=== PATIENT | female | born 1980 | race Caucasian/White ===

== ENCOUNTER 2018-05-05 09:35 | Outpatient (CLI) | payer MEDICAID, SELFPAY ==
[2018-05-05 09:51] LABS: Abs Immature Grans 0.07 k/cumm (0.0-0.09); Absolute Basophil Count 0.02 k/cumm (0.0-0.2); Absolute Eosinophil Count 0.25 k/cumm (0.0-0.7); Absolute Monocyte Count 0.65 k/cumm (0.11-0.7); Absolute Neutrophil Count 5.65 k/cumm (1.2-6.7); Basophils % 0.2; Eosinophils % 2.7; HCT 42.4 % (36.0-46.0); HGB 14.7 g/dL (12.0-15.5); Immature Grans % 0.8; Lymphocytes % 28.1; Mean Corp. HGB Concentration 34.7 g/dL (32.0-36.0); Mean Corpuscular Volume 95.3 fL (80-95); Mean Platelet Volume 9.8 fL (8.0-11.0); Neutrophils % 61.2; Platelet Count 267 x1000/uL (130-400); RBC 4.45 m/cumm (4.00-5.20); White Blood Cell Count 9.24 k/cumm (4.4-10.8)
[2018-05-05 10:07] LABS: VALPROIC ACID 97.8 ug/mL (50-100)
[2018-05-05 10:08] LABS: ALT 95 U/L (12-78); AST 52 U/L (15-37); Albumin 3.3 g/dL (3.4-5.0); Alkaline Phosphatase 217 U/L (46-116); BUN 8 mg/dL (7-18); Bilirubin, Total 0.2 mg/dL (0.2-1.0); CREATININE 0.87 mg/dL (0.55-1.02); Calcium 8.4 mg/dL (8.5-10.1); Chloride 102 mmol/L (98-107); Glucose 296 mg/dL (70-100); Potassium 3.5 mmol/L (3.5-5.1); Sodium 136 mmol/L (136-145); Total Protein 7.1 g/dL (6.4-8.2)
== END 2018-05-05 09:36 ==
PROVIDERS: PCP Nurse Practitioner; Visit Provider Nurse Practitioner Psychiatric/Mental Health
DX: F25.0 Schizoaffective disorder, bipolar type (principal); Z51.81 Encounter for therapeutic drug level monitoring; Z79.899 Other long term (current) drug therapy
CPT/HCPCS: 36415; 80053; 80164; 85025

== ENCOUNTER 2018-05-24 22:39 | Emergency (ER) | payer MEDICAID, SELFPAY ==
[2018-05-24] VITALS (11 sets, daily range): BP systolic 120–140; BP diastolic 69–80; PULSE 83–111; RESP 13–33; TEMP 36.9; O2SAT 95–98
--- NOTE | 2018-05-24 22:52 | ED.GENADUL_ITS ---
Discharge Plan Disposition Patient Disposition: HOME Condition: Good Discharge Details Chief Complaint: Anxiety Clinical Impression: Anxiety, Schizoaffective disorder Primary Care Provider: Lidia Benson ED Provider: Sid Ash [facility] Meds and New Rx's Prescriptions: Continue aripiprazole [Abilify] 30 MG tablet 30 mg PO DAILY Qty: 30 RF: 5 venlafaxine [Effexor XR] 37.5 MG capsule,extended release 24hr 37.5 mg PO DAILY Qty: 30 RF: 5 pregabalin [Lyrica] 50 mg capsule 50 mg PO BID Qty: 60 RF: 5 levothyroxine 75 MCG tablet 75 mcg PO DAILY RF: 0 topiramate [Topamax] 50 MG tablet 100 mg PO DAILY AM RF: 0 divalproex [Depakote] 500 MG tablet,delayed release (DR/EC) 1,500 mg PO DAILY RF: 0 metformin 500 MG tablet 500 mg PO DAILY RF: 0 Discharge Instructions Additional Instructions: What was observed in the emergency department were not seizures. Your head CT and your laboratory studies and EKG were all fine. You were given Ativan for anxiety and seemed to be better. You should follow-up with your mental health providers and call tomorrow for appointment. Return to ED if problems. Referrals: Lidia Benson [Primary Care Provider] - Medical Decision Making MDM Narrative Medical decision making narrative: Patient with chief complaint of not feeling well. Other than headache, she is unable to tell me anything further. Was on the floor in the waiting room rolling around with what she apparently thinks is a seizure. This clearly was not a seizure. She does have a psychiatric history. She is not suicidal or homicidal. I am going to give her Ativan. I will go ahead and get EKG, labs, head CT and observe. I do not suspect that there is any organic pathology involved here. I think this is all psychiatric in nature. After the patient's blood was drawn she began to arch her back and push herself up on the stretcher. She tried to shake on the stretcher. I went in and told her to stop as these were not seizures. She immediately did stop and asked what they were. I said they appear to be related to anxiety and behavioral. Patient's EKG is normal. Patient's head CT has come back normal. Laboratory studies are unremarkable. Her liver functions are mildly elevated as they have been in the past. Patient is better with Ativan. I did offer to speak to her family but she declined. She is discharged home to follow-up with her mental health provider and primary care. Medical Records Medical records reviewed: Yes I reviewed the patient's medical records. Lab Data Lab results reviewed: Yes I reviewed the patient's lab results. ECG Data Attestation: I personally reviewed and interpreted this ECG (s) as follows: Interpretation: Normal sinus rhythm at 89. Normal axis and intervals. Normal ST segments. HPI - General Adult General Mode of arrival: wheelchair . Date/Time Provider Initiated Documentation: 05/24/18 22:42 . Limitations to Documentation: no limitations . Information obtained by: patient and old records reviewed . HPI Narrative: Patient presents to ED stating she does not feel right. Out in the waiting room, she fell to the floor and was rolling on the ground back-and- forth. People here with her felt that she was having a seizure. She does not have a history of seizures. On the camera, I was able to see her in the waiting room and did not witness seizure-like activity. She stopped when spoken to. She sat up in the wheelchair without difficulty. She has not been postictal at all. She did not bite her tongue. She was not incontinent of urine. She does have a long psychiatric history. She denies being suicidal or homicidal. She denies any drugs, prescription or illicit, today other than what she is supposed to take. She denies any injury or illness. She is not able to elaborate to me as to what does not feel right. The only thing that she physically complains of a headache. Related Data Home Medications Medication Instructions Recorded Confirmed levothyroxine 75 mcg PO DAILY 03/15/16 05/24/18 topiramate [Topamax] 100 mg PO DAILY AM 01/21/17 05/24/18 divalproex [Depakote] 1,500 mg PO DAILY 08/18/17 05/24/18 metformin 500 mg PO DAILY 09/20/17 05/24/18 Previous Rx's Medication Instructions Recorded aripiprazole [Abilify] 30 mg PO DAILY #30 tab-cap 11/29/17 venlafaxine [Effexor XR] 37.5 mg PO DAILY #30 tab-cap 04/10/18 pregabalin 50 mg capsule 50 mg PO BID #60 cap 05/22/18 Allergies Allergy/AdvReac Type Severity Reaction Status Date / Time codeine Allergy Mild Unverified 05/25/18 00:11 gabapentin AdvReac Mild RESTLESS Unverified 05/25/18 00:11 LEGS General Stated Complaint: Anxiety CECILIA: 3 Review of Systems Constitutional Denies chills, Denies fever(s), Reports headache(s) and Denies weakness Eyes Patient denies, Denies loss of vision and Denies eye pain ENT Denies otalgia, Reports headache(s) and Denies sore throat Cardiovascular Denies chest pain, Denies syncope, Denies pedal edema and Denies dyspnea Respiratory Denies cough and Denies dyspnea Gastrointestinal Denies abdominal pain, Denies diarrhea, Denies nausea and Denies vomiting Genitourinary Denies hematuria and Denies dysuria Musculoskeletal Denies back pain, Denies myalgias, Denies arthralgias and Denies numbness Integumentary/Breasts Denies erythema and Denies rash Neurologic Denies abnormal speech, Denies confusion, Denies syncope, Reports headache(s), Denies focal weakness, Denies loss of vision, Denies numbness and Denies weakness Psychiatric Denies confusion, Denies auditory hallucinations, Denies visual hallucinations, Denies homicidal ideation and Denies suicidal ideation PFSH Family History Mother Diabetes Father Heart disease Medical History Anovulatory bleeding Enteritis Schizoaffective disorder Type 2 diabetes mellitus Social History Smoking/Tobacco Use Status: Former Tobacco Use Surgical History Ligation of fallopian tube Exam Const General: cooperative and no acute distress Nutritional Appearance: obese Orientation: alert and oriented x3 HENMT Head: normocephalic, atraumatic, no hematomas and no lacerations Ears: external ears normal Face and sinus: normal facial exam Eyes Pupils: PERRL EOM: EOM intact bilaterally Resp Effort & Inspection: normal respiratory effort Auscultation: clear to auscultation bilaterally Cardio Rate: regular rate Rhythm: regular rhythm Heart Sounds: S1 normal and S2 normal Pulses: normal peripheral pulses GI Inspection: non-distended Palpation: soft, no guarding and nontender Skin Rashes: no rashes Trauma: no lacerations or abrasions Neuro General: alert, oriented x3, moves all extremities, no focal motor deficits and CN's II-XI intact bilaterally Sensory Exam: no sensory deficits noted Extrem General: normal to inspection, no clubbing, no cyanosis and no edema Psych Appearance: grossly normal Speech and Movement: speech and movement normal Attitude: cooperative Thought Process: normal Thought Content: normal Course Vital Signs Temperature 98.4 F 05/24/18 22:48 Pulse 96 H 05/24/18 22:48 Respiratory Rate 20 05/24/18 22:48 Blood Pressure 140/80 05/24/18 22:48 Pulse Oximetry 98 05/24/18 22:48 Temperature 98.4 F 05/24/18 22:48 Pulse 96 H 05/24/18 22:48 Respiratory Rate 20 05/24/18 22:48 Blood Pressure 140/80 05/24/18 22:48 Pulse Oximetry 98 05/24/18 22:48
[2018-05-24 23:02] LABS: Absolute Basophil Count 0.02 k/cumm (0.0-0.2); Absolute Eosinophil Count 0.16 k/cumm (0.0-0.7); Absolute Lymphocyte Count 3.35 k/cumm (1.2-3.4); Absolute Monocyte Count 0.65 k/cumm (0.11-0.7); Absolute Neutrophil Count 5.06 k/cumm (1.2-6.7); Basophils % 0.2; Eosinophils % 1.7; HCT 43.2 % (36.0-46.0); Immature Grans % 1.1; Lymphocytes % 35.9; Mean Corp. HGB Concentration 34.7 g/dL (32.0-36.0); Mean Corpuscular Hemoglobin 32.9 pg (27.0-33.0); Mean Corpuscular Volume 94.7 fL (80-95); Neutrophils % 54.1; Platelet Count 279 x1000/uL (130-400); RBC 4.56 m/cumm (4.00-5.20); RBC Distribution Width 11.9 % (11.7-14.6); White Blood Cell Count 9.34 k/cumm (4.4-10.8)
[2018-05-24] MEDS: LORazepam 1 MG TAB PO (23:12)
[2018-05-24 23:15] LABS: Bilirubin Negative (Negative); Blood Negative (Negative); Clarity Sl Cloudy; Glucose 500 mg/dL (Negative); Ketones 15 mg/dL (Negative); Leukocyte Esterase Negative (Negative); Nitrite Negative (Negative); Specific Gravity 1.025 (1.005-1.025); pH 6.5 (5-8)
[2018-05-24 23:15] LABS: ALT 88 U/L (12-78); AST 59 U/L (15-37); Albumin 3.4 g/dL (3.4-5.0); Alkaline Phosphatase 157 U/L (46-116); BUN 9 mg/dL (7-18); Bilirubin, Total 0.2 mg/dL (0.2-1.0); CREATININE 0.83 mg/dL (0.55-1.02); Calcium 8.5 mg/dL (8.5-10.1); Chloride 101 mmol/L (98-107); Glucose 222 mg/dL (70-100); Potassium 3.5 mmol/L (3.5-5.1); Sodium 138 mmol/L (136-145); Total Protein 7.6 g/dL (6.4-8.2); VALPROIC ACID 94.1 ug/mL (50-100)
--- NOTE | 2018-05-24 23:25 | DI.CT_ITS ---
SYMPTOM/DIAGNOSIS: HEADACHE NONCONTRAST HEAD CT: A noncontrast enhanced examination was performed. There is no evidence of an intra/extra-axial hemorrhage, mass or edema. The ventricles are normal. There is no skull fracture. The sinuses and mastoid air cells are normal. The soft tissues are normal. IMPRESSION: No evidence of an acute intracranial abnormality.
[2018-05-24 23:33] LABS: ETHANOL BLOOD < 3.0 mg/dL (<3)
[2018-05-24 23:40] LABS: *AMPHETAMINES SCREEN URINE Negative (Negative); *BARBITURATES SCREEN URINE Negative (Negative); *BENZODIAZEPINES SCREEN URINE Negative (Negative); Cannabinoids THC Negative (Negative); Cocaine Screen,Urine Negative (Negative); METHADONE URINE SCREEN Negative (Negative); OPIATES URINE SCREEN Negative (Negative)
[2018-05-24 23:43] LABS: Tricyclic Antidepressants Negative (Negative)
[2018-05-25] VITALS: PULSE 94; RESP 15; O2SAT 97
--- NOTE | 2018-05-25 00:05 | DI.VRAD_ITS ---
EXAM: CT Head Without Intravenous Contrast EXAM DATE/TIME: 05/24/2018 10:56 PM CLINICAL HISTORY: 37 years old, female; Pain; Headache; Headache not specified TECHNIQUE: Axial computed tomography images of the head/brain without intravenous contrast. All CT scans at this facility use at least one of these dose optimization techniques: automated exposure control; mA and/or kV adjustment per patient size (includes targeted exams where dose is matched to clinical indication); or iterative reconstruction. Coronal and sagittal reformatted images were created and reviewed. COMPARISON: No relevant prior studies available. FINDINGS: Brain: Normal. No hemorrhage. No significant white matter disease. No edema. Ventricles: Normal. No ventriculomegaly. Bones/joints: Normal. No acute fracture. Sinuses: Normal as visualized. No acute sinusitis. Mastoid air cells: Normal as visualized. No mastoid effusion. Soft tissues: Normal. IMPRESSION: No acute findings. Dictated and Authenticated by: Phil Watson MD. Ordering:SLY GARCIA MD
[2018-05-25 00:15] VITALS: TEMP 36.6
== END 2018-05-25 00:18 | disposition home or self-care (01) ==
PROVIDERS: Emergency Provider Emergency Medicine; PCP Nurse Practitioner
DX: F25.9 Schizoaffective disorder, unspecified (principal); F41.9 Anxiety disorder, unspecified; E11.9 Type 2 diabetes mellitus without complications; Z79.84 Long term (current) use of oral hypoglycemic drugs
CPT/HCPCS: 36415; 80053; 80307; 81025; 93005; 99285; 70450; 80164; 80320; 81003; 85025; 93010; 99284

== ENCOUNTER 2018-06-07 10:57 | Outpatient (CLI) | payer MEDICAID, SELFPAY ==
[2018-06-07 11:26] LABS: Platelet Count 262 x1000/uL (130-400)
[2018-06-07 11:27] LABS: VALPROIC ACID 52.8 ug/mL (50-100)
[2018-06-07 13:28] LABS: ALT 130 U/L (12-78); AST 175 U/L (15-37); Albumin 3.7 g/dL (3.4-5.0); Alkaline Phosphatase 200 U/L (46-116); Bilirubin, Direct 0.06 mg/dL (0.00-0.20); Bilirubin, Total 0.3 mg/dL (0.2-1.0); Total Protein 7.4 g/dL (6.4-8.2)
== END 2018-06-07 11:17 ==
PROVIDERS: PCP Nurse Practitioner; Visit Provider Nurse Practitioner
DX: F31.9 Bipolar disorder, unspecified (principal); F41.9 Anxiety disorder, unspecified; Z51.81 Encounter for therapeutic drug level monitoring; Z79.899 Other long term (current) drug therapy
CPT/HCPCS: 36415; 80076; 80164; 85049

== ENCOUNTER 2018-06-07 17:49 | Outpatient (REF) | payer MEDICAID, SELFPAY ==
[2018-06-07 19:57] LABS: COMMENT (LAB VIEW ONLY) 26.45 mg/dL; Microalb ug/mg Crea 9.1 ug/mg Cr
== END 2018-06-07 18:09 ==
LOC: NCHCN 17:49
PROVIDERS: PCP Nurse Practitioner; Visit Provider Nurse Practitioner
DX: E11.9 Type 2 diabetes mellitus without complications (principal)
CPT/HCPCS: 82043; 82570

== ENCOUNTER 2018-08-31 00:28 | Outpatient (CLI) | payer MEDICAID, SELFPAY ==
--- NOTE | 2018-08-31 09:30 | DI.MAMMO_ITS ---
SYMPTOM/DIAGNOSIS: LT BREAST PAIN, M64.4, ASYMMETRICAL BREASTS, N64.89 MAMMOGRAMS: Mammograms were interpreted according to the usual protocol including computer analysis with CAD system, tomosynthesis and C view imaging. The right breast tissue is of moderate radiodensity. There is no dominant mass. There are no suspicious calcifications. At the time the mammograms were performed, the work station was not operative and as an alternative maneuver, a right breast ultrasound was carried out to rule out the possibility of a gross lesion in this extremely anxious patient. The ultrasound report is dictated out separately. Evaluation of the left breast today with craniocaudad and mediolateral projections was carried out. An implant is noted in place. There is no definite evidence of an implant rupture. Only a portion of the implant is seen on today's examination. There is no dominant mass. There are no suspicious calcifications and nothing specific to suggest a malignancy. IMPRESSION: RIGHT BREAST: Category 2. Breast density, category B. Follow up surveillance with annual screening mammography is recommended. LEFT BREAST: Patient with a history of implant rupture with no evidence of extravasation or rupture on today's images. There is no evidence of a neoplasm. Category 2. Follow up surveillance with annual screening mammography is suggested. In terms of further evaluation of the status of the implant in this patient, further assessment with MRI would be of value. If recent or prior MRI's are extant,. then comparison with the previous study or studies is suggested as well. MQSA ASSESSMENT OF FINDINGS: Negative with benign findings. Category 2. Patient will receive a letter notifying them of these results. BI-RADS category B. There are scattered areas of fibroglandular density.
--- NOTE | 2018-08-31 09:42 | DI.US_ITS ---
SYMPTOM/DIAGNOSIS: LT BREAST PAIN, N64.4, FOCAL, MEDIAL AT 8 O'CLOCK. H/O DEFLATED LT BREAST SALINE IMPLANT ULTRASOUND LEFT BREAST: The examination was carried out according to the usual protocol. There are a number of small cysts involving the medial inferior segment of the breast. These include cysts measuring 5 x 3 mm and 3 x 4 mm and 5 x 5 mm. In addition, there is a 2 x 3 mm calcification lying between 8 and 8:30 in the inferomedial portion of the breast approximately 7 cm laterally and 5 cm inferiorly. Otherwise, the breast tissue is acoustically unremarkable. SUMMARY: There are small breast cysts and a small calcification is identified as described above. There is no definite evidence of a solid mass and nothing specific on the ultrasound examination to suggest a malignancy. This examination will be correlated with the follow up mammographic study with issuance of a separate report.
== END 2018-08-31 00:48 ==
PROVIDERS: PCP Nurse Practitioner; Visit Provider Nurse Practitioner
DX: N64.4 Mastodynia (principal); N60.12 Diffuse cystic mastopathy of left breast; N64.89 Other specified disorders of breast; Z98.82 Breast implant status
CPT/HCPCS: 76642; 77062; 77066; G0279

== ENCOUNTER 2018-08-31 20:39 | Emergency (ER) | payer MEDICAID, SELFPAY ==
[2018-08-31 20:55] VITALS: BP 97/83; PULSE 94; RESP 16; TEMP 36.6; O2SAT 96
--- NOTE | 2018-08-31 21:07 | ED.GENADUL_ITS ---
Discharge Plan Disposition Patient Disposition: HOME Condition: Good Discharge Details Chief Complaint: Suicide-Atempt Clinical Impression: Adjustment disorder Primary Care Provider: Lidia Benson ED Provider: Sid Ash [place] Meds and New Rx's Prescriptions: Continued aripiprazole [Abilify] 30 MG tablet 30 mg PO DAILY Qty: 30 RF: 5 Lyrica 50 mg capsule 50 mg PO BID Qty: 60 RF: 5 levothyroxine 75 MCG tablet 75 mcg PO DAILY RF: 0 divalproex [Depakote] 500 MG tablet,delayed release (DR/EC) 1,500 mg PO DAILY RF: 0 metformin 500 MG tablet 500 mg PO DAILY RF: 0 Discharge Instructions Additional Instructions: Please stay with your friend amber. Follow-up with mental health in the morning. Return to ED for any unsafe feelings or concerns. Referrals: [facility] [Provider Group] Medical Decision Making Patient here for mental health evaluation. She has no abrasions or lacerations from trying to cut herself. She denies any ingestions. She does not appear to be intoxicated and has a normal mental status. She states that she got overwhelmed not depressed. She will not answer me whether she is still suicidal or not, says that it is complicated. We will have mental health evaluate. She has a patient observer signed and is on suicide precautions. Will check EKG and laboratory studies including a Depakote level to see whether she is taking or not. Patient's laboratory studies are unremarkable. Her blood sugar is a little high at 277. Liver function baseline. Tylenol and aspirin negative. Alcohol negative. Valproic acid level a little bit high at 116. EKG is sinus rhythm with normal axis and intervals and no prolonged QT. She has been evaluated by mental health. She is reporting that she is no longer suicidal. She feels safe. Plan will be for discharge to stay with a friend amber. Follow-up with mental health in the morning. Return to ED for any unsafe feelings or problems. Lab Data Lab results reviewed: Yes I reviewed the patient's lab results. ECG Data Attestation: I personally reviewed and interpreted this ECG (s) as follows: Prior ECG tracings: available for review Interpretation: Sinus rhythm at 84. No change from previous. Normal axis and intervals. HPI General Mode of arrival: ambulatory . Date/Time Provider Initiated Documentation: 08/31/18 21:05 . Limitations to Documentation: no limitations . Information obtained by: patient . HPI Narrative: Patient presents to the ED for mental health evaluation. She has a known mental health problem but has been relatively stable for the last few months. She had a good holiday. However, today she became overwhelmed and feels suicidal. She tried cutting her wrists with a very dull knife. She denies any ingestions. She denies drugs or alcohol. She has no physical complaints of. Mental health actually notified us of her coming in and is already here to see her. Related Data Home Medications Medication Instructions Recorded Confirmed levothyroxine 75 mcg PO DAILY 03/15/16 08/31/18 divalproex [Depakote] 1,500 mg PO DAILY 08/18/17 08/31/18 metformin 500 mg PO DAILY 09/20/17 08/31/18 aripiprazole [Abilify] 30 mg PO DAILY #30 tab-cap 11/29/17 08/31/18 pregabalin 50 mg capsule 50 mg PO BID #60 cap 05/22/18 08/31/18 Previous Rx's Medication Instructions Recorded aripiprazole [Abilify] 30 mg PO DAILY #30 tab-cap 11/29/17 pregabalin 50 mg capsule 50 mg PO BID #60 cap 05/22/18 Allergies Allergy/AdvReac Type Severity Reaction Status Date / Time codeine Allergy Mild Unverified 05/25/18 00:11 gabapentin AdvReac Mild RESTLESS Unverified 05/25/18 00:11 LEGS General Stated Complaint: Recheck CECILIA: 2 Review of Systems Constitutional Denies chills, Denies fever(s) and Denies headache(s) ENT Denies otalgia, Denies facial pain, Denies headache(s), Denies neck pain and Denies sore throat Cardiovascular Denies chest pain, Denies syncope, Denies palpitations and Denies dyspnea Respiratory Denies cough and Denies dyspnea Gastrointestinal Denies abdominal pain, Denies diarrhea, Denies nausea and Denies vomiting Genitourinary Denies dysuria and Denies pelvic pain Musculoskeletal Denies back pain, Denies neck pain and Denies numbness Integumentary/Breasts Denies rash Neurologic Denies confusion, Denies syncope, Denies headache(s) and Denies numbness Psychiatric Denies confusion, Reports depression, Denies hallucinations and Reports suicidal ideation Endocrine Denies palpitations [facility] Medical History Anovulatory bleeding Enteritis Schizoaffective disorder Type 2 diabetes mellitus Surgical History Ligation of fallopian tube Family History Mother Diabetes Father Heart disease Social History Smoking/Tobacco Use Status: Current every day Exam Const General: cooperative and no acute distress Orientation: alert and oriented x3 HENMT Head: normocephalic and atraumatic Mouth: moist mucous membranes Neck Neck: trachea midline and supple Resp Effort & Inspection: normal respiratory effort Auscultation: clear to auscultation bilaterally Cardio Rate: regular rate Rhythm: regular rhythm Heart Sounds: S1 normal and S2 normal GI Inspection: normal to inspection and non-distended Palpation: soft and nontender Skin General skin exam: no rashes or lesions noted Neuro General: alert, oriented x3, no focal motor deficits and CN's II-XI intact bilaterally Extrem General: no clubbing, cyanosis or edema Psych Appearance: grossly normal Mental Status: mental status grossly normal Speech and Movement: speech and movement normal Mood: dysthymic mood Affect: blunted Attitude: cooperative Thought Process: normal Thought Content: suicidality Course Vital Signs Temperature 97.8 F 08/31/18 20:55 Pulse 94 H 08/31/18 20:55 Respiratory Rate 16 08/31/18 20:55 Blood Pressure 97/83 L 08/31/18 20:55 Pulse Oximetry 96 08/31/18 20:55 Temperature 97.8 F 08/31/18 20:55 Temperature Source Temporal Artery Scan 08/31/18 20:55 Pulse 94 H 08/31/18 20:55 Respiratory Rate 16 08/31/18 20:55 Respiratory Effort 08/31/18 20:55 Blood Pressure 97/83 L 08/31/18 20:55 Pulse Oximetry 96 08/31/18 20:55 Oxygen Delivery Method Room Air 08/31/18 20:55 Oxygen Flow Rate 0 08/31/18 20:55 Pain Level 0 08/31/18 20:55
[2018-08-31 21:48] LABS: HCT 43.6 % (36.0-46.0); HGB 15.1 g/dL (12.0-15.5); Mean Corp. HGB Concentration 34.6 g/dL (32.0-36.0); Mean Corpuscular Hemoglobin 33.8 pg (27.0-33.0); Mean Corpuscular Volume 97.5 fL (80-95); Mean Platelet Volume 9.7 fL (8.0-11.0); Platelet Count 276 x1000/uL (130-400); RBC 4.47 m/cumm (4.00-5.20); RBC Distribution Width 12.1 % (11.7-14.6); White Blood Cell Count 9.36 k/cumm (4.4-10.8)
[2018-08-31 21:52] LABS: VALPROIC ACID 116.4 ug/mL (50-100)
[2018-08-31 21:54] LABS: ALT 101 U/L (12-78); AST 36 U/L (15-37); Albumin 3.3 g/dL (3.4-5.0); Alkaline Phosphatase 229 U/L (46-116); Anion Gap 12.3 mmol/L (3-11); BUN 16 mg/dL (7-18); Bilirubin, Total 0.2 mg/dL (0.2-1.0); CO2 26.7 mmol/L (21.0-32.0); CREATININE 0.65 mg/dL (0.55-1.02); Calcium 9.1 mg/dL (8.5-10.1); Chloride 97 mmol/L (98-107); Glucose 277 mg/dL (70-100); Potassium 3.7 mmol/L (3.5-5.1); Sodium 136 mmol/L (136-145); Total Protein 7.3 g/dL (6.4-8.2)
[2018-08-31 22:00] LABS: Salicylate 2.9 mg/dL (2.8-20.0)
[2018-08-31 22:06] LABS: Acetaminophen < 2 ug/mL (10-30)
[2018-08-31 22:08] LABS: ETHANOL BLOOD < 3.0 mg/dL (<3)
--- NOTE | 2018-08-31 22:59 | PDOC.MHCN ---
Mental Health Crisis Note Presenting Issue How did you arrive at the ED and why did you come: Patient's sister drives her to the ER because patient is suicidal. Precipitating Factors Patient reports feeling better once at the hospital. She states she was feeling suicidal while at her apartment but is unable to identify a trigger. She reports having people around is helpful to her and after being at [facility] for a couple of hours, she reports no longer being suicidal. Disposition BEHAVIOR: Cooperative. EYE CONTACT: Good. MOOD: Depressed. AFFECT: Flat. APPETITE: Reported as poor. SLEEP(trouble falling/staying asleep: Good, per patient. Plan After consulting with Dr. Ash, the decision is made to discharge patient home. Patient contracts for safety and agrees to spend the remainder of the night with her neighbor, so he can keep her company and watch over her. Both patient and her neighbor know how to contact [facility] emergency services and they will call as needed. Patient's MANAGER PRINT case planner will follow-up with her in the morning.
--- NOTE | 2018-08-31 23:06 | PDOC.MHCN_ITS ---
Mental Health Crisis Note Presenting Issue How did you arrive at the ED and why did you come: Patient's sister drives her to the ER because patient is suicidal. Precipitating Factors Patient reports feeling better once at the hospital. She states she was feeling suicidal while at her apartment but is unable to identify a trigger. She reports having people around is helpful to her and after being at [facility] for a couple of hours, she reports no longer being suicidal. Disposition BEHAVIOR: Cooperative. EYE CONTACT: Good. MOOD: Depressed. AFFECT: Flat. APPETITE: Reported as poor. SLEEP(trouble falling/staying asleep: Good, per patient. Plan After consulting with Dr. Ash, the decision is made to discharge patient home. Patient contracts for safety and agrees to spend the remainder of the night with her neighbor, so he can keep her company and watch over her. Both patient and her neighbor know how to contact [facility] emergency services and they will call as needed. Patient's MAIL CLERK clinical case manager will follow-up with her in the morning.
[2018-08-31 23:15] VITALS: BP 122/68; PULSE 91; RESP 16; O2SAT 97
[2018-08-31 23:25] LABS: *AMPHETAMINES SCREEN URINE Negative (Negative); *BARBITURATES SCREEN URINE Negative (Negative); *BENZODIAZEPINES SCREEN URINE Negative (Negative); Cannabinoids THC Negative (Negative); Cocaine Screen,Urine Negative (Negative); METHADONE URINE SCREEN Negative (Negative); OPIATES URINE SCREEN Negative (Negative)
[2018-08-31 23:30] LABS: Tricyclic Antidepressants Negative (Negative)
== END 2018-08-31 23:13 | disposition home or self-care (01) ==
PROVIDERS: Emergency Provider Emergency Medicine; PCP Nurse Practitioner
DX: F43.20 Adjustment disorder, unspecified (principal); R45.851 Suicidal ideations; F25.9 Schizoaffective disorder, unspecified; E11.9 Type 2 diabetes mellitus without complications; Z79.84 Long term (current) use of oral hypoglycemic drugs
CPT/HCPCS: 80053; 80307; 85027; 93005; 99285; 80164; 80320; 80329; 93010; 99284

== ENCOUNTER 2018-10-21 17:43 | Emergency (ER) | payer MEDICAID, SELFPAY ==
[2018-10-21 17:47] VITALS: BP 142/77; PULSE 102; RESP 16; TEMP 36.8; O2SAT 98
[2018-10-21 19:08] LABS: Abs Immature Grans 0.09 k/cumm (0.0-0.09); Absolute Basophil Count 0.04 k/cumm (0.0-0.2); Absolute Eosinophil Count 0.24 k/cumm (0.0-0.7); Absolute Lymphocyte Count 3.32 k/cumm (1.2-3.4); Absolute Monocyte Count 0.64 k/cumm (0.11-0.7); Basophils % 0.4; Eosinophils % 2.3; HCT 46.2 % (36.0-46.0); HGB 15.8 g/dL (12.0-15.5); Immature Grans % 0.9; Lymphocytes % 31.8; Mean Corp. HGB Concentration 34.2 g/dL (32.0-36.0); Mean Corpuscular Hemoglobin 32.6 pg (27.0-33.0); Mean Corpuscular Volume 95.5 fL (80-95); Mean Platelet Volume 9.6 fL (8.0-11.0); Monocytes % 6.1; Neutrophils % 58.5; Platelet Count 260 x1000/uL (130-400); RBC 4.84 m/cumm (4.00-5.20); RBC Distribution Width 12.1 % (11.7-14.6); White Blood Cell Count 10.43 k/cumm (4.4-10.8)
[2018-10-21 19:12] LABS: Mono Screening Negative (Negative)
[2018-10-21 19:23] LABS: Bilirubin Negative (Negative); Blood Negative (Negative); Clarity Clear; Glucose >=1000 mg/dL (Negative); Ketones 40 mg/dL (Negative); Leukocyte Esterase Negative (Negative); Nitrite Negative (Negative); Urobilinogen 0.2 EU/dL (Up TO 0.2)
[2018-10-21 19:28] LABS: ALT 65 U/L (12-78); AST 17 U/L (15-37); Albumin 3.2 g/dL (3.4-5.0); Alkaline Phosphatase 165 U/L (46-116); Anion Gap 9.9 mmol/L (3-11); BUN 18 mg/dL (7-18); Bilirubin, Total 0.1 mg/dL (0.2-1.0); CO2 27.1 mmol/L (21.0-32.0); CREATININE 0.78 mg/dL (0.55-1.02); Calcium 9.4 mg/dL (8.5-10.1); Chloride 99 mmol/L (98-107); Glucose 248 mg/dL (70-100); Potassium 3.7 mmol/L (3.5-5.1); Sodium 136 mmol/L (136-145); Total Protein 7.6 g/dL (6.4-8.2)
[2018-10-21 19:57] LABS: TSH (W/Ref FT4) 3.11 uIU/mL (0.358-3.74)
--- NOTE | 2018-10-21 20:08 | W.ED.GENAD ---
Discharge Plan Disposition Patient Disposition: HOME Condition: Stable Discharge Details Chief Complaint: GenMedical Clinical Impression: Fatigue, Hyperglycemia due to type 2 diabetes mellitus Primary Care Provider: Lidia Benson ED Provider: Vishal Durán Home Meds and New Rx's Prescriptions: No Action aripiprazole [Abilify] 30 MG tablet 30 mg PO DAILY Qty: 30 RF: 5 Lyrica 50 mg capsule 50 mg PO BID Qty: 60 RF: 5 levothyroxine 75 MCG tablet 75 mcg PO DAILY RF: 0 divalproex [Depakote] 500 MG tablet,delayed release (DR/EC) 1,500 mg PO DAILY RF: 0 metformin 500 MG tablet 500 mg PO DAILY RF: 0 Discharge Instructions Instructions: Fatigue (ED), Diabetic Hyperglycemia (ED) Additional Instructions: Return to the emergency department if you have any new or worsening symptoms otherwise continue to take your medications, avoid sugary foods, and follow-up with your primary care provider within the next week for reassessment. Referrals: Lidia Besnon [Primary Care Provider] - 1 week (For reassessment of fatigue along with any possible medication adjustments as needed) Discharge Data Discharge Date/Time-TO BE ENTERED AT DEPARTURE: 10/21/18 20:34 Medical Decision Making Patient presenting to the emergency department for chief complaint of excess fatigue and sleepiness over the past 2 weeks. Patient denies any pain or discomfort, cold symptoms, hot and cold intolerance, change in diet or medications. Patient does state that she has thyroid issues but her medication has been at a stable level for a while. Physical exam is unremarkable and patient does not appear overly sedate, no neurological findings, normal cardiac exam, normal thyroid. Given patient's history of diabetes and thyroid issue I do feel the labs are warranted but no immediate interventions are needed at this time Reviewed labs and shows no signs of anemia, elevated blood glucose which appears to be at patient's baseline running in the 200s, urine ketones and glucose, no elevation of anion gap or signs of dehydration, within normal limits of thyroid. I feel that all these are reassuring but that patient may need tighter control of blood glucose so patient was encouraged to follow-up with her primary care provider for reassessment and discussion on any medication adjustments as needed. I see no emergent signs of life-threatening illness but return precautions were thoroughly discussed with patient. After discussion of diagnosis and plan of care patient has no further needs, questions, or concerns and states clear understanding to return to the emergency department for any worsening symptoms. HPI General Mode of arrival: ambulatory. Date/Time Provider Initiated Documentation: 10/21/18 17:51. Limitations to Documentation: no limitations. Information obtained by: RN notes reviewed. History of Present Illness 38 year old F presents to the emergency department with the chief complaint of Fatigue, Quality is described as other (Denies pain), Patient started experiencing this week(s) (2) Patient notes no other symptoms.. Patient did receive the following treatments prior to arrival, none Related Data Home Medications Medication Instructions Recorded Confirmed levothyroxine 75 mcg PO DAILY 03/15/16 08/31/18 divalproex [Depakote] 1,500 mg PO DAILY 08/18/17 08/31/18 metformin 500 mg PO DAILY 09/20/17 08/31/18 aripiprazole [Abilify] 30 mg PO DAILY #30 tab-cap 11/29/17 08/31/18 pregabalin 50 mg capsule 50 mg PO BID #60 cap 05/22/18 08/31/18 Previous Rx's Medication Instructions Recorded aripiprazole [Abilify] 30 mg PO DAILY #30 tab-cap 11/29/17 pregabalin 50 mg capsule 50 mg PO BID #60 cap 05/22/18 Allergies Allergy/AdvReac Type Severity Reaction Status Date / Time codeine Allergy Mild Unverified 05/25/18 00:11 gabapentin AdvReac Mild RESTLESS Unverified 05/25/18 00:11 LEGS General Stated Complaint: GenMedical CECILIA: 5 Review of Systems Constitutional Denies body ache(s), Denies chills, Reports daytime sleepiness, Reports fatigue, Denies fever(s) and Denies headache(s) ENT Denies headache(s) Cardiovascular Denies chest pain, Denies palpitations and Denies dyspnea Respiratory Denies dyspnea Gastrointestinal Denies abdominal pain, Denies nausea and Denies vomiting Integumentary/Breasts Denies rash Neurologic Denies confusion, Denies headache(s), Denies lack of coordination and Denies sensory deficit Psychiatric Denies confusion Endocrine Denies cold intolerance, Reports fatigue, Denies heat intolerance, Denies polyphagia, Denies polydipsia, Reports polyuria and Denies palpitations [facility] Medical History Anovulatory bleeding Enteritis Schizoaffective disorder Type 2 diabetes mellitus Surgical History Ligation of fallopian tube Family History Mother Diabetes Father Heart disease Social History Smoking and Tabacco status: Current every day Exam Const General: cooperative, no acute distress and not ill appearing Orientation: alert, awake and oriented x3 HENMT Mouth: moist mucous membranes Eyes General: appearance normal, both eyes and all related structures Pupils: PERRL Neck Neck: normal visual inspection, full ROM, no lymphadenopathy, no meningeal signs, trachea midline and supple Thyroid: thyroid normal Resp Effort & Inspection: normal respiratory effort, able to speak in complete sentences and no respiratory distress Auscultation: clear to auscultation bilaterally Cardio Rate: regular rate Rhythm: regular rhythm Heart Sounds: S1 normal and S2 normal Skin General skin exam: no rashes or lesions noted Neuro General: alert, awake, oriented x3, gait normal, tone normal, moves all extremities, normal light touch, pain and propioception, no focal motor deficits, CN's II-XI intact bilaterally, not confused and not obtunded Sensory Exam: no sensory deficits noted Course Vital Signs Temperature 36.8 C 10/21/18 17:47 Pulse 102 H 10/21/18 17:47 Respiratory Rate 16 10/21/18 17:47 Blood Pressure 142/77 H 10/21/18 17:47 Pulse Oximetry 98 10/21/18 17:47 Temperature 36.8 C 10/21/18 17:47 Pulse 102 H 10/21/18 17:47 Respiratory Rate 16 10/21/18 17:47 Respiratory Effort 10/21/18 17:47 Blood Pressure 142/77 H 10/21/18 17:47 Blood Pressure Position Sitting 10/21/18 17:47 Pulse Oximetry 98 10/21/18 17:47 Oxygen Delivery Method Room Air 10/21/18 17:47 Oxygen Flow Rate 0 10/21/18 17:47 Lab/Test Results Lab/Test Results: Laboratory Tests Range/Units 10/21/18 10/21/18 10/21/18 19:00 19:00 19:00 WBC (4.4-10.8) k/cumm 10.43 RBC (4.00-5.20) m/cumm 4.84 Hgb (12.0-15.5) g/dL 15.8 H Hct (36.0-46.0) % 46.2 H MCV (80-95) fL 95.5 H MCH (27.0-33.0) pg 32.6 MCHC (32.0-36.0) g/dL 34.2 RDW (11.7-14.6) % 12.1 Plt Count (130-400) x1000/uL 260 MPV (8.0-11.0) fL 9.6 Immature Gran % 0.9 Neutrophils % 58.5 Lymphocytes % 31.8 Monocytes % 6.1 Eosinophils % 2.3 Basophils % 0.4 Absolute Neutrophils (1.2-6.7) k/cumm 6.10 Absolute Lymphocytes (1.2-3.4) k/cumm 3.32 Absolute Monocytes (0.11-0.7) k/cumm 0.64 Absolute Eosinophils (0.0-0.7) k/cumm 0.24 Absolute Basophils (0.0-0.2) k/cumm 0.04 Sodium (136-145) mmol/L 136 Potassium (3.5-5.1) mmol/L 3.7 Chloride (98-107) mmol/L 99 Carbon Dioxide (21.0-32.0) mmol/L 27.1 Anion Gap (3-11) mmol/L 9.9 BUN (7-18) mg/dL 18 Creatinine (0.55-1.02) mg/dL 0.78 Estimated GFR/1.73 m2 (mL/min/1.73m2) >= 60.00 Glucose (70-100) mg/dL 248 H Calcium (8.5-10.1) mg/dL 9.4 Total Bilirubin (0.2-1.0) mg/dL 0.1 L AST (15-37) U/L 17 ALT (12-78) U/L 65 Alkaline Phosphatase (46-116) U/L 165 H Total Protein (6.4-8.2) g/dL 7.6 Albumin (3.4-5.0) g/dL 3.2 L TSH (0.358-3.74) uIU/mL 3.11 Urine Color (Yellow) Urine Clarity Urine pH (5-8) Ur Specific [place] (1.005-1.025) Urine Protein (Negative) mg/dL Urine Ketones (Negative) mg/dL Urine Blood (Negative) Urine Nitrite (Negative) Urine Bilirubin (Negative) Urine Urobilinogen (Up TO 0.2) EU/dL Ur Leukocyte Esterase (Negative) Urine Glucose (Negative) mg/dL Monoscreen (Negative) Negative Range/Units 10/21/18 19:08 WBC (4.4-10.8) k/cumm RBC (4.00-5.20) m/cumm Hgb (12.0-15.5) g/dL Hct (36.0-46.0) % MCV (80-95) fL MCH (27.0-33.0) pg MCHC (32.0-36.0) g/dL RDW (11.7-14.6) % Plt Count (130-400) x1000/uL MPV (8.0-11.0) fL Immature Gran % Neutrophils % Lymphocytes % Monocytes % Eosinophils % Basophils % Absolute Neutrophils (1.2-6.7) k/cumm Absolute Lymphocytes (1.2-3.4) k/cumm Absolute Monocytes (0.11-0.7) k/cumm Absolute Eosinophils (0.0-0.7) k/cumm Absolute Basophils (0.0-0.2) k/cumm Sodium (136-145) mmol/L Potassium (3.5-5.1) mmol/L Chloride (98-107) mmol/L Carbon Dioxide (21.0-32.0) mmol/L Anion Gap (3-11) mmol/L BUN (7-18) mg/dL Creatinine (0.55-1.02) mg/dL Estimated GFR/1.73 m2 (mL/min/1.73m2) Glucose (70-100) mg/dL Calcium (8.5-10.1) mg/dL Total Bilirubin (0.2-1.0) mg/dL AST (15-37) U/L ALT (12-78) U/L Alkaline Phosphatase (46-116) U/L Total Protein (6.4-8.2) g/dL Albumin (3.4-5.0) g/dL TSH (0.358-3.74) uIU/mL Urine Color (Yellow) Yellow Urine Clarity Clear Urine pH (5-8) 6.0 Ur Specific [place] (1.005-1.025) 1.010 Urine Protein (Negative) mg/dL Negative Urine Ketones (Negative) mg/dL 40 H Urine Blood (Negative) Negative Urine Nitrite (Negative) Negative Urine Bilirubin (Negative) Negative Urine Urobilinogen (Up TO 0.2) EU/dL 0.2 Ur Leukocyte Esterase (Negative) Negative Urine Glucose (Negative) mg/dL >=1000 H Monoscreen (Negative)
[2018-10-21 20:23] LABS: HCG Qual (Urine) Negative
== END 2018-10-21 20:34 | disposition home or self-care (01) ==
PROVIDERS: Emergency Provider Nurse Practitioner Family; PCP Nurse Practitioner
DX: R53.83 Other fatigue (principal); E11.65 Type 2 diabetes mellitus with hyperglycemia; Z79.84 Long term (current) use of oral hypoglycemic drugs
CPT/HCPCS: 36415; 80053; 99283; 81003; 81025; 84443; 85025; 86308

== ENCOUNTER 2018-10-24 12:49 | Outpatient (CLI) | payer MEDICAID, SELFPAY ==
[2018-10-24 13:39] LABS: VALPROIC ACID 141.6 ug/mL (50-100)
[2018-10-24 14:17] LABS: ALT 68 U/L (12-78); AST 41 U/L (15-37); Albumin 3.4 g/dL (3.4-5.0); Alkaline Phosphatase 148 U/L (46-116); Bilirubin, Direct 0.06 mg/dL (0.00-0.20); Bilirubin, Total 0.2 mg/dL (0.2-1.0); Total Protein 7.7 g/dL (6.4-8.2)
[2018-10-24 14:27] LABS: Cholesterol 247 mg/dL (50-200); Triglyceride 505 mg/dL (30-150)
== END 2018-10-24 13:09 ==
PROVIDERS: Physician Assistant Medical; PCP Nurse Practitioner; Visit Provider Nurse Practitioner
DX: F25.9 Schizoaffective disorder, unspecified (principal); Z51.81 Encounter for therapeutic drug level monitoring; Z79.899 Other long term (current) drug therapy
CPT/HCPCS: 36415; 80076; 80164; 82465; 84478

== ENCOUNTER 2018-11-12 01:12 | Emergency (ER) | payer MEDICAID, SELFPAY ==
[2018-11-12 01:20] VITALS: BP 142/77; PULSE 102; RESP 15; TEMP 36.9; O2SAT 98
--- NOTE | 2018-11-12 01:22 | W.ED.GENAD ---
Discharge Plan Disposition Patient Disposition: HOME Condition: Stable Discharge Details Chief Complaint: Laceration Clinical Impression: Laceration of internal mouth Primary Care Provider: Lidia Benson ED Provider: Matthew Chicas Home Meds and New Rx's Prescriptions: New clindamycin HCl 150 mg capsule 450 mg PO TID 10 Days Qty: 90 RF: 0 No Action Jardiance 25 mg tablet 25 mg PO DAILY RF: 0 gabapentin 300 mg capsule 300 mg PO QHS RF: 0 Lyrica 100 mg capsule 100 mg PO BID Qty: 60 RF: 5 aripiprazole [Abilify] 30 MG tablet 30 mg PO DAILY Qty: 30 RF: 5 levothyroxine 75 MCG tablet 75 mcg PO DAILY RF: 0 divalproex [Depakote] 500 mg tablet,delayed release (DR/EC) 2,000 mg PO DAILY RF: 0 Discharge Instructions Additional Instructions: Because you caused the wound over a day ago sutures were not placed due to the risk of infection for the next week only eat soft foods and protein shakes such as ensure you can take 1000mg tylenol and 600mg ibuprofen for pain as needed have the wound rechecked by your primary care provider in 2 weeks if you feel you are having severe worsening pain, fevers or inability to swallow liquids return to the emergency department Medical Decision Making 38 yo female wih hx of schizophrenia comes in with cc of mouth laceration. She states 2 days ago she got a utensil stuck in a piece of dental hardware she's had for awhile. She pulled to try and get the utensil out and caused a laceration to the left upper roof of her mouth laceration about 2.5cm in length. It is unclear why she finally came in tonight rather than when it happened. There is granulation tissue, no discharge from the wound or other signs of infection. Is not near the posterior pharynx where I feel CTA to eval for carotid injury indicated. Will start her on prophylactic abx. She has had the wound for 2 days so do not feel closure with sutures indicated given risk of infection. Will have her f/u with pcp and return precautions given Differential Diagnosis mouth laceration HPI General Mode of arrival: ambulatory. Date/Time Provider Initiated Documentation: 11/12/18 01:21. Limitations to Documentation: no limitations. Information obtained by: patient. History of Present Illness 38 year old F presents to the emergency department with the chief complaint of mouth laceration, described as moderate, and is localized to the mouth. Patient reports no radiation. Patient started experiencing this day(s) (2) and it has been constant. No relieving factors improve symptom(s), No exacerbating factors reported . Patient notes no other symptoms.. Patient did receive the following treatments prior to arrival, none Related Data Home Medications Medication Instructions Recorded Confirmed levothyroxine 75 mcg PO DAILY 03/15/16 11/12/18 aripiprazole [Abilify] 30 mg PO DAILY #30 tab-cap 11/29/17 11/12/18 divalproex 500 mg tablet,delayed 2,000 mg PO DAILY tab 10/25/18 11/12/18 release empagliflozin 25 mg tablet 25 mg PO DAILY 10/25/18 11/12/18 gabapentin 300 mg capsule 300 mg PO QHS cap 10/25/18 11/12/18 pregabalin 100 mg capsule 100 mg PO BID #60 cap 10/25/18 11/12/18 clindamycin HCl 450 mg PO TID 10 Days #90 cap 11/12/18 Previous Rx's Medication Instructions Recorded aripiprazole [Abilify] 30 mg PO DAILY #30 tab-cap 11/29/17 pregabalin 100 mg capsule 100 mg PO BID #60 cap 10/25/18 clindamycin HCl 450 mg PO TID 10 Days #90 cap 11/12/18 Allergies Allergy/AdvReac Type Severity Reaction Status Date / Time codeine Allergy Mild Unverified 11/12/18 01:27 gabapentin AdvReac Mild RESTLESS Unverified 11/12/18 01:27 LEGS General CECILIA: 5 Review of Systems Review of Systems All systems reviewed & are unremarkable except as noted in HPI and below Constitutional Denies chills and Denies fever(s) ENT Denies change in voice Cardiovascular Denies chest pain and Denies dyspnea Respiratory Denies cough and Denies dyspnea Gastrointestinal Denies abdominal pain, Denies nausea and Denies vomiting Genitourinary Denies dysuria Musculoskeletal Denies joint swelling Integumentary/Breasts Denies rash Endocrine Denies heat intolerance [facility] Medical History Anovulatory bleeding Enteritis Schizoaffective disorder Type 2 diabetes mellitus Surgical History Ligation of fallopian tube Social History number of children: 2 Smoking and Tabacco status: Current every day alcohol intake: never Exam Const General: no acute distress Orientation: alert HENMT Head: normal to inspection Ears: external ears normal General nose exam: external nose normal Mouth: moist mucous membranes Eyes General: appearance normal, both eyes and all related structures Neck Neck: normal visual inspection Resp Effort & Inspection: normal respiratory effort and able to speak in complete sentences Cardio Rate: regular rate Skin General skin exam: no rashes or lesions noted Neuro General: alert and oriented x3 Extrem General: normal to inspection Psych Mental Status: mental status grossly normal
--- NOTE | 2018-11-12 01:30 | ED.GENADUL_ITS ---
Discharge Plan Disposition Patient Disposition: HOME Condition: Stable Discharge Details Chief Complaint: Laceration Clinical Impression: Laceration of internal mouth Primary Care Provider: Lidia Benson ED Provider: Matthew Chicas Home Meds and New Rx's Prescriptions: New clindamycin HCl 150 mg capsule 450 mg PO TID 10 Days Qty: 90 RF: 0 No Action Jardiance 25 mg tablet 25 mg PO DAILY RF: 0 gabapentin 300 mg capsule 300 mg PO QHS RF: 0 Lyrica 100 mg capsule 100 mg PO BID Qty: 60 RF: 5 aripiprazole [Abilify] 30 MG tablet 30 mg PO DAILY Qty: 30 RF: 5 levothyroxine 75 MCG tablet 75 mcg PO DAILY RF: 0 divalproex [Depakote] 500 mg tablet,delayed release (DR/EC) 2,000 mg PO DAILY RF: 0 Discharge Instructions Additional Instructions: Because you caused the wound over a day ago sutures were not placed due to the risk of infection for the next week only eat soft foods and protein shakes such as ensure you can take 1000mg tylenol and 600mg ibuprofen for pain as needed have the wound rechecked by your primary care provider in 2 weeks if you feel you are having severe worsening pain, fevers or inability to swallow liquids return to the emergency department Medical Decision Making 38 yo female wih hx of schizophrenia comes in with cc of mouth laceration. She states 2 days ago she got a utensil stuck in a piece of dental hardware she's had for awhile. She pulled to try and get the utensil out and caused a laceration to the left upper roof of her mouth laceration about 2.5cm in length. It is unclear why she finally came in tonight rather than when it happened. There is granulation tissue, no discharge from the wound or other signs of infection. Is not near the posterior pharynx where I feel CTA to eval for carotid injury indicated. Will start her on prophylactic abx. She has had the wound for 2 days so do not feel closure with sutures indicated given risk of infection. Will have her f/u with pcp and return precautions given Differential Diagnosis mouth laceration HPI General Mode of arrival: ambulatory . Date/Time Provider Initiated Documentation: 11/12/18 01:21 . Limitations to Documentation: no limitations . Information obtained by: patient . History of Present Illness 38 year old F presents to the emergency department with the chief complaint of mouth laceration, described as moderate, and is localized to the mouth. Patient reports no radiation. Patient started experiencing this day(s) (2) and it has been constant. No relieving factors improve symptom(s), No exacerbating factors reported . Patient notes no other symptoms.. Patient did receive the following treatments prior to arrival, none Related Data Home Medications Medication Instructions Recorded Confirmed levothyroxine 75 mcg PO DAILY 03/15/16 11/12/18 aripiprazole [Abilify] 30 mg PO DAILY #30 tab-cap 11/29/17 11/12/18 divalproex 500 mg tablet,delayed 2,000 mg PO DAILY tab 10/25/18 11/12/18 release empagliflozin 25 mg tablet 25 mg PO DAILY 10/25/18 11/12/18 gabapentin 300 mg capsule 300 mg PO QHS cap 10/25/18 11/12/18 pregabalin 100 mg capsule 100 mg PO BID #60 cap 10/25/18 11/12/18 clindamycin HCl 450 mg PO TID 10 Days #90 cap 11/12/18 Previous Rx's Medication Instructions Recorded aripiprazole [Abilify] 30 mg PO DAILY #30 tab-cap 11/29/17 pregabalin 100 mg capsule 100 mg PO BID #60 cap 10/25/18 clindamycin HCl 450 mg PO TID 10 Days #90 cap 11/12/18 Allergies Allergy/AdvReac Type Severity Reaction Status Date / Time codeine Allergy Mild Unverified 11/12/18 01:27 gabapentin AdvReac Mild RESTLESS Unverified 11/12/18 01:27 LEGS General CECILIA: 5 Review of Systems Review of Systems All systems reviewed & are unremarkable except as noted in HPI and below Constitutional Denies chills and Denies fever(s) ENT Denies change in voice Cardiovascular Denies chest pain and Denies dyspnea Respiratory Denies cough and Denies dyspnea Gastrointestinal Denies abdominal pain, Denies nausea and Denies vomiting Genitourinary Denies dysuria Musculoskeletal Denies joint swelling Integumentary/Breasts Denies rash Endocrine Denies heat intolerance [facility] Medical History Anovulatory bleeding Enteritis Schizoaffective disorder Type 2 diabetes mellitus Surgical History Ligation of fallopian tube Social History number of children: 2 Smoking and Tabacco status: Current every day alcohol intake: never Exam Const General: no acute distress Orientation: alert HENMT Head: normal to inspection Ears: external ears normal General nose exam: external nose normal Mouth: moist mucous membranes Eyes General: appearance normal, both eyes and all related structures Neck Neck: normal visual inspection Resp Effort & Inspection: normal respiratory effort and able to speak in complete sentences Cardio Rate: regular rate Skin General skin exam: no rashes or lesions noted Neuro General: alert and oriented x3 Extrem General: normal to inspection Psych Mental Status: mental status grossly normal
[2018-11-12] MEDS: Clindamycin 150 MG CAP 450 MG PO (01:38)
[2018-11-12 01:39] VITALS: BP 142/77; PULSE 102; RESP 15; TEMP 36.9; O2SAT 98
[2018-11-12] MEDS: Acetaminophen 500 MG TAB (01:47)
[2018-11-12] MEDS: Ibuprofen 600 MG TAB (01:47)
--- NOTE | 2018-11-13 08:08 | PDOC.ERCMPRO ---
Care Management Progress Note 11/13-Dr. Chicas requested assistance with a PCP (Kelley) f/u in two days for oral laceration. Referral faxed to [facility].
== END 2018-11-12 01:45 | disposition home or self-care (01) ==
PROVIDERS: Emergency Provider Emergency Medicine; PCP Nurse Practitioner
DX: S01.512A Laceration without foreign body of oral cavity, initial encounter (principal); W45.8XXA Other foreign body or object entering through skin, initial encounter
CPT/HCPCS: 90471; 99282

== ENCOUNTER 2018-11-29 10:53 | Outpatient (CLI) | payer MEDICAID, SELFPAY ==
[2018-11-29 11:28] LABS: VALPROIC ACID 26.1 ug/mL (50-100)
== END 2018-11-29 11:13 ==
PROVIDERS: PCP Nurse Practitioner; Visit Provider Nurse Practitioner
DX: Z79.899 Other long term (current) drug therapy (principal); Z51.81 Encounter for therapeutic drug level monitoring; F25.8 Other schizoaffective disorders
CPT/HCPCS: 36415; 80164

== ENCOUNTER 2018-11-30 23:35 | Emergency (ER) | payer MEDICAID, SELFPAY ==
[2018-11-30 23:40] VITALS: PULSE 119; RESP 18; TEMP 36.7; O2SAT 95
--- NOTE | 2018-12-01 00:03 | W.ED.GENAD ---
Discharge Plan Disposition Patient Disposition: HOME Condition: Good Discharge Details Chief Complaint: Abd Prob Clinical Impression: Atypical chest pain, Intermittent abdominal pain Primary Care Provider: Lidia Benson ED Provider: Sid Ash [place] Meds and New Rx's Prescriptions: Continued Jardiance 25 mg tablet 25 mg PO DAILY RF: 0 gabapentin 300 mg capsule 300 mg PO QHS RF: 0 Lyrica 100 mg capsule 100 mg PO BID Qty: 60 RF: 5 aripiprazole [Abilify] 30 MG tablet 30 mg PO DAILY Qty: 30 RF: 5 levothyroxine 75 MCG tablet 75 mcg PO DAILY RF: 0 divalproex [Depakote] 500 mg tablet,delayed release (DR/EC) 2,000 mg PO DAILY RF: 0 ibuprofen 600 mg tablet 600 mg PO QID PRN (Reason: pain) Qty: 30 RF: 0 Discharge Instructions Instructions: Chest Pain (ED), Abdominal Pain (ED) Additional Instructions: Workup is unremarkable. Labs and x-ray look okay. Follow-up with primary care next week if continued symptoms. Return to emergency department if you develop a fever, vomiting, persistent shortness of breath, new or worsening chest pain, new persistent abdominal pain. Referrals: Lidia Benson [Primary Care Provider] - Medical Decision Making Patient arrives complaining of intermittent abdominal pain. Her abdomen is completely benign. She has had multiple previous ED visits for abdominal complaints. In interviewing the patient she also complains of chest pain which she describes as substernal. That has been constant for couple of days. I am not overly concerned with either complaint given my dealings with this patient from the past. However, she is tachycardic and that I cannot explain. Therefore, we will initiate workup with laboratory studies, chest x-ray, abdominal x-ray. EKG is obtained and besides tachycardia with PVC there were no significant abnormalities. 02:00 -laboratory studies unremarkable other than white count being elevated to 14. Mild transaminitis is not a new problem for patient. Troponin is negative. D-dimer is negative. Chest and abdominal x-ray per my review unremarkable. No evidence of pneumothorax or pneumonia. No evidence of free air or obstruction. Patient has been fine here. Heart rate is come down below 100 with fluids. Patient will be discharged home to follow-up with primary care next week as needed if continued symptoms. Return to ED for fever, persistent shortness of breath, new or worsening pain. Medical Records Medical records reviewed: Yes I reviewed the patient's medical records. Lab Data Lab results reviewed: Yes I reviewed the patient's lab results. ECG Data Attestation: I personally reviewed and interpreted this ECG (s) as follows: Prior ECG tracings: not available for review Interpretation: Sinus tachycardia at 104 with 1 PVC. Normal axis and intervals. No acute ST changes. HPI General Mode of arrival: ambulatory. Date/Time Provider Initiated Documentation: 12/01/18 00:00. Limitations to Documentation: no limitations. Information obtained by: patient and old records reviewed. HPI Narrative: Patient presents to ED with complaints of intermittent abdominal pain and bloating. Symptoms have been ongoing for a few days. She has a previous history of visits to ED for multiple GI complaints. She tells me tonight that this is different. She has had no fevers or chills. She has had no vomiting or diarrhea. She continues to eat and drink normally. She has no back pain. She has no urinary symptoms. She does complain of substernal chest pain which has been present constantly for 2 days. She states she occasionally feels short of breath with this. The abdominal pain is currently not present. The chest pain currently is present. Related Data Home Medications Medication Instructions Recorded Confirmed levothyroxine 75 mcg PO DAILY 03/15/16 11/30/18 aripiprazole [Abilify] 30 mg PO DAILY #30 tab-cap 11/29/17 11/30/18 divalproex 500 mg tablet,delayed 2,000 mg PO DAILY tab 10/25/18 11/30/18 release empagliflozin 25 mg tablet 25 mg PO DAILY 10/25/18 11/30/18 gabapentin 300 mg capsule 300 mg PO QHS cap 10/25/18 11/30/18 pregabalin 100 mg capsule 100 mg PO BID #60 cap 10/25/18 11/30/18 ibuprofen 600 mg PO QID PRN #30 tab 11/12/18 11/30/18 Previous Rx's Medication Instructions Recorded aripiprazole [Abilify] 30 mg PO DAILY #30 tab-cap 11/29/17 pregabalin 100 mg capsule 100 mg PO BID #60 cap 10/25/18 ibuprofen 600 mg PO QID PRN #30 tab 11/12/18 Allergies Allergy/AdvReac Type Severity Reaction Status Date / Time codeine Allergy Mild Unverified 11/30/18 23:44 General Stated Complaint: Abd Prob CECILIA: 3 Review of Systems Review of Systems 06/18 Review of Systems completed and is negative except as stated above in HPI (Systems reviewed: Const, Eyes, ENT, Resp, CV, GI, , MSK, Skin, Neuro) [facility] Medical History Trigeminal neuralgia of left side of face (Acute 01/03/18) Schizophrenia (Chronic) History of hypothyroidism (Chronic) Anovulatory bleeding (Chronic) Type 2 diabetes mellitus (Chronic) Surgical History Ligation of fallopian tube (Inactive) Social History Smoking/Tobacco Use Status: Current every day Alcohol Intake: never Drug use: Never Number of Children: 2 Do you feel safe in your relationship?: Yes Exam Narrative Exam Narrative: 1. Const: WDWN female in NAD. 2. Eyes: No conjunctival injection or scleral icterus. 3. ENT: NC/AT. No facial swelling or tenderness. Mucous membranes moist. 4. Neck: Supple without adenopathy. Trachea midline. 5. CVS: +S1/S2, No murmurs or gallops. Radial pulses strong. 6. RESP: Unlabored respiratory effort. Clear to auscultation bilaterally. No wheezes rales or rhonchi. No chest tenderness. 7. GI: Soft, NT/ND, No hepatosplenomegaly. No guarding or rebound. 8. MSK: No C/C/E present. No deformity or tenderness noted. No calf tenderness 9. Skin: Warm, Dry. No rashes. 10. Neuro: A&O x3. 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 Sensation grossly intact, no focal neurologic deficits. 11. Psych: Appropriate mood and affect Course Vital Signs Temperature 98.1 F 11/30/18 23:40 Pulse 119 H 11/30/18 23:40 Respiratory Rate 18 11/30/18 23:40 Pulse Oximetry 95 11/30/18 23:40 Temperature 98.1 F 11/30/18 23:40 Temperature Source Skin 11/30/18 23:40 Pulse 119 H 03/28/19 23:40 Respiratory Rate 18 11/30/18 23:40 Respiratory Effort Non-Labored 11/30/18 23:42 Pulse Oximetry 95 11/30/18 23:40 Pain Level 4 11/30/18 23:40 Lab/Test Results Lab/Test Results: POC- Test(urine) Negative
--- NOTE | 2018-12-01 00:06 | ED.GENADUL_ITS ---
Discharge Plan Disposition Patient Disposition: HOME Condition: Good Discharge Details Chief Complaint: Abd Prob Clinical Impression: Atypical chest pain, Intermittent abdominal pain Primary Care Provider: Lidia Benson ED Provider: Sid Ash [place] Meds and New Rx's Prescriptions: Continued Jardiance 25 mg tablet 25 mg PO DAILY RF: 0 gabapentin 300 mg capsule 300 mg PO QHS RF: 0 Lyrica 100 mg capsule 100 mg PO BID Qty: 60 RF: 5 aripiprazole [Abilify] 30 MG tablet 30 mg PO DAILY Qty: 30 RF: 5 levothyroxine 75 MCG tablet 75 mcg PO DAILY RF: 0 divalproex [Depakote] 500 mg tablet,delayed release (DR/EC) 2,000 mg PO DAILY RF: 0 ibuprofen 600 mg tablet 600 mg PO QID PRN (Reason: pain) Qty: 30 RF: 0 Discharge Instructions Instructions: Chest Pain (ED), Abdominal Pain (ED) Additional Instructions: Workup is unremarkable. Labs and x-ray look okay. Follow-up with primary care next week if continued symptoms. Return to emergency department if you develop a fever, vomiting, persistent shortness of breath, new or worsening chest pain, new persistent abdominal pain. Referrals: Lidia Benson [Primary Care Provider] - Medical Decision Making Patient arrives complaining of intermittent abdominal pain. Her abdomen is completely benign. She has had multiple previous ED visits for abdominal complaints. In interviewing the patient she also complains of chest pain which she describes as substernal. That has been constant for couple of days. I am not overly concerned with either complaint given my dealings with this patient from the past. However, she is tachycardic and that I cannot explain. Therefore, we will initiate workup with laboratory studies, chest x-ray, abdominal x-ray. EKG is obtained and besides tachycardia with PVC there were no significant abnormalities. 02:00 -laboratory studies unremarkable other than white count being elevated to 14. Mild transaminitis is not a new problem for patient. Troponin is negative. D-dimer is negative. Chest and abdominal x-ray per my review unremarkable. No evidence of pneumothorax or pneumonia. No evidence of free air or obstruction. Patient has been fine here. Heart rate is come down below 100 with fluids. Patient will be discharged home to follow-up with primary care next week as needed if continued symptoms. Return to ED for fever, persistent shortness of breath, new or worsening pain. Medical Records Medical records reviewed: Yes I reviewed the patient's medical records. Lab Data Lab results reviewed: Yes I reviewed the patient's lab results. ECG Data Attestation: I personally reviewed and interpreted this ECG (s) as follows: Prior ECG tracings: not available for review Interpretation: Sinus tachycardia at 104 with 1 PVC. Normal axis and intervals. No acute ST changes. HPI General Mode of arrival: ambulatory . Date/Time Provider Initiated Documentation: 12/01/18 00:00 . Limitations to Documentation: no limitations . Information obtained by: patient and old records reviewed . HPI Narrative: Patient presents to ED with complaints of intermittent abdominal pain and bloating. Symptoms have been ongoing for a few days. She has a previous history of visits to ED for multiple GI complaints. She tells me tonight that this is different. She has had no fevers or chills. She has had no vomiting or diarrhea. She continues to eat and drink normally. She has no back pain. She has no urinary symptoms. She does complain of substernal chest pain which has been present constantly for 2 days. She states she occasionally feels short of breath with this. The abdominal pain is currently not present. The chest pain currently is present. Related Data Home Medications Medication Instructions Recorded Confirmed levothyroxine 75 mcg PO DAILY 03/15/16 11/30/18 aripiprazole [Abilify] 30 mg PO DAILY #30 tab-cap 11/29/17 11/30/18 divalproex 500 mg tablet,delayed 2,000 mg PO DAILY tab 10/25/18 11/30/18 release empagliflozin 25 mg tablet 25 mg PO DAILY 10/25/18 11/30/18 gabapentin 300 mg capsule 300 mg PO QHS cap 10/25/18 11/30/18 pregabalin 100 mg capsule 100 mg PO BID #60 cap 10/25/18 11/30/18 ibuprofen 600 mg PO QID PRN #30 tab 11/12/18 11/30/18 Previous Rx's Medication Instructions Recorded aripiprazole [Abilify] 30 mg PO DAILY #30 tab-cap 11/29/17 pregabalin 100 mg capsule 100 mg PO BID #60 cap 10/25/18 ibuprofen 600 mg PO QID PRN #30 tab 11/12/18 Allergies Allergy/AdvReac Type Severity Reaction Status Date / Time codeine Allergy Mild Unverified 11/30/18 23:44 General Stated Complaint: Abd Prob CECILIA: 3 Review of Systems Review of Systems 06/18 Review of Systems completed and is negative except as stated above in HPI (Systems reviewed: Const, Eyes, ENT, Resp, CV, GI, , MSK, Skin, Neuro) [facility] Medical History Trigeminal neuralgia of left side of face (Acute 01/03/18) Schizophrenia (Chronic) History of hypothyroidism (Chronic) Anovulatory bleeding (Chronic) Type 2 diabetes mellitus (Chronic) Surgical History Ligation of fallopian tube (Inactive) Social History Smoking/Tobacco Use Status: Current every day Alcohol Intake: never Drug use: Never Number of Children: 2 Do you feel safe in your relationship?: Yes Exam Narrative Exam Narrative: 1. Const: WDWN female in NAD. 2. Eyes: No conjunctival injection or scleral icterus. 3. ENT: NC/AT. No facial swelling or tenderness. Mucous membranes moist. 4. Neck: Supple without adenopathy. Trachea midline. 5. CVS: +S1/S2, No murmurs or gallops. Radial pulses strong. 6. RESP: Unlabored respiratory effort. Clear to auscultation bilaterally. No wheezes rales or rhonchi. No chest tenderness. 7. GI: Soft, NT/ND, No hepatosplenomegaly. No guarding or rebound. 8. MSK: No C/C/E present. No deformity or tenderness noted. No calf tenderness 9. Skin: Warm, Dry. No rashes. 10. Neuro: A&O x3. 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 Sensation grossly intact, no focal neurologic deficits. 11. Psych: Appropriate mood and affect Course Vital Signs Temperature 98.1 F 11/30/18 23:40 Pulse 119 H 11/30/18 23:40 Respiratory Rate 18 11/30/18 23:40 Pulse Oximetry 95 11/30/18 23:40 Temperature 98.1 F 11/30/18 23:40 Temperature Source Skin 11/30/18 23:40 Pulse 119 H 03/28/19 23:40 Respiratory Rate 18 11/30/18 23:40 Respiratory Effort Non-Labored 11/30/18 23:42 Pulse Oximetry 95 11/30/18 23:40 Pain Level 4 11/30/18 23:40 Lab/Test Results Lab/Test Results: POC- Test(urine) Negative
[2018-12-01 00:40] LABS: Abs Immature Grans 0.13 k/cumm (0.0-0.09); Absolute Basophil Count 0.04 k/cumm (0.0-0.2); Absolute Eosinophil Count 0.32 k/cumm (0.0-0.7); Absolute Lymphocyte Count 3.57 k/cumm (1.2-3.4); Absolute Monocyte Count 1.01 k/cumm (0.11-0.7); Absolute Neutrophil Count 9.32 k/cumm (1.2-6.7); Basophils % 0.3; Eosinophils % 2.2; HCT 43.4 % (36.0-46.0); HGB 15.3 g/dL (12.0-15.5); Immature Grans % 0.9; Lymphocytes % 24.8; Mean Corp. HGB Concentration 35.3 g/dL (32.0-36.0); Mean Corpuscular Hemoglobin 33.6 pg (27.0-33.0); Mean Corpuscular Volume 95.2 fL (80-95); Mean Platelet Volume 9.6 fL (8.0-11.0); Neutrophils % 64.8; Platelet Count 336 x1000/uL (130-400); RBC 4.56 m/cumm (4.00-5.20); RBC Distribution Width 12.4 % (11.7-14.6); White Blood Cell Count 14.38 k/cumm (4.4-10.8)
--- NOTE | 2018-12-01 00:51 | DI.RAD_ITS ---
SYMPTOM/DIAGNOSIS: ABD AND CHEST PAIN PA AND LATERAL CHEST: Comparison is made with 01/28/09. The heart is normal in size. The lungs are clear. The mediastinal structures and pleura appear intact. CONCLUSION: Normal chest. FLAT AND UPRIGHT ABDOMEN: The visualized lung bases are clear. There is a large amount of stool throughout the colon consistent with obstruction. No evidence of organomegaly or pneumoperitoneum is seen. The bones and joints appear intact. IMPRESSION: Large amount of retained stool in the colon.
[2018-12-01 00:55] LABS: ALT 88 U/L (12-78); AST 21 U/L (15-37); Albumin 3.6 g/dL (3.4-5.0); Alkaline Phosphatase 203 U/L (46-116); Anion Gap 14.1 mmol/L (3-11); BUN 11 mg/dL (7-18); Bilirubin, Total 0.3 mg/dL (0.2-1.0); CO2 23.9 mmol/L (21.0-32.0); CREATININE 0.86 mg/dL (0.55-1.02); Calcium 9.1 mg/dL (8.5-10.1); Chloride 99 mmol/L (98-107); Glucose 249 mg/dL (70-100); Lipase 186 U/L (73-393); Magnesium 2.1 mg/dL (1.8-2.4); Potassium 3.7 mmol/L (3.5-5.1); Sodium 137 mmol/L (136-145); Total Protein 7.9 g/dL (6.4-8.2); Troponin I < 0.02 ng/mL (0.00-0.06)
[2018-12-01] MEDS: Normal Saline 1,000 ML 1000 ML IV (01:01)
[2018-12-01 01:09] LABS: D-Dimer 309 ng/mlFEU (<500)
[2018-12-01 01:11] VITALS: BP 115/83; PULSE 94; RESP 16; O2SAT 96
--- NOTE | 2018-12-01 02:07 | DI.VRAD_ITS ---
EXAM: XR Chest, 2 Views EXAM DATE/TIME: 12/01/2018 12:16 AM CLINICAL HISTORY: 38 years old, female; Pain; Chest pain; Type not specified TECHNIQUE: Imaging protocol: XR of the chest, 2 views. COMPARISON: No relevant prior studies available. FINDINGS: Lungs: Clear lungs. Pleural space: No pneumothorax. No sizable pleural effusion. Heart/Mediastinum: No cardiomegaly. Bones/joints: Unremarkable. IMPRESSION: Clear lungs. Dictated and Authenticated by: Link Campos MD. Ordering:SLY Lau MD
--- NOTE | 2018-12-01 02:09 | DI.VRAD_ITS ---
EXAM: XR Abdomen, 2 Views EXAM DATE/TIME: 12/01/2018 12:16 AM CLINICAL HISTORY: 38 years old, female; Pain; Abdominal pain; Localized; Left TECHNIQUE: Imaging protocol: Frontal view of the abdomen/pelvis with upright view of the abdomen. COMPARISON: No relevant prior studies available. FINDINGS: Gastrointestinal tract: Significant amount of retained fecal material throughout the colon. No definite findings to suggest bowel obstruction. Intraperitoneal space: No pneumoperitoneum. Bones/joints: Unremarkable for age. IMPRESSION: Significant amount of retained fecal material throughout the colon. No definite findings to suggest bowel obstruction. Dictated and Authenticated by: Link Campos MD. Ordering:SLY Lau MD
== END 2018-12-01 02:17 | disposition home or self-care (01) ==
PROVIDERS: Emergency Provider Emergency Medicine; PCP Nurse Practitioner
DX: R07.89 Other chest pain (principal); R10.9 Unspecified abdominal pain
CPT/HCPCS: 36415; 80053; 81025; 83690; 93005; 96360; 99285; 71046; 74019; 83735; 84484; 85025; 85379; 93010

== ENCOUNTER 2018-12-07 22:46 | Emergency (ER) | payer MEDICAID, SELFPAY ==
[2018-12-07 22:49] VITALS: BP 133/86; PULSE 117; RESP 16; TEMP 36.4
--- NOTE | 2018-12-07 22:55 | ED.GENADUL_ITS ---
Discharge Plan Disposition Patient Disposition: HOME Condition: Stable Discharge Details Chief Complaint: DentalOral Clinical Impression: Open mouth wound Primary Care Provider: Lidia Benson ED Provider: Matthew Chicas Home Meds and New Rx's Prescriptions: No Action Jardiance 25 mg tablet 25 mg PO DAILY RF: 0 gabapentin 300 mg capsule 300 mg PO QHS RF: 0 Lyrica 100 mg capsule 100 mg PO BID Qty: 60 RF: 5 aripiprazole [Abilify] 30 MG tablet 30 mg PO DAILY Qty: 30 RF: 5 levothyroxine 75 MCG tablet 75 mcg PO DAILY RF: 0 divalproex [Depakote] 500 mg tablet,delayed release (DR/EC) 2,000 mg PO DAILY RF: 0 ibuprofen 600 mg tablet 600 mg PO QID PRN (Reason: pain) Qty: 30 RF: 0 Discharge Instructions Additional Instructions: Do not use utensils or other tools to get things out of your mouth I placed you on our follow up list to try and see a specialist for your mouth wound if you develop inability to swallow liquids return to the emergency department or if you have high fevers Medical Decision Making 38 yo female who sustained a posterior mouth wound a month ago with a utensil comes in because she states she thought something may have been stuck the back of her throat so she used a large fork to try and get it out and sustained another wound. She did this about 4 days ago, finally decided to have it evaluated today. In the posterior left upper mouth area there is a 1cm or so wound. There doesn't appear to be any foreign bodies in the wound. Given this happened 4 days ago do not feel it can be repaired. Will have her f/u with ENT given how posterior the wound is to eval for possible fixes for the wound, return precautions given. The wound is not near the where the carotid artery si located so do not feel cta indicated Differential Diagnosis mouth wound, laceration HPI General Mode of arrival: ambulatory . Date/Time Provider Initiated Documentation: 12/07/18 22:48 . Limitations to Documentation: no limitations . Information obtained by: patient . History of Present Illness 38 year old F presents to the emergency department with the chief complaint of mouth wound, described as moderate, Quality is described as aching, Patient started experiencing this day(s) (4) and it has been constant. No relieving factors improve symptom(s), No exacerbating factors reported . Patient did receive the following treatments prior to arrival, NSAID Related Data Home Medications Medication Instructions Recorded Confirmed levothyroxine 75 mcg PO DAILY 03/15/16 11/30/18 aripiprazole [Abilify] 30 mg PO DAILY #30 tab-cap 11/29/17 11/30/18 divalproex 500 mg tablet,delayed 2,000 mg PO DAILY tab 10/25/18 11/30/18 release empagliflozin 25 mg tablet 25 mg PO DAILY 10/25/18 11/30/18 gabapentin 300 mg capsule 300 mg PO QHS cap 10/25/18 11/30/18 pregabalin 100 mg capsule 100 mg PO BID #60 cap 10/25/18 11/30/18 ibuprofen 600 mg PO QID PRN #30 tab 11/12/18 11/30/18 Previous Rx's Medication Instructions Recorded aripiprazole [Abilify] 30 mg PO DAILY #30 tab-cap 11/29/17 pregabalin 100 mg capsule 100 mg PO BID #60 cap 10/25/18 ibuprofen 600 mg PO QID PRN #30 tab 11/12/18 Allergies Allergy/AdvReac Type Severity Reaction Status Date / Time codeine Allergy Mild Unverified 11/30/18 23:44 General Stated Complaint: DentalOral CECILIA: 5 Review of Systems Review of Systems All systems reviewed & are unremarkable except as noted in HPI and below Constitutional Denies chills, Denies fever(s) and Denies weakness ENT Denies change in voice Cardiovascular Denies chest pain and Denies dyspnea Respiratory Denies cough and Denies dyspnea Gastrointestinal Denies abdominal pain, Denies nausea and Denies vomiting Integumentary/Breasts Denies rash Neurologic Denies weakness [facility] Medical History Trigeminal neuralgia of left side of face (Acute 01/03/18) Schizophrenia (Chronic) History of hypothyroidism (Chronic) Anovulatory bleeding (Chronic) Type 2 diabetes mellitus (Chronic) Surgical History Ligation of fallopian tube (Inactive) Family History Mother Diabetes Father Heart disease Social History Smoking/Tobacco Use Status: Current every day Tobacco Type: cigarettes Alcohol Intake: never Drug use: Never Number of Children: 2 Do you feel safe at home: Yes Do you feel safe in your relationship?: Yes Exam Const General: no acute distress Orientation: alert HENMT Head: normal to inspection Ears: external ears normal General nose exam: external nose normal Mouth: moist mucous membranes Eyes General: appearance normal, both eyes and all related structures Neck Neck: normal visual inspection Resp Effort & Inspection: normal respiratory effort and able to speak in complete sentences Cardio Rate: regular rate Skin General skin exam: no rashes or lesions noted Neuro General: alert and oriented x3 Extrem General: normal to inspection Psych Mental Status: mental status grossly normal Course Vital Signs Temperature 36.4 C L 12/07/18 22:49 Pulse 117 H 12/07/18 22:49 Respiratory Rate 16 12/07/18 22:49 Blood Pressure 133/86 12/07/18 22:49 Temperature 36.4 C L 12/07/18 22:49 Pulse 117 H 12/07/18 22:49 Respiratory Rate 16 12/07/18 22:49 Respiratory Effort 12/07/18 22:54 Blood Pressure 133/86 12/07/18 22:49 Pain Level 6 12/07/18 22:49
--- NOTE | 2018-12-08 08:58 | PDOC.ERCMPRO ---
Care Management Progress Note /-Dr. Chicas requested assistance with an ENT f/u in one week for mouth wound. Referral faxed to ENT this am.
== END 2018-12-07 23:04 | disposition home or self-care (01) ==
PROVIDERS: Emergency Provider Emergency Medicine; PCP Nurse Practitioner
DX: S01.512A Laceration without foreign body of oral cavity, initial encounter (principal); W45.8XXA Other foreign body or object entering through skin, initial encounter
CPT/HCPCS: 99282

== ENCOUNTER 2018-12-08 10:37 | Emergency (ER) | payer MEDICAID, SELFPAY ==
[2018-12-08 10:41] VITALS: BP 138/75; PULSE 99; RESP 18; TEMP 36.5; O2SAT 97
--- NOTE | 2018-12-08 10:51 | ED.GENADUL_ITS ---
Discharge Plan Disposition Patient Disposition: HOME Condition: Stable Discharge Details Chief Complaint: DentalOral Clinical Impression: Pharyngeal laceration, Foreign body in pharynx Primary Care Provider: Lidia Benson ED Provider: Nan Sidhu Home Meds and New Rx's Prescriptions: New amoxicillin-pot clavulanate [Augmentin] 875-125 mg tablet 1 tab PO BID 10 Days Qty: 20 RF: 0 chlorhexidine gluconate 0.12 % mouthwash 15 ml MM BID 14 Days Qty: 420 RF: 0 Continued Jardiance 25 mg tablet 25 mg PO DAILY RF: 0 gabapentin 300 mg capsule 300 mg PO QHS RF: 0 Lyrica 100 mg capsule 100 mg PO BID Qty: 60 RF: 5 aripiprazole [Abilify] 30 MG tablet 30 mg PO DAILY Qty: 30 RF: 5 levothyroxine 75 MCG tablet 75 mcg PO DAILY RF: 0 divalproex [Depakote] 500 mg tablet,delayed release (DR/EC) 2,000 mg PO DAILY RF: 0 ibuprofen 600 mg tablet 600 mg PO QID PRN (Reason: pain) Qty: 30 RF: 0 Discharge Instructions Instructions: Laceration (ED) Additional Instructions: Take the antibiotics until finished. Alternate tylenol and motrin as needed and directed for pain. Follow up with the senior accounts payable specialist next week for reevaluation. Call Tuesday to schedule a follow up appointment. Return immediately to the emergency department with any worsening or new concerning symptoms. Referrals: Jason Liang MD [ [facility] STAFF PHYSICIAN] - Discharge Data Discharge Date/Time-TO BE ENTERED AT DEPARTURE: 12/08/18 15:20 Discharge Physician: Nan Sidhu Medical Decision Making 38-year-old female with history of schizophrenia who presents for evaluation of oral laceration for sustained almost 1 month ago with a lobster fork, and then reopened a few days ago. She was first treated with clindamycin last month, then followed up with oral surgery and then returned here yesterday after wound reopened. She now has plans to follow-up with ENT. Each time she presented to the ED she presented several days after the wound opened and was not appropriate for wound closure. It was thought that the laceration was not near the area of the carotid and imaging not indicated. Vitals within normal limits. Patient appears to have some element of trismus due to pain near area of wound. The wound is open approximately 4 mm and appears to have a yellowish discoloration within the wound which may be pus vers us fatty tissue and there is erythema and significant tenderness to palpation around the wound edges. At this point in time, I am concerned about a local infection, but will obtain imaging due to patient's repeat visit seeking medical care to rule out a foreign body versus deep space infection. Will place an IV, bolus of fluids, labs, and CT neck with contrast. 1330 -- labs and imaging reviewed. Normal white blood cell count. CT imaging reviewed with radiology and there are tiny high densities which could possibly be foreign bodies? possibly bone? approximately 1.2-1.4 mm in the left soft palate. No abscess noted. Mild lymphadenopathy. [facility] ENT paged and will push images. 1500 --reviewed imaging with [facility] ENT and they do not see any evidence of abscess. They did see these possible small foreign bodies noted within the wound but does not recommend any acute intervention for this and states that this can likely come out on its own. Recommend Augmentin for 10 days as well as chlorhexidine wash for 2 weeks. Patient instructed to call [facility] ENT on Tuesday morning to schedule follow-up appointment for reevaluation and to return here at any time if worse. Medical Records Medical records reviewed: Yes I reviewed the patient's medical records. HPI General Mode of arrival: ambulatory . Date/Time Provider Initiated Documentation: 12/08/18 10:47 . Limitations to Documentation: no limitations . Information obtained by: patient . HPI Narrative: Patient is a 38-year-old female who presents for a painful oral wound that she has had for 1 month, worse since it reopened 4 days ago. Patient was seen here on 11/12/18 for a wound to her soft palate sustained when she thought there was a foreign body in the back of her mouth and she attempted to remove it with a lobster fork. She was seen in the ED several days after the injury and was not found to be appropriate for wound closure or need for imaging and was sent home with clindamycin. She then followed up with an oral surgeon and was told that the wound would heal and did not need closure at that time. She was seen here yesterday for reevaluation after she accidentally reopened the wound with a lobster fork again several days ago. She again was told as the reopening of the wound occurred a few days ago, would not be appropriate for wound closure and was discharged home to follow-up with ENT. Patient is here with human services who state that they are in contact with Elidia Moyer awaiting follow-up appointment with ENT. Patient states she is having pain with swallowing, eating, and is concerned about infection and is requesting a prescription for antibiotics. Related Data Home Medications Medication Instructions Recorded Confirmed levothyroxine 75 mcg PO DAILY 03/15/16 11/30/18 aripiprazole [Abilify] 30 mg PO DAILY #30 tab-cap 11/29/17 11/30/18 divalproex 500 mg tablet,delayed 2,000 mg PO DAILY tab 10/25/18 11/30/18 release empagliflozin 25 mg tablet 25 mg PO DAILY 10/25/18 11/30/18 gabapentin 300 mg capsule 300 mg PO QHS cap 10/25/18 11/30/18 pregabalin 100 mg capsule 100 mg PO BID #60 cap 10/25/18 11/30/18 ibuprofen 600 mg PO QID PRN #30 tab 11/12/18 11/30/18 amoxicillin-pot clavulanate 1 tab PO BID 10 Days #20 tab 12/08/18 [Augmentin] chlorhexidine gluconate 15 ml MM BID 14 Days #420 ml 12/08/18 Previous Rx's Medication Instructions Recorded aripiprazole [Abilify] 30 mg PO DAILY #30 tab-cap 11/29/17 pregabalin 100 mg capsule 100 mg PO BID #60 cap 10/25/18 ibuprofen 600 mg PO QID PRN #30 tab 11/12/18 amoxicillin-pot clavulanate 1 tab PO BID 10 Days #20 tab 12/08/18 [Augmentin] chlorhexidine gluconate 15 ml MM BID 14 Days #420 ml 12/08/18 Allergies Allergy/AdvReac Type Severity Reaction Status Date / Time codeine Allergy Mild Unverified 11/30/18 23:44 General Stated Complaint: DentalOral CECILIA: 5 Review of Systems Review of Systems All systems reviewed & are unremarkable except as noted in HPI and below Constitutional Reports as per HPI, Denies chills and Denies fever(s) Eyes Denies blurry vision ENT Denies dizziness, Denies sore throat and Denies throat swelling Cardiovascular Denies chest pain and Denies dyspnea Respiratory Denies cough and Denies dyspnea Gastrointestinal Denies abdominal pain, Denies diarrhea and Denies vomiting Genitourinary Denies hematuria and Denies dysuria Musculoskeletal Denies back pain and Denies numbness Integumentary/Breasts Reports lesions and Denies rash Neurologic Denies dizziness, Denies focal weakness and Denies numbness Allergic/Immunologic Denies throat swelling FOR[facility]LY [facility], 1928–1983 Medical History Trigeminal neuralgia of left side of face (Acute 01/03/18) Schizophrenia (Chronic) History of hypothyroidism (Chronic) Anovulatory bleeding (Chronic) Type 2 diabetes mellitus (Chronic) Surgical History Ligation of fallopian tube (Inactive) Family History Mother Diabetes Father Heart disease Social History Smoking/Tobacco Use Status: Current every day Tobacco Type: cigarettes Alcohol Intake: never Drug use: Never Number of Children: 2 Do you feel safe at home: Yes Do you feel safe in your relationship?: Yes Exam Const General: cooperative, healthy appearing and no acute distress HENMT Head: normal to inspection Ears: hearing grossly normal bilaterally, external ears normal and TM's normal bilaterally General nose exam: external nose normal Throat image: 1. 2cm open laceration to L posterior pharynx/lateral soft palate. There appears to be a yellowish discoloration within the laceration which may be pus versus fatty tissue. There is no obvious foreign body noted. There is erythema noted to the wound edges and significant tenderness to palpation of the area. There is no active drainage. Eyes General: appearance normal, both eyes and all related structures Neck Neck: normal visual inspection Resp Effort & Inspection: normal respiratory effort and able to speak in complete sentences Cardio Rate: regular rate Skin General skin exam: no rashes or lesions noted Neuro General: alert, awake and oriented x3 Motor: muscle tone normal throughout Extrem General: normal to inspection and full ROM Psych Appearance: grossly normal Affect: normal affect Course Vital Signs Temperature 97.7 F 12/08/18 10:41 Pulse 99 H 12/08/18 10:41 Respiratory Rate 18 12/08/18 10:41 Blood Pressure 138/75 12/08/18 10:41 Pulse Oximetry 97 12/08/18 10:41 Temperature 97.7 F 12/08/18 10:41 Temperature Source Temporal Artery Scan 12/08/18 10:41 Pulse 99 H 12/08/18 10:41 Respiratory Rate 18 12/08/18 10:41 Respiratory Effort Non-Labored 12/08/18 10:45 Blood Pressure 138/75 12/08/18 10:41 Blood Pressure Position Sitting 12/08/18 10:41 Pulse Oximetry 97 12/08/18 10:41 Oxygen Delivery Method Room Air 12/08/18 10:41 Oxygen Flow Rate 0 12/08/18 10:41 Pain Level 3 12/08/18 10:41
--- NOTE | 2018-12-08 11:15 | PDOC.ERCMPRO ---
Care Management Progress Note 12/08-This CM reached out to ENT as Shaneka presented to the emergency department. Shaneka was here yesterday and this CM sent a referral to ENT this morning requesting f/u. ENT did not answer, left message on voice mail. Dr. Sidhu aware of the above.
[2018-12-08] MEDS: Normal Saline 1,000 ML 1000 ML IV (11:39)
[2018-12-08 11:57] LABS: Abs Immature Grans 0.08 k/cumm (0.0-0.09); Absolute Basophil Count 0.03 k/cumm (0.0-0.2); Absolute Eosinophil Count 0.31 k/cumm (0.0-0.7); Absolute Lymphocyte Count 1.86 k/cumm (1.2-3.4); Absolute Monocyte Count 0.59 k/cumm (0.11-0.7); Basophils % 0.4; Eosinophils % 4.5; HCT 43.4 % (36.0-46.0); HGB 14.9 g/dL (12.0-15.5); Immature Grans % 1.2; Lymphocytes % 27.1; Mean Corp. HGB Concentration 34.3 g/dL (32.0-36.0); Mean Corpuscular Hemoglobin 33.3 pg (27.0-33.0); Mean Corpuscular Volume 96.9 fL (80-95); Mean Platelet Volume 9.4 fL (8.0-11.0); Monocytes % 8.6; Neutrophils % 58.2; Platelet Count 339 x1000/uL (130-400); RBC 4.48 m/cumm (4.00-5.20); RBC Distribution Width 12.4 % (11.7-14.6); White Blood Cell Count 6.87 k/cumm (4.4-10.8)
[2018-12-08 12:05] LABS: Anion Gap 11.8 mmol/L (3-11); BUN 14 mg/dL (7-18); CO2 25.2 mmol/L (21.0-32.0); CREATININE 0.75 mg/dL (0.55-1.02); Calcium 9.4 mg/dL (8.5-10.1); Chloride 97 mmol/L (98-107); Glucose 273 mg/dL (70-100); Potassium 3.9 mmol/L (3.5-5.1); Sodium 134 mmol/L (136-145)
--- NOTE | 2018-12-08 12:12 | DI.CT_ITS ---
SYMPTOMS/DIAGNOSIS: LT POSTERIOR PHARYNX LACERATION, ? ABSCESS, FOREIGN BODY OR VASCULAR INJURY CT ANGIOGRAPHY NECK: CT angiography was performed with multi slice acquisition and multi planar and 3D reconstruction. CT Angiography was performed with intravenous infusion of 100 cc's of Omnipaque 350. Images obtained through the lung apices are unremarkable. The tracheobronchial tree and tracheolaryngeal structures appear intact. No cervical mass, adenopathy, abscess or free air. Thyroid and salivary glands appear intact. Mildly enlarged lymph node noted on the left at the level of the carotid bifurcation measuring about 16 mm in greatest diameter. No evidence of arterial aneurysm, trauma or dissection. Intracranial contents appear normal as visualized with unremarkable appearance of the [place] vasculature. The orbital and temporal bone structures appear intact. There are a couple of small flecks of what appear to be calcific or ossific attenuation material in the region of the soft palate and palatine tonsil on the left with some asymmetry of the pharyngeal airway at this site. No abscess identified, but foreign body would have to be considered in light of the history of trauma at this site. CONCLUSION: No evidence of vascular injury or abscess. Possible tiny foreign bodies in soft palate/palatine tonsillar region on the left.
[2018-12-08] MEDS: Omnipaque 350 MG/ML 100 ML BTL 85 ML IJ (12:58)
[2018-12-08] MEDS: Acetaminophen 325 MG TAB 650 MG PO (13:45)
[2018-12-08] MEDS: Ibuprofen 600 MG TAB PO (13:45)
[2018-12-08] MEDS: Amoxicillin 875/Clav. 125 TAB PO (15:16)
[2018-12-08 15:18] VITALS: BP 138/75; PULSE 99; RESP 18; TEMP 36.5; O2SAT 97
== END 2018-12-08 15:20 | disposition home or self-care (01) ==
PROVIDERS: Emergency Provider Physician Assistant; PCP Nurse Practitioner
DX: S11.22XA Laceration with foreign body of pharynx and cervical esophagus, initial encounter (principal); W45.8XXA Other foreign body or object entering through skin, initial encounter
CPT/HCPCS: 36415; 70498; 80048; 81025; 96360; 99285; 85025; 99284; J3490

== ENCOUNTER 2018-12-13 21:55 | Emergency (ER) | payer MEDICAID, SELFPAY ==
[2018-12-13 21:59] VITALS: BP 128/82; PULSE 95; RESP 16; TEMP 36.7; O2SAT 100
--- NOTE | 2018-12-13 22:00 | W.ED.GENAD ---
Discharge Plan Disposition Patient Disposition: HOME Condition: Stable Discharge Details Chief Complaint: GenMedical Clinical Impression: Runny nose Primary Care Provider: Lidia Benson ED Provider: Matthew Chicas Home Meds and New Rx's Prescriptions: No Action Jardiance 25 mg tablet 25 mg PO DAILY RF: 0 gabapentin 300 mg capsule 300 mg PO QHS RF: 0 Lyrica 100 mg capsule 100 mg PO BID Qty: 60 RF: 5 aripiprazole [Abilify] 30 MG tablet 30 mg PO DAILY Qty: 30 RF: 5 levothyroxine 75 MCG tablet 75 mcg PO DAILY RF: 0 divalproex [Depakote] 500 mg tablet,delayed release (DR/EC) 2,000 mg PO DAILY RF: 0 ibuprofen 600 mg tablet 600 mg PO QID PRN (Reason: pain) Qty: 30 RF: 0 amoxicillin-pot clavulanate [Augmentin] 875-125 mg tablet 1 tab PO BID 10 Days Qty: 20 RF: 0 chlorhexidine gluconate 0.12 % mouthwash 15 ml MM BID 14 Days Qty: 420 RF: 0 Discharge Instructions Additional Instructions: follow up with your primary care provider to discuss management of your diabetes if you develop high fevers, persistent vomit or feel significantly more ill return to the emergency department Medical Decision Making 38 yo female with hx of schizophrenia, t2DM, comes in with initial complaints of runny nose for a few days. The patient is caox4 withuot neuro deficits, afebrile and appears well systemically speaking in full sentences.Has clear rhinorrhea, she sustained a pharynx laceration in the past month that apperars to be healing without drainage. She has no restricted neck movements and speaking in full sentence.s The patient does laugh intermittently for no reason, when asked if she has used any substances she says no and then laughs for a long time. I do not feel any lab work or imaging is indicated given stable vitals and no clear complaints other than runny nose. I advised she f/u with her pcp if symptoms continue and return if worsening which she and her sister understood Differential Diagnosis drug use, uri, pna HPI General Mode of arrival: ambulatory. Date/Time Provider Initiated Documentation: 12/13/18 21:55. Limitations to Documentation: no limitations. Information obtained by: patient. History of Present Illness 38 year old F presents to the emergency department with the chief complaint of runny nose, and is localized to the face. Patient reports no radiation. Patient started experiencing this day(s) (3) and it has been constant. No relieving factors improve symptom(s), No exacerbating factors reported . Patient did receive the following treatments prior to arrival, none Related Data Home Medications Medication Instructions Recorded Confirmed levothyroxine 75 mcg PO DAILY 03/15/16 11/30/18 aripiprazole [Abilify] 30 mg PO DAILY #30 tab-cap 11/29/17 11/30/18 divalproex 500 mg tablet,delayed 2,000 mg PO DAILY tab 10/25/18 11/30/18 release empagliflozin 25 mg tablet 25 mg PO DAILY 10/25/18 11/30/18 gabapentin 300 mg capsule 300 mg PO QHS cap 10/25/18 11/30/18 pregabalin 100 mg capsule 100 mg PO BID #60 cap 10/25/18 11/30/18 ibuprofen 600 mg PO QID PRN #30 tab 11/12/18 11/30/18 amoxicillin-pot clavulanate 1 tab PO BID 10 Days #20 tab 12/08/18 [Augmentin] chlorhexidine gluconate 15 ml MM BID 14 Days #420 ml 12/08/18 Previous Rx's Medication Instructions Recorded aripiprazole [Abilify] 30 mg PO DAILY #30 tab-cap 11/29/17 pregabalin 100 mg capsule 100 mg PO BID #60 cap 10/25/18 ibuprofen 600 mg PO QID PRN #30 tab 11/12/18 amoxicillin-pot clavulanate 1 tab PO BID 10 Days #20 tab 12/08/18 [Augmentin] chlorhexidine gluconate 15 ml MM BID 14 Days #420 ml 12/08/18 Allergies Allergy/AdvReac Type Severity Reaction Status Date / Time codeine Allergy Mild Unverified 12/13/18 22:00 General Stated Complaint: GenMedical CECILIA: 4 Review of Systems Review of Systems All systems reviewed & are unremarkable except as noted in HPI and below Constitutional Denies fever(s) ENT Denies change in voice Cardiovascular Denies chest pain and Denies dyspnea Respiratory Denies dyspnea Gastrointestinal Denies abdominal pain, Denies nausea and Denies vomiting Genitourinary Denies dysuria Musculoskeletal Denies joint swelling Integumentary/Breasts Denies rash [facility] Medical History Trigeminal neuralgia of left side of face (Acute 01/03/18) Schizophrenia (Chronic) History of hypothyroidism (Chronic) Anovulatory bleeding (Chronic) Type 2 diabetes mellitus (Chronic) Surgical History Ligation of fallopian tube (Inactive) Family History Mother Diabetes Father Heart disease Social History Smoking/Tobacco Use Status: Current every day Tobacco Type: cigarettes Alcohol Intake: never Drug use: Never Number of Children: 2 Do you feel safe at home: Yes Do you feel safe in your relationship?: Yes Exam Const General: no acute distress Orientation: alert HENMT Head: normal to inspection Ears: external ears normal General nose exam: external nose normal Mouth: moist mucous membranes Eyes General: appearance normal, both eyes and all related structures Neck Neck: normal visual inspection Resp Effort & Inspection: normal respiratory effort and able to speak in complete sentences Cardio Rate: regular rate (HR 90 on exam) Skin General skin exam: no rashes or lesions noted Neuro General: alert and oriented x3 Extrem General: normal to inspection Psych Mental Status: mental status grossly normal Course Vital Signs Temperature 36.7 C 12/13/18 21:59 Pulse 95 H 12/13/18 21:59 Respiratory Rate 16 12/13/18 21:59 Blood Pressure 128/82 12/13/18 21:59 Pulse Oximetry 100 12/13/18 21:59 Temperature 36.7 C 12/13/18 21:59 Temperature Source Skin 12/13/18 21:59 Pulse 95 H 12/13/18 21:59 Respiratory Rate 16 12/13/18 21:59 Blood Pressure 128/82 12/13/18 21:59 Pulse Oximetry 100 12/13/18 21:59 Oxygen Delivery Method Room Air 12/13/18 21:59 Oxygen Flow Rate 0 12/13/18 21:59 Pain Level 3 12/13/18 21:59
== END 2018-12-13 22:08 | disposition home or self-care (01) ==
PROVIDERS: Emergency Provider Emergency Medicine; PCP Nurse Practitioner
DX: R09.82 Postnasal drip (principal); E11.9 Type 2 diabetes mellitus without complications
CPT/HCPCS: 99282

== ENCOUNTER 2019-01-18 09:54 | Outpatient (CLI) | payer MEDICAID, SELFPAY ==
[2019-01-18 10:58] LABS: VALPROIC ACID 27.4 ug/mL (50-100)
== END 2019-01-18 10:14 ==
PROVIDERS: PCP Nurse Practitioner; Visit Provider Nurse Practitioner
DX: F25.9 Schizoaffective disorder, unspecified (principal); Z51.81 Encounter for therapeutic drug level monitoring
CPT/HCPCS: 36415; 80164

== ENCOUNTER 2019-01-22 02:06 | Emergency (ER) | payer MEDICAID, SELFPAY ==
[2019-01-22 02:09] VITALS: BP 122/80; PULSE 117; RESP 18; TEMP 36.8; O2SAT 95
--- NOTE | 2019-01-22 02:19 | W.ED.GENAD ---
Discharge Plan Disposition Patient Disposition: HOME Condition: Improving Discharge Details Chief Complaint: PsychEval Clinical Impression: Schizophrenia Primary Care Provider: Lidia Benson ED Provider: Alan Martinez Home Meds and New Rx's Prescriptions: Continued Jardiance 25 mg tablet 25 mg PO DAILY RF: 0 gabapentin 300 mg capsule 300 mg PO QHS RF: 0 Lyrica 100 mg capsule 100 mg PO BID Qty: 60 RF: 5 aripiprazole [Abilify] 30 MG tablet 30 mg PO DAILY Qty: 30 RF: 5 levothyroxine 75 MCG tablet 75 mcg PO DAILY RF: 0 divalproex [Depakote] 500 mg tablet,delayed release (DR/EC) 2,000 mg PO DAILY RF: 0 olanzapine [Zyprexa] 7.5 mg Tablet 7.5 mg PO QHS RF: 0 clindamycin HCl 150 mg Capsule 450 mg PO QID RF: 0 Discharge Instructions Additional Instructions: Your Depakote level was 77 today. [facility] human services will follow up with you today. Continue all of your regularly prescribed medications. Return for any acute concern Medical Decision Making 38-year-old female with a history of schizophrenia presents stating that she is had hours of feeling suicidal with thoughts of harm her self by drinking qualifications examiner or electrocution. She is slightly anxious on exam. Tachycardic at triage but improved at rest. Medical screening examination including laboratories performed patient medically stable for further evaluation by mental health screener. Patient has chronic mild elevation of her LFTs which is unchanged. She is diabetic and noted to have glucose in the urine. No evidence of acidosis. Valproic acid 77. She is stable and improved. Interviewed by mental health and a plan for outpatient safety established. SHe will be seen by mental health later today for med drop and check-in. Lab Data Lab results reviewed: Yes I reviewed the patient's lab results. Laboratory Results - last 24 hr 01/22/19 01/22/19 01/22/19 02:25 02:27 02:27 WBC RBC Hgb Hct MCV MCH MCHC RDW Plt Count MPV Immature Gran % Neutrophils % Lymphocytes % Monocytes % Eosinophils % Basophils % Absolute Neutrophils Absolute Lymphocytes Absolute Monocytes Absolute Eosinophils Absolute Basophils Sodium 136 Potassium 3.6 Chloride 99 Carbon Dioxide 24.7 Anion Gap 12.3 H BUN 14 Creatinine 0.69 Estimated GFR/1.73 m2 >= 60.00 Glucose 236 H Calcium 8.7 Total Bilirubin 0.2 AST 62 H ALT 146 H Alkaline Phosphatase 207 H Total Protein 7.9 Albumin 3.6 TSH 6.63 H Urine Color Yellow Urine Clarity Clear Urine pH 5.5 Ur Specific [employer] 1.010 Urine Protein Negative Urine Ketones 40 H Urine Blood Negative Urine Nitrite Negative Urine Bilirubin Negative Urine Urobilinogen 0.2 Ur Leukocyte Esterase Negative Urine Glucose 500 H Salicylates < 2.8 L Acetaminophen < 2 L Ethyl Alcohol < 3.0 01/22/19 02:27 WBC 8.23 RBC 4.67 Hgb 15.7 H Hct 45.1 MCV 96.6 H MCH 33.6 H MCHC 34.8 RDW 12.3 Plt Count 304 MPV 9.7 Immature Gran % 0.9 Neutrophils % 51.4 Lymphocytes % 35.2 Monocytes % 8.5 Eosinophils % 3.4 Basophils % 0.6 Absolute Neutrophils 4.23 Absolute Lymphocytes 2.90 Absolute Monocytes 0.70 Absolute Eosinophils 0.28 Absolute Basophils 0.05 Sodium Potassium Chloride Carbon Dioxide Anion Gap BUN Creatinine Estimated GFR/1.73 m2 Glucose Calcium Total Bilirubin AST ALT Alkaline Phosphatase Total Protein Albumin TSH Urine Color Urine Clarity Urine pH Ur Specific [employer] Urine Protein Urine Ketones Urine Blood Urine Nitrite Urine Bilirubin Urine Urobilinogen Ur Leukocyte Esterase Urine Glucose Salicylates Acetaminophen Ethyl Alcohol HPI General Mode of arrival: ambulatory. Date/Time Provider Initiated Documentation: 01/22/19 02:11. Limitations to Documentation: no limitations. Information obtained by: patient. History of Present Illness 38 year old F presents to the emergency department with the chief complaint of Feeling suicidal, described as moderate, Quality is described as constant, Patient started experiencing this hour(s) and it has been constant. No relieving factors improve symptom(s), No exacerbating factors reported . Patient notes no other symptoms.. Patient did receive the following treatments prior to arrival, none Related Data Home Medications Medication Instructions Recorded Confirmed levothyroxine 75 mcg PO DAILY 03/15/16 01/22/19 aripiprazole [Abilify] 30 mg PO DAILY #30 tab-cap 11/29/17 01/22/19 divalproex 500 mg tablet,delayed 2,000 mg PO DAILY tab 10/25/18 01/22/19 release empagliflozin 25 mg tablet 25 mg PO DAILY 10/25/18 01/22/19 gabapentin 300 mg capsule 300 mg PO QHS cap 10/25/18 01/22/19 pregabalin 100 mg capsule 100 mg PO BID #60 cap 10/25/18 01/22/19 clindamycin HCl 450 mg PO QID 01/22/19 01/22/19 olanzapine [Zyprexa] 7.5 mg PO QHS 01/22/19 01/22/19 Previous Rx's Medication Instructions Recorded aripiprazole [Abilify] 30 mg PO DAILY #30 tab-cap 11/29/17 pregabalin 100 mg capsule 100 mg PO BID #60 cap 10/25/18 Allergies Allergy/AdvReac Type Severity Reaction Status Date / Time codeine Allergy Mild Unverified 01/22/19 02:15 General Stated Complaint: PsychEval CECILIA: 2 Review of Systems Review of Systems HEaling wound of mouth, on antibiotics. Denies recent illness. No recent hospitalizations. States she is been taking her medications. Thoughts of harming herself by drinking qualifications examiner and electrocution. 8 systems reviewed and otherwise negative [facility] Medical History Trigeminal neuralgia of left side of face (Acute 01/03/18) Schizophrenia (Chronic) History of hypothyroidism (Chronic) Anovulatory bleeding (Chronic) Type 2 diabetes mellitus (Chronic) Surgical History Ligation of fallopian tube (Inactive) Family History Mother Diabetes Father Heart disease Social History Smoking/Tobacco Use Status: Current every day Tobacco Type: cigarettes Alcohol Intake: never Drug use: Never Number of Children: 2 Do you feel safe at home: Yes Do you feel safe in your relationship?: Yes Exam Narrative Exam Narrative: GEN: awake, alert, oriented 3. Pleasant, well groomed, interactive. HEAD: Normocephalic, atraumatic ENT: Mucous membranes moist, oropharynx unremarkable, External ear exam unremarkable EYES: PERRL, EOMI NECK: Full ROM, no NOHEMI, no menigismus CHEST/RESP: Nontender, clear to auscultation bilateral, no wheeze/rhonchi/rales CARDIOVASCULAR: RRR, no murmur, rub rico. 2+ Rad pulse bilateral ABDOMEN: Soft, nontender, no mass. +Bowel sounds EXT: Full ROM, no edema, no rash Neuro: Grossly normal neurologic exam, conversant, interactive. Psych: Speech fluent, thoughts congruent, affect flat Course Vital Signs Temperature 36.8 C 01/22/19 02:09 Pulse 117 H 01/22/19 02:09 Respiratory Rate 18 01/22/19 02:09 Blood Pressure 122/80 01/22/19 02:09 Pulse Oximetry 95 01/22/19 02:09 Temperature 36.8 C 01/22/19 02:09 Temperature Source Skin 01/22/19 02:09 Pulse 117 H 01/22/19 02:09 Respiratory Rate 18 01/22/19 02:09 Respiratory Effort Non-Labored 01/22/19 02:13 Blood Pressure 122/80 01/22/19 02:09 Blood Pressure Position Sitting 01/22/19 02:09 Pulse Oximetry 95 01/22/19 02:09 Oxygen Delivery Method Room Air 01/22/19 02:09 Oxygen Flow Rate 0 01/22/19 02:09 Pain Level 5 01/22/19 02:09 Comment 01/22/19 02:09
[2019-01-22 02:36] LABS: Abs Immature Grans 0.07 k/cumm (0.0-0.09); Absolute Basophil Count 0.05 k/cumm (0.0-0.2); Absolute Eosinophil Count 0.28 k/cumm (0.0-0.7); Absolute Neutrophil Count 4.23 k/cumm (1.2-6.7); Basophils % 0.6; Eosinophils % 3.4; HCT 45.1 % (36.0-46.0); HGB 15.7 g/dL (12.0-15.5); Immature Grans % 0.9; Lymphocytes % 35.2; Mean Corp. HGB Concentration 34.8 g/dL (32.0-36.0); Mean Corpuscular Hemoglobin 33.6 pg (27.0-33.0); Mean Corpuscular Volume 96.6 fL (80-95); Mean Platelet Volume 9.7 fL (8.0-11.0); Monocytes % 8.5; Neutrophils % 51.4; Platelet Count 304 x1000/uL (130-400); RBC 4.67 m/cumm (4.00-5.20); RBC Distribution Width 12.3 % (11.7-14.6); White Blood Cell Count 8.23 k/cumm (4.4-10.8)
[2019-01-22 02:52] LABS: Bilirubin Negative (Negative); Blood Negative (Negative); Clarity Clear; Glucose 500 mg/dL (Negative); Ketones 40 mg/dL (Negative); Leukocyte Esterase Negative (Negative); Nitrite Negative (Negative); Urobilinogen 0.2 EU/dL (Up TO 0.2); pH 5.5 (5-8)
[2019-01-22 02:53] LABS: Salicylate < 2.8 mg/dL (2.8-20.0)
[2019-01-22 02:57] LABS: Acetaminophen < 2 ug/mL (10-30)
[2019-01-22] MEDS: Ibuprofen 800 MG TAB PO (02:58)
[2019-01-22 02:59] LABS: ALT 146 U/L (12-78); AST 62 U/L (15-37); Albumin 3.6 g/dL (3.4-5.0); Alkaline Phosphatase 207 U/L (46-116); Anion Gap 12.3 mmol/L (3-11); BUN 14 mg/dL (7-18); Bilirubin, Total 0.2 mg/dL (0.2-1.0); CO2 24.7 mmol/L (21.0-32.0); CREATININE 0.69 mg/dL (0.55-1.02); Calcium 8.7 mg/dL (8.5-10.1); Chloride 99 mmol/L (98-107); Glucose 236 mg/dL (70-100); Potassium 3.6 mmol/L (3.5-5.1); Sodium 136 mmol/L (136-145); TSH 6.63 uIU/mL (0.358-3.74); Total Protein 7.9 g/dL (6.4-8.2)
[2019-01-22 03:10] LABS: ETHANOL BLOOD < 3.0 mg/dL (<3)
[2019-01-22 03:26] LABS: *AMPHETAMINES SCREEN URINE Negative (Negative); *BARBITURATES SCREEN URINE Negative (Negative); *BENZODIAZEPINES SCREEN URINE Negative (Negative); Cannabinoids THC Negative (Negative); Cocaine Screen,Urine Negative (Negative); METHADONE URINE SCREEN Negative (Negative); OPIATES URINE SCREEN Negative (Negative); Tricyclic Antidepressants Negative (Negative)
--- NOTE | 2019-01-22 04:00 | PDOC.MHCN ---
Date of service: 01/22/19 Time of Service: 04:00 Mental Health Crisis Note Presenting Issue How did you arrive at the ED and why did you come: Shaneka walked to the ED from home presenting with suicidal ideation at approximately 1:30am. Precipitating Factors Shaneka stated she was having suicidal thoughts starting last evening after spending time with a friend--haresh TANNER. She said she attempted to call mental health emergency services but her phone was not working properly. When asked what her thoughts were she stated she was thinking about drinking something poisonous or electrocuting herself. She reports feeling overwhelmed and stressed out which triggered her SI. She has no intent of following through with her plan. She shared she is overwhelmed and stressed because she is concerned about her Depakote level. She is concerned she may not be on enough medication. She claims she had her lab work done for Depakote last Tuesday01/19/19. Those results were not in the computer system. Those levels will be checked through the ED and results given to an [facility] provider later this morning. She reports she saw her current provider Kandace Ocampo APRN last 01/18/19. Shaneka stated Kandace increased her Zyprexa. Disposition BEHAVIOR: Appropriate. EYE CONTACT: Mildly distressed. MOOD: Pleasant, cooperative. AFFECT: Engaged and animated. APPETITE: Reports good appetite. SLEEP(trouble falling/staying asleep: Reports she has been sleeping well. Plan This screener spoke with Shaneka at length about her current state of mind. She is not currently suicidal and has agreed to stay safe tonight if discharged home. The plan is to check in with Shaneka later this morning during her medication delivery. The Depakote level results will be given to an [facility] provider to analyze. Shaneka stated she was comfortable with checking her Depakote levels now and speaking with a provider later this morning about the results. She will also be in contact with her SYSTEM OPERATION SUPERINTENDENT Wheel Fitter, Janet Gagnon. Dr. Martinez and Dalia Sanchez, AKASH were consulted and in agreement with the discharge plan. Signature Clinician's Name/Title: Amna Montejo BA SYSTEM OPERATION SUPERINTENDENT Wheel Fitter
[2019-01-22 04:14] LABS: VALPROIC ACID 77.1 ug/mL (50-100)
--- NOTE | 2019-01-22 04:30 | PDOC.MHCN_ITS ---
Date of service: 01/22/19 Time of Service: 04:00 Mental Health Crisis Note Presenting Issue How did you arrive at the ED and why did you come: Shaneka walked to the ED from home presenting with suicidal ideation at approximately 1:30am. Precipitating Factors Shaneka stated she was having suicidal thoughts starting last evening after spending time with a friend--haresh TANNER. She said she attempted to call mental health emergency services but her phone was not working properly. When asked what her thoughts were she stated she was thinking about drinking something poisonous or electrocuting herself. She reports feeling overwhelmed and stressed out which triggered her SI. She has no intent of following through with her plan. She shared she is overwhelmed and stressed because she is concerned about her Depakote level. She is concerned she may not be on enough medication. She claims she had her lab work done for Depakote last Tuesday01/19/19. Those results were not in the computer system. Those levels will be checked through the ED and results given to an [facility] provider later this morning. She reports she saw her current provider Kandace Ocampo APRN last 01/18/19. Shaneka stated Kandace increased her Zyprexa. Disposition BEHAVIOR: Appropriate. EYE CONTACT: Mildly distressed. MOOD: Pleasant, cooperative. AFFECT: Engaged and animated. APPETITE: Reports good appetite. SLEEP(trouble falling/staying asleep: Reports she has been sleeping well. Plan This screener spoke with Shaneka at length about her current state of mind. She is not currently suicidal and has agreed to stay safe tonight if discharged home. The plan is to check in with Shaneka later this morning during her medication delivery. The Depakote level results will be given to an [facility] provider to analyze. Shaneka stated she was comfortable with checking her Depakote levels now and speaking with a provider later this morning about the results. She will also be in contact with her WOODWORKING SHOP LABORER Electric Motor Assembler, Janet Macias. Dr. Martinez and Dalia Sanchez, AKASH were consulted and in agreement with the discharge plan. Signature Clinician's Name/Title: Amna Montejo BA WOODWORKING SHOP LABORER Electric Motor Assembler
== END 2019-01-22 04:49 | disposition home or self-care (01) ==
PROVIDERS: Emergency Provider Emergency Medicine; PCP Nurse Practitioner
DX: F20.9 Schizophrenia, unspecified (principal); E11.9 Type 2 diabetes mellitus without complications; R45.851 Suicidal ideations
CPT/HCPCS: 36415; 80053; 80307; 81025; 99285; 80164; 80320; 80329; 81003; 84443; 85025; 99284

== ENCOUNTER 2019-02-15 06:59 | Emergency (ER) | payer MEDICAID, SELFPAY ==
[2019-02-15 07:03] VITALS: BP 125/69; PULSE 102; RESP 16; TEMP 36.4; O2SAT 94
--- NOTE | 2019-02-15 07:14 | W.ED.GENAD ---
Discharge Plan Disposition Patient Disposition: HOME Condition: Good Discharge Details Chief Complaint: DentalOral Clinical Impression: Mouth pain Primary Care Provider: Lidia Benson ED Provider: Sid Ash [place] Meds and New Rx's Prescriptions: New ibuprofen 600 mg tablet 600 mg PO TID-QID PRN (Reason: pain) Qty: 20 RF: 0 Continued Jardiance 25 mg tablet 25 mg PO DAILY RF: 0 gabapentin 300 mg capsule 300 mg PO QHS RF: 0 Lyrica 100 mg capsule 100 mg PO BID Qty: 60 RF: 5 aripiprazole [Abilify] 30 MG tablet 30 mg PO DAILY Qty: 30 RF: 5 levothyroxine 75 MCG tablet 75 mcg PO DAILY RF: 0 divalproex [Depakote] 500 mg tablet,delayed release (DR/EC) 2,000 mg PO DAILY RF: 0 olanzapine [Zyprexa] 7.5 mg Tablet 7.5 mg PO QHS RF: 0 Discharge Instructions Additional Instructions: Ibuprofen prescribed as requested. You may wish to try [id number] Orajel as well. Follow-up with primary care next week. Return to ED for fever, facial swelling, difficulty breathing Referrals: Lidia Benson [Primary Care Provider] - Medical Decision Making Patient presenting with left upper gum and mouth pain. She is edentulous and this portion of her mouth. On exam I do not appreciate any evidence of swelling or infection. She was seen by ENT yesterday. She is requesting prescription for ibuprofen for the pain. Will give patient prescription and refer her back to her primary care. HPI General Mode of arrival: ambulatory. Date/Time Provider Initiated Documentation: 02/15/19 07:07. Limitations to Documentation: no limitations. Information obtained by: patient. HPI Narrative: Patient presents to ED complaining of continued left upper gum and mouth pain. She states that she cut that side of her mouth with a lobster fork. She has been on antibiotic which is completed. She reports being seen by ear nose and throat yesterday. She continues to complain of pain. It is intermittent and not constant. She has no fever. She has no difficulty breathing or swallowing. She has no facial swelling. Related Data Home Medications Medication Instructions Recorded Confirmed levothyroxine 75 mcg PO DAILY 03/15/16 02/15/19 aripiprazole [Abilify] 30 mg PO DAILY #30 tab-cap 18 02/15/19 divalproex 500 mg tablet,delayed 2,000 mg PO DAILY tab 10/25/18 02/15/19 release empagliflozin 25 mg tablet 25 mg PO DAILY 10/25/18 02/15/19 gabapentin 300 mg capsule 300 mg PO QHS cap 10/25/18 02/15/19 pregabalin 100 mg capsule 100 mg PO BID #60 cap 10/25/18 02/15/19 olanzapine [Zyprexa] 7.5 mg PO QHS 01/22/19 02/15/19 ibuprofen 600 mg PO TID-QID PRN #20 tab 02/15/19 Previous Rx's Medication Instructions Recorded aripiprazole [Abilify] 30 mg PO DAILY #30 tab-cap 11/29/17 pregabalin 100 mg capsule 100 mg PO BID #60 cap 10/25/18 ibuprofen 600 mg PO TID-QID PRN #20 tab 02/15/19 Allergies Allergy/AdvReac Type Severity Reaction Status Date / Time codeine Allergy Mild Unverified 02/15/19 07:06 General Stated Complaint: DentalOral CECILIA: 5 Review of Systems Constitutional Denies chills and Denies fever(s) ENT Denies facial pain, Reports mouth pain and Denies sore throat [facility] Medical History Trigeminal neuralgia of left side of face (Acute 01/03/18) Schizophrenia (Chronic) History of hypothyroidism (Chronic) Anovulatory bleeding (Chronic) Type 2 diabetes mellitus (Chronic) Surgical History Ligation of fallopian tube (Inactive) Social History Smoking/Tobacco Use Status: Current every day Tobacco Type: cigarettes Alcohol Intake: never Drug use: Never Substance use type: does not use Number of Children: 2 Do you feel safe at home: Yes Do you feel safe in your relationship?: Yes Exam Const General: cooperative, healthy appearing and comfortable Orientation: alert and oriented x3 HENMT Head: normal to inspection Face and sinus: normal facial exam Mouth: oral mucosae normal, lip normal, tongue normal and oropharynx normal Course Vital Signs Temperature 97.5 F L 02/15/19 07:03 Pulse 102 H 02/15/19 07:03 Respiratory Rate 16 02/15/19 07:03 Blood Pressure 125/69 02/15/19 07:03 Pulse Oximetry 94 L 02/15/19 07:03 Temperature 97.5 F L 02/15/19 07:03 Temperature Source Temporal Artery Scan 02/15/19 07:03 Pulse 102 H 02/15/19 07:03 Respiratory Rate 16 02/15/19 07:03 Respiratory Effort Non-Labored 02/15/19 07:04 Blood Pressure 125/69 02/15/19 07:03 Blood Pressure Position Sitting 02/15/19 07:03 Pulse Oximetry 94 L 02/15/19 07:03 Oxygen Delivery Method Room Air 02/15/19 07:03 Oxygen Flow Rate 0 02/15/19 07:03 Pain Level 9 02/15/19 07:07
--- NOTE | 2019-02-15 07:22 | ED.GENADUL_ITS ---
Discharge Plan Disposition Patient Disposition: HOME Condition: Good Discharge Details Chief Complaint: DentalOral Clinical Impression: Mouth pain Primary Care Provider: Lidia Benson ED Provider: Sid Ash [place] Meds and New Rx's Prescriptions: New ibuprofen 600 mg tablet 600 mg PO TID-QID PRN (Reason: pain) Qty: 20 RF: 0 Continued Jardiance 25 mg tablet 25 mg PO DAILY RF: 0 gabapentin 300 mg capsule 300 mg PO QHS RF: 0 Lyrica 100 mg capsule 100 mg PO BID Qty: 60 RF: 5 aripiprazole [Abilify] 30 MG tablet 30 mg PO DAILY Qty: 30 RF: 5 levothyroxine 75 MCG tablet 75 mcg PO DAILY RF: 0 divalproex [Depakote] 500 mg tablet,delayed release (DR/EC) 2,000 mg PO DAILY RF: 0 olanzapine [Zyprexa] 7.5 mg Tablet 7.5 mg PO QHS RF: 0 Discharge Instructions Additional Instructions: Ibuprofen prescribed as requested. You may wish to try [id number] Orajel as well. Follow-up with primary care next week. Return to ED for fever, facial swelling, difficulty breathing Referrals: Lidia Benson [Primary Care Provider] - Medical Decision Making Patient presenting with left upper gum and mouth pain. She is edentulous and this portion of her mouth. On exam I do not appreciate any evidence of swelling or infection. She was seen by ENT yesterday. She is requesting prescription for ibuprofen for the pain. Will give patient prescription and refer her back to her primary care. HPI General Mode of arrival: ambulatory . Date/Time Provider Initiated Documentation: 02/15/19 07:07 . Limitations to Documentation: no limitations . Information obtained by: patient . HPI Narrative: Patient presents to ED complaining of continued left upper gum and mouth pain. She states that she cut that side of her mouth with a lobster fork. She has been on antibiotic which is completed. She reports being seen by ear nose and throat yesterday. She continues to complain of pain. It is intermittent and not constant. She has no fever. She has no difficulty breathing or swallowing. She has no facial swelling. Related Data Home Medications Medication Instructions Recorded Confirmed levothyroxine 75 mcg PO DAILY 03/15/16 02/15/19 aripiprazole [Abilify] 30 mg PO DAILY #30 tab-cap 18 02/15/19 divalproex 500 mg tablet,delayed 2,000 mg PO DAILY tab 10/25/18 02/15/19 release empagliflozin 25 mg tablet 25 mg PO DAILY 10/25/18 02/15/19 gabapentin 300 mg capsule 300 mg PO QHS cap 10/25/18 02/15/19 pregabalin 100 mg capsule 100 mg PO BID #60 cap 10/25/18 02/15/19 olanzapine [Zyprexa] 7.5 mg PO QHS 01/22/19 02/15/19 ibuprofen 600 mg PO TID-QID PRN #20 tab 02/15/19 Previous Rx's Medication Instructions Recorded aripiprazole [Abilify] 30 mg PO DAILY #30 tab-cap 11/29/17 pregabalin 100 mg capsule 100 mg PO BID #60 cap 10/25/18 ibuprofen 600 mg PO TID-QID PRN #20 tab 02/15/19 Allergies Allergy/AdvReac Type Severity Reaction Status Date / Time codeine Allergy Mild Unverified 02/15/19 07:06 General Stated Complaint: DentalOral CECILIA: 5 Review of Systems Constitutional Denies chills and Denies fever(s) ENT Denies facial pain, Reports mouth pain and Denies sore throat [facility] Medical History Trigeminal neuralgia of left side of face (Acute 01/03/18) Schizophrenia (Chronic) History of hypothyroidism (Chronic) Anovulatory bleeding (Chronic) Type 2 diabetes mellitus (Chronic) Surgical History Ligation of fallopian tube (Inactive) Social History Smoking/Tobacco Use Status: Current every day Tobacco Type: cigarettes Alcohol Intake: never Drug use: Never Substance use type: does not use Number of Children: 2 Do you feel safe at home: Yes Do you feel safe in your relationship?: Yes Exam Const General: cooperative, healthy appearing and comfortable Orientation: alert and oriented x3 HENMT Head: normal to inspection Face and sinus: normal facial exam Mouth: oral mucosae normal, lip normal, tongue normal and oropharynx normal Course Vital Signs Temperature 97.5 F L 02/15/19 07:03 Pulse 102 H 02/15/19 07:03 Respiratory Rate 16 02/15/19 07:03 Blood Pressure 125/69 02/15/19 07:03 Pulse Oximetry 94 L 02/15/19 07:03 Temperature 97.5 F L 02/15/19 07:03 Temperature Source Temporal Artery Scan 02/15/19 07:03 Pulse 102 H 02/15/19 07:03 Respiratory Rate 16 02/15/19 07:03 Respiratory Effort Non-Labored 02/15/19 07:04 Blood Pressure 125/69 02/15/19 07:03 Blood Pressure Position Sitting 02/15/19 07:03 Pulse Oximetry 94 L 02/15/19 07:03 Oxygen Delivery Method Room Air 02/15/19 07:03 Oxygen Flow Rate 0 02/15/19 07:03 Pain Level 9 02/15/19 07:07
== END 2019-02-15 07:26 | disposition home or self-care (01) ==
PROVIDERS: Emergency Provider Emergency Medicine; PCP Nurse Practitioner
DX: K08.89 Other specified disorders of teeth and supporting structures (principal)
CPT/HCPCS: 99282

== ENCOUNTER 2019-02-16 03:50 | Emergency (ER) | payer MEDICAID, SELFPAY ==
[2019-02-16 03:53] VITALS: BP 137/100; PULSE 103; RESP 20; TEMP 36.1; O2SAT 99
[2019-02-16] MEDS: Normal Saline Flush 10 ML SYR IVP (04:30)
[2019-02-16] MEDS: Acetaminophen 500 MG TAB 1000 MG PO (04:30)
--- NOTE | 2019-02-16 04:33 | ED.GENADUL_ITS ---
Discharge Plan Disposition Patient Disposition: HOME Condition: Good Discharge Details Chief Complaint: DentalOral Clinical Impression: Mouth pain Primary Care Provider: Lidia Benson ED Provider: Sid Ash [place] Meds and New Rx's Prescriptions: New benzocaine 20 % gel 1 applic MM QID PRN (Reason: mouth irritation) Qty: 30 RF: 0 Continued Jardiance 25 mg tablet 25 mg PO DAILY RF: 0 gabapentin 300 mg capsule 300 mg PO QHS RF: 0 Lyrica 100 mg capsule 100 mg PO BID Qty: 60 RF: 5 aripiprazole [Abilify] 30 MG tablet 30 mg PO DAILY Qty: 30 RF: 5 levothyroxine 75 MCG tablet 75 mcg PO DAILY RF: 0 divalproex [Depakote] 500 mg tablet,delayed release (DR/EC) 2,000 mg PO DAILY RF: 0 olanzapine [Zyprexa] 7.5 mg Tablet 7.5 mg PO QHS RF: 0 ibuprofen 600 mg tablet 600 mg PO TID-QID PRN (Reason: pain) Qty: 20 RF: 0 Discharge Instructions Additional Instructions: CT scan this morning is negative. There is no evidence of infection, abscess, foreign body. Review of your medical records show that you have had left upper jaw pain for over a year intermittently. You have been treated for trigeminal neuralgia because of this. Follow-up with primary care and with neurology. You may use ibuprofen and acetaminophen in addition to the benzocaine that you have been given this morning. Do not take Aleve while taking ibuprofen. Return to ED if you develop inability to swallow, difficulty breathing, fever. Referrals: Lidia Benson [Primary Care Provider] - Jannette Salter MD [ [facility] STAFF PHYSICIAN] - Medical Decision Making Patient returns with continued complaints of pain in the left upper jaw. Initially, yesterday when seen, she reported related to previous injury from a fork. However, I have done a more extensive medical record review. Patient has been complaining of left upper jaw pain since way back in September 2017. In October [address] she [address] with contrast done which was negative. Ultimately in the spring 2017 seen by neurology and diagnosed with trigeminal neuralgia. No further visits to the ED in 2018. Jaw pain returned in winter 2018 per a neurology note. In December of this year, seen for the wound in her mouth. CT scan of the neck obtained due to the wound. No abscess was seen. Possibility of foreign body in relation to where the wound was was noted. Review of the ENT notes state that she has continued to complain of pain despite no apparent lesions after wound healed with clindamycin. Consideration for repeat CT scan due to possibility of foreign body was mentioned. Patient returned this morning with severe pain. I see nothing on exam and suspect that this is related to her trigeminal neuralgia which was diagnosed previously. However, given the December CT scan we will proceed with a facial CT this morning. If negative and no foreign body or abscess will refer back to neurology. Of note, benzocaine 20% applied to the left upper jaw mucosal membranes relieved her pain. She is also given Tylenol. 05:40 - CT scan read by radiology as negative. No foreign body, abscess, swelling. Patient will be given benzocaine 20% to use prn in addition to ibuprofen and acetaminophen. Refer to PCP and neurology. Medical Records Medical records reviewed: Yes I reviewed the patient's medical records. HPI General Mode of arrival: ambulatory . Date/Time Provider Initiated Documentation: 02/16/19 03:56 . Limitations to Documentation: no limitations . Information obtained by: patient and old records reviewed . HPI Narrative: Patient returns this morning with continued complaint of left upper jaw pain. Seen yesterday by me for same. Reports that she had seen ENT prior and that this was related to injury to the area with a fork. Given ibuprofen which she states is not helping. Returns this morning crying complaining of continued pain. Related Data Home Medications Medication Instructions Recorded Confirmed levothyroxine 75 mcg PO DAILY 03/15/16 02/15/19 aripiprazole [Abilify] 30 mg PO DAILY #30 tab-cap 11/29/17 02/15/19 divalproex 500 mg tablet,delayed 2,000 mg PO DAILY tab 10/25/18 02/15/19 release empagliflozin 25 mg tablet 25 mg PO DAILY 10/25/18 02/15/19 gabapentin 300 mg capsule 300 mg PO QHS cap 10/25/18 02/15/19 pregabalin 100 mg capsule 100 mg PO BID #60 cap 10/25/18 02/15/19 olanzapine [Zyprexa] 7.5 mg PO QHS 01/22/19 02/15/19 ibuprofen 600 mg PO TID-QID PRN #20 tab 02/15/19 benzocaine 1 applic MM QID PRN #30 gm 02/16/19 Previous Rx's Medication Instructions Recorded aripiprazole [Abilify] 30 mg PO DAILY #30 tab-cap 11/29/17 pregabalin 100 mg capsule 100 mg PO BID #60 cap 10/25/18 ibuprofen 600 mg PO TID-QID PRN #20 tab 02/15/19 benzocaine 1 applic MM QID PRN #30 gm 02/16/19 Allergies Allergy/AdvReac Type Severity Reaction Status Date / Time codeine Allergy Mild Unverified 02/16/19 03:56 General Stated Complaint: DentalOral CECILIA: 4 Review of Systems Review of Systems As documented in HPI otherwise negative as below. Const: no fever, chills, weakness Resp: no cough, SOB, pleuritic pain CV: no CP, diaphoresis, edema, syncope GI: no abdominal pain, nausea, vomiting, diarrhea Neuro: no headache, numbness, focal weakness, confusion PFSH Social History Smoking/Tobacco Use Status: Current every day Tobacco Type: cigarettes Alcohol Intake: never Drug use: Never Substance use type: does not use Number of Children: 2 Do you feel safe at home: Yes Do you feel safe in your relationship?: Yes Exam Narrative Exam Narrative: Vitals: Afebrile. Mild elevation of blood pressure and heart rate. Const: WDWN female in NAD. HEENT: NC/AT. Normal facial exam. Normal oral cavity exam except for poor dentition right upper molars. No swelling, no tenderness, no drainage. Oropharynx normal. Eyes: Normal conjunctiva and sclera. Neck: Supple. Trachea midline. No adenopathy. Lungs: Normal respiratory effort. Neuro: A+O x 3. CN II-XII in tact. Normal speech, strength, sensation and gait. Skin: Warm and dry without rash or erythema involving head/neck. Course Vital Signs Temperature 97 F L 02/16/19 03:53 Pulse 103 H 02/16/19 03:53 Respiratory Rate 20 02/16/19 03:53 Blood Pressure 137/100 H 02/16/19 03:53 Pulse Oximetry 99 02/16/19 03:53 Temperature 97 F L 02/16/19 03:53 Temperature Source Temporal Artery Scan 02/16/19 03:53 Pulse 103 H 02/16/19 03:53 Respiratory Rate 20 02/16/19 03:53 Respiratory Effort Non-Labored 02/16/19 03:53 Blood Pressure 137/100 H 02/16/19 03:53 Blood Pressure Position Sitting 02/16/19 03:53 Pulse Oximetry 99 02/16/19 03:53 Oxygen Delivery Method Room Air 02/16/19 03:53 Oxygen Flow Rate 0 02/16/19 03:53 Pain Level 9 02/16/19 03:56
[2019-02-16] MEDS: Benzocaine 20% Gel 30 GM JAR MM (04:35)
[2019-02-16] MEDS: Omnipaque 350 MG/ML 100 ML BTL IJ (04:45)
--- NOTE | 2019-02-16 04:47 | DI.CT_ITS ---
SYMPTOM/DIAGNOSIS: LT UPPER GUM AND FACIAL PAIN FACIAL CT: The orbits and retro-orbital soft tissues are unremarkable. The osseous structures are intact and unremarkable. The visualized paranasal sinuses are clear. Soft tissues are unremarkable. IMPRESSION: Negative examination.
--- NOTE | 2019-02-16 05:36 | DI.VRAD_ITS ---
EXAM: CT Maxillofacial With Contrast EXAM DATE/TIME: 02/16/2019 4:06 AM CLINICAL HISTORY: 38 years old, female; Patient HX: Left upper gum/face pain x1 week. Worsening in past 24 hours TECHNIQUE: Imaging protocol: Axial computed tomography images of the face with intravenous contrast. Coronal and sagittal reformatted images were created and reviewed. Radiation optimization: All CT scans at this facility use at least one of these dose optimization techniques: automated exposure control; mA and/or kV adjustment per patient size (includes targeted exams where dose is matched to clinical indication); or iterative reconstruction. Contrast material: [id number]; Contrast volume: 100 ml; Contrast route: IV 20G RT FOREARM; COMPARISON: No relevant prior studies available. FINDINGS: Orbits: No acute intraorbital abnormality. Globes are unremarkable. Sinuses: Unremarkable. No air-fluid levels. Bones/joints: No acute fracture. Soft tissues: Unremarkable. IMPRESSION: No acute findings. Dictated and Authenticated by: Oliver Shook MD. Ordering:SLY Lau MD
--- NOTE | 2019-02-16 05:57 | NUR.NOTE ---
Nursing Note: Benzocaine 20% decreased the pain, remainder of medication sent home with the patient
== END 2019-02-16 05:45 | disposition home or self-care (01) ==
PROVIDERS: Emergency Provider Emergency Medicine; PCP Nurse Practitioner
DX: K08.89 Other specified disorders of teeth and supporting structures (principal); E11.9 Type 2 diabetes mellitus without complications
CPT/HCPCS: 99285; 70487; 99284; J3490

== ENCOUNTER 2019-02-22 09:26 | Outpatient (REF) | payer MEDICAID, SELFPAY ==
--- NOTE | 2019-02-22 08:30 | PAPFT_PTH ---
PATIENT: Shaneka Samano LOC: [facility] U#:[id number] AGE/SX: 38/F ROOM: RE02/22/[address]: Lidia Benson : 1980 BED: DIS: 02/22/2019 SPEC #: [id number] RECD: 02/22/19 12:55 STATUS: DA GUZMÁN #: [id number] CATHIE: 02/22/19 08:[address]: Lidia Benson DEPT: [facility] Cytology RECD BY: Marilee Whitfield Tissues: 1 - CX/ENDOCX FOR PAP SMEARS Procedures: PAP THIN PREP/UVM Screening HPV DNA PROBE Comments: [id number]
== END 2019-02-22 09:46 ==
LOC: NCHCN 09:26
PROVIDERS: PCP Nurse Practitioner; Visit Provider Nurse Practitioner
DX: Z12.4 Encounter for screening for malignant neoplasm of cervix (principal); Z11.51 Encounter for screening for human papillomavirus (HPV); Z00.00 Encounter for general adult medical examination without abnormal findings
CPT/HCPCS: 88142; 87624

== ENCOUNTER 2019-03-06 00:44 | Outpatient (CLI) | payer MEDICAID, SELFPAY ==
--- NOTE | 2019-03-06 13:55 | DI.MRI_ITS ---
SYMPTOMS/DIAGNOSIS: TRIGEMINAL NEURALGIA, LEFT SIDE OF FACE, G50.0 MRI OF THE BRAIN AND INTERNAL AUDITORY CANALS: Routine sequences were performed of the brain. Thin axial and coronal sequences as well as post contrast images were performed through the internal auditory canals and brain stem. The 5th nerves appear symmetric. No abnormal enhancement is seen along the 5th nerves. No mass is identified. The ventricles are normal in size. There are no abnormal high signal lesions in the white matter. The vascular flow voids appear intact. The orbits, sinuses and mastoid air cells are unremarkable. IMPRESSION: Negative MRI of the brain and internal auditory canals.
[2019-03-06] MEDS: Normal Saline Flush 10 ML SYR IVP (14:46)
[2019-03-06] MEDS: Gadoterate meglumine 20 ML VIAL 18 ML IVP (14:47)
== END 2019-03-06 01:04 ==
PROVIDERS: PCP Nurse Practitioner; Visit Provider Psychiatry & Neurology Neurology
DX: G50.0 Trigeminal neuralgia (principal)
CPT/HCPCS: 70553

== ENCOUNTER 2019-04-16 21:51 | Emergency (ER) | payer MEDICAID, SELFPAY ==
[2019-04-16 21:55] VITALS: BP 121/95; PULSE 107; RESP 16; TEMP 36.3; O2SAT 98
--- NOTE | 2019-04-16 22:16 | W.ED.GENAD ---
Discharge Plan Disposition Patient Disposition: HOME Condition: Stable Discharge Details Chief Complaint: DentalOral Clinical Impression: Trigeminal neuralgia of left side of face Primary Care Provider: Lidia Benson ED Provider: Mickie Mary Home Meds and New Rx's Prescriptions: New acetaminophen [Tylenol Extra Strength] 500 mg tablet 500 mg PO Q4H PRN (Reason: pain) Qty: 20 RF: 0 ibuprofen 600 mg tablet 600 mg PO Q6H PRN (Reason: pain) Qty: 20 RF: 0 Continued pregabalin 150 mg capsule 150 mg PO BID Qty: 60 RF: 5 Jardiance 25 mg tablet 25 mg PO DAILY RF: 0 gabapentin 300 mg capsule 300 mg PO QHS RF: 0 aripiprazole [Abilify] 30 MG tablet 30 mg PO DAILY Qty: 30 RF: 5 levothyroxine 75 MCG tablet 75 mcg PO DAILY RF: 0 divalproex [Depakote] 500 mg tablet,delayed release (DR/EC) 2,000 mg PO DAILY RF: 0 olanzapine [Zyprexa] 7.5 mg Tablet 7.5 mg PO QHS RF: 0 ibuprofen 600 mg tablet 600 mg PO TID-QID PRN (Reason: pain) Qty: 20 RF: 0 No Action tramadol 50 mg tablet 50 mg PO Q8H PRN (Reason: pain) Qty: 10 RF: 0 Discharge Instructions Instructions: Trigeminal Neuralgia (ED) Additional Instructions: Encourage hydration. May continue with topical benzocaine gel, tylenol and ibuprofen as needed for pain. Please keep your upcoming appointment with Dr. Henry. If you develop swelling, fevers/chills, increased pain or other new/worsening symptoms please seek care urgently once again. Referrals: Lidia Benson [Primary Care Provider] - Jannette Salter MD [ [facility] STAFF PHYSICIAN] - Discharge Data Discharge Date/Time-TO BE ENTERED AT DEPARTURE: 04/16/19 23:45 Medical Decision Making Patient is a 38-year-old female presents today with chief complaint of left upper dental pain. She is been having this pain on and off for some time. Has been evaluated by neurologist this is been concerned to be trigeminal neuralgia. Patient did have these teeth removed and is edentulous in this area but there is concern initially that this pain was from poor dentition. On exam, she appears nontoxic. She is resting comfortably. She does not appear to be in any discomfort. She reports she has been using anti-inflammatory for discomfort as well as topical options. Typically, the topical medication does work well for her. I reviewed the notes from neurologist, patient did recently have an MRI and has follow-up appointment scheduled with neurology. I do not see any evidence of infection on today's exam. Her neurologic exam is intact. Will use topical options as well as Tylenol to help with her discomfort Patient is feeling improved after topical Hurricaine gel and Tylenol. Encourage hydration. She is given strict return precautions. Advise follow-up with neurology and primary care. All of her questions and concerns were addressed and she is in agreement this plan. [facility] General Mode of arrival: ambulatory. Date/Time Provider Initiated Documentation: 04/16/19 22:15. Limitations to Documentation: no limitations. Information obtained by: patient, family and RN notes reviewed. History of Present Illness 38 year old F presents to the emergency department with the chief complaint of left dental pain, described as severe and similar to prior episodes, Quality is described as aching, and is localized to the mouth. Patient reports no radiation. Patient started experiencing this day(s) (1) and it has been constant. No relieving factors improve symptom(s), No exacerbating factors reported . Patient notes no other symptoms.; denies diaphoresis, fever/chills, headaches, loss of appetite, nausea/vomiting, rash and shortness of breath. Patient did receive the following treatments prior to arrival, none Related Data Home Medications Medication Instructions Recorded Confirmed levothyroxine 75 mcg PO DAILY 03/15/16 02/20/19 aripiprazole [Abilify] 30 mg PO DAILY #30 tab-cap 11/29/17 02/20/19 divalproex 500 mg tablet,delayed 2,000 mg PO DAILY tab 10/25/18 02/20/19 release empagliflozin 25 mg tablet 25 mg PO DAILY 10/25/18 02/20/19 gabapentin 300 mg capsule 300 mg PO QHS cap 10/25/18 02/20/19 olanzapine [Zyprexa] 7.5 mg PO QHS 01/22/19 02/20/19 ibuprofen 600 mg PO TID-QID PRN #20 tab 02/15/19 02/20/19 pregabalin 150 mg capsule 150 mg PO BID #60 cap 02/20/19 02/20/19 acetaminophen [Tylenol Extra 500 mg PO Q4H PRN #20 tab 04/16/19 Strength] ibuprofen 600 mg PO Q6H PRN #20 tab 04/16/19 tramadol 50 mg tablet 50 mg PO Q8H PRN #10 tab 04/18/19 04/18/19 Previous Rx's Medication Instructions Recorded aripiprazole [Abilify] 30 mg PO DAILY #30 tab-cap 11/29/17 ibuprofen 600 mg PO TID-QID PRN #20 tab 02/15/19 pregabalin 150 mg capsule 150 mg PO BID #60 cap 02/20/19 acetaminophen [Tylenol Extra 500 mg PO Q4H PRN #20 tab 04/16/19 Strength] ibuprofen 600 mg PO Q6H PRN #20 tab 04/16/19 tramadol 50 mg tablet 50 mg PO Q8H PRN #10 tab 04/18/19 Allergies Allergy/AdvReac Type Severity Reaction Status Date / Time codeine Allergy Mild Unverified 04/18/19 14:29 General Stated Complaint: DentalOral CECILIA: 4 Review of Systems Constitutional Reports as per HPI, Denies chills, Denies fatigue, Denies fever(s), Denies headache(s) and Denies poor appetite Eyes Denies change in vision and Denies irritation ENT Reports as per HPI, Reports dental pain, Denies dysphagia, Denies dizziness, Denies dry mouth, Denies ear discharge, Denies otalgia, Reports facial pain, Denies headache(s), Denies hoarseness, Denies lip swelling, Denies nasal congestion, Denies odynophagia and Denies sore throat Cardiovascular Reports as per HPI and Denies chest pain Respiratory Reports as per HPI and Denies cough Gastrointestinal Reports as per HPI, Denies dysphagia, Denies nausea, Denies odynophagia and Denies vomiting Integumentary/Breasts Reports as per HPI, Denies erythema, Denies rash and Denies skin pain Neurologic Reports as per HPI, Denies dizziness and Denies headache(s) Endocrine Denies fatigue Allergic/Immunologic Denies lip swelling PFSH Medical History Anovulatory bleeding (Chronic) H/O suicide attempt (Acute) History of hypothyroidism (Chronic) RLS (restless legs syndrome) (Acute) Schizoaffective disorder (Acute) Schizophrenia (Chronic) Trigeminal neuralgia of left side of face (Acute 01/03/18) Type 2 diabetes mellitus (Chronic) Surgical History H/O pilonidal cyst (Chronic) Ligation of fallopian tube (Inactive) S/P foot surgery (Acute) Social History Smoking/Tobacco Use Status: Current every day Tobacco Type: cigarettes Alcohol Intake: never Drug use: Never Substance use type: does not use Number of Children: 2 current occupation: Disabled Do you feel safe at home: Yes Do you feel safe in your relationship?: Yes Exam Const General: cooperative, healthy appearing, comfortable, no acute distress, well developed and well groomed Nutritional Appearance: average body habitus and well nourished Orientation: alert and awake [facility] Head: normal to inspection, normocephalic and atraumatic Ears: hearing grossly normal bilaterally, external ears normal and TM's normal bilaterally General nose exam: external nose normal and nares normal Face and sinus: normal facial exam, sinuses nontender and face symmetric Teeth and gingiva: edentulous (area of pain is edentulous, no erythema, warmth, fluctuance) and poor dentition Throat: posterior oropharynx normal, tonsils normal and uvula midline Eyes General: appearance normal, both eyes and all related structures Neck Neck: normal visual inspection, full ROM, no lymphadenopathy, supple and no anterior neck swelling Resp Effort & Inspection: normal respiratory effort, able to speak in complete sentences and no respiratory distress Auscultation: clear to auscultation bilaterally, no rales, no rhonchi and no wheezes Cardio Rate: regular rate Rhythm: regular rhythm Heart Sounds: S1 normal and S2 normal Skin General skin exam: no rashes or lesions noted Trauma: no lacerations or abrasions Neuro General: alert and awake Cranial Nerves: CN's II-XI intact bilaterally Cognition: normal cognition Speech: speech normal Gait: normal gait Psych Appearance: grossly normal and well kempt Mental Status: mental status grossly normal Speech and Movement: speech and movement normal Course Vital Signs Temperature 36.3 C L 04/16/19 21:55 Pulse 107 H 04/16/19 21:55 Respiratory Rate 16 04/16/19 21:55 Blood Pressure 121/95 H 04/16/19 21:55 Pulse Oximetry 98 04/16/19 21:55 Temperature 36.3 C L 04/16/19 21:55 Temperature Source Skin 04/16/19 21:55 Pulse 107 H 04/16/19 21:55 Respiratory Rate 16 04/16/19 21:55 Respiratory Effort Non-Labored 04/16/19 21:58 Blood Pressure 121/95 H 04/16/19 21:55 Blood Pressure Position Sitting 04/16/19 21:55 Pulse Oximetry 98 04/16/19 21:55 Oxygen Delivery Method Room Air 04/16/19 21:55 Oxygen Flow Rate 0 04/16/19 21:55
[2019-04-16 23:47] VITALS: BP 121/95; PULSE 107; RESP 16; TEMP 36.3; O2SAT 98
== END 2019-04-16 23:45 | disposition home or self-care (01) ==
PROVIDERS: Emergency Provider Physician Assistant; PCP Nurse Practitioner
DX: G50.0 Trigeminal neuralgia (principal)
CPT/HCPCS: 99282

== ENCOUNTER 2019-05-23 13:17 | Outpatient (REF) | payer MEDICAID, SELFPAY | END 2019-05-23 13:37 | LOC: NCHCN 13:17 | PROVIDERS: PCP Nurse Practitioner; Visit Provider Nurse Practitioner | DX: N76.0 Acute vaginitis (principal) | CPT/HCPCS: 87480; 87510; 87660 ==

== ENCOUNTER 2019-06-10 07:13 | Outpatient (CLI) | payer MEDICAID, SELFPAY ==
[2019-06-10 09:57] LABS: Abs Immature Grans 0.15 k/cumm (0.0-0.09); Absolute Basophil Count 0.04 k/cumm (0.0-0.2); Absolute Eosinophil Count 0.15 k/cumm (0.0-0.7); Absolute Lymphocyte Count 3.31 k/cumm (1.2-3.4); Absolute Monocyte Count 0.84 k/cumm (0.11-0.7); Basophils % 0.5; Eosinophils % 1.7; HCT 44.7 % (36.0-46.0); HGB 15.4 g/dL (12.0-15.5); Immature Grans % 1.7; Lymphocytes % 38.1; Mean Corp. HGB Concentration 34.5 g/dL (32.0-36.0); Mean Corpuscular Hemoglobin 33.3 pg (27.0-33.0); Mean Corpuscular Volume 96.5 fL (80-95); Mean Platelet Volume 9.6 fL (8.0-11.0); Monocytes % 9.7; Neutrophils % 48.3; Platelet Count 317 x1000/uL (130-400); RBC 4.63 m/cumm (4.00-5.20); RBC Distribution Width 12.5 % (11.7-14.6); White Blood Cell Count 8.69 k/cumm (4.4-10.8)
[2019-06-10 10:05] LABS: VALPROIC ACID 75.4 ug/mL (50-100)
[2019-06-10 11:01] LABS: ALT 102 U/L (14-59); AST 45 U/L (15-37); Albumin 3.6 g/dL (3.4-5.0); Alkaline Phosphatase 249 U/L (46-116); Anion Gap 16.5 mmol/L (3-11); BUN 15 mg/dL (7-18); Bilirubin, Total 0.3 mg/dL (0.2-1.0); CO2 21.5 mmol/L (21.0-32.0); CREATININE 0.87 mg/dL (0.55-1.02); Calcium 9.4 mg/dL (8.5-10.1); Chloride 99 mmol/L (98-107); Glucose 268 mg/dL (70-100); Potassium 3.8 mmol/L (3.5-5.1); Sodium 137 mmol/L (136-145); TSH 10.23 uIU/mL (0.36-3.74); Total Protein 7.5 g/dL (6.4-8.2)
[2019-06-11 07:09] LABS: Hemoglobin A1C 8.4 % (4.5-6.2)
== END 2019-06-10 07:33 ==
PROVIDERS: PCP Nurse Practitioner Family; Visit Provider Nurse Practitioner Family
DX: F25.0 Schizoaffective disorder, bipolar type (principal); Z79.899 Other long term (current) drug therapy; Z51.81 Encounter for therapeutic drug level monitoring; E11.9 Type 2 diabetes mellitus without complications; R53.83 Other fatigue
CPT/HCPCS: 36415; 80053; 80164; 83036; 84443; 85025

== ENCOUNTER 2019-08-04 18:41 | Emergency (ER) | payer MEDICAID, SELFPAY ==
[2019-08-04 18:53] VITALS: BP 116/63; PULSE 103; RESP 16; TEMP 36.4; O2SAT 96
--- NOTE | 2019-08-04 19:27 | W.ED.GENAD ---
Discharge Plan Disposition Patient Disposition: HOME Condition: Improving Discharge Details Chief Complaint: Diabetes Clinical Impression: Acute hyperglycemia Primary Care Provider: Clau Feliz ED Provider: Paula Joseph Home Meds and New Rx's Prescriptions: No Action fluconazole [Diflucan] 150 mg tablet 150 mg PO Q3D Qty: 3 RF: 0 clotrimazole-betamethasone 1-0.05 % lotion 1 applic TP BID 14 Days Qty: 30 RF: 0 gabapentin 300 mg capsule 300 mg PO QHS RF: 0 aripiprazole [Abilify] 30 MG tablet 30 mg PO DAILY Qty: 30 RF: 5 pregabalin 150 mg capsule 150 mg PO BID Qty: 60 RF: 5 levothyroxine 75 MCG tablet 75 mcg PO DAILY RF: 0 divalproex [Depakote] 500 mg tablet,delayed release (DR/EC) 2,000 mg PO DAILY RF: 0 olanzapine [Zyprexa] 7.5 mg tablet 10 mg PO QHS RF: 0 acetaminophen [Tylenol Extra Strength] 500 mg tablet 500 mg PO Q4H PRN (Reason: pain) Qty: 20 RF: 0 Levemir U-100 Insulin 100 unit/mL Solution 10 unit SUBCUT HS RF: 0 Discharge Instructions Instructions: Diabetic Hyperglycemia (ED) Additional Instructions: You declined all labs or further tests at this time. You are aware that your blood sugar is currently 331. Please follow-up very closely with your primary care doctor. Please very closely monitor your blood sugar. Drink plenty of fluids by mouth. Rest activities as tolerated. Return to the emergency room immediately for persistent hyperglycemia, vomiting, nausea, weakness, ill feeling or worsening symptoms as discussed Discharge Data Discharge Date/Time-TO BE ENTERED AT DEPARTURE: 08/04/19 19:35 Medical Decision Making Is a 38-year-old type II diabetic who recently was changed from oral glycemic medications to Levemir insulin. Patient began insulin regimen yesterday. Patient presents today after noting her blood sugar to be greater than 500. Patient does report associated polyuria polydipsia. Patient does report occasional nausea. Patient was concerned with elevated blood sugar. Upon arrival patient had repeat blood sugar which was approximately 380. Patient reports given her blood sugar is improving she would like to be discharged home without additional testing. I discussed patient's symptoms which are consistent with hyperglycemia. Encouraged lab evaluation to be sure there is no signs of complication. Again patient continues to decline all additional testing. Patient will consent only to an additional blood sugar fingerstick. Repeat blood sugars 331. Patient consents only to discharge home at this time will continue her Levemir follow-up closely with her primary care doctor and regularly check her blood sugar. Patient counseled regarding signs and symptoms for which she should have immediate return. Patient reports her understanding. The patient was stable and requested discharge. Prior to discharge, my usual and customary return precautions were reviewed with the patient - this included follow-up instructions and reasons to return to the Emergency Department if conditions worsens, does not improve as expected, or other new concerns arise. HPI General Date/Time Provider Initiated Documentation: 08/04/19 18:55. HPI Narrative: This is a 38-year-old diabetic patient who recently discontinued oral diabetic medication and was changed to Levemir insulin yesterday. This change was due to poor glycemic control. Patient reports she began Levemir yesterday. Patient reports she is on once daily Levemir. Patient reports she checked her blood sugar prior to arrival and it was greater than 500. Patient arrives and blood sugar initially was in the high 300s. Patient reports since blood sugars are coming down she does not want any additional management. Patient does report polyuria polydipsia. Patient reports feeling dry mucous membranes orally. Patient reports occasional nausea. Patient has been eating and drinking without difficulty. Denies significant abdominal pain at this time. No other concerns or complaints at this time. Related Data Home Medications Medication Instructions Recorded Confirmed levothyroxine 75 mcg PO DAILY 03/15/16 08/04/19 aripiprazole [Abilify] 30 mg PO DAILY #30 tab-cap 11/29/17 08/04/19 divalproex 500 mg tablet,delayed 2,000 mg PO DAILY tab 10/25/18 08/04/19 release gabapentin 300 mg capsule 300 mg PO QHS cap 10/25/18 08/04/19 acetaminophen [Tylenol Extra 500 mg PO Q4H PRN #20 tab 04/16/19 08/04/19 Strength] olanzapine 7.5 mg tablet 10 mg PO QHS tab 05/24/19 08/04/19 pregabalin 150 mg capsule 150 mg PO BID #60 cap 07/30/19 08/04/19 clotrimazole-betamethasone 1 1 applic TP BID 14 Days #30 ml 08/01/19 08/04/19 %-0.05 % lotion fluconazole 150 mg tablet 150 mg PO Q3D #3 tab 08/01/19 08/04/19 insulin detemir U-100 [Levemir 10 unit SUBCUT HS 08/04/19 08/04/19 U-100 Insulin] Previous Rx's Medication Instructions Recorded aripiprazole [Abilify] 30 mg PO DAILY #30 tab-cap 11/29/17 acetaminophen [Tylenol Extra 500 mg PO Q4H PRN #20 tab 04/16/19 Strength] pregabalin 150 mg capsule 150 mg PO BID #60 cap 07/30/19 clotrimazole-betamethasone 1 1 applic TP BID 14 Days #30 ml 08/01/19 %-0.05 % lotion fluconazole 150 mg tablet 150 mg PO Q3D #3 tab 08/01/19 Allergies Allergy/AdvReac Type Severity Reaction Status Date / Time codeine Allergy Mild Unverified 05/24/19 13:11 General Stated Complaint: Diabetes CECILIA: 3 Review of Systems All systems reviewed & are unremarkable except as noted in HPI and below Constitutional Constitutional: Denies chills, Reports fatigue, Denies fever(s), Denies headache(s) and Denies malaise ENT Ears, Nose, Mouth, and Throat: Denies headache(s) Gastrointestinal Gastrointestinal: Denies abdominal pain, Denies nausea and Denies vomiting Genitourinary Genitourinary: Denies dysuria and Reports urinary urgency Neurologic Neurologic: Denies headache(s) Endocrine Endocrine: Reports fatigue [facility] Medical History Anovulatory bleeding (Chronic) H/O suicide attempt (Acute) History of hypothyroidism (Chronic) RLS (restless legs syndrome) (Acute) Schizoaffective disorder (Acute) Schizophrenia (Chronic) Trigeminal neuralgia of left side of face (Acute 01/03/18) Type 2 diabetes mellitus (Chronic) Social History Smoking/Tobacco Use Status: Current every day Alcohol Intake: never Drug use: Never Substance use type: does not use Number of Children: 2 current occupation: Disabled Do you feel safe at home: Yes Do you feel safe in your relationship?: Yes Female Reproductive History Menstrual control method: permanent sterilization (tubal 2002) History History 2 Para 2 Hx # Term Pregnancies Multiple births Hx # Pregnancies Ectopic pregnancies AB induced Hx Number of Living Children AB spontaneous Exam Narrative Exam Narrative: CONST: Healthy appearing patient, in no acute distress. Well hydrated. Alert and alert. HENMT: Head nomocephalic, normal to inspection. Atraumatic. Hearing grossly normal. EYES: General normal appearance. Alignment normal. Eyelids normal. Conjunctiva normal. NECK: Normal visual inspection. FROM. Trachea midline. No Midline tenderness. CHEST: Normal insepection of the chest. RESP: Normal respiratory effort. Speaking full sentences. No cough. No audible wheezing. No retractions. CARDIO: No JVD. Regular rate and rhythm. No murmurs. MUSCULOSKELETAL: Normal Gait. FROM of all extremities. GI: Abdomen soft, nontender. Bowel sounds present in all 4 quadrants. SKIN: Normal. Dry. No rashes. NEURO: Alert and awake. Speech clear. PSYCH: Normal affect. Cooperative. Course Vital Signs Vital signs: Vital Signs Temperature 36.4 C L 08/04/19 18:53 Pulse 103 H 08/04/19 18:53 Respiratory Rate 16 08/04/19 18:53 Blood Pressure 116/63 08/04/19 18:53 Pulse Oximetry 96 08/04/19 18:53 Temperature 36.4 C L 08/04/19 18:53 Temperature Source Temporal Artery Scan 08/04/19 18:53 Pulse 103 H 08/04/19 18:53 Respiratory Rate 16 08/04/19 18:53 Blood Pressure 116/63 08/04/19 18:53 Blood Pressure Position Supine 08/04/19 18:53 Pulse Oximetry 96 08/04/19 18:53 Oxygen Delivery Method Room Air 08/04/19 18:53 Oxygen Flow Rate 0 08/04/19 18:53 Pain Level 0 08/04/19 18:53
== END 2019-08-04 19:35 | disposition home or self-care (01) ==
PROVIDERS: Emergency Provider Physician Assistant; PCP Nurse Practitioner Family
DX: E11.65 Type 2 diabetes mellitus with hyperglycemia (principal); R35.8 Other polyuria; R63.1 Polydipsia; Z79.4 Long term (current) use of insulin
CPT/HCPCS: 36416; 82962; 99282; 99283

== ENCOUNTER 2019-08-23 09:53 | Outpatient (CLI) | payer MEDICAID, SELFPAY ==
[2019-08-23 10:23] LABS: Abs Immature Grans 0.08 k/cumm (0.0-0.09); Absolute Basophil Count 0.03 k/cumm (0.0-0.2); Absolute Eosinophil Count 0.13 k/cumm (0.0-0.7); Absolute Lymphocyte Count 1.98 k/cumm (1.2-3.4); Absolute Monocyte Count 0.55 k/cumm (0.11-0.7); Basophils % 0.4; Eosinophils % 1.7; HCT 44.9 % (36.0-46.0); HGB 15.3 g/dL (12.0-15.5); Lymphocytes % 25.5; Mean Corp. HGB Concentration 34.1 g/dL (32.0-36.0); Mean Corpuscular Hemoglobin 32.1 pg (27.0-33.0); Mean Corpuscular Volume 94.3 fL (80-95); Mean Platelet Volume 9.4 fL (8.0-11.0); Monocytes % 7.1; Neutrophils % 64.3; Platelet Count 289 x1000/uL (130-400); RBC 4.76 m/cumm (4.00-5.20); RBC Distribution Width 12.5 % (11.7-14.6); White Blood Cell Count 7.77 k/cumm (4.4-10.8)
[2019-08-23 10:39] LABS: VALPROIC ACID 38.3 ug/mL (50-100)
[2019-08-23 11:32] LABS: ALT 273 U/L (14-59); AST 299 U/L (15-37); Albumin 3.5 g/dL (3.4-5.0); Alkaline Phosphatase 242 U/L (46-116); Anion Gap 12.4 mmol/L (3-11); BUN 8 mg/dL (7-18); Bilirubin, Total 0.3 mg/dL (0.2-1.0); CO2 25.6 mmol/L (21.0-32.0); CREATININE 0.55 mg/dL (0.55-1.02); Calcium 9.2 mg/dL (8.5-10.1); Chloride 100 mmol/L (98-107); Glucose 313 mg/dL (74-106); Sodium 138 mmol/L (136-145); Total Protein 7.4 g/dL (6.4-8.2)
[2019-08-23 11:39] LABS: TSH (W/Ref FT4) 4.26 uIU/mL (0.36-3.74)
[2019-08-23 13:49] LABS: FREE T4 1.14 ng/dL (0.76-1.46)
== END 2019-08-23 10:13 ==
PROVIDERS: Nurse Practitioner; PCP Nurse Practitioner Family; Visit Provider Nurse Practitioner Family
DX: F25.0 Schizoaffective disorder, bipolar type (principal); Z51.81 Encounter for therapeutic drug level monitoring; Z79.899 Other long term (current) drug therapy; E03.9 Hypothyroidism, unspecified
CPT/HCPCS: 36415; 80053; 80164; 84439; 84443; 85025

== ENCOUNTER 2019-08-31 01:57 | Emergency (ER) | payer MEDICAID, SELFPAY ==
[2019-08-31 02:01] VITALS: BP 185/81; PULSE 106; RESP 18; TEMP 35.7; O2SAT 97
--- NOTE | 2019-08-31 02:12 | ED.GENADUL_ITS ---
Discharge Plan Disposition Patient Disposition: HOME Condition: Stable Discharge Details Chief Complaint: Abd Prob Clinical Impression: Hepatomegaly, Hyperglycemia, Elevated LFTs Primary Care Provider: Clau Feliz ED Provider: Matthew Chicas Home Meds and New Rx's Prescriptions: Continued gabapentin 300 mg capsule 300 mg PO QHS RF: 0 pregabalin 200 mg capsule 200 mg PO BID Qty: 60 RF: 5 aripiprazole [Abilify] 30 MG tablet 30 mg PO DAILY Qty: 30 RF: 5 levothyroxine 75 MCG tablet 75 mcg PO DAILY RF: 0 divalproex [Depakote] 500 mg tablet,delayed release (DR/EC) 2,000 mg PO DAILY RF: 0 olanzapine [Zyprexa] 7.5 mg tablet 10 mg PO QHS RF: 0 Levemir U-100 Insulin 100 unit/mL Solution 10 unit SUBCUT HS RF: 0 Discharge Instructions Additional Instructions: follow up with your primary care provider for continued management of your diabetes and further evaluation for your elevated liver function tests and enlarged liver if you feel more ill, have severe worsening pain or persistent vomit return to the emergency department Medical Decision Making 38 yo female with hx of DM, schizophrenia, who comes in with chief complaint of feeling as though her liver is inflamed becaused she has feeling her abdomen is distented with some right sided abdominal discomfort that is intermittent. Denies fevers, chills, alcohol or drug use. She has mild pain with palpation to the right oblique area no guarding or rebound and abdomen doesn't feel distended but given her complaints and pain will obtian lab work and imaging to eval for ascites, hepatitis, pancreatitis and sbo and monitor. pt's labs show hyperglycemia withotu evidence of dka and persitent elevation in lft's and ct shows hepatomegaly and otherwise no acute findings and pt has no pain on exam now. discussed findings with pt and she is going to f/u with pcp , return precautions given Differential Diagnosis Differential Diagnosis: hepatitis, sbo, ascites Imaging Data Radiologic Study: Attestation: I personally reviewed and interpreted this imaging study as follows: Imaging: CT Scan Radiologist's impression: IMPRESSION: 1. There is marked hepatomegaly with the liver increased in size from 2018. 2. Hepatic steatosis. Lab Data Lab results reviewed: Yes I reviewed the patient's lab results. HPI General Mode of arrival: ambulatory . Date/Time Provider Initiated Documentation: 08/31/19 02:01 . Limitations to Documentation: no limitations . Information obtained by: patient . History of Present Illness 38 year old F presents to the emergency department with the chief complaint of abdominal distention, described as moderate, Patient started experiencing this week(s) (1) and it has been constant. No relieving factors improve symptom(s), No exacerbating factors reported . Patient did receive the following treatments prior to arrival, none Related Data Home Medications Medication Instructions Recorded Confirmed levothyroxine 75 mcg PO DAILY 03/15/16 08/31/19 aripiprazole [Abilify] 30 mg PO DAILY #30 tab-cap 11/29/17 08/31/19 divalproex 500 mg tablet,delayed 2,000 mg PO DAILY tab 10/25/18 08/31/19 release gabapentin 300 mg capsule 300 mg PO QHS cap 10/25/18 08/31/19 olanzapine 7.5 mg tablet 10 mg PO QHS tab 05/24/19 08/31/19 Levemir U-100 Insulin 10 unit SUBCUT HS 08/04/19 08/31/19 pregabalin 200 mg capsule 200 mg PO BID #60 cap 08/23/19 08/31/19 Previous Rx's Medication Instructions Recorded aripiprazole [Abilify] 30 mg PO DAILY #30 tab-cap 11/29/17 pregabalin 200 mg capsule 200 mg PO BID #60 cap 08/23/19 Allergies Allergy/AdvReac Type Severity Reaction Status Date / Time codeine Allergy Mild Unverified 08/31/19 02:04 General Stated Complaint: Abd Prob CECILIA: 3 Review of Systems All systems reviewed & are unremarkable except as noted in HPI and below Constitutional Constitutional: Denies chills, Denies fever(s) and Denies weakness Cardiovascular Cardiovascular: Denies chest pain and Denies dyspnea Respiratory Respiratory: Denies cough and Denies dyspnea Gastrointestinal Gastrointestinal: Denies nausea and Denies vomiting Musculoskeletal Musculoskeletal: Denies joint swelling Neurologic Neurologic: Denies weakness [facility] Social History Smoking/Tobacco Use Status: Current-Occasional Alcohol Intake: never Drug use: Never Substance use type: does not use Number of Children: 2 current occupation: Disabled Do you feel safe at home: Yes Do you feel safe in your relationship?: Yes Female Reproductive History Menstrual control method: permanent sterilization (tubal 2002) History History 2 Para 2 Hx # Term Pregnancies Multiple births Hx # Pregnancies Ectopic pregnancies AB induced Hx Number of Living Children AB spontaneous Exam Const General: no acute distress Orientation: alert HENMT Head: normal to inspection Ears: external ears normal General nose exam: external nose normal Mouth: moist mucous membranes Eyes General: appearance normal, both eyes and all related structures Neck Neck: normal visual inspection Resp Effort & Inspection: normal respiratory effort and able to speak in complete sentences Cardio Rate: regular rate GI Palpation: soft Skin General skin exam: no rashes or lesions noted Neuro General: alert and oriented x3 Extrem General: normal to inspection Psych Mental Status: mental status grossly normal Course Vital Signs Vital signs: Vital Signs Temperature 35.7 C L 08/31/19 02:01 Pulse 106 H 08/31/19 02:01 Respiratory Rate 18 08/31/19 02:01 Blood Pressure 185/81 H 08/31/19 02:01 Pulse Oximetry 97 08/31/19 02:01 Temperature 35.7 C L 08/31/19 02:01 Temperature Source Skin 08/31/19 02:01 Pulse 106 H 08/31/19 02:01 Respiratory Rate 18 08/31/19 02:01 Respiratory Effort Non-Labored 08/31/19 02:05 Blood Pressure 185/81 H 08/31/19 02:01 Pulse Oximetry 97 08/31/19 02:01 Pain Level 0 08/31/19 02:05
[2019-08-31 02:25] LABS: BE (Venous) 2.6 mmol/L (-3-3); HCO3 (Venous) 27 mmol/L (22-28); O2 Sat (Venous) 80 % (70-80); TCO2 (Venous) 24 mmol/L (22-29); pCO2 (Venous) 41 mm/Hg (34-47); pH (Venous) 7.43 (7.32-7.43); pO2 (Venous) 39 mm/Hg (28-44)
[2019-08-31 02:29] LABS: Bilirubin Negative (Negative); Blood Negative (Negative); Clarity Clear (Clear); Glucose 500 mg/dL (Negative); Ketones 15 mg/dL (Negative); Leukocyte Esterase Negative (Negative); Nitrite Negative (Negative); Urobilinogen 0.2 EU/dL (Up TO 0.2)
[2019-08-31] MEDS: Omnipaque 350 MG/ML 100 ML BTL IJ (02:31)
[2019-08-31 02:33] LABS: Abs Immature Grans 0.12 k/cumm (0.0-0.09); Absolute Basophil Count 0.02 k/cumm (0.0-0.2); Absolute Eosinophil Count 0.13 k/cumm (0.0-0.7); Absolute Lymphocyte Count 3.59 k/cumm (1.2-3.4); Absolute Monocyte Count 0.72 k/cumm (0.11-0.7); Basophils % 0.2; Eosinophils % 1.4; HCT 44.6 % (36.0-46.0); HGB 15.3 g/dL (12.0-15.5); Immature Grans % 1.3; Lymphocytes % 38.3; Mean Corp. HGB Concentration 34.3 g/dL (32.0-36.0); Mean Corpuscular Hemoglobin 32.8 pg (27.0-33.0); Mean Corpuscular Volume 95.5 fL (80-95); Mean Platelet Volume 9.6 fL (8.0-11.0); Monocytes % 7.7; Neutrophils % 51.1; Platelet Count 314 x1000/uL (130-400); RBC 4.67 m/cumm (4.00-5.20); RBC Distribution Width 12.4 % (11.7-14.6); White Blood Cell Count 9.38 k/cumm (4.4-10.8)
--- NOTE | 2019-08-31 02:33 | DI.CT_ITS ---
EXAM: CT ABDOMEN PELVIS W CLINICAL HISTORY: right sided abdominal discomfort TECHNIQUE: The exam was performed according to the usual protocol. COMPARISON: CT CAROTID NECK CTA from 12/08/2018 FINDINGS: CT examination of the abdomen and pelvis was performed with a bolus infusion of 100 cc of Omnipaque 3 50. Images obtained through the lung bases are unremarkable. There is hepatomegaly and hepatic stea tosis. Gallbladder is contracted. No biliary dilatation. Normal appearance of pancreas. Normal ap pearance of the spleen. Adrenals and kidneys are unremarkable except for a tiny nonobstructing left renal calculus. Abdominal aorta is of normal diameter and no major vascular abnormality is seen. No significant abdominal wall hernia seen. No abdominal pelvic adenopathy. Appendix is normal. No evidence of diverticulitis or bowel obstruction. [employer] structures are unremark able with vascular clips in the adnexa bilaterally. IMPRESSION: Hepatomegaly and hepatic steatosis. No other specific abnormality.
[2019-08-31 02:39] LABS: INR 0.9 (0.9-1.1); PTT Activated 23.1 sec (21.0-31.4); Prothrombin Time 9.5 sec (9.3-11.0)
[2019-08-31 02:41] LABS: VALPROIC ACID 87.4 ug/mL (50-100)
[2019-08-31 02:42] LABS: ALT 220 U/L (14-59); AST 135 U/L (15-37); Albumin 3.4 g/dL (3.4-5.0); Alkaline Phosphatase 357 U/L (46-116); Anion Gap 15.1 mmol/L (3-11); BUN 7 mg/dL (7-18); Bilirubin, Total 0.2 mg/dL (0.2-1.0); CO2 25.9 mmol/L (21.0-32.0); Calcium 8.8 mg/dL (8.5-10.1); Chloride 98 mmol/L (98-107); Glucose 428 mg/dL (74-106); Lipase 250 U/L (73-393); Potassium 3.9 mmol/L (3.5-5.1); Sodium 139 mmol/L (136-145); Total Protein 7.8 g/dL (6.4-8.2)
[2019-08-31] MEDS: Normal Saline 1,000 ML 1000 ML IV (02:42)
--- NOTE | 2019-08-31 02:59 | DI.VRAD_ITS ---
PROCEDURE INFORMATION: Exam: CT Abdomen And Pelvis With Contrast Exam date and time: 08/31/2019 2:28 AM Age: 38 years old Clinical indication: Abdominal pain; Localized; Right; Patient HX: Pain x1 year TECHNIQUE: Imaging protocol: Computed tomography of the abdomen and pelvis with intravenous contrast. Radiation optimization: All CT scans at this facility use at least one of these dose optimization techniques: automated exposure control; mA and/or kV adjustment per patient size (includes targeted exams where dose is matched to clinical indication); or iterative reconstruction. Contrast material: [id number]; Contrast volume: 100 ml; Contrast route: IV LT FOREARM 20G; COMPARISON: CT ABD PELVIS WITH CONTRAST 10/22/2017 4:05 PM FINDINGS: Liver: Marked hepatomegaly with increase in size of liver since prior study.There is diffuse decrease in hepatic parenchymal density, consistent with mild fatty infiltration. Gallbladder and bile ducts: Normal. No calcified stones. No ductal dilation. Pancreas: Normal. No ductal dilation. Spleen: Normal. No splenomegaly. Adrenals: Normal. No mass. Kidneys and ureters: Normal. No hydronephrosis. Stomach and bowel: Unremarkable. No obstruction. No mucosal thickening. Appendix: No evidence of appendicitis. Intraperitoneal space: Unremarkable. No free air. No significant fluid collection. Vasculature: Unremarkable. No abdominal aortic aneurysm. Lymph nodes: Unremarkable. No enlarged lymph nodes. Bladder: Unremarkable as visualized. Reproductive: Unremarkable as visualized. Bones/joints: Unremarkable. No acute fracture. Soft tissues: What is favored to be left breast implant is incompletely imaged but appears intact. Again demonstrated are circumscribed densities in each buttock favored to be due to prior medication injections. IMPRESSION: 1. There is marked hepatomegaly with the liver increased in size from 2018. 2. Hepatic steatosis. Dictated and Authenticated by: Antoni Hurt MD. Ordering:ARGENIS Castro MD
[2019-08-31 03:03] VITALS: BP 117/65; PULSE 94; RESP 16; O2SAT 96
== END 2019-08-31 03:15 | disposition home or self-care (01) ==
PROVIDERS: Emergency Provider Emergency Medicine; PCP Nurse Practitioner Family
DX: E11.65 Type 2 diabetes mellitus with hyperglycemia (principal); Z79.4 Long term (current) use of insulin; R16.0 Hepatomegaly, not elsewhere classified; R74.0 Nonspecific elevation of levels of transaminase and lactic acid dehydrogenase [LDH]; F20.9 Schizophrenia, unspecified
CPT/HCPCS: 36415; 80053; 82805; 83690; 96360; 99285; 74177; 80164; 81003; 85025; 85610; 85730; 99284; J3490

== ENCOUNTER 2019-11-08 12:18 | Outpatient (CLI) | payer MEDICAID, SELFPAY ==
[2019-11-08 13:21] LABS: Hemoglobin A1C 11.4 % (3.8-5.6)
[2019-11-08 13:52] LABS: Anion Gap 14.4 mmol/L (3-11); BUN 12 mg/dL (7-18); CO2 23.6 mmol/L (21.0-32.0); CREATININE 0.63 mg/dL (0.55-1.02); Calcium 9.3 mg/dL (8.5-10.1); Chloride 96 mmol/L (98-107); Glucose 467 mg/dL (74-106); Potassium 4.3 mmol/L (3.5-5.1); Sodium 134 mmol/L (136-145)
[2019-11-09 08:50] LABS: DHEA Sulfate 186 ug/dL (75-410)
[2019-11-09 10:13] LABS: Sex Hormone Binding Globulin 8.9 nmol/L (See Note)
[2019-11-09 15:42] LABS: C-Peptide 7.7 ng/mL (1.1 - 4.4)
[2019-11-09 18:12] LABS: Fructosamine 341 mcmol/L (200 - 285)
[2019-11-12 16:43] LABS: 17-Hydroxyprogesterone 44 ng/dL
[2019-11-13 13:51] LABS: Testosterone, Free 0.63 ng/dL (0.06-1.00); Testosterone, Total 15 ng/dL (8-60)
== END 2019-11-08 12:38 ==
PROVIDERS: PCP Nurse Practitioner Family; Visit Provider Internal Medicine Endocrinology, Diabetes & Metabolism
DX: E11.65 Type 2 diabetes mellitus with hyperglycemia (principal); L68.0 Hirsutism
CPT/HCPCS: 36415; 80048; 82627; 84402; 84403; 82985; 83036; 83498; 84270; 84681

== ENCOUNTER 2019-12-01 00:48 | Outpatient (CLI) | payer MEDICAID, SELFPAY ==
[2019-12-01 10:39] LABS: Anion Gap 13.6 mmol/L (3-11); BUN 17 mg/dL (7-18); CO2 22.4 mmol/L (21.0-32.0); CREATININE 0.81 mg/dL (0.55-1.02); Calcium 9.4 mg/dL (8.5-10.1); Chloride 101 mmol/L (98-107); Glucose 406 mg/dL (74-106); Potassium 4.2 mmol/L (3.5-5.1); Sodium 137 mmol/L (136-145)
[2019-12-03 05:11] LABS: Hemoglobin A1C 11.3 % (3.8-5.6)
[2019-12-03 10:21] LABS: Sex Hormone Binding Globulin 11.4 nmol/L (See Note)
[2019-12-03 14:11] LABS: C-Peptide 6.5 ng/mL (1.1 - 4.4)
[2019-12-03 15:38] LABS: Fructosamine 361 mcmol/L (200 - 285)
[2019-12-04 11:23] LABS: Dehydroepiandrosterone (DHEA) 9.9 ng/mL (<10)
[2019-12-04 17:18] LABS: 17-Hydroxyprogesterone 85 ng/dL
[2019-12-06 15:10] LABS: Testosterone, Free 0.77 ng/dL (0.06-1.00); Testosterone, Total 24 ng/dL (8-60)
== END 2019-12-01 01:08 ==
PROVIDERS: Internal Medicine Endocrinology, Diabetes & Metabolism; PCP Nurse Practitioner Family; Visit Provider Nurse Practitioner Family
DX: E11.65 Type 2 diabetes mellitus with hyperglycemia (principal); L68.0 Hirsutism
CPT/HCPCS: 36415; 80048; 84402; 84403; 82626; 82985; 83036; 83498; 84270; 84681

== ENCOUNTER 2020-01-17 01:55 | Outpatient (CLI) | payer MEDICAID, SELFPAY ==
[2020-01-17 13:52] LABS: HCG Qual (Urine) Negative
[2020-01-17 15:30] LABS: TSH (W/Ref FT4) 8.92 uIU/mL (0.36-3.74)
[2020-01-17 15:55] LABS: FREE T4 1.36 ng/dL (0.76-1.46)
[2020-01-17 21:41] LABS: ALT 143 U/L (14-59); AST 264 U/L (15-37); Albumin 3.4 g/dL (3.4-5.0); Alkaline Phosphatase 305 U/L (46-116); Anion Gap 16.6 mmol/L (3-11); BUN 11 mg/dL (7-18); Bilirubin, Total 0.4 mg/dL (0.2-1.0); CO2 21.4 mmol/L (21.0-32.0); CREATININE 0.83 mg/dL (0.55-1.02); Calcium 9.3 mg/dL (8.5-10.1); Chloride 100 mmol/L (98-107); Cholesterol 259 mg/dL (<200); Glucose 277 mg/dL (74-106); HDL Cholesterol 23 mg/dL (40-60); Potassium 4.1 mmol/L (3.5-5.1); Sodium 138 mmol/L (136-145); Total Protein 7.5 g/dL (6.4-8.2); Triglyceride 446 mg/dL (<150)
[2020-01-17 22:05] LABS: LDL CHOLESTEROL 173 mg/dL (<100)
== END 2020-01-17 02:15 ==
PROVIDERS: Nurse Practitioner; PCP Nurse Practitioner Family; Visit Provider Nurse Practitioner Family
DX: F25.0 Schizoaffective disorder, bipolar type (principal); N91.2 Amenorrhea, unspecified; R63.5 Abnormal weight gain; E11.9 Type 2 diabetes mellitus without complications
CPT/HCPCS: 36415; 80053; 80061; 83721; 81025; 84439; 84443

== ENCOUNTER 2020-02-12 16:16 | Outpatient (REF) | payer MEDICAID, SELFPAY ==
[2020-02-13 16:50] LABS: Chlamydia Result Negative (Negative); GC Result Negative (Negative)
== END 2020-02-12 16:36 ==
LOC: LBN 16:16
PROVIDERS: PCP Nurse Practitioner Family; Visit Provider Obstetrics & Gynecology
DX: N76.0 Acute vaginitis (principal); Z11.3 Encounter for screening for infections with a predominantly sexual mode of transmission
CPT/HCPCS: 87491; 87591; 87480; 87510; 87660

== ENCOUNTER 2020-05-02 16:12 | Outpatient (REF) | payer MEDICAID, SELFPAY ==
[2020-05-05 13:45] LABS: Chlamydia Result Negative (Negative); GC Result Negative (Negative)
== END 2020-05-02 16:32 ==
LOC: LBN 16:12
PROVIDERS: PCP Nurse Practitioner Family; Visit Provider Obstetrics & Gynecology
DX: Z20.2 Contact with and (suspected) exposure to infections with a predominantly sexual mode of transmission (principal)
CPT/HCPCS: 87491; 87591

== ENCOUNTER 2020-05-29 13:18 | Outpatient (REF) | payer MEDICAID, SELFPAY ==
[2020-05-29 19:07] LABS: ALT 128 U/L (14-59); AST 121 U/L (15-37); Albumin 3.3 g/dL (3.4-5.0); Alkaline Phosphatase 277 U/L (46-116); Anion Gap 13.4 mmol/L (3-11); BUN 13 mg/dL (7-18); Bilirubin, Total 0.4 mg/dL (0.2-1.0); CO2 22.6 mmol/L (21.0-32.0); CREATININE 0.84 mg/dL (0.55-1.02); Calcium 9.2 mg/dL (8.5-10.1); Chloride 103 mmol/L (98-107); Glucose 368 mg/dL (74-106); Potassium 3.9 mmol/L (3.5-5.1); Sodium 139 mmol/L (136-145); TSH (W/Ref FT4) 3.48 uIU/mL (0.36-3.74); Total Protein 7.2 g/dL (6.4-8.2)
== END 2020-05-29 13:38 ==
LOC: NCHCN 13:18
PROVIDERS: PCP Nurse Practitioner Family; Visit Provider Nurse Practitioner
DX: E03.9 Hypothyroidism, unspecified (principal); K75.81 Nonalcoholic steatohepatitis (NASH)
CPT/HCPCS: 80053; 84443

== ENCOUNTER 2020-06-24 01:29 | Outpatient (CLI) | payer MEDICAID, SELFPAY ==
[2020-06-24 12:04] LABS: Bilirubin Negative (Negative); Blood Negative (Negative); Clarity Clear (Clear); Glucose 500 mg/dL (Negative); Ketones Trace mg/dL (Negative); Leukocyte Esterase Negative (Negative); Nitrite Negative (Negative); Specific Gravity 1.015 (1.005-1.025); Urobilinogen 0.2 EU/dL (Up TO 0.2); pH 6.5 (5-8)
[2020-06-24 14:36] LABS: Hemoglobin A1C 10.4 % (<5.7)
[2020-06-24 14:37] LABS: Anion Gap 12.3 mmol/L (3-11); BUN 12 mg/dL (7-18); CO2 23.7 mmol/L (21.0-32.0); CREATININE 0.68 mg/dL (0.55-1.02); Calcium 9.6 mg/dL (8.5-10.1); Chloride 99 mmol/L (98-107); FREE T4 1.19 ng/dL (0.76-1.46); Glucose 367 mg/dL (74-106); Potassium 4.1 mmol/L (3.5-5.1); Sodium 135 mmol/L (136-145); TSH 4.78 uIU/mL (0.36-3.74)
[2020-06-25 19:46] LABS: Fructosamine 367 mcmol/L (200 - 285)
== END 2020-06-24 01:49 ==
PROVIDERS: PCP Nurse Practitioner Family; Visit Provider Internal Medicine Endocrinology, Diabetes & Metabolism
DX: E11.65 Type 2 diabetes mellitus with hyperglycemia (principal); E03.9 Hypothyroidism, unspecified; Z68.37 Body mass index [BMI] 37.0-37.9, adult
CPT/HCPCS: 36415; 80048; 82533; 86341; 81003; 82530; 82985; 83036; 84439; 84443; 84681

== ENCOUNTER 2021-01-07 04:42 | Outpatient (CLI) | payer MEDICAID, SELFPAY ==
[2021-01-07 10:16] LABS: Abs Immature Grans 0.11 10^3/uL (0.0-0.06); Absolute Basophil Count 0.03 10^3/uL (0.0-0.2); Absolute Lymphocyte Count 2.44 10^3/uL (1.2-3.4); Absolute Monocyte Count 0.32 10^3/uL (0.1-0.8); Absolute Neutrophil Count 4.44 10^3/uL (1.2-6.7); Basophils % 0.4; Eosinophils % 1.3; HCT 41.8 % (36.0-46.0); HGB 14.3 g/dL (11.2-15.7); Immature Grans % 1.5; Lymphocytes % 32.8; MCH 34.1 pg (27.0-33.0); MCHC 34.2 % (32.0-36.0); MCV 99.8 fL (80-95); MPV 9.9 fL (8.0-11.0); Monocytes % 4.3; Neutrophils % 59.7; Nucleated RBC 0 %; Platelet Count 227 10^3/uL (130-400); RBC 4.19 10^6/uL (3.93-5.22); RDW 12.2 % (11.7-14.6); RDW-SD 44.9 fL; WBC 7.44 10^3/uL (4.4-10.8)
[2021-01-07 10:30] LABS: VALPROIC ACID 56.2 ug/mL (50-100)
[2021-01-07 11:54] LABS: ALT 137 U/L (14-59); AST 185 U/L (15-37); Albumin 3.3 g/dL (3.4-5.0); Alkaline Phosphatase 225 U/L (46-116); Anion Gap 10.9 mmol/L (3-11); BUN 10 mg/dL (7-18); Bilirubin, Total 0.3 mg/dL (0.2-1.0); C-Reactive Protein 1.48 mg/dL (0.0-0.3); CO2 28.1 mmol/L (21.0-32.0); CREATININE 0.7 mg/dL (0.55-1.02); Calcium 9.9 mg/dL (8.5-10.1); Chloride 102 mmol/L (98-107); FREE T4 1.02 ng/dL (0.76-1.46); Glucose 257 mg/dL (74-106); Magnesium 1.6 mg/dL (1.8-2.4); Potassium 3.4 mmol/L (3.5-5.1); Sodium 141 mmol/L (136-145); TSH 2.54 uIU/mL (0.36-3.74); Total Protein 7.4 g/dL (6.4-8.2)
[2021-01-07 12:01] LABS: HCG Quant, Pregnancy < 1 mIU/mL (1-3)
[2021-01-07 12:19] LABS: Hemoglobin A1C 10.6 % (<5.7)
[2021-01-07 12:45] LABS: Cholesterol 260 mg/dL (<200); HDL Cholesterol 28 mg/dL (40-60); Triglyceride 474 mg/dL (<150); Vitamin B12 870 pg/mL (193-986)
[2021-01-07 12:49] LABS: Folate > 20.0 ng/mL (8.6-20.0)
[2021-01-07 13:10] LABS: LDL CHOLESTEROL 163 mg/dL (<100)
[2021-01-07 17:50] LABS: FSH 4.9 mIU/mL (See Note); LH 10.9 mIU/mL (See Note); Prolactin 7.5 ng/mL (See Table)
[2021-01-08 14:51] LABS: Fructosamine 359 mcmol/L (200 - 285)
[2021-01-09 09:18] LABS: 25-Hydroxy D Total 46 ng/mL; 25-Hydroxy D2 <4.0 ng/mL; 25-Hydroxy D3 46 ng/mL
== END 2021-01-07 04:43 | disposition home or self-care (01) ==
LOC: LBO 04:42
PROVIDERS: Internal Medicine Endocrinology, Diabetes & Metabolism; PCP Nurse Practitioner Family; Visit Provider Psychiatry & Neurology Psychiatry
DX: E11.65 Type 2 diabetes mellitus with hyperglycemia (principal); N91.1 Secondary amenorrhea; Z68.37 Body mass index [BMI] 37.0-37.9, adult; E03.9 Hypothyroidism, unspecified; F25.0 Schizoaffective disorder, bipolar type; Z79.899 Other long term (current) drug therapy; Z13.228 Encounter for screening for other metabolic disorders
CPT/HCPCS: 36415; 80053; 80061; 82306; 82533; 83721; 80164; 82607; 82746; 82985; 83001; 83002; 83036; 83735; 84146; 84439; 84443; 84481; 84702; 85025; 86140

== ENCOUNTER 2021-07-12 13:29 | Emergency (ER) | payer MEDICAID, SELFPAY ==
[2021-07-12 13:35] VITALS: BP 139/80; PULSE 110; RESP 18; TEMP 37; O2SAT 97
--- NOTE | 2021-07-12 13:57 | W.ED.GENAD ---
Discharge Plan Disposition Patient Disposition: HOME Condition: Stable Discharge Details Clinical Impression: Abnormal vaginal bleeding, Non compliance w medication regimen, Blood glucose elevated Primary Care Provider: Clau Feliz ED Provider: Mickie Mary Home Meds and New Rx's Prescriptions: Continued nystatin 100,000 unit/gram powder 1 applic TP DAILY Qty: 60 RF: 3 nystatin 100,000 unit/gram cream 1 applic TP BID Qty: 30 RF: 3 gabapentin 300 mg capsule 300 mg PO QHS RF: 0 divalproex [Depakote] 125 mg tablet,delayed release (DR/EC) PO DAILY RF: 0 aripiprazole [Abilify] 30 MG tablet 30 mg PO DAILY Qty: 30 RF: 5 pregabalin 200 mg capsule 200 mg PO BID Qty: 60 RF: 5 levothyroxine 75 MCG tablet 75 mcg PO DAILY RF: 0 Levemir U-100 Insulin 100 unit/mL Solution 10 unit SUBCUT HS RF: 0 citalopram [Celexa] 20 mg tablet 20 mg PO DAILY RF: 0 topiramate [Topamax] 50 mg tablet 25 mg PO DAILY RF: 0 Aristada 882 mg/3.2 mL suspension,extended rel syring 882 mg IM DIRECTED RF: 0 olanzapine 10 mg tablet 15 mg PO QHS RF: 0 Discharge Instructions Instructions: Abnormal (Dysfunctional) Uterine Bleeding (ED), Diabetic Hyperglycemia (ED) Additional Instructions: Your exam today showed what appeared to be normal vaginal bleeding. However, as you have not had your menses in quite some time and has had this persistent bleeding for 2 weeks, I do feel that close follow-up with [facility]'s wellness would be appropriate. Please call tomorrow morning to schedule follow-up appointment. They will discuss further diagnostic work-up if needed. You are not anemic. No notable bleeding abnormalities. I am very concerned that your glucose was over 500. You do not appear to be in DKA. However, I am very concerned about what this will mean for you in the long-term and highly encouraged that you begin taking your medications as prescribed and checking your sugars as recommended. Please follow-up this week with your primary care. I would also like for you to get further education on this with the certified adaptive physical educator, please discuss this further with your primary care. If you develop any new or worsening symptoms please seek care urgently once again. Referrals: Clau Feliz [Primary Care Provider] - Discharge Data Discharge Date/Time-TO BE ENTERED AT DEPARTURE: 07/12/21 15:22 Medical Decision Making Patient is a pleasant 4-year-old female presenting with complaints of vaginal and rectal bleeding. She reports this began approximately 2 weeks ago. Regard to vaginal bleeding, states that initially she was wearing 3 menstrual pads on top of each other because the bleeding was so heavy. If this has decreased. Is currently on and wearing 1 does not have any change frequently. Is not using tampons or other feminine products. Denies any vaginal pain. No trauma. States that LMP was 3 years ago. States that she is for tubal ligation. Reports that she is not sexually active currently. Unknown if she has started menopause, she does not know how old her mother was when she began menopause. States she completed heme testing on her stool at home and this was negative. On exam, patient appears non toxic. She has normal conjunctiva. No unusual bruising or evidence of bleeding on initial exam. No petechial rash noted. Lungs clear, normal cardiac exam. ABdomen benign. Rectal exam normal, no bleeding, hemorrhoids. Her exam of her rectum has me quesitoning if the bleeding may be coming from her vagina. She has vaginal bleeding noted on exam. Bleeding minimal. No trauma, tissue or other abnormality. Normal appearing cervix. No pain with bimanual exam. Obtained baseline labs as she has had bleeding x 2 weeks that may have been occuring from more than one site. CBC without anemia. Normal coags. TSH normal. She has transaminitis which appears to be baseline. No enlarged liver on exam, no tenderness in RUQ. Glucose >500. Labs otherwise do not suggest DKA nor does patient clinically fit this picture. UPT negative. Discussed findings with the patient. In particular, we discussed her glucose at length. Chart review suggests poorly controlled DM. She states that sometimes she does not like to take her medications or forgets. She has not been taking her insulin or checking her glucose. Unclear how long this has been going on. 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 She will begin monitoring and taking her medications. I encourage close f/u with PCP, DM specialist. ADvised she should f/u with [facility] regarding vaginal bleeding. As she has not had menses in 3 years, concerned that she will likely need outpatient US which we discussed. She will f/u this week with [facility] and discuss further evaluation. I do not see evidence of emergent pathology at this time. Strict return precautions discussed. All of her questions and concerns were addressed, she is in agreement with this plan. HAve asked care management to ensure that appropriate f/u is established. HPI General Mode of arrival: ambulatory. Date/Time Provider Initiated Documentation: 07/12/21 13:29. Limitations to Documentation: no limitations. Information obtained by: patient and RN notes reviewed. History of Present Illness 40 year old F presents to the emergency department with the chief complaint of vaginal and rectal bleeding, described as moderate, Quality is described as other (no pain currently), and is localized to the genitals. Patient reports no radiation. Patient started experiencing this week(s) (2) and it has been constant. No relieving factors improve symptom(s), (states that bleeding is slowing down) No exacerbating factors reported . Patient notes denies chest pain, cough, fever/chills, nausea/vomiting, rash, shortness of breath, syncope and weakness. Patient did receive the following treatments prior to arrival, none Related Data Home Medications Medication Instructions Recorded Confirmed levothyroxine 75 mcg PO DAILY 03/15/16 07/12/21 aripiprazole [Abilify] 30 mg PO DAILY #30 tab-cap 11/29/17 07/12/21 gabapentin 300 mg capsule 300 mg PO QHS cap 10/25/18 07/12/21 Levemir U-100 Insulin 10 unit SUBCUT HS 08/04/19 07/12/21 divalproex 125 mg tablet,delayed PO DAILY tab 11/26/19 07/02/20 release nystatin 100,000 unit/gram topical 1 applic TP BID #30 gm 07/02/20 07/02/20 cream nystatin 100,000 unit/gram topical 1 applic TP DAILY #60 gm 07/02/20 07/02/20 powder pregabalin 200 mg capsule 200 mg PO BID #60 cap 01/22/21 07/12/21 Aristada 882 mg IM DIRECTED 07/12/21 07/12/21 citalopram [Celexa] 20 mg PO DAILY 07/12/21 07/12/21 olanzapine 15 mg PO QHS 07/12/21 07/12/21 topiramate [Topamax] 25 mg PO DAILY 07/12/21 07/12/21 Previous Rx's Medication Instructions Recorded aripiprazole [Abilify] 30 mg PO DAILY #30 tab-cap 11/29/17 nystatin 100,000 unit/gram topical 1 applic TP BID #30 gm 07/02/20 cream nystatin 100,000 unit/gram topical 1 applic TP DAILY #60 gm 07/02/20 powder pregabalin 200 mg capsule 200 mg PO BID #60 cap 01/22/21 Allergies Allergy/AdvReac Type Severity Reaction Status Date / Time codeine Allergy Mild Unverified 07/12/21 13:38 General 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 CECILIA: 3 Review of Systems Constitutional Constitutional: Reports as per HPI, Denies chills, Denies fatigue, Denies fever(s) and Denies headache(s) ENT Ears, Nose, Mouth, and Throat: Denies headache(s) Cardiovascular Cardiovascular: Reports as per HPI, Denies chest pain and Denies dyspnea Respiratory Respiratory: Reports as per HPI, Denies cough and Denies dyspnea Gastrointestinal Gastrointestinal: Reports as per HPI Genitourinary Genitourinary: Reports as per HPI Musculoskeletal Musculoskeletal: Reports as per HPI Integumentary/Breasts Skin/Breast: Reports as per HPI and Denies rash Neurologic Neurologic: Reports as per HPI and Denies headache(s) Endocrine Endocrine: Denies fatigue Hematologic/Lymphatic Hematologic/Lymphatic: Denies easy bruising and Denies lymphadenopathy [facility] Medical History (Updated 07/12/21 @ 14:59 by CECI Aleman) Anovulatory bleeding H/O suicide attempt History of hypothyroidism Possible exposure to STD RLS (restless legs syndrome) Schizoaffective disorder Schizophrenia Trigeminal neuralgia of left side of face (01/03/18) Type 2 diabetes mellitus Vaginitis Yeast dermatitis Surgical History H/O pilonidal cyst Ligation of fallopian tube S/p breast implant removal Sep 2019 S/P breast implant, left S/P foot surgery Family History Mother Diabetes Father Heart disease Social History Smoking/Tobacco Use Status: Former Tobacco Use Smoking risk assessment performed?: Yes Alcohol Intake: never Drug use: Never Substance use type: does not use Number of Children: 2 current occupation: Disabled Seatbelt use: always Do you feel safe at home: Yes Do you feel safe in your relationship?: Yes Female Reproductive History Menstrual control method: permanent sterilization History History 2 Para 2 Hx # Term Pregnancies Multiple births Hx # Pregnancies Ectopic pregnancies AB induced Hx Number of Living Children AB spontaneous Exam Const General: cooperative, healthy appearing, comfortable, no acute distress and well developed Nutritional Appearance: well nourished and overweight Orientation: alert and awake Resp Effort & Inspection: normal respiratory effort, able to speak in complete sentences and no respiratory distress Auscultation: clear to auscultation bilaterally, no rales, no rhonchi and no wheezes Cardio Rate: regular rate Rhythm: regular rhythm Heart Sounds: S1 normal and S2 normal GI Inspection: normal to inspection Palpation: soft, no hepatosplenomegaly, no masses and nontender Percussion: normal to percussion Auscultation: normal bowel sounds Rectal Exam - female: visual inspection normal, normal sphincter tone, No fissure, heme negative stool and No hemorrhoids External Female Exam: normal external appearance Speculum Exam - Vagina: normal appearance of the vagina, no foreign bodies, no lacerations, vaginal bleeding (small amount of vaginal bleeding noted), no swelling and nontender Speculum Exam - Cervix: normal appearance of the cervix and nontender Bimanual Exam- Vagina & Uterus: normal bimanual exam, normal palpation and No tender Bimanual Exam- Adnexa, other: normal adnexae and no masses OB/External & Speculum: no foreign bodies and vaginal bleeding (small amount of vaginal bleeding noted) Back/Spine/Pelvis Back: no CVA tenderness Skin General skin exam: no rashes or lesions noted Trauma: no lacerations or abrasions Neuro General: patient alert and patient awake Cognition: normal cognition Speech: speech normal Gait: normal gait Psych Appearance: grossly normal and well kempt Mental Status: mental status grossly normal Speech and Movement: speech and movement normal Course Vital Signs Vital signs: Vital Signs Temperature 37 C 07/12/21 13:35 Pulse 110 H 07/12/21 13:35 Respiratory Rate 18 07/12/21 13:35 Blood Pressure 139/80 07/12/21 13:35 Pulse Oximetry 97 07/12/21 13:35 Temperature 37 C 07/12/21 13:35 Temperature Source Temporal Artery Scan 07/12/21 13:35 Pulse 110 H 07/12/21 13:35 Respiratory Rate 18 07/12/21 13:35 Respiratory Effort Non-Labored 07/12/21 13:44 Blood Pressure 139/80 07/12/21 13:35 Blood Pressure Position Sitting 07/12/21 13:35 Pulse Oximetry 97 07/12/21 13:35 Oxygen Delivery Method Room Air 07/12/21 13:35 Oxygen Flow Rate 0 07/12/21 13:35 Pain Level 0 07/12/21 13:35
[2021-07-12 14:28] LABS: HCT 40.5 % (36.0-46.0); HGB 14.2 g/dL (11.2-15.7); MCH 33.8 pg (27.0-33.0); MCHC 35.1 % (32.0-36.0); MCV 96.4 fL (80-95); Platelet Count 283 10^3/uL (130-400); RDW 11.8 % (11.7-14.6); RDW-SD 41.9 fL; WBC 8.17 10^3/uL (4.4-10.8)
[2021-07-12 14:44] LABS: ALT 69 U/L (14-59); AST 48 U/L (15-37); Albumin 3.8 g/dL (3.4-5.0); Alkaline Phosphatase 379 U/L (46-116); BUN 10 mg/dL (7-18); Bilirubin, Total 0.3 mg/dL (0.2-1.0); CREATININE 0.9 mg/dL (0.55-1.02); Calcium 10.4 mg/dL (8.5-10.1); Chloride 94 mmol/L (98-107); Potassium 3.8 mmol/L (3.5-5.1); Sodium 133 mmol/L (136-145); Total Protein 8.5 g/dL (6.4-8.2)
[2021-07-12 14:49] LABS: Glucose 542 mg/dL (74-106); Prothrombin Time 10.1 sec (9.3-11.0)
[2021-07-12 14:52] LABS: TSH (W/Ref FT4) 3.49 uIU/mL (0.36-3.74)
--- NOTE | 2021-07-12 15:01 | NUR.NOTE ---
pt referral to [facility]ment [facility] for abnormal bleeding, non compliance med, and pcp
== END 2021-07-12 15:22 | disposition home or self-care (01) ==
PROVIDERS: Emergency Provider Physician Assistant; PCP Nurse Practitioner Family
DX: N93.9 Abnormal uterine and vaginal bleeding, unspecified (principal); T38.3X6A Underdosing of insulin and oral hypoglycemic [antidiabetic] drugs, initial encounter; E11.65 Type 2 diabetes mellitus with hyperglycemia; Z79.4 Long term (current) use of insulin; Z91.128 Patient's intentional underdosing of medication regimen for other reason
CPT/HCPCS: 36415; 80053; 81025; 85027; 99283; 84443; 85610; 85730; 99284

== ENCOUNTER 2021-09-17 12:10 | Inpatient (IN) | payer MEDICAID, SELFPAY ==
[2021-09-17] VITALS (83 sets, daily range): BP systolic 92–144; BP diastolic 52–80; PULSE 76–100; RESP 10–17; TEMP 36.3–36.8; O2SAT 91–96
--- NOTE | 2021-09-17 12:15 | RT.EKG_ITS ---
APPROVED REPORT Exam: Resting ECG Reason for Exam: syncope Patient Location: E HR:95 bpm ECG Measurements Heart Rate 95 AXIS MA 174 P 42 QRSd 84 QRS 18 QT 364 T 29 QTc 458 Conclusion Sinus rhythm...normal P axis, V-rate 60- 99 Physician: no stemi
[2021-09-17] MEDS: Normal Saline 1,000 ML 1000 ML IV (12:19)
[2021-09-17] MEDS: Omnipaque 350 MG/ML 100 ML BTL IJ (12:31)
--- NOTE | 2021-09-17 12:45 | DI.CT_ITS ---
Exam(s) CT BRAIN NECK CTA EXAM: CT BRAIN NECK CTA CLINICAL HISTORY: syncope vs stroke, curently altered. TECHNIQUE: Imaging Protocol: Axial CT angiography was performed with multi-slice acquisition and mu lti-planar and/or 3D reconstructions. CONTRAST MATERIAL: Intravenous: Omnipaque 350 Contrast volume:100 ml COMPARISON: CT CT HEAD WO from 05/24/[address] ABDOMEN PELVIS W from 08/31/2019 FINDINGS: CT Head W/O and W contrast: Ventricles and Extra axial spaces: Normal in size and morphology for the patient's age. Hemorrhage: None. Cerebral parenchyma: Normal. Midline shift: None. Brainstem/Cerebellum: Normal. Calvarium: Normal. Visualized Paranasal sinuses/Mastoids: Clear. Soft Tissues: Unremarkable. Enhancement: Normal. CTA Brain W: Internal Carotid Arteries: Petrous: Normal. Cavernous: Normal. Cerebral: Normal. Middle Cerebral Arteries: Right: No aneurysm, occlusion or significant stenosis. Left: No aneurysm, occlusion or significant stenosis. Anterior Cerebral Arteries: Right: No aneurysm, occlusion or significant stenosis. Left: No aneurysm, occlusion or significant stenosis. Posterior cerebral Arteries: Right: No aneurysm, occlusion or significant stenosis. Left: No aneurysm, occlusion or significant stenosis. Vertebral Arteries: Right: No aneurysm, occlusion or significant stenosis. Left: No aneurysm, occlusion or significant stenosis. Basilar Artery: No aneurysm, occlusion or significant stenosis. CTA Neck W: Common Carotid: Right: No aneurysm, occlusion or significant stenosis. Left: No aneurysm, occlusion or significant stenosis. External Carotid: Right: No aneurysm, occlusion or significant stenosis. Left: No aneurysm, occlusion or significant stenosis. Internal Carotid: Right: No aneurysm, occlusion or significant stenosis. Left: No aneurysm, occlusion or significant stenosis. Vertebral Artery: Right: No aneurysm, occlusion or significant stenosis. Left: No aneurysm, occlusion or significant stenosis. Lung Apices: Respiratory motion. No pneumothorax. Bones: Normal. Soft Tissues: Normal. IMPRESSION: 1. Normal CTA examination of the [place]. 2. Unremarkable CT Head. 3. Normal CTA examination of the neck. RADIATION DOSE DELIVERED: 2,394.8mGy.cm Total DLP DATA REPOSITORY: All CT scans at this facility are submitted to the National Radiology Data Registry (NRDR) Dose Index Registry (DIR) with the [employer] ([employer]). RADIATION OPTIMIZATION: All CT scans at this facility use at least one of these dose optimization te chniques: automated exposure control; mA and/or kV adjustment per patient size (includes targeted exa ms where dose is matched to clinical indication); or iterative reconstruction.
--- NOTE | 2021-09-17 12:55 | DI.CT_ITS ---
Exam(s) CT CHEST PE CTA EXAM: CT CHEST PE CTA CLINICAL HISTORY: syncope, altered, fall, tachy. TECHNIQUE: Imaging Protocol: Axial CT angiography was performed with multi-slice acquisition and mu lti-planar and/or 3D reconstructions. CONTRAST MATERIAL: Intravenous: Omnipaque 350 Contrast volume:structured data in ml COMPARISON: CR XR CHEST 2V PA LATERAL from 12/01/[address] CHEST PE CTA from 09/17/[address] BRAIN NECK CTA from 09/17/2021 FINDINGS: Exam is limited by respiratory motion. Pulmonary Arteries: No evidence of filling defect to suggest pulmonary emboli. Tracheobronchial tree: Patent where visualized. Mediastinum and [place]: No dominant adenopathy or fluid collection. Pulmonary parenchyma: Extremely limited limited evaluation due to expiratory changes and respiratory motion. No gross consolidation or dominant measurable mass. Pleura: No effusion or pneumothorax. Heart: The heart is not dilated. No coronary artery calcifications are seen. Aorta: Thoracic aorta non-dilated. No aneurysm. No dissection. Upper abdomen: Unremarkable. Bones: Unremarkable for age. IMPRESSION: No evidence of pulmonary embolism. Limited evaluation of the lungs due to expiratory changes and resp iratory motion. RADIATION DOSE DELIVERED: 530.79mGy.cm Total DLP DATA REPOSITORY: All CT scans at this facility are submitted to the National Radiology Data Registry (NRDR) Dose Index Registry (DIR) with the [employer] (ACR). RADIATION OPTIMIZATION: All CT scans at this facility use at least one of these dose optimization te chniques: automated exposure control; mA and/or kV adjustment per patient size (includes targeted exa ms where dose is matched to clinical indication); or iterative reconstruction.
[2021-09-17 13:12] LABS: Abs Immature Grans 0.04 10^3/uL (0.0-0.06); Absolute Basophil Count 0.02 10^3/uL (0.0-0.2); Absolute Lymphocyte Count 1.39 10^3/uL (1.2-3.4); Absolute Monocyte Count 0.54 10^3/uL (0.1-0.8); Absolute Neutrophil Count 6.73 10^3/uL (1.2-6.7); Basophils % 0.2; HCT 40.8 % (36.0-46.0); HGB 13.9 g/dL (11.2-15.7); Immature Grans % 0.5; Lymphocytes % 15.9; MCH 33.6 pg (27.0-33.0); MCHC 34.1 % (32.0-36.0); MCV 98.6 fL (80-95); MPV 9.9 fL (8.0-11.0); Monocytes % 6.2; Neutrophils % 77.2; Nucleated RBC 0 %; Platelet Count 210 10^3/uL (130-400); RBC 4.14 10^6/uL (3.93-5.22); RDW 11.9 % (11.7-14.6); RDW-SD 42.9 fL; WBC 8.72 10^3/uL (4.4-10.8)
[2021-09-17 13:13] LABS: BE (Venous) -3 mmol/L (-2-3); HCO3 (Venous) 23 mmol/L (23-28); O2 Sat (Venous) 75 %; TCO2 (Venous) 21 mmol/L (24-29); pCO2 (Venous) 46 mmHg (41-51); pH (Venous) 7.32 (7.31-7.41); pO2 (Venous) 41 mmHg
[2021-09-17 13:17] LABS: Lactate 1.7 mmol/L (0.6-1.4)
[2021-09-17 13:25] LABS: Ammonia 16 umol/L (11-32)
[2021-09-17 13:37] LABS: Acetaminophen < 2 ug/mL (10-30); Salicylate < 2.8 mg/dL (<2.8)
--- NOTE | 2021-09-17 13:39 | ED.GENADUL_ITS ---
Discharge Plan Disposition Patient Disposition: [facility] INPATIENT Condition: Improving Discharge Details Clinical Impression: Altered mental state, Toxic metabolic encephalopathy Admit Date/Time: 09/17/21 14:24 Admit Provider: Josefina Garay Attending Provider: Josefina Garay Primary Care Provider: Clau Feliz ED Provider: Ankur Huffman Discharge Data Discharge Date/Time-TO BE ENTERED AT DEPARTURE: 09/17/21 16:45 Medical Decision Making 41-year-old female with past medical history of schizophrenia affective disorder, type 2 diabetes, previous suicide attempts in the past, presents today for evaluation of altered mental status. Apparently she was at [facility] when she had a syncopal episode while she was with a caregiver. EMS was called, and upon their arrival patient's blood sugar was elevated at 400, but she was able to get up and ambulate to the stretcher. She denies taking any extra medications. She did have some slurred speech and was acting sleepy per EMS. Patient and EMS deny any trauma stating that she was lowered to the ground. Patient denies any IV or illicit drug use. No other complaints at this time. She denies headache, chest pain, neck pain, shortness of breath, numbness tingling or weakness. Physical exam demonstrate a sleepy female on exam, but no focal neurologic deficits. Mild slurred speech but family states that this can be baseline for her. I did contact the patient's mother and she states that the patient has been acting sleepy for the last year, and has slurred speech as well intermittently. Differential included toxic metabolic encephalopathy, overdose, acute intracranial etiology. Laboratory work-up relatively unremarkable aside from mild hyperglycemia. CT CTA of the head neck and chest was negative for acute process per radiology. Suspect potential overdose. Patient was retaining some urine on Allen catheter. Discussed the case with Dr. Garay she accepts for admission. When I did going to reassess the patient and inform her of admission the patient woke up to gentle sternal stipulation. She continues to move all extremities and shows no focal deficits to suggest a stroke. I have extensively reviewed the treatment plan with the patient. I have addressed all patient concerns at this time. I have also discussed the plan with the admitting physician and they agree with the current assessment and plan and have agreed to assume responsibility for the patient. All parties demonstrate verbal understanding and agreement with our assessment and plan at this time. The documentation in this chart was dictated using [employer] dictation software. Please excuse any dictation errors. CT Head W/O and W contrast: Ventricles and Extra axial spaces: Normal in size and morphology for the patient's age. Hemorrhage: None. Cerebral parenchyma: Normal. Midline shift: None. Brainstem/Cerebellum: Normal. Calvarium: Normal. Visualized Paranasal sinuses/Mastoids: Clear. Soft Tissues: Unremarkable. Enhancement: Normal. CTA Brain W: Internal Carotid Arteries: Petrous: Normal. Cavernous: Normal. Cerebral: Normal. Middle Cerebral Arteries: Right: No aneurysm, occlusion or significant stenosis. Left: No aneurysm, occlusion or significant stenosis. Anterior Cerebral Arteries: Right: No aneurysm, occlusion or significant stenosis. Left: No aneurysm, occlusion or significant stenosis. Posterior cerebral Arteries: Right: No aneurysm, occlusion or significant stenosis. Left: No aneurysm, occlusion or significant stenosis. Vertebral Arteries: Right: No aneurysm, occlusion or significant stenosis. Left: No aneurysm, occlusion or significant stenosis. Basilar Artery: No aneurysm, occlusion or significant stenosis. CTA Neck W: Common Carotid: Right: No aneurysm, occlusion or significant stenosis. Left: No aneurysm, occlusion or significant stenosis. External Carotid: Right: No aneurysm, occlusion or significant stenosis. Left: No aneurysm, occlusion or significant stenosis. Internal Carotid: Right: No aneurysm, occlusion or significant stenosis. Left: No aneurysm, occlusion or significant stenosis. Vertebral Artery: Right: No aneurysm, occlusion or significant stenosis. Left: No aneurysm, occlusion or significant stenosis. Lung Apices: Respiratory motion. No pneumothorax. Bones: Normal. Soft Tissues: Normal. IMPRESSION: 1. Normal CTA examination of the [place] of [place]. 2. Unremarkable CT Head. 3. Normal CTA examination of the neck. FINDINGS: Exam is limited by respiratory motion. Pulmonary Arteries: No evidence of filling defect to suggest pulmonary emboli. Tracheobronchial tree: Patent where visualized. Mediastinum and [place]: No dominant adenopathy or fluid collection. Pulmonary parenchyma: Extremely limited limited evaluation due to expiratory changes and respiratory motion. No gross consolidation or dominant measurable mass. Pleura: No effusion or pneumothorax. Heart: The heart is not dilated. No coronary artery calcifications are seen. Aorta: Thoracic aorta non-dilated. No aneurysm. No dissection. Upper abdomen: Unremarkable. Bones: Unremarkable for age. IMPRESSION: No evidence of pulmonary embolism. Limited evaluation of the lungs due to expiratory changes and respiratory motion. HPI General Date/Time Provider Initiated Documentation: 09/17/21 12:14 . HPI Narrative: 41-year-old female with past medical history of schizophrenia affective disorder, type 2 diabetes, previous suicide attempts in the past, presents today for evaluation of altered mental status. Apparently she was at [facility] when she had a syncopal episode while she was with a caregiver. EMS was called, and upon their arrival patient's blood sugar was elevated at 400, but she was able to get up and ambulate to the stretcher. She denies taking any extra medications. She did have some slurred speech and was acting sleepy per EMS. Patient and EMS deny any trauma stating that she was lowered to the ground. Patient denies any IV or illicit drug use. No other complaints at this time. She denies headache, chest pain, neck pain, shortness of breath, numbness tingling or weakness. Related Data Home Medications Medication Instructions Recorded Confirmed levothyroxine 75 mcg PO DAILY 03/15/16 09/17/21 aripiprazole [Abilify] 30 mg PO DAILY #30 tab-cap 11/29/17 09/17/21 gabapentin 300 mg capsule 300 mg PO QHS cap 10/25/18 09/17/21 nystatin 100,000 unit/gram topical 1 applic TP BID #30 gm 07/02/20 09/17/21 cream nystatin 100,000 unit/gram topical 1 applic TP DAILY #60 gm 07/02/20 09/17/21 powder Aristada 882 mg IM DIRECTED 07/12/21 09/17/21 citalopram [Celexa] 20 mg PO DAILY 07/12/21 09/17/21 topiramate [Topamax] 50 mg PO BID 07/12/21 09/17/21 pregabalin 200 mg capsule 200 mg PO BID #60 cap 09/08/21 09/17/21 benztropine 2 mg PO HS 09/17/21 09/17/21 divalproex 1,000 mg PO BID 09/17/21 09/17/21 divalproex 250 mg PO HS 09/17/21 09/17/21 docusate sodium 100 mg PO BID 09/17/21 09/17/21 exenatide microspheres [Bydureon 2 mg SUBCUT QWEEK 09/17/21 09/17/21 BCise] insulin detemir U-100 [Levemir 170 unit SUBCUT QHS 09/17/21 09/17/21 FlexTouch U-100 Insuln] insulin lispro [Humalog KwikPen 120 unit SUBCUT TID 09/17/21 09/17/21 Insulin] minoxidil 1 ml TOPICAL BID 09/17/21 09/17/21 olanzapine 15 mg PO DAILY 09/17/21 09/17/21 semaglutide [Rybelsus] 3 mg PO DAILY 09/17/21 09/17/21 triamcinolone acetonide 1 applic TOPICAL BID 09/17/21 09/17/21 Previous Rx's Medication Instructions Recorded aripiprazole [Abilify] 30 mg PO DAILY #30 tab-cap 11/29/17 nystatin 100,000 unit/gram topical 1 applic TP BID #30 gm 07/02/20 cream nystatin 100,000 unit/gram topical 1 applic TP DAILY #60 gm 07/02/20 powder pregabalin 200 mg capsule 200 mg PO BID #60 cap 09/08/21 Allergies Allergy/AdvReac Type Severity Reaction Status Date / Time codeine Allergy Mild Unverified 07/12/21 13:38 General Stated Complaint: CVA/TIA CECILIA: 2 Review of Systems All systems reviewed & are unremarkable except as noted in HPI and below PFSH All Active Problems (Updated 09/17/21 @ 20:34 by Ankur Huffman DO) Intentional overdose (Acute) Toxic metabolic encephalopathy (Acute) Discharge planning issues (Acute) DVT prophylaxis (Acute) Abnormal vaginal bleeding (Acute) Non compliance w medication regimen (Acute) Blood glucose elevated (Acute) Altered mental state (Acute) Possible exposure to STD (Acute) Vaginitis (Acute) Yeast dermatitis (Acute) Erythema (Acute) Deviated nasal septum (Chronic) Trigeminal neuralgia of left side of face (Acute 01/03/18) Drug overdose, intentional (Acute) Schizophrenia (Chronic) Suicidal ideation (Acute) Diabetes mellitus type 2 in obese (Acute) History of hypothyroidism (Chronic) Medical History (Updated 09/17/21 @ 20:34 by Ankur Huffman DO) Anovulatory bleeding H/O suicide attempt RLS (restless legs syndrome) Schizoaffective disorder Type 2 diabetes mellitus Surgical History H/O pilonidal cyst Ligation of fallopian tube S/p breast implant removal Sep 2019 S/P breast implant, left S/P foot surgery Family History Mother Diabetes Father Heart disease Social History Smoking/Tobacco Use Status: Former Tobacco Use Smoking risk assessment performed?: Yes Alcohol Intake: never Drug use: Never Substance use type: does not use Number of Children: 2 current occupation: Disabled Seatbelt use: always Do you feel safe at home: Yes Do you feel safe in your relationship?: Yes Female Reproductive History Menstrual control method: permanent sterilization History History 2 Para 2 Hx # Term Pregnancies Multiple births Hx # Pregnancies Ectopic pregnancies AB induced Hx Number of Living Children AB spontaneous Exam Narrative Exam Narrative: 1.Const: Well-nourished, Well-developed, appearing stated age 2.Eyes: PERRL, no conjunctival injection, and symmetrical lids. 3.ENT: Atraumatic external nose and ears. Moist MM. Neck: Symmetric, trachea midline, No thyromegaly. 4.CVS: +S1/S2, No murmurs or gallops. Peripheral pulses 2+ and equal in all extremities. Brisk capillary refill in all extremities. 5.RESP: Unlabored respiratory effort. Clear to auscultation bilaterally. No wheezes rales or rhonchi 6.GI: Soft, Nontender/Nondistended, No hepatosplenomegaly. No guarding or rebound. 7.MSK: Normocephalic/Atraumatic, Extremities w/o deformity or ttp No cyanosis or clubbing, patient is able to move her upper and lower extremities. She is somewhat uncooperative with exam. She 4 out of 5 strength in all extremities. She was able to ambulate to and from the stretcher with some assistance. 8.Skin: Warm, Dry. No rashes or lesions. 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 Sensation grossly intact, patient is able to speak but her speech is slightly slurred. No facial asymmetry. Patient is able to follow commands, moves all extremities, but does appear notably sleepy/fatigued. 10.Psych: (AAO) x3. She is aware of the place time and person. She does seem fatigued though on exam. She denies any homicidal or suicidal ideations. Course Vital Signs Vital signs: Vital Signs Temperature 36.3 C L 09/17/21 12:20 Pulse 100 H 09/17/21 12:20 Respiratory Rate 12 09/17/21 12:20 Blood Pressure 144/68 H 09/17/21 12:20 Pulse Oximetry 95 09/17/21 12:20 Temperature 36.3 C L 09/17/21 12:20 Temperature Source Skin 09/17/21 12:20 Pulse 96 H 09/17/21 13:01 Pulse 96 H 09/17/21 13:01 Respiratory Rate 13 09/17/21 13:01 Respiratory Effort 09/17/21 12:32 Respiratory Depth Normal 09/17/21 12:26 Respiratory Pattern Normal 09/17/21 12:26 Blood Pressure 135/80 09/17/21 13:01 Blood Pressure Mean 92 09/17/21 13:01 Pulse Oximetry 95 09/17/21 13:01 Oxygen Delivery Method Room Air 09/17/21 12:20 Oxygen Flow Rate 0 09/17/21 12:20 Lab/Test Results Lab/Test Results: Laboratory Tests Range/Units 09/17/21 09/17/21 09/17/21 12:15 13:07 13:07 WBC (4.4-10.8) 10^3/uL RBC (3.93-5.22) 10^6/uL Hgb (11.2-15.7) g/dL Hct (36.0-46.0) % MCV (80-95) fL MCH (27.0-33.0) pg MCHC (32.0-36.0) % RDW (11.7-14.6) % Plt Count (130-400) 10^3/uL MPV (8.0-11.0) fL Immature Gran % Neutrophils % Lymphocytes % Monocytes % Eosinophils % Basophils % Nucleated RBC % % Absolute Neutrophils (1.2-6.7) 10^3/uL Absolute Lymphocytes (1.2-3.4) 10^3/uL Absolute Monocytes (0.1-0.8) 10^3/uL Absolute Eosinophils (0.0-0.7) 10^3/uL Absolute Basophils (0.0-0.2) 10^3/uL VBG pH (7.31-7.41) 7.32 VBG pCO2 (41-51) mmHg 46 VBG pO2 mmHg 41 VBG HCO3 (23-28) mmol/L 23 VBG Total CO2 (24-29) mmol/L 21 L VBG O2 Saturation % 75 VBG Base Excess (-2-3) mmol/L -3 L VBG Lactate (0.6-1.4) mmol/L 1.7 H Ammonia (11-32) umol/L 16 Salicylates (<2.8) mg/dL Acetaminophen (10-30) ug/mL Range/Units 09/17/21 09/17/21 13:07 13:07 WBC (4.4-10.8) 10^3/uL 8.72 RBC (3.93-5.22) 10^6/uL 4.14 Hgb (11.2-15.7) g/dL 13.9 Hct (36.0-46.0) % 40.8 MCV (80-95) fL 98.6 H MCH (27.0-33.0) pg 33.6 H MCHC (32.0-36.0) % 34.1 RDW (11.7-14.6) % 11.9 Plt Count (130-400) 10^3/uL 210 MPV (8.0-11.0) fL 9.9 Immature Gran % 0.5 Neutrophils % 77.2 Lymphocytes % 15.9 Monocytes % 6.2 Eosinophils % 0.0 Basophils % 0.2 Nucleated RBC % % 0 Absolute Neutrophils (1.2-6.7) 10^3/uL 6.73 H Absolute Lymphocytes (1.2-3.4) 10^3/uL 1.39 Absolute Monocytes (0.1-0.8) 10^3/uL 0.54 Absolute Eosinophils (0.0-0.7) 10^3/uL 0.00 Absolute Basophils (0.0-0.2) 10^3/uL 0.02 VBG pH (7.31-7.41) VBG pCO2 (41-51) mmHg VBG pO2 mmHg VBG HCO3 (23-28) mmol/L VBG Total CO2 (24-29) mmol/L VBG O2 Saturation % VBG Base Excess (-2-3) mmol/L VBG Lactate (0.6-1.4) mmol/L Ammonia (11-32) umol/L Salicylates (<2.8) mg/dL < 2.8 Acetaminophen (10-30) ug/mL < 2
[2021-09-17 13:45] LABS: Bilirubin Negative (Negative); Blood Negative (Negative); Clarity Clear (Clear); Glucose 500 mg/dL (Negative); Ketones 15 mg/dL (Negative); Leukocyte Esterase Negative (Negative); Nitrite Negative (Negative); Urobilinogen 0.2 EU/dL (Up TO 0.2); pH 6.5 (5-8)
[2021-09-17 13:45] LABS: ALT 117 U/L (14-59); AST 92 U/L (15-37); Albumin 3.2 g/dL (3.4-5.0); Alkaline Phosphatase 160 U/L (46-116); Anion Gap 11.5 mmol/L (3-11); BUN 19 mg/dL (7-18); Bilirubin, Total 0.3 mg/dL (0.2-1.0); CO2 24.5 mmol/L (21.0-32.0); CREATININE 0.8 mg/dL (0.55-1.02); Calcium 8.9 mg/dL (8.5-10.1); Chloride 103 mmol/L (98-107); Glucose 446 mg/dL (74-106); Potassium 4.1 mmol/L (3.5-5.1); Sodium 139 mmol/L (136-145); TSH (W/Ref FT4) 0.69 uIU/mL (0.36-3.74); Total Protein 7.3 g/dL (6.4-8.2); Troponin I < 50 ng/L (<or=60)
[2021-09-17 13:57] LABS: ETHANOL BLOOD < 3.0 mg/dL (<10)
[2021-09-17 14:06] LABS: *AMPHETAMINES SCREEN URINE Negative (Negative); *BARBITURATES SCREEN URINE Negative (Negative); *BENZODIAZEPINES SCREEN URINE Negative (Negative); Cannabinoids THC Negative (Negative); Cocaine Screen,Urine Negative (Negative); METHADONE URINE SCREEN Negative (Negative); OPIATES URINE SCREEN Negative (Negative)
[2021-09-17 14:07] LABS: Tricyclic Antidepressants Negative (Negative)
--- NOTE | 2021-09-17 14:33 | W.PM.HP.N ---
Date of service: 09/17/21 Time of Service: 16:45 Assessment and Plan Assessment and plan (1) Intentional overdose: Status: Acute Assessment and plan: Suicide attempt. The patient appears to have taken 2-3 days worth of medications. Discussed with position control. See HPI for recommendations. Transfer to the ICU. CPSO. Mental health consult. Serial EKGs. IVF. prn zofran. Antiemetics. (2) Toxic metabolic encephalopathy: Status: Acute Assessment and plan: Due to above. Will hold medications for the night. Neuro checks. (3) Schizophrenia: Status: Chronic Assessment and plan: As above - holding medications tonight. Consult mental health Qualifiers: Schizophrenia type: unspecified Qualified Code(s): F20.9 - Schizophrenia, unspecified (4) Diabetes mellitus type 2 in obese: Status: Acute Assessment and plan: Cover with SSI and continue half doses of insulin. NPO. (5) DVT prophylaxis: Status: Acute Assessment and plan: SC enoxaparin (6) Discharge planning issues: Status: Acute Assessment and plan: Full code Transferred from med surg to ICU. Total Critical Care Time 45 minutes. History of Present Illness History of Present Illness Chief Complaint: Altered mental status Narrative: Ms Samano is a 41 year old female with PMHx of schizophrenia, IDDM2, , prior h/o suicidal attempt by intentional drug overdose, medication noncompliance with h/o hoarding her medications, who is an [facility] client with daily medication drop offs, who was brought to [facility] ED by ambulance after having an episode of unresponsiveness (?syncope) at [facility]. Per the ER provider, the patient was able to get up, but was noted to look very tired and had slurred speech. In the ED, she is somewhat slow to respond, but is A&Ox3. Per ED's conversation with the patient's mother, the patient has had slurred speech and has been sleepy for 1 year, but her mental status today is definitely worse. Per ED, there was no trauma to the head, her neurologic exam is nonfocal, and her CT/CTA head/neck was normal. Her labs demonstrated hyperglycemia without acidosis. UDS was negative, and the patient did not admit to taking medications inappropriately. The patient was found to have urinary retention and had a landis catheter placed. Observation on hospitalist service was requested. When I came to evaluate the patient, she was a little more alert than when she was in the ED (per mother who was at bedside). The patient stated I tried to kill myself. She nodded to when I asked if she had taken too much of her medications. The patient's mother was able to go back to the patient's home (she lives alone) and found that she took both doses of Tuesday and Tuesday medications, although of course it is unclear when. The patient cannot tell me when she took the medications. Per mother, her last medication delivery was yesterday. Poison control: Monitor for risk of serotonin toxicity: altered mental status, tremors, clonus, autonomic instability. Needs to be monitored until no longer symptomatic. Antipsychotics: AMS, QT prolongation risk. Tachycardia. Seizures. SSRI's AMS, n/v, dizziness, tachycardia. May have cardiac toxicity. Serial EKGs recommended: every 6 hrs. May have EPS. Benztropine: fever, dry mouse, dilated pupils, hypertension, n/v, tachycardia, agitated delirium, QRS widening. Rybelsus and bydureon: extension of effect/absorption Depakote: sedation, n, tachycardia, QTc prolongation, seizures, respiratory depression. GPN: TRAFFIC TECHNICIAN depression. Respiratory depression. Levothyroxine: anxiety, tremor, ST, hypertension, ?AMS. Pregabalin: TRAFFIC TECHNICIAN depression. Topamax: drawsiness, lethargy, seizures, dizziness, agitation, confusion, n/v, tremor, ataxia, hypotension, speech disturbances. Rarely, severe metabolic acidosis. Treatment: Symptmatic, supportive care, may require pressors. Agitation/seizures with benzos. QTc prolongation: monitor mag, K. Risk of hyperthermia: benzodiazepines/active cooling. Review of Systems All systems reviewed & are unremarkable except as noted in HPI and below PFSH All Active Problems (Updated 09/17/21 @ 18:22 by Josefina Garay MD) Intentional overdose (Acute) Toxic metabolic encephalopathy (Acute) Discharge planning issues (Acute) DVT prophylaxis (Acute) Abnormal vaginal bleeding (Acute) Non compliance w medication regimen (Acute) Blood glucose elevated (Acute) Altered mental state (Acute) Possible exposure to STD (Acute) Vaginitis (Acute) Yeast dermatitis (Acute) Erythema (Acute) Deviated nasal septum (Chronic) Trigeminal neuralgia of left side of face (Acute 01/03/18) Drug overdose, intentional (Acute) Schizophrenia (Chronic) Suicidal ideation (Acute) Diabetes mellitus type 2 in obese (Acute) History of hypothyroidism (Chronic) Medical History (Updated 09/17/21 @ 18:22 by Josefina Garay MD) Anovulatory bleeding H/O suicide attempt RLS (restless legs syndrome) Schizoaffective disorder Type 2 diabetes mellitus Surgical History H/O pilonidal cyst Ligation of fallopian tube S/p breast implant removal Sep 2019 S/P breast implant, left S/P foot surgery Family History Mother Diabetes Father Heart disease Social History Smoking/Tobacco Use Status: Former Tobacco Use Smoking risk assessment performed?: Yes Alcohol Intake: never Drug use: Never Substance use type: does not use Number of Children: 2 current occupation: Disabled Seatbelt use: always Do you feel safe at home: Yes Do you feel safe in your relationship?: Yes Female Reproductive History Menstrual control method: permanent sterilization History History 2 Para 2 Hx # Term Pregnancies Multiple births Hx # Pregnancies Ectopic pregnancies AB induced Hx Number of Living Children AB spontaneous Meds Allergies and Home Medications Allergies Allergy/AdvReac Type Severity Reaction Status Date / Time codeine Allergy Mild Unverified 07/12/21 13:38 Home Medications Medication Instructions Recorded Confirmed Type levothyroxine 75 mcg PO DAILY 03/15/16 09/17/21 History aripiprazole [Abilify] 30 mg PO DAILY #30 tab-cap 11/29/17 09/17/21 Rx gabapentin 300 mg capsule 300 mg PO QHS cap 10/25/18 09/17/21 History nystatin 100,000 unit/gram topical 1 applic TP BID #30 gm 07/02/20 09/17/21 Rx cream nystatin 100,000 unit/gram topical 1 applic TP DAILY #60 gm 07/02/20 09/17/21 Rx powder Aristada 882 mg IM DIRECTED 07/12/21 09/17/21 History citalopram [Celexa] 20 mg PO DAILY 07/12/21 09/17/21 History topiramate [Topamax] 50 mg PO BID 07/12/21 09/17/21 History pregabalin 200 mg capsule 200 mg PO BID #60 cap 09/08/21 09/17/21 Rx benztropine 2 mg PO HS 09/17/21 09/17/21 History divalproex 1,000 mg PO BID 09/17/21 09/17/21 History divalproex 250 mg PO HS 09/17/21 09/17/21 History docusate sodium 100 mg PO BID 09/17/21 09/17/21 History exenatide microspheres [Bydureon 2 mg SUBCUT QWEEK 09/17/21 09/17/21 History BCise] insulin detemir U-100 [Levemir 170 unit SUBCUT QHS 09/17/21 09/17/21 History FlexTouch U-100 Insuln] insulin lispro [Humalog KwikPen 120 unit SUBCUT TID 09/17/21 09/17/21 History Insulin] minoxidil 1 ml TOPICAL BID 09/17/21 09/17/21 History olanzapine 15 mg PO DAILY 09/17/21 09/17/21 History semaglutide [Rybelsus] 3 mg PO DAILY 09/17/21 09/17/21 History triamcinolone acetonide 1 applic TOPICAL BID 09/17/21 09/17/21 History Exam Narrative Exam Narrative: General: Obese female who is diaphoretic, lethargic, arousable, A&Ox2-3, follows commands, but promptly falls asleep during our interview Neurological: A&Ox2-3, slurred speech, no focal deficits Psychiatric: lethargic, admits to attempting to kill herself Skin: diaphoretic, intact HEENT: Atraumatic, normocephalic, EOMI, dry MM, clear oropharynx, no submandibular or cervical lymphadenopathy, no goiter or jVD Cardiovascular: RRR, mildly tachycardic, no m/r/g Lungs: CTAB Gastrointestinal: soft, nontender, nondistended Genitourinary: has a landis Extremities: no edema BLE's Results Imaging Additional studies: EKG: NSR, HR 94, no acute ischemia CT/CTA head/neck : 1. Normal CTA examination of the [place]. 2. Unremarkable CT Head. 3. Normal CTA examination of the neck. CT chest: No evidence of pulmonary embolism. Limited evaluation of the lungs due to expiratory changes and respiratory motion. Labs Result diagrams: 09/17/21 13:07 09/17/21 13:07 Labs: Laboratory Results - last 24 hr 09/17/21 09/17/21 09/17/21 12:15 13:07 13:07 WBC RBC Hgb Hct MCV MCH MCHC RDW Plt Count MPV Immature Gran % Neutrophils % Lymphocytes % Monocytes % Eosinophils % Basophils % Nucleated RBC % Absolute Neutrophils Absolute Lymphocytes Absolute Monocytes Absolute Eosinophils Absolute Basophils VBG pH 7.32 VBG pCO2 46 VBG pO2 41 VBG HCO3 23 VBG Total CO2 21 L VBG O2 Saturation 75 VBG Base Excess -3 L VBG Lactate Sodium 139 Potassium 4.1 Chloride 103 Carbon Dioxide 24.5 Anion Gap 11.5 H BUN 19 H Creatinine 0.8 Estimated GFR/1.73 m2 >= 60.00 Glucose 446 H Calcium 8.9 Total Bilirubin 0.3 AST 92 H ALT 117 H Alkaline Phosphatase 160 H Ammonia 16 Troponin I < 50 Total Protein 7.3 Albumin 3.2 L TSH 0.69 Urine Color Urine Clarity Urine pH Ur Specific [place] Urine Protein Urine Ketones Urine Blood Urine Nitrite Urine Bilirubin Urine Urobilinogen Ur Leukocyte Esterase Urine Glucose Salicylates Urine Opiates Screen Urine Methadone Screen Acetaminophen Ur Barbiturates Screen Ur Tricyclics Screen Ur Amphetamines Screen U Benzodiazepines Scrn Urine Cocaine Screen Ur THC Screen Ethyl Alcohol < 3.0 09/17/21 09/17/21 09/17/21 13:07 13:07 13:07 WBC 8.72 RBC 4.14 Hgb 13.9 Hct 40.8 MCV 98.6 H MCH 33.6 H MCHC 34.1 RDW 11.9 Plt Count 210 MPV 9.9 Immature Gran % 0.5 Neutrophils % 77.2 Lymphocytes % 15.9 Monocytes % 6.2 Eosinophils % 0.0 Basophils % 0.2 Nucleated RBC % 0 Absolute Neutrophils 6.73 H Absolute Lymphocytes 1.39 Absolute Monocytes 0.54 Absolute Eosinophils 0.00 Absolute Basophils 0.02 VBG pH VBG pCO2 VBG pO2 VBG HCO3 VBG Total CO2 VBG O2 Saturation VBG Base Excess VBG Lactate 1.7 H Sodium Potassium Chloride Carbon Dioxide Anion Gap BUN Creatinine Estimated GFR/1.73 m2 Glucose Calcium Total Bilirubin AST ALT Alkaline Phosphatase Ammonia Troponin I Total Protein Albumin TSH Urine Color Urine Clarity Urine pH Ur Specific [place] Urine Protein Urine Ketones Urine Blood Urine Nitrite Urine Bilirubin Urine Urobilinogen Ur Leukocyte Esterase Urine Glucose Salicylates < 2.8 Urine Opiates Screen Urine Methadone Screen Acetaminophen < 2 Ur Barbiturates Screen Ur Tricyclics Screen Ur Amphetamines Screen U Benzodiazepines Scrn Urine Cocaine Screen Ur THC Screen Ethyl Alcohol 09/17/21 09/17/21 13:33 13:33 WBC RBC Hgb Hct MCV MCH MCHC RDW Plt Count MPV Immature Gran % Neutrophils % Lymphocytes % Monocytes % Eosinophils % Basophils % Nucleated RBC % Absolute Neutrophils Absolute Lymphocytes Absolute Monocytes Absolute Eosinophils Absolute Basophils VBG pH VBG pCO2 VBG pO2 VBG HCO3 VBG Total CO2 VBG O2 Saturation VBG Base Excess VBG Lactate Sodium Potassium Chloride Carbon Dioxide Anion Gap BUN Creatinine Estimated GFR/1.73 m2 Glucose Calcium Total Bilirubin AST ALT Alkaline Phosphatase Ammonia Troponin I Total Protein Albumin TSH Urine Color Yellow Urine Clarity Clear Urine pH 6.5 Ur Specific [place] 1.010 Urine Protein Negative Urine Ketones 15 H Urine Blood Negative Urine Nitrite Negative Urine Bilirubin Negative Urine Urobilinogen 0.2 Ur Leukocyte Esterase Negative Urine Glucose 500 H Salicylates Urine Opiates Screen Negative Urine Methadone Screen Negative Acetaminophen Ur Barbiturates Screen Negative Ur Tricyclics Screen Negative Ur Amphetamines Screen Negative U Benzodiazepines Scrn Negative Urine Cocaine Screen Negative Ur THC Screen Negative Ethyl Alcohol Last Vital Signs Temp 36.3 C L 09/17/21 12:20 Pulse 89 09/17/21 14:15 Resp 10 L 09/17/21 14:20 BP 101/64 09/17/21 14:15 Pulse Ox 95 09/17/21 14:20
[2021-09-17 15:47] LABS: COVID-19 PCR Negative (Negative)
[2021-09-17 16:03] LABS: Source Nasal/Nares
[2021-09-17 16:40] LABS: Lab Add On Test DONE
[2021-09-17 16:55] LABS: Creatine Kinase 78 U/L (26-192)
[2021-09-17] MEDS: Insulin Aspart 300 UNITS/3 ML PEN SC ×2 (17:11→21:12)
--- NOTE | 2021-09-17 17:15 | RT.EKG_ITS ---
APPROVED REPORT Exam: Resting ECG Reason for Exam: overdose Patient Location: I HR:83 bpm ECG Measurements Heart Rate 83 AXIS MO 181 P 34 QRSd 82 QRS 16 QT 367 T -14 QTc 433 Conclusion Sinus rhythm...normal P axis, V-rate 60- 99 Borderline T abnormalities, diffuse leads...T flat/neg
--- NOTE | 2021-09-17 18:11 | PDOC.CMSAFE ---
- If Service Date Differs Date of service: 09/17/21 Time of Service: 18:11 Care Management Safety Plan Status: Interim Shaneka is a 41 year old woman with a history of schizophrenia, IDDM2, with a prior history of suicide attempt by intentional drug overdose. She was brought to the ED today by EMS after becoming unresponsive at [facility]. She presented with slurred speech and altered mental status, described as definitely worse than baseline by her mother. She later admitted that she tried to kill herself by taking by taking too much medication. Shaneka is an [facility] client who receives her medications from the agency. The patient will be admitted and will be assessed by screener when medically cleared. If screener deems patient meets criteria for psychiatric stabilization CM will facilitate interdepartmental huddle with [facility] screener for safety planning considerations and meet with patient to review [facility] policy and safety plan, establish individual wishes for treatment and maintain patient rights. In the interim; please note safety plan below to guide patient care while awaiting further assessment. SAFETY PLAN: 1. Will remain on suicide precautions and in paper clothes. 2. Will remain in room under direct supervision of one-on-one staff at all times provided by LUIS MANUEL, ROAD BUILDER director alumni relations. 3. May have paper cups, plates, finger foods as well as a cardboard spoon with which to eat meals. 4. Follow [facility] Management of the Admitted Behavioral Health Patient policy. 5. Comfort bath system only. 6. No personal belongings 7. Mother may visit. 8. Phone contact limited to mother at this time. 9. Due to VOLUNTARY status, if patient wishes to leave [facility], staff will contact [facility] Crisis Screener ([phone]) and On-Call Bottom Filler ([phone]) as soon as possible. In the event of elopement, notify [facility] Police ([phone]). If deemed appropriate for inpatient psychiatric care, safety plan will be established with patient, and care team, to adhere to patient goals, identify restrictions based on behavioral status, address nutrition, and determine allowed personal belongings, tools for hygiene and personal care. As well plan will determine level of activity including ambulation, level of supervision, visitors, and determine privileges based on level of acuity, behaviors and level of engagement by patient.
[2021-09-17] MEDS: Normal Saline Flush 10 ML SYR IVP (18:23)
[2021-09-17] MEDS: Normal Saline 1,000 ML 125 ML IV (18:23)
[2021-09-17] MEDS: Enoxaparin 40 MG/0.4 ML SYR SC (18:23)
[2021-09-17 18:52] LABS: VALPROIC ACID 114.9 ug/mL
--- NOTE | 2021-09-17 19:00 | RT.EKG_ITS ---
APPROVED REPORT Exam: Resting ECG Reason for Exam: overdose Patient Location: I HR:85 bpm ECG Measurements Heart Rate 85 AXIS WV 179 P 31 QRSd 86 QRS 12 QT 368 T -1 QTc 439 Conclusion Sinus rhythm...normal P axis, V-rate 60- 99
[2021-09-17 20:23] LABS: Lab Add On Test DONE
[2021-09-17 20:31] LABS: Magnesium 2.3 mg/dL (1.8-2.4)
[2021-09-18] VITALS (55 sets, daily range): BP systolic 98–131; BP diastolic 53–73; PULSE 78–105; RESP 10–22; TEMP 36.1–36.4; O2SAT 91–97
--- NOTE | 2021-09-18 | DI.CT_ITS ---
Exam(s) CT FACIAL WO EXAM: CT FACIAL WO CLINICAL HISTORY: facial trauma. TECHNIQUE: Imaging Protocol: Axial computed tomography images with coronal and sagittal reformatted images were created and reviewed. No IV contrast COMPARISON: CT CT BRAIN NECK CTA from 09/17/2021 FINDINGS: MAXILLOFACIAL CT SCAN: There is no evidence of facial fractures nor fluid the visualized paranasal sinuses. There is no kamlesh dence of orbital blowout fracture. Nasal bone appears intact. No evidence of mandible fractures. Paranasal sinuses are clear. No mucosal thickening nor fluid therein. Mastoid air cells are also cl ear. IMPRESSION: No evidence of facial bone fractures nor orbital fractures. RADIATION DOSE DELIVERED: 587.61mGy.cm Total DLP DATA REPOSITORY: All CT scans at this facility are submitted to the National Radiology Data Registry (NRDR) Dose Index Registry (DIR) with the [employer] (A[employer]). RADIATION OPTIMIZATION: All CT scans at this facility use at least one of these dose optimization te chniques: automated exposure control; mA and/or kV adjustment per patient size (includes targeted exa ms where dose is matched to clinical indication); or iterative reconstruction.
[2021-09-18 01:13] LABS: Ammonia 77 umol/L (11-32)
[2021-09-18 01:16] LABS: VALPROIC ACID 55.2 ug/mL
[2021-09-18] MEDS: Insulin Aspart 300 UNITS/3 ML PEN SC ×4 (02:00→17:21)
[2021-09-18] MEDS: Normal Saline 1,000 ML 125 ML IV (02:25)
[2021-09-18 06:58] LABS: Abs Immature Grans 0.03 10^3/uL (0.0-0.06); Absolute Basophil Count 0.01 10^3/uL (0.0-0.2); Absolute Eosinophil Count 0.06 10^3/uL (0.0-0.7); Absolute Monocyte Count 0.47 10^3/uL (0.1-0.8); Absolute Neutrophil Count 3.93 10^3/uL (1.2-6.7); Basophils % 0.1; Eosinophils % 0.8; HCT 37.9 % (36.0-46.0); HGB 12.8 g/dL (11.2-15.7); Immature Grans % 0.4; Lymphocytes % 39.2; MCH 33.2 pg (27.0-33.0); MCHC 33.8 % (32.0-36.0); MCV 98.4 fL (80-95); MPV 9.6 fL (8.0-11.0); Monocytes % 6.4; Neutrophils % 53.1; Nucleated RBC 0 %; Platelet Count 190 10^3/uL (130-400); RBC 3.85 10^6/uL (3.93-5.22); RDW 12.3 % (11.7-14.6); RDW-SD 44.3 fL
[2021-09-18 07:06] LABS: Ammonia 54 umol/L (11-32)
[2021-09-18 07:23] LABS: ALT 90 U/L (14-59); AST 79 U/L (15-37); Albumin 2.9 g/dL (3.4-5.0); Alkaline Phosphatase 128 U/L (46-116); Anion Gap 11.3 mmol/L (3-11); BUN 16 mg/dL (7-18); Bilirubin, Direct 0.1 mg/dL (0.0-0.2); Bilirubin, Total 0.4 mg/dL (0.2-1.0); CO2 23.7 mmol/L (21.0-32.0); CREATININE 0.5 mg/dL (0.55-1.02); Calcium 8.6 mg/dL (8.5-10.1); Chloride 108 mmol/L (98-107); Glucose 192 mg/dL (74-106); Magnesium 2.2 mg/dL (1.8-2.4); PHOSPHORUS 3.8 mg/dL (2.6-4.7); Sodium 143 mmol/L (136-145); TSH (W/Ref FT4) 1.15 uIU/mL (0.36-3.74); Total Protein 6.8 g/dL (6.4-8.2)
[2021-09-18 07:30] LABS: Potassium 2.9 mmol/L (3.5-5.1)
[2021-09-18 07:31] LABS: Hemoglobin A1C 11.8 % (<5.7)
--- NOTE | 2021-09-18 08:23 | W.PM.PROGNOT ---
Date of Service Date of service: 09/18/21 Time of Service: 12:41 Assessment and Plan Assessment and plan (1) Intentional overdose: Status: Acute Assessment and plan: Patient admits to suicide attempt and continues to verbalize suicidal ideation to nursing. Mental health is consulted. The patient appears to have taken 2-3 days worth of medications. Patient has been very stable in the ICU and mental status has normalized. Can likely medically clear her this afternoon if hyperammonemia has resolved. Hyperammonemia was secondary to depakote overdose. Given reports of facial trauma and nasal pain, obtain CT facial bones. Continue suicide precautions/CPSO. Mental health consult. Serial EKGs. IVF. prn Antiemetics. Monitor for urinary retention/constipation. Provide a bowel regimen. (2) Toxic metabolic encephalopathy: Status: Acute Assessment and plan: Due to above. Much improved. Holding psychiatric medications but hoping to get [facility] advice on when/what to resume and at what doses. Conitnue Neuro checks. (3) Schizophrenia: Status: Chronic Assessment and plan: As above Qualifiers: Schizophrenia type: unspecified Qualified Code(s): F20.9 - Schizophrenia, unspecified (4) Diabetes mellitus type 2 in obese: Status: Acute Assessment and plan: Resume home basal bolus insulin, but will split levemir into BID. (5) DVT prophylaxis: Status: Acute Assessment and plan: SC enoxaparin (6) Discharge planning issues: Status: Acute Assessment and plan: Full code Can likely be medically cleared later today. Total Critical Care Time 30 minutes. Subjective Subjective Interval history since last seen: Ms Samano states that she doesn't like talking about it when I ask her how she is feeling emotionally today. She states she would rather talk about it to mental health. She feels constipated and has had trouble urinating. States that her nose, forehead, and face hurt and that she actually hit the ryan register at [employer] yesterday before falling. Denies dizziness, nausea. She is not sure exactly when she took the extra doses of medications, but thinks it may have been the night before she presented here. States her insulin is being prescribed by endocrinology. She does not have a landis catheter and has been able to empty her bladder, but with difficulty. More awake this morning and requesting drinks. Passed a swallow eval with speech therapy, but reported oral/facial pain to them. BG 191 this am. Poison control: valproic acid - when it comes down, ammonia can actually go up. Per nursing: BEKA. QT ok. Afebrile. No seizures. No vomiting. No behaviors/agitation. Cooperative. Continues to report SI. Exam Narrative Exam Narrative: General: Obese female who is A&Ox3, eating lunch, looks much better than yesterday, speaking fluently, has good recall of her medication doses. HEENT: No obvious evidence of facial trauma - no bruising or deformity; nose is TTP. EOMI, MMM Cardiovascular: RRR, no m/r/g Lungs: CTAB Gastrointestinal: soft, nontender, nondistended Extremities: no edema BLE's Objective Last Vital Signs Temp 36.4 C L 09/18/21 03:05 Pulse 86 09/18/21 06:00 Resp 11 L 09/18/21 06:30 BP 115/65 09/18/21 06:00 Pulse Ox 94 09/18/21 06:30 Laboratory Results - last 24 hr 09/17/21 09/17/21 09/17/21 12:15 13:07 13:07 WBC RBC Hgb Hct MCV MCH MCHC RDW Plt Count MPV Immature Gran % Neutrophils % Lymphocytes % Monocytes % Eosinophils % Basophils % Nucleated RBC % Absolute Neutrophils Absolute Lymphocytes Absolute Monocytes Absolute Eosinophils Absolute Basophils VBG pH 7.32 VBG pCO2 46 VBG pO2 41 VBG HCO3 23 VBG Total CO2 21 L VBG O2 Saturation 75 VBG Base Excess -3 L VBG Lactate Sodium 139 Potassium 4.1 Chloride 103 Carbon Dioxide 24.5 Anion Gap 11.5 H BUN 19 H Creatinine 0.8 Estimated GFR/1.73 m2 >= 60.00 Glucose 446 H Hemoglobin A1c Calcium 8.9 Phosphorus Magnesium Total Bilirubin 0.3 Conjugated Bilirubin AST 92 H ALT 117 H Alkaline Phosphatase 160 H Ammonia 16 Creatine Kinase Troponin I < 50 Total Protein 7.3 Albumin 3.2 L TSH 0.69 Urine Color Urine Clarity Urine pH Ur Specific [place] Urine Protein Urine Ketones Urine Blood Urine Nitrite Urine Bilirubin Urine Urobilinogen Ur Leukocyte Esterase Urine Glucose Salicylates Urine Opiates Screen Urine Methadone Screen Acetaminophen Ur Barbiturates Screen Valproic Acid Ur Tricyclics Screen Ur Amphetamines Screen U Benzodiazepines Scrn Urine Cocaine Screen Ur THC Screen Ethyl Alcohol < 3.0 COVID-19 Source SARS-CoV-2 (PCR) Add-On Test Request 09/17/21 09/17/21 09/17/21 13:07 13:07 13:07 WBC 8.72 RBC 4.14 Hgb 13.9 Hct 40.8 MCV 98.6 H MCH 33.6 H MCHC 34.1 RDW 11.9 Plt Count 210 MPV 9.9 Immature Gran % 0.5 Neutrophils % 77.2 Lymphocytes % 15.9 Monocytes % 6.2 Eosinophils % 0.0 Basophils % 0.2 Nucleated RBC % 0 Absolute Neutrophils 6.73 H Absolute Lymphocytes 1.39 Absolute Monocytes 0.54 Absolute Eosinophils 0.00 Absolute Basophils 0.02 VBG pH VBG pCO2 VBG pO2 VBG HCO3 VBG Total CO2 VBG O2 Saturation VBG Base Excess VBG Lactate 1.7 H Sodium Potassium Chloride Carbon Dioxide Anion Gap BUN Creatinine Estimated GFR/1.73 m2 Glucose Hemoglobin A1c Calcium Phosphorus Magnesium Total Bilirubin Conjugated Bilirubin AST ALT Alkaline Phosphatase Ammonia Creatine Kinase Troponin I Total Protein Albumin TSH Urine Color Urine Clarity Urine pH Ur Specific [place] Urine Protein Urine Ketones Urine Blood Urine Nitrite Urine Bilirubin Urine Urobilinogen Ur Leukocyte Esterase Urine Glucose Salicylates < 2.8 Urine Opiates Screen Urine Methadone Screen Acetaminophen < 2 Ur Barbiturates Screen Valproic Acid Ur Tricyclics Screen Ur Amphetamines Screen U Benzodiazepines Scrn Urine Cocaine Screen Ur THC Screen Ethyl Alcohol COVID-19 Source SARS-CoV-2 (PCR) Add-On Test Request 09/17/21 09/17/21 09/17/21 13:07 13:07 13:07 WBC RBC Hgb Hct MCV MCH MCHC RDW Plt Count MPV Immature Gran % Neutrophils % Lymphocytes % Monocytes % Eosinophils % Basophils % Nucleated RBC % Absolute Neutrophils Absolute Lymphocytes Absolute Monocytes Absolute Eosinophils Absolute Basophils VBG pH VBG pCO2 VBG pO2 VBG HCO3 VBG Total CO2 VBG O2 Saturation VBG Base Excess VBG Lactate Sodium Potassium Chloride Carbon Dioxide Anion Gap BUN Creatinine Estimated GFR/1.73 m2 Glucose Hemoglobin A1c Calcium Phosphorus Magnesium Total Bilirubin Conjugated Bilirubin AST ALT Alkaline Phosphatase Ammonia Creatine Kinase 78 Troponin I Total Protein Albumin TSH Urine Color Urine Clarity Urine pH Ur Specific [place] Urine Protein Urine Ketones Urine Blood Urine Nitrite Urine Bilirubin Urine Urobilinogen Ur Leukocyte Esterase Urine Glucose Salicylates Urine Opiates Screen Urine Methadone Screen Acetaminophen Ur Barbiturates Screen Valproic Acid 114.9 Ur Tricyclics Screen Ur Amphetamines Screen U Benzodiazepines Scrn Urine Cocaine Screen Ur THC Screen Ethyl Alcohol COVID-19 Source SARS-CoV-2 (PCR) Add-On Test Request DONE 09/17/21 09/17/21 09/17/21 13:07 13:07 13:21 WBC RBC Hgb Hct MCV MCH MCHC RDW Plt Count MPV Immature Gran % Neutrophils % Lymphocytes % Monocytes % Eosinophils % Basophils % Nucleated RBC % Absolute Neutrophils Absolute Lymphocytes Absolute Monocytes Absolute Eosinophils Absolute Basophils VBG pH VBG pCO2 VBG pO2 VBG HCO3 VBG Total CO2 VBG O2 Saturation VBG Base Excess VBG Lactate Sodium Potassium Chloride Carbon Dioxide Anion Gap BUN Creatinine Estimated GFR/1.73 m2 Glucose Hemoglobin A1c Calcium Phosphorus Magnesium 2.3 Total Bilirubin Conjugated Bilirubin AST ALT Alkaline Phosphatase Ammonia Creatine Kinase Troponin I Total Protein Albumin TSH Urine Color Urine Clarity Urine pH Ur Specific [place] Urine Protein Urine Ketones Urine Blood Urine Nitrite Urine Bilirubin Urine Urobilinogen Ur Leukocyte Esterase Urine Glucose Salicylates Urine Opiates Screen Urine Methadone Screen Acetaminophen Ur Barbiturates Screen Valproic Acid Ur Tricyclics Screen Ur Amphetamines Screen U Benzodiazepines Scrn Urine Cocaine Screen Ur THC Screen Ethyl Alcohol COVID-19 Source Nasal/Nares SARS-CoV-2 (PCR) Negative Add-On Test Request DONE 09/17/21 09/17/21 09/18/21 13:33 13:33 00:57 WBC RBC Hgb Hct MCV MCH MCHC RDW Plt Count MPV Immature Gran % Neutrophils % Lymphocytes % Monocytes % Eosinophils % Basophils % Nucleated RBC % Absolute Neutrophils Absolute Lymphocytes Absolute Monocytes Absolute Eosinophils Absolute Basophils VBG pH VBG pCO2 VBG pO2 VBG HCO3 VBG Total CO2 VBG O2 Saturation VBG Base Excess VBG Lactate Sodium Potassium Chloride Carbon Dioxide Anion Gap BUN Creatinine Estimated GFR/1.73 m2 Glucose Hemoglobin A1c Calcium Phosphorus Magnesium Total Bilirubin Conjugated Bilirubin AST ALT Alkaline Phosphatase Ammonia Creatine Kinase Troponin I Total Protein Albumin TSH Urine Color Yellow Urine Clarity Clear Urine pH 6.5 Ur Specific [place] 1.010 Urine Protein Negative Urine Ketones 15 H Urine Blood Negative Urine Nitrite Negative Urine Bilirubin Negative Urine Urobilinogen 0.2 Ur Leukocyte Esterase Negative Urine Glucose 500 H Salicylates Urine Opiates Screen Negative Urine Methadone Screen Negative Acetaminophen Ur Barbiturates Screen Negative Valproic Acid 55.2 Ur Tricyclics Screen Negative Ur Amphetamines Screen Negative U Benzodiazepines Scrn Negative Urine Cocaine Screen Negative Ur THC Screen Negative Ethyl Alcohol COVID-19 Source SARS-CoV-2 (PCR) Add-On Test Request 09/18/21 09/18/21 09/18/21 00:57 06:43 06:43 WBC 7.40 RBC 3.85 L Hgb 12.8 Hct 37.9 MCV 98.4 H MCH 33.2 H MCHC 33.8 RDW 12.3 Plt Count 190 MPV 9.6 Immature Gran % 0.4 Neutrophils % 53.1 Lymphocytes % 39.2 Monocytes % 6.4 Eosinophils % 0.8 Basophils % 0.1 Nucleated RBC % 0 Absolute Neutrophils 3.93 Absolute Lymphocytes 2.90 Absolute Monocytes 0.47 Absolute Eosinophils 0.06 Absolute Basophils 0.01 VBG pH VBG pCO2 VBG pO2 VBG HCO3 VBG Total CO2 VBG O2 Saturation VBG Base Excess VBG Lactate Sodium 143 Potassium 2.9 L D Chloride 108 H Carbon Dioxide 23.7 Anion Gap 11.3 H BUN 16 Creatinine 0.5 L D Estimated GFR/1.73 m2 >= 60.00 Glucose 192 H D Hemoglobin A1c Calcium 8.6 Phosphorus 3.8 Magnesium 2.2 Total Bilirubin 0.4 Conjugated Bilirubin 0.1 AST 79 H ALT 90 H Alkaline Phosphatase 128 H Ammonia 77 H Creatine Kinase Troponin I Total Protein 6.8 Albumin 2.9 L TSH 1.15 Urine Color Urine Clarity Urine pH Ur Specific [place] Urine Protein Urine Ketones Urine Blood Urine Nitrite Urine Bilirubin Urine Urobilinogen Ur Leukocyte Esterase Urine Glucose Salicylates Urine Opiates Screen Urine Methadone Screen Acetaminophen Ur Barbiturates Screen Valproic Acid Ur Tricyclics Screen Ur Amphetamines Screen U Benzodiazepines Scrn Urine Cocaine Screen Ur THC Screen Ethyl Alcohol COVID-19 Source SARS-CoV-2 (PCR) Add-On Test Request 09/18/21 09/18/21 06:43 06:43 WBC RBC Hgb Hct MCV MCH MCHC RDW Plt Count MPV Immature Gran % Neutrophils % Lymphocytes % Monocytes % Eosinophils % Basophils % Nucleated RBC % Absolute Neutrophils Absolute Lymphocytes Absolute Monocytes Absolute Eosinophils Absolute Basophils VBG pH VBG pCO2 VBG pO2 VBG HCO3 VBG Total CO2 VBG O2 Saturation VBG Base Excess VBG Lactate Sodium Potassium Chloride Carbon Dioxide Anion Gap BUN Creatinine Estimated GFR/1.73 m2 Glucose Hemoglobin A1c 11.8 H Calcium Phosphorus Magnesium Total Bilirubin Conjugated Bilirubin AST ALT Alkaline Phosphatase Ammonia 54 H Creatine Kinase Troponin I Total Protein Albumin TSH Urine Color Urine Clarity Urine pH Ur Specific [place] Urine Protein Urine Ketones Urine Blood Urine Nitrite Urine Bilirubin Urine Urobilinogen Ur Leukocyte Esterase Urine Glucose Salicylates Urine Opiates Screen Urine Methadone Screen Acetaminophen Ur Barbiturates Screen Valproic Acid Ur Tricyclics Screen Ur Amphetamines Screen U Benzodiazepines Scrn Urine Cocaine Screen Ur THC Screen Ethyl Alcohol COVID-19 Source SARS-CoV-2 (PCR) Add-On Test Request
[2021-09-18] MEDS: Acetaminophen 325 MG TAB PO ×2 (08:51→20:01)
[2021-09-18] MEDS: POTASSIUM CHLORIDE/0.9% NACL 1,000 ML 125 MEQ IV ×2 (08:54→18:41)
--- NOTE | 2021-09-18 09:02 | INITIAL_ITS ---
- If Service Date Differs Date of service: 09/18/21 Time of Service: 09:02 Care Management Initial Assess REASON FOR HOSPITALIZATION:: Altered mental status, hyperglycemia PAST MEDICAL HISTORY/PAST SURGICAL HISTORY:: Anovulatory bleeding. H/O suicide attempt. RLS (restless legs syndrome). Schizoaffective disorder. Type 2 diabetes mellitus. H/O pilonidal cyst. Ligation of fallopian tube. S/p breast implant removal. Sep 2019. S/P breast implant, left. S/P foot surgery PREVIOUS FUNCTIONAL STATUS/SOCIAL/FAMILY SUPPORTS:: Shaneka resides alone at [facility] in [facility]. She is a [employer] client through [facility]. She has two children who she has contact with, but their father has primary custody. She is independent at baseline in the community with [employer] support. Her family resides locally and is also supportive. CURRENT FUNCTIONAL STATUS:: Shaneka remains in the ICU at this time. She will have a speech consult and will be evaluated by [facility] once medically cleared. ADVANCE DIRECTIVES:: None on file at [facility]. Has patient been provided with info about the portal/API?: Yes Did the patient sign up for the portal?: No CODE STATUS:: Full Code INSURANCE COVERAGE / FINANCIAL ISSUES:: Medicaid CURRENT HOME/COMMUNITY SERVICES/EQUIPMENT:: [employer] client at [facility] PRIMARY CARE PHYSICIAN:: Donna Feliz POTENTIAL DISCHARGE NEEDS:: [facility] Crisis evaluation, follow up appointments. PATIENT/FAMILY EDUCATION NEEDS:: Review discharge instructions, discuss Ask Me [employer]. ANTICIPATED BARRIERS TO DISCHARGE:: None identified at this time. TRANSPORTATION:: Dependent on disposition. PLAN:: Shaneka continues to be closely monitored she will have a speech consult today and once medically cleared will be evaluated by [facility] to determine need for psychiatric stabilization.
[2021-09-18] MEDS: POTASSIUM CHLORIDE 20 MEQ/100 ML BAG 50 MEQ IVPB ×2 (09:17→11:45)
--- NOTE | 2021-09-18 09:41 | PHA.REVIEW ---
Pharmacy Admission Review - Admission Clinical Review (Last Reviewed 07/12/21 @ 14:09 by CECI Aleman) Intentional overdose (Acute) Toxic metabolic encephalopathy (Acute) Discharge planning issues (Acute) DVT prophylaxis (Acute) Altered mental state (Acute) Diabetes mellitus type 2 in obese (Acute) codeine Allergy (Mild, Unverified 07/12/21 13:38) Resuscitation Status Full Code Height 5 ft 3 in Weight 86.4 kg - Renal Dosing Renal Dosing: BUN 16 mg/dL (7-18) 09/18/21 06:43 Creatinine 0.5 mg/dL (0.55-1.02) L D 09/18/21 06:43 Medications needing adjustments: Reviewed (SCr:0.5, eCrCl: 128.6mL/min (using adjusted body weight). All meds dosed appropriately.) - Anticoagulation Anticoagulation: Hgb 12.8 g/dL (11.2-15.7) 09/18/21 06:43 Hct 37.9 % (36.0-46.0) 09/18/21 06:43 Plt Count 190 10^3/uL (130-400) 09/18/21 06:43 Creatinine 0.5 mg/dL (0.55-1.02) L D 09/18/21 06:43 DVT Prophylaxis: Reviewed Medications: Enoxaparin (Enoxaparin 40mg SC Q24H) - Opiate Usage Evaluate Pain Scale/Pains Meds: N/A - Relevant Labs Sodium 143 mmol/L (136-145) 09/18/21 06:43 Potassium 2.9 mmol/L (3.5-5.1) L D 09/18/21 06:43 Chloride 108 mmol/L (98-107) H 09/18/21 06:43 Phosphorus 3.8 mg/dL (2.6-4.7) 09/18/21 06:43 Magnesium 2.2 mg/dL (1.8-2.4) 09/18/21 06:43 Electrolytes, C-Reactive P, ESR: Reviewed (IV K+ ordered) - DM Control DM Control: Glucose 192 mg/dL (74-106) H D 09/18/21 06:43 Hemoglobin A1c 11.8 % (<5.7) H 09/18/21 06:43 Finger Stick Blood Glucose 167 Finger Stick Blood Glucose 167 Finger Stick Blood Glucose 167 Finger Stick Blood Glucose 191 Finger Stick Blood Glucose 191 Insulin Dosing: Reviewed (Insulin detemir 80units HS (decreased from home dose while patient is NPO) and sliding scale aspart Q6H.) - Heart Failure/NC Heart Failure/NC: Troponin I < 50 ng/L (<or=60) 09/17/21 13:07 EF%, ROHIT's, B-Blockers, Diuretics: N/A - BP Control BP Control: Blood Pressure 115/65 Blood Pressure 112/63 Blood Pressure 104/58 Blood Pressure 104/57 Blood Pressure 102/53 Blood Pressure 100/56 Blood Pressure 98/55 Blood Pressure 92/52 Blood Pressure 97/53 If elevated: Reviewed (Blood pressure low to within normal limits this admission.) - Qtc Review If Elevated: N/A (QTc 458 on admission) - IV to PO Switch IV Medications: Reviewed (NPO) - Home Meds Home Med List reviewed: Reviewed Relevent Home Meds Not ordered & why?: All home medications currently held d/t intentional overdose.
--- NOTE | 2021-09-18 11:45 | SP_ITS ---
Date of service: 09/18/21 Time of Service: 11:45 Subjective Patient referred for Clinical Swallow Evaluation and Motor Speech Screen from Dr Garay given altered mental status and slurred speech. Patient was contacted at bedside in the ICU for swallow evaluation and motor speech screen. Patient denies any history of swallow difficulties, frequent coughing with meals or drinks, denies heartburn/GERD symptoms. She does endorse mild increased slurred speech over baseline. She does endorse having a very quiet voice at baseline. HPI/SUMMARY: Pt is a 41 year old female with schizophrenia, DM2, admitted to the ICU from the ED following a suicide attempt (intentional overdose) after appearing to have taken 2-3 days? worth of medications. She was brought to [facility] by ambulance when found unresponsive in [place]. Upon admit, found to have toxic metabolic encephalopathy with altered mental status, also being treated for DVT prophylaxis. Neuro findings on admit were non-focal, A&Ox3, with slurred speech. Per patient?s mother, fatigue and slurred speech are baseline findings, but symptoms were worse than baseline on admit. Per RN, patient now reporting she hit her top teeth/maxillary on a ryan register when she fainted at the grocery store before being admitted. All Active Problems (Updated 09/17/21 @ 18:22 by Josefina Garay MD) Intentional overdose (Acute) Toxic metabolic encephalopathy (Acute) Discharge planning issues (Acute) DVT prophylaxis (Acute) Abnormal vaginal bleeding (Acute) Non compliance w medication regimen (Acute) Blood glucose elevated (Acute) Altered mental state (Acute) Possible exposure to STD (Acute) Vaginitis (Acute) Yeast dermatitis (Acute) Erythema (Acute) Deviated nasal septum (Chronic) Trigeminal neuralgia of left side of face (Acute 01/03/18) Drug overdose, intentional (Acute) Schizophrenia (Chronic) Suicidal ideation (Acute) Diabetes mellitus type 2 in obese (Acute) History of hypothyroidism (Chronic) Medical History (Updated 09/17/21 @ 18:22 by Josefina Garay MD) Anovulatory bleeding H/O suicide attempt RLS (restless legs syndrome) Schizoaffective disorder Type 2 diabetes mellitus Surgical History H/O pilonidal cyst Ligation of fallopian tube S/p breast implant removal Sep 2019 S/P breast implant, left S/P foot surgery IMAGING performed 09/17/21 CT/CTA head/neck : ?1. Normal CTA examination of the [place]. 2. Unremarkable CT Head. 3. Normal CTA examination of the neck.? CT chest: ?No evidence of pulmonary embolism. Limited evaluation of the lungs due to expiratory changes and respiratory motion.? Social History/Home Situation: Pt is a [employer] client with daily medication drop offs. Hx of prior suicide attempts with medication noncompliance and medication hoarding. She has 2 children (father has custody) and her mother lives in the area and is supportive. Objective Objective Sp02: 96% RR: 14 / room air, no s/sx dyspnea Precautions: Standard, suicide Mental/cognitive status: A&O x3, some difficulty following instructions this date, but appears aware of errors & confusion. When asked to recite months of the year, patient successfully recites Sep-Aug, then restarts at Sep through February. Later stating: ?Wait a minute? that wasn?t right?? Language: WFL Conversational Speech: Mildly imprecise but 100% comprehensible in conversation and automatic speech tasks (counting, months of year) Speech AMR's: Initially precise, but waning in precision with repeating strings. Rate/rhythm WFL. Speech SMR's: Waning precision with increased repetitions. Poor coordination of syllables (e.g., [place]). Patient very aware of errors. Laryngeal function exam: Secretions: WFL Vocal quality: dry/clear MPT: 7 secs (reduced for sex/age) Pitch range: WFL Cough: (volitional) perceptually WFL Cranial nerve exam / Oral Motor: Dentition: Missing R upper molars, partial R lower molars. Noting tooth decay. Patient endorses dental/maxillary pain. Oral care: Noting dry mouth, thick secretions. Normal mucosa. Assisted patient to complete oral care prior to PO trials this date. Facial/labial/lingual strength, symmetry, ROM & coordination: WFL Volitional swallow: WFL Palatal elevation: Symmetrical elevation to phonation Food items tested: [ ] None. Further swallow assessment not warranted at this time. [ ] Ice: [X] IDDSI 0: Water via cup edge, straw, sequential [ ] IDDSI 1: [ ] IDDSI 2: [ ] IDDSI 3: [X] IDDSI 4: Pudding [ ] IDDSI 5: [ ] IDDSI 6: [ ] IDDSI 7: Patient declines gram cracker trials 2/2 dental/maxillary pain. [ ] Pill/tablet: Oral phase: [x] WFL (for limited trials presented) [ ] Leakage from mouth [ ] Difficulty with bolus manipulation [ ] Difficulty with a-p transport [ ] Difficulty chewing [ ] Pocketing [ ] Residue Pharyngeal phase: [x] WFL [ ] Delayed swallow initiation [ ] Reduced hyolaryngeal elevation/excursion [ ] Cough after swallow [ ] Voice change after swallow [ ] Throat clearing [ ] Endorsed stasis [facility] Swallow Protocol: PASS Assessment IMPRESSIONS: SPEECH: Patient demonstrates mild-moderate articulatory imprecision and incoordination for long strings of novel speech sounds. Speech imprecision/incoordination improves for conversational/automatic speech tasks. Remains 100% comprehensible. Noting mild hypernasal phonation and poor ability to increase volume or sustain continuous phonation when requested. Unclear how changed her symptoms are over baseline, but patient does endorse that her speech is a little more slurred than usual at this time. It may be useful to re-screen speech function throughout her stay to inform her recovery status/return to baseline. It is also possible some imprecision may also be due to maxillary pain. SWALLOW: Patient demonstrates likely WFL/safe swallow function this date, with low risk for aspiration related pulmonary complication. However, given dental/maxillary pain (?dental decay vs maxillary trauma prior to admit) and noting some imprecision/incoordination with speech and altered attention/mental status, patient would benefit from softer/easier to chew foods (soft/bite size) to reduce pain and risk of choking. Further N[employer] SUPERVISOR services are warranted at this time. Provided education to patient re: anatomy/physiology of swallowing mechanism, overt s/sx to monitor for re: potential aspiration of food liquids, recommendations for improved oral care, relationship between respiratory function changes and deglutition. Instrumentation: N/A Discharge: Per MH/Psychiatric recommendations Recommendations: Diet Modifications: IDDSI level (6) Soft & Bite size IDDSI level (0) Thin liquids Medications: Whole, 1 at a time, as tolerated. If patient demonstrates any difficulty, give medications with tsp pudding, applesauce. RISK MANAGEMENT: Oral hygiene BID/2x per day and before/after PO intake using friction with toothbrush on all oral structures as tolerated HOB upright as tolerated; upright for all PO intake. Encourage physical mobility as tolerated. Level of Assistance/Supervision: Distant supervision for all PO intake PO intake only when awake/alert Strategies/Adaptations/Assistive Equipment: Reduce auditory and/or visual distractions when eating Small sips and bites when eating Specialist referrals: N/A Ancillary tests: N/A Plan N[employer] YE[employer] SUPERVISOR to follow patient while on unit to monitor for changes/improvements in speech status. Hosiery Looper Goals: = Short Term Goals, for now. 1. Patient will participate in re-evaluation / re-screening of speech function PRN in order to help inform recovery status. Time spent: 30 minutes CPT Code: 45275 Clinical Swallow Evaluation Coding
--- NOTE | 2021-09-18 11:59 | NUR.NOTE ---
RN calls the kitchen to have small bite size diabetic tray sent to patient.Nursing Note:
[2021-09-18] MEDS: Senna TAB 1 TAB PO ×2 (12:18→20:01)
[2021-09-18] MEDS: Bisacodyl 10 MG SUPP PR (12:18)
[2021-09-18] MEDS: Docusate Sodium 100 MG CAP PO ×2 (12:18→20:01)
[2021-09-18 12:42] LABS: Ammonia 44 umol/L (11-32)
--- NOTE | 2021-09-18 13:39 | DM INPTCON_ITS ---
Date of service: 09/18/21 Time of Service: 13:40 Diabetes Inpatient Consult Reason for Visit: Diabetes consult DESCRIPTION/ASSESSMENT: Ms. Samano is admitted s/p intentional medication overdose. She is ordered for a carbohydrate consistent diet with soft and bite sized texture and thin liquids. Her A1C today is 11.8% suggesting poor glycemic control. Her A1C has been over 8 for 2.5 years. Blood sugars here are not at target but she has not been here long enough for us to assess her glycemic management. While here in the hospital she is ordered for 80 units Detemir q HS and Aspart correction at meal times and HS. Her weight is 86.4 kg and her BMI is 33.7 kg/m2 c/w class 1 (mild) obesity. Her weight has been fairly stable over the years and in fact is down about 20 pounds in the past 10 years. Of note, her home diabetes meds are listed as follows: 120 units lispro, tid exenatide, 2 mg/week Detemir 170 units q hs Semaglutide 3 mg/day The doses of these medications are obviously quite a bit higher than typically seen and still her A1C is not optimal. INTERVENTION: Will assess Ms. Carolina's need for diabetes education and her willingness to talk about it when she is able. Will remain available to snaker driving horses to discuss diabetes management. Will also want to confirm with Ms. Samano as to whether or not she takes all of her diabetes meds and in those doses. Perhaps her doses are being increased based on a presumption that she is taking them. PLAN: Will continue to monitor blood sugars and nutritional status. Will follow up with patient and snaker driving horses. Time Spent in Nutritional Counseling and Treatment: 0
--- NOTE | 2021-09-18 14:20 | NUR.NOTE ---
At 13:50, patient is placed in a wheelchair and taken to radiology for head CT. Patient tolerates procedure well and then returns to room to use commode. Patient stable on her feet.Nursing Note:
[2021-09-18 14:30] LABS: Anion Gap 7.6 mmol/L (3-11); BUN 13 mg/dL (7-18); CO2 23.4 mmol/L (21.0-32.0); CREATININE 0.7 mg/dL (0.55-1.02); Calcium 8.5 mg/dL (8.5-10.1); Chloride 105 mmol/L (98-107); Glucose 298 mg/dL (74-106); Potassium 3.9 mmol/L (3.5-5.1); Sodium 136 mmol/L (136-145)
--- NOTE | 2021-09-18 15:23 | NUR.NOTE ---
Telephonic update given to Poison Control.Nursing Note:
--- NOTE | 2021-09-18 16:00 | NUR.NOTE ---
Patient's mother visits.Nursing Note:
[2021-09-18] MEDS: Insulin Aspart 300 UNITS/3 ML PEN 60 UNITS SC (17:18)
--- NOTE | 2021-09-18 17:25 | NUR.NOTE ---
RN confirms with that she wants to have patient receive 66 units of Aspart. okays RN to given same saying patient takes more than same at home. Same is given.Nursing Note:
[2021-09-18] MEDS: Enoxaparin 40 MG/0.4 ML SYR SC (18:37)
[2021-09-18 18:40] LABS: Ammonia 33 umol/L (11-32)
[2021-09-19] VITALS (7 sets, daily range): BP systolic 113–129; BP diastolic 69–84; PULSE 62–94; RESP 14–18; TEMP 36.5–37; O2SAT 94–97
[2021-09-19] MEDS: POTASSIUM CHLORIDE/0.9% NACL 1,000 ML 125 MEQ IV ×3 (02:29→18:43)
[2021-09-19 08:35] LABS: Abs Immature Grans 0.06 10^3/uL (0.0-0.06); Absolute Basophil Count 0.02 10^3/uL (0.0-0.2); Absolute Eosinophil Count 0.11 10^3/uL (0.0-0.7); Absolute Lymphocyte Count 3.27 10^3/uL (1.2-3.4); Absolute Monocyte Count 0.39 10^3/uL (0.1-0.8); Absolute Neutrophil Count 2.68 10^3/uL (1.2-6.7); Basophils % 0.3; Eosinophils % 1.7; HCT 40.9 % (36.0-46.0); Immature Grans % 0.9; Lymphocytes % 50.1; MCHC 34.2 % (32.0-36.0); MCV 96.5 fL (80-95); MPV 9.6 fL (8.0-11.0); Nucleated RBC 0 %; Platelet Count 186 10^3/uL (130-400); RBC 4.24 10^6/uL (3.93-5.22); RDW-SD 42.4 fL; WBC 6.53 10^3/uL (4.4-10.8)
[2021-09-19] MEDS: Senna TAB 1 TAB PO ×2 (08:35→20:47)
[2021-09-19] MEDS: Docusate Sodium 100 MG CAP PO ×2 (08:35→20:47)
[2021-09-19 09:08] LABS: ALT 95 U/L (14-59); AST 91 U/L (15-37); Alkaline Phosphatase 128 U/L (46-116); Anion Gap 10.1 mmol/L (3-11); BUN 6 mg/dL (7-18); Bilirubin, Direct 0.1 mg/dL (0.0-0.2); Bilirubin, Total 0.4 mg/dL (0.2-1.0); CO2 22.9 mmol/L (21.0-32.0); CREATININE 0.4 mg/dL (0.55-1.02); Calcium 9.1 mg/dL (8.5-10.1); Chloride 107 mmol/L (98-107); Glucose 94 mg/dL (74-106); PHOSPHORUS 4.4 mg/dL (2.6-4.7); Potassium 3.6 mmol/L (3.5-5.1); Sodium 140 mmol/L (136-145)
[2021-09-19] MEDS: Insulin Aspart 300 UNITS/3 ML PEN SC ×3 (12:01→21:31)
--- NOTE | 2021-09-19 13:46 | PSYCO_ITS ---
Date of service: 09/19/21 Time of Service: 13:46 History of Present Illness History of Present Illness Chief Complaint: I took an overdose Narrative: 4 hour telepsychiatry consultation requested by Dr. Harper for evaluation of patient post-overdose with decision support around restarting psychotropic medications. Patient seen through telemedicine. Consent for telemedicine obtained. Ms. Samano is a 41 year woman who lives alone in [facility]. 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 White. She reported that two days prior, she had been at home and impulsively took an overose in an effort to end her life. She states this idea came up with little notice. She reported taking three weeks of medications including topiramate, aripirazole, olanzapine, and others she cannot recall. She indicated that she then went to sleep and woke the next say when a mental health business support administrator cam and brought her shopping. While at the store, she began to feel dizzy and lightheaded. She subsequently fell and lost consciousness. She may have struck her head in the process. She was trasnferred to [facility] and admiited to the medical service. CT of head was ne gative. EKG was normal. Of note, LFT's were elevated today with increase in ammonia as well. On exam today, she is alert and oriented. She denies auditory hallucinations. She endorses some paranoid feelings as well as some experience of thought insertion and external control. She denies active suicidal ideation and expresses some regret for her actions. She states her mood is normally pretty good. She endorses high levels of anxiety, but is unable to articulate to content or nature of her anxiety, only stating I have alot going on in my head- it's too big. She denies use of substances aside from a few cigarettes per week. She has minimal supports aside from her mother. She oftern feels lonely and isolated. She does not work and is on SSDI. Of note, review of record notes some inconsistencies in important aspects of her current presentation. One is the quantity of medication she injested. She reports taking three weeks of medication, whereas the record indicates this was only three days of medications. This is an important detail that helps stratify toxic risk and inform decisions about restarting medications. Assessment and Plan Assessment and plan (1) Intentional overdose: Status: Acute Assessment and plan: Given discrepancy in reported quantity of medication ingested, it is currently too early to determine the trajectory of her current safety from a metabolic standpoint. It is possible that elevated LFTs are the precursory to an upward trend. If her overdose was less severe (i.e. 3 days of medicine), toxic consequences are likely to have already stabilized. Objective measure of current plasma drug levels is not practical given the need for specialty lab analysis and extesnive delays in getting results. At this time, restarting psychotropic medications is contraindicated until ad dition information about quantity of drug taken and potential consequences for liver damage or other consequences. As such, I recommend daily LFTs to monitor for acute liver injury. Once cleared and safe for discharge home, psychotropic medications can nbe restarted in consultation with her outpatient team. Mental health has seen patient and determined she is safe to return home with outpatient follow up once medically cleared. Reference: Restarting antidepressant and antipsychotic medication after intentional overdoses: need for evidence-based guidance https://www.ncbi.nlm.nih.gov/pmc/articles/FVM4664199/ (2) Schizophrenia: Status: Chronic Assessment and plan: Hold psychotropic medications pending resolution of transamnitis For further questions or concerns about the care of this patient, please feel free to call. Qualifiers: Schizophrenia type: unspecified Qualified Code(s): F20.9 - Schizophrenia, unspecified Review of Systems All systems reviewed & are unremarkable except as noted in HPI and below PFSH All Active Problems (Updated 09/17/21 @ 20:34 by Ankur Huffman DO) Intentional overdose (Acute) Toxic metabolic encephalopathy (Acute) Discharge planning issues (Acute) DVT prophylaxis (Acute) Abnormal vaginal bleeding (Acute) Non compliance w medication regimen (Acute) Blood glucose elevated (Acute) Altered mental state (Acute) Possible exposure to STD (Acute) Vaginitis (Acute) Yeast dermatitis (Acute) Erythema (Acute) Deviated nasal septum (Chronic) Trigeminal neuralgia of left side of face (Acute 01/03/18) Drug overdose, intentional (Acute) Schizophrenia (Chronic) Suicidal ideation (Acute) Diabetes mellitus type 2 in obese (Acute) History of hypothyroidism (Chronic) Medical History (Updated 09/17/21 @ 20:34 by Ankur Huffman DO) Anovulatory bleeding H/O suicide attempt RLS (restless legs syndrome) Schizoaffective disorder Type 2 diabetes mellitus Surgical History H/O pilonidal cyst Ligation of fallopian tube S/p breast implant removal Sep 2019 S/P breast implant, left S/P foot surgery Family History Mother Diabetes Father Heart disease Social History Smoking/Tobacco Use Status: Former Tobacco Use Smoking risk assessment performed?: Yes Alcohol Intake: never Drug use: Never Substance use type: does not use Number of Children: 2 current occupation: Disabled Seatbelt use: always Do you feel safe at home: Yes Do you feel safe in your relationship?: Yes Female Reproductive History Menstrual control method: permanent sterilization History History 2 Para 2 Hx # Term Pregnancies Multiple births Hx # Pregnancies Ectopic pregnancies AB induced Hx Number of Living Children AB spontaneous Exam Narrative Exam Narrative: No acute disctress. Non-toxic appearing. Dressed in hospital garb. No deficits of hearing or vision noted. Speech is coherent and clear, normal volume, flat tone. Thought process is mostly coherent and ogical if somewhat concrete. Denies acute suicidal ideation. No psychosis noted. Intelligence is average. Mood is subdued. Affect is restricted. Attention and concentration are intact. Insight and judgment are fair. Results Last Vital Signs Temp 36.6 C 09/19/21 12:00 Pulse 94 H 09/19/21 12:00 Resp 14 09/19/21 12:00 BP 117/69 09/19/21 12:00 Pulse Ox 95 09/19/21 12:00 Labs Result diagrams: 09/19/21 08:10 09/19/21 08:10 Labs: Laboratory Results - last 24 hr 09/18/21 09/18/21 09/19/21 13:52 18:15 08:10 WBC RBC Hgb Hct MCV MCH MCHC RDW Plt Count MPV Immature Gran % Neutrophils % Lymphocytes % Monocytes % Eosinophils % Basophils % Nucleated RBC % Absolute Neutrophils Absolute Lymphocytes Absolute Monocytes Absolute Eosinophils Absolute Basophils Sodium 136 140 Potassium 3.9 D 3.6 Chloride 105 107 Carbon Dioxide 23.4 22.9 Anion Gap 7.6 10.1 BUN 13 6 L Creatinine 0.7 0.4 L D Estimated GFR/1.73 m2 >= 60.00 >= 60.00 Glucose 298 H D 94 D Calcium 8.5 9.1 Phosphorus 4.4 Magnesium 2.0 Total Bilirubin 0.4 Conjugated Bilirubin 0.1 AST 91 H ALT 95 H Alkaline Phosphatase 128 H Ammonia 33 H Total Protein 7.0 Albumin 3.0 L 09/19/21 08:10 WBC 6.53 RBC 4.24 Hgb 14.0 Hct 40.9 MCV 96.5 H MCH 33.0 MCHC 34.2 RDW 12.0 Plt Count 186 MPV 9.6 Immature Gran % 0.9 Neutrophils % 41.0 Lymphocytes % 50.1 Monocytes % 6.0 Eosinophils % 1.7 Basophils % 0.3 Nucleated RBC % 0 Absolute Neutrophils 2.68 Absolute Lymphocytes 3.27 Absolute Monocytes 0.39 Absolute Eosinophils 0.11 Absolute Basophils 0.02 Sodium Potassium Chloride Carbon Dioxide Anion Gap BUN Creatinine Estimated GFR/1.73 m2 Glucose Calcium Phosphorus Magnesium Total Bilirubin Conjugated Bilirubin AST ALT Alkaline Phosphatase Ammonia Total Protein Albumin
--- NOTE | 2021-09-19 13:51 | CMPROGNOTE_ITS ---
- If Service Date Differs Date of service: 09/19/21 Time of Service: 13:52 Care Management Progress Note CM coordinated Mental Health Crisis Screening: result-Sandi Wagnersatya reports Shaneka was able to safety plan and is cleared by mental health. She will have follow up calls with Sandi daily, and her TARP REPAIRER team was in support of attaching Shaneka with a new therapist and reviewing her medication drop schedule. Crisis numbers listed on the safety plan faxed to M/S by Sandi. Safety plan provided to . CM notified MD and requested CPSO order be dc'd, CM also notified RN Employment Office Clerk. CM coordinated Psych consult with Dr. Lake at MD request. -, result: requested Tele-Consult with Shaneka. CM coordinated tele-psych consult to support determination of re-starting psychotropic medications. reports Shaneka will remain at [facility] overnight will repeat labs in the [facility] to monitor liver function prior to discharge. CM continues to follow.
--- NOTE | 2021-09-19 13:56 | PGE_ITS ---
Date of Service Date of service: 09/19/21 Time of Service: 13:56 Assessment and Plan Assessment and plan (1) Intentional overdose: Status: Acute Assessment and plan: Patient admits to suicide attempt but no longer having suicidal thoughts. Medically clear. No rhythm abnormalities on telemetry. Mental health has evaluated and has cleared her for d/c to home [facility]. The patient appears to have taken 2-3 days worth of medications. She told Dr Lake with psychiatry that she took 3 weeks of pills. She receives pills weekly in blister packs and, unless she was stockpiling the pills, there was a total of 3 days taken by observation of the contents of the current weeks pack. D/C CPSO. prn Antiemetics. Monitor for urinary retention/constipation. Provide a bowel regimen. (2) Toxic metabolic encephalopathy: Status: Acute Assessment and plan: Due to above. Much improved. Holding psychiatric medications. Discussed when to re-initiate psych meds with Dr. Lake. This will depend on when she can see her usual provider that p rescribes her meds; whether they manage this issue or I do. If LFTs trend down tomorrow, may consider restarting at least some of her medications. (3) Schizophrenia: Status: Chronic Assessment and plan: As above Qualifiers: Schizophrenia type: unspecified Qualified Code(s): F20.9 - Schizophrenia, unspecified (4) Diabetes mellitus type 2 in obese: Status: Acute Assessment and plan: Resume home basal bolus insulin, but will split levemir into BID. Monitor and adjust as necessary. Diabetic diet. (5) DVT prophylaxis: Status: Acute Assessment and plan: SC enoxaparin (6) Discharge planning issues: Status: Acute Assessment and plan: Full code Medically cleared. Cleared by mental [facility] for d/c. Will not d/c at this time. Ongoing monitoring of liver function, signs/symptoms of withdrawal, anticholinergic effects of the overdose, arrhythmias, psychoses. Subjective Subjective Patient reports: no new complaints, feels better and afebrile; denies diarrhea, nausea and vomiting Interval history since last seen: Ate breakfast w/o complaints Denies suicidal thoughts currently. Exam Narrative Exam Narrative: General: Obese female who is A&Ox3. Interactive. HEENT: No obvious evidence of facial trauma - no bruising or deformity; nose is TTP. Mild tenderness of left forehead. EOMI, MMM Cardiovascular: RRR. S1S2 Lungs: CTAB Gastrointestinal: soft, nontender, nondistended Extremities: no edema BLE's Objective Last Vital Signs Temp 36.6 C 09/19/21 12:00 Pulse 94 H 09/19/21 12:00 Resp 14 09/19/21 12:00 BP 117/69 09/19/21 12:00 Pulse Ox 95 09/19/21 12:00 Laboratory Results - last 24 hr 09/18/21 09/18/21 09/19/21 13:52 18:15 08:10 WBC RBC Hgb Hct MCV MCH MCHC RDW Plt Count MPV Immature Gran % Neutrophils % Lymphocytes % Monocytes % Eosinophils % Basophils % Nucleated RBC % Absolute Neutrophils Absolute Lymphocytes Absolute Monocytes Absolute Eosinophils Absolute Basophils Sodium 136 140 Potassium 3.9 D 3.6 Chloride 105 107 Carbon Dioxide 23.4 22.9 Anion Gap 7.6 10.1 BUN 13 6 L Creatinine 0.7 0.4 L D Estimated GFR/1.73 m2 >= 60.00 >= 60.00 Glucose 298 H D 94 D Calcium 8.5 9.1 Phosphorus 4.4 Magnesium 2.0 Total Bilirubin 0.4 Conjugated Bilirubin 0.1 AST 91 H ALT 95 H Alkaline Phosphatase 128 H Ammonia 33 H Total Protein 7.0 Albumin 3.0 L 09/19/21 08:10 WBC 6.53 RBC 4.24 Hgb 14.0 Hct 40.9 MCV 96.5 H MCH 33.0 MCHC 34.2 RDW 12.0 Plt Count 186 MPV 9.6 Immature Gran % 0.9 Neutrophils % 41.0 Lymphocytes % 50.1 Monocytes % 6.0 Eosinophils % 1.7 Basophils % 0.3 Nucleated RBC % 0 Absolute Neutrophils 2.68 Absolute Lymphocytes 3.27 Absolute Monocytes 0.39 Absolute Eosinophils 0.11 Absolute Basophils 0.02 Sodium Potassium Chloride Carbon Dioxide Anion Gap BUN Creatinine Estimated GFR/1.73 m2 Glucose Calcium Phosphorus Magnesium Total Bilirubin Conjugated Bilirubin AST ALT Alkaline Phosphatase Ammonia Total Protein Albumin
[2021-09-19] MEDS: Enoxaparin 40 MG/0.4 ML SYR SC (17:21)
[2021-09-19] MEDS: Normal Saline Flush 10 ML SYR IVP (20:47)
[2021-09-20] VITALS (7 sets, daily range): BP systolic 112–136; BP diastolic 70–82; PULSE 64–91; RESP 16–20; TEMP 36.4–36.9; O2SAT 95–97
[2021-09-20] MEDS: POTASSIUM CHLORIDE/0.9% NACL 1,000 ML 125 MEQ IV (03:27)
[2021-09-20] MEDS: Senna TAB 1 TAB PO ×2 (08:10→20:55)
[2021-09-20] MEDS: Docusate Sodium 100 MG CAP PO ×2 (08:10→20:55)
[2021-09-20 08:12] LABS: ALT 122 U/L (14-59); AST 116 U/L (15-37); Albumin 3.2 g/dL (3.4-5.0); Alkaline Phosphatase 137 U/L (46-116); Anion Gap 10.3 mmol/L (3-11); BUN 7 mg/dL (7-18); Bilirubin, Total 0.4 mg/dL (0.2-1.0); CO2 24.7 mmol/L (21.0-32.0); CREATININE 0.6 mg/dL (0.55-1.02); Chloride 104 mmol/L (98-107); Glucose 102 mg/dL (74-106); Potassium 3.7 mmol/L (3.5-5.1); Sodium 139 mmol/L (136-145); Total Protein 7.4 g/dL (6.4-8.2)
[2021-09-20] MEDS: Divalproex 500 MG TABEC PO ×2 (11:16→20:54)
[2021-09-20] MEDS: ARIPiprazole 15 MG TAB 30 MG PO (11:16)
[2021-09-20] MEDS: Insulin Aspart 300 UNITS/3 ML PEN SC ×3 (12:04→22:45)
--- NOTE | 2021-09-20 15:17 | PGE_ITS ---
Date of Service Date of service: 09/20/21 Time of Service: 15:17 Assessment and Plan Assessment and plan (1) Intentional overdose: Status: Acute Assessment and plan: Patient admits to suicide attempt but no longer having suicidal thoughts. Medically clear. No rhythm abnormalities on telemetry. Mental health has evaluated and has cleared her for d/c to home with ongoing [facility]. The patient appears to have taken 2-3 days worth of medications. She told Dr Lake with psychiatry that she took 3 weeks of pills. She receives pills weekly in blister packs and, unless she was stockpiling the pills, there was a total of 3 days taken by observation of the contents of the current weeks pack. D/C CPSO. prn Antiemetics. Monitor for urinary retention/constipation. Provide a bowel regimen. Restart depakote at 500mg po BID (on 1000mg BID prior to admission). Will titrate to home dose if LFTs don't elevate and dictate otherwise. Restart Abilify 30mg daily. (2) Toxic metabolic encephalopathy: Status: Acute Assessment and plan: Due to above. Resolved. Holding psychiatric medications. Discussed when to re-initiate psych meds with Dr. Lake. This will depend on when she can see her usual provider that prescribes her meds; whether they manage this issue or I do. Se (3) Schizophrenia: Status: Chronic Assessment and plan: As above Qualifiers: Schizophrenia type: unspecified Qualified Code(s): F20.9 - Schizophrenia, unspecified (4) Diabetes mellitus type 2 in obese: Status: Acute Assessment and plan: Resume home basal bolus insulin, but will split levemir into BID. Monitor and adjust as necessary. Diabetic diet. (5) DVT prophylaxis: Status: Acute Assessment and plan: SC enoxaparin (6) Discharge planning issues: Status: Acute Assessment and plan: Full code Medically cleared. Cleared by mental [facility] for d/c. Will not d/c at this time. Ongoing monitoring of liver function, signs/symptoms of withdrawal, anticholinergic effects of the overdose, arrhythmias, psychoses. Subjective Subjective Patient reports: no new complaints, feels better and afebrile; denies diarrhea, nausea and vomiting Interval history since last seen: Eating OK Asks when she can initiate her home depakote and Abilify. Exam Narrative Exam Narrative: General: Obese female who is A&Ox3. Interactive. HEENT: No obvious evidence of facial trauma - no bruising or deformity; nose is TTP. Mild tenderness of left forehead. EOMI, MMM Cardiovascular: RRR. S1S2 Lungs: CTAB Gastrointestinal: soft, nontender, nondistended Extremities: no edema BLE's Objective Last Vital Signs Temp 36.6 C 09/20/21 07:35 Pulse 83 09/20/21 07:35 Resp 16 09/20/21 07:35 BP 112/72 09/20/21 07:35 Pulse Ox 97 09/20/21 07:35 Laboratory Results - last 24 hr 09/20/21 07:27 Sodium 139 Potassium 3.7 Chloride 104 Carbon Dioxide 24.7 Anion Gap 10.3 BUN 7 Creatinine 0.6 Estimated GFR/1.73 m2 >= 60.00 Glucose 102 Calcium 9.0 Total Bilirubin 0.4 AST 116 H ALT 122 H Alkaline Phosphatase 137 H Total Protein 7.4 Albumin 3.2 L
[2021-09-20] MEDS: Enoxaparin 40 MG/0.4 ML SYR SC (17:07)
--- NOTE | 2021-09-21 | DI.US_ITS ---
Exam(s) US ABDOMEN PELVIS EXAM: US ABDOMEN PELVIS CLINICAL HISTORY: R pelvic pain TECHNIQUE: Ultrasound abdomen performed using standard protocol. COMPARISON: CT CT ABDOMEN PELVIS W from 08/31/[address] CHEST PE CTA from 09/17/2021 FINDINGS: Abdomen ultrasound: LIVER: Enlarged to 23 cm in length. Slight fatty infiltration. No focal liver lesions are seen.. GALLBLADDER: No evidence of cholelithiasis. No evidence of wall thickening. No pericholecystic fluid identified. ZELAYA'S SIGN: Negative. BILIARY SYSTEM: No intrahepatic or extrahepatic biliary ductal dilation. KIDNEYS: Kidneys are symmetric in size. No evidence of renal calculi. No evidence of hydronephrosis. No renal mass or cyst identified. PANCREAS: Normal where visualized. SPLEEN: Not enlarged. ABDOMINAL AORTA AND IVC: Visualized portions normal caliber. ASCITES: None seen. Pelvic ultrasound: Transabdominal imaging was performed. Exam is limited by patient body habitus. The uterus measures 10 by 3.9 x 5.8 cm. The endometrium is not visible. Ovaries are normal in size. No gross cyst or mass. No evidence of torsion. IMPRESSION: Hepatomegaly and mild fatty infiltration. Unremarkable transabdominal pelvic ultrasound. Limited visualization is to patient body habitus. DATA REPOSITORY:
[2021-09-21 04:15] VITALS: BP 121/83; PULSE 89; RESP 18; TEMP 36.7; O2SAT 95
[2021-09-21 07:20] VITALS: BP 163/86; PULSE 107; RESP 18; TEMP 37; O2SAT 96
[2021-09-21 07:47] LABS: ALT 199 U/L (14-59); AST 206 U/L (15-37); Albumin 3.8 g/dL (3.4-5.0); Alkaline Phosphatase 150 U/L (46-116); Anion Gap 13.5 mmol/L (3-11); BUN 8 mg/dL (7-18); Bilirubin, Total 0.5 mg/dL (0.2-1.0); CO2 23.5 mmol/L (21.0-32.0); CREATININE 0.6 mg/dL (0.55-1.02); Calcium 9.8 mg/dL (8.5-10.1); Chloride 103 mmol/L (98-107); Glucose 152 mg/dL (74-106); Potassium 3.6 mmol/L (3.5-5.1); Sodium 140 mmol/L (136-145); Total Protein 8.6 g/dL (6.4-8.2)
[2021-09-21] MEDS: Docusate Sodium 100 MG CAP PO ×2 (08:22→21:33)
[2021-09-21] MEDS: ARIPiprazole 15 MG TAB 30 MG PO (08:22)
[2021-09-21] MEDS: Divalproex 500 MG TABEC PO (08:23)
[2021-09-21] MEDS: Insulin Aspart 300 UNITS/3 ML PEN SC ×4 (08:23→21:34)
[2021-09-21] MEDS: Senna TAB 1 TAB PO ×2 (08:23→21:33)
--- NOTE | 2021-09-21 09:25 | CMPROGNOTE_ITS ---
- If Service Date Differs Date of service: 09/21/21 Time of Service: 09:25 Care Management Progress Note S/O: Shaneka continues to be monitored and treated, reports re-starting some of her psych meds, and continues to closely monitor her LFTs. CM continues to follow. A: 41 year old female admitted to [facility] 09/17/21 for AMS, hyperglycemia P: Shaneka will return home when ready per MD. She will follow up with her KETTLE GIRL team at [facility] and transport via private vehicle either with her mother or via RCT. [facility]-Shaneka was able to safety plan and is cleared by mental health. She will have daily follow up calls and her KETTLE GIRL team was in support of attaching Shaneka with a new therapist and reviewing her medication drop schedule-per Sandi Mitchell-[facility] ES. Crisis numbers listed on the safety plan faxed to M/S by Sandi. Safety plan provided to .
--- NOTE | 2021-09-21 09:25 | PDOC.CMPRO ---
- If Service Date Differs Date of service: 09/21/21 Time of Service: 09:25 Care Management Progress Note S/O: Shaneka continues to be monitored and treated, reports re-starting some of her psych meds, and continues to closely monitor her LFTs. CM continues to follow. A: 41 year old female admitted to [facility] 09/17/21 for AMS, hyperglycemia P: Shaneka will return home when ready per MD. She will follow up with her BRANCH LEAD team at [facility] and transport via private vehicle either with her mother or via RCT. [facility]-Shaneka was able to safety plan and is cleared by mental health. She will have daily follow up calls and her BRANCH LEAD team was in support of attaching Shaneka with a new therapist and reviewing her medication drop schedule-per Sandi Mitchell-[facility] ES. Crisis numbers listed on the safety plan faxed to M/S by Sandi. Safety plan provided to .
[2021-09-21 11:50] VITALS: BP 122/82; PULSE 114; RESP 12; TEMP 36.8; O2SAT 96
[2021-09-21] MEDS: OLANZapine 5 MG TAB 15 MG PO (14:19)
[2021-09-21 15:30] VITALS: BP 116/56; PULSE 116; RESP 18; TEMP 36.8; O2SAT 95
--- NOTE | 2021-09-21 15:58 | PGE_ITS ---
Date of Service Date of service: 09/21/21 Time of Service: 15:58 Assessment and Plan Assessment and plan (1) Intentional overdose: Status: Acute Assessment and plan: Patient admits to suicide attempt but no longer having suicidal thoughts. Medically clear. No rhythm abnormalities on telemetry. Mental health has evaluated and has cleared her for d/c to home with ongoing [facility] resource support. The patient appears to have taken 2-3 days worth of medications. She told Dr Lake with psychiatry that she took 3 weeks of pills. She receives pills weekly in blister packs and, unless she was stockpiling the pills, there was a total of 3 days taken by observation of the contents of the current weeks pack. D/C CPSO. prn Antiemetics. Monitor for urinary retention/constipation. Provide a bowel regimen. Restarted depakote at 500mg po BID (on 1000mg BID prior to admission) on 09/20 and then increased to 1000mg BID on 09/21. Restarted Abilify 30mg daily on 09/20. Restarted Zyprexa on 09/21. RLQ pain evaluated with abd/pelvic US: Hepatomegaly and mild fatty infiltration. Unremarkable transabdominal pelvic ultrasound. Limited visualization is to patient body habitus. Monitor LFTs closely. (2) Toxic metabolic encephalopathy: Status: Acute Assessment and plan: Due to above. Resolved. Holding psychiatric medications. Discussed when to re-initiate psych meds with Dr. Lake. This will depend on when she can see her usual provider that prescribes her meds; whether they manage this issue or I do. Se (3) Schizophrenia: Status: Chronic Assessment and plan: As above Qualifiers: Schizophrenia type: unspecified Qualified Code(s): F20.9 - Schizophrenia, unspecified (4) Diabetes mellitus type 2 in obese: Status: Acute Assessment and plan: Resume home basal bolus insulin, but will split levemir into BID. Monitor and adjust as necessary. Diabetic diet. (5) DVT prophylaxis: Status: Acute Assessment and plan: SC enoxaparin (6) Discharge planning issues: Status: Acute Assessment and plan: Full code Medically cleared. Cleared by mental [facility] for d/c. Will not d/c at this time. Ongoing monito ring of liver function, signs/symptoms of withdrawal, anticholinergic effects of the overdose, arrhythmias, psychoses. Subjective Subjective Patient reports: tolerating a regular diet and afebrile; denies diarrhea, nausea, vomiting and shortness of breath Interval history since last seen: C/O RLQ discomfort. Continuous but waxes and wanes in intensity. BM earlier was not firm; normal per pt. Exam Narrative Exam Narrative: General: Obese female who is A&Ox3. Interactive. HEENT: No obvious evidence of facial trauma - no bruising or deformity; nose is TTP. Mild tenderness of left forehead. EOMI, MMM Cardiovascular: RRR. S1S2 Lungs: CTAB Gastrointestinal: soft, ND. Tenderness in RLQ w/o guarding/rebound. No masses palpated. Extremities: no edema BLE's Objective Last Vital Signs Temp 36.8 C 09/21/21 11:50 Pulse 114 H 09/21/21 11:50 Resp 12 09/21/21 11:50 BP 122/82 09/21/21 11:50 Pulse Ox 96 09/21/21 11:50 Laboratory Results - last 24 hr 09/21/21 06:45 Sodium 140 Potassium 3.6 Chloride 103 Carbon Dioxide 23.5 Anion Gap 13.5 H BUN 8 Creatinine 0.6 Estimated GFR/1.73 m2 >= 60.00 Glucose 152 H Calcium 9.8 Total Bilirubin 0.5 AST 206 H ALT 199 H Alkaline Phosphatase 150 H Total Protein 8.6 H Albumin 3.8
[2021-09-21] MEDS: Enoxaparin 40 MG/0.4 ML SYR SC (17:18)
[2021-09-21 19:37] VITALS: BP 106/76; PULSE 110; RESP 17; TEMP 36.5; O2SAT 95
[2021-09-21] MEDS: Divalproex 500 MG TABEC 1000 MG PO (21:33)
[2021-09-22 04:22] VITALS: BP 106/76; PULSE 101; RESP 18; TEMP 36.5; O2SAT 98
[2021-09-22 07:19] LABS: HCT 44.9 % (36.0-46.0); HGB 15.1 g/dL (11.2-15.7); MCH 32.8 pg (27.0-33.0); MCHC 33.6 % (32.0-36.0); MCV 97.4 fL (80-95); MPV 9.5 fL (8.0-11.0); Platelet Count 270 10^3/uL (130-400); RBC 4.61 10^6/uL (3.93-5.22); RDW-SD 43.4 fL; WBC 8.07 10^3/uL (4.4-10.8)
[2021-09-22 07:36] LABS: ALT 156 U/L (14-59); AST 140 U/L (15-37); Albumin 3.5 g/dL (3.4-5.0); Alkaline Phosphatase 164 U/L (46-116); Anion Gap 11.7 mmol/L (3-11); BUN 10 mg/dL (7-18); Bilirubin, Total 0.5 mg/dL (0.2-1.0); CO2 24.3 mmol/L (21.0-32.0); CREATININE 0.6 mg/dL (0.55-1.02); Calcium 9.5 mg/dL (8.5-10.1); Chloride 103 mmol/L (98-107); Glucose 147 mg/dL (74-106); Potassium 3.8 mmol/L (3.5-5.1); Sodium 139 mmol/L (136-145); Total Protein 8.1 g/dL (6.4-8.2)
[2021-09-22 07:53] VITALS: BP 121/82; PULSE 100; RESP 16; TEMP 36; O2SAT 97
[2021-09-22] MEDS: OLANZapine 5 MG TAB 15 MG PO (08:10)
[2021-09-22] MEDS: Divalproex 500 MG TABEC 1000 MG PO (08:11)
[2021-09-22] MEDS: Insulin Aspart 300 UNITS/3 ML PEN SC ×2 (08:12→11:34)
[2021-09-22] MEDS: ARIPiprazole 15 MG TAB 30 MG PO (08:12)
--- NOTE | 2021-09-22 08:55 | CMPROGNOTE_ITS ---
- If Service Date Differs Date of service: 09/22/21 Time of Service: 08:55 Care Management Progress Note S/O: Shaneka continues to be monitored and treated, reports re-starting some of her psych meds, and continues to closely monitor her LFTs. CM continues to follow. A: 41 year old female admitted to [facility] 09/17/21 for AMS, hyperglycemia P: Shaneka will return home when ready per MD. She will follow up with her ACADEMY EDUCATION DIRECTOR team at [facility] and transport via private vehicle either with her mother or via RCT. [facility]-Shaneka was able to safety plan and is cleared by mental health. She will have daily follow up calls and her ACADEMY EDUCATION DIRECTOR team was in support of attaching Shaneka with a new therapist and reviewing her medication drop schedule-per Sandi Mitchell-[facility] ES. Crisis numbers listed on the safety plan faxed to M/S by Sandi. Safety plan provided to .
--- NOTE | 2021-09-22 08:55 | PDOC.CMPRO ---
- If Service Date Differs Date of service: 09/22/21 Time of Service: 08:55 Care Management Progress Note S/O: Shaneka continues to be monitored and treated, reports re-starting some of her psych meds, and continues to closely monitor her LFTs. CM continues to follow. A: 41 year old female admitted to [facility] 09/17/21 for AMS, hyperglycemia P: Shaneka will return home when ready per MD. She will follow up with her MOBILE ARCHITECT team at [facility] and transport via private vehicle either with her mother or via RCT. [facility]-Shaneka was able to safety plan and is cleared by mental health. She will have daily follow up calls and her MOBILE ARCHITECT team was in support of attaching Shaneka with a new therapist and reviewing her medication drop schedule-per Sandi Mitchell-[facility] ES. Crisis numbers listed on the safety plan faxed to M/S by Sandi. Safety plan provided to .
--- NOTE | 2021-09-22 10:58 | W.PM.DS.N ---
Date of service: 09/22/21 Time of Service: 10:59 DS: Diagnosis Discharge Diagnosis (1) Intentional overdose: Status: Acute (2) Toxic metabolic encephalopathy: Status: Acute (3) Schizophrenia: Status: Chronic (4) Diabetes mellitus type 2 in obese: Status: Acute (5) DVT prophylaxis: Status: Acute (6) Discharge planning issues: Status: Acute Discharge Plan Disposition Patient Disposition: HOME Condition: Improving Discharge Details Reason For Visit: Intential Drug Overdose Admit Date/Time: 09/20/21 13:39 Admit Provider: Josefina Garay Attending Provider: Josefina Garay Primary Care Provider: Clau Feliz Hospital Course Hospital Course: Ms Samano is a 41 year old female with PMHx of schizophrenia, IDDM2, , prior h/o suicidal attempt by intentional drug overdose, medication noncompliance with h/o hoarding her medications, who is an [employer] client with weekly medication drop offs, who was brought to [facility] ED by ambulance after having an episode of unresponsiveness (?syncope) at [facility]. Per the ER provider, the patient was able to get up, but was noted to look very tired and had slurred speech. In the ED, she is somewhat slow to respond, but is A&Ox3. Per ED's conversation with the patient's mother, the patient has had slurred speech and has been sleepy for 1 year, but her mental status today is definitely worse. Per ED, there was no trauma to the head, her neurologic exam is nonfocal, and her CT/CTA head/neck was normal. Her labs demonstrated hyperglycemia without acidosis. UDS was negative, and the patient did not admit to taking medications inappropriately. The patient was found to have urinary retention and had a landis catheter placed. Observation on hospitalist service was requested. When I came to evaluate the patient, she was a little more alert than when she was in the ED (per mother who was at bedside). The patient stated I tried to kill myself. She nodded to when I asked if she had taken too much of her medications. The patient's mother was able to go back to the patient's home (she lives alone) and found that she took both doses of Tuesday and Tuesday medications, although of course it is unclear when. The patient cannot tell me when she took the medications. Per mother, her last medication delivery was yesterday. Poison control: Monitor for risk of serotonin toxicity: altered mental status, tremors, clonus, autonomic instability. Needs to be monitored until no longer symptomatic. Antipsychotics: AMS, QT prolongation risk. Tachycardia. Seizures. SSRI's AMS, n/v, dizziness, tachycardia. May have cardiac toxicity. Serial EKGs recommended: every 6 hrs. May have EPS. Benztropine: fever, dry mouse, dilated pupils, hypertension, n/v, tachycardia, agitated delirium, QRS widening. Rybelsus and bydureon: extension of effect/absorption Depakote: sedation, n, tachycardia, QTc prolongation, seizures, respiratory depression. GPN: FACILITY REHAB DIRECTOR depression. Respiratory depression. Levothyroxine: anxiety, tremor, ST, hypertension, ?AMS. Pregabalin: FACILITY REHAB DIRECTOR depression. Topamax: drawsiness, lethargy, seizures, dizziness, agitation, confusion, n/v, tremor, ataxia, hypotension, speech disturbances. Rarely, severe metabolic acidosis. Treatment: Symptmatic, supportive care, may require pressors. Agitation/seizures with benzos. QTc prolongation: monitor mag, K. Risk of hyperthermia: benzodiazepines/active cooling.Appt arranged with her MEDICAL RECORD ASSISTANT team at [facility] on Tuesday09/25/21. Lab/LFTs on this coming , 09/24/21. Cardiac monitoring showed no arrhythmias or significant QT prolongation. She gradually returned to her normal state of alertness and orientation x 3. Her liver enzymes were modestly elevated and she has had previous lab with elevated LFT's as well. Most of the medications she takes are metabolized by the liver, so a gradual re-introduction of her medications was initiated. She was cleared by mental health to return home with community services and close contact. Dr. Lake, psychiatry, was consulted for further guidance on her medications. She felt the depakote and Abilify were possibly the most improtant medications to start initially. The depakote was given as a lower dose than her usual dose the first day then increased to her usual dose. The abilify was initiated at her usual dose. Her LFT's did increase (AST from 116 to 206, ALT from 122 to 199). LFT's decreased the following day. Her home dose of Zyprexa was then re-introduced, then on the day of d/c, Christina restarted. She continued to endorse that she had no active suicidal ideations. She will f/u with her [facility] mental health physician on Tuesday. LFT's should be followed further as an outpt. Home Meds and New Rx's Prescriptions: Continued nystatin 100,000 unit/gram powder 1 applic TP DAILY Qty: 60 RF: 3 nystatin 100,000 unit/gram cream 1 applic TP BID Qty: 30 RF: 3 gabapentin 300 mg capsule 300 mg PO QHS RF: 0 aripiprazole [Abilify] 30 MG tablet 30 mg PO DAILY Qty: 30 RF: 5 pregabalin 200 mg capsule 200 mg PO BID Qty: 60 RF: 0 levothyroxine 75 MCG tablet 75 mcg PO DAILY RF: 0 benztropine 2 mg Tablet 2 mg PO HS RF: 0 divalproex 250 mg Tablet Extended Release 24 Hr 250 mg PO HS RF: 0 Bydureon BCise 2 mg/0.85 mL Auto-Injector 2 mg SUBCUT QWEEK RF: 0 divalproex 500 mg Tablet,Delayed Release (Dr/Ec) 1,000 mg PO BID RF: 0 docusate sodium 100 mg Tablet 100 mg PO BID RF: 0 Humalog KwikPen Insulin 200 unit/mL (3 mL) Insulin Pen 120 unit SUBCUT TID RF: 0 triamcinolone acetonide 0.1 % Cream 1 applic TOPICAL BID RF: 0 olanzapine 15 mg Tablet 15 mg PO DAILY RF: 0 minoxidil 2 % Solution 1 ml TOPICAL BID RF: 0 Levemir FlexTouch U-100 Insuln 100 unit/mL (3 mL) Insulin Pen 170 unit SUBCUT QHS RF: 0 Rybelsus 3 mg Tablet 3 mg PO DAILY RF: 0 citalopram [Celexa] 20 mg tablet 20 mg PO DAILY RF: 0 topiramate [Topamax] 50 mg tablet 50 mg PO BID RF: 0 Aristada 882 mg/3.2 mL suspension,extended rel syring 882 mg IM Q4W RF: 0 Discharge Instructions Instructions: Hepatic Encephalopathy (GEN), Diabetic Hyperglycemia (DC), Adult Overdose (ED), Encephalopathy (GEN) Stand Alone Forms: Nursing Discharge Form Referrals: Samuel Back [ NON-[facility] STAFF PHYSICIAN] - 09/25/21 9:30 am (Has an appt at [facility] with Dr. Back ) Activity:: Activity as Tolerated Equipment/Supplies:: No Equipment Needed Diet:: Diabetic diet Discharge Orders Discharge Orders: Discharge Order (Routine); Ordered 09/22/21 Ordered By: Los Harper Discharge Data Discharge Date/Time-TO BE ENTERED AT DEPARTURE: 09/22/21 13:25 DS: Summary Time Spent with Patient providing and/or coordinating discharge services: Greater than 30 minutes Status at Discharge Functional status at discharge: independent ambulation Overall status at discharge: patient is progressing back to baseline Mental Status: mental status grossly normal Speech and Movement: speech clear Mood: anxious mood Affect: blunted Exam Psych Mental Status: mental status grossly normal Speech and Movement: speech clear Mood: anxious mood Affect: blunted DS: Data Vitals/I&O Vitals and I&O: Vital Signs Temperature 36.0 C L 09/22/21 07:53 Temperature Source Tympanic 09/22/21 07:53 Pulse 100 H 09/22/21 07:53 Pulse Rhythm Regular 09/22/21 08:00 Pulse 87 09/18/21 21:30 Respiratory Rate 16 09/22/21 07:53 Respiratory Effort Non-Labored 09/22/21 08:00 Respiratory Depth Normal 09/22/21 08:00 Respiratory Pattern Normal 09/22/21 08:00 Blood Pressure 121/82 09/22/21 07:53 Blood Pressure Mean 74 09/18/21 20:13 Blood Pressure Position Supine 09/18/21 15:31 Pulse Oximetry 97 09/22/21 07:53 Oxygen Delivery Method Room Air 09/22/21 07:53 Oxygen Flow Rate 0 09/22/21 07:53 Fraction of Inspired Oxygen (FIO2) 95 09/18/21 10:08 Pain Level 0 09/22/21 08:00 Comment 09/22/21 08:00 Intake & Output 09/21/21 09/21/21 09/22/21 11:59 23:59 11:59 Intake Total 210 / 690 480 / 690 Balance 210 / 690 480 / 690 Weight 81.3 kg 80.1 kg Intake: IV Oral 200 / 680 480 / 680 Other: Urine Appearance Clear Clear Clear Comment patient is independent to bathroom. patient independent to the bathroom states she had a normal urination this AM Stool Characteristics Soft Voiding Methods Toilet Toilet Data Completed and Pending Labs on day of discharge: Labs from last 24 hours 09/22/21 09/22/21 06:45 06:45 WBC 8.07 RBC 4.61 Hgb 15.1 Hct 44.9 MCV 97.4 H MCH 32.8 MCHC 33.6 RDW 12.0 Plt Count 270 MPV 9.5 Sodium 139 Potassium 3.8 Chloride 103 Carbon Dioxide 24.3 Anion Gap 11.7 H BUN 10 Creatinine 0.6 Estimated GFR/1.73 m2 >= 60.00 Glucose 147 H Calcium 9.5 Total Bilirubin 0.5 AST 140 H ALT 156 H Alkaline Phosphatase 164 H Total Protein 8.1 Albumin 3.5 PFSH All Active Problems Intentional overdose (Acute) Toxic metabolic encephalopathy (Acute) Discharge planning issues (Acute) DVT prophylaxis (Acute) Abnormal vaginal bleeding (Acute) Non compliance w medication regimen (Acute) Blood glucose elevated (Acute) Altered mental state (Acute) Possible exposure to STD (Acute) Vaginitis (Acute) Yeast dermatitis (Acute) Erythema (Acute) Deviated nasal septum (Chronic) Trigeminal neuralgia of left side of face (Acute 01/03/18) Drug overdose, intentional (Acute) Schizophrenia (Chronic) Suicidal ideation (Acute) Diabetes mellitus type 2 in obese (Acute) History of hypothyroidism (Chronic) Medical History Anovulatory bleeding H/O suicide attempt RLS (restless legs syndrome) Schizoaffective disorder Type 2 diabetes mellitus Surgical History H/O pilonidal cyst Ligation of fallopian tube S/p breast implant removal Sep 2019 S/P breast implant, left S/P foot surgery Family History Mother Diabetes Father Heart disease Social History Smoking/Tobacco Use Status: Former Tobacco Use Smoking risk assessment performed?: Yes Alcohol Intake: never Drug use: Never Substance use type: does not use Number of Children: 2 current occupation: Disabled Seatbelt use: always Do you feel safe at home: Yes Do you feel safe in your relationship?: Yes Female Reproductive History Menstrual control method: permanent sterilization History History 2 Para 2 Hx # Term Pregnancies Multiple births Hx # Pregnancies Ectopic pregnancies AB induced Hx Number of Living Children AB spontaneous
[2021-09-22 11:29] VITALS: BP 106/69; PULSE 99; RESP 17; TEMP 36.3; O2SAT 97
[2021-09-22] MEDS: Pregabalin 50 MG CAP 200 MG PO (11:33)
--- NOTE | 2021-09-22 15:27 | PDOC.CMDIS ---
- If Service Date Differs Date of service: 09/22/21 Time of Service: 15:27 LACE Index Scoring Tool - Questions: Length of Stay (in days): 2 Acuity (Admit via E.D.?): Yes Comorbidities: Diabetes w/o Complication E.D. Visits: 2 - Answers: Total Score: 8 Risk of Readmission: Low Risk Care Management Discharge Reason for Hospitalization: Altered mental status, hyperglycemia Discharge Plan: Shaneka will be discharged home with a resumption of her community resources. She will follow up with her PCP and psychiatrist and plan of care. Shaneka will transport via [facility] coordinated by CM. Patient/Family Education Needs: Review discharge instructions, discuss Ask Me Three. Services Needed at Discharge: Transportation - MH Services (Omit if N/A) Current MH Services: CHIEF GAUGER - Disposition Disposition: Community Discharge
== END 2021-09-22 13:25 | disposition home or self-care (01) | DRG 917 ==
LOC: ER 14:49 → MS 16:02 → ICU 17:35 → MS 21:50 → ICU 21:51 → MS 09-19 03:10
PROVIDERS: Family Medicine; Internal Medicine; Admitting Provider Internal Medicine; Emergency Provider Student in an Organized Health Care Education/Training Program; PCP Nurse Practitioner Family; Visit Provider Internal Medicine
DX: T50.992A Poisoning by other drugs, medicaments and biological substances, intentional self-harm, initial encounter (principal); G92.8 Other toxic encephalopathy; F20.9 Schizophrenia, unspecified; E03.9 Hypothyroidism, unspecified; E66.9 Obesity, unspecified; R33.9 Retention of urine, unspecified; E11.9 Type 2 diabetes mellitus without complications; R47.81 Slurred speech; K76.0 Fatty (change of) liver, not elsewhere classified
CPT/HCPCS: 36415; 51701; 70496; 70498; 71275; 80048; 80053; 80076; 80307; 82550; 82805; 85027; 87635; 92610; 93005; 96360; 99285; J1650; Q3014; 70486; 76700; 76856; 80164; 80320; 80329; 81003; 82140; 83036; 83605; 83735; 84100; 84443; 84484; 85025; 93010; 99233; 99239; 99291; G0378; J3480; J3490

== ENCOUNTER 2021-10-05 14:32 | Outpatient (REF) | payer MEDICAID, SELFPAY ==
[2021-10-05 19:30] LABS: COMMENT (LAB VIEW ONLY) 43.39 mg/dL; Microalb ug/mg Crea 12.7 ug/mg Cr
[2021-10-05 20:22] LABS: Hemoglobin A1C 10.7 % (<5.7)
[2021-10-05 20:39] LABS: ALT 84 U/L (14-59); AST 67 U/L (15-37); Albumin 3.4 g/dL (3.4-5.0); Alkaline Phosphatase 200 U/L (46-116); Anion Gap 12.9 mmol/L (3-11); BUN 10 mg/dL (7-18); Bilirubin, Total 0.2 mg/dL (0.2-1.0); CO2 23.1 mmol/L (21.0-32.0); CREATININE 0.7 mg/dL (0.55-1.02); Calcium 9.1 mg/dL (8.5-10.1); Chloride 102 mmol/L (98-107); Glucose 233 mg/dL (74-106); Potassium 4.2 mmol/L (3.5-5.1); Sodium 138 mmol/L (136-145); TSH (W/Ref FT4) 2.11 uIU/mL (0.36-3.74); Total Protein 7.3 g/dL (6.4-8.2)
[2021-10-05 20:40] LABS: HCG Quant, Pregnancy < 1 mIU/mL (1-3)
[2021-10-07 13:00] LABS: Fructosamine 281 mcmol/L (200 - 285)
[2021-10-07 14:32] LABS: FSH 5.6 mIU/mL (See Note); Prolactin 4.8 ng/mL (See Table)
== END 2021-10-05 14:33 | disposition home or self-care (01) ==
LOC: NCHCN 14:32
PROVIDERS: PCP Nurse Practitioner Family; Visit Provider Nurse Practitioner Family
DX: E11.9 Type 2 diabetes mellitus without complications (principal); N91.2 Amenorrhea, unspecified
CPT/HCPCS: 80053; 82043; 82570; 82985; 83001; 83002; 83036; 84146; 84443; 84702

== ENCOUNTER 2021-11-07 21:43 | Emergency (ER) | payer MEDICAID, SELFPAY ==
[2021-11-07 21:46] VITALS: BP 151/98; PULSE 105; RESP 18; TEMP 36.6; O2SAT 98
--- NOTE | 2021-11-07 21:51 | W.ED.GENAD ---
Discharge Plan Disposition Patient Disposition: HOME Condition: Stable Discharge Details Clinical Impression: Pain, dental Primary Care Provider: YURI HARRELL ED Provider: Carl Huang Home Meds and New Rx's Prescriptions: New clindamycin HCl 300 mg capsule 300 mg PO Q6H 10 Days Qty: 40 0RF ibuprofen 800 mg tablet 800 mg PO TID PRNQty: 20 0RF Continued gabapentin 300 mg capsule 300 mg PO QHS 0RF pregabalin 200 mg capsule 200 mg PO BID Qty: 180 3RF aripiprazole [Abilify] 30 MG tablet 30 mg PO DAILY Qty: 30 5RF levothyroxine 75 MCG tablet 75 mcg PO DAILY 0RF benztropine 2 mg Tablet 2 mg PO HS 0RF divalproex 250 mg Tablet Extended Release 24 Hr 250 mg PO HS 0RF Bydureon BCise 2 mg/0.85 mL Auto-Injector 2 mg SUBCUT QWEEK 0RF divalproex 500 mg Tablet,Delayed Release (Dr/Ec) 1,000 mg PO BID 0RF docusate sodium 100 mg Tablet 100 mg PO BID 0RF Humalog KwikPen Insulin 200 unit/mL (3 mL) Insulin Pen 120 unit SUBCUT TID 0RF olanzapine 15 mg Tablet 15 mg PO DAILY 0RF Levemir FlexTouch U-100 Insuln 100 unit/mL (3 mL) Insulin Pen 170 unit SUBCUT QHS 0RF citalopram [Celexa] 20 mg tablet 20 mg PO DAILY 0RF Label Comments: Take 1 tablet by mouth every morning topiramate [Topamax] 50 mg tablet 50 mg PO BID 0RF Label Comments: Take 1 tablet by mouth twice a day Aristada 882 mg/3.2 mL suspension,extended rel syring 882 mg IM Q4W 0RF Label Comments: take IM every 4 weeks Rx Instructions: every 4 weeks Discharge Instructions Instructions: Toothache (ED) Additional Instructions: Discontinue the amoxicillin and [id number] Advil and begin taking the prescription of clindamycin and ibuprofen. Viscous lidocaine as directed. [id number] medications as directed for symptomatic control. Salt water swish and spit as tolerated. Cool and/or warm compresses every 2 hours for 20 minutes. Please watch for new or worsening symptoms and return to the ER for any concerns. Lastly, I do recommend contacting your dentist first thing Ephraim morning to make them aware of your ongoing symptoms and need for outpatient reevaluation hopefully sooner than already scheduled. Medical Decision Making 41-year-old female, history of overall poor dentition, presents with acute on chronic right upper dental discomfort that she made worse after chewing steak. Has already been seen by her dentist, given Tylenol and amoxicillin, scheduled for right dental extraction on December 30. Clinically she appears well, nontoxic, no evidence of trismus. I see no obvious signs of dental abscess. While the tooth does appear to have a chronic fracture, I cannot appreciate an acute fracture or any nerve root exposure that I could place a temporary filling. No indication for I&D. Patient is specifically asking for oxycodone but I see no indication for this. I did offer her a dental block and IM Toradol injection however she declined both. Given her discomfort is subjectively worsening, I will initiate a more wide spectrum antibiotic. She is agreeable to p.o. ibuprofen and topical lidocaine. She will be given the rest of the 15 mL viscous lidocaine to go home with. Will give the first dose of clindamycin as well Standard discharge and return precautions were provided This documentation was generated using [employer] dictation system, please disregard any oddities of phrase or misspellings. Medical Records Medical records reviewed: Yes I reviewed the patient's medical records. HPI General Mode of arrival: ambulatory. Date/Time Provider Initiated Documentation: 11/07/21 21:51. Limitations to Documentation: no limitations. Information obtained by: patient. HPI Narrative: This is a 41-year-old female, past medical history of diabetes, schizophrenia, former smoker, presenting to the ER reporting right upper dental pain worsening over the past few days. She states that she has baseline poor dentition but felt as though she irritated the 2-3 or 4 days ago while eating a steak. She subsequently saw her dentist the following day, states that they gave her Tylenol and amoxicillin which she has been taking without much relief. She did occasionally take Advil but states that ibuprofen works better she does not have any of that. She denies ear pain, fever, difficulty speaking or swallowing. She has an appointment with the dentist on December 30 to have her tooth removed. Patient is requesting additional medication, specifically oxycodone. Related Data Home Medications Medication Instructions Recorded Confirmed levothyroxine 75 mcg tablet 75 mcg PO DAILY 03/15/16 11/07/21 aripiprazole 30 mg tablet (Abilify) 30 mg PO DAILY #30 tab-cap 11/29/17 11/07/21 gabapentin 300 mg capsule 300 mg PO QHS cap 10/25/18 11/07/21 aripiprazole lauroxil 882 mg/3.2 882 mg IM Q4W 07/12/21 11/07/21 mL suspension, ext.rel. IM syringe (Aristada) citalopram 20 mg tablet (Celexa) 20 mg PO DAILY 07/12/21 11/07/21 topiramate 50 mg tablet (Topamax) 50 mg PO BID 07/12/21 11/07/21 benztropine 2 mg tablet 2 mg PO HS 09/17/21 11/07/21 divalproex 250 mg tablet,extended 250 mg PO HS 09/17/21 11/07/21 release 24 hr divalproex 500 mg tablet,delayed 1,000 mg PO BID 09/17/21 11/07/21 release docusate sodium 100 mg tablet 100 mg PO BID 09/17/21 11/07/21 exenatide microspheres 2 mg/0.85 2 mg SUBCUT QWEEK 09/17/21 11/07/21 mL subcutaneous auto-injector (Bymelissa Hutchison) insulin detemir U-100 100 unit/mL 170 unit SUBCUT QHS 09/17/21 11/07/21 (3 mL) subcutaneous pen (Levemir FlexTouch U-100 Insulin) insulin lispro 200 unit/mL (3 mL) 120 unit SUBCUT TID 09/17/21 11/07/21 subcutaneous pen (Humalog KwikPen U-200 Insulin) olanzapine 15 mg tablet 15 mg PO DAILY 09/17/21 11/07/21 pregabalin 200 mg capsule 200 mg PO BID #180 cap 10/06/21 11/07/21 clindamycin HCl 300 mg capsule 300 mg PO Q6H 10 Days #40 cap 11/07/21 ibuprofen 800 mg tablet 800 mg PO TID PRN #20 tab 11/07/21 Previous Rx's Medication Instructions Recorded aripiprazole 30 mg tablet (Abilify) 30 mg PO DAILY #30 tab-cap 11/29/17 pregabalin 200 mg capsule 200 mg PO BID #180 cap 10/06/21 clindamycin HCl 300 mg capsule 300 mg PO Q6H 10 Days #40 cap 11/07/21 ibuprofen 800 mg tablet 800 mg PO TID PRN #20 tab 11/07/21 Allergies Allergy/AdvReac Type Severity Reaction Status Date / Time codeine Allergy Mild Unverified 11/07/21 21:52 General Stated Complaint: DentalOral CECILIA: 4 Review of Systems Constitutional Constitutional: Denies fever(s) and Denies headache(s) ENT Ears, Nose, Mouth, and Throat: Denies headache(s), Denies neck pain and Denies sore throat Musculoskeletal Musculoskeletal: Denies neck pain Integumentary/Breasts Skin/Breast: Denies erythema Neurologic Neurologic: Denies headache(s) PFSH All Active Problems (Updated 11/07/21 @ 22:16 by CECI Gold) Pain, dental (Acute) Abnormal vaginal bleeding (Acute) Non compliance w medication regimen (Acute) Blood glucose elevated (Acute) Possible exposure to STD (Acute) Vaginitis (Acute) Yeast dermatitis (Acute) Erythema (Acute) Deviated nasal septum (Chronic) Trigeminal neuralgia of left side of face (Acute 01/03/18) Drug overdose, intentional (Acute) Schizophrenia (Chronic) Suicidal ideation (Acute) Diabetes mellitus type 2 in obese (Acute) History of hypothyroidism (Chronic) Medical History (Updated 11/07/21 @ 22:16 by CECI Gold) Anovulatory bleeding H/O suicide attempt RLS (restless legs syndrome) Schizoaffective disorder Type 2 diabetes mellitus Surgical History H/O pilonidal cyst Ligation of fallopian tube S/p breast implant removal Sep 2019 S/P breast implant, left S/P foot surgery Family History Mother Diabetes Father Heart disease Social History Smoking/Tobacco Use Status: Former Tobacco Use Smoking risk assessment performed?: Yes Alcohol Intake: never Drug use: Never Substance use type: does not use Number of Children: 2 current occupation: Disabled Seatbelt use: always Do you feel safe at home: Yes Do you feel safe in your relationship?: Yes Female Reproductive History Menstrual control method: permanent sterilization History History 2 Para 2 Hx # Term Pregnancies Multiple births Hx # Pregnancies Ectopic pregnancies AB induced Hx Number of Living Children AB spontaneous Exam Const General: cooperative, healthy appearing, comfortable and no acute distress Orientation: alert and awake [facility] Head: normal to inspection, normocephalic and atraumatic Ears: external ears normal, TM's normal bilaterally and EAC's normal Face and sinus: other (I do not appreciate any swelling, erythema, warmth.) Face images: 1. Diffuse mild discomfort to palpation Mouth: oral mucosae normal and moist mucous membranes Teeth and gingiva: poor dentition Teeth image: 1. Poor dentition throughout but she does have point tenderness over tooth #3. Tooth #3 appears to have a chronic fracture but I do not appreciate any acute fracture or localized tissue swelling, erythema, or any associated drainage. There is no trismus. Throat: posterior oropharynx normal Eyes General: appearance normal, both eyes and all related structures Conjunctivae: conjunctivae normal Neck Neck: normal visual inspection, full ROM, no lymphadenopathy, trachea midline, supple and nontender Resp Effort & Inspection: normal respiratory effort and able to speak in complete sentences Cardio Rate: regular rate Rhythm: regular rhythm Skin General skin exam: no rashes or lesions noted Neuro General: patient alert, patient awake, moves all extremities and no focal motor deficits Sensory Exam: no sensory deficits noted Psych Appearance: grossly normal Mental Status: mental status grossly normal Course Vital Signs Vital signs: Vital Signs Temperature 36.6 C 11/07/21 21:46 Pulse 105 H 11/07/21 21:46 Respiratory Rate 18 11/07/21 21:46 Blood Pressure 151/98 H 11/07/21 21:46 Pulse Oximetry 98 11/07/21 21:46 Temperature 36.6 C 11/07/21 21:46 Temperature Source Skin 11/07/21 21:46 Pulse 105 H 11/07/21 21:46 Respiratory Rate 18 11/07/21 21:46 Blood Pressure 151/98 H 11/07/21 21:46 Blood Pressure Position Sitting 11/07/21 21:46 Pulse Oximetry 98 11/07/21 21:46 Oxygen Delivery Method Room Air 11/07/21 21:46 Oxygen Flow Rate 0 11/07/21 21:46 Pain Level 3 11/07/21 21:46
[2021-11-07] MEDS: Lidocaine 2% Viscous 15 ML CUP PO (22:10)
[2021-11-07] MEDS: Clindamycin 300 MG CAP PO (22:10)
[2021-11-07] MEDS: Ibuprofen 800 MG TAB PO (22:10)
== END 2021-11-07 22:22 | disposition home or self-care (01) ==
PROVIDERS: Emergency Provider Physician Assistant; PCP Nurse Practitioner Family
DX: K08.89 Other specified disorders of teeth and supporting structures (principal)
CPT/HCPCS: 99283

== ENCOUNTER 2021-11-24 20:30 | Emergency (ER) | payer MEDICAID, SELFPAY ==
[2021-11-24] VITALS (16 sets, daily range): BP systolic 100–129; BP diastolic 58–78; PULSE 76–98; RESP 18; TEMP 36.4; O2SAT 95–97
--- NOTE | 2021-11-24 20:50 | W.ED.GENAD ---
Discharge Plan Disposition Patient Disposition: HOME Condition: Good Discharge Details Clinical Impression: Abdominal pain, Blood glucose elevated, Abnormal transaminases Primary Care Provider: YURI HARRELL ED Provider: Mickie Mary Home Meds and New Rx's Prescriptions: Continued gabapentin 300 mg capsule 300 mg PO QHS 0RF pregabalin 200 mg capsule 200 mg PO BID Qty: 180 3RF aripiprazole [Abilify] 30 MG tablet 30 mg PO DAILY Qty: 30 5RF levothyroxine 75 MCG tablet 75 mcg PO DAILY 0RF benztropine 2 mg Tablet 2 mg PO HS 0RF divalproex 250 mg Tablet Extended Release 24 Hr 250 mg PO HS 0RF Bydureon BCise 2 mg/0.85 mL Auto-Injector 2 mg SUBCUT QWEEK 0RF divalproex 500 mg Tablet,Delayed Release (Dr/Ec) 1,000 mg PO BID 0RF docusate sodium 100 mg Tablet 100 mg PO BID 0RF Humalog KwikPen Insulin 200 unit/mL (3 mL) Insulin Pen 120 unit SUBCUT TID 0RF olanzapine 15 mg Tablet 15 mg PO DAILY 0RF Levemir FlexTouch U-100 Insuln 100 unit/mL (3 mL) Insulin Pen 170 unit SUBCUT QHS 0RF ibuprofen 800 mg tablet 800 mg PO TID PRNQty: 20 0RF citalopram [Celexa] 20 mg tablet 20 mg PO DAILY 0RF Label Comments: Take 1 tablet by mouth every morning topiramate [Topamax] 50 mg tablet 50 mg PO BID 0RF Label Comments: Take 1 tablet by mouth twice a day Aristada 882 mg/3.2 mL suspension,extended rel syring 882 mg IM Q4W 0RF Label Comments: take IM every 4 weeks Rx Instructions: every 4 weeks Discharge Instructions Instructions: Abdominal Pain (ED), Diabetic Hyperglycemia (ED) Additional Instructions: Your labs and imaging are reassuring here today. I do not find any acute cause of your acute on chronic abdominal discomfort. I would like for you to be able to follow-up with your primary care to discuss your month of abdominal pain further. In the interim, please encourage hydration. You may use Tylenol and ibuprofen as needed for discomfort. I am concerned about your glucose. Even when you are not having your typical dietary intake, you should be checking your sugar as instructed by your primary care and taking your insulin accordingly. This time, your glucose is in the 300s and I highly recommend taking your medications more routinely. If you develop fever/chills, increased pain, inability to hydrate or other new/worsening symptoms please seek care urgently once again. Otherwise, please follow-up with your primary care within the next week for reevaluation. Referrals: YURI HARRELL [facility]ER [Primary Care Provider] - Discharge Data Discharge Date/Time-TO BE ENTERED AT DEPARTURE: 11/24/21 23:51 Medical Decision Making Patient is a pleasant 41-year-old female presents for chief complaint of right upper quadrant pain. She reports the pain began approximately 1 month ago. States the pain is intermittent and not stimulated by any specific precipitating factor. Denies anything that improves the discomfort. Denies any nausea or vomiting. Denies any specific dietary changes or change in the discomfort associated with p.o. intake or foods. Denies any acute change in bowel habits. States that she intermittently has some blood in her stool but this is baseline. States the pain can radiate through to her back. States over the past couple of days she developed some dysuria. Has not recently noted hematuria. Denies any fevers. No recent change in weight. Denies any vaginal discharge. States that it is been a long time since she last had her menses. Is status post tubal ligation, no other intra-abdominal surgeries Past medical history is pertinent for noncompliance medication regimen, patient reports she has not been taking her insulin as her appetites been down she has not been eating as much but does. Has also not been checking her glucose. States that today she had toast with jelly. Past medical history is also pertinent for schizophrenia, suicidal ideations, type 2 diabetes, hypothyroidism. She does report she has not taken her other medications aside from insulin. On exam, she appears nontoxic. She appears to be at her baseline. Lungs are clear, normal cardiac exam. She denies any shortness of breath or chest pain. No exertionally based symptoms. Abdominal exam is benign, not having any significant discomfort with palpation. Normal bowel sounds. Negative Daigle sign, no pain over McBurney's point. No lower extremity edema. Calves are soft and nontender. FINDINGS: Bones/joints: No acute fracture. Normal alignment. Discs/Spinal canal/Neural foramina: There are multilevel degenerative changes most prominent at C4-C5 with bilateral neural foraminal narrowing. No significant spinal canal stenosis. Lungs: Lung apices are normal. Soft tissues: Unremarkable. IMPRESSION: No acute fracture. Multilevel degenerative changes as described.Reproductive: Status post tubal ligation. Bones/joints: Unremarkable. No acute fracture. Soft tissues: Multiple soft tissue attenuation nodules are noted in the subcutaneous fat, presumed injection granulomata, unchanged from previous study. IMPRESSION: No acute abnormality is seen to account for symptoms. Labs reviewed. No signficant abnormality on CBC. No leukocytosis. CMP signficant for elevated glucose, no other indications for DKA. This is likely longstanding as she has been noncompliant with her medications. She also seemed unaware of how discomfort, appetite and illness can affect her glucose so we did have lengthy discussion about this. She also has transaminitis but this is not atypical for the patient. She and I discussed her chronic abdominal pain. I advised that she should f/u with her PCP regarding her chronic abdominal pain. Advised that she may need US of her RRUQ, in particular her liver for the elvated liver enzymes. Encouraged hydration. Encouraged she take her medications. Offered insulin now and she declined, will take this once she is home. We discussed the improtance of taking her medications and checking her glucose regularly. Return precautions discussed. All of her questions and concerns were addressed, she is in agreement with this plan. HPI General Date/Time Provider Initiated Documentation: 11/24/21 20:50. Limitations to Documentation: no limitations. Information obtained by: patient, RN notes reviewed and old records reviewed. History of Present Illness 41 year old F presents to the emergency department with the chief complaint of RUQ pain, described as mild (no pain currently), Quality is described as aching, and is localized to the abdomen. Patient reports no radiation. Patient started experiencing this month(s) and it has been intermittent. improves with No relieving factors improve symptom(s), No exacerbating factors reported . Patient notes no other symptoms.. Patient did receive the following treatments prior to arrival, none Related Data Home Medications Medication Instructions Recorded Confirmed levothyroxine 75 mcg tablet 75 mcg PO DAILY 03/15/16 11/07/21 aripiprazole 30 mg tablet (Abilify) 30 mg PO DAILY #30 tab-cap 11/29/17 11/07/21 gabapentin 300 mg capsule 300 mg PO QHS cap 10/25/18 11/07/21 aripiprazole lauroxil 882 mg/3.2 882 mg IM Q4W 07/12/21 11/07/21 mL suspension, ext.rel. IM syringe (Aristada) citalopram 20 mg tablet (Celexa) 20 mg PO DAILY 07/12/21 11/07/21 topiramate 50 mg tablet (Topamax) 50 mg PO BID 07/12/21 11/07/21 benztropine 2 mg tablet 2 mg PO HS 09/17/21 11/07/21 divalproex 250 mg tablet,extended 250 mg PO HS 09/17/21 11/07/21 release 24 hr divalproex 500 mg tablet,delayed 1,000 mg PO BID 09/17/21 11/07/21 release docusate sodium 100 mg tablet 100 mg PO BID 09/17/21 11/07/21 exenatide microspheres 2 mg/0.85 2 mg SUBCUT QWEEK 09/17/21 11/07/21 mL subcutaneous auto-injector (Bydureon BCise) insulin detemir U-100 100 unit/mL 170 unit SUBCUT QHS 09/17/21 11/07/21 (3 mL) subcutaneous pen (Levemir FlexTouch U-100 Insulin) insulin lispro 200 unit/mL (3 mL) 120 unit SUBCUT TID 09/17/21 11/07/21 subcutaneous pen (Humalog KwikPen U-200 Insulin) olanzapine 15 mg tablet 15 mg PO DAILY 09/17/21 11/07/21 pregabalin 200 mg capsule 200 mg PO BID #180 cap 10/06/21 11/07/21 ibuprofen 800 mg tablet 800 mg PO TID PRN #20 tab 11/07/21 Previous Rx's Medication Instructions Recorded aripiprazole 30 mg tablet (Abilify) 30 mg PO DAILY #30 tab-cap 11/29/17 pregabalin 200 mg capsule 200 mg PO BID #180 cap 10/06/21 ibuprofen 800 mg tablet 800 mg PO TID PRN #20 tab 11/07/21 Allergies Allergy/AdvReac Type Severity Reaction Status Date / Time codeine Allergy Mild Unverified 11/24/21 20:42 General Stated Complaint: Abd Prob CECILIA: 3 Review of Systems Constitutional Constitutional: Reports as per HPI, Denies chills and Denies fever(s) Cardiovascular Cardiovascular: Reports as per HPI, Denies chest pain and Denies dyspnea Respiratory Respiratory: Reports as per HPI, Denies cough and Denies dyspnea Gastrointestinal Gastrointestinal: Reports as per HPI Musculoskeletal Musculoskeletal: Reports as per HPI and Denies back pain Integumentary/Breasts Skin/Breast: Reports as per HPI and Denies rash Neurologic Neurologic: Reports as per HPI PFSH All Active Problems (Updated 11/24/21 @ 23:41 by CECI Aleman) Pain, dental (Acute) Abdominal pain (Acute) Blood glucose elevated (Acute) Abnormal transaminases (Acute) Abnormal vaginal bleeding (Acute) Non compliance w medication regimen (Acute) Blood glucose elevated (Acute) Possible exposure to STD (Acute) Vaginitis (Acute) Yeast dermatitis (Acute) Erythema (Acute) Deviated nasal septum (Chronic) Trigeminal neuralgia of left side of face (Acute 01/03/18) Drug overdose, intentional (Acute) Schizophrenia (Chronic) Suicidal ideation (Acute) Diabetes mellitus type 2 in obese (Acute) History of hypothyroidism (Chronic) Medical History (Updated 11/24/21 @ 23:41 by CECI Aleman) Anovulatory bleeding H/O suicide attempt RLS (restless legs syndrome) Schizoaffective disorder Type 2 diabetes mellitus Surgical History H/O pilonidal cyst Ligation of fallopian tube S/p breast implant removal Sep 2019 S/P breast implant, left S/P foot surgery Family History Mother Diabetes Father Heart disease Social History Smoking/Tobacco Use Status: Former Tobacco Use Smoking risk assessment performed?: Yes Alcohol Intake: never Drug use: Never Substance use type: does not use Number of Children: 2 current occupation: Disabled Seatbelt use: always Do you feel safe at home: Yes Do you feel safe in your relationship?: Yes Female Reproductive History Menstrual control method: permanent sterilization History History 2 Para 2 Hx # Term Pregnancies Multiple births Hx # Pregnancies Ectopic pregnancies AB induced Hx Number of Living Children AB spontaneous Exam Const General: cooperative, healthy appearing, comfortable, no acute distress and well developed Nutritional Appearance: well nourished and obese Orientation: alert and awake [facility] Head: normal to inspection Mouth: moist mucous membranes Resp Effort & Inspection: normal respiratory effort, able to speak in complete sentences and no respiratory distress Auscultation: clear to auscultation bilaterally, no rales, no rhonchi and no wheezes Cardio Rate: regular rate Rhythm: regular rhythm Heart Sounds: S1 normal and S2 normal GI Inspection: normal to inspection, non-distended, obesity and no visible herniation Palpation: soft, not firm, no guarding, no masses, not rigid and nontender Percussion: normal to percussion Auscultation: normal bowel sounds Back/Spine/Pelvis Back: no CVA tenderness Skin General skin exam: no rashes or lesions noted Trauma: no lacerations or abrasions Neuro General: patient alert and patient awake Cognition: normal cognition Speech: speech normal Gait: normal gait Psych Appearance: grossly normal and well kempt Mental Status: mental status grossly normal Speech and Movement: speech and movement normal Course Vital Signs Vital signs: Vital Signs Temperature 36.4 C L 11/24/21 20:37 Pulse 98 H 11/24/21 20:37 Respiratory Rate 18 11/24/21 20:37 Blood Pressure 129/78 11/24/21 20:37 Pulse Oximetry 97 11/24/21 20:37 Temperature 36.4 C L 11/24/21 20:37 Temperature Source Skin 11/24/21 20:37 Pulse 98 H 11/24/21 20:37 Respiratory Rate 18 11/24/21 20:37 Respiratory Effort 11/24/21 20:40 Blood Pressure 129/78 11/24/21 20:37 Blood Pressure Position Sitting 11/24/21 20:37 Pulse Oximetry 97 11/24/21 20:37 Oxygen Delivery Method Room Air 11/24/21 20:37 Oxygen Flow Rate 0 11/24/21 20:37 Pain Level 0 11/24/21 20:37
--- NOTE | 2021-11-24 21:15 | DI.CT_ITS ---
Exam(s) CT ABDOMEN PELVIS W EXAM: CT ABDOMEN PELVIS W CLINICAL HISTORY: RUQ pain. TECHNIQUE: Imaging Protocol: Axial computed tomography images with coronal and sagittal reformatted images were created and reviewed CONTRAST MATERIAL: Intravenous: Omnipaque 100cc Oral: None COMPARISON: CT CT ABDOMEN PELVIS W from 08/31/[address] CHEST PE CTA from 09/17/2021 FINDINGS: VISUALIZED LUNG BASES: No nodules nor pleural effusions evident. ABDOMEN: There is no ascites. LIVER: There are no focal hepatic lesions evident. Mild steatosis. GALLBLADDER/BILIARY: No obvious gallbladder pathology. CBD is not dilated. PANCREAS: No evidence of pancreatic mass nor dilatation of the pancreatic duct. SPLEEN: Spleen is not enlarged. No obvious intrasplenic lesions. Splenic and portal veins are paten t. ADRENALS: There are no significant adrenal masses. KIDNEYS:No cysts evident. No solid renal masses. No calculi nor hydronephrosis.. ABDOMINAL AORTA: Abdominal aorta is not enlarged. LYMPH NODES:There is no retroperitoneal nor paraaortic adenopathy. ABDOMINAL WALL: No evidence of significant anterior abdominal wall nor inguinal hernia. However, the re is bilateral anterior abdominal wall skin thickening and subcutaneous fat stranding which is eithe r related to cellulitis or multiple skin injections. There is no drainable fluid collection in the a nterior abdominal wall subcutaneous tissue. In addition, there are multiple noncalcified nodules in the subcutaneous fat over both sides of the lower back-upper buttock regions. GI: There is no evidence of bowel obstruction, free air, nor abscess. PELVIS: GI: No evidence of appendicitis.No evidence of sigmoid diverticulitis. LYMPH NODES: There is no intrapelvic nor inguinal adenopathy. REPRODUCTIVE: Bilateral tubal ligation clips are noted. Uterus size unremarkable. No abnormal adnex al masses. Ovaries appear age-appropriate. URINARY BLADDER: No calculi nor obvious masses evident OSSEOUS: No significant osseous lesions. IMPRESSION: 1. No acute findings in the abdomen pelvis. 2. Multiple noncalcified densities again noted over both upper buttocks which are probably related to injection sites and were evident on CT scan of August 2019. Also anterior abdominal wall fat stra nding noted which is probably also related to injections. There are no drainable fluid collections i n the subcutaneous tissue. 3. Evidence of bilateral tubal ligation. RADIATION DOSE DELIVERED: 1,069.01mGy.cm Total DLP DATA REPOSITORY: All CT scans at this facility are submitted to the National Radiology Data Registry (NRDR) Dose Index Registry (DIR) with the [employer] (ACR). RADIATION OPTIMIZATION: All CT scans at this facility use at least one of these dose optimization te chniques: automated exposure control; mA and/or kV adjustment per patient size (includes targeted exa ms where dose is matched to clinical indication); or iterative reconstruction.
[2021-11-24 21:37] LABS: Bilirubin Negative (Negative); Blood Negative (Negative); Clarity Clear (Clear); Glucose >=1000 mg/dL (Negative); Ketones 15 mg/dL (Negative); Leukocyte Esterase Negative (Negative); Nitrite Negative (Negative); Specific Gravity 1.025 (1.005-1.025); Urobilinogen 0.2 EU/dL (Up TO 0.2); pH 5.5 (5-8)
[2021-11-24] MEDS: Normal Saline 1,000 ML 1000 ML IV (21:38)
[2021-11-24 21:45] LABS: Abs Immature Grans 0.06 10^3/uL (0.0-0.06); Absolute Basophil Count 0.04 10^3/uL (0.0-0.2); Absolute Lymphocyte Count 3.47 10^3/uL (1.2-3.4); Absolute Monocyte Count 0.44 10^3/uL (0.1-0.8); Absolute Neutrophil Count 3.62 10^3/uL (1.2-6.7); Basophils % 0.5; Eosinophils % 1.3; HCT 43.3 % (36.0-46.0); HGB 15.1 g/dL (11.2-15.7); Immature Grans % 0.8; Lymphocytes % 44.9; MCH 33.9 pg (27.0-33.0); MCHC 34.9 % (32.0-36.0); MCV 97.3 fL (80-95); MPV 9.5 fL (8.0-11.0); Monocytes % 5.7; Neutrophils % 46.8; Nucleated RBC 0 %; Platelet Count 283 10^3/uL (130-400); RBC 4.45 10^6/uL (3.93-5.22); RDW 12.2 % (11.7-14.6); RDW-SD 43.8 fL; WBC 7.73 10^3/uL (4.4-10.8)
[2021-11-24] MEDS: Omnipaque 350 MG/ML 100 ML BTL IV (21:49)
[2021-11-24] MEDS: Normal Saline Flush 10 ML SYR IVP (21:52)
[2021-11-24 22:04] LABS: Lipase 121 U/L (73-393)
[2021-11-24 22:09] LABS: ALT 127 U/L (14-59); AST 77 U/L (15-37); Alkaline Phosphatase 227 U/L (46-116); Anion Gap 9.7 mmol/L (3-11); BUN 14 mg/dL (7-18); Bilirubin, Total 0.3 mg/dL (0.2-1.0); CO2 26.3 mmol/L (21.0-32.0); CREATININE 0.7 mg/dL (0.55-1.02); Calcium 9.8 mg/dL (8.5-10.1); Chloride 100 mmol/L (98-107); Glucose 315 mg/dL (74-106); Magnesium 2.3 mg/dL (1.8-2.4); Sodium 136 mmol/L (136-145); Total Protein 8.8 g/dL (6.4-8.2)
--- NOTE | 2021-11-24 23:04 | DI.VRAD_ITS ---
PROCEDURE INFORMATION: Exam: CT Abdomen And Pelvis With Contrast Exam date and time: 11/24/2021 9:51 PM Age: 41 years old Clinical indication: Abdominal pain; Localized; Right upper quadrant (ruq); Prior surgery; Surgery date: 6+ months; Surgery type: Tubal ligation; Patient HX: Ruq pain TECHNIQUE: Imaging protocol: Computed tomography of the abdomen and pelvis with contrast. Radiation optimization: All CT scans at this facility use at least one of these dose optimization techniques: automated exposure control; mA and/or kV adjustment per patient size (includes targeted exams where dose is matched to clinical indication); or iterative reconstruction. Contrast material: OMNIPAQUE 350; Contrast volume: 100 ml; Contrast route: INTRAVENOUS (IV); COMPARISON: CT ABDOMEN PELVIS W 08/31/2019 2:31 AM FINDINGS: Liver: Fatty, enlarged liver. Gallbladder and bile ducts: Normal. No calcified stones. No ductal dilation. Pancreas: Normal. No ductal dilation. Spleen: Normal. No splenomegaly. Adrenal glands: Normal. No mass. Kidneys and ureters: Normal. No hydronephrosis. Stomach and bowel: Unremarkable. No obstruction. No mucosal thickening. Appendix: No evidence of appendicitis. Intraperitoneal space: Unremarkable. No free air. No significant fluid collection. Vasculature: Unremarkable. No abdominal aortic aneurysm. Lymph nodes: Unremarkable. No enlarged lymph nodes. Urinary bladder: The bladder is not well distended. Reproductive: Status post tubal ligation. Bones/joints: Unremarkable. No acute fracture. Soft tissues: Multiple soft tissue attenuation nodules are noted in the subcutaneous fat, presumed injection granulomata, unchanged from previous study. IMPRESSION: No acute abnormality is seen to account for symptoms. Dictated and Authenticated by: Lizz Goldberg MD. Ordering:RORY Corado MD
== END 2021-11-24 23:51 | disposition home or self-care (01) ==
PROVIDERS: Emergency Provider Physician Assistant; PCP Nurse Practitioner Family
DX: R10.11 Right upper quadrant pain (principal); R73.9 Hyperglycemia, unspecified; R74.01 Elevation of levels of liver transaminase levels
CPT/HCPCS: 36415; 80053; 81025; 83690; 96360; 99285; 74177; 81003; 83735; 85025; 99284; J3490

== ENCOUNTER 2021-12-22 14:35 | Emergency (ER) | payer MEDICAID, SELFPAY ==
[2021-12-22] VITALS (50 sets, daily range): BP systolic 97–123; BP diastolic 59–90; PULSE 76–117; RESP 11–25; TEMP 36.7; O2SAT 93–100
--- NOTE | 2021-12-22 14:40 | ED.GENADUL_ITS ---
Discharge Plan Disposition Patient Disposition: HOME Condition: Good Discharge Details Clinical Impression: Hyperglycemia, Accidental overdose of insulin, Hypokalemia Primary Care Provider: YURI HARRELL ED Provider: Nan Sidhu Home Meds and New Rx's Prescriptions: Continued gabapentin 300 mg capsule 300 mg PO QHS 0RF pregabalin 200 mg capsule 200 mg PO BID Qty: 180 3RF aripiprazole [Abilify] 30 MG tablet 30 mg PO DAILY Qty: 30 5RF levothyroxine 75 MCG tablet 75 mcg PO DAILY 0RF benztropine 2 mg Tablet 2 mg PO HS 0RF divalproex 250 mg Tablet Extended Release 24 Hr 250 mg PO HS 0RF Bydureon BCise 2 mg/0.85 mL Auto-Injector 2 mg SUBCUT QWEEK 0RF divalproex 500 mg Tablet,Delayed Release (Dr/Ec) 1,000 mg PO BID 0RF docusate sodium 100 mg Tablet 100 mg PO BID 0RF Humalog KwikPen Insulin 200 unit/mL (3 mL) Insulin Pen 120 unit SUBCUT TID 0RF olanzapine 15 mg Tablet 15 mg PO DAILY 0RF Levemir FlexTouch U-100 Insuln 100 unit/mL (3 mL) Insulin Pen 170 unit SUBCUT QHS 0RF ibuprofen 800 mg tablet 800 mg PO TID PRNQty: 20 0RF citalopram [Celexa] 20 mg tablet 20 mg PO DAILY 0RF Label Comments: Take 1 tablet by mouth every morning topiramate [Topamax] 50 mg tablet 50 mg PO BID 0RF Label Comments: Take 1 tablet by mouth twice a day Aristada 882 mg/3.2 mL suspension,extended rel syring 882 mg IM Q4W 0RF Label Comments: take IM every 4 weeks Rx Instructions: every 4 weeks Discharge Instructions Instructions: Diabetic Hyperglycemia (ED) Additional Instructions: Be sure to check your sugar regularly and take your insulin as needed and directed. Too much insulin can lead to low blood sugar which can increase your risk of disability or . Your blood sugar was noted to be elevated today. We monitored your blood sugar over several hours to make sure it did not lower significantly due to your accidental overdose of insulin. Your potassium was noted to be low today. You can supplement this in the diet with foods such as bananas, spinach, tomatoes, garlic, etc. You have been placed on care management's list to arrange for a follow-up appointment with your primary care doctor and with a staff educator to discuss your diabetes medication management. Drink plenty of fluids and get plenty of rest. Follow-up with your primary care doctor in 1 week. Return to the emergency department with any worsening or new concerning symptoms. Discharge Data Discharge Physician: Nan Sidhu Medical Decision Making 1440 -- 41-year-old female with a history of obesity, type 2 diabetes, hypothyroidism, schizophrenia, PTSD who presents for hyperglycemia at home last night with report of taking multiple doses of Humalog and Levemir since yesterday. She reported she took 5 doses of units of Humalog since last night and 2 doses of 80 units of Levemir since last night. She states she did this due to high blood sugar and with no intent to harm herself. EMS reported a glucose of 308. Glucose on arrival here 262. Repeat glucose 10 minutes later 235. Patient is drowsy but able to answer questions appropriately. She was able to eat peanut butter and crackers in the room. Will obtain screening labs, urinalysis and give fluids. Labs reviewed. White blood cell count normal at 7. Glucose 246, with normal bicarb and anion gap. Normal pH and bicarb on VBG. Potassium 2.8, will replete. Urinalysis no ketones but no evidence of infection. 1800 -- Glucose slightly downtrending, now 208. Patient was able to eat a diabetic tray. There are no beds available here and pt is now more alert and feeling better. Will continue to monitor glucose. 2000 --glucose has remained stable within the 240 range over the last couple hours. Discussed with patient that we can obtain 1 more reading but she is declining and states she would rather go home. Patient states she feels much better. Patient was able to ambulate and appears in no acute distress. She was placed on care management's list to arrange for a follow-up appointment with her primary care doctor for reevaluation and for referral to the staff educator. She was advised to check her sugar regularly and to take her insulin as directed. Advised to follow up with the primary care doctor for re- evaluation. Usual and customary return precautions given prior to discharge. Medical Records Medical records reviewed: Yes I reviewed the patient's medical records. Imaging Data Radiologic Study: Radiologist's impression: CT HEAD WO CLINICAL HISTORY: ? confusion, r/o acute disease. ? TECHNIQUE:? Imaging Protocol: Axial computed tomography images with coronal and sagittal reformatted images were created and reviewed COMPARISON:? CT CT FACIAL WO from 09/18/2021 FINDINGS: ?There are no skull fractures nor fluid in the visualized paranasal sinuses. There is no evidence of intracranial hemorrhage, mass effect, or shift of midline structures.? There are no extra-axial fluid collections.? The ventricles are not enlarged or shifted and there is no blood within the ventricular system nor within the basal cisterns. IMPRESSION: No acute intracranial findings on this noninfused CT scan of the brain. XR CHEST 2V PA ? LATERAL CLINICAL HISTORY: ? confusion, r/o acute disease. ? TECHNIQUE:? 2D digital imaging was performed. COMPARISON:? CR XR CHEST 2V PA ? LATERAL from 12/01/2018 FINDINGS: 2 views: Heart size is normal.? The mediastinum is not widened. Lungs are clear.? No infiltrates nor pleural effusions. Lab Data Lab results reviewed: Yes I reviewed the patient's lab results. Labs: Laboratory Tests Range/Units 12/22/21 12/22/21 12/22/21 14:50 14:50 14:50 WBC (4.4-10.8) 10^3/uL 7.83 RBC (3.93-5.22) 10^6/uL 4.60 Hgb (11.2-15.7) g/dL 15.4 Hct (36.0-46.0) % 44.6 MCV (80-95) fL 97 H MCH (27.0-33.0) pg 33.5 H MCHC (32.0-36.0) % 34.5 RDW (11.7-14.6) % 11.9 Plt Count (130-400) 10^3/uL 269 MPV (8.0-11.0) fL 9.8 Immature Gran % 0.6 Neutrophils % 55.9 Lymphocytes % 34.2 Monocytes % 7.8 Eosinophils % 1.1 Basophils % 0.4 Nucleated RBC % (0.0-0.3) % 0.0 Absolute Neutrophils (1.2-6.7) 10^3/uL 4.37 Absolute Lymphocytes (1.2-3.4) 10^3/uL 2.68 Absolute Monocytes (0.1-0.8) 10^3/uL 0.61 Absolute Eosinophils (0.0-0.7) 10^3/uL 0.09 Absolute Basophils (0.0-0.2) 10^3/uL 0.03 VBG pH (7.31-7.41) 7.40 VBG pCO2 (41-51) mmHg 42 VBG pO2 mmHg 46 VBG HCO3 (23-28) mmol/L 26 VBG Total CO2 (24-29) mmol/L 23 L VBG O2 Saturation % 85 VBG Base Excess (-2-3) mmol/L 1 Sodium (136-145) mmol/L 138 Potassium (3.5-5.1) mmol/L 2.8 L* Chloride (98-107) mmol/L 101 Carbon Dioxide (21.0-32.0) mmol/L 27.3 Anion Gap (3-11) mmol/L 9.7 BUN (7-18) mg/dL 12 Creatinine (0.55-1.02) mg/dL 0.7 Estimated GFR/1.73 m2 (mL/min/1.73m2) >= 60.00 Glucose (74-106) mg/dL 246 H Calcium (8.5-10.1) mg/dL 9.0 Total Bilirubin (0.2-1.0) mg/dL 0.3 AST (15-37) U/L 55 H ALT (14-59) U/L 69 H Alkaline Phosphatase (46-116) U/L 205 H Total Protein (6.4-8.2) g/dL 7.9 Albumin (3.4-5.0) g/dL 3.4 Urine Color (Yellow) Urine Clarity (Clear) Urine pH (5-8) Ur Specific [place] (1.005-1.025) Urine Protein (Negative) mg/dL Urine Ketones (Negative) mg/dL Urine Blood (Negative) Urine Nitrite (Negative) Urine Bilirubin (Negative) Urine Urobilinogen (Up TO 0.2) EU/dL Ur Leukocyte Esterase (Negative) Urine RBC (0-2) HPF Urine WBC (0-5) HPF Ur Epithelial Cells (Negative) HPF Urine Crystals (Negative) HPF Urine Bacteria (Negative) HPF Urine Mucus (Negative) Ur Culture Indicated? Urine Glucose (Negative) mg/dL Range/Units 12/22/21 15:12 WBC (4.4-10.8) 10^3/uL RBC (3.93-5.22) 10^6/uL Hgb (11.2-15.7) g/dL Hct (36.0-46.0) % MCV (80-95) fL MCH (27.0-33.0) pg MCHC (32.0-36.0) % RDW (11.7-14.6) % Plt Count (130-400) 10^3/uL MPV (8.0-11.0) fL Immature Gran % Neutrophils % Lymphocytes % Monocytes % Eosinophils % Basophils % Nucleated RBC % (0.0-0.3) % Absolute Neutrophils (1.2-6.7) 10^3/uL Absolute Lymphocytes (1.2-3.4) 10^3/uL Absolute Monocytes (0.1-0.8) 10^3/uL Absolute Eosinophils (0.0-0.7) 10^3/uL Absolute Basophils (0.0-0.2) 10^3/uL VBG pH (7.31-7.41) VBG pCO2 (41-51) mmHg VBG pO2 mmHg VBG HCO3 (23-28) mmol/L VBG Total CO2 (24-29) mmol/L VBG O2 Saturation % VBG Base Excess (-2-3) mmol/L Sodium (136-145) mmol/L Potassium (3.5-5.1) mmol/L Chloride (98-107) mmol/L Carbon Dioxide (21.0-32.0) mmol/L Anion Gap (3-11) mmol/L BUN (7-18) mg/dL Creatinine (0.55-1.02) mg/dL Estimated GFR/1.73 m2 (mL/min/1.73m2) Glucose (74-106) mg/dL Calcium (8.5-10.1) mg/dL Total Bilirubin (0.2-1.0) mg/dL AST (15-37) U/L ALT (14-59) U/L Alkaline Phosphatase (46-116) U/L Total Protein (6.4-8.2) g/dL Albumin (3.4-5.0) g/dL Urine Color (Yellow) Yellow Urine Clarity (Clear) Sl Cloudy Urine pH (5-8) 7.0 Ur Specific [place] (1.005-1.025) 1.025 Urine Protein (Negative) mg/dL Negative Urine Ketones (Negative) mg/dL 40 H Urine Blood (Negative) Negative Urine Nitrite (Negative) Negative Urine Bilirubin (Negative) Negative Urine Urobilinogen (Up TO 0.2) EU/dL 0.2 Ur Leukocyte Esterase (Negative) Trace H Urine RBC (0-2) HPF 0-2 Urine WBC (0-5) HPF 5-10 Ur Epithelial Cells (Negative) HPF Many Urine Crystals (Negative) HPF Negative Urine Bacteria (Negative) HPF Moderate Urine Mucus (Negative) Moderate Ur Culture Indicated? No/Sq. Contamination Urine Glucose (Negative) mg/dL 500 H HPI General Mode of arrival: ambulatory . Date/Time Provider Initiated Documentation: 12/22/21 14:38 . Limitations to Documentation: no limitations . Information obtained by: patient . HPI Narrative: Patient is a 41-year-old female with a history of obesity, type 2 diabetes, schizophrenia, PTSD and hypothyroidism who presents for hyperglycemia since last night with a report of taking multiple doses of Humalog and Levemir since last night. She states she took 5 doses of 6 units of Humalog and 2 doses of 80 units of Levemir since last night. She states her last dose of insulin was Humalog at noon today. EMS reported a glucose of 308 prior to arrival. Patient states she has felt tired and drowsy since last night and saw her neighbor today who was concerned about her fatigue and weakness and called EMS. She denies any fever, cough, chest pain, abdominal pain, vomiting, diarrhea, urinary symptoms or headache. Related Data Home Medications Medication Instructions Recorded Confirmed levothyroxine 75 mcg tablet 75 mcg PO DAILY 03/15/16 11/07/21 aripiprazole 30 mg tablet (Abilify) 30 mg PO DAILY #30 tab-cap 11/29/17 11/07/21 gabapentin 300 mg capsule 300 mg PO QHS cap 10/25/18 11/07/21 aripiprazole lauroxil 882 mg/3.2 882 mg IM Q4W 07/12/21 11/07/21 mL suspension, ext.rel. IM syringe (Aristada) citalopram 20 mg tablet (Celexa) 20 mg PO DAILY 07/12/21 11/07/21 topiramate 50 mg tablet (Topamax) 50 mg PO BID 07/12/21 11/07/21 benztropine 2 mg tablet 2 mg PO HS 09/17/21 11/07/21 divalproex 250 mg tablet,extended 250 mg PO HS 09/17/21 11/07/21 release 24 hr divalproex 500 mg tablet,delayed 1,000 mg PO BID 09/17/21 11/07/21 release docusate sodium 100 mg tablet 100 mg PO BID 09/17/21 11/07/21 exenatide microspheres 2 mg/0.85 2 mg SUBCUT QWEEK 09/17/21 11/07/21 mL subcutaneous auto-injector (Bydureon BCise) insulin detemir U-100 100 unit/mL 170 unit SUBCUT QHS 09/17/21 11/07/21 (3 mL) subcutaneous pen (Levemir FlexTouch U-100 Insulin) insulin lispro 200 unit/mL (3 mL) 120 unit SUBCUT TID 09/17/21 11/07/21 subcutaneous pen (Humalog KwikPen U-200 Insulin) olanzapine 15 mg tablet 15 mg PO DAILY 09/17/21 11/07/21 pregabalin 200 mg capsule 200 mg PO BID #180 cap 10/06/21 11/07/21 ibuprofen 800 mg tablet 800 mg PO TID PRN #20 tab 11/07/21 Previous Rx's Medication Instructions Recorded aripiprazole 30 mg tablet (Abilify) 30 mg PO DAILY #30 tab-cap 11/29/17 pregabalin 200 mg capsule 200 mg PO BID #180 cap 10/06/21 ibuprofen 800 mg tablet 800 mg PO TID PRN #20 tab 11/07/21 Allergies Allergy/AdvReac Type Severity Reaction Status Date / Time codeine Allergy Mild Unverified 11/24/21 20:42 General Stated Complaint: GenMedical CECILIA: 3 Review of Systems All systems reviewed & are unremarkable except as noted in HPI and below Constitutional Constitutional: Denies chills, Denies excessive sweating, Reports fatigue, Denies fever(s), Reports weakness and Denies weight loss Eyes Eyes: Reports system reviewed and no additional complaints, except as documented and Denies blurry vision ENT Ears, Nose, Mouth, and Throat: Denies vertigo, Denies dizziness, Denies otalgia, Denies nasal congestion, Denies sore throat and Denies throat swelling Cardiovascular Cardiovascular: Denies chest pain, Denies syncope, Denies rapid heart rate and Denies dyspnea Respiratory Respiratory: Denies chest congestion, Denies cough, Denies pain on inspiration and Denies dyspnea Gastrointestinal Gastrointestinal: Denies abdominal pain, Denies diarrhea and Denies vomiting Genitourinary Genitourinary: Denies hematuria, Denies dysuria and Denies flank pain Musculoskeletal Musculoskeletal: Denies back pain and Denies joint swelling Integumentary/Breasts Skin/Breast: Denies lesions and Denies rash Neurologic Neurologic: Denies behavioral changes, Denies confusion, Denies vertigo, Denies dizziness, Denies syncope, Denies localized weakness and Reports weakness Psychiatric Psychiatric: Denies behavioral changes, Denies confusion and Denies depression Endocrine Endocrine: Denies excessive sweating and Reports fatigue Hematologic/Lymphatic Hematologic/Lymphatic: Denies easy bruising and Denies lymphadenopathy Allergic/Immunologic Allergic/Immunologic: Denies throat swelling PFSH All Active Problems (Updated 12/22/21 @ 20:12 by Nan Sidhu DO) Abdominal pain (Acute) Blood glucose elevated (Acute) Abnormal transaminases (Acute) Hyperglycemia (Acute) Accidental overdose of insulin (Acute) Hypokalemia (Acute) Abnormal vaginal bleeding (Acute) Non compliance w medication regimen (Acute) Blood glucose elevated (Acute) Possible exposure to STD (Acute) Vaginitis (Acute) Yeast dermatitis (Acute) Erythema (Acute) Deviated nasal septum (Chronic) Trigeminal neuralgia of left side of face (Acute 01/03/18) Drug overdose, intentional (Acute) Schizophrenia (Chronic) Suicidal ideation (Acute) Diabetes mellitus type 2 in obese (Acute) History of hypothyroidism (Chronic) Medical History (Updated 12/22/21 @ 20:12 by Nan Sidhu DO) Anovulatory bleeding H/O suicide attempt RLS (restless legs syndrome) Schizoaffective disorder Type 2 diabetes mellitus Surgical History H/O pilonidal cyst Ligation of fallopian tube S/p breast implant removal Sep 2019 S/P breast implant, left S/P foot surgery Family History Mother Diabetes Father Heart disease Social History Smoking/Tobacco Use Status: Current-Occasional Tobacco Type: cigars Smoking risk assessment performed?: Yes Alcohol Intake: never Drug use: Never Substance use type: does not use Number of Children: 2 current occupation: Disabled Seatbelt use: always Do you feel safe at home: Yes Do you feel safe in your relationship?: Yes Female Reproductive History Menstrual control method: permanent sterilization History History 2 Para 2 Hx # Term Pregnancies Multiple births Hx # Pregnancies Ectopic pregnancies AB induced Hx Number of Living Children AB spontaneous Exam Const General: cooperative and other (Drowsy but able to answer questions appropriately.) Orientation: alert, awake and oriented x3 HENMT Head: normal to inspection Ears: hearing grossly normal bilaterally, external ears normal and TM's normal bilaterally General nose exam: external nose normal Face and sinus: normal facial exam Mouth: oral mucosae normal Teeth and gingiva: dentition normal Throat: posterior oropharynx normal Eyes General: appearance normal, both eyes and all related structures Eyelids: eyelids normal Pupils: PERRL EOM: EOM intact bilaterally Neck Neck: normal visual inspection Lymphatic: no lymphadenopathy noted Chest Chest: normal inspection of the chest Resp Effort & Inspection: normal respiratory effort and able to speak in complete sentences Auscultation: clear to auscultation bilaterally Cardio Rate: tachycardic Rhythm: regular rhythm GI Inspection: normal to inspection Palpation: soft, not firm, no guarding, no hepatosplenomegaly, no masses and nontender Auscultation: normal bowel sounds Back/Spine/Pelvis Back: no CVA tenderness Skin General skin exam: no rashes or lesions noted Neuro General: patient alert, patient awake, patient oriented x3, moves all extremiti es, no meningeal signs and no focal motor deficits Cognition: normal cognition Speech: speech normal Gait: normal gait Motor: muscle tone normal throughout Sensory Exam: no sensory deficits noted Extrem General: normal to inspection, full ROM, capillary refill normal and no edema Psych Appearance: grossly normal Mental Status: mental status grossly normal Speech and Movement: speech and movement normal Affect: normal affect Thought Process: normal
[2021-12-22 14:58] LABS: BE (Venous) 1 mmol/L (-2-3); HCO3 (Venous) 26 mmol/L (23-28); O2 Sat (Venous) 85 %; TCO2 (Venous) 23 mmol/L (24-29); pCO2 (Venous) 42 mmHg (41-51); pO2 (Venous) 46 mmHg
[2021-12-22 15:00] LABS: Abs Immature Grans 0.05 10^3/uL (0.0-0.06); Absolute Basophil Count 0.03 10^3/uL (0.0-0.2); Absolute Eosinophil Count 0.09 10^3/uL (0.0-0.7); Absolute Lymphocyte Count 2.68 10^3/uL (1.2-3.4); Absolute Monocyte Count 0.61 10^3/uL (0.1-0.8); Absolute Neutrophil Count 4.37 10^3/uL (1.2-6.7); Basophils % 0.4; Eosinophils % 1.1; HCT 44.6 % (36.0-46.0); HGB 15.4 g/dL (11.2-15.7); Immature Grans % 0.6; Lymphocytes % 34.2; MCH 33.5 pg (27.0-33.0); MCHC 34.5 % (32.0-36.0); MCV 97 fL (80-95); MPV 9.8 fL (8.0-11.0); Monocytes % 7.8; Neutrophils % 55.9; Platelet Count 269 10^3/uL (130-400); RDW 11.9 % (11.7-14.6); RDW-SD 42.8 fL; WBC 7.83 10^3/uL (4.4-10.8)
[2021-12-22 15:11] LABS: ALT 69 U/L (14-59); AST 55 U/L (15-37); Albumin 3.4 g/dL (3.4-5.0); Alkaline Phosphatase 205 U/L (46-116); Anion Gap 9.7 mmol/L (3-11); BUN 12 mg/dL (7-18); Bilirubin, Total 0.3 mg/dL (0.2-1.0); CO2 27.3 mmol/L (21.0-32.0); CREATININE 0.7 mg/dL (0.55-1.02); Chloride 101 mmol/L (98-107); Glucose 246 mg/dL (74-106); Sodium 138 mmol/L (136-145); Total Protein 7.9 g/dL (6.4-8.2)
[2021-12-22 15:12] LABS: Potassium 2.8 mmol/L (3.5-5.1)
--- NOTE | 2021-12-22 15:15 | DI.RAD_ITS ---
Exam(s) XR CHEST 2V PA LATERAL EXAM: XR CHEST 2V PA LATERAL CLINICAL HISTORY: confusion, r/o acute disease. TECHNIQUE: 2D digital imaging was performed. COMPARISON: CR XR CHEST 2V PA LATERAL from 12/01/2018 FINDINGS: 2 views: Heart size is normal. The mediastinum is not widened. Lungs are clear. No infiltrates nor pleural effusions. IMPRESSION: No acute pulmonary findings. DATA REPOSITORY: RADIATION DOSE DELIVERED:
--- NOTE | 2021-12-22 15:15 | DI.CT_ITS ---
Exam(s) CT HEAD WO EXAM: CT HEAD WO CLINICAL HISTORY: confusion, r/o acute disease. TECHNIQUE: Imaging Protocol: Axial computed tomography images with coronal and sagittal reformatted images were created and reviewed COMPARISON: CT CT FACIAL WO from 09/18/2021 FINDINGS: There are no skull fractures nor fluid in the visualized paranasal sinuses. There is no evidence of intracranial hemorrhage, mass effect, or shift of midline structures. There are no extra-axial fluid collections. The ventricles are not enlarged or shifted and there is no blo od within the ventricular system nor within the basal cisterns. IMPRESSION: No acute intracranial findings on this noninfused CT scan of the brain. RADIATION DOSE DELIVERED: 766.3mGy.cm Total DLP DATA REPOSITORY: All CT scans at this facility are submitted to the National Radiology Data Registry (NRDR) Dose Index Registry (DIR) with the [employer] ([employer]). RADIATION OPTIMIZATION: All CT scans at this facility use at least one of these dose optimization te chniques: automated exposure control; mA and/or kV adjustment per patient size (includes targeted exa ms where dose is matched to clinical indication); or iterative reconstruction.
[2021-12-22 15:22] LABS: Bilirubin Negative (Negative); Blood Negative (Negative); Clarity Sl Cloudy (Clear); Glucose 500 mg/dL (Negative); Ketones 40 mg/dL (Negative); Leukocyte Esterase Trace (Negative); Nitrite Negative (Negative); Specific Gravity 1.025 (1.005-1.025); Urobilinogen 0.2 EU/dL (Up TO 0.2)
[2021-12-22] MEDS: POTASSIUM CHLORIDE 20 MEQ/100 ML BAG 50 MEQ IVPB (15:22)
[2021-12-22] MEDS: Potassium Chloride 20 MEQ TABCR 40 MEQ PO (15:22)
[2021-12-22] MEDS: Normal Saline 1,000 ML 1000 ML IV (15:38)
[2021-12-22 15:48] LABS: Bacteria Moderate HPF (Negative); C & S Indicated? No/Sq. Contamination; Crystals Negative HPF (Negative); Epithelial Cells Many HPF (Negative); Mucus Moderate (Negative); RBC 0-2 HPF (0-2)
== END 2021-12-22 18:46 | disposition home or self-care (01) ==
PROVIDERS: Emergency Provider Physician Assistant; PCP Nurse Practitioner Family
DX: E11.65 Type 2 diabetes mellitus with hyperglycemia (principal); T38.3X1A Poisoning by insulin and oral hypoglycemic [antidiabetic] drugs, accidental (unintentional), initial encounter; E87.6 Hypokalemia; R41.0 Disorientation, unspecified
CPT/HCPCS: 36415; 36416; 80053; 82805; 82962; 96361; 96365; 96366; 99284; 70450; 71046; 81003; 81015; 85025; J3480

== ENCOUNTER 2022-01-05 02:37 | Outpatient (CLI) | payer MEDICAID, SELFPAY | END 2022-01-05 02:38 | disposition home or self-care (01) | LOC: LBO 02:37 | PROVIDERS: PCP Nurse Practitioner Family; Visit Provider Psychiatry & Neurology Psychiatry ==

== ENCOUNTER 2022-01-12 12:57 | Emergency (ER) | payer MEDICAID, SELFPAY ==
[2022-01-12 13:09] VITALS: BP 146/85; PULSE 102; RESP 16; TEMP 36.2; O2SAT 97
[2022-01-12] MEDS: Cyclobenzaprine 10 MG TAB 20 MG PO (13:50)
[2022-01-12] MEDS: Ondansetron O.D.T. 4 MG TABEF PO (13:51)
[2022-01-12 14:00] LABS: Abs Immature Grans 0.03 10^3/uL (0.0-0.06); Absolute Basophil Count 0.04 10^3/uL (0.0-0.2); Absolute Eosinophil Count 0.07 10^3/uL (0.0-0.7); Absolute Lymphocyte Count 2.84 10^3/uL (1.2-3.4); Absolute Monocyte Count 0.39 10^3/uL (0.1-0.8); Absolute Neutrophil Count 4.33 10^3/uL (1.2-6.7); Basophils % 0.5; Eosinophils % 0.9; HCT 42.5 % (36.0-46.0); HGB 14.7 g/dL (11.2-15.7); Immature Grans % 0.4; Lymphocytes % 36.9; MCH 33.6 pg (27.0-33.0); MCHC 34.6 % (32.0-36.0); MCV 97 fL (80-95); MPV 9.6 fL (8.0-11.0); Monocytes % 5.1; Neutrophils % 56.2; Platelet Count 262 10^3/uL (130-400); RBC 4.37 10^6/uL (3.93-5.22); RDW 11.6 % (11.7-14.6); RDW-SD 41.8 fL
[2022-01-12 14:06] LABS: Bilirubin Negative (Negative); Blood Negative (Negative); Clarity Clear (Clear); Glucose >=1000 mg/dL (Negative); Ketones 15 mg/dL (Negative); Leukocyte Esterase Negative (Negative); Nitrite Negative (Negative); Specific Gravity 1.015 (1.005-1.025); Urobilinogen 0.2 EU/dL (Up TO 0.2)
[2022-01-12 14:19] LABS: ALT 88 U/L (14-59); Albumin 3.5 g/dL (3.4-5.0); Alkaline Phosphatase 317 U/L (46-116); BUN 14 mg/dL (7-18); Bilirubin, Total 0.2 mg/dL (0.2-1.0); CREATININE 0.7 mg/dL (0.55-1.02); Calcium 8.7 mg/dL (8.5-10.1); Chloride 95 mmol/L (98-107); Lipase 119 U/L (73-393); Potassium 3.9 mmol/L (3.5-5.1); Sodium 131 mmol/L (136-145); Total Protein 8.3 g/dL (6.4-8.2)
[2022-01-12 14:26] LABS: Glucose 514 mg/dL (74-106)
[2022-01-12 14:36] LABS: AST 76 U/L (15-37)
[2022-01-12] MEDS: Insulin REGULAR-Human 100 UNITS/ML UNIT 12 UNITS SC (14:42)
[2022-01-12] MEDS: Normal Saline 1,000 ML 1000 ML IV (14:51)
--- NOTE | 2022-01-12 15:41 | W.ED.GENAD ---
Discharge Plan Disposition Patient Disposition: HOME Condition: Serious Discharge Details Clinical Impression: Hyperglycemia, Abdominal pain Primary Care Provider: YURI HARRELL ED Provider: Marilee Killian Home Meds and New Rx's Prescriptions: Continued gabapentin 300 mg capsule 300 mg PO QHS 0RF pregabalin 200 mg capsule 200 mg PO BID Qty: 180 3RF aripiprazole [Abilify] 30 MG tablet 30 mg PO DAILY Qty: 30 5RF levothyroxine 75 MCG tablet 75 mcg PO DAILY 0RF benztropine 2 mg Tablet 2 mg PO HS 0RF divalproex 250 mg Tablet Extended Release 24 Hr 250 mg PO HS 0RF Bydureon BCise 2 mg/0.85 mL Auto-Injector 2 mg SUBCUT QWEEK 0RF divalproex 500 mg Tablet,Delayed Release (Dr/Ec) 1,000 mg PO BID 0RF docusate sodium 100 mg Tablet 100 mg PO BID 0RF Humalog KwikPen Insulin 200 unit/mL (3 mL) Insulin Pen 120 unit SUBCUT TID 0RF olanzapine 15 mg Tablet 15 mg PO DAILY 0RF Levemir FlexTouch U-100 Insuln 100 unit/mL (3 mL) Insulin Pen 170 unit SUBCUT QHS 0RF ibuprofen 800 mg tablet 800 mg PO TID PRNQty: 20 0RF citalopram [Celexa] 20 mg tablet 20 mg PO DAILY 0RF Label Comments: Take 1 tablet by mouth every morning topiramate [Topamax] 50 mg tablet 50 mg PO BID 0RF Label Comments: Take 1 tablet by mouth twice a day Aristada 882 mg/3.2 mL suspension,extended rel syring 882 mg IM Q4W 0RF Label Comments: take IM every 4 weeks Rx Instructions: every 4 weeks Discharge Instructions Instructions: Abdominal Pain (ED), Diabetic Hyperglycemia (ED) Additional Instructions: Please check your blood sugar at least once daily but the recommended regimen is 3 times a day prior to meals Please follow-up closely with either your diabetes doctor or your primary care physician as you may need adjustment of your insulin Received 12 units of insulin in the emergency department, approximately 245, you will need to check your blood sugar when you arrive home and do not inject any more insulin until you confirm that your blood sugars are within normal limits Please follow-up with your doctor and return earlier should you have new or worsening complaints Referrals: YURI HARRELL NP [Primary Care Provider] - Discharge Data Discharge Date/Time-TO BE ENTERED AT DEPARTURE: 01/12/22 15:51 Medical Decision Making Patient is alert and oriented but does not seem very insightful regarding her medical history or care We had a long discussion about taking her blood sugar several times a day and following up with primary care physician She will likely need help with med management There is no evidence of diabetic ketoacidosis She received 12 units of subcutaneous insulin and 1 L of IV hydration, repeat blood sugar was 372 We discussed diet changes Her abdomen is nontender on reassessment and she had a CT scan approximately a month prior to assessment today She does not appear to have a surgical abdomen and does not appear to be any acutely to ordering imaging at this time as she is feeling symptomatically improved Discharged home in stable condition with stable vitals, Assessment return should she have new or worsening complaints She will need close outpatient reassessment and is discharged home in stable condition with stable vital Medical Records Medical records reviewed: Yes I reviewed the patient's medical records. Lab Data Lab results reviewed: Yes I reviewed the patient's lab results. HPI General Date/Time Provider Initiated Documentation: 01/12/22 13:24. HPI Narrative: This 41-year-old female with history of diabetes and schizoaffective disorder presents with report of spasms in her abdomen that came on at approximately 1 PM while she was shopping. She denies any chest pain or shortness of breath. She denies any dizziness or weakness. She has a history of insulin-dependent diabetes and does not reportedly check her blood sugar. She denies any nausea or vomiting. She denies any diaphoresis. She denies any chance of . She denies any fever or chills. She denies any cough. She denies any exacerbating or alleviating factors. She describes the pain as a cramping sensation. Denies any trauma to the affected area. Denies diarrhea. Last meal was this morning when she had vomiting and abdominal reportedly. Related Data Home Medications Medication Instructions Recorded Confirmed levothyroxine 75 mcg tablet 75 mcg PO DAILY 03/15/16 01/12/22 aripiprazole 30 mg tablet (Abilify) 30 mg PO DAILY #30 tab-cap 11/29/17 01/12/22 gabapentin 300 mg capsule 300 mg PO QHS cap 10/25/18 01/12/22 aripiprazole lauroxil 882 mg/3.2 882 mg IM Q4W 07/12/21 01/12/22 mL suspension, ext.rel. IM syringe (Aristada) citalopram 20 mg tablet (Celexa) 20 mg PO DAILY 07/12/21 01/12/22 topiramate 50 mg tablet (Topamax) 50 mg PO BID 07/12/21 01/12/22 benztropine 2 mg tablet 2 mg PO HS 09/17/21 01/12/22 divalproex 250 mg tablet,extended 250 mg PO HS 09/17/21 01/12/22 release 24 hr divalproex 500 mg tablet,delayed 1,000 mg PO BID 09/17/21 01/12/22 release docusate sodium 100 mg tablet 100 mg PO BID 09/17/21 01/12/22 exenatide microspheres 2 mg/0.85 2 mg SUBCUT QWEEK 09/17/21 01/12/22 mL subcutaneous auto-injector (Bydureon BCise) insulin detemir U-100 100 unit/mL 170 unit SUBCUT QHS 09/17/21 01/12/22 (3 mL) subcutaneous pen (Levemir FlexTouch U-100 Insulin) insulin lispro 200 unit/mL (3 mL) 120 unit SUBCUT TID 09/17/21 01/12/22 subcutaneous pen (Humalog KwikPen U-200 Insulin) olanzapine 15 mg tablet 15 mg PO DAILY 09/17/21 01/12/22 pregabalin 200 mg capsule 200 mg PO BID #180 cap 10/06/21 01/12/22 ibuprofen 800 mg tablet 800 mg PO TID PRN #20 tab 11/07/21 Previous Rx's Medication Instructions Recorded aripiprazole 30 mg tablet (Abilify) 30 mg PO DAILY #30 tab-cap 11/29/17 pregabalin 200 mg capsule 200 mg PO BID #180 cap 10/06/21 ibuprofen 800 mg tablet 800 mg PO TID PRN #20 tab 11/07/21 Allergies Allergy/AdvReac Type Severity Reaction Status Date / Time codeine Allergy Mild Unverified 01/12/22 13:13 General Stated Complaint: Abd Prob CECILIA: 3 Review of Systems All systems reviewed & are unremarkable except as noted in HPI and below PFSH All Active Problems (Updated 01/12/22 @ 15:45 by CECI Varela) Hyperglycemia (Acute) Accidental overdose of insulin (Acute) Hypokalemia (Acute) Hyperglycemia (Acute) Abdominal pain (Acute) Abnormal vaginal bleeding (Acute) Non compliance w medication regimen (Acute) Blood glucose elevated (Acute) Possible exposure to STD (Acute) Vaginitis (Acute) Yeast dermatitis (Acute) Erythema (Acute) Deviated nasal septum (Chronic) Trigeminal neuralgia of left side of face (Acute 01/03/18) Drug overdose, intentional (Acute) Schizophrenia (Chronic) Suicidal ideation (Acute) Diabetes mellitus type 2 in obese (Acute) History of hypothyroidism (Chronic) Medical History (Updated 01/12/22 @ 15:45 by CECI Varela) Anovulatory bleeding H/O suicide attempt RLS (restless legs syndrome) Schizoaffective disorder Type 2 diabetes mellitus Surgical History H/O pilonidal cyst Ligation of fallopian tube S/p breast implant removal Sep 2019 S/P breast implant, left S/P foot surgery Family History Mother Diabetes Father Heart disease Social History Smoking/Tobacco Use Status: Current-Occasional Tobacco Type: cigars Smoking risk assessment performed?: Yes Alcohol Intake: never Drug use: Never Substance use type: does not use Number of Children: 2 current occupation: Disabled Seatbelt use: always Do you feel safe at home: Yes Do you feel safe in your relationship?: Yes Female Reproductive History Menstrual control method: permanent sterilization History History 2 Para 2 Hx # Term Pregnancies Multiple births Hx # Pregnancies Ectopic pregnancies AB induced Hx Number of Living Children AB spontaneous Exam Const General: cooperative, comfortable and no acute distress HENMT Head: normal to inspection Eyes General: appearance normal, both eyes and all related structures Resp Effort & Inspection: normal respiratory effort Auscultation: clear to auscultation bilaterally Cardio Rate: regular rate GI Other: Mild tenderness around umbilicus, no lower abdominal tenderness, no McBurney's point tenderness, no CVA tenderness, no abdominal bruit or pulsatile mass ,, No CVA tenderness Skin General skin exam: no rashes or lesions noted Neuro General: patient alert and patient oriented x3 Course Vital Signs Vital signs: Vital Signs Temperature 36.2 C L 01/12/22 13:09 Pulse 102 H 01/12/22 13:09 Respiratory Rate 16 01/12/22 13:09 Blood Pressure 146/85 H 01/12/22 13:09 Pulse Oximetry 97 01/12/22 13:09 Temperature 36.2 C L 01/12/22 13:09 Pulse 102 H 01/12/22 13:09 Respiratory Rate 16 01/12/22 13:09 Respiratory Effort 01/12/22 13:16 Blood Pressure 146/85 H 01/12/22 13:09 Pulse Oximetry 97 01/12/22 13:09 Pain Level 3 01/12/22 13:16 Lab/Test Results Lab/Test Results: Laboratory Tests Range/Units 01/12/22 01/12/22 01/12/22 13:49 13:49 14:00 WBC (4.4-10.8) 10^3/uL 7.70 RBC (3.93-5.22) 10^6/uL 4.37 Hgb (11.2-15.7) g/dL 14.7 Hct (36.0-46.0) % 42.5 MCV (80-95) fL 97 H MCH (27.0-33.0) pg 33.6 H MCHC (32.0-36.0) % 34.6 RDW (11.7-14.6) % 11.6 L Plt Count (130-400) 10^3/uL 262 MPV (8.0-11.0) fL 9.6 Immature Gran % 0.4 Neutrophils % 56.2 Lymphocytes % 36.9 Monocytes % 5.1 Eosinophils % 0.9 Basophils % 0.5 Nucleated RBC % (0.0-0.3) % 0.0 Absolute Neutrophils (1.2-6.7) 10^3/uL 4.33 Absolute Lymphocytes (1.2-3.4) 10^3/uL 2.84 Absolute Monocytes (0.1-0.8) 10^3/uL 0.39 Absolute Eosinophils (0.0-0.7) 10^3/uL 0.07 Absolute Basophils (0.0-0.2) 10^3/uL 0.04 Sodium (136-145) mmol/L 131 L Potassium (3.5-5.1) mmol/L 3.9 Chloride (98-107) mmol/L 95 L Carbon Dioxide (21.0-32.0) mmol/L 25.0 Anion Gap (3-11) mmol/L 11.0 BUN (7-18) mg/dL 14 Creatinine (0.55-1.02) mg/dL 0.7 Estimated GFR/1.73 m2 (mL/min/1.73m2) >= 60.00 Glucose (74-106) mg/dL 514 H* Calcium (8.5-10.1) mg/dL 8.7 Total Bilirubin (0.2-1.0) mg/dL 0.2 AST (15-37) U/L 76 H ALT (14-59) U/L 88 H Alkaline Phosphatase (46-116) U/L 317 H Total Protein (6.4-8.2) g/dL 8.3 H Albumin (3.4-5.0) g/dL 3.5 Lipase (73-393) U/L 119 Urine Color (Yellow) Yellow Urine Clarity (Clear) Clear Urine pH (5-8) 7.0 Ur Specific [place] (1.005-1.025) 1.015 Urine Protein (Negative) mg/dL Negative Urine Ketones (Negative) mg/dL 15 H Urine Blood (Negative) Negative Urine Nitrite (Negative) Negative Urine Bilirubin (Negative) Negative Urine Urobilinogen (Up TO 0.2) EU/dL 0.2 Ur Leukocyte Esterase (Negative) Negative Urine Glucose (Negative) mg/dL >=1000 H POC- Test(urine) Negative
[2022-01-12 15:42] VITALS: BP 105/72; PULSE 104; TEMP 37.2; O2SAT 95
[2022-01-12 15:50] VITALS: PULSE 101; RESP 16; O2SAT 98
== END 2022-01-12 15:51 | disposition home or self-care (01) ==
PROVIDERS: Emergency Provider Physician Assistant; PCP Nurse Practitioner Family
DX: E11.65 Type 2 diabetes mellitus with hyperglycemia (principal); R10.9 Unspecified abdominal pain
CPT/HCPCS: 36415; 36416; 80053; 81025; 82962; 83690; 96361; 96372; 99284; 81003; 85025

== ENCOUNTER → 2022-01-29 00:56 | Outpatient (CLI) | payer MEDICAID, SELFPAY ==
--- NOTE | 2022-01-29 | DI.US_ITS ---
Exam(s) US ABDOMEN EXAM: US ABDOMEN CLINICAL HISTORY: ABDOMINAL DISCOMFORT, R10.9, NONALCOHOLIC STEATOHEPATITIS, K75.81 TECHNIQUE: Ultrasound abdomen performed using standard protocol. COMPARISON: CT CT ABDOMEN PELVIS W from 11/24/2021 FINDINGS: LIVER: Enlarged at 25 cm in length. The liver measured 28 cm in length on prior CT. Increased liver echogenicity consistent with hepatic steatosis. No masses.. No focal liver lesions are seen.. GALLBLADDER: Somewhat contracted. No evidence of cholelithiasis. No evidence of wall thickening. No pericholecystic fluid identified. ZELAYA'S SIGN: Negative. BILIARY SYSTEM: No intrahepatic or extrahepatic biliary ductal dilation. KIDNEYS: Kidneys are symmetric in size. No evidence of renal calculi. No question mild bilateral hydr onephrosis. No renal mass or cyst identified. PANCREAS: Normal where visualized. SPLEEN: Not enlarged. ABDOMINAL AORTA AND IVC: Visualized portions normal caliber. ASCITES: None seen. IMPRESSION: Enlarged liver. Hepatic steatosis. Question of mild bilateral hydronephrosis. DATA REPOSITORY:
== END ==
PROVIDERS: PCP Nurse Practitioner Family; Visit Provider Family Medicine
DX: R10.84 Generalized abdominal pain (principal); K75.81 Nonalcoholic steatohepatitis (NASH); R16.0 Hepatomegaly, not elsewhere classified
CPT/HCPCS: 76700

== ENCOUNTER 2022-03-10 22:04 | Emergency (ER) | payer MEDICAID, SELFPAY ==
--- NOTE | 2022-03-10 22:00 | RT.EKG_ITS ---
APPROVED REPORT Exam: Resting ECG Reason for Exam: shortness of breath Patient Location: E HR:109 bpm ECG Measurements Heart Rate 109 AXIS OH 145 P 59 QRSd 81 QRS 34 QT 379 T 26 QTc 510 Conclusion Sinus tachycardia...rate> 99 Probable left atrial enlargement...P >50mS, <-0.10mV V1
--- NOTE | 2022-03-10 22:00 | DI.RAD_ITS ---
Exam(s) XR PORTABLE CHEST AP EXAM: XR PORTABLE CHEST AP CLINICAL HISTORY: shortness of breath. TECHNIQUE: 2D digital imaging was performed. COMPARISON: CR XR CHEST 2V PA LATERAL from 12/22/2021 FINDINGS: Single AP portable view. Heart size is upper normal. The mediastinum is not widened. Lungs are clear. No infiltrates nor obvious pleural effusions. IMPRESSION: No acute pulmonary findings on this single AP portable view of the chest. DATA REPOSITORY: RADIATION DOSE DELIVERED: All CT scans at this facility use at least one of these dose optimization techniques: automated exposure control; mA and/or kV adjustment per patient size (includes targeted e xams where dose is matched to clinical indication); or iterative reconstruction.
[2022-03-10 22:09] VITALS: BP 134/81; PULSE 119; RESP 18; TEMP 36.8; O2SAT 98
[2022-03-10 22:14] VITALS: RESP 18
[2022-03-10 22:50] LABS: Absolute Basophil Count 0.03 10^3/uL (0.0-0.2); Absolute Eosinophil Count 0.09 10^3/uL (0.0-0.7); Absolute Lymphocyte Count 3.24 10^3/uL (1.2-3.4); Absolute Monocyte Count 0.57 10^3/uL (0.1-0.8); Absolute Neutrophil Count 4.23 10^3/uL (1.2-6.7); Basophils % 0.4; Eosinophils % 1.1; HCT 41.5 % (36.0-46.0); HGB 14.6 g/dL (11.2-15.7); Immature Grans % 1.2; Lymphocytes % 39.2; MCH 33.3 pg (27.0-33.0); MCHC 35.2 % (32.0-36.0); MCV 95 fL (80-95); MPV 9.9 fL (8.0-11.0); Monocytes % 6.9; Neutrophils % 51.2; Platelet Count 224 10^3/uL (130-400); RBC 4.39 10^6/uL (3.93-5.22); RDW 11.8 % (11.7-14.6); RDW-SD 40.9 fL; WBC 8.26 10^3/uL (4.4-10.8)
--- NOTE | 2022-03-10 22:55 | NUR.NOTE ---
Nursing Note: Patient is refusing COVID testing.
[2022-03-10 23:13] LABS: ALT 71 U/L (14-59); Albumin 3.4 g/dL (3.4-5.0); Alkaline Phosphatase 229 U/L (46-116); Anion Gap 10.5 mmol/L (3-11); BUN 12 mg/dL (7-18); Bilirubin, Total 0.3 mg/dL (0.2-1.0); CO2 27.5 mmol/L (21.0-32.0); CREATININE 0.7 mg/dL (0.55-1.02); Calcium 9.3 mg/dL (8.5-10.1); Chloride 97 mmol/L (98-107); Glucose 216 mg/dL (74-106); Sodium 135 mmol/L (136-145); TSH (W/Ref FT4) 2.35 uIU/mL (0.36-3.74); Total Protein 7.5 g/dL (6.4-8.2); Troponin I < 50 ng/L (<or=60)
[2022-03-10 23:14] LABS: Potassium 2.8 mmol/L (3.5-5.1)
[2022-03-10 23:15] LABS: Magnesium 1.9 mg/dL (1.8-2.4)
--- NOTE | 2022-03-10 23:15 | ED.GENADUL_ITS ---
Discharge Plan Disposition Patient Disposition: HOME Condition: Improving Discharge Details Clinical Impression: Hypokalemia Primary Care Provider: YURI HARRELL ED Provider: Alan Martinez Home Meds and New Rx's Prescriptions: Continued gabapentin 300 mg capsule 300 mg PO QHS pregabalin 200 mg capsule 200 mg PO BID Qty: 180 3RF aripiprazole [Abilify] 30 MG tablet 30 mg PO DAILY Qty: 30 5RF levothyroxine 75 MCG tablet 75 mcg PO DAILY benztropine 2 mg Tablet 2 mg PO HS divalproex 250 mg Tablet Extended Release 24 Hr 250 mg PO HS Bydureon BCise 2 mg/0.85 mL Auto-Injector 2 mg SUBCUT QWEEK divalproex 500 mg Tablet,Delayed Release (Dr/Ec) 1,000 mg PO BID docusate sodium 100 mg Tablet 100 mg PO BID Humalog KwikPen Insulin 200 unit/mL (3 mL) Insulin Pen 120 unit SUBCUT TID olanzapine 15 mg Tablet 15 mg PO DAILY Levemir FlexTouch U-100 Insuln 100 unit/mL (3 mL) Insulin Pen 170 unit SUBCUT QHS ibuprofen 800 mg tablet 800 mg PO TID PRNQty: 20 0RF citalopram [Celexa] 20 mg tablet 20 mg PO DAILY Label Comments: Take 1 tablet by mouth every morning topiramate [Topamax] 50 mg tablet 50 mg PO BID Label Comments: Take 1 tablet by mouth twice a day Aristada 882 mg/3.2 mL suspension,extended rel syring 882 mg IM Q4W Label Comments: take IM every 4 weeks Rx Instructions: every 4 weeks Discharge Instructions Instructions: Hypokalemia (ED) Additional Instructions: Our care management team will arrange follow-up for you in primary care clinic as well as in [facility]. Continue your previously prescribed potassium supplementation. Return to the emergency department for any acute concerns Discharge Data Discharge Date/Time-TO BE ENTERED AT DEPARTURE: 03/11/22 02:45 Medical Decision Making <CECI Varela - Last Filed: 03/11/22 19:47> Patient is flattened affect, she is tired in appearance but alert and oriented and easily arousable She has hypokalemia, 2.8 with EKG that shows evidence of QTC prolongation Will be given 20 mEq of IV potassium and 40 mEq p.o. potassium Magnesium 1.9 Glucose 219 Given patient's tachycardia and reported shortness of breath, I did order D- dimer which is pending Denies abdominal pain, her medical history, and her complaints, I think she needs CT abdomen and pelvis, however she does have an elevated D-dimer I would consider adding CTA at the discretion of the provider Patient denies any current suicidal ideation or attempts to harm self D-dimer is 204 and without tachypnea hypoxia think is reasonable to forego CT imaging at this time care will be transitioned to DR Martinez pending ct abd/pelvis, IV and po potassium, urinalysis, and reassessment <Alan Martinez MD - Last Filed: 03/11/22 02:38> Patient is flattened affect, she is tired in appearance but alert and oriented and easily arousable She has hypokalemia, 2.8 with EKG that shows evidence of QTC prolongation Will be given 20 mEq of IV potassium and 40 mEq p.o. potassium Magnesium 1.9 Glucose 219 Given patient's tachycardia and reported shortness of breath, I did order D- dimer which is pending Denies abdominal pain, her medical history, and her complaints, I think she needs CT abdomen and pelvis, however she does have an elevated D-dimer I would consider adding CTA at the discretion of the provider Patient denies any current suicidal ideation or attempts to harm self D-dimer is 204 and without tachypnea hypoxia think is reasonable to forego CT imaging at this time care will be transitioned to DR Martinez pending ct abd/pelvis, IV and po potassium, urinalysis, and reassessment Lab Data Lab results reviewed: Yes I reviewed the patient's lab results. Lab results narrative: Received signout from Ms. LojaMaria D. Please see her note regarding details of the initial presentation, exam and plan of care. Patient had replacement of potassium, was able to begin to take liquids by mouth without difficulty. Repeat potassium obtained and normalized. Patient is improved. Will trial outpatient therapy. We will also have her follow-up with PMD for recheck of potassium. CT images show concern for endometrial mass invading the myometrium on the right side of the uterus. There is evidence of hepatomegaly, colonic diverticula, and subcutaneous fat changes consistent with medication injections. The endometrial mass is new versus comparison from November of this year. Patient has had a history of dysfunctional uterine bleeding in the past. We will arrange follow-up for her in [facility]. Labs: Laboratory Results - last 24 hr 03/10/22 03/10/22 03/10/22 22:35 22:35 22:35 WBC 8.26 RBC 4.39 Hgb 14.6 Hct 41.5 MCV 95 MCH 33.3 H MCHC 35.2 RDW 11.8 Plt Count 224 MPV 9.9 Immature Gran % 1.2 Neutrophils % 51.2 Lymphocytes % 39.2 Monocytes % 6.9 Eosinophils % 1.1 Basophils % 0.4 Nucleated RBC % 0.0 Absolute Neutrophils 4.23 Absolute Lymphocytes 3.24 Absolute Monocytes 0.57 Absolute Eosinophils 0.09 Absolute Basophils 0.03 D-Dimer 204 VBG pH VBG pCO2 VBG pO2 VBG HCO3 VBG Total CO2 VBG O2 Saturation VBG Base Excess Sodium 135 L Potassium 2.8 L* Chloride 97 L Carbon Dioxide 27.5 Anion Gap 10.5 BUN 12 Creatinine 0.7 Estimated GFR/1.73 m2 >= 60.00 Glucose 216 H Calcium 9.3 Magnesium Total Bilirubin 0.3 AST 63 H ALT 71 H Alkaline Phosphatase 229 H Troponin I < 50 Total Protein 7.5 Albumin 3.4 Lipase TSH 2.35 03/10/22 03/10/22 03/10/22 22:35 22:35 23:04 WBC RBC Hgb Hct MCV MCH MCHC RDW Plt Count MPV Immature Gran % Neutrophils % Lymphocytes % Monocytes % Eosinophils % Basophils % Nucleated RBC % Absolute Neutrophils Absolute Lymphocytes Absolute Monocytes Absolute Eosinophils Absolute Basophils D-Dimer VBG pH Cancelled VBG pCO2 Cancelled VBG pO2 Cancelled VBG HCO3 Cancelled VBG Total CO2 Cancelled VBG O2 Saturation Cancelled VBG Base Excess Cancelled Sodium Potassium Chloride Carbon Dioxide Anion Gap BUN Creatinine Estimated GFR/1.73 m2 Glucose Calcium Magnesium 1.9 Total Bilirubin AST ALT Alkaline Phosphatase Troponin I Total Protein Albumin Lipase 97 TSH HPI <CECI Varela - Last Filed: 03/11/22 19:47> General Date/Time Provider Initiated Documentation: 03/10/22 22:13 . HPI Narrative: This 41-year-old female with history of schizoaffective disorder type 2 diabetes insulin-dependent, hypothyroidism presents with report of fatigue and shortness of breath. Denies any chest discomfort. States take her blood sugar prior to arrival 376 and took her insulin. She denies history of . She denies history of PE. She denies any calf pain or swelling. She is having some intermittent abdominal pain in varying locations. She states she never felt like this before. She states that her symptoms all began this evening. She denies any falls or injuries. She denies any attempt to harm her self. She denies any alcohol use or drug use. She denies any cough, nausea, vomiting. Related Data Home Medications Medication Instructions Recorded Confirmed levothyroxine 75 mcg tablet 75 mcg PO DAILY 03/15/16 03/10/22 aripiprazole 30 mg tablet (Abilify) 30 mg PO DAILY #30 tab-caps 11/29/17 03/10/22 gabapentin 300 mg capsule 300 mg PO QHS 10/25/18 03/10/22 aripiprazole lauroxil 882 mg/3.2 882 mg IM Q4W 07/12/21 03/10/22 mL suspension, ext.rel. IM syringe (Aristada) citalopram 20 mg tablet (Celexa) 20 mg PO DAILY 07/12/21 03/10/22 topiramate 50 mg tablet (Topamax) 50 mg PO BID 07/12/21 03/10/22 benztropine 2 mg tablet 2 mg PO HS 09/17/21 03/10/22 divalproex 250 mg tablet,extended 250 mg PO HS 09/17/21 03/10/22 release 24 hr divalproex 500 mg tablet,delayed 1,000 mg PO BID 09/17/21 03/10/22 release docusate sodium 100 mg tablet 100 mg PO BID 09/17/21 01/12/22 exenatide microspheres 2 mg/0.85 2 mg subcut QWEEK 09/17/21 01/12/22 mL subcutaneous auto-injector (Bydureon BCise) insulin detemir U-100 100 unit/mL 170 unit subcut QHS 09/17/21 03/10/22 (3 mL) subcutaneous pen (Levemir FlexTouch U-100 Insulin) insulin lispro 200 unit/mL (3 mL) 120 unit subcut TID 09/17/21 03/10/22 subcutaneous pen (Humalog KwikPen U-200 Insulin) olanzapine 15 mg tablet 15 mg PO DAILY 09/17/21 03/10/22 pregabalin 200 mg capsule 200 mg PO BID #180 caps 10/06/21 03/10/22 ibuprofen 800 mg tablet 800 mg PO TID PRN #20 tabs 11/07/21 Previous Rx's Medication Instructions Recorded aripiprazole 30 mg tablet (Abilify) 30 mg PO DAILY #30 tab-caps 11/29/17 pregabalin 200 mg capsule 200 mg PO BID #180 caps 10/06/21 ibuprofen 800 mg tablet 800 mg PO TID PRN #20 tabs 11/07/21 Allergies Allergy/AdvReac Type Severity Reaction Status Date / Time codeine Allergy Mild Unverified 03/10/22 22:17 General Stated Complaint: GenMedical CECILIA: 3 Review of Systems <CECI Varela - Last Filed: 03/11/22 19:47> All systems reviewed & are unremarkable except as noted in HPI and below PFSH <CECI Varela - Last Filed: 03/11/22 19:47> All Active Problems (Updated 03/11/22 @ 02:36 by Alan Martinez MD) Hypokalemia (Acute) Abnormal vaginal bleeding (Acute) Non compliance w medication regimen (Acute) Blood glucose elevated (Acute) Possible exposure to STD (Acute) Vaginitis (Acute) Yeast dermatitis (Acute) Erythema (Acute) Deviated nasal septum (Chronic) Trigeminal neuralgia of left side of face (Acute 01/03/18) Drug overdose, intentional (Acute) Schizophrenia (Chronic) Suicidal ideation (Acute) Diabetes mellitus type 2 in obese (Acute) History of hypothyroidism (Chronic) Medical History (Updated 03/11/22 @ 02:36 by Alan Martinez MD) Anovulatory bleeding H/O suicide attempt RLS (restless legs syndrome) Schizoaffective disorder Type 2 diabetes mellitus Surgical History H/O pilonidal cyst Ligation of fallopian tube S/p breast implant removal Sep 2019 S/P breast implant, left S/P foot surgery Family History Mother Diabetes Father Heart disease Social History Smoking/Tobacco Use Status: Current-Occasional Tobacco Type: cigarettes and cigars Smoking risk assessment performed?: Yes Alcohol Intake: never Drug use: Never Substance use type: does not use Number of Children: 2 current occupation: Disabled Seatbelt use: always Do you feel safe at home: Yes Do you feel safe in your relationship?: Yes Female Reproductive History Menstrual control method: permanent sterilization History History 2 Para 2 Hx # Term Pregnancies Multiple births Hx # Pregnancies Ectopic pregnancies AB induced Hx Number of Living Children AB spontaneous Exam <CECI Varela - Last Filed: 03/11/22 19:47> Const General: cooperative and other (tired appearing) Nutritional Appearance: obese Orientation: alert HENMT Head: normal to inspection Other: uvula midline, moist mucous membranes Eyes Pupils: PERRL Chest Chest: normal inspection of the chest Resp Effort & Inspection: normal respiratory effort Auscultation: clear to auscultation bilaterally Cardio Rate: regular rate Rhythm: regular rhythm Heart Sounds: no murmurs GI Other: tenderness RUQ and right flank Skin General skin exam: no rashes or lesions noted Neuro General: patient alert and patient oriented x3 Extrem Other: distal pulses intact, no peripheral edema Psych Appearance: well kempt Attitude: cooperative Other: flat Course <CECI Varela - Last Filed: 03/11/22 19:47> Vital Signs Vital signs: Vital Signs Temperature 36.8 C 03/10/22 22:09 Pulse 119 H 03/10/22 22:09 Respiratory Rate 18 03/10/22 22:09 Blood Pressure 134/81 03/10/22 22:09 Pulse Oximetry 98 03/10/22 22:09 Temperature 36.8 C 03/10/22 22:09 Temperature Source Temporal Artery Scan 03/10/22 22:09 Pulse 119 H 03/10/22 22:09 Respiratory Rate 18 03/10/22 22:14 Respiratory Effort 03/10/22 22:14 Respiratory Depth Normal 03/10/22 22:14 Respiratory Pattern Normal 03/10/22 22:14 Blood Pressure 134/81 03/10/22 22:09 Blood Pressure Position Supine 03/10/22 22:09 Pulse Oximetry 98 03/10/22 22:09 Oxygen Delivery Method Room Air 03/10/22 22:09 Oxygen Flow Rate 0 03/10/22 22:09 Pain Level 6 03/10/22 22:09 Comment 03/10/22 22:09 Lab/Test Results Lab/Test Results: Laboratory Tests Range/Units 03/10/22 03/10/22 22:35 22:35 WBC (4.4-10.8) 10^3/uL 8.26 RBC (3.93-5.22) 10^6/uL 4.39 Hgb (11.2-15.7) g/dL 14.6 Hct (36.0-46.0) % 41.5 MCV (80-95) fL 95 MCH (27.0-33.0) pg 33.3 H MCHC (32.0-36.0) % 35.2 RDW (11.7-14.6) % 11.8 Plt Count (130-400) 10^3/uL 224 MPV (8.0-11.0) fL 9.9 Immature Gran % 1.2 Neutrophils % 51.2 Lymphocytes % 39.2 Monocytes % 6.9 Eosinophils % 1.1 Basophils % 0.4 Nucleated RBC % (0.0-0.3) % 0.0 Absolute Neutrophils (1.2-6.7) 10^3/uL 4.23 Absolute Lymphocytes (1.2-3.4) 10^3/uL 3.24 Absolute Monocytes (0.1-0.8) 10^3/uL 0.57 Absolute Eosinophils (0.0-0.7) 10^3/uL 0.09 Absolute Basophils (0.0-0.2) 10^3/uL 0.03 Sodium (136-145) mmol/L 135 L Potassium (3.5-5.1) mmol/L 2.8 L* Chloride (98-107) mmol/L 97 L Carbon Dioxide (21.0-32.0) mmol/L 27.5 Anion Gap (3-11) mmol/L 10.5 BUN (7-18) mg/dL 12 Creatinine (0.55-1.02) mg/dL 0.7 Estimated GFR/1.73 m2 (mL/min/1.73m2) >= 60.00 Glucose (74-106) mg/dL 216 H Calcium (8.5-10.1) mg/dL 9.3 Total Bilirubin (0.2-1.0) mg/dL 0.3 ALT (14-59) U/L 71 H Alkaline Phosphatase (46-116) U/L 229 H Troponin I (<or=60) ng/L < 50 Total Protein (6.4-8.2) g/dL 7.5 Albumin (3.4-5.0) g/dL 3.4 TSH (0.36-3.74) uIU/mL 2.35 Critical Care Time <CECI Varela - Last Filed: 03/11/22 19:47> Critical Care Time Attestation: 35 minutes with telemetry monitoring, IV and p.o. potassium, lab reassessment, EKG reviewed Sign Out <CECI Varela - Last Filed: 03/11/22 19:47> Sign Out Data: Sign Out Comment: pending ct abd/pelvis, iv/po K, urinalysis, reassessment Last updated by Marilee Killian PA at 03/10/22 23:35
[2022-03-10 23:27] LABS: AST 63 U/L (15-37)
[2022-03-10 23:29] LABS: D-Dimer 204 ng/mlFEU (<500)
--- NOTE | 2022-03-10 23:30 | DI.CT_ITS ---
Exam(s) CT ABDOMEN PELVIS W EXAM: CT ABDOMEN PELVIS W CLINICAL HISTORY: left flank and abdominal pain. TECHNIQUE: Imaging Protocol: Axial computed tomography images with coronal and sagittal reformatted images were created and reviewed CONTRAST MATERIAL: Intravenous: Omnipaque 100cc Oral: None COMPARISON: CT CT ABDOMEN PELVIS W from 11/24/2021 FINDINGS: VISUALIZED LUNG BASES: No nodules nor pleural effusions evident. ABDOMEN: There is no ascites. LIVER: Slightly prominent size. No discrete focal hepatic masses evident. No dilated intrahepatic d ucts. GALLBLADDER/BILIARY: No obvious gallbladder pathology. CBD is not dilated. PANCREAS: No evidence of pancreatic mass nor dilatation of the pancreatic duct. SPLEEN: Spleen is not enlarged. No obvious intrasplenic lesions. Splenic and portal veins are paten t. ADRENALS: There are no significant adrenal masses. KIDNEYS:No cysts evident. No solid renal masses. No calculi nor hydronephrosis.. ABDOMINAL AORTA: Abdominal aorta is not enlarged. LYMPH NODES:There is no retroperitoneal nor paraaortic adenopathy. ABDOMINAL WALL: No evidence of significant anterior abdominal wall nor inguinal hernia. Mild subcuta neous streaking both sides with some subcutaneous gas on the left side. Probably related to injectio ns at these sites. GI: There is no evidence of bowel obstruction, free air, nor abscess. PELVIS: GI: No evidence of appendicitis.No evidence of sigmoid diverticulitis. LYMPH NODES: There is no intrapelvic nor inguinal adenopathy. REPRODUCTIVE: The endometrium is now significantly thickened and somewhat asymmetric in thickening pa rticularly on the right side, these findings representing significant change when compared to the CT scan of 11/24/2021. the right side of the endometrial canal is indistinct relative to the myometrium. Tubal ligation clips again noted. No new adnexal findings. URINARY BLADDER: No calculi nor obvious masses evident OSSEOUS: No significant osseous lesions. IMPRESSION: 1. Compared to the prior CT scan of 11/24/2021 there is significant change in the appearance of the u terus. The endometrium is now abnormally thickened and border on its right side with myometrium is i ndistinct, possibly indicating mass involvement with invasion of myometrium on the right side. Appro priate consultation recommended. Further imaging with ultrasound MRI recommended. No new adnexal fi ndings. There are clips from prior tubal ligation. 2. Slightly prominent liver size. No distinct focal hepatic lesions. 3. No free fluid in the abdomen and pelvis. 4. Other findings as above. RADIATION DOSE DELIVERED: 945.08mGy.cm Total DLP DATA REPOSITORY: All CT scans at this facility are submitted to the National Radiology Data Registry (NRDR) Dose Index Registry (DIR) with the [employer] ([employer]). RADIATION OPTIMIZATION: All CT scans at this facility use at least one of these dose optimization te chniques: automated exposure control; mA and/or kV adjustment per patient size (includes targeted exa ms where dose is matched to clinical indication); or iterative reconstruction.
[2022-03-10] MEDS: Potassium Chloride 20 MEQ TABCR 40 MEQ PO (23:37)
[2022-03-10] MEDS: Normal Saline 1,000 ML 1000 ML IV (23:37)
[2022-03-10] MEDS: POTASSIUM CHLORIDE 20 MEQ/100 ML BAG 50 MEQ IVPB (23:37)
[2022-03-10 23:53] LABS: Lipase 97 U/L (73-393)
[2022-03-10] MEDS: Omnipaque 350 MG/ML 100 ML BTL IJ (23:57)
--- NOTE | 2022-03-11 00:10 | DI.VRAD_ITS ---
PROCEDURE INFORMATION: Exam: XR Chest Exam date and time: 03/10/2022 10:45 PM Age: 41 years old Clinical indication: Shortness of breath; Additional info: SOB TECHNIQUE: Imaging protocol: Radiologic exam of the chest. Views: 1 view. COMPARISON: CR XR CHEST 2V PA LATERAL 12/22/2021 4:21 PM FINDINGS: Lungs: Unremarkable. No consolidation. Pleural spaces: Unremarkable. No pleural effusion. No pneumothorax. Heart/Mediastinum: Unremarkable. No cardiomegaly. Bones/joints: Unremarkable. IMPRESSION: No acute findings. Dictated and Authenticated by: Antoni Hurt MD. Ordering:STEF Hunt MD
[2022-03-11 00:21] LABS: Bilirubin Negative (Negative); Blood Trace-lysed (Negative); Clarity Clear (Clear); Glucose 500 mg/dL (Negative); Ketones 15 mg/dL (Negative); Leukocyte Esterase Negative (Negative); Nitrite Negative (Negative); Urobilinogen 0.2 EU/dL (Up TO 0.2); pH 6.5 (5-8)
--- NOTE | 2022-03-11 00:26 | DI.VRAD_ITS ---
PROCEDURE INFORMATION: Exam: CT Abdomen And Pelvis With Contrast Exam date and time: 03/10/2022 11:44 PM Age: 41 years old Clinical indication: Abdominal pain; Flank; Left; Prior surgery; Surgery date: 6+ months; Surgery type: Tubal ligation; Additional info: Abd pain, left flank pain TECHNIQUE: Imaging protocol: Computed tomography of the abdomen and pelvis with contrast. Radiation optimization: All CT scans at this facility use at least one of these dose optimization techniques: automated exposure control; mA and/or kV adjustment per patient size (includes targeted exams where dose is matched to clinical indication); or iterative reconstruction. Contrast material: OMNI 350; Contrast volume: 100 ml; Contrast route: INTRAVENOUS (IV); COMPARISON: CT ABDOMEN PELVIS W 11/24/2021 9:51 PM FINDINGS: Liver: There is diffuse decrease in hepatic parenchymal density, consistent with moderate fatty infiltration. Hepatomegaly. Liver measures 26 cm in craniocaudad extent on the right no mass. Gallbladder and bile ducts: Normal. No calcified stones. No ductal dilation. Pancreas: Normal. No ductal dilation. Spleen: Normal. No splenomegaly. Adrenal glands: Normal. No mass. Kidneys and ureters: Homogeneous enhancement of renal parenchyma. No radiopaque renal or ureteric calculi. No hydronephrosis or perinephric fat stranding. Stomach and bowel: No dilated loops of small bowel or colonic dilatation. There are few colonic diverticula identified. Appendix: Normal appendix. Intraperitoneal space: No free intraperitoneal gas or ascites. Vasculature: Unremarkable. No abdominal aortic aneurysm. Lymph nodes: Unremarkable. No enlarged lymph nodes. Urinary bladder: Unremarkable as visualized. Reproductive: Anteverted uterus. Endometrium is prominent measuring 2.8 cm in thickness. Right border of endometrial canal is indistinct with attenuation/enhancement similar to that within endometrial cavity, extending to subserosal region, /71-73, 3/59-64. Bones/joints: Unremarkable. No acute fracture. Soft tissues: Minimal skin thickening with subjacent stranding of subcutaneous fat bilaterally in lower abdomen. Minute gas bubbles are demonstrated in subcutaneous tissues in lower left abdomen. Multiple round and irregularly-shaped soft tissue areas are again demonstrated bilaterally in buttocks. Findings are most consistent with recent and prior medication injections in buttocks and subcutaneous soft tissues anteriorly. IMPRESSION: 1. Findings concerning for endometrial mass invading myometrium in right body of the uterus. Further initial evaluation with transabdominal and endovaginal pelvic ultrasound recommended. MRI may be needed for complete characterization. 2. Hepatomegaly. 3. Colonic diverticula. 4. Subcutaneous findings most consistent with recent and prior medication injections. Dictated and Authenticated by: Antoni Hurt MD. Ordering:STEF Hunt MD
[2022-03-11 00:35] LABS: Bacteria Negative HPF (Negative); C & S Indicated? No; Crystals Rare Amorphous HPF (Negative); Epithelial Cells Rare HPF (Negative); Mucus Negative (Negative); RBC 0-2 HPF (0-2); WBC 0-2 HPF (0-5)
[2022-03-11 00:57] VITALS: BP 101/68; PULSE 93; RESP 18; O2SAT 95
[2022-03-11 02:44] VITALS: BP 113/68; PULSE 88; RESP 13; O2SAT 100
== END 2022-03-11 02:45 | disposition home or self-care (01) ==
PROVIDERS: Physician Assistant; Emergency Provider Emergency Medicine; PCP Nurse Practitioner Family
DX: E87.6 Hypokalemia (principal); R00.0 Tachycardia, unspecified; R06.02 Shortness of breath; R10.9 Unspecified abdominal pain
CPT/HCPCS: 80053; 82805; 83690; 87635; 93005; 96361; 96365; 96366; 99285; 71045; 74177; 81003; 81015; 83735; 84132; 84443; 84484; 85025; 85379; 93010; 99284; J3480; J3490

== ENCOUNTER 2022-03-15 15:36 | Outpatient (REF) | payer MEDICAID, SELFPAY ==
--- NOTE | 2022-03-15 15:00 | ENDOMET_PTH ---
PATIENT: Shaneka Samano LOC: [facility] U#:[id number] AGE/SX: 41/F ROOM: RE03/15/[address]: Syeda Bai MD : 1980 BED: DIS: 03/15/2022 SPEC #: [id number] RECD: 03/16/22 09:36 STATUS: DA REQ #: [id number] CATHIE: 03/15/22 15:[address]: Syeda Bai DEPT: Surgical Specimen RECD BY: Richard Lake Tissues: 1 - ENDOMETRIUM BX/JUSTINE Procedures: GROSS AND MICRO LEVEL 4 Comments: [id number]
[2022-03-17 14:59] LABS: Chlamydia Result Negative (Negative); GC Result Negative (Negative)
== END 2022-03-15 15:37 | disposition home or self-care (01) ==
LOC: LBN 15:36
PROVIDERS: PCP Nurse Practitioner Family; Visit Provider Obstetrics & Gynecology
DX: Z20.2 Contact with and (suspected) exposure to infections with a predominantly sexual mode of transmission (principal); N84.0 Polyp of corpus uteri; N85.8 Other specified noninflammatory disorders of uterus
CPT/HCPCS: 87491; 87591; 88305

== ENCOUNTER 2022-06-21 23:32 | Emergency (ER) | payer MEDICAID, SELFPAY ==
[2022-06-21 23:36] VITALS: BP 135/72; PULSE 96; RESP 16; TEMP 36.7; O2SAT 96
--- NOTE | 2022-06-21 23:38 | ED.GENADUL_ITS ---
Discharge Plan Disposition Patient Disposition: HOME Condition: Good Discharge Details Clinical Impression: Acute hyperglycemia Primary Care Provider: YURI HARRELL ED Provider: Ankur Huffman Home Meds and New Rx's Prescriptions: No Action Trulicity 0.75 mg/0.5 mL pen injector 0.75 mg subcut QWEEK Label Comments: 03/15/22- pt unsure of dose. Pt reports it is a new med as of around a month ago. gabapentin 300 mg capsule 300 mg PO QHS pregabalin 200 mg capsule 200 mg PO BID Qty: 60 5RF levothyroxine 75 MCG tablet 75 mcg PO DAILY benztropine 2 mg Tablet 2 mg PO HS divalproex 250 mg Tablet Extended Release 24 Hr 250 mg PO HS Bydureon BCise 2 mg/0.85 mL Auto-Injector 2 mg SUBCUT QWEEK divalproex 500 mg Tablet,Delayed Release (Dr/Ec) 1,000 mg PO BID olanzapine 15 mg Tablet 15 mg PO DAILY Levemir FlexTouch U-100 Insuln 100 unit/mL (3 mL) insulin pen 80 unit SUBCUT BID Humalog KwikPen Insulin 200 unit/mL (3 mL) insulin pen 4 unit SUBCUT TID Label Comments: 03/15/22- pt report she takes 4-5 units with meals. citalopram [Celexa] 20 mg tablet 20 mg PO DAILY Label Comments: Take 1 tablet by mouth every morning topiramate [Topamax] 50 mg tablet 50 mg PO BID Label Comments: Take 1 tablet by mouth twice a day Aristada 882 mg/3.2 mL suspension,extended rel syring 882 mg IM Q4W Label Comments: take IM every 4 weeks Rx Instructions: every 4 weeks aripiprazole [Abilify] 30 MG tablet 15 mg PO DAILY Discharge Instructions Instructions: Diabetic Hyperglycemia (ED) Additional Instructions: At this time your blood glucose is transitioning to a more normal level. Please continue to hydrate well at home, and take your diabetes medications as directed. If you notice any worsening of your symptoms, or any new symptoms such as vomiting, diarrhea, fever, chills, shortness of breath, chest pain, numbness, weakness, or fainting , please return immediately to the emergency department for reevaluation. Please follow up with your primary care provider as soon as possible for reassessment and reevaluation. As always, it was a pleasure participating in your medical care today. Referrals: YURI HARRELL, FRONT DESK ASSOCIATE [Primary Care Provider] - Medical Decision Making 41-year-old female with a past medical history of diabetes mellitus with significant insulin utilization, hypothyroidism, schizophrenia, presents today for elevated blood sugar and severe fatigue. Patient was at a friend's house, and the friend and the patient both stated that she has not been taking any insulin or medications for the last few months. Today she had a challenging day, and ate chocolate all day long and nothing else. This evening she became confused and EMS was called. Upon their arrival blood sugar was 450. She was brought to the ER for further assessment. No other complaints at this time. No vomiting, or alcohol use. Exam demonstrates dry mucous membranes, slightly confused patient. No focal neurologic deficits though. She is able to ambulate and follow commands well. Differential is highest for HH NK or potential DKA if she is completely insulin- dependent now. We will rehydrate, check her sugars, monitor closely evaluate for electrolyte abnormalities and reassess. 12 AM On reassessment the patient is acting much more normal now. She did rest for a while. She received her insulin, blood glucose is normalizing. She feels well and is requesting to walk home. Laboratory work-up demonstrates no white count bandemia or left shift. VBG stable. Small amount of ketones noted in urine. TSH is slightly elevated but free T4 is normal. Electrolytes stable. Patient was rehydrated with 2 L of normal saline. UDS was negative. Patient was given 10 mEq of potassium IV as I suspect her potassium was slightly declined after the rehydration. And the insulin. Patient is now in her normal [employer], and she states that she actually has been taking her blood sugar medications however she did not take any today, and then had all the chocolate. She otherwise feels well. Symptoms have resolved. Patient stable for discharge. I have extensively reviewed the treatment plan and discharge instructions with the patient. I have addressed all patient concerns at this time. The patient was made aware of what symptoms to monitor for that would warrant a return to the emergency department. Discussed the plan with the patient, they demonstrate verbal understanding and agreement with our assessment and plan at this time. The documentation in this chart was dictated using [employer] dictation software. Please excuse any dictation errors. HPI General Date/Time Provider Initiated Documentation: 06/21/22 23:35 . HPI Narrative: 41-year-old female with a past medical history of diabetes mellitus with significant insulin utilization, hypothyroidism, schizophrenia, presents today for elevated blood sugar and severe fatigue. Patient was at a friend's house, and the friend and the patient both stated that she has not been taking any insulin or medications for the last few months. Today she had a challenging day, and ate chocolate all day long and nothing else. This evening she became confused and EMS was called. Upon their arrival blood sugar was 450. She was brought to the ER for further assessment. No other complaints at this time. No vomiting, or alcohol use. Related Data Home Medications Medication Instructions Recorded Confirmed levothyroxine 75 mcg tablet 75 mcg PO DAILY 03/15/16 06/21/22 gabapentin 300 mg capsule 300 mg PO QHS 10/25/18 06/21/22 aripiprazole lauroxil 882 mg/3.2 882 mg IM Q4W 07/12/21 06/21/22 mL suspension, ext.rel. IM syringe (Aristada) citalopram 20 mg tablet (Celexa) 20 mg PO DAILY 07/12/21 06/21/22 topiramate 50 mg tablet (Topamax) 50 mg PO BID 07/12/21 06/21/22 benztropine 2 mg tablet 2 mg PO HS 09/17/21 06/21/22 divalproex 250 mg tablet,extended 250 mg PO HS 09/17/21 06/21/22 release 24 hr divalproex 500 mg tablet,delayed 1,000 mg PO BID 09/17/21 06/21/22 release exenatide microspheres 2 mg/0.85 2 mg subcut QWEEK 09/17/21 06/21/22 mL subcutaneous auto-injector (Bymelissa BCi) olanzapine 15 mg tablet 15 mg PO DAILY 09/17/21 06/21/22 dulaglutide 0.75 mg/0.5 mL 0.75 mg subcut QWEEK 03/15/22 06/21/22 subcutaneous pen injector (Ericulicity) insulin detemir U-100 100 unit/mL 80 unit subcut BID 03/15/22 06/21/22 (3 mL) subcutaneous pen (Levemir FlexTouch U-100 Insulin) insulin lispro 200 unit/mL (3 mL) 4 unit subcut TID 03/15/22 06/21/22 subcutaneous pen (Humalog KwikPen U-200 Insulin) pregabalin 200 mg capsule 200 mg PO BID #60 caps 05/05/22 06/21/22 aripiprazole 30 mg tablet (Abilify) 15 mg PO DAILY 06/21/22 06/21/22 Previous Rx's Medication Instructions Recorded pregabalin 200 mg capsule 200 mg PO BID #60 caps 05/05/22 Allergies Allergy/AdvReac Type Severity Reaction Status Date / Time codeine Allergy Mild Unverified 06/21/22 23:45 General CECILIA: 3 Review of Systems All systems reviewed & are unremarkable except as noted in HPI and below PFSH All Active Problems (Updated 06/22/22 @ 02:15 by Ankur Huffman DO) Acute hyperglycemia (Acute) Oligomenorrhea (Acute) Uterine mass (Acute) Schizophrenia (Chronic) Diabetes mellitus type 2 in obese (Acute) Medical History Deviated nasal septum Drug overdose, intentional H/O suicide attempt History of hypothyroidism Non compliance w medication regimen RLS (restless legs syndrome) Schizoaffective disorder Trigeminal neuralgia of left side of face (01/03/18) Type 2 diabetes mellitus Yeast dermatitis Surgical History H/O pilonidal cyst Ligation of fallopian tube S/p breast implant removal Sep 2019 S/P breast implant, left S/P foot surgery Family History Mother Diabetes Father Heart disease Social History Smoking/Tobacco Use Status: Current-Occasional Tobacco Type: cigarettes and cigars Smoking risk assessment performed?: Yes Alcohol Intake: never Drug use: Never Substance use type: does not use Number of Children: 2 current occupation: Disabled Seatbelt use: always Do you feel safe at home: Yes Do you feel safe in your relationship?: Yes Female Reproductive History Menstrual Age of Menarche: 16 Duration of menses: other control method: permanent sterilization History History 2 Para 2 Hx # Term Pregnancies Multiple births Hx # Pregnancies Ectopic pregnancies AB induced Hx Number of Living Children AB spontaneous Past Pregnancies Del. Date GA/Weeks # Preg Succ Route Wgt Sex Labor Lgth Anesth esia Location Prov Complic 08/30/01 40 No Yes vaginal Female 03/25/02 40 No Yes vaginal Male Delivery Date: 08/30/01 [facility]: 03/25/02 Last Updated by: Aimee [facility] Exam Narrative Exam Narrative: 1.Const: Well-nourished, Well-developed, appearing stated age 2.Eyes: PERRL, no conjunctival injection, and symmetrical lids. 3.ENT: Atraumatic external nose and ears. Dry MM. Neck: Symmetric, trachea midline, No thyromegaly. 4.CVS: +S1/S2, No murmurs or gallops. Peripheral pulses 2+ and equal in all extremities. Brisk capillary refill in all extremities. 5.RESP: Unlabored respiratory effort. Clear to auscultation bilaterally. No wheezes rales or rhonchi 6.GI: Soft, Nontender/Nondistended, No hepatosplenomegaly. No guarding or rebound. 7.MSK: Normocephalic/Atraumatic, Extremities w/o deformity or ttp No cyanosis or clubbing, Normal movement of all extremities 8.Skin: Warm, Dry. No rashes or lesions. 9.Neuro: party chief II-XII grossly intact. Sensation grossly intact, no focal neurologic deficits. 10.Psych: (AAO) x3. Very sleepy appearing. Slightly confused.
[2022-06-21 23:43] LABS: BE (Venous) -2 mmol/L (-2-3); HCO3 (Venous) 23 mmol/L (23-28); O2 Sat (Venous) 95 %; TCO2 (Venous) 20 mmol/L (24-29); pCO2 (Venous) 39 mmHg (41-51); pH (Venous) 7.37 (7.31-7.41); pO2 (Venous) 72 mmHg
[2022-06-21] MEDS: Normal Saline 1,000 ML 1000 ML IV (23:44)
[2022-06-21 23:46] LABS: Abs Immature Grans 0.06 10^3/uL (0.0-0.06); Absolute Basophil Count 0.03 10^3/uL (0.0-0.2); Absolute Eosinophil Count 0.06 10^3/uL (0.0-0.7); Absolute Lymphocyte Count 3.03 10^3/uL (1.2-3.4); Absolute Monocyte Count 0.42 10^3/uL (0.1-0.8); Absolute Neutrophil Count 4.14 10^3/uL (1.2-6.7); Basophils % 0.4; Eosinophils % 0.8; HCT 40.4 % (36.0-46.0); HGB 14.5 g/dL (11.2-15.7); Immature Grans % 0.8; Lymphocytes % 39.1; MCHC 35.9 % (32.0-36.0); MCV 95 fL (80-95); MPV 9.8 fL (8.0-11.0); Monocytes % 5.4; Neutrophils % 53.5; Platelet Count 225 10^3/uL (130-400); RBC 4.27 10^6/uL (3.93-5.22); RDW 11.8 % (11.7-14.6); RDW-SD 40.4 fL; WBC 7.74 10^3/uL (4.4-10.8)
[2022-06-21] MEDS: Insulin REGULAR-Human 100 UNITS/ML UNIT 17 UNITS SC (23:52)
[2022-06-21 23:54] VITALS: BP 115/62; PULSE 91; PULSE 92; RESP 14
[2022-06-21 23:55] VITALS: PULSE 88; RESP 14
[2022-06-21 23:56] VITALS: RESP 19
[2022-06-21 23:57] VITALS: RESP 14
[2022-06-21 23:58] VITALS: RESP 17
[2022-06-22 00:05] LABS: ALT 63 U/L (14-59); AST 51 U/L (15-37); Albumin 3.4 g/dL (3.4-5.0); Alkaline Phosphatase 186 U/L (46-116); BUN 9 mg/dL (7-18); Bilirubin, Total 0.3 mg/dL (0.2-1.0); CREATININE 0.8 mg/dL (0.55-1.02); Chloride 101 mmol/L (98-107); Estimated GFR 94.87 (mL/min/1.73m2); Glucose 425 mg/dL (74-106); Potassium 3.8 mmol/L (3.5-5.1); Sodium 137 mmol/L (136-145); Total Protein 7.5 g/dL (6.4-8.2)
[2022-06-22 00:06] VITALS: PULSE 97; RESP 18
[2022-06-22 00:07] VITALS: RESP 15
[2022-06-22 00:08] VITALS: BP 108/57; PULSE 92; RESP 14
[2022-06-22 00:19] LABS: TSH (W/Ref FT4) 3.99 uIU/mL (0.36-3.74)
[2022-06-22 00:23] LABS: *AMPHETAMINES SCREEN URINE Negative (Negative); *BARBITURATES SCREEN URINE Negative (Negative); *BENZODIAZEPINES SCREEN URINE Negative (Negative); Cannabinoids THC Negative (Negative); Cocaine Screen,Urine Negative (Negative); METHADONE URINE SCREEN Negative (Negative); OPIATES URINE SCREEN Negative (Negative); Tricyclic Antidepressants Negative (Negative)
[2022-06-22 00:26] LABS: Bilirubin Negative (Negative); Blood Negative (Negative); Clarity Clear (Clear); Glucose 500 mg/dL (Negative); Ketones 80 mg/dL (Negative); Leukocyte Esterase Negative (Negative); Nitrite Negative (Negative); Urobilinogen 0.2 EU/dL (Up TO 0.2); pH 6.5 (5-8)
[2022-06-22] MEDS: Normal Saline 1,000 ML 1000 ML IV (00:32)
[2022-06-22] MEDS: POTASSIUM CHLORIDE 10 MEQ/100 ML BAG 100 MEQ IVPB (00:34)
[2022-06-22 00:36] LABS: FREE T4 1.36 ng/dL (0.76-1.46)
[2022-06-22 02:20] VITALS: PULSE 87; RESP 25; TEMP 36.7; O2SAT 97
== END 2022-06-22 06:15 | disposition home or self-care (01) ==
PROVIDERS: Emergency Provider Student in an Organized Health Care Education/Training Program; PCP Nurse Practitioner Family
DX: E11.65 Type 2 diabetes mellitus with hyperglycemia (principal); Z79.4 Long term (current) use of insulin; E87.6 Hypokalemia; F17.210 Nicotine dependence, cigarettes, uncomplicated; F17.290 Nicotine dependence, other tobacco product, uncomplicated; R41.0 Disorientation, unspecified
CPT/HCPCS: 80053; 80307; 81025; 82805; 96365; 96372; 99284; 81003; 83735; 84439; 84443; 85025; J3480

== ENCOUNTER → 2022-07-23 00:51 | Outpatient (CLI) | payer MEDICAID, SELFPAY ==
--- OUTSIDE RECORDS SUMMARY | 2022-07-23 00:55 | XMS_ITS | Encounter Summary ---
:1980 [place] [address] Care Team Providers Name Role Phone Lidia Benson APRN Primary Care Provider Encounter Details Date Type Department Care Team Description 12/08/2018 Ancillary Procedure Radiology Library at [facility] PRASHANT HOLLEY MD [facility] [place] [address] OTOLARYNGOLOGY [phone] [place] [id number] (Wo rk) Social History Tobacco Use Types Packs/Day Years Used Date Smoking Tobacco: Some Days Cigarettes 0.5 1 Smokeless Tobacco: Never Alcohol Use Standard Drinks/Week Comments No 0 (1 standard drink = 0.6 oz pure alcoho l) Sex Assigned at Date Recorded Not on file documented as of this encounter Plan of Treatment Not on filedocumented as of this encounter Procedures Procedure Name Priority Date/Time Associated Diagnosis Comme nts FILM LIBRARY Routine 12/08/2018 2:11 PM Results f or this STORAGE ONLY CT EDT procedure ar e in SPINE the results section. documented in this encounter Results Film Library- Storage Only CT Spine (12/08/2018 2:11 PM EDT) Specimen (Source) Anatomical Location Collection Method / Collectio n Time Received Time / Laterality Volume Narrative [facility] - 12/08/2018 2:11 PM EDT This exam is auto-finalizing. It's purpo se is for storage only. Alan Longo III, MD Yessy FILM LIBRARY ORDERABLES Performing Organization Address City/State/ZIP Code Phon e Number [facility] [place], [place] documented in this encounter Visit Diagnoses Not on filedocumented in this encounter Care Teams Airplane Rigger Relationship Specialty Start Date End Date Lidia Benson APRN PCP - General Family Medicine 02/28/18 08/23/19 [address] [facility] [place] [address] documented as of this encounter
--- OUTSIDE RECORDS SUMMARY | 2022-07-23 00:55 | XMS_ITS | Encounter Summary ---
:1980 Author Organization [facility] [place] [address] Care Team Providers Name Role Phone Lidia Benson APRN Primary Care Provider Encounter Details Date Type Department Care Team Description 10/25/2018 External Results Gastroenterology at [facility] Jimmy Calvillo, [facility] [place] [address] [facility] [phone] [place], [place] [address] Social History Tobacco Use Types Packs/Day Years [...] Name Priority Date/Time Associated Diagnosis Comme nts EXTERNAL LAB CBC CMP Routine 10/24/2018 Results for this THYROID RESULTS PANEL proced ure are in the results section . documented in this encounter Results CBC / CMP / Thyroid External Results (10/24/2018) P athologist Signature Total Protein 7.7 Albumin 3.4 Total Bilirubin 0.2 Alk Phos 148 AST 41 ALT 68 Historical Provider MD POINT OF CARE TEST ORDERABLE S documented in this encounter Visit Diagnoses Not on filedocumented in this encounter Care Teams Fmd Teacher Relationship Specialty Start Date End Date Lidia Benson APRN PCP - General Family Medicine 02/28/18 08/23/19 [address] [place] [address] documented as of this encounter
--- OUTSIDE RECORDS SUMMARY | 2022-07-23 00:55 | XMS_ITS | Encounter Summary ---
:1980 Author Organization [place] [address] Care Team Providers Name Role Phone Lidia Benson APRN Primary Care Provider Reason for Visit Reason Comments Follow Up Surgery s/p left breast implant cortney simon Encounter Details Date Type Department Care Team Description 02/19/2020 Office Visit Plastic Surgery at Corby Curry MD Surgery follow-up; [facility] [place] Complication of breast impla nt, initial encounter [facility] DR Leiva PLASTIC SURGERY [place] [phone] Social History Tobacco Use Types Packs/Day Years Used Date Smoking Tobacco: Every Day Cigarettes 0.5 1 Smokeless Tobacco: Never Comments: smokes 1-2 cigarettes a day Alcohol Use Standard Drinks/Week Comments No 0 (1 standard drink = 0.6 oz pure alcoho l) Sex Assigned at Date Recorded Not on file documented as of this encounter Progress Notes Corby Curry MD - 02/19/2020 11:15 AM EDT Plastic Surgery Post Op Note Corby Curry MD. Reason for visit: F/U status post procedure Date of surgery: 09/17/19 Procedure(s): Left Breast Implant Removal with Capsulectomy Complications: None reported HPI: Pt reports to clinic today for surgery follow-up. She is unaccompanied for today's visit and reports doing well to date. She feels she has been healing well since surgery. She denies pain or drainage from the incision site. She denies concerns with movement or activity. She would like to know if Medicaid would cover another implant. Examination: There were no vitals taken for this visit. Patient is alert, conversant, comfortable, ambulating Incision healing well No collection, no erythema, no evidence of cellulitis. Excellent healing Impression: Shaneka Samano is a 39 y.o. female who was seen today for follow-up after the above procedure. Please see the operative note for details. She is doing well without complaints. I am verypleased with her healing to date. Her incisions are well-healed, no sign of infection. I informed her that Medicaid will not cover another implant as it is deemed cosmetic, however we can attain pricing if she would like to proceed. I do not have any concerns at this time. She will follow-up PRN. Plan: Follow up: PRN I, Lauren Steele, have performed the documention for this encounter in the presence of and acting as a scribe for CORBY CURRY MD. I performed the services which were documented by the scribe, and I agree with the accuracy of the documentation in this encounter. CORBY CURRY MD. documented in this encounter Plan of Treatment Not on filedocumented as of this encounter Visit Diagnoses Diagnosis Surgery follow-up Follow-up examination, following unspeci fied surgery Complication of breast implant, initial encounter documented in this encounter Care Teams Buying Intern Relationship Specialty Start Date End Date Lidia Benson APRN PCP - General Family Medicine 09/14/19 [place] [address] documented as of this encounter
--- OUTSIDE RECORDS SUMMARY | 2022-07-23 00:55 | XMS_ITS | Encounter Summary ---
:1980 Author Organization [facility] [place] [place] [address] Care Team Providers Name Role Phone Lidia Benson APRN Primary Care Provider Encounter Details Date Type Department Care Team Description 12/27/2019 Telephone Neurosurgery at [facility] Ankur Galindo MD [facility] [place] [id number] NEUROSURGERY [phone] [place], [place] [address] (Wo rk) Social History Tobacco Use Types Packs/Day Years Used Date Smoking Tobacco: Every Day Cigarettes 0.5 1 Smokeless Tobacco: Never Comments: smokes 1-2 cigarettes a day Alcohol Use Standard Drinks/Week Comments No 0 (1 standard drink = 0.6 oz pure alcoho l) Sex Assigned at Date Recorded Not on file documented as of this encounter Miscellaneous Notes Telephone Encounter - Ankur Galindo MD - 12/27/2019 8:54 AM EDT Telephone Call Spoke with patient to review MRI brain images from March 2019. To my review there is no clear evidence of vascular compression and I would continue to recommend stereotactic radiosurgery if she is interested in intervention. She expressed high degree of anxiety about any procedure and has declined appointments with Dr. Hewitt. We briefly again discussed the process of SRS and she stated she would consider her options and be in touch if she decides to move forward. Ankur Galindo MD Patient verbally consents to this telephone visit and understands that this visit may be billed, similar to a clinic office visit. I provided care to the patient today via telephone call. The total time associated with this visit was 10 minutes. documented in this encounter Plan of Treatment Not on filedocumented as of this encounter Visit Diagnoses Diagnosis Trigeminal neuralgia of left side of fac e documented in this encounter Care Teams Assistant Editor Relationship Specialty Start Date End Date Lidia Benson APRN PCP - General Family Medicine 09/14/19 [place] [address] documented as of this encounter
--- OUTSIDE RECORDS SUMMARY | 2022-07-23 00:55 | XMS_ITS | Encounter Summary ---
:1980 Author Organization [facility] [place] [address] Care Team Providers Name Role Phone Lidia Benson APRN Primary Care Provider Encounter Details Date Type Department Care Team Description 10/20/2018 External Results Gastroenterology at [facility] Jimmy Calvillo, [facility] [place] [address] [facility] [phone] [address] [place], [place] [address] Social History Tobacco Use Types [...] Comme nts EXTERNAL LAB CBC CMP Routine 08/31/2018 Results for this THYROID RESULTS PANEL proced ure are in the results section . documented in this encounter Results CBC / CMP / Thyroid External Results (08/31/2018) P athologist Signature Sodium 136 Potassium 3.7 Chloride 97 CO2 27 BUN 16 Creatinine 0.65 Glucose Lvl 277 Calcium 9.1 Total Protein 7.3 Albumin 3.3 Total Bilirubin 0.2 Alk Phos 229 AST 36 ALT 101 Specimen (Source) Anatomical Location Collection Method / Collectio n Time Received Time / Laterality Volume 08/31/2018 Historical Provider POINT OF CARE TEST ORDERABLE S documented in this encounter Visit Diagnoses Not on filedocumented in this encounter Care Teams Teacher Visually Impaired Relationship Specialty Start Date End Date Lidia Benson APRN PCP - General Family Medicine 02/28/18 08/23/19 [place] [address] documented as of this encounter
--- OUTSIDE RECORDS SUMMARY | 2022-07-23 00:55 | XMS_ITS | Encounter Summary ---
:1980 Author Organization [facility] [place] [address] Care Team Providers Name Role Phone Lidia Benson APRN Primary Care Provider Reason for Visit Auth/Cert Specialty Diagnoses / Procedures Referred By Contact Refer red To Contact Diagnoses implant deflation left breast Procedures PRO REMOVAL OF BREAST IMPLANT PRO REMOVAL OF BREAST CAPSULE REMOVAL OF INTACT MAMMARY IMPLANT ([facility] 6.48) BREAST, PERIPROSTHETIC CAPSULECTOMY ([facility] 10.62) Referral ID Status Reason Start Date Expiration Date Visits Requ ested Visits Authorized [id number] 1 1 Encounter Details Date Type Department Care Team Description 09/17/2019 Surgery Outpatient Surgery Corby Curry MD REMOVAL OF MAMMARY Center [facility] IMPLANT MATERIAL ([facility] 8.54) [facility] [place] [address] [place] [address] [phone] Social History Tobacco Use Types Packs/Day Years Used Date Smoking Tobacco: Every Day Cigarettes 0.5 1 Smokeless Tobacco: Never Comments: smokes 1-2 cigarettes a day Alcohol Use Standard Drinks/Week Comments No 0 (1 standard drink = 0.6 oz pure alcoho l) Sex Assigned at Date Recorded Not on file documented as of this encounter Last Filed Vital Signs Vital Sign Reading Time Taken Comments Blood Pressure 110/52 09/17/2019 10:00 AM EST Pulse 91 09/17/2019 10:00 AM EST Temperature 35.9 ??C (96.6 ??F) 09/17/2019 9:49 AM EST Respiratory Rate 16 09/17/2019 10:00 AM EST Oxygen Saturation 97% 09/17/2019 10:00 AM EST Inhaled Oxygen Concentration - - Weight 88.5 kg (195 lb) 09/17/2019 7:14 AM EST Height 160 cm (5' 3) 09/17/2019 7:14 AM EST Body Mass Index 34.54 09/17/2019 7:14 AM EST documented in this encounter Discharge Instructions Discharge InstructionsKelsey Hernandez RN - 09/17/2019 10:52 AM EST At 8 15 AM you received 1000 mg of acetaminophen- Your next dose should not be taken before 8 hours have passed. Next dose not before- 4:15 PM today 09/17/19. You should not take more than a total of 3000 mg of acetaminophen in a 24 hour period. General Anesthesia Discharge Instructions Go home and rest. You may be sleepy for several hours. Take it easy as sudden position changes may cause nausea and/or dizziness. Use caution on stairs. Do not smoke if you are alone. Follow a light to regular diet as tolerated today. If nausea occurs, start with clear liquids, and progress slowly to a regular diet. Do not drive, operate machinery, drink alcoholic beverages or make any legal decisions after having general anesthesia. The medications given change your reaction time and alter your judgement. IV site -- slight redness is normal, you can use warm compresses. If tenderness and redness increases or foul drainage occurs, please contact your M.D. Patients who have had endotracheal tubes/LMA (tubes used by the anesthesia staff to ensure a safe airway during your operation) may have a sore throat. This is normal and cold liquids or soothing lozenges will help ease this discomfort. Narcotic pain medications can cause constipation, please ask the surgeons office what they recommendfor prevention of this. Some non-pharmaceutical means of constipation prevention include increasing intake of fluids, eating more fruits and vegetables as well as fruit juices. If you are uncomfortable and/or unable to urinate within 8 hours of discharge and it is before 5 pm,call your physician. If it is after 5pm go to the closest emergency room or call the hospital recoating machine operator at [phone] and ask for physician windows consultant covering for your physician. Questions or problems after 5pm or on a weekend: Call the [facility] recoating machine operator at and ask for the physician windows consultant covering for your doctor. Patient InstructionsCheri Braxton, TRAFFIC CONTROL SPECIALIST - 09/17/2019 10:37 AM EST Images from the original note were not included. Discharge instructions: ?? The healing process after breast reduction surgery varies with each person. You should expect to feel tired for the first 2 - 3 weeks due to anesthesia and the healing process. Rest often during theday and get a good night sleep. Pain (short term and manager long term care) ?? With any surgery there is some discomfort or pain. You should take both tylenol ?? You may take ibuprofen 48 hours after surgery ?? You will may have nerve pain after your surgery because the nerve endings have been disturbed. Nerve pain may feel like a burning sensation, itching or a shooting, electric shock pain. This is normal and will get better as you heal. Swelling ?? Moderate bruising and swelling is normal in the first few weeks after surgery. The swelling will gradually go down, but it may remain for 3 to 6 months. ?? To help with swelling wear your compression bra. Drains ?? Record drain output and bring to your first clinic appointment with you. Based on the nursing assessment, your drain will likely be removed at this appointment. ?? The nurses will show you how to care for the drains Showering ?? You may shower tomorrow. ?? Where supportive bra when not showeing ?? Do not take a bath or use a hot tub until incisions are completely healed. ?? If you have drains in place, tie a shoe lace or string around your neck and attach the drains to this to prevent accidental removal. ?? Have someone nearby during your first shower. Incisions/Dressings ?? You may have some red, pink, yellow/clear drainage from your incisions for the first 1-2 weeks. ?? You may remove dressings tomorrow prior to showering GETTING OUT OF BED ?? You will be asked to limit the use of your arms for a few weeks after surgery. This can be a problem when trying to get out of bed. The following suggestions help you get out of bed with minimal useof your arms. Complications: Call your doctor with the following signs of infection: ?? A temperature over 100.4 F or 38 C ?? Redness at the incision line that spreads away from the incision after the first 48 ken thick yellow, foul smelling drainage ?? Increasing pain that is not relieved by your pain medicine ?? One breast becomes much larger and more firm than the other Contact your Doctor ?? To make an appointment or for questions about scheduling, please contact our administrative offices at [phone] ?? For clinical questions, please call our nurses at [phone] ?? Both offices are open Tuesday thru Tuesday 8a - 5p. With emergencies after hours, call the hospitaloperator at [phone] and ask for the Plastic Surgery Resident windows consultant. DENNIS DRAIN CARE INSTRUCTIONS General Information: Drains help to keep fluid from collecting by removing the extra blood and fluid from under the skin.A drain is temporary. It stays in place until the drainage has slowed down or stopped. Your doctor or nurse will decide when each drain should be removed: This is usually after each drain has 30cc or less in 24 hours for 2 days in a row. When this happens, you should call the General Surgery Clinic toschedule an appointment with the nurses to have it/them removed. This is usually not painful and only takes a few seconds. How do I care for the drains at home? Pin your drains to your clothing by using a safety pin through the plastic loop on the top of the bulb. If the drain is not attached to your clothing, it may pull out from under your skin. Also, a drain usually feels more comfortable when it???s attached. To care for the drain at home, you will have to empty the drain, ???strip?? the drain tubing, and change the dressing if applicable. See the following pages for instructions on how to do this. What problems may I have with my drain? The bulb is not compressed- The bulb may not be squeezed tightly enough, the plug may not be closed securely, or the tube has slipped out a bit and is leaking. Follow the instructions on how to empty the drain. If the bulb remains expanded, then notify your doctor or nurse during business hours. ??? No drainage or sudden decrease in amount of drainage- This is usually due to clots in the drain.Follow the instructions on how to strip the drain tubing. ??? The tube accidentally falls out- If this happens, place a dry gauze dressing over the drain siteand notify your doctor or nurse during business hours. ??? Increased redness, swelling, or heat around the tube insertion site- This may be a sign of infection. Take your temperature: if it is higher than 101F or 38.8C, call your doctor or nurse immediately. Otherwise, notify your doctor or nurse during business hours and keep the dressing clean and dry. Post-Surgical Drain Care: After surgery, you will have one or two drains, called a Taurus-Villeda (DENNIS) drain, placed near the incision. This device collects fluid, under suction, from your surgical area. The drain promotes healing and recovery, and reduces the chance of infection. The drain will be in place until the drainage slows enough for your body to reabsorb fluid on its own. While you are hospitalized the nursing staff will care for the drain and teach you to continue to do so at home. How to Empty Your DENNIS Drain Note: Wash your hands thoroughly before emptying your drain(s). 1. Have the plastic measuring cup from the hospital ready to collect and measure the drainage. Please measure the output at the same two times every 24 hours and record the amount. 2. Unpin the drain from your clothing. 3. 4. Open the top of the drain. Turn the drain upside down and squeeze the contents of the bulb into the measuring cup. Be sure to empty the bulb as completely as possible. Flush the contents in the toilet. 5. Use the drain output log chart to record the amount of drainage twice a day or any time the bulb is full. Record the total for 24 hours for each drain you have. 6. If you have more than one drain, remember to record the drainage from each drain separately. 7. To prevent infection, do not let the stopper or top of the bottle touch the measuring cup or any other surface. 8. 9. Use one hand to squeeze all of the air from the drain. With the drain still squeezed, use your other hand to replace the top. This creates the suction necessary to remove the fluids from your body. 10. Pin the drain back on your clothing to avoid pulling it out accidently. 11. Wash your hands again. Remember to wash your hands before and after the procedure to reduce the risk of infection. Stripping the Tube Often the tube may become blocked with products of healing or clot. If you do not have drainage, then: ??? Hold the tube near where it is inserted in to the skin with your one hand. ??? Use the other hand to hold a pencil and gently squeeze the tubing with the pencil while moving it down toward the drain away from your skin. This forces the more sold material into the bulb for better drainage. ??? Repeat as necessary to start the draining again. Removal of the Tube ??? The tube may be removed once a single tube output is less than 30cc (1 oz.) for 24 hours. ??? Please call the office if the output becomes thicker or has a bad odor. Taurus-Villeda Drainage Record NAME: Date of Surgery: Date: Time: If more than one drain, which one: Drainage Amount (per drain) Total Amount (per drain; in 24 hours) Future Appointments Date Time Provider Department Center 09/25/2019 11:00 AM NURSE, PLASTIC SURGERY [facility] [address] [place] [address] documented in this encounter Medications at Time of Discharge Medication Sig Dispensed Refills Start Date End Date insulin detemir U-100 Inject 16 Units 0 (LEVEMIR) Solution subcutaneously nightly. benztropine (COGENTIN) TAKE ONE TABLET BY MOUTH 3 07/05/2019 1 mg Tablet EVERY NIGHT ARISTADA 882 mg/3.2 mL INJECT INTRAMUSCULARLY 2 1 suspension,extended rel EVERY 4 WEEKS syring BYDUREON 2 mg/0.65 mL INJECT 2MG 3 06/27/2019 Pen Injector SUBCUTANEOUSLY ONCE A WEEK OLANZapine (ZYPREXA) 10 TAKE ONE TABLET BY MOUTH 2 06/21/2019 mg Tablet AT BEDTIME gabapentin (NEURONTIN) Take 300 mg by mouth 3 0 300 mg Capsule times daily. LYRICA 50 mg Capsule Take 50 mg by mouth 2 0 05/07 times daily. divalproex (DEPAKOTE) Take 2,000 mg by mouth 0 500 mg Tablet, Delayed daily. Release (E.C.) lancets Misc by [facility].(Non-Drug; Combo 0 Route) route. Blood-Glucose Meter by Mis.(Non-Drug; Combo 0 Misc Route) route. ARIPiprazole (ABILIFY Inject 2 mLs into the 1 each 0 MAINTENA) 400 mg muscle every 30 days. Suspension,Sust.Release Recon levothyroxine Take by mouth daily. 0 (SYNTHROID) 25 mcg Indications: unknown TabletIndications: dose unknown dose documented as of this encounter Progress Notes Kelsey Hernandez RN - 09/17/2019 11:00 AM EST Discharge instructions and medications reviewed with patient and escort. All questions answered and written copy sent home with patient. Pt eating and drinking without difficulty. Voided prior to discharge and was incontinent of urine aswell. Patient ambulated to car for discharge accompanied by [facility] staff member. Shital Lemon RN - 09/17/2019 8:20 AM EST Patient very sleepy pre-op. She states that her medications make her this way. Awakens easily when spoken to. documented in this encounter H&P Notes Corby Curry MD - 09/17/2019 7:15 AM EST Patient Name: Shaneka Samano Patient Age: 39 y.o. Birthdate: 1980 Admit date: 09/17/2019 Attending Physician: Corby Curry MD Ht 160 cm (5' 3) Wt 88.5 kg (195 lb) BMI 34.54 kg/m?? Heart: RRR. No murmurs Lungs: Clear to auscultation Deflated implant left Shaneka Samano is a 38 y.o. female patient who is here in consultation for complications with her left breast implant. The patient had an implant placed in her left breast to improve breast asymmetry and the implant has deflated. The patient has scar contracture around the implant and I advised her that surgical intervention and removal of the implant is recommended. Risk, benefits, alternative, complications of the procedure to include anesthesia plan and recovery were discussed with the patient, including but not limited to infection, bleeding, hematoma, seroma, scar formation and need for further and future surgery and informed consent obtained. We discussed the fact that she will be asymmetric and that insurance would not cover the placement of a new implant nor given her history of diabetes and additional medical issues I would not recommend placement of another implant. She understandsthis and would like to proceed with informed signed consent. ?? documented in this encounter Miscellaneous Notes Brief Op Note - Corby Curry MD - 09/17/2019 10:17 AM EST Brief Operative Note Patient Name: Shaneka Samano : [id number] MR#: [id number] Case Date: 09/17/2019 Surgeon: Surgeon(s) and Role: * Corby Curry MD - Primary * Mac Lorenzo MD - Resident Preoperative diagnosis: implant deflation/leakage left breast Postoperative diagnosis: implant leakage left breast Procedure(s) (LRB): REMOVAL OF MAMMARY IMPLANT MATERIAL ([facility] 8.54) (Bilateral) Anesthesia: General Findings: Saline implant leakage left breast Complications: none Intake: minimal Output: Estimated Blood Loss: 5cc Drains: x 1 #10 Round Specimens removed during surgery: None except leaking saline implant Disposition: awakened from anesthesia, extubated and taken to the recovery room in a stable condition, having suffered no apparent untoward event. Condition: doing well without problems Attestation: Case Date: 09/17/2019 I was present for the entire procedure and performed all of the allen elements of this procedure. Corby Curry MD (Please see the Surgical Encounter Summary for any Implant and Specimen details pertinent to this patient.) Post Op Plan: 5-7 days: Drain removal in based on nursing assessment 7-10 days: Return for wound check, Nosuture removal: resorbable , give patient pathology report, cheryl bra fitting, review post-op activity restrictions 6 months: [facility] f/u with surgeon Future Appointments Date Time Provider Department Center 09/25/2019 11:00 AM NURSE, PLASTIC SURGERY [facility] 4[facility] Op Note - Corby Curry MD - 09/17/2019 10:12 AM EST [facility] Operative Note Patient Name: Shaneka Samano : [id number] MR#: [id number] Case Date: 09/17/2019 Surgeon: Surgeon(s) and Role: * Corby Curry MD - Primary * Mac Lorenzo MD - Resident Preoperative diagnosis: implant deflation left breast Postoperative diagnosis: implant deflation left breast Procedure(s) (LRB): REMOVAL OF MAMMARY IMPLANT MATERIAL ([facility] 8.54) (Bilateral) Anesthesia: General Estimated Blood Loss: 5cc Specimens removed during surgery: None except implant Drains: Drain/Device Site 09/17/19 Left breast collapsible closed device (Active) Drainage Amount scant 09/17/2019 10:00 AM Disposition: awakened from anesthesia, extubated and taken to the recovery room in a stable condition, having suffered no apparent untoward event. Condition: doing well without problems (Please see the Surgical Encounter Summary for any Implant and Specimen details pertinent to this patient.) HPI/Surgical Indications: Shaneka Samano is a 38 y.o. female patient who was seen consultation for complications with her left breast implant. The patient had an implant placed in her left breast to improve breast asymmetryand the implant has deflated or decreased in size with capsular contracture. The patient has scar contracture around the implant and I advised her that surgical intervention and removal of the implant is recommended. Risk, benefits, alternative, complications of the procedure to include anesthesia plan and recovery were discussed with the patient, including but not limited to infection, bleeding, hematoma, seroma, scar formation and need for further and future surgery and informed consent obtained. We discussed the fact that she will be asymmetric and that insurance would not cover the placement ofa new implant nor given her history of diabetes and additional medical issues I would not recommend placement of another implant. She understands this and would like to proceed either way photos were obtained today with informed signed consent. ?? Procedure Description: Following the adequate action of general LMA anesthesia the patient was prepped and draped in the usual sterile fashion. We discussed using a left inframammary incision as it would make it more simple to remove the implant rather than going through the area [place] scar which she had had previously with amastopexy. We felt that this would decrease the likelihood of potential infection and interruption of the breast ducts. She understood and agreed to this. After the instillation of 10 cc of 1% lidocaine 1-200,000 epinephrine an incision measuring 3.5 cm made just above the inframammary fold. Direct dissection was taken down through the breast parenchyma to the submuscular pocket. The implant was identified and removed. This was inspected and there was evidence of leakage and tissue inside the implant which was concerning. The entirety of the implant was removed copious irrigation was performed. Thecapsule was soft and therefore not stripped as this was very thin. An open capsulotomy was performed. A 10 round drain was placed and brought through separate stab incision. This was closed with 4-0 Arun ryl followed by 5-0 Vicryl followed by a 5-0 Monocryl followed by a 5-0 fast absorb suture in interrupted fashion. Mastisol Steri-Strips were applied. Quarter percent Marcaine was infiltrated in the incision and around the breast for a total of 10 cc. The patient tolerated this well. There are no problems complications. The anesthesia was reversed. Patient was then taken recovery in stable condition. Attestation: Case Date: 09/17/2019 I was present for the entire procedure and performed all of the allen elements of this procedure. CORBY CURRY MD 09/17/2019 documented in this encounter Plan of Treatment Not on filedocumented as of this encounter Procedures Procedure Name Priority Date/Time Associated Comments Diagnosis POCT FINGERSTICK Routine 09/17/2019 11:03 Results for this GLUCOSE AM EST procedure are i n the results section. REMOVAL OF MAMMARY 09/17/2019 8:58 AM implant deflatio n IMPLANT MATERIAL EST left breast (WRVU 8.54) documented in this encounter Results (ABNORMAL) POCT Fingerstick Glucose (09/17/2019 11:03 AM EST) P athologist Signature POC Glucose 281 (A) 60 - 199 mg/dl Specimen (Source) Anatomical Collection Method Collection Time Re ceived Time Location / / Volume Laterality 09/17/2019 11:03 AM EST Corby Curry MD POINT OF CARE TEST ORDERABLE S documented in this encounter Visit Diagnoses Not on filedocumented in this encounter Administered Medications Inactive Administered Medications - up to 3 most recent administrations Medication Order MAR Action Action Date Dose Rate Site acetaminophen (Tylenol) (32.02 mg/mL) or al liquid 650 mg 650 mg, Oral, EVERY 4 HOURS PRN, Startin g on Tue09/17/19 at 0808, Until Tue09/17/19 at 1336, Fever, Maximum dose of acetaminophen is 4000 mg from all sources in 24 hours. Should be given concomitantly if other Analgesi cs are ordered., Routine acetaminophen (Tylenol) tablet 1,000 mg Given 09/17/2019 8:12 AM EST 1,000 mg 1,000 mg, Oral, EVERY 6 HOURS PRN, Starting on Tue09/17/19 at 0737, Until Tue09/17/19 at 1336, Pain, Maximum dose of acetaminophen is 4000 mg from all sources in 24 hours., Routine BUpivacaine (PF) (MARCAINE) 0.25 % (2.5 Given 09/17/2019 9:30 AM EST 101 mLs mg/mL) injection ONCE PRN, Starting on Tue09/17/19 at 0930, Until Tue09/17/19 at 1336, Intra-Operative (Intra-Procedure), Routine gabapentin (Neurontin) capsule 300 mg Given 09/17/2019 8:13 AM EST 300 mg 300 mg, Oral, 3 TIMES DAILY, First dose on Tue09/17/19 at 0900, Until Discontinued, Routine lactated ringers infusion New Bag 09/17/2019 7:51 AM EST 1,000 mLs 100 mL/hr 1,000 mL, at 100 mL/hr, Intravenous, CONTINUOUS, Starting on Tue09/17/19 at 0730, Until Tue09/17/19 at 1131, Day of Surgery (Day of Procedure) lidocaine-EPINEPHrine 1 Given 09/17/2019 9:16 AM 10 mLs 19- Surgical Site %-1:100,000 injection EST ONCE PRN, Starting on Tue09/17/19 at 0916, Until Tue09/17/19 at 1336, Intra-Operative (Intra-Procedure), Routine documented in this encounter Active and Recently Administered Medications Times are shown in EST. Scheduled Medication Order 09/15/2019 09/16/2019 09/17/2019 ceFAZolin (ANCEF) 2g in dextrose 5% 100 mL (COMPLETED) 904 (Given - Provider: Tayla Hernández CRNA) 2 g, Intravenous, ONCE, 1 dose, 09/17 at 0815, Administer over 30 Minutes, Day of Surgery (Day of Procedure), Indication for (Active or Suspected): Prophylaxis gabapentin (Neurontin) capsule 300 mg 812 (Given - Provider: Shital Lemon, AKASH) 300 mg, Oral, 3 TIMES DAILY, First dose on Tue09/17/19 at 0900, Until Discontinued, Routine Continuous Medication Order 09/15/2019 09/16/2019 09/17/2019 lactated ringers infusion (CANCELED) 0751 (New Bag - Provider: Delia Gutierrez RN) 1,000 mL, at 100 mL/hr, Intravenous, CON TINUOUS, Starting Tue09/17/19 at 0730, Until Tue09/17/19 at 1131, Day of Surgery (Day of Procedure) PRN Medication Order 09/15/2019 09/16/2019 09/17/2019 acetaminophen (Tylenol) (32.02 mg/mL) oral liquid 650 mg 650 mg, Oral, EVERY 4 HOURS PRN, Startin g Tue09/17/19 at 0808, Until Tue09/17/19 at 1336, Fever, Maximum dose of acetaminophen is 4000 mg from all sources in 24 hours. Should be given concomitantly if other Analgesics are ordered., Routine acetaminophen (Tylenol) tablet 1,000 mg 08 (Given - Provider: Shital Lemon, AKASH) 1,000 mg, Oral, EVERY 6 HOURS PRN, Start ing Tue09/17/19 at 0737, Until Tue09/17/19 at 1336, Pain, Maximum dose of acetaminophen is 4000 mg from all sources in 24 hours., Routine BUpivacaine (PF) (MARCAINE) 0.25 % (2.5 mg/mL) injection (CANCEL ED) 0930 (Given - Provider: Corby Curry MD) ONCE PRN, Starting Tue09/17/19 at 0930, Until Tue09/17/19 at 1336, Intra- Operative (Intra-Procedure), Routine lidocaine-EPINEPHrine 1 %-1:100,000 injection (CANCELED) 0916 (Given - Provider: Corby Curry MD) ONCE PRN, Starting Tue09/17/19 at 0916, Until Tue09/17/19 at 1336, Intra- Operative (Intra-Procedure), Routine documented in this encounter Care Teams Tying In Machine Operator Relationship Specialty Start Date End Date Lidia Benson APRN PCP - General Family Medicine 09/14/19 [place] [address] documented as of this encounter
--- OUTSIDE RECORDS SUMMARY | 2022-07-23 00:55 | XMS_ITS | Encounter Summary ---
:1980 Author Organization [facility] Address [place] [id number] Care Team Providers Name Role Phone Lidia Benson APRN Primary Care Provider Reason for Visit Auth/Cert Specialty Diagnoses / Procedures Referred By Contact Refer red To Contact Diagnoses implant deflation left breast Procedures PRO REMOVAL OF BREAST IMPLANT PRO REMOVAL OF BREAST CAPSULE REMOVAL OF INTACT MAMMARY IMPLANT (WRVU 6.48) BREAST, PERIPROSTHETIC CAPSULECTOMY (WRVU 10.62) Referral ID Status Reason Start Date Expiration Date Visits Requ ested Visits Authorized [id number] 1 1 Encounter Details Date Type Department Care Team Description 09/17/2019 Hospital Encounter Outpatient Surgery Jese Curry ph H, [facility] [place] [address] [place] [address] [phone] Social History Tobacco Use Types Packs/Day Years [...] Sign Reading Time Taken Comments Blood Pressure 134/79 09/17/2019 11:15 AM EST Pulse 89 09/17/2019 11:15 AM EST Temperature 35.9 ??C (96.6 ??F) 09/17/2019 9:49 AM EST Respiratory Rate 16 09/17/2019 11:15 AM EST Oxygen Saturation 92% 09/17/2019 11:15 AM EST Inhaled Oxygen Concentration - - [...] closest emergency room or call the hospital bottoming machine operator at [phone] and ask for physician engineering inspection assistant covering for your physician. Questions or problems after 5pm or on a weekend: Call the [facility] bottoming machine operator at and ask for the physician engineering inspection assistant covering for your doctor. Patient InstructionsCheri Braxton, HOSPITAL AIDES AND ASSISTANTS TEACHER - 09/17/2019 10:37 AM EST Images from the original note were not included. Discharge instructions: ?? The healing process after breast reduction surgery varies with each person. You should expect to feel tired for the first 2 - 3 weeks due to anesthesia and the healing process. Rest often during theday and get a good night sleep. Pain (short term and termite control servicer) ?? With any surgery there is some [...] scheduling, please contact our administrative offices at [phone] ?? For clinical questions, please call our nurses at [phone] ?? Both offices are open Tuesday thru Tuesday 8a - 5p. With emergencies after hours, call the hospitaloperator at [phone] and ask for the Plastic Surgery Resident engineering inspection assistant. [facility] DRAIN CARE INSTRUCTIONS General Information: Drains [...] Center 09/25/2019 11:00 AM NURSE, PLASTIC SURGERY [address] documented in this encounter Medications at Time [...] Delayed daily. Release (E.C.) lancets Misc by Misc.(Non-Drug; Combo 0 Route) route. Blood-Glucose Meter by Misc.(Non-Drug; Combo 0 Misc Route) route. ARIPiprazole (ABILIFY [...] Operative Note Patient Name: Shaneka Samano : [id number] MR#: [id number] Case Date: 09/17/2019 Surgeon: Surgeon(s) and Role: [...] fitting, review post-op activity restrictions 6 months: intermediate f/u with surgeon Future Appointments Date Time Provider Department Center 09/25/2019 11:00 AM NURSE, PLASTIC SURGERY [facility] PLAS 4M [facility] Op Note - Corby Curry MD - 09/17/2019 10:12 AM EST [facility] Operative Note Patient Name: Shaneka Samano : [id number] MR#: [id number] Case Date: 09/17/2019 Surgeon: Surgeon(s) and Role: [...] implant rather than going through the area Gotham scar which she had had previously with [...] from all sources in 24 hours., Routine gabapentin (Neurontin) capsule 300 mg Given 09/17/2019 8:13 AM EST 300 mg 300 mg, Oral, 3 TIMES DAILY, First dose on Tue09/17/19 at 0900, Until Discontinued, Routine lactated ringers infusion New Bag 09/17/2019 7:51 AM EST 1,000 mLs 100 mL/hr 1,000 mL, at 100 mL/hr, Intravenous, CONTINUOUS, Starting on Tue09/17/19 at 0730, Until Tue09/17/19 at 1131, Day of Surgery (Day of Procedure) documented in this encounter Active and Recently [...] Suspected): Prophylaxis gabapentin (Neurontin) capsule 300 mg 08 (Given - Provider: Shital Lemon RN) 300 mg, Oral, 3 TIMES DAILY, First dose on Tue09/17/19 at 0900, Until Discontinued, Routine Continuous Medication Order 09/15/2019 09/16/2019 09/17/2019 lactated ringers infusion (CANCELED) 0751 (New Bag - Provider: Delia Uriostegui V RN) 1,000 mL, at 100 mL/hr, Intravenous, [...] ordered., Routine acetaminophen (Tylenol) tablet 1,000 mg 0812 (Given - Provider: Shital Lemon RN) 1,000 mg, Oral, EVERY 6 HOURS PRN, [...] Routine documented in this encounter Care Teams Staff Sonographer Relationship Specialty Start Date End Date Lidia Benson APRN PCP - General Family Medicine 09/14/19 [place] [address] documented as of this encounter
--- OUTSIDE RECORDS SUMMARY | 2022-07-23 00:55 | XMS_ITS | Encounter Summary ---
:1980 Author Organization [facility] [place] [address] Care Team Providers Name Role Phone Lidia Benson APRN Primary Care Provider Encounter Details Date Type Department Care Team Description 02/23/2019 Telephone [place]ology [place] [facility] [place] [address] Social History Tobacco Use Types Packs/Day Years Used Date Smoking Tobacco: Some Days Cigarettes 0.5 1 Smokeless Tobacco: Never Alcohol Use Standard Drinks/Week Comments No 0 (1 standard drink = 0.6 oz pure alcoho l) Sex Assigned at Date Recorded Not on file documented as of this encounter Miscellaneous Notes Telephone Encounter - Filomena Leyva Verna - 02/23/2019 11:53 AM EDT Shaneka Samano [id number] Diagnosis: EGD/ COLO 1. Have you ever had a EGD/colonoscopy before? [] YES [x] NO If Yes, Date of Last EGD/[place]: If yes, did you have any problems with the procedure? [] YES [x] NO Explain: What type of sedation was used: 2. Do you take any Blood Thinners? [] YES [x] NO If Yes, type: 3. Do you have a Pacemaker or Defibrillator device? [] YES [x] NO If Yes send [employer] message to [employer] ENDO DEVICE CHECK 4. Are you a diabetic? [] YES [x] NO If yes, controlled by meds or diet? 5. Do you have any Allergies to Eggs, Latex or Medications? [x] YES [] NO If Yes, what:_Percocet 6. Do you take any Oral Iron Supplements (Including multi vitamins)? [] YES [x] NO 7. Do you have a history of three or more abdominal surgeries? [] YES [x] NO 8. Have you had a problem with sedation or anesthesia? [] YES [x] NO 9. Do you have a c-pap machine or oxygen tank? [] C-PAP [] Oxygen [x] NO 10. Do you take prescription narcotic pain medications? [] YES [x] NO 11. You must have a responsible green party stay at the facility during your procedure and drive you home? [x] YES 12. Is there any other information you would like to give us to aid in scheduling? Height: __5'3___ Weight:_195__ BMI: _34.5___ Age:38 y.o. documented in this encounter Plan of Treatment Not on filedocumented as of this encounter Visit Diagnoses Not on filedocumented in this encounter Care Teams Sales Consulting Director Relationship Specialty Start Date End Date Lidia Benson APRN PCP - General Family Medicine 02/28/18 08/23/19 [place] [address] documented as of this encounter
--- OUTSIDE RECORDS SUMMARY | 2022-07-23 00:55 | XMS_ITS | Encounter Summary ---
:1980 Author Organization [facility] [place] [address] Care Team Providers Name Role Phone Lidia Benson APRN Primary Care Provider Encounter Details Date Type Department Care Team Description 10/05/2019 Telephone Gastroenterology at [facility] [place] [address] Social History Tobacco Use Types Packs/Day Years Used Date Smoking Tobacco: Every Day Cigarettes 0.5 1 Smokeless Tobacco: Never Comments: smokes 1-2 cigarettes a day Alcohol Use Standard Drinks/Week Comments No 0 (1 standard drink = 0.6 oz pure alcoho l) Sex Assigned at Date Recorded Not on file documented as of this encounter Miscellaneous Notes Telephone Encounter - Alannah Bowles - 10/05/2019 2:49 PM EST Called pt because we received a referral for her to be seen, but she is a current pt of Jimmy Calvillo. Offering to help pt schedule a follow up with Laci. Ana for call back. documented in this encounter Plan of Treatment Not on filedocumented as of this encounter Visit Diagnoses Not on filedocumented in this encounter Care Teams Instrument Setter Relationship Specialty Start Date End Date Lidia Benson APRN PCP - General Family Medicine 09/14/19 [place] [id number] documented as of this encounter
--- OUTSIDE RECORDS SUMMARY | 2022-07-23 00:55 | XMS_ITS | Encounter Summary ---
:1980 Author Organization [facility] [place] [address] Care Team Providers Name Role Phone Lidia Benson APRN Primary Care Provider Encounter Details Date Type Department Care Team Description 12/06/2019 Telephone Neurosurgery at [facility] [place] [place] [address] Social History Tobacco Use Types Packs/Day Years Used Date Smoking Tobacco: Every Day Cigarettes 0.5 1 Smokeless Tobacco: Never Comments: smokes 1-2 cigarettes a day Alcohol Use Standard Drinks/Week Comments No 0 (1 standard drink = 0.6 oz pure alcoho l) Sex Assigned at Date Recorded Not on file documented as of this encounter Miscellaneous Notes Telephone Encounter - Savana White - 12/27/2019 8:14 AM EDT [facility] return 2nd request fax back informing images were sent on 12/19/2019 MRI Head completed 03/06/19 uploaded 12/26/2019 Images are in eDH for JPA review ~~~~~~~~~~~~~~~~~~~~~~~~~~~~~~~~~~~~~~~~~~~~~~ Dr. Galindo, MRI Head completed 03/06/19 at [facility] is in eDH for your review. Pt was scheduled w Dr. Hewitt for a 5/5 appt but has since declined appt. Thank you. Jade Telephone Encounter - Savana White - 12/26/2019 3:59 PM EDT Faxed 2nd request for MRI Brain to [facility] [[phone]] Telephone Encounter - Yokasta Hollingsworth - 12/26/2019 10:32 AM EDT Imaging not received, need to refax request. Telephone Encounter - Yokasta Hollingsworth - 12/19/2019 1:29 PM EDT Faxed image request to [facility] ([phone]). Postponing to allow time for processing. Telephone Encounter - Savana White - 12/06/2019 3:17 PM EDT ----- Message from Ankur Galindo MD sent at 12/06/2019 12:03 PM EDT ----- Need to obtain MRI images from [facility] (MRI brain), and then has been referred to rad onc. documented in this encounter Plan of Treatment Not on filedocumented as of this encounter Visit Diagnoses Not on filedocumented in this encounter Care Teams Electrical Machinist Relationship Specialty Start Date End Date Lidia Benson APRN PCP - General Family Medicine 09/14/19 [address] [place] [address] documented as of this encounter
--- OUTSIDE RECORDS SUMMARY | 2022-07-23 00:55 | XMS_ITS | Encounter Summary ---
:1980 Author Organization [facility] [address] Care Team Providers Name Role Phone Lidia Benson APRN Primary Care Provider Reason for Referral Consultation (Routine) - Authorized Specialty Diagnoses / Procedures Referred By Contact Refer red To Contact Gastroenterology Diagnoses Nonalcoholic steatohepatitis METZGER Marcio Lovelace MD [facility] Gastro 4l [address] [place] [place] [address] [address] [place] [address] Fax: Referral ID Status Reason Start Expiration Visits Visits Date Date Requested Authorized [id number] Authorized Consult, 03/11/2022 03/11/2023 6 6 Test & Treat PCP Updated and/or Approved Encounter Details Date Type Department Care Team Description 03/11/2022 Transcribe Orders eDH Incoming Marcio Lovelace M D Nonalcoholic Referrals [address] steatohepatitis [phone] [place] [address] Social History Tobacco Use Types Packs/Day Years Used Date Smoking Tobacco: Every Day Cigarettes 0.5 1 Smokeless Tobacco: Never Comments: smokes 1-2 cigarettes a day Alcohol Use Standard Drinks/Week Comments No 0 (1 standard drink = 0.6 oz pure alcoho l) Sex Assigned at Date Recorded Not on file documented as of this encounter Plan of Treatment Scheduled Referrals Name Type Priority Associated Diagnoses Order S chedule Referral to Outpatient Routine Nonalcoholic Ordered: Gastroenterology Referral steatohepatitis 03/11/20 22 documented as of this encounter Visit Diagnoses Diagnosis Nonalcoholic steatohepatitis Other chronic nonalcoholic liver disease documented in this encounter Care Teams General Utility Maintenance Repairer Relationship Specialty Start Date End Date Lidia Benson APRN PCP - General Family Medicine 09/14/19 [address] [place] [address] documented as of this encounter
--- OUTSIDE RECORDS SUMMARY | 2022-07-23 00:55 | XMS_ITS | Encounter Summary ---
:1980 Author Organization [facility] [place] [address] Care Team Providers Name Role Phone Lidia Benson APRN Primary Care Provider Encounter Details Date Type Department Care Team Description 03/06/2019 Ancillary Procedure [facility] [address] [place] [phone] (Wo rk) Social History Tobacco Use Types [...] Associated Diagnosis Comme nts FILM LIBRARY Routine 03/06/2019 12:00 AM Results for this STORAGE ONLY MR EDT procedure ar e in HEAD the results section. documented in this encounter Results Film Library- Storage Only MR Head (03/06/2019 12:00 AM EDT) Specimen (Source) Anatomical Location Collection Method / Collectio n Time Received Time / Laterality Volume Narrative [facility] - 12/26/2019 5:08 PM EDT This exam is auto-finalizing. It's purpo se is for storage only. Lidia Benson APRN [facility] FILM LIBRARY ORDERABLES Performing Organization Address City/State/ZIP Code Phon e Number [facility] [place], [place] documented in this encounter Visit Diagnoses Not on filedocumented in this encounter Care Teams Gin Operator Relationship Specialty Start Date End Date Lidia Benson APRN PCP - General Family Medicine 02/28/18 08/23/19 [address] [facility] [address] documented as of this encounter
--- OUTSIDE RECORDS SUMMARY | 2022-07-23 00:55 | XMS_ITS | Encounter Summary ---
:1980 Author Organization [place] [address] Care Team Providers Name Role Phone Lidia Benson APRN Primary Care Provider Reason for Visit Reason Comments Follow Up Surgery s/p left breast implant cortney simon with capsulectomy Encounter Details Date Type Department Care Team Description 09/27/2019 Clinical Support [facility]astic Surgery at [facility] [place] [address] Social History Tobacco Use Types Packs/Day Years Used Date Smoking Tobacco: Every Day Cigarettes 0.5 1 Smokeless Tobacco: Never Comments: smokes 1-2 cigarettes a day Alcohol Use Standard Drinks/Week Comments No 0 (1 standard drink = 0.6 oz pure alcoho l) Sex Assigned at Date Recorded Not on file documented as of this encounter Patient Instructions Patient InstructionsAurelia Hernández RN - 09/27/2019 2:00 PM EST Signs of Infection : A temperature over 100.4 F or 38 C. Redness at the incision line that is beginning to spread away from the incision after the first 48 hours. Yellow pus-like or foul smelling drainage larger than a dime size from the incision or drain sites. Increased pain / discomfort that is not relieved by your pain medicine such as extra strength tylenol, or NSAIDS For any of these symptoms please call our nurse's line at [phone] M - F 8 - 5 For after hours, and on weekends; Call [phone] and ask for our plastic surgeon radiosonde specialist documented in this encounter Progress Notes Aurelia Hernández RN - 09/27/2019 2:00 PM EST Reason for Visit: Postoperative Evaluation s/p Case Date: 09/17/2019 ?? Surgeon: Surgeon(s) and Role: * Corby Curry MD - Primary * Mac Lorenzo MD - Resident ?? Preoperative diagnosis: implant deflation/leakage left breast ?? Postoperative diagnosis: implant leakage left breast ?? Procedure(s) (LRB): REMOVAL OF MAMMARY IMPLANT MATERIAL (WRVU 8.54) (Bilateral) ?? POD # 10 Shaneka is here for an incision check and drain removal. Subjective: Shaneka states she has no discomfort. Objective: Left breast Bruising: none Swelling: mild Sutures absorbable,incision well approximated, steri-strips applied after wound care wash. Assessment: No signs of delayed healing,erythema,or fluid collection.Incisions CDI. Plan: We reviewed signs and symptoms of infection, spitting sutures, parameters for normal post op swelling and bruising. We reviewed correct phone numbers to call us for concerns. Shaneka expressed understanding of instructions,and agrees with the plan of care. Follow up in 3 months or sooner with Dr. Curry . documented in this encounter Plan of Treatment Not on filedocumented as of this encounter Visit Diagnoses Diagnosis Surgery follow-up Follow-up examination, following unspeci fied surgery documented in this encounter Care Teams Therapeutic Radiologist Relationship Specialty Start Date End Date Lidia Benson APRN PCP - General Family Medicine 09/14/19 [facility] [address] documented as of this encounter
--- OUTSIDE RECORDS SUMMARY | 2022-07-23 00:55 | XMS_ITS | Encounter Summary ---
:1980 Author Organization [facility] [address] Care Team Providers Name Role Phone Lidia Benson APRN Primary Care Provider Encounter Details Date Type Department Care Team Description 12/08/2018 Notes Only Otolaryngology Cher Osman MD [facility] [place] [address] OTOLARYNGOLGY DEPT [phone] [place], [place] [address] (Wo rk) Social History Tobacco Use Types Packs/Day Years Used Date Smoking Tobacco: Some Days Cigarettes 0.5 1 Smokeless Tobacco: Never Alcohol Use Standard Drinks/Week Comments No 0 (1 standard drink = 0.6 oz pure alcoho l) Sex Assigned at Date Recorded Not on file documented as of this encounter Progress Notes Cher Osman MD - 12/08/2018 3:03 PM EDT Called by transfer center regarding patient who has history of schizophrenia and developmental delayand presented after she thought there was an oral foreign body and try to remove it by poking herself with a lobster fork in the left soft palate and then she presented 4 days after that to the emergency department on November 12, 2018. At that time she saw the emergency department and they noticed a laceration and discharged her on clindamycin. She then saw an oral surgeon on November 19 and was prescribed Peridex. She came today because on December 04 she did the same thing and poked herself with a lobster fork in the left soft palate. In the emergency department the ED physician told me that she has a 2 cm laceration soft palate with some likely granulation tissue but no trismus or no fevers or no white count. CT scan was done which might be pertinent for a small foreign body and some palatal swelling. I recommended that they do Peridex for 2 weeks and discharge her on antibiotics such as Augmentin forat least 10 days and the ED will have her follow-up with local ENT on upcoming Tuesday. No indicationfor foreign body removal. I reviewed the scan with the on-call attending Dr. Alan Longo. Cher Osman MD documented in this encounter Plan of Treatment Not on filedocumented as of this encounter Visit Diagnoses Not on filedocumented in this encounter Care Teams Kitchen Stewardess Relationship Specialty Start Date End Date Lidia Benson APRN PCP - General Family Medicine 02/28/18 08/23/[address] [place] [address] [place] [address] documented as of this encounter
--- OUTSIDE RECORDS SUMMARY | 2022-07-23 00:55 | XMS_ITS | Encounter Summary ---
:1980 Author Organization [facility] [place] [address] Care Team Providers Name Role Phone Lidia Benson APRN Primary Care Provider Reason for Visit Reason Comments Advice Only breast implant complications left breast Encounter Details Date Type Department Care Team Description 07/13/2019 Office Visit Plastic Surgery at Corby Curry MD Complication of breast [facility] implant, initial [facility] DR mainor Leiva PLASTIC SURGERY [place] [id number] [phone] [phone] [phone] Social History Tobacco Use Types Packs/Day Years [...] Sign Reading Time Taken Comments Blood Pressure - - Pulse - - Temperature - - Respiratory Rate - - Oxygen Saturation - - Inhaled Oxygen Concentration - - Weight 89.7 kg (197 lb 12.8 oz) 07/13/2019 10:30 AM EST Height 163.8 cm (5' 4.5) 07/13/2019 10:30 AM EST Body Mass Index 33.43 07/13/2019 10:30 AM EST documented in this encounter Patient Instructions Patient Elysia Montero RN - 07/13/2019 10:30 AM EST You were given written and verbal preoperative instructions today. Patient was advised to: 2 months prior to surgery Stop smoking and remain tobacco free for at least 2 months prior to and for 1 month after surgery 1 month prior to surgery: Stop nicotine patches, electronic cigarettes and/or gum and continue for 2 weeks after surgery and You will be tested for Nicotine the day of surgery. If tested positive, your surgery will be cancelled. 2 weeks prior to surgery: Stop taking aspirin & ibuprofen type products and Stop vitamin E, Garlic supplements, Ginseng, Fish oil tablets, Ginkgo and [place]'s Wort. May resume 48 hours after surgery 3 days before surgery: Do not shave near your surgical site 1 day before surgery: Shower the night before and the morning of your surgery using an antibacterial soap (Dial or Lever 2000) or Hibiclens that was provided Photos Taken: Yes with iPad To prepare for your upcoming surgery, please review the Pre-Operative Instruction brochure that you were given at today's appointment. Feel free to call our office [phone] if you have any nursing questions or concerns. We monitor the phones from 8-5 Tuesday through Tuesday. Expect a call from the Same Day Dept the business day before surgery to go over your list of medications and instruct you on arrival time, and when to stop eating and drinking. For questions pertaining to your surgery date or time please call Alannah at [phone]. documented in this encounter Progress Notes Corby Curry MD - 07/13/2019 10:30 AM EST Plastic Surgery Consultation Note Corby Curry MD. PCP: Lidia Benson APRN CC: Breast implant complications HPI: Shaneka Samano is a 38 y.o. female here in consultation for complications with her breast implants. Patient is unaccompanied for today's visit. She reports that she has a deflated implant and it has been this way for several years. She reports that she has diabetes and liver disease. She onlyhas one implant in and had it placed to improve asymmetry. She reports that it is a saline implant. Past Medical History: Diagnosis Date ??? Diabetes mellitus ??? Hypothyroidism ??? Schizophrenia No past surgical history on file. Social History Socioeconomic History ??? Marital status: Single Spouse name: Not on file ??? Number of children: Not on file ??? Years of education: Not on file ??? Highest education level: Not on file Occupational History ??? Not on file Social Needs ??? Financial resource strain: Not on file ??? Food insecurity: Worry: Not on file Inability: Not on file ??? Transportation needs: Medical: Not on file Non-medical: Not on file Tobacco Use ??? Smoking status: Current Some Day Smoker Packs/day: 0.50 Years: 1.00 Pack years: 0.50 Types: Cigarettes ??? Smokeless tobacco: Never Used Substance and Sexual Activity ??? Alcohol use: No ??? Drug use: No ??? Sexual activity: Never Partners: Male control/protection: Surgical Lifestyle ??? Physical activity: Days per week: Not on file Minutes per session: Not on file ??? Stress: Not on file Relationships ??? Social connections: Talks on phone: Not on file Gets together: Not on file Attends congregation service: Not on file Active member of club or organization: Not on file Attends meetings of clubs or organizations: Not on file Relationship status: Not on file ??? Intimate partner violence: Fear of current or ex partner: Not on file Emotionally abused: Not on file Physically abused: Not on file Forced sexual activity: Not on file Other Topics Concern ??? Not on file Social History Narrative Merged History Encounter Allergies Allergen Reactions ??? Percocet [Oxycodone-Acetaminophen] ??? Percocet [Oxycodone-Acetaminophen] Patient cannot remember reaction, but states it was mild Current Outpatient Medications on File Prior to Visit Medication Sig Dispense Refill ??? empagliflozin (JARDIANCE) 25 mg Tablet Take 25 mg by mouth daily. ??? LYRICA 50 mg Capsule Take 50 mg by mouth 2 times daily. ??? divalproex (DEPAKOTE) 500 mg Tablet, Delayed Release (E.C.) Take 2,000 mg by mouth daily. ??? dicyclomine (BENTYL) 10 mg Capsule Take 1 capsule by mouth 4 times daily as needed. 120 capsule 3 ??? lancets Misc by Misc.(Non-Drug; Combo Route) route. ??? Blood-Glucose Meter Misc by Misc.(Non-Drug; Combo Route) route. ??? ARIPiprazole (ABILIFY MAINTENA) 400 mg Suspension,Sust.Release Recon Inject 2 mLs into the muscle every 30 days. 1 each 0 ??? topiramate (TOPAMAX) 25 mg Capsule, Sprinkle Take 25 mg by mouth daily. ??? levothyroxine (SYNTHROID) 25 mcg Tablet Take by mouth daily. Indications: unknown dose No current facility-administered medications on file prior to visit. ROS: System Constitutional neg Eye neg ENT neg CV neg Resp neg GI neg neg Skin neg Allergy neg Endocrine neg Neurologic neg Musculoskeletal neg Lymph neg Psych neg Y N All other systems reviewed and negative. x Examination: There were no vitals taken for this visit. Constitutional: No acute distress Left scar contracture around implant. Anatomic Breast Measurements: Right Left Notch-nipple (cm) 21 cm 19 cm NAC (cm) 6.5 cm 6 cm Impression: Shaneka Samano is a 38 y.o. female [...] to infection, bleeding, hematoma, seroma, scar formation andneed for further and future surgery and informed consent obtained. We discussed the fact that she fer l be asymmetric and that insurance would not cover the placement of a new implant nor given her history of diabetes and additional medical issues I would not recommend placement of another implant. Sheunderstands this and would like to proceed either way photos were obtained today with informed signed consent. Plan: 1. Schedule for Surgery. Surgical Grid: Surgeon: Patricio Duration: 1.5 hours OSC Timeframe: Elective Procedure: Left Breast Implant Removal with Caspulectomy CPT: 76920, 59505 Surgical site: Breast Side: Left Anesthesia: General Follow up: 7-10 days NSO when JS in clinic PAT: H&P with PCP I, Najma Roberts, have performed the documentation for this encounter in the presence of and acting as a scribe for CORBY CURRY MD. I performed the services which were documented by the scribe, and I agree with the accuracy of the documentation in this encounter. CORBY CURRY MD documented in this encounter Plan of Treatment Not on filedocumented as of this encounter Visit Diagnoses Diagnosis Complication of breast implant, initial encounter documented in this encounter Care Teams Marble Installer Relationship Specialty Start Date End Date Lidia Benson APRN PCP - General Family Medicine 02/28/18 08/23/19 [address] [place] [address] documented as of this encounter
--- OUTSIDE RECORDS SUMMARY | 2022-07-23 00:55 | XMS_ITS | Encounter Summary ---
:1980 Author Organization [facility] [place] [address] Care Team Providers Name Role Phone Lidia Benson APRN Primary Care Provider Encounter Details Date Type Department Care Team Description 01/15/2019 Telephone [place] [facility] [place] [address] Social History Tobacco Use Types Packs/Day Years Used Date Smoking Tobacco: Some Days Cigarettes 0.5 1 Smokeless Tobacco: Never Alcohol Use Standard Drinks/Week Comments No 0 (1 standard drink = 0.6 oz pure alcoho l) Sex Assigned at Date Recorded Not on file documented as of this encounter Miscellaneous Notes Telephone Encounter - Eunice Joyner - 01/15/2019 10:05 AM EDT Shaneka Samano [phone] Diagnosis: hematochezia, abdominal pain 1. Have you ever had an egd/ colonoscopy before? [] YES [x] NO If Yes, Date of Last [place]: If yes, did you have any problems with the procedure? [] YES [] NO Explain: What type of sedation was used: 2. Do you take any Blood Thinners? [] YES [x] NO If Yes, type: 3. Do you have a Pacemaker or Defibrillator device? [] YES [x] NO If Yes send inMediamind message to [facility] END[facility] DEVICE CHECK 4. Are you a diabetic? [x] YES [] NO If yes, controlled by meds or diet? 5. Do you have any Allergies to Eggs, Latex or Medications? [x] YES [] NO If Yes, what: 6. Do you take any Oral Iron [...] NO 11. You must have a responsible alliance party stay at the facility during your procedure and drive you home? [x] YES 12. Is there any other information you would like to give us to aid in scheduling? Height: 5'3 Weight: 195 BMI: 34.5 Age:38 y.o. documented in this encounter Plan of Treatment Not on filedocumented as of this encounter Visit Diagnoses Not on filedocumented in this encounter Care Teams Manager Infusion Relationship Specialty Start Date End Date Lidia Benson APRN PCP - General Family Medicine 02/28/18 08/23/[place] [address] documented as of this encounter
--- OUTSIDE RECORDS SUMMARY | 2022-07-23 00:55 | XMS_ITS | Encounter Summary ---
:1980 Author Organization [facility] [place] [address] Care Team Providers Name Role Phone Lidia Benson APRN Primary Care Provider Reason for Visit Diagnostic Test (Routine) - Canceled Specialty Diagnoses / Procedures Referred By Contact Refer red To Contact Radiology Diagnoses Abnormal LFTs (liver function tests) Jimmy Calvillo PA [facility] Intervention[facility] Rad Procedures IR Biopsy Liver Percutaneous [facility] [place] [address] [place] [address] Fax: Referral ID Status Reason Start Expiration Visits Visits Date Date Requested Authorized [id number] Canceled Specialty 10/23/2018 10/23/2019 1 1 Service Requested Encounter Details Date Type Department Care Team Description 10/26/2018 Hospital Encounter Radiology at [facility] Katie Anne MD Pre-op testing [facility] [place] [address] GASTROENTEROLOGY [phone] [place], [place] [address] Social History Tobacco Use Types Packs/Day Years Used Date Smoking Tobacco: Some Days Cigarettes 0.5 1 Smokeless Tobacco: Never Alcohol Use Standard Drinks/Week Comments No 0 (1 standard drink = 0.6 oz pure alcoho l) Sex Assigned at Date Recorded Not on file documented as of this encounter Medications at Time of Discharge Medication Sig Dispensed Refills Start Date End Date LYRICA 50 mg Capsule Take 50 mg by 0 05/30/2018 mouth 2 times daily. divalproex (DEPAKOTE) 500 Take 2,000 mg by 0 05/07 mg Tablet, Delayed mouth daily. Release (E.C.) lancets Misc by [facility].(Non-Drug; 0 Combo Route) route. Blood-Glucose Meter Misc by [facility].(Non-Drug; 0 Combo Route) route. ARIPiprazole (ABILIFY Inject 2 mLs into 1 each 0 017 MAINTENA) 400 mg the muscle every Suspension,Sust.Release 30 days. Recon levothyroxine (SYNTHROID) Take by mouth 0 25 mcg TabletIndications: daily. unknown dose Indications: unknown dose empagliflozin (JARDIANCE) Take 25 mg by 0 09/14/2019 25 mg Tablet mouth daily. dicyclomine (BENTYL) 10 Take 1 capsule by 120 capsule 3 05/201807/13/2019 mg Capsule mouth 4 times daily as needed. topiramate (TOPAMAX) 25 Take 25 mg by 0 07/13/2019 mg Capsule, Sprinkle mouth daily. documented as of this encounter Progress Notes Eva Holman, AKASH - 10/24/2018 12:47 PM EST ANGIO NURSING DATABASE Name: SHANEKA LANDON Date of : 1980 AGE: 38 y.o. Address: [address] [place] [address] Dr Shima Gaona [facility] [address] (home) Mobile: Telephone Information: Referring Provider: Jimmy Calvillo REASON FOR VISIT: Reason for exam and clinical history: Abnormal LFTs, risk factors for METZGER, with low A1AT level and heterozygous carrier in a smoker, need to rule-out A1AT def liver involvement, also on multiple psychmeds, ?DILI Exam/Procedure requested: US-guided liver biopsy Is the patient ? No Is the patient on anticoagulant / anitplatelet therapy ? No Date/time of procedure:10/26/18 @1030 Pertinent info from Pre-call (if any): Labs ordered: PLT Meds stopped: none Allergies Allergen Reactions ??? Percocet [Oxycodone-Acetaminophen] ??? Percocet [Oxycodone-Acetaminophen] Patient cannot remember reaction, but states it was mild Pertinent PMH: Patient Active Problem List Diagnosis Code ??? Schizophrenia F20.9 ??? Fall W19.XXXA ??? Schizoaffective disorder F25.9 ??? Chronic diarrhea K52.9 ??? METZGER (nonalcoholic steatohepatitis) K75.81 ??? Cigarette smoker F17.210 ??? Restless leg syndrome G25.81 ??? Type 2 diabetes mellitus E11.9 ??? Obesity E66.9 ??? Hypothyroidism E03.9 ??? Amenorrhea N91.2 ??? Urinary frequency R35.0 ??? 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 Date/Procedure Meds given/comments None prior Laboratory Results: Lab Results Component Value Date INR 0.9 02/19/2017 Lab Results Component Value Date CREATININE 0.65 08/31/2018 Lab Results Component Value Date K 3.7 08/31/2018 Lab Results Component Value Date PLATELET 274 06/13/2018 Medications: Prior to Admission medications Medication Sig Start Date End Date Taking? Authorizing Provider empagliflozin (JARDIANCE) 25 mg Tablet Take 25 mg by mouth daily. PROVIDER, HISTORICAL LYRICA 50 mg Capsule Take 50 mg by mouth 2 times daily. 05/30/18 PROVIDER, HISTORICAL divalproex (DEPAKOTE) 500 mg Tablet, Delayed Release (E.C.) Take 2,000 mg by mouth daily. 06/01/18 PROVIDER, HISTORICAL dicyclomine (BENTYL) 10 mg Capsule Take 1 capsule by mouth 4 times daily as needed. 06/13/18 Angela Pizarro APRN lancets Misc by [facility].(Non-Drug; Combo Route) route. PROVIDER, HISTORICAL Blood-Glucose Meter Misc by [facility].(Non-Drug; Combo Route) route. PROVIDER, HISTORICAL ARIPiprazole (ABILIFY MAINTENA) 400 mg Suspension,Sust.Release Recon Inject 2 mLs into the muscle every 30 days. 03/03/17 Deshaun Noble MD topiramate (TOPAMAX) 25 mg Capsule, Sprinkle Take 25 mg by mouth daily. PROVIDER, HISTORICAL levothyroxine (SYNTHROID) 25 mcg Tablet Take by mouth daily. Indications: unknown dose PROVIDER, HISTORICAL documented in this encounter Plan of Treatment Not on filedocumented as of this encounter Visit Diagnoses Diagnosis Pre-op testing Preoperative examination, unspecified documented in this encounter Care Teams Yeast Pumper Relationship Specialty Start Date End Date Lidia Benson APRN PCP - General Family Medicine 02/28/18 08/23/19 [address] [place] [address] documented as of this encounter
--- OUTSIDE RECORDS SUMMARY | 2022-07-23 00:55 | XMS_ITS | Encounter Summary ---
:1980 Author Organization [facility] [place] [address] Care Team Providers Name Role Phone Lidia Benson APRN Primary Care Provider Encounter Details Date Type Department Care Team Description 01/29/2022 Ancillary Procedure Radiology Library at Margoth [facility] [address] [place] [phone] (Wo rk) Social History Tobacco Use Types [...] Procedure Name Priority Date/Time Associated Comments Diagnosis FILM LIBRARY STORAGE Routine 01/29/2022 12:00 AM Results for this ONLY ULTRASOUND EDT procedure ar e in STUDY the results section. documented in this encounter Results Film Library- Storage Only Ultrasound Study (01/29/2022 12:00 AM EDT) Specimen (Source) Anatomical Location Collection Method / Collectio n Time Received Time / Laterality Volume Narrative RAD - 02/03/2022 4:31 PM EDT This exam is auto-finalizing. It's purpo se is for storage only. Lidia Benson APRN IMG FILM LIBRARY ORDERABLES Performing Organization Address City/State/ZIP Code Phon e Number RAD [place], [place] documented in this encounter Visit Diagnoses Not on filedocumented in this encounter Care Teams Discovery Guide Relationship Specialty Start Date End Date Lidia Benson APRN PCP - General Family Medicine 09/14/19 [address] [place] [address] documented as of this encounter
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
--- OUTSIDE RECORDS SUMMARY | 2022-07-23 00:55 | XMS_ITS | Encounter Summary ---
:1980 Author Organization [facility] [address] Care Team Providers Name Role Phone Lidia Benson APRN Primary Care Provider Encounter Details Date Type Department Care Team Description 12/25/2019 Telephone Radiation Oncology a t [facility] Cezar Longo [address] [place] [phone] Social History Tobacco Use Types Packs/Day Years Used Date Smoking Tobacco: Every Day Cigarettes 0.5 1 Smokeless Tobacco: Never Comments: smokes 1-2 cigarettes a day Alcohol Use Standard Drinks/Week Comments No 0 (1 standard drink = 0.6 oz pure alcoho l) Sex Assigned at Date Recorded Not on file documented as of this encounter Miscellaneous Notes Telephone Encounter - Cezar Longo - 12/25/2019 8:10 AM EDT Received a call from Shaneka that she was declining her new patient appointment with Dr. Hewitt.She did not want to reschedule. documented in this encounter Plan of Treatment Not on filedocumented as of this encounter Visit Diagnoses Not on filedocumented in this encounter Care Teams Bilingual Counter Sales Retail Relationship Specialty Start Date End Date Lidia Benson APRN PCP - General Family Medicine 09/14/[address] [place], [place] [id number] documented as of this encounter
--- OUTSIDE RECORDS SUMMARY | 2022-07-23 00:55 | XMS_ITS | Encounter Summary ---
:1980 Author Organization [facility] [address] Care Team Providers Name Role Phone Lidia Benson APRN Primary Care Provider Encounter Details Date Type Department Care Team Description 10/23/2018 Orders Only Gastroenterology at [facility] Jimmy Calvillo Abnormal LFTs ([facility] CECI Guthrei function tests) [place] [address] [place] [address] [place] [address] Social History Tobacco Use Types Packs/Day Years Used Date Smoking Tobacco: Some Days Cigarettes 0.5 1 Smokeless Tobacco: Never Alcohol Use Standard Drinks/Week Comments No 0 (1 standard drink = 0.6 oz pure alcoho l) Sex Assigned at Date Recorded Not on file documented as of this encounter Plan of Treatment Not on filedocumented as of this encounter Visit Diagnoses Diagnosis Abnormal LFTs (liver function tests) Other abnormal blood chemistry documented in this encounter Care Teams Services Delivery Driver Relationship Specialty Start Date End Date Lidia Benson APRN PCP - General Family Medicine 02/28/18 08/23/19 [place] [phone] documented as of this encounter
--- OUTSIDE RECORDS SUMMARY | 2022-07-23 00:56 | XMS_ITS | Encounter Summary ---
:1980 Author Organization [facility] [place] [address] Care Team Providers Name Role Phone Lidia Benson APRN Primary Care Provider Encounter Details Date Type Department Care Team Description 03/23/2018 Telephone Gastroenterology at [facility] [place] [address] Social History Tobacco Use Types Packs/Day Years Used Date Smoking Tobacco: Every Day Cigarettes 1 1 Smokeless Tobacco: Never Alcohol Use Standard Drinks/Week Comments No 0 (1 standard drink = 0.6 oz pure alcoho l) Sex Assigned at Date Recorded Not on file documented as of this encounter Miscellaneous Notes Telephone Encounter - Shruthi Fisher - 03/23/2018 11:53 AM EDT lvm for pt to plz call back- (need to rearrange the schedule a bit- needs to see Angela at 1 and thenRachel- appts shown are updated & correct- pt needs to confirm) documented in this encounter Plan of Treatment Not on filedocumented as of this encounter Visit Diagnoses Not on filedocumented in this encounter Care Teams Parks Recreation Coordinator Relationship Specialty Start Date End Date Lidia Benson APRN PCP - General Family Medicine 02/28/18 08/23/19 [place], [place] [id number] documented as of this encounter
--- OUTSIDE RECORDS SUMMARY | 2022-07-23 00:56 | XMS_ITS | Encounter Summary ---
:1980 Author Organization [facility] [place] [address] Care Team Providers Name Role Phone Lidia Benson APRN Primary Care Provider Encounter Details Date Type Department Care Team Description 06/20/2018 Telephone Gastroenterology at [facility] [place] [address] Social History Tobacco Use Types Packs/Day Years Used Date Smoking Tobacco: Some Days Cigarettes 1 1 Smokeless Tobacco: Never Alcohol Use Standard Drinks/Week Comments No 0 (1 standard drink = 0.6 oz pure alcoho l) Sex Assigned at Date Recorded Not on file documented as of this encounter Miscellaneous Notes Telephone Encounter - Shanon Colon - 06/20/2018 10:51 AM EDT Call made to patient to schedule 60min follow up with Jimmy Calvillo for abnormal LFTs. Scheduled for 06/28. documented in this encounter Plan of Treatment Not on filedocumented as of this encounter Visit Diagnoses Not on filedocumented in this encounter Care Teams Photography Sales Associate Relationship Specialty Start Date End Date Lidia Benson APRN PCP - General Family Medicine 02/28/18 08/23/19 [place], [place] [address] documented as of this encounter
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
--- OUTSIDE RECORDS SUMMARY | 2022-07-23 00:56 | XMS_ITS | Encounter Summary ---
:1980 Author Organization [place] [address] Care Team Providers Name Role Phone Lidia Benson APRN Primary Care Provider Encounter Details Date Type Department Care Team Description 07/10/2018 Telephone Gastroenterology at [facility] Jimmy Calvillo PA [facility] [place] [id number] [place] [id number] [phone] (Wo rk) Social History Tobacco Use Types Packs/Day Years Used Date Smoking Tobacco: Some Days Cigarettes 0.5 1 Smokeless Tobacco: Never Alcohol Use Standard Drinks/Week Comments No 0 (1 standard drink = 0.6 oz pure alcoho l) Sex Assigned at Date Recorded Not on file documented as of this encounter Miscellaneous Notes Telephone Encounter - Sandi Walker - 07/10/2018 2:15 PM EST Pt called back to talk with Laci Calvillo. Laci in with pt. Let her know that I would let him know thatshe called. She asked that he call the same number he did last time Telephone Encounter - Jimmy Calvillo PA - 07/10/2018 10:13 AM EST Left voicemail to discuss patient's concerns regarding upcoming procedures. Asked that she call GI office back to speak with me. DG documented in this encounter Plan of Treatment Not on filedocumented as of this encounter Visit Diagnoses Not on filedocumented in this encounter Care Teams Cell Stripper Final Relationship Specialty Start Date End Date Lidia Benson APRN PCP - General Family Medicine 02/28/18 08/23/19 [place] [address] documented as of this encounter
--- OUTSIDE RECORDS SUMMARY | 2022-07-23 00:56 | XMS_ITS | Encounter Summary ---
:1980 Author Organization [facility] [place] [address] Care Team Providers Name Role Phone Lidia Benson APRN Primary Care Provider Encounter Details Date Type Department Care Team Description 07/04/2018 Telephone Gastroenterology at [facility] [place] [address] Social History Tobacco Use Types Packs/Day Years Used Date Smoking Tobacco: Some Days Cigarettes 0.5 1 Smokeless Tobacco: Never Alcohol Use Standard Drinks/Week Comments No 0 (1 standard drink = 0.6 oz pure alcoho l) Sex Assigned at Date Recorded Not on file documented as of this encounter Miscellaneous Notes Telephone Encounter - Vishal Majano - 07/04/2018 1:56 PM EDT Call transferred from clinic. Patient is scheduled for multiple procedures on 08/01. She wants to cancel all but the liver bx. Informed patient I would follow up with CECI Calvillo to see what he would like to do and we can go from there. She states her understanding. documented in this encounter Plan of Treatment Not on filedocumented as of this encounter Visit Diagnoses Not on filedocumented in this encounter Care Teams Travel Pta Relationship Specialty Start Date End Date Lidia Benson APRN PCP - General Family Medicine 02/28/18 08/23/19 [place] [address] documented as of this encounter
--- OUTSIDE RECORDS SUMMARY | 2022-07-23 00:56 | XMS_ITS | Encounter Summary ---
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 mg, Oral, EVERY 6 HOURS PRN, Starting on Tue02/21/17 at 0127, Until Tue02/21/17 at 1623, Cramping, Flatulence, Routine sodium chloride 0.9 % flush 5 mL Given 02/21/2017 8:32 AM EDT 5 mLs 5 mL, Intravenous, 2 TIMES DAILY, First dose on Tue02/20/17 at 0015, Until Discontinued, Recovery (Recovery-Hospital Unit), Routine Given 02/20/2017 8:36 PM EDT 5 mLs Given 02/20/2017 10:05 AM EDT 5 mLs topiramate (TOPAMAX) sprinkle capsule 25 mg Given 02/21/2017 8:19 AM EDT 25 mg 25 mg, Oral, DAILY, First dose on 02/20/17 at 1000, Until Discontinued, Routine Given 02/20/2017 10:04 AM EDT 25 mg documented in this encounter Active and Recently Administered Medications Times are shown in EDT. Scheduled Medication Order 02/19/2017 02/20/2017 02/21/2017 ARIPiprazole (ABILIFY) tablet 30 mg 1003 (Given - Provider: Shaneka Velazquez RN) 0818 (Given - Provider: Yeni Malik) 30 mg, Oral, DAILY, First dose on Sun at 1100, Until Discontinued, Routine aspirin chewable tablet 81 mg 1439 (Give n - Provider: Shaneka Velazquez RN)2036 (Given - Provider: Flavio Martin RN) 0818 (Given - Provider: Christina Longo RN) 81 mg, Oral, 2 TIMES DAILY, First dose o n 02/20/17 at 1415, Until Discontinued, Routine heparin (porcine) subcutaneous injection 5,000 Units 0708 (Given - Provider: Elizabeth Hewitt RN)1443 (Given - Provider: Shaneka Velazquez RN)2208 (Given - Provider: Flavio Martin, AKASH) 0518 (Given - Provider: Flavio Martin, AKASH)1321 (Given - Provider: Christina Longo RN) 5,000 Units, Subcutaneous, EVERY 8 HOURS SCHEDULED, First dose on 02/20/17 at 0600, Until Discontinued, Routine levothyroxine (SYNTHROID) tablet 25 mcg 1002 (Given - Provider: Shaneka Velazquez RN) 0820 (Given - Provider: Yeni Malik) 25 mcg, Oral, DAILY, First dose on Sun at 1000, Until Discontinued, Routine nicotine (NICODERM CQ) 21 mg/24 hr patch 21 mg(Linked Group 1) 1446 (Patch Applied - Provider: Shaneka Velazquez RN) 0820 (Patch Applied - Provider: Christina Longo RN) 21 mg, Transdermal, DAILY, First dose on Tue02/20/17 at 1145, Until Discontinued, STAT nicotine (NICODERM CQ) 21 mg/24 hr patch Patch Removal(Linked Gr oup 1) 0900 (Patch Removed - Provider: Christina Longo RN) Transdermal, DAILY, First dose on Tue at 0900, Until Discontinued, Remove nicotine 21 mg/24 hr patch nicotine (NICODERM CQ) 21 mg/24 hr patch Patch Verification( Linked Group 1) 2330 (Patch (dose and location) verified - Provider: Flavio Martin RN - Comment: L upper arm) 0900 (Patch (dose and location) verified - Provider: Christina Longo RN) Transdermal, 2 TIMES DAILY, First dose o n Tue02/20/17 at 2330, Until Discontinued, Verify nicotine 21 mg/24 hr patch oxyCODONE (ROXICODONE) immediate release tablet 5 mg (COMPLETED) 1321 (Given - Provider: Christina Longo RN) 5 mg, Oral, ONCE, 1 dose, Tue02/21/17 at 1330, Routine polyethylene glycol (MIRALAX) packet 17 g 0820 (Given - Provider: Christina Longo RN) 17 g, Oral, DAILY, First dose on 02/03 at 0900, Until Discontinued, Administer if needed per patient's routine or if no bowel movement within 48 hours to achieve: 1) One bowel movement at least ev betty 48 hours, AND 2) Without straining. If multiple bowel medications ordered, consider polyethylene glycol(MIRALAX) first., Routine potassium chloride (K-DUR/KLOR-CON) extended release tablet 40 mEq (COMPLETED) 1028 (Given - Provider: Shaneka Velazquez RN) 40 mEq, Oral, ONCE, 1 dose, Tue02/20/17 at 1030, 20 mEq tablet may be dissolved in water for administration, Routine senna-docusate (PERICOLACE) 8.6-50 mg per tablet 2 tablet 0819 (Given - Provider: Christina Longo RN) 2 tablet, Oral, 2 TIMES DAILY, First dos e on Tue02/21/17 at 0900, Until Discontinued, Routine sodium chloride 0.9 % flush 5 mL 0020 (G iven - Provider: Elizabeth Hewitt RN)1005 (Given - Provider: Shaneka Velazquez RN)2036 (Given - Provider: Flavio Martin, RN) 0832 (Given - Provider: Yeni Malik) 5 mL, Intravenous, 2 TIMES DAILY, First dose on 02/20/17 at 0015, Until Discontinued, Recovery (Recovery-Hospital Unit), Routine topiramate (TOPAMAX) sprinkle capsule 25 mg 1004 (Given - Provider: Shaneka Velazquez RN) 0819 (Given - Provider: Yeni Malik) 25 mg, Oral, DAILY, First dose on Sun at 1000, Until Discontinued, Routine Continuous Medication Order 02/19/2017 02/20/2017 02/21/2017 lactated Ringers infusion (CANCELED) 001 9 (New Bag - Provider: Elizabeth Hewitt RN) 75 mL/hr, at 75 mL/hr, Intravenous, CONT INUOUS, Starting 02/20/17 at 0015, Until 02/20/17 at 1006, Recovery (Recovery-Hospital Unit) PRN Medication Order 02/19/2017 02/20/2017 02/21/2017 acetaminophen (TYLENOL) tablet 1,000 mg 0311 (Given - Provider: Elizabeth Hewitt RN)0913 (Given - Provider: Shaneka Velazquez RN)1825 (Given - Provider: Shaneka Velazquez RN) 0022 (Given - Provider: Flavio Martin, RN)0819 (Given - Provider: Christina Longo, RN) 1,000 mg, Oral, EVERY 6 HOURS PRN, Start ing 02/19/17 at 2357, Until 02/21/17 at 1623, Pain, for MODERATE pain (4-6), Do not exceed 4,000 mg in 24 hours, Routine bisacodyl (DULCOLAX) EC tablet 10 mg 10 mg, Oral, 2 TIMES DAILY PRN, Starting 02/21/17 at 0717, Until 02/21/17 at 1623, Constipation, DO NOT CRUSH OR OPEN Administer if needed per patient's routine or if no bowel movement within 48 hours to achieve: 1) One bowel moveme nt at least every 48 hours, AND 2) Without straining. If multiple bowel medications ordered, consider adding bisacodyl if polyethylene glycol (MIRALAX) and lactulose not sufficient., Routine bisacodyl (DULCOLAX) suppository 10 mg 10 mg, Rectal, DAILY PRN, Starting Mon at 0717, Until 02/21/17 at 1623, Constipation, Administer if needed per patient's routine or if no bowel movement within 48 hours to achieve: 1) One bow el movement at least every 48 hours, AND 2) Without straining. If multiple bowel medications ordered, consider adding bisacodyl if polyethylene glycol (MIRALAX) and lactulose not sufficient. If patient unable to take PO, may give ID if ordered, Routine fentaNYL 50mcg/mL injection (CANCELED) 2132 (Given - P rovider: Jerrica Sepulveda, AKASH)2321 (Given - Provider: Jerrica Sepulveda RN) 50 mcg, Intravenous, PER TRAUMA ANALGESI C PROTOCOL, Starting 02/19/17 at 2036, Until 02/19/17 at 2358, Pain, Every 5-15 minutes PRN, STAT ibuprofen (ADVIL;MOTRIN) tablet 600 mg (CANCELED) 57 (Given - Provider: Elizabeth Hewitt RN) 600 mg, Oral, EVERY 6 HOURS PRN, Startin g 02/19/17 at 2357, Until 02/20/17 at 0122, Pain, for MILD pain (1-3), Administer orally with milk or food to minimize GI irritation. Maximum dose of 3200 mg from all sources in 24 hours, Routine iohexol (OMNIPAQUE) 350 mg/mL solution 42,000 mg (COMP LETED) 2051 (Given - Provider: Jimmy Romeo) 42,000 mg (120 mL), Intravenous, ONCE ID N, 1 dose, Starting 02/19/17 at 2050, Until 02/19/17 at 2051, Per Protocol, Warning Vesicant/Irritant Medication , Routine lidocaine (XYLOCAINE) 10 mg/mL (1 %) injection 3 mg 3 mg (0.3 mL), Subcutaneous, ONCE PRN, 1 dose, Starting 02/19/17 at 2357, Until 02/21/17 at 1623, for discomfort with PIV insertion, Recovery (Recovery-Hospital Unit), Routine naloxone (NARCAN) injection 0.2 mg 0.2 mg, Intravenous, EVERY 1 [address]N, [address] rahul 02/19/17 at 2357, Until 02/21/17 at 1623, Opioid Reversal, If respiratory rate less than 6 OR the patient is unable to arouse OR SpO2 is declining, G león for respiratory rate of less than or equal to 6 and patient is heavily sedated or unarousable. May repeat every 60 seconds to increase respiratory rate. DO NOT exceed 2 mg total dose., Recovery (Recovery-Hospital Unit), Routine oxyCODONE (ROXICODONE) immediate release tablet 10 mg(Linked Alison up 2) 1603 (Given - Provider: Christina Longo, RN) 10 mg, Oral, EVERY 4 HOURS PRN, Starting 02/21/17 at 1301, Until 02/21/17 at 1623, Pain, severe pain (7-10), May give an additional 5 mg in 30 minutes once if pain not relieved., Routine oxyCODONE (ROXICODONE) immediate release tablet 5 mg (CANCEL ED) 1027 (Given - Provider: Shaneka Velazquez RN)1438 (Given - Provider: Shaneka Velazquez RN)1825 (Given - Provider: Shaneka Velazquez, AKASH)2209 (Given - Provider: Flavio Martin, AKASH) 0517 (Given - Provider: Flavio Martin, RN)1004 (Given - Provider: Christina Longo, RN) 5 mg, Oral, EVERY 4 HOURS PRN, Starting 02/20/17 at 1004, Until 02/21/17 at 1302, Pain, Routine oxyCODONE (ROXICODONE) immediate release tablet 5 mg(Linked Grou p 2) 1603 (See Alternative - Provider: Christina Longo, RN) 5 mg, Oral, EVERY 4 HOURS PRN, Starting 02/21/17 at 1301, Until 02/21/17 at 1623, Pain, mild to moderate pain (1-6), May give an additional 5 mg in 30 minutes once if pain not relieved., Routine simethicone (MYLICON) chewable tablet 80 mg 80 mg, Oral, EVERY 6 HOURS PRN, Starting 02/21/17 at 0127, Until Tue02/21/17 at 1623, Cramping, Flatulence, Routine sodium chloride 0.9 % flush 5-20 mL 5-20 mL, Intravenous, EVERY 1 MIN PRN, S tarting 02/19/17 at 2357, Until 02/21/17 at 1623, flush, Flush pertains to all indwelling lines. Flush per protocol found in the job aid using the link prov ided on this medication record., Recovery (Recovery-Hospital Uni t), Routine Linked Groups Order Group 1: nicotine (NICODERM CQ) 21 mg/24 hr patch 21 mgJump to med 21 mg, Transdermal, DAILY, First dose on 02/20/17 at 1145, Until Discontinued, STAT And nicotine (NICODERM CQ) 21 mg/24 hr patch Patch VerificationJump to med Transdermal, 2 TIMES DAILY, First dose o n 02/20/17 at 2330, Until Discontinued
Verify nicotine 21 mg/24 hr patch
And nicotine (NICODERM CQ) 21 mg/24 hr patch Patch RemovalJump to med Transdermal, DAILY, First dose on Tue at 0900, Until Discontinued
Remove nicotine 21 mg/24 hr patch
Group 2: oxyCODONE (ROXICODONE) immediate release tablet 5 mgJump to med 5 mg, Oral, EVERY 4 HOURS PRN, Starting Tue02/21/17 at 1301, Until Tue02/21/17 at 1623, Pain, mild to moderate pain (1-6)
May give an additional 5 mg in 30 minutes once if pain not relieved.
Routine Or oxyCODONE (ROXICODONE) immediate release tablet 10 mgJump to med 10 mg, Oral, EVERY 4 HOURS PRN, Starting 02/21/17 at 1301, Until 02/21/17 at 1623, Pain, severe pain (7-10)
May give an additional 5 mg in 30 minutes once if pain not relieved.
Routine documented in this encounter Care Teams Catalyst Operator Relationship Specialty Start Date End Date None PCP - General 12/09/16 02/27/18 None documented as of this encounter
--- OUTSIDE RECORDS SUMMARY | 2022-07-23 00:56 | XMS_ITS | Encounter Summary ---
:1980 Author Organization [facility] [place] [address] Care Team Providers Name Role Phone None Primary Care Provider Unavailable Encounter Details Date Type Department Care Team Description 02/21/2017 Orders Only Orthopaedics at [facility] Matthew Andrews, Injury of left ankle, [facility] [place] [address] ORTHOPAEDIC SURGERY [place] [id number] Social History Tobacco Use Types Packs/Day Years Used Date Smoking Tobacco: Every Day Cigarettes 1 1 Smokeless Tobacco: Never Alcohol Use Standard Drinks/Week Comments No 0 (1 standard drink = 0.6 oz pure alcoho l) Sex Assigned at Date Recorded Not on file documented as of this encounter Plan of Treatment Not on filedocumented as of this encounter Results XR Ankle Min 3 views Left (Generic) (03/16/2017 12:43 PM EDT) Anatomical Region Laterality Modality Ankle Left Digital Radiography Specimen (Source) Anatomical Location Collection Method / Collectio n Time Received Time / Laterality Volume Impressions 03/16/2017 3:59 PM EDT Unchanged radiographic appearance of a posteriorly displaced vertical fracture through the posterior process of the nish us. I have personally reviewed the image(s) and the residents interpretation and agree with the findings, ALMAS OWENS at 03/05 3:59 PM Narrative 03/16/2017 3:59 PM EDT EXAMINATION: XR ANKLE MIN 3 VIEWS LEFT (GENERIC) CLINICAL HISTORY: Left displaced posteri or talar process fracture with date of injury 02/19/17 TECHNIQUE: AP, oblique, and lateral views of the le ft ankle COMPARISON: 02/19/2017 left ankle radiographs FINDINGS: Unchanged appearance of the posteriorly displaced vertical fracture through the posterior process of the talus. Edema th roughout Kager's fat pad persists. Bone mineralization is normal. The joint spac es are otherwise normal. Procedure Note Almas Owens MD - 03/16/2017Formatting o f this note might be different from the original. EXAMINATION: XR ANKLE MIN 3 VIEWS LEFT ( GENERIC) CLINICAL HISTORY: Left displaced posteri or talar process fracture with date of injury 02/19/17 TECHNIQUE: AP, oblique, and lateral views of the le ft ankle COMPARISON: 02/19/2017 left ankle radiographs FINDINGS: Unchanged appearance of the posteriorly displaced vertical fracture through the posterior process of the talus. Edema th roughout Kager's fat pad persists. Bone mineralization is normal. The joint spac es are otherwise normal. IMPRESSION Unchanged radiographic appearance of a p osteriorly displaced vertical fracture through the posterior process of the nish us. I have personally reviewed the image(s) and the residents interpretation and agree with the findings, ALMAS OWENS at 03/05 3:59 PM Matthew Andrews MD IMG DX ORDERABLES documented in this encounter Visit Diagnoses Diagnosis Injury of left ankle, initial encounter Injury of left ankle, initial encounter documented in this encounter Care Teams Signs And Displays Sales Representative Relationship Specialty Start Date End Date None PCP - General 12/09/16 02/27/18 None documented as of this encounter
--- OUTSIDE RECORDS SUMMARY | 2022-07-23 00:56 | XMS_ITS | Encounter Summary ---
:1980 Author Organization [facility] [place] [address] Care Team Providers Name Role Phone Lidia Benson APRN Primary Care Provider Encounter Details Date Type Department Care Team Description 07/18/2018 Telephone Gastroenterology [place] [phone] Social History Tobacco Use Types Packs/Day Years Used Date Smoking Tobacco: Some Days Cigarettes 0.5 1 Smokeless Tobacco: Never Alcohol Use Standard Drinks/Week Comments No 0 (1 standard drink = 0.6 oz pure alcoho l) Sex Assigned at Date Recorded Not on file documented as of this encounter Miscellaneous Notes Telephone Encounter - Toan M[place] - 07/18/2018 8:28 AM EST Pt called the after-hours number to cancel but the connection center did not feel comfortable cancelling the procedures; I called and left a message for the pt to call us if she had any questions concerning the procedures; forwarding on to Laci Peace documented in this encounter Plan of Treatment Not on filedocumented as of this encounter Visit Diagnoses Not on filedocumented in this encounter Care Teams Photocopier Technician Relationship Specialty Start Date End Date Lidia Benson APRN PCP - General Family Medicine 02/28/18 08/23/[address] [place], [place] [id number] (work) documented as of this encounter
--- OUTSIDE RECORDS SUMMARY | 2022-07-23 00:56 | XMS_ITS | Encounter Summary ---
:1980 Author Organization [facility] [place] [address] Care Team Providers Name Role Phone Lidia Benson APRN Primary Care Provider Encounter Details Date Type Department Care Team Description 07/18/2018 Telephone [place] [facility] [place] [address] Social History Tobacco Use Types Packs/Day Years Used Date Smoking Tobacco: Some Days Cigarettes 0.5 1 Smokeless Tobacco: Never Alcohol Use Standard Drinks/Week Comments No 0 (1 standard drink = 0.6 oz pure alcoho l) Sex Assigned at Date Recorded Not on file documented as of this encounter Miscellaneous Notes Telephone Encounter - Toan Mena - 07/18/2018 8:44 AM EST Pt called back and wants to cancel the scheduled procedures for 08/01, as well as the f/u appointments in GI with Angela and Laci. Tried talking her into coming in - she says she's doing fine right now -and told her we wouldn't be able to reschedule her until next year. She understood. I told her all appointments had been cancelled. documented in this encounter Plan of Treatment Not on filedocumented as of this encounter Visit Diagnoses Not on filedocumented in this encounter Care Teams Bingo Checker Relationship Specialty Start Date End Date Lidia Benson APRN PCP - General Family Medicine 02/28/18 08/23/19 [address] [place] [address] documented as of this encounter
--- OUTSIDE RECORDS SUMMARY | 2022-07-23 00:56 | XMS_ITS | Encounter Summary ---
:1980 Author Organization [facility] [place] [address] Care Team Providers Name Role Phone Lidia Benson APRN Primary Care Provider Encounter Details Date Type Department Care Team Description 10/19/2018 Telephone Gastroenterology at [facility] [place] [address] Social History Tobacco Use Types Packs/Day Years Used Date Smoking Tobacco: Some Days Cigarettes 0.5 1 Smokeless Tobacco: Never Alcohol Use Standard Drinks/Week Comments No 0 (1 standard drink = 0.6 oz pure alcoho l) Sex Assigned at Date Recorded Not on file documented as of this encounter Miscellaneous Notes Telephone Encounter - Toan Mena - 10/19/2018 1:21 PM EST Pt called to schedule liver bx. Told pt that Laci Calvillo wants labs done first. Pt said she uses [facility] for lab work so I faxed the orders there @ [phone]. documented in this encounter Plan of Treatment Not on filedocumented as of this encounter Visit Diagnoses Not on filedocumented in this encounter Care Teams Driller Operator Relationship Specialty Start Date End Date Lidia Benson APRN PCP - General Family Medicine 02/28/18 08/23/19 [place] [id number] documented as of this encounter
--- OUTSIDE RECORDS SUMMARY | 2022-07-23 00:56 | XMS_ITS | Encounter Summary ---
:1980 Author Organization [facility] [place] [address] Care Team Providers Name Role Phone Lidia Benson APRN Primary Care Provider Reason for Referral Consultation (Routine) - Closed Specialty Diagnoses / Procedures Referred By Contact Refer red To Contact Gastroenterology Diagnoses Elevated LFTs Upper abdominal pain Irritable bowel syndrome with diarrhea Hematochezia Angela Pizarro [facility] SALES ENABLEMENT LEAD [facility] [place] [address] [place] [address] Referral ID Status Reason Start Date Expiration Date Visits V isits Requested Authorized [id number] Closed Consult, 06/13/2018 06/13/2019 1 1 Test & Treat Reason for Visit Reason Comments GI Problem Encounter Details Date Type Department Care Team Description 06/13/2018 Office Visit G[facility]ology [place] [facility] [place], Elevated LFTs; [facility] Pooja Lynch APRN Upper abdominal pain; [place] [address] [facility] Irritable bowel syndrome wit h diarrhea; [phone] [place]; GASTROENTEROLOGY Dysphagia, [place] [address] Social History Tobacco Use Types Packs/Day Years Used Date Smoking Tobacco: Some Days Cigarettes 1 1 Smokeless Tobacco: Never Alcohol Use Standard Drinks/Week Comments No 0 (1 standard drink = 0.6 oz pure alcoho l) Sex Assigned at Date Recorded Not on file documented as of this encounter Last Filed Vital Signs Vital Sign Reading Time Taken Comments Blood Pressure 126/76 06/13/2018 1:50 PM EDT Pulse 102 06/13/2018 1:50 PM EDT Temperature - - Respiratory Rate - - Oxygen Saturation - - Inhaled Oxygen Concentration - - Weight 90.2 kg (198 lb 12.8 oz) 06/13/2018 1:50 PM EDT Height 160 cm (5' 3) 06/13/2018 1:50 PM EDT Body Mass Index 35.22 06/13/2018 1:50 PM EDT documented in this encounter Patient Instructions Patient InstructionsSieglingerAngela APRN - 06/13/2018 2:00 PM EDT 1. Labs today in 3L 2. Fibroscan 3. Referral to liver team 4. Stool studies at your convenience 5. Dicyclomine 10 mg four times daily as needed for abdominal pain 6. Upper endoscopy and colonoscopy with anesthesia 7. Low-FODMAP diet for 2-4 weeks. Gradually reintroduce one food at a time to identify triggers. ADDITIONAL RESOURCES: *[facility] has a wonderful kee available for this diet *We also recommend a blog called [email or web address] 8. Follow up appointment 2-3 weeks after upper endoscopy and colonoscopy documented in this encounter Progress Notes Angela Pizarro APRN - 06/13/2018 2:00 PM EDT VISITOR INFORMATION ASSISTANT: Angela Pizarro APRN PCP: Lidia Benson APRN REQUESTING PROVIDER: Lidia Benson APRN REASON FOR CONSULTATION This is a 37 y.o. female with a history significant for DM2. I am seeing her as a new patient today in consult for chronic diarrhea and fatty liver. GI PROBLEM LIST 1. CHRONIC DIARRHEA 2. FATTY LIVER --CT scan abd/pelvis WITH 02/19/17; FINDINGS: ?? Chest: Lungs and large airways: Normal. Pleura: No effusion. Heart/vasculature: Normal. Lymph nodes/Mediastinum/Daxa: Normal. Chest wall: Left subpectoral breast implant. ?? Abdomen/pelvis: Liver: Normal attenuation without lesions. Enlarged right hepatic lobe measuring 24 cm likely is result of Essence's lobe. Bile ducts: Nondilated. Gallbladder: No calcified gallstones. Normal caliber wall. Pancreas: Normal attenuation without ductal dilatation. Spleen: Normal. Adrenals: Normal. Kidneys: Normal. ?? Vasculature: No aneurysm. Lymph Nodes: No enlarged lymph nodes. Bowel: Nondilated, no wall thickening. Peritoneum and mesentery: No ascites, free air, or loculated fluid collection. No mesenteric inflammation. Abdominal wall: Normal. ?? Urinary Bladder: Not optimally assessed as a result of decompression secondary to the presence of a Allen catheter with inflated retention bulb. Reproductive organs: 4.4 cm well-circumscribed fluid density ovarian cyst. Osseous structures: No suspicious lesions. ?? IMPRESSION No acute osseous, solid organ or vascular injury. ?? --CT scan abd/pelvis WITH 02/27/18 ([facility]); no sign of fatty liver. Concerning for pyelonephritis. HPI COMMENTS Endorses diverticulosis. Endorses fatty liver. Endorses long history of diarrhea for many years. Abdominal pain LLQ and RUQ first has been an issuefor a years, but it has been getting progressively worse especially over the past three weeks. Intermittent. Blood mixed in stool. Dull cramping pains. Has not had stool studies done for this issue. Denies constipation. Denies straining and difficulty emptying. Stools are [place] type 4/5. Denies mucus in stool. Feels feverish, sweating, shortness of breath, weakness. Unintentional weight loss of approximately 10 lbs in one night. This weight has been regained. She was taking small intestine detox and colon detox 2 days. Has also been taking vitamins over the past several weeks. B12, Vitamin C. She was recently taking antibiotics for diverticulitis. This did not improve symptoms. She developeda yeast infection and was taking a medication for this three times a day for one week. Stopped taking. Denies chronic NSAIDs. CT scan done here in 2016. She had another CT scan done in February 2018. Last A1C 6 point something. It was in the good range. She endorses diabetes for approximately 2 years. Dysphagia on a daily basis. Food becomes lodged. Liquids and solids. Reflux and regurgitation. Good appetite. Denies early satiety. Denies nausea and vomiting. ROS Notable for the gastrointestinal symptoms as described above. CONSTITUTIONAL: Denies anorexia, fever, or unintended weight change EYES: Denies red or painful eyes ENT: Denies oral ulcers, dysphagia, odynophagia, globus. RESPIRATORY: Denies cough, shortness of breath, wheezing CV: Denies palpitations, chest pain. : Denies dysuria, urinary incontinence, or dyspareunia. MUSC/SKELETAL: Denies chronic joint pains or history of inflammatory arthritis. INTEGUMENTARY: Denies recent skin rash or lesions. NEURO: Seizures. Denies neuropathy, loss of sensation, facial drooping or unilateral weakness. PSYCH: Schizoaffective disorder. ENDO: Denies frequent urination and excessive hunger or thirst. HEM/LYMPH: Denies easy bleeding or bruising. ALL/IMMUNO: Denies seasonal allergies, frequent colds. ALLERGIES Allergies Allergen Reactions ??? Percocet [Oxycodone-Acetaminophen] ??? Percocet [Oxycodone-Acetaminophen] Patient cannot remember reaction, but states it was mild CURRENT MEDICATIONS Medications reviewed and reconciled in e-DH Current Outpatient Prescriptions: ??? metFORMIN (GLUCOPHAGE) 500 mg Tablet, Take 1,000 mg by mouth., Disp: , Rfl: ??? lancets Mis, by Misc.(Non-Drug; Combo Route) route., Disp: , Rfl: ??? Blood-Glucose Meter Mis, by Misc.(Non-Drug; Combo Route) route., Disp: , Rfl: ??? ARIPiprazole (ABILIFY MAINTENA) 400 mg Suspension,Sust.Release Recon, Inject 2 mLs into the muscle every 30 days., Disp: 1 each, Rfl: 0 ??? topiramate (TOPAMAX) 25 mg Capsule, Sprinkle, Take 25 mg by mouth daily., Disp: , Rfl: ??? levothyroxine (SYNTHROID) 25 mcg Tablet, Take by mouth daily. Indications: unknown dose, Disp: ,Rfl: MEDICAL HISTORY Past Medical History: Diagnosis Date ??? Diabetes mellitus ??? Hypothyroidism ??? Schizophrenia SURGICAL HISTORY Non-contributory SOCIAL HISTORY Currently works as a disabled. Single. Has 2 kids. HABITS Denies tobacco use. Occasional alcohol use. Denies using other substances. FAMILY HISTORY Denies family history of celiac disease, esophageal cancer, stomach cancer, colon cancer, pancreaticor liver issues, and IBD. PHYSICAL EXAM: Most Recent Vitals: 06/13/18 1350 BP: 126/76 Pulse: (!) 102 Height: Height: 160 cm (5' 3) Weight: Weight: 90.2 kg (198 lb 12.8 oz) Body mass index is 35.22 kg/(m^2). GENERAL: Healthy-appearing in no acute distress. Appears stated age. Well nourished. SKIN: No lesions, rashes, lumps, or angiomas on exposed skin. NECK: No adenopathy. No thyromegaly. HEENT: PERRL, EOMI, mucosa clear without ulceration or lesions, normal Dentition LUNGS: Clear to auscultation bilaterally COR: Regular, normal S1 and S2 without murmurs. ABD: Tympanic. Tenderness deep palpation epigastrium and RUQ. No rebound or guarding. Normal active BS. Soft, non-distended. No bruits. No organomegaly. EXT: No cyanosis, clubbing, or edema. NEURO: Alert and oriented to person, place, time, and situation. Cranial nerves II-XII intact. PSYCH: Mood appropriate. Good eye contact. Normal interaction. Answers all questions appropriately. LABS: Lab Results Component Value Date WBC 8.6 03/02/2017 HGB 11.7 03/02/2017 HCT 34.3 (L) 03/02/2017 MCV 92.2 03/02/2017 PLATELET 412 (H) 03/02/2017 Lab Results Component Value Date NA 139 02/28/2017 K 3.9 02/28/2017 CL 104 02/28/2017 CO2 20 (L) 02/28/2017 BUN 7 (L) 02/28/2017 CREATININE 0.70 02/28/2017 GLUCOSE 158 02/28/2017 CALCIUM 9.2 02/28/2017 Lab Results Component Value Date ALT 35 (H) 02/22/2017 AST 31 (H) 02/22/2017 ALKPHOS 89 02/22/2017 BILITOT Not Perf 02/22/2017 BILIDIR Not Perf 02/22/2017 ALBUMIN 3.9 02/22/2017 PROT 7.3 02/22/2017 No results found for: LIPASE Lab Results Component Value Date BILIDIR Not Perf 02/22/2017 Lab Results Component Value Date BILITOT Not Perf 02/22/2017 Lab Results Component Value Date TSH 2.33 02/22/2017 06/07/18 ([facility]); Platelets 262 AST 175 ALT 130 Alk Phos 200 Bilirubin 0.3 Albumin 3.7 ASSESSMENT 1. IBS-Diarrhea predominant She does meet MALIK IV criteria for IBS. She has had two CT scans, the last in February 2018 concerning for pyelonephritis. She endorses treatment for diverticulitis with antibiotics followed by (what sounds like) a course of fluconazole, but she does not seem to be the best historian. She has not had stool studies done for this issue. Recommend fecal calprotectin, stool culture, c. Diff stool antigen, and fecal occult blood. Recommend low-FODMAP diet. Literature reviewed and provided. Recommend limitingfiber to 15-20g per day. Recommend dicyclomine. We reviewed medication indications, administration, and side effects. Consider utility of CTE/MRE. Recommend TTG/IgA, IgA today. Consider role of DM. Sheis at increased risk of SIBO. Ddx: IBS, IBD, infectious diarrhea, post-infectious diarrhea, microscopic colitis, pancreatic insufficiency, SIBO/dysbiosis, BAM, CD. 2. ELEVATED LFTs She brings me lab work with LFTs done 103. Significant elevation in LFTs compared to those done in 2017. Will obtain further lab testing including CBC, CMP, Ferritin, Hepatitis A, B, C, HIV screen, IgA, IgG, Iron and TIBC, AMA, Smooth muscle antibody, and ceruloplasm. Has a fibroscan scheduled. Recommend referral to our hepatology team for further evaluation and treatment. 3. DYSPHAGIA Seems obstructive in nature given constellation of symptoms. Recommend EGD. She will need MAC. Consider utility of HREM. Ddx: GERD, Schatzki ring, esophageal stricture, EoE, IEM, nutcracker esophagus, jackhammer esophagus, achalasia 4. HEMATOCHEZIA Recommend colonoscopy. She will need MAC. See above plans. PLAN 1. CBC, CMP, TTG/IgA, IgA, LUTHER, ceruloplasm, Ferritin, Hepatitis A total, Hepatitis B core total, Hepatitis B surface antigen, Hepatitic C antibody, HIV, IgG, Iron and TIBC, Mitochondrial antibody M2, protein electrophoresis, smooth muscle antibody 2. Fecal calprotectin, stool culture, C. Diff stool antigen, fecal occult blood 3. Fibroscan today 4. Referral to hepatology 5. Dicyclomine 10mg four times daily as needed for abdominal pain 6. EGD and colonoscopy with MAC 7. Low-FODMAP diet x 2-4 weeks. Gradually reintroduce one food at a time to identify triggers. 8. Follow up 2-3 weeks after EGD and colonoscopy I have provided her with my contact information. She has been encouraged to contact me with any questions or concerns. Signed, Angela Pizarro APRN 06/13/18 3:01 PM Section of Gastroenterology & Hepatology [facility] documented in this encounter Miscellaneous Notes Addendum Note - Casper Lima - 06/13/2018 3:34 PM EDT Addended by: CASPER LIMA on: 06/13/2018 03:34 PM Modules accepted: Orders documented in this encounter Plan of Treatment Scheduled Referrals Name Type Priority Associated Order Schedule Diagnoses Referral to Outpatient Routine Elevated LFTs Ordered: Gastroenterology Referral Upper abdominal 06/13/20 18 pain Irritable bowel syndrome with diarrhea Hematochezia documented as of this encounter Procedures Procedure Name Priority Date/Time Associated Comments Diagnosis A1AT GENOTYPE Routine 06/13/2018 3:46 PM Elevated LFTs Results for this EDT Upper abdominal procedure ar e in pain the results Irritable bowel section. syndrome with diarrhea Hematochezia A1AT GENOTYPE PROFILE Routine 06/13/2018 3:46 PM Elevate d LFTs EDT Upper abdominal pain Irritable bowel syndrome with diarrhea Hematochezia HEMOGRAM Routine 06/13/2018 3:46 PM Upper abdominal Result s for this EDT pain procedure are in Elevated LFTs the results section. DIFFERENTIAL, Routine 06/13/2018 3:46 PM Upper abdominal Resul ts for this AUTOMATED EDT pain procedure are in Elevated LFTs the results section. HEPATITIS C ANTIBODY Routine 06/13/2018 3:46 PM Upper abdomina l Results for this EDT pain procedure are in Elevated LFTs the results section. IRON AND TIBC Routine 06/13/2018 3:46 PM Upper abdominal Resul ts for this EDT pain procedure are in Elevated LFTs the results section. [id number] Routine 06/13/2018 3:46 PM Elevated LFTs Results for this EDT Upper abdominal procedure ar e in pain the results Irritable bowel section. syndrome with diarrhea Hematochezia HEPATITIS A ANTIBODY, Routine 06/13/2018 3:46 PM Upper abdomin al Results for this TOTAL EDT pain procedure are in Elevated LFTs the results section. MITOCHONDRIAL Routine 06/13/2018 3:46 PM Upper abdominal Resul ts for this ANTIBODY, M2 EDT pain procedure are in Elevated LFTs the results section. TISSUE Routine 06/13/2018 3:46 PM Elevated LFTs Results for this TRANSGLUTAMINASE, IGA EDT Upper abdominal pro cedure are in pain the results Irritable bowel section. syndrome with diarrhea Hematochezia CERULOPLASMIN Routine 06/13/2018 3:46 PM Upper abdominal Resul ts for this EDT pain procedure are in Elevated LFTs the results section. HEPATITIS B CORE Routine 06/13/2018 3:46 PM Upper abdominal Re sults for this ANTIBODY, TOTAL EDT pain procedure are in Elevated LFTs the results section. SMOOTH MUSCLE ANTIBODY Routine 06/13/2018 3:46 PM Upper abdomi nal Results for this EDT pain procedure are in Elevated LFTs the results section. HIV SCREEN, 4TH Routine 06/13/2018 3:46 PM Upper abdominal Res ults for this GENERATION EDT pain procedure are in ([facility]/APD/[facility]) Elevated LFTs the resu lts section. HEPATITIS B SURFACE Routine 06/13/2018 3:46 PM Upper abdominal Results for this ANTIBODY EDT pain procedure are in Elevated LFTs the results section. HEPATITIS B SURFACE Routine 06/13/2018 3:46 PM Upper abdominal Results for this ANTIGEN EDT pain procedure are in Elevated LFTs the results section. CBC (WITH DIFF) Routine 06/13/2018 3:46 PM Upper abdominal EDT pain Elevated LFTs LUTHER ANTIBODY SCREEN Routine 06/13/2018 3:46 PM Upper abdominal Results for this EDT pain procedure are in Elevated LFTs the results section. PROTEIN Routine 06/13/2018 3:46 PM Upper abdominal Result s for this ELECTROPHORESIS, SERUM EDT pain procedure are in Elevated LFTs the results section. IGA Routine 06/13/2018 3:46 PM Elevated LFTs Results for this EDT Upper abdominal procedure ar e in pain the results Irritable bowel section. syndrome with diarrhea Hematochezia IGG Routine 06/13/2018 3:46 PM Upper abdominal Result s for this EDT pain procedure are in Elevated LFTs the results section. FERRITIN Routine 06/13/2018 3:46 PM Upper abdominal Result s for this EDT pain procedure are in Elevated LFTs the results section. COMPREHENSIVE Routine 06/13/2018 3:46 PM Upper abdominal Resul ts for this METABOLIC PANEL EDT pain procedure are in (NON-FASTING) Elevated LFTs the results section. documented in this encounter Results A1AT Genotype (06/13/2018 3:46 PM EDT) Component Value Ref Test Analysis Performed At [facility] Range Method Time Signature A1AT A1AT (SERPINA1) GENOTYPING RESULTS: GARO Genotype S ALLELE: ??NOT DETECTED [facility] Z ALLELE: ??HETEROZYGOUS, ONE COPY OF THE Z ALLELE DETECTED . 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 ??Although carriers for the Z allele may have a mild A1AT deficiency, they are general ly not at risk for developing symptoms associated with A1AT deficiency. ??Serum A1AT concentration below 60 mg/dL may result in an increased risk for symptoms related to A1AT def iciency. Although genotyping shows that this patient has one Z allele and one non-S/non-Z allele, the presence of other rare A1AT variants has not been tested and cannot be excluded. ??These results s hould be interpreted based on the complete clinical presentation which may warrant additional testing and/or a genetic consultation. ??Due to the carrier status of this patient, genetic testing and/or a genetic consultation of any at-risk family members may be appropriate. METHOD: Two regions of interest in the serpin peptidase inhi bitor, clade A (alpha-1 antiproteinase, antitrypsin), member 1 gene (SERPIN A1), commonly alpha-1 anti-trypsin or A1AT) that are known to contain vari ant alleles resulting in the ? S? phenotype ([id number]:c.863A>T; [id number]) and the ? Z? phenotype (c. 1096G>A; [id number]) are a mplified and genotyped by two separate PCR assays each containing two primers for amplification a nd two probes for detection the normal and nestor iant alleles. ??Genomic DNA used in this testing was isolated from peripheral blood. LIMITATIONS AND DISCLAIMERS: ??Although unlikely, rare variants or polymorphisms (known or unknown) have the potential to interfere with the performance of this test, producing false negative or false positive results. ??When genotyping results are not consistent with other clinical observa tions or test results, additional testing should be considered. This test was developed and its performance vikas acteristics determined by the [facility] ([facility] at [facility]. It has not been cleared or approved by the FDA. The laboratory is regulated under CLIA as qualified to perform high-complexity testing. This erwin t is used for clinical purposes. It should not be regarded as investigational or fo r research. Comment: [VERIFIED DATE]06.19.18 Verified By:Karlie Abarca (Electronic Signature) Specimen Anatomical Collection Method Collection Time Receive d Time (Source) Location / / Volume Laterality Blood specimen 06/13/2018 3:46 PM 018 9:42 (specimen) EDT AM EDT Resulting Agency Comment Spec In Lab Angela Pizarro APRN CHEMISTRY ORDERABLES Performing Organization Address City/State/ZIP [place] [address] (ABNORMAL) A1AT Serum Concentration (06/13/2018 3:46 PM EDT) athologist Signature A1AT 77 (L) 90 - 200 [facility] mg/dL [facility] LABORATORY Comment: To convert [id number] to SI uni t (umol/L), multiply result (mg/dL) by 0.184. Specimen Anatomical Collection Method Collection Time Receive d Time (Source) Location / / Volume Laterality Blood specimen 06/13/2018 3:46 PM 018 3:50 (specimen) EDT PM EDT Resulting Agency Comment Spec In Lab Angela Pizarro SALES ENABLEMENT LEAD CHEMISTRY ORDERABLES Performing Organization Address City/[facility] Care [facility]/[place]IP [place] [address] (ABNORMAL) Differential, Automated (06/13/2018 3:46 PM EDT) P athologist Signature Neutrophils % 59.3 % [facility] LABORATORY Neutr Abs (ANC) 5.29 1.70 - [facility] 6.10 [facility] x10(3)/[employer] LABORATORY Lymphocytes % 29.7 % [facility] LABORATORY Lymphocytes Abs 2.6 0.9 - 3.2 [facility] x10(3)/[facility] LABORATORY Monocytes % 7.0 % [facility] LABORATORY Monocyte Abs 0.6 0.3 - 0.9 [facility] x10(3)/[facility] LABORATORY Eosinophils % 2.1 % [facility] LABORATORY Eosinophils Abs 0.2 0.0 - 0.4 [facility] x10(3)/[facility] LABORATORY Basophils % 0.6 % [facility] LABORATORY Basophils Abs 0.0 0.0 - 0.1 [facility] x10(3)/[facility] LABORATORY Immature Gran % 1.30 % [facility] LABORATORY Comment: Immature granulocytes(IG's)percentage an d absolute count will include metamyelocytes, myelocytes, and promyelo cytes. Blood smears from CBCs yielding IG's will be scanned manually for concor dance. If this scan disagrees with the automated IG or if promyelocytes are not ed, a manual differential will be performed. Lisa Gran Abs 0.12 (H) 0.00 - 0.04 x10(3)/[facility] LABORATORY Specimen Anatomical Collection Method Collection Time Receive d Time (Source) Location / / Volume Laterality Blood specimen 06/13/2018 3:46 PM 018 3:50 (specimen) EDT PM EDT Resulting Agency Comment Spec In Lab Angela Pizarro SALES ENABLEMENT LEAD HEMATOLOGY ORDERABLES Performing Organization Address City/[facility]/[place]IP [place] [address] (ABNORMAL) Hemogram (06/13/2018 3:46 PM EDT) Analysis Performed At Patho logist Time Signature WBC 8.9 4.0 - 9.5 [facility] LABORATORY RBC 4.50 4.00 - GARO PRADOANIKA 5.21 [facility] x10(6)/[employer] LABORATORY Hemoglobin 14.9 11.7 - [facility] PRADOANIKA 15.5 gm/dL [facility] LABORATORY Hematocrit 41.8 35.7 - [place] ANIKA 45.8 % [facility] LABORATORY MCV 92.9 82.6 - [facility] ANIKA 94.4 [facility] LABORATORY MCH 33.1 (H) 27.1 - [place] ANIKA 32.0 pg [facility] LABORATORY MCHC 35.6 (H) 31.7 - [place] ANIKA 35.0 gm/dL [facility] LABORATORY Platelets 274 145 - 357 [facility] x10(3)/[facility] LABORATORY RDWSD 41.0 37.0 - [place] ANIKA 46.0 [facility] LABORATORY RDWCV 11.9 11.5 - EUDOWEBANIKA 14.1 % [facility] LABORATORY MPV 9.5 7.6 - 12.9 [facility] ANIKA [facility] LABORATORY nRBC % Auto 0.0 % [facility] LABORATORY nRBC Abs Auto 0.000 0.000 - [place] ANIKA 0.000 [facility] x10(3)/[employer] LABORATORY Specimen Anatomical Collection Method Collection Time Receive d Time (Source) Location / / Volume Laterality Blood specimen 06/13/2018 3:46 PM 018 3:50 (specimen) EDT PM EDT Resulting Agency Comment Spec In Lab Angela Pizarro APRN HEMATOLOGY ORDERABLES Performing Organization Address City/State/[place] [address] IgA (06/13/2018 3:46 PM EDT) P athologist Signature IgA 287 70 - 400 [place] ANIKA mg/dL [facility] LABORATORY Specimen Anatomical Collection Method Collection Time Receive d Time (Source) Location / / Volume Laterality Blood specimen 06/13/2018 3:46 PM 018 3:50 (specimen) EDT PM EDT Resulting Agency Comment Spec In Lab Angela Braxtonkristine AUGUSTINN IMMUNOLOGY ORDERABLES Performing Organization Address City/[facility]/ZIP Code Phon e Number [address] Tissue transglutaminase, IgA (06/13/2018 3:46 PM EDT) athologist [facility] TTG IgA Ab <1.2 <4.0 [facility] (Negative) [facility] LABORATORY Comment: Test Performed by: [place] [address] Specimen Anatomical Collection Method Collection Time Receive d Time (Source) Location / / Volume Laterality Blood specimen 06/13/2018 3:46 PM 8:50 (specimen) EDT AM EDT Resulting Agency Comment Spec In Lab Angela Braxtonkristine AUGUSTINN IMMUNOLOGY ORDERABLES Performing Organization Address City/[facility]/ZIP Code Phon e Number [address] Ceruloplasmin (06/13/2018 3:46 PM EDT) athologist [facility] Ceruloplasmin 25.0 16.0 - [facility] 45.0 mg/dL [facility] LABORATORY Specimen Anatomical Collection Method Collection Time Receive d Time (Source) Location / / Volume Laterality Blood specimen 06/13/2018 3:46 PM 3:50 (specimen) EDT PM EDT Resulting Agency Comment Spec In Lab Angela Braxtonreganteena SONG CHEMISTRY ORDERABLES Performing Organization Address City/[facility]/ZIP [facility] Phon e Number [address] (ABNORMAL) Ferritin (06/13/2018 3:46 PM EDT) athologist [facility] Ferritin 220 (H) 15 - 150 [facility] ng/mL [facility] LABORATORY Comment: Pediatric reference ranges not verified at [facility], interpret with caution. Reference ranges for females greater demarcus n 50 years of age approach values for men, i.e., 30-400 ng/mL. Specimen Anatomical Collection Method Collection Time Receive d Time (Source) Location / / Volume Laterality Blood specimen 06/13/2018 3:46 PM 018 3:50 (specimen) EDT PM EDT Resulting Agency Comment Spec In Lab Angela Braxtonreganteena SONG CHEMISTRY ORDERABLES Performing Organization Address City/[facility]/ZIP [facility] Phon e Number [address] Iron and TIBC (06/13/2018 3:46 PM EDT) P athologist Signature Iron 73 30 - 150 [facility] mcg/dL [facility] LABORATORY TIBC 334 250 - 450 [facility] mcg/dL [facility] LABORATORY Iron Saturation 22 20 - 50 % [facility] LABORATORY Specimen Anatomical Collection Method Collection Time Receive d Time (Source) Location / / Volume Laterality Blood specimen 06/13/2018 3:46 PM 018 3:50 (specimen) EDT PM EDT Resulting Agency Comment Spec In Lab Angela Lynch Juarez AUGUSTINN CHEMISTRY ORDERABLES Performing Organization Address City/[facility] Phon e Number [address] Protein Electrophoresis, serum (06/13/2018 3:46 PM EDT) Patholo gist Method Time Signature Total Prot 6.8 6.1 - 8.0 [facility] Elec gm/dL [facility] LABORATORY Albumin Elect 4.29 3.60 - 6.00 [facility] gm/dL [facility] LABORATORY Alpha1-Globul 0.12 0.10 - 0.30 [facility] in gm/dL [facility] LABORATORY Alpha2-Globul 0.69 0.40 - 0.90 [facility] in gm/dL [facility] LABORAT[facility] Beta Globulin 1.00 0.50 - 1.00 [facility] gm/dL [facility] Gamma 0.70 0.50 - 1.30 [facility] Globulin gm/dL [facility] LABORATORY M1 Band None None [facility] Detected Detected [facility] LABORATORY Specimen Anatomical Collection Method Collection Time Receive d Time (Source) Location / / Volume Laterality Blood specimen 06/13/2018 3:46 PM 10/09/2 018 3:50 (specimen) EDT PM EDT Resulting Agency Comment Spec In Lab Angela Pizarro SONG CHEMISTRY ORDERABLES Performing Organization Address City/[facility]/ZIP Code Phon e Number [address] IgG (06/13/2018 3:46 PM EDT) athologist Signature IgG 838 700 - 1,600 [facility] mg/dL [facility] LABORATORY Specimen Anatomical Collection Method Collection Time Receive d Time (Source) Location / / Volume Laterality Blood specimen 06/13/2018 3:46 PM 018 3:50 (specimen) EDT PM EDT Resulting Agency Comment Spec In Lab Angela Pizarro SALES ENABLEMENT LEAD IMMUNOLOGY ORDERABLES Performing Organization Address City/[facility]/ZIP Code Phon e Number [address] Mitochondrial Antibody, M2 (06/13/2018 3:46 PM EDT) athologist Signature Mitochon Ab <0.1 <0.1 [facility] (Negative) [facility] LABORATORY Comment: Test Performed by: [facility] [place] [place] [address] Specimen Anatomical Collection Method Collection Time Receive d Time (Source) Location / / Volume Laterality Blood specimen 06/13/2018 3:46 PM 8:50 (specimen) EDT AM EDT Resulting Agency Comment Spec In Lab Angela Pizarro SALES ENABLEMENT LEAD IMMUNOLOGY ORDERABLES Performing Organization Address City/[facility]/ZIP Code Phon e Number [address] Smooth Muscle Antibody (06/13/2018 3:46 PM EDT) athologist Signature Sm Muscle Ab Negative Negative [facility] LABORATORY Comment: ADDITIONAL INFORMATIO N This test was developed and its performa nce characteristics determined by [facility] in a manner co nsistent with CLIA requirements. This test has not been matti ared or approved by the U.S. Food and Drug Administration. Test Performed by: [facility] - [address] [address] Specimen Anatomical Collection Method Collection Time Receive d Time (Source) Location / / Volume Laterality Blood specimen 06/13/2018 3:46 PM 018 8:50 (specimen) EDT AM EDT Resulting Agency Comment Spec In Lab Angela Pizarro SALES ENABLEMENT LEAD IMMUNOLOGY ORDERABLES Performing Organization Address City/[facility] Phon e Number [address] LUTHER (06/13/2018 3:46 PM EDT) P athologist Signature LUTHER Neg Neg [facility] LABORATORY Specimen Anatomical Collection Method Collection Time Receive d Time (Source) Location / / Volume Laterality Blood specimen 06/13/2018 3:46 PM 018 7:40 (specimen) EDT AM EDT Resulting Agency Comment Spec In Lab Angela Pizarro SALES ENABLEMENT LEAD IMMUNOLOGY ORDERABLES Performing Organization Address [facility] Phon e Number [address] HIV Screen, 4th Generation (06/13/2018 3:46 PM EDT) Analysis Performed At Patho logist Time Signature HIV-1/2 Ab and Negative Negative [facility] LABORATORY Comment: This 4th Generation HIV test screens for the presence of the HIV-1 p24 antigen as well as antibodies reactive against H IV-1 and HIV-2. A negative screen does not rule out an acute HIV infection. If acute HIV infection is suspected, testing should be repeated in 2 - 3 week s or HIV nucleic acid testing performed. Specimen Anatomical Collection Method Collection Time Receive d Time (Source) Location / / Volume Laterality Blood specimen 06/13/2018 3:46 PM 018 3:50 (specimen) EDT PM EDT Resulting Agency Comment Spec In Lab Angela Pizarro SALES ENABLEMENT LEAD IMMUNOLOGY ORDERABLES Performing Organization Address City/[facility] Phon e Number [address] Hepatitis C Antibody (06/13/2018 3:46 PM EDT) Analysis Performed At Patho logist Time Signature Hepatitis C Ab Negative Negative [facility] LABORATORY Specimen Anatomical Collection Method Collection Time Receive d Time (Source) Location / / Volume Laterality Blood specimen 06/13/2018 3:46 PM 018 3:50 (specimen) EDT PM EDT Resulting Agency Comment Spec In Lab Angela Lynch Juarez SALES ENABLEMENT LEAD IMMUNOLOGY ORDERABLES Performing Organization Address City/[facility]/ZIP Code Phon e Number [address] Hepatitis B Core Antibody, Total (06/13/2018 3:46 PM EDT) Analysis Performed At Patho logist Time Signature Hep B Core Ab Negative Negative [facility] LABORATORY Specimen Anatomical Collection Method Collection Time Receive d Time (Source) Location / / Volume Laterality Blood specimen 06/13/2018 3:46 PM 018 3:50 (specimen) EDT PM EDT Resulting Agency Comment Spec In Lab Angela Lynch Juarez SALES ENABLEMENT LEAD CHEMISTRY ORDERABLES Performing Organization Address City/[facility]/[place] [address] Hepatitis B Surface Antigen (06/13/2018 3:46 PM EDT) Analysis Performed At Patho logist Time Signature HepB Surface Negative Negative [facility] LABORATORY Specimen Anatomical Collection Method Collection Time Receive d Time (Source) Location / / Volume Laterality Blood specimen 06/13/2018 3:46 PM 018 3:50 (specimen) EDT PM EDT Resulting Agency Comment Spec In Lab Angela Lynch Juarez SALES ENABLEMENT LEAD CHEMISTRY ORDERABLES Performing Organization Address City/[facility]/ZIP [facility] [place] [address] Hepatitis B Surface Antibody (06/13/2018 3:46 PM EDT) P athologist Signature HepB Surface 231.5 IU/L [facility] Ab Quant [facility] LABORATORY Comment: HepB Surface Ab Quant: Unvaccinated: < 8.5 IU/L Vaccinated: > 11.5 IU/L HepB Surface Ab Positive [facility] LABORATORY Comment: Patient is considered to be immune to HB V infection. Expected Results: Vaccinated: Positive Unvaccinated: Negative Specimen Anatomical Collection Method Collection Time Receive d Time (Source) Location / / Volume Laterality Blood specimen 06/13/2018 3:46 PM 018 3:50 (specimen) EDT PM EDT Resulting Agency Comment Spec In Lab Angela Pizarro SALES ENABLEMENT LEAD IMMUNOLOGY ORDERABLES Performing Organization Address City/[facility]/[place] [address] Hepatitis A Antibody, Total (06/13/2018 3:46 PM EDT) Analysis Performed At Patho logist Time Signature Hepatitis A Ab Negative Negative [facility] LABORATORY Specimen Anatomical Collection Method Collection Time Receive d Time (Source) Location / / Volume Laterality Blood specimen 06/13/2018 3:46 PM 018 3:50 (specimen) EDT PM EDT Resulting Agency Comment Spec In Lab Angela Pizarro SALES ENABLEMENT LEAD IMMUNOLOGY ORDERABLES Performing Organization Address City/State/[place] [address] (ABNORMAL) Comprehensive metabolic panel (non-fasting) (06/13/2018 3:46 PM EDT) P athologist Signature Glucose Lvl 273 (H) 65 - 199 [facility] mg/dL [facility] LABORATORY Comment: Diabetes: >=200 mg/dL plus symp toms BUN 10 8 - 18 mg/dL [facility] LABORATORY Creatinine 0.68 (L) 0.70 - 1.20 mg/dL [facility] LABORATORY Sodium 136 135 - 145 mmol/L [facility] LABORATORY Potassium 3.8 3.5 - 5.0 mmol/L [facility] LABORATORY Comment: Please note: ??Patients with WBC >100,00 0 may have falsely elevated Potassium levels. ??For accurate Potassium quantif ication in these patients send serum separator tube (gold top) for subsequent determinations. ??Contact the Clinical Chemistry Laboratory if there are any qu estions. Chloride 100 98 - 107 mmol/L [facility] LABORATORY CO2 19 (L) 22 - 31 mmol/L [facility] LABORATORY Anion Gap 17 (H) 5 - 15 mmol/L [facility] LABORATORY Calcium 9.2 8.5 - 10.5 mg/dL [facility] LABORAT[facility] Total Protein 6.9 6.1 - 8.0 gm/dL [facility] LABORATORY Albumin 4.0 3.2 - 5.2 gm/dL [facility] LABORATORY AST 90 (H) 0 - 30 unit/L [facility] ALT 109 (H) 0 - 30 unit/L [facility] Alk Phos 190 (H) 40 - 104 unit/L [facility] LABORAT[facility] Total Bilirubin 0.2 0.2 - 1.3 mg/dL [facility] LABORATORY Estimated GFR 112 >=60 mL/min/1.73 m?? [facility] LABORATORY Comment: The eGFR was calculated using the CKD-EP I equation. As with all creatinine based estimates of kidney function, eGFR values calculated with the CKD-EPI equation are not accurate in patients wi th acute kidney failure, extremes of body mass or the acutely ill. [email or web address] eGFR 130 >=60 mL/min/1.73 m?? [facility] LABORATORY Comment: The eGFR was calculated using the CKD-EP I equation. As with all creatinine based estimates of kidney function, eGFR values calculated with the CKD-EPI equation are not accurate in patients wi th acute kidney failure, extremes of body mass or the acutely ill. [email or web address] Specimen Anatomical Collection Method Collection Time Receive d Time (Source) Location / / Volume Laterality Blood specimen 06/13/2018 3:46 PM 018 3:50 (specimen) EDT PM EDT Resulting Agency Comment Spec In Lab Angela Pizarro APRN CHEMISTRY ORDERABLES Performing Organization Address City/State/Z[place] [address] [id number] (06/13/2018 3:36 PM EDT) Narrative Jimmy Calvillo PA - 06/13/2018 3:36 PM EDT Jimmy Calvillo PA ? 06/13/2018 ??3:36 PM [facility] Liver Fibrosis Asses sment Report Indication: ?? Fatty liver, abnormal LFT s Performed by: ??[facility] Procedure: Vibration Controlled Transien t Elastography (VCTE) or Fibroscan [place] Protocol: Patient's identity, procedure and site were verified, confirmatory pause performed. Discussed procedure including risks and potential complicati ons. Questions answered. Patient verbalizes understanding and wis hes to proceed with Fibroscan assessment. Patient was placed in the supine positio n with right arm in maximum abduction to allow optimal expos ure of right lateral abdomen. Patient was briefly assessed. T esting was performed in the mid-axillary location. 50Hz Shear Wa ve pulses were applied and the resulting Shear Wave and Propaga tion Speed was detected with a 3.5MHz ultrasonic signal, using t he Fibroscan probe. Skin to liver capsule distance and liver pare nchyma were accessed during the entire examination with the F ibroscan probe. Patient was instructed to breathe normally and a bstain from sudden movements during the procedure. At least ten Sheer Waves were produced; individual measurements of eac h Shear Wave were calculated. Patient tolerated the proced ure well with no complications. 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 In coor dination with Ms. Pizarro, we will order a full laborat ory evaluation for abnormal LFTs and the patient will retur n for a consultation visit with me in the Hepatology clinic w hen results have returned. Angela Lynch Sieglinger SALES ENABLEMENT LEAD PROCEDURE/MINOR SURGICAL ORD ERABLES documented in this encounter Visit Diagnoses Diagnosis Elevated LFTs Other abnormal blood chemistry Upper abdominal pain Abdominal pain, other specified site Irritable bowel syndrome with diarrhea Irritable bowel syndrome Hematochezia Blood in stool Dysphagia, unspecified type Fatty liver Other chronic nonalcoholic liver disease Abnormal liver enzymes Other nonspecific abnormal serum enzyme levels Elevated LFTs Other abnormal blood chemistry Upper abdominal pain Abdominal pain, other specified site Irritable bowel syndrome with diarrhea Irritable bowel syndrome Hematochezia Blood in stool documented in this encounter Care Teams University Manager Relationship Specialty Start Date End Date Lidia Benson APRN PCP - General Family Medicine 02/28/18 08/23/[place] [address] documented as of this encounter
--- OUTSIDE RECORDS SUMMARY | 2022-07-23 00:56 | XMS_ITS | Encounter Summary ---
:1980 Author Organization [facility] [place] [address] Care Team Providers Name Role Phone None Primary Care Provider Unavailable Encounter Details Date Type Department Care Team Description 03/03/2017 Orders Only Psychiatry and Behavioral Peng Deras am [facility] [place] [facility] [place] [address] PSYCHIATRY [phone] [place] [id number] (Wo rk) Social History Tobacco Use Types Packs/Day Years Used Date Smoking Tobacco: Every Day Cigarettes 1 1 Smokeless Tobacco: Never Alcohol Use Standard Drinks/Week Comments No 0 (1 standard drink = 0.6 oz pure alcoho l) Sex Assigned at Date Recorded Not on file documented as of this encounter Progress Notes Sancho Deras Jr., MD - 03/03/2017 6:23 PM EDT Spoke to caregiver at Shaneka's place of discharge today, who stated that they did not receive thecorrect dose of synthroid for her. They received 75 mcg tablets, when her discharge documentation stated she should be taking 25 mcg tablets. They also did not receive her senna prescription. I agreed to send these two prescriptions to [facility] in [facility] after reviewing her discharge paperwork and confirming these were discharge medications. documented in this encounter Plan of Treatment Not on filedocumented as of this encounter Visit Diagnoses Not on filedocumented in this encounter Care Teams Effervescent Salts Compounder Relationship Specialty Start Date End Date None PCP - General 12/09/16 02/27/18 None documented as of this encounter
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
--- OUTSIDE RECORDS SUMMARY | 2022-07-23 00:56 | XMS_ITS | Encounter Summary ---
:1980 Author Organization [facility] [place] [address] Care Team Providers Name Role Phone Lidia Benson APRN Primary Care Provider Encounter Details Date Type Department Care Team Description 06/28/2018 Telephone Gastroenterology at [facility] [place] [place] [address] Social History Tobacco Use Types Packs/Day Years Used Date Smoking Tobacco: Some Days Cigarettes 0.5 1 Smokeless Tobacco: Never Alcohol Use Standard Drinks/Week Comments No 0 (1 standard drink = 0.6 oz pure alcoho l) Sex Assigned at Date Recorded Not on file documented as of this encounter Miscellaneous Notes Telephone Encounter - Paula Alcala - 06/28/2018 4:54 PM EDT With patient at my desk, I booked procedures requested by Hanh. I also booked the coordinated office visits in August. Patient given her information at my desk. documented in this encounter Plan of Treatment Not on filedocumented as of this encounter Visit Diagnoses Not on filedocumented in this encounter Care Teams Strike Operations Officer Relationship Specialty Start Date End Date Lidia Benson APRN PCP - General Family Medicine 02/28/18 08/23/19 [place], [place] [id number] documented as of this encounter
--- OUTSIDE RECORDS SUMMARY | 2022-07-23 00:56 | XMS_ITS | Encounter Summary ---
:1980 Author Organization [place] [address] Care Team Providers Name Role Phone Lidia Benson APRN Primary Care Provider Encounter Details Date Type Department Care Team Description 06/30/2018 Telephone Gastroenterology at [facility] [place] [address] Social History Tobacco Use Types Packs/Day Years Used Date Smoking Tobacco: Some Days Cigarettes 0.5 1 Smokeless Tobacco: Never Alcohol Use Standard Drinks/Week Comments No 0 (1 standard drink = 0.6 oz pure alcoho l) Sex Assigned at Date Recorded Not on file documented as of this encounter Miscellaneous Notes Telephone Encounter - Paula Alcala - 06/30/2018 3:33 PM EDT Shaneka Samano [id number] Diagnosis: Upper endoscopy /Upper EUS/Liver Biopsy and Colonoscopy 1. Have you ever had a colonoscopy before? [] YES [x] NO If Yes, Date of Last [place]: If yes, did you have any problems with the procedure? [] YES [] NO Explain: What type of sedation was used: 2. Do you take any Blood Thinners? [] YES [x] NO If Yes, type: 3. Do you have a Pacemaker or Defibrillator device? [] YES [x] NO If Yes send [employer] message to [facility] END[facility] DEVICE CHECK 4. Are you a diabetic? [x] YES [] NO If yes, controlled by meds or diet? 5. Do you have any Allergies to Eggs, Latex or Medications? [] YES [x] NO If Yes, what: 6. Do you take any Oral Iron Supplements (Including multi vitamins)? [x] YES [] NO Will stop iron 7 days prior 7. Do you have a history of [...] to give us to aid in scheduling? Height:5'3 Weight:195 BMI: ____ Age:37 y.o. documented in this encounter Plan of Treatment Not on filedocumented as of this encounter Visit Diagnoses Not on filedocumented in this encounter Care Teams Plastic Products Sales Representative Relationship Specialty Start Date End Date Lidia Benson APRN PCP - General Family Medicine 02/28/18 08/23/19 [address] [place] [address] documented as of this encounter
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
--- OUTSIDE RECORDS SUMMARY | 2022-07-23 00:56 | XMS_ITS | Encounter Summary ---
:1980 Author Organization [facility] [place] [address] Care Team Providers Name Role Phone Lidia Benson APRN Primary Care Provider Reason for Visit Reason Onset Date Comments Hepatic Disease 10/16/2018 Encounter Details Date Type Department Care Team Description 10/16/2018 [place] [facility]a Leyva [place] [address] Social History Tobacco Use Types Packs/Day Years Used Date Smoking Tobacco: Some Days Cigarettes 0.5 1 Smokeless Tobacco: Never Alcohol Use Standard Drinks/Week Comments No 0 (1 standard drink = 0.6 oz pure alcoho l) Sex Assigned at Date Recorded Not on file documented as of this encounter Miscellaneous Notes Telephone Encounter - Latanya Palomo RN - 10/17/2018 3:23 PM EST Called patient, left [facility] that she will need updated HFP prior to scheduling liver biopsy. Asked her to contact us with her blood draw location preference. Per CECI Morley: Yes, she can have the liver biopsy only. I would first like her to get repeat liver function tests to see if these are still elevated - we can send an order to [facility]/ PCP office and if she can have these done soon that would be very helpful. I will order now. Hien/nurses - can either of you contact her to explain this and send orders? I'll order the liver biopsy once I get her results back. I would then like to see her in clinic 1-2 weeks following the liver biopsy. Thanks! Laci Telephone Encounter - Filomena Leyva - 10/16/2018 2:15 PM EST The pt called today to see if she can just get the liver biopsy. She does not want to do the EGD andthe colo. She did not have the EGD/ EUS and the [place] done on 08/01/18. I am routing to Dr. Calvillo documented in this encounter Plan of Treatment Not on filedocumented as of this encounter Visit Diagnoses Not on filedocumented in this encounter Care Teams Cigar Packer And Picker Relationship Specialty Start Date End Date Lidia Benson APRN PCP - General Family Medicine 02/28/18 08/23/19 [place] [address] documented as of this encounter
--- OUTSIDE RECORDS SUMMARY | 2022-07-23 00:56 | XMS_ITS | Encounter Summary ---
:1980 Author Organization [facility] [place] [address] Care Team Providers Name Role Phone Lidia Benson APRN Primary Care Provider Encounter Details Date Type Department Care Team Description 06/13/2018 Procedure visit Gastroenterology at [facility] Jimmy Calvillo Fatty liver; [facility] CECI Guthrie Abnormal liver enzymes; [place] [address] [facility] Elevated LFTs; [phone] Center Upper abdominal pain; [place], [place] Irritable bowel syndrome with diarrhea; [id number] Hematochezia Social History Tobacco Use Types Packs/Day Years Used Date Smoking Tobacco: Some Days Cigarettes 1 1 Smokeless Tobacco: Never Alcohol Use Standard Drinks/Week Comments No 0 (1 standard drink = 0.6 oz pure alcoho l) Sex Assigned at Date Recorded Not on file documented as of this encounter Last Filed Vital Signs Vital Sign Reading Time Taken Comments Blood Pressure 126/76 06/13/2018 1:56 PM EDT Pulse 102 06/13/2018 1:56 PM EDT Temperature - - Respiratory Rate - - Oxygen Saturation - - Inhaled Oxygen Concentration - - Weight 90.2 kg (198 lb 12.8 oz) 06/13/2018 1:56 PM EDT Height 160 cm (5' 3) 06/13/2018 1:56 PM EDT Body Mass Index 35.22 06/13/2018 1:56 PM EDT documented in this encounter Procedure Notes Jimmy Calvillo PA - 06/13/2018 3:00 PM EDTAssociated Order(s): FIBROSCAN Procedure(s): FIBROSCAN Pre-Procedure Diagnose(s): Elevated LFTs; Upper abdominal pain; Irritable bowel syndrome with diarrhea; Hematochezia [facility] Liver Fibrosis Assessment Report Indication: Fatty liver, abnormal LFTs Performed by: CECI Mijares Procedure: Vibration Controlled Transient Elastography (VCTE) or Fibroscan [place] Protocol: Patient's identity, procedure and site were verified, confirmatory pause performed. Discussed procedure including risks and potential complications. Questions answered. Patient verbalizes understanding and wishes to proceed with Fibroscan assessment. Patient was placed in the supine position with right arm in maximum abduction to allow optimal exposure of right lateral abdomen. Patient was briefly assessed. Testing was performed in the mid-axillarylocation. 50Hz Shear Wave pulses were applied and the resulting Shear Wave and Propagation Speed wasdetected with a 3.5MHz ultrasonic signal, using the Fibroscan probe. Skin to liver capsule distance and liver parenchyma were accessed during the entire examination with the Fibroscan probe. Patient was instructed to breathe normally and abstain from sudden movements during the procedure. At least tenSheer Waves were produced; individual measurements of each Shear Wave were calculated. Patient tolerated the procedure well with no complications. Fibroscan Results: Median kPa: 9.7 Mean IQR: 13% (goal is <30 %) Number of valid measurements: 10 (at least 10 required) Number of invalid measurements: 0 Predicted fibrosis stage: F2 CAP (dB/m): 355 Estimated steatosis grade: 3/3 % hepatocytes affected: > 66% Interpretation: Based on this Fibroscan result, history, clinical examination and review of laboratory and radiological data, this patient likely has stage 2 liver fibrosis and grade 3 steatosis affecting greater than66% of hepatocytes. In coordination with Tuyet Juarez, we will order a full laboratory evaluation for abnormal LFTs and the patient will return for a consultation visit with me in the Hepatology clinic when results have returned. documented in this encounter Plan of Treatment Not on filedocumented as of this encounter Procedures Procedure Name Priority Date/Time Associated Diagnosis Comme nts [id number] Routine 06/13/2018 3:36 PM Elevated LFTs Results for this EDT Upper abdominal pain procedure are in the Irritable bowel results sect ion. syndrome with diarrhea Hematochezia documented in this encounter Results [id number] (06/13/2018 3:36 PM EDT) Narrative Jimmy Calvillo PA - 06/13/2018 3:36 PM EDT Jimmy Calvillo PA ? 06/13/2018 ??3:36 PM [facility] Liver Fibrosis Asses sment Report Indication: ?? Fatty liver, abnormal LFT s Performed by: ??CECI Mijares Procedure: Vibration Controlled Transien t Elastography (VCTE) or Fibroscan [place] Protocol: Patient's identity, procedure and site were [...] visit with me in the Hepatology clinic mickie underwood results have returned. Angela Pizarro APRN PROCEDURE/MINOR SURGICAL ORD ERABLES documented in this encounter Visit Diagnoses Diagnosis Fatty liver Other chronic nonalcoholic liver disease Abnormal liver enzymes Other nonspecific abnormal serum enzyme levels Elevated LFTs Other abnormal blood chemistry Upper abdominal pain Abdominal pain, other specified site Irritable bowel syndrome with diarrhea Irritable bowel syndrome Hematochezia Blood in stool documented in this encounter Care Teams Graphite Grinder Relationship Specialty Start Date End Date Lidia Benson APRN PCP - General Family Medicine 02/28/18 08/23/[address] [place] [address] documented as of this encounter
--- OUTSIDE RECORDS SUMMARY | 2022-07-23 00:56 | XMS_ITS | Encounter Summary ---
:1980 Author Organization [facility] [place] [address] Care Team Providers Name Role Phone None Primary Care Provider Unavailable Encounter Details Date Type Department Care Team Description 03/03/2017 Orders Only Psychiatry Deshaun Chapman MD [facility] [place] [address] PSYCHIATRY DEPT [phone] [place], [place] [address] (Wo rk) Social History Tobacco Use Types Packs/Day Years Used Date Smoking Tobacco: Every Day Cigarettes 1 1 Smokeless Tobacco: Never Alcohol Use Standard Drinks/Week Comments No 0 (1 standard drink = 0.6 oz pure alcoho l) Sex Assigned at Date Recorded Not on file documented as of this encounter Miscellaneous Notes Addendum Note - Deshaun Chapman MD - 03/03/2017 4:01 PM EDT Addended by: DESHAUN CHAPMAN on: 03/03/2017 04:01 PM Modules accepted: Orders documented in this encounter Plan of Treatment Not on filedocumented as of this encounter Visit Diagnoses Not on filedocumented in this encounter Care Teams Biofuels Manager Relationship Specialty Start Date End Date None PCP - General 12/09/16 02/27/18 None documented as of this encounter
--- OUTSIDE RECORDS SUMMARY | 2022-07-23 00:56 | XMS_ITS | Encounter Summary ---
:1980 Author Organization [facility] [place] [address] Care Team Providers Name Role Phone None Primary Care Provider Unavailable Reason for Visit Reason Onset Date Comments Prior Authorization 02/22/2017 [facility] PSY review jorge l ection 02/28/17 Encounter Details Date Type Department Care Team Description 02/22/2017 Telephone Psychiatry Teagan Vyas, Prior Authorization [facility] ([facility] PSY review Drive [facility] correction 02/28/17) [place] [address] PSYCHIATRY [place] [address] Social History Tobacco Use Types Packs/Day Years Used Date Smoking Tobacco: Every Day Cigarettes 1 1 Smokeless Tobacco: Never Alcohol Use Standard Drinks/Week Comments No 0 (1 standard drink = 0.6 oz pure alcoho l) Sex Assigned at Date Recorded Not on file documented as of this encounter Miscellaneous Notes Telephone Encounter - Erin Laurent - 02/22/2017 1:58 PM EDT Correction to previous auth note: review due 02/28/17with [facility]/Skip per corrected auth. Auth scannedinto chart. Notes - phone note with routing done documented in this encounter Plan of Treatment Not on filedocumented as of this encounter Visit Diagnoses Not on filedocumented in this encounter Care Teams Pewter Finisher Relationship Specialty Start Date End Date None PCP - General 12/09/16 02/27/18 None documented as of this encounter
--- OUTSIDE RECORDS SUMMARY | 2022-07-23 00:56 | XMS_ITS | Encounter Summary ---
:1980 Author Organization [facility] [place] [address] Care Team Providers Name Role Phone None Primary Care Provider Unavailable Reason for Visit Auth/Cert Specialty Diagnoses / Procedures Referred By Contact Refer red To Contact Diagnoses Schizophrenia SCHIZZOAFFECTIVE D/O Procedures PSY IPI Referral ID Status Reason Start Date Expiration Date Visits Requ ested Visits Authorized [id number] 1 1 Encounter Details Date Type Department Care Team Description 02/21/2017 - Hospital Encounter 2 [place] [facility] Clark Vyas MD [facility] [place] [address] Fall, initial 03/03/2017 Unit Deshaun Henriquez MD [facility] [place] [address] [place] [id number] Social History Tobacco Use Types Packs/Day Years Used Date Smoking Tobacco: Every Day Cigarettes 1 1 Smokeless Tobacco: Never Tobacco Cessation: Ready to Quit: No; Co unseling Given: No Alcohol Use Standard Drinks/Week Comments No 0 (1 standard drink = 0.6 oz pure alcoho l) Sex Assigned at Date Recorded Not on file documented as of this encounter Last Filed Vital Signs Vital Sign Reading Time Taken Comments Blood Pressure 132/74 03/03/2017 8:35 AM EDT Pulse 105 03/03/2017 8:35 AM EDT Temperature 36.8 ??C (98.2 ??F) 03/03/2017 8:35 AM EDT Respiratory Rate 18 03/03/2017 8:35 AM EDT Oxygen Saturation 96% 03/03/2017 8:35 AM EDT Inhaled Oxygen Concentration - - Weight 90.7 kg (200 lb) 02/27/2017 7:48 AM EDT Height 160 cm (5' 2.99) 02/21/2017 5:12 PM EDT Body Mass Index 35.44 02/21/2017 5:12 PM EDT documented in this encounter Discharge Summaries Albert Rosenthal MD - 02/28/2017 12:13 PM EDT Discharge Summary Patient Name: Shaneka Samano Patient Age: 36 y.o. Language: [place] Race: White Ethnicity: Not nor Admit date: 02/21/2017 Discharge date and time: 03/03/17 2:00pm Attending Physician: Dr. Deshaun Noble MD Discharge Physician: Dr. Albert Rosenthal MD Discharge Diagnosis: schizophrenia Follow-up Recommendations for Providers: Please monitor the patient's condition, and adjust medications accordingly 1. Abilify maintena injection 400 mg received on 02/24; prior authorization already approved. Follow-up Providers/Appointments: (Name of provider, location, and date if not listed below) General Instructions [facility] [address] [facility] [address] Fax [phone] attn amna Ocampo [facility] Mar 10 2017 @ 1 pm Amna Sandhu will package pick up tomorrow at [facility] at 1:30 pm. [facility] [phone] A referral has been made for a start of care at the [facility] Bed location on TueMarch 04 . [facility] Ctr Lidia Benson [facility] [phone] March 10 11:15am *Please bring your medications with you so they can update them in their system* [facility] [phone] Future Appointments and Orders Future Appointments Provider Department Dept Phone 03/16/2017 12:00 PM [facility] DX ROOM 1 [facility] Xray [phone] Please go to [facility] Lead Area 3T ([place] Location). 03/16/2017 1:00 PM Matthew Andrews MD Orthopaedics [phone] Reason for Hospitalization: safety, stabilization and medication management Discharge Diagnoses (Hospital Problems) and Secondary Diagnoses (Chronic Problems): Active Hospital Problems Diagnosis ??? Paranoid schizophrenia Resolved Hospital Problems Diagnosis Date Resolved No resolved problems to display. Active Non-Hospital Problems Diagnosis ??? Fall Discharge DSM 5 Diagnosis: Schizophrenia Operations/Major Procedures: none History of Presentation: As per the 02/21/2017 admission H&P: Pt is a 36 yo female h/o schizophrenia who is being admitted to in psychiatry for suicide attempt by jumping from a moving car. ? Patient states she jumped out of dad's car Tuesday evening while moving to kill herself. Denies paranoid delusion back then and denies AH back then. Pt was talking w/ dad, denied arguing, has trouble remembering things, then she suddenly had a thought of jumping off the car. Denies any major recent life changes or stressors. Glad to be alive, denies having guns at home, denies feeling hopeless. Looks forward to seeing with her friends. ? Patient claims she has been taking abilify everyday. At home, pt denies paranoid delusion, government trying to anna after her, or AH. Denies any SI/self harm urges at least for a month. Has been going to app at [facility]. Hospital Course: Shaneka Samano was voluntarily admitted to inpatient psychiatry for safety, stabilization, and medication optimization. Standard admission labs were ordered and pertinent results are located below. During the course of the hospitalization, team found out that pt had more recent suicide attempts including by asphyxiation and overdosing on sister's medication. However, pt consistently denied any SIduring the course of the hospitalization, was cooperative w/ the team, and agreed to be started on ab ilify maintena injectable 400 mg IM on 02/24/17. [place] Medicaid prior authorization for abilify maintena was obtained for 1 year and was sent to [facility]. Pt did not cause any behavioral disturbances and cooperated w/ the treatment planning during her stay. On 03/01/17 wound care noticed one of her wounds on her left foot looked more red. Patient was examined and cellulitis was suspected. Medicine consult recommended bactrim. Patient responded well, never experienced any fevers, bodyaches, or chills. She had a mild leukocytosis, but normalized after initia ting antibiotic treatment and was scheduled to finish up PO antibiotics as outpatient, and felt to be stable medically. She will continue ASA 81mg BID for DVT prophylaxis, and resume her remaining homemedications. OT saw the pt and recommended a home evaluation for a safety assessment, but she was ambulating fineand able to perform her ADLs. On the day of discharge, the patient denied thoughts of suicide, homicide, or violence. Follow up was scheduled as described below, and this information was provided to the patient in her After Visit Summary. Patient was also provided with emergency contact information. Vital Signs at Discharge: BP: 132/74, Heart Rate: 105, Temp: 36.8 ??C (98.2 ??F), Resp: 18, Height: 160 cm (5' 2.99) (02/21/17 1712) Weight - Scale: 90.7 kg (200 lb) (02/27/17 0748) Functional and Cognitive Status: improved Important Lab Data: Component Latest Ref Rng & Units 03/02/2017 WBC 4.0 - 9.5 x10(3)/mcL 8.6 RBC 4.00 - 5.21 x10(6)/mcL 3.72 (L) Hemoglobin 11.7 - 15.5 gm/dL 11.7 Hematocrit 35.7 - 45.8 % 34.3 (L) MCV 82.6 - 94.4 fL 92.2 MCH 27.1 - 32.0 pg 31.5 MCHC 31.7 - 35.0 gm/dL 34.1 Platelets 145 - 357 x10(3)/mcL 412 (H) RDWSD 37.0 - 46.0 fL 45.1 RDWCV 11.5 - 14.1 % 13.3 MPV 7.6 - 12.9 fL 9.0 nRBC % Auto % 0.0 nRBC Abs Auto 0.000 - 0.000 x10(3)/mcL 0.000 Neutrophils % % 63.6 Neutr Abs (ANC) 1.70 - 6.10 x10(3)/mcL 5.47 Lymphocytes % % 23.9 Lymphocytes Abs 0.9 - 3.2 x10(3)/mcL 2.1 Monocytes % % 6.0 Monocyte Abs 0.3 - 0.9 x10(3)/mcL 0.5 Eosinophils % % 4.6 Eosinophils Abs 0.0 - 0.4 x10(3)/mcL 0.4 Basophils % % 0.6 Basophils Abs 0.0 - 0.1 x10(3)/mcL 0.0 Immature Gran % % 1.30 Lisa Gran Abs 0.00 - 0.04 x10(3)/mcL 0.11 (H) Component Latest Ref Rng & Units 02/28/2017 Glucose Lvl 65 - 199 mg/dL 158 BUN 8 - 18 mg/dL 7 (L) Creatinine 0.70 - 1.20 mg/dL 0.70 Sodium 135 - 145 mmol/L 139 Potassium 3.5 - 5.0 mmol/L 3.9 Chloride 98 - 107 mmol/L 104 CO2 22 - 31 mmol/L 20 (L) Anion Gap 5 - 15 mmol/L 15 Calcium 8.5 - 10.5 mg/dL 9.2 Estimated GFR >=60 >60 Important Studies: none Pending Labs and Studies: none ECT, Operations, or Other Major Procedures: None. Discharge Medications: ( Reviewed at time of discharge, indication for use included): Your Medications New Medications Dose Details ibuprofen 600 mg Tab Commonly known as: ADVIL;MOTRIN Take 1 tablet by mouth every 6 hours as needed for Pain or Fever (+headache) for up to 7 days. 600 mg Quantity: 30 tablet Refills: 12 sulfamethoxazole-trimethoprim 800-160 mg Tab Commonly known as: BACTRIM DS Take 1 tablet by mouth 2 times daily for 10 days. 1 tablet Quantity: 20 tablet Refills: 0 Continued medications with new dosing Dose Details * ARIPiprazole 400 mg Ssrr Commonly known as: EMMANUEL BURCIAGA Inject 2 mLs into the muscle every 30 days. What changed: You were already taking a medication with the same name, and this prescription was added. Make sure you understand how and when to take each. 400 mg Quantity: 1 each Refills: 0 * ARIPiprazole 30 mg Tab Commonly known as: ABILIFJory Take 1 tablet by mouth daily for 7 days. What changed: - medication strength - when to take this 30 mg Quantity: 7 tablet Refills: 0 * Notice: This list has 2 medication(s) that are the same as other medications prescribed for you. Read the directions carefully, and ask your doctor or other care provider to review them with you. Continued medications, unchanged Dose Details aspirin 81 mg Chew Take 81 mg by mouth 2 times daily for 15 days. 81 mg Quantity: 30 tablet Refills: 0 bisacodyl 5 mg Tbec Commonly known as: DULCOLAX Take 1 tablet by mouth 2 times daily as needed for Constipation. 5 mg Quantity: 30 tablet Refills: 0 levothyroxine 25 mcg Tab Commonly known as: SYNTHROID Take 25 mcg by mouth daily. 25 mcg Refills: 0 metFORMIN 1,000 mg Tab Commonly known as: GLUCOPHAGE Take 1,000 mg by mouth 2 times daily (with meals). 1000 mg Refills: 0 polyethylene glycol 17 gram Pwpk Commonly known as: MIRALAX Take 17 g by mouth daily. 17 g Quantity: 14 each Refills: 0 senna-docusate 8.6-50 mg Tab Commonly known as: PERICOLACE Take 2 tablets by mouth 2 times daily. 2 tablet Quantity: 60 tablet Refills: 11 topiramate 25 mg Cpsp Commonly known as: TOPAMAX Take 25 mg by mouth daily. 25 mg Refills: 0 STOPPED Medications acetaminophen 500 mg Tab Commonly known as: TYLENOL oxyCODONE 5 mg Tab Commonly known as: ROXICODONE Antipsychotic Quality Measure (select one of three reasons): No Updated Allergies/ADRs: Allergies Allergen Reactions ??? Percocet [Oxycodone-Acetaminophen] Patient cannot remember reaction, but states it was mild Immunizations Given this Hospitalization: There is no immunization history on file for this patient. Smoking Status at Discharge: History Smoking Status ??? Current Every Day Smoker ??? Packs/day: 1.00 ??? Years: 1.00 ??? Types: Cigarettes Smokeless Tobacco ??? Never Used Instructions Given to Patient at Discharge: There are no outpatient Patient Instructions on file for this admission. Discharge References/Attachments None Discharge to: [facility] Discharge Condition/Prognosis: Satisfactory and stable condition. Prognosis is dependent on patient's participation in ongoing treatment and adherence with prescribed medications. Signed: Albert Rosenthal MD 03/03/2017 Inpatient Provider Contact Information: Emergency Services (Crisis Line): [phone] [facility]: [phone] Hospital Main Line: [phone] Click refresh button immediately prior to signing DCS to ensure all ramirez are updated. Associated attestation - Deshaun Noble MD - 03/03/2017 3:24 PM EDT I have personally seen and examined the patient. The patient denies suicidal ideations or homicidal ideations or paranoia. The patient is future oriented and has specific practical and behavioral goalsupon leaving the hospital. Please see progress note for complete Mental Status Exam and assessment. Alcohol Use [x ] Patient does not meet criteria for unhealthy alcohol use. [ ] Met individually with the patient to review current unhealthy alcohol use (based on Audit C score) to provide education about the general risks of health problems that could occur as a result of current alcohol use. Discussed specific impact of continued use on patient???s current medical issues. Encouraged patient to consider either decreasing the amount of alcohol consumed to levels consistent with low risk or to become abstinent. [ ] Met with the patient to offer counseling/support for alcohol treatment at time of discharge. Patient maintains they are not interested in quitting and declined information/referral related to alcohol treatment programs. The patient declined prescription for medications to assist with alcohol. [ ] Patient expressed interest in quitting alcohol while in the hospital. Prescriptions for alcohol treatment mediations were offered and the patient was referred to an addictions treatment program. Drug Use Disorder [ ] Met with the patient to offer counseling/support for addictions treatment at time of discharge. Patient maintains they are not interested in quitting and declined information/referral related to addiction treatment programs. The patient declined prescription for medications to assist with addiction treatment. [ ] Patient expressed interest in addiction treatment while in the hospital. Prescriptions for addiction treatment mediations were offered and the patient was referred to an addictions treatment program. Tobacco Use [ ] Patient is a non-smoker. [ ] Met with the patient to offer counseling/support for smoking cessation at time of discharge. Patient maintains they are not interested in quitting and declined information/referral related to smoking cessation counseling. Declined prescription for medications to assist with smoking cessation [x ] Patient expressed interest in quitting smoking while in the hospital. Prescriptions for nicotine replacement mediations were offered and information was given to the patient about smoking cessation counseling programs in their state. [x ] [facility] - QUIT HELP BY PHONE - Respectful and supportive guidance to assist your quit. 802Quits??? phone coaches are here to help you quit smoking. We have made the initial connection to 2-207-[employer] Pow[employer]NOW (708-0425) and they will connect you to a personalized, supportive, and private way to get help for free. 806Quits Quit Coaches will mail you free Nicotine Replacement Therapy, like gum, patches and lozenges, when you work with them. You can also get free self-help information sent to you. Call 0-018-KZFZ-NOW to learn more and take the next step toward a smoke-free life. If you have trouble accessing our quit resources, please call to reach the [facility] Cessation Specialist. - See more at: [email or web address] PHONE & FAX NUMBERS FOR QUIT PARTNERS Free cessation classes are offered at most [facility] in [place]. Quit Partners offer quit coaching in groups or one-on-one. To make a referral for in-person quit coaching by a trained tobacco sex offender treatment professional, fax the referral form directly to the fax number below of the closest Quit Partner location. [place], [place], [place], [place] [address] [place], [place], [place] [facility], [place] [facility], [place] [facility], [place] [facility], [place] [facility], [place] [facility], [place] [facility], [place] The patient is ready for discharge with aftercare per AVS. Greater than 30 minutes was spent coordinating discharge for this patient and included [id number] interview and exam, explanation of after visit instructions and medications to the patient and necessary caregivers, documentation, and prescription management. documented in this encounter Discharge Instructions Discharge InstructionsAngela Olivas RN - 03/03/2017 11:51 AM EDT [facility] [address] [address] Fax [phone] attn amna CHINO Mar 10 2017 @ 1 pm Amna Sandhu will package pick up tomorrow at [facility] at 1:30 pm. [facility] [phone] A referral has been made for a start of care at the Care Bed location on TueMarch 04 . [facility] Ctr Lidia Benson [facility] [phone] March 10 11:15am *Please bring your medications with you so they can update them in their system* [facility] Bed [facility] [phone] documented in this encounter Medications at Time of Discharge Medication Sig Dispensed Refills Start Date End Date levothyroxine (SYNTHROID) Take by mouth 0 25 mcg TabletIndications: daily. Indications: unknown dose unknown dose aspirin 81 mg Tablet, Take 81 mg by mouth 30 tablet 0 03/0303/18/2017 Chewable 2 times daily for 15 days. sulfamethoxazole-trimethop Take 1 tablet by 20 tablet 0 03/13/2017 rim (BACTRIM DS) 800-160 mouth 2 times daily mg Tablet for 10 days. ibuprofen (ADVIL;MOTRIN) Take 1 tablet by 30 tablet 12 03/0303/10/2017 600 mg Tablet mouth every 6 hours as needed for Pain or Fever (+headache) for up to 7 days. bisacodyl (DULCOLAX) 5 mg Take 1 tablet by 30 tablet 0 02/0303/16/2017 Tablet, Delayed Release mouth 2 times daily (E.C.) as needed for Constipation. polyethylene glycol Take 17 g by mouth 14 each 0 02/22/20 17 03/16/2017 (MIRALAX) 17 gram Powder daily. in Packet metFORMIN (GLUCOPHAGE) Take 1,000 mg by 0 03/16/2017 1,000 mg Tablet mouth 2 times daily (with meals). topiramate (TOPAMAX) 25 mg Take 25 mg by mouth 0 07/13/2019 Capsule, Sprinkle daily. ARIPiprazole (ABILIFY) 30 Take 1 tablet by 0 04/0 03/201703/16/2017 mg Tablet mouth nightly. metFORMIN (GLUCOPHAGE) Take 1,000 mg by 0 03/16/2017 1,000 mg Tablet mouth 2 times daily (with meals). 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 1350 Syeda Anthony - 03/03/2017 10:55 AM EDT Inpatient Daily Group Note Group: Goals Notes: Did not attend. SYEDA ANTHONY 03/03/2017 Albert Rosenthal MD - 03/03/2017 7:02 AM EDT Psychiatry Inpatient - Progress Note 03/03/2017 ID: Shaneka Samano is a 36 y.o. female admitted on 02/21/2017 for suicide attempt by jumping from amoving car. Hospital day 10. Current Working Primary Diagnosis: Schizophrenia Pertinent medical issues being addressed: Foot fracture, cellulitis of left foot Interval History: (1,1,4) Narrative: -Overnight, still has foot pain, improved with PRNs, has not needed an Oxy since early AM -Patient seen by medicine for infection: recs below -Appetite: good, eating well -Sleeping: yes, 6.5 hours -Depression 0/10, Anxiety 0 /10 -Mood:good - Denies SI/HI or any hallucinations -Looking forward to leaving, attended groups Review of Systems: (0,1,2) CONST pain on left foot, no fevers or chills CV RESP GI Denies constipation NEURO No headaches, PSYCH See above. Physical Exam: (1,6,9) Vitals (24hr Range): Temp: [36.8 ??C (98.2 ??F)-36.9 ??C (98.4 ??F)] Resp: [16-18] Heart Rate: [105-114] BP: (132)/(72-74) SpO2: [96 %] Patient Vitals for the past 168 hrs: Weight 02/27/17 0748 90.7 kg (200 lb) Musculoskeletal System: Boot on left foot for support, no crutches, able to ambulate freely Mental Status Exam: ?? Appearance: obese woman casually dressed with resolving hematoma on left side of face. ?? Behavior: Cooperative, responds appropriately to questions and maintains fair eye contact ?? Speech: Normal rate, pitch, and prosody, appropriate volume ?? Language: [place]er, fluent ?? Mood: good ?? Affect: restricted ?? Thought Process: Linear, goal-directed, talks about dispo options ?? Associations: intact ?? Thought Content: no suicidal or homicidal ideation ?? Perception: no auditory or visual hallucinations ?? Orientation: Alert and oriented to person and place Attention/Concentration: fair/fair ?? Cognition: grossly intact ?? Memory: remote and recent memory intact ?? Fund of Knowledge: ?? Insight: limited ?? Judgment: poor Current Medications: Scheduled: ??? sulfamethoxazole-trimethoprim 1 tablet Oral 2 times per day ??? enoxaparin 40 mg Subcutaneous Nightly ??? metFORMIN 500 mg Oral BID WC ??? ARIPiprazole 30 mg Oral Daily ??? aspirin 81 mg Oral Daily ??? levothyroxine 25 mcg Oral QAM ??? topiramate 100 mg Oral Daily ??? nicotine 21 mg Transdermal Daily And ??? Patch Verification 1 patch Transdermal BID And ??? nicotine 1 patch Transdermal Daily ??? senna-docusate 2 tablet Oral BID PRN: oxyCODONE, hydrOXYzine, melatonin, traZODone, ibuprofen, calcium carbonate, ondansetron, nicotine polacrilex Labs: Last 24 Hours: No results found for this or any previous visit (from the past 24 hour(s)). Psychiatry Labs: Preg: No results found for: HCGQUAL, HCGQUANT Heme: Lab Results Component Value Date WBC 8.6 03/02/2017 HGB 11.7 03/02/2017 HCT 34.3 (L) 03/02/2017 PLATELET 412 (H) 03/02/2017 MCV 92.2 03/02/2017 NEUTROABS 5.47 03/02/2017 Lab Results Component Value Date HA1C 5.8 (H) 02/28/2017 Chem: Lab Results Component Value Date NA 139 02/28/2017 K 3.9 02/28/2017 CL 104 02/28/2017 CO2 20 (L) 02/28/2017 BUN 7 (L) 02/28/2017 GLUCOSE 158 02/28/2017 Lab Results Component Value Date CALCIUM 9.2 02/28/2017 LFTs: No results found for: ALT, AST, GGT, ALKPHOS, BILITOT, AMMONIA Coags: No results found for: PTT, PT, INR Thyroid: Lab Results Component Value Date TSH 2.33 02/22/2017 Lipids and HgbA1C: No results found for: CHLPL, HDL, CHOLHDL, LDLCHOL, LDLDIRECT, TRIG Lab Results Component Value Date HA1C 5.8 (H) 02/28/2017 Vit Lvls: No results found for: [id number], SFOLATE UA: No results found for: GLUCOSEU, KETONESUA, PROTEINUADIP, BLOODUADIP, LEUKOESTERUA, NITRATEUA, WBCUA (May not represent most recent UA results. See eD-H labs for more details.) Tox: No results found for: ETHANOL, ACTMNPHEN, SALICYLATE, LEAD No results found for: UDAUSCREEN Rx Lvls: No results found for: LITHIUM, CARBAMAZEPIN, VALPROATE, LAMOTRIGINE, CLOZAPINE Assessment: Shaneka Samano is a 36 y.o. female admitted on 02/21/2017 for suicide attempt by jumping out of a moving car. Patient has had history of unpredictable suicide attempts (Ex: overdose, asphyxiation), but she maintains that she does not currently have and SI/HI, but does have a chronically high baseline for impulsive behavior. However, this appears to be adequately controlled with her injectable medication. Willcontinue abilify PO for full 2-week course and coordinate dispo option for monthly injectable. Plan for dispo today in early afternoon today Left foot cellulitis improving, CBC showed downtrending WBC, No fever. Current Working Primary Diagnosis: Schizophrenia Clinical Global Impression Severity of illness: Considering your total clinical experience with this particular population, howmentally ill is the patient at this time? 4 = Moderately ill Global improvement: Rate total improvement compared to condition at admission, how much has she changed? Minimally Improved Plan: ?? # Schizophrenia ?? DC Today in early afternoon ?? Therapeutic milieu ?? Inpt groups ?? Continue abilify 30 mg daily, continue until 03/10/17 ?? Abilify maintena 400 mg IM given on 02/24 ?? # Foot pain/leg swelling s/p trauma #cellulitis of left foot -Per medicine: -Initiated DS BACTRIM PO BID, first dose 02/28/17, will continue as medicine follows patient, borders outlined -Vitals Q4H -Restart lovenox 40mg subQ nightly --> DC on discharge -Per Ortho: continue ASA 81 mg BID on discharge for DVT prophylaxis. -Oxycodone for pain. BID tomorrow, and then one for the day after. -Ibuprofen 600mg Q6H PRN -OT To re-evaluate --> recommend visit by VNA or home eval when returning home. VNA request put in for wound eval and home eval #Stitches on scalp -Removed 03/01/17 -healing well, no signs of infection # Disposition: -After stabilization, patient expected to go to care bed on ?? Additional Information: Reasons for continued hospitalization: Warrants ongoing inpatient admission for safety, stabilization, and any other therapeutic intervention that could conceivably improve the patient's condition (including medication management, group psychotherapy, establishing adequate outpatient care). Outpatient Care: Provider Name Date Contacted By Treatment Team Psychiatric prescriber Kandace Hassan 02/22 Therapist None PCP None Patient Instruction/Education Provided: Patient provided verbal instructions during rounds regardingthe treatment plan. I have reviewed and agree with the multidisciplinary treatment plan. I certify that the patient requires [x] inpatient care for psychiatric treatment that could reasonably be expected to improve the patient's condition and/or diagnostic study. Signed By: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 cellulitis with wound for entry and underlying diabetes, and physical exam is concerning for cellulitis with increased temperature, erythema, and tenderness. She is slightly tachycardic in last 24 hours (80-100s), but on review of flowsheet, HRhas ranged from 90-120s since admission, and no other signs of sepsis. CBC obtained yesterday, teena trated mild leukocytosis (9>10.6). She has received 1 day of BID bactrim and has had stable vitals, improved erythema on exam and improved pain and resolution of paraesthesias. Recommend continuing Bactrim for now with repeat CBC 03/02/17. ?? Recommendations -Please obtain CBC tomorrow morning (03/02) -Please continue to check vitals q 4 hours -Continue Bactrim 1DS tablet BID -Continue wound care -Continue ppx lovenox given ankle fracture with boot -If any worsening in erythema, swelling, paraesthesias, tachycardia, decrease in blood pressure, fevers etc. please contact medicine at [phone] ?? Thank you for this consult. Please contact the consult pager [phone] with any questions. Medicine will continue to follow. ?? Case discussed with Dr. Davis. ?? Angela Guidry MD PGY3, Department of Internal Medicine Consult Pager [phone] 02/28/2017 Associated attestation - Sandra Davis MD - 03/02/2017 9:11 AM EDT I have seen the patient and reviewed the resident's history and I agree with the details as written.The assessment and plan were formulated in discussion with me and I agree with them as documented. Patient tolerating bactrim DS with clinical improvement. Continue PO antibiotics at this time. Givenpuncture wounds on initial admission to surgical service, per CDC guidelines the patient should havea Td booster. Unclear vaccination history and allergy profile. Please obtain this information and give Td booster prior to discharge if appropriate. MD Ariadna GONZALES Ivan, MD - 03/01/2017 7:37 AM EDT Psychiatry Inpatient - Progress Note 03/01/2017 ID: Shaneka Samano is a 36 y.o. female admitted on 02/21/2017 for suicide attempt by jumping from amoving car. Hospital day 8. Current Working Primary Diagnosis: Schizophrenia Pertinent medical issues being addressed: Foot fracture Interval History: (1,1,4) Narrative: -Overnight, patient had breakout pain of foot, asked for PRN oxycodone, but was not due till morning, give 1x order of tylenol with relief. -Patient seen by medicine for infection: recs below -Appetite: good, eating well -Sleeping: yes, 5 hours -Depression 0/10, Anxiety 4 /10 -Mood:fine - Denies SI/HI or any hallucinations -Says foot is painful, but able to work and the medications help. Surgery to come by later today to remove stitches. Review of Systems: (0,1,2) CONST Denies headaches or fevers CV Denies chest pain or palpitations RESP Denies dyspnea or cough GI Denies constipation NEURO No headaches, endorses foot pain, but OK with medications PSYCH See above. Physical Exam: (1,6,9) Vitals (24hr Range): Temp: [36.5 ??C (97.7 ??F)-36.9 ??C (98.4 ??F)] Resp: [14-18] Heart Rate: [84-107] BP: (110-141)/(67-84) SpO2: [97 %-99 %] Patient Vitals for the past 168 hrs: Weight 02/27/17 0748 90.7 kg (200 lb) Musculoskeletal System: Boot on left foot for support, no crutches, able to ambulate freely Mental Status Exam: ?? Appearance: obese woman casually dressed with resolving hematoma on left side of face. ?? Behavior: Cooperative, responds appropriately to questions and maintains fair eye contact ?? Speech: Normal rate, pitch, and prosody, appropriate volume ?? Language: [place], fluent ?? Mood: OK ?? Affect: restricted ?? Thought Process: Linear, goal-directed, talks about dispo options, and remembers surgery appts. ?? Associations: intact ?? Thought Content: no suicidal or homicidal ideation ?? Perception: no auditory or visual hallucinations ?? Orientation: Alert and oriented to person and place Attention/Concentration: fair/fair ?? Cognition: grossly intact ?? Memory: remote and recent memory intact ?? Fund of Knowledge: appropriate for education ?? Insight: poor ?? Judgment: poor Current Medications: Scheduled: ??? sulfamethoxazole-trimethoprim 1 tablet Oral 2 times per day ??? enoxaparin 40 mg Subcutaneous Nightly ??? metFORMIN 500 mg Oral BID WC ??? ARIPiprazole 30 mg Oral Daily ??? aspirin 81 mg Oral Daily ??? levothyroxine 25 mcg Oral QAM ??? topiramate 100 mg Oral Daily ??? nicotine 21 mg Transdermal Daily And ??? Patch Verification 1 patch Transdermal BID And ??? nicotine 1 patch Transdermal Daily ??? senna-docusate 2 tablet Oral BID PRN: oxyCODONE, hydrOXYzine, melatonin, traZODone, ibuprofen, calcium carbonate, ondansetron, nicotine polacrilex Labs: Last 24 Hours: Recent Results (from the past 24 hour(s)) Basic Metabolic Panel (non-fasting) Result Value Ref Range Glucose Lvl 158 65 - 199 mg/dL BUN 7 (L) 8 - 18 mg/dL Creatinine 0.70 0.70 - 1.20 mg/dL Sodium 139 135 - 145 mmol/L Potassium 3.9 3.5 - 5.0 mmol/L Chloride 104 98 - 107 mmol/L CO2 20 (L) 22 - 31 mmol/L Anion Gap 15 5 - 15 mmol/L Calcium 9.2 8.5 - 10.5 mg/dL Estimated GFR >60 >=60 Hemoglobin A1c Result Value Ref Range Hemoglobin A1C 5.8 (H) 4.3 - 5.6 % Est Avg Gluc 120 mg/dL Hemogram Result Value Ref Range WBC 10.6 (H) 4.0 - 9.5 x10(3)/mcL RBC 3.50 (L) 4.00 - 5.21 x10(6)/mcL Hemoglobin 11.1 (L) 11.7 - 15.5 gm/dL Hematocrit 32.7 (L) 35.7 - 45.8 % MCV 93.4 82.6 - 94.4 fL MCH 31.7 27.1 - 32.0 pg MCHC 33.9 31.7 - 35.0 gm/dL Platelets 420 (H) 145 - 357 x10(3)/mcL RDWSD 45.1 37.0 - 46.0 fL RDWCV 13.3 11.5 - 14.1 % MPV 9.2 7.6 - 12.9 fL nRBC % Auto 0.0 % nRBC Abs Auto 0.000 0.000 - 0.000 x10(3)/mcL Differential, Automated Result Value Ref Range Neutrophils % 65.0 % Neutr Abs (ANC) 6.89 (H) 1.70 - 6.10 x10(3)/mcL Lymphocytes % 22.6 % Lymphocytes Abs 2.4 0.9 - 3.2 x10(3)/mcL Monocytes % 7.1 % Monocyte Abs 0.8 0.3 - 0.9 x10(3)/mcL Eosinophils % 3.6 % Eosinophils Abs 0.4 0.0 - 0.4 x10(3)/mcL Basophils % 0.5 % Basophils Abs 0.0 0.0 - 0.1 x10(3)/mcL Immature Gran % 1.20 % Lisa Gran Abs 0.13 (H) 0.00 - 0.04 x10(3)/mcL Psychiatry Labs: Preg: No results found for: HCGQUAL, HCGQUANT Heme: Lab Results Component Value Date WBC 10.6 (H) 02/28/2017 HGB 11.1 (L) 02/28/2017 HCT 32.7 (L) 02/28/2017 PLATELET 420 (H) 02/28/2017 MCV 93.4 02/28/2017 NEUTROABS 6.89 (H) 02/28/2017 Lab Results Component Value Date HA1C 5.8 (H) 02/28/2017 Chem: Lab Results Component Value Date NA 139 02/28/2017 K 3.9 02/28/2017 CL 104 02/28/2017 CO2 20 (L) 02/28/2017 BUN 7 (L) 02/28/2017 GLUCOSE 158 02/28/2017 Lab Results Component Value Date CALCIUM 9.2 02/28/2017 LFTs: Lab Results Component Value Date ALT 35 (H) 02/22/2017 AST 31 (H) 02/22/2017 ALKPHOS 89 02/22/2017 BILITOT Not Perf 02/22/2017 Coags: No results found for: PTT, PT, INR Thyroid: Lab Results Component Value Date TSH 2.33 02/22/2017 Lipids and HgbA1C: No results found for: CHLPL, HDL, CHOLHDL, LDLCHOL, LDLDIRECT, TRIG Lab Results Component Value Date HA1C 5.8 (H) 02/28/2017 Vit Lvls: No results found for: [id number], SFOLATE UA: No results found for: GLUCOSEU, KETONESUA, PROTEINUADIP, BLOODUADIP, LEUKOESTERUA, NITRATEUA, WBCUA (May not represent most recent UA results. See eD-H labs for more details.) Tox: No results found for: ETHANOL, ACTMNPHEN, SALICYLATE, LEAD No results found for: UDAUSCREEN Rx Lvls: No results found for: LITHIUM, CARBAMAZEPIN, VALPROATE, LAMOTRIGINE, CLOZAPINE Assessment: Shaneka Samano is a 36 y.o. female admitted on 02/21/2017 for suicide attempt by jumping out of a moving car. Patient has had history of unpredictable suicide attempts (Ex: overdose, asphyxiation), but she maintains that she does not currently have and SI/HI, will continue to hospitalize for inpatient for safety and stabilization. Pt meets IEA criteria for threat to self and should not be discharged until ready. Patient denies SI/HI but has high baseline for impulsivity. Will continue abilify and coordinate dispo option for placement. Pt appears to have cellulitis on left foot, vitals stable, no fevers. medicine consulted and is following patient, appreciate recs, have restarted lovenox in addition to initiating bactrim. Due to breakout pain of foot & new infection, will increase freq of oxycodone back to Q6H. Current Working Primary Diagnosis: Schizophrenia Clinical Global Impression Severity of illness: Considering your total clinical experience with this particular population, howmentally ill is the patient at this time? 4 = Moderately ill Global improvement: Rate total improvement compared to condition at admission, how much has she changed? Minimally Improved Plan: ?? # Schizophrenia ?? Therapeutic milieu ?? Inpt groups ?? Continue abilify 30 mg daily ?? abilify maintena 400 mg IM given on 02/24 ?? # Foot pain/leg swelling s/p trauma #cellulitis of left foot -Per medicine: -Initiate DS BACTRIM PO BID, first dose 02/28/17, will continue as medicine follows patient, bordersoutlined -Vitals Q4H -Restart lovenox 40mg subQ nightly -Oxycodone q6h PRN for pain, no constipation -Ibuprofen 600mg Q6H PRN -OT To re-evaluate #Stitches -Outpatient surgery appt cancelled - Will page on-call surgery team to remove stitches in AM. # Disposition: -After stabilization, patient expected to return home next week ?? Additional Information: Reasons for continued hospitalization: Warrants ongoing inpatient admission for safety, stabilization, and any other therapeutic intervention that could conceivably improve the patient's condition (including medication management, group psychotherapy, establishing adequate outpatient care). Outpatient Care: Provider Name Date Contacted By Treatment Team Psychiatric prescriber Kandace Hassan 02/22 Therapist None PCP None Patient Instruction/Education Provided: Patient provided verbal instructions during rounds regardingthe treatment plan. I have reviewed and agree with the multidisciplinary treatment plan. I certify that the patient requires [x] inpatient care for psychiatric treatment that could reasonably be expected to improve the patient's condition and/or diagnostic study. Signed By: Albert Rosenthal MD 03/01/2017 Associated attestation - Deshaun Noble MD - 03/01/2017 1:12 PM EDT PSYCHIATRY TEACHING PHYSICIAN INVOLVEMENT Location: Inpatient Psychiatry 2W Attending Physician: Dr. Real MD Resident name: Dr. Rosenthal I saw and evaluated the patient with the above named resident/ See their note for details. I reviewed the patient's history during the visit and I agree with the details as written. My exam confirms the resident's findings. The assessment and plan were formulated in discussion with me and I agree with them as documented. Major issues addressed/discussed: 1. Patient tolerating depot abilify and is now ambulating with less pain - recent exacerbation with cellulitis. Restarted lovenox and increased opioids temporarily with acute cellulitis. Patient is agreeable with this plan. Will coordinate discharge with outpatient team - likely needing additional night or two to ensure that cellulitis is resolving. Primary Diagnosis: Schizophrenia I certify that the patient requires: [x] inpatient care for psychiatric treatment that could reasonably be expected to improve the patient's condition and or diagnostic study. Shanon Calderon RN - 03/01/2017 6:04 AM EDT Cici (legal name Shaneka) was reported to be in her room crying because she was unable to receive Oxycodone at start of shift. She came to [facility] at 2355 with angry and tearful affect and said, I need my Oxycodone. It's every 8 hours now and that's not cutting it. She was reminded she cannot take another dose until 0408, at which time she became mildly agitated. I need my Oxycodone. This verse writer spoke with patient and asked if she has an allergic reaction to Tylenol (patient reportedly has allergy to Percocet) and she said she takes Tylenol at home. DOC paged and Tylenol 650 mg PO x 1 NOW ordered and administered at 0028 with positive effect, reducing pain from 7/10 to 4/10. VSS afebrile. Patient forcefully rang call rondon at 0100 and said, My Oxycodone. Can I have it now? She was reminded she cannot have it until 0408 per MD order. At 0555 Cici rang her call rondon. When this verse writer responded, she said, My Oxycodone... She was asked her pain level to which she initially responded, Six, no wait. It's an 8. This verse writer procured Oxycodone 5 mg PO PRN per MD order and administered it at 0600 with pending effect. She was nodding off and appeared drowsy, intermittently slurring her words. VSS afebrile. Cici tolerated Tylenol 650 mg with no adverse effects noted or reported. Albert Rosenthal MD - 02/28/2017 4:58 PM EDT Wound nurse notified me of new findings. Assessed patient: Wound on left foot is tender, erythematous and warm. Patient is stable and denies body aches, fevers, or chills. Wound does appears infected. Consulted medicine for evaluation. Medicine consult came by, labs put in, increased frequency for vitals, and will wait for final antibiotic selection. Will notify night team. Albert Rosenthal MD PGY-1, Psychiatry Associated attestation - Deshaun Noble MD - 02/28/2017 5:39 PM EDT PSYCHIATRY TEACHING PHYSICIAN INVOLVEMENT Location: Inpatient Psychiatry 2W Attending Physician: Dr. Real MD Resident name: Dr. Rosenthal I saw and evaluated the patient with the above named resident/ See their note for details. I reviewed the patient's history during the visit and I agree with the details as written. My exam confirms the resident's findings. The assessment and plan were formulated in discussion with me and I agree with them as documented. Major issues addressed/discussed: 1. Patient tolerating abilify and is now ambulating with less pain. Will DC lovenox and begin taper of opioids as her pain needs decrease. Patient is agreeable with this plan. Will coordinate dischargewith outpatient team. Primary Diagnosis: Schizophrenia I certify that the patient requires: [x] inpatient care for psychiatric treatment that could reasonably be expected to improve the patient's condition and or diagnostic study. Lissett Blevins RN - 02/28/2017 3:12 PM EDT Spoke with Gissell Sandhu at [facility], letting her know pt is hoping for discharge to the care bed in [facility]. That bed is available but Gissell wants to discuss with her team before committing to the plan.Also Gissell and the RN will call tomorrow around noon to discuss the med plan with here. Albert Rosenthal MD - 02/28/2017 11:16 AM EDT Psychiatry Inpatient - Progress Note 02/28/2017 ID: F THREE EIGHT Unknown is a 36 y.o. female admitted on 02/21/2017 for suicide attempt by jumping from a moving car. Hospital day 7. Current Working Primary Diagnosis: Schizophrenia Pertinent medical issues being addressed: Foot fracture Interval History: (1,1,4) Narrative: -Patient slept 3.5 hours -Appetite OK, eating well, says she feels better, understands what she did last week was impulsive, looking forward to going home and being with family -Able to walk around, the foot is not causing her as much pain, requested to stop narcotic pain medications -Denies depression 0/10 and anxiety 0/10 -Requests to go off unit with possible concrete pipe plant supervisor -Denies auditory or visual hallucinations -Needs to get stitches out, will do at her outpatient surgery visit -Denies medication side effects Review of Systems: (0,1,2) CONST Denies headaches or fevers CV Denies chest pain or palpitations RESP Denies dyspnea or cough GI Denies constipation NEURO No headaches, endorses foot pain, but mangeable PSYCH See above. Physical Exam: (1,6,9) Vitals (24hr Range): Temp: [36.5 ??C (97.7 ??F)] Resp: [18] Heart Rate: [94] BP: (123)/(74) SpO2: [98 %] Patient Vitals for the past 168 hrs: Weight 02/27/17 0748 90.7 kg (200 lb) 02/21/17 1614 91.9 kg (202 lb 8 oz) Musculoskeletal System: Boot on left foot for support, no crutches, able to ambulate freely Mental Status Exam: ?? Appearance: obese woman casually dressed with resolving hematoma on left side of face. ?? Behavior: Cooperative, responds appropriately to questions and maintains fair eye contact ?? Speech: Normal rate, pitch, and prosody, appropriate volume ?? Language: [place], fluent ?? Mood: better ?? Affect: restricted ?? Thought Process: Linear, goal-directed, discusses upcoming appointments with outpatient surgery and discontinuing her pain medications ?? Associations: intact ?? Thought Content: no suicidal or homicidal ideation ?? Perception: no auditory or visual hallucinations ?? Orientation: Alert and oriented to person and place Attention/Concentration: fair/fair ?? Cognition: grossly intact ?? Memory: remote and recent memory intact ?? Fund of Knowledge: appropriate for education ?? Insight: limited ?? Judgment: poor Current Medications: Scheduled: ??? metFORMIN 500 mg Oral BID WC ??? ARIPiprazole 30 mg Oral Daily ??? aspirin 81 mg Oral Daily ??? levothyroxine 25 mcg Oral QAM ??? topiramate 100 mg Oral Daily ??? nicotine 21 mg Transdermal Daily And ??? Patch Verification 1 patch Transdermal BID And ??? nicotine 1 patch Transdermal Daily ??? senna-docusate 2 tablet Oral BID PRN: oxyCODONE, hydrOXYzine, melatonin, traZODone, ibuprofen, calcium carbonate, ondansetron, nicotine polacrilex Labs: Last 24 Hours: No results found for this or any previous visit (from the past 24 hour(s)). Psychiatry Labs: Preg: No results found for: HCGQUAL, HCGQUANT Heme: No results found for: WBC, HGB, HCT, PLATELET, MCV, NEUTROABS No results found for: HA1C, SEDRATE Chem: No results found for: NA, K, CL, CO2, BUN, GLUCOSE, GLUCFASTING No results found for: CALCIUM, MAGNESIUM, PHOS LFTs: Lab Results Component Value Date ALT 35 (H) 02/22/2017 AST 31 (H) 02/22/2017 ALKPHOS 89 02/22/2017 BILITOT Not Perf 02/22/2017 Coags: No results found for: PTT, PT, INR Thyroid: Lab Results Component Value Date TSH 2.33 02/22/2017 Lipids and HgbA1C: No results found for: CHLPL, HDL, CHOLHDL, LDLCHOL, LDLDIRECT, TRIG No results found for: HA1C Vit Lvls: No results found for: [id number], SFOLATE UA: No results found for: GLUCOSEU, KETONESUA, PROTEINUADIP, BLOODUADIP, LEUKOESTERUA, NITRATEUA, WBCUA (May not represent most recent UA results. See eD-H labs for more details.) Tox: No results found for: ETHANOL, ACTMNPHEN, SALICYLATE, LEAD No results found for: UDAUSCREEN Rx Lvls: No results found for: LITHIUM, CARBAMAZEPIN, VALPROATE, LAMOTRIGINE, CLOZAPINE Assessment: F THREE EIGHT Unknown is a 36 y.o. female admitted on 02/21/2017 for suicide attempt by jumping out of a moving car. Patient has had history of unpredictable suicide attempts (Ex: overdose, asphyxiation), but she maintains that she does not currently have and SI/HI, will continue to hospitalize for inpatient for safety and stabilization. Pt meets IEA criteria for threat to self and should not be discharged until ready. Pt is able to ambulate more freely, able to stop lovenox. Will contact OT for re-evaluation. Current Working Primary Diagnosis: Schizophrenia Clinical Global Impression Severity of illness: Considering your total clinical experience with this particular population, howmentally ill is the patient at this time? 4 = Moderately ill Global improvement: Rate total improvement compared to condition at admission, how much has she changed? Minimally Improved Plan: Plan: ?? # Schizophrenia ?? Therapeutic milieu ?? Inpt groups ?? Continue abilify 30 mg daily ?? abilify maintena 400 mg IM given on 02/24 ?? # Foot pain/leg swelling s/p trauma - DC Lovenox; patient ambulating -Decrease frequency of oxycodone for pain; 5mg q8h PRN; per patient request. Denies constipation. -Ibuprofen 600mg Q6H PRN -OT to re-evaluate ?? # Disposition: -After stabilization, patient expected to return home next week ?? Additional Information: Reasons for continued hospitalization: Warrants ongoing inpatient admission for safety, stabilization, and any other therapeutic intervention that could conceivably improve the patient's condition (including medication management, group psychotherapy, establishing adequate outpatient care). Outpatient Care: Provider Name Date Contacted By Treatment Team Psychiatric prescriber Kandace Hassan 02/22 Therapist None PCP None Patient Instruction/Education Provided: Patient provided verbal instructions during rounds regardingthe treatment plan. I have reviewed and agree with the multidisciplinary treatment plan. I certify that the patient requires [x] inpatient care for psychiatric treatment that could reasonably be expected to improve the patient's condition and/or diagnostic study. Signed By: Albert Rosenthal MD 02/28/2017 Associated attestation - Deshaun Noble MD - 02/28/2017 12:48 PM EDT PSYCHIATRY TEACHING PHYSICIAN INVOLVEMENT Location: Inpatient Psychiatry 2W Attending Physician: Dr. Real MD Resident name: Dr. Rosenthal I saw and evaluated the patient with the above named resident/ See their note for details. I reviewed the patient's history during the visit and I agree with the details as written. My exam confirms the resident's findings. The assessment and plan were formulated in discussion with me and I agree with them as documented. Major issues addressed/discussed: 1. Patient tolerating abilify and is now ambulating with less pain. Will DC lovenox and begin taper of opioids as her pain needs decrease. Patient is agreeable with this plan. Will coordinate dischargewith outpatient team. Primary Diagnosis: Schizophrenia I certify that the patient requires: [x] inpatient care for psychiatric treatment that could reasonably be expected to improve the patient's condition and or diagnostic study. Syeda Howell MHT - 02/28/2017 10:35 AM EDT Inpatient Daily Group Note Group: Goals: Reviewed mindfulness, schedule, rules and expectations, patients' progress and goals and practiced mindful breathing. Attendance: Present Behavior: Quiet Therapeutic Work Observed: Moderate Mood: Calm Notes: Patient has goal to find out about discharge, and agrees to go to groups today. Patient witnessed to be quietly smiling to self. RAMY WILL, MS 02/28/2017 Inpatient Daily Group Note Group: Mindfulness based CBT: Reviewed model, practiced identifying thoughts that increase stress and practiced applying tool to decrease stress and improve coping. Attendance: Present Behavior: Quiet Therapeutic Work Observed: Moderate Mood: Calm Notes: Patient listened attentively. RAMY WILL, MS 02/28/2017 Inpatient Daily Group Note Group: Distress Tolerance Facilitated discussion about ways to reduce vulnerability to negative emotions. Prompted pts to identify the ways that they recognized stress and to rate those signs/sx on a scale from low to high. Discussed how awareness of stress is the first step in learning how to tolerate it. Presented information on problem focused and emotion focused coping and provided examples of each. Attendance: Present Behavior: Quiet and Attentive Therapeutic Work Observed: Moderate Mood: Calm Notes: Pt was quiet though attentive, observed to be taking notes throughout. LEAH MORALES 02/28/2017 Courtney Anderson RN - 02/28/2017 12:24 AM EDT Pt requesting pain medication for pain at midnight. Received ibuprofen 600 mg per MAR for pain rated7/10. Advised patient to have snack with medication. Pt requested oxycodone at 0400, oxycodone immediate release 5 mg given per MAR. Cordelia House MD - 02/27/2017 11:48 AM EDT Psychiatry Inpatient - Progress Note 02/27/2017 ID: Candace VERMA EIGHT Unknown is a 36 y.o. female admitted on 02/21/2017 for suicide attempt by jumping from a moving car. Hospital day 6. Current Working Primary Diagnosis: schizophrenia Pertinent medical issues being addressed: foot fracture Interval History: (1,1,4) -slept 6 hours -denies depression or anxiety -denies SI/HI -denies AVH -continues to c/o foot pain 2-310 - but asks that opiates be decreased as she does not want them tobecome a problem for her at all. - reported by staff to be polite, appropriate and attending groups - utilizing boot for walking and states this is going well -denies any issues w/ abilify injection given 02/24/17 -still anxious about plan for discharge next week and what she will need in place such as support inher home the first 24 - 48 hours - plans to talk with her mother about this today. Reassured her that the primary team will work with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 0.00 - 0.04 x10(3)/[facility] LABORATORY Specimen Anatomical Collection Method Collection Time Receive d Time (Source) Location / / Volume Laterality Blood specimen 03/02/2017 5:51 AM 017 5:55 (specimen) EDT AM EDT Resulting Agency Comment Spec In Lab Deshaun Noble MD HEMATOLOGY ORDERABLES Performing Organization Address City/State/[place] [address] (ABNORMAL) Hemogram (03/02/2017 5:51 AM EDT) Analysis Performed At Patho logist Time Signature WBC 8.6 4.0 - 9.5 [facility] x10(3)/[facility] LABORATORY RBC 3.72 (L) 4.00 - [facility] 5.21 [facility] x10(6)/[facility] LABORATORY Hemoglobin 11.7 11.7 - [facility] 15.5 gm/dL [facility] Hematocrit 34.3 (L) 35.7 - [facility] 45.8 % [facility] MCV 92.2 82.6 - [facility] 94.4 [facility] LABORATORY MCH 31.5 27.1 - [facility] ANIKA 32.0 pg [facility] MCHC 34.1 31.7 - [facility] ANIKA 35.0 gm/dL [facility] Platelets 412 (H) 145 - 357 [facility] x10(3)/[facility] LABORATORY RDWSD 45.1 37.0 - [facility] [employer] 46.0 [facility] LABORATORY RDWCV 13.3 11.5 - [facility] ANIKA 14.1 % [facility] MPV 9.0 7.6 - 12.9 [facility] LABORATORY nRBC % Auto 0.0 % [facility] nRBC Abs Auto 0.000 0.000 - [place] [employer] 0.000 [facility] x10(3)/[facility] LABORATORY Specimen Anatomical Collection Method Collection Time Receive d Time (Source) Location / / Volume Laterality Blood specimen 03/02/2017 5:51 AM 017 5:55 (specimen) EDT AM EDT Resulting Agency Comment Spec In Lab Deshaun Noble MD HEMATOLOGY ORDERABLES Performing Organization Address City/State/[place] [address] (ABNORMAL) Differential, Automated (02/28/2017 9:23 PM EDT) [facility] Method Time Signature Neutrophils % 65.0 % [facility] Neutr Abs (ANC) 6.89 (H) 1.70 - [facility] 6.10 [facility] x10(3)/[facility] LABORATORY Lymphocytes % 22.6 % [facility] Lymphocytes Abs 2.4 0.9 - 3.2 [facility] x10(3)/[facility] LABORATORY Monocytes % 7.1 % [facility] Monocyte Abs 0.8 0.3 - 0.9 [facility] x10(3)/[facility] LABORATORY Eosinophils % 3.6 % [facility] Eosinophils Abs 0.4 0.0 - 0.4 [facility] x10(3)/[facility] LABORATORY Basophils % 0.5 % [facility] Basophils Abs 0.0 0.0 - 0.1 [facility] x10(3)/[facility] LABORATORY Immature Gran % 1.20 % [facility] Comment: Immature granulocytes(IG's)percentage an d absolute count will include metamyelocytes, myelocytes, and promyelo cytes. Blood smears from CBCs yielding IG's will be scanned manually for concor dance. If this scan disagrees with the automated IG or if promyelocytes are not ed, a manual differential will be performed. Lisa Gran Abs 0.13 (H) 0.00 - 0.04 x10(3)/[facility] LABORATORY Specimen Anatomical Collection Method Collection Time Receive d Time (Source) Location / / Volume Laterality Blood specimen 02/28/2017 9:23 PM 017 9:32 (specimen) EDT PM EDT Resulting Agency Comment Spec In Lab Deshaun Noble MD HEMATOLOGY ORDERABLES Performing Organization Address City/State/[place] [address] (ABNORMAL) Hemogram (02/28/2017 9:23 PM EDT) Analysis Performed At Patho logist Time Signature WBC 10.6 (H) 4.0 - 9.5 [facility] x10(3[facility] LABORATORY RBC 3.50 (L) 4.00 - [place] ANIK[facility] 5.21 [facility] x10(6)/[facility] LABORATORY Hemoglobin 11.1 (L) 11.7 - [facility] 15.5 gm/dL [facility] Hematocrit 32.7 (L) 35.7 - [facility] 45.8 % [facility] MCV 93.4 82.6 - [facility] 94.4 [facility] LABORATORY MCH 31.7 27.1 - [facility] ANIAK 32.0 pg [facility] MCHC 33.9 31.7 - [facility] ANIKA 35.0 gm/dL [facility] Platelets 420 (H) 145 - 357 [facility] x10(3)/[facility] LABORATORY RDWSD 45.1 37.0 - [facility] ANIKA 46.0 [facility] LABORATORY RDWCV 13.3 11.5 - [facility] ANIKA 14.1 % [facility] MPV 9.2 7.6 - 12.9 [facility] nRBC % Auto 0.0 % [facility] nRBC Abs Auto 0.000 0.000 - [facility] ANIKA 0.000 [facility] x10(3)/[facility] LABORATORY Specimen Anatomical Collection Method Collection Time Receive d Time (Source) Location / / Volume Laterality Blood specimen 02/28/2017 9:23 PM 017 9:32 (specimen) EDT PM EDT Resulting Agency Comment Spec In Lab Deshaun Noble MD HEMATOLOGY ORDERABLES Performing Organization Address City/State/[place] [address] (ABNORMAL) Hemoglobin A1c (02/28/2017 9:23 PM EDT) Analysis Performed At Patho logist Time Signature Hemoglobin A1C 5.8 (H) 4.3 - 5.6 [facility] LABORATORY Comment: Reference Range: 4.3 - 5.6% 5.7 - 6.4% - Increased Risk of Developin g Diabetes Mellitus >=6.5% - Consistent with diagnosis of Di abetes Mellitus In the absence of hyperglycemia (i.e. pl asma glucose > 200 mg/dL) or classic symptoms of hyperglycemia a repeat measu rement of HbA1c should be performed on a separate sample to confirm the diagnos is. Diagnosis and Classification of Diabetes Mellitus, Diabetes Care 2013; 36: Suppl. 1, S67-74 Est Avg Gluc 120 mg/dL [facility] LABORATORY Comment: eAG equivalents for HbA1c percentages: HbA1c(%) ?eAG(mg/dL) 6.0 ?126 6.5 ?140 7.0 ?154 7.5 ?169 8.0 ?183 8.5 ?197 9.0 ?212 9.5 ?226 10.0 ? 240 Limitations: The eAG calculation has not been validated on women, individuals below 18 years old and above 70 years old, and individuals with hemoglobinopathies. Additional resources are available on e ADA website. Jl HOLCOMB, Cem J, Tan R, et al. ??Tr anslating the A1C assay into estimated average glucose values. ??Diabetes Care 2008:31(8):2287-1536. Specimen Anatomical Collection Method Collection Time Receive d Time (Source) Location / / Volume Laterality Blood specimen 02/28/2017 9:23 PM 017 9:32 (specimen) EDT PM EDT Resulting Agency Comment Spec In Lab Deshaun Noble MD CHEMISTRY ORDERABLES Performing Organization Address City/State/[place] [address] (ABNORMAL) Basic Metabolic Panel (non-fasting) (02/28/2017 9:23 PM EDT) athologist Signature Glucose Lvl 158 65 - [address] [facility] mg/dL [facility] Comment: Diabetes: >=200 mg/dL plus symp toms BUN 7 (L) 8 - 18 mg/dL [facility] LABORATORY Creatinine 0.70 0.70 - 1.20 mg/dL [facility] LAB[facility] Comment: Please note that the pediatric reference intervals supplied above were not validated at [facility]. Results from pediatri c patients should be interpreted in conjunction to the patient's age, height and muscle mass. Sodium 139 135 - 145 mmol/L [facility] Potassium 3.9 3.5 - 5.0 mmol/L [facility] Comment: Please note: ??Patients with WBC >100,00 0 may have falsely elevated Potassium levels. ??For accurate Potassium quantif ication in these patients send serum separator tube (gold top) for subsequent determinations. ??Contact the Clinical Chemistry Laboratory if there are any qu estions. Chloride 104 98 - 107 mmol/L [facility] CO2 20 (L) 22 - 31 mmol/L [facility] Anion Gap 15 5 - 15 mmol/L [facility] LABORATORY Calcium 9.2 8.5 - 10.5 mg/dL [facility]ORY Estimated GFR >60 >=60 [facility]ORY Comment: This estimated GFR [...] the following links into your internet browser. [email or web address] Specimen Anatomical Collection Method Collection Time Receive d Time (Source) Location / / Volume Laterality Blood specimen 02/28/2017 9:23 PM 017 9:32 (specimen) EDT PM EDT Resulting Agency Comment Spec In Lab Deshaun Noble MD CHEMISTRY ORDERABLES Performing Organization Address City/[facility]/ZIP Code Phon e Number [address] POCT Glucose (02/25/2017 7:36 AM EDT) athologist Signature POC Glucose 127 65 - 199 [facility] mg/dL [facility] Comment: Supplemental ranges: <140 mg/dL before meals <180 mg/dL all other times of the day Specimen Anatomical Collection Method Collection Time Receive d Time (Source) Location / / Volume Laterality Blood specimen 02/25/2017 7:36 AM 017 7:36 (specimen) EDT AM EDT Teagan Vyas MD POINT OF CARE TEST ORDERABLE S Performing Organization Address City/[facility]/ZIP Code Phon e Number [address] POCT Glucose (02/24/2017 7:32 AM EDT) athologist Signature POC Glucose 148 65 - 199 [place] ANIKA mg/dL [facility] Comment: Supplemental ranges: <140 mg/dL before meals <180 mg/dL all other times of the day Specimen Anatomical Collection Method Collection Time Receive d Time (Source) Location / / Volume Laterality Blood specimen 02/24/2017 7:32 AM 017 7:32 (specimen) EDT AM EDT Teagan Vyas MD POINT OF CARE TEST ORDERABLE S Performing Organization Address City/[facility]/[place] [address] (ABNORMAL) Hepatic Function Panel (02/22/2017 11:40 AM EDT) Analysis Performed At Patho logist Time Signature Total Protein 7.3 6.1 - 8.0 [facility] gm/dL [facility] Albumin 3.9 3.2 - 5.2 [facility] gm/dL [facility] AST 31 (H) 0 - 30 [facility] unit/L [facility] ALT 35 (H) 0 - 30 [facility] unit/L [facility] Alk Phos 89 40 - 104 [facility] unit/L [facility] Total Not Perf 0.2 - 1.3 [facility] Bilirubin mg/dL [facility] Comment: Analyte stability exceeded; erwin t not performed. Bili, Direct Not Perf 0.0 - 0.3 mg/dL [facility] Comment: Analyte stability exceeded; erwin t not performed. Specimen Anatomical Collection Method Collection Time Receive d Time (Source) Location / / Volume Laterality Blood specimen Venous Draw / 02/22/2017 11:40 02/23/20 17 (specimen) Unknown AM EDT 12:10 PM EDT Resulting Agency Comment Spec In Lab Teagan Vyas MD CHEMISTRY ORDERABLES Performing Organization Address City/[facility]/ZIP Code Phon e Number [address] Scan, Peripheral Blood (02/22/2017 11:40 AM EDT) [facility] Tiny [employer] Method Time Signature Plat Estimate Increased [facility] RBC Morphology Normal [facility] Giant Less than 1 /HPF [facility] Platelets [facility] Specimen Anatomical Collection Method Collection Time Receive d Time (Source) Location / / Volume Laterality Blood specimen 02/22/2017 11:40 7 (specimen) AM EDT 11:48 AM EDT Resulting Agency Comment Spec In Lab Teagan Vyas MD HEMATOLOGY ORDERABLES Performing Organization Address City/State/ZIP Code Phon e Number [address] (ABNORMAL) Differential, Automated (02/22/2017 11:40 AM EDT) [facility] Signature Neutrophils % 75.4 % [facility]OR[facility]ORY Neutr Abs (ANC) 6.80 (H) 1.70 - [facility] 6.10 [facility] x10(3)/[facility] LABORATORY Lymphocytes % 16.9 % [facility]OR[facility]ORY Lymphocytes Abs 1.5 0.9 - 3.2 [facility] x10(3)/[facility] LABORATORY Monocytes % 4.5 % [facility]OR[facility]ORY Monocyte Abs 0.4 0.3 - 0.9 [facility] x10(3)/[facility] LABORATORY Eosinophils % 2.3 % [facility] Eosinophils Abs 0.2 0.0 - 0.4 [facility] x10(3)/[facility] LABORATORY Basophils % 0.3 % [facility] Basophils Abs 0.0 0.0 - 0.1 [facility] x10(3)/[facility] LABORATORY Immature Gran % 0.60 % [facility] Comment: Immature granulocytes(IG's)percentage an d absolute count will include metamyelocytes, myelocytes, and promyelo cytes. Blood smears from CBCs yielding IG's will be scanned manually for concor dance. If this scan disagrees with the automated IG or if promyelocytes are not ed, a manual differential will be performed. Lisa Gran Abs 0.05 (H) 0.00 - 0.04 x10(3)/[facility] LABORATORY Specimen Anatomical Collection Method Collection Time Receive d Time (Source) Location / / Volume Laterality Blood specimen 02/22/2017 11:40 7 (specimen) AM EDT 11:48 AM EDT Resulting Agency Comment Spec In Lab Teagan Vyas MD HEMATOLOGY ORDERABLES Performing Organization Address City/State/[place] [address] (ABNORMAL) Hemogram (02/22/2017 11:40 AM EDT) Analysis Performed At Patho logist Time Signature WBC 9.0 4.0 - 9.5 [facility] x10(3)/[facility] LABORATORY RBC 3.92 (L) 4.00 - [facility] 5.21 [facility] x10(6)/[facility] LABORATORY Hemoglobin 12.3 11.7 - [facility] 15.5 gm/dL [facility] Hematocrit 35.5 (L) 35.7 - [place] ANIKA 45.8 % [facility] MCV 90.6 82.6 - [facility] 94.4 [facility] LABORATORY MCH 31.4 27.1 - [facility] 32.0 pg [facility] MCHC 34.6 31.7 - [place] ANIKA 35.0 gm/dL [facility] Platelets 385 (H) 145 - 357 [facility] x10(3)/[facility] LABORATORY RDWSD 43.3 37.0 - [facility] 46.0 [facility] LABORATORY RDWCV 13.1 11.5 - [facility] 14.1 % [facility] MPV 9.6 7.6 - 12.9 [facility] LABORATORY nRBC % Auto 0.0 % [facility]ORY nRBC Abs Auto 0.000 0.000 - [facility] x10(3)/[facility] LABORATORY Specimen Anatomical Collection Method Collection Time Receive d Time (Source) Location / / Volume Laterality Blood specimen 02/22/2017 11:40 7 (specimen) AM EDT 11:48 AM EDT Resulting Agency Comment Spec In Lab Teagan Vyas MD HEMATOLOGY ORDERABLES Performing Organization Address City/State/[place] [address] (ABNORMAL) Basic Metabolic Panel (non-fasting) (02/22/2017 11:40 AM EDT) athologist Signature Glucose Lvl 190 65 - [address] [facility] mg/dL [facility] Comment: Diabetes: >=200 mg/dL plus symp toms BUN 6 (L) 8 - 18 mg/dL [facility] LABORATORY Creatinine 0.74 0.70 - 1.20 mg/dL [facility] LABORATORY Comment: Please note that the pediatric reference intervals supplied above were not validated [place] [facility] Results from pediatri c patients should be interpreted in conjunction to the patient's age, height and muscle mass. Sodium 141 135 - 145 mmol/L [facility] Potassium 3.8 3.5 - 5.0 mmol/L [facility] Comment: Please note: ??Patients with WBC >100,00 0 may have falsely elevated Potassium levels. ??For accurate Potassium quantif ication in these patients send serum separator tube (gold top) for subsequent determinations. ??Contact the Clinical Chemistry Laboratory if there are any qu estions. Chloride 103 98 - 107 mmol/L [facility] CO2 20 (L) 22 - 31 mmol/L [facility] Anion Gap 18 (H) 5 - 15 mmol/L [facility]ORATORY Calcium 9.3 8.5 - 10.5 mg/dL [facility]OR[facility]ORY Estimated GFR >60 >=60 [facility]ORY Comment: This estimated GFR [...] the following links into your internet browser. [email or web address] Specimen Anatomical Collection Method Collection Time Receive d Time (Source) Location / / Volume Laterality Blood specimen 02/22/2017 11:40 7 (specimen) AM EDT 11:48 AM EDT Resulting Agency Comment Spec In Lab Teagan Vyas MD CHEMISTRY ORDERABLES Performing Organization Address City/State/[place] [address] TSH (02/22/2017 11:40 AM EDT) P athologist Signature TSH 2.33 0.27 - 4.20 [facility] mlU/ML [facility] LABORATORY Specimen Anatomical Collection Method Collection Time Receive d Time (Source) Location / / Volume Laterality Blood specimen 02/22/2017 11:40 7 (specimen) AM EDT 11:48 AM EDT Resulting Agency Comment Spec In Lab Teagan Vyas MD CHEMISTRY ORDERABLES Performing Organization Address City/State/ZIP Code Phon e Number [place] [id number]OS[address] LAB[address] EKG 12 Lead (02/22/2017 8:41 AM EDT) [facility] gist Method Time Signature Ventricular rate 94 BPM MUSE SYSTEM Atrial Rate 94 BPM MUSE SYSTEM P-R Interval 150 ms MUSE SYSTEM QRS Duration 80 ms MUSE SYSTEM Q-T Interval 374 ms MUSE SYSTEM QTC Calculated 467 ms MUSE SYSTEM (Bezet) Calculated P Quentin 51 degrees MUSE SYSTEM Calculated R Quentin 46 degrees MUSE SYSTEM Calculated T Quentin 33 degrees MUSE SYSTEM INTERPRETATION Sinus rhythm with marked sinus arrhythmia MUSE SYSTEM Otherwise normal ECG No previous ECGs available Confirmed by MD Jory, Foreign ([id number]) on 02/22/2017 3:54:13 PM Specimen Anatomical Collection Method Collection Time Receive d Time (Source) Location / / Volume Laterality 02/22/2017 8:41 AM 7 3:54 EDT PM EDT Teagan Vyas MD ECG ORDERABLES Performing Organization Address City/State/ZIP Code Phon e Number MUSE SYSTEM documented in this encounter Visit Diagnoses Diagnosis Fall, initial encounter Paranoid schizophrenia Paranoid schizophrenia, unspecified cond ition documented in this encounter Admitting Diagnoses Diagnosis Schizophrenia Unspecified schizophrenia, unspecified c ondition documented in this encounter Administered Medications Inactive Administered Medications - up to 3 most recent administrations Medication Order MAR Action Action Date Dose Rate Site acetaminophen (TYLENOL) tablet Given 03/01/2017 12:28 AM EDT 650 mg 650 mg 650 mg, Oral, ONCE, 1 dose, On Tue03/01/17 at 0030, Maximum dose of acetaminophen is 4000 mg from all sources in 24 hours. Patient notes she can take tylenol at home despite her percocet allergy, Routine ARIPiprazole (ABILIFY) tablet 30 mg Given 03/03/2017 8:32 AM EDT 30 mg 30 mg, Oral, DAILY, First dose on Tue02/22/17 at 0900, Until Discontinued, Routine Given 03/02/2017 8:13 AM EDT 30 mg Given 03/01/2017 8:25 AM EDT 30 mg ARIPiprazole sers 400 mg Given 02/24/2017 2:16 PM EDT 400 mg Left Gluteal 400 mg, Intramuscular, ONCE, On Tue02/24/17 at 1600, 1 dose aspirin chewable tablet 81 mg Given 03/03/2017 8:32 AM EDT 81 mg 81 mg, Oral, DAILY, First dose on Tue02/22/17 at 0900, Until Discontinued, Routine Given 03/02/2017 8:12 AM EDT 81 mg Given 03/01/2017 8:32 AM EDT 81 mg enoxaparin (LOVENOX) injection Given 02/27/2017 9:20 PM EDT 40 m g Abdominal Tissue 40 mg 40 mg, Subcutaneous, NIGHTLY, First dose on Tue02/22/17 at 2100, Until Discontinued, Routine Given 02/26/2017 8:55 PM EDT 40 mg Given 02/25/2017 9:05 PM EDT 40 mg enoxaparin (LOVENOX) injection 40 mg Given 03/02/2017 9:07 PM EDT 40 mg 40 mg, Subcutaneous, NIGHTLY, First dose on Tue02/28/17 at 2100, Until Discontinued, Routine Given 03/01/2017 9:49 PM EDT 40 mg Given 02/28/2017 10:02 PM EDT 40 mg ibuprofen (ADVIL;MOTRIN) tablet 600 mg Given 03/03/2017 1:39 PM EDT 600 mg 600 mg, Oral, EVERY 6 HOURS PRN, Starting on Tue02/21/17 at 1626, Until Tue03/03/17 at 1550, Pain, Fever, +headache, Administer orally with milk or food to minimize GI irritation. Maximum dose of 3200 mg from all sources in 24 hours, Routine Given 03/03/2017 7:56 AM EDT 600 mg Given 03/02/2017 11:36 PM EDT 600 mg levothyroxine (SYNTHROID) tablet 25 mcg Given 03/03/2017 6:30 AM EDT 25 mcg 25 mcg, Oral, EVERY MORNING, First dose on Tue02/22/17 at 0600, Until Discontinued, Routine Given 03/02/2017 6:36 AM EDT 25 mcg Given 03/01/2017 6:00 AM EDT 25 mcg metFORMIN (GLUCOPHAGE) tablet 500 mg Given 03/03/2017 8:33 AM EDT 500 mg 500 mg, Oral, 2 TIMES DAILY WITH MEALS, First dose on Tue02/23/17 at 1745, Until Discontinued, Routine Given 03/02/2017 6:32 PM EDT 500 mg Given 03/02/2017 8:13 AM EDT 500 mg nicotine (NICODERM CQ) 21 Patch Applied 03/02/2017 8:11 AM 21 mg 09- Arm Upper mg/24 hr patch 21 mg EDT (Left) 21 mg, Transdermal, DAILY, First dose on Tue02/22/17 at 0900, Until Discontinued, Routine Patch Applied 03/01/2017 8:32 AM EDT 21 mg 10- Arm Upper (Right) Patch Applied 02/28/2017 8:18 AM EDT 21 mg 10- Arm Upper (Right) nicotine (NICODERM CQ) 21 mg/24 hr patch Patch Removal Transdermal, DAILY, First dose on Tue at 0900, Until Discontinued, Remove nicotine 21 mg/24 hr patch nicotine polacrilex (NICORETTE) gum 2 mg 2 mg, Buccal, EVERY 2 HOURS PRN, Startin g on Tue02/21/17 at 2053, Until Karla 03/03/17 at 1550, Smoking cessation, Chew gum slo wly. Do not swallow. Maximum of 48 mg/day., Routine oxyCODONE (ROXICODONE) immediate release tablet Given 02/21/2017 8:23 PM EDT 5 mg 5 mg 5 mg, Oral, EVERY 12 HOURS PRN, Starting on Tue02/21/17 at 1626, Until Tue02/21/17 at 2052, Pain, moderate to severe pain (pain 6/10 or higher). Give ibuprofen for mild pain (below 6/10), May give an additional 5 mg in 30 minutes once if pain not relieved., Routine oxyCODONE (ROXICODONE) immediate release tablet Given 02/27/2017 4:46 AM EDT 5 mg 5 mg 5 mg, Oral, EVERY 4 HOURS PRN, Starting on Tue02/21/17 at 2100, Until Tue02/27/17 at 0936, Pain, moderate to severe pain (pain 6/10 or higher). Give ibuprofen for mild pain (below 6/10), May give an additional 5 mg in 30 minutes once if pain not relieved., Routine Given 02/26/2017 10:02 PM EDT 5 mg Given 02/26/2017 5:30 PM EDT 5 mg oxyCODONE (ROXICODONE) immediate release tablet Given 02/28/2017 4:09 AM EDT 5 mg 5 mg 5 mg, Oral, EVERY 6 HOURS PRN, Starting on Tue02/27/17 at 0945, Until Tue02/28/17 at 1010, Pain, moderate to severe pain (pain 6/10 or higher). Give ibuprofen for mild pain (below 6/10), May give an additional 5 mg in 30 minutes once if pain not relieved., Routine Given 02/27/2017 7:45 PM EDT 5 mg Given 02/27/2017 10:44 AM EDT 5 mg oxyCODONE (ROXICODONE) immediate release tablet Given 03/01/2017 6:00 AM EDT 5 mg 5 mg 5 mg, Oral, EVERY 8 HOURS PRN, Starting on Tue02/28/17 at 1015, Until Tue03/01/17 at 1057, Pain, moderate to severe pain (pain 6/10 or higher). Give ibuprofen for mild pain (below 6/10), January giv, Routine Given 02/28/2017 8:08 PM EDT 5 mg Given 02/28/2017 12:07 PM EDT 5 mg oxyCODONE (ROXICODONE) immediate release Given 03/02/2017 10:38 AM EDT 5 mg tablet 5 mg 5 mg, Oral, EVERY 6 HOURS PRN, Starting on Tue03/01/17 at 1100, Until Tue03/02/17 at 1157, Pain, moderate to severe pain (pain 6/10 or higher). Give ibuprofen for mild pain (below 6/10), January giv, Routine Given 03/02/2017 3:19 AM EDT 5 mg Given 03/01/2017 6:51 PM EDT 5 mg oxyCODONE (ROXICODONE) immediate release tablet Given 03/03/2017 1:46 AM EDT 5 mg 5 mg 5 mg, Oral, EVERY 8 HOURS PRN, Starting on Tue03/02/17 at 1200, Until Tue03/03/17 at 1550, Pain, moderate to severe pain (pain 6/10 or higher). Give ibuprofen for mild pain (below 6/10), January giv, Routine Given 03/02/2017 5:41 PM EDT 5 mg Patch Verification Transdermal, 2 TIMES DAILY, First dose o n Tue02/21/17 at 2100, Until Discontinued, Verify nicotine 21 mg/24 hr patch senna-docusate (PERICOLACE) 8.6-50 mg per Given 2016 9:07 PM EDT 2 tablets tablet 2 tablet 2 tablet, Oral, 2 TIMES DAILY, First dose on Tue02/21/17 at 2100, Until Discontinued, Routine Given 03/02/2017 8:12 AM EDT 2 tablets Given 02/25/2017 9:05 PM EDT 2 tablets sulfamethoxazole-trimethoprim (BACTRIM DS) Given 03/03 8:33 AM EDT 1 tablet 800-160 mg per tablet 1 tablet 1 tablet, Oral, EVERY 12 HOURS SCHEDULED (2 times per day), First dose on Tue02/28/17 at 1815, Until Discontinued, STAT, Indication for (Active or Suspected): Skin/Skin Structure Given 03/02/2017 9:07 PM EDT 1 tablet Given 03/02/2017 8:12 AM EDT 1 tablet topiramate (TOPAMAX) tablet 100 mg Given 03/03/2017 8:33 AM EDT 100 mg 100 mg, Oral, DAILY, First dose on Tue02/22/17 at 0900, Until Discontinued, Routine Given 03/02/2017 8:12 AM EDT 100 mg Given 03/01/2017 8:24 AM EDT 100 mg traZODone (DESYREL) tablet 50 mg Given 02/21/2017 11:05 PM EDT 50 mg 50 mg, Oral, NIGHTLY PRN, Starting on Tue02/21/17 at 1626, Until Tue03/03/17 at 1550, Sleep, Routine documented in this encounter Active and Recently Administered Medications Times are shown in EDT. Scheduled Medication Order 03/01/2017 03/02/2017 03/03/2017 acetaminophen (TYLENOL) tablet 650 mg (COMPLETED) 0028 (Given - Provider: Shanon Calderon RN) 650 mg, Oral, ONCE, 1 dose, Tue03/01/17 at 0030, Maximum dose of acetaminophen is 4000 mg from all sources in 24 hours. Patient notes she can take tylenol at home despite her percocet allergy, Routine ARIPiprazole (ABILIFY) tablet 30 mg 0825 (Given - Prov ider: Yamilka Rivera RN) 0813 (Given - Provider: Yamilka Rivera RN) 0832 ( Given - Provider: Josué Hernandez RN) 30 mg, Oral, DAILY, First dose on Tue at 0900, Until Discontinued, Routine aspirin chewable tablet 81 mg 0832 (Given - Provider: Paulina Rivera RN) 0812 (Given - Provider: Yamilka Rivera RN) 0832 (Given - Provider: Josué Hernandez RN) 81 mg, Oral, DAILY, First dose on Tue at 0900, Until Discontinued, Routine enoxaparin (LOVENOX) injection 40 mg 2148 (Given - Provider: Sue Mercado RN) 2106 (Given - Provider: Courtney Obrien RN) 40 mg, Subcutaneous, NIGHTLY, First dose on Tue02/28/17 at 2100, Until Discontinued, Routine levothyroxine (SYNTHROID) tablet 25 mcg 0600 (Given - Provider: Shanon Calderon RN)0824 (Not Given - Provider: Yamilka Rivera RN - Reason: Entered in Error) 0636 (Given - Provider: Joel Lemos RN) 0630 ( Given - Provider: Courtney Anderson RN) 25 mcg, Oral, EVERY MORNING, First dose on Tue02/22/17 at 0600, Until Discontinued, Routine metFORMIN (GLUCOPHAGE) tablet 500 mg 0824 (Given - Pro vider: Yamilka Rivera RN)1736 (Given - Provider: Sue Mercado RN) 0813 (Given - Provider: Yamilka Rivera RN)1832 (Given - Provider: Courtney Obrien RN) 0833 (Given - Provider: Josué Hernandez RN) 500 mg, Oral, 2 TIMES DAILY WITH MEALS, First dose on Tue02/23/17 at 1745, Until Discontinued, Routine nicotine (NICODERM CQ) 21 mg/24 hr patch 21 mg(Linked Group 1) 0832 (Patch Applied - Provider: Yamilka Rivera RN) 0811 (Patch Applied - Provider: Yamilka Rivera RN) 0900 (Not Given - Provider: Josué holly RN - Reason: Patient/family refused) 21 mg, Transdermal, DAILY, First dose on Tue02/22/17 at 0900, Until Discontinued, Routine nicotine (NICODERM CQ) 21 mg/24 hr patch Patch Removal (Linked Group 1) 899 (Patch Removed - Provider: Yamilka Rivera RN) 899 (Patch Removed - Provider: Yamilka Rivera RN) 899 (Patch Removed - Provider: Josué Hernandez RN) Transdermal, DAILY, First dose on Tue at 0900, Until Discontinued, Remove nicotine 21 mg/24 hr patch Patch Verification(Linked Group 1) 899 (Patch (dose a nd location) verified - Provider: Yamilka Rivera RN)2099 (Patch (dose and location) verified - Provider: Sue Mercado RN) 899 (Patch (dose and location) verified - Provider: Yamilka Rivera RN)2099 (Patch (dose and location) verified - Provider: Courtney Obrien RN - Comment: pt prefers to leave on a tnite) 899 (Patch (dose and location) verified - Provider: Josué Hernandez RN) Transdermal, 2 TIMES DAILY, First dose o n Tue02/21/17 at 2100, Until Discontinued, Verify nicotine 21 mg/24 hr patch senna-docusate (PERICOLACE) 8.6-50 mg per tablet 2 tab let 899 (Not Given - Provider: Yamilka Rivera RN - Reason: Patient/family refused)2099 (Not Given - Provider: Sue Mercado RN - Reason: Patient/family refused) 811 (Given - Provider: Yamilka Rivera RN)2106 (Given - Provider: Courtney Obrien RN) 09 (Not Given - Provider: Josué holly RN - Reason: Patient/family refused) 2 tablet, Oral, 2 TIMES DAILY, First dos e on Tue02/21/17 at 2100, Until Discontinued, Routine sulfamethoxazole-trimethoprim (BACTRIM DS) 800-160 mg per tablet 1 tablet 0824 (Given - Provider: Yamilka Rivera RN)2148 (Given - Provider: Sue Mercado RN) 08 (Given - Provider: Yamilka griffith RN)2106 (Given - Provider: Courtney Obrien RN) 08 (Given - Provider: Josué Hernandez RN) 1 tablet, Oral, EVERY 12 HOURS SCHEDULED (2 times per day), First dose on Tue02/28/17 at 1815, Until Discontinued, STAT topiramate (TOPAMAX) tablet 100 mg 0824 (Given - Provi leo: Yamilka Rivera RN) 0812 (Given - Provider: Yamilka Rivera, AKASH) 0833 ( Given - Provider: Josué Hernandez RN) 100 mg, Oral, DAILY, First dose on Tue at 0900, Until Discontinued, Routine PRN Medication Order 03/01/2017 03/02/2017 03/03/2017 calcium carbonate (TUMS) chewable tablet 500 mg 500 mg, Oral, DAILY PRN, Starting Tue at 1626, Until Karla 03/03/17 at 1550, Heartburn, Routine hydrOXYzine (ATARAX) tablet 25 mg 25 mg, Oral, 3 TIMES DAILY PRN, Starting Tue02/21/17 at 1626, Until Karla 03/03/17 at 1550, Anxiety, Routine ibuprofen (ADVIL;MOTRIN) tablet 600 mg 1037 (Given - P rovider: Yamilka Rivera RN)1649 (Given - Provider: Sue Mercado RN)2316 (Given - Provider: Sue Mercado RN) 0529 (Given - Provider: Joel Menjivar ch, RN)1301 (Given - Provider: Yamilka Rivera RN)2336 (Given - Provider: Courtney Obrien RN) 0756 (Given - Provider: Josué Hernandez, AKASH)1339 (Given - Provider: Josué Hernandez RN) 600 mg, Oral, EVERY 6 HOURS PRN, Startin g Tue02/21/17 at 1626, Until Karla 03/03/17 at 1550, Pain, Fever, +headache, Administer orally with milk or food to minimize GI irritation. Maximum dose of 3200 mg from all sources in 24 hours, Routine melatonin tablet 3 mg 3 mg, Oral, NIGHTLY PRN, Starting Tue at 1626, Until Karla 03/03/17 at 1550, Sleep, Routine nicotine polacrilex (NICORETTE) gum 2 mg 2 mg, Buccal, EVERY 2 HOURS PRN, Startin g Tue02/21/17 at 2053, Until Tue03/03/17 at 1550, Smoking cessation, Chew gum slowly. Do not swallow. Maximum of 48 mg/day., Routine ondansetron (ZOFRAN) tablet 4 mg 4 mg, Oral, EVERY 8 HOURS PRN, Starting Tue02/21/17 at 1626, Until Tue03/03/17 at 1550, Nausea, Routine oxyCODONE (ROXICODONE) immediate release tablet 5 mg ( CANCELED) 0600 (Given - Provider: Shanon Calderon, AKASH) 5 mg, Oral, EVERY 8 HOURS PRN, Starting Tue02/28/17 at 1015, Until Tue03/01/17 at 1057, Pain, moderate to severe pain (pain 6/10 or higher). Give ibuprofen for mild pain (below 6/10), May giv, Routine oxyCODONE (ROXICODONE) immediate release tablet 5 mg ( CANCELED) 1220 (Given - Provider: Yamilka Rivera RN)1851 (Given - Provider: Sue Mercado RN) 0319 (Given - Provider: Joel Lemos RN)1038 (Given - Provider: Yamilka Rivera RN) 5 mg, Oral, EVERY 6 HOURS PRN, Starting Tue03/01/17 at 1100, Until Tue03/02/17 at 1157, Pain, moderate to severe pain (pain 6/10 or higher). Give ibuprofen for mild pain (below 6/10), May giv, Routine oxyCODONE (ROXICODONE) immediate release tablet 5 mg 1741 (Given - Provider: Courtney Obrien, AKASH) 0146 (Given - Provider: Courtney Anderson, AKASH) 5 mg, Oral, EVERY 8 HOURS PRN, Starting Tue03/02/17 at 1200, Until Tue03/03/17 at 1550, Pain, moderate to severe pain (pain 6/10 or higher). Give ibuprofen for mild pain (below 6/10), May giv, Routine traZODone (DESYREL) tablet 50 mg 50 mg, Oral, NIGHTLY PRN, Starting Tue at 1626, Until Tue03/03/17 at 1550, Sleep, Routine Linked Groups Order Group 1: nicotine (NICODERM CQ) 21 mg/24 hr patch 21 mgJump to med 21 mg, Transdermal, DAILY, First dose on Tue02/22/17 at 0900, Until Discontinued, Routine And Patch VerificationJump to med Transdermal, 2 TIMES DAILY, First dose o n 02/21/17 at 2100, Until Discontinued
Verify nicotine 21 mg/24 hr patch
And nicotine (NICODERM CQ) 21 mg/24 hr patch Patch RemovalJump to med Transdermal, DAILY, First dose on Tue at 0900, Until Discontinued
Remove nicotine 21 mg/24 hr patch
documented in this encounter Care Teams Bus Company Manager Relationship Specialty Start Date End Date None PCP - General 12/09/16 02/27/18 None documented as of this encounter
--- OUTSIDE RECORDS SUMMARY | 2022-07-23 00:57 | XMS_ITS | Encounter Summary ---
:1980 Author Organization [facility] Address [place] [id number] Care Team Providers Name Role Phone None Primary Care Provider Unavailable Reason for Visit Reason Onset Date Comments Prior Authorization 12/10/2016 12/09/2016 INPT PSYC H Encounter Details Date Type Department Care Team Description 12/10/2016 Telephone Psychiatry and Shaila Case M D Prior Authorization [facility] at [facility] ( 12/09/2016 INPT PSYCH) [facility] [place] [address] [place] [id number] [phone] Social History Tobacco Use Types Packs/Day Years Used Date Smoking Tobacco: Former Smokeless Tobacco: Never Alcohol Use Standard Drinks/Week Comments No 0 (1 standard drink = 0.6 oz pure alcoho l) Sex Assigned at Date Recorded Not on file documented as of this encounter Miscellaneous Notes Telephone Encounter - Aidee Frederick - 12/10/2016 12:38 PM EDT PER FAX BACK FROM [facility]: AUTH #[id number] FOR 12/09/2016 INPT PSYCH EFF. 12/09/2016 - 12/14/2016 WITH REVIEW NEEDED ON 12/14/2016 documented in this encounter Plan of Treatment Not on filedocumented as of this encounter Visit Diagnoses Not on filedocumented in this encounter Care Teams Mathematical Scientist Relationship Specialty Start Date End Date None PCP - General 12/09/16 02/27/18 None documented as of this encounter
--- OUTSIDE RECORDS SUMMARY | 2022-07-23 00:57 | XMS_ITS | Encounter Summary ---
:1980 Author Organization [facility] [place] [address] Care Team Providers Name Role Phone None Primary Care Provider Unavailable Reason for Visit Reason Comments Psychiatric Evaluation Encounter Details Date Type Department Care Team Description 12/09/2016 Emergency Emergency Department Tayla Antonio P aranoid schizophrenia [facility] [place] [address] [place] [address] [phone] Social History Tobacco Use Types Packs/Day Years Used Date Smoking Tobacco: Former Smokeless Tobacco: Never Alcohol Use Standard Drinks/Week Comments No 0 (1 standard drink = 0.6 oz pure alcoho l) Sex Assigned at Date Recorded Not on file documented as of this encounter Last Filed Vital Signs Vital Sign Reading Time Taken Comments Blood Pressure 125/88 12/09/2016 3:48 AM EDT Pulse 106 12/09/2016 3:48 AM EDT Temperature 36.6 ??C (97.9 ??F) 12/09/2016 3:48 AM EDT Respiratory Rate 18 12/09/2016 3:48 AM EDT Oxygen Saturation 98% 12/09/2016 3:48 AM EDT Inhaled Oxygen Concentration - - Weight 45.4 kg (100 lb) 12/09/2016 3:48 AM EDT Height 152.4 cm (5') 12/09/2016 3:48 AM EDT Body Mass Index 19.53 12/09/2016 3:48 AM EDT documented in this encounter Medications at Time of Discharge Medication Sig Dispensed Refills Start Date End Date ARIPiprazole (ABILIFY) 30 Take 1 tablet by 0 03/201703/16/2017 mg Tablet mouth nightly. metFORMIN (GLUCOPHAGE) Take 1,000 mg by 0 03/16/2017 1,000 mg Tablet mouth 2 times daily (with meals). aripiprazole (ABILIFY) 20 0 08/06/2009 12/10/2016 mg tablet topiramate (TOPAMAX) 25 mg 0 9 03/16/2017 tablet divalproex (DEPAKOTE) 250 0 08/06/2009 12/10/2016 mg EC tablet benztropine (COGENTIN) 0.5 0 9 03/16/2017 mg tablet documented as of this encounter ED Notes Jerrica Sepulveda RN - 12/09/2016 5:40 AM EDT Psychiatry at bedside. Jerrica Sepulveda RN - 12/09/2016 5:40 AM EDT Patient to be admitted to inpatient psychiatry. Patricia Islas LNA - 12/09/2016 5:33 AM EDT Pt up to bathroom Patricia Islas LNA - 12/09/2016 5:00 AM EDT Psych at bedside Brittney Joshua LNA - 12/09/2016 4:23 AM EDT I was drawing pts labs she stated : I fell into your trap didn't I?. Pt is expressing wanting tot leave. She's agreed to stay until the lab results come back. Brittney Joshua LNA - 12/09/2016 4:02 AM EDT Resident in with pt. Harjinder Esteban MD - 12/09/2016 3:58 AM EDT Chief Complaint Patient presents with ??? Psychiatric Evaluation HPI Shaneka is a 36 yo F with a PMH of DM2 and a PPH of schizophrenia (currently taking abilify, depakote, topamax and metformin) who presents with psychotic delusions for the last 2 weeks. The delusionsare getting worse . Was on geodon and was having restless legs, so was switched to abilify about 1 week ago. Is not having any visual or auditory hallucinations. Is also noticing that the air in her apartment is thick and heavy and smells like cleaning solution and is difficult to breathe. Follows with psychiatrist Kandace Shah with last visit 1 week ago. Does not have a therapist. Has a sister and parents that live nearby who are not aware that she is having psychotic feelings. Patient states that people are trying to kill her and the government is trying to kill her. Denies SI and HI. Does have a history of suicide attempts by overdose. PPH: has been hospitalized psychiatrically multiple times Desires to come into the hospital for IP admission. Denies ETOH and drug use. No tobacco use. Allergies Allergen Reactions ??? Percocet [Oxycodone-Acetaminophen] Review of Systems Constitutional: Negative for appetite change and fever. HENT: Negative for rhinorrhea and sore throat. Eyes: Negative for visual disturbance. Respiratory: Negative for cough and shortness of breath. Cardiovascular: Negative for chest pain. Gastrointestinal: Negative for abdominal pain, nausea and vomiting. Genitourinary: Negative for dysuria and frequency. Skin: Negative for rash. Neurological: Negative for light-headedness and headaches. Psychiatric/Behavioral: Negative for hallucinations, self-injury and suicidal ideas. The patient is not nervous/anxious. Physical Exam BP 125/88 (Patient Position: Sitting) Pulse 106 Temp 36.6 ??C (97.9 ??F) (Oral) Resp 18 Ht 152.4 cm (5') Wt 45.4 kg (100 lb) SpO2 98% BMI 19.53 kg/m2 Appears stated age. Awake, alert, oriented x 3. PERRL, MMM LCTA Regular tachycardia Decreased eye contact; normal tone and volume of voice. Flat affect. Does not appear to be responding to internal stimuli. Has relatively good insight and judgment. Procedures MDM Patient has a hx of schizophrenia with 2 weeks of psychotic delusions with acute worsening tonight; moreover, she desires IP admission. Unclear if there is a precipitating factor: meds were changed 1 week ago, so this could be contributing. Have low suspicion for toxic ingestion as patient is forthcoming and denies SI--but this should be proved. Will consult psychiatry and have patient admitted. ED Course: Labs: mild leukocytosis; mildly elevated transaminases and alk phos, otherwise normal CMP. Negative ethanol, tylenol, salicylate. Valproate level <3. Spoke with psychiatry who saw patient and agreed to admit her. Meds: olanzapine 10mg for agitation Patient was mildly tachycardic during her stay, but this is likely due to agitation; otherwise VS were stable. Harjinder Esteban MD PGY1 12/09/2016 6:05 AM Harjinder Esteban MD Resident 12/09/16 0704 Associated attestation - Tayla Antonio MD - 12/11/2016 3:29 AM EDT ED ATTENDING ATTESTATION NOTE The patient was seen in conjunction with Dr. Esteban, the resident physician. I have independently performed the allen portions of the history and physical exam. I have reviewed the nursing notes, vital signs, and all diagnostic studies personally including labs, imaging studies and EKGs. I have discussed the details of the case with the resident and agree with the assessment and plan as described in the resident note above unless noted otherwise below. Brief Summary: 36 y/o female with h/o schizophrenia presents with concern of increasing paranoid delusions. She has had worsening sxs over the past week. Psych consulted and labs obtained. Psych will admit for further care and stabilization Final Assessment: paranoid schizophrenia Joshua, Brittney C, [employer]OCI[employer] - 12/09/2016 3:51 AM EDT Pt changed into gown. Belongings locked behind garage. documented in this encounter Miscellaneous Notes ED Triage - Aurelia Loo RN - 12/09/2016 3:56 AM EDT Patient states she is seeking help tonight because the government is trying to kill her. She is alsounable to breath the air in her apartment. Denies SI and HI. Respirations even and unlabored. Skin pwd documented in this encounter Plan of Treatment Not on filedocumented as of this encounter Procedures Procedure Name Priority Date/Time Associated Comments Diagnosis RAPID DRUG SCREEN W/O STAT 12/09/2016 6:00 AM Results for this CONFIRMATION, URINE EDT procedur e are in the results section. HEMOGRAM STAT 12/09/2016 4:48 AM Results f or this EDT procedure are i n the results section. DIFFERENTIAL, STAT 12/09/2016 4:48 AM Results for this AUTOMATED EDT procedure are i n the results section. BLUE TUBE HOLD STAT 12/09/2016 4:48 AM Results for this EDT procedure are i n the results section. CBC (WITH DIFF) STAT 12/09/2016 4:48 AM EDT GREEN TUBE HOLD STAT 12/09/2016 4:15 AM Result s for this EDT procedure are i n the results section. T3, FREE STAT 12/09/2016 4:15 AM Results f or this EDT procedure are i n the results section. TSH STAT 12/09/2016 4:15 AM Results f or this EDT procedure are i n the results section. T4, FREE STAT 12/09/2016 4:15 AM Results f or this EDT procedure are i n the results section. ETHANOL LEVEL STAT 12/09/2016 4:15 AM Results for this EDT procedure are i n the results section. ACETAMINOPHEN LEVEL STAT 12/09/2016 4:15 AM Re sults for this EDT procedure are i n the results section. SALICYLATE STAT 12/09/2016 4:15 AM Results f or this EDT procedure are i n the results section. VALPROIC ACID LEVEL, STAT 12/09/2016 4:15 AM R esults for this TOTAL EDT procedure are i n the results section. COMPREHENSIVE STAT 12/09/2016 4:15 AM Results for this METABOLIC PANEL EDT procedure ar e in (NON-FASTING) the results section. documented in this encounter Results Rapid Drug Screen, Urine (12/09/2016 6:00 AM EDT) [facility] Method Time Signature [place] Marijuana None None [facility] Metabolites Scr Detected Detected [facility] Comment: The marijuana metabolites screen detects the THC Metabolite (06-gwq-9-carboxy-delta 9-THC) at concen trations >50 ng/mL. Qualitative Drug screens are reported as ? None Detected? or ? Presumptive Positive? as the results are not routinely confirmed by highly-specific methods. As with any screen occasional f alse positive results from cross-reacting substances can occur. Not for Medico-Legal Purposes. [place] Phencyclidine Scr None Detected None Detected [facility] Comment: The phencyclidine screen detects [...] [place] Methamphetamines Scr None Detected None Detected [facility] Comment: The methamphetamine screen detects d-met hamphetamine at concentrations >500 ng/mL. Qualitative Drug screens are reported as ? None Detected? or ? Presumptive Positive? as the results are not routinely confirmed by highly-specific methods. As with any screen occasional f alse positive results from cross-reacting substances can occur. Not for Medico-Legal Purposes. [place] Opiates Scr None Detected None Detected [facility] Comment: The opiates screen detects opiates [...] [place] Amphetamines Scr None Detected None Detected [facility] Comment: The amphetamine screen detects d-ampheta mine at concentrations >500 ng/mL. Qualitative Drug screens are reported as ? None Detected? or ? Presumptive Positive? as the results are not routinely confirmed by highly-specific methods. As with any screen occasional f alse positive results from cross-reacting substances can occur. Not for Medico-Legal Purposes. [place] Benzodiazepines Scr None Detected None Detected [facility] Comment: The benzodiazepines screen detects [...] [place] Tricyclics Scr None Detected None Detected [facility] Comment: The tricyclics screen detects [...] [place] Methadone Scr None Detected None Detected [facility] Comment: The methadone screen detects methadone a t concentrations >200 ng/mL. Qualitative Drug screens are reported as ? None Detected? or ? Presumptive Positive? as the results are not routinely confirmed by highly-specific methods. As with any screen occasional f alse positive results from cross-reacting substances can occur. Not for Medico-Legal Purposes. [place] Barbiturates Scr None Detected None Detected [facility] Comment: The barbiturates screen detects [...] [place] Oxycodone Scr None Detected None Detected [facility] Comment: The oxycodone screen detects [...] [place] Propoxyphene Scr None Detected None Detected [facility] Comment: The propoxyphene screen detects propoxyp hene at concentrations >300 ng/mL. Qualitative Drug screens are reported as ? None Detected? or ? Presumptive Positive? as the results are not routinely confirmed by highly-specific methods. As with any screen occasional f alse positive results from cross-reacting substances can occur. Not for Medico-Legal Purposes. [place] Buprenorphine Scr None Detected None Detected [facility] Comment: The buprenorphine screen detects bupreno rphine at concentrations >10 ng/mL. Qualitative Drug screens are reported as ? None Detected? or ? Presumptive Positive? as the results are not routinely confirmed by highly-specific methods. As with any screen occasional f alse positive results from cross-reacting substances can occur. Not for Medico-Legal Purposes. [place] Adulterants Screen None Detected None Detected [facility] Comment: No adulteration or dilution of this urin e sample was detected. All urine samples submitted for urine drugs of abu se analysis are tested for Creatinine and pH and for the presence of oxidants, nitrites, chromate and aldehydes (glutaraldehyde). Specimen Anatomical Collection Method Collection Time Receive d Time (Source) Location / / Volume Laterality Urine specimen 12/09/2016 6:00 AM 017 6:04 (specimen) EDT AM EDT Resulting Agency Comment Spec In Lab Tyala Antonio MD URINE ORDERABLES Performing Organization Address City/State/ZIP Code Phon e Number [address] Blue Tube HOLD (12/09/2016 4:48 AM EDT) P athologist Signature Blue Hold Sample in [facility]. [facility] Specimen Anatomical Collection Method Collection Time Receive d Time (Source) Location / / Volume Laterality Blood specimen Venous Draw / 12/09/2016 4:48 AM 2016 4:55 (specimen) Unknown EDT AM EDT Tayla Antonio MD HEMATOLOGY ORDERABLES Performing Organization Address City/[facility]/ZIP Code Phon e Number [address] (ABNORMAL) Differential, Automated (12/09/2016 4:48 AM EDT) Patholo gist Method Time Signature Neutrophils % 72.3 % [facility] Neutr Abs (ANC) 9.50 (H) 1.70 - [facility] 6.10 [facility] x10(3)/[facility] LABORATORY Lymphocytes % 20.5 % [facility] Lymphocytes Abs 2.7 0.9 - 3.2 [facility] x10(3)/[facility] LABORATORY Monocytes % 5.2 % [facility] Monocyte Abs 0.7 0.3 - 0.9 [facility] x10(3)/[facility] LABORATORY Eosinophils % 1.4 % [facility] Eosinophils Abs 0.2 0.0 - 0.4 [facility] x10(3)/[facility] LABORATORY Basophils % 0.3 % [facility] Basophils Abs 0.0 0.0 - 0.1 [facility] x10(3)/[facility] LABORATORY Immature Gran % 0.30 % [facility] Comment: Immature granulocytes(IG's)percentage an d absolute count will include metamyelocytes, myelocytes, and promyelo cytes. Blood smears from CBCs yielding IG's will be scanned manually for concor dance. If this scan disagrees with the automated IG or if promyelocytes are not ed, a manual differential will be performed. Lisa Gran Abs 0.04 0.00 - 0.04 x10(3)/[facility] MAR Y [facility] Specimen Anatomical Collection Method Collection Time Receive d Time (Source) Location / / Volume Laterality Blood specimen 12/09/2016 4:48 AM 017 4:55 (specimen) EDT AM EDT Resulting Agency Comment Spec In Lab Tayla Antonio MD HEMATOLOGY ORDERABLES Performing Organization Address City/State/ZIP Code Phon e Number [place] [id number] (ABNORMAL) Hemogram (12/09/2016 4:48 AM EDT) Analysis Performed At Patho logist Time Signature WBC 13.1 (H) 4.0 - 9.5 [facility] x10(3)/[facility] LABORATORY RBC 4.53 4.00 - [facility] 5.21 [facility] x10(6)/[facility] Hemoglobin 14.2 11.7 - [facility] 15.5 gm/dL [facility] Hematocrit 40.7 35.7 - [facility] 45.8 % [facility] MCV 89.8 82.6 - [facility] 94.4 [facility] LABORATORY MCH 31.3 27.1 - [place] ANIKA 32.0 pg [facility] MCHC 34.9 31.7 - [facility] 35.0 gm/dL [facility] Platelets 366 (H) 145 - 357 [facility] x10(3)/[facility] LABORATORY RDWSD 43.1 37.0 - [facility] ANIKA 46.0 [facility] RDWCV 13.1 11.5 - [facility] ANIKA 14.1 % [facility] MPV 9.4 7.6 - 12.9 [facility] LABORATORY nRBC % Auto 0.0 % [facility] nRBC Abs Auto 0.000 0.000 - [place]AL[place] 0.000 [facility] x10(3)/[facility] LABORATORY Specimen Anatomical Collection Method Collection Time Receive d Time (Source) Location / / Volume Laterality Blood specimen 12/09/2016 4:48 AM 017 4:55 (specimen) EDT AM EDT Resulting Agency Comment Spec In Lab Tayla Antonio MD HEMATOLOGY ORDERABLES Performing Organization Address City/State/ZIP Code Phon e Number [address] T3, free (12/09/2016 4:15 AM EDT) P athologist Signature T3, Free 3.0 2.0 - 4.4 [facility] ANIKA pg/mL [facility] Specimen Anatomical Collection Method Collection Time Receive d Time (Source) Location / / Volume Laterality Blood specimen Venous Draw / 12/09/2016 4:15 AM 2016 4:31 (specimen) Unknown EDT AM EDT Resulting Agency Comment Spec In Lab Tayla Antonio MD CHEMISTRY ORDERABLES Performing Organization Address City/[facility]/ZIP Code Phon e Number [address] T4, free (12/09/2016 4:15 AM EDT) P athologist Signature Free T4 1.29 0.93 - 1.70 [place] ng/dL [facility] Specimen Anatomical Collection Method Collection Time Receive d Time (Source) Location / / Volume Laterality Blood specimen Venous Draw / 12/09/2016 4:15 AM 2016 4:31 (specimen) Unknown EDT AM EDT Resulting Agency Comment Spec In Lab Tayla Antonio MD CHEMISTRY ORDERABLES Performing Organization Address City/[facility]/ZIP Code Phon e Number [address] TSH (12/09/2016 4:15 AM EDT) P athologist Signature TSH 2.05 0.27 - 4.20 [place] mcIU/mL [facility] Specimen Anatomical Collection Method Collection Time Receive d Time (Source) Location / / Volume Laterality Blood specimen Venous Draw / 12/09/2016 4:15 AM 2016 4:31 (specimen) Unknown EDT AM EDT Resulting Agency Comment Spec In Lab Tayla Antonio MD CHEMISTRY ORDERABLES Performing Organization Address [facility] Phon e Number [address] Salicylate (12/09/2016 4:15 AM EDT) P athologist Signature Salicylate Lvl <20 mg/L [facility] Comment: Results rechecked by pmh Therapeutic Range: ??< 200 mg/L Arthritic Therapy: ??150-300 mg/L Toxic: ?> 350 mg/L ??Concentrations > 500 mg/L may be an i ndication for alkalinization of urine. Concentrations > 800 mg/L are often an i ndication for hemodialysis. Specimen Anatomical Collection Method Collection Time Receive d Time (Source) Location / / Volume Laterality Blood specimen Venous Draw / 12/09/2016 4:15 AM 2016 4:26 (specimen) Unknown EDT AM EDT Resulting Agency Comment Spec In Lab Tayla Antonio MD CHEMISTRY ORDERABLES Performing Organization Address [facility] e Number [address] Acetaminophen level (12/09/2016 4:15 AM EDT) P athologist Signature Acetamin Lvl <5 10 - 30 [facility] mg/L [facility] Comment: Results rechecked by pmh Levels >150 mg/L at 4 hours post ingesti on or >75 mg/L at 8 hours post ingestion are often an indication for N- Acetylcysteine. Specimen Anatomical Collection Method Collection Time Receive d Time (Source) Location / / Volume Laterality Blood specimen Venous Draw / 12/09/2016 4:15 AM 2016 4:26 (specimen) Unknown EDT AM EDT Resulting Agency Comment Spec In Lab Tayla Antonio MD CHEMISTRY ORDERABLES Performing Organization Address City/State/[place] [address] (ABNORMAL) Comprehensive metabolic panel (non-fasting) (12/09/2016 4:15 AM EDT) athologist Signature Glucose Lvl 157 65 - 199 [facility] mg/dL [facility] Comment: Diabetes: >=200 mg/dL plus symp toms BUN 11 8 - 18 mg/dL [facility] Creatinine 0.72 0.70 - 1.20 mg/dL [facility] Comment: Please note that the pediatric reference intervals supplied above were not validated at [facility]. Results from pediatri c patients should be interpreted in conjunction to the patient's age, height and muscle mass. Sodium 143 135 - 145 mmol/L [facility] Potassium 3.7 3.5 - 5.0 mmol/L [facility] Comment: Please note: ??Patients with WBC >100,00 0 may have falsely elevated Potassium levels. ??For accurate Potassium quantif ication in these patients send serum separator tube (gold top) for subsequent determinations. ??Contact the Clinical Chemistry Laboratory if there are any qu estions. Chloride 102 98 - 107 mmol/L [facility] CO2 22 22 - 31 mmol/L [facility] Anion Gap 19 (H) 5 - 15 mmol/L [facility] Calcium 9.7 8.5 - 10.5 mg/dL [facility] Total Protein 7.2 6.1 - 8.0 gm/dL [facility] Albumin 4.2 3.2 - 5.2 gm/dL [facility] AST 33 (H) 0 - 30 unit/L [facility] ALT 55 (H) 0 - 30 unit/L [facility] Alk Phos 142 (H) 40 - 104 unit/L [facility] Total Bilirubin <0.2 (L) 0.2 - 1.3 mg/dL [facility] Bili, Direct <0.1 0.0 - 0.3 mg/dL [facility] Estimated GFR >60 >=60 [facility] Comment: This estimated GFR (eGFR) value [...] the following links into your internet browser. [email or web address] Specimen Anatomical Collection Method Collection Time Receive d Time (Source) Location / / Volume Laterality Blood specimen Venous Draw / 12/09/2016 4:15 AM 2016 4:31 (specimen) Unknown EDT AM EDT Resulting Agency Comment Spec In Lab Tayla Antonio MD CHEMISTRY ORDERABLES Performing Organization Address [facility] Phon e Number [address] Green Tube HOLD (12/09/2016 4:15 AM EDT) P athologist Signature Green Hold Sample in [facility]. [facility] Specimen Anatomical Collection Method Collection Time Receive d Time (Source) Location / / Volume Laterality Blood specimen Venous Draw / 12/09/2016 4:15 AM 2016 4:29 (specimen) Unknown EDT AM EDT Tayla Antonio MD CHEMISTRY ORDERABLES Performing Organization Address [facility] Phon e Number [address] Valproic Acid Level, Total (12/09/2016 4:15 AM EDT) P athologist Signature Valproic Lvl <3 [facility] Comment: Results rechecked by pmh Therapeutic Range: Anticonvulsant Therapy: ??50-100 mg/L Manic Episodes Associated with Bipolar D isorder: ??50-125 mg/L Specimen Anatomical Collection Method Collection Time Receive d Time (Source) Location / / Volume Laterality Blood specimen 12/09/2016 4:15 AM 017 4:26 (specimen) EDT AM EDT Resulting Agency Comment Spec In Lab Tayla Antonio MD CHEMISTRY ORDERABLES Performing Organization Address City/State/[place] [address] Ethanol Level (12/09/2016 4:15 AM EDT) athologist Signature Ethanol Lvl <100 mg/L [facility] Comment: Greater than 800 mg/L (0.08%) should be considered intoxicated. 3400 to 4500 mg/L (0.34 - 0.45%) is cons idered severe intoxication. Greater than 5500 mg/L (0.55%) is usuall y fatal. Specimen Anatomical Collection Method Collection Time Receive d Time (Source) Location / / Volume Laterality Blood specimen 12/09/2016 4:15 AM 017 4:26 (specimen) EDT AM EDT Resulting Agency Comment Spec In Lab Tayla Antonio MD CHEMISTRY ORDERABLES Performing Organization Address City/[facility]/[place] [address] documented in this encounter Visit Diagnoses Diagnosis Paranoid schizophrenia Paranoid schizophrenia, unspecified cond ition documented in this encounter Administered Medications Inactive Administered Medications - up to 3 most recent administrations Medication Order MAR Action Action Date Dose Rate Site OLANZapine zydis (ZyPREXA) Given 12/09/2016 5:10 AM EDT 10 mg disintegrating tablet 10 mg 10 mg, Oral, ONCE, 1 dose, On Karla 12/09/16 at 0447, STAT documented in this encounter Active and Recently Administered Medications Times are shown in EDT. Scheduled Medication Order 12/07/2016 12/08/2016 12/09/2016 OLANZapine zydis (ZyPREXA) disintegrating tablet 10 mg (COMPLETE D) 0510 (Given - Provider: Jerrica Sepulveda RN) 10 mg, Oral, ONCE, 1 dose, Karla 12/09/16 at 0447, STAT documented in this encounter Care Teams Horse Racing Manager Relationship Specialty Start Date End Date None PCP - General 12/09/16 02/27/18 None documented as of this encounter
--- OUTSIDE RECORDS SUMMARY | 2022-07-23 00:57 | XMS_ITS | Encounter Summary ---
:1980 Author Organization [facility] [place] [address] Care Team Providers Name Role Phone None Primary Care Provider Unavailable Reason for Visit Auth/Cert Specialty Diagnoses / Procedures Referred By Contact Refer red To Contact Diagnoses Schizophrenia, unspecified type SCHIZOPHRENIA UNSPECIFIED TYPE Procedures INPT PSYCH Referral ID Status Reason Start Date Expiration Date Visits Requ ested Visits Authorized [id number] 1 1 Encounter Details Date Type Department Care Team Description 12/09/2016 - Hospital Encounter 2 [place] [facility] Shaila Case MD [facility] [place] [address] Schizophrenia, 12/10/2016 Unit Teagan Villa MD [facility] [place] [address] [place] [id number] Social History Tobacco Use Types Packs/Day Years Used Date Smoking Tobacco: Former Smokeless Tobacco: Never Tobacco Cessation: Counseling Given: No Alcohol Use Standard Drinks/Week Comments No 0 (1 standard drink = 0.6 oz pure alcoho l) Sex Assigned at Date Recorded Not on file documented as of this encounter Last Filed Vital Signs Vital Sign Reading Time Taken Comments Blood Pressure 133/73 12/10/2016 8:50 AM EDT Pulse 106 12/10/2016 8:50 AM EDT Temperature 36.3 ??C (97.3 ??F) 12/10/2016 8:50 AM EDT Respiratory Rate 16 12/10/2016 8:50 AM EDT Oxygen Saturation 92% 12/10/2016 8:50 AM EDT Inhaled Oxygen Concentration - - Weight 78.5 kg (173 lb 1 oz) 12/09/2016 6:30 AM EDT Height 160 cm (5' 3) 12/09/2016 6:30 AM EDT Body Mass Index 30.66 12/09/2016 6:30 AM EDT documented in this encounter Discharge Summaries Ronak Lacy MD - 12/10/2016 11:10 AM EDT Discharge Summary Patient Name: Shaneka Landon Patient Age: 36 y.o. Language: Argentine Race: White Ethnicity: Not nor Admit date: 12/09/2016 Discharge date and time: 12/10/2016 1 pm Attending Physician: Teagan Vyas Discharge Physician: Teagan Vyas Discharge Diagnosis: Schizophrenia Follow-up Recommendations for Providers: Please monitor the patient's condition, and adjust medications accordingly No medication changes Follow-up Providers/Appointments: (Name of provider, location, and date if not listed below) General Instructions We have made the following appointments for you. Please contact the providers directly if you need to reschedule. If the provider is new to you, please bring your insurance card and plan to arrive 15 minutes earlier than the appointment for new patient paperwork. If you have any questions after discharge regarding your discharge plan, please call Jaswinder at [phone]. Primary Care: None None None fax: None Psychiatry: Therapy: Reason for Hospitalization: safety, stabilization and medication management Discharge Diagnoses (Hospital Problems) and Secondary Diagnoses (Chronic Problems): Active Hospital Problems Diagnosis ??? Schizophrenia Resolved Hospital Problems Diagnosis Date Resolved No resolved problems to display. There are no active non-hospital problems to display for this patient. Discharge DSM 5 Diagnosis: Schizophrenia Operations/Major Procedures: none History of Presentation: As per the 12/09/2016 admission H&P: Shaneka Landon is a 36 y.o. female who presents to [facility] on 12/09/2016 with self reported dx of schizoaffective on abilify, topamax and depakote presenting with worsening paranoia and delusions in thecontext of recent change one week ago from geodon to abilify. She says she came in because the government is trying to kill her. She also says the air in her apartment is heavy and smells of chlorine making it hard for her to breathe. ?? At the time of my exam she reported she would like to leave because she says she is quite sure that the hospital staff are trying to kill her as well. During my interview, she is quite guarded, but willing to admit these thoughts are scaring her and is willing to take medications to calm her and help her think more clearly. She denies ever having tried olanzapine and after some discussion, agrees to take this and pause the interview. ?? When we resume our interview, she is still guarded but willing to discuss her symptoms a bit more. She denies AVH and is sure her delusions are true. When asked why the government is trying to kill her, she laughs, stating it's a long story, and comments that I must think her story is not believable. She reports I can't trust anyone, and regarding the government, I think they have a vendetta against me, but does not want to go into it further. She reports she drove herself down from [facility] because [facility] and [place] tried to kill me, so she does not want to return there. She does not state how or why they tried to do this. ?? She admits she has attempted suicide in the past, but has no thoughts of hurting or killing herself or anyone else right now. She denies depressive or manic symptoms other than decreased sleep, but reports this is related to her level of stress. She agrees that this stress is driving me crazy! and feels an admission would be helpful to change my meds and to be somewhere she can be safe. ?? We went over the rules of the unit and she agreed to a voluntary admission. She then asked are you going to try to kill me? Are you going to kill me? Look me in the eyes and tell me that! Satisfied with my answer, she continued to agree to admission. ?? Of note, she reports hypothyroidism but is not sure of Levothyroxine dose, fills her meds at [facility] in [facility] Hospital Course: Shaneka Landon was voluntarily admitted to inpatient psychiatry for safety, stabilization, and medication optimization. Standard admission labs were ordered and pertinent results are located below. Pt exhibited paranoid ideation, but expressed as stress. However pt did not present w/ threat to self and others. After discussion w/ outpt provider and pt, clozapine was offered and pt didn't want it due to weekly blood draw requirement. Pt preferred to continue abilify 30 mg and refused injectable because she states she takes medication everyday. Only 2 days after admission, pt expressed feeling great, denied AVH, denies SI/HI, calm, not paranoid about government spying on her. She did not meet the IEA criteria so she was discharged to home. On the day of discharge, the patient denied thoughts of suicide, homicide, or violence. Follow up was scheduled as described below, and this information was provided to the patient in her After Visit Summary. Patient was also provided with emergency contact information. Vital Signs at Discharge: BP: 133/73, Heart Rate: 106, Temp: 36.3 ??C (97.3 ??F), Resp: 16, BMI (Calculated): 30.7 Height: 160 cm (5' 3) (12/09/16629) Weight - Scale: 78.5 kg (173 lb 1 oz) (12/09/16629) Functional and Cognitive Status: improved Important Lab Data: none Important Studies: none Pending Labs and Studies: none ECT, Operations, or Other Major Procedures: None. For patients who received ECT, list number of treatments received during this admission and parameters of last ECT received: Discharge Medications: (Reviewed at time of discharge, indication for use included): Your Medications Notice Some of the medications listed here do not show instructions, such as how often to take the medication. Ask your doctor or nurse how to use these medications. Specifically ask about these and similar medications: - topiramate (TOPAMAX) 25 mg tablet - benztropine (COGENTIN) 0.5 mg tablet Continued medications with new dosing Dose Details ARIPiprazole 30 mg Tab Commonly known as: ABILIFY Take 1 tablet by mouth nightly. What changed: See the new instructions. Indication: psychosis 30 mg Refills: 0 Continued medications, unchanged Dose Details benztropine 0.5 mg Tab Commonly known as: COGENTIN ?nk?wn!?? Indication: akathisia Refills: 0 levothyroxine 25 mcg Tab Commonly known as: SYNTHROID Take by mouth daily. Indications:thyroid unknown dose Refills: 0 metFORMIN 1,000 mg Tab Commonly known as: GLUCOPHAGE Take 1,000 mg by mouth 2 times daily (with meals). Indication: DM 1000 mg Refills: 0 TOPAMAX 25 mg Tab Indication: pain ?nk?wn!?? Generic drug: topiramate Refills: 0 STOPPED Medications DEPAKOTE 250 mg Tbec Generic drug: divalproex Antipsychotic Quality Measure (select one of three reasons): Yes, greater than one antipsychotic; Recommendation of cross-titrate to taper to antipsychotic monotherapy in the future. Updated Allergies/ADRs: Allergies Allergen Reactions ??? Percocet [Oxycodone-Acetaminophen] Immunizations Given this Hospitalization: There is no immunization history on file for this patient. Smoking Status at Discharge: History Smoking Status ??? Former Smoker Smokeless Tobacco ??? Never Used Instructions Given to Patient at Discharge: Patient Instructions PATIENT DISCHARGE INSTRUCTIONS Vital Signs: Vital Signs Temp: 36.3 ??C (97.3 ??F) Temp Source: Oral Heart Rate: 106 Resp: 16 BP: 133/73 BP Method: Automatic SpO2: 92 % O2 Device: None (Room air) Operations and Procedures: None Important Lab Data: Psychiatry Labs: Preg: Lab Results Component Value Date HCGQUAL Negative 12/09/2016 Heme: Lab Results Component Value Date WBC 13.1 (H) 12/09/2016 HGB 14.2 12/09/2016 HCT 40.7 12/09/2016 PLATELET 366 (H) 12/09/2016 MCV 89.8 12/09/2016 NEUTROABS 9.50 (H) 12/09/2016 No results found for: HA1C, SEDRATE Chem: Lab Results Component Value Date NA 143 12/09/2016 K 3.7 12/09/2016 CL 102 12/09/2016 CO2 22 12/09/2016 BUN 11 12/09/2016 GLUCOSE 157 12/09/2016 Lab Results Component Value Date CALCIUM 9.7 12/09/2016 LFTs: Lab Results Component Value Date ALT 55 (H) 12/09/2016 AST 33 (H) 12/09/2016 ALKPHOS 142 (H) 12/09/2016 BILITOT <0.2 (L) 12/09/2016 Coags: No results found for: PTT, PT, INR Thyroid: Lab Results Component Value Date TSH 2.05 12/09/2016 Lipids and HgbA1C: No results found for: CHLPL, HDL, CHOLHDL, LDLCHOL, LDLDIRECT, TRIG No results found for: HA1C Vit Lvls: No results found for: [id number], SFOLATE UA: Lab Results Component Value Date GLUCOSEU Negative 12/10/2016 KETONESUA Negative 12/10/2016 PROTEINUADIP Negative 12/10/2016 BLOODUADIP Negative 12/10/2016 LEUKOESTERUA Negative 12/10/2016 NITRATEUA Negative 12/10/2016 WBCUA <1 12/10/2016 (May not represent most recent UA results. See eD-H labs for more details.) Tox: Lab Results Component Value Date ETHANOL <100 12/09/2016 ACTMNPHEN <5 12/09/2016 SALICYLATE <20 12/09/2016 No results found for: UDAUSCREEN Rx Lvls: Lab Results Component Value Date VALPROATE <3 12/09/2016 Pending Lab Data at Discharge: None Discharge Disposition: Home Primary Care Physician: None None Special Physician Instructions: The following changes were made to medication regimen during this hospitalization: 1. No changes. Continue abilify 30 mg by mouth at night. Please monitor patient's condition and adjust medications accordingly. Special Instructions Provided to Shaneka Landon: Call your doctor, your local mental health center, or your local emergency room if you develop worsening symptoms of depression, anxiety, thoughts of harming yourself, thoughts of harming others, or any other decline in your overall condition. [facility] Emergency Services: [facility] [phone] [facility] Emergency Services: [phone] [facility] Central Access Services: [phone] [facility] Main Line: [phone] Activity level: no restrictions from psychiatry Diet: no restrictions from psychiatry Driving: do not drive if sedated by medications Medications have been reviewed with the patient and the patient understands the use and side effectsof these medications as evidenced by discussions on interdisciplinary rounds. Follow up appointments (external or yet-to-be scheduled): Discharge References/Attachments None Discharge to: Home. Discharge Condition/Prognosis: Satisfactory condition. Prognosis is dependent on patient's participation in ongoing treatment and adherence with prescribed medications. Signed: Ronak Lacy 12/10/2016 Inpatient Provider Contact Information: Emergency Services (Crisis Line): [phone] [facility]: [phone] Hospital Main Line: [phone] Associated attestation - Teagan Vyas MD - 12/10/2016 12:49 PM EDT I have personally seen and examined the patient. The pt denies SI/HI or paranoia. The patient is future oriented and has specific practical and behavioral goals upon leaving the hospital. Please see progress note dated 12/10/16 for complete MSE and assessment. [ ] Pt is a non-smoker The patient is ready for discharge with aftercare per AVS. Greater than 30 minutes was spent coordinating discharge for this patient and included [id number] interview and exam, explanation of after visit instructions and medications to the patient and necessary caregivers, documentation, and prescription management. documented in this encounter Discharge Instructions Discharge Lissett Prather RN - 12/10/2016 1:08 PM EDT We have made the following appointments for you. Please contact the providers directly if you need to reschedule. If the provider is new to you, please bring your insurance card and plan to arrive 15 minutes earlier than the appointment for new patient paperwork. If you have any questions after discharge regarding your discharge plan, please call Jaswinder at [phone]. Primary Care: None None None fax: None Psychiatry: [facility] [id number] [facility] [id number] Kandace Ruiz December 16 @ 130 Therapy: Gissell Avery Dec 13 @ 130 Patient InstructionsRonak Lacy MD - 12/10/2016 11:40 AM EDT PATIENT DISCHARGE INSTRUCTIONS Vital Signs: Vital Signs Temp: 36.3 ??C (97.3 ??F) Temp Source: Oral Heart Rate: 106 Resp: 16 BP: 133/73 BP Method: Automatic SpO2: 92 % O2 Device: None (Room air) Operations and Procedures: None Important Lab Data: Psychiatry Labs: Preg: Lab Results Component Value Date HCGQUAL Negative 12/09/2016 Heme: Lab Results Component Value Date WBC 13.1 (H) 12/09/2016 HGB 14.2 12/09/2016 HCT 40.7 12/09/2016 PLATELET 366 (H) 12/09/2016 MCV 89.8 12/09/2016 NEUTROABS 9.50 (H) 12/09/2016 No results found for: HA1C, SEDRATE Chem: Lab Results Component Value Date NA 143 12/09/2016 K 3.7 12/09/2016 CL 102 12/09/2016 CO2 22 12/09/2016 BUN 11 12/09/2016 GLUCOSE 157 12/09/2016 Lab Results Component Value Date CALCIUM 9.7 12/09/2016 LFTs: Lab Results Component Value Date ALT 55 (H) 12/09/2016 AST 33 (H) 12/09/2016 ALKPHOS 142 (H) 12/09/2016 BILITOT <0.2 (L) 12/09/2016 Coags: No results found for: PTT, PT, INR Thyroid: Lab Results Component Value Date TSH 2.05 12/09/2016 Lipids and HgbA1C: No results found for: CHLPL, HDL, CHOLHDL, LDLCHOL, LDLDIRECT, TRIG No results found for: HA1C Vit Lvls: No results found for: [id number], SFOLATE UA: Lab Results Component Value Date GLUCOSEU Negative 12/10/2016 KETONESUA Negative 12/10/2016 PROTEINUADIP Negative 12/10/2016 BLOODUADIP Negative 12/10/2016 LEUKOESTERUA Negative 12/10/2016 NITRATEUA Negative 12/10/2016 WBCUA <1 12/10/2016 (May not represent most recent UA results. See eD-H labs for more details.) Tox: Lab Results Component Value Date ETHANOL <100 12/09/2016 ACTMNPHEN <5 12/09/2016 SALICYLATE <20 12/09/2016 No results found for: UDAUSCREEN Rx Lvls: Lab Results Component Value Date VALPROATE <3 12/09/2016 Pending Lab Data at Discharge: None Discharge Disposition: Home Primary Care Physician: None None Special Physician Instructions: The following changes were made to medication regimen during this hospitalization: 1. No changes. Continue abilify 30 mg by mouth at night. Please monitor patient's condition and adjust medications accordingly. Special Instructions Provided to Shaneka Landon: Call your doctor, your local mental health center, or your local emergency room if you develop worsening symptoms of depression, anxiety, thoughts of harming yourself, thoughts of harming others, or any other decline in your overall condition. [facility] Emergency Services: [facility] [phone] [facility] Emergency Services: [phone] [facility] Central Access Services: [phone] [facility] Main Line: [phone] Activity level: no restrictions from psychiatry Diet: no restrictions from psychiatry Driving: do not drive if sedated by medications Medications have been reviewed with the patient and the patient understands the use and side effectsof these medications as evidenced by discussions on interdisciplinary rounds. Follow up appointments (external or yet-to-be scheduled): documented in this encounter Medications at Time of Discharge Medication Sig Dispensed Refills Start Date End Date levothyroxine (SYNTHROID) Take by mouth 0 25 mcg TabletIndications: daily. Indications: unknown dose unknown dose ARIPiprazole (ABILIFY) 30 Take 1 tablet by 0 03/201703/16/2017 mg Tablet mouth nightly. metFORMIN (GLUCOPHAGE) Take 1,000 mg by 0 03/16/2017 1,000 mg Tablet mouth 2 times daily (with meals). topiramate (TOPAMAX) 25 mg 0 9 03/16/2017 tablet benztropine (COGENTIN) 0.5 0 9 03/16/2017 mg tablet documented as of this encounter Progress Notes Josué Hernandez RN - 12/10/2016 1:30 PM EDT Psychiatric Nursing Discharge Note Patient Completed Relapse Prevention Plan: no Patient aware of follow-up appointments: yes Patient evidences understanding of medication use and regime: yes Patient belongings returned: yes Patient left unit with: RN At what time?1315 Syeda Castelan MHT - 12/10/2016 10:29 AM EDT Inpatient Daily Group Note Group: [...] food allowed during groups. Attendance: Present Behavior: Relevant Mood: Calm Notes: Pt states she plans to attend groups today. LEAH MORALES 12/10/2016 Inpatient Daily Group Note Group: CBT Facilitated [...] Therapeutic Work Observed: Moderate Mood: Calm Notes: see above. LEAH MORALES 12/10/2016 Ronak Lacy MD - 12/10/2016 9:06 AM EDT Psychiatry Inpatient - Progress Note 12/10/2016 ID: Shaneka Landon is a 36 y.o. female admitted on 12/09/2016 for paranoia. Hospital day 1. Current Working Primary Diagnosis: schizophrenia Pertinent medical issues being addressed: none Interval History: (1,1,4) -At night, pt changed her mind wanted abilify instead of perphenzine, so pt received abilify 30 mg (home dose) last night. -Feeling ???better?? -???I think I just needed a chance to clear my head?? -Denies PI, denies gov???t spying on her -She states she thought that way in the past for ???ability to kick in more?? -Denies AVH -Denies SI/HI -denies headache, n/v, and abd pain -encouraged pt to set an apt w/ case sealer on Tuesday Review of Systems: (0,1,2) CONST CV RESP GI Denies n/v/ abd pain NEURO Denies headache PSYCH See above. Physical Exam: (1,6,9) Vitals (24hr Range): Temp: [36.3 ??C (97.3 ??F)-36.7 ??C (98.1 ??F)] Resp: [16] Heart Rate: [77-106] BP: (132-133)/(54-73) SpO2: [92 %-97 %] Patient Vitals for the past 168 hrs: Weight 12/09/16 0630 78.5 kg (173 lb 1 oz) Musculoskeletal System: ambulates independently Mental Status Exam: Appearance: Casually dressed, fair grooming, sitting in no apparent discomfort Behavior: No psychomotor agitation or slowing, appropriate eye contact, cooperative with interview Speech: Normal rate, pitch, and prosody. Volume appropriate for setting. Language: Appropriate, Argentine-speaking Mood: better Affect: dysthymic, restricted Thought Process: Linear, logical, and goal-directed. Associations: Tight and intact. Thought Content: No delusions or paranoid ideas, no suicidal and no homicidal ideation Perception: No audio, visual, or tactile hallucinations. Does not appear to be responding to internal stimuli Orientation: alert Attention/Concentration: Intact to interview and discussion regarding care. Cognition: Grossly intact Memory: Remote and recent memory intact Fund of Knowledge: Appears appropriate for level of education. Insight: improved Judgment: fair Current Medications: Scheduled: ??? metFORMIN 500 mg Oral BID WC ??? levothyroxine 75 mcg Oral QAM ??? topiramate 100 mg Oral Daily ??? gabapentin 100 mg Oral Daily ??? ARIPiprazole 30 mg Oral Nightly PRN: OLANZapine zydis Labs: Last 24 Hours: Recent Results (from the past 24 hour(s)) urine, qualitative Result Value Ref Range SG Urine 1.005 1.002 - 1.030 Beta HCG Qual Negative Psychiatry Labs: Preg: Lab Results Component Value Date HCGQUAL Negative 12/09/2016 Heme: Lab Results Component Value Date WBC 13.1 (H) 12/09/2016 HGB 14.2 12/09/2016 HCT 40.7 12/09/2016 PLATELET 366 (H) 12/09/2016 MCV 89.8 12/09/2016 NEUTROABS 9.50 (H) 12/09/2016 No results found for: HA1C, SEDRATE Chem: Lab Results Component Value Date NA 143 12/09/2016 K 3.7 12/09/2016 CL 102 12/09/2016 CO2 22 12/09/2016 BUN 11 12/09/2016 GLUCOSE 157 12/09/2016 Lab Results Component Value Date CALCIUM 9.7 12/09/2016 LFTs: Lab Results Component Value Date ALT 55 (H) 12/09/2016 AST 33 (H) 12/09/2016 ALKPHOS 142 (H) 12/09/2016 BILITOT <0.2 (L) 12/09/2016 Coags: No results found for: PTT, PT, INR Thyroid: Lab Results Component Value Date TSH 2.05 12/09/2016 Lipids and HgbA1C: No results found for: CHLPL, HDL, CHOLHDL, LDLCHOL, LDLDIRECT, TRIG No results found for: HA1C Vit Lvls: No results found for: [id number], SFOLATE UA: No results found for: GLUCOSEU, KETONESUA, PROTEINUADIP, BLOODUADIP, LEUKOESTERUA, NITRATEUA, WBCUA (May not represent most recent UA results. See eD-H labs for more details.) Tox: Lab Results Component Value Date ETHANOL <100 12/09/2016 ACTMNPHEN <5 12/09/2016 SALICYLATE <20 12/09/2016 No results found for: UDAUSCREEN Rx Lvls: Lab Results Component Value Date VALPROATE <3 12/09/2016 Assessment: Shaneka Landon is a 36 y.o. female admitted on 12/09/2016 for paranoia. Pt's paranoia has improved w/ olanzapine- demonstrates organized thought process, behavior, denies SI/HI, and denies AVH w/ regular f/us w/ NEKSVs. Pt wants to leave today. She does not meet the IEA criteria. Will be discharged today. Current Working Primary Diagnosis: schizophrenia Clinical Global Impression Severity of illness: Considering your total clinical experience with this particular population, howmentally ill is the patient at this time? 4 = Moderately ill Global improvement: Rate total improvement compared to condition at admission, how much has she changed? Markedly Improved Plan: # Schizophrenia -Continue abilify 30 mg qhs -Therapeutic milieu -Inpt groups # Disposition: -After stabilization, patient expected to return home today Additional Information: Outpatient Care: Provider Name Date Contacted By Treatment Team Psychiatric prescriber [facility] K[facility] 12/09 Therapist TITA PCP Patient Instruction/Education Provided: Patient provided verbal instructions during rounds regardingthe treatment plan. I have reviewed and agree with the multidisciplinary treatment plan. Signed By: Ronak Lacy MD 12/10/2016 Associated attestation - Teagan Vyas MD - 12/10/2016 12:48 PM EDT I have seen the patient and reviewed the resident's above history and I agree with the details as written.?The assessment and plan were formulated in discussion with me and I agree with them as documented. ?? Major issues addressed: Pt states that she feels better good. Thinks that she didn't give the Abilify a chance to kick in. Pt states that she is not thinking that the government is after her I am not thinking that way anymore. Feels the Abilify is helpful. Does look brighter this morning with better eye contact. Affect blunted but still brighter. Denies SI/HI or AVH. No paranoia today. Denies sfxto medications. ?? Plan: - contact with MIRTHA to see about follow-up; pt states that she has group therapy @ 130 on , has a case sealer - cristy Conway - could leave today if team f/u in place, otherwise could benefit from more time on the medication ?? I certify that the patient requires: [X] inpatient care for psychiatric treatment, that could be reasonably expected to improve the patient's condition and/or diagnostic study. Ronak Lacy MD - 12/09/2016 4:59 PM EDT Spoke w/ psychiatrist today- Kandace Hassan Pt has been stable on abilify + depakote for 10 years. Depakote stopped during one of hospitalization due to alopecia. Recently crossing tapering abilify + geodon (akathisia).Pt has been taking abilify for 1 week. Recommend clozapine or abilify + injectable due to history of poor compliance. Identical twin has schizoaffective dx and responded well to clozapine. Gave pt three options- continue abilify + injectable vs perphenazine vs clozapine Pt refused clozapine because of need for weekly blood draw Abilify- she says it's no longer working and she doesn't want to continue. She doesn't want an injectable because she takes meds everyday. Pt agreed w/ 8 mg perphenazine. Eugenie Thomas MSW - 12/09/2016 3:17 PM EDT O: Patient reviewed and discussed in interdisciplinary treatment team rounds. Patient is actively psychotic and unable to participate in interview process. P: Will continue to follow with team. Complete Psychosocial Assessment as soon as possible. Available to assist with discharge planning. Ramy Will MS - 12/09/2016 1:16 PM EDT Inpatient Daily Group Note Group: Goals, reviewed daily schedule, patients' progress and goals and read daily text. Notes: Patient did not attend group. RAMY WILL MS 12/09/2016 documented in this encounter H&P Notes Tremayne King - 12/09/2016 6:03 AM EDT Psychiatry - Admission History & Physical Note Name: Shaneka Landon Age: 36 y.o. Gender: Female Marital Status: single Children: unknown Employment: on disability City of Residence: [address] [place] [address] Guardian/Medical Decision Maker: Outpatient providers: Current Psychiatrist: Mora Gross ([facility]) Current Therapist: PCP: None Chief Complaint: the government is trying to kill me... It's a long story History of Present Illness: (4) Shaneka Landon is a 36 y.o. female who presents to [facility] on 12/09/2016 with self reported dx of schizoaffective on abilify, topamax and depakote presenting with worsening paranoia and delusions in thecontext of recent change one week ago from geodon to abilify. She says she came in because the government is trying to kill her. She also says the air in her apartment is heavy and smells of chlorine making it hard for her to breathe. At the time of my exam she reported she would like to leave because she says she is quite sure that the hospital staff are trying to kill her as well. During my interview, she is quite guarded, but willing to admit these thoughts are scaring her and is willing to take medications to calm her and help her think more clearly. She denies ever having tried olanzapine and after some discussion, agrees to take this and pause the interview. When we resume our interview, she is still guarded but willing to discuss her symptoms a bit more. She denies AVH and is sure her delusions are true. When asked why the government is trying to kill her, she laughs, stating it's a long story, and comments that I must think her story is not believable. She reports I can't trust anyone, and regarding the government, I think they have a vendetta against me, but does not want to go into it further. She reports she drove herself down from [facility] because [employer] and [place] tried to kill me, so she does not want to return there. She does not state how or why they tried to do this. She admits she has attempted suicide in the past, but has no thoughts of hurting or killing herself or anyone else right now. She denies depressive or manic symptoms other than decreased sleep, but reports this is related to her level of stress. She agrees that this stress is driving me crazy! and feels an admission would be helpful to change my meds and to be somewhere she can be safe. We went over the rules of the unit and she agreed to a voluntary admission. She then asked are you going to try to kill me? Are you going to kill me? Look me in the eyes and tell me that! Satisfied with my answer, she continued to agree to admission. Of note, she reports hypothyroidism but is not sure of Levothyroxine dose, fills her meds at [facility] in [facility]. Psychiatric Review of Systems: Sustained Depressed Mood: denies Sustained Elevated Mood: denies Sustained Irritable Mood: + Flashbacks: - Nightmares: - Panic Attacks: - Chronic Worry: + Psychotic Symptoms: + paranoia, +appears to respond to internal stimuli at times +ruminations aboutgovt Obsessions/compulsions: - Violence: denies Self Harm: OD multiple, no other Other Psychiatric History: Prior diagnoses: SCZ, SAD Past hospitalization and location: reports multiple psych hospitalizations Suicide attempts: OD'd several Past psychiatric medications (include dose, length of use, response, reason for stopping): geodon - akathisia Naomi - that was a long time ago risperdal - wt gain Substance Use History/Treatment: Tobacco: Tobacco Use Status (Tob-1) Have you used tobacco products in the past 30 days? no Tobacco Use Treatment (Tob-2: Medication) Would you like a medication to help with tobacco cessation? no Tobacco Use Treatment (Tob-2: Counseling) Would you like counseling for help with quitting tobacco? no Substance Use: EtOH: denies Tobacco: denies Marijuana: denies IV Drugs: denies Prescription Drugs: denies AUDIT-C Screening: How often do you have a drink containing alcohol? Never - (0 pt) How many standard drinks containing alcohol do you have a typical day? 1 or 2 - (0pt) How often do you have six or more drinks on one occasion? Never - (0pt) Total Score: 0 Family Medical/Psychiatric History (mental illness, substance use, suicide): sister with scz Social History: live in [facility] alone with cat History of Abuse/Neglect: unknown Legal History: never Prior to Admission Medications: Current Facility-Administered Medications on File Prior to Encounter Medication Dose Route Frequency Provider Last Rate Last Dose ??? [COMPLETED] OLANZapine zydis (ZyPREXA) disintegrating tablet 10 mg 10 mg Oral Once Tayla Antonio MD 10 mg at 12/09/16 0510 ??? [DISCONTINUED] OLANZapine zydis (ZyPREXA) disintegrating tablet 10 mg 10 mg Oral Nightly Tayla Antonio MD Current Outpatient Prescriptions on File Prior to Encounter Medication Sig Dispense Refill ??? metFORMIN (GLUCOPHAGE) 1,000 mg Tablet Take 1,000 mg by mouth 2 times daily (with meals). ??? aripiprazole (ABILIFY) 20 mg tablet ??? topiramate (TOPAMAX) 25 mg tablet ??? divalproex (DEPAKOTE) 250 mg EC tablet ??? benztropine (COGENTIN) 0.5 mg tablet Allergies: Allergies Allergen Reactions ??? Percocet [Oxycodone-Acetaminophen] Problem List: Patient Active Problem List Diagnosis Code ??? Schizophrenia F20.9 Past, Family, Social History: (1,3) Past Medical/Surgical History: hypothyroidism No past medical history on file. No past surgical history on file. 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 ENDO No diaphoresis HEME/LYMPH No easy bleeding ALL/IMMUNO No symptoms of environmental allergies Pain Assessment: Recent pain severity: 0/10 (10=worst) Location of pain due to medical condition: Controlled with use of: Physical Exam: (, 14, 14) ?? Vital signs No data found. Musculoskeletal System: ?? Gait and station are within normal limits (See also: MSE: Motor/behavior) GEN No acute distress HEAD Normocephalic and atraumatic EYES PERRL, EOMI, no scleral icterus, no injection ENT Moist mucous membranes, normal palatal elevation NECK No LAD and no thyromegaly CV RRR and no M/G/R PULM Clear to auscultation bilaterally ABD Soft, NT, ND and +BS EXTR Good peripheral pulses NEURO Grossly nonfocal and CN II-XII grossly intact SKIN No rashes, no ulcers Mental Status Exam: Appearance: Casually dressed, fair grooming Behavior: No psychomotor agitation or slowing, intense eye contact, guarded Speech: Average rate, pitch, decreased quantity and normal prosody. Volume appropriate for setting. Language: Appropriate, non-profane; Argentine-speaking Mood: I think you are all trying to kill me Affect: Non-labile, blunted to flat, noncongruent with mood. Thought Process: Wagoner Associations: loose. Thought Content: +paranoid delusions, no suicidal and no homicidal ideation Perception: No visual, or tactile hallucinations. Denies AH, but seen 1-2 times quickly turning her head and looking at the corner of the room Orientation: Person, place, time/date and situation Attention/Concentration: Intact to interview and discussion regarding care. Cognition: Grossly intact Memory: Remote and recent memory intact Fund of Knowledge: Appears appropriate for level of education. Insight: limited Judgment: poor Pertinent Labs/Studies: Recent Results (from the past 24 hour(s)) Ethanol Level Result Value Ref Range Ethanol Lvl <100 mg/L Valproic Acid Level, Total Result Value Ref Range Valproic Lvl <3 Green Tube HOLD Result Value Ref Range Green Hold Sample in lab. Comprehensive metabolic panel (non-fasting) Result Value Ref Range Glucose Lvl 157 65 - 199 mg/dL BUN 11 8 - 18 mg/dL Creatinine 0.72 0.70 - 1.20 mg/dL Sodium 143 135 - 145 mmol/L Potassium 3.7 3.5 - 5.0 mmol/L Chloride 102 98 - 107 mmol/L CO2 22 22 - 31 mmol/L Anion Gap 19 (H) 5 - 15 mmol/L Calcium 9.7 8.5 - 10.5 mg/dL Total Protein 7.2 6.1 - 8.0 gm/dL Albumin 4.2 3.2 - 5.2 gm/dL AST 33 (H) 0 - 30 unit/L ALT 55 (H) 0 - 30 unit/L Alk Phos 142 (H) 40 - 104 unit/L Total Bilirubin <0.2 (L) 0.2 - 1.3 mg/dL Bili, Direct <0.1 0.0 - 0.3 mg/dL Estimated GFR >60 >=60 Acetaminophen level Result Value Ref Range Acetamin Lvl <5 10 - 30 mg/L Salicylate Result Value Ref Range Salicylate Lvl <20 mg/L Hemogram Result Value Ref Range WBC 13.1 (H) 4.0 - 9.5 x10(3)/mcL RBC 4.53 4.00 - 5.21 x10(6)/mcL Hemoglobin 14.2 11.7 - 15.5 gm/dL Hematocrit 40.7 35.7 - 45.8 % MCV 89.8 82.6 - 94.4 fL MCH 31.3 27.1 - 32.0 pg MCHC 34.9 31.7 - 35.0 gm/dL Platelets 366 (H) 145 - 357 x10(3)/mcL RDWSD 43.1 37.0 - 46.0 fL RDWCV 13.1 11.5 - 14.1 % MPV 9.4 7.6 - 12.9 fL nRBC % Auto 0.0 % nRBC Abs Auto 0.000 0.000 - 0.000 x10(3)/mcL Differential, Automated Result Value Ref Range Neutrophils % 72.3 % Neutr Abs (ANC) 9.50 (H) 1.70 - 6.10 x10(3)/mcL Lymphocytes % 20.5 % Lymphocytes Abs 2.7 0.9 - 3.2 x10(3)/mcL Monocytes % 5.2 % Monocyte Abs 0.7 0.3 - 0.9 x10(3)/mcL Eosinophils % 1.4 % Eosinophils Abs 0.2 0.0 - 0.4 x10(3)/mcL Basophils % 0.3 % Basophils Abs 0.0 0.0 - 0.1 x10(3)/mcL Immature Gran % 0.30 % Lisa Gran Abs 0.04 0.00 - 0.04 x10(3)/mcL Blue Tube HOLD Result Value Ref Range Blue Hold Sample in lab. Rapid Drug Screen, Urine Result Value Ref Range CATRINA Marijuana Metabolites Scr None Detected None Detected CATRINA Phencyclidine Scr None Detected None Detected CATRINA Cocaine Metabolites Scr None Detected None Detected CATRINA Methamphetamines Scr None Detected None Detected CATRINA Opiates Scr None Detected None Detected CATRINA Amphetamines Scr None Detected None Detected CATRINA Benzodiazepines Scr None Detected None Detected CATRINA Tricyclics Scr None Detected None Detected CATRINA Methadone Scr None Detected None Detected CATRINA Barbiturates Scr None Detected None Detected CATRINA Oxycodone Scr None Detected None Detected CATRINA Propoxyphene Scr None Detected None Detected CATRINA Buprenorphine Scr None Detected None Detected CATRINA Adulterants Screen None Detected None Detected Assessment/Formulation: Shaneka Landon is a 36 y.o. female with schizophrenia who presents to [facility] for worsening psychotic sx including paranoid delusions in the context of recent change in antipsychotic. She is clearly symptomatic with what appears to be an acute decompensation of her schizophrenic illness, with mental status exam also supportive of this. However without collateral this is purely speculation and therefore, confirmation with her outpatient team at [facility] will be essential. Plan to admit and give olanzapine PRN. Day team will need to contact family, outpt team and pharmacy to confirm meds. Per depakote level, she may not be taking her meds at all, so will continue with PRN zyprexa and hold all other meds pending confirmation with pharmacy. Also, will need to workup leukocytosis, starting with UA which was not obtained in the ED. Would verify UPT before restarting depakote as well. Safety Risk Assessment: Warrants ongoing inpatient admission for safety, stabilization, and any other therapeutic intervention that could conceivably improve her condition (including medication management, group psychotherapy, establishing adequate outpatient care). Diagnosis: Schizophrenia, unspecified type Clinical Global Impression: Severity of illness: Considering your total clinical experience with this particular population, howmentally ill is the patient at this time? 7 = Among the most extremely ill patients Immediate Treatment Plan: # Schizophrenia - Admit patient to Psychiatry Care Unit. - Labs: still needs UA, Urine Tox Screen, UPT ordered but not obtained in ED - Medications - zyprexa zydis 5mg TID PRN agitation/paranoia - ativan 1mg BID PRN anxiety # Supportive: - Activity: Restrict to Unit (RTU) - Diet: regular - Daily vitals - Discussed Advanced Directives and Code Status. The patient wishes to be Full Code. # Preventative/Proophylaxis: - DVT prophylaxis not indicated: patient is at low risk for VTE and is fully ambulatory. - If currently a smoker: advised about smoking cessation, will provide cessation material and support. - Pneumovax and Influenza immunizations to be given as needed. # Disposition: - Estimated length of time needed for hospital staff is 3-5 days. - Proposed post-discharge care will likely include re-establishing follow-up care with existing providers. I certify that the patient requires inpatient care for psychiatric treatment that could reasonably be expected to improve the patient's condition and/or diagnostic study. H JAKE KING MD 12/09/2016 Associated attestation - Teagan Vyas MD - 12/09/2016 3:36 PM EDT I have seen the patient and reviewed the resident's above history and I agree with the details as written. The assessment and plan were formulated in discussion with me and I agree with them as documented. Major issues addressed: Pt is disheveled with thinning hair, eyes barely opened, and slight dysarthria. States that she is here because people are trying to kill me.States there are specific people and people working for those people that are out to harm her. Requesting a medication change. Did takeAbilify 30 yesterday morning. Going on for months, years, but it's getting worse. Denies SI/HI. 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 Per psychiatrist at [facility], pt long stable on Abilify. Would prefer injectible or clozapine (pt's sister with schizoaffective disorder is stable on clozapine) before switching to something else. Plan: Paranoid schizophrenia - discuss med options with pt. - consider Abilify Maintena, Clozapine or switch to FGA like perphenazine - d/c 12/15 I certify that the patient requires: [X] inpatient care for psychiatric treatment, that could be reasonably expected to improve the patient's condition and/or diagnostic study. documented in this encounter Miscellaneous Notes Plan of Care - Lissett Blevins, AKASH - 12/10/2016 8:49 AM EDT MULTIDISCIPLINARY TREATMENT PLAN Patient: Shaneka Landon Guardian: Ph: DPOA: Ph: Todays Date: 12/10/2016 Next Kin: Ph: Admit Date: 12/09/2016 6:22 AM CODE STATUS: DNR/DNI or Full Initial date of care plan. Update every 7 day Working Diagnosis: PATIENT'S REASON FOR HOSPITALIZATION (his or her own words) 1. STRESSORS/PROBLEMS TARGET SYMPTOMS: 1. 1. 2. 2. 3. 3. GOALS 1. Stabilize target symptoms and improve understanding of illness 2. Patient to create and implement aftercare plan 3. 4. 5. PHYSICIAN INTERVENTIONS ACTIVITY INTERVENTIONS 1. Continued psychiatric evaluation 1. Behavioral Activation Communication Program 2. Med management/Brief therapy 2. Therapeutic groups & activities 3. Diagnostic/Medical testing/Labs 3. NURSING INTERVENTIONS PCM & SW INTERVENTIONS 1. Purposeful rounding 1. Facilitate communication with family 2. See Nursing care plan 2. Facilitate communication with providers 3. 3. Assist with discharge planning I have worked with my treatment team and agree with the plan above. 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 Has been quietly sitting in common area, watching tv. Pleasant when engaged. Unable to quantify mood. I don't know what I feel. Expressing some paranoia. Feels zyprexa prn received on days has been helpful. Patient requesting to be put back on abilify as discussed with MD earlier today. Expresses that she has changed her mind about trying perphenazine and benadryl. Change made by MD. PLAN MOVING FORWARD: Encourage participation in groups, work on coping skills Monitor mood, behavior, thought process on the unit INDIVIDUALIZED FALL PREVENTION INTERVENTIONS: Patient-specific fall risk factors per assessment: [current deficits]: Medication adjustments Assistance [level of assistance required for transfers and ambulation]: independent Supervision [direct monitoring required during toileting and ADLs]: independent Surveillance [continuous indirect monitoring]: 30 minute checks Patient-specific fall prevention interventions for sensory deficits provided, if applicable: NA CPG GOAL OUTCOME EVALUATION: Plan of Care - Josué Hernandez RN - 12/09/2016 2:06 PM EDT Problem: Patient Care Overview Goal: Plan of Care Review Outcome: Ongoing (Interventions Implemented as Appropriate) 12/09/16 1356 Coping/Psychosocial Plan Of Care Reviewed With patient Plan of Care Review Progress progress toward functional goals as expected OUTCOME EVALUATION NOTE: OUTCOME SUMMARY: Patient was admitted early this AM. She slept until about 1100. She denied suicidal ideation. Her affect was flat. She feels that people are trying to kill her. She feels safe here in the hospital. Sheisolated in her room most of the shift. PLAN MOVING FORWARD: Start perphenazine tonight. Encourage groups as tolerated. INDIVIDUALIZED FALL PREVENTION INTERVENTIONS: Patient-specific fall risk factors per assessment: [current deficits]: none Assistance [level of assistance required for transfers and ambulation]: independent Supervision [direct monitoring required during toileting and ADLs]: independent Surveillance [continuous indirect monitoring]: 30 minute checks Patient-specific fall prevention interventions for sensory deficits provided, if applicable: [X] N/A CPG GOAL OUTCOME EVALUATION: Initial Assessments - Jaswinder Mullins - 12/09/2016 8:41 AM EDT Initial Patient Assessment JASWINDER MULLINS RN reviewed record and discussed patient with Care Team on 12/09/2016. Introduced/reviewed role; services accepted. Shaneka Landon is a 36 y.o. year old female (1980) presenting to [address] [place] [address] for treatment with Schizophrenia, unspecified type [F20.9] Anticipated Length Of Stay (If known): unknown Patient/Caregiver Goals of Treatment: I need a med change Source of Information: Pt supplied/corraborated REASON for HOSPITALIZATION: 'people are trying to kill me' Medical/Behavioral Health History: has Schizophrenia on her problem list. Current treaters: [facility] Hospitalizations Within the Past 30 Days: none known PERTINENT INFO FROM H & P: Shaneka Landon is a 36 y.o. female who presents to [facility] on 12/09/2016 with self reported dx of schizoaffective on abilify, topamax and depakote presenting with worsening paranoia and delusions in the context of recent change one week ago from geodon to abilify. She says she came in because the government is trying to kill her. She also says the air in her apartment is heavy and smells of chlorine making it hard for her to breathe. ?? At the time of my exam she reported she would like to leave because she says she is quite sure that the hospital staff are trying to kill her as well. During my interview, she is quite guarded, but willing to admit these thoughts are scaring her and is willing to take medications to calm her and help her think more clearly. She denies ever having tried olanzapine and after some discussion, agrees to take this and pause the interview. ?? When we resume our interview, she is still guarded but willing to discuss her symptoms a bit more. She denies AVH and is sure her delusions are true. When asked why the government is trying to kill her, she laughs, stating it's a long story, and comments that I must think her story is not believable. She reports I can't trust anyone, and regarding the government, I think they have a vendetta against me, but does not want to go into it further. She reports she drove herself down from [facility] because [facility] and [place] tried to kill me, so she does not want to return there. She does not state how or why they tried to do this. ?? She admits she has attempted suicide in the past, but has no thoughts of hurting or killing herself or anyone else right now. She denies depressive or manic symptoms other than decreased sleep, but reports this is related to her level of stress. She agrees that this stress is driving me crazy! and feels an admission would be helpful to change my meds and to be somewhere she can be safe. ?? We went over the rules of the unit and she agreed to a voluntary admission. She then asked are you going to try to kill me? Are you going to kill me? Look me in the eyes and tell me that! Satisfied with my answer, she continued to agree to admission. ADVANCE DIRECTIVES: <no information> Information provided as needed HEALTH /PRESCRIPTION COVERAGE: Current Effective Coverage: Payor/Plan Subscr Sex Relation Sub. Ins. ID Effective Group Num 1. MEDICAID [place] -* SHANEKA LANDON* 1980 Female Self [id number] 12/07/16 [address] 2. MEDICAID [place] -* SHANEKA LANDON* 1980 Female Self [id number] 12/09/16 [address] Prescription Coverage: see above Confirmed Preferred Pharmacy: [facility] in 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 CURRENT PATIENT & FAMILY EDUCATION, COPING NEEDS: (Address patient/family satisfaction with careto date, understanding of current status and plan of care, need for family meeting, need for per diem interpreter, etc.) Coping skills, med education Functional Status Prior to Admission: Able to perform ADLs/IADLs independently and with assistance Current Functional Ability: (use of assistive devices, working with PT/OT, etc.) Able to perform ADLs/IADLs independently and with assistance Anticipated Barriers to Discharge/Special Considerations: (Financial/underinsured, behavioral, lack of needed support/access to community resources, current substance abuse, homelessness, etc.) None identified Potential Needs for Transition of Care: Home Health: na Any special transportation needed at D/C to [address] [place] [address]? no Rehab/SNF: na New community resources referrals needed? no PLAN: PCM will continue to monitor progress, follow for continuity of care and assist with transition of care planning while hospitalized. JASWINDER MULLINS RN BSN [facility] PAGER: [phone] Plan of Care - Jaswinder Mullins - 12/09/2016 8:38 AM EDT MULTIDISCIPLINARY TREATMENT PLAN Todays Date: 12/09/2016 Patient: Shaneka Landon Admit Date: 12/09/2016 6:22 AM CODE STATUS:Full Code Initial date of care plan. __12/09/16_ Update Q7 days Working Diagnosis: Schizophrenia, unspecified type [F20.9] PATIENT'S REASON FOR HOSPITALIZATION (his or her own words) the government is trying to kill me... It's a long story STRENGTHS STRESSORS TARGET SYMPTOMS 1. Current treaters Recent med changes Thought disorder 2. Poor sleep Guarded, paranoid 3. Paranoid thoughts Sleep disturbance GOALS 1 Stabilize target symptoms and improve understanding of illness 2 Work with Patient Front Maker Lockstitch to create and implement aftercare plan 3 Medication optimization 4 Groups for education, skill building and support 5 Complete Relapse Plan prior to discharge PHYSICIAN INTERVENTIONS ACTIVITY INTERVENTIONS 1. Continued psychiatric evaluation 1. Behavioral Activation Communication Program 2. Med management/Brief therapy 2. Therapeutic groups & activities 3. Diagnostic/Medical testing/Labs 3. Patient and family education NURSING INTERVENTIONS PCM & SW INTERVENTIONS 1. Purposeful rounding 1. Facilitate communication with family 2. See Nursing care plan 2. Facilitate communication with providers 3. 3. Assist with discharge planning The multidisciplinary team reviewed falls prevention plan with me. I have worked with my treatment team and agree with the plan above. PATIENT SIGNATURE DATE: Shaneka Landon PRINT NAME: SIGNATURE: DATE: RESIDENT PHYSICIAN ATTENDING PHYSICIAN Teagan Vyas MD NURSING PATIENT DREDGE DECKHAND Jaswinder Mullins ADOLESCENT MEDICINE SPECIALIST [facility] THERAPIST TRIMMING DEPARTMENT BLOCKER Eugenie MADRID documented in this encounter Plan of Treatment Scheduled Orders Name Type Priority Associated Diagnoses Order S chedule EKG 12 Lead ECG Routine Schizophrenia, unspecified O ne Time for 1 Occurrences type starting 2016 until 12/10/2016 documented as of this encounter Procedures Procedure Name Priority Date/Time Associated Comments Diagnosis URINALYSIS WITH Routine 12/10/2016 10:00 Results for this REFLEX CULTURE AM EDT procedure are in the results section. URINE, Routine 12/09/2016 4:05 PM Resul ts for this QUALITATIVE EDT procedure are i n ([facility]) the res ults section. documented in this encounter Results (ABNORMAL) Urinalysis with reflex Culture (12/10/2016 10:00 AM EDT) [facility] Method Time Signature Glucose UA Negative Negative [facility] mg/dL [facility] Protein UA Negative Negative [facility] mg/dL [facility] Bilirubin UA Negative Negative [facility] mg/dL [facility] Comment: Clinical correlation required for positi ve Urine Bilirubin results as false positive may occur with some drugs and d rug related products. If a false positive is suspected a serum total bili pagan should be considered if clinically indicated. Urobilinogen UA Normal Normal mg/dL [facility] pH UA 9.0 (H) 5.0 - 8.0 [facility] Blood UA Negative Negative mg/dL [facility] Ketones UA Negative Negative mg/dL [facility] Nitrite UA Negative Negative [facility] Leukocytes UA Negative Negative [facility] Appearance UA Clear Clear [facility] Spec Kenly UA 1.009 1.002 - 1.030 [facility] Color UA Yellow Yellow [facility] RBC UA 1 0 - 4 /HPF [facility] WBC UA <1 0 - 5 /HPF [facility] Bacteria UA Rare (A) None /HPF [facility] Squam Epith UA <1 <=4 /HPF [facility] Culture Reflexed No [facility] Specimen (Source) Anatomical Collection Method Collection Time Re ceived Time Location / / Volume Laterality Urine specimen 12/10/2016 10:00 7 obtained by clean AM EDT 10:07 AM E DT catch procedure (specimen) Resulting Agency Comment Spec In Lab Shaila Case MD URINE ORDERABLES Performing Organization Address City/State/[place] [address] urine, qualitative (12/09/2016 4:05 PM EDT) P athologist Signature SG Urine 1.005 1.002 - [facility] 1.030 [facility] HCG Qual Negative [facility] Comment: If Specific Kenly is less than 1.010, a negative result is obtained, and is still suspect ed, a repeat on a first morning specimen is recommended. Specimen Anatomical Collection Method Collection Time Receive d Time (Source) Location / / Volume Laterality Urine specimen 12/09/2016 4:05 PM 017 4:38 (specimen) EDT PM EDT Resulting Agency Comment Spec In Lab Shaila Case MD URINE ORDERABLES Performing Organization Address City/[facility]/[place]IP [place] [address] documented in this encounter Visit Diagnoses Diagnosis Schizophrenia, unspecified type Schizophrenia Unspecified schizophrenia, unspecified c ondition documented in this encounter Admitting Diagnoses Diagnosis Schizophrenia Unspecified schizophrenia, unspecified c ondition documented in this encounter Administered Medications Inactive Administered Medications - up to 3 most recent administrations Medication Order MAR Action Action Date Dose Rate Site ARIPiprazole (ABILIFY) tablet 30 Given 12/09/2016 10:23 PM EDT 3 0 mg mg 30 mg, Oral, NIGHTLY, First dose on Tue12/09/16 at 2200, Until Discontinued, Routine gabapentin (NEURONTIN) capsule 100 mg Given 12/10/2016 8:24 AM EDT 100 mg 100 mg, Oral, DAILY, First dose on Tue12/10/16 at 0900, Until Discontinued, Routine levothyroxine (SYNTHROID) tablet 75 mcg Given 12/10/2016 5:11 AM EDT 75 mcg 75 mcg, Oral, EVERY MORNING, First dose on Tue12/09/16 at 1100, Until Discontinued, Routine Given 12/09/2016 11:00 AM EDT 75 mcg metFORMIN (GLUCOPHAGE) tablet 500 mg Given 12/10/2016 8:24 AM EDT 500 mg 500 mg, Oral, 2 TIMES DAILY WITH MEALS, First dose on Tue12/09/16 at 1100, Until Discontinued, Routine Given 12/09/2016 5:02 PM EDT 500 mg Given 12/09/2016 11:00 AM EDT 500 mg OLANZapine zydis (ZyPREXA) disintegrating Given 12/09/2016 1:27 PM EDT 5 mg tablet 5 mg 5 mg, Oral, 2 TIMES DAILY PRN, Starting on Tue12/09/16 at 1119, Until Tue12/10/16 at 1534, Agitation, only for acute agitation, Routine topiramate (TOPAMAX) tablet 100 mg Given 12/10/2016 8:24 AM EDT 100 mg 100 mg, Oral, DAILY, First dose on Tue12/09/16 at 1100, Until Discontinued, Routine Given 12/09/2016 11:00 AM EDT 100 mg documented in this encounter Active and Recently Administered Medications Times are shown in EDT. Scheduled Medication Order 12/08/2016 12/09/2016 12/10/2016 ARIPiprazole (ABILIFY) tablet 30 mg 3 (Given - Provider: Joseline Pretty RN) 30 mg, Oral, NIGHTLY, First dose on Tue12/09/16 at 2200, Until Discontinued, Routine gabapentin (NEURONTIN) capsule 100 mg 0824 (Given - Provider: Josué Hernandez RN) 100 mg, Oral, DAILY, First dose on Tue at 0900, Until Discontinued, Routine levothyroxine (SYNTHROID) tablet 75 mcg 1100 (Given - Provider: Josué Hernnadez RN) 0511 (Given - Provider: Shanon longoria RN) 75 mcg, Oral, EVERY MORNING, First dose on Tue12/09/16 at 1100, Until Discontinued, Routine metFORMIN (GLUCOPHAGE) tablet 500 mg 110 0 (Given - Provider: Josué Hernandez RN)1702 (Given - Provider: Linda Longo RN) 0824 (Given - Provider: Josué Hernandez RN) 500 mg, Oral, 2 TIMES DAILY WITH MEALS, First dose on Tue12/09/16 at 1100, Until Discontinued, Routine topiramate (TOPAMAX) tablet 100 mg 1100 (Given - Provider: Josué Hernandez RN) 0824 (Given - Provider: Josué Hernandez, RN) 100 mg, Oral, DAILY, First dose on Karla at 1100, Until Discontinued, Routine PRN Medication Order 12/08/2016 12/09/2016 12/10/2016 OLANZapine zydis (ZyPREXA) disintegrating tablet 5 mg 1327 (Given - Provider: Josué Hernandez, AKASH) 5 mg, Oral, 2 TIMES DAILY PRN, Starting Karla 12/09/16 at 1119, Until Tue12/10/16 at 1534, Agitation, only for acute agitation, Routine documented in this encounter Care Teams Mobility Developer Relationship Specialty Start Date End Date None PCP - General 12/09/16 02/27/18 None documented as of this encounter
--- OUTSIDE RECORDS SUMMARY | 2022-07-23 01:00 | XMS_ITS | Encounter Summary ---
:1980 Author Organization [facility] Address [address] [place] [address] Care Team Providers Name Role Phone Marie Dixon MD Primary Care Provider Reason for Visit Reason Onset Date Comments Other 01/15/2015 Encounter Details Date Type Department Care Team Description 01/15/2015 Telephone [facility] Plastic, Leo Lei, Other Reconstructive & Cosmetic MD [facility] Surgery - [facility] [address] [facility], [place] [address] [address] [place] [address] [phone] Social History Tobacco Use Types Packs/Day Years Used Date Smoking Tobacco: Former Cigarettes 1 5 Quit : 09/05/2014 Alcohol Use Standard Drinks/Week Comments Not Asked 0 (1 standard drink = 0.6 oz pure alcoho l) Sex Assigned at Date Recorded Not on file documented as of this encounter Miscellaneous Notes Telephone Encounter - Lidia Reed - 01/15/2015 0855 EDT Shaneka wants to discuss her options. Dr. Becerra notes are not done. documented in this encounter Plan of Treatment Not on filedocumented as of this encounter Visit Diagnoses Not on filedocumented in this encounter Care Teams Access Database Developer Relationship Specialty Start Date End Date Marie Dixon MD PCP - General 12/27/14 09/26/17 [address] [facility] [address] [place] [id number] documented as of this encounter
--- OUTSIDE RECORDS SUMMARY | 2022-07-23 01:00 | XMS_ITS | Encounter Summary ---
:[address] [facility] Address [address] [place] [address] Care Team Providers Name Role Phone Marie Dixon MD Primary Care Provider Reason for Visit Reason Comments Breast Implant Problem left breast deflated. Encounter Details Date Type Department Care Team Description 01/01/2015 Office Visit [facility] Sid Lei Breast asymmetry Plastic, Reconstructive Verna Baker FACS (Primary Dx) & Cosmetic Surgery - [address], [address] [facility] [address] [facility] [phone] [place] [address] (Work) [phone] Social History Tobacco Use Types Packs/Day Years Used Date Smoking Tobacco: Former Cigarettes 1 5 Quit : 09/05/2014 Alcohol Use Standard Drinks/Week Comments Not Asked 0 (1 standard drink = 0.6 oz pure alcoho l) Sex Assigned at Date Recorded Not on file documented as of this encounter Progress Notes Sid Lei MD - 04/11/2015 0814 EDT Reason for Visit /HPI: Shaneka was seen in consultation at the request of Dr. Monie Ponce for breast asymmetry. 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 She subsequently has had a deflated implant on the left. Shaneka reports that she gained weight since the time of her original surgery. She was seen by Dr. Saab in January 2014 who recommended left breast explantation and reduction of the right to obtain better symmetry or implant exchange and right mastopexy if the patient was to stop smoking. Patient Active Problems: There is no problem list on file for this patient. Past Medical History: Past Medical History Diagnosis Date ??? Thyroid disease ??? Schizophrenia Past Surgical History: Past Surgical History Procedure Laterality Date ??? Breast surgery 1998 Asymmetry - Dr. Gao ([facility]) Family History: Family History Problem Relation Age of Onset ??? Cardiac Disease Father Health Habits: History Substance Use Topics ??? Smoking status: Former Smoker -- 1.00 packs/day for 5 years Types: Cigarettes Quit date: 09/05/2014 ??? Smokeless tobacco: Not on file ??? Alcohol Use: Not on file Medications: Outpatient Encounter Prescriptions as of 01/01/2015 Medication Sig Dispense Refill ??? ARIPiprazole (ABILIFY) 20 mg tablet Take 20 mg by mouth daily. ??? benztropine (COGENTIN) 0.5 mg tablet Take 0.5 mg by mouth 2 times daily. ??? divalproex (DEPAKOTE) 500 mg delayed release tablet Take 500 mg by mouth at bedtime. ??? topiramate (TOPAMAX) 25 mg tablet Take 25 mg by mouth daily. No facility-administered encounter medications on file as of 01/01/2015. Allergies: No Known Allergies ROS: The patient denies neuro, endocrine, ENT, opthalmologic, pulmonary, cardiovascular, gastrointestinal, genitourinary, dermatologic, or musculoskeletal complaints other than those above. Vitals: Patient reports 5'3, 195 pounds Physical Exam: Well developed, well nourished female in no apparent distress. She has a sternal notch to nipple distance of 22 cm on the left and 24 cm on the right. She has grade 1 ptosis on the left and grade 2 ptosis on the right. Her base diameter is 12.5 cm. Her skin envelope is moderate on the right and tight on the left. She has no concerning masses or axillary lymphadenopathy. Assessment / Plan: 34 y.o. female with congenital breast asymmetry and previous surgical treatment. She now has a deflated implant and is here for surgical options. I discussed at length with Shaneka that her left breast has good shape and is appropriate for her body habitus. I explained that her right breast does not have good shape and even with re-augmentation of the left breast she would still have significant asymmetry as compared to the right despite similar volumes. I only offered her the option of left explantation and right reduction. She is acceptingof this and she will decide how she wants to proceed. I spent 60 minutes with this patient; 55 minutes was spent in [id number] counseling for the above diagnosis. Sid Lei MD 04/11/2015 18:57 documented in this encounter Plan of Treatment Not on filedocumented as of this encounter Visit Diagnoses Diagnosis Breast asymmetry - Primary Other specified disorders of breast documented in this encounter Care Teams Nuclear Weapons Specialist Relationship Specialty Start Date End Date Marie Dixon MD PCP - General 12/27/14 09/26/[address] [place] [phone] documented as of this encounter
--- OUTSIDE RECORDS SUMMARY | 2022-07-23 01:00 | XMS_ITS | Clinical Summary ---
:1980 Author Organization [facility] Address [address] [place] [address] Care Team Providers Name Role Phone KevenAdelina Tee FAY Primary Care Provider Allergies Active Allergy Reactions Severity Noted Date Comments Codeine Other (See Comments) 11/10/2015 Unable to recall reaction Medications Medication Sig Dispensed Refills Start Date End Date Status topiramate (TOPAMAX) 25 Take 25 mg by 0 Active mg tablet mouth daily. divalproex (DEPAKOTE) Take 2,000 mg by mouth at bedtime. 0 Active 500 mg delayed release tablet levothyroxine Take 75 mcg by 0 A ctive (SYNTHROID) 75 mcg mouth daily tablet metFORMIN (GLUCOPHAGE) Take 1,000 mg by mouth daily. 0 Active 500 mg tablet Surgical History Surgery Date Site/Laterality Comments BREAST SURGERY 1998 Asymmetry - Dr. Gao ([facility]) Medical History Medical History Date Comments Thyroid disease Schizophrenia (HCC) Family History Medical History Relation Comments Cardiac Disease Father Relation Status Comments Father Social History Tobacco Use Types Packs/Day Years Used Date Smoking Tobacco: Former Cigarettes 1 5 Quit : 09/05/2014 Alcohol Use Standard Drinks/Week Comments Not Asked 0 (1 standard drink = 0.6 oz pure alcoho l) Sex Assigned at Date Recorded Not on file Obstetrics History Last Filed Vital Signs Vital Sign Reading Time Taken Comments Blood Pressure - - Pulse - - Temperature - - Respiratory Rate - - Oxygen Saturation - - Inhaled Oxygen Concentration - - Weight 90.7 kg (200 lb) 11/10/2015 0934 EST Height 160 cm (5' 3) 11/10/2015 0934 EST Body Mass Index 35.43 11/10/2015 0934 EST Plan of Treatment Health Maintenance Due Date Last Done Comments Hepatitis C Screen 1980 COVID-19 Vaccine (#1) 03/04/1981 Insurance Payer Benefit Plan Subscriber ID Effective Phone Address Typ e / Group Dates MEDICAID ACO MEDICAID ACO [id number] 2019-Pres [phone] [address] Medicaid [place] [address] [place] [id number] Care Teams Early Childhood Educator Aide Relationship Specialty Start Date End Date Adelina Baca, ETHICS OFFICER PCP - General Family Medicine - Primary 03/30/22 [address] [place], [place] [phone]
--- OUTSIDE RECORDS SUMMARY | 2022-07-23 01:00 | XMS_ITS | Encounter Summary ---
:1980 Author Organization [facility] Address [address] [place] [address] Care Team Providers Name Role Phone Marie Dixon MD Primary Care Provider Reason for Visit Reason Comments Pre-op Exam Encounter Details Date Type Department Care Team Description 10/17/2015 Office Visit [facility] Sid Lei Breast asymmetry (Primary Dx); Plastic, Reconstructive Verna Baker FACS Ruptured left breast implant, sequela & Cosmetic Surgery - [address] [place], [place] [address] [facility], [address] [facility] [address] [place] [address] (Work) [phone] Social History Tobacco Use Types Packs/Day Years Used Date Smoking Tobacco: Former Cigarettes 1 5 Quit : 09/05/2014 Alcohol Use Standard Drinks/Week Comments Not Asked 0 (1 standard drink = 0.6 oz pure alcoho l) Sex Assigned at Date Recorded Not on file documented as of this encounter Progress Notes Sid Lei MD - 10/19/2015 1524 EST Shaneka returns to discuss options for treatment following the deflation of her left breast implant. When she was last here I offered her explanation of the left breast with a lift of the right breast. She is interested in proceeding. This and benefits were thoroughly discussed. Kym feels she has no further questions. Signed informed consent was obtained today. Next stop is the OR I spent 25 minutes with this patient; 20 minutes was spent in [id number] counseling for the above diagnosis. documented in this encounter Plan of Treatment Not on filedocumented as of this encounter Visit Diagnoses Diagnosis Breast asymmetry - Primary Other specified disorders of breast Ruptured left breast implant, sequela documented in this encounter Discontinued Medications Medication Sig Discontinue Reason Start Date End Date divalproex (DEPAKOTE) 250 Take 250 mg by Dose adjustment 10/17/2015 mg delayed release tablet mouth daily documented as of this encounter Care Teams Damage Assessor Relationship Specialty Start Date End Date Marie Dixon MD PCP - General 12/27/14 09/26/[address] [place] [phone] documented as of this encounter
--- OUTSIDE RECORDS SUMMARY | 2022-07-23 01:00 | XMS_ITS | Encounter Summary ---
:1980 Author Organization [facility] Address [address] [place] [address] Care Team Providers Name Role Phone Lidia Benson WIRE STRIPPING MACHINE OPERATOR Primary Care Provider Adelina Baca WIRE STRIPPING MACHINE OPERATOR Primary Care Provider Encounter Details Date Type Department Care Team Description 12/02/2019 Lab Requisition [facility] Unknown, Provider, Pathology & Laboratory [facility] [address] [facility] [place], [place] [address] Social History Tobacco Use Types Packs/Day Years [...] Name Priority Date/Time Associated Diagnosis Comme nts SEX HORMONE BINDING Routine 12/01/2019 9:25 EDT R esults for this GLOBULIN procedure are i n the results section. documented in this encounter Results SEX HORMONE BINDING GLOBULIN (12/01/2019 9:25 EDT) P athologist Signature Sex Hormone 11.4 See Note 12/03/2019 [facility] MEDICAL Bnd Glob nmol/L 10:17 EDT [facility] Comment: NOTE: ---- Reference Ranges for Females Pre-Menopausal: ?>10.8 nmol/L Post-Menopausal: ?? 23.2 - 159.1 nmol/L Reference ranges for Sex Hormone Binding Globulin in female patients <21 years old have not been established. Specimen Anatomical Collection Method Collection Time Receive d Time (Source) Location / / Volume Laterality Blood VENOUS BLOOD / 12/01/2019 9:25 12/02/2019 Unknown EDT 15:58 EDT Narrative [facility] - 12/03/2019 10:17 EDT The results of this assay can be falsely lowered due to the consumption of Biotin. Provider Unknown MD CHEMISTRY & BLOOD GAS ORDERA BLES Performing Organization Address City/State/[facility] Code Phon e Number [facility] [address] [place] [phone] SERVICES documented in this encounter Visit Diagnoses Not on filedocumented in this encounter Care Teams Skip Miner Relationship Specialty Start Date End Date Lidia Benson NP PCP - General 09/27/17 03/29/22 [address] [place], [place] [address] Adelina Baca NP PCP - General Family Medicine - Primary 03/30/22 [address] [place], [place] [phone] documented as of this encounter
--- OUTSIDE RECORDS SUMMARY | 2022-07-23 01:00 | XMS_ITS | Encounter Summary ---
:1980 Author Organization [facility] Address [address] [place] [address] Care Team Providers Name Role Phone Lidia Benson AUTOMATIC MACHINES SUPERVISOR Primary Care Provider Encounter Details Date Type Department Care Team Description 02/22/2019 Results Only [facility]- Lidia Adhikari NP [phone] [address] [place] [address] (Wo rk) Social History Tobacco Use Types [...] Name Priority Date/Time Associated Diagnosis Comme nts PAP TEST- RESULT Routine 02/22/2019 0:00 EDT Resu lts for this ONLY procedure are i n the results section. documented in this encounter Results PAP TEST- RESULT ONLY (02/22/2019 0:00 EDT) Component Value Ref Test Analysis Performed At [facility] Method Time Signature Pathology CYTOPATHOLOGY REPORT [facility] Report: CENTER Reports generated via electronic interface contain origina l data; LABORATORY however they are lacking the format of the original report. SERVICES Caution should be taken when reading/interpreting unformatte d reports. Name: ? EVELIN LANDON ? Accession #: ? [id number] ? : ? 1980 (Age: 38) ??F ?Collect Date: ? 02/22/2019 ? Location: ? [facility] ? Receive Date: ? 02/23/2019 ? Provider: LIDIA BENSON AUTOMATIC MACHINES SUPERVISOR Copy to: ? Final Report SPECIMEN ADEQUACY ? Satisfactory for Evaluation - transformation zone component present GENERAL CATEGORIZATION ? Negative for Intraepithelial Lesion or Malignancy ?? Other: Additional clinical information: Z0.00 Z12.4 Z11.51 Specimen/Source: ??Pap Test, Cervix, ThinPrep Imaging System with manual evaluation Document reviewed and electronically signed by: ? SARAH Dillard(ASCP) ? Report ??Date: 02/26/2019 12:06 HPV with Pap Test ? Date Ordered: ? 02/26/2019 ? Status: ?? Signed Out ?Date Complete: ? 02/27/2019 ? By: ??System I nterface ? Date Reported: ? 02/27/2019 ? Interpretation RESULT: Negative for HPV. No E6 or E7 mRNA is detected from HPV types 16,18,31,33,35, 39,45,51,52,56,58,59,66, and 68 by pig furnace operator mediated amplification. Comments Document reviewed and electronically signed by: ? System Interface ? Report date: 02/27/2019 By the signature above, the attending physician certifies th at he/she has personally conducted a gross and/or microscopic examin ation of the described specimens and rendered or confirmed the above diagnosis. End of Report Specimen (Source) Anatomical Location Collection Method / Collectio n Time Received Time / Laterality Volume 02/22/2019 02/23/2019 Lidia Benson NP PATHOLOGY ORDERABLES Performing Organization Address City/State/ZIP Code Phon e Number [facility] [address] [place] [id number] SERVICES documented in this encounter Visit Diagnoses Not on filedocumented in this encounter Care Teams Kettle Cook Relationship Specialty Start Date End Date Lidia Benson NP PCP - General 09/27/17 03/29/22 [address] [place], [place] [address] documented as of this encounter
--- OUTSIDE RECORDS SUMMARY | 2022-07-23 01:00 | XMS_ITS | Encounter Summary ---
:1980 Author Organization Health system Address [address] [place] [address] Care Team Providers Name Role Phone BeverlyLidia humphreys MIDDLE SCHOOL COUNSELOR Primary Care Provider Adelina Baca MIDDLE SCHOOL COUNSELOR Primary Care Provider Encounter Details Date Type Department Care Team Description 06/24/2020 Lab Requisition [facility] Center Outr Resulting Lab, Pathology & Laboratory Provider [facility] [address] [place] [address] Social History Tobacco Use Types Packs/Day Years [...] Name Priority Date/Time Associated Diagnosis Comme nts CORTISOL Routine 06/24/2020 11:54 EDT Results for this procedure are i n the results section . documented in this encounter Results CORTISOL (06/24/2020 11:54 EDT) athologist Signature Cortisol 6 See Note 06/24/2020 [facility] ug/dL 21:43 EDT CENTER LABORATORY SERVICES Comment: NOTE: Reference Ranges (from OCD IFU): Collected Before 10:00 AM: ??4 - 23 ug/d L Collected After 5:00 PM: ?2 - 14 ug/ dL The results of this assay can be falsely elevated due to the consumption of Biotin. Specimen Anatomical Collection Method Collection Time Receive d Time (Source) Location / / Volume Laterality Blood VENOUS BLOOD / 06/24/2020 11:54 0 Unknown EDT 21:00 EDT Provider Outr Resulting Lab CHEMISTRY & BLOOD GAS MARSHALL VILLARREAL Performing Organization Address City/State/ZIP Code Phon e Number [facility] [address] [place] [address] SERVICES documented in this encounter Visit Diagnoses Not on filedocumented in this encounter Care Teams Cloth Washer Back Tender Relationship Specialty Start Date End Date Lidia Benson NP PCP - General 09/27/17 03/29/22 [address] [place], [place] [address] Adelina Baca NP PCP - General Family Medicine - Primary 03/30/22 [address] [place], [place] [phone] documented as of this encounter
--- OUTSIDE RECORDS SUMMARY | 2022-07-23 01:00 | XMS_ITS | Encounter Summary ---
:1980 Author Organization [facility] Address [address] [place] [address] Care Team Providers Name Role Phone KelleySayrai CASE LINER Primary Care Provider Adelina Baca CASE LINER Primary Care Provider Encounter Details Date Type Department Care Team Description 05/02/2020 Lab Requisition [facility] Outr Resulting Lab, Pathology & Laboratory Provider [facility] [address] [place] [address] Social History Tobacco Use Types [...] Procedure Name Priority Date/Time Associated Comments Diagnosis CHLAMYDIA/N. Routine 05/02/2020 15:35 Results for this GONORRHOEAE AMPLIFIED EDT proced ure are in RNA the results section. documented in this encounter Results CHLAMYDIA/N. GONORRHOEAE AMPLIFIED RNA (05/02/2020 15:35 EDT) [facility] Method Time Signature Gonococcus Negative Negative 05/05/2020 [facility] Result 13:40 EDT [facility] LAB[facility] Chlamydia Negative Negative 05/05/2020 [facility] Result 13:40 [facility] LAB[facility] SERVICES Specimen Anatomical Collection Method Collection Time Receive d Time (Source) Location / / Volume Laterality Urine (Urine, 05/02/2020 15:35 05/04/2020 Initial Void) EDT 16:51 EDT Narrative [facility] - 05/05/2020 13:40 EDT A first catch urine specimen is acceptab le for detection of Gonorrhea and Chlamydia, but might detect up to 10% fewer infecti ons when compared with vaginal and endocervical swab samples. Provider Outr Resulting Lab MICROBIOLOGY - GENERAL ORD ERABLES Performing Organization Address City/State/ZIP Code Phon e Number [facility] [address] [place] [address] SERVICES documented in this encounter Visit Diagnoses Not on filedocumented in this encounter Care Teams Manufacturing Helper Relationship Specialty Start Date End Date Lidia Benson, NYA PCP - General 09/27/17 03/29/22 [address] [place], [place] [phone] Adelina Baca NP PCP - General Family Medicine - Primary 03/30/22 [address] [place], [place] [address] documented as of this encounter
--- OUTSIDE RECORDS SUMMARY | 2022-07-23 01:00 | XMS_ITS | Encounter Summary ---
:1980 Author Organization [facility] Address [address] [place] [address] Care Team Providers Name Role Phone Kelley Lidia RADIOLOGICAL DEFENSE OFFICER Primary Care Provider Adelina Baca RADIOLOGICAL DEFENSE OFFICER Primary Care Provider Encounter Details Date Type Department Care Team Description 01/07/2021 Lab Requisition [facility] Outr Resulting Lab, Pathology & Laboratory Provider [facility] [address] [place] [address] Social History Tobacco Use Types [...] Name Priority Date/Time Associated Diagnosis Comme nts T3 FREE Routine 01/07/2021 10:00 EDT Results for this procedure are i n the results section . documented in this encounter Results T3 FREE (01/07/2021 10:00 EDT) P athologist Signature T3, Free 3.0 2.8 - 5.3 01/07/2021 [facility] pg/mL 16:45 EDT CENTER LABORATORY SERVICES Specimen Anatomical Collection Method Collection Time Receive d Time (Source) Location / / Volume Laterality Blood VENOUS BLOOD / 01/07/2021 10:00 Unknown EDT 16:01 EDT Provider Outr Resulting Lab CHEMISTRY & BLOOD GAS MARSHALL VILLARREAL Performing Organization Address City/State/ZIP Code Phon e Number [facility] [address] [place] [address] SERVICES documented in this encounter Visit Diagnoses Not on filedocumented in this encounter Care Teams Escrow Clerk Relationship Specialty Start Date End Date Lidia Benson NP PCP - General 09/27/17 03/29/22 [address] [place], [place] [phone] Adelina Baca NP PCP - General Family Medicine - Primary 03/30/22 [address] [place], [place] [phone] documented as of this encounter
--- OUTSIDE RECORDS SUMMARY | 2022-07-23 01:00 | XMS_ITS | Encounter Summary ---
:1980 Author Organization [facility] Address [address] [place] [address] Care Team Providers Name Role Phone Kelley Lidia SAND WHEELER Primary Care Provider Adelina Baca SAND WHEELER Primary Care Provider Encounter Details Date Type Department Care Team Description 03/16/2022 Lab Requisition [facility] Outr Resulting Lab, Pathology & Laboratory Provider [facility] [address] [place] [address] Social History Tobacco Use Types [...] Priority Date/Time Associated Comments Diagnosis CHLAMYDIA/N. Routine 03/15/2022 15:15 Results for this GONORRHOEAE AMPLIFIED EDT proced ure are in RNA the results section. documented in this encounter Results CHLAMYDIA/N. GONORRHOEAE AMPLIFIED RNA (03/15/2022 15:15 EDT) [facility] Method Time Signature Gonococcus Negative Negative 03/17/2022 [facility] Result 14:54 EDT CENTER LAB[facility]ATORY SERVICES Chlamydia Negative Negative 03/17/2022 [facility] Result 14:54 T [facility]ENTER LAB[facility]ATORY SERVICES Specimen Anatomical Collection Method Collection Time Receive d Time (Source) Location / / Volume Laterality Urine (Urine, 03/15/2022 15:15 03/16/2022 Initial Void) EDT 18:49 EDT Narrative [facility] - 03/17/2022 14:54 EDT A first catch urine specimen is acceptab le for detection of Gonorrhea and Chlamydia, but might detect up to 10% fewer infecti ons when compared with vaginal and endocervical swab samples. Provider Outr Resulting Lab MICROBIOLOGY - GENERAL ORD ERABLES Performing Organization Address City/State/ZIP Code Phon e Number [facility] [address] [place] [address] SERVICES documented in this encounter Visit Diagnoses Not on filedocumented in this encounter Care Teams Transport Tech Relationship Specialty Start Date End Date Lidia Benson NP PCP - General 09/27/17 03/29/22 [address] [place], [place] [phone] Adelina Baca NP PCP - General Family Medicine - Primary 03/30/22 [address] [place], [place] [phone] documented as of this encounter
--- OUTSIDE RECORDS SUMMARY | 2022-07-23 01:00 | XMS_ITS | Encounter Summary ---
:1980 Author Organization [facility] Address [address] [place] [address] Care Team Providers Name Role Phone Kelley Lidia CENTRAL STERILE TECH Primary Care Provider Adelina Baca CENTRAL STERILE TECH Primary Care Provider Encounter Details Date Type Department Care Team Description 10/06/2021 Lab Requisition [facility] Outr Resulting Lab, Pathology & Laboratory Provider [facility] [address] [place] [address] Social History Tobacco Use Types [...] Name Priority Date/Time Associated Diagnosis Comme nts HOLD SST Today 10/05/2021 14:00 EST Results for this procedure are i n the results section . PROLACTIN Today 10/05/2021 14:00 EST Results for this procedure are i n the results section . LH Today 10/05/2021 14:00 EST Results for this procedure are i n the results section . FSH Today 10/05/2021 14:00 EST Results for this procedure are i n the results section . documented in this encounter Results HOLD SST (10/05/2021 14:00 EST) P athologist Signature Hold Hold 10/06/2021 [facility] 17:01 EST CENTER LABORATORY SERVICES Specimen Anatomical Collection Method Collection Time Receive d Time (Source) Location / / Volume Laterality Blood VENOUS BLOOD / 10/05/2021 14:00 2 Unknown EST 15:48 EST Provider Outr Resulting Lab LAB INFO SERVICE AND SUPPO RT & PHONE RESULT Performing Organization Address City/[facility] Code Phon e Number [facility] [address] [place] [address] SERVICES LH (10/05/2021 14:00 EST) athologist Signature Luteinizing 12.0 See Note 10/07/2021 [facility] Hormone mIU/mL 14:27 [facility] Comment: NOTE: Female Reference Ranges: Pre-Pubertal: ?<6.0 mIU/mL Menstruating: Follicular Phase(-12 to -4 days: ??1.9 - 12.5 mIU/mL Midcycle(-3 to +2 days): ?8 .7 - 76.3 mIU/mL Luteal Phase(+4 to +12 days): ? 0.5 - 16.9 mIU/mL Post Menopausal: 15.9 - 54.0 mIU/mL Specimen Anatomical Collection Method Collection Time Receive d Time (Source) Location / / Volume Laterality Blood VENOUS BLOOD / 10/05/2021 14:00 2 Unknown EST 15:47 EST Provider Outr Resulting Lab CHEMISTRY & BLOOD GAS MARSHALL VILLARREAL Performing Organization Address City/[facility] Code Phon e Number [facility] [address] [place] [address] SERVICES FSH (10/05/2021 14:00 EST) athologist Signature FSH 5.6 See Note 10/07/2021 [facility] mIU/mL 14:27 [facility] SERVICES Specimen Anatomical Collection Method Collection Time Receive d Time (Source) Location / / Volume Laterality Blood VENOUS BLOOD / 10/05/2021 14:00 2 Unknown EST 15:47 EST Narrative [facility] SERVICES - 10/07/2021 14:27 EST NOTE: Female FSH Reference Ranges (>= 13 Menst ruating): PHYSIOLOGICAL STATUS ? REFE RENCE RANGE ? ---- Follicular (-12 to -4 days): ?? 2.5 - 1 0.2 mIU/mL Midcycle (-3 to +2 days): ?3.4 - 33.4 mIU/mL Luteal (+4 to +12 days): ? 1.5 - 9.1 mIU/mL Postmenopausal: ? 23.0 - 116.3 mIU/mL Reference Ranges for female patients <13 years old have not been established. Provider Outr Resulting Lab CHEMISTRY & BLOOD GAS MARSHALL VILLARREAL Performing Organization Address City/State/ZIP Code Phon e Number [facility] [address] [place] [address] SERVICES PROLACTIN (10/05/2021 14:00 EST) athologist Signature Prolactin 4.8 See Table 10/07/2021 [facility] ng/mL 14:27 EST CENTER LAB[facility]ATORY SERVICES Comment: NOTE: Female Reference Ranges: PHYSIOLOGICAL STATUS ?EXPECTED RANGE ? Postmenopausal ?1.8 - 20.3 ng/mL ?9.7 - 208.5 ng/mL Non- ?2.8 - 29.2 ng/mL Reference Ranges for Prolactin in female patients <18 years old have not been established. Specimen Anatomical Collection Method Collection Time Receive d Time (Source) Location / / Volume Laterality Blood VENOUS BLOOD / 10/05/2021 14:00 2 Unknown EST 15:47 EST Provider Outr Resulting Lab CHEMISTRY & BLOOD GAS MARSHALL VILLARREAL Performing Organization Address City/State/ZIP Code Phon e Number [facility] [address] [place] [address] SERVICES documented in this encounter Visit Diagnoses Not on filedocumented in this encounter Care Teams Statistical Programmer Analyst Relationship Specialty Start Date End Date Lidia Benson NP PCP - General 09/27/17 03/29/22 [address] [place], [place] [phone] Adelina Baca NP PCP - General Family Medicine - Primary 03/30/22 [address] [place], [place] [phone] documented as of this encounter
--- OUTSIDE RECORDS SUMMARY | 2022-07-23 01:00 | XMS_ITS | Encounter Summary ---
:1980 Author Organization [facility] Address [address] [place] [address] Care Team Providers Name Role Phone Marie Dixon MD Primary Care Provider Reason for Visit Reason Onset Date Comments Other 01/07/[address] asymmetry sx Encounter Details Date Type Department Care Team Description 01/07/2015 Telephone [facility] Sid Lei ( questions about Plastic, Reconstructive & MD Samuel FACS breast asymmetry sx) Cosmetic Surgery - [address] [place], [place] [address] [facility], [address] [address] [place] [address] (Work) [phone] Social History Tobacco Use Types Packs/Day Years Used Date Smoking Tobacco: Former Cigarettes 1 5 Quit : 09/05/2014 Alcohol Use Standard Drinks/Week Comments Not Asked 0 (1 standard drink = 0.6 oz pure alcoho l) Sex Assigned at Date Recorded Not on file documented as of this encounter Miscellaneous Notes Telephone Encounter - Amina De La Garza RN - 01/10/2015 [address] Lei and returned her call and let her know that Dr. Lei states that he would beable to do what he offered her the last time she was here, not both breasts with implants. Telephone Encounter - Nan Martins - 01/07/2015 1427 EDT Patient wants to know if she can have both breasts implanted? If not she is leaning toward Lt breastimplant, RT breast lifted. documented in this encounter Plan of Treatment Not on filedocumented as of this encounter Visit Diagnoses Not on filedocumented in this encounter Care Teams Mandrel Cleaner Relationship Specialty Start Date End Date Marie Dixon MD PCP - General 12/27/14 09/26/[address] [place] [phone] documented as of this encounter
--- OUTSIDE RECORDS SUMMARY | 2022-07-23 01:00 | XMS_ITS | Encounter Summary ---
:1980 Author Organization [facility] Address [address] [place] [address] Care Team Providers Name Role Phone Lidia Benson SENIOR WINDOWS SYSTEMS ADMINISTRATOR Primary Care Provider Encounter Details Date Type Department Care Team Description 02/23/2019 Results Only Imaging [facility]- Unknown, REVA ProviderMD [phone] Social History Tobacco Use Types Packs/Day Years Used Date Smoking Tobacco: Former Cigarettes 1 5 Quit : 09/05/2014 Alcohol Use Standard Drinks/Week Comments Not Asked 0 (1 standard drink = 0.6 oz pure alcoho l) Sex Assigned at Date Recorded Not on file documented as of this encounter Plan of Treatment Pending Results Name Type Priority Associated Diagnoses Date/Ti me OUTSIDE CD - CT [facility] 2018 8:13 EDT OUTSIDE CD - CT NEURO Imaging 2018 8:13 EDT documented as of this encounter Visit Diagnoses Not on filedocumented in this encounter Care Teams Community Relations Police Lieutenant Relationship Specialty Start Date End Date Lidia Benson NP PCP - General 09/27/17 03/29/[address] [place] [address] documented as of this encounter
--- OUTSIDE RECORDS SUMMARY | 2022-07-23 01:00 | XMS_ITS | Encounter Summary ---
:1980 Author Organization [facility] Address [address] [place] [address] Care Team Providers Name Role Phone Kelley Lidia CONCRETE BLOCK MASON Primary Care Provider Adelina Baca CONCRETE BLOCK MASON Primary Care Provider Encounter Details Date Type Department Care Team Description 02/12/2020 Lab Requisition [facility] Center Outr Resulting Lab, Pathology & Laboratory Provider [facility] [address] [place] [address] Social History Tobacco Use Types [...] Priority Date/Time Associated Comments Diagnosis CHLAMYDIA/N. Routine 02/12/2020 14:45 Results for this GONORRHOEAE AMPLIFIED EDT proced ure are in RNA the results section. documented in this encounter Results CHLAMYDIA/N. GONORRHOEAE AMPLIFIED RNA (02/12/2020 14:45 EDT) [facility] Method Time Signature Gonococcus Negative Negative 02/13/2020 [facility] Result 16:10 EDT [facility]ENTER LAB[facility] Chlamydia Negative Negative 02/13/2020 [facility] Result 16:10 EDT [facility] Specimen Anatomical Collection Method Collection Time Receive d Time (Source) Location / / Volume Laterality Swab ENTIRE WALL OF 02/12/2020 14:45 0 CERVIX / Unknown EDT 20:57 EDT Provider Outr Resulting Lab MICROBIOLOGY - GENERAL ORD ERABLES Performing Organization Address City/State/ZIP Code Phon e Number [facility] CENTER LABORATORY [address] [place] [address] SERVICES documented in this encounter Visit Diagnoses Not on filedocumented in this encounter Care Teams Cash Applications Manager Relationship Specialty Start Date End Date Lidia Benson NP PCP - General 09/27/17 03/29/22 [address] [place], [place] [phone] Adelina Baca NP PCP - General Family Medicine - Primary 03/30/22 [address] [place], [place] [phone] documented as of this encounter
--- OUTSIDE RECORDS SUMMARY | 2022-07-23 01:00 | XMS_ITS | Encounter Summary ---
:1980 Author Organization [facility] Address [address] [place] [address] Care Team Providers Name Role Phone Kelley Lidia GOLF MANAGER Primary Care Provider Adelina Baca GOLF MANAGER Primary Care Provider Encounter Details Date Type Department Care Team Description 01/07/2021 Lab Requisition [facility] Center Outr Resulting Lab, Pathology & Laboratory Provider [facility] [address] [place] [address] Social History Tobacco Use Types [...] Name Priority Date/Time Associated Diagnosis Comme nts PROLACTIN Routine 01/07/2021 10:00 EDT Results for this procedure are i n the results section . LH Routine 01/07/2021 10:00 EDT Results for this procedure are i n the results section . FSH Routine 01/07/2021 10:00 EDT Results for this procedure are i n the results section . CORTISOL Routine 01/07/2021 10:00 EDT Results for this procedure are i n the results section . documented in this encounter Results LH (01/07/2021 10:00 EDT) P athologist Signature Luteinizing 10.9 See Note 01/07/2021 [facility] Hormone mIU/mL 17:45 EDT [facility] Comment: NOTE: Female Reference [...] Laterality Blood VENOUS BLOOD / 01/07/2021 10:00 1 Unknown EDT 16:01 EDT Provider Outr Resulting Lab CHEMISTRY & BLOOD GAS MARSHALL VILLARREAL Performing Organization Address City/State/ZIP Code Phon e Number [facility] [address] [place] [phone] SERVICES FSH (01/07/2021 10:00 EDT) P athologist Signature FSH 4.9 See Note 01/07/2021 [facility] mIU/mL 17:44 EDT [facility]ENTER [facility] Specimen Anatomical Collection Method Collection Time Receive d Time (Source) Location / / Volume Laterality Blood VENOUS BLOOD / 01/07/2021 10:00 1 Unknown EDT 16:01 EDT Narrative [facility] SERVICES - 01/07/2021 17:44 EDT NOTE: Female FSH Reference Ranges (>= 13 [...] BLOOD GAS MARSHALL VILLARREAL Performing Organization Address [facility] Code Phon e Number [facility] [address] [place] [address] SERVICES PROLACTIN (01/07/2021 10:00 EDT) athologist Signature Prolactin 7.5 See Table 01/07/2021 [facility] ng/mL 17:45 EDT [facility] Comment: NOTE: Female Reference Ranges: PHYSIOLOGICAL STATUS ?EXPECTED RANGE ? Postmenopausal ?1.8 - 20.3 ng/mL ?9.7 - 208.5 ng/mL Non- ?2.8 - 29.2 ng/mL Reference Ranges for Prolactin in female patients <18 years old have not been established. Specimen Anatomical Collection Method Collection Time Receive d Time (Source) Location / / Volume Laterality Blood VENOUS BLOOD / 01/07/2021 10:00 1 Unknown EDT 16:01 EDT Provider Outr Resulting Lab CHEMISTRY & BLOOD GAS JEROMYSyed PHIL Performing Organization Address [facility] Phon e Number [facility] [address] [place] [address] SERVICES CORTISOL (01/07/2021 10:00 EDT) P athologist Signature Cortisol 10 See Note 01/07/2021 [facility] ug/dL 16:52 EDT [facility] Comment: NOTE: Reference [...] Laterality Blood VENOUS BLOOD / 01/07/2021 10:00 1 Unknown EDT 16:01 EDT Provider Outr Resulting Lab CHEMISTRY & BLOOD GAS MARSHALL VILLARREAL [facility] Organization Address City/State/ZIP Code Phon e Number [facility] [address] [place] [address] SERVICES documented in this encounter Visit Diagnoses Not on filedocumented in this encounter Care Teams Assistant Analyst Relationship Specialty Start Date End Date Lidia Benson NP PCP - General 09/27/17 03/29/22 [address] [place], [place] [phone] Adelina Baca NP PCP - General Family Medicine - Primary 03/30/22 [address] [place], [place] [id number] documented as of this encounter
--- OUTSIDE RECORDS SUMMARY | 2022-07-23 01:00 | XMS_ITS | Encounter Summary ---
:1980 Author Organization [facility] Address [address] [place] [address] Care Team Providers Name Role Phone BeverlyxenialulúLidai NYA Primary Care Provider Reason for Referral Surgery (Routine) - Closed Specialty Diagnoses / Procedures Referred By Contact Refer red To Contact Plastic Surgery Diagnoses Ruptured left breast implant, sequela Breast asymmetry Sid Lei, Sid Lei, Procedures MA REDUCTION OF LARGE BREAST MA REMOVAL OF IMPLANT MATERIAL MD SARABJIT SWAIN FACS [address] [place] [address] [place] [phone] Fax: Referral ID Status Reason Start Date Expiration Date Visits V isits Requested Authorized [id number] Closed Specialty 11/06/2017 1 0 Services Required Question Answer Reason for Request: left implant remval, right b reast reduction for matching Scheduled Surgery Date: 11/06/2017 Laterality: Bilateral Location of Procedure: Main [facility]/ Outpt Anesthesia: General Estimated Length of Procedure: 4h CPT Code: 27033, 1933 Reason for Visit Reason Comments Follow-up Implant on left side - discu ss removal Encounter Details Date Type Department Care Team Description 10/19/2017 Office Visit [facility] Sid Lei Breast asymmetry (Primary Dx); Plastic, Reconstructive Verna Baker FACS Ruptured left breast implant, sequela & Cosmetic Surgery - [address] [place], [place] [address] [facility], [address] [address] [place] [address] (Work) [phone] Social History Tobacco Use Types Packs/Day Years Used Date Smoking Tobacco: Former Cigarettes 1 5 Quit : 09/05/2014 Alcohol Use Standard Drinks/Week Comments Not Asked 0 (1 standard drink = 0.6 oz pure alcoho l) Sex Assigned at Date Recorded Not on file documented as of this encounter Discharge Disposition Disposition Code Departure Means Destination Auto Discharge documented in this encounter Progress Notes Sid Lei MD - 10/19/2017 1015 EST Shaneka returns. She has a deflated left saline implant. This was placed for congential breast asymmetry. This was covered by insurance. She continues to have a deflated implant which is uncomfortable. Her interval medical and surgical history were reviewed and have not changed significantly. Her physical findings are unchanged. We discussed the previous surgical plan of removing the implant and reducing the opposite breast to match which would be a permanent solution to her asymmetry. Her insurance company has previously refused to cover this. We will resubmit and hope that logic prevails. I spent 35 minutes with this patient; 30 minutes was spent in counseling and coordination of care asdescribed in the progress note. documented in this encounter Plan of Treatment Scheduled Referrals Name Type Priority Associated Diagnoses Order S chedule AMB CONS/FOLLOW UP Outpatient Referral Routine Ruptured left b reast Ordered: SURGERY SCHED ORD implant, seque la 11/06/2017 Breast asymmetry documented as of this encounter Visit Diagnoses Diagnosis Breast asymmetry - Primary Other specified disorders of breast Ruptured left breast implant, sequela documented in this encounter Discontinued Medications Medication Sig Discontinue Reason Start Date End Date ARIPiprazole (ABILIFY) 20 mg Take 20 mg by Patient Stopped 10/19/2017 tablet mouth daily. Taking benztropine (COGENTIN) 0.5 mg Take 0.5 mg by Patient Stopped 10/19/2017 tablet mouth 2 times Taking daily. MEDROXYPROGESTERONE ACETATE Take by mouth Patient Stopped 10/19/2017 (PROVERA ORAL) Every other Taking month documented as of this encounter Care Teams Can Closing Machine Tender Relationship Specialty Start Date End Date Lidia Benson NP PCP - General 09/27/17 03/29/22 [address] [place] [address] documented as of this encounter
--- OUTSIDE RECORDS SUMMARY | 2022-07-23 01:00 | XMS_ITS | Encounter Summary ---
:1980 Author Organization [facility] Address [address] [place] [address] Care Team Providers Name Role Phone Lidia Benson DATABASE SECURITY ADMINISTRATOR Primary Care Provider Adelina Baca DATABASE SECURITY ADMINISTRATOR Primary Care Provider Encounter Details Date Type Department Care Team Description 11/08/2019 Lab Requisition [facility] Unknown, Provider, Pathology & Laboratory [facility] [address] [facility] [place], [place] [id number] Social History Tobacco Use Types Packs/Day Years [...] Associated Diagnosis Comme nts HOLD SST Today 11/08/2019 12:40 Results for this EST procedure are i n the results section. SEX HORMONE BINDING Today 11/08/2019 12:40 Resu lts for this GLOBULIN EST procedure are i n the results section. DHEA SULFATE Today 11/08/2019 12:40 Results for this EST procedure are i n the results section. documented in this encounter Results HOLD SST (11/08/2019 12:40 EST) P athologist Signature Hold Hold 11/08/2019 [facility] 22:01 EST [facility] Specimen Anatomical Collection Method Collection Time Receive d Time (Source) Location / / Volume Laterality Blood VENOUS BLOOD / 11/08/2019 12:40 0 Unknown EST 20:59 EST Provider Unknown LAB INFO SERVICE AND SUPPORT & PHONE RESULT Performing Organization Address City/[facility]/ZIP Code Phon e Number [facility] [address] [place] [phone] SERVICES SEX HORMONE BINDING GLOBULIN (11/08/2019 12:40 EST) athologist Signature Sex Hormone 8.9 See Note 11/09/2019 [facility] Bnd Glob nmol/L 10:09 EST [facility] Comment: NOTE: ---- Reference Ranges for Females Pre-Menopausal: ?>10.8 nmol/L Post-Menopausal: ?? 23.2 - 159.1 nmol/L Reference ranges for Sex Hormone Binding Globulin in female patients <21 years old have not been established. Specimen Anatomical Collection Method Collection Time Receive d Time (Source) Location / / Volume Laterality Blood VENOUS BLOOD / 11/08/2019 12:40 0 Unknown EST 20:59 EST Narrative [facility] - 11/09/2019 10:09 EST The results of this assay can be falsely lowered due to the consumption of Biotin. Provider Unknown CHEMISTRY & BLOOD GAS ORDERA BLES Performing Organization Address [facility]/ZIP Code Phon e Number [facility] [address] [place] [phone] SERVICES DHEA SULFATE (11/08/2019 12:40 EST) athologist Signature DHEA Sulfate 186 75 [phone] 410 11/09/2019 [facility] ug/dL 8:46 EST [facility] Specimen Anatomical Collection Method Collection Time Receive d Time (Source) Location / / Volume Laterality Blood VENOUS BLOOD / 11/08/2019 12:40 0 Unknown EST 20:59 EST Provider Unknown CHEMISTRY & BLOOD GAS ORDERA BLES Performing Organization Address City/[facility]/ZIP Code Phon e Number [facility] [address] [place] [address] SERVICES documented in this encounter Visit Diagnoses Not on filedocumented in this encounter Care Teams Clinching Machine Operator Relationship Specialty Start Date End Date Lidia Benson NP PCP - General 09/27/17 03/29/[address] [facility] [place] [address] Adelina Baca, DATABASE SECURITY ADMINISTRATOR PCP - General Family Medicine - Primary 03/30/22 [address] [place] [address] documented as of this encounter
--- OUTSIDE RECORDS SUMMARY | 2022-07-23 01:01 | XMS_ITS | Encounter Summary ---
:[address] [facility] Address [address] [place] [address] Care Team Providers Name Role Phone Unavailable Primary Care Provider Unavailable Encounter Details Date Type Department Care Team Description 07/30/2009 Orders Only [facility] Zenaida Ponce NP Laboratory Services - [address] [facility] [address] [place], [place] [address] [facility] [address] [place] [address] [phone] Social History Tobacco Use Types Packs/Day Years Used Date Smoking Tobacco: Never Assessed Sex Assigned at Date Recorded Not on file documented as of this encounter Plan of Treatment Not on filedocumented as of this encounter Procedures Procedure Name Priority Date/Time Associated Comments Diagnosis HPV DETECTION, HIGH Routine 07/30/2009 7:32 Resul ts for this RISK TYPES EST procedure are i n the results section. CYTOPATHOLOGY Routine 07/30/2009 0:00 Results for this EST procedure are i n the results section. documented in this encounter Results HUMAN PAPILLOMA VIRUS DNA TEST (07/30/2009 7:32 EST) [facility] Method Time Signature Specimen Cervix, ALCOCER Description ThinPrep [facility] vial Result Negative for ALCOCER HPV types [facility] 16, 18, 31, 33, 35, 39, 45, 51, 52, 56, 58, 59, and 68. Report Status Final ALCOCER 08/13/2009 [facility] Specimen Anatomical Collection Method Collection Time Receive d Time (Source) Location / / Volume Laterality 07/30/2009 7:32 08/12/2009 7 :32 EST EST Violetta Ponce NP MICROBIOLOGY - GENERAL ORDER MICHEL Performing Organization Address City/State/ZIP Code Phon e Number [facility] [address] [place] [address] SERVICES [facility] [address] [place] [address] CYTOPATHOLOGY (07/30/2009 0:00 EST) Component Value Ref Test Analysis Performed At [facility] gist Range Method Time Signature Pathology CYTOPATHOLOGY REPORT ? [facility] Report: ? [facility] Reports generated via electr InstantQuest interface contain original data; ? however they are lacking the format of the original report. ? Caution should be taken when reading/interpreting unformatted reports. ? Name: ? EVELIN LANDON ? Accession #: ? [id number] ? : ? 1980 (Age: 28) ??F ?Collect Date: ? 07/30/2009 ? Location: ? [facility] ? Receive Date: ? 08/05/2009 ? Provider: ?VIOLETTA W BESCH [employer]T MAKER ? Copy to: ? Specimen/Source: ? Pap Test, Cervix/Endocervix, ThinPrep Imaging System ? with manual evaluation ? Last Menstrual Period: ? O X 2 years ? Other: ? HPVDX - HPV testing requeste d regardless of diagnosis on current ThinPrep Pap ?? test. ? SPECIMEN ADEQUACY ? Satisfactory for Eval uation ? - transformation zone compon ent present ? GENERAL CATEGORIZATION ? Epithelial Cell Abnor mality ? INTERPRETATION ? Squamous Cell Abnorma lity - Atypical squamous cells, undetermined ? significance (ASC-US). ? EDUCATIONAL NOTES/RECOMMENDA TIONS ? [facility] recommends follo wing the 2006 Consensus Guidelines for the Management of Women with Abnormal Cervi elizabeth Cancer Screening Tests (JLGTD, ? 2007;11(4):201-222). ??Conse nsus guidelines are available online at ? www.ASCCP.org. ? Document reviewed and electr onically signed by: ? Brian Sid Edis , MD ? Report Date: ??12/07/ 2009 10:25 ? End of Report ? Specimen (Source) Anatomical Location Collection Method / Collectio n Time Received Time / Laterality Volume 07/30/2009 08/05/2009 Violetta Ponce [employer] MAKER PATHOLOGY ORDERABLES Performing Organization Address City/State/ZIP Code Phon e Number [facility] [address] [place] [address] SERVICES [facility] [address] [place] [address] documented in this encounter Visit Diagnoses Not on filedocumented in this encounter
--- OUTSIDE RECORDS SUMMARY | 2022-07-23 01:01 | XMS_ITS | Encounter Summary ---
:1980 Author Organization [facility] Address [address] [place] [address] Care Team Providers Name Role Phone Unknown, Provider Primary Care Provider Encounter Details Date Type Department Care Team Description 09/08/2011 Results Only [facility]- Sariah Alves, DO [phone] [facility] [facility] [place] [place], [place] [phone] (Wo rk) Social History Tobacco Use Types Packs/Day Years Used Date Smoking Tobacco: Never Assessed Sex Assigned at Date Recorded Not on file documented as of this encounter Plan of Treatment Not on filedocumented as of this encounter Procedures Procedure Name Priority Date/Time Associated Diagnosis Comme [facility] SURGICAL PATHOLOGY Routine 09/08/2011 0:00 EST Re sults for this procedure are i n the results section. documented in this encounter Results SURGICAL PATHOLOGY (09/08/2011 0:00 EST) Component Value Ref Test Analysis Performed At [facility] Method Time Signature Pathology SURGICAL PATHOLOGY REPORT TAM BARTH Report: Reports generated via electronic interface contain loc l data; [facility] however they are lacking the format of the original report. Caution should be taken when reading/interpreting unformatte d reports. Name: ? EVELIN LANDON ? Accession #: ? [id number] ? : ? 1980 (Age: 31) ??F ? Collect Date: ? 09/08/2011 ? Location: ? [facility] ? Receive Date: ? 09/08/2011 ? Provider: SARIAH TRUJILLO DO Copy to: LORY JOHNS RESEARCH STUDY ASSISTANT ? Final Pathologic Diagnosis: ? Pilonidal cyst, resection: - Pilonidal cyst with associated acute and chronic inflammat ion. Document reviewed and electronically signed by: CLAUDE WEST MD Report ??Date: 09/10/2011 17:31 By the signature above, the attending physician certifies at he/she has personally conducted a gross and/or microscopic examin ation of the described specimens and rendered or confirmed the above diagnosis. Specimen(s) Received: ? Pilonidal cyst Clinical History: ? Pilonidal cyst Gross Description: ? Received in formalin labelled Shaneka Landon and pilonidal cyst is a 5.0 x 1.2 cm, unoriented, el liptical excision of stokes skin excised to a depth of 1.7 cm. ??Centrally along th e entire length of the skin is a 0.2 cm in width by 0.3 cm in maximum depth, depressed, line ar crease and, within this crease near one end, there is a 0.1 cm in diameter d efect into the underlying soft tissue. The subcutaneous tissue is t an-yellow, indurated, and partially fragmented with a dusky cavitary area presen t at the partially fragmented region at the surface. Also present in the specimen container is an ad ditional, 3.5 x 1.2 x 0.7 cm, irregular fragment of indura jenna, stokes-yellow, fibrofatty tissue. ??The margins of both pieces of tissue are inked black. ??Upon sectioni ng the larger piece of tissue, the cut surface is composed of yellow-wh ite and stokes-brown, indurated, fibrofatty tissue with a cystic cavity extending through the subcutaneous tissue, predominantly within the fragmented region. ?? The cut surface of the separate fragment is compose d of yellow and white, fibrofatty, indurated tissue with no discrete cavitary regions identified. ??Representa tive sections are submitted as follows: BLOCK MENESES A1 ?Section of specimen with skin at fragmented deep tissue A2 ?Additional sections of specimen with skin with indwelling cystic cavitary area A3 ?Microarray Operations Vice President sections of separate fragmen ts of tissue (Jeanette Decker)/[facility] End of Report Specimen (Source) Anatomical Collection Method Collection Time Re ceived Time Location / / Volume Laterality 09/08/2011 09/08/2011 16:1 3 EST Sariah Trujillo DO PATHOLOGY ORDERABLES Performing Organization Address City/State/ZIP Code Phon e Number [facility] [address] [place] [address] SERVICES [facility] [address] [place] [address] documented in this encounter Visit Diagnoses Not on filedocumented in this encounter Care Teams Team Sports Sales Associate Relationship Specialty Start Date End Date Unknown, Provider, PCP - General 09/08/09 09/08/11 documented as of this encounter
--- OUTSIDE RECORDS SUMMARY | 2022-07-23 01:01 | XMS_ITS ---
:1980 Author Care Team Providers Name Role Phone DR. FARIHA TINSLEY Primary Care Provider [phone] DR. FARIHA TINSLEY Referring Provider [phone] Allergies Code Code System Name Reaction Severity Status Onset 2670 RxNorm Codeine ? ? Active ? 04822 RxNorm Gabapentin ? ? Active ? Medications Name Status Start Date Stop Date ? ? Abilify 30 mg tablet Active ? Not availab le Take 1 tablet every day by oral route. BD Ultra-Fine Millie Pen Needle 32 gauge x Active ? Not available USE FOUR TIMES A DAY WITH BYDUREON AND HUMALOG PENS Blood Glucose Test strips Active ? Not av ailable One Touch Ultra 2 test strips- Test 3 times daily Bydureon 2 mg/0.65 mL subcutaneous pen injector Active ? Not available INJECT 2 MG BY SUBCUTANEOUS ROUTE EVERY 7 DAYS IN THE ABDOMEN, THIGHS, OR OUTER AREA OF UPPER ARM ROTATING INJECTION SITES Depakote 500 mg tablet,delayed release Active ? Not available Take 4 tablets every day by oral route. Dexcom G6 Spinning Doffer Completed ? 12/18/2019 Continious glucose monitoring Dexcom G6 Sensor Completed ? 12/18/2019 Continious glucose monitoring Dexcom G6 Transmitter Completed ? 12/18/2019 Continious glucose monitoring. gabapentin 100 mg capsule Completed ? 2019 Take 1 capsule 3 times a day by oral route. gabapentin 300 mg capsule Active ? Not av ailable Take 1 capsule every day by oral route. glucose 4 gram chewable tablet Active ? N ot available Take two to four tablets by mouth if low sugar. Humalog KwikPen U-200 Insulin 200 unit/mL (3 mL) subcutaneous Ac tive ? Not available INJECT 120 UNITS SUBCUTANEOUSLY THREE TIMES A DAY BEFORE MEALS Humulin R U-500 (Conc) Insulin Kwikpen 500 unit/mL (3 mL) subcutaneous Completed ? 10/16/2019 Inject 15 units 3 times a day by subcutaneous route before meals for 30 days. ibuprofen 200 mg capsule Completed ? 020 Take 3 capsules every 4-6 hours by oral route as needed. Jardiance 25 mg tablet Completed ? 0 Take 1 tablet every day by oral route. lancets Active ? Not available For the OneTouch- Test 3 times daily Levemir FlexTouch U-100 Insulin 100 unit/mL (3 mL) subcutaneous pen Active ? Not available Inject 170 units every day by subcutaneous route at bedtime for 30 days. levothyroxine 25 mcg tablet Active ? Not available Take 1 tablet every day by oral route. Lyrica 150 mg capsule Active ? Not availa ble Take 1 capsule twice a day by oral route. minoxidil 2 % topical solution Completed ? 1 10/27/2019 APPLY 1 MILLILITER BY TOPICAL ROUTE 2 T IMES PER DAY , EVERY DAY, DIRECTLY ONTO THE SCALP IN THE HAIR LOSS AREA Novolog Flexpen U-100 Insulin aspart 100 unit/mL (3 mL) subc utaneous Completed ? 07/14/2020 Inject 85 units about FIVE Minutes befo re eaing meals one to three times daily. Rybelsus 3 mg tablet Active ? Not availab le Take 1 tablet every day by oral route for 30 days. Topamax 25 mg tablet Active ? Not availab le Take 1 tablet every day by oral route. Tresiba FlexTouch U-200 insulin 200 unit/mL (3 mL) subcutaneous pen Completed ? 08/26/2020 Inject 100 units every day by subcutaneous route at bedtime for 30 days. triamcinolone acetonide 0.1 % topical cream Completed ? 12/18/2019 APPLY A THIN LAYER TO THE AFFECTED AREA(S) BY TOPICAL ROUTE 2 T IMES PER DAY Xenical 120 mg capsule Completed ? 1 Take 1 capsule 3 times a day by oral route. Notes: [facility] 3-day vaginal cream (Clotri mazole) PV q hs for 3 nights Problems Name Status Onset Date Source ? Type II Diabetes Mellitus Uncontrolled Active 0 ? Female Hirsutism Active 10/10/2019 ? Female Pattern Alopecia Active 06/25/2020 ? 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 Hypothyroidism Active ? ? Diabetes Mellitus Active ? ? Obesity Active ? ? Schizoaffective Schizophrenia Active ? ? Restless Legs Active ? ? Cirrhosis - Non-alcoholic Active ? ? Breasts Asymmetrical Active ? ? Amenorrhea Active ? ? Neuropathic Pain Active ? ? Disturbance in Sleep Behavior Active ? ? Chronic Diarrhea Active ? ? Urinary Loss Active ? ? Genetic Disorder Carrier Active ? ? Elevated Liver Enzymes Level Active ? ? Smoking Cessation Therapy Active ? ? Procedures None recorded. Results Lab Results Date Name Specimen Result Interpretation Description Value Range Status Address ? 06/25/2020 Glucose, Blood ? Blood 289 ? ? [facility] - Fingerstick, capillary Glucose: mg/dl Specialty: [address] Blood [facility] 11/08/2019 BMP, Serum or ? No observation ? ? ? [facility] Plasma recorded. [facility]: [address] [place] [address], [facility] 11/08/2019 Dhea-sulfate, ? No observation ? ? ? [facility] Serum recorded. [facility]: [address] [place] [address], [facility] 11/08/2019 Shbg (Sex ? No observation ? ? ? [facility] Hormone-binding recorded. [place] [facility]), [facility]: [address] [place] [address], [facility] 11/08/2019 Testosterone, ? No observation ? ? ? [facility] Free + Total, recorded. [facility]: [address] [place] [address], [facility] 10/10/2019 Glucose, Blood ? Blood 328 ? ? [facility] - Fingerstick, capillary Glucose: mg/dl Specialty: [address] Blood [facility] Past Encounters 10/26/2021 Type II Diabetes Mellitus Uncontrolled; Acquired Hypothyroidism; Body Mass Index 30+ - Obesity; Female Pattern Alopecia; Secondary Amenorrhea; Mental Health Problem Corby Cochran MD-FACE: [address] [place] [address], Ph. 09/28/2021 Type II Diabetes Mellitus Uncontrolled; Acquired Hypothyroidism; Body Mass Index 30+ - Obesity; Female Pattern Alopecia; Secondary Amenorrhea; Mental Health Problem Corby Cochran MD-FACE: [address] [place] [address], Ph. 07/20/2021 Type II Diabetes Mellitus Uncontrolled; Acquired Hypothyroidism; Body Mass Index 30+ - Obesity; Female Pattern Alopecia; Secondary Amenorrhea; Mental Health Problem Corby Cochran MD-FACE: [address] [place] [address], Ph. 04/20/2021 Type II Diabetes Mellitus Uncontrolled; Acquired Hypothyroidism; Body Mass Index 30+ - Obesity; Female Pattern Alopecia; Secondary Amenorrhea; Mental Health Problem Corby Cochran MD-FACE: [address] [facility], [place] [address], Ph. Social History Tobacco Smoking Status Former Smoker Notes: Former 1 PP a week. Vaccine List Vaccine Type COVID-19 (SARS-COV-2) vaccine, unspecifi ed 01/10/2021 Plan of Care Patient Goals A1c 8% BG in 100s Avoid Moderate and Severe Hypoglcyemia A1c 8% BG in 100s Avoid Moderate and Severe Hypoglcyemia A1c 8% BG in 100s Avoid Moderate and Severe Hypoglcyemia A1c 8% BG in 100s Avoid Moderate and Severe Hypoglcyemia Patient Instructions A) ---Should SEE GYENCOLOGIST due to on e very heavy Bleed B) ----Should see PCP or Podiatirst for Feet Peeling Skin C)-----Should Have EYE EXAM by EYE KIP ABDALLA as part of Diabetic care GO FOR LABS TWO WEEKS BEFORE NEXT VISIT February 2022 CARE OF YOUR DIABETES: Healthy Eating Habits CONTINUE EATING BE TTER. -- Limited Carbohydrate (bread, pasta, p otato, rice , also ice cream, cake, other treats) --- No added salt Drink at least One glass of water befor e each meal Exercise ---- Move, try to do a little walking, o r housework or any moving active TRY To Move to Music Try Exercise Video on ReplenishU ---- Lift, Light 1 to 3# upper body, sta irs. other -----Stretch -- whole body ORAL AGENTS: ---- None NOn insulin INsulin INjectable (GLP1 Med ications) ----- Bydureon 2 mg inject once every we ek will try to change to OZEMPIC 0.25 mg weekly or Trulicity 0.75 either one can be increased. both are b barak for weight loss then Budureon INsulin -- Continue Humalog two (2) shots of 60 units before meals if BGs in 100s three (3) shots of 60 before meal if BG 200s four (4) shots of 60 units before meal if BGs 300s Five (5) shots of 60 units before meal if Bg 450 or more. __ COntinue Levemir 80 units Twice cy y BG TEST PLAN: Test Blood Sugar daily before breakfast, lunch, supper and bedtime . EVERY day on awakeining and every day before supper ( 8 to 12 mn) S KEEP RECORDS SHOULD see You FACE to FACE. GO FOR LABS TWO WEEKS BEFORE NEXT VISIT July 2021 CARE OF YOUR DIABETES: Healthy Eating Habits CONTINUE EATING BE TTER. -- Limited Carbohydrate (bread, pasta, p otato, rice , also ice cream, cake, other treats) -- LImited Saturated Fat --- No added salt Drink at least One glass of water befor e each meal Exercise ---- Move, try to do a little walking, o r housework or any moving active ---- Lift, Light 1 to 3# upper body, sta irs. other -----Stretch -- whole body ORAL AGENTS: ---- None NOn insulin INsulin INjectable ----- Bydureon 2 mg inject once every we ek INsulin -- Continue Humalog two (2) shots of 60 units before meals if BGs in 100s three (3) shots of 60 before meal if BG 200s four (4) shots of 60 units before meal if BGs 300s Five (5) shots of 60 units before meal if Bg 450 or more. __ COntinue Levemir 80 units Twice cy y BG TEST PLAN: Test Blood Sugar daily before breakfast, lunch, supper and bedtime . EVERY day on awakeining and every day before supper ( 8 to 12 mn) S KEEP RECORDS GO FOR LABS TWO WEEKS BEFORE NEXT VISIT July 2021 CARE OF YOUR DIABETES: Healthy Eating Habits CONTINUE EATING BE TTER. -- Limited Carbohydrate (bread, pasta, p otato, rice , also ice cream, cake, other treats) -- LImited Saturated Fat --- No added salt Drink at least One glass of water befor e each meal Exercise ---- Move, try to do a little walking, o r housework or any moving active ---- Lift, Light 1 to 3# upper body, sta irs. other -----Stretch -- whole body ORAL AGENTS: ---- None NOn insulin INsulin INjectable ----- Bydureon 2 mg inject once every we ek try to change to oral Rybelsus 3 mg one tab daily INsulin -- Continue Humalog 120 units before ea ch mreal __INcrease Levemir 170 units at betime BG TEST PLAN: Try to get more blood tests. As often as possible. Test Blood Sugar daily before breakfast, lunch, supper and bedtime . EVERY day on awakeining and every day before supper ( 8 to 12 mn) Sometimes test before Lunch (10 AM to 2 PM) KEEP RECORDS GO FOR LABS TWO WEEKS BEFORE NEXT VISIT July 2021 CARE OF YOUR DIABETES: Healthy Eating Habits CONTINUE EATING BE TTER. -- Limited Carbohydrate (bread, pasta, p otato, rice , also ice cream, cake, other treats) -- LImited Saturated Fat --- No added salt Drink at least One glass of water befor e each meal Exercise ---- Move, try to do a little walking, o r housework or any moving active ---- Lift, Light 1 to 3# upper body, sta irs. other -----Stretch -- whole body ORAL AGENTS: ---- None NOn insulin INsulin INjectable ----- Bydureon 2 mg inject once every we ek INsulin -- Continue Humalog 120 units before ea ch mreal __INcrease Levemir 170 units at betime BG TEST PLAN: Try to get more blood tests. As often as possible. Test Blood Sugar daily before breakfast, lunch, supper and bedtime . EVERY day on awakeining and every day before supper ( 8 to 12 mn) Sometimes test before Lunch (10 AM to 2 PM) KEEP RECORDS Reminders Provider Appointments None recorded. ? ? Lab None recorded. ? ? Referral None recorded. ? ? Procedures None recorded. ? ? Surgeries None recorded. ? ? Imaging None recorded. ? ? Vitals 10/26/2021 04:30PM Virtual Check-in Phone Height Weight BMI Blood Pressure 160.02 cm 86.18 kg 33.7 kg/m2 09/28/2021 11:30AM Virtual Check-in Phone Height Weight BMI Blood Pressure 160.02 cm 07/20/2021 08:30AM Virtual Check-in Phone Height Weight BMI Blood Pressure 160.02 cm 87.54 kg 34.2 kg/m2 04/20/2021 09:00AM Virtual Check-in Phone Height Weight BMI Blood Pressure 160.02 cm 88 kg 34.4 kg/m2 01/13/2021 04:30PM Virtual Check-in Phone Height Weight BMI Blood Pressure 160.02 cm 88.45 kg 34.5 kg/m2 10/27/2020 12:30PM Virtual Check-in Phone Height Weight BMI Blood Pressure 160.02 cm 86.18 kg 33.7 kg/m2 08/26/2020 02:30PM Virtual Check-in Phone Height Weight BMI 160.02 cm 86.18 kg 33.7 kg/m2 06/25/2020 02:00PM ENDOCRINOLOGY FOLLOW UP 30 Height Weight BMI Blood Pressure 160.02 cm 88.56 kg 34.6 kg/m2 118/64 mm[Hg] 03/12/2020 10:00AM Virtual Check-in Phone Height Weight BMI Blood Pressure 160.02 cm 02/26/2020 10:30AM Virtual Check-in Phone Height Weight BMI 160.02 cm 01/29/2020 01:30PM Virtual Check-in Phone Height Weight BMI 160.02 cm 95.25 kg 37.2 kg/m2 12/18/2019 01:30PM Virtual Check-in Phone Height Weight BMI 160.02 cm 90.72 kg 35.4 kg/m2 10/10/2019 10:15AM ENDOCRINOLOGY NEW PATIENT 60 Height Weight BMI Blood Pressure 160.02 cm 90.26 kg 35.3 kg/m2 112/74 mm[Hg]
--- OUTSIDE RECORDS SUMMARY | 2022-07-23 01:01 | XMS_ITS | Encounter Summary ---
:1980 Author Organization [facility] Address [address] [place] [address] Care Team Providers Name Role Phone Kris Violetta Zamudio SUPERVISOR BACKFILLING Primary Care Provider Encounter Details Date Type Department Care Team Description 10/25/2013 Results Only [facility] Zenaida Ponce, SUPERVISOR BACKFILLING Laboratory Services - [address] [facility] [address] [place], [place] [address] [facility] [address] [place] [address] [phone] Social History Tobacco Use Types Packs/Day Years Used Date Smoking Tobacco: Never Assessed Sex Assigned at Date Recorded Not on file documented as of this encounter Plan of Treatment Not on filedocumented as of this encounter Procedures Procedure Name Priority Date/Time Associated Diagnosis Comme nts PAP TEST- RESULT Routine 10/25/2013 0:00 EST Resu lts for this ONLY procedure are i n the results section. documented in this encounter Results PAP TEST- RESULT ONLY (10/25/2013 0:00 EST) Component Value Ref Test Analysis Performed At [facility] Method Time Signature Pathology CYTOPATHOLOGY REPORT CARLYN Report: [facility] Reports generated via electronic interface contain original data; however they are lacking the format of the original report. Caution should be taken when reading/interpreting unformatte d reports. Name: ? EVELIN LANDON ? Accession #: ? [id number] ? : ? 1980 (Age: 33) ??F ?Collect Da te: ? 10/25/2013 ? Location: ? [facility] ? Receive Date: ? 10/26/2013 ? Provider: VIOLETTA PONCE SUPERVISOR BACKFILLING Copy to: ? Final Report SPECIMEN ADEQUACY ? Satisfactory for Evaluation - transformation zone component present GENERAL CATEGORIZATION ? Negative for Intraepithelial Lesion or Malignancy INTERPRETATION ? Reactive cellular surya nges associated with inflammation present (includes repair). Shift in chan present suggestive of bacterial vaginosis. Last Menstrual Period: 10/06/13 Hormonal/Contraceptive status: Provera: Q mouth Specimen/Source: ??Pap Test, Cervix/Endocervix, ThinPr ep Imaging System with manual evaluation Document reviewed and electronically signed by: ? INDERJIT CHA MD ? Report ??Date: 11/02/2013 16:29 HPV with Pap Test ? Date Ordered: ? 11/02/2013 ? Status: ?? Catarina d Out ?Date Complete: ? 11/07/2013 ? By: ??System Interface ? Date Reported: ? 11/07/2013 ? Interpretation RESULT: Negative for HPV. No E6 or E7 mRNA is detected from HPV types 16,18,31,33,35, 39,45,51,52,56,58,59,66, and 68 by superintendent maintenance airports mediated amplification. Comments Document reviewed and electronically signed by: ? System Interface ? Report date: 11/07/2013 By the signature above, the attending physician certifies th at he/she has personally conducted a gross and/or microscopic examin ation of the described specimens and rendered or confirmed the above diagnosis. End of Report Specimen (Source) Anatomical Location Collection Method / Collectio n Time Received Time / Laterality Volume 10/25/2013 10/26/2013 Violetta Ponce NP PATHOLOGY ORDERABLES Performing Organization Address City/State/ZIP Code Phon e Number [facility] [address] [place] [address] SERVICES [facility] [address] [place] [address] documented in this encounter Visit Diagnoses Not on filedocumented in this encounter Care Teams Extension Division Director Relationship Specialty Start Date End Date Violetta Ponce, NYA PCP - General 09/09/11 12/26/[address] [place] [phone] documented as of this encounter
--- OUTSIDE RECORDS SUMMARY | 2022-07-23 01:01 | XMS_ITS | Encounter Summary ---
:1980 Author Organization [facility] Address [address] [place] [address] Care Team Providers Name Role Phone Unknown, Provider Primary Care Provider Encounter Details Date Type Department Care Team Description 10/16/2010 Results Only [facility] Zenaida Ponce, ALUMINUM SIDING INSTALLER Laboratory Services - [address] [facility] [address] [place], [place] [address] [facility] [address] [place] [address] [phone] Social History Tobacco Use Types Packs/Day Years Used Date Smoking Tobacco: Never Assessed Sex Assigned at Date Recorded Not on file documented as of this encounter Plan of Treatment Not on filedocumented as of this encounter Procedures Procedure Name Priority Date/Time Associated Diagnosis Comme [facility] CYTOPATHOLOGY Routine 10/16/2010 0:00 EST Results for this procedure are i n the results section . documented in this encounter Results CYTOPATHOLOGY (10/16/2010 0:00 EST) Component Value Ref Test Analysis Performed At [facility] Pathology CYTOPATHOLOGY REPORT ? CARLYN Report: ? [facility] Reports generated via electr onic interface contain original data; ? however they are lacking the format of the original report. ? Caution should be taken when reading/interpreting unformatted reports. ? Name: ? EVELIN LANDON ? Accession #: ? [id number] ? : ? 1980 (Age: 30) ??F ?Collect Date: ? 10/16/2010 ? Location: ? [facility] ? Receive Date: ? 10/20/2010 ? Provider: ?VIOLETTA PONCE ALUMINUM SIDING INSTALLER ? Copy to: ? Specimen/Source: ? Pap Test, Cervix/Endocervix, ThinPrep Imaging System ? with manual evaluation ? Last Menstrual Period: ? not x 1 yr ? Hormonal/Contraceptive Statu s: ? Tubal ligation: 2004 ? SPECIMEN ADEQUACY ? Satisfactory for Eval uation ? - transformation zone compon ent present ? GENERAL CATEGORIZATION ? Negative for Intraepi thelial Lesion or Malignancy ? INTERPRETATION ? Reactive cellular surya nges associated with inflammation present (includes ?? repair). ? Shift in chan present sugge stive of bacterial vaginosis. ? Document reviewed and electr onically signed by: ? Monie J. Palomares, MD P hD ? Report Date: ??02/18/ 2011 13:16 ? End of Report ? Specimen (Source) Anatomical Location Collection Method / Collectio n Time Received Time / Laterality Volume 10/16/2010 10/20/2010 Violetta Ponce ALUMINUM SIDING INSTALLER PATHOLOGY ORDERABLES Performing Organization Address City/State/ZIP Code Phon e Number [facility] [address] [place] [address] SERVICES [facility] [address] [place] [address] documented in this encounter Visit Diagnoses Not on filedocumented in this encounter Care Teams National Insurance Officer Relationship Specialty Start Date End Date Unknown, Provider, PCP - General 09/08/09 09/08/11 documented as of this encounter
--- NOTE | 2022-07-23 07:30 | DI.US_ITS ---
Exam(s) US PELVIS EXAM: US PELVIS CLINICAL HISTORY: Recheck,uterine mass, n85.8 TECHNIQUE: Ultrasound of the pelvis was performed transabdominally. Patient apparently refused morel svaginal study.. COMPARISON: CT CT ABDOMEN PELVIS W from 11/24/2021 US US ABDOMEN from 01/29/[address] ABDOMEN PELVIS W from 03/10/2022 FINDINGS: UTERUS: Anteverted Measures 9 cm length x 4.3 cm AP x 6.7 cm wide. There are 2 cystic structures associated with the posterior myometrium, left of center, these measuri ng 4 x 2.5 cm and 1.2 x 1 cm.These appear separate from the ovary. Endometrial thickness measures 2 mm. There is no fluid in the endometrial canal. CERVIX: There are no obvious nabothian cysts. RIGHT OVARY: Measures 2.4 x 1.7 x 2 2.4 cm No significant cysts nor masses evident in the right ovary. LEFT OVARY: Measures 1.8 x 2.6 x 2.3 cm No significant cysts nor masses evident in the left ovary. CUL-DE-SAC: No free fluid evident. IMPRESSION: 1. Normal appearing uterus and age-appropriate endometrium. However, there are 2 non septated cystic structures intimately associated with posterior left side of the uterus measuring by 2.5 cm and 1.2 x 1 cm. These are probably extra uterine and possibly para ovarian cysts but difficult to assess acc urately without transvaginal technique (apparently patient declined transvaginal study) if clinically indicated further study with MRI can be performed for added sensitivity and specificity. 2. No other abnormal adnexal findings. 3. No free fluid evident in the adnexal regions and cul-de-sac. DATA REPOSITORY:
== END ==
PROVIDERS: PCP Nurse Practitioner Family; Visit Provider Obstetrics & Gynecology
DX: N85.8 Other specified noninflammatory disorders of uterus (principal)
CPT/HCPCS: 76856

== ENCOUNTER 2022-07-28 19:01 | Emergency (ER) | payer MEDICAID, SELFPAY ==
--- NOTE | 2022-07-28 19:00 | RT.EKG_ITS ---
APPROVED REPORT Exam: Resting ECG Reason for Exam: dizzy, syncope Patient Location: E HR:98 bpm ECG Measurements Heart Rate 98 AXIS [place] 168 P 45 QRSd 86 QRS 41 QT 351 T 37 QTc 449 Conclusion Sinus rhythm...normal P axis, V-rate 60- 99
[2022-07-28 19:02] VITALS: BP 125/91; PULSE 101; RESP 16; TEMP 36.9; O2SAT 97
--- NOTE | 2022-07-28 19:06 | ED.GENADUL_ITS ---
Discharge Plan Disposition Patient Disposition: Home Condition: Improving Discharge Details Clinical Impression: Marijuana intoxication, Acute hyperglycemia Primary Care Provider: YURI HARRELL ED Provider: Alan Martinez Home Meds and New Rx's Prescriptions: Continued Trulicity 0.75 mg/0.5 mL pen injector 0.75 mg subcut QWEEK Label Comments: 03/15/22- pt unsure of dose. Pt reports it is a new med as of around a month ago. gabapentin 300 mg capsule 300 mg PO QHS nystatin 100,000 unit/gram cream 1 applic topical BID Qty: 30 3RF pregabalin 200 mg capsule 200 mg PO BID Qty: 60 5RF levothyroxine 75 MCG tablet 75 mcg PO DAILY benztropine 2 mg Tablet 2 mg PO HS divalproex 250 mg Tablet Extended Release 24 Hr 250 mg PO HS Bydureon BCise 2 mg/0.85 mL Auto-Injector 2 mg SUBCUT QWEEK divalproex 500 mg Tablet,Delayed Release (Dr/Ec) 1,000 mg PO BID olanzapine 15 mg Tablet 15 mg PO DAILY Levemir FlexTouch U-100 Insuln 100 unit/mL (3 mL) insulin pen 80 unit SUBCUT BID Humalog KwikPen Insulin 200 unit/mL (3 mL) insulin pen 4 unit SUBCUT TID Label Comments: 03/15/22- pt report she takes 4-5 units with meals. citalopram [Celexa] 20 mg tablet 20 mg PO DAILY Label Comments: Take 1 tablet by mouth every morning topiramate [Topamax] 50 mg tablet 50 mg PO BID Label Comments: Take 1 tablet by mouth twice a day Aristada 882 mg/3.2 mL suspension,extended rel syring 882 mg IM Q4W Label Comments: take IM every 4 weeks Rx Instructions: every 4 weeks aripiprazole [Abilify] 30 MG tablet 15 mg PO DAILY Discharge Instructions Instructions: Diabetic Hyperglycemia (ED) Additional Instructions: Please avoid further use of marijuana. Resume normal routine, activities, and medications. Your glucose was 500 today and you were given 10 units of regular insulin in addition to fluids. Please follow-up with your regular doctor for recheck. Discharge Data Discharge Date/Time-TO BE ENTERED AT DEPARTURE: 07/28/22 22:26 Medical Decision Making 41-year-old female presents via EMS. After eating dinner she smokes some marijuana and became confused and acting strangely. EMS was called patient was transported to the ER. She arrives slightly tachycardic but afebrile with normal blood pressure. She is interactive and in no acute distress. IV access established and screening laboratories obtained. Patient is noted to have hyperglycemia without anion gap. Her glucose is 556. BUN is 8 and creatinine 0.9. Note of mildly elevated AST and ALT which is chronic for her. Also note of THC in the urine. Patient given 2 L normal saline and with good urine output. She is given 10 units regular insulin. Patient improved and request discharge to home. Sign Out No HPI General Mode of arrival: ambulatory . Date/Time Provider Initiated Documentation: 07/28/22 19:49 . Limitations to Documentation: no limitations . Information obtained by: patient . History of Present Illness 41 year old F presents to the emergency department with the chief complaint of Mental status changes after smoking marijuana, described as moderate, Patient started experiencing this minute(s) and it has been constant. No relieving factors improve symptom(s), No exacerbating factors reported . Patient notes no other symptoms.; denies fever/chills and headaches. Patient did receive the following treatments prior to arrival, none Related Data Home Medications Medication Instructions Recorded Confirmed levothyroxine 75 mcg tablet 75 mcg PO DAILY 03/15/16 06/21/22 gabapentin 300 mg capsule 300 mg PO QHS 10/25/18 06/21/22 aripiprazole lauroxil 882 mg/3.2 882 mg IM Q4W 07/12/21 06/21/22 mL suspension, ext.rel. IM syringe (Aristada) citalopram 20 mg tablet (Celexa) 20 mg PO DAILY 07/12/21 06/21/22 topiramate 50 mg tablet (Topamax) 50 mg PO BID 07/12/21 06/21/22 benztropine 2 mg tablet 2 mg PO HS 09/17/21 06/21/22 divalproex 250 mg tablet,extended 250 mg PO HS 09/17/21 06/21/22 release 24 hr divalproex 500 mg tablet,delayed 1,000 mg PO BID 09/17/21 06/21/22 release exenatide microspheres 2 mg/0.85 2 mg subcut QWEEK 09/17/21 06/21/22 mL subcutaneous auto-injector (Bydureon BCise) olanzapine 15 mg tablet 15 mg PO DAILY 09/17/21 06/21/22 dulaglutide 0.75 mg/0.5 mL 0.75 mg subcut QWEEK 03/15/22 06/21/22 subcutaneous pen injector (Trulicity) insulin detemir U-100 100 unit/mL 80 unit subcut BID 03/15/22 06/21/22 (3 mL) subcutaneous pen (Levemir FlexTouch U-100 Insulin) insulin lispro 200 unit/mL (3 mL) 4 unit subcut TID 03/15/22 06/21/22 subcutaneous pen (Humalog KwikPen U-200 Insulin) pregabalin 200 mg capsule 200 mg PO BID #60 caps 05/05/22 06/21/22 aripiprazole 30 mg tablet (Abilify) 15 mg PO DAILY 06/21/22 06/21/22 nystatin 100,000 unit/gram topical 1 applic topical BID #30 grams 07/26/22 07/26/22 cream Previous Rx's Medication Instructions Recorded pregabalin 200 mg capsule 200 mg PO BID #60 caps 05/05/22 nystatin 100,000 unit/gram topical 1 applic topical BID #30 grams 07/26/22 cream Allergies Allergy/AdvReac Type Severity Reaction Status Date / Time codeine Allergy Mild Unverified 07/26/22 09:59 General CECILIA: 3 Review of Systems Narrative: Denies other drug use. 6 systems reviewed and otherwise negative. PFSH All Active Problems (Updated 07/28/22 @ 20:53 by Alan Martinez MD) Marijuana intoxication (Acute) Acute hyperglycemia (Acute) Dysfunctional uterine bleeding (Acute) Pelvic mass in female (Acute) Oligomenorrhea (Acute) Uterine mass (Acute) Schizophrenia (Chronic) Diabetes mellitus type 2 in obese (Acute) Medical History Deviated nasal septum Drug overdose, intentional H/O suicide attempt History of hypothyroidism Non compliance w medication regimen RLS (restless legs syndrome) Schizoaffective disorder Trigeminal neuralgia of left side of face (01/03/18) Type 2 diabetes mellitus Yeast dermatitis Surgical History H/O pilonidal cyst Ligation of fallopian tube S/p breast implant removal Sep 2019 S/P breast implant, left S/P foot surgery Family History Mother Diabetes Father Heart disease Social History Smoking/Tobacco Use Status: Current-Occasional Tobacco Type: cigarettes and cigars Smoking risk assessment performed?: Yes Alcohol Intake: never Drug use: Socially Substance use type: marijuana Number of Children: 2 current occupation: Disabled Seatbelt use: always Do you feel safe at home: Yes Do you feel safe in your relationship?: Yes Female Reproductive History Menstrual Age of Menarche: 16 Duration of menses: other control method: permanent sterilization History History 2 Para 2 Hx # Term Pregnancies Multiple births Hx # Pregnancies Ectopic pregnancies AB induced Hx Number of Living Children AB spontaneous Past Pregnancies Del. Date GA/Weeks # Preg Succ Route Wgt Sex Labor Lgth Anesth esia Location [facility] Complic 08/30/01 40 No Yes vaginal Female 03/25/02 40 No Yes vaginal Male Delivery Date: 08/30/01 [facility]: [facility]02 Last Updated by: [facility] Exam Narrative Exam Narrative: GEN: awake, alert,, interactive. HEAD: Normocephalic, atraumatic ENT: Mucous membranes moist, oropharynx unremarkable, External ear exam unremarkable EYES: PERRL, EOMI NECK: Full ROM, no NOHEMI, no menigismus CHEST/RESP: Nontender, clear to auscultation bilateral, no wheeze/rhonchi/rales CARDIOVASCULAR: RRR, no murmur, rub rico. 2+ Rad pulse bilateral ABDOMEN: Soft, nontender, no mass. +Bowel sounds EXT: Full ROM, no edema, no rash Neuro: Grossly normal neurologic exam, conversant, interactive. Psych: Speech fluent, thoughts tangential, affect flat
[2022-07-28] MEDS: Normal Saline 1,000 ML 125 ML IV (19:22)
[2022-07-28 19:24] LABS: Abs Immature Grans 0.03 10^3/uL (0.0-0.06); Absolute Basophil Count 0.02 10^3/uL (0.0-0.2); Absolute Eosinophil Count 0.08 10^3/uL (0.0-0.7); Absolute Lymphocyte Count 2.26 10^3/uL (1.2-3.4); Absolute Monocyte Count 0.49 10^3/uL (0.1-0.8); Absolute Neutrophil Count 3.46 10^3/uL (1.2-6.7); Basophils % 0.3; Eosinophils % 1.3; HCT 39.8 % (36.0-46.0); HGB 14.2 g/dL (11.2-15.7); Immature Grans % 0.5; Lymphocytes % 35.6; MCH 33.8 pg (27.0-33.0); MCHC 35.7 % (32.0-36.0); MCV 95 fL (80-95); Monocytes % 7.7; Neutrophils % 54.6; Platelet Count 200 10^3/uL (130-400); RDW 11.9 % (11.7-14.6); RDW-SD 41.1 fL; WBC 6.34 10^3/uL (4.4-10.8)
[2022-07-28 19:45] LABS: ALT 60 U/L (14-59); AST 63 U/L (15-37); Albumin 3.3 g/dL (3.4-5.0); Alkaline Phosphatase 189 U/L (46-116); Anion Gap 7.6 mmol/L (3-11); BUN 8 mg/dL (7-18); Bilirubin, Total 0.3 mg/dL (0.2-1.0); CO2 25.4 mmol/L (21.0-32.0); CREATININE 0.9 mg/dL (0.55-1.02); Calcium 8.9 mg/dL (8.5-10.1); Chloride 98 mmol/L (98-107); Estimated GFR 82.37 (mL/min/1.73m2); Sodium 131 mmol/L (136-145); Total Protein 7.3 g/dL (6.4-8.2)
[2022-07-28 19:48] LABS: Glucose 556 mg/dL (74-106)
[2022-07-28 19:58] LABS: ETHANOL BLOOD < 3.0 mg/dL (<10)
[2022-07-28] MEDS: Normal Saline 1,000 ML 1000 ML IV (20:23)
[2022-07-28 20:28] LABS: Bilirubin Negative (Negative); Blood Negative (Negative); Clarity Clear (Clear); Glucose >=1000 mg/dL (Negative); Ketones Negative (Negative); Leukocyte Esterase Negative (Negative); Nitrite Negative (Negative); Specific Gravity 1.015 (1.005-1.025); Urobilinogen 0.2 EU/dL (Up TO 0.2)
[2022-07-28 20:40] LABS: *AMPHETAMINES SCREEN URINE Negative (Negative); *BARBITURATES SCREEN URINE Negative (Negative); *BENZODIAZEPINES SCREEN URINE Negative (Negative); Cannabinoids THC Positive (Negative); Cocaine Screen,Urine Negative (Negative); METHADONE URINE SCREEN Negative (Negative); OPIATES URINE SCREEN Negative (Negative); Tricyclic Antidepressants Negative (Negative)
[2022-07-28] MEDS: Insulin REGULAR-Human 100 UNITS/ML UNIT 10 UNITS IV (21:25)
[2022-07-28 22:24] VITALS: BP 137/63; PULSE 72; RESP 16; TEMP 36.6; O2SAT 99
== END 2022-07-28 22:26 | disposition home or self-care (01) ==
PROVIDERS: Emergency Provider Emergency Medicine; PCP Nurse Practitioner Family
DX: F12.929 Cannabis use, unspecified with intoxication, unspecified (principal); E11.65 Type 2 diabetes mellitus with hyperglycemia; R41.0 Disorientation, unspecified; R74.01 Elevation of levels of liver transaminase levels; R00.0 Tachycardia, unspecified; E03.9 Hypothyroidism, unspecified; F17.210 Nicotine dependence, cigarettes, uncomplicated; F17.290 Nicotine dependence, other tobacco product, uncomplicated; Z79.4 Long term (current) use of insulin
CPT/HCPCS: 36416; 80053; 80307; 82962; 93005; 96361; 96374; 99284; 80320; 81003; 83735; 85025; 93010

== ENCOUNTER 2022-09-03 17:10 | Emergency (ER) | payer MEDICAID, SELFPAY ==
--- NOTE | 2022-09-03 17:00 | RT.EKG_ITS ---
APPROVED REPORT Exam: Resting ECG Reason for Exam: syncope Patient Location: E HR:108 bpm ECG Measurements Heart Rate 108 AXIS NC 149 P 0 QRSd 89 QRS 64 QT 401 T 11 QTc 538 Conclusion Sinus tachycardia...rate> 99 Probable left atrial enlargement...P >50mS, <-0.10mV V1 Prolonged QT interval...QTc >510mS
[2022-09-03 17:14] VITALS: BP 161/77; PULSE 103; RESP 18; TEMP 36.5; O2SAT 97
--- NOTE | 2022-09-03 17:15 | ED.GENADUL_ITS ---
Discharge Plan Disposition Patient Disposition: Home Discharge Details Clinical Impression: Mental status change resolved Primary Care Provider: YURI HARRELL ED Provider: Alan Martinez Home Meds and New Rx's Prescriptions: Continued Trulicity 0.75 mg/0.5 mL pen injector 0.75 mg subcut QWEEK Label Comments: 03/15/22- pt unsure of dose. Pt reports it is a new med as of around a month ago. gabapentin 300 mg capsule 300 mg PO QHS nystatin 100,000 unit/gram cream 1 applic topical BID Qty: 30 3RF pregabalin 200 mg capsule 200 mg PO BID Qty: 60 5RF levothyroxine 75 MCG tablet 75 mcg PO DAILY benztropine 2 mg Tablet 2 mg PO HS divalproex 250 mg Tablet Extended Release 24 Hr 250 mg PO HS Bydureon BCise 2 mg/0.85 mL Auto-Injector 2 mg SUBCUT QWEEK divalproex 500 mg Tablet,Delayed Release (Dr/Ec) 1,000 mg PO BID olanzapine 15 mg Tablet 15 mg PO DAILY Levemir FlexTouch U-100 Insuln 100 unit/mL (3 mL) insulin pen 80 unit SUBCUT BID Humalog KwikPen Insulin 200 unit/mL (3 mL) insulin pen 4 unit SUBCUT TID Label Comments: 03/15/22- pt report she takes 4-5 units with meals. citalopram [Celexa] 20 mg tablet 20 mg PO DAILY Label Comments: Take 1 tablet by mouth every morning topiramate [Topamax] 50 mg tablet 50 mg PO BID Label Comments: Take 1 tablet by mouth twice a day Aristada 882 mg/3.2 mL suspension,extended rel syring 882 mg IM Q4W Label Comments: take IM every 4 weeks Rx Instructions: every 4 weeks aripiprazole [Abilify] 30 MG tablet 15 mg PO DAILY Discharge Instructions Additional Instructions: Home to rest today. Small, frequent sips of fluids to maintain hydration. Return for any acute concerns. Continue your routine medications. Medical Decision Making 42-year-old female with a history of diabetes, schizophrenia, who presents via EMS after stating that while seated at home she felt weak and then states while seated she had a period of unresponsiveness. EMS was called and the patient was transported with improvement of her symptoms by the time of arrival. She denies having a recent illness, no chest pain or headache. States she is no longer using drugs or alcohol. Patient is well-appearing, interactive and without focal neurologic deficit on exam. She demonstrates decision-making capacity. She request discharge but agrees to bedside EKG and glucose. Glucose is in the mid 200s, EKG shows a sinus rhythm with a rate of approximate 108. Patient does not require further work-up unless she wishes. She is appropriate to discharge as she requests. HPI General Mode of arrival: EMS . Date/Time Provider Initiated Documentation: 09/03/22 17:18 . Limitations to Documentation: no limitations . Information obtained by: patient and EMS . History of Present Illness 42 year old F presents to the emergency department with the chief complaint of [place] she might have diabetic emergency, was unresponsive briefly, described as similar to prior episodes, Patient started experiencing this unknown No relieving factors improve symptom(s), No exacerbating factors reported . Patient notes confusion and weakness; denies chest pain, cough, seizure and syncope. Patient did receive the following treatments prior to arrival, none Related Data Home Medications Medication Instructions Recorded Confirmed levothyroxine 75 mcg tablet 75 mcg PO DAILY 03/15/16 06/21/22 gabapentin 300 mg capsule 300 mg PO QHS 10/25/18 06/21/22 aripiprazole lauroxil 882 mg/3.2 882 mg IM Q4W 07/12/21 06/21/22 mL suspension, ext.rel. IM syringe (Aristada) citalopram 20 mg tablet (Celexa) 20 mg PO DAILY 07/12/21 06/21/22 topiramate 50 mg tablet (Topamax) 50 mg PO BID 07/12/21 06/21/22 benztropine 2 mg tablet 2 mg PO HS 09/17/21 06/21/22 divalproex 250 mg tablet,extended 250 mg PO HS 09/17/21 06/21/22 release 24 hr divalproex 500 mg tablet,delayed 1,000 mg PO BID 09/17/21 06/21/22 release exenatide microspheres 2 mg/0.85 2 mg subcut QWEEK 09/17/21 06/21/22 mL subcutaneous auto-injector ([employer]) olanzapine 15 mg tablet 15 mg PO DAILY 09/17/21 06/21/22 dulaglutide 0.75 mg/0.5 mL 0.75 mg subcut QWEEK 03/15/22 06/21/22 subcutaneous pen injector (Trulicity) insulin detemir U-100 100 unit/mL 80 unit subcut BID 03/15/22 06/21/22 (3 mL) subcutaneous pen (Levemir FlexTouch U-100 Insulin) insulin lispro 200 unit/mL (3 mL) 4 unit subcut TID 03/15/22 06/21/22 subcutaneous pen (Humalog KwikPen U-200 Insulin) pregabalin 200 mg capsule 200 mg PO BID #60 caps 05/05/22 06/21/22 aripiprazole 30 mg tablet (Abilify) 15 mg PO DAILY 06/21/22 06/21/22 nystatin 100,000 unit/gram topical 1 applic topical BID #30 grams 07/26/22 07/26/22 cream Previous Rx's Medication Instructions Recorded pregabalin 200 mg capsule 200 mg PO BID #60 caps 05/05/22 nystatin 100,000 unit/gram topical 1 applic topical BID #30 grams 07/26/22 cream Allergies Allergy/AdvReac Type Severity Reaction Status Date / Time codeine Allergy Mild Unverified 07/26/22 09:59 General CECILIA: 3 Review of Systems Narrative: Denies headache, chest pain, drug use, alcohol use. Now improved. 6 systems reviewed and otherwise negative PFSH All Active Problems (Updated 09/03/22 @ 17:38 by Alan Martinez MD) Mental status change resolved (Acute) Dysfunctional uterine bleeding (Acute) Pelvic mass in female (Acute) Oligomenorrhea (Acute) Uterine mass (Acute) Schizophrenia (Chronic) Diabetes mellitus type 2 in obese (Acute) Medical History Deviated nasal septum Drug overdose, intentional H/O suicide attempt History of hypothyroidism Non compliance w medication regimen RLS (restless legs syndrome) Schizoaffective disorder Trigeminal neuralgia of left side of face (01/03/18) Type 2 diabetes mellitus Yeast dermatitis Surgical History H/O pilonidal cyst Ligation of fallopian tube S/p breast implant removal Sep 2019 S/P breast implant, left S/P foot surgery Family History Mother Diabetes Father Heart disease Social History Smoking/Tobacco Use Status: Current-Occasional Tobacco Type: cigarettes and cigars Smoking risk assessment performed?: Yes Alcohol Intake: never Drug use: Socially Substance use type: marijuana Number of Children: 2 current occupation: Disabled Seatbelt use: always Do you feel safe at home: Yes Do you feel safe in your relationship?: Yes Female Reproductive History Menstrual Age of Menarche: 16 Duration of menses: other control method: permanent sterilization History History 2 Para 2 Hx # Term Pregnancies Multiple births Hx # Pregnancies Ectopic pregnancies AB induced Hx Number of Living Children AB spontaneous Past Pregnancies Del. Date GA/Weeks # Preg Succ Route Wgt Sex Labor Lgth Anesth esia Location Prov Complic 08/30/01 40 No Yes vaginal Female 03/25/02 40 No Yes vaginal Male Delivery Date: 08/30/01 [facility]: [facility] Last [facility]: [facility] Exam Narrative Exam Narrative: GEN: awake, alert, oriented 3. Pleasant, well groomed, interactive. HEAD: Normocephalic, atraumatic ENT: Mucous membranes moist, oropharynx unremarkable, External ear exam unremarkable EYES: PERRL, EOMI NECK: Full ROM, no NOHEMI, no menigismus CHEST/RESP: Nontender, clear to auscultation bilateral, no wheeze/rhonchi/rales CARDIOVASCULAR: Pulse approximately 100, regular, no murmur, rub rico. 2+ Rad pulse bilateral ABDOMEN: Soft, nontender, no mass. +Bowel sounds EXT: Full ROM, no edema, no rash Neuro: Grossly normal neurologic exam, conversant, interactive. Psych: Speech fluent, thoughts congruent, affect normal
== END 2022-09-03 17:45 | disposition home or self-care (01) ==
LOC: ER 19:03
PROVIDERS: Emergency Provider Emergency Medicine; PCP Nurse Practitioner Family
DX: R41.82 Altered mental status, unspecified (principal); E11.9 Type 2 diabetes mellitus without complications; F20.9 Schizophrenia, unspecified; R55 Syncope and collapse
CPT/HCPCS: 36416; 82962; 93005; 99283; 93010

== ENCOUNTER 2022-11-17 01:04 | Emergency (ER) | payer MEDICAID, SELFPAY ==
[2022-11-17] VITALS (25 sets, daily range): BP systolic 103–131; BP diastolic 59–73; PULSE 61–100; RESP 12–20; TEMP 36.8; O2SAT 93–96
--- NOTE | 2022-11-17 01:00 | RT.EKG_ITS ---
APPROVED REPORT Exam: Resting ECG Reason for Exam: altered Patient Location: E HR:99 bpm ECG Measurements Heart Rate 99 AXIS OH 152 P 58 QRSd 81 QRS 95 QT 342 T 4 QTc 440 Conclusion Sinus rhythm...normal P axis, V-rate 60- 99. Sinus. Normal axis. No STEMI. I have reviewed and interpreted ECG and agree with software generated interpretation.
--- NOTE | 2022-11-17 01:10 | W.ED.GENAD ---
Discharge Plan Disposition Patient Disposition: Home Condition: Stable Discharge Details Clinical Impression: Hyperglycemia, Episode of syncope, Noncompliance with medication regimen Primary Care Provider: YURI HARRELL ED Provider: Nan Sidhu Home Meds and New Rx's Prescriptions: Continued Trulicity 0.75 mg/0.5 mL pen injector 0.75 mg subcut QWEEK Patient Comments: Pt states she can't keep sticking herself gabapentin 300 mg capsule 300 mg PO QHS nystatin 100,000 unit/gram cream 1 applic topical BID Qty: 30 3RF pregabalin 200 mg capsule 200 mg PO BID Qty: 60 5RF levothyroxine 75 MCG tablet 75 mcg PO DAILY benztropine 2 mg Tablet 2 mg PO HS divalproex 250 mg Tablet Extended Release 24 Hr 250 mg PO HS Bydureon BCise 2 mg/0.85 mL Auto-Injector 2 mg SUBCUT QWEEK Patient Comments: I can't keep sticking myself divalproex 500 mg Tablet,Delayed Release (Dr/Ec) 1,000 mg PO BID olanzapine 15 mg Tablet 15 mg PO DAILY Levemir FlexTouch U-100 Insuln 100 unit/mL (3 mL) insulin pen 80 unit SUBCUT BID Patient Comments: Pt states she can't keep sticking herself Humalog KwikPen Insulin 200 unit/mL (3 mL) insulin pen 4 unit SUBCUT TID Patient Comments: Pt states she can't keep sticking herself citalopram [Celexa] 20 mg tablet 20 mg PO DAILY Patient Comments: Take 1 tablet by mouth every morning topiramate [Topamax] 50 mg tablet 50 mg PO BID Patient Comments: Take 1 tablet by mouth twice a day Aristada 882 mg/3.2 mL suspension,extended rel syring 882 mg IM Q4W Patient Comments: take IM every 4 weeks Rx Instructions: every 4 weeks aripiprazole [Abilify] 30 MG tablet 15 mg PO DAILY Discharge Instructions Instructions: Syncope (ED), Diabetic Hyperglycemia (ED) Additional Instructions: Your blood sugar was noted to be high today in the emergency department. This is likely due to your noncompliance with your diabetes medications. Your blood sugar did improve with IV fluids and insulin here in the emergency department. The remainder of your blood tests and imaging today are reassuring and show no evidence of acute concerning or significant findings. Call your primary care doctor's office tomorrow to schedule a follow-up appointment for reevaluation within the next week to review your medications and confirm a medication treatment plan which can ensure your compliance. Return immediately to the emergency department if you develop any worsening or new concerning symptoms. Discharge Data Discharge Date/Time-TO BE ENTERED AT DEPARTURE: 11/17/22 05:25 Discharge Physician: Nan Sidhu Medical Decision Making 0120 -- 42-year-old female with a history of obesity, diabetes, hypothyroidism and schizophrenia presents for dizziness followed by syncopal episode with hyperglycemia noted per EMS. Glucose read as high on scene. Vitals within normal limits. Patient appears somewhat drowsy but able to answer questions appropriately. During my evaluation, she falls asleep but vitals made within normal limits during this episode. She has no obvious focal deficits. History and presentation does not appear consistent with PE, meningitis, CVA or ACS. Will obtain screening labs, urinalysis, CT head, chest x-ray and give fluids and continue to monitor. 0150 -- Labs and imaging reviewed. Normal white blood cell count. Glucose 710. Normal bicarb and reassuring anion gap. Normal pH on VBG. Urinalysis negative for ketones or infection. Imaging reviewed and negative for acute findings. Will give 8 units of insulin SC and continue to monitor. 0300 -- Glucose improved to 558. 0345 -- Glucose continue to improve after IV fluids/insulin, now 453. 0500 --patient given additional IV fluids and another 3 units of regular insulin SC. Her glucose has improved to 409. Patient states her baseline blood sugar is usually between 300 and 400. We will hold on additional IV fluids and insulin as I do not want to drop too low in a short amount of time as she initially was 710. Patient is awake and alert and appears in no acute distress. She was able to eat here and feels comfortable going home. Disposition decision made weighing the risks and benefits of hospitalization versus outpatient treatment, the risk for further decompensation, and the patient's wishes. Advised to follow up with the primary care doctor for re-evaluation. Usual and customary return precautions given prior to discharge. Medical Records Medical records reviewed: Yes I reviewed the patient's medical records. Imaging Data Radiologic Study: Radiologist's impression: CT Head Without Contrast Exam date and time: 11/17/2022 2:04 AM Age: 42 years old Clinical indication: Altered mental status/memory loss; Other: AMS TECHNIQUE: Imaging protocol: Computed tomography of the head without contrast. Radiation optimization: All CT scans at this facility use at least one of these dose optimization techniques: automated exposure control; mA and/or kV adjustment per patient size (includes targeted exams where dose is matched to clinical indication); or iterative reconstruction. COMPARISON: CT HEAD WO 12/22/2021 4:17 PM FINDINGS: Brain: Normal. No hemorrhage. Unremarkable white matter. No mass effect. Cerebral ventricles: No ventriculomegaly. Paranasal sinuses: Mucous retention cysts in the maxillary sinuses. Mastoid air cells: Visualized mastoid air cells are well aerated. Bones/joints: Unremarkable. No acute fracture. Soft tissues: Unremarkable. IMPRESSION: No acute intracranial findings. CT Cervical Spine Without Contrast Exam date and time: 11/17/2022 2:04 AM Age: 42 years old Clinical indication: Altered mental status/memory loss; Other: AMS TECHNIQUE: Imaging protocol: Computed tomography of the cervical spine without contrast. Radiation optimization: All CT scans at this facility use at least one of these dose optimization techniques: automated exposure control; mA and/or kV adjustment per patient size (includes targeted exams where dose is matched to clinical indication); or iterative reconstruction. COMPARISON: CT BRAIN NECK CTA 09/17/2021 12:38 PM FINDINGS: Bones/joints: No acute fracture. Normal alignment.? C5-C6 predominant discogenic change at least mild canal stenosis. Lungs: Lung apices are normal. Soft tissues: Unremarkable. IMPRESSION: No acute findings. XR Chest Exam date and time: 11/17/2022 2:10 AM Age: 42 years old Clinical indication: Other: AMS TECHNIQUE: Imaging protocol: Radiologic exam of the chest. Views: 2 views. COMPARISON: XR PORTABLE CHEST AP 03/10/2022 10:45 PM FINDINGS: Lungs: Unremarkable. No consolidation. Pleural spaces: Unremarkable. No pleural effusion. No pneumothorax. Heart/Mediastinum: Unremarkable. No cardiomegaly. Bones/joints: Unremarkable. IMPRESSION: No acute findings. Lab Data Lab results reviewed: Yes I reviewed the patient's lab results. Labs: Laboratory Tests Range/Units 11/17/22 11/17/22 11/17/22 01:09 01:15 01:15 WBC (4.4-10.8) 10^3/uL 6.00 RBC (3.93-5.22) 10^6/uL 4.45 Hgb (11.2-15.7) g/dL 15.1 Hct (36.0-46.0) % 42.3 MCV (80-95) fL 95 MCH (27.0-33.0) pg 33.9 H MCHC (32.0-36.0) % 35.7 RDW (11.7-14.6) % 11.8 Plt Count (130-400) 10^3/uL 201 MPV (8.0-11.0) fL 9.7 Immature Gran % 1.0 Neutrophils % 44.5 Lymphocytes % 45.7 Monocytes % 7.5 Eosinophils % 0.8 Basophils % 0.5 Nucleated RBC % (0.0-0.3) % 0.0 Absolute Neutrophils (1.2-6.7) 10^3/uL 2.67 Absolute Lymphocytes (1.2-3.4) 10^3/uL 2.74 Absolute Monocytes (0.1-0.8) 10^3/uL 0.45 Absolute Eosinophils (0.0-0.7) 10^3/uL 0.05 Absolute Basophils (0.0-0.2) 10^3/uL 0.03 VBG pH (7.31-7.41) VBG pCO2 (41-51) mmHg VBG pO2 mmHg VBG HCO3 (23-28) mmol/L VBG Total CO2 (24-29) mmol/L VBG O2 Saturation % VBG Base Excess (-2-3) mmol/L Sodium (136-145) mmol/L 131 L Potassium (3.5-5.1) mmol/L 3.8 Chloride (98-107) mmol/L 92 L Carbon Dioxide (21.0-32.0) mmol/L 27.8 Anion Gap (3-11) mmol/L 11.2 H BUN (7-18) mg/dL 9 Creatinine (0.55-1.02) mg/dL 1.0 Est GFR (CKD-EPI 2020) (mL/min/1.73m2) 72.13 Glucose (74-106) mg/dL 710 H* Calcium (8.5-10.1) mg/dL 9.1 Total Bilirubin (0.2-1.0) mg/dL 0.2 AST (15-37) U/L 22 ALT (14-59) U/L 56 Alkaline Phosphatase (46-116) U/L 406 H Total Protein (6.4-8.2) g/dL 7.7 Albumin (3.4-5.0) g/dL 3.4 Urine Color (Yellow) Yellow Urine Clarity (Clear) Clear Urine pH (5-8) 7.0 Ur Specific [place] (1.005-1.025) 1.015 Urine Protein (Negative) mg/dL Negative Urine Ketones (Negative) mg/dL Negative Urine Blood (Negative) Negative Urine Nitrite (Negative) Negative Urine Bilirubin (Negative) Negative Urine Urobilinogen (Up to 0.2) mg/dL 0.2 Ur Leukocyte Esterase (Negative) Negative Urine Glucose (Negative) mg/dL 500 H Range/Units 11/17/22 01:15 WBC (4.4-10.8) 10^3/uL RBC (3.93-5.22) 10^6/uL Hgb (11.2-15.7) g/dL Hct (36.0-46.0) % MCV (80-95) fL MCH (27.0-33.0) pg MCHC (32.0-36.0) % RDW (11.7-14.6) % Plt Count (130-400) 10^3/uL MPV (8.0-11.0) fL Immature Gran % Neutrophils % Lymphocytes % Monocytes % Eosinophils % Basophils % Nucleated RBC % (0.0-0.3) % Absolute Neutrophils (1.2-6.7) 10^3/uL Absolute Lymphocytes (1.2-3.4) 10^3/uL Absolute Monocytes (0.1-0.8) 10^3/uL Absolute Eosinophils (0.0-0.7) 10^3/uL Absolute Basophils (0.0-0.2) 10^3/uL VBG pH (7.31-7.41) 7.38 VBG pCO2 (41-51) mmHg 45 VBG pO2 mmHg 52 VBG HCO3 (23-28) mmol/L 26 VBG Total CO2 (24-29) mmol/L 23 L VBG O2 Saturation % 88 VBG Base Excess (-2-3) mmol/L 1 Sodium (136-145) mmol/L Potassium (3.5-5.1) mmol/L Chloride (98-107) mmol/L Carbon Dioxide (21.0-32.0) mmol/L Anion Gap (3-11) mmol/L BUN (7-18) mg/dL Creatinine (0.55-1.02) mg/dL Est GFR (CKD-EPI 2020) (mL/min/1.73m2) Glucose (74-106) mg/dL Calcium (8.5-10.1) mg/dL Total Bilirubin (0.2-1.0) mg/dL AST (15-37) U/L ALT (14-59) U/L Alkaline Phosphatase (46-116) U/L Total Protein (6.4-8.2) g/dL Albumin (3.4-5.0) g/dL Urine Color (Yellow) Urine Clarity (Clear) Urine pH (5-8) Ur Specific [place] (1.005-1.025) Urine Protein (Negative) mg/dL Urine Ketones (Negative) mg/dL Urine Blood (Negative) Urine Nitrite (Negative) Urine Bilirubin (Negative) Urine Urobilinogen (Up to 0.2) mg/dL Ur Leukocyte Esterase (Negative) Urine Glucose (Negative) mg/dL ECG Data Attestation: I personally reviewed and interpreted this ECG (s) as follows: Interpretation: Rate of 99, sinus, normal axis, no STEMI. HPI General Mode of arrival: EMS. Date/Time Provider Initiated Documentation: 11/17/22 01:08. Limitations to Documentation: no limitations. Information obtained by: patient. HPI Narrative: Patient is a 43-year-old female with a history of type 2 diabetes, hypertension, obesity, hypothyroidism and schizophrenia presents from home for episode of fainting while speaking with her neighbor followed by hypoglycemia noted per EMS. Patient states she was sitting in her bathroom talking with her neighbor when she felt dizzy and passed out. She states she did not sustain any injury at this time and denies any pain. EMS reported that her glucose was read as high . Patient states she has not taken her diabetes medications including her insulin for the past few months. Patient states she does not like giving herself daily injections. She states she has arranged through her primary care doctor to start once weekly injections for her diabetes. She states this will be assisted with her mental health team who help her with her medications. Patient states she feels better at this time. She denies any recent fever, vomiting, diarrhea, chest pain, difficulty breathing, abdominal pain, urinary symptoms, headache, blurry vision, neck or back pain. Related Data Home Medications Medication Instructions Recorded Confirmed levothyroxine 75 mcg tablet 75 mcg PO DAILY 03/15/16 11/17/22 gabapentin 300 mg capsule 300 mg PO QHS 10/25/18 11/17/22 aripiprazole lauroxil 882 mg/3.2 882 mg IM Q4W 07/12/21 11/17/22 mL suspension, ext.rel. IM syringe (Aristada) citalopram 20 mg tablet (Celexa) 20 mg PO DAILY 07/12/21 11/17/22 topiramate 50 mg tablet (Topamax) 50 mg PO BID 07/12/21 11/17/22 benztropine 2 mg tablet 2 mg PO HS 09/17/21 11/17/22 divalproex 250 mg tablet,extended 250 mg PO HS 09/17/21 11/17/22 release 24 hr divalproex 500 mg tablet,delayed 1,000 mg PO BID 09/17/21 11/17/22 release exenatide microspheres 2 mg/0.85 2 mg subcut QWEEK 09/17/21 11/17/22 mL subcutaneous auto-injector (Christine Hutchison) olanzapine 15 mg tablet 15 mg PO DAILY 09/17/21 11/17/22 dulaglutide 0.75 mg/0.5 mL 0.75 mg subcut QWEEK 03/15/22 11/17/22 subcutaneous pen injector (Steven) insulin detemir U-100 100 unit/mL 80 unit subcut BID 03/15/22 11/17/22 (3 mL) subcutaneous pen (Levemir FlexTouch U-100 Insulin) insulin lispro 200 unit/mL (3 mL) 4 unit subcut TID 03/15/22 11/17/22 subcutaneous pen (Humalog KwikPen U-200 Insulin) aripiprazole 30 mg tablet (Abilify) 15 mg PO DAILY 06/21/22 11/17/22 nystatin 100,000 unit/gram topical 1 applic topical BID #30 grams 07/26/22 11/17/22 cream pregabalin 200 mg capsule 200 mg PO BID #60 caps 09/08/22 11/17/22 Previous Rx's Medication Instructions Recorded nystatin 100,000 unit/gram topical 1 applic topical BID #30 grams 07/26/22 cream pregabalin 200 mg capsule 200 mg PO BID #60 caps 09/08/22 Allergies Allergy/AdvReac Type Severity Reaction Status Date / Time codeine Allergy Mild Unverified 09/08/22 14:45 General Stated Complaint: Diabetes CECILIA: 3 Review of Systems All systems reviewed & are unremarkable except as noted in HPI and below Constitutional Constitutional: Reports as per HPI, Denies chills and Denies fever(s) Eyes Eyes: Denies blurry vision ENT Ears, Nose, Mouth, and Throat: Reports dizziness, Denies sore throat and Denies throat swelling Cardiovascular Cardiovascular: Denies chest pain, Reports syncope and Denies dyspnea Respiratory Respiratory: Denies cough and Denies dyspnea Gastrointestinal Gastrointestinal: Denies abdominal pain, Denies diarrhea and Denies vomiting Genitourinary Genitourinary: Denies hematuria and Denies dysuria Musculoskeletal Musculoskeletal: Denies back pain and Denies numbness Integumentary/Breasts Skin/Breast: Denies lesions and Denies rash Neurologic Neurologic: Reports dizziness, Reports syncope, Denies localized weakness and Denies numbness Allergic/Immunologic Allergic/Immunologic: Denies throat swelling PFSH All Active Problems (Updated 11/17/22 @ 04:21 by Nan Sidhu DO) Hyperglycemia (Acute) Episode of syncope (Chronic) Noncompliance with medication regimen (Acute) Dysfunctional uterine bleeding (Acute) Pelvic mass in female (Acute) Oligomenorrhea (Acute) Uterine mass (Acute) Schizophrenia (Chronic) Diabetes mellitus type 2 in obese (Acute) Medical History Deviated nasal septum Drug overdose, intentional H/O suicide attempt History of hypothyroidism Non compliance w medication regimen RLS (restless legs syndrome) Schizoaffective disorder Trigeminal neuralgia of left side of face (01/03/18) Type 2 diabetes mellitus Yeast dermatitis Surgical History H/O pilonidal cyst Ligation of fallopian tube S/p breast implant removal Sep 2019 S/P breast implant, left S/P foot surgery Family History Mother Diabetes Father Heart disease Social History Smoking/Tobacco Use Status: Current-Occasional Tobacco Type: cigarettes and cigars Smoking risk assessment performed?: Yes Alcohol Intake: never Drug use: Socially Substance use type: marijuana Number of Children: 2 current occupation: Disabled Seatbelt use: always Do you feel safe at home: Yes Do you feel safe in your relationship?: Yes Female Reproductive History Menstrual Age of Menarche: 16 Duration of menses: other control method: permanent sterilization History History 2 Para 2 Hx # Term Pregnancies Multiple births Hx # Pregnancies Ectopic pregnancies AB induced Hx Number of Living Children AB spontaneous Past Pregnancies Del. Date GA/Weeks # Preg Succ Route Wgt Sex Labor Lgth Anesthesia Location Prov Complic 08/30/01 40 No Yes vaginal Female 03/25/02 40 No Yes vaginal Male Delivery Date: 08/30/01 [facility] Date: 03/25/02 Last Updated by: [facility] Exam Const General: cooperative and no acute distress Orientation: alert, awake and oriented x3 HENMT Head: normal to inspection Ears: hearing grossly normal bilaterally, external ears normal and TM's normal bilaterally General nose exam: external nose normal Face and sinus: normal facial exam Mouth: oral mucosae normal Eyes General: appearance normal, both eyes and all related structures Pupils: PERRL EOM: EOM intact bilaterally Neck Neck: normal visual inspection and No submandibular swelling Lymphatic: no lymphadenopathy noted Chest Chest: normal inspection of the chest and no tenderness Resp Effort & Inspection: normal respiratory effort and able to speak in complete sentences Auscultation: clear to auscultation bilaterally Cardio Rate: regular rate Rhythm: regular rhythm GI Inspection: normal to inspection Palpation: soft, not firm, not rigid and nontender Auscultation: hypoactive bowel sounds Back/Spine/Pelvis Thoracic/Lumbar Spine: thoracic and lumbar spine normal to inspection Pelvis: no pain with anterior-posterior compression Skin General skin exam: no rashes or lesions noted Neuro General: patient alert, patient awake, patient oriented x3, moves all extremities and no meningeal signs Cranial Nerves: CN's II-XI intact bilaterally Cognition: normal cognition Speech: speech normal Motor: muscle tone normal throughout and strength 5/5 throughout Sensory Exam: no sensory deficits noted Extrem General: normal to inspection, full ROM, capillary refill normal, no calf tenderness bilaterally and no edema Psych Appearance: grossly normal Mental Status: mental status grossly normal Speech and Movement: speech and movement normal Affect: normal affect Course Vital Signs Vital signs: Vital Signs Temperature 98.3 F 11/17/22 01:04 Pulse 100 H 11/17/22 01:04 Respiratory Rate 20 11/17/22 01:04 Blood Pressure 131/71 11/17/22 01:04 Pulse Oximetry 96 11/17/22 01:04 Temperature 98.3 F 11/17/22 01:04 Temperature Source Oral 11/17/22 01:04 Pulse 100 H 11/17/22 01:04 Respiratory Rate 20 11/17/22 01:04 Respiratory Effort Normal 11/17/22 01:08 Blood Pressure 131/71 11/17/22 01:04 Pulse Oximetry 96 11/17/22 01:04 Oxygen Delivery Method Room Air 11/17/22 01:04 Oxygen Flow Rate 0 11/17/22 01:04
[2022-11-17 01:20] LABS: BE (Venous) 1 mmol/L (-2-3); HCO3 (Venous) 26 mmol/L (23-28); O2 Sat (Venous) 88 %; TCO2 (Venous) 23 mmol/L (24-29); pCO2 (Venous) 45 mmHg (41-51); pH (Venous) 7.38 (7.31-7.41); pO2 (Venous) 52 mmHg
[2022-11-17 01:22] LABS: Abs Immature Grans 0.06 10^3/uL (0.0-0.06); Absolute Basophil Count 0.03 10^3/uL (0.0-0.2); Absolute Eosinophil Count 0.05 10^3/uL (0.0-0.7); Absolute Lymphocyte Count 2.74 10^3/uL (1.2-3.4); Absolute Monocyte Count 0.45 10^3/uL (0.1-0.8); Absolute Neutrophil Count 2.67 10^3/uL (1.2-6.7); Basophils % 0.5; Eosinophils % 0.8; HCT 42.3 % (36.0-46.0); HGB 15.1 g/dL (11.2-15.7); Lymphocytes % 45.7; MCH 33.9 pg (27.0-33.0); MCHC 35.7 % (32.0-36.0); MCV 95 fL (80-95); MPV 9.7 fL (8.0-11.0); Monocytes % 7.5; Neutrophils % 44.5; Platelet Count 201 10^3/uL (130-400); RBC 4.45 10^6/uL (3.93-5.22); RDW 11.8 % (11.7-14.6); RDW-SD 40.6 fL
[2022-11-17 01:37] LABS: Bilirubin Negative (Negative); Blood Negative (Negative); Clarity Clear (Clear); Glucose 500 mg/dL (Negative); Ketones Negative (Negative); Leukocyte Esterase Negative (Negative); Nitrite Negative (Negative); Specific Gravity 1.015 (1.005-1.025); Urobilinogen 0.2 mg/dL (Up to 0.2)
[2022-11-17 01:38] LABS: ALT 56 U/L (14-59); AST 22 U/L (15-37); Albumin 3.4 g/dL (3.4-5.0); Alkaline Phosphatase 406 U/L (46-116); Anion Gap 11.2 mmol/L (3-11); BUN 9 mg/dL (7-18); Bilirubin, Total 0.2 mg/dL (0.2-1.0); CO2 27.8 mmol/L (21.0-32.0); Calcium 9.1 mg/dL (8.5-10.1); Chloride 92 mmol/L (98-107); Estimated GFR 72.13 (mL/min/1.73m2); Potassium 3.8 mmol/L (3.5-5.1); Sodium 131 mmol/L (136-145); Total Protein 7.7 g/dL (6.4-8.2)
[2022-11-17 01:52] LABS: Glucose 710 mg/dL (74-106)
--- NOTE | 2022-11-17 02:05 | DI.RAD_ITS ---
Exam(s) XR CHEST 2V PA LATERAL EXAM: XR CHEST 2V PA LATERAL CLINICAL HISTORY: syncope, r/o acute disease TECHNIQUE: 2D digital imaging was performed of the chest. Two images were obtained. PA and lateral views were obtained. COMPARISON: CR XR CHEST 2V PA LATERAL from 12/22/2021 CR,XR XR PORTABLE CHEST AP from 03/10/2022 FINDINGS: MEDIASTINUM: Normal. HEART: Normal. PULMONARY VASCULATURE: Normal. LUNGS: Clear. PLEURAL SPACE: No pleural effusion or pneumothorax. BONE:Within normal limits for the patient's age. OTHER FINDINGS:Normal. IMPRESSION: No acute pulmonary findings. DATA REPOSITORY: RADIATION DOSE DELIVERED:
--- NOTE | 2022-11-17 02:15 | DI.CT_ITS ---
Exam(s) CT HEAD CERVICAL SPINE WO EXAM: CT HEAD CERVICAL SPINE WO CLINICAL HISTORY: altered mental status, r/o acute disease. TECHNIQUE: Imaging Protocol: Axial computed tomography images with coronal and sagittal reformatted images were created and reviewed COMPARISON: CT CT BRAIN NECK CTA from 09/17/[address] HEAD WO from 12/22/2021 FINDINGS: CT Head: Ventricles and Extra axial spaces: Normal in size and morphology for the patient's age. Hemorrhage: None. Cerebral parenchyma: Normal. Midline shift: None. Brainstem/Cerebellum: Normal. Calvarium: Normal. Visualized Paranasal sinuses/Mastoids: There is mucosal thickening in the maxillary sinuses. Mucous retention cyst or polyp in the maxillary sinuses. The remaining visualized paranasal sinuses are matti ar. The mastoid air cells are clear. Soft Tissues: Unremarkable. CT Cervical Spine: Bones: No acute fracture or subluxation. There is reversal of the normal cervical lordosis. This may be due to patient positioning or muscle spasm. Soft Tissues: Unremarkable. Lung Apices: Clear. IMPRESSION: 1. No acute intracranial process. 2. No acute fracture or subluxation in the cervical spine. RADIATION DOSE DELIVERED: 1,374.42mGy.cm Total DLP DATA REPOSITORY: All CT scans at this facility are submitted to the National Radiology Data Registry (NRDR) Dose Index Registry (DIR) with the [employer] ([employer]). RADIATION OPTIMIZATION: All CT scans at this facility use at least one of these dose optimization te chniques: automated exposure control; mA and/or kV adjustment per patient size (includes targeted exa ms where dose is matched to clinical indication); or iterative reconstruction.
[2022-11-17] MEDS: Insulin REGULAR-Human 100 UNITS/ML UNIT 8 UNITS SC (02:20)
[2022-11-17] MEDS: Normal Saline 1,000 ML 1000 ML IV ×2 (02:25→03:15)
--- NOTE | 2022-11-17 02:35 | DI.VRAD_ITS ---
PROCEDURE INFORMATION: Exam: CT Head Without Contrast Exam date and time: 11/17/2022 2:04 AM Age: 42 years old Clinical indication: Altered mental status/memory loss; Other: AMS TECHNIQUE: Imaging protocol: Computed tomography of the head without contrast. Radiation optimization: All CT scans at this facility use at least one of these dose optimization techniques: automated exposure control; mA and/or kV adjustment per patient size (includes targeted exams where dose is matched to clinical indication); or iterative reconstruction. COMPARISON: CT HEAD WO 12/22/2021 4:17 PM FINDINGS: Brain: Normal. No hemorrhage. Unremarkable white matter. No mass effect. Cerebral ventricles: No ventriculomegaly. Paranasal sinuses: Mucous retention cysts in the maxillary sinuses. Mastoid air cells: Visualized mastoid air cells are well aerated. Bones/joints: Unremarkable. No acute fracture. Soft tissues: Unremarkable. IMPRESSION: No acute intracranial findings. PROCEDURE INFORMATION: Exam: CT Cervical Spine Without Contrast Exam date and time: 11/17/2022 2:04 AM Age: 42 years old Clinical indication: Altered mental status/memory loss; Other: AMS TECHNIQUE: Imaging protocol: Computed tomography of the cervical spine without contrast. Radiation optimization: All CT scans at this facility use at least one of these dose optimization techniques: automated exposure control; mA and/or kV adjustment per patient size (includes targeted exams where dose is matched to clinical indication); or iterative reconstruction. COMPARISON: CT BRAIN NECK CTA 09/17/2021 12:38 PM FINDINGS: Bones/joints: No acute fracture. Normal alignment. C5-C6 predominant discogenic change at least mild canal stenosis. Lungs: Lung apices are normal. Soft tissues: Unremarkable. IMPRESSION: No acute findings. Dictated and Authenticated by: Matthew Crouch MD. Ordering:ADEOLA Montana MD
--- NOTE | 2022-11-17 02:36 | DI.VRAD_ITS ---
PROCEDURE INFORMATION: Exam: XR Chest Exam date and time: 11/17/2022 2:10 AM Age: 42 years old Clinical indication: Other: AMS TECHNIQUE: Imaging protocol: Radiologic exam of the chest. Views: 2 views. COMPARISON: XR PORTABLE CHEST AP 03/10/2022 10:45 PM FINDINGS: Lungs: Unremarkable. No consolidation. Pleural spaces: Unremarkable. No pleural effusion. No pneumothorax. Heart/Mediastinum: Unremarkable. No cardiomegaly. Bones/joints: Unremarkable. IMPRESSION: No acute findings. Dictated and Authenticated by: Matthew Crouch MD. Ordering:ADEOLA Montana MD
[2022-11-17] MEDS: Insulin REGULAR-Human 100 UNITS/ML UNIT SC (04:23)
[2022-11-17] MEDS: Normal Saline 250 ML 500 ML IV (04:31)
== END 2022-11-17 05:25 | disposition home or self-care (01) ==
PROVIDERS: Emergency Provider Physician Assistant; PCP Nurse Practitioner Family
DX: E11.65 Type 2 diabetes mellitus with hyperglycemia (principal); R55 Syncope and collapse; E03.9 Hypothyroidism, unspecified; I10 Essential (primary) hypertension; Z79.4 Long term (current) use of insulin; Z91.14 Patient's other noncompliance with medication regimen
CPT/HCPCS: 36416; 80053; 81025; 82805; 82962; 93005; 96361; 96372; 99284; 70450; 71046; 72125; 81003; 85025; 93010; 99285

== ENCOUNTER 2023-01-05 13:27 | Emergency (ER) | payer MEDICAID, SELFPAY ==
[2023-01-05] VITALS (9 sets, daily range): BP systolic 105–120; BP diastolic 61–73; PULSE 77–103; RESP 12–18; TEMP 36.8; O2SAT 94–97
--- NOTE | 2023-01-05 13:30 | DI.CT_ITS ---
Exam(s) CT HEAD WO EXAM: CT HEAD WO CLINICAL HISTORY: ams. TECHNIQUE: Imaging Protocol: Axial computed tomography images with coronal and sagittal reformatted images were created and reviewed COMPARISON: CT CT HEAD CERVICAL SPINE WO from 11/17/2022 FINDINGS: Ventricles and Extra axial spaces: Normal in size and morphology for the patient's age. Hemorrhage: None. Cerebral parenchyma: Normal. Midline shift: None. Brainstem/Cerebellum: Normal. Calvarium: Normal. Visualized Paranasal sinuses/Mastoids: Clear. Soft Tissues: Unremarkable. IMPRESSION: 1. No acute intracranial process. 2. Findings were discussed with the emergency department at 3:22 p.m. on 01/05/2023. RADIATION DOSE DELIVERED: 836.18mGy.cm Total DLP DATA REPOSITORY: All CT scans at this facility are submitted to the National Radiology Data Registry (NRDR) Dose Index Registry (DIR) with the [employer] ([employer]). RADIATION OPTIMIZATION: All CT scans at this facility use at least one of these dose optimization te chniques: automated exposure control; mA and/or kV adjustment per patient size (includes targeted exa ms where dose is matched to clinical indication); or iterative reconstruction.
--- NOTE | 2023-01-05 13:44 | DI.RAD_ITS ---
Exam(s) XR PORTABLE CHEST AP EXAM: XR PORTABLE CHEST AP CLINICAL HISTORY: ams TECHNIQUE: 2D digital imaging was performed of the chest. One image was obtained. An AP view was ob tained. COMPARISON: CR,XR XR PORTABLE CHEST AP from 03/10/2022 FINDINGS: MEDIASTINUM: Normal. HEART: Normal. PULMONARY VASCULATURE: Normal. LUNGS: Clear. PLEURAL SPACE: No pleural effusion or pneumothorax. BONE:Within normal limits for the patient's age. OTHER FINDINGS:Normal. IMPRESSION: No acute pulmonary findings. DATA REPOSITORY: RADIATION DOSE DELIVERED:
[2023-01-05] MEDS: Naloxone 0.4 MG/ML VIAL 1 MG IVP (13:45)
[2023-01-05] MEDS: Lactated Ringers 1,000 ML 1000 ML IV (13:45)
--- NOTE | 2023-01-05 13:45 | RT.EKG_ITS ---
APPROVED REPORT Exam: Resting ECG Reason for Exam: [facility] Patient Location: E HR:90 bpm ECG Measurements Heart Rate 90 AXIS IA 170 P 17 QRSd 84 QRS 30 QT 367 T 29 QTc 450 Conclusion Sinus rhythm...normal P axis, V-rate 60- 99. Sinus. Normal axis. Normal intervals. No STEMI.
[2023-01-05 13:50] LABS: Abs Immature Grans 0.08 10^3/uL (0.0-0.06); Absolute Basophil Count 0.05 10^3/uL (0.0-0.2); Absolute Eosinophil Count 0.49 10^3/uL (0.0-0.7); Absolute Lymphocyte Count 2.66 10^3/uL (1.2-3.4); Absolute Monocyte Count 0.38 10^3/uL (0.1-0.8); Absolute Neutrophil Count 2.92 10^3/uL (1.2-6.7); Basophils % 0.8; Eosinophils % 7.4; Immature Grans % 1.2; Lymphocytes % 40.4; MCH 33.2 pg (27.0-33.0); MCV 95 fL (80-95); Monocytes % 5.8; Neutrophils % 44.4; RBC 4.22 10^6/uL (3.93-5.22); RDW 11.9 % (11.7-14.6); RDW-SD 41.2 fL; WBC 6.58 10^3/uL (4.4-10.8)
--- OUTSIDE RECORDS SUMMARY | 2023-01-05 14:03 | XMS_ITS | CCD ---
Author Name Unknown Address [address] [place] [address] [phone] Organization Unknown Address [address] [place] [address] [phone] Care Team Providers Care Staff Research Associate Name Role Phone JENNY RUBIN Attending Physician [phone] JENNY RUBIN Er Physician [phone] AMARA Lopez Registered Nurse [phone] Vital Signs Vital Sign Value Unit Date/Time Recent/Initial ? BMI (Body Mass Index) 30.65 kg/m^2 08/04/2022 11: 32 Initial VS Weight Measured 173 lbs 08/04/2022 11:32 Ini tial VS Height 63 in 08/04/2022 11:32 Initial VS BSA (Body Surface Area) 1.87 m^2 08/04/2022 1 1:32 Initial VS BP Systolic 140 mmHg 08/04/2022 11:32 Initial VS BP Diastolic 96 mmHg 08/04/2022 11:32 Initia l VS Respiratory Rate 16 bpm 08/04/2022 11:32 In itial VS Heart Rate 84 bpm 08/04/2022 11:32 Initial VS O2 % BldC Oximetry 100 % 08/04/2022 11:32 Initial VS Body Temperature 36.3 degrees 08/04/2022 11:32 In itial VS BP Systolic 122 mmHg 08/04/2022 16:03 Most Re cent VS BP Diastolic 74 mmHg 08/04/2022 16:03 Most R ecent VS Respiratory Rate 16 bpm 08/04/2022 16:[address] Recent VS Heart Rate 88 bpm 08/04/2022 16:03 Most Rec ent VS O2 % BldC Oximetry 99 % 08/04/2022 16:03 Most Recent VS Body Temperature 36.6 degrees 08/04/2022 16:[address] Recent VS Allergies Allergy Code Allergy Type Reaction Status CODEINE {Clinical monitoring unavailable} 0 Drug allergy Active Procedures Unknown or Not Available. History of Immunizations Unknown or Not Available. Problems Unknown or Not Available. Results ACETAMINOPHEN* - Collect Carlos e/Time: 08/04/2022 09:50 Test Name Code Test Result Test Units Test Ref Rang e ACETAMINOPHEN 3298-7 <2.0 ug/mL L=10.0 H=20 .0 ALCOHOL (ETHANOL)* - Collect Date/Time: 08/04/2022 09:50 Test Name Code Test Result Test Units Test Ref Rang e ALCOHOL (ETHANOL) 61392-2 <3 mg/dL COMPREHENSIVE METABOLIC PANE L (CMP) - Collect Date/Time: 08/04/2022 09:50 Test Name Code Test Result Test Units Test Ref Rang e GLUCOSE 2345-7 380 mg/dL L=70 H=116 BUN 3094-0 11 mg/dL L=6 H=25 CREATININE 2160-0 0.64 mg/dL L=0.51 H=0.95 SODIUM SERUM 2951-2 137 mmol/L L=136 H=145 POTASSIUM SERUM 2823-3 3.9 mmol/L L=3.4 H=5 .2 CHLORIDE SERUM 2075-0 101 mmol/L L=96 H=110 CARBON DIOXIDE (CO2) 2028-9 23 mmol/L L=22 H=34 ANION GAP 90912-8 12.6 mmol/L CALCIUM SERUM 33050-0 9.3 mg/dL L=8.2 H=10. 2 BILIRUBIN TOTAL 1975-2 0.2 mg/dL L=0.0 H=1 .3 ALK. PHOS. 6768-6 226 U/L L=46 H=116 SGOT (AST) 1920-8 27 U/L L=15 H=37 SGPT (ALT) 1742-6 53 U/L L=12 H=78 TOTAL PROTEIN 2885-2 7.9 gm/dL L=6.0 H=8.0 ALBUMIN 1751-7 3.4 gm/dL L=3.4 H=5.0 AGE 41 years eGFR (non-Afr.Amer.) 21992-1 102 mL/min eGFR (Afr-Ukrainian) 92863-2 >120 mL/min GLUCOSE FINGER/HEEL CAPILLAR Y - Collect Date/Time: 08/04/2022 10:44 Test Name Code Test Result Test Units Test Ref Rang e GLUCOSE CAP 328 mg/dL L=70 H=116 GLUCOSE FINGER/HEEL CAPILLAR Y - Collect Date/Time: 08/04/2022 10:18 Test Name Code Test Result Test Units Test Ref Rang e GLUCOSE CAP 266 mg/dL L=70 H=116 MAGNESIUM SERUM* - Collect D ate/Time: 08/04/2022 09:50 Test Name Code Test Result Test Units Test Ref Rang e MAGNESIUM 57278-4 1.9 mg/dL L=1.8 H=2.4 SALICYLATE SERUM* - Collect Date/Time: 08/04/2022 09:50 Test Name Code Test Result Test Units Test Ref Rang e SALICYLATE 4024-6 3.5 mg/dL L=15.0 H=30.0 TROPONIN HIGH SENSITIVITY* - Collect Date/Time: 08/04/2022 09:50 Test Name Code Test Result Test Units Test Ref Rang e TROPONIN HS 5.6 pg/mL L=0.0 H=60.4 Specimen seq. ADM. N/A VALPROIC ACID (DEPAKENE)* - Collect Date/Time: 08/04/2022 09:50 Test Name Code Test Result Test Units Test Ref Rang e VALPROATE 99 ug/mL L=50 H=100 CBC W/ DIFFERENTIAL* - Colle ct Date/Time: 08/04/2022 09:50 Test Name Code Test Result Test Units Test Ref Rang e WBC 6690-2 6.93 th/cmm L=5.00 H=10.00 NEUT % 31.5 % L=40.0 H=80.0 LYMPH % 56.4 % L=10.0 H=50.0 MONO % 70620-0 9.1 % L=2.0 H=12.0 EOS % 1.9 % L=0.0 H=8.0 BASO % 0.4 % L=0.0 H=3.0 IG % 2514-8 0.7 % L=0.0 H=1.1 NRBC % 42874-2 0.0 % L=0.0 H=0.0 NEUT abs count 751-8 2.2 th/cmm L=1.6 H=8. 4 LYMPH abs count 731-0 3.9 th/cmm L=1.5 H=4 .0 MONO abs count 742-7 0.6 th/cmm L=0.2 H=1. 0 EOS abs count 711-2 0.1 th/cmm L=0.0 H=0.5 BASO abs count 704-7 0.0 th/cmm L=0.0 H=0. 2 IG abs count 21670-6 0.1 th/cmm L=0.0 H=0.1 NRBC abs count 51450-1 0.0 mil/cmm L=0.0 H=0. 0 RBC 789-8 4.46 mil/cmm L=3.90 H=5.40 HEMOGLOBIN 718-7 15.0 gm/dL L=12.0 H=16.0 HEMATOCRIT 4544-3 43 % L=37 H=47 MCV 787-2 96 fL L=82 H=92 MCH 785-6 33.6 pg L=27.0 H=31.0 MCHC 786-4 35.0 % L=32.0 H=36.0 RDW-SD 788-0 43.5 fL L=39.0 H=49.0 PLATELET COUNT 777-3 248 th/cmm L=150 H=45 0 DRUG SCN 13 PANEL (MEDTOX)* - Collect Date/Time: 08/04/2022 11:09 Test Name Code Test Result Test Units Test Ref Rang e CANNABINOIDS 51153-4 NEGATIVE N/A Cutoff = 50 ng/mL PHENCYCLIDINE 88309-0 NEGATIVE N/A Cutoff = 25 ng/mL COCAINE 31981-1 NEGATIVE N/A Cutoff = 150 n g/mL METHAMPHETAMINES 96391-9 NEGATIVE N/A Cutoff = 500 ng/mL OPIATES 99739-2 NEGATIVE N/A Cutoff = 100 n g/mL AMPHETAMINES 09119-7 NEGATIVE N/A Cutoff = 500 ng/mL BENZODIAZEPINES 18646-4 NEGATIVE N/A Cutoff = 150 ng/mL TRICYCLIC ANTIDEP 3533-7 NEGATIVE N/A Cutoff = 300 ng/mL METHADONE 08232-1 NEGATIVE N/A Cutoff = 200 n g/mL BARBITURATES 72603-8 NEGATIVE N/A Cutoff = 200 ng/mL OXYCODONE 21971-4 NEGATIVE N/A Cutoff = 100 n g/mL PROPOXYPHENE 84389-7 NEGATIVE N/A Cutoff = 300 ng/mL BUPRENORPHINE 3414-0 NEGATIVE N/A Cutoff = 10 mg/mL TEST QUAL (SERUM) - Collect Date/Time: 08/04/2022 09:50 Test Name Code Test Result Test Units Test Ref Rang e TEST 2105-3 NEGATIVE N/A URINALYSIS WITH REFLEX CULT IF POSITIVE* - Collect Date/Time: 08/04/2022 11:09 Test Name Code Test Result Test Units Test Ref Rang e COLLECTION MODE: 99258-4 CLEAN CATCH N/A Color 5778-6 YELLOW N/A yellow Appearance 5767-9 CLEAR N/A clear Glucose urine 25170-8 >=1000 N/A negative mg /dl Bilirubin 5770-3 NEGATIVE N/A negative Ketones 2514-8 15 N/A negative mg/dl Spec gravity 5811-5 1.010 N/A 1.003 - 1.03 0 pH urine 2756-5 6.5 N/A 5.0 - 7.0 Protein 75630-2 NEGATIVE N/A negative mg/dl Urobilinogen 49250-5 0.2 N/A <or= 1 EU/dl Nitrite. 5802-4 NEGATIVE N/A negative Blood 5794-3 NEGATIVE N/A negative Leukocytes. NEGATIVE N/A negative MICROSCOPIC NOT INDICAT N/A ORDER VENOUS BLOOD GAS* - Co llect Date/Time: 08/04/2022 09:50 Test Name Code Test Result Test Units Test Ref Rang e pH (venous) 2746-6 7.35 L=7.38 H=7.46 PCO2 (venous) 2703-7 42.0 mm Hg L=41.0 H=51 .0 PO2 (venous) 2705-2 152 mm Hg L=30 H=50 HCO3 1960-4 23 mmol/L L=22 H=26 TCO2 (venous) 3533-7 25 mmol/L L=22 H=28 BASE EXCESS (venous) 3097-3 -2 mmol/L L=-2 H=3 Specimen type: VENOUS N/A Active Medications Medications Administered During Visit Medication Dose Units Frequency Route Date/Time of Last Dose IBUPROFEN TABLET: 600MG 600 MG X1 PO 08/04/2022 15:24 Encounters Encounter Diagnosis Diagnosis Code Start Date Epilepsy, unspecified, not i ntractable, without status epilepticus [id number] 08/04/2022 Social History Unknown or Not Available. Patient Decision Aids Unknown or Not Available. Discharge Instructions You were admitted to [facility] on 08/04/2022 10:14 with a principal diagnosis of Epilepsy, unspecified, not intractable, without status epilepticus You had the following tests done:DRUG SCN 13 PANEL (MEDTOX)*URINALYSIS WITH REFLEX CULT IF POSITIVE*GLUCOSE FINGER/HEEL CAPILLARYGLUCOSE FINGER/HEEL CAPILLARYACETAMINOPHEN*ALCOHOL (ETHANOL)*CBC W/ DIFFERENTIAL*COMPREHENSIVE METABOLIC PANEL (CMP)MAGNESIUM SERUM*ORDER VENOUS BLOOD GAS* TEST QUAL (SERUM)SALICYLATE SERUM*TROPONIN HIGH SENSITIVITY*VALPROIC ACID (DEPAKENE)* You were discharged from [facility] on 08/04/2022 16:26 Should you have any questions prior to discharge, please contact a member of your healthcare team. If you have left the hospital and have any questions, please contact your primary care physician. Chief Complaint and Reason For Visit Chief Complaint Date of Onset UNRESPONSIVE Function Status Unknown or Not Available. Plan of Care Unknown or Not Available. Referral/Transition of Care Unknown or Not Available.
[2023-01-05 14:05] LABS: BE (Venous) -1 mmol/L (-2-3); HCO3 (Venous) 24 mmol/L (23-28); O2 Sat (Venous) 96 %; TCO2 (Venous) 22 mmol/L (24-29); pCO2 (Venous) 41 mmHg (41-51); pH (Venous) 7.38 (7.31-7.41); pO2 (Venous) 65 mmHg
[2023-01-05 14:07] LABS: Diff Comment Diff Reviewed; RBC Morphology Normal
[2023-01-05 14:20] LABS: Ammonia 65 umol/L (11-32)
[2023-01-05 14:24] LABS: ALT 26 U/L (14-59); AST 17 U/L (15-37); Alkaline Phosphatase 220 U/L (46-116); Anion Gap 10.4 mmol/L (3-11); BUN 10 mg/dL (7-18); Bilirubin, Total 0.2 mg/dL (0.2-1.0); CO2 23.6 mmol/L (21.0-32.0); CREATININE 0.8 mg/dL (0.55-1.02); Calcium 8.8 mg/dL (8.5-10.1); Chloride 103 mmol/L (98-107); Estimated GFR 94.28 (mL/min/1.73m2); Lipase 52 U/L (16-77); Potassium 4.2 mmol/L (3.5-5.1); Sodium 137 mmol/L (136-145); Total Protein 6.9 g/dL (6.4-8.2)
[2023-01-05 14:25] LABS: Glucose 680 mg/dL (74-106)
[2023-01-05 14:33] LABS: TSH (W/Ref FT4) 1.85 uIU/mL (0.36-3.74); Troponin I < 50 ng/L (<or=60)
[2023-01-05 14:57] LABS: Bilirubin Negative (Negative); Blood Negative (Negative); Clarity Clear (Clear); Glucose 500 mg/dL (Negative); Ketones Trace mg/dL (Negative); Leukocyte Esterase Negative (Negative); Nitrite Negative (Negative); Specific Gravity 1.015 (1.005-1.025); Urobilinogen 0.2 mg/dL (Up to 0.2)
--- NOTE | 2023-01-05 15:07 | ED.GENADUL_ITS ---
Discharge Plan Disposition Patient Disposition: Home Discharge Details Clinical Impression: Hyperglycemia due to diabetes mellitus, Schizophrenia, Non-compliant behavior, Acute alteration in mental status Primary Care Provider: Antoni Ohara ED Provider: Vishal Durán Home Meds and New Rx's Prescriptions: Continued gabapentin 300 mg capsule 300 mg PO QHS nystatin 100,000 unit/gram cream 1 applic topical BID Qty: 30 3RF Patient Comments: not taking pregabalin 200 mg capsule 200 mg PO BID Qty: 60 5RF levothyroxine 75 MCG tablet 75 mcg PO DAILY benztropine 2 mg Tablet 2 mg PO HS divalproex 250 mg Tablet Extended Release 24 Hr 250 mg PO HS divalproex 500 mg Tablet,Delayed Release (Dr/Ec) 1,000 mg PO BID olanzapine 15 mg Tablet 15 mg PO DAILY Levemir FlexTouch U-100 Insuln 100 unit/mL (3 mL) insulin pen 80 unit SUBCUT BID Patient Comments: not taking Humalog KwikPen Insulin 200 unit/mL (3 mL) insulin pen 4 unit SUBCUT TID Patient Comments: not taking docusate sodium 100 mg capsule 100 mg PO DAILY citalopram [Celexa] 20 mg tablet 20 mg PO DAILY Patient Comments: Take 1 tablet by mouth every morning topiramate [Topamax] 50 mg tablet 50 mg PO BID Patient Comments: Take 1 tablet by mouth twice a day aripiprazole [Abilify] 30 MG tablet 15 mg PO DAILY No Action Trulicity 0.75 mg/0.5 mL pen injector 0.75 mg subcut QWEEK Patient Comments: not taking Bydureon BCise 2 mg/0.85 mL Auto-Injector 2 mg SUBCUT QWEEK Patient Comments: not taking Aristada 882 mg/3.2 mL suspension,extended rel syring 882 mg IM Q4W Patient Comments: not taking Rx Instructions: every 4 weeks Discharge Instructions Instructions: Altered Mental Status (ED), Diabetic Hyperglycemia (ED) Additional Instructions: At this time your symptoms are improving and a lot of your symptoms may be attributed to the marijuana usage along with your high blood sugar. Please refrain from mental altering substances along with control your sugar using your insulin that you do have at home along with monitoring your glucose with your home monitor. If you develop any new or significant worsening of symptoms return immediately to the emergency department for reassessment otherwise we have put in a referral for you to follow-up with your primary care provider in the next couple days. Referrals: YURI HARRELL NP [ NON-[facility] STAFF PHYSICIAN] - 2 days Discharge Data Discharge Date/Time-TO BE ENTERED AT DEPARTURE: 01/05/23 18:24 Medical Decision Making <CECI Varela - Last Filed: 01/07/23 09:31> 42-year-old female presents with alteration in mental status, initially responsive to pain only Given 1 dose of 1 mg Narcan, became responsive immediately after this, uncertain as to relation to Narcan administration, no history of opiate abuse documented, pending toxin at this time Then alert and oriented x2 Suspect toxic metabolic encephalopathy in the presence of hyperglycemia Periods of syncopal episodes in the emergency department Blood glucose noted to be in the 600s No evidence of diabetic ketoacidosis, concern for HHS, will start insulin drip, fluids Will order CT head and tox screen Urinalysis does not show evidence of significant acute abnormality, per 10 pending proximal cane at this time Repeat blood sugar prior to initiating insulin drip was 480, this is curious that she only received 1 L of NS We will recheck in 1 hour At this time, we will observe patient closely, she is a noncompliant schizophrenic with her medication and this is a chronic issue If her symptoms resolved completely and her blood sugars stable, it is not likely unreasonable to despite the patient home with close outpatient follow-up If she continues to remain confused and have episodes of syncope, she will likely need admission for monitoring and further investigation Care be transitioned to Ricky Durán, nurse practitioner pending repeat glucose and disposition Medical Records Medical records reviewed: Yes I reviewed the patient's medical records. Lab Data Lab results reviewed: Yes I reviewed the patient's lab results. <Vishal Durán NP - Last Filed: 01/05/23 20:26> 42-year-old female presents with alteration in mental status, initially responsive to pain only Given 1 dose of 1 mg Narcan, became responsive immediately after this, uncertain as to relation to Narcan administration, no history of opiate abuse documented, pending toxin at this time Then alert and oriented x2 Suspect toxic metabolic encephalopathy in the presence of hyperglycemia Periods of syncopal episodes in the emergency department Blood glucose noted to be in the 600s No evidence of diabetic ketoacidosis, concern for HHS, will start insulin drip, fluids Will order CT head and tox screen Urinalysis does not show evidence of significant acute abnormality, per 10 pending proximal cane at this time Repeat blood sugar prior to initiating insulin drip was 480, this is curious that she only received 1 L of NS We will recheck in 1 hour At this time, we will observe patient closely, she is a noncompliant schizophrenic with her medication and this is a chronic issue If her symptoms resolved completely and her blood sugars stable, it is not likely unreasonable to despite the patient home with close outpatient follow-up If she continues to remain confused and have episodes of syncope, she will likely need admission for monitoring and further investigation Care be transitioned to Ricky Durán, nurse practitioner pending repeat glucose and disposition 1600-signout received from Marilee ORNELAS. Please see previous documentation and plan of care. 1615-received report from nurse that patient's glucose is now 407 and patient is requesting to go home as she states she typically runs between 3 and 400. Reassessed patient and she is alert and oriented and acting at baseline. She did receive 8 units of IV insulin. We are still pending a couple labs small give patient additional fluid bolus given review of previous emergency department visits with similar presentation shows usually a couple liters of fluid bolus with IV insulin resolves her complaints that are similar to today's. Patient is agreeable to this plan of care. We will continue to monitor Remainder of labs came back and patient has no acute intoxication, blood sugar continue to improve, and second troponin negative. Reassessed patient and she states continued improvement of symptoms. Did offer admission given her hypergl ycemia and altered mental status. With further discussion patient states that she would prefer to go home. Did discuss with patient glucose control which she states that she had been on Ozempic but has not been on this for a while. She does state that she has regular insulin at home and has used this in the past which she was encouraged to use this pending primary care follow-up which referral was placed. After discussion of diagnosis and plan of care patient has no further needs, questions, or concerns and states clear understanding to return to the emergency department for any worsening symptoms. This documentation was generated using [employer] system, please disregard any oddities of phrase or misspellings. HPI <CECI Varela - Last Filed: 01/07/23 09:31> General Date/Time Provider Initiated Documentation: 01/05/23 13:31 . HPI Narrative: This 42-year-old female with history of diabetes, mood disorder, hypothyroidism presents to this facility with episode of unresponsiveness. She reportedly was smoking marijuana in the backyard and became unresponsive so EMS was called. She denies any additional illicit drug use. Blood sugar in the field was was unreadable. Denies any pain complaints. States she has not taken her insulin for the past month as she is transitioning providers. Denies any chance of or any additional complaints at this time. No reported seizure-like activity. Related Data Home Medications Medication Instructions Recorded Confirmed levothyroxine 75 mcg tablet 75 mcg PO DAILY 03/15/16 01/05/23 gabapentin 300 mg capsule 300 mg PO QHS 10/25/18 01/05/23 aripiprazole lauroxil 882 mg/3.2 882 mg IM Q4W 07/12/21 11/17/22 mL suspension, ext.rel. IM syringe (Aristada) citalopram 20 mg tablet (Celexa) 20 mg PO DAILY 07/12/21 01/05/23 topiramate 50 mg tablet (Topamax) 50 mg PO BID 07/12/21 01/05/23 benztropine 2 mg tablet 2 mg PO HS 09/17/21 01/05/23 divalproex 250 mg tablet,extended 250 mg PO HS 09/17/21 01/05/23 release 24 hr divalproex 500 mg tablet,delayed 1,000 mg PO BID 09/17/21 01/05/23 release exenatide microspheres 2 mg/0.85 2 mg subcut QWEEK 09/17/21 11/17/22 mL subcutaneous auto-injector (Christine Hutchison) olanzapine 15 mg tablet 15 mg PO DAILY 09/17/21 01/05/23 dulaglutide 0.75 mg/0.5 mL 0.75 mg subcut QWEEK 03/15/22 11/17/22 subcutaneous pen injector (Steven) insulin detemir U-100 100 unit/mL 80 unit subcut BID 03/15/22 11/17/22 (3 mL) subcutaneous pen (Levemir FlexTouch U-100 Insulin) insulin lispro 200 unit/mL (3 mL) 4 unit subcut TID 03/15/22 11/17/22 subcutaneous pen (Humalog KwikPen U-200 Insulin) aripiprazole 30 mg tablet (Abilify) 15 mg PO DAILY 06/21/22 11/17/22 nystatin 100,000 unit/gram topical 1 applic topical BID #30 grams 07/26/22 11/17/22 cream pregabalin 200 mg capsule 200 mg PO BID #60 caps 09/08/22 01/05/23 docusate sodium 100 mg capsule 100 mg PO DAILY 01/05/23 01/05/23 Previous Rx's Medication Instructions Recorded nystatin 100,000 unit/gram topical 1 applic topical BID #30 grams 07/26/22 cream pregabalin 200 mg capsule 200 mg PO BID #60 caps 09/08/22 Allergies Allergy/AdvReac Type Severity Reaction Status Date / Time codeine Allergy Mild Unverified 01/05/23 13:31 General Stated Complaint: AMS/LOC CECILIA: 2 PFSH <CECI Varela - Last Filed: 01/07/23 09:31> All Active Problems (Updated 01/05/23 @ 18:02 by Vishal Durán NP) Hyperglycemia due to diabetes mellitus (Acute) Non-compliant behavior (Acute) Acute alteration in mental status (Acute) Dysfunctional uterine bleeding (Acute) Pelvic mass in female (Acute) Oligomenorrhea (Acute) Uterine mass (Acute) Schizophrenia (Chronic) Diabetes mellitus type 2 in obese (Acute) Medical History Deviated nasal septum Drug overdose, intentional H/O suicide attempt History of hypothyroidism Non compliance w medication regimen RLS (restless legs syndrome) Schizoaffective disorder Trigeminal neuralgia of left side of face (01/03/18) Type 2 diabetes mellitus Yeast dermatitis Surgical History H/O pilonidal cyst Ligation of fallopian tube S/p breast implant removal Sep 2019 S/P breast implant, left S/P foot surgery Family History Mother Diabetes Father Heart disease Social History Smoking/Tobacco Use Status: Current-Occasional Tobacco Type: cigarettes and cigars Smoking risk assessment performed?: Yes Alcohol Intake: never Drug use: Socially Substance use type: marijuana Number of Children: 2 current occupation: Disabled Seatbelt use: always Do you feel safe at home: Yes Do you feel safe in your relationship?: Yes Female Reproductive History Menstrual Age of Menarche: 16 Duration of menses: other control method: permanent sterilization History History 2 Para 2 Hx # Term Pregnancies Multiple births Hx # Pregnancies Ectopic pregnancies AB induced Hx Number of Living Children AB spontaneous Past Pregnancies Del. Date GA/Weeks # Preg Succ Route Wgt Sex Labor Lgth Anesth esia Location Prov Complic 08/30/01 40 No Yes vaginal Female 03/25/02 40 No Yes vaginal Male Delivery Date: 08/30/01 [facility]/02 Last Updated by: Aimee Enciso- [facility] Exam <CECI Varela - Last Filed: 01/07/23 09:31> Const General: ill appearing Nutritional Appearance: average body habitus Orientation: alert HENMT Other: moist mucous membranes Eyes Pupils: PERRL EOM: EOM intact bilaterally Resp Effort & Inspection: normal respiratory effort Auscultation: clear to auscultation bilaterally Cardio Rate: regular rate Rhythm: regular rhythm Skin General skin exam: no rashes or lesions noted Neuro Other: Initially unresponsive, GCS 8, on reassessment 5 minutes later, alert, oriented x2, cranial nerves II through XII intact, maintaining airway Extrem General: normal to inspection Course <CECI Varela - Last Filed: 01/07/23 09:31> Vital Signs Vital signs: Vital Signs Pulse 103 H 01/05/23 13:26 Respiratory Rate 18 01/05/23 13:26 Pulse Oximetry 95 01/05/23 13:26 Pulse 78 01/05/23 14:31 Pulse 79 01/05/23 14:31 Respiratory Rate 12 01/05/23 14:31 Respiratory Effort Normal, Non-Labored 01/05/23 13:45 Respiratory Depth Normal 01/05/23 13:45 Respiratory Pattern Normal 01/05/23 13:45 Blood Pressure 105/66 01/05/23 14:31 Blood Pressure Mean 74 01/05/23 14:31 Pulse Oximetry 95 01/05/23 14:31 Oxygen Delivery Method Room Air 01/05/23 13:26 Oxygen Flow Rate 0 01/05/23 13:26 Lab/Test Results Lab/Test Results: Laboratory Tests Range/Units 01/05/23 01/05/23 01/05/23 13:40 13:40 13:40 WBC (4.4-10.8) 10^3/uL 6.58 RBC (3.93-5.22) 10^6/uL 4.22 Hgb (11.2-15.7) g/dL 14.0 Hct (36.0-46.0) % 40.0 MCV (80-95) fL 95 MCH (27.0-33.0) pg 33.2 H MCHC (32.0-36.0) % 35.0 RDW (11.7-14.6) % 11.9 Plt Count (130-400) 10^3/uL MPV (8.0-11.0) fL Immature Gran % 1.2 Neutrophils % 44.4 Lymphocytes % 40.4 Monocytes % 5.8 Eosinophils % 7.4 Basophils % 0.8 Nucleated RBC % (0.0-0.3) % 0.0 Absolute Neutrophils (1.2-6.7) 10^3/uL 2.92 Absolute Lymphocytes (1.2-3.4) 10^3/uL 2.66 Absolute Monocytes (0.1-0.8) 10^3/uL 0.38 Absolute Eosinophils (0.0-0.7) 10^3/uL 0.49 Absolute Basophils (0.0-0.2) 10^3/uL 0.05 RBC Morphology Normal VBG pH (7.31-7.41) VBG pCO2 (41-51) mmHg VBG pO2 mmHg VBG HCO3 (23-28) mmol/L VBG Total CO2 (24-29) mmol/L VBG O2 Saturation % VBG Base Excess (-2-3) mmol/L Sodium (136-145) mmol/L 137 Potassium (3.5-5.1) mmol/L 4.2 Chloride (98-107) mmol/L 103 Carbon Dioxide (21.0-32.0) mmol/L 23.6 Anion Gap (3-11) mmol/L 10.4 BUN (7-18) mg/dL 10 Creatinine (0.55-1.02) mg/dL 0.8 Est GFR (CKD-EPI 2020) (mL/min/1.73m2) 94.28 Glucose (74-106) mg/dL 680 H* Calcium (8.5-10.1) mg/dL 8.8 Magnesium (1.8-2.4) mg/dL Total Bilirubin (0.2-1.0) mg/dL 0.2 AST (15-37) U/L 17 ALT (14-59) U/L 26 Alkaline Phosphatase (46-116) U/L 220 H Ammonia (11-32) umol/L Troponin I (<or=60) ng/L < 50 Total Protein (6.4-8.2) g/dL 6.9 Albumin (3.4-5.0) g/dL 3.0 L Lipase (16-77) U/L 52 TSH (0.36-3.74) uIU/mL 1.85 Urine Color (Yellow) Urine Clarity (Clear) Urine pH (5-8) Ur Specific Glynn (1.005-1.025) Urine Protein (Negative) mg/dL Urine Ketones (Negative) mg/dL Urine Blood (Negative) Urine Nitrite (Negative) Urine Bilirubin (Negative) Urine Urobilinogen (Up to 0.2) mg/dL Ur Leukocyte Esterase (Negative) Urine Glucose (Negative) mg/dL Range/Units 01/05/23 01/05/23 01/05/23 13:40 14:00 14:00 WBC (4.4-10.8) 10^3/uL RBC (3.93-5.22) 10^6/uL Hgb (11.2-15.7) g/dL Hct (36.0-46.0) % MCV (80-95) fL MCH (27.0-33.0) pg MCHC (32.0-36.0) % RDW (11.7-14.6) % Plt Count (130-400) 10^3/uL MPV (8.0-11.0) fL Immature Gran % Neutrophils % Lymphocytes % Monocytes % Eosinophils % Basophils % Nucleated RBC % (0.0-0.3) % Absolute Neutrophils (1.2-6.7) 10^3/uL Absolute Lymphocytes (1.2-3.4) 10^3/uL Absolute Monocytes (0.1-0.8) 10^3/uL Absolute Eosinophils (0.0-0.7) 10^3/uL Absolute Basophils (0.0-0.2) 10^3/uL RBC Morphology VBG pH (7.31-7.41) 7.38 VBG pCO2 (41-51) mmHg 41 VBG pO2 mmHg 65 VBG HCO3 (23-28) mmol/L 24 VBG Total CO2 (24-29) mmol/L 22 L VBG O2 Saturation % 96 VBG Base Excess (-2-3) mmol/L -1 Sodium (136-145) mmol/L Potassium (3.5-5.1) mmol/L Chloride (98-107) mmol/L Carbon Dioxide (21.0-32.0) mmol/L Anion Gap (3-11) mmol/L BUN (7-18) mg/dL Creatinine (0.55-1.02) mg/dL Est GFR (CKD-EPI 2020) (mL/min/1.73m2) Glucose (74-106) mg/dL Calcium (8.5-10.1) mg/dL Magnesium (1.8-2.4) mg/dL 2.0 Total Bilirubin (0.2-1.0) mg/dL AST (15-37) U/L ALT (14-59) U/L Alkaline Phosphatase (46-116) U/L Ammonia (11-32) umol/L 65 H Troponin I (<or=60) ng/L Total Protein (6.4-8.2) g/dL Albumin (3.4-5.0) g/dL Lipase (16-77) U/L TSH (0.36-3.74) uIU/mL Urine Color (Yellow) Urine Clarity (Clear) Urine pH (5-8) Ur Specific Glynn (1.005-1.025) Urine Protein (Negative) mg/dL Urine Ketones (Negative) mg/dL Urine Blood (Negative) Urine Nitrite (Negative) Urine Bilirubin (Negative) Urine Urobilinogen (Up to 0.2) mg/dL Ur Leukocyte Esterase (Negative) Urine Glucose (Negative) mg/dL Range/Units 01/05/23 14:42 WBC (4.4-10.8) 10^3/uL RBC (3.93-5.22) 10^6/uL Hgb (11.2-15.7) g/dL Hct (36.0-46.0) % MCV (80-95) fL MCH (27.0-33.0) pg MCHC (32.0-36.0) % RDW (11.7-14.6) % Plt Count (130-400) 10^3/uL MPV (8.0-11.0) fL Immature Gran % Neutrophils % Lymphocytes % Monocytes % Eosinophils % Basophils % Nucleated RBC % (0.0-0.3) % Absolute Neutrophils (1.2-6.7) 10^3/uL Absolute Lymphocytes (1.2-3.4) 10^3/uL Absolute Monocytes (0.1-0.8) 10^3/uL Absolute Eosinophils (0.0-0.7) 10^3/uL Absolute Basophils (0.0-0.2) 10^3/uL RBC Morphology VBG pH (7.31-7.41) VBG pCO2 (41-51) mmHg VBG pO2 mmHg VBG HCO3 (23-28) mmol/L VBG Total CO2 (24-29) mmol/L VBG O2 Saturation % VBG Base Excess (-2-3) mmol/L Sodium (136-145) mmol/L Potassium (3.5-5.1) mmol/L Chloride (98-107) mmol/L Carbon Dioxide (21.0-32.0) mmol/L Anion Gap (3-11) mmol/L BUN (7-18) mg/dL Creatinine (0.55-1.02) mg/dL Est GFR (CKD-EPI 2020) (mL/min/1.73m2) Glucose (74-106) mg/dL Calcium (8.5-10.1) mg/dL Magnesium (1.8-2.4) mg/dL Total Bilirubin (0.2-1.0) mg/dL AST (15-37) U/L ALT (14-59) U/L Alkaline Phosphatase (46-116) U/L Ammonia (11-32) umol/L Troponin I (<or=60) ng/L Total Protein (6.4-8.2) g/dL Albumin (3.4-5.0) g/dL Lipase (16-77) U/L TSH (0.36-3.74) uIU/mL Urine Color (Yellow) Yellow Urine Clarity (Clear) Clear Urine pH (5-8) 7.0 Ur Specific Glynn (1.005-1.025) 1.015 Urine Protein (Negative) mg/dL Negative Urine Ketones (Negative) mg/dL Trace H Urine Blood (Negative) Negative Urine Nitrite (Negative) Negative Urine Bilirubin (Negative) Negative Urine Urobilinogen (Up to 0.2) mg/dL 0.2 Ur Leukocyte Esterase (Negative) Negative Urine Glucose (Negative) mg/dL 500 H POC- Test(urine) Negative Sign Out <CECI Varela - Last Filed: 01/07/23 09:31> Sign Out Data: Sign Out Comment: signed out pending repeat glucose and reassessment with hyperglycemia and AMS Last updated by Marilee Killian PA at 01/05/23 15:45
[2023-01-05] MEDS: INSULIN REGULAR IN 0.9 % NACL 100 UNIT/100 ML BAG 8.6 UNIT IV (15:13)
--- NOTE | 2023-01-05 15:15 | NUR.NOTE ---
Nursing Note: Pt transported from CT to ED rm 1. Report given to A Zuleika RN at this time.
[2023-01-05 15:19] LABS: *AMPHETAMINES SCREEN URINE Negative (Negative); *BARBITURATES SCREEN URINE Negative (Negative); *BENZODIAZEPINES SCREEN URINE Negative (Negative); Cannabinoids THC Negative (Negative); Cocaine Screen,Urine Negative (Negative); METHADONE URINE SCREEN Negative (Negative); OPIATES URINE SCREEN Negative (Negative)
[2023-01-05 15:21] LABS: Tricyclic Antidepressants Negative (Negative)
--- NOTE | 2023-01-05 15:22 | NUR.NOTE ---
MD Longo calling with a negative CT head result. CECI Varela aware
--- NOTE | 2023-01-05 15:23 | NUR.NOTE ---
Nursing Note: Insulin gtt verified at bedside w/ Stephanie BUSTOS
[2023-01-05] MEDS: Normal Saline 1,000 ML 1000 ML IV (16:26)
[2023-01-05 17:29] LABS: Troponin I < 50 ng/L (<or=60)
[2023-01-05 17:30] LABS: ETHANOL BLOOD < 3.0 mg/dL (<10)
--- NOTE | 2023-01-05 18:03 | NUR.NOTE ---
Addendum entered by Diana Da Silva 01/05/23 18:14: Nurse advised that pt is switching to [facility] and has appt in February. Faxed referral to this office also. Original Note: Nursing Note: Referral faxed to PCP for hyperglycemia/altered mental status;to be seen by end of week.
== END 2023-01-05 18:24 | disposition home or self-care (01) ==
PROVIDERS: Physician Assistant; Emergency Provider Nurse Practitioner Family; PCP Family Medicine
DX: E11.65 Type 2 diabetes mellitus with hyperglycemia (principal); R55 Syncope and collapse; F20.9 Schizophrenia, unspecified; R41.82 Altered mental status, unspecified
CPT/HCPCS: 36415; 36416; 80053; 80307; 81025; 82805; 82962; 83690; 93005; 96361; 96365; 96375; 99285; 70450; 71045; 80320; 81003; 82140; 83735; 84443; 84484; 85025; 93010; 99284; J2310

== ENCOUNTER 2023-01-10 21:47 | Emergency (ER) | payer MEDICAID, SELFPAY ==
[2023-01-10] VITALS (19 sets, daily range): BP systolic 116–149; BP diastolic 71–89; PULSE 68–85; RESP 10–20; TEMP 37; O2SAT 95–98
--- NOTE | 2023-01-10 21:45 | DI.RAD_ITS ---
Exam(s) XR PORTABLE CHEST AP EXAM: XR PORTABLE CHEST AP CLINICAL HISTORY: ams. TECHNIQUE: 2D digital imaging was performed. COMPARISON: CR XR PORTABLE CHEST AP from 01/05/2023 FINDINGS: Single AP portable view. Heart size is upper normal. The mediastinum is not widened. Lungs are clear. No infiltrates nor obvious pleural effusions. Incidentally noted is soft tissue calcification in the left shoulder adjacent to the greater tuberosi ty consistent with calcific tendinitis-bursitis. IMPRESSION: No acute pulmonary findings on this single AP portable view of the chest. Left shoulder calcific tendinitis-bursitis. DATA REPOSITORY: RADIATION DOSE DELIVERED:
--- NOTE | 2023-01-10 21:45 | RT.EKG_ITS ---
APPROVED REPORT Exam: Resting ECG Reason for Exam: [facility] Patient Location: E HR:75 bpm ECG Measurements Heart Rate 75 AXIS MO 165 P 62 QRSd 87 QRS 31 QT 389 T 17 QTc 435 Conclusion Sinus rhythm...normal P axis, V-rate 60- sinus rhythm, normala axis, normal intervals, non ischemic
[2023-01-10 22:00] LABS: BE (Venous) -4 mmol/L (-2-3); HCO3 (Venous) 22 mmol/L (23-28); O2 Sat (Venous) 96 %; TCO2 (Venous) 20 mmol/L (24-29); pCO2 (Venous) 37 mmHg (41-51); pH (Venous) 7.38 (7.31-7.41); pO2 (Venous) 67 mmHg
[2023-01-10 22:03] LABS: Abs Immature Grans 0.07 10^3/uL (0.0-0.06); Absolute Basophil Count 0.03 10^3/uL (0.0-0.2); Absolute Eosinophil Count 0.28 10^3/uL (0.0-0.7); Absolute Lymphocyte Count 3.54 10^3/uL (1.2-3.4); Absolute Neutrophil Count 3.63 10^3/uL (1.2-6.7); Basophils % 0.4; Eosinophils % 3.5; HCT 38.2 % (36.0-46.0); HGB 13.8 g/dL (11.2-15.7); Immature Grans % 0.9; MCH 33.8 pg (27.0-33.0); MCHC 36.1 % (32.0-36.0); MCV 94 fL (80-95); MPV 9.8 fL (8.0-11.0); Monocytes % 6.2; Platelet Count 225 10^3/uL (130-400); RBC 4.08 10^6/uL (3.93-5.22); RDW-SD 41.2 fL; WBC 8.05 10^3/uL (4.4-10.8)
--- NOTE | 2023-01-10 22:06 | NUR.NOTE ---
Nursing Note: pTs blood sugar at arrival time is 473.
[2023-01-10] MEDS: Lactated Ringers 1,000 ML 1000 ML IV (22:08)
--- OUTSIDE RECORDS SUMMARY | 2023-01-10 22:09 | XMS_ITS | CCD ---
Author Name Unknown Address [address] [place] [address] [phone] Organization Unknown Address [address] [place] [address] [id number] Care Team Providers Care Assault Amphibious Vehicle Officer Name Role Phone JENNY RUBIN Attending Physician [id number] [phone] JENNY RUBIN Er Physician 8 [phone] AMARA Lopez Registered Nurse [phone] Vital Signs Vital Sign Value Unit Date/Time [...] Units Test Ref Rang e ALCOHOL (ETHANOL) 57386-9 <3 mg/dL COMPREHENSIVE METABOLIC PANE L (CMP) [...] 2028-9 23 mmol/L L=22 H=34 ANION GAP 88405-7 12.6 mmol/L CALCIUM SERUM 79359-9 9.3 mg/dL L=8.2 H=10. 2 BILIRUBIN TOTAL 1975-2 0.2 mg/dL L=0.0 H=1 .3 ALK. PHOS. 6768-6 226 U/L L=46 H=116 SGOT (AST) 1920-8 27 U/L L=15 H=37 SGPT (ALT) 1742-6 53 U/L L=12 H=78 TOTAL PROTEIN 2885-2 7.9 gm/dL L=6.0 H=8.0 ALBUMIN 1751-7 3.4 gm/dL L=3.4 H=5.0 AGE 41 years eGFR (non-Afr.Amer.) 90088-7 102 mL/min eGFR (Afr-Jamaican) 89297-1 >120 mL/min GLUCOSE FINGER/HEEL CAPILLAR Y - [...] Test Units Test Ref Rang e MAGNESIUM 60806-3 1.9 mg/dL L=1.8 H=2.4 SALICYLATE SERUM* - [...] % 56.4 % L=10.0 H=50.0 MONO % 11969-7 9.1 % L=2.0 H=12.0 EOS % 1.9 % L=0.0 H=8.0 BASO % 0.4 % L=0.0 H=3.0 IG % 2514-8 0.7 % L=0.0 H=1.1 NRBC % 55156-6 0.0 % L=0.0 H=0.0 NEUT abs count 751-8 2.2 th/cmm L=1.6 H=8. 4 LYMPH abs count 731-0 3.9 th/cmm L=1.5 H=4 .0 MONO abs count 742-7 0.6 th/cmm L=0.2 H=1. 0 EOS abs count 711-2 0.1 th/cmm L=0.0 H=0.5 BASO abs count 704-7 0.0 th/cmm L=0.0 H=0. 2 IG abs count 44485-8 0.1 th/cmm L=0.0 H=0.1 NRBC abs count 68452-2 0.0 mil/cmm L=0.0 H=0. 0 RBC 789-8 [...] Test Units Test Ref Rang e CANNABINOIDS 68155-2 NEGATIVE N/A Cutoff = 50 ng/mL PHENCYCLIDINE 09077-8 NEGATIVE N/A Cutoff = 25 ng/mL COCAINE 55774-7 NEGATIVE N/A Cutoff = 150 n g/mL METHAMPHETAMINES 91114-9 NEGATIVE N/A Cutoff = 500 ng/mL OPIATES 65181-2 NEGATIVE N/A Cutoff = 100 n g/mL AMPHETAMINES 52352-3 NEGATIVE N/A Cutoff = 500 ng/mL BENZODIAZEPINES 07320-3 NEGATIVE N/A Cutoff = 150 ng/mL TRICYCLIC ANTIDEP 3533-7 NEGATIVE N/A Cutoff = 300 ng/mL METHADONE 98047-4 NEGATIVE N/A Cutoff = 200 n g/mL BARBITURATES 63383-2 NEGATIVE N/A Cutoff = 200 ng/mL OXYCODONE 51466-6 NEGATIVE N/A Cutoff = 100 n g/mL PROPOXYPHENE 46126-7 NEGATIVE N/A Cutoff = 300 ng/mL BUPRENORPHINE 3414-0 NEGATIVE N/A Cutoff = 10 mg/mL TEST QUAL (SERUM) - Collect Date/Time: 08/04/2022 09:50 Test Name Code Test Result Test Units Test Ref Rang e TEST 2105-3 NEGATIVE N/A URINALYSIS WITH REFLEX CULT IF POSITIVE* - Collect Date/Time: 08/04/2022 11:09 Test Name Code Test Result Test Units Test Ref Rang e COLLECTION MODE: 80573-9 CLEAN CATCH N/A Color 5778-6 YELLOW N/A yellow Appearance 5767-9 CLEAR N/A clear Glucose urine 44169-4 >=1000 N/A negative mg /dl Bilirubin 5770-3 NEGATIVE N/A negative Ketones 2514-8 15 N/A negative mg/dl Spec gravity 5811-5 1.010 N/A 1.003 - 1.03 0 pH urine 2756-5 6.5 N/A 5.0 - 7.0 Protein 12792-5 NEGATIVE N/A negative mg/dl Urobilinogen 93063-8 0.2 N/A <or= 1 EU/dl Nitrite. 5802-4 [...] unspecified, not i ntractable, without status epilepticus [id number] 08/04/2022 Social History Unknown or Not Available. Patient Decision Aids Unknown or Not Available. Discharge Instructions You were admitted to [facility] on 08/04/2022 10:14 with a principal diagnosis of Epilepsy, unspecified, not intractable, without status epilepticus You had the following tests done:DRUG SCN 13 PANEL (MEDTOX)*URINALYSIS WITH REFLEX CULT IF POSITIVE*GLUCOSE FINGER/HEEL CAPILLARYGLUCOSE FINGER/HEEL CAPILLARYACETAMINOPHEN*ALCOHOL (ETHANOL)*CBC W/ DIFFERENTIAL*COMPREHENSIVE METABOLIC PANEL (CMP)MAGNESIUM SERUM*ORDER VENOUS BLOOD GAS* TEST QUAL (SERUM)SALICYLATE SERUM*TROPONIN HIGH SENSITIVITY*VALPROIC ACID (DEPAKENE)* You were discharged from [facility] on 08/04/2022 16:26 Should you have any [...]
[2023-01-10 22:17] LABS: Bilirubin Negative (Negative); Blood Negative (Negative); Clarity Clear (Clear); Glucose 500 mg/dL (Negative); Ketones 40 mg/dL (Negative); Leukocyte Esterase Negative (Negative); Nitrite Negative (Negative); Specific Gravity 1.015 (1.005-1.025); Urobilinogen 0.2 mg/dL (Up to 0.2); pH 6.5 (5-8)
[2023-01-10 22:18] LABS: ETHANOL BLOOD < 3.0 mg/dL (<10)
[2023-01-10 22:20] LABS: HCG Qual (Serum) Negative
[2023-01-10 22:26] LABS: *AMPHETAMINES SCREEN URINE Negative (Negative); *BARBITURATES SCREEN URINE Negative (Negative); *BENZODIAZEPINES SCREEN URINE Negative (Negative); Cannabinoids THC Negative (Negative); Cocaine Screen,Urine Negative (Negative); METHADONE URINE SCREEN Negative (Negative); OPIATES URINE SCREEN Negative (Negative)
[2023-01-10 22:28] LABS: Tricyclic Antidepressants Negative (Negative)
[2023-01-10 22:30] LABS: ALT 32 U/L (14-59); Albumin 3.1 g/dL (3.4-5.0); Alkaline Phosphatase 225 U/L (46-116); Anion Gap 9.8 mmol/L (3-11); BUN 14 mg/dL (7-18); Bilirubin, Total 0.3 mg/dL (0.2-1.0); CO2 22.2 mmol/L (21.0-32.0); CREATININE 0.7 mg/dL (0.55-1.02); Calcium 8.3 mg/dL (8.5-10.1); Chloride 98 mmol/L (98-107); Estimated GFR 110.67 (mL/min/1.73m2); Potassium 3.7 mmol/L (3.5-5.1); Sodium 130 mmol/L (136-145); TSH (W/Ref FT4) 3.63 uIU/mL (0.36-3.74); Total Protein 7.1 g/dL (6.4-8.2); Troponin I < 50 ng/L (<or=60)
--- NOTE | 2023-01-10 22:36 | ED.GENADUL_ITS ---
Discharge Plan Disposition Patient Disposition: Against Medical Advice Discharge Details Clinical Impression: Schizophrenia, Diabetes mellitus type 2 in obese, Hyperglycemia due to diabetes mellitus Primary Care Provider: Antoni Ohara ED Provider: Marilee Killian Home Meds and New Rx's Prescriptions: New Trulicity 0.75 mg/0.5 mL pen injector 0.75 mg subcut QWEEK Qty: 1 0RF Continued Trulicity 0.75 mg/0.5 mL pen injector 0.75 mg subcut QWEEK Patient Comments: not taking gabapentin 300 mg capsule 300 mg PO QHS nystatin 100,000 unit/gram cream 1 applic topical BID Qty: 30 3RF Patient Comments: not taking pregabalin 200 mg capsule 200 mg PO BID Qty: 60 5RF levothyroxine 75 MCG tablet 75 mcg PO DAILY benztropine 2 mg Tablet 2 mg PO HS divalproex 250 mg Tablet Extended Release 24 Hr 250 mg PO HS divalproex 500 mg Tablet,Delayed Release (Dr/Ec) 1,000 mg PO BID olanzapine 15 mg Tablet 15 mg PO DAILY Levemir FlexTouch U100 Insulin 100 unit/mL (3 mL) insulin pen 80 unit SUBCUT BID Patient Comments: not taking Humalog KwikPen Insulin 200 unit/mL (3 mL) insulin pen 4 unit SUBCUT TID Patient Comments: not taking docusate sodium 100 mg capsule 100 mg PO DAILY citalopram [Celexa] 20 mg tablet 20 mg PO DAILY Patient Comments: Take 1 tablet by mouth every morning topiramate [Topamax] 50 mg tablet 50 mg PO BID Patient Comments: Take 1 tablet by mouth twice a day Aristada 882 mg/3.2 mL suspension,extended rel syring 882 mg IM Q4W Patient Comments: not taking Rx Instructions: every 4 weeks aripiprazole [Abilify] 30 MG tablet 15 mg PO DAILY Discontinued Bydureon BCise 2 mg/0.85 mL Auto-Injector 2 mg SUBCUT QWEEK Patient Comments: not taking Discharge Instructions Instructions: Diabetic Hyperglycemia (ED) Additional Instructions: You are leaving against recommendation, we have had numerous visits in a poorly controlled blood sugar and recurrent episodes of alteration in mental status, I recommend observation Please start taking your Trulicity again Use your insulin as prescribed, you are harming your body by not taking these meds I am writing for an outpatient Holter monitor, please follow-up regarding this, you are declining admission at this time and I do recommend close outpatient reassessment Return I earliest ability for reassessment Referrals: Antoni Ohara DO [Primary Care Provider] - 1 day Discharge Data Discharge Date/Time-TO BE ENTERED AT DEPARTURE: 01/11/23 00:01 Medical Decision Making Patient is alert and oriented, she does have a quite unusual affect She has been evaluated for similar episodes in the past I actually evaluated this patient for similar presentation last week and did CT scan and full work-up Her labs display hyperglycemia without evidence of diabetic ketoacidosis, she is fully alert and oriented x4, ambulatory with steady gait I recommended admission for observation and a noncompliant diabetic with periods of alteration in mental status and history of schizophrenia, she is adamantly declined, she is fully competent at time of reassessment, alert, oriented, of decisional capacity, had a long discussion approximately 20 minutes in the room with the patient regarding the stress that she is placing on her body without taking her meds She declines insulin right now, she states she takes her insulin when she arrives home I am willing to prescribe her Trulicity she says she has an appointment with her psychiatrist tomorrow and [facility] internal for next week Return precautions reviewed and patient expressed understanding Medical Records Medical records reviewed: Yes I reviewed the patient's medical records. Lab Data Lab results reviewed: Yes I reviewed the patient's lab results. HPI General Date/Time Provider Initiated Documentation: 01/10/23 21:50 . HPI Narrative: This complex 42-year-old female with history history of schizophrenia and type 2 diabetes known to this facility presents with report of syncope, similar presentation to previous events. States she is not taken her insulin because she does not like to inject herself 3 times daily. She states she is run out of her Ozempic which she took once a week and felt was more effective. She states she is in between providers. She does not recall the events of today. She states she was drinking sweet tea prior to arrival. She denies any fever or chills. She denies any current headache. She denies any chest pain or shortness of breath. Denies chance of . Denies illicit drug use. Denies any alcohol consumption. She states she is taking her mental health medications. Related Data Home Medications Medication Instructions Recorded Confirmed levothyroxine 75 mcg tablet 75 mcg PO DAILY 03/15/16 01/10/23 gabapentin 300 mg capsule 300 mg PO QHS 10/25/18 01/10/23 aripiprazole lauroxil 882 mg/3.2 882 mg IM Q4W 07/12/21 01/10/23 mL suspension, ext.rel. IM syringe (Aristada) citalopram 20 mg tablet (Celexa) 20 mg PO DAILY 07/12/21 01/10/23 topiramate 50 mg tablet (Topamax) 50 mg PO BID 07/12/21 01/10/23 benztropine 2 mg tablet 2 mg PO HS 09/17/21 01/10/23 divalproex 250 mg tablet,extended 250 mg PO HS 09/17/21 01/10/23 release 24 hr divalproex 500 mg tablet,delayed 1,000 mg PO BID 09/17/21 01/10/23 release olanzapine 15 mg tablet 15 mg PO DAILY 09/17/21 01/10/23 dulaglutide 0.75 mg/0.5 mL 0.75 mg subcut QWEEK 03/15/22 01/10/23 subcutaneous pen injector (Trulicity) insulin detemir U-100 100 unit/mL 80 unit subcut BID 03/15/22 01/10/23 (3 mL) subcutaneous pen (Levemir FlexTouch U-100 Insulin) insulin lispro 200 unit/mL (3 mL) 4 unit subcut TID 03/15/22 01/10/23 subcutaneous pen (Humalog KwikPen U-200 Insulin) aripiprazole 30 mg tablet (Abilify) 15 mg PO DAILY 06/21/22 01/10/23 nystatin 100,000 unit/gram topical 1 applic topical BID #30 grams 07/26/22 01/10/23 cream pregabalin 200 mg capsule 200 mg PO BID #60 caps 09/08/22 01/10/23 docusate sodium 100 mg capsule 100 mg PO DAILY 01/05/23 01/10/23 dulaglutide 0.75 mg/0.5 mL 0.75 mg (0.5 mL) subcut QWEEK #1 mL 01/10/23 subcutaneous pen injector (Trulicity) Previous Rx's Medication Instructions Recorded nystatin 100,000 unit/gram topical 1 applic topical BID #30 grams 07/26/22 cream pregabalin 200 mg capsule 200 mg PO BID #60 caps 09/08/22 dulaglutide 0.75 mg/0.5 mL 0.75 mg (0.5 mL) subcut QWEEK #1 mL 01/10/23 subcutaneous pen injector (Trulicity) Allergies Allergy/AdvReac Type Severity Reaction Status Date / Time codeine Allergy Mild Unverified 01/05/23 13:31 General Stated Complaint: AMS/LOC CECILIA: 2 PFSH All Active Problems (Updated 01/10/23 @ 23:05 by CECI Varela) Hyperglycemia due to diabetes mellitus (Acute) Non-compliant behavior (Acute) Acute alteration in mental status (Acute) Dysfunctional uterine bleeding (Acute) Pelvic mass in female (Acute) Oligomenorrhea (Acute) Uterine mass (Acute) Schizophrenia (Chronic) Diabetes mellitus type 2 in obese (Acute) Medical History Deviated nasal septum Drug overdose, intentional H/O suicide attempt History of hypothyroidism Non compliance w medication regimen RLS (restless legs syndrome) Schizoaffective disorder Trigeminal neuralgia of left side of face (01/03/18) Type 2 diabetes mellitus Yeast dermatitis Surgical History H/O pilonidal cyst Ligation of fallopian tube S/p breast implant removal Sep 2019 S/P breast implant, left S/P foot surgery Family History Mother Diabetes Father Heart disease Social History (Updated 01/11/23 @ 16:30 by Susan Merritt) Smoking/Tobacco Use Status: Current-Occasional Tobacco Type: cigarettes and cigars Quit status: considering quitting Smoking risk assessment performed?: Yes Alcohol Intake: never Drug use: Socially Substance use type: marijuana Adopted: No Caregiver/Support person: No Foster care: No Number of Children: 2 Do you need help understanding health information?: Never current occupation: Disabled Pets and animals: Yes (1) Pets and animals: cat(s) Do you think of yourself as: straight/heterosexual Current gender identity: female What is your relationship status?: How often do you talk on the phone with friends or family?: decline to answer How often do you get together with friends or relatives?: decline to answer Panel score (0-1 are the most socially isolated patients): 0 What type of physical activity do you participate in: walking Frequency: 1-2 times per week Lauren/Faith: Jewish Special lauren needs: No Seatbelt use: always Drive intox or ride w/intox petroleum transport driver: No Do you feel safe at home: Yes Do you feel safe in your relationship?: Yes Female Reproductive History Menstrual Age of Menarche: 16 Duration of menses: other control method: permanent sterilization History History 2 Para 2 Hx # Term Pregnancies Multiple births Hx # Pregnancies Ectopic pregnancies AB induced Hx Number of Living Children AB spontaneous Past Pregnancies Del. Date GA/Weeks # Preg Succ Route Wgt Sex Labor Lgth Anesth esia Location Prov Complic 08/30/01 40 No Yes vaginal Female 03/25/02 40 No Yes vaginal Male Delivery Date: 08/30/01 Last Updated by: [facility] Date: 03/25/02 Last Updated by: Aimee EncisoPRE[facility] Exam Const General: no acute distress and disheveled Orientation: alert and oriented x3 Eyes Pupils: PERRL Neck Other: no meningismus Resp Effort & Inspection: normal respiratory effort Auscultation: clear to auscultation bilaterally Cardio Rate: regular rate Rhythm: regular rhythm Skin General skin exam: no rashes or lesions noted Neuro General: patient alert and patient oriented x3 Cranial Nerves: CN's II-XI intact bilaterally and tongue midline Cognition: normal cognition Speech: speech normal Gait: normal gait Motor: strength 5/5 throughout Course Vital Signs Vital signs: Vital Signs Temperature 37.0 C 01/10/23 21:50 Pulse 75 01/10/23 21:50 Respiratory Rate 19 01/10/23 21:50 Blood Pressure 132/75 01/10/23 21:50 Pulse Oximetry 97 01/10/23 21:50 Temperature 37.0 C 01/10/23 21:50 Temperature Source Oral 01/10/23 21:50 Pulse 75 01/10/23 21:50 Respiratory Rate 17 01/10/23 21:56 Respiratory Effort Normal, Non-Labored 01/10/23 21:56 Respiratory Depth Normal 01/10/23 21:56 Respiratory Pattern Normal 01/10/23 21:56 Blood Pressure 132/75 01/10/23 21:50 Blood Pressure Position Sitting 01/10/23 21:50 Pulse Oximetry 97 01/10/23 21:50 Oxygen Delivery Method Room Air 01/10/23 21:50 Oxygen Flow Rate 0 01/10/23 21:50 Pain Level 0 01/10/23 21:50 Lab/Test Results Lab/Test Results: Laboratory Tests Range/Units 01/10/23 01/10/23 01/10/23 21:55 21:55 21:55 WBC (4.4-10.8) 10^3/uL 8.05 RBC (3.93-5.22) 10^6/uL 4.08 Hgb (11.2-15.7) g/dL 13.8 Hct (36.0-46.0) % 38.2 MCV (80-95) fL 94 MCH (27.0-33.0) pg 33.8 H MCHC (32.0-36.0) % 36.1 H RDW (11.7-14.6) % 12.0 Plt Count (130-400) 10^3/uL 225 MPV (8.0-11.0) fL 9.8 Immature Gran % 0.9 Neutrophils % 45.0 Lymphocytes % 44.0 Monocytes % 6.2 Eosinophils % 3.5 Basophils % 0.4 Nucleated RBC % (0.0-0.3) % 0.0 Absolute Neutrophils (1.2-6.7) 10^3/uL 3.63 Absolute Lymphocytes (1.2-3.4) 10^3/uL 3.54 H Absolute Monocytes (0.1-0.8) 10^3/uL 0.50 Absolute Eosinophils (0.0-0.7) 10^3/uL 0.28 Absolute Basophils (0.0-0.2) 10^3/uL 0.03 VBG pH (7.31-7.41) 7.38 VBG pCO2 (41-51) mmHg 37 L VBG pO2 mmHg 67 VBG HCO3 (23-28) mmol/L 22 L VBG Total CO2 (24-29) mmol/L 20 L VBG O2 Saturation % 96 VBG Base Excess (-2-3) mmol/L -4 L Serum HCG, Qual Urine Color (Yellow) Urine Clarity (Clear) Urine pH (5-8) Ur Specific Wesley (1.005-1.025) Urine Protein (Negative) mg/dL Urine Ketones (Negative) mg/dL Urine Blood (Negative) Urine Nitrite (Negative) Urine Bilirubin (Negative) Urine Urobilinogen (Up to 0.2) mg/dL Ur Leukocyte Esterase (Negative) Urine Glucose (Negative) mg/dL Urine Opiates Screen (Negative) Urine Methadone Screen (Negative) Ur Barbiturates Screen (Negative) Ur Tricyclics Screen (Negative) Ur Amphetamines Screen (Negative) U Benzodiazepines Scrn (Negative) Urine Cocaine Screen (Negative) Ur THC Screen (Negative) Ethyl Alcohol (<10) mg/dL < 3.0 Range/Units 01/10/23 01/10/23 01/10/23 21:55 22:05 22:05 WBC (4.4-10.8) 10^3/uL RBC (3.93-5.22) 10^6/uL Hgb (11.2-15.7) g/dL Hct (36.0-46.0) % MCV (80-95) fL MCH (27.0-33.0) pg MCHC (32.0-36.0) % RDW (11.7-14.6) % Plt Count (130-400) 10^3/uL MPV (8.0-11.0) fL Immature Gran % Neutrophils % Lymphocytes % Monocytes % Eosinophils % Basophils % Nucleated RBC % (0.0-0.3) % Absolute Neutrophils (1.2-6.7) 10^3/uL Absolute Lymphocytes (1.2-3.4) 10^3/uL Absolute Monocytes (0.1-0.8) 10^3/uL Absolute Eosinophils (0.0-0.7) 10^3/uL Absolute Basophils (0.0-0.2) 10^3/uL VBG pH (7.31-7.41) VBG pCO2 (41-51) mmHg VBG pO2 mmHg VBG HCO3 (23-28) mmol/L VBG Total CO2 (24-29) mmol/L VBG O2 Saturation % VBG Base Excess (-2-3) mmol/L Serum HCG, Qual Negative Urine Color (Yellow) Yellow Urine Clarity (Clear) Clear Urine pH (5-8) 6.5 Ur Specific Wesley (1.005-1.025) 1.015 Urine Protein (Negative) mg/dL Negative Urine Ketones (Negative) mg/dL 40 H Urine Blood (Negative) Negative Urine Nitrite (Negative) Negative Urine Bilirubin (Negative) Negative Urine Urobilinogen (Up to 0.2) mg/dL 0.2 Ur Leukocyte Esterase (Negative) Negative Urine Glucose (Negative) mg/dL 500 H Urine Opiates Screen (Negative) Negative Urine Methadone Screen (Negative) Negative Ur Barbiturates Screen (Negative) Negative Ur Tricyclics Screen (Negative) Negative Ur Amphetamines Screen (Negative) Negative U Benzodiazepines Scrn (Negative) Negative Urine Cocaine Screen (Negative) Negative Ur THC Screen (Negative) Negative Ethyl Alcohol (<10) mg/dL
[2023-01-10 23:00] LABS: AST 27 U/L (15-37)
[2023-01-10 23:10] LABS: Glucose 459 mg/dL (74-106)
--- NOTE | 2023-01-10 23:29 | NUTRITION ---
@[id number]- Pt wishes to leave emergency department. She is A&Ox4, ambulatory with steady gait. Pt states that she would like to walk home and lives 5-10 minutes away. Encouraged pt to call for ride home, but she refused. Pt given paper scrub top. Pt ambulated of unit without difficulty.
--- NOTE | 2023-01-10 23:45 | DI.VRAD_ITS ---
PROCEDURE INFORMATION: Exam: XR Chest Exam date and time: 01/10/2023 10:24 PM Age: 42 years old Clinical indication: Other: SOB TECHNIQUE: Imaging protocol: Radiologic exam of the chest. Views: 1 view. COMPARISON: CR XR PORTABLE CHEST AP 01/05/2023 3:07 PM FINDINGS: Lungs: Unremarkable. No consolidation. Pleural spaces: Unremarkable. No pleural effusion. No pneumothorax. Heart/Mediastinum: Unremarkable. No cardiomegaly. Bones/joints: Unremarkable. IMPRESSION: No acute findings. Dictated and Authenticated by: Waylon Pride MD. Ordering:STEF Hunt MD
== END 2023-01-11 00:01 | disposition left against medical advice (07) ==
PROVIDERS: Emergency Provider Physician Assistant; PCP Family Medicine
DX: R55 Syncope and collapse (principal); E11.65 Type 2 diabetes mellitus with hyperglycemia; F20.9 Schizophrenia, unspecified; R41.82 Altered mental status, unspecified; Z53.29 Procedure and treatment not carried out because of patient's decision for other reasons
CPT/HCPCS: 36415; 80053; 80307; 82805; 93005; 96360; 99284; 71045; 80320; 81003; 84443; 84484; 84703; 85025; 93010; 99283

== ENCOUNTER 2023-03-27 16:03 | Emergency (ER) | payer MEDICAID, SELFPAY ==
[2023-03-27] VITALS (25 sets, daily range): BP systolic 105–138; BP diastolic 63–97; PULSE 74–98; RESP 9–24; TEMP 36.8; O2SAT 96–98
--- NOTE | 2023-03-27 16:00 | RT.EKG_ITS ---
APPROVED REPORT Exam: Resting ECG Reason for Exam: sync Patient Location: E HR:86 bpm ECG Measurements Heart Rate 86 AXIS [place] 162 P 55 QRSd 86 QRS 49 QT 378 T 56 QTc 452 Conclusion Sinus rhythm...normal P axis, V-rate 60- 99
--- NOTE | 2023-03-27 16:15 | DI.CT_ITS ---
Exam(s) CT HEAD CERVICAL SPINE WO EXAM: CT HEAD CERVICAL SPINE WO CLINICAL HISTORY: fall, ?seizure. TECHNIQUE: Imaging Protocol: Axial computed tomography images with coronal and sagittal reformatted images were created and reviewed COMPARISON: CT CT HEAD CERVICAL SPINE WO from 11/17/[address] HEAD WO from 01/05/2023 FINDINGS: CT Head: Ventricles and Extra axial spaces: Normal in size and morphology for the patient's age. Hemorrhage: None. Cerebral parenchyma: Normal. Midline shift: None. Brainstem/Cerebellum: Normal. Calvarium: Normal. Visualized Paranasal sinuses/Mastoids: Clear. Soft Tissues: Unremarkable. CT Cervical Spine: Bones: No acute fracture or subluxation. There is unchanged reversal of the normal cervical lordosis. Soft Tissues: Unremarkable. Lung Apices: Clear. IMPRESSION: 1. No acute intracranial process. 2. No acute fracture or subluxation in the cervical spine. RADIATION DOSE DELIVERED: 1,384.73mGy.cm Total DLP DATA REPOSITORY: All CT scans at this facility are submitted to the National Radiology Data Registry (NRDR) Dose Index Registry (DIR) with the [employer] ([employer]). RADIATION OPTIMIZATION: All CT scans at this facility use at least one of these dose optimization te chniques: automated exposure control; mA and/or kV adjustment per patient size (includes targeted exa ms where dose is matched to clinical indication); or iterative reconstruction.
--- NOTE | 2023-03-27 16:29 | ED.GENADUL_ITS ---
Discharge Plan Disposition Patient Disposition: Home Condition: Stable Discharge Details Clinical Impression: Syncope Primary Care Provider: Antoni Ohara ED Provider: Matthew Chicas Home Meds and New Rx's Prescriptions: Continued gabapentin 300 mg capsule 300 mg PO QHS metformin 1,000 mg tablet 1,000 mg PO BID Qty: 180 3RF semaglutide 2 mg/dose (8 mg/3 mL) pen injector 2 mg subcut QWEEK Qty: 3 3RF Patient Comments: pt not familiar with this medication levothyroxine 75 mcg tablet See Rx Instructions .ROUTE .COMPLEX Qty: 28 0RF Dose Instruction: TAKE 1 TABLET BY MOUTH DAILY Rx Instructions: TAKE 1 TABLET BY MOUTH DAILY benztropine 2 mg Tablet 2 mg PO HS divalproex 250 mg Tablet Extended Release 24 Hr 250 mg PO HS divalproex 500 mg Tablet,Delayed Release (Dr/Ec) 1,000 mg PO BID olanzapine 15 mg Tablet 15 mg PO DAILY citalopram [Celexa] 20 mg tablet 20 mg PO DAILY Patient Comments: Take 1 tablet by mouth every morning topiramate [Topamax] 50 mg tablet 50 mg PO BID Patient Comments: Take 1 tablet by mouth twice a day Aristada 882 mg/3.2 mL suspension,extended rel syring 882 mg IM Q4W Patient Comments: not taking Rx Instructions: every 4 weeks Discharge Instructions Instructions: Syncope (ED) Additional Instructions: follow up with your primary care provider this week if you feel more ill, have severe worsening pain or difficulty breathing return to the emergency department Medical Decision Making 42 yo female with hx of schizophrenia, t2dm, hypothyroidism, who comes in after she was visiting a patient upstairs when she had an episode where she lost consciousness, fell out of her chair. She remembers the event and remembers falling though is vague on some of the history, states she woke up feeling well and felt well in the room. Denies alcohol or drug use. She had no tonic clonic movements, she arrives caox4 speaking clearly in no distress, caox4 with normal speech and moving all extremities. She has clear lungs, soft abdomen, no evidence of tongue biting and did not have loss of bladder function. Unclear if this was a syncope vs seizure, will proceed with cbc, cmp, troponin and ct head/c spine and tox workup. labs and imaging negative, pt stable, no recurrent episodes. Given stable vitals and no recurrent episodes with reassuring workup do not feel further testing indicated, she will f/u with her pcp and return precautions given Differential Diagnosis Differential Diagnosis: syncope, seizure, tbi, electrolyte abnormality Medical Records Medical records reviewed: Yes I reviewed the patient's medical records. Imaging Data Radiologic Study: Attestation: I personally reviewed and interpreted this imaging study as follows: Imaging: CT Scan Radiologist's impression: no acute findings Lab Data Lab results reviewed: Yes I reviewed the patient's lab results. ECG Data Attestation: I personally reviewed and interpreted this ECG (s) as follows: Prior ECG tracings: available for review HPI General Date/Time Provider Initiated Documentation: 03/27/23 16:04 . Limitations to Documentation: no limitations . Information obtained by: patient . History of Present Illness 42 year old F presents to the emergency department with the chief complaint of syncopal episode, described as moderate, Patient started experiencing this minute(s) (30) and it has been now resolved. No relieving factors improve symptom(s), No exacerbating factors reported . Patient notes no other symptoms.; denies chest pain, fever/chills and shortness of breath. Patient did receive the following treatments prior to arrival, none Related Data Home Medications Medication Instructions Recorded Confirmed gabapentin 300 mg capsule 300 mg PO QHS 10/25/18 03/27/23 aripiprazole lauroxil 882 mg/3.2 882 mg IM Q4W 07/12/21 01/18/23 mL suspension, ext.rel. IM syringe (Aristada) citalopram 20 mg tablet (Celexa) 20 mg PO DAILY 07/12/21 01/18/23 topiramate 50 mg tablet (Topamax) 50 mg PO BID 07/12/21 03/27/23 benztropine 2 mg tablet 2 mg PO HS 09/17/21 01/18/23 divalproex 250 mg tablet,extended 250 mg PO HS 09/17/21 03/27/23 release 24 hr divalproex 500 mg tablet,delayed 1,000 mg PO BID 09/17/21 03/27/23 release olanzapine 15 mg tablet 15 mg PO DAILY 09/17/21 03/27/23 metformin 1,000 mg tablet 1,000 mg PO BID #180 tabs 06/13/23 07/23/23 semaglutide 2 mg/dose (8 mg/3 mL) 2 mg (0.75 mL) subcut QWEEK #3 mL 02/15/23 02/15/23 subcutaneous pen injector levothyroxine 75 mcg tablet See Rx Instructions .Route 03/07/23 03/27/23 .COMPLEX #28 tabs Previous Rx's Medication Instructions Recorded metformin 1,000 mg tablet 1,000 mg PO BID #180 tabs 02/15/23 semaglutide 2 mg/dose (8 mg/3 mL) 2 mg (0.75 mL) subcut QWEEK #3 mL 02/15/23 subcutaneous pen injector levothyroxine 75 mcg tablet See Rx Instructions .Route 03/07/23 .COMPLEX #28 tabs Allergies Allergy/AdvReac Type Severity Reaction Status Date / Time codeine Allergy Mild Unverified 03/27/23 16:20 General Stated Complaint: Dizzy/Sync CECILIA: 3 Review of Systems All systems reviewed & are unremarkable except as noted in HPI and below Constitutional Constitutional: Denies chills, Denies fever(s) and Denies weakness Cardiovascular Cardiovascular: Denies chest pain and Denies dyspnea Respiratory Respiratory: Denies cough and Denies dyspnea Gastrointestinal Gastrointestinal: Denies abdominal pain, Denies nausea and Denies vomiting Musculoskeletal Musculoskeletal: Denies joint swelling Neurologic Neurologic: Denies weakness Endocrine Endocrine: Denies heat intolerance PFSH All Active Problems (Updated 03/27/23 @ 18:48 by Matthew Chicas MD) Syncope (Chronic) Chronic diarrhea (Acute) Nonalcoholic steatohepatitis (Acute) Hypothyroid (Chronic) Hirsutism (Acute) Dysfunctional uterine bleeding (Acute) Pelvic mass in female (Acute) Oligomenorrhea (Acute) Uterine mass (Acute) Schizophrenia (Chronic) Diabetes mellitus type 2 in obese (Acute) Medical History Deviated nasal septum Drug overdose, intentional H/O suicide attempt History of hypothyroidism Non compliance w medication regimen RLS (restless legs syndrome) Schizoaffective disorder Trigeminal neuralgia of left side of face (01/03/18) Type 2 diabetes mellitus Yeast dermatitis Surgical History H/O pilonidal cyst Ligation of fallopian tube S/p breast implant removal Sep 2019 S/P breast implant, left S/P foot surgery Family History Mother Diabetes Father Heart disease Social History (Updated 02/15/23 @ 14:48 by Jasmina Ayala) Smoking/Tobacco Use Status: Current-Occasional Tobacco Type: cigarettes and cigars Quit status: considering quitting Smoking risk assessment performed?: Yes Alcohol Intake: never Drug use: Current Sobriety Substance use type: marijuana Adopted: No Caregiver/Support person: No Foster care: No Housing: apartment Number of Children: 2 number of grandchildren: 0 Education Level: high school Do you need help understanding health information?: Never current occupation: Disabled Pets and animals: Yes (1) Pets and animals: cat(s) Do you think of yourself as: straight/heterosexual Current gender identity: female What is your relationship status?: How often do you talk on the phone with friends or family?: decline to answer How often do you get together with friends or relatives?: decline to answer Do you belong to any clubs or organized social groups?: decline to answer Panel score (0-1 are the most socially isolated patients): 0 What type of physical activity do you participate in: walking Frequency: 1-2 times per week Lauren/Adventist: [employer] Special lauren needs: No Seatbelt use: always Drive intox or ride w/intox vibratory pile driver: No Do you feel safe at home: Yes Do you feel safe in your relationship?: Yes Female Reproductive History Menstrual Age of Menarche: 16 Duration of menses: other control method: permanent sterilization History History 2 Para 2 Hx # Term Pregnancies Multiple births Hx # Pregnancies Ectopic pregnancies AB induced Hx Number of Living Children AB spontaneous Past Pregnancies Del. Date GA/Weeks # Preg Succ Route Wgt Sex Labor Lgth Anesth esia Location Prov Complic 08/30/01 40 No Yes vaginal Female 03/25/02 40 No Yes vaginal Male Delivery Date: 08/30/01 [facility]: [facility]02 Last Updated by: [facility] Exam Const General: no acute distress Orientation: alert HENMT Head: normal to inspection Ears: external ears normal General nose exam: external nose normal Mouth: moist mucous membranes Eyes General: appearance normal, both eyes and all related structures Neck Neck: normal visual inspection Chest Chest: normal inspection of the chest and no crepitus Resp Effort & Inspection: normal respiratory effort and able to speak in complete sentences Auscultation: clear to auscultation bilaterally Cardio Jugular venous pressure: no JVD Rate: regular rate Heart Sounds: no murmurs Skin General skin exam: no rashes or lesions noted Neuro General: patient alert and patient oriented x3 Extrem General: normal to inspection Psych Mental Status: mental status grossly normal Course Vital Signs Vital signs: Vital Signs Temperature 36.8 C 03/27/23 16:06 Pulse 91 H 03/27/23 16:06 Respiratory Rate 12 03/27/23 16:06 Blood Pressure 110/70 03/27/23 16:06 Pulse Oximetry 98 03/27/23 16:06 Temperature 36.8 C 03/27/23 16:06 Temperature Source Skin 03/27/23 16:06 Pulse 91 H 03/27/23 16:06 Respiratory Rate 12 03/27/23 16:06 Respiratory Effort Normal 03/27/23 16:19 Blood Pressure 110/70 03/27/23 16:06 Blood Pressure Position Supine 03/27/23 16:06 Pulse Oximetry 98 03/27/23 16:06 Oxygen Delivery Method Room Air 03/27/23 16:06 Oxygen Flow Rate 0 03/27/23 16:06 Pain Level 0 03/27/23 16:06
[2023-03-27 17:15] LABS: Bilirubin Negative (Negative); Blood Negative (Negative); Clarity Clear (Clear); Glucose Negative (Negative); Ketones 40 mg/dL (Negative); Leukocyte Esterase Negative (Negative); Nitrite Negative (Negative); Specific Gravity 1.025 (1.005-1.025)
[2023-03-27 17:17] LABS: BE (Venous) -2 mmol/L (-2-3); HCO3 (Venous) 23 mmol/L (23-28); O2 Sat (Venous) 88 %; TCO2 (Venous) 21 mmol/L (24-29); pCO2 (Venous) 38 mmHg (41-51); pH (Venous) 7.39 (7.31-7.41); pO2 (Venous) 49 mmHg
[2023-03-27 17:20] LABS: Abs Immature Grans 0.03 10^3/uL (0.0-0.06); Absolute Basophil Count 0.02 10^3/uL (0.0-0.2); Absolute Eosinophil Count 0.04 10^3/uL (0.0-0.7); Absolute Lymphocyte Count 2.97 10^3/uL (1.2-3.4); Absolute Monocyte Count 0.65 10^3/uL (0.1-0.8); Absolute Neutrophil Count 3.95 10^3/uL (1.2-6.7); Basophils % 0.3; Eosinophils % 0.5; HCT 41.2 % (36.0-46.0); HGB 14.6 g/dL (11.2-15.7); Immature Grans % 0.4; Lymphocytes % 38.8; MCH 33.8 pg (27.0-33.0); MCHC 35.4 % (32.0-36.0); MCV 95 fL (80-95); MPV 10.4 fL (8.0-11.0); Monocytes % 8.5; Neutrophils % 51.5; Platelet Count 235 10^3/uL (130-400); RBC 4.32 10^6/uL (3.93-5.22); RDW 11.7 % (11.7-14.6); RDW-SD 41.2 fL; WBC 7.66 10^3/uL (4.4-10.8)
[2023-03-27 17:21] LABS: *AMPHETAMINES SCREEN URINE Negative (Negative); *BARBITURATES SCREEN URINE Negative (Negative); *BENZODIAZEPINES SCREEN URINE Negative (Negative); Cannabinoids THC Negative (Negative); Cocaine Screen,Urine Negative (Negative); METHADONE URINE SCREEN Negative (Negative); OPIATES URINE SCREEN Negative (Negative)
[2023-03-27 17:28] LABS: Tricyclic Antidepressants Negative (Negative)
[2023-03-27 17:29] LABS: PTT Activated 26.6 sec (21.5-31.9); Prothrombin Time 10.1 sec (9.3-11.0)
[2023-03-27 17:34] LABS: Acetaminophen < 2 ug/mL (10-30)
[2023-03-27 17:36] LABS: Ammonia 19 umol/L (11-32)
[2023-03-27 17:42] LABS: ALT 25 U/L (14-59); AST 29 U/L (15-37); Albumin 3.4 g/dL (3.4-5.0); Alkaline Phosphatase 101 U/L (46-116); Anion Gap 12.1 mmol/L (3-11); BUN 11 mg/dL (7-18); Bilirubin, Total 0.4 mg/dL (0.2-1.0); CO2 23.9 mmol/L (21.0-32.0); CREATININE 0.6 mg/dL (0.55-1.02); Calcium 9.1 mg/dL (8.5-10.1); Chloride 104 mmol/L (98-107); Estimated GFR 114.86 (mL/min/1.73m2); Glucose 167 mg/dL (74-106); Magnesium 1.8 mg/dL (1.8-2.4); Sodium 140 mmol/L (136-145); TSH (W/Ref FT4) 3.29 uIU/mL (0.36-3.74); Total Protein 7.2 g/dL (6.4-8.2)
[2023-03-27 17:45] LABS: ETHANOL BLOOD < 3.0 mg/dL (<10); Troponin I < 50 ng/L (<or=60)
[2023-03-27 17:57] LABS: Procalcitonin < 0.1 ng/mL
--- NOTE | 2023-03-27 18:02 | DI.VRAD_ITS ---
PROCEDURE INFORMATION: Exam: CT Head Without Contrast Exam date and time: 03/27/2023 5:25 PM Age: 42 years old Clinical indication: Other: Fall, ? seizure TECHNIQUE: Imaging protocol: Computed tomography of the head without contrast. COMPARISON: CT HEAD WO 01/05/2023 2:57 PM FINDINGS: Brain: Normal. No hemorrhage. Unremarkable white matter. No mass effect. Cerebral ventricles: No ventriculomegaly. Paranasal sinuses: Visualized sinuses are unremarkable. No fluid levels. Mastoid air cells: Visualized mastoid air cells are well aerated. Bones/joints: Unremarkable. No acute fracture. Soft tissues: Unremarkable. IMPRESSION: No evidence for acute intracranial abnormality. PROCEDURE INFORMATION: Exam: CT Cervical Spine Without Contrast Exam date and time: 03/27/2023 5:25 PM Age: 42 years old Clinical indication: Other: Fall, ? seizure TECHNIQUE: Imaging protocol: Computed tomography of the cervical spine without contrast. COMPARISON: CT HEAD CERVICAL SPINE WO 11/17/2022 2:04 AM FINDINGS: Bones/joints: No acute fracture. Normal alignment. No significant disc bulge or herniation. No severe spinal canal stenosis. No significant neural foraminal narrowing. Lungs: Lung apices are normal. Soft tissues: Unremarkable. IMPRESSION: No evidence for acute posttraumatic abnormality. Dictated and Authenticated by: Lizz Goldberg MD. Ordering:ARGENIS Castro MD
== END 2023-03-27 18:52 | disposition home or self-care (01) ==
LOC: ER 19:11
PROVIDERS: Emergency Provider Emergency Medicine; PCP Family Medicine
DX: R55 Syncope and collapse (principal); E11.9 Type 2 diabetes mellitus without complications; E03.9 Hypothyroidism, unspecified; Z79.84 Long term (current) use of oral hypoglycemic drugs; F17.210 Nicotine dependence, cigarettes, uncomplicated
CPT/HCPCS: 36415; 80053; 80307; 82805; 84145; 93005; 99284; 70450; 72125; 80320; 80329; 81003; 82140; 83735; 84443; 84484; 85025; 85610; 85730; 93010; 99283

== ENCOUNTER 2023-04-20 00:43 | Emergency (ER) | payer MEDICAID, SELFPAY ==
[2023-04-20] VITALS (24 sets, daily range): BP systolic 96–118; BP diastolic 61–76; PULSE 74–101; RESP 11–22; TEMP 36.6; O2SAT 96–100
--- NOTE | 2023-04-20 00:45 | RT.EKG_ITS ---
APPROVED REPORT Exam: Resting ECG Reason for Exam: syncopal episode Patient Location: E HR:98 bpm ECG Measurements Heart Rate 98 AXIS OH 160 P 47 QRSd 81 QRS 47 QT 350 T 54 QTc 447 Conclusion Sinus rhythm...normal P axis, V-rate 60- 99 NSR, normal intervals, normal axis, no STEMI
--- NOTE | 2023-04-20 01:00 | DI.CT_ITS ---
Exam(s) CT HEAD WO EXAM: CT HEAD WO CLINICAL HISTORY: syncope. TECHNIQUE: Imaging Protocol: Axial computed tomography images with coronal and sagittal reformatted images were created and reviewed COMPARISON: CT CT HEAD CERVICAL SPINE WO from 03/27/2023 FINDINGS: Ventricles and Extra axial spaces: Normal in size and morphology for the patient's age. Hemorrhage: None. Cerebral parenchyma: No evidence of acute infarct or mass. Midline shift: None. Brainstem/Cerebellum: Normal. Calvarium: Normal. Visualized Paranasal sinuses/Mastoids: Clear. Soft Tissues: Unremarkable. IMPRESSION: No acute intracranial process. RADIATION DOSE DELIVERED: 714.59mGy.cm Total DLP DATA REPOSITORY: All CT scans at this facility are submitted to the National Radiology Data Registry (NRDR) Dose Index Registry (DIR) with the [employer] (ACR). RADIATION OPTIMIZATION: All CT scans at this facility use at least one of these dose optimization te chniques: automated exposure control; mA and/or kV adjustment per patient size (includes targeted exa ms where dose is matched to clinical indication); or iterative reconstruction.
--- NOTE | 2023-04-20 01:00 | DI.RAD_ITS ---
Exam(s) XR CHEST 2V PA LATERAL EXAM: XR CHEST 2V PA LATERAL CLINICAL HISTORY: syncope TECHNIQUE: 2D digital imaging was performed. COMPARISON: CR,XR XR PORTABLE CHEST AP from 01/10/2023 FINDINGS: HEART: Normal size. Aorta: Not dilated. PULMONARY VASCULATURE: Normal. LUNGS: Clear. PLEURAL SPACE: No pleural effusion or pneumothorax. BONE:Unremarkable for age. IMPRESSION: No acute abnormality. DATA REPOSITORY: RADIATION DOSE DELIVERED:
[2023-04-20 01:16] LABS: Abs Immature Grans 0.05 10^3/uL (0.0-0.06); Absolute Basophil Count 0.02 10^3/uL (0.0-0.2); Absolute Eosinophil Count 0.05 10^3/uL (0.0-0.7); Absolute Lymphocyte Count 3.87 10^3/uL (1.2-3.4); Absolute Monocyte Count 0.62 10^3/uL (0.1-0.8); Absolute Neutrophil Count 4.33 10^3/uL (1.2-6.7); Basophils % 0.2; Eosinophils % 0.6; HCT 40.8 % (36.0-46.0); HGB 14.3 g/dL (11.2-15.7); Immature Grans % 0.6; Lymphocytes % 43.3; MCH 33.9 pg (27.0-33.0); MCV 97 fL (80-95); MPV 9.4 fL (8.0-11.0); Monocytes % 6.9; Neutrophils % 48.4; Platelet Count 232 10^3/uL (130-400); RBC 4.22 10^6/uL (3.93-5.22); RDW 11.9 % (11.7-14.6); WBC 8.94 10^3/uL (4.4-10.8)
--- NOTE | 2023-04-20 01:17 | ED.GENADUL_ITS ---
Discharge Plan Disposition Patient Disposition: Home Condition: Improving Discharge Details Chief Complaint: [id number] Clinical Impression: Syncope Primary Care Provider: Antoni Ohara ED Provider: Los Leary Home Meds and New Rx's Prescriptions: No Action gabapentin 300 mg capsule 300 mg PO QHS metformin 1,000 mg tablet 1,000 mg PO BID Qty: 180 3RF semaglutide 2 mg/dose (8 mg/3 mL) pen injector 2 mg subcut QWEEK Qty: 3 3RF Patient Comments: pt not familiar with this medication levothyroxine 75 mcg tablet See Rx Instructions .ROUTE .COMPLEX Qty: 90 0RF Dose Instruction: TAKE 1 TABLET BY MOUTH DAILY Rx Instructions: TAKE 1 TABLET BY MOUTH DAILY benztropine 2 mg Tablet 2 mg PO HS divalproex 250 mg Tablet Extended Release 24 Hr 250 mg PO HS divalproex 500 mg Tablet,Delayed Release (Dr/Ec) 1,000 mg PO BID olanzapine 15 mg Tablet 15 mg PO DAILY citalopram [Celexa] 20 mg tablet 20 mg PO DAILY Patient Comments: Take 1 tablet by mouth every morning topiramate [Topamax] 50 mg tablet 50 mg PO BID Patient Comments: Take 1 tablet by mouth twice a day Aristada 882 mg/3.2 mL suspension,extended rel syring 882 mg IM Q4W Patient Comments: not taking Rx Instructions: every 4 weeks Discharge Instructions Instructions: Syncope (ED) Medical Decision Making 42-year-old female history of diabetes, schizophrenia, recurrent syncope, presents after syncopal episode from a seated position, no chest pain or shortness of breath, neurologically intact moving all extremities following commands, ambulatory without assistance no ataxia, EKG normal sinus rhythm nonischemic. Consider dehydration versus electrolyte abnormality versus less likely arrhythmia ACS or PE versus less likely intracranial hemorrhage versus polypharmacy versus tox lower suspicion for infectious etiology. Must also consider seizure activity. Basic labs imaging EKG chest x-ray fluids close reassessment. 2: 35 resting comfortably no acute distress Labs and imaging unremarkable. Neurologically intact hemodynamically stable. Vital signs improved after fluids with lower heart rate and higher blood pressure. Consider component of dehydration in the setting of Ozempic use HPI General Date/Time Provider Initiated Documentation: 04/20/23 00:57 . HPI Narrative: 42-year-old female history of schizophrenia, hypothyroidism, diabetes, presents after possible syncopal episode from a seated position, patient denies chest pain shortness of breath headache nausea or vomiting, patient recently started Ozempic within the last couple of months, fingerstick normal in the field Related Data Home Medications Medication Instructions Recorded Confirmed gabapentin 300 mg capsule 300 mg PO QHS 10/25/18 04/20/23 aripiprazole lauroxil 882 mg/3.2 882 mg IM Q4W 07/12/21 04/20/23 mL suspension, ext.rel. IM syringe (Aristada) citalopram 20 mg tablet (Celexa) 20 mg PO DAILY 07/12/21 04/20/23 topiramate 50 mg tablet (Topamax) 50 mg PO BID 07/12/21 04/20/23 benztropine 2 mg tablet 2 mg PO HS 09/17/21 04/20/23 divalproex 250 mg tablet,extended 250 mg PO HS 09/17/21 04/20/23 release 24 hr divalproex 500 mg tablet,delayed 1,000 mg PO BID 09/17/21 04/20/23 release olanzapine 15 mg tablet 15 mg PO DAILY 09/17/21 04/20/23 metformin 1,000 mg tablet 1,000 mg PO BID #180 tabs 02/15/23 04/20/23 semaglutide 2 mg/dose (8 mg/3 mL) 2 mg (0.75 mL) subcut QWEEK #3 mL 02/15/23 04/20/23 subcutaneous pen injector levothyroxine 75 mcg tablet See Rx Instructions .Route 04/04/23 04/20/23 .COMPLEX #90 tabs Previous Rx's Medication Instructions Recorded metformin 1,000 mg tablet 1,000 mg PO BID #180 tabs 02/15/23 semaglutide 2 mg/dose (8 mg/3 mL) 2 mg (0.75 mL) subcut QWEEK #3 mL 02/15/23 subcutaneous pen injector levothyroxine 75 mcg tablet See Rx Instructions .Route 04/04/23 .COMPLEX #90 tabs Allergies Allergy/AdvReac Type Severity Reaction Status Date / Time codeine Allergy Mild Unverified 04/20/23 02:09 General Stated Complaint: [id number] CECILIA: 3 Review of Systems Narrative: Review of Systems Constitutional: negative Eyes: negative ENT: negative Cardiovascular: Syncope Respiratory: negative Gastrointestinal: negative : negative Musculoskeletal: negative Skin: negative Neurologic: negative Psych: negative PFSH All Active Problems (Updated 04/20/23 @ 02:36 by Los Leary MD) Syncope (Chronic) Syncope (Chronic) Chronic diarrhea (Acute) Nonalcoholic steatohepatitis (Acute) Hypothyroid (Chronic) Hirsutism (Acute) Dysfunctional uterine bleeding (Acute) Pelvic mass in female (Acute) Oligomenorrhea (Acute) Uterine mass (Acute) Schizophrenia (Chronic) Diabetes mellitus type 2 in obese (Acute) Medical History Deviated nasal septum Drug overdose, intentional H/O suicide attempt History of hypothyroidism Non compliance w medication regimen RLS (restless legs syndrome) Schizoaffective disorder Trigeminal neuralgia of left side of face (01/03/18) Type 2 diabetes mellitus Yeast dermatitis Surgical History H/O pilonidal cyst Ligation of fallopian tube S/p breast implant removal Sep 2019 S/P breast implant, left S/P foot surgery Family History Mother Diabetes Father Heart disease Social History (Updated 02/15/23 @ 14:48 by Jasmina Ayala) Smoking/Tobacco Use Status: Current-Occasional Tobacco Type: cigarettes and cigars Quit status: considering quitting Smoking risk assessment performed?: Yes Alcohol Intake: never Drug use: Current Sobriety Substance use type: marijuana Adopted: No Caregiver/Support person: No Foster care: No Housing: apartment Number of Children: 2 number of grandchildren: 0 Education Level: high school Do you need help understanding health information?: Never current occupation: Disabled Pets and animals: Yes (1) Pets and animals: cat(s) Do you think of yourself as: straight/heterosexual Current gender identity: female What is your relationship status?: How often do you talk on the phone with friends or family?: decline to answer How often do you get together with friends or relatives?: decline to answer Do you belong to any clubs or organized social groups?: decline to answer Panel score (0-1 are the most socially isolated patients): 0 What type of physical activity do you participate in: walking Frequency: 1-2 times per week Lauren/Evangelical: Buddhist Special lauren needs: No Seatbelt use: always Drive intox or ride w/intox ross carrier driver: No Do you feel safe at home: Yes Do you feel safe in your relationship?: Yes Female Reproductive History Menstrual Age of Menarche: 16 Duration of menses: other control method: permanent sterilization History History 2 Para 2 Hx # Term Pregnancies Multiple births Hx # Pregnancies Ectopic pregnancies AB induced Hx Number of Living Children AB spontaneous Past Pregnancies Del. Date GA/Weeks # Preg Succ Route Wgt Sex Labor Lgth Anesth esia Location Prov Complic 08/30/01 40 No Yes vaginal Female 03/25/02 40 No Yes vaginal Male Delivery Date: 08/30/01 [facility]: [facility]02 Last Updated [facility]: [facility] Exam Narrative Exam Narrative: Physical Examination General: alert, awake, cooperative, resting comfortably, no acute distress HEENT: normocephalic, atraumatic; PERRL, EOM intact, conjunctiva normal; no nasal discharge; moist mucous membranes, oral and pharyngeal mucosa normal, tolerating secretions Neck: supple, trachea midline; full ROM Chest: normal to inspection Respiratory: normal respiratory effort, speaking in full sentences, clear to auscultation, no wheezing, rales or rhonchi Cardiac: regular rate, regular rhythm, S1S2 intact, no murmurs rubs or gallops GI: abdomen soft, non-tender, non-distended; no palpable mass or hepatosplenomegaly Skin: no lesions, rashes or trauma appreciated Neuro: AAOx3, normal speech, moving all extremities Extremities: No peripheral edema Psych: Appropriate mood and affect Course Vital Signs Vital signs: Vital Signs Temperature 36.6 C 04/20/23 00:45 Pulse 97 H 04/20/23 00:45 Respiratory Rate 16 04/20/23 00:45 Blood Pressure 110/74 04/20/23 00:45 Pulse Oximetry 100 04/20/23 00:45 Temperature 36.6 C 04/20/23 00:45 Pulse 97 H 04/20/23 00:45 Respiratory Rate 16 04/20/23 00:45 Respiratory Effort Normal, Non-Labored 04/20/23 00:53 Blood Pressure 110/74 04/20/23 00:45 Pulse Oximetry 100 04/20/23 00:45 Oxygen Delivery Method Room Air 04/20/23 00:45 Oxygen Flow Rate 0 04/20/23 00:45
[2023-04-20] MEDS: Normal Saline 1,000 ML 1000 ML IV (01:33)
[2023-04-20 01:43] LABS: ALT 18 U/L (14-59); AST 7 U/L (15-37); Albumin 3.4 g/dL (3.4-5.0); Alkaline Phosphatase 107 U/L (46-116); Anion Gap 10.9 mmol/L (3-11); BUN 12 mg/dL (7-18); Bilirubin, Total 0.3 mg/dL (0.2-1.0); CO2 25.1 mmol/L (21.0-32.0); CREATININE 0.7 mg/dL (0.55-1.02); Calcium 9.6 mg/dL (8.5-10.1); Chloride 103 mmol/L (98-107); Creatine Kinase 32 U/L (26-192); Estimated GFR 110.67 (mL/min/1.73m2); Glucose 145 mg/dL (74-106); Magnesium 1.9 mg/dL (1.8-2.4); Potassium 3.9 mmol/L (3.5-5.1); Sodium 139 mmol/L (136-145); TSH (W/Ref FT4) 1.14 uIU/mL (0.36-3.74); Total Protein 7.3 g/dL (6.4-8.2)
[2023-04-20 01:47] LABS: *AMPHETAMINES SCREEN URINE Negative (Negative); *BARBITURATES SCREEN URINE Negative (Negative); *BENZODIAZEPINES SCREEN URINE Negative (Negative); Cannabinoids THC Negative (Negative); Cocaine Screen,Urine Negative (Negative); METHADONE URINE SCREEN Negative (Negative); OPIATES URINE SCREEN Negative (Negative); Tricyclic Antidepressants Negative (Negative)
[2023-04-20 01:47] LABS: ETHANOL BLOOD < 3.0 mg/dL (<10); Troponin I < 50 ng/L (<or=60)
--- NOTE | 2023-04-20 02:17 | DI.VRAD_ITS ---
PROCEDURE INFORMATION: Exam: XR Chest Exam date and time: 04/20/2023 2:00 AM Age: 42 years old Clinical indication: Other: Syncope TECHNIQUE: Imaging protocol: Radiologic exam of the chest. Views: 2 views. COMPARISON: CR XR PORTABLE CHEST AP 01/10/2023 10:24 PM FINDINGS: Lungs: There is no evidence of focal pulmonary consolidation. The pulmonary vasculature is normal. Pleural spaces: There is no evidence of pneumothorax. There are no pleural effusions present. Heart/Mediastinum: The cardiac silhouette is within normal limits. The mediastinum is normal. Bones/joints: The spine, sternum, ribs, and pectoral girdles show no evidence of acute abnormality Other findings: There are no soft tissue masses or calcifications. IMPRESSION: No active cardiopulmonary disease. Dictated and Authenticated by: Farzad Wallace MD. Ordering:SHELLY Madison MD
--- NOTE | 2023-04-20 02:20 | DI.VRAD_ITS ---
PROCEDURE INFORMATION: Exam: CT Head Without Contrast Exam date and time: 04/20/2023 1:55 AM Age: 42 years old Clinical indication: Syncope and collapse; Prior surgery; Surgery date: 6+ months; Surgery type: H/o tbi TECHNIQUE: Imaging protocol: Computed tomography of the head without contrast. Radiation optimization: All CT scans at this facility use at least one of these dose optimization techniques: automated exposure control; mA and/or kV adjustment per patient size (includes targeted exams where dose is matched to clinical indication); or iterative reconstruction. COMPARISON: CT HEAD CERVICAL SPINE WO 03/27/2023 5:25 PM FINDINGS: Brain: There is no significant cerebral atrophy present. There is no significant white matter disease present. There is no evidence of intracranial hemorrhage. There is no evidence of acute intracranial injury or other pathologic process. There is no evidence of an acute ischemic event. No evidence of an acute intracranial abnormality. Cerebral ventricles: The ventricular system is normal in caliber and are seen in the midline. Paranasal sinuses: There is no evidence of fluid levels, mucoperiosteal thickening, or opacification to suggest acute or chronic sinusitis. Mastoid air cells: The mastoid aircells are normal. Orbital cavities: The orbits are normal without evidence of fracture. There is no evidence of retro-bulbar hemorrhage. There is no evidence of globe or lens injury. Bones/joints: The bony cranium shows no evidence of injury or other acute pathologic processes. Soft tissues: The extracranial soft tissues are normal. IMPRESSION: No evidence of an acute intracranial abnormality. Dictated and Authenticated by: Farzad Wallace MD. Ordering:SHELLY Madison MD
== END 2023-04-20 03:54 | disposition home or self-care (01) ==
PROVIDERS: Emergency Provider Emergency Medicine; PCP Family Medicine
DX: R55 Syncope and collapse (principal); E11.9 Type 2 diabetes mellitus without complications; E03.9 Hypothyroidism, unspecified; Z79.84 Long term (current) use of oral hypoglycemic drugs; F17.210 Nicotine dependence, cigarettes, uncomplicated; F17.290 Nicotine dependence, other tobacco product, uncomplicated; Z79.899 Other long term (current) drug therapy
CPT/HCPCS: 80053; 80307; 81025; 82550; 82962; 93005; 96360; 99285; 70450; 71046; 80320; 83735; 84443; 84484; 85025; 93010

== ENCOUNTER 2023-04-22 18:35 | Emergency (ER) | payer MEDICAID, SELFPAY ==
--- NOTE | 2023-04-22 18:30 | RT.EKG_ITS ---
APPROVED REPORT Exam: Resting ECG Reason for Exam: Syncope Patient Location: E HR:94 bpm ECG Measurements Heart Rate 94 AXIS IA 166 P 37 QRSd 77 QRS 25 QT 343 T 31 QTc 429 Conclusion Sinus rhythm...normal P axis, V-rate 60- 99 Narrow complex normal sinus rhythm at a rate of 94. Normal axis. Intervals within normal limits. I nferior T wave flattening. No ST segment abnormalities. No T wave inversions. Appears similar to adriana headley. Prior dated 2 days ago.
--- NOTE | 2023-04-22 18:35 | ED.GENADUL_ITS ---
Discharge Plan Disposition Patient Disposition: Against Medical Advice Discharge Details Clinical Impression: Syncope Primary Care Provider: Antoni Ohara ED Provider: Marcio Horn Home Meds and New Rx's Prescriptions: Continued gabapentin 300 mg capsule 300 mg PO QHS metformin 1,000 mg tablet 1,000 mg PO BID Qty: 180 3RF semaglutide 2 mg/dose (8 mg/3 mL) pen injector 2 mg subcut QWEEK Qty: 3 3RF Patient Comments: pt not familiar with this medication levothyroxine 75 mcg tablet See Rx Instructions .ROUTE .COMPLEX Qty: 90 0RF Dose Instruction: TAKE 1 TABLET BY MOUTH DAILY Rx Instructions: TAKE 1 TABLET BY MOUTH DAILY benztropine 2 mg Tablet 2 mg PO HS divalproex 250 mg Tablet Extended Release 24 Hr 250 mg PO HS Patient Comments: ptstates not taking divalproex 500 mg Tablet,Delayed Release (Dr/Ec) 1,000 mg PO BID topiramate [Topamax] 50 mg tablet 50 mg PO BID Patient Comments: Take 1 tablet by mouth twice a day Aristada 882 mg/3.2 mL suspension,extended rel syring 882 mg IM Q4W Patient Comments: not taking Rx Instructions: every 4 weeks Discharge Instructions Instructions: Syncope (ED) Additional Instructions: You are seen in the emergency department after your loss of consciousness. Please follow-up with your primary care provider to touch base about a Holter monitor. Please return to the emergency department if you develop any shortness of breath chest pain nausea or vomiting. Please continue taking your home medications as previously prescribed. You elected to leave AGAINST MEDICAL ADVICE. You understood the risks including damage to your heart electrolyte abnormalities and the possibility of . If you choose to return to the emergency department you may do so at any time. Medical Decision Making This is an overall very well-appearing normothermic and not tachycardic 42-year-old female with recurrent syncopal episodes. I considered PE however the patient is PERC negative. Patient denies black or bloody stools however will obtain a hemoglobin. No history of heart failure. Syncope was nonexertional. No family history of sudden .Patient is moving all 4 extremities spontaneously so my suspicion for CVA is low so I do not feel the patient is a tPA candidate. Furthermore given my low suspicion for CVA I do not feel the patient requires an MRI. No tonic-clonic activity or tongue biting or loss of bowel or bladder control so I do not feel that the patient requires an EEG as my suspicion is exceedingly low for seizures. No nuchal rigidity nor fevers so doubt meningitis and I feel that the risks of lumbar puncture outweigh the benefits. Patient had a reassuring normal head CT several days ago. I am not suspicious for mass as result and furthermore patient has not been vomiting. Prior to labs being drawn patient requested to leave. 1. I explained the current situation and condition to the patient. 2. I explained the recommended treatment for this condition -electrolyte assessment CBC assessments and troponin along with cardiac monitoring 3. I explained the risk of not having the recommended treatment -electrolyte abnormalities myocardial injury and 4. The patient understands this information has no questions, and repeated back this information. 5. The patient states that they need to leave and will return if her symptoms worsen 6. Mental status is lucid and the patient has decision-making capacity. 7. Patient is withdrawing her capacity for care I requested that health mmd unit teacher have the patient seen within the next week by her primary care provider. 7:15 PM Repeat vitals reassuring. Chronic conditions affecting the care of the patient: Schizophrenia schizophrenic disorder obesity in the setting of syncope I considered: High risk features: 1. Age of the patient (elderly a greatest risk) 2. Syncope during exertion 3. Family history of sudden [place] syncope rule: 1. History of CHF 2. Hematocrit < 30 3. EKG abnormalities 4. Present shortness of breath 5. Systolic blood pressure less than 90 Cardiac arrhythmia/EKG or abnormalities considered: 1. ACS: No ST changes 2. Tachy-augie: No blocks 3. WPW: No delta wave 4. Brugada: No RSR'; R-bundle appearance 5. HCM: No LVH; needle Qs/ T-wave inversions 6. Short/ Long QT: 300 < QTc < 500; no family hx 7. Arrhythmogenic Right Ventricular Dysplasia: No epsilon wave, no inverted Ts in anterior precordium History obtained from an outside historian: EMT External record review: [facility] [place] EMR Diagnostic interpretations performed by me: Per my independent interpretation EKG shows: Narrow complex normal sinus rhythm at a rate of 94. Normal axis. Intervals within normal limits. Inferior T wave flattening. No ST segment abnormalities. No T wave inversions. Appears similar to prior. Prior dated 2 days ago. Medications: N/A Social determinants of health affecting disposition: N/A Management discussed with: N/A Treatment/interventions considered: Hospitalization but deferred and will pursue an empiric trial of expectant outpatient management. Response to therapies provided: N/A HPI General Date/Time Provider Initiated Documentation: 04/22/23 18:35 . HPI Narrative: This is a 42-year-old female with a history of orthostatic syncope arriving via paramedics in the setting of 2 syncopal episodes that occurred today while sitting. Patient is diabetic and her fingerstick blood glucose was reassuring per EMS. She did not hit her head. She denies shortness of breath chest pain nausea or vomiting. No dysuria no frequency. No tongue biting. No loss of bowel or bladder control. No shortness of breath. No calf pain. No cough. No fevers. She has never had a Holter monitor. She occasionally smokes tobacco a nd occasionally uses marijuana. She denies routine ethanol. No recent falls. No calf pain. No history of DVT. Related Data Home Medications Medication Instructions Recorded Confirmed gabapentin 300 mg capsule 300 mg PO QHS 10/25/18 04/22/23 aripiprazole lauroxil 882 mg/3.2 882 mg IM Q4W 07/12/21 04/22/23 mL suspension, ext.rel. IM syringe (Aristada) topiramate 50 mg tablet (Topamax) 50 mg PO BID 07/12/21 04/22/23 benztropine 2 mg tablet 2 mg PO HS 09/17/21 04/22/23 divalproex 250 mg tablet,extended 250 mg PO HS 09/17/21 04/22/23 release 24 hr divalproex 500 mg tablet,delayed 1,000 mg PO BID 09/17/21 04/22/23 release metformin 1,000 mg tablet 1,000 mg PO BID #180 tabs 02/15/23 04/22/23 semaglutide 2 mg/dose (8 mg/3 mL) 2 mg (0.75 mL) subcut QWEEK #3 mL 02/15/23 04/22/23 subcutaneous pen injector levothyroxine 75 mcg tablet See Rx Instructions .Route 04/04/23 04/22/23 .COMPLEX #90 tabs Previous Rx's Medication Instructions Recorded metformin 1,000 mg tablet 1,000 mg PO BID #180 tabs 02/15/23 semaglutide 2 mg/dose (8 mg/3 mL) 2 mg (0.75 mL) subcut QWEEK #3 mL 02/15/23 subcutaneous pen injector levothyroxine 75 mcg tablet See Rx Instructions .Route 04/04/23 .COMPLEX #90 tabs Allergies Allergy/AdvReac Type Severity Reaction Status Date / Time codeine Allergy Mild Unverified 04/22/23 18:41 General CECILIA: 3 PFSH All Active Problems (Updated 04/22/23 @ 19:02 by Marcio Horn MD) Orthostatic hypotension (Acute) Syncope (Chronic) Syncope (Chronic) Chronic diarrhea (Acute) Nonalcoholic steatohepatitis (Acute) Hypothyroid (Chronic) Hirsutism (Acute) Dysfunctional uterine bleeding (Acute) Pelvic mass in female (Acute) Oligomenorrhea (Acute) Uterine mass (Acute) Schizophrenia (Chronic) Diabetes mellitus type 2 in obese (Acute) Medical History Deviated nasal septum Drug overdose, intentional H/O suicide attempt History of hypothyroidism Non compliance w medication regimen RLS (restless legs syndrome) Schizoaffective disorder Trigeminal neuralgia of left side of face (01/03/18) Type 2 diabetes mellitus Yeast dermatitis Surgical History H/O pilonidal cyst Ligation of fallopian tube S/p breast implant removal Sep 2019 S/P breast implant, left S/P foot surgery Family History Mother Diabetes Father Heart disease Social History (Updated 02/15/23 @ 14:48 by Jasmina Ayala) Smoking/Tobacco Use Status: Current-Occasional Tobacco Type: cigarettes and cigars Quit status: considering quitting Smoking risk assessment performed?: Yes Alcohol Intake: never Drug use: Current Sobriety Substance use type: marijuana Adopted: No Caregiver/Support person: No Foster care: No Housing: apartment Number of Children: 2 number of grandchildren: 0 Education Level: high school Do you need help understanding health information?: Never current occupation: Disabled Pets and animals: Yes (1) Pets and animals: cat(s) Do you think of yourself as: straight/heterosexual Current gender identity: female What is your relationship status?: How often do you talk on the phone with friends or family?: decline to answer How often do you get together with friends or relatives?: decline to answer Do you belong to any clubs or organized social groups?: decline to answer Panel score (0-1 are the most socially isolated patients): 0 What type of physical activity do you participate in: walking Frequency: 1-2 times per week Lauren/Uatsdin: Restoration Special lauren needs: No Seatbelt use: always Drive intox or ride w/intox cdl a driver: No Do you feel safe at home: Yes Do you feel safe in your relationship?: Yes Female Reproductive History Menstrual Age of Menarche: 16 Duration of menses: other control method: permanent sterilization History History 2 Para 2 Hx # Term Pregnancies Multiple births Hx # Pregnancies Ectopic pregnancies AB induced Hx Number of Living Children AB spontaneous Past Pregnancies Del. Date GA/Weeks # Preg Succ Route Wgt Sex Labor Lgth Anesth esia Location Prov Complic 08/30/01 40 No Yes vaginal Female 03/25/02 40 No Yes vaginal Male Delivery Date: 08/30/01 [facility]: [facility]02 Last Updated by: [facility] Exam Narrative Exam Narrative: General: Well-appearing in no acute distress speaking in complete sentences. Head: Normocephalic, atraumatic. Eye: Extraocular eye movements intact. No conjunctival injection. No scleral icterus. Ear, nose, mouth, throat: Grossly normal inspection. Normal voice, handling secretions normally. Neck: Trachea midline. Cardiovascular: Well-perfused distal extremities. Regular rate and rhythm Respiratory: Nonlabored respiration. Clear lungs Gastrointestinal: Nondistended abdomen. Soft nontender Musculoskeletal: No edema. Moving all 4 extremities spontaneously. Skin: Normal for age and race, grossly normal temperature and turgor. No acute rash. Neurologic: Alert and appropriate, no apparent acute deficits. GCS 15 Psychiatric: Mood and manner are appropriate. Grooming and personal hygiene are appropriate.
[2023-04-22 18:38] VITALS: BP 119/73; PULSE 92; RESP 15; TEMP 36.7; O2SAT 99
[2023-04-22 19:07] VITALS: BP 106/64; PULSE 91; RESP 14; TEMP 36.7; O2SAT 100
--- NOTE | 2023-04-22 19:07 | NUR.NOTE ---
Nursing Note: It Analyst went into room #3 to start IV and obtain blood work; pt asked to leave and stated she does not want to stay for further testing. Further stating her children are outside and she would like to go home with them. MD informed and patient was informed of risks of leaving and benefits of staying. 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 Ambulated out ED after dressing; all belongings with patient.
--- NOTE | 2023-04-22 19:09 | NUR.NOTE ---
Pt placed on referral list to see PCP for a halter monitor within [address] Horn.
== END 2023-04-22 19:12 | disposition left against medical advice (07) ==
LOC: ER 23:04
PROVIDERS: Emergency Provider Emergency Medicine; PCP Family Medicine
DX: R55 Syncope and collapse (principal); E11.9 Type 2 diabetes mellitus without complications
CPT/HCPCS: 80048; 93005; 99283; 80164; 84484; 84703; 85025; 93010

== ENCOUNTER → 2023-04-29 16:43 | Emergency (ER) | payer MEDICAID, SELFPAY ==
[2023-04-29 16:46] VITALS: BP 100/70; PULSE 100; RESP 16; TEMP 36.4; O2SAT 94
== END ==
PROVIDERS: Emergency Provider Emergency Medicine; PCP Family Medicine
DX: Z53.21 Procedure and treatment not carried out due to patient leaving prior to being seen by health care provider (principal)

== ENCOUNTER 2023-04-29 22:18 | Emergency (ER) | payer MEDICAID, SELFPAY ==
[2023-04-29 22:24] VITALS: BP 110/74; PULSE 94; RESP 15; TEMP 36.7; O2SAT 94
--- NOTE | 2023-04-29 22:26 | W.ED.GENAD ---
Discharge Plan Disposition Patient Disposition: Home Condition: Stable Discharge Details Clinical Impression: Schizophrenia Primary Care Provider: Antoni Ohara ED Provider: Melody Walker Home Meds and New Rx's Prescriptions: Continued gabapentin 300 mg capsule 300 mg PO QHS metformin 1,000 mg tablet 1,000 mg PO BID Qty: 180 3RF levothyroxine 75 mcg tablet See Rx Instructions .ROUTE .COMPLEX Qty: 90 0RF Dose Instruction: TAKE 1 TABLET BY MOUTH DAILY Rx Instructions: TAKE 1 TABLET BY MOUTH DAILY benztropine 2 mg Tablet 2 mg PO HS divalproex 500 mg Tablet,Delayed Release (Dr/Ec) 1,000 mg PO BID topiramate [Topamax] 50 mg tablet 50 mg PO BID Patient Comments: Take 1 tablet by mouth twice a day No Action semaglutide 2 mg/dose (8 mg/3 mL) pen injector 2 mg subcut QWEEK Qty: 3 3RF Patient Comments: pt not familiar with this medication divalproex 250 mg Tablet Extended Release 24 Hr 250 mg PO HS Patient Comments: ptstates not taking Aristada 882 mg/3.2 mL suspension,extended rel syring 882 mg IM Q4W Patient Comments: not taking Rx Instructions: every 4 weeks Discharge Instructions Instructions: Schizophrenia (ED) Additional Instructions: continue medications as currently prescribed follow safety plan as outlined by mental health plan Referrals: Antoni Ohara DO [Primary Care Provider] - Discharge Data Discharge Date/Time-TO BE ENTERED AT DEPARTURE: 04/29/23 23:43 Medical Decision Making This is a 42-year-old well-known to the emergency department just evaluated returns for what she reports was a syncopal episode. She has had multiple of these lately there is no sign of seizure-like activity most likely psychogenic work-ups have been unremarkable on arrival she tells me that what she really needs is a medication adjustment. Denies any suicidal or homicidal ideation. I'm going to check her Depakote level. Mental health is consulted and evaluated patient and plan is for outpatient mental health follow-up. Medically stable and safe for discharge to home Medical Records Medical records reviewed: Yes I reviewed the patient's medical records. HPI General Mode of arrival: EMS. Date/Time Provider Initiated Documentation: 04/29/23 22:26. Limitations to Documentation: other (psychiatric, behavioral). Information obtained by: patient. HPI Narrative: patient presents for evaluation after a reported syncopal episode. she reports she has several episodes a week. they are brought on by stressful situation and she feels that she needs her psychiatric medication adjusted. she denies current suicidal ideation, does not feel she is at risk of harm or risk of harming someone else. Related Data Home Medications Medication Instructions Recorded Confirmed gabapentin 300 mg capsule 300 mg PO QHS 10/25/18 04/29/23 aripiprazole lauroxil 882 mg/3.2 882 mg IM Q4W 07/12/21 04/29/23 mL suspension, ext.rel. IM syringe (Aristada) topiramate 50 mg tablet (Topamax) 50 mg PO BID 07/12/21 04/29/23 benztropine 2 mg tablet 2 mg PO HS 09/17/21 04/29/23 divalproex 250 mg tablet,extended 250 mg PO HS 09/17/21 04/29/23 release 24 hr divalproex 500 mg tablet,delayed 1,000 mg PO BID 09/17/21 04/29/23 release metformin 1,000 mg tablet 1,000 mg PO BID #180 tabs 02/15/23 04/29/23 semaglutide 2 mg/dose (8 mg/3 mL) 2 mg (0.75 mL) subcut QWEEK #3 mL 02/15/23 04/29/23 subcutaneous pen injector levothyroxine 75 mcg tablet See Rx Instructions .Route 04/04/23 04/29/23 .COMPLEX #90 tabs Previous Rx's Medication Instructions Recorded metformin 1,000 mg tablet 1,000 mg PO BID #180 tabs 02/15/23 semaglutide 2 mg/dose (8 mg/3 mL) 2 mg (0.75 mL) subcut QWEEK #3 mL 02/15/23 subcutaneous pen injector levothyroxine 75 mcg tablet See Rx Instructions .Route 04/04/23 .COMPLEX #90 tabs Allergies Allergy/AdvReac Type Severity Reaction Status Date / Time codeine Allergy Mild Unverified 04/29/23 22:24 General CECILIA: 3 Review of Systems All systems reviewed & are unremarkable except as noted in HPI and below PFSH All Active Problems (Updated 04/29/23 @ 23:32 by Melody Walker NP) Orthostatic hypotension (Acute) Syncope (Chronic) Chronic diarrhea (Acute) Nonalcoholic steatohepatitis (Acute) Hypothyroid (Chronic) Hirsutism (Acute) Dysfunctional uterine bleeding (Acute) Pelvic mass in female (Acute) Oligomenorrhea (Acute) Uterine mass (Acute) Schizophrenia (Chronic) Diabetes mellitus type 2 in obese (Acute) Medical History Deviated nasal septum Drug overdose, intentional H/O suicide attempt History of hypothyroidism Non compliance w medication regimen RLS (restless legs syndrome) Schizoaffective disorder Trigeminal neuralgia of left side of face (01/03/18) Type 2 diabetes mellitus Yeast dermatitis Surgical History H/O pilonidal cyst Ligation of fallopian tube S/p breast implant removal Sep 2019 S/P breast implant, left S/P foot surgery Family History Mother Diabetes Father Heart disease Social History (Updated 02/15/23 @ 14:48 by Jasmina Ayala) Smoking/Tobacco Use Status: Current-Occasional Tobacco Type: cigarettes and cigars Quit status: considering quitting Smoking risk assessment performed?: Yes Alcohol Intake: never Drug use: Current Sobriety Substance use type: marijuana Adopted: No Caregiver/Support person: No Foster care: No Housing: apartment Number of Children: 2 number of grandchildren: 0 Education Level: high school Do you need help understanding health information?: Never current occupation: Disabled Pets and animals: Yes (1) Pets and animals: cat(s) Do you think of yourself as: straight/heterosexual Current gender identity: female What is your relationship status?: How often do you talk on the phone with friends or family?: decline to answer How often do you get together with friends or relatives?: decline to answer Do you belong to any clubs or organized social groups?: decline to answer Panel score (0-1 are the most socially isolated patients): 0 What type of physical activity do you participate in: walking Frequency: 1-2 times per week Lauren/Mormonism: Religion Special lauren needs: No Seatbelt use: always Drive intox or ride w/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 Date GA/Weeks # Preg Succ Route Wgt Sex Labor Lgth Anesthesia Location Prov Complic 08/30/01 40 No Yes vaginal Female 03/25/02 40 No Yes vaginal Male Delivery Date: 08/30/01 [facility]: [facility]02 Last Updated by: [facility] Exam Const General: disheveled and ill appearing (Older than stated age) chronically Nutritional Appearance: average body habitus Orientation: alert and awake HENMT Head: normal to inspection Mouth: oral mucosae normal Cardio Rate: regular rate Rhythm: regular rhythm GI Inspection: normal to inspection Palpation: soft Skin General skin exam: no rashes or lesions noted Neuro General: patient alert, patient awake and patient oriented x3 Extrem General: normal to inspection and full ROM
[2023-04-29 23:13] LABS: VALPROIC ACID 91.8 ug/mL
== END 2023-04-29 23:43 | disposition home or self-care (01) ==
PROVIDERS: Emergency Provider Nurse Practitioner Acute Care; PCP Family Medicine
DX: F20.9 Schizophrenia, unspecified (principal)
CPT/HCPCS: 99283; 80164

== ENCOUNTER 2023-05-02 10:25 | Outpatient (CLI) | payer MEDICAID, SELFPAY ==
[2023-05-02 10:05] LABS: Abs Immature Grans 0.05 10^3/uL (0.0-0.06); Absolute Basophil Count 0.03 10^3/uL (0.0-0.2); Absolute Eosinophil Count 0.18 10^3/uL (0.0-0.7); Absolute Lymphocyte Count 5.19 10^3/uL (1.2-3.4); Absolute Neutrophil Count 3.94 10^3/uL (1.2-6.7); Basophils % 0.3; Eosinophils % 1.8; HCT 41.1 % (36.0-46.0); HGB 14.5 g/dL (11.2-15.7); Immature Grans % 0.5; Lymphocytes % 51.4; MCHC 35.3 % (32.0-36.0); MCV 97 fL (80-95); MPV 9.5 fL (8.0-11.0); Monocytes % 6.9; Neutrophils % 39.1; Platelet Count 282 10^3/uL (130-400); RBC 4.26 10^6/uL (3.93-5.22); RDW 12.2 % (11.7-14.6); RDW-SD 43.5 fL; WBC 10.09 10^3/uL (4.4-10.8)
[2023-05-02 10:16] LABS: Hemoglobin A1C 6.3 % (<5.7)
[2023-05-02 10:54] LABS: Diff Comment Agrees w/ Instrument; RBC Morphology Normal
[2023-05-02 11:02] LABS: VALPROIC ACID 101.7 ug/mL
[2023-05-02 11:23] LABS: Vitamin D 25 Total 38.6 ng/mL (30-100)
[2023-05-02 11:26] LABS: ALT 23 U/L (14-59); AST 14 U/L (15-37); Albumin 3.2 g/dL (3.4-5.0); Alkaline Phosphatase 107 U/L (46-116); Anion Gap 8.6 mmol/L (3-11); BUN 10 mg/dL (7-18); Bilirubin, Total 0.5 mg/dL (0.2-1.0); CO2 24.4 mmol/L (21.0-32.0); CREATININE 0.7 mg/dL (0.55-1.02); Calcium 8.9 mg/dL (8.5-10.1); Calculated LDL 124 mg/dL (<100); Chloride 105 mmol/L (98-107); Cholesterol 194 mg/dL (<200); Estimated GFR 110.67 (mL/min/1.73m2); Glucose 121 mg/dL (74-106); HDL Cholesterol 35 mg/dL (40-60); Potassium 3.7 mmol/L (3.5-5.1); Sodium 138 mmol/L (136-145); TSH (W/Ref FT4) 0.91 uIU/mL (0.36-3.74); Total Protein 7.1 g/dL (6.4-8.2); Triglyceride 176 mg/dL (<150); Vitamin B12 1286 pg/mL (193-986)
== END 2023-05-02 10:26 | disposition home or self-care (01) ==
LOC: LBO 10:25
PROVIDERS: PCP Family Medicine; Visit Provider Registered Nurse
DX: F25.0 Schizoaffective disorder, bipolar type (principal); Z79.899 Other long term (current) drug therapy; Z51.81 Encounter for therapeutic drug level monitoring
CPT/HCPCS: 36415; 80053; 80061; 82306; 80164; 82607; 83036; 84443; 85025

== ENCOUNTER → 2023-06-07 00:55 | Outpatient (CLI) | payer MEDICAID, SELFPAY ==
--- NOTE | 2023-06-07 07:23 | DI.US_ITS ---
Exam(s) US PELVIS EXAM: US PELVIS CLINICAL HISTORY: anatomy,PELVIC PAIN,R10.2 TECHNIQUE: Transabdominal imaging was performed using standard protocol. Patient declined transvagi nal imaging. COMPARISON: No exams were available for comparison FINDINGS: Exam somewhat limited due to lack of bladder distension like of transvaginal images. UTERUS: Anteverted. 7.6 x 4.8 x 6.6 cm Endometrium: 8 mm Myometrium: Unremarkable. Cervix: Unremarkable. OVARIES: Right: Cyst or mass: None. Left: Cyst or mass: None. DOPPLER: Color: Symmetric and uniform flow to both ovaries. No hyperemia. CUL-DE-SAC: Free fluid: None. IMPRESSION: 1. Normal-appearing uterus with endometrial stripe within normal limits. 2. Unremarkable bilateral ovaries. DATA REPOSITORY:
== END ==
PROVIDERS: PCP Family Medicine; Visit Provider Obstetrics & Gynecology
DX: R10.2 Pelvic and perineal pain (principal)
CPT/HCPCS: 76856

== ENCOUNTER 2023-06-22 15:22 | Emergency (ER) | payer MEDICAID, SELFPAY ==
[2023-06-22] VITALS (22 sets, daily range): BP systolic 98–141; BP diastolic 63–76; PULSE 80–110; RESP 11–22; TEMP 36.6; O2SAT 99
[2023-06-22 16:34] LABS: Abs Immature Grans 0.02 10^3/uL (0.0-0.06); Absolute Basophil Count 0.03 10^3/uL (0.0-0.2); Absolute Eosinophil Count 0.06 10^3/uL (0.0-0.7); Absolute Monocyte Count 0.47 10^3/uL (0.1-0.8); Absolute Neutrophil Count 3.84 10^3/uL (1.2-6.7); Basophils % 0.4; Eosinophils % 0.9; HCT 38.9 % (36.0-46.0); HGB 13.6 g/dL (11.2-15.7); Immature Grans % 0.3; Lymphocytes % 36.1; MCH 34.2 pg (27.0-33.0); MCV 98 fL (80-95); MPV 9.6 fL (8.0-11.0); Monocytes % 6.8; Neutrophils % 55.5; Platelet Count 268 10^3/uL (130-400); RBC 3.98 10^6/uL (3.93-5.22); RDW 11.9 % (11.7-14.6); RDW-SD 42.8 fL; WBC 6.92 10^3/uL (4.4-10.8)
[2023-06-22 16:45] LABS: BUN 11 mg/dL (7-18); CREATININE 0.6 mg/dL (0.55-1.02); Chloride 102 mmol/L (98-107); Estimated GFR 114.86 (mL/min/1.73m2); Glucose 117 mg/dL (74-106); Potassium 3.4 mmol/L (3.5-5.1); Sodium 136 mmol/L (136-145)
[2023-06-22 16:49] LABS: VALPROIC ACID 65.3 ug/mL
--- NOTE | 2023-06-22 17:00 | ED.GENADUL_ITS ---
Discharge Plan Disposition Patient Disposition: Home Condition: Stable Discharge Details Clinical Impression: Visual disturbance Primary Care Provider: Antoni Ohara ED Provider: Melody Walker Home Meds and New Rx's Prescriptions: Continued gabapentin 300 mg capsule 300 mg PO QHS metformin 1,000 mg tablet 1,000 mg PO BID Qty: 180 3RF fludrocortisone 0.1 mg tablet 0.1 mg PO DAILY Qty: 90 3RF levothyroxine 75 mcg tablet See Rx Instructions .ROUTE .COMPLEX Qty: 90 0RF Dose Instruction: TAKE 1 TABLET BY MOUTH DAILY Rx Instructions: TAKE 1 TABLET BY MOUTH DAILY semaglutide 2 mg/dose (8 mg/3 mL) pen injector 2 mg subcut QWEEK Qty: 3 3RF Patient Comments: pt not familiar with this medication benztropine 2 mg Tablet 2 mg PO HS divalproex 250 mg Tablet Extended Release 24 Hr 250 mg PO HS Patient Comments: ptstates not taking divalproex 500 mg Tablet,Delayed Release (Dr/Ec) 1,000 mg PO BID topiramate [Topamax] 50 mg tablet 50 mg PO BID Patient Comments: Take 1 tablet by mouth twice a day Aristada 882 mg/3.2 mL suspension,extended rel syring 882 mg IM Q4W Patient Comments: not taking Rx Instructions: every 4 weeks Discharge Instructions Instructions: Blurred Vision (ED) Additional Instructions: please scheduled eye exam take all medication as directed can use moisturizing eye drops as directed. do not rub your eyes Referrals: Antoni Ohara DO [Primary Care Provider] - Discharge Data Discharge Date/Time-TO BE ENTERED AT DEPARTURE: 06/22/23 17:55 Medical Decision Making Patient presents for complaints of 3 weeks of visual disturbance. Will obtain eye acuity. Physical exam is unremarkable we will check Depakote level and routine lab blood pressure elevated on arrival but normalized on recheck. While being monitored in the department she remains unremarkable with unchanged physical exam. 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 Lab Data Lab results reviewed: Yes I reviewed the patient's lab results. Lab results narrative: Laboratory Results - last 24 hr 06/22/23 16:24 WBC 6.92 RBC 3.98 Hgb 13.6 Hct 38.9 MCV 98 H MCH 34.2 H MCHC 35.0 RDW 11.9 Plt Count 268 MPV 9.6 Immature Gran % 0.3 Neutrophils % 55.5 Lymphocytes % 36.1 Monocytes % 6.8 Eosinophils % 0.9 Basophils % 0.4 Nucleated RBC % 0.0 Absolute Neutrophils 3.84 Absolute Lymphocytes 2.50 Absolute Monocytes 0.47 Absolute Eosinophils 0.06 Absolute Basophils 0.03 Sodium 136 Potassium 3.4 L Chloride 102 Carbon Dioxide 23.0 Anion Gap 11.0 BUN 11 Creatinine 0.6 Est GFR (CKD-EPI 2020) 114.86 Glucose 117 H Calcium 9.0 Valproic Acid 65.3 HPI General Mode of arrival: ambulatory . Date/Time Provider Initiated Documentation: 06/22/23 15:23 . Limitations to Documentation: other (history of schizophrenia, poor historian) . Information obtained by: patient . HPI Narrative: Presents to the emergency department with a 3-week history of reported visual disturbance. She does not wear contacts. She denies loss of vision. She reports seeing colors intermittently after she blinks. She denies any headaches. Denies any history of similar symptoms. Denies any recent cold-like symptoms or viral illness. Related Data Home Medications Medication Instructions Recorded Confirmed gabapentin 300 mg capsule 300 mg PO QHS 10/25/18 06/22/23 aripiprazole lauroxil 882 mg/3.2 882 mg IM Q4W 07/12/21 06/22/23 mL suspension, ext.rel. IM syringe (Aristada) topiramate 50 mg tablet (Topamax) 50 mg PO BID 07/12/21 06/22/23 benztropine 2 mg tablet 2 mg PO HS 09/17/21 06/22/23 divalproex 250 mg tablet,extended 250 mg PO HS 09/17/21 06/22/23 release 24 hr divalproex 500 mg tablet,delayed 1,000 mg PO BID 09/17/21 06/22/23 release metformin 1,000 mg tablet 1,000 mg PO BID #180 tabs 02/15/23 06/22/23 levothyroxine 75 mcg tablet See Rx Instructions .Route 04/04/23 06/22/23 .COMPLEX #90 tabs fludrocortisone 0.1 mg tablet 0.1 mg PO DAILY #90 tabs 05/27/23 06/22/23 semaglutide 2 mg/dose (8 mg/3 mL) 2 mg (0.75 mL) subcut QWEEK #3 mL 06/07/23 06/22/23 subcutaneous pen injector Previous Rx's Medication Instructions Recorded metformin 1,000 mg tablet 1,000 mg PO BID #180 tabs 02/15/23 levothyroxine 75 mcg tablet See Rx Instructions .Route 04/04/23 .COMPLEX #90 tabs fludrocortisone 0.1 mg tablet 0.1 mg PO DAILY #90 tabs 05/27/23 semaglutide 2 mg/dose (8 mg/3 mL) 2 mg (0.75 mL) subcut QWEEK #3 mL 06/07/23 subcutaneous pen injector Allergies Allergy/AdvReac Type Severity Reaction Status Date / Time codeine Allergy Mild Unverified 06/22/23 16:04 General Stated Complaint: Dizzy/Sync CECILIA: 3 Review of Systems All systems reviewed & are unremarkable except as noted in HPI and below PFSH All Active Problems (Updated 06/22/23 @ 17:35 by Melody Walker NP) Visual disturbance (Acute) Pelvic pain (Acute) Orthostatic hypotension (Acute) Chronic diarrhea (Acute) Nonalcoholic steatohepatitis (Acute) Hypothyroid (Chronic) Hirsutism (Acute) Dysfunctional uterine bleeding (Acute) Oligomenorrhea (Acute) Schizophrenia (Chronic) Diabetes mellitus type 2 in obese (Acute) Medical History (Updated 06/22/23 @ 17:35 by Melody Walker NP) Uterine mass Non compliance w medication regimen Yeast dermatitis RLS (restless legs syndrome) H/O suicide attempt Schizoaffective disorder Deviated nasal septum Trigeminal neuralgia of left side of face (01/03/18) Type 2 diabetes mellitus History of hypothyroidism Drug overdose, intentional Surgical History S/p breast implant removal Sep 2019 S/P breast implant, left H/O pilonidal cyst S/P foot surgery Ligation of fallopian tube Family History Mother Diabetes Father Heart disease Social History (Updated 02/15/23 @ 14:48 by Jasmina Ayala) Smoking/Tobacco Use Status: Current-Occasional Tobacco Type: cigarettes and cigars Quit status: considering quitting Smoking risk assessment performed?: Yes Alcohol Intake: never Drug use: Current Sobriety Substance use type: marijuana Adopted: No Caregiver/Support person: No Foster care: No Housing: apartment Number of Children: 2 number of grandchildren: 0 Education Level: high school Do you need help understanding health information?: Never current occupation: Disabled Pets and animals: Yes (1) Pets and animals: cat(s) Do you think of yourself as: straight/heterosexual Current gender identity: female What is your relationship status?: How often do you talk on the phone with friends or family?: decline to answer How often do you get together with friends or relatives?: decline to answer Do you belong to any clubs or organized social groups?: decline to answer Panel score (0-1 are the most socially isolated patients): 0 What type of physical activity do you participate in: walking Frequency: 1-2 times per week Lauren/Sikhism: Latter-Day Special lauren needs: No Seatbelt use: always Drive intox or ride w/intox service car driver: No Do you feel safe at home: Yes Do you feel safe in your relationship?: Yes Female Reproductive History Menstrual Age of Menarche: 16 Duration of menses: other control method: permanent sterilization History History 2 Para 2 Hx # Term Pregnancies Multiple births Hx # Pregnancies Ectopic pregnancies AB induced Hx Number of Living Children AB spontaneous Past Pregnancies Del. Date GA/Weeks # Preg Succ Route Wgt Sex Labor Lgth Anesth esia Location [facility] 08/30/01 40 No Yes vaginal Female 03/25/02 40 No Yes vaginal Male Delivery Date: 08/30/01 [facility]: 03/25/02 Last Updated by: [facility] Exam Const General: cooperative, comfortable and no acute distress Nutritional Appearance: average body habitus Orientation: alert, awake and oriented x3 HENMT Head: normal to inspection, normocephalic and atraumatic Face and sinus: normal facial exam Mouth: oral mucosae normal Eyes General: appearance normal, both eyes and all related structures Alignment and Position: alignment normal Periorbital: periorbital findings normal Eyelids: eyelids normal Conjunctivae: conjunctivae normal Sclera: sclerae normal Cornea: corneas normal Pupils: PERRL EOM: EOM intact bilaterally Neck Neck: normal visual inspection and full ROM Chest Chest: normal inspection of the chest Resp Effort & Inspection: normal respiratory effort Cardio Rate: regular rate Rhythm: regular rhythm GI Inspection: normal to inspection Palpation: soft Skin General skin exam: no rashes or lesions noted Neuro General: patient alert, patient awake and patient oriented x3 Extrem General: normal to inspection and full ROM Course Vital Signs Vital signs: Vital Signs Temperature 36.6 C 06/22/23 15:31 Pulse 110 H 06/22/23 15:31 Respiratory Rate 18 06/22/23 15:31 Blood Pressure 141/76 H 06/22/23 15:31 Pulse Oximetry 99 06/22/23 15:31 Temperature 36.6 C 06/22/23 15:31 Temperature Source Temporal Artery Scan 06/22/23 15:31 Pulse 90 06/22/23 16:45 Pulse 85 06/22/23 16:50 Respiratory Rate 13 06/22/23 16:50 Respiratory Effort Normal, Non-Labored 06/22/23 16:04 Respiratory Depth Normal 06/22/23 16:04 Respiratory Pattern Normal 06/22/23 16:04 Blood Pressure 102/65 06/22/23 16:45 Blood Pressure Mean 76 06/22/23 16:45 Pulse Oximetry 99 06/22/23 15:31 Oxygen Delivery Method Room Air 06/22/23 15:31 Oxygen Flow Rate 0 06/22/23 15:31 Lab/Test Results Lab/Test Results: Laboratory Tests Range/Units 06/22/23 16:24 WBC (4.4-10.8) 10^3/uL 6.92 RBC (3.93-5.22) 10^6/uL 3.98 Hgb (11.2-15.7) g/dL 13.6 Hct (36.0-46.0) % 38.9 MCV (80-95) fL 98 H MCH (27.0-33.0) pg 34.2 H MCHC (32.0-36.0) % 35.0 RDW (11.7-14.6) % 11.9 Plt Count (130-400) 10^3/uL 268 MPV (8.0-11.0) fL 9.6 Immature Gran % 0.3 Neutrophils % 55.5 Lymphocytes % 36.1 Monocytes % 6.8 Eosinophils % 0.9 Basophils % 0.4 Nucleated RBC % (0.0-0.3) % 0.0 Absolute Neutrophils (1.2-6.7) 10^3/uL 3.84 Absolute Lymphocytes (1.2-3.4) 10^3/uL 2.50 Absolute Monocytes (0.1-0.8) 10^3/uL 0.47 Absolute Eosinophils (0.0-0.7) 10^3/uL 0.06 Absolute Basophils (0.0-0.2) 10^3/uL 0.03 Sodium (136-145) mmol/L 136 Potassium (3.5-5.1) mmol/L 3.4 L Chloride (98-107) mmol/L 102 Carbon Dioxide (21.0-32.0) mmol/L 23.0 Anion Gap (3-11) mmol/L 11.0 BUN (7-18) mg/dL 11 Creatinine (0.55-1.02) mg/dL 0.6 Est GFR (CKD-EPI 2020) (mL/min/1.73m2) 114.86 Glucose (74-106) mg/dL 117 H Calcium (8.5-10.1) mg/dL 9.0 Valproic Acid ( - 150) ug/mL 65.3
== END 2023-06-22 17:55 | disposition home or self-care (01) ==
PROVIDERS: Emergency Provider Nurse Practitioner Acute Care; PCP Family Medicine
DX: R42 Dizziness and giddiness (principal); H53.9 Unspecified visual disturbance; F20.9 Schizophrenia, unspecified; Z79.899 Other long term (current) drug therapy; E11.9 Type 2 diabetes mellitus without complications
CPT/HCPCS: 36415; 80048; 99283; 80164; 85025; 99284

== ENCOUNTER → 2023-06-27 02:40 | Outpatient (CLI) | payer MEDICAID, SELFPAY ==
--- NOTE | 2023-06-27 07:45 | DI.US_ITS ---
Exam(s) US CAROTID EXAM: US CAROTID CLINICAL HISTORY: Orthostatic hypotension and syncope,i95.1. TECHNIQUE: Ultrasound carotids performed using grayscale, color-flow, and spectral Doppler imaging. COMPARISON: US US PELVIS from 06/07/2023 FINDINGS: RIGHT CAROTID ARTERY: Plaque: Minimal. Velocity elevation: None. LEFT CAROTID ARTERY: Plaque: Minimal. Velocity elevation: None. VERTEBRAL ARTERIES: Antegrade flow. Measurements: R Bulb: 53cm/s PS / 12.8cm/s ED R CCA: 78.9cm/s PS / 21.9cm/s ED R ECA: 80.2cm/s PS / 10.2cm/s ED R ICA Prox: 55.6cm/s PS / 18cm/s ED R ICA Mid: 77cm/s PS / 32cm/s ED R ICA Distal: 79.6cm/s PS /33.3cm/s ED R Vert: 68cm/s PS / 19.2cm/s ED R SVR: 1 R DVR: 1.5 L Bulb: 40.9cm/s PS / 15.6cm/s ED L CCA: 55.6cm/s PS / 20.7cm/s ED L ECA: 69.8cm/s PS / 10.8cm/s ED L ICA Prox: 56.7cm/s PS / 22.8cm/s ED L ICA Mid: 69.7cm/s PS / 31.7cm/s ED L ICA Distal: 91.1cm/s PS / 38.1cm/s ED L Vert: 74.2cm/s PS / 28.8cm/s ED L SVR: 1.6 L DVR: 1.8 IMPRESSION: There is only mild plaque noted bilaterally at the carotid bulbs and proximal ICAs. No evidence for hemodynamically significant carotid stenosis. Antegrade flow is demonstrated in both vertebral arteries. Criteria for Carotid Stenosis: Normal: ICA PSV <125 cm/s no plaque or intimal thickening is visible. <50% stenosis: ICA PSV <125 cm/s and plaque or intimal thickening is visible. 50-69% stenosis: ICA PSV is 125-250 cm/s and plaque is visible. >70% stenosis to near occlusion: ICA PSV >250 cm/s with visible plaque and luminal narrowing. DATA REPOSITORY:
== END ==
PROVIDERS: PCP Family Medicine; Visit Provider Family Medicine
DX: I95.1 Orthostatic hypotension (principal)
CPT/HCPCS: 93880

== ENCOUNTER → 2023-07-13 00:03 | Outpatient (CLI) | payer MEDICAID, SELFPAY ==
--- OUTSIDE RECORDS SUMMARY | 2023-07-13 00:05 | XMS_ITS | CCD ---
Author Name Unknown Address [address] [place] [address] [phone] Organization Unknown Address [address] [place] [address] [phone] Care Team Providers Care Gliding Pilot Instructor Name Role Phone JENNY RUBIN Attending Physician [phone] JENNY RUBIN Er Physician 4 [phone] AMARA Lopez Registered Nurse [phone] Vital Signs Vital Sign Value Unit Date/Time [...] Units Test Ref Rang e ALCOHOL (ETHANOL) 43429-3 <3 mg/dL COMPREHENSIVE METABOLIC PANE L (CMP) [...] 2028-9 23 mmol/L L=22 H=34 ANION GAP 05696-6 12.6 mmol/L CALCIUM SERUM 98017-3 9.3 mg/dL L=8.2 H=10. 2 BILIRUBIN TOTAL 1975-2 0.2 mg/dL L=0.0 H=1 .3 ALK. PHOS. 6768-6 226 U/L L=46 H=116 SGOT (AST) 1920-8 27 U/L L=15 H=37 SGPT (ALT) 1742-6 53 U/L L=12 H=78 TOTAL PROTEIN 2885-2 7.9 gm/dL L=6.0 H=8.0 ALBUMIN 1751-7 3.4 gm/dL L=3.4 H=5.0 AGE 41 years eGFR (non-Afr.Amer.) 00922-1 102 mL/min eGFR (Afr-[place]) 65243-7 >120 mL/min GLUCOSE FINGER/HEEL CAPILLAR Y - [...] Test Units Test Ref Rang e MAGNESIUM 69251-0 1.9 mg/dL L=1.8 H=2.4 SALICYLATE SERUM* - [...] % 56.4 % L=10.0 H=50.0 MONO % 68814-8 9.1 % L=2.0 H=12.0 EOS % 1.9 % L=0.0 H=8.0 BASO % 0.4 % L=0.0 H=3.0 IG % 2514-8 0.7 % L=0.0 H=1.1 NRBC % 83285-7 0.0 % L=0.0 H=0.0 NEUT abs count 751-8 2.2 th/cmm L=1.6 H=8. 4 LYMPH abs count 731-0 3.9 th/cmm L=1.5 H=4 .0 MONO abs count 742-7 0.6 th/cmm L=0.2 H=1. 0 EOS abs count 711-2 0.1 th/cmm L=0.0 H=0.5 BASO abs count 704-7 0.0 th/cmm L=0.0 H=0. 2 IG abs count 26386-2 0.1 th/cmm L=0.0 H=0.1 NRBC abs count 18740-2 0.0 mil/cmm L=0.0 H=0. 0 RBC 789-8 [...] Test Units Test Ref Rang e CANNABINOIDS 33104-6 NEGATIVE N/A Cutoff = 50 ng/mL PHENCYCLIDINE 14320-4 NEGATIVE N/A Cutoff = 25 ng/mL COCAINE 55707-7 NEGATIVE N/A Cutoff = 150 n g/mL METHAMPHETAMINES 23364-2 NEGATIVE N/A Cutoff = 500 ng/mL OPIATES 08431-6 NEGATIVE N/A Cutoff = 100 n g/mL AMPHETAMINES 68454-9 NEGATIVE N/A Cutoff = 500 ng/mL BENZODIAZEPINES 10255-8 NEGATIVE N/A Cutoff = 150 ng/mL TRICYCLIC ANTIDEP 3533-7 NEGATIVE N/A Cutoff = 300 ng/mL METHADONE 12969-8 NEGATIVE N/A Cutoff = 200 n g/mL BARBITURATES 95040-0 NEGATIVE N/A Cutoff = 200 ng/mL OXYCODONE 60251-6 NEGATIVE N/A Cutoff = 100 n g/mL PROPOXYPHENE 99394-9 NEGATIVE N/A Cutoff = 300 ng/mL BUPRENORPHINE 3414-0 NEGATIVE N/A Cutoff = 10 mg/mL URINALYSIS WITH REFLEX CULT IF POSITIVE* - Collect Date/Time: 08/04/2022 11:09 Test Name Code Test Result Test Units Test Ref Rang e COLLECTION MODE: 52871-5 CLEAN CATCH N/A Color 5778-6 YELLOW N/A yellow Appearance 5767-9 CLEAR N/A clear Glucose urine 15566-9 >=1000 N/A negative mg /dl Bilirubin 5770-3 NEGATIVE N/A negative Ketones 2514-8 15 N/A negative mg/dl Spec gravity 5811-5 1.010 N/A 1.003 - 1.03 0 pH urine 2756-5 6.5 N/A 5.0 - 7.0 Protein 88117-9 NEGATIVE N/A negative mg/dl Urobilinogen 35646-9 0.2 N/A <or= 1 EU/dl Nitrite. 5802-4 NEGATIVE N/A negative Blood 5794-3 NEGATIVE N/A negative Leukocytes. NEGATIVE N/A negative MICROSCOPIC NOT INDICAT N/A TEST QUAL (SERUM) - Collect Date/Time: 08/04/2022 09:50 Test Name Code Test Result Test Units Test Ref Rang e TEST 2106-3 NEGATIVE N/A ORDER VENOUS BLOOD GAS* - Co [...] unspecified, not i ntractable, without status epilepticus [id number] 08/04/2022 Social History Unknown or Not Available. Patient Decision Aids Unknown or Not Available. Discharge Instructions You were admitted to [facility] on 08/04/2022 10:14 with a principal diagnosis of Epilepsy, unspecified, not intractable, without status epilepticus You had the following tests done:DRUG SCN 13 PANEL (MEDTOX)*URINALYSIS WITH REFLEX CULT IF POSITIVE*GLUCOSE FINGER/HEEL CAPILLARYGLUCOSE FINGER/HEEL CAPILLARYACETAMINOPHEN*ALCOHOL (ETHANOL)*CBC W/ DIFFERENTIAL*COMPREHENSIVE METABOLIC PANEL (CMP)MAGNESIUM SERUM*ORDER VENOUS BLOOD GAS* TEST QUAL (SERUM)SALICYLATE SERUM*TROPONIN HIGH SENSITIVITY*VALPROIC ACID (DEPAKENE)* You were discharged from [facility] on 08/04/2022 16:26 Should you have [...]
--- NOTE | 2023-07-13 10:30 | DI.US_ITS ---
APPROVED REPORT EXAM: Comprehensive 2D, Doppler, and color-flow Echocardiogram Patient Location: Out-Patient Project Product Manager: Mindy Arce RDCS (AE) Indications: Frequent syncope, orthostatic hypotension Other Information Study Quality: Adequate Conclusion Normal left ventricular wall thickness and chamber size. Ejection fraction is 55%. Wall motion is n ormal Normal right ventricular size and systolic function Both atria are normal in size There is no structural or hemodynamically significant valvular disease Estimated right ventricular systolic pressure is 22 mmHg Wall motion Left Ventricle The left ventricle is normal size. The left ventricular systolic function is normal. The left ventric ular ejection fraction is within the normal range. There is normal left ventricular wall thickness. T here is normal LV segmental wall motion. There is no ventricular septal defect visualized. LVEF is 55 %. Right Ventricle The right ventricle is normal size. The right ventricular systolic function is normal. Atria The left atrium size is normal. The right atrium size is normal. The interatrial septum is intact wit h no evidence for an atrial septal defect. Aortic Valve The aortic valve is normal in structure. Aortic valve is trileaflet. There is no aortic valvular sten osis. No aortic regurgitation is present. Mitral Valve The mitral valve is normal in structure. No evidence of mitral valve stenosis. Trace mitral regurgita tion. Tricuspid Valve The tricuspid valve is normal in structure. There is no tricuspid valve stenosis. Trace tricuspid reg urgitation. The RVSP is 22.1mmHg. Pulmonic Valve The pulmonary valve is normal in structure. There is no pulmonic valvular stenosis. There is no pulmo mahnaz valvular regurgitation. Great Vessels The aortic root is normal in size. The ascending aorta is normal in size. Aortic arch is normal in ca liber. IVC is normal in size and collapses >50% with inspiration. Pericardium There is no pericardial effusion. 2D Dimensions IVSD d PLAX 0.75 cm F: 0.6-1.0 Ao Root d 2.70 cm F: 2.7 - 3.3 LVPW d PLAX 0.78 cm F: 0.6 - 1.0 Ao Asc Diam d 2.85 cm F: 2.3 - 3.1 LVID d PLAX 4.10 cm F: 3.8 - 5.2 LVDs 3.01 cm F: 2.2 - 3.5 LV EF Teichholz 52.3 % FS 26.47 % LV EDV (Teich) 74.1 mL LV ESV (Teich) 35.4 mL M-Mode TAPSE 2.44 cm (M/F) >1.7 Auto EF LV EDV A4C 99.5 mL LV EDV A2C 104.3 mL LV EDV BP 103.6 mL LV ESV A4C 47.1 mL LV ESV A2C 52.5 mL LV ESV BP 50.1 mL LVEF(%) A4C 52.7 % LVEF(%) A2C 49.7 % LVEF(%) BP 51.7 % LV SV A4C 52.4 ml LV SV A2C 51.8 ml LV SV BP 53.5 ml LV CO A4C 3.6 L/min LV CO A2C 3.6 L/min LV CO BP 3.6 L/min HR A4C 68.18 BPM HR A2C 70.18 BPM LV EDV Index (BP) LV Strain Long Pk Overal Avg (s) 17.84 RV Strain Global Peak Long. Strain A4C 19.09 Global Peak Long. Strain A4C FW 21.22 LA Volume LA Length A4C 4.6 cm LA Length A2C 5.2 cm LA Area A4C s 14.53 cm2 LA Area A2C s 15.24 cm2 LA Vol A4C A-L 38.58 mL LA Vol A2C A-L 38.24 mL LA Vol Biplane A-L 40.5 mL LA Vol/BSA A4C A-L LA Vol/BSA A2C A-L LA Vol/BSA BP A-L 23.5 mL/m2 LA Vol A4C MOD 35.8 mL LA Vol A2C MOD 36.7 mL LA Vol BP MOD 38.1 mL RA Volume RA Area A4C 10.0 cm2 RA ESV A4C (A-L) 20.1mL RA Vol/BSA A4C A-L RA Length A4C 4.2 cm RA ESV A4C (MOD) 19.3mL LV Diastology MV E' medial 0.091 (>0.07 m/s) MV E Vmax 0.89 (0.4-1.3 m/s) MV E/E' MED 9.74 (<14) MV A Vmax 0.70 (0.4-1.3 m/s) MV E' lateral 0.149 (>0.1 m/s) E/A Ratio 1.3 MV E/E' LAT 5.95 (<14) MV E' Average 0.120 m/s MV E/E'(average) 7.38 Aortic Valve AoV Vmax 1.18 m/s LVOT Vmax 1.04 m/s AoV Peak Grad 5.6 mmHg LVOT Peak Grad 4.3 mmHg AoV Area (Vmax) 2.52 cm2 LVOT VTI 0.236 m AoV VTI 0.274 m LVOT Mean Grad 2.4 mmHg AoV Mean Devan. 0.84 m/s LVOT SV 67.67 mL AoV Mean Grad 3.2 mmHg LVOT Diam s 1.90 cm AoV Area (VTI) 2.47 cm2 Velocity Ratio 0.88 Mitral Valve MV DT 160 (160-240 msec) MV Vmax TIPS 0.80 m/s MV Mean Grad 1.1 (<2mmHg) MV VTI 0.226 m Pulmonary Valve PV Vmax 1.22 (0.5-1.5 m/s) RVOT Vmax 0.66 m/s PV Peak Grad 5.9 mmHg RVOT Peak Gr. 1.7 mmHg PV Mean Devan 0.81 m/s RVOT VTI 0.146 m PV Mean Grad 3.1 mmHg RVOT Mean Gr. 0.9 mmHg Tricuspid Valve RA Pressure 3.00 mmHg TR Vmax 2.18 m/s TV S' 0.12 m/s TR Peak Grad 19.0 mmHg RVSP (TR) 22.1 mmHg
== END ==
PROVIDERS: PCP Family Medicine; Visit Provider Family Medicine
DX: I95.1 Orthostatic hypotension (principal)
CPT/HCPCS: 93306

== ENCOUNTER 2023-07-19 16:15 | Emergency (ER) | payer MEDICAID, SELFPAY ==
--- NOTE | 2023-07-19 16:15 | DI.CT_ITS ---
Exam(s) CT HEAD WO EXAM: CT HEAD WO CLINICAL HISTORY: syncope. Headache. TECHNIQUE: Imaging Protocol: Axial computed tomography images with coronal and sagittal reformatted images were created and reviewed COMPARISON: CT CT HEAD WO from 04/20/2023 FINDINGS: There are no skull fractures. There is no fluid in the visualized paranasal sinuses. There is no evidence of intracranial hemorrhage, mass effect, or shift of midline structures. There are no extra-axial fluid collections. The ventricles are not enlarged or shifted and there is no blo od within the ventricular system nor within the basal cisterns. IMPRESSION: No acute intracranial findings on this noninfused CT scan of the brain. Called by myself to ER physician. RADIATION DOSE DELIVERED: Total DLP DATA REPOSITORY: All CT scans at this facility are submitted to the National Radiology Data Registry (NRDR) Dose Index Registry (DIR) with the [employer] ([employer]). RADIATION OPTIMIZATION: All CT scans at this facility use at least one of these dose optimization te chniques: automated exposure control; mA and/or kV adjustment per patient size (includes targeted exa ms where dose is matched to clinical indication); or iterative reconstruction.
--- NOTE | 2023-07-19 16:15 | RT.EKG_ITS ---
APPROVED REPORT Exam: Resting ECG Reason for Exam: syncope Patient Location: E HR:81 bpm ECG Measurements Heart Rate 81 AXIS DE 164 P 44 QRSd 85 QRS 54 QT 421 T 29 QTc 488 Conclusion Sinus rhythm...normal P axis, V-rate 60- 99
--- NOTE | 2023-07-19 16:22 | DI.RAD_ITS ---
Exam(s) XR CHEST 1V IN DI DEPT EXAM: XR CHEST 1V IN DI DEPT CLINICAL HISTORY: syncope. TECHNIQUE: 2D digital imaging was performed. COMPARISON: CR,XR XR CHEST 2V PA LATERAL from 04/20/2023 FINDINGS: Single AP portable view. Heart size is upper normal. The mediastinum is not widened. Lungs are clear. No infiltrates nor obvious pleural effusions. IMPRESSION: No acute pulmonary findings on this single AP portable view of the chest. DATA REPOSITORY: RADIATION DOSE DELIVERED:
[2023-07-19 16:23] VITALS: BP 100/36; PULSE 86; RESP 16; TEMP 36.8; O2SAT 99
--- NOTE | 2023-07-19 16:24 | W.ED.GENAD ---
Discharge Plan Disposition Patient Disposition: Home Discharge Details Chief Complaint: Dizzy/Sync Clinical Impression: Syncope Primary Care Provider: Antoni Ohara ED Provider: Corby Chicas Home Meds and New Rx's Prescriptions: No Action naproxen sodium [Aleve] 220 mg capsule 440 mg PO BID PRN (Reason: pain; achiness) Patient Comments: Has only taken twice recently (07/19/23) gabapentin 300 mg capsule 300 mg PO QHS metformin 1,000 mg tablet 1,000 mg PO BID Qty: 180 3RF benztropine 2 mg tablet 2 mg PO DAILY semaglutide 1 mg/dose (4 mg/3 mL) pen injector 2 mg subcut QWEEK Qty: 3 11RF fludrocortisone 0.1 mg tablet 0.1 mg PO DAILY Qty: 90 3RF semaglutide 2 mg/dose (8 mg/3 mL) pen injector 2 mg subcut QWEEK Qty: 3 3RF Hold Instructions: Formulary/Insurance Patient Comments: pt not familiar with this medication levothyroxine 75 mcg tablet See Rx Instructions .ROUTE .COMPLEX Qty: 90 3RF Dose Instruction: TAKE 1 TABLET BY MOUTH DAILY Rx Instructions: TAKE 1 TABLET BY MOUTH DAILY divalproex 500 mg Tablet,Delayed Release (Dr/Ec) 1,000 mg PO BID topiramate [Topamax] 50 mg tablet 50 mg PO BID Patient Comments: Take 1 tablet by mouth twice a day Aristada 882 mg/3.2 mL suspension,extended rel syring 882 mg IM Q4W Patient Comments: not taking Rx Instructions: every 4 weeks Discharge Instructions Instructions: Syncope (ED) Additional Instructions: You were seen in the emergency department for a fainting episode. We performed labs, EKG, chest x-ray, and CAT scan your head that were all unremarkable. The exact cause your symptoms is not known. You are symptom-free and wanted to leave. Follow-up with your primary care doctor soon as possible. Return to the emergency department if you develop any symptoms or if you have any other concerns. Referrals: Antoni Ohara DO [Primary Care Provider] - 1 week Medical Decision Making 42-year-old female with history of schizophrenia, type 2 diabetes, hypothyroidism is now presenting after syncope. Unclear cause of her symptoms. Now with headache. Doubt intracranial hemorrhage but will get CT head to rule out subarachnoid hemorrhage or other intracranial hemorrhage. Certainly within 6 hours of presentation so if unremarkable would not need to pursue further testing for subarachnoid hemorrhage or other intracranial hemorrhage or mass. Initial EKG is without signs of arrhythmia or any ischemic changes. Will send cardiac enzymes to evaluate for ACS though if unremarkable would not pursue the diagnosis further as I think that this is very unlikely. We will get broad labs look for electrolyte or metabolic cause of the patient's symptoms. Will check CBC to look for anemia. Will check TSH with free T4. Unclear cause of the patient's symptoms presently. She is resting comfortably now and alert and oriented x4 moving all extremities with a nonfocal neurologic exam and no other findings on exam or history to explain her symptoms currently. We will continue to monitor. 605pm reeval. Labs, EKG, chest x-ray, CT head unremarkable. Patient is alert and oriented x4 and moving all extremities and ambulating without difficulty. Complaint free. Unclear cause of her fainting episode today. Told to follow-up with her primary care doctor. Will discharge with return precautions. Medical Records Medical records reviewed: Yes I reviewed the patient's medical records. Imaging Data Radiologic Study: Attestation: I personally reviewed and interpreted this imaging study as follows: Imaging: CT Scan (head) Radiologist's impression: CT head unremarkable Radiologic Study #2: Attestation: I personally reviewed and interpreted this imaging study as follows: Imaging: X-Ray (chest) Radiologist's impression: Chest x-ray unremarkable ECG Data Attestation: I personally reviewed and interpreted this ECG (s) as follows: Prior ECG tracings: available for review Interpretation: Normal sinus rhythm. No ST or T wave changes. Normal FL and other intervals. Normal axis. Otherwise unremarkable EKG. HPI General Date/Time Provider Initiated Documentation: 07/19/23 16:20. Limitations to Documentation: no limitations. Information obtained by: patient. HPI Narrative: This is a 42-year-old female with history of schizophrenia, type 2 diabetes, hypothyroidism, who is now presenting after syncopal episode. Apparently has been getting worked up outpatient for multiple episodes of syncope. Has had multiple episodes of syncope visits here in our emergency department as well. No preceding symptoms. Ultimately was at the lab here in our hospital waiting to get a blood draw. Before the blood drive and started changed out fainting. Had rapid gain of consciousness. She does not remember this happening. Complaining of a little bit of a headache now but denying any other symptoms. No preceding symptoms otherwise. No drug or alcohol ingestion according to the patient. No SI or HI. Related Data Home Medications Medication Instructions Recorded Confirmed gabapentin 300 mg capsule 300 mg PO QHS 10/25/18 07/19/23 aripiprazole lauroxil 882 mg/3.2 882 mg IM Q4W 07/12/21 07/19/23 mL suspension, ext.rel. IM syringe (Aristada) topiramate 50 mg tablet (Topamax) 50 mg PO BID 07/12/21 07/19/23 divalproex 500 mg tablet,delayed 1,000 mg PO BID 09/17/21 07/19/23 release metformin 1,000 mg tablet 1,000 mg PO BID #180 tabs 02/15/23 07/19/23 fludrocortisone 0.1 mg tablet 0.1 mg PO DAILY #90 tabs 05/27/23 07/19/23 semaglutide 2 mg/dose (8 mg/3 mL) 2 mg (0.75 mL) subcut QWEEK #3 mL 06/07/23 07/19/23 subcutaneous pen injector levothyroxine 75 mcg tablet See Rx Instructions .Route 06/28/23 07/19/23 .COMPLEX #90 tabs benztropine 2 mg tablet 2 mg PO DAILY 07/12/23 07/19/23 semaglutide 1 mg/dose (4 mg/3 mL) 2 mg (1.5 mL) subcut QWEEK #3 mL 07/12/23 07/19/23 subcutaneous pen injector naproxen sodium 220 mg capsule 440 mg PO BID PRN pain; achiness 07/19/23 07/19/23 (Aleve) Previous Rx's Medication Instructions Recorded metformin 1,000 mg tablet 1,000 mg PO BID #180 tabs 02/15/23 fludrocortisone 0.1 mg tablet 0.1 mg PO DAILY #90 tabs 05/27/23 semaglutide 2 mg/dose (8 mg/3 mL) 2 mg (0.75 mL) subcut QWEEK #3 mL 06/07/23 subcutaneous pen injector levothyroxine 75 mcg tablet See Rx Instructions .Route 06/28/23 .COMPLEX #90 tabs semaglutide 1 mg/dose (4 mg/3 mL) 2 mg (1.5 mL) subcut QWEEK #3 mL 07/12/23 subcutaneous pen injector Allergies Allergy/AdvReac Type Severity Reaction Status Date / Time codeine Allergy Mild Unverified 07/19/23 16:31 General CECILIA: 3 Review of Systems Constitutional Constitutional: Denies chills, Denies fever(s) and Reports headache(s) Eyes Eyes: Denies change in vision ENT Ears, Nose, Mouth, and Throat: Reports headache(s) and Denies odynophagia Cardiovascular Cardiovascular: Denies chest pain and Denies dyspnea Comments: Syncope Respiratory Respiratory: Denies dyspnea Gastrointestinal Gastrointestinal: Denies abdominal pain, Denies diarrhea, Denies nausea, Denies odynophagia and Denies vomiting Genitourinary Genitourinary: Denies dysuria Musculoskeletal Musculoskeletal: Denies myalgias Integumentary/Breasts Skin/Breast: Denies changing lesions Neurologic Neurologic: Denies behavioral changes and Reports headache(s) Psychiatric Psychiatric: Denies behavioral changes Endocrine Endocrine: Denies heat intolerance Hematologic/Lymphatic Hematologic/Lymphatic: Denies lymphadenopathy PFSH All Active Problems (Updated 07/19/23 @ 18:07 by Corby Chicas MD) Syncope (Chronic) Fatigue (Acute) Visual disturbance (Acute) Pelvic pain (Acute) Orthostatic hypotension (Acute) Chronic diarrhea (Acute) Nonalcoholic steatohepatitis (Acute) Hypothyroid (Chronic) Hirsutism (Acute) Dysfunctional uterine bleeding (Acute) Oligomenorrhea (Acute) Schizophrenia (Chronic) Diabetes mellitus type 2 in obese (Acute) Medical History Uterine mass Non compliance w medication regimen Yeast dermatitis RLS (restless legs syndrome) H/O suicide attempt Schizoaffective disorder Deviated nasal septum Trigeminal neuralgia of left side of face (01/03/18) Type 2 diabetes mellitus History of hypothyroidism Drug overdose, intentional Surgical History S/p breast implant removal Sep 2019 S/P breast implant, left H/O pilonidal cyst S/P foot surgery Ligation of fallopian tube Family History Mother Diabetes Father Heart disease Social History Smoking/Tobacco Use Status: Current-Occasional Tobacco Type: cigarettes and cigars Quit status: considering quitting Smoking risk assessment performed?: Yes Alcohol Intake: never Drug use: Current Sobriety Substance use type: marijuana Adopted: No Caregiver/Support person: No Foster care: No Housing: apartment Number of Children: 2 number of grandchildren: 0 Education Level: high school Do you need help understanding health information?: Never current occupation: Disabled Pets and animals: Yes (1) Pets and animals: cat(s) Do you think of yourself as: straight/heterosexual Current gender identity: female What is your relationship status?: How often do you talk on the phone with friends or family?: decline to answer How often do you get together with friends or relatives?: decline to answer Do you belong to any clubs or organized social groups?: decline to answer Panel score (0-1 are the most socially isolated patients): 0 What type of physical activity do you participate in: walking Frequency: 1-2 times per week Lauren/Zoroastrianism: Mandaen Special lauren needs: No Seatbelt use: always Drive intox or ride w/intox cpr ambulance driver: No Do you feel safe at home: Yes Do you feel safe in your relationship?: Yes Female Reproductive History Menstrual Age of Menarche: 16 Duration of menses: other control method: permanent sterilization History History 2 Para 2 Hx # Term Pregnancies Multiple births Hx # Pregnancies Ectopic pregnancies AB induced Hx Number of Living Children AB spontaneous Past Pregnancies Del. Date GA/Weeks # Preg Succ Route Wgt Sex Labor Lgth Anesthesia Location Prov Complic 08/30/01 40 No Yes vaginal Female 03/25/02 40 No Yes vaginal Male Delivery Date: 08/30/01 [facility]: 03/25/02 Last Updated by: [facility] Exam Const General: cooperative Nutritional Appearance: average body habitus Orientation: alert, awake and oriented x3 HENMT Head: normal to inspection Ears: external ears normal Mouth: moist mucous membranes Eyes Pupils: PERRL EOM: EOM intact bilaterally and No nystagmus Neck Neck: full ROM and no tracheal deviation Chest Chest: normal inspection of the chest Resp Auscultation: clear to auscultation bilaterally Cardio Rate: regular rate Rhythm: regular rhythm GI Inspection: normal to inspection Palpation: soft, no guarding, not rigid and nontender Back/Spine/Pelvis Back: No no CVA tenderness Thoracic/Lumbar Spine: thoracic and lumbar spine normal to inspection Skin General skin exam: no rashes or lesions noted Neuro General: patient alert, patient awake and patient oriented x3 Cranial Nerves: CN's II-XI intact bilaterally, PERRL and no nystagmus Cognition: normal cognition Motor: muscle tone normal throughout and strength 5/5 throughout Sensory Exam: no sensory deficits noted Extrem General: normal to inspection
[2023-07-19] MEDS: Normal Saline 1,000 ML 1000 ML IV (16:31)
--- OUTSIDE RECORDS SUMMARY | 2023-07-19 16:35 | XMS_ITS | CCD ---
Author Name Unknown Address [address] [place] [address] [id number] Organization Unknown Address [address] [place] [address] [id number] Care Team Providers Care Meat Puller Name Role Phone JENNY RUBIN Attending Physician [phone] JENNY RUBIN Er Physician 8 [phone] AMARA Lopez Registered Nurse [phone] Vital Signs Vital Sign Value Unit Date/Time [...] Units Test Ref Rang e ALCOHOL (ETHANOL) 40904-2 <3 mg/dL COMPREHENSIVE METABOLIC PANE L (CMP) [...] 2028-9 23 mmol/L L=22 H=34 ANION GAP 14282-8 12.6 mmol/L CALCIUM SERUM 78305-4 9.3 mg/dL L=8.2 H=10. 2 BILIRUBIN TOTAL 1975-2 0.2 mg/dL L=0.0 H=1 .3 ALK. PHOS. 6768-6 226 U/L L=46 H=116 SGOT (AST) 1920-8 27 U/L L=15 H=37 SGPT (ALT) 1742-6 53 U/L L=12 H=78 TOTAL PROTEIN 2885-2 7.9 gm/dL L=6.0 H=8.0 ALBUMIN 1751-7 3.4 gm/dL L=3.4 H=5.0 AGE 41 years eGFR (non-Afr.Amer.) 81623-3 102 mL/min eGFR (Afr-[place]) 40970-0 >120 mL/min GLUCOSE FINGER/HEEL CAPILLAR Y - [...] Test Units Test Ref Rang e MAGNESIUM 25546-7 1.9 mg/dL L=1.8 H=2.4 SALICYLATE SERUM* - [...] % 56.4 % L=10.0 H=50.0 MONO % 79822-1 9.1 % L=2.0 H=12.0 EOS % 1.9 % L=0.0 H=8.0 BASO % 0.4 % L=0.0 H=3.0 IG % 2514-8 0.7 % L=0.0 H=1.1 NRBC % 09706-2 0.0 % L=0.0 H=0.0 NEUT abs count 751-8 2.2 th/cmm L=1.6 H=8. 4 LYMPH abs count 731-0 3.9 th/cmm L=1.5 H=4 .0 MONO abs count 742-7 0.6 th/cmm L=0.2 H=1. 0 EOS abs count 711-2 0.1 th/cmm L=0.0 H=0.5 BASO abs count 704-7 0.0 th/cmm L=0.0 H=0. 2 IG abs count 38621-9 0.1 th/cmm L=0.0 H=0.1 NRBC abs count 96055-4 0.0 mil/cmm L=0.0 H=0. 0 RBC 789-8 [...] Test Units Test Ref Rang e CANNABINOIDS 13353-1 NEGATIVE N/A Cutoff = 50 ng/mL PHENCYCLIDINE 76737-9 NEGATIVE N/A Cutoff = 25 ng/mL COCAINE 34066-1 NEGATIVE N/A Cutoff = 150 n g/mL METHAMPHETAMINES 52399-0 NEGATIVE N/A Cutoff = 500 ng/mL OPIATES 32874-5 NEGATIVE N/A Cutoff = 100 n g/mL AMPHETAMINES 03183-0 NEGATIVE N/A Cutoff = 500 ng/mL BENZODIAZEPINES 27555-6 NEGATIVE N/A Cutoff = 150 ng/mL TRICYCLIC ANTIDEP 3533-7 NEGATIVE N/A Cutoff = 300 ng/mL METHADONE 96119-6 NEGATIVE N/A Cutoff = 200 n g/mL BARBITURATES 63658-1 NEGATIVE N/A Cutoff = 200 ng/mL OXYCODONE 31223-1 NEGATIVE N/A Cutoff = 100 n g/mL PROPOXYPHENE 05514-5 NEGATIVE N/A Cutoff = 300 ng/mL BUPRENORPHINE 3414-0 NEGATIVE N/A Cutoff = 10 mg/mL URINALYSIS WITH REFLEX CULT IF POSITIVE* - Collect Date/Time: 08/04/2022 11:09 Test Name Code Test Result Test Units Test Ref Rang e COLLECTION MODE: 28199-1 CLEAN CATCH N/A Color 5778-6 YELLOW N/A yellow Appearance 5767-9 CLEAR N/A clear Glucose urine 49752-3 >=1000 N/A negative mg /dl Bilirubin 5770-3 NEGATIVE N/A negative Ketones 2514-8 15 N/A negative mg/dl Spec gravity 5811-5 1.010 N/A 1.003 - 1.03 0 pH urine 2756-5 6.5 N/A 5.0 - 7.0 Protein 22171-0 NEGATIVE N/A negative mg/dl Urobilinogen 72590-4 0.2 N/A <or= 1 EU/dl Nitrite. 5802-4 [...] unspecified, not i ntractable, without status epilepticus [id number] 08/04/2022 Social History Unknown or Not Available. Patient Decision Aids Unknown or Not Available. Discharge Instructions You were admitted to [facility] on 08/04/2022 10:14 with a principal diagnosis of Epilepsy, unspecified, not intractable, without status epilepticus You had the following tests done:DRUG SCN 13 PANEL (MEDTOX)*URINALYSIS WITH REFLEX CULT IF POSITIVE*GLUCOSE FINGER/HEEL CAPILLARYGLUCOSE FINGER/HEEL CAPILLARYACETAMINOPHEN*ALCOHOL (ETHANOL)*CBC W/ DIFFERENTIAL*COMPREHENSIVE METABOLIC PANEL (CMP)MAGNESIUM SERUM*ORDER VENOUS BLOOD GAS* TEST QUAL (SERUM)SALICYLATE SERUM*TROPONIN HIGH SENSITIVITY*VALPROIC ACID (DEPAKENE)* You were discharged from [facility] on 08/04/2022 16:26 Should you have [...]
[2023-07-19 16:44] LABS: Abs Immature Grans 0.03 10^3/uL (0.0-0.06); Absolute Basophil Count 0.04 10^3/uL (0.0-0.2); Absolute Lymphocyte Count 3.28 10^3/uL (1.2-3.4); Absolute Monocyte Count 0.67 10^3/uL (0.1-0.8); Absolute Neutrophil Count 3.96 10^3/uL (1.2-6.7); Basophils % 0.5; Eosinophils % 1.2; HGB 14.8 g/dL (11.2-15.7); Immature Grans % 0.4; Lymphocytes % 40.6; MCH 34.2 pg (27.0-33.0); MCHC 35.2 % (32.0-36.0); MCV 97 fL (80-95); MPV 9.3 fL (8.0-11.0); Monocytes % 8.3; Platelet Count 370 10^3/uL (130-400); RBC 4.33 10^6/uL (3.93-5.22); RDW 11.7 % (11.7-14.6); WBC 8.08 10^3/uL (4.4-10.8)
[2023-07-19 16:52] LABS: Ammonia 13 umol/L (11-32)
[2023-07-19 16:57] LABS: ALT 15 U/L (14-59); AST 13 U/L (15-37); Albumin 3.8 g/dL (3.4-5.0); Alkaline Phosphatase 79 U/L (46-116); Anion Gap 10.9 mmol/L (3-11); BUN 13 mg/dL (7-18); Bilirubin, Total 0.6 mg/dL (0.2-1.0); CO2 26.1 mmol/L (21.0-32.0); CREATININE 0.7 mg/dL (0.55-1.02); Calcium 9.6 mg/dL (8.5-10.1); Chloride 100 mmol/L (98-107); Estimated GFR 110.67 (mL/min/1.73m2); Glucose 96 mg/dL (74-106); Lipase 20 U/L (16-77); Magnesium 2.4 mg/dL (1.8-2.4); Potassium 3.4 mmol/L (3.5-5.1); Sodium 137 mmol/L (136-145); Total Protein 7.9 g/dL (6.4-8.2); Troponin I < 50 ng/L (<or=60)
[2023-07-19 16:58] LABS: ETHANOL BLOOD < 3.0 mg/dL (<10)
[2023-07-19 17:09] LABS: HCG Qual (Serum) Negative
[2023-07-19 17:13] LABS: Salicylate < 2.8 mg/dL (<2.8); VALPROIC ACID 84.9 ug/mL
[2023-07-19 17:14] LABS: Acetaminophen < 2 ug/mL (10-30)
[2023-07-19 17:16] LABS: NT-proBNP 34 pg/mL (<300)
[2023-07-19 17:22] LABS: TSH (W/Ref FT4) 2.42 uIU/mL (0.36-3.74)
== END 2023-07-19 18:18 | disposition home or self-care (01) ==
PROVIDERS: Emergency Provider Student in an Organized Health Care Education/Training Program; PCP Family Medicine
DX: R55 Syncope and collapse (principal); R51.9 Headache, unspecified; E11.9 Type 2 diabetes mellitus without complications; E03.9 Hypothyroidism, unspecified; F17.210 Nicotine dependence, cigarettes, uncomplicated; Z79.84 Long term (current) use of oral hypoglycemic drugs
CPT/HCPCS: 80053; 82962; 83690; 93005; 96360; 99284; 70450; 71045; 80164; 80320; 80329; 82140; 83735; 83880; 84443; 84484; 84703; 85025; 93010

== ENCOUNTER 2023-07-19 18:18 | Outpatient (CLI) | payer MEDICAID, SELFPAY ==
[2023-07-19 16:47] LABS: ESR 15 mm/hr (0-20)
[2023-07-19 17:27] LABS: C-Reactive Protein 0.24 mg/dL (0.0-0.3)
--- OUTSIDE RECORDS SUMMARY | 2023-07-19 18:20 | XMS_ITS | CCD ---
Author Name Unknown Address [address] [place] [address] [phone] Organization Unknown Address [address] [place] [address] [phone] Care Team Providers Care Flour Distributor Name Role Phone JENNY RUBIN Attending Physician [phone] JENNY RUBIN Er Physician 1 [phone] AMARA Lopez Registered Nurse [phone] Vital Signs Vital Sign Value Unit Date/Time [...] Units Test Ref Rang e ALCOHOL (ETHANOL) 86997-7 <3 mg/dL COMPREHENSIVE METABOLIC PANE L (CMP) [...] 2028-9 23 mmol/L L=22 H=34 ANION GAP 95874-1 12.6 mmol/L CALCIUM SERUM 56608-4 9.3 mg/dL L=8.2 H=10. 2 BILIRUBIN TOTAL 1975-2 0.2 mg/dL L=0.0 H=1 .3 ALK. PHOS. 6768-6 226 U/L L=46 H=116 SGOT (AST) 1920-8 27 U/L L=15 H=37 SGPT (ALT) 1742-6 53 U/L L=12 H=78 TOTAL PROTEIN 2885-2 7.9 gm/dL L=6.0 H=8.0 ALBUMIN 1751-7 3.4 gm/dL L=3.4 H=5.0 AGE 41 years eGFR (non-Afr.Amer.) 67674-9 102 mL/min eGFR (Afr-[place]izen [place]) 96169-9 >120 mL/min GLUCOSE FINGER/HEEL CAPILLAR Y - [...] Test Units Test Ref Rang e MAGNESIUM 04661-4 1.9 mg/dL L=1.8 H=2.4 SALICYLATE SERUM* - [...] % 56.4 % L=10.0 H=50.0 MONO % 80399-3 9.1 % L=2.0 H=12.0 EOS % 1.9 % L=0.0 H=8.0 BASO % 0.4 % L=0.0 H=3.0 IG % 2514-8 0.7 % L=0.0 H=1.1 NRBC % 56243-2 0.0 % L=0.0 H=0.0 NEUT abs count 751-8 2.2 th/cmm L=1.6 H=8. 4 LYMPH abs count 731-0 3.9 th/cmm L=1.5 H=4 .0 MONO abs count 742-7 0.6 th/cmm L=0.2 H=1. 0 EOS abs count 711-2 0.1 th/cmm L=0.0 H=0.5 BASO abs count 704-7 0.0 th/cmm L=0.0 H=0. 2 IG abs count 26221-1 0.1 th/cmm L=0.0 H=0.1 NRBC abs count 02166-3 0.0 mil/cmm L=0.0 H=0. 0 RBC 789-8 [...] Test Units Test Ref Rang e CANNABINOIDS 16321-5 NEGATIVE N/A Cutoff = 50 ng/mL PHENCYCLIDINE 91274-8 NEGATIVE N/A Cutoff = 25 ng/mL COCAINE 73785-9 NEGATIVE N/A Cutoff = 150 n g/mL METHAMPHETAMINES 15972-5 NEGATIVE N/A Cutoff = 500 ng/mL OPIATES 84581-3 NEGATIVE N/A Cutoff = 100 n g/mL AMPHETAMINES 06135-4 NEGATIVE N/A Cutoff = 500 ng/mL BENZODIAZEPINES 15463-2 NEGATIVE N/A Cutoff = 150 ng/mL TRICYCLIC ANTIDEP 3533-7 NEGATIVE N/A Cutoff = 300 ng/mL METHADONE 05355-0 NEGATIVE N/A Cutoff = 200 n g/mL BARBITURATES 46397-2 NEGATIVE N/A Cutoff = 200 ng/mL OXYCODONE 96559-1 NEGATIVE N/A Cutoff = 100 n g/mL PROPOXYPHENE 44205-6 NEGATIVE N/A Cutoff = 300 ng/mL BUPRENORPHINE 3414-0 NEGATIVE N/A Cutoff = 10 mg/mL URINALYSIS WITH REFLEX CULT IF POSITIVE* - Collect Date/Time: 08/04/2022 11:09 Test Name Code Test Result Test Units Test Ref Rang e COLLECTION MODE: 83212-5 CLEAN CATCH N/A Color 5778-6 YELLOW N/A yellow Appearance 5767-9 CLEAR N/A clear Glucose urine 15991-4 >=1000 N/A negative mg /dl Bilirubin 5770-3 NEGATIVE N/A negative Ketones 2514-8 15 N/A negative mg/dl Spec gravity 5811-5 1.010 N/A 1.003 - 1.03 0 pH urine 2756-5 6.5 N/A 5.0 - 7.0 Protein 15569-5 NEGATIVE N/A negative mg/dl Urobilinogen 16007-9 0.2 N/A <or= 1 EU/dl Nitrite. 5802-4 [...] unspecified, not i ntractable, without status epilepticus [id number] 08/04/2022 Social History Unknown or Not Available. Patient Decision Aids Unknown or Not Available. Discharge Instructions You were admitted to [facility] on 08/04/2022 10:14 with a principal diagnosis of Epilepsy, unspecified, not intractable, without status epilepticus You had the following tests done:DRUG SCN 13 PANEL (MEDTOX)*URINALYSIS WITH REFLEX CULT IF POSITIVE*GLUCOSE FINGER/HEEL CAPILLARYGLUCOSE FINGER/HEEL CAPILLARYACETAMINOPHEN*ALCOHOL (ETHANOL)*CBC W/ DIFFERENTIAL*COMPREHENSIVE METABOLIC PANEL (CMP)MAGNESIUM SERUM*ORDER VENOUS BLOOD GAS* TEST QUAL (SERUM)SALICYLATE SERUM*TROPONIN HIGH SENSITIVITY*VALPROIC ACID (DEPAKENE)* You were discharged from [facility] on 08/04/2022 16:26 Should you [...]
[2023-07-19 18:41] LABS: Vitamin B12 707 pg/mL (193-986)
[2023-07-19 18:52] LABS: Iron 57 ug/dL (50-170); Total Iron Binding Capacity 379 ug/dL (250-450); Transferrin Sat 15 % (15-50)
[2023-07-21 09:54] LABS: Lyme Ab w Rflx to Lyme Confirm Negative (Negative)
[2023-07-22 19:31] LABS: Anaplasma phagocytophilum Negative (Negative); B. miyamotoi PCR Negative (Negative); Babesia divergens/MO-1 Negative (Negative); Babesia duncani Negative (Negative); Babesia microti Negative (Negative); Ehrlichia chaffeensis Negative (Negative); Ehrlichia ewingii/canis Negative (Negative); Ehrlichia muris eauclairensis Negative (Negative)
== END 2023-07-19 18:19 | disposition home or self-care (01) ==
LOC: LBO 18:18
PROVIDERS: PCP Family Medicine; Visit Provider Family Medicine
DX: R53.83 Other fatigue (principal)
CPT/HCPCS: 36415; 80053; 85652; 87798; 80164; 82140; 82607; 83519; 83540; 83550; 84443; 85025; 86140; 86618

== ENCOUNTER 2023-09-21 13:50 | Emergency (ER) | payer MEDICAID, SELFPAY ==
[2023-09-21] VITALS (7 sets, daily range): BP systolic 82–107; BP diastolic 56–79; PULSE 97–107; RESP 12–97; O2SAT 98
--- NOTE | 2023-09-21 13:45 | RT.EKG_ITS ---
APPROVED REPORT Exam: Resting ECG Reason for Exam: trazodone overdose Patient Location: E HR:108 bpm ECG Measurements Heart Rate 108 AXIS CO 149 P 52 QRSd 75 QRS 83 QT 363 T 7 QTc 487 Conclusion Sinus tachycardia normal axis normal intervals
--- NOTE | 2023-09-21 14:35 | ED.GENADUL_ITS ---
HPI General Date/Time Provider Initiated Documentation: 09/21/23 14:12 . Limitations to Documentation: altered mental status . Information obtained by: patient . HPI Narrative: 43-year-old female with past medical history of POTS, diabetes, schizophrenia presents for evaluation after intentional overdose. Patient reports that yesterday morning she took 12 tabs of trazodone. She states that it was not her medication. She does not know the milligram strength. She does not know what time she took it, but states that she took it in the morning. She reports that it made heR feel more dizzy, but denies any loss of consciousness, vomiting or diarrhea. She states that she took this medication intentionally. States that she took it because she was frustrated. She is unable to clearly say whether or not she wanted to kill herself. She states that sometimes she overdoses just because. She came to the emergency department today, because she told her friend who called her mental health worker and they called an ambulance to bring her to the hospital. Related Data Home Medications Medication Instructions Recorded Confirmed gabapentin 300 mg capsule 300 mg PO QHS 10/25/18 09/21/23 aripiprazole lauroxil 882 mg/3.2 882 mg IM Q4W 07/12/21 09/21/23 mL suspension, ext.rel. IM syringe (Aristada) topiramate 50 mg tablet (Topamax) 50 mg PO BID 07/12/21 09/21/23 divalproex 500 mg tablet,delayed 1,000 mg PO BID 09/17/21 09/21/23 release metformin 1,000 mg tablet 1,000 mg PO BID #180 tabs 02/15/23 09/21/23 fludrocortisone 0.1 mg tablet 0.1 mg PO DAILY #90 tabs 05/27/23 09/21/23 semaglutide 2 mg/dose (8 mg/3 mL) 2 mg (0.75 mL) subcut QWEEK #3 mL 06/07/23 09/21/23 subcutaneous pen injector levothyroxine 75 mcg tablet See Rx Instructions .Route 06/28/23 09/21/23 .COMPLEX #90 tabs benztropine 2 mg tablet 2 mg PO DAILY 07/12/23 09/21/23 metoprolol tartrate 25 mg tablet 25 mg PO BID #60 tabs 08/30/23 09/21/23 semaglutide 1 mg/dose (4 mg/3 mL) 2 mg (1.5 mL) subcut QWEEK #3 mL 09/12/23 09/21/23 subcutaneous pen injector Previous Rx's Medication Instructions Recorded metformin 1,000 mg tablet 1,000 mg PO BID #180 tabs 02/15/23 fludrocortisone 0.1 mg tablet 0.1 mg PO DAILY #90 tabs 05/27/23 semaglutide 2 mg/dose (8 mg/3 mL) 2 mg (0.75 mL) subcut QWEEK #3 mL 06/07/23 subcutaneous pen injector levothyroxine 75 mcg tablet See Rx Instructions .Route 06/28/23 .COMPLEX #90 tabs metoprolol tartrate 25 mg tablet 25 mg PO BID #60 tabs 08/30/23 semaglutide 1 mg/dose (4 mg/3 mL) 2 mg (1.5 mL) subcut QWEEK #3 mL 09/12/23 subcutaneous pen injector Allergies Allergy/AdvReac Type Severity Reaction Status Date / Time codeine Allergy Mild Unverified 08/30/23 13:50 General Stated Complaint: OD/Poison CECILIA: 2 PFSH All Active Problems (Updated 09/21/23 @ 16:45 by Ruth Calderon MD) Acute hypokalemia (Acute) Purposeful non-suicidal drug ingestion (Acute) POTS (postural orthostatic tachycardia syndrome) (Acute) Plantar warts (Acute) Fatigue (Acute) Pelvic pain (Acute) Orthostatic hypotension (Acute) Chronic diarrhea (Acute) Nonalcoholic steatohepatitis (Acute) Hypothyroid (Chronic) Hirsutism (Acute) Dysfunctional uterine bleeding (Acute) Oligomenorrhea (Acute) Schizophrenia (Chronic) Diabetes mellitus type 2 in obese (Acute) Medical History Uterine mass Non compliance w medication regimen Yeast dermatitis RLS (restless legs syndrome) H/O suicide attempt Schizoaffective disorder Deviated nasal septum Trigeminal neuralgia of left side of face (01/03/18) Type 2 diabetes mellitus History of hypothyroidism Drug overdose, intentional Surgical History S/p breast implant removal Sep 2019 S/P breast implant, left H/O pilonidal cyst S/P foot surgery Ligation of fallopian tube Family History Mother Diabetes Father Heart disease Social History Smoking/Tobacco Use Status: Current-Occasional Tobacco Type: cigarettes and cig ars Quit status: considering quitting Smoking risk assessment performed?: Yes Alcohol Intake: never Drug use: Current Sobriety Substance use type: marijuana Adopted: No Caregiver/Support person: No Foster care: No Housing: apartment Number of Children: 2 number of grandchildren: 0 Education Level: high school Do you need help understanding health information?: Never current occupation: Disabled Pets and animals: Yes (1) Pets and animals: cat(s) Do you think of yourself as: straight/heterosexual Current gender identity: female What is your relationship status?: How often do you talk on the phone with friends or family?: decline to answer How often do you get together with friends or relatives?: decline to answer Do you belong to any clubs or organized social groups?: decline to answer Panel score (0-1 are the most socially isolated patients): 0 What type of physical activity do you participate in: walking Frequency: 1-2 times per week Lauren/Mormonism: Restorationism Special lauren needs: No Seatbelt use: always Drive intox or ride w/intox cryogenic transport driver: No Do you feel safe at home: Yes Do you feel safe in your relationship?: Yes Female Reproductive History Menstrual Age of Menarche: 16 Duration of menses: other control method: permanent sterilization History History 2 Para 2 Hx # Term Pregnancies Multiple births Hx # Pregnancies Ectopic pregnancies AB induced Hx Number of Living Children AB spontaneous Past Pregnancies Del. Date GA/Weeks # Preg Succ Route Wgt Sex Labor Lgth Anesth esia Location Prov Complic 08/30/01 40 No Yes vaginal Female 03/25/02 40 No Yes vaginal Male Delivery Date: 08/30/01 Last [facility]: [facility]: 03[facility]02 Last Updated by: [facility]imee [facility] Exam Narrative Exam Narrative: Review of Systems: All systems reviewed & are unremarkable except as noted in HPI and below: CONSTITUTIONAL: Oriented x 3, sleepy but alert. Slow to answer questions Well-developed, no acute distress HEENT: NCAT EYES: PERRL, no conjunctival injection EARS: no external abnormality MOUTH Moist MM NECK: Symmetric, trachea midline, No thyromegaly THROAT oropharynx clear CVS: Tachycardia, No murmurs or gallops. Peripheral pulses 2+ and equal in all extremities Brisk capillary refill in all extremities. No peripheral edema RESP: Unlabored respiratory effort, Clear to auscultation bilaterally No wheezes rales or rhonchi GI: Soft, Nontender, Nondistended, No organomegaly MSK: Extremities with full range of motion, no deformity or TTP SKIN: Warm, Dry. No rashes or lesions. NEURO: No focal neurologic deficits. 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 grossly intact Sensation grossly intact Normal strength throughout PSYCH: Poor judgment, linear thought, flat affect Course Vital Signs Vital signs: Vital Signs Pulse 107 H 09/21/23 13:50 Respiratory Rate 16 09/21/23 13:50 Blood Pressure 107/79 09/21/23 13:50 Pulse Oximetry 98 09/21/23 13:50 Pulse 107 H 09/21/23 13:50 Respiratory Rate 16 09/21/23 13:50 Blood Pressure 107/79 09/21/23 13:50 Blood Pressure Position Sitting 09/21/23 13:50 Pulse Oximetry 98 09/21/23 13:50 Oxygen Delivery Method Room Air 09/21/23 13:50 Oxygen Flow Rate 0 09/21/23 13:50 Lab/Test Results Lab/Test Results: POC- Test(urine) Negative Medical Decision Making Emergent evaluation of intentional ingestion. This occurred over 24 hours ago per patient report. Is also unclear how much medication she actually took. Right now she has soft blood pressure, and some slight tachycardia which could be related to her POTS syndrome and not necessarily as a side effect of a trazodone ingestion. If she did take trazodone over 24 hours ago, I would have a low suspicion for persistent effect at this time. although she is denying SI, Given her ingestion,, a CPSO has been ordered, will evaluate for other ingestions and causes of her slightly abnormal mental status. Although this could be her baseline, I am not familiar with this patient. 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 Will medically clear and discussed with mental health services to evaluate for plan. At this time the patient is not interested in voluntary inpatient psychiatric placement. I did discuss the patient's ingestion with poison control center. They concur that given the timeline, any symptoms of present are unlikely to be related to trazodone. 1530: Lab work reviewed. Mild hypokalemia, will give an oral dose of replacement. Patient otherwise medically cleared for psychiatric evaluation. 1645: [facility] They feel that the patient is stable for discharge home. I concur with this. Patient has been slightly hypotensive, consistent with her POTS syndrome. I do feel at this time she is stable for discharge home. She is able to reiterate a plan and has close follow-up. Return precautions advised. Medical Records Medical records reviewed: Yes I reviewed the patient's medical records. Lab Data Lab results reviewed: Yes I reviewed the patient's lab results. ECG Data Attestation: I personally reviewed and interpreted this ECG (s) as follows: Prior ECG tracings: available for review Interpretation: sinus tach normal axis normal intervals Quality:SDOH Health Related Social Needs: No Data to Display Discharge Plan Disposition Patient Disposition: Home Discharge Details Clinical Impression: Purposeful non-suicidal drug ingestion, POTS (postural orthostatic tachycardia syndrome), Acute hypokalemia Primary Care Provider: Antoni Ohara ED Provider: Ruth Calderon Home Meds and New Rx's Prescriptions: No Action metoprolol tartrate 25 mg tablet 25 mg PO BID Qty: 60 0RF Hold Instructions: per pcp gabapentin 300 mg capsule 300 mg PO QHS metformin 1,000 mg tablet 1,000 mg PO BID Qty: 180 3RF benztropine 2 mg tablet 2 mg PO DAILY fludrocortisone 0.1 mg tablet 0.1 mg PO DAILY Qty: 90 3RF semaglutide 2 mg/dose (8 mg/3 mL) pen injector 2 mg subcut QWEEK Qty: 3 3RF Hold Instructions: Formulary/Insurance Patient Comments: pt not familiar with this medication levothyroxine 75 mcg tablet See Rx Instructions .ROUTE .COMPLEX Qty: 90 3RF Dose Instruction: TAKE 1 TABLET BY MOUTH DAILY Rx Instructions: TAKE 1 TABLET BY MOUTH DAILY semaglutide 1 mg/dose (4 mg/3 mL) pen injector 2 mg subcut QWEEK Qty: 3 3RF divalproex 500 mg Tablet,Delayed Release (Dr/Ec) 1,000 mg PO BID topiramate [Topamax] 50 mg tablet 50 mg PO BID Patient Comments: Take 1 tablet by mouth twice a day Aristada 882 mg/3.2 mL suspension,extended rel syring 882 mg IM Q4W Hold Instructions: Pt Stopped/Never Started Patient Comments: not taking Rx Instructions: every 4 weeks Discharge Instructions Additional Instructions: please take your daily medications as prescribed do not take other people's medications follow your safety plan
[2023-09-21 14:52] LABS: *AMPHETAMINES SCREEN URINE Negative (Negative); *BARBITURATES SCREEN URINE Negative (Negative); *BENZODIAZEPINES SCREEN URINE Negative (Negative); Cannabinoids THC Negative (Negative); Cocaine Screen,Urine Negative (Negative); METHADONE URINE SCREEN Negative (Negative); OPIATES URINE SCREEN Negative (Negative)
[2023-09-21 14:52] LABS: BE (Venous) -1 mmol/L (-2-3); HCO3 (Venous) 24 mmol/L (23-28); O2 Sat (Venous) 86 %; TCO2 (Venous) 22 mmol/L (24-29); pCO2 (Venous) 42 mmHg (41-51); pH (Venous) 7.37 (7.31-7.41); pO2 (Venous) 50 mmHg
[2023-09-21 14:54] LABS: Tricyclic Antidepressants Negative (Negative)
[2023-09-21 14:54] LABS: Abs Immature Grans 0.03 10^3/uL (0.0-0.06); Absolute Basophil Count 0.03 10^3/uL (0.0-0.2); Absolute Eosinophil Count 0.06 10^3/uL (0.0-0.7); Absolute Lymphocyte Count 2.41 10^3/uL (1.2-3.4); Absolute Neutrophil Count 4.55 10^3/uL (1.2-6.7); Basophils % 0.4; Eosinophils % 0.8; HCT 37.3 % (36.0-46.0); HGB 13.1 g/dL (11.2-15.7); Immature Grans % 0.4; Lymphocytes % 31.8; MCH 33.8 pg (27.0-33.0); MCHC 35.1 % (32.0-36.0); MCV 96 fL (80-95); MPV 9.4 fL (8.0-11.0); Monocytes % 6.6; Platelet Count 245 10^3/uL (130-400); RBC 3.88 10^6/uL (3.93-5.22); RDW 11.9 % (11.7-14.6); RDW-SD 41.6 fL; WBC 7.58 10^3/uL (4.4-10.8)
[2023-09-21 15:12] LABS: Salicylate < 2.8 mg/dL (<2.8)
[2023-09-21 15:13] LABS: Acetaminophen < 2 ug/mL (10-30)
[2023-09-21 15:25] LABS: ALT 14 U/L (14-59); AST 12 U/L (15-37); Alkaline Phosphatase 73 U/L (46-116); Anion Gap 9.4 mmol/L (3-11); BUN 13 mg/dL (7-18); Bilirubin, Total 0.4 mg/dL (0.2-1.0); CO2 25.6 mmol/L (21.0-32.0); CREATININE 0.6 mg/dL (0.55-1.02); Calcium 9.2 mg/dL (8.5-10.1); Chloride 105 mmol/L (98-107); Estimated GFR 114.15 (mL/min/1.73m2); Glucose 154 mg/dL (74-106); Magnesium 1.9 mg/dL (1.8-2.4); Potassium 3.2 mmol/L (3.5-5.1); Sodium 140 mmol/L (136-145); TSH 0.54 uIU/mL (0.36-3.74); Total Protein 6.5 g/dL (6.4-8.2); Troponin I < 50 ng/L (< or =60)
[2023-09-21 15:26] LABS: ETHANOL BLOOD < 3.0 mg/dL (<10)
[2023-09-21] MEDS: POTASSIUM CHLORIDE 20 MEQ, POTASSIUM CHLORIDE 10 MEQ 30 MEQ PO (16:37)
== END 2023-09-21 16:51 | disposition home or self-care (01) ==
PROVIDERS: Emergency Provider Emergency Medicine; PCP Family Medicine
DX: T43.212A Poisoning by selective serotonin and norepinephrine reuptake inhibitors, intentional self-harm, initial encounter (principal); E11.9 Type 2 diabetes mellitus without complications; F17.210 Nicotine dependence, cigarettes, uncomplicated; F17.290 Nicotine dependence, other tobacco product, uncomplicated; Z79.84 Long term (current) use of oral hypoglycemic drugs; Y92.019 Unspecified place in single-family (private) house as the place of occurrence of the external cause
CPT/HCPCS: 36415; 80053; 80307; 81025; 82805; 93005; 99284; 80320; 80329; 83735; 84443; 84484; 85025; 93010

== ENCOUNTER 2023-10-05 02:29 | Emergency (ER) | payer MEDICAID, SELFPAY ==
[2023-10-05 02:19] VITALS: BP 102/68; PULSE 112; RESP 18; TEMP 36.6; O2SAT 98
[2023-10-05 02:22] VITALS: RESP 18
--- NOTE | 2023-10-05 02:38 | ED.GENADUL_ITS ---
HPI General Mode of arrival: EMS . Date/Time Provider Initiated Documentation: 10/05/23 02:38 . Limitations to Documentation: no limitations . Information obtained by: patient and EMS . HPI Narrative: 43yo F with hx of POTS, hypothyroid, T2DM, schizophrenia, presenting for nausea x 8 hours. No vomiting but feels like she needs to throw up. Last bowel movement today or yesterday, she is not sure, nonbloody no melena. Had abdominal pain three days ago but none since then. Started a new depression medication yesterday but cannot recall the name of it. Has felt dizzy and tired , this has been going on for years, no acute changes. Concerned today primarily about nausea. She is otherwise in her usual state of health with no fevers, chills, rash, dysuria, hematuria, chest pain, shortenss of breath, or other concerns. Related Data Home Medications Medication Instructions Recorded Confirmed gabapentin 300 mg capsule 300 mg PO QHS 10/25/18 10/05/23 aripiprazole lauroxil 882 mg/3.2 882 mg IM Q4W 07/12/21 10/05/23 mL suspension, ext.rel. IM syringe (Aristada) topiramate 50 mg tablet (Topamax) 50 mg PO BID 07/12/21 10/05/23 divalproex 500 mg tablet,delayed 1,000 mg PO BID 09/17/21 10/05/23 release metformin 1,000 mg tablet 1,000 mg PO BID #180 tabs 02/15/23 10/05/23 fludrocortisone 0.1 mg tablet 0.1 mg PO DAILY #90 tabs 05/27/23 10/05/23 levothyroxine 75 mcg tablet See Rx Instructions .Route 06/28/23 10/05/23 .COMPLEX #90 tabs metoprolol tartrate 25 mg tablet 25 mg PO BID #60 tabs 08/30/23 10/05/23 Previous Rx's Medication Instructions Recorded metformin 1,000 mg tablet 1,000 mg PO BID #180 tabs 02/15/23 fludrocortisone 0.1 mg tablet 0.1 mg PO DAILY #90 tabs 05/27/23 levothyroxine 75 mcg tablet See Rx Instructions .Route 06/28/23 .COMPLEX #90 tabs metoprolol tartrate 25 mg tablet 25 mg PO BID #60 tabs 08/30/23 Allergies Allergy/AdvReac Type Severity Reaction Status Date / Time codeine Allergy Mild Unverified 10/05/23 02:43 General Stated Complaint: GenMedical CECILIA: 3 Review of Systems Narrative: see HPI Exam Narrative Exam Narrative: General: Alert, well nourished, in no acute distress. Head: Normocephalic, atraumatic Neck: Trachea midline, ?Neck supple. ENT: ?MMM.? No oropharygeal lesions or exudate. Cardiac: ?RRR, no murmurs appreciated Resp: No respiratory distress. CTAB. Abd: ?Soft, non-distended, nontender : ?No suprapubic tenderness. No CVA tenderness. Extremities: ?No deformities.? No peripheral edema. Neurologic: GCS 15. ? Moves all extremities freely against gravity Course Vital Signs Vital signs: Vital Signs Temperature 36.6 C 10/05/23 02:19 Pulse 112 H 10/05/23 02:19 Respiratory Rate 18 10/05/23 02:19 Blood Pressure 102/68 10/05/23 02:19 Pulse Oximetry 98 10/05/23 02:19 Temperature 36.6 C 10/05/23 02:19 Pulse 112 H 10/05/23 02:19 Respiratory Rate 18 10/05/23 02:22 Respiratory Effort Normal 10/05/23 02:22 Respiratory Depth Normal 10/05/23 02:22 Respiratory Pattern Normal 10/05/23 02:22 Blood Pressure 102/68 10/05/23 02:19 Pulse Oximetry 98 10/05/23 02:19 Oxygen Delivery Method Room Air 10/05/23 02:19 Oxygen Flow Rate 0 10/05/23 02:19 Pain Level 0 10/05/23 02:19 Medical Decision Making 43yo F with hx of POTS, hypothyroid, T2DM, schizophrenia, presenting for nausea x 8 hours. No vomiting, no change in bowel movements. No other new symptoms. Tachycardiac on arrival after ambulating into department, vital signs otherwise reassuring. Benign physical exam with no abdominal tenderness; low suspicion for acute/surgical intradominal process such as obstruction, appendicitis, gallbladder pathology, etc; would not get CT or US imaging. Well hydrated on exam. Low suspicion for sepsis however given tachycardia will evaluate further with bloodwork. Given PO zofran. Labs reviewed as below, CBC reassuring with no anemia, leukocytosis, or leukopenia. CMP with normal electrolytes, no acidosis, no significant abnormalities. Normal lactic acid. On reassessment HR improved to 90 without intervention, pt reports nausea improved. Discharged with short course of zofran and advised to followup with PCP. Discharged home; discharge instructions and return precautions were reviewed with patient who verbalized understanding. All questions were answered and she is in full agreement with the plan. Lab Data Lab results reviewed: Yes I reviewed the patient's lab results. Labs: Laboratory Tests Range/Units 10/05/23 02:30 WBC (4.4-10.8) 10^3/uL 8.78 RBC (3.93-5.22) 10^6/uL 4.02 Hgb (11.2-15.7) g/dL 13.3 Hct (36.0-46.0) % 38.6 MCV (80-95) fL 96 H MCH (27.0-33.0) pg 33.1 H MCHC (32.0-36.0) % 34.5 RDW (11.7-14.6) % 12.1 Plt Count (130-400) 10^3/uL 294 MPV (8.0-11.0) fL 9.5 Immature Gran % 0.2 Neutrophils % 46.5 Lymphocytes % 46.0 Monocytes % 6.2 Eosinophils % 0.8 Basophils % 0.3 Nucleated RBC % (0.0-0.3) % 0.0 Absolute Neutrophils (1.2-6.7) 10^3/uL 4.08 Absolute Lymphocytes (1.2-3.4) 10^3/uL 4.04 H Absolute Monocytes (0.1-0.8) 10^3/uL 0.54 Absolute Eosinophils (0.0-0.7) 10^3/uL 0.07 Absolute Basophils (0.0-0.2) 10^3/uL 0.03 VBG Lactate (0.6-1.4) mmol/L 1.3 Sodium (136-145) mmol/L 138 Potassium (3.5-5.1) mmol/L 3.7 Chloride (98-107) mmol/L 105 Carbon Dioxide (21.0-32.0) mmol/L 22.3 Anion Gap (3-11) mmol/L 10.7 BUN (7-18) mg/dL 11 Creatinine (0.55-1.02) mg/dL 0.5 L Est GFR (CKD-EPI 2020) (mL/min/1.73m2) 119.27 Glucose (74-106) mg/dL 102 Calcium (8.5-10.1) mg/dL 9.1 Total Bilirubin (0.2-1.0) mg/dL 0.5 AST (15-37) U/L 10 L ALT (14-59) U/L 13 L Alkaline Phosphatase (46-116) U/L 76 Total Protein (6.4-8.2) g/dL 7.1 Albumin (3.4-5.0) g/dL 3.3 L Quality:SDOH Health Related Social Needs: No Data to Display PFSH All Active Problems (Updated 10/05/23 @ 02:52 by Savana Aranda MD) Nausea (Acute) Acute hypokalemia (Acute) Purposeful non-suicidal drug ingestion (Acute) POTS (postural orthostatic tachycardia syndrome) (Acute) Plantar warts (Acute) Fatigue (Acute) Pelvic pain (Acute) Orthostatic hypotension (Acute) Chronic diarrhea (Acute) Nonalcoholic steatohepatitis (Acute) Hypothyroid (Chronic) Hirsutism (Acute) Dysfunctional uterine bleeding (Acute) Oligomenorrhea (Acute) Schizophrenia (Chronic) Diabetes mellitus type 2 in obese (Acute) Medical History Uterine mass Non compliance w medication regimen Yeast dermatitis RLS (restless legs syndrome) H/O suicide attempt Schizoaffective disorder Deviated nasal septum Trigeminal neuralgia of left side of face (01/03/18) Type 2 diabetes mellitus History of hypothyroidism Drug overdose, intentional Surgical History S/p breast implant removal Sep 2019 S/P breast implant, left H/O pilonidal cyst S/P foot surgery Ligation of fallopian tube Family History Mother Diabetes Father Heart disease Social History Smoking/Tobacco Use Status: Current every day Tobacco Type: e-cigarettes Quit status: considering quitting Smoking risk assessment performed?: Yes Alcohol Intake: never Drug use: Current Sobriety Substance use type: marijuana Adopted: No Caregiver/Support person: No Foster care: No Housing: apartment Number of Children: 2 number of grandchildren: 0 Education Level: high school Do you need help understanding health information?: Never current occupation: Disabled Pets and animals: Yes (1) Pets and animals: cat(s) Do you think of yourself as: straight/heterosexual Current gender identity: female What is your relationship status?: How often do you talk on the phone with friends or family?: decline to answer How often do you get together with friends or relatives?: decline to answer Do you belong to any clubs or organized social groups?: decline to answer Panel score (0-1 are the most socially isolated patients): 0 What type of physical activity do you participate in: walking Frequency: 1-2 times per week Lauren/Episcopalian: Tenriism Special lauren needs: No Seatbelt use: always Drive intox or ride w/intox industrial truck driver: No Do you feel safe at home: Yes Do you feel safe in your relationship?: Yes Female Reproductive History Menstrual Age of Menarche: 16 Duration of menses: other control method: permanent sterilization History History 2 Para 2 Hx # Term Pregnancies Multiple births Hx # Pregnancies Ectopic pregnancies AB induced Hx Number of Living Children AB spontaneous Past Pregnancies Del. Date GA/Weeks # Preg Succ Route Wgt Sex Labor Lgth Anesth esia Location [facility] 08/30/01 40 No Yes vaginal Female 03/25/02 40 No Yes vaginal Male Delivery Date: 08/30/01 [facility]: [facility]02 Last Updated by: [facility] Discharge Plan Disposition Patient Disposition: Home Condition: Good Discharge Details Clinical Impression: Nausea Primary Care Provider: Antoni Ohara ED Provider: Savana Aranda Home Meds and New Rx's Prescriptions: Continued metoprolol tartrate 25 mg tablet 25 mg PO BID Qty: 60 0RF Hold Instructions: per pcp gabapentin 300 mg capsule 300 mg PO QHS metformin 1,000 mg tablet 1,000 mg PO BID Qty: 180 3RF fludrocortisone 0.1 mg tablet 0.1 mg PO DAILY Qty: 90 3RF levothyroxine 75 mcg tablet See Rx Instructions .ROUTE .COMPLEX Qty: 90 3RF Dose Instruction: TAKE 1 TABLET BY MOUTH DAILY Rx Instructions: TAKE 1 TABLET BY MOUTH DAILY divalproex 500 mg Tablet,Delayed Release (Dr/Ec) 1,000 mg PO BID topiramate [Topamax] 50 mg tablet 50 mg PO BID Patient Comments: Take 1 tablet by mouth twice a day Aristada 882 mg/3.2 mL suspension,extended rel syring 882 mg IM Q4W Hold Instructions: Pt Stopped/Never Started Patient Comments: not taking Rx Instructions: every 4 weeks Discontinued semaglutide 2 mg/dose (8 mg/3 mL) pen injector 2 mg subcut QWEEK Qty: 3 3RF Hold Instructions: Formulary/Insurance Patient Comments: pt not familiar with this medication semaglutide 1 mg/dose (4 mg/3 mL) pen injector 2 mg subcut QWEEK Qty: 3 3RF Discharge Instructions Instructions: Acute Nausea and Vomiting (ED) Additional Instructions: You can take zofran at home for nausea up to every 8 hours as needed. Call your primary care doctor today to schedule an appointment within the next 3 days to followup on your visit here. Return to the emergency department for new or worsening symptoms. Referrals: Antoni Ohara DO [Primary Care Provider] -
[2023-10-05 02:44] LABS: Abs Immature Grans 0.02 10^3/uL (0.0-0.06); Absolute Basophil Count 0.03 10^3/uL (0.0-0.2); Absolute Eosinophil Count 0.07 10^3/uL (0.0-0.7); Absolute Lymphocyte Count 4.04 10^3/uL (1.2-3.4); Absolute Monocyte Count 0.54 10^3/uL (0.1-0.8); Absolute Neutrophil Count 4.08 10^3/uL (1.2-6.7); Basophils % 0.3; Eosinophils % 0.8; HCT 38.6 % (36.0-46.0); HGB 13.3 g/dL (11.2-15.7); Immature Grans % 0.2; Lactate 1.3 mmol/L (0.6-1.4); MCH 33.1 pg (27.0-33.0); MCHC 34.5 % (32.0-36.0); MCV 96 fL (80-95); MPV 9.5 fL (8.0-11.0); Monocytes % 6.2; Neutrophils % 46.5; Platelet Count 294 10^3/uL (130-400); RBC 4.02 10^6/uL (3.93-5.22); RDW 12.1 % (11.7-14.6); RDW-SD 42.4 fL; WBC 8.78 10^3/uL (4.4-10.8)
[2023-10-05] MEDS: Ondansetron O.D.T. 4 MG TABEF PO (02:46)
[2023-10-05 03:06] LABS: ALT 13 U/L (14-59); AST 10 U/L (15-37); Albumin 3.3 g/dL (3.4-5.0); Alkaline Phosphatase 76 U/L (46-116); Anion Gap 10.7 mmol/L (3-11); BUN 11 mg/dL (7-18); Bilirubin, Total 0.5 mg/dL (0.2-1.0); CO2 22.3 mmol/L (21.0-32.0); CREATININE 0.5 mg/dL (0.55-1.02); Calcium 9.1 mg/dL (8.5-10.1); Chloride 105 mmol/L (98-107); Estimated GFR 119.27 (mL/min/1.73m2); Glucose 102 mg/dL (74-106); Potassium 3.7 mmol/L (3.5-5.1); Sodium 138 mmol/L (136-145); Total Protein 7.1 g/dL (6.4-8.2)
[2023-10-05 03:15] VITALS: BP 95/62; PULSE 90; RESP 18; O2SAT 98
[2023-10-05] MEDS: Ondansetron O.D.T. 4 MG TABEF, 3 TABS/BTL PO (03:23)
== END 2023-10-05 03:23 | disposition home or self-care (01) ==
PROVIDERS: Emergency Provider Student in an Organized Health Care Education/Training Program; PCP Family Medicine
DX: R11.0 Nausea (principal); R53.83 Other fatigue; E11.9 Type 2 diabetes mellitus without complications; F17.210 Nicotine dependence, cigarettes, uncomplicated; Z79.84 Long term (current) use of oral hypoglycemic drugs
CPT/HCPCS: 80053; 96374; 99284; 83605; 85025; 99283

== ENCOUNTER 2023-11-28 16:19 | Emergency (ER) | payer MEDICAID, SELFPAY ==
--- NOTE | 2023-11-28 16:00 | RT.EKG_ITS ---
APPROVED REPORT Exam: Resting ECG Reason for Exam: unresponsive Patient Location: E HR:88 bpm ECG Measurements Heart Rate 88 AXIS NH 155 P 50 QRSd 76 QRS 72 QT 378 T 49 QTc 458 Conclusion Sinus rhythm. 88 normal axis no stemi
[2023-11-28 16:19] VITALS: BP 103/61; PULSE 96; RESP 18; TEMP 36.2; O2SAT 99
--- NOTE | 2023-11-28 16:32 | W.ED.GENAD ---
Discharge Plan Disposition Patient Disposition: Home Discharge Details Clinical Impression: Episode of altered consciousness, Hypoalbuminemia, Hypokalemia Primary Care Provider: Antoni Ohara ED Provider: Marilee Killian Home Meds and New Rx's Prescriptions: Continued gabapentin 300 mg capsule 300 mg PO QHS fludrocortisone 0.1 mg tablet 0.1 mg PO DAILY Qty: 90 3RF metformin 500 mg tablet 500 mg PO BID Qty: 180 1RF levothyroxine 75 mcg tablet See Rx Instructions .ROUTE .COMPLEX Qty: 90 3RF Dose Instruction: TAKE 1 TABLET BY MOUTH DAILY Rx Instructions: TAKE 1 TABLET BY MOUTH DAILY metoprolol tartrate 25 mg tablet 25 mg PO BID Qty: 180 3RF Hold Instructions: per pcp divalproex 500 mg Tablet,Delayed Release (Dr/Ec) 1,000 mg PO BID topiramate [Topamax] 50 mg tablet 50 mg PO BID Patient Comments: Take 1 tablet by mouth twice a day Aristada 882 mg/3.2 mL suspension,extended rel syring 882 mg IM Q4W Hold Instructions: Pt Stopped/Never Started Patient Comments: not taking Rx Instructions: every 4 weeks Discharge Instructions Instructions: Hypokalemia (ED) Additional Instructions: Take a multivitamin daily Increase your protein in your diet and try to have fat protein and carbohydrate at every meal, this is a meat veggie products, I would recommend meeting with a jack winder at the discretion of your doctor to go over healthy meals I recommend having 3 solid meals daily in addition to 3 snacks daily Use caution when going from sitting to standing I recommend reassessment by her doctor in 24 to 48 hours and return earlier should you have new or worsening complaints Referrals: Antoni Ohara DO [Primary Care Provider] - [facility] General Date/Time Provider Initiated Documentation: 11/28/23 16:28. HPI Narrative: This 43-year-old female reportedly was sitting with her sister when she lost consciousness. She has a history of POTS and states she felt similarly prior to this episode. She denies any attempts to harm self. She was reported to be unresponsive by EMS but had stable vitals aside from a soft blood pressure. Sister states that she did not make any attempts to harm self today. She did have dilated pupils on arrival but was dilated by the director traffic and planning prior to her appointment today. She denies any chance of or polysubstance abuse. There is no reported history of seizure activity. Denies any history of urinary symptoms. Denies any new medications per patient. Related Data Home Medications Medication Instructions Recorded Confirmed gabapentin 300 mg capsule 300 mg PO QHS 10/25/18 11/21/23 aripiprazole lauroxil 882 mg/3.2 882 mg IM Q4W 07/12/21 11/21/23 mL suspension, ext.rel. IM syringe (Aristada) topiramate 50 mg tablet (Topamax) 50 mg PO BID 07/12/21 11/21/23 divalproex 500 mg tablet,delayed 1,000 mg PO BID 09/17/21 11/21/23 release fludrocortisone 0.1 mg tablet 0.1 mg PO DAILY #90 tabs 05/27/23 11/21/23 levothyroxine 75 mcg tablet See Rx Instructions .Route 06/28/23 11/21/23 .COMPLEX #90 tabs metformin 500 mg tablet 500 mg PO BID #180 tabs 10/11/23 11/21/23 metoprolol tartrate 25 mg tablet 25 mg PO BID #180 tabs 10/25/23 11/21/23 Previous Rx's Medication Instructions Recorded fludrocortisone 0.1 mg tablet 0.1 mg PO DAILY #90 tabs 05/27/23 levothyroxine 75 mcg tablet See Rx Instructions .Route 06/28/23 .COMPLEX #90 tabs metformin 500 mg tablet 500 mg PO BID #180 tabs 10/11/23 metoprolol tartrate 25 mg tablet 25 mg PO BID #180 tabs 10/25/23 Allergies Allergy/AdvReac Type Severity Reaction Status Date / Time codeine Allergy Mild unknown Unverified 10/27/23 16:12 General Stated Complaint: AMS/LOC CECILIA: 3 Course Vital Signs Vital signs: Vital Signs Temperature 36.2 C L 11/28/23 16:19 Pulse 96 H 11/28/23 16:19 Respiratory Rate 18 11/28/23 16:19 Blood Pressure 103/61 11/28/23 16:19 Pulse Oximetry 99 11/28/23 16:19 Temperature 36.2 C L 11/28/23 16:19 Temperature Source Tympanic 11/28/23 16:19 Pulse 96 H 11/28/23 16:19 Respiratory Rate 18 11/28/23 16:19 Respiratory Effort Normal, Non-Labored 11/28/23 16:24 Blood Pressure 103/61 11/28/23 16:19 Blood Pressure Position Supine 11/28/23 16:19 Pulse Oximetry 99 11/28/23 16:19 Oxygen Delivery Method Room Air 11/28/23 16:19 Oxygen Flow Rate 0 11/28/23 16:19 Medical Decision Making This 43-year-old female who is complex and known to this facility with history of diabetes, POTS presents with alteration in mental status, visualized syncope, and no visualized seizure-like activity, reportedly unresponsive for several minutes per EMS presents in no acute distress, alert and oriented, answering questions without difficulty, no visible sign of trauma, CT head does not show evidence of acute abnormality per radiology interpretation my review Chest x-ray without evidence of abnormality per radiology interpretation my review Diagnostic labs, anemia, patient will need to follow-up with her primary care physician although reticulocyte count within normal limits Patient's mother is in room and feels as though she is at her cognitive baseline Vitals have remained stable for patient including blood pressure when compared to prior No evidence of obvious infectious etiology of patient's complaints Drug screen negative for acute abnormality At this time, patient is cognitively intact without acute abnormalities, potassium supplemented Albumin is low and patient has had significant weight loss newly placed on Ozempic, encouraged to follow-up with primary care physician and mental health regarding medications for review Orthostatics negative, ambulatory with steady gait, drinking juice in room without difficulty Has presented with similar presentation in the past Recommendation for close outpatient reassessment, stable for discharge home at this time GCS 15, alert and oriented x 4, cranial nerves II through XII intact, lungs clear to auscultation bilaterally, cardiac rate rhythm regular, no peripheral edema, no visible sign of trauma, no abdominal tenderness Quality:SDOH Health Related Social Needs: No Data to Display PFSH All Active Problems (Updated 11/28/23 @ 18:40 by CECI Varela) Hypokalemia (Acute) Hypoalbuminemia (Acute) Episode of altered consciousness (Acute) 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) Diabetes mellitus type II, controlled (Acute) POTS (postural orthostatic tachycardia syndrome) (Acute) Plantar warts (Acute) Fatigue (Acute) Pelvic pain (Acute) Orthostatic hypotension (Acute) Chronic diarrhea (Acute) Nonalcoholic steatohepatitis (Acute) Hypothyroid (Chronic) Hirsutism (Acute) Dysfunctional uterine bleeding (Acute) Oligomenorrhea (Acute) Schizophrenia (Chronic) Diabetes mellitus type 2 in obese (Acute) Medical History Uterine mass Non compliance w medication regimen Yeast dermatitis RLS (restless legs syndrome) H/O suicide attempt Schizoaffective disorder Deviated nasal septum Trigeminal neuralgia of left side of face (01/03/18) Type 2 diabetes mellitus History of hypothyroidism Drug overdose, intentional Surgical History S/p breast implant removal Sep 2019 S/P breast implant, left H/O pilonidal cyst S/P foot surgery Ligation of fallopian tube Family History Mother Diabetes Father Heart disease Social History Smoking/Tobacco Use Status: Current every day Tobacco Type: e-cigarettes Quit status: considering quitting Smoking risk assessment performed?: Yes Alcohol Intake: never Drug use: Current Sobriety Substance use type: marijuana Adopted: No Caregiver/Support person: No Foster care: No Housing: apartment Number of Children: 2 number of grandchildren: 0 Education Level: high school Do you need help understanding health information?: Never current occupation: Disabled Pets and animals: Yes (1) Pets and animals: cat(s) Do you think of yourself as: straight/heterosexual Current gender identity: female What is your relationship status?: How often do you talk on the phone with friends or family?: decline to answer How often do you get together with friends or relatives?: decline to answer Do you belong to any clubs or organized social groups?: decline to answer Panel score (0-1 are the most socially isolated patients): 0 What type of physical activity do you participate in: walking Frequency: 1-2 times per week Lauren/Voodoo: Yarsani Special lauren needs: No Seatbelt use: always Drive intox or ride w/intox 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 Date GA/Weeks # Preg Succ Route Wgt Sex Labor Lgth Anesthesia Location Prov Complic 08/30/01 40 No Yes vaginal Female 03/25/02 40 No Yes vaginal Male Delivery Date: 08/30/01 [facility] Last Updated by: [facility]e [facility]
[2023-11-28] MEDS: Normal Saline 1,000 ML 1000 ML IV (16:37)
[2023-11-28 16:39] LABS: BE (Venous) -4 mmol/L (-2-3); HCO3 (Venous) 22 mmol/L (23-28); O2 Sat (Venous) 61 %; TCO2 (Venous) 21 mmol/L (24-29); pCO2 (Venous) 43 mmHg (41-51); pH (Venous) 7.33 (7.31-7.41); pO2 (Venous) 32 mmHg
[2023-11-28 16:40] LABS: Abs Immature Grans 0.03 10^3/uL (0.0-0.06); Absolute Basophil Count 0.03 10^3/uL (0.0-0.2); Absolute Eosinophil Count 0.04 10^3/uL (0.0-0.7); Absolute Lymphocyte Count 3.46 10^3/uL (1.2-3.4); Absolute Monocyte Count 0.48 10^3/uL (0.1-0.8); Absolute Neutrophil Count 3.01 10^3/uL (1.2-6.7); Basophils % 0.4; Eosinophils % 0.6; HCT 32.7 % (36.0-46.0); Immature Grans % 0.4; Lymphocytes % 49.1; MCHC 33.6 % (32.0-36.0); MCV 101 fL (80-95); MPV 9.1 fL (8.0-11.0); Monocytes % 6.8; Neutrophils % 42.7; Platelet Count 236 10^3/uL (130-400); RBC 3.24 10^6/uL (3.93-5.22); RDW 11.9 % (11.7-14.6); RDW-SD 44.1 fL; WBC 7.05 10^3/uL (4.4-10.8)
--- NOTE | 2023-11-28 16:45 | DI.RAD_ITS ---
Exam(s) XR CHEST 2V PA LATERAL EXAM: XR CHEST 2V PA LATERAL CLINICAL HISTORY: ams TECHNIQUE: 2D digital imaging was performed of the chest. Two images were obtained. PA and lateral views were obtained. COMPARISON: CR,XR XR CHEST 2V PA LATERAL from 04/20/2023 FINDINGS: MEDIASTINUM: Normal. HEART: Normal. PULMONARY VASCULATURE: Normal. LUNGS: Clear. PLEURAL SPACE: No pleural effusion or pneumothorax. BONE:Within normal limits for the patient's age. OTHER FINDINGS:Normal. IMPRESSION: No acute pulmonary findings. DATA REPOSITORY: RADIATION DOSE DELIVERED:
--- NOTE | 2023-11-28 16:45 | DI.CT_ITS ---
Exam(s) CT HEAD WO EXAM: CT HEAD WO CLINICAL HISTORY: hi ams. TECHNIQUE: Imaging Protocol: Axial computed tomography images with coronal and sagittal reformatted images were created and reviewed COMPARISON: CT CT HEAD WO from 07/19/2023 FINDINGS: Ventricles and Extra axial spaces: Normal in size and morphology for the patient's age. Hemorrhage: None. Cerebral parenchyma: No mass effect. No evidence of an acute territorial infarct. Midline shift: None. Brainstem/Cerebellum: Normal. Calvarium: Normal. Visualized Paranasal sinuses/Mastoids: Clear. Soft Tissues: Unremarkable. IMPRESSION: No acute intracranial process. RADIATION DOSE DELIVERED: Total DLP DATA REPOSITORY: All CT scans at this facility are submitted to the National Radiology Data Registry (NRDR) Dose Index Registry (DIR) with the [employer] (ACR). RADIATION OPTIMIZATION: All CT scans at this facility use at least one of these dose optimization te chniques: automated exposure control; mA and/or kV adjustment per patient size (includes targeted exa ms where dose is matched to clinical indication); or iterative reconstruction.
[2023-11-28 17:02] LABS: Salicylate < 2.8 mg/dL (<2.8)
[2023-11-28 17:04] LABS: Acetaminophen < 2 ug/mL (10-30)
[2023-11-28 17:08] LABS: ALT 17 U/L (14-59); AST 9 U/L (15-37); Albumin 2.8 g/dL (3.4-5.0); Alkaline Phosphatase 74 U/L (46-116); Anion Gap 8.9 mmol/L (3-11); BUN 10 mg/dL (7-18); Bilirubin, Total 0.3 mg/dL (0.2-1.0); CO2 23.1 mmol/L (21.0-32.0); CREATININE 0.6 mg/dL (0.55-1.02); Calcium 8.1 mg/dL (8.5-10.1); Chloride 109 mmol/L (98-107); Estimated GFR 114.15 (mL/min/1.73m2); Glucose 95 mg/dL (74-106); Magnesium 2.2 mg/dL (1.8-2.4); Potassium 3.3 mmol/L (3.5-5.1); Sodium 141 mmol/L (136-145); TSH (W/Ref FT4) 0.22 uIU/mL (0.36-3.74); Total Protein 5.9 g/dL (6.4-8.2); Troponin I < 50 ng/L (< or =60)
[2023-11-28 17:09] LABS: ETHANOL BLOOD < 3.0 mg/dL (<10)
[2023-11-28 17:25] LABS: FREE T4 1.04 ng/dL (0.76-1.46)
[2023-11-28 17:41] LABS: Folate 10.2 ng/mL (8.6-20.0); Vitamin B12 590 pg/mL (193-986)
[2023-11-28] MEDS: Potassium Chloride 20 MEQ TABCR 40 MEQ PO (19:18)
--- NOTE | 2023-12-07 14:53 | NUR.NOTE ---
Accessed pt chart to reconcile EKG orders with EKG?s in [facility]. Nursing Note:
== END 2023-11-28 19:19 | disposition home or self-care (01) ==
PROVIDERS: Emergency Provider Physician Assistant; PCP Family Medicine
DX: R40.4 Transient alteration of awareness (principal); E88.09 Other disorders of plasma-protein metabolism, not elsewhere classified; E87.6 Hypokalemia; F17.290 Nicotine dependence, other tobacco product, uncomplicated; Z79.84 Long term (current) use of oral hypoglycemic drugs
CPT/HCPCS: 80053; 82805; 93005; 96360; 99285; 70450; 71046; 80320; 80329; 82607; 82746; 83735; 84439; 84443; 84484; 85025; 85045; 93010; 99284

== ENCOUNTER 2023-12-11 20:52 | Emergency (ER) | payer MEDICAID, SELFPAY ==
[2023-12-11 20:46] VITALS: BP 90/54; PULSE 90; RESP 16; TEMP 36.5; O2SAT 100
--- NOTE | 2023-12-11 21:00 | RT.EKG_ITS ---
APPROVED REPORT Exam: Resting ECG Reason for Exam: dizziness Patient Location: E HR:84 bpm ECG Measurements Heart Rate 84 AXIS [place] 150 P 53 QRSd 86 QRS 59 QT 402 T 51 QTc 475 Conclusion Sinus rhythm...normal P axis, V-rate 60- 99 sinus rhythm, normal axis, normal intervals, non ischemic
--- NOTE | 2023-12-11 21:22 | ED.GENADUL_ITS ---
Discharge Plan Disposition Patient Disposition: Home Condition: Improving Discharge Details Chief Complaint: Sorethroat Clinical Impression: Throat discomfort Primary Care Provider: Antoni Ohara ED Provider: Los Leary Home Meds and New Rx's Prescriptions: No Action Boost High Protein 0.06 gram- 1 kcal/mL liquid 237 ml PO .COMPLEX Qty: 2844 3RF Rx Instructions: 237 mL orally 3/week; fludrocortisone 0.1 mg tablet 0.1 mg PO DAILY Qty: 90 3RF metoprolol succinate 25 mg tablet extended release 24 hr 25 mg PO BID levothyroxine 75 mcg tablet See Rx Instructions .ROUTE .COMPLEX Qty: 90 3RF Dose Instruction: TAKE 1 TABLET BY MOUTH DAILY Rx Instructions: TAKE 1 TABLET BY MOUTH DAILY divalproex 500 mg Tablet,Delayed Release (Dr/Ec) 1,000 mg PO BID topiramate [Topamax] 50 mg tablet 50 mg PO BID Patient Comments: Take 1 tablet by mouth twice a day Aristada 882 mg/3.2 mL suspension,extended rel syring 882 mg IM Q4W Hold Instructions: Pt Stopped/Never Started Patient Comments: not taking Rx Instructions: every 4 weeks Discharge Instructions Instructions: Pharyngitis (ED) Additional Instructions: Please follow-up with your primary care physician HPI General Date/Time Provider Initiated Documentation: 12/11/23 20:53 . HPI Narrative: 43-year-old female history of diabetes, POTS, schizophrenia, presents with tightness in her throat over the last day, intermittent in nature, denies trouble speaking. Denies trouble breathing. No recent environmental exposure or medication exposure. Noticed episode while she was shopping in [employer] today. Related Data Home Medications Medication Instructions Recorded Confirmed aripiprazole lauroxil 882 mg/3.2 882 mg IM Q4W 07/12/21 12/11/23 mL suspension, ext.rel. IM syringe (Aristada) topiramate 50 mg tablet (Topamax) 50 mg PO BID 07/12/21 12/11/23 divalproex 500 mg tablet,delayed 1,000 mg PO BID 09/17/21 12/11/23 release fludrocortisone 0.1 mg tablet 0.1 mg PO DAILY #90 tabs 05/27/23 12/11/23 levothyroxine 75 mcg tablet See Rx Instructions .Route 06/28/23 12/11/23 .COMPLEX #90 tabs food supplemt, lactose-reduced 237 ml PO .COMPLEX #2,844 mL 11/29/23 12/11/23 0.06 gram-1 kcal/mL oral liquid (Boost High Protein) metoprolol succinate 25 mg 25 mg PO BID 12/06/23 12/11/23 tablet,extended release 24 hr Previous Rx's Medication Instructions Recorded fludrocortisone 0.1 mg tablet 0.1 mg PO DAILY #90 tabs 05/27/23 levothyroxine 75 mcg tablet See Rx Instructions .Route 06/28/23 .COMPLEX #90 tabs food supplemt, lactose-reduced 237 ml PO .COMPLEX #2,844 mL 11/29/23 0.06 gram-1 kcal/mL oral liquid (Boost High Protein) Allergies Allergy/AdvReac Type Severity Reaction Status Date / Time codeine Allergy Mild unknown Unverified 12/11/23 20:53 General Stated Complaint: Sorethroat CECILIA: 3 Review of Systems Narrative: Review of Systems Constitutional: negative Eyes: negative ENT: Throat discomfort Cardiovascular: negative Respiratory: negative Gastrointestinal: negative : negative Musculoskeletal: negative Skin: negative Neurologic: negative Psych: negative Exam Narrative Exam Narrative: Physical Examination General: alert, awake, cooperative, resting comfortably, no acute distress HEENT: normocephalic, atraumatic; PERRL, EOM intact, conjunctiva normal; no nasal discharge; moist mucous membranes, oral and pharyngeal mucosa normal, tolerating secretions; normal voice no stridor Neck: supple, trachea midline; full ROM; no crepitus no deformity no induration no erythema Chest: normal to inspection Respiratory: normal respiratory effort, speaking in full sentences Skin: no lesions, rashes or trauma appreciated Neuro: AAOx3, normal speech, moving all extremities Psych: Appropriate mood and affect Course Vital Signs Vital signs: Vital Signs Temperature 36.5 C 12/11/23 20:46 Pulse 90 12/11/23 20:46 Respiratory Rate 16 12/11/23 20:46 Blood Pressure 90/54 L 12/11/23 20:46 Pulse Oximetry 100 12/11/23 20:46 Temperature 36.5 C 12/11/23 20:46 Temperature Source Skin 12/11/23 20:46 Pulse 90 12/11/23 20:46 Respiratory Rate 16 12/11/23 20:46 Respiratory Effort Normal, Non-Labored 12/11/23 20:53 Blood Pressure 90/54 L 12/11/23 20:46 Blood Pressure Position Sitting 12/11/23 20:46 Pulse Oximetry 100 12/11/23 20:46 Oxygen Delivery Method Room Air 12/11/23 20:46 Oxygen Flow Rate 0 12/11/23 20:46 Pain Level 4 12/11/23 20:46 Medical Decision Making 43-year-old female history of POTS, diabetes, schizophrenia presents with anterior throat tightness and dizziness. Speaking full sentences tolerating secretions normal voice no stridor no respiratory distress. Normoxic. Endorses chronically low blood pressure noted to have a blood pressure of 90/54. Afebrile nontoxic. EKG normal sinus rhythm nonischemic, blood sugar 98. Consider stress reaction versus mild allergic reaction low suspicion for anaphylaxis no evidence of deep space infection of the head or neck. Low suspicion for pneumothorax ACS or aortic pathology. Trial of Benadryl dexamethasone close reassessment. Likely home with close follow 22: 34 patient resting comfortably no acute distress. Feeling better after medication. Tolerating secretions normal voice. 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) Diabetes mellitus type II, controlled (Acute) POTS (postural orthostatic tachycardia syndrome) (Acute) Plantar warts (Acute) Fatigue (Acute) Pelvic pain (Acute) Orthostatic hypotension (Acute) Chronic diarrhea (Acute) Nonalcoholic steatohepatitis (Acute) Hypothyroid (Chronic) Hirsutism (Acute) Dysfunctional uterine bleeding (Acute) Oligomenorrhea (Acute) Schizophrenia (Chronic) Diabetes mellitus type 2 in obese (Acute) Medical History Uterine mass Non compliance w medication regimen Yeast dermatitis RLS (restless legs syndrome) H/O suicide attempt Schizoaffective disorder Deviated nasal septum Trigeminal neuralgia of left side of face (01/03/18) Type 2 diabetes mellitus History of hypothyroidism Drug overdose, intentional Surgical History S/p breast implant removal Sep 2019 S/P breast implant, left H/O pilonidal cyst S/P foot surgery Ligation of fallopian tube Family History Mother Diabetes Father Heart disease Social History Smoking/Tobacco Use Status: Current every day Tobacco Type: e-cigarettes Quit status: considering quitting Smoking risk assessment performed?: Yes Alcohol Intake: never Drug use: Current Sobriety Substance use type: does not use Adopted: No Caregiver/Support person: No Foster care: No Housing: apartment Number of Children: 2 number of grandchildren: 0 Education Level: high school Do you need help understanding health information?: Never current occupation: Disabled Pets and animals: Yes (1) Pets and animals: cat(s) Do you think of yourself as: straight/heterosexual Current gender identity: female What is your relationship status?: How often do you talk on the phone with friends or family?: decline to answer How often do you get together with friends or relatives?: decline to answer Do you belong to any clubs or organized social groups?: decline to answer Panel score (0-1 are the most socially isolated patients): 0 What type of physical activity do you participate in: walking Frequency: 1-2 times per week Lauren/Religious: Anglican Special lauren needs: No Seatbelt use: always Drive intox or ride w/intox catering truck driver: No Do you feel safe at home: Yes Do you feel safe in your relationship?: Yes Female Reproductive History Menstrual Age of Menarche: 16 Duration of menses: other control method: permanent sterilization History History 2 Para 2 Hx # Term Pregnancies Multiple births Hx # Pregnancies Ectopic pregnancies AB induced Hx Number of Living Children AB spontaneous Past Pregnancies Del. Date GA/Weeks # Preg Succ Route Wgt Sex Labor Lgth Anesth esia Location Prov Complic 08/30/01 40 No Yes vaginal Female 03/25/02 40 No Yes vaginal Male Delivery Date: 08/30/01 [facility]02 Last Updated by: [facility]
[2023-12-11] MEDS: diphenhydrAMINE 25 MG CAP PO (21:28)
[2023-12-11] MEDS: Dexamethasone 10 MG/ML VIAL PO (21:28)
[2023-12-11 22:41] VITALS: BP 96/60; PULSE 90; RESP 16; O2SAT 100
== END 2023-12-11 22:43 | disposition home or self-care (01) ==
PROVIDERS: Emergency Provider Emergency Medicine; PCP Family Medicine
DX: R42 Dizziness and giddiness (principal); R07.0 Pain in throat; E11.9 Type 2 diabetes mellitus without complications; F17.290 Nicotine dependence, other tobacco product, uncomplicated
CPT/HCPCS: 80053; 82962; 87040; 93005; 99284; 83605; 85025; 93010; 99283; J1100

== ENCOUNTER → 2023-12-13 04:00 | Outpatient (CLI) | payer MEDICAID, SELFPAY ==
--- NOTE | 2023-12-13 12:40 | DI.RAD_ITS ---
Exam(s) XR SHOULDER LT COMPLETE 2+V EXAM: XR SHOULDER LT COMPLETE 2+V CLINICAL HISTORY: M25.519 Pain in unspecified shoulder, R/O AC joint arthritis. TECHNIQUE: 2D digital imaging was performed. Three views. COMPARISON: CR RIGHT SHOULDER COMPLETE from 10/11/2012 FINDINGS: BONES: No acute fracture is present. No bony destructive lesion is seen. JOINTS: No dislocation present. Glenohumeral joint space is maintained. Minimal spurring at the gle noid. Minimal spurring at the AC joint. SOFT TISSUE: Large calcification adjacent to the posterosuperior humeral head consistent with calcifi c tendinosis. IMPRESSION: Calcific tendinosis. DATA REPOSITORY: RADIATION DOSE DELIVERED:
== END ==
PROVIDERS: PCP Family Medicine; Visit Provider Family Medicine
DX: M25.512 Pain in left shoulder (principal); M75.32 Calcific tendinitis of left shoulder
CPT/HCPCS: 73030

== ENCOUNTER → 2023-12-27 03:50 | Outpatient (CLI) | payer MEDICAID, SELFPAY ==
--- NOTE | 2023-12-27 07:00 | DI.US_ITS ---
Exam(s) US ABDOMEN LIMITED EXAM: US ABDOMEN LIMITED CLINICAL HISTORY: Re-evaluate after weight loss,NONALCOHOLIC STEATOHEPATITIS,K75.81 TECHNIQUE: Ultrasound abdomen performed using standard protocol. COMPARISON: None FINDINGS: There is no ascites evident. LIVER: Mildly hypoechoic indicating fatty parenchymal change. GALLBLADDER/BILIARY: The gallbladder is partially contracted. No obvious gallstones. No gallbladder wall edema nor pericholecystic fluid. The common hepatic duct isnot dilated, measuring 2mm at the level of davide hepatis. PANCREAS: There is no evidence of pancreatic mass nor dilatation of the pancreatic duct. RIGHT KIDNEY:No evidence of solid mass, calculus, nor hydronephrosis. No cortical cysts evident. IMPRESSION: 1. No evidence of cholelithiasis nor dilatation of the biliary tree. 2. Liver is mildly hyperechoic indicating element of steatosis. There are no discrete focal hepatic lesions. 3. No other significant right upper quadrant ultrasound findings and there is no ascites. DATA REPOSITORY:
== END ==
PROVIDERS: PCP Family Medicine; Visit Provider Family Medicine
DX: K75.81 Nonalcoholic steatohepatitis (NASH) (principal)
CPT/HCPCS: 76705

== ENCOUNTER 2023-12-31 20:29 | Emergency (ER) | payer MEDICAID, SELFPAY ==
[2023-12-31 21:04] VITALS: BP 104/68; PULSE 100; RESP 16; TEMP 36.5; O2SAT 99
--- NOTE | 2023-12-31 21:11 | W.ED.GENAD ---
Discharge Plan Discharge Details Chief Complaint: Abd Prob Primary Care Provider: Antoni Ohara ED Provider: Ankur Moran Home Meds and New Rx's Prescriptions: No Action Boost High Protein 0.06 gram- 1 kcal/mL liquid 237 ml PO .COMPLEX Qty: 2844 3RF Rx Instructions: 237 mL orally 3/week; naproxen 500 mg tablet 500 mg PO BID PRN (Reason: pain) Qty: 60 0RF semaglutide 2 mg/dose (8 mg/3 mL) pen injector 2 mg subcut QWEEK Qty: 3 3RF Patient Comments: pt not familiar with this medication fludrocortisone 0.1 mg tablet 0.1 mg PO DAILY Qty: 90 3RF urea 40 % cream 1 applic topical DAILY Qty: 28.35 3RF Salicate 10 % liquid 0.1 ml topical DAILY 30 Days Qty: 30 0RF Rx Instructions: Apply on the wart with a Q tip once a day metoprolol succinate 25 mg tablet extended release 24 hr 25 mg PO BID levothyroxine 75 mcg tablet See Rx Instructions .ROUTE .COMPLEX Qty: 90 3RF Dose Instruction: TAKE 1 TABLET BY MOUTH DAILY Rx Instructions: TAKE 1 TABLET BY MOUTH DAILY divalproex 500 mg Tablet,Delayed Release (Dr/Ec) 1,000 mg PO BID topiramate [Topamax] 50 mg tablet 50 mg PO BID Patient Comments: Take 1 tablet by mouth twice a day Aristada 882 mg/3.2 mL suspension,extended rel syring 882 mg IM Q4W Hold Instructions: Pt Stopped/Never Started Patient Comments: not taking Rx Instructions: every 4 weeks HPI General Date/Time Provider Initiated Documentation: 12/31/23 21:11. HPI Narrative: 43 year-old female presents to ED today by POV/ambulating with a chief complaint of vague abdominal pain, hip pain, dysuria, hematuria, vaginal discharge, cough, vomiting two days ago with onset of abdominal pain today- has been seen for similar recently. Quality described as generalized abdominal pain, poor historian, whitish vaginal discharge without odor, urine with odor, denies chest pain, endorses mild chronic cough, no radiation to syncope, visual changes, numbness/tingling, fever, black/bloody stools. Severity is described as unable to quantify. Palliating factors include nothing specific attempted. Provoking factors include nothing specific. Patient not anticoagulated. Related Data Home Medications Medication Instructions Recorded Confirmed aripiprazole lauroxil 882 mg/3.2 882 mg IM Q4W 07/12/21 12/22/23 mL suspension, ext.rel. IM syringe (Aristada) topiramate 50 mg tablet (Topamax) 50 mg PO BID 07/12/21 12/22/23 divalproex 500 mg tablet,delayed 1,000 mg PO BID 09/17/21 12/22/23 release fludrocortisone 0.1 mg tablet 0.1 mg PO DAILY #90 tabs 05/27/23 12/22/23 levothyroxine 75 mcg tablet See Rx Instructions .Route 06/28/23 12/22/23 .COMPLEX #90 tabs food supplemt, lactose-reduced 237 ml PO .COMPLEX #2,844 mL 11/29/23 12/22/23 0.06 gram-1 kcal/mL oral liquid (Boost High Protein) metoprolol succinate 25 mg 25 mg PO BID 12/06/23 12/22/23 tablet,extended release 24 hr naproxen 500 mg tablet 500 mg PO BID PRN pain #60 tabs 12/12/23 12/22/23 semaglutide 2 mg/dose (8 mg/3 mL) 2 mg (0.75 mL) subcut QWEEK #3 mL 12/12/23 12/22/23 subcutaneous pen injector salicylic acid 10 % topical liquid 0.1 ml topical DAILY 30 days #30 mL 12/19/23 12/22/23 (Salicate) urea 40 % topical cream 1 applic topical DAILY #28.35 grams 12/19/23 12/22/23 Previous Rx's Medication Instructions Recorded fludrocortisone 0.1 mg tablet 0.1 mg PO DAILY #90 tabs 05/27/23 levothyroxine 75 mcg tablet See Rx Instructions .Route 06/28/23 .COMPLEX #90 tabs food supplemt, lactose-reduced 237 ml PO .COMPLEX #2,844 mL 11/29/23 0.06 gram-1 kcal/mL oral liquid (Boost High Protein) naproxen 500 mg tablet 500 mg PO BID PRN pain #60 tabs 12/12/23 semaglutide 2 mg/dose (8 mg/3 mL) 2 mg (0.75 mL) subcut QWEEK #3 mL 12/12/23 subcutaneous pen injector salicylic acid 10 % topical liquid 0.1 ml topical DAILY 30 days #30 mL 12/19/23 (Salicate) urea 40 % topical cream 1 applic topical DAILY #28.35 grams 12/19/23 Allergies Allergy/AdvReac Type Severity Reaction Status Date / Time codeine Allergy Mild unknown Verified 12/22/23 15:34 General Stated Complaint: Abd Prob CECILIA: 3 Review of Systems All systems reviewed & are unremarkable except as noted in HPI and below Exam Narrative Exam Narrative: GENERAL APPEARANCE: Well-nourished, non-toxic, awake and alert, atraumatic, no acute distress. SKIN: Warm, pink, dry, intact, without rashes/lesions/ulcerations. HEAD: Normocephalic, atraumatic, receding hairline. EYES: Pupils PERRLA, EOMs intact without nystagmus, normal conjunctiva, no exudates on lids/lashes. ENT: Nares patent, no circumoral cyanosis, no facial swelling NECK: Supple, trachea midline, painless cervical ROM. LUNGS/CHEST: Lungs CTA bilaterally - no rhonchi/rales/wheezes diffusely, non-labored respirations, normal A/P diameter, symmetrical expansion, no chest wall deformity HEART (CV/PV): Regular rate and rhythm without murmur, no peripheral edema, no JVD. ABDOMEN: Soft, non-distended, no guarding, RUQ/RLQ abdominal tenderness without Daigle's sign of McBurney's point tenderness, no Rovsing's, no CVA tenderness to percussion bilaterally. MSK: Normal ROM, no swelling/deformity to bilateral UEs or LEs, moving all extremities without weakness, no cyanosis, spine midline without tenderness, normal curvature. NEURO: Mental Status AAOx4 - alert to person, place, time, events No facial droop, no forehead involvement. Motor: No focal weakness - strength 5/5 in bilateral UEs and LEs, proximal and distal, symmetric. Sensory: sensation intact to light touch globally. Gait normal: patient ambulated without ataxia into ED room. PSYCH: flat affect, cooperative, pleasant, appropriate speech Course Vital Signs Vital signs: Vital Signs Temperature 36.5 C 12/31/23 21:04 Pulse 100 H 12/31/23 21:04 Respiratory Rate 16 12/31/23 21:04 Blood Pressure 104/68 12/31/23 21:04 Pulse Oximetry 99 12/31/23 21:04 Temperature 36.5 C 12/31/23 21:04 Pulse 100 H 12/31/23 21:04 Respiratory Rate 16 12/31/23 21:04 Respiratory Effort Normal, Non-Labored 12/31/23 21:08 Blood Pressure 104/68 12/31/23 21:04 Blood Pressure Position Sitting 12/31/23 21:04 Pulse Oximetry 99 12/31/23 21:04 Oxygen Delivery Method Room Air 12/31/23 21:04 Oxygen Flow Rate 0 12/31/23 21:04 Pain Level 0 12/31/23 21:04 Medical Decision Making This dictation utilizes [id number] dictation software and may contain unedited grammatical errors. 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 Patient denies chest pain, denies shortness of breath, denies near syncope. Patients' medical history: History of uterine mass, history of yeast dermatitis, history of schizoaffective disorder, type 2 diabetes mellitus, POTS, hirsutism, schizophrenia. Family and social history: Noncontributory. Pertinent exam findings / vital signs include R sided TTP ABD, non-peritoneal, vitals stable, nontoxic, afebrile, benign cardiopulmonary exam. Differential / pathologies of concern include GERD, Nausea/vomiting, Gastroenteritis, UTI, Vaginitis, Less likely Sepsis, gastritis, biliary colic, renal colic. Diagnostic studies of: -CBC, BMP, liver panel, magnesium, CRP/ESR, lipase, lactate, UA, vaginal pathogen screen, procalcitonin, CT ABD/Pelvis w Contrast. -CBC shows no leukocytosis, improved hemoglobin from past values -CRP/ESR within normal limits -Lactate 1.3, procalcitonin negative do not suspect sepsis -CMP shows mild hypokalemia which is chronic -Lipase within normal limits -UA shows proteinuria, hematuria -Magnesium within normal limits -Vaginal path screen negative -CTAP pending at sign-out Interventions of: -IVF. ED Course/Assessment/Plan: 43-year-old female with history of schizophrenia and type 2 diabetes mellitus presents with significant constellation of complaints with subacute abdominal pain and nonperitoneal abdominal exam, labs are all reassuring for no emergent pathology, has been seen for this in the past without CT scan recently. CT is pending at time of signout with likely discharge for negative findings per Dr. Aranda. Recommend to go pack of Zofran. Findings not consistent with acute emergent abdominal pathology, sepsis, biliary pathology, UTI, vaginitis, electrolyte derangement or severe dehydration. Disposition of Abdominal Pain of Unknown Etiology. Patient verbalized understanding of the plan and return to ED criteria and engaged in shared decision making. Medical Records Medical records reviewed: Yes I reviewed the patient's medical records. Lab Data Lab results reviewed: Yes I reviewed the patient's lab results. Labs: 12/31/23 22:15 Vaginal Vaginitis Screen - Final Laboratory Tests Range/Units 12/31/23 12/31/23 21:32 21:35 WBC (4.4-10.8) 10^3/uL 6.41 RBC (3.93-5.22) 10^6/uL 3.65 L Hgb (11.2-15.7) g/dL 12.5 Hct (36.0-46.0) % 35.3 L MCV (80-95) fL 97 H MCH (27.0-33.0) pg 34.2 H MCHC (32.0-36.0) % 35.4 RDW (11.7-14.6) % 11.6 L Plt Count (130-400) 10^3/uL 257 MPV (8.0-11.0) fL 9.1 Immature Gran % 0.2 Neutrophils % 35.6 Lymphocytes % 56.0 Monocytes % 7.0 Eosinophils % 0.9 Basophils % 0.3 Nucleated RBC % (0.0-0.3) % 0.0 Absolute Neutrophils (1.2-6.7) 10^3/uL 2.28 Absolute Lymphocytes (1.2-3.4) 10^3/uL 3.59 H Absolute Monocytes (0.1-0.8) 10^3/uL 0.45 Absolute Eosinophils (0.0-0.7) 10^3/uL 0.06 Absolute Basophils (0.0-0.2) 10^3/uL 0.02 ESR (0-20) mm/hr 3 VBG Lactate (0.6-1.4) mmol/L 1.3 Sodium (136-145) mmol/L 140 Potassium (3.5-5.1) mmol/L 3.3 L Chloride (98-107) mmol/L 106 Carbon Dioxide (21.0-32.0) mmol/L 25.8 Anion Gap (3-11) mmol/L 8.2 BUN (7-18) mg/dL 13 Creatinine (0.55-1.02) mg/dL 0.6 Est GFR (CKD-EPI 2020) (mL/min/1.73m2) 114.15 Glucose (74-106) mg/dL 115 H Calcium (8.5-10.1) mg/dL 8.4 L Magnesium (1.8-2.4) mg/dL 2.1 Total Bilirubin (0.2-1.0) mg/dL 0.3 Conjugated Bilirubin (0.0-0.2) mg/dL 0.1 AST (15-37) U/L 9 L ALT (14-59) U/L 18 Alkaline Phosphatase (46-116) U/L 93 C-Reactive Protein (<or=0.5) mg/dL < 0.50 Total Protein (6.4-8.2) g/dL 6.3 L Albumin (3.4-5.0) g/dL 3.1 L Lipase (16-77) U/L 33 Procalcitonin ng/mL < 0.1 Urine Color (Yellow) Yellow Urine Clarity (Clear) Cloudy Urine pH (5-8) 6.0 Ur Specific [place] (1.005-1.025) >= 1.030 H Urine Protein (Neg-Trace) mg/dL 100 H Urine Ketones (Negative) mg/dL Trace H Urine Blood (Negative) Large H Urine Nitrite (Negative) Negative Urine Bilirubin (Negative) Small H Urine Urobilinogen (Up to 0.2) mg/dL 1.0 H Ur Leukocyte Esterase (Negative) Negative Urine RBC (0-2) HPF >50 H Urine WBC (0-5) HPF 3-5 Ur Epithelial Cells (Negative) HPF Many Urine Crystals (Negative) HPF Negative Urine Bacteria (Negative) HPF Moderate Urine Casts (Negative) LPF Negative Urine Mucus (Negative) Moderate Ur Culture Indicated? No/Sq. 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) Diabetes mellitus type II, controlled (Acute) POTS (postural orthostatic tachycardia syndrome) (Acute) Plantar warts (Acute) Fatigue (Acute) Pelvic pain (Acute) Orthostatic hypotension (Acute) Chronic diarrhea (Acute) Nonalcoholic steatohepatitis (Acute) Hypothyroid (Chronic) Hirsutism (Acute) Dysfunctional uterine bleeding (Acute) Oligomenorrhea (Acute) Schizophrenia (Chronic) Diabetes mellitus type 2 in obese (Acute) Medical History Uterine mass Non compliance w medication regimen Yeast dermatitis RLS (restless legs syndrome) H/O suicide attempt Schizoaffective disorder Deviated nasal septum Trigeminal neuralgia of left side of face (01/03/18) Type 2 diabetes mellitus History of hypothyroidism Drug overdose, intentional Surgical History S/p breast implant removal Sep 2019 S/P breast implant, left H/O pilonidal cyst S/P foot surgery Ligation of fallopian tube Family History Mother Diabetes Father Heart disease Social History Smoking/Tobacco Use Status: Current every day Tobacco Type: e-cigarettes Quit status: considering quitting Smoking risk assessment performed?: Yes Alcohol Intake: never Drug use: Current Sobriety Substance use type: does not use Adopted: No Caregiver/Support person: No Foster care: No Housing: apartment Number of Children: 2 number of grandchildren: 0 Education Level: high school Do you need help understanding health information?: Never current occupation: Disabled Pets and animals: Yes (1) Pets and animals: cat(s) Do you think of yourself as: straight/heterosexual Current gender identity: female What is your relationship status?: How often do you talk on the phone with friends or family?: decline to answer How often do you get together with friends or relatives?: decline to answer Do you belong to any clubs or organized social groups?: decline to answer Panel score (0-1 are the most socially isolated patients): 0 What type of physical activity do you participate in: walking Frequency: 1-2 times per week Lauren/Quaker: [employer] lauren needs: No Seatbelt use: always Drive intox or ride w/intox route cdl driver: No Do you feel safe at home: Yes Do you feel safe in your relationship?: Yes Female Reproductive History Menstrual Age of Menarche: 16 Duration of menses: other control method: permanent sterilization History History 2 Para 2 Hx # Term Pregnancies Multiple births Hx # Pregnancies Ectopic pregnancies AB induced Hx Number of Living Children AB spontaneous Past Pregnancies Del. Date GA/Weeks # Preg Succ Route Wgt Sex Labor Lgth Anesthesia Location Prov Complic 08/30/01 40 No Yes vaginal Female 03/25/02 40 No Yes vaginal Male Delivery Date: 08/30/01 [facility]: [facility]/02 Last Updated by: [facility] Sign Out Sign Out Data: Sign Out Comment: Constellation of complaints, subacute ABD pain, vomiting 2 days ago Labs reassuring no sepsis CT pending at time of signout Had UTI symptoms but UA clean, no sign of vaginitis on microbial screen. Likely may need some symptomatic Tx like Zofran to go and reassurance Last updated by Ankur Moran PA at 12/31/23 23:19
[2023-12-31 21:39] LABS: Bilirubin Small (Negative); Blood Large (Negative); Clarity Cloudy (Clear); Glucose Negative (Negative); Ketones Trace mg/dL (Negative); Leukocyte Esterase Negative (Negative); Nitrite Negative (Negative); Specific Gravity >= 1.030 (1.005-1.025)
[2023-12-31 21:42] LABS: Abs Immature Grans 0.01 10^3/uL (0.0-0.06); Absolute Basophil Count 0.02 10^3/uL (0.0-0.2); Absolute Eosinophil Count 0.06 10^3/uL (0.0-0.7); Absolute Lymphocyte Count 3.59 10^3/uL (1.2-3.4); Absolute Monocyte Count 0.45 10^3/uL (0.1-0.8); Absolute Neutrophil Count 2.28 10^3/uL (1.2-6.7); Basophils % 0.3; Eosinophils % 0.9; HCT 35.3 % (36.0-46.0); HGB 12.5 g/dL (11.2-15.7); Immature Grans % 0.2; Lactate 1.3 mmol/L (0.6-1.4); MCH 34.2 pg (27.0-33.0); MCHC 35.4 % (32.0-36.0); MCV 97 fL (80-95); MPV 9.1 fL (8.0-11.0); Neutrophils % 35.6; Platelet Count 257 10^3/uL (130-400); RBC 3.65 10^6/uL (3.93-5.22); RDW 11.6 % (11.7-14.6); RDW-SD 41.3 fL; WBC 6.41 10^3/uL (4.4-10.8)
[2023-12-31] MEDS: Normal Saline 1,000 ML 1000 ML IV (21:43)
[2023-12-31 21:44] LABS: ESR 3 mm/hr (0-20)
[2023-12-31 21:45] VITALS: BP 103/68; PULSE 79
[2023-12-31 21:47] LABS: Epithelial Cells Many HPF (Negative); RBC >50 HPF (0-2)
[2023-12-31 21:48] LABS: Bacteria Moderate HPF (Negative); C & S Indicated? No/Sq. Contamination; Casts Negative LPF (Negative); Crystals Negative HPF (Negative); Mucus Moderate (Negative)
[2023-12-31 22:00] VITALS: BP 101/66; PULSE 75
[2023-12-31 22:00] LABS: ALT 18 U/L (14-59); AST 9 U/L (15-37); Albumin 3.1 g/dL (3.4-5.0); Alkaline Phosphatase 93 U/L (46-116); Anion Gap 8.2 mmol/L (3-11); BUN 13 mg/dL (7-18); Bilirubin, Direct 0.1 mg/dL (0.0-0.2); Bilirubin, Total 0.3 mg/dL (0.2-1.0); CO2 25.8 mmol/L (21.0-32.0); CREATININE 0.6 mg/dL (0.55-1.02); Calcium 8.4 mg/dL (8.5-10.1); Chloride 106 mmol/L (98-107); Estimated GFR 114.15 (mL/min/1.73m2); Glucose 115 mg/dL (74-106); Lipase 33 U/L (16-77); Magnesium 2.1 mg/dL (1.8-2.4); Potassium 3.3 mmol/L (3.5-5.1); Sodium 140 mmol/L (136-145); Total Protein 6.3 g/dL (6.4-8.2)
[2023-12-31 22:03] LABS: C-Reactive Protein < 0.50 mg/dL (<or=0.5)
[2023-12-31 22:18] LABS: Procalcitonin < 0.1 ng/mL
[2023-12-31 23:06] VITALS: BP 109/64; PULSE 75
[2023-12-31 23:16] VITALS: BP 113/78; PULSE 71
--- NOTE | 2023-12-31 23:27 | ED.PROG_ITS ---
Date of service: 12/31/23 Time of Service: 23:27 Medical Decision Making This patient was signed out to me. Please see previous notes for H&P and initial eval. In brief, 43yo F presenting with N/V and RLQ abdominal pain x 2 days as well as vaginal discharge. Laboratory workup reassuring, vaginal swabs sent. Signed out pending CT; if reassuring would discharge home to outpatient followup. CT independently reviewed, agree with radiology read below with no acute process. Potassium slightly low; will give oral replacement here. + hematuria, pt menstruating. On reassessment non-toxic appearing with reassuring vital signs, benign abdominal exam. No RUQ tenderness, negative Daigle's. Patient reports pain is in mid-right abdomen; no lower abdominal or pelvic pain to suggest ovarian pathology. Tolerated PO fluids. Uncertain etiology of symptoms but with reassuring workup here appropriate for outpatient followup with PCP. Discharged home; discharge instructions and return precautions were reviewed with patient who verbalized understanding. All questions were answered and she is in full agreement with the plan. Imaging Data Radiologic Study: Imaging: CT Scan Radiologist's impression: IMPRESSION: No acute abnormality Lab Data Lab results reviewed: Yes I reviewed the patient's lab results. Labs: 12/31/23 22:15 Vaginal Vaginitis Screen - Final Laboratory Tests Range/Units 12/31/23 12/31/23 21:32 21:35 WBC (4.4-10.8) 10^3/uL 6.41 RBC (3.93-5.22) 10^6/uL 3.65 L Hgb (11.2-15.7) g/dL 12.5 Hct (36.0-46.0) % 35.3 L MCV (80-95) fL 97 H MCH (27.0-33.0) pg 34.2 H MCHC (32.0-36.0) % 35.4 RDW (11.7-14.6) % 11.6 L Plt Count (130-400) 10^3/uL 257 MPV (8.0-11.0) fL 9.1 Immature Gran % 0.2 Neutrophils % 35.6 Lymphocytes % 56.0 Monocytes % 7.0 Eosinophils % 0.9 Basophils % 0.3 Nucleated RBC % (0.0-0.3) % 0.0 Absolute Neutrophils (1.2-6.7) 10^3/uL 2.28 Absolute Lymphocytes (1.2-3.4) 10^3/uL 3.59 H Absolute Monocytes (0.1-0.8) 10^3/uL 0.45 Absolute Eosinophils (0.0-0.7) 10^3/uL 0.06 Absolute Basophils (0.0-0.2) 10^3/uL 0.02 ESR (0-20) mm/hr 3 VBG Lactate (0.6-1.4) mmol/L 1.3 Sodium (136-145) mmol/L 140 Potassium (3.5-5.1) mmol/L 3.3 L Chloride (98-107) mmol/L 106 Carbon Dioxide (21.0-32.0) mmol/L 25.8 Anion Gap (3-11) mmol/L 8.2 BUN (7-18) mg/dL 13 Creatinine (0.55-1.02) mg/dL 0.6 Est GFR (CKD-EPI 2020) (mL/min/1.73m2) 114.15 Glucose (74-106) mg/dL 115 H Calcium (8.5-10.1) mg/dL 8.4 L Magnesium (1.8-2.4) mg/dL 2.1 Total Bilirubin (0.2-1.0) mg/dL 0.3 Conjugated Bilirubin (0.0-0.2) mg/dL 0.1 AST (15-37) U/L 9 L ALT (14-59) U/L 18 Alkaline Phosphatase (46-116) U/L 93 C-Reactive Protein (<or=0.5) mg/dL < 0.50 Total Protein (6.4-8.2) g/dL 6.3 L Albumin (3.4-5.0) g/dL 3.1 L Lipase (16-77) U/L 33 Procalcitonin ng/mL < 0.1 Urine Color (Yellow) Yellow Urine Clarity (Clear) Cloudy Urine pH (5-8) 6.0 Ur Specific [place] (1.005-1.025) >= 1.030 H Urine Protein (Neg-Trace) mg/dL 100 H Urine Ketones (Negative) mg/dL Trace H Urine Blood (Negative) Large H Urine Nitrite (Negative) Negative Urine Bilirubin (Negative) Small H Urine Urobilinogen (Up to 0.2) mg/dL 1.0 H Ur Leukocyte Esterase (Negative) Negative Urine RBC (0-2) HPF >50 H Urine WBC (0-5) HPF 3-5 Ur Epithelial Cells (Negative) HPF Many Urine Crystals (Negative) HPF Negative Urine Bacteria (Negative) HPF Moderate Urine Casts (Negative) LPF Negative Urine Mucus (Negative) Moderate Ur Culture Indicated? No/Sq. Contamination Urine Glucose (Negative) mg/dL Negative Quality:SDOH Health Related Social Needs: No Data to Display Sign Out Sign Out Data: Sign Out Comment: Constellation of complaints, subacute ABD pain, vomiting 2 days ago Labs reassuring no sepsis CT pending at time of signout Had UTI symptoms but UA clean, no sign of vaginitis on microbial screen. Likely may need some symptomatic Tx like Zofran to go and reassurance Last updated by Ankur Moran PA at 12/31/23 23:19 Discharge Plan Disposition Patient Disposition: Home Condition: Good Discharge Details Clinical Impression: Abdominal pain Primary Care Provider: Antoni Ohara ED Provider: Savana Aranda Home Meds and New Rx's Prescriptions: Continued Boost High Protein 0.06 gram- 1 kcal/mL liquid 237 ml PO .COMPLEX Qty: 2844 3RF Rx Instructions: 237 mL orally 3/week; naproxen 500 mg tablet 500 mg PO BID PRN (Reason: pain) Qty: 60 0RF semaglutide 2 mg/dose (8 mg/3 mL) pen injector 2 mg subcut QWEEK Qty: 3 3RF Patient Comments: pt not familiar with this medication fludrocortisone 0.1 mg tablet 0.1 mg PO DAILY Qty: 90 3RF urea 40 % cream 1 applic topical DAILY Qty: 28.35 3RF Salicate 10 % liquid 0.1 ml topical DAILY 30 Days Qty: 30 0RF Rx Instructions: Apply on the wart with a Q tip once a day metoprolol succinate 25 mg tablet extended release 24 hr 25 mg PO BID levothyroxine 75 mcg tablet See Rx Instructions .ROUTE .COMPLEX Qty: 90 3RF Dose Instruction: TAKE 1 TABLET BY MOUTH DAILY Rx Instructions: TAKE 1 TABLET BY MOUTH DAILY divalproex 500 mg Tablet,Delayed Release (Dr/Ec) 1,000 mg PO BID topiramate [Topamax] 50 mg tablet 50 mg PO BID Patient Comments: Take 1 tablet by mouth twice a day Aristada 882 mg/3.2 mL suspension,extended rel syring 882 mg IM Q4W Hold Instructions: Pt Stopped/Never Started Patient Comments: not taking Rx Instructions: every 4 weeks Discharge Instructions Instructions: Hypokalemia (ED), Abdominal Pain (ED) Additional Instructions: Call your primary care doctor on Tuesday to schedule an appointment within the next week to followup on your visit today. Discuss your abdominal pain and your low potassium. Tylenol and ibuprofen over the counter as needed for pain; follow the directions on the bottle. Return to the emergency department for new or worsening symptoms including new/different/worse pain, inability to keep down fluids, or if you have any other concerns. Referrals: Antoni Ohara DO [Primary Care Provider] -
[2023-12-31] MEDS: Normal Saline - Diluent 50 ML VIAL IJ (23:38)
[2023-12-31] MEDS: Omnipaque 350 MG/ML 100 ML BTL IJ (23:38)
--- NOTE | 2023-12-31 23:39 | DI.CT_ITS ---
Exam(s) CT ABDOMEN PELVIS W EXAM: CT ABDOMEN PELVIS W CLINICAL HISTORY: R sided abd pain. TECHNIQUE: Imaging Protocol: Axial computed tomography images with coronal and sagittal reformatted images were created and reviewed CONTRAST MATERIAL: Intravenous: Omnipaque-350 100cc Oral: None COMPARISON: CT CT ABDOMEN PELVIS W from 03/10/2022 FINDINGS: VISUALIZED LUNG BASES: No nodules nor pleural effusions evident. ABDOMEN: There is no ascites. LIVER: There are no focal hepatic lesions evident. No dilated intrahepatic ducts. GALLBLADDER/BILIARY: No obvious gallbladder pathology. CBD is not dilated. PANCREAS: No evidence of pancreatic mass nor dilatation of the pancreatic duct. SPLEEN: Spleen is not enlarged. No obvious intrasplenic lesions. Splenic and portal veins are paten t. ADRENALS: There are no significant adrenal masses. KIDNEYS:No cysts evident. No solid masses. There appears to be a solitary punctate 1 millimeter calc ulus in the left kidney. No hydronephrosis nor hydroureter.. ABDOMINAL AORTA: Abdominal aorta is not enlarged. LYMPH NODES:There is no retroperitoneal nor paraaortic adenopathy. ABDOMINAL WALL: No evidence of significant anterior abdominal wall nor inguinal hernia. GI: There is no evidence of bowel obstruction, free air, nor abscess. PELVIS: GI: No evidence of appendicitis.No evidence of sigmoid diverticulitis. LYMPH NODES: There is no intrapelvic nor inguinal adenopathy. REPRODUCTIVE: Slightly thickened endometrium. There are no significant findings in the left adnexa. On the right side there is a corpus luteal cyst in the right ovary an and there are few slightly pro minent veins which drain into a nonthrombosed right gonadal vein. This remains into the IVC. URINARY BLADDER: No calculi nor obvious masses evident OSSEOUS: No fractures and no significant osseous lesions. IMPRESSION: 1. No obvious acute abnormalities. 2. Tiny 1 millimeter punctate nonobstructive calculus in the left kidney noted. 3. Slightly thickened endometrium in the uterus. 4. Mildly dilated nonthrombosed veins in the right adnexa consistent with mild pelvic congestion synd rivka. RADIATION DOSE DELIVERED: 650.21mGy.cm Total DLP DATA REPOSITORY: All CT scans at this facility are submitted to the National Radiology Data Registry (NRDR) Dose Index Registry (DIR) with the [employer] (A[employer]). RADIATION OPTIMIZATION: All CT scans at this facility use at least one of these dose optimization te chniques: automated exposure control; mA and/or kV adjustment per patient size (includes targeted exa ms where dose is matched to clinical indication); or iterative reconstruction.
--- NOTE | 2024-01-01 00:06 | DI.VRAD_ITS ---
PROCEDURE INFORMATION: Exam: CT Abdomen And Pelvis With Contrast Exam date and time: 12/31/2023 11:25 PM Age: 43 years old Clinical indication: Abdominal pain; Localized; Right; Patient HX: R sided abd pain TECHNIQUE: Imaging protocol: Computed tomography of the abdomen and pelvis with contrast. Radiation optimization: All CT scans at this facility use at least one of these dose optimization techniques: automated exposure control; mA and/or kV adjustment per patient size (includes targeted exams where dose is matched to clinical indication); or iterative reconstruction. Contrast material: [id number]; Contrast volume: 100 ml; Contrast route: INTRAVENOUS (IV); COMPARISON: CT ABDOMEN PELVIS W 03/10/2022 11:44 PM FINDINGS: Liver: Normal. No mass. Gallbladder and bile ducts: Normal. No calcified stones. No ductal dilation. Pancreas: Normal. No ductal dilation. Spleen: Normal. No splenomegaly. Adrenal glands: Normal. No mass. Kidneys and ureters: Normal. No hydronephrosis. Stomach and bowel: Unremarkable. No obstruction. No mucosal thickening. Appendix: The appendix is visualized and appears normal. Intraperitoneal space: Unremarkable. No free air. No significant fluid collection. Vasculature: Unremarkable. No abdominal aortic aneurysm. Lymph nodes: Unremarkable. No enlarged lymph nodes. Urinary bladder: Unremarkable as visualized. Reproductive: Unremarkable as visualized. Bones/joints: Unremarkable. No acute fracture. Soft tissues: Areas subcutaneous soft tissue and fluid attenuation bilateral upper gluteal regions presumably represent injection sites. IMPRESSION: No acute abnormality Dictated and Authenticated by: Waylon Pride MD. Ordering:JULIANO Pascual MD
[2024-01-01 00:14] VITALS: BP 108/73; PULSE 79
[2024-01-01] MEDS: Potassium Chloride 20 MEQ TABCR 40 MEQ PO (00:15)
[2024-01-01 00:20] VITALS: BP 108/73; PULSE 81; TEMP 36.2
== END 2024-01-01 00:31 | disposition home or self-care (01) ==
PROVIDERS: Physician Assistant; Emergency Provider Student in an Organized Health Care Education/Training Program; PCP Family Medicine
DX: R10.31 Right lower quadrant pain (principal); E11.9 Type 2 diabetes mellitus without complications; F17.290 Nicotine dependence, other tobacco product, uncomplicated; Z79.85 Long-term (current) use of injectable non-insulin antidiabetic drugs
CPT/HCPCS: 00123; 36415; 80048; 80076; 83690; 84145; 85652; 96360; 99285; 74177; 81003; 81015; 83605; 83735; 85025; 86140; 87480; 87510; 87660; 99284; J3490

== ENCOUNTER 2024-01-09 09:00 | Outpatient (CLI) | payer MEDICAID, SELFPAY ==
[2024-01-09 08:54] LABS: HCT 40.5 % (36.0-46.0); HGB 14.2 g/dL (11.2-15.7); MCH 33.9 pg (27.0-33.0); MCHC 35.1 % (32.0-36.0); MCV 97 fL (80-95); MPV 9.8 fL (8.0-11.0); Platelet Count 337 10^3/uL (130-400); RBC 4.19 10^6/uL (3.93-5.22); RDW 11.5 % (11.7-14.6)
[2024-01-09 09:35] LABS: ALT 31 U/L (14-59); AST 18 U/L (15-37); Albumin 3.7 g/dL (3.4-5.0); Alkaline Phosphatase 80 U/L (46-116); Anion Gap 11.8 mmol/L (3-11); BUN 14 mg/dL (7-18); Bilirubin, Total 0.5 mg/dL (0.2-1.0); CO2 27.2 mmol/L (21.0-32.0); CREATININE 0.8 mg/dL (0.55-1.02); Calcium 9.4 mg/dL (8.5-10.1); Chloride 106 mmol/L (98-107); Glucose 106 mg/dL (74-106); Potassium 3.5 mmol/L (3.5-5.1); Sodium 145 mmol/L (136-145); Total Protein 7.1 g/dL (6.4-8.2)
[2024-01-09 09:53] LABS: VALPROIC ACID 76.6 ug/mL
== END 2024-01-09 09:01 | disposition home or self-care (01) ==
LOC: LBO 09:00
PROVIDERS: PCP Family Medicine; Visit Provider Nurse Practitioner Psychiatric/Mental Health
DX: F25.0 Schizoaffective disorder, bipolar type (principal); Z79.899 Other long term (current) drug therapy; Z51.81 Encounter for therapeutic drug level monitoring
CPT/HCPCS: 36415; 80053; 85027; 80164

== ENCOUNTER → 2024-01-11 03:53 | Outpatient (CLI) | payer MEDICAID, SELFPAY ==
--- NOTE | 2024-01-11 07:45 | DI.MAMMO_ITS ---
Exam(s) MAMMO SCREENING EXAM: MAMMO SCREENING CLINICAL HISTORY: screening,Z12.39 TECHNIQUE: Mammograms were interpreted according to the usual protocol including computer analysis w [employer] CAD system, tomosynthesis and C-view imaging. COMPARISON: [facility] mammo diagnostic BI from 08/31/[address] CHEST PE CTA from 09/17/2021 FINDINGS: The breasts are composed of scattered fibroglandular densities, Breast Density category B. There is significant asymmetry in the size of the breasts with the right larger and with more glandul ar tissue than the left which is mainly fatty. Previously noted left breast implant has been removed . No suspicious masses or suspicious microcalcifications are seen. No skin thickening or abnormal axillary lymph nodes are seen. There has been interval decrease in breast size since the previous exam, consistent with weight loss. IMPRESSION: BI-RADS Category 1, Negative mammogram Yearly screening mammography is recommended. Breast Density - Category B, scattered fibroglandular densities. A negative radiographic report should not delay biopsy if a dominant or clinically suspicious mass is present. Up to ten percent of cancers are not identified on mammography. A negative report may reinforce clinical impression. Adenosis and dense breasts may obscure an underlying neoplasm. False positive reports average 6 to 10%. Patient will receive a letter notifying them of these results.
== END ==
PROVIDERS: PCP Family Medicine; Visit Provider Family Medicine
DX: Z12.31 Encounter for screening mammogram for malignant neoplasm of breast (principal)
CPT/HCPCS: 77063; 77067

== ENCOUNTER 2024-01-17 15:51 | Outpatient (CLI) | payer MEDICAID, SELFPAY ==
[2024-01-17 15:06] LABS: Abs Immature Grans 0.04 10^3/uL (0.0-0.06); Absolute Basophil Count 0.06 10^3/uL (0.0-0.2); Absolute Eosinophil Count 0.05 10^3/uL (0.0-0.7); Absolute Lymphocyte Count 3.03 10^3/uL (1.2-3.4); Absolute Monocyte Count 0.95 10^3/uL (0.1-0.8); Absolute Neutrophil Count 5.99 10^3/uL (1.2-6.7); Basophils % 0.6 %; Eosinophils % 0.5 %; HCT 39.1 % (36.0-46.0); HGB 13.7 g/dL (11.2-15.7); Immature Grans % 0.4 %; Lymphocytes % 29.9 %; MCH 34.3 pg (27.0-33.0); MCV 98 fL (80-95); MPV 9.9 fL (8.0-11.0); Monocytes % 9.4 %; Neutrophils % 59.2 %; Platelet Count 246 10^3/uL (130-400); RBC 3.99 10^6/uL (3.93-5.22); RDW 11.4 % (11.7-14.6); RDW-SD 41.3 fL; WBC 10.12 10^3/uL (4.4-10.8)
[2024-01-17 15:46] LABS: VALPROIC ACID 49.3 ug/mL
[2024-01-17 16:36] LABS: ALT 61 U/L (14-59); AST 21 U/L (15-37); Albumin 3.7 g/dL (3.4-5.0); Alkaline Phosphatase 109 U/L (46-116); Anion Gap 9.7 mmol/L (3-11); BUN 10 mg/dL (7-18); Bilirubin, Total 0.4 mg/dL (0.2-1.0); CO2 26.3 mmol/L (21.0-32.0); Chloride 107 mmol/L (98-107); Estimated GFR 71.69 (mL/min/1.73m2); Glucose 100 mg/dL (74-106); Potassium 4.3 mmol/L (3.5-5.1); Sodium 143 mmol/L (136-145); Total Protein 7.3 g/dL (6.4-8.2)
== END 2024-01-17 15:52 | disposition home or self-care (01) ==
PROVIDERS: PCP Family Medicine; Visit Provider Nurse Practitioner Psychiatric/Mental Health
DX: D53.9 Nutritional anemia, unspecified (principal); E88.09 Other disorders of plasma-protein metabolism, not elsewhere classified; Z79.899 Other long term (current) drug therapy; F25.0 Schizoaffective disorder, bipolar type
CPT/HCPCS: 36415; 80053; 80164; 85025

== ENCOUNTER 2024-02-06 23:19 | Emergency (ER) | payer MEDICAID, SELFPAY ==
[2024-02-06 23:19] VITALS: BP 107/69; PULSE 91; RESP 15; TEMP 36.7; O2SAT 100
--- NOTE | 2024-02-06 23:29 | W.ED.GENAD ---
Discharge Plan Discharge Details Chief Complaint: PsychEval Clinical Impression: Feeling suicidal Primary Care Provider: Antoni Ohara ED Provider: Ankur Huffman Home Meds and New Rx's Prescriptions: No Action Boost High Protein 0.06 gram- 1 kcal/mL liquid 237 ml PO .COMPLEX Qty: 2844 3RF Rx Instructions: 237 mL orally 3/week; naproxen 500 mg tablet 500 mg PO BID PRN (Reason: pain) Qty: 60 0RF semaglutide 2 mg/dose (8 mg/3 mL) pen injector 2 mg subcut QWEEK Qty: 3 3RF Patient Comments: pt not familiar with this medication fludrocortisone 0.1 mg tablet 0.1 mg PO DAILY Qty: 90 3RF lamotrigine 25 mg tablet 50 mg PO BID metoprolol succinate 25 mg tablet extended release 24 hr 25 mg PO BID levothyroxine 75 mcg tablet See Rx Instructions .ROUTE .COMPLEX Qty: 90 3RF Dose Instruction: TAKE 1 TABLET BY MOUTH DAILY Rx Instructions: TAKE 1 TABLET BY MOUTH DAILY fluticasone propionate 50 mcg/actuation spray,suspension 2 spray intranasal DAILY Qty: 16 0RF Rx Instructions: administer into each nostril ofloxacin 0.3 % drops 10 drp otic (ear) BID 14 Days Qty: 10 1RF divalproex 500 mg Tablet,Delayed Release (Dr/Ec) 1,000 mg PO BID topiramate [Topamax] 50 mg tablet 50 mg PO BID Patient Comments: Take 1 tablet by mouth twice a day Aristada 882 mg/3.2 mL suspension,extended rel syring 882 mg IM Q4W Hold Instructions: Pt Stopped/Never Started Patient Comments: not taking Rx Instructions: every 4 weeks HPI General Date/Time Provider Initiated Documentation: 02/06/24 23:20. HPI Narrative: This is a 43-year-old female with a past medical history of insulin controlled diabetes, POTS, schizophrenia, hypothyroidism, who presents today for evaluation of depression and suicidality. Patient is notably limited on what she is willing to discuss with us at this time, however she has been brought in by EMS for suicidality. She states she wants to kill herself by ending her life via jumping off a bridge or slitting her wrist. She states that she has been taking her medications as directed. She denies any drug use. She is not willing to discuss anything else. No other complaints at this time. She denies ingesting any drugs. Related Data Home Medications Medication Instructions Recorded Confirmed aripiprazole lauroxil 882 mg/3.2 882 mg IM Q4W 07/12/21 02/06/24 mL suspension, ext.rel. IM syringe (Aristada) topiramate 50 mg tablet (Topamax) 50 mg PO BID 07/12/21 02/06/24 divalproex 500 mg tablet,delayed 1,000 mg PO BID 09/17/21 02/06/24 release fludrocortisone 0.1 mg tablet 0.1 mg PO DAILY #90 tabs 05/27/23 02/06/24 levothyroxine 75 mcg tablet See Rx Instructions .Route 06/28/23 02/06/24 .COMPLEX #90 tabs food supplemt, lactose-reduced 237 ml PO .COMPLEX #2,844 mL 11/29/23 02/06/24 0.06 gram-1 kcal/mL oral liquid (Boost High Protein) metoprolol succinate 25 mg 25 mg PO BID 12/06/23 02/06/24 tablet,extended release 24 hr naproxen 500 mg tablet 500 mg PO BID PRN pain #60 tabs 12/12/23 02/06/24 semaglutide 2 mg/dose (8 mg/3 mL) 2 mg (0.75 mL) subcut QWEEK #3 mL 12/12/23 02/06/24 subcutaneous pen injector lamotrigine 25 mg tablet 50 mg PO BID 01/10/24 02/06/24 fluticasone propionate 50 2 spray intranasal DAILY #16 grams 01/31/24 02/06/24 mcg/actuation nasal spray,suspension ofloxacin 0.3 % ear drops 10 drp otic (ear) BID 14 days #10 01/31/24 02/06/24 mL Previous Rx's Medication Instructions Recorded fludrocortisone 0.1 mg tablet 0.1 mg PO DAILY #90 tabs 05/27/23 levothyroxine 75 mcg tablet See Rx Instructions .Route 06/28/23 .COMPLEX #90 tabs food supplemt, lactose-reduced 237 ml PO .COMPLEX #2,844 mL 11/29/23 0.06 gram-1 kcal/mL oral liquid (Boost High Protein) naproxen 500 mg tablet 500 mg PO BID PRN pain #60 tabs 12/12/23 semaglutide 2 mg/dose (8 mg/3 mL) 2 mg (0.75 mL) subcut QWEEK #3 mL 12/12/23 subcutaneous pen injector fluticasone propionate 50 2 spray intranasal DAILY #16 grams 01/31/24 mcg/actuation nasal spray,suspension ofloxacin 0.3 % ear drops 10 drp otic (ear) BID 14 days #10 01/31/24 mL Allergies Allergy/AdvReac Type Severity Reaction Status Date / Time codeine Allergy Mild unknown Verified 02/06/24 23:58 General Stated Complaint: PsychEval CECILIA: 2 Review of Systems All systems reviewed & are unremarkable except as noted in HPI and below Exam Narrative Exam Narrative: 1.Const: Well-nourished, Well-developed, appearing stated age 2.Eyes: PERRL, no conjunctival injection, and symmetrical lids. 3.ENT: Atraumatic external nose and ears. Moist MM. Neck: Symmetric, trachea midline, No thyromegaly. 4.CVS: +S1/S2, No murmurs or gallops. Peripheral pulses 2+ and equal in all extremities. Brisk capillary refill in all extremities. 5.RESP: Unlabored respiratory effort. Clear to auscultation bilaterally. No wheezes rales or rhonchi 6.GI: Soft, Nontender/Nondistended, No hepatosplenomegaly. No guarding or rebound. 7.MSK: Normocephalic/Atraumatic, Extremities w/o deformity or ttp No cyanosis or clubbing, Normal movement of all extremities 8.Skin: Warm, Dry. No rashes or lesions. 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 Sensation grossly intact, no focal neurologic deficits. 10.Psych: (AAO) x3. Flat mood and affect Course Vital Signs Vital signs: Vital Signs Temperature 36.7 C 02/06/24 23:19 Pulse 91 H 02/06/24 23:19 Respiratory Rate 15 02/06/24 23:19 Blood Pressure 107/69 02/06/24 23:19 Pulse Oximetry 100 02/06/24 23:19 Temperature 36.7 C 02/06/24 23:19 Temperature Source Tympanic 02/06/24 23:19 Pulse 91 H 02/06/24 23:19 Respiratory Rate 15 02/06/24 23:19 Respiratory Effort Normal 02/06/24 23:21 Blood Pressure 107/69 02/06/24 23:19 Blood Pressure Position Sitting 02/06/24 23:19 Pulse Oximetry 100 02/06/24 23:19 Oxygen Delivery Method Room Air 02/06/24 23:19 Oxygen Flow Rate 0 02/06/24 23:19 Pain Level 0 02/06/24 23:19 Medical Decision Making This is a 43-year-old female with a past medical history of insulin controlled diabetes, POTS, schizophrenia, hypothyroidism, who presents today for evaluation of depression and suicidality. Patient is notably limited on what she is willing to discuss with us at this time, however she has been brought in by EMS for suicidality. She states she wants to kill herself by ending her life via jumping off a bridge or slitting her wrist. She states that she has been taking her medications as directed. She denies any drug use. She is not willing to discuss anything else. No other complaints at this time. She denies ingesting any drugs. Exam demonstrates well-appearing female, flat mood and affect, limited verbal discussion, but no focal neurologic deficits or concerning abnormalities on exam. Symptoms appear consistent with depression versus suicidality. We will start her on one-to-one observation, change into blue scrubs, perform medical screening through laboratory evaluation, monitor closely, reach out to mental health and reassess. Patient wants to be here voluntarily. 5 AM Patient has been medically cleared, daily meds have been placed, medical workup is unremarkable. No evidence of toxic overdose or other significant abnormality. Patient remained stable and has been transition to zone B. Patient has been evaluated by mental health and they have also been told by the patient that the patient wants to kill herself and has demonstrated multiple ways in which she would do this. Additionally she is made clear that she does not want to be admitted to a psychiatric hospital, she does not want inpatient or outpatient care. Because of this the mental health advocates feel that an EE for involuntary placement is indicated. We have filled out this paperwork on our side of things, and they have performed their component. Will have the patient evaluated for inpatient care. Patient will be signed out for disposition. 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 Diabetes mellitus type II, controlled (Acute) POTS (postural orthostatic tachycardia syndrome) (Acute) Plantar warts (Acute) Fatigue (Acute) Pelvic pain (Acute) Orthostatic hypotension (Acute) Chronic diarrhea (Acute) Nonalcoholic steatohepatitis (Acute) Hypothyroid (Chronic) Hirsutism (Acute) Dysfunctional uterine bleeding (Acute) Oligomenorrhea (Acute) Schizophrenia (Chronic) Medical History Uterine mass Non compliance w medication regimen Yeast dermatitis RLS (restless legs syndrome) H/O suicide attempt Schizoaffective disorder Deviated nasal septum Trigeminal neuralgia of left side of face (01/03/18) Type 2 diabetes mellitus History of hypothyroidism Drug overdose, intentional Surgical History S/p breast implant removal Sep 2019 S/P breast implant, left H/O pilonidal cyst S/P foot surgery Ligation of fallopian tube Family History Mother Diabetes Father Heart disease Social History Smoking/Tobacco Use Status: Current every day Tobacco Type: e-cigarettes Quit status: considering quitting Smoking risk assessment performed?: Yes Alcohol Intake: never Drug use: Current Sobriety Substance use type: does not use Adopted: No Caregiver/Support person: No Foster care: No Housing: apartment Number of Children: 2 number of grandchildren: 0 Education Level: high school Do you need help understanding health information?: Never current occupation: Disabled Pets and animals: Yes (1) Pets and animals: cat(s) Do you think of yourself as: straight/heterosexual Current gender identity: female What is your relationship status?: How often do you talk on the phone with friends or family?: decline to answer How often do you get together with friends or relatives?: decline to answer Do you belong to any clubs or organized social groups?: decline to answer Panel score (0-1 are the most socially isolated patients): 0 What type of physical activity do you participate in: walking Frequency: 1-2 times per week Lauren/Gnosticism: Religious Special lauren needs: No Seatbelt use: always Drive intox or ride w/intox maintenance truck driver: No Do you feel safe at home: Yes Do you feel safe in your relationship?: Yes Female Reproductive History Menstrual Age of Menarche: 16 Duration of menses: other control method: permanent sterilization History History 2 Para 2 Hx # Term Pregnancies Multiple births Hx # Pregnancies Ectopic pregnancies AB induced Hx Number of Living Children AB spontaneous Past Pregnancies Del. Date GA/Weeks # Preg Succ Route Wgt Sex Labor Lgth Anesthesia Location Prov Complic 08/30/01 40 No Yes vaginal Female 03/25/02 40 No Yes vaginal Male Delivery Date: 08/30/01 [facility]: 03/25/02 Last Updated by: [facility]imee EncisoFA[facility]
[2024-02-06 23:34] LABS: Abs Immature Grans 0.02 10^3/uL (0.0-0.06); Absolute Basophil Count 0.03 10^3/uL (0.0-0.2); Absolute Eosinophil Count 0.13 10^3/uL (0.0-0.7); Absolute Lymphocyte Count 4.32 10^3/uL (1.2-3.4); Absolute Neutrophil Count 3.03 10^3/uL (1.2-6.7); Basophils % 0.4 %; Eosinophils % 1.6 %; HCT 37.5 % (36.0-46.0); Immature Grans % 0.2 %; Lymphocytes % 53.8 %; MCH 33.9 pg (27.0-33.0); MCHC 34.7 % (32.0-36.0); MCV 98 fL (80-95); MPV 9.1 fL (8.0-11.0); Monocytes % 6.2 %; Neutrophils % 37.8 %; Platelet Count 299 10^3/uL (130-400); RBC 3.84 10^6/uL (3.93-5.22); RDW 11.7 % (11.7-14.6); WBC 8.03 10^3/uL (4.4-10.8)
[2024-02-06 23:58] LABS: ALT 20 U/L (14-59); AST 15 U/L (15-37); Acetaminophen < 2 ug/mL (10-30); Albumin 3.3 g/dL (3.4-5.0); Alkaline Phosphatase 82 U/L (46-116); Anion Gap 7.9 mmol/L (3-11); BUN 15 mg/dL (7-18); Bilirubin, Total 0.4 mg/dL (0.2-1.0); CO2 27.1 mmol/L (21.0-32.0); CREATININE 0.6 mg/dL (0.55-1.02); Calcium 8.2 mg/dL (8.5-10.1); Chloride 106 mmol/L (98-107); Estimated GFR 114.15 (mL/min/1.73m2); Glucose 88 mg/dL (74-106); Potassium 3.4 mmol/L (3.5-5.1); Salicylate < 2.8 mg/dL (<2.8); Sodium 141 mmol/L (136-145); TSH (W/Ref FT4) 0.58 uIU/mL (0.36-3.74); Total Protein 6.5 g/dL (6.4-8.2)
[2024-02-06 23:59] LABS: ETHANOL BLOOD < 3.0 mg/dL (<10)
[2024-02-07] MEDS: Metoprolol 25 MG TAB PO (00:21)
[2024-02-07] MEDS: lamoTRIgine 25 MG TAB 50 MG PO ×3 (00:21→19:29)
[2024-02-07] MEDS: Divalproex 500 MG TABEC 1000 MG PO ×3 (00:22→19:29)
[2024-02-07] MEDS: Topiramate 50 MG TAB PO ×3 (00:29→19:29)
[2024-02-07] MEDS: Levothyroxine 75 MCG TAB PO (06:29)
[2024-02-07 08:10] VITALS: BP 93/64; PULSE 84; RESP 18; TEMP 36.5; O2SAT 97
--- NOTE | 2024-02-07 08:35 | CMSP_ITS ---
Date of service: 02/07/24 Time of Service: 08:35 Care Management Safety Plan Status Status: Involuntary Reason for Wait Reason for Wait: Inpatient Admission Safety Plan Safety Plan: Shaneka presented to [facility] for SI and depression. She is here in involuntary status. The second certification was completed this afternoon and was upheld. [facility] will continue efforts to secure placement. INVOLUNTARY FOR INPATIENT PSYCHIATRIC STABILIZATION.? Patient is appropriate in all interactions since arriving at [facility]; Pt has demonstrated appropriate coping and communication skills, has articulated her needs and concerns and is fully engaged during staff interactions. Safety plan has been established with patient, and care team, to adhere to patient goals, identify restrictions based on behavioral status, address nutrition, and determine allowed personal belongings, tools for hygiene and personal care. Determine level of activity including ambulation, level of supervision, visitors, and determine privileges based on behaviors and level of engagement by pt. SAFETY PLAN: 1. Will remain on suicide precautions, in paper clothes 2. Will remain in Zone B under direct supervision of one-on-one staff at all times provided by [employer]; LUIS MANUEL, DRIVE TESTER plodding machine operator. 3. May have paper cups, plates, finger foods as well as a cardboard spoon with which to eat meals. 4. Follow [facility] Management of the Admitted Behavioral Health Patient policy. 5. Shower available in Zone B without restriction. 6. Personal belongings-soft items permitted at RN discretion. 7. Visitors-none at this time. 8. Activities: soft cart items approved per RN discretion. 9.? Bathroom available in Zone B without restriction. 10. Phone: limited to [facility] cordless phone at RN discretion. Due to INVOLUNTARY status, patient is being held at [facility] by the Department of Mental Health (DM) until 2nd certification by [facility] Psychiatrist can be performed (within 24 hours). Staff will provide de-escalation support (CPI) as needed. If patient wishes to leave [facility], staff will contact [facility] Crisis Screener ([phone]) and Life Skills Consultant ([phone]) as soon as possible. In the event of elopement, notify [facility] Police ([phone]).Patient is currently involuntarily at [facility]. [facility] Frontline [employer] [facility] will continue seeking placement. Please contact the Life Skills Consultant for any needed changes to Safety Plan. Safety plan has been provided to interdepartmental care team. Patient will be transported by dress shoe inspector at time of discharge
--- NOTE | 2024-02-07 08:35 | PDOC.CMSAFE ---
Date of service: 02/07/24 Time of Service: 08:35 Care Management Safety Plan Status Status: Involuntary Reason for Wait Reason for Wait: Inpatient Admission Safety Plan Safety Plan: Shaneka presented to [facility] for SI and depression. She is here in involuntary status. The second certification was completed this afternoon and was upheld. [facility] will continue efforts to secure placement. INVOLUNTARY FOR INPATIENT PSYCHIATRIC STABILIZATION.? Patient is appropriate in all interactions since arriving at [facility]; Pt has demonstrated appropriate coping and communication skills, has articulated her needs and concerns and is fully engaged during staff interactions. Safety plan has been established with patient, and care team, to adhere to patient goals, identify restrictions based on behavioral status, address nutrition, and determine allowed personal belongings, tools for hygiene and personal care. Determine level of activity including ambulation, level of supervision, visitors, and determine privileges based on behaviors and level of engagement by pt. SAFETY PLAN: 1. Will remain on suicide precautions, in paper clothes 2. Will remain in Zone B under direct supervision of one-on-one staff at all times provided by [employer]; LUIS MANUEL, LEAD MECHANIC lunchroom food service supervisor. 3. May have paper cups, plates, finger foods as well as a cardboard spoon with which to eat meals. 4. Follow [facility] Management of the Admitted Behavioral Health Patient policy. 5. Shower available in Zone B without restriction. 6. Personal belongings-soft items permitted at RN discretion. 7. Visitors-none at this time. 8. Activities: soft cart items approved per RN discretion. 9.? Bathroom available in Zone B without restriction. 10. Phone: limited to [facility] cordless phone at RN discretion. Due to INVOLUNTARY status, patient is being held at [facility] by the Department of Mental Health (DM) until 2nd certification by [facility] Psychiatrist can be performed (within 24 hours). Staff will provide de-escalation support (CPI) as needed. If patient wishes to leave [facility], staff will contact [facility] Crisis Screener ([phone]) and Building Specialist ([phone]) as soon as possible. In the event of elopement, notify [facility] Police ([phone]).Patient is currently involuntarily at [facility]. [facility] Frontline Acoustical Tile Drill Press Operator will continue seeking placement. Please contact the Building Specialist for any needed changes to Safety Plan. Safety plan has been provided to interdepartmental care team. Patient will be transported by supervisor whipped topping at time of discharge
[2024-02-07] MEDS: Fludrocortisone 0.1 MG TAB PO (08:49)
[2024-02-07 09:47] LABS: *AMPHETAMINES SCREEN URINE Negative (Negative); *BARBITURATES SCREEN URINE Negative (Negative); *BENZODIAZEPINES SCREEN URINE Negative (Negative); Cannabinoids THC Negative (Negative); Cocaine Screen,Urine Negative (Negative); METHADONE URINE SCREEN Negative (Negative); OPIATES URINE SCREEN Negative (Negative); Tricyclic Antidepressants Negative (Negative)
[2024-02-07 10:22] VITALS: BP 90/61
--- NOTE | 2024-02-07 11:11 | ED.PROG_ITS ---
Date of service: 02/07/24 Time of Service: 11:11 Medical Decision Making I, Corby Chicas, took signout on this patient. In summary 43-year-old female presents with suicidal ideation. Remains in voluntary bed search. No acute events during my shift. Signed out to the oncoming team pending involuntary bed search placement. Medical Records Medical records reviewed: Yes I reviewed the patient's medical records. Quality:[facility] Health Related Social Needs: No Data to Display Sign Out Sign Out Data: Sign Out Comment: History of schizophrenia, presents with suicidal plan of jumping off a bridge, slicing her wrist, or electrocuting herself. Refuses inpatient or outpatient care. Because of this mental health recommends EE which has been completed. Pending psychiatric evaluation and placement. Daily meds have been ordered. Last updated by Ankur Huffman DO at 02/07/24 05:42 Discharge Plan Discharge Details Chief Complaint: PsychEval Clinical Impression: Feeling suicidal Primary Care Provider: Antoni Ohara ED Provider: Corby Chicas Home Meds and New Rx's Prescriptions: No Action Boost High Protein 0.06 gram- 1 kcal/mL liquid 237 ml PO .COMPLEX Qty: 2844 3RF Rx Instructions: 237 mL orally 3/week; naproxen 500 mg tablet 500 mg PO BID PRN (Reason: pain) Qty: 60 0RF semaglutide 2 mg/dose (8 mg/3 mL) pen injector 2 mg subcut QWEEK Qty: 3 3RF Patient Comments: pt not familiar with this medication fludrocortisone 0.1 mg tablet 0.1 mg PO DAILY Qty: 90 3RF lamotrigine 25 mg tablet 50 mg PO BID metoprolol succinate 25 mg tablet extended release 24 hr 25 mg PO BID levothyroxine 75 mcg tablet See Rx Instructions .ROUTE .COMPLEX Qty: 90 3RF Dose Instruction: TAKE 1 TABLET BY MOUTH DAILY Rx Instructions: TAKE 1 TABLET BY MOUTH DAILY fluticasone propionate 50 mcg/actuation spray,suspension 2 spray intranasal DAILY Qty: 16 0RF Rx Instructions: administer into each nostril ofloxacin 0.3 % drops 10 drp otic (ear) BID 14 Days Qty: 10 1RF divalproex 500 mg Tablet,Delayed Release (Dr/Ec) 1,000 mg PO BID topiramate [Topamax] 50 mg tablet 50 mg PO BID Patient Comments: Take 1 tablet by mouth twice a day Aristada 882 mg/3.2 mL suspension,extended rel syring 882 mg IM Q4W Hold Instructions: Pt Stopped/Never Started Patient Comments: not taking Rx Instructions: every 4 weeks
[2024-02-07 15:17] VITALS: BP 90/60
--- NOTE | 2024-02-07 15:40 | PDOC.MHCN_ITS ---
Date of service: 02/07/24 Time of Service: 15:40 PHQ-9 Over the last 2 weeks, how often have you been bothered by any of the following problems? 1. Little interest or pleasure in doing things: more than half the days 2. Feeling down, depressed, or hopeless: nearly every day 3. Trouble falling or staying asleep, or sleeping too much: nearly every day 4. Feeling tired or having little energy: more than half the days 5. Poor appetite or overeating: more than half the days 6. Feeling bad about yourself - or that you are a failure or have let yourself and your family down: nearly every day 7. Trouble concentrating on things, such as reading the newspaper or watching television: not at all 8. Moving or speaking so slowly that other people could have noticed? - Or the opposite - being so fidgety or restless that you have been moving around a lot more than usual: nearly every day 9. Thoughts that you would be better off or of hurting yourself in some way: nearly every day Total score: 21 If you checked off any problems, how difficult have these problems made it for you to do your work, take care of things at home, or get along with other people?: somewhat difficult Source: Developed by Drs. Sid Carter, Elizabeth Solorio, Joel Arias and colleagues, with an educational babatunde from [employer]. Suicide Severity Rate CSSRS Have you wished you were or wished you could go to sleep and not wake up?: Yes Have you actually had any thoughts of killing yourself?: Yes CSSRS2 Have you been thinking about how you might do this?: Yes Have you had these thoughts and had some intention of acting on them?: Yes Have you started to work out or worked out the details of how to kill yourself? Do you intend to carry out this plan?: Yes CSSRS3 Have you ever done anything, started to do anything or prepared to do anything to end your life?: Yes CSSRS4 Was this within the past three months?: Yes Screening Score Total Score: 8 Screening: Positive Mental Health Emergency Note Release HS release signed:: Yes Reason for Visit The client was brought to [facility] on February 06, 2024, on a mental health warrant executed by JENNA [place]. This is her first up to assessments to happen today. This assessment took place at bedside [id number]. The client reported that she is at [facility] because she was having suicidal thoughts with intent and plans. The client reports that she's had an increase and depression and anxiety. She stated, my life triggered it? when asked about how her life triggered it she stated I'm in a situation I can't get out of. The client did not want to discuss further details about what this situation looks like did report that does not involve another person. The client is known to [facility] human services and followed by the [employer] program. Her last hospitalization that could be found and was reported by her was [facility]. This was in 2018. The client reported she was last seen last week. The client reported she does not have a tendency to miss appointments. In the last 2 weeks has the pt presented for ES prior to today?: Unknown Client Information Client is: [employer] Well Housed: Yes Non Suicidal Self Injury Current: No History: yes, Cutting and last one was a week ago per her report. Safety Risk/Harm to Self or Others Current Ideation to Harm Self or Others: Yes to self. Intent: yes, has intent. Plan: yes,has a plan. History of suicide attempt: yes,history of suicide attempt reported. Details of previous suicide attempt: jumped out of cars Risk: Does risk to harm exist?: yes. Access to means: Yes. Types of Means: Other. Counseling provided: Yes Risk: High Risk Duty to warn indicated: No Asssessment/Mental Status Appearance: Disheveled Attitude: Cooperative Behavior: Psychomotor retardation Speech: Soft Affect: Constricted Mood: Depressed Thought process: Unremarkable Hallucinations: No Delusions: No Attention: Unremarkable Perception: Not impaired Orientation: Fully orientated Memory: Impaired in: Remote Insight: Fair Judgement: Poor Neurovegetative Symptoms Sleep: Decrease Appetitie: Decrease Interests: Decrease Energy: No change Libido: Not applicable Substance Use: Do you use nicotine?: Yes Have you used substances in the last 7 days?: No Additional Issues: Assaultive/Threatening Behavior: No Medical Concerns: No Client engaged in active self harm w/weapon: No Threatening to run away: No Child reported abuse/neglect: No Voluntarily presenting for services: No Domestic violence is a concern: No Extreme Psychosis or extreme behavior is present: No Impression The client reports to previous attempts to I buy suicide both that she would report on or via dropping out of moving vehicles. Per chart review it was noted that these attempts were in 2018 and again in 2019. Client engaged all tools, including CSS, however this clinician is not trained therefore, that service could not be offered. The client did ask about voluntary admission when she freddie rned that she was being. If she would continue to seek treatment on a voluntary placement and inform her that she had left a new EE/Warrant would be written to bring her back to the hospital. The client then began to ask about the CARE Bed or just letting her go home. She called this. The clinician went back to her room after our assessment and per the client?s request and she asked, how do I break the involuntary hold? This clinician informed her about her upcoming assessment with a [facility] psychiatrist. The client is a 43-year-old, single, female, who lives in independently in an apartment. The client uses she, her pronouns is disabled and receiving Social Security benefits. All underrepresented categories were honored during this assessment. During this assessment, the client identified natural supports as her parents and one friend. She identified [facility] and her primary care provider at [facility] as her professional support. The client identified her strength listening and helping other people. She denied a history of legal issues as well as medical issues. The client reported that she is taking her meds ?I don't know. When asked about if they were working or not. The client reported a family history of mental illness, however, denied a family history of substance abuse, legal issues, and suicide. Plan/Disposition Recommended Disposition: Hospitalization facilities contacted. Plan: Currently, it is this clinician?s professional opinion that the client still meets in involuntary status. The client issuing port insight and is guarded with all answers to help understand how she can keep herself safe. Should she return to the community. The client is still not interested in outpatient treatment, and therefore at this time it is this clinician?s professional opinion that hospitalization is the least restrictive means to her needs met at this time. Client will be assessed twice daily until placement is found. Person reported agreement to plan: No Reports/communication Outcome discussed with: ED/Personnel
--- NOTE | 2024-02-07 22:45 | ED.PROG_ITS ---
Date of service: 02/07/24 Time of Service: 22:45 Medical Decision Making Patient remains cooperative. Second certification was upheld by the [facility]. I spoke with psychiatry at [facility], Dr. Hale. Discussed the patient's medical and psychiatric conditions. Did make her aware of the soft blood pressures that are chronic in this patient. Recommend holding metoprolol as needed. She is accepted for admission to [facility]. Medical Records Medical records reviewed: Yes I reviewed the patient's medical records. Lab Data Lab results reviewed: Yes I reviewed the patient's lab results. Quality:[facility] Health Related Social Needs: No Data to Display Sign Out Sign Out Data: Sign Out Comment: History of schizophrenia, presents with suicidal plan of jumping off a bridge, slicing her wrist, or electrocuting herself. Refuses inpatient or outpatient care. Because of this mental health recommends EE which has been completed. Pending psychiatric evaluation and placement. Daily meds have been ordered. Last updated by Ankur Huffman DO at 02/07/24 05:42 Sign Out Comment: no acute events during shift. Pending involuntary bedsearch. Low blood pressure but appears chronic in nature historically. No complaints. Holding home metoprolol for now. Last updated by Corby Chicas MD at 02/07/24 15:34 Discharge Plan Disposition Specific Psychiatric Facility: [facility] Condition: Stable Discharge Details Chief Complaint: PsychEval Clinical Impression: Suicidal ideation, Schizoaffective disorder Primary Care Provider: Antoni Ohara ED Provider: Sid Ash Home Meds and New Rx's Prescriptions: No Action Boost High Protein 0.06 gram- 1 kcal/mL liquid 237 ml PO .COMPLEX Qty: 2844 3RF Patient Comments: NOT YET RECEIVED --> PA NEEDED? Rx Instructions: 237 mL orally 3/week; naproxen 500 mg tablet 500 mg PO BID PRN (Reason: pain) Qty: 60 0RF semaglutide 2 mg/dose (8 mg/3 mL) pen injector 2 mg subcut QWEEK Qty: 3 3RF Patient Comments: pt not familiar with this medication fludrocortisone 0.1 mg tablet 0.1 mg PO DAILY Qty: 90 3RF lamotrigine 25 mg tablet 50 mg PO BID metoprolol succinate 25 mg tablet extended release 24 hr 25 mg PO BID levothyroxine 75 mcg tablet See Rx Instructions .ROUTE .COMPLEX Qty: 90 3RF Dose Instruction: TAKE 1 TABLET BY MOUTH DAILY Rx Instructions: TAKE 1 TABLET BY MOUTH DAILY fluticasone propionate 50 mcg/actuation spray,suspension 2 spray intranasal DAILY Qty: 16 0RF Rx Instructions: administer into each nostril ofloxacin 0.3 % drops 10 drp otic (ear) BID 14 Days Qty: 10 1RF divalproex 500 mg Tablet,Delayed Release (Dr/Ec) 1,000 mg PO BID topiramate [Topamax] 50 mg tablet 50 mg PO BID Patient Comments: Take 1 tablet by mouth twice a day Aristada 882 mg/3.2 mL suspension,extended rel syring 882 mg IM Q4W Hold Instructions: Pt Stopped/Never Started Patient Comments: not taking Rx Instructions: every 4 weeks
--- NOTE | 2024-02-08 08:10 | ED.PROG_ITS ---
Date of service: 02/08/24 Time of Service: 08:10 Medical Decision Making Patient on ED status for depression and SI, reportedly is excepted at [facility] and will go at 11:00 today. No acute complaints will continue to monitor until she is transferred. Quality:[facility] Health Related Social Needs: No Data to Display Sign Out Sign Out Data: Sign Out Comment: History of schizophrenia, presents with suicidal plan of jumping off a bridge, slicing her wrist, or electrocuting herself. Refuses inpatient or outpatient care. Because of this mental health recommends EE which has been completed. Pending psychiatric evaluation and placement. Daily meds have been ordered. Last updated by Ankur Huffman DO at 02/07/24 05:42 Sign Out Comment: no acute events during shift. Pending involuntary bedsearch. Low blood pressure but appears chronic in nature historically. No complaints. Holding home metoprolol for now. Last updated by Corby Chicas MD at 02/07/24 15:34 Sign Out Comment: Pending admission at [facility]. Second certification is complete. Last updated by Sid Ash MD at 02/08/24 00:11 Sign Out Comment: Patient stable throughout the night. No interventions needed. Patient to be transferred. . Nurse to nurse complete. Pending transport Last updated by Ankur Huffman DO at 02/08/24 08:02 Discharge Plan Disposition Specific Psychiatric Facility: [facility] Condition: Stable Discharge Details Chief Complaint: PsychEval Clinical Impression: Suicidal ideation, Schizoaffective disorder Primary Care Provider: Antoni Ohara ED Provider: Matthew Chicas Home Meds and New Rx's Prescriptions: No Action Boost High Protein 0.06 gram- 1 kcal/mL liquid 237 ml PO .COMPLEX Qty: 2844 3RF Patient Comments: NOT YET RECEIVED --> PA NEEDED? Rx Instructions: 237 mL orally 3/week; naproxen 500 mg tablet 500 mg PO BID PRN (Reason: pain) Qty: 60 0RF semaglutide 2 mg/dose (8 mg/3 mL) pen injector 2 mg subcut QWEEK Qty: 3 3RF Patient Comments: pt not familiar with this medication fludrocortisone 0.1 mg tablet 0.1 mg PO DAILY Qty: 90 3RF lamotrigine 25 mg tablet 50 mg PO BID metoprolol succinate 25 mg tablet extended release 24 hr 25 mg PO BID levothyroxine 75 mcg tablet See Rx Instructions .ROUTE .COMPLEX Qty: 90 3RF Dose Instruction: TAKE 1 TABLET BY MOUTH DAILY Rx Instructions: TAKE 1 TABLET BY MOUTH DAILY fluticasone propionate 50 mcg/actuation spray,suspension 2 spray intranasal DAILY Qty: 16 0RF Rx Instructions: administer into each nostril ofloxacin 0.3 % drops 10 drp otic (ear) BID 14 Days Qty: 10 1RF divalproex 500 mg Tablet,Delayed Release (Dr/Ec) 1,000 mg PO BID topiramate [Topamax] 50 mg tablet 50 mg PO BID Patient Comments: Take 1 tablet by mouth twice a day Aristada 882 mg/3.2 mL suspension,extended rel syring 882 mg IM Q4W Hold Instructions: Pt Stopped/Never Started Patient Comments: not taking Rx Instructions: every 4 weeks
[2024-02-08 08:12] VITALS: BP 73/52; PULSE 111; RESP 17; TEMP 36.9; O2SAT 99
[2024-02-08] MEDS: Divalproex 500 MG TABEC 1000 MG PO (08:18)
[2024-02-08] MEDS: lamoTRIgine 25 MG TAB 50 MG PO (08:18)
[2024-02-08] MEDS: Fludrocortisone 0.1 MG TAB PO (08:18)
[2024-02-08] MEDS: Topiramate 50 MG TAB PO (08:19)
[2024-02-08] MEDS: Levothyroxine 75 MCG TAB PO (08:28)
--- NOTE | 2024-02-08 10:55 | CMDISCH_ITS ---
Date of service: 02/08/24 Time of Service: 10:56 LACE Index Scoring Tool Questions: Length of Stay (in days): 2 Was the patient admitted via the E.D.?: Yes E.D. Visits: 8 Answers: Total Score: 9 Risk of Readmission: Low Risk Care Management Discharge Plan Reason for Hospitalization: EE, SI Discharge Plan: Transfer to inpatient psych facility. EE/[place] systems superintendent @ 1130. Patient/Family Education Needs: Review transfer instructions and plan. discuss ask me three. Services Needed at Discharge: Psychiatric Facility ([place]) and Transportation SDOH Health Related Social Needs: No Data to Display
[2024-02-08 11:44] VITALS: BP 94/62
== END 2024-02-08 11:48 ==
PROVIDERS: Student in an Organized Health Care Education/Training Program; Emergency Provider Emergency Medicine; PCP Family Medicine
DX: R45.851 Suicidal ideations (principal); F25.9 Schizoaffective disorder, unspecified
CPT/HCPCS: 00123; 36415; 80053; 80307; 96127; 99285; H0046; 80320; 80329; 84443; 85025

== ENCOUNTER → 2024-03-15 00:10 | Outpatient (CLI) | payer MEDICAID, SELFPAY ==
--- OUTSIDE RECORDS SUMMARY | 2024-03-15 00:12 | XMS_ITS ---
Author Name Unknown Address [address] [place] [address] [phone] Phone Organization Unknown Address [address] [place] [address] [phone] Phone Care Team Providers Care Rosin Barrel Filler Name Role Phone AMARA WARE Registered Nurse Barak Gillespie Attending Unavailable JAVON WILLSON Primary Unavailable UNLISTED PROVIDER - REQUESTED Xhandoff Un available Results URINALYSIS WITH REFLEX CULT IF POSITIVE* - Collect Date/Time: 08/04/2022 11:09 [facility] ID: [id number] [address] [place] [address], [address] LOINC: 31196-8 Test Value Unit Reference Range Code Code System Flag COLLECTION MODE: CLEAN CATCH 86548-4 LOINC Color YELLOW yellow 5778-6 LOINC Appearance CLEAR clear 5767-9 LOINC Glucose urine >=1000 negative mg/dl 70473-4 LOINC A Bilirubin NEGATIVE negative 5770-3 LOINC Ketones 15 negative mg/dl 2514-8 LOINC A Spec gravity 1.010 1.003 - 1.030 5811-5 LOINC pH urine 6.5 5.0 - 7.0 2756-5 LOINC Protein NEGATIVE negative mg/dl 72047-8 LOINC Urobilinogen 0.2 <or= 1 EU/dl 14065-8 LOINC Nitrite. NEGATIVE negative 5802-4 LOINC Blood NEGATIVE negative 5794-3 LOINC Leukocytes. NEGATIVE negative MICROSCOPIC NOT INDICAT DRUG SCN 13 PANEL (MEDTOX)* - Collect Date/Time: 08/04/2022 11:09 [facility] ID: [id number] - [id number] [address] [place], [place], [id number] LOINC: 93515-5 Test Value Unit Reference Range Code Code System Flag CANNABINOIDS NEGATIVE Cutoff = 50 ng/mL 98517-4 LOINC PHENCYCLIDINE NEGATIVE Cutoff = 25 ng/mL 57816-6 LOINC COCAINE NEGATIVE Cutoff = 150 ng/mL 71062-7 LOINC METHAMPHETAMINES NEGATIVE Cutoff = 50 0 ng/mL 35955-0 LOINC OPIATES NEGATIVE Cutoff = 100 ng/mL 71198-0 LOINC AMPHETAMINES NEGATIVE Cutoff = 500 ng/mL 99585-9 LOINC BENZODIAZEPINES NEGATIVE Cutoff = 150 ng/mL 70274-6 LOINC TRICYCLIC ANTIDEP NEGATIVE Cutoff = 3 00 ng/mL 3533-7 LOINC METHADONE NEGATIVE Cutoff = 200 ng/mL 23378-3 LOINC BARBITURATES NEGATIVE Cutoff = 200 ng/mL 79299-4 LOINC OXYCODONE NEGATIVE Cutoff = 100 ng/mL 52508-2 LOINC PROPOXYPHENE NEGATIVE Cutoff = 300 ng/mL 84107-4 LOINC BUPRENORPHINE NEGATIVE Cutoff = 10 mg/mL 3414-0 LOINC GLUCOSE FINGER/HEEL CAPILLAR Y - Collect Date/Time: 08/04/2022 10:44 [facility] ID: [id number] [address] [place] [address], [id number] LOINC: 58277-4 Test Value Unit Reference Range Code Code System Flag GLUCOSE CAP 328 mg/dL L=70 H=116 H GLUCOSE FINGER/HEEL CAPILLAR Y - Collect Date/Time: 08/04/2022 10:18 [facility] ID: [id number] [address] [place] [address], [id number] LOINC: 28147-0 Test Value Unit Reference Range Code Code System Flag GLUCOSE CAP 266 mg/dL L=70 H=116 H VALPROIC ACID (DEPAKENE)* - Collect Date/Time: 08/04/2022 09:50 [facility] ID: [id number] - [id number] [address] [place] [address], [address] LOINC: 4086-5 Test Value Unit Reference Range Code Code System Flag VALPROATE 99 ug/mL L=50 H=100 ORDER VENOUS BLOOD GAS* - Co llect Date/Time: 08/04/2022 09:50 [facility] ID: [id number] - [id number] [address] [place] [address], [id number] LOINC: Test Value Unit Reference Range Code Code System Flag Specimen type: VENOUS pH (venous) 7.35 L=7.38 H=7.46 2746-6 LOINC L PCO2 (venous) 42.0 mm Hg L=41.0 H=51.0 2703-7 LOINC PO2 (venous) 152 mm Hg L=30 H=50 2705-2 LOINC H HCO3 23 mmol/L L=22 H=26 1960-4 LOINC TCO2 (venous) 25 mmol/L L=22 H=28 3533-7 LOINC BASE EXCESS (venous) -2 mmol/L L=-2 H=3 3097-3 LOINC Assist vent. Resp. Rate /min. Temp. ACETAMINOPHEN* - Collect Carlos e/Time: 08/04/2022 09:50 [facility] ID: [id number] - [id number] [address] [place] [address], [address] LOINC: 3298-7 Test Value Unit Reference Range Code Code System Flag ACETAMINOPHEN < 2.0 ug/mL L=10.0 H=20.0 3298-7 LOINC L SALICYLATE SERUM* - Collect Date/Time: 08/04/2022 09:50 [facility] ID: [id number] [address] [place] [address], [address] LOINC: 4024-6 Test Value Unit Reference Range Code Code System Flag SALICYLATE 3.5 mg/dL L=15.0 H=30.0 4024-6 LOINC L TROPONIN HIGH SENSITIVITY* - Collect Date/Time: 08/04/2022 09:50 [facility] ID: [id number] - [id number] [address] [place] [address], [address] LOINC: 17508-8 Test Value Unit Reference Range Code Code System Flag TROPONIN HS 5.6 pg/mL L=0.0 H=60.4 Specimen seq. ADM. TEST QUAL (SERUM) - Collect Date/Time: 08/04/2022 09:50 [facility] ID: [id number] - [id number] [address] [place] [address], [address] LOINC: 8-8 Test Value Unit Reference Range Code Code System Flag TEST NEGATIVE 2105-3 LOINC MAGNESIUM SERUM* - Collect D ate/Time: 08/04/2022 09:50 [facility] ID: [id number] [address] [place] [address], [address] LOINC: 64949-6 Test Value Unit Reference Range Code Code System Flag MAGNESIUM 1.9 mg/dL L=1.8 H=2.4 08469-1 LOINC CBC W/ DIFFERENTIAL* - Colle ct Date/Time: 08/04/2022 09:50 [facility] ID: [id number] [address] [place] [address], [address] LOINC: 11168-3 Test Value Unit Reference Range Code Code System Flag WBC 6.93 th/cmm L=5.00 H=10.00 6690-2 LOINC NEUT % 31.5 % L=40.0 H=80.0 L LYMPH % 56.4 % L=10.0 H=50.0 H MONO % 9.1 % L=2.0 H=12.0 87312-8 LOINC EOS % 1.9 % L=0.0 H=8.0 BASO % 0.4 % L=0.0 H=3.0 IG % 0.7 % L=0.0 H=1.1 2514-8 LOINC NRBC % 0.0 % L=0.0 H=0.0 11429-9 LOINC NEUT abs count 2.2 th/cmm L=1.6 H=8.4 751-8 LOINC LYMPH abs count 3.9 th/cmm L=1.5 H=4.0 731-0 LOINC MONO abs count 0.6 th/cmm L=0.2 H=1.0 742-7 LOINC EOS abs count 0.1 th/cmm L=0.0 H=0.5 711-2 LOINC BASO abs count 0.0 th/cmm L=0.0 H=0.2 704-7 LOINC IG abs count 0.1 th/cmm L=0.0 H=0.1 31454-0 LOINC NRBC abs count 0.0 mil/cmm L=0.0 H=0.0 73600-6 LOINC RBC 4.46 mil/cmm L=3.90 H=5.40 789-8 LOINC HEMOGLOBIN 15.0 gm/dL L=12.0 H=16.0 718-7 LOINC HEMATOCRIT 43 % L=37 H=47 4544-3 LOINC MCV 96 fL L=82 H=92 787-2 LOINC H MCH 33.6 pg L=27.0 H=31.0 785-6 LOINC H MCHC 35.0 % L=32.0 H=36.0 786-4 LOINC RDW-SD 43.5 fL L=39.0 H=49.0 788-0 LOINC PLATELET COUNT 248 th/cmm L=150 H=450 777-3 LOINC COMPREHENSIVE METABOLIC PANE L (CMP) - Collect Date/Time: 08/04/2022 09:50 [facility] ID: [id number] - [id number] [address] [place], [place], [address] LOINC: 08355-1 Test Value Unit Reference Range Code Code System Flag GLUCOSE 380 mg/dL L=70 H=116 2345-7 LOINC H BUN 11 mg/dL L=6 H=25 3094-0 LOINC CREATININE 0.64 mg/dL L=0.51 H=0.95 2160-0 LOINC SODIUM SERUM 137 mmol/L L=136 H=145 2951-2 LOINC POTASSIUM SERUM 3.9 mmol/L L=3.4 H=5.2 2823-3 LOINC CHLORIDE SERUM 101 mmol/L L=96 H=110 2075-0 LOINC CARBON DIOXIDE (CO2) 23 mmol/L L=22 H=34 2028-9 LOINC ANION GAP 12.6 mmol/L 63286-7 LOINC CALCIUM SERUM 9.3 mg/dL L=8.2 H=10.2 67096-1 LOINC BILIRUBIN TOTAL 0.2 mg/dL L=0.0 H=1.3 1975-2 LOINC ALK. PHOS. 226 U/L L=46 H=116 6768-6 LOINC H SGOT (AST) 27 U/L L=15 H=37 1920-8 LOINC SGPT (ALT) 53 U/L L=12 H=78 1742-6 LOINC TOTAL PROTEIN 7.9 gm/dL L=6.0 H=8.0 2885-2 LOINC ALBUMIN 3.4 gm/dL L=3.4 H=5.0 1751-7 LOINC AGE 41 years eGFR (non-Afr.Amer.) 102 mL/min 80173-9 LOINC eGFR (Afr-Irish) > 120 mL/min 41451-2 LOINC ALCOHOL (ETHANOL)* - Collect Date/Time: 08/04/2022 09:50 [facility] ID: [id number] [address] [place] [address], [facility] LOINC: 86937-0 Test Value Unit Reference Range Code Code System Flag ALCOHOL (ETHANOL) < 3 mg/dL 68333-[address] HEAD WO CONTRAST - Comple jenna: 08/04/2022 11:24 LOINC: [facility] [place], [place] [address] PACS MEDICAL TRANSCRIPTION REPORT Patient Name: BISMARK LANDON MRN: Sex: : Age: [id number] F 1980 41 Account: Accession: Admit: StayType: [id number] 08/04/2022 E/R Ordered: Order ID: Submitted: Ordering Provider: 08/04/2022 10:25 [id number] JENNY RUBIO Completed: Technologist: Resulted: 08/04/2022 11:24 BMM 08/04/2022 11:26 Study Description: CT HEAD WO CONTRAST Reason For Study: Altered Mental Status FINDINGS The ventricular system is normal in appearance. No evidence of acute intracranial hemorrhage, mass effect, or midline shift. The orbital structures are unremarkable. The temporal bone structures appear intact. Calvarium: Normal. Visualized Paranasal sinuses/Mastoids: There is mucoperiosteal thickening of right maxillary antrum consistent with chronic sinusitis. Otherwise paranasal sinuses and mastoid air cells are clear. IMPRESSION No evidence of acute intracranial process. Report Digitally Signed by Alan Nix on 08/04/2022 11:26 AM EST Social History Type Status Start Date End Date Code Code Syst em Sex Female Vital Signs Vital Sign Value Unit [place] Value [place] Unit Date/Time Recent/Initial? Code Code System Body Mass Index 30.65 kg/m2 08/04/2022 11:32 Initial 02263 -5 LOINC Systolic Blood Pressure 122 mm[Hg] 08/04/2022 16:03 Most Recent 8480- 6 LOINC Diastolic Blood Pressure 74 mm[Hg] 08/04/2022 16:03 Most Recent 8462- 4 LOINC Systolic Blood Pressure 140 mm[Hg] 08/04/2022 11:32 Initial 8480- 6 LOINC Diastolic Blood Pressure 96 mm[Hg] 08/04/2022 11:32 Initial 8462- 4 LOINC Body Surface Area 1.87 m2 08/04/2022 11:32 Initial 3140- 1 LOINC Height 160.020 0 cm 63.00 in 08/04/2022 11:32 Initial 8302- 2 LOINC O2 Saturation 99 % 2021 16:03 Most Recent 98860 -5 LOINC O2 Saturation 100 % 2021 11:32 Initial 80852 -5 LOINC Inhaled Oxygen Flow Rate 6.00 L/min 08/04/2022 11:32 Initial 3151- 8 LOINC Pulse 88.0 /min 08/04/2022 16:03 Most Recent 8867- 4 LOINC Pulse 84.0 /min 08/04/2022 11:32 Initial 8867- 4 LOINC Respiration 16 /min 08/04/20 16:03 Most Recent 9279- 1 LOINC Respiration 16 /min 08/04/20 11:32 Initial 9279- 1 LOINC Temperature 36.6 Christa 97.9 F 08/04/20 16:03 Most Recent 8310- 5 LOINC Temperature 36.3 Christa 97.3 F 08/04/20 11:32 Initial 8310- 5 LOINC Weight 78.47 kg 173.00 lbs 08/04/2022 11:32 Initial 77788 -7 [facility] Hospital Discharge Instructions Should you have any questions prior to discharge, please contact a member of your healthcare team. If you have left the hospital and have any questions, please contact your primary care physician. Reason For Referral No Data Found Allergies and Adverse Reactions Allergy Substance Reaction Severity Start Date Concern Status Co de Code System CODEINE Active Plan of Treatment No Data Found Encounters Encounter Diagnosis Start Date Code Code Sys tem Epilepsy, unspecified, not i ntractable, without status epilepticus 08/04/2022 SNOMED-CT Personal Care Team Section Performer Name Performer Role Active Date Inactive Da ac
[2024-03-15] MEDS: Barium Sulfate 2% W/V-Creamy Vanilla Smoothie 450 ML BTL PO ×2 (08:25→08:26)
[2024-03-15] MEDS: Normal Saline - Diluent 50 ML VIAL IJ (10:14)
[2024-03-15] MEDS: Omnipaque 350 MG/ML 100 ML BTL IJ (10:18)
--- NOTE | 2024-03-15 11:01 | DI.CT_ITS ---
Exam(s) CT CHEST/ABD/PEL W EXAM: CT CHEST/ABD/PEL W CLINICAL HISTORY: recent falls, RUQ abd pain, R10.9, R rib pain. TECHNIQUE: Imaging Protocol: Axial computed tomography images with coronal and sagittal reformatted images were created and reviewed CONTRAST MATERIAL: Intravenous: Omnipaque 350 Contrast volume:100 ml Oral: yes / no COMPARISON: CT CT ABDOMEN PELVIS W from 03/10/[address] ABDOMEN PELVIS W from 12/31/2023 FINDINGS: CHEST: Tracheobronchial tree: Patent. Pulmonary parenchyma: No consolidation or dominant measurable mass. Pleura: No effusion or pneumothorax. Mediastinum: Within normal limits. Aorta: Thoracic portion non-dilated. Pulmonary arteries: No visible emboli. Heart: Normal size. No pericardial effusion. Bones: Unremarkable for age. No lytic or blastic lesions.No compression fractures. Old or subacute right lower anterior rib fractures. Soft tissues: Left mastectomy. Multiple rounded densities are noted in the subcutaneous fat in the b ilateral buttock regions, likely representing injection granulomas. ABDOMEN and PELVIS: Liver: Normal density. No measurable mass. Gallbladder and biliary tract: No evidence of stones or wall thickening. No biliary dilatation. Pancreas: Normal density, no abnormal calcifications or inflammatory process. Spleen: Normal. Kidneys: Normal size, contour and axis. No radiodense stones. No obstructive uropathy. No suspicious masses seen. Adrenal glands: No masses seen. Aorta: Abdominal portion non-dilated. Lymph nodes: Within normal limits. Soft tissues: Unremarkable. Bladder: Unremarkable. Bowel: No obstruction or bowel wall thickening. Appendix normal. Peritoneal cavity: No ascites. No focal collection. No mesenteric inflammatory response. No free ai r. Bones: Unremarkable for age. No evidence of spine or pelvic fracture. Follicle right ovary. Reproductive organs: Within normal limits. IMPRESSION: No acute abnormality in the chest, abdomen or pelvis. Subacute to old right lower lateral rib frac tures. RADIATION DOSE DELIVERED: Total DLP DATA REPOSITORY: All CT scans at this facility are submitted to the National Radiology Data Registry (NRDR) Dose Index Registry (DIR) with the [employer] (ACR). RADIATION OPTIMIZATION: All CT scans at this facility use at least one of these dose optimization te chniques: automated exposure control; mA and/or kV adjustment per patient size (includes targeted exa ms where dose is matched to clinical indication); or iterative reconstruction.
== END ==
PROVIDERS: PCP Family Medicine; Visit Provider Nurse Practitioner Family
DX: R10.9 Unspecified abdominal pain (principal)
CPT/HCPCS: 74177; 71260; J3490

== ENCOUNTER 2024-05-22 19:16 | Emergency (ER) | payer MEDICAID, SELFPAY ==
[2024-05-22 19:28] VITALS: BP 134/86; PULSE 116; RESP 18; TEMP 36.7; O2SAT 98
--- OUTSIDE RECORDS SUMMARY | 2024-05-22 19:41 | XMS_ITS ---
Author Organization Unknown Address [address] [place] [phone] Phone Care Team Providers Care Administrative Coordinator Name Role Phone AMARA WARE Registered Nurse UnavailLizeth Gillespie Attending Unavailable JAVON WILLSON Primary Unavailable UNLISTED PROVIDER - REQUESTED Xhandoff Un available Results URINALYSIS WITH REFLEX CULT IF POSITIVE* - Collect Date/Time: 08/04/2022 11:09 [facility] ID: [id number] [address] [place], [place], [address] LOINC: 82472-0 Test Value Unit Reference Range Code Code System Flag COLLECTION MODE: CLEAN CATCH 97150-3 LOINC Color YELLOW yellow 5778-6 LOINC Appearance CLEAR clear 5767-9 LOINC Glucose urine >=1000 negative mg/dl 48634-0 LOINC A Bilirubin NEGATIVE negative 5770-3 LOINC Ketones 15 negative mg/dl 2514-8 LOINC A Spec gravity 1.010 1.003 - 1.030 5811-5 LOINC pH urine 6.5 5.0 - 7.0 2756-5 LOINC Protein NEGATIVE negative mg/dl 74082-3 LOINC Urobilinogen 0.2 <or= 1 EU/dl 71367-6 LOINC Nitrite. NEGATIVE negative 5802-4 LOINC Blood NEGATIVE negative 5794-3 LOINC Leukocytes. NEGATIVE negative MICROSCOPIC NOT INDICAT DRUG SCN 13 PANEL (MEDTOX)* - Collect Date/Time: 08/04/2022 11:09 [facility] ID: [id number] [address] [place] [address], [id number] LOINC: 23594-9 Test Value Unit Reference Range Code Code System Flag CANNABINOIDS NEGATIVE Cutoff = 50 ng/mL 01003-8 LOINC PHENCYCLIDINE NEGATIVE Cutoff = 25 ng/mL 03382-6 LOINC COCAINE NEGATIVE Cutoff = 150 ng/mL 76841-5 LOINC METHAMPHETAMINES NEGATIVE Cutoff = 50 0 ng/mL 82444-5 LOINC OPIATES NEGATIVE Cutoff = 100 ng/mL 79581-3 LOINC AMPHETAMINES NEGATIVE Cutoff = 500 ng/mL 07348-3 LOINC BENZODIAZEPINES NEGATIVE Cutoff = 150 ng/mL 32509-2 LOINC TRICYCLIC ANTIDEP NEGATIVE Cutoff = 3 00 ng/mL 3533-7 LOINC METHADONE NEGATIVE Cutoff = 200 ng/mL 13407-4 LOINC BARBITURATES NEGATIVE Cutoff = 200 ng/mL 86966-1 LOINC OXYCODONE NEGATIVE Cutoff = 100 ng/mL 15594-8 INC PROPOXYPHENE NEGATIVE Cutoff = 300 ng/mL 32577-2 INC BUPRENORPHINE NEGATIVE Cutoff = 10 mg/mL 3414-0 [facility] GLUCOSE FINGER/HEEL CAPILLAR Y - Collect Date/Time: 08/04/2022 10:44 [facility] ID: [id number] - [id number] [address] [place] [address], [id number] LOINC: 16130-5 Test Value Unit Reference Range Code Code System Flag GLUCOSE CAP 328 mg/dL L=70 H=116 H GLUCOSE FINGER/HEEL CAPILLAR Y - Collect Date/Time: 08/04/2022 10:18 [facility] ID: [id number] [address] [place] [address], [id number] LOINC: 05668-5 Test Value Unit Reference Range Code Code System Flag GLUCOSE CAP 266 mg/dL L=70 H=116 H VALPROIC ACID (DEPAKENE)* - Collect Date/Time: 08/04/2022 09:50 [facility] ID: [id number] - [id number] [address] [place] [address], [address] LOINC: 4086-5 Test Value Unit Reference Range Code Code System Flag VALPROATE 99 ug/mL L=50 H=100 ORDER VENOUS BLOOD GAS* - Co llect Date/Time: 08/04/2022 09:50 [facility] ID: [id number] - [id number] [address] [place], [place], [id number] LOINC: Test Value Unit Reference Range Code [...] ACETAMINOPHEN* - Collect Carlos e/Time: 08/04/2022 09:50 [facility] ID: [id number] [address] [place] [address], [address] LOINC: 3298-7 Test Value Unit Reference Range Code Code System Flag ACETAMINOPHEN < 2.0 ug/mL L=10.0 H=20.0 3298-7 LOINC L SALICYLATE SERUM* - Collect Date/Time: 08/04/2022 09:50 [facility] ID: [id number] [address] [place] [address], [address] LOINC: 4024-6 Test Value Unit Reference Range Code Code System Flag SALICYLATE 3.5 mg/dL L=15.0 H=30.0 4024-6 LOINC L TROPONIN HIGH SENSITIVITY* - Collect Date/Time: 08/04/2022 09:50 [facility] ID: [id number] [address] [place] [address], [address] LOINC: 31706-3 Test Value Unit Reference Range Code Code System Flag TROPONIN HS 5.6 pg/mL L=0.0 H=60.4 Specimen seq. ADM. TEST QUAL (SERUM) - Collect Date/Time: 08/04/2022 09:50 [facility] ID: [id number] - [id number] [address] [place] [address], [address] LOINC: 2118-8 Test Value Unit Reference Range Code Code System Flag TEST NEGATIVE 6-3 LOINC MAGNESIUM SERUM* - Collect D ate/Time: 08/04/2022 09:50 [facility] ID: [id number] [address] [place] [address], [address] LOINC: 10392-0 Test Value Unit Reference Range Code Code System Flag MAGNESIUM 1.9 mg/dL L=1.8 H=2.4 86224-5 LOINC CBC W/ DIFFERENTIAL* - Colle ct Date/Time: 08/04/2022 09:50 [facility] ID: [id number] [address] [place] [address], [address] LOINC: 66603-3 Test Value Unit Reference Range Code Code System Flag WBC 6.93 th/cmm L=5.00 H=10.00 6690-2 LOINC NEUT % 31.5 % L=40.0 H=80.0 L LYMPH % 56.4 % L=10.0 H=50.0 H MONO % 9.1 % L=2.0 H=12.0 62113-1 LOINC EOS % 1.9 % L=0.0 H=8.0 BASO % 0.4 % L=0.0 H=3.0 IG % 0.7 % L=0.0 H=1.1 2514-8 LOINC NRBC % 0.0 % L=0.0 H=0.0 66073-4 LOINC NEUT abs count 2.2 th/cmm L=1.6 H=8.4 751-8 LOINC LYMPH abs count 3.9 th/cmm L=1.5 H=4.0 731-0 LOINC MONO abs count 0.6 th/cmm L=0.2 H=1.0 742-7 LOINC EOS abs count 0.1 th/cmm L=0.0 H=0.5 711-2 LOINC BASO abs count 0.0 th/cmm L=0.0 H=0.2 704-7 LOINC IG abs count 0.1 th/cmm L=0.0 H=0.1 12822-4 LOINC NRBC abs count 0.0 mil/cmm L=0.0 H=0.0 93447-4 LOINC RBC 4.46 mil/cmm L=3.90 H=5.40 789-8 [...] L (CMP) - Collect Date/Time: 08/04/2022 09:50 [facility] ID: [id number] [address] [place] [address], [address] LOINC: 37785-7 Test Value Unit Reference Range Code Code [...] H=34 2028-9 LOINC ANION GAP 12.6 mmol/L 81303-4 LOINC CALCIUM SERUM 9.3 mg/dL L=8.2 H=10.2 46716-3 LOINC BILIRUBIN TOTAL 0.2 mg/dL L=0.0 H=1.3 1975-2 LOINC ALK. PHOS. 226 U/L L=46 H=116 6768-6 LOINC H SGOT (AST) 27 U/L L=15 H=37 1920-8 LOINC SGPT (ALT) 53 U/L L=12 H=78 1742-6 LOINC TOTAL PROTEIN 7.9 gm/dL L=6.0 H=8.0 2885-2 LOINC ALBUMIN 3.4 gm/dL L=3.4 H=5.0 1751-7 LOINC AGE 41 years eGFR (non-Afr.Amer.) 102 mL/min 98750-4 LOINC eGFR (Afr-Guyanese) > 120 mL/min 53661-7 LOINC ALCOHOL (ETHANOL)* - Collect Date/Time: 08/04/2022 09:50 [facility] ID: [id number] [address] [place] [address], [address] LOINC: 38879-7 Test Value Unit Reference Range Code Code System Flag ALCOHOL (ETHANOL) < 3 mg/dL 77541-[address] HEAD WO CONTRAST - Comple jenna: 08/04/2022 11:24 LOINC: [facility] [place], [place] [address] PACS FILM INSPECTOR REPORT Patient Name: BISMARK LANDON MRN: Sex: : Age: [id number] F 1980 41 Account: Accession: Admit: StayType: [id number] 08/04/2022 E/R Ordered: Order ID: Submitted: Ordering Provider: 08/04/2022 10:25 [id number] JENNY RUBIO Completed: Technologist: Resulted: 08/04/2022 11:24 [...] Female Vital Signs Vital Sign Value Unit War[place] Value Warrick Unit Date/Time Recent/Initial? Code Code System Body Mass Index 30.65 kg/m2 08/04/2022 11:32 Initial 54902 -5 LOINC Systolic Blood Pressure 122 mm[Hg] [...] Saturation 99 % 2021 16:03 Most Recent 00366 -5 LOINC O2 Saturation 100 % 2021 11:32 Initial 27176 -5 LOINC Inhaled Oxygen Flow Rate 6.00 [...] 78.47 kg 173.00 lbs 08/04/2022 11:32 Initial 37914 -7 LOINC Hospital Discharge Instructions Should you have any [...] Performer Name Performer Role Active Date Inactive Juanito shen
--- OUTSIDE RECORDS SUMMARY | 2024-05-22 19:42 | XMS_ITS | Encounter Summary ---
Author Organization [facility] [place] [address] Care Team Providers Care Barometers Calibrator Name Role Phone Lidia Benson APRN Primary Care Provider + [phone] Encounter Details Date Type Department Care Team (Late st Contact Info) Description 07/18/2018 [facility] [place] [phone] Toan Mena Social History Tobacco Use Types Packs/Day Years Used Date Smoking Tobacco: Some Days Cigarettes 0.5 1 Smokeless Tobacco: Never Alcohol Use Standard Drinks/Week Comments No 0 (1 standard drink = 0.6 oz pur e alcohol) Sex and Gender Information Value Date Recorded Sex Assigned at Not on file Gender Identity Not on file Sexual Orientation Not on file documented as of this encounter Miscellaneous Notes * Telephone Encounter - Toan Mena - 07/18/2018 8:44 AM EST Pt called back and wants to cancel the scheduled procedures for 08/01, as well as the f/u appointments in GI with Angela and Laci. Tried talking her into coming in - she says she's doing fine right now- and told her we wouldn't be able to reschedule her until next year. She understood. I told her all appointments had been cancelled. documented in this encounter Plan of Treatment Not on file documented as of this encounter Visit Diagnoses Not on filedocumented in this encounter Care Teams Barometers Calibrator Relationship Specialty Start Date End Date Lidia Benson APRN [address] [place] [address] PCP - General Family Medicine 02/28/18 08/23/19 documented as of this encounter
--- OUTSIDE RECORDS SUMMARY | 2024-05-22 19:42 | XMS_ITS | Encounter Summary ---
Author Organization [facility] [place] [address] Care Team Providers Care Ring Attacher Name Role Phone None Primary Care Provider Unavailabl e Encounter Details Date Type Department Care Team (Late st Contact Info) Description 03/03/2017 [place] [address] Deshaun Chapman MD [facility] [place] [address] Social History Tobacco Use Types Packs/Day Years [...] as of this encounter Miscellaneous Notes * Addendum Note - Deshaun Chapman MD - 03/03/2017 4:01 PM EDTAddended by: DESHAUN CHAPMAN on: 03/03/2017 04:01 PM Modules accepted: Orders documented in this encounter Plan of Treatment Not on file documented as of this encounter Visit Diagnoses Not on filedocumented in this encounter Care Teams Ring Attacher Relationship Specialty Start Date End Date None None PCP - General 12/09/16 02/27/18 documented as of this encounter
--- OUTSIDE RECORDS SUMMARY | 2024-05-22 19:42 | XMS_ITS | Encounter Summary ---
Author Organization [facility] [place] [address] Care Team Providers Care Bender Helper Name Role Phone Lidia Benson APRN Primary Care Provider + [phone] Encounter Details Date Type Department Care Team (Late st Contact Info) Description 06/20/2018 Telephone Gastroenterology at [facility] [place] [phone] Shanon Galindo Social History Tobacco Use Types Packs/Day Years [...] encounter Miscellaneous Notes * Telephone Encounter - Shanon Colon - 06/20/2018 10:51 AM EDT Call made to patient to schedule 60min follow up with Jimmy Calvillo for abnormal LFTs. Scheduled for 06/28. documented in this encounter Plan of Treatment Not on file documented as of this encounter Visit Diagnoses Not on filedocumented in this encounter Care Teams Bender Helper Relationship Specialty Start Date End Date Lidia Benson APRN [address] [place], [place] [id number] PCP - General Family Medicine 02/28/18 08/23/19 documented as of this encounter
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
--- OUTSIDE RECORDS SUMMARY | 2024-05-22 19:42 | XMS_ITS | Encounter Summary ---
Author Organization [facility] [place] [address] Care Team Providers Care Forensic Investigator Name Role Phone KelleyLidia SONG Primary Care Provider + [phone] Encounter Details Date Type Department Care Team (Late st Contact Info) Description 07/10/2018 Telephone [place] [phone] Jimmy Calvillo PA [address] [place] [address] [place] [address] Social History Tobacco Use Types Packs/Day Years [...] encounter Miscellaneous Notes * Telephone Encounter - Jimmy Calvillo PA - 07/10/2018 5:52 PM EST I returned patient's call today regarding her concerns about upcoming procedures on 08/01 (EGD/EUS with liver biopsy, colonoscopy). She is anxious about having these done. She first asks if she can have liver biopsy alone first, and then think about rescheduling the EGD/colo. I explained to her that have all three procedures done at once, under the same monitored anesthesia, would be the most safe option and the one that makes most logistical sense. I explained to her the importance of the endoscopies as detailed by Angela Pizarro's note - for worsening upper abdominal issues as well as bowel irregularities and hematochezia. She understands the necessity to have these done. She tells me th at she is seeing her PCP (Lidia Benson APRN) next week on 07/17 and she will discuss with her then, about the details of the procedure and her anxiety. By the end of the conversation, Shaneka told me that she will still plan to keep her procedures as-is scheduled on 08/01, and she will call the GI office with questions as they arise, or if she decides to cancel/reschedule. I confirmed with her dates, including clinic follow-up on 08/17 with myself and Tuyet Juarez, and arrival time in the endoscopy suite on 08/01. [facility] of Gastroenterology [place] [address] documented in this encounter Plan of Treatment Not on file documented as of this encounter Visit Diagnoses Not on filedocumented in this encounter Care Teams Forensic Investigator Relationship Specialty Start Date End Date Lidia Benson APRN [address] [place] [address] PCP - General Family Medicine 02/28/18 08/23/19 documented as of this encounter
--- OUTSIDE RECORDS SUMMARY | 2024-05-22 19:42 | XMS_ITS | Encounter Summary ---
Author Organization [facility] [place] [address] Care Team Providers Care Senior Data Quality Analyst Name Role Phone Lidia Benson APRN Primary Care Provider + [phone] Reason for Referral * Consultation (Routine) - Closed Specialty Diagnoses / Procedures Referred By Mateusz ibarra Referred To Contact Gastroenterology Diagnoses Elevated LFTs Upper abdominal pain Irritable bowel syndrome with diarrhea Hematochezia Angela Pizarro APRN [address] [address] [facility] [address] [place] [address] Referral ID Status Reason Start Date Expiration Date V isits Requested Visits Authorized [id number] Closed Consult, Test & Treat 06/13/2018 06/13/2019 1 1 Reason for Visit * Reason Comments GI Problem Encounter Details Date Type Department Care Team (Late st Contact Info) Description 06/13/2018 2:00 PM EDT Office [place] [address] Angela Pizarro APRN [address] [place] [address] Elevated LFTs; Upper abdominal pain; Irritable bowel syndrome with diarrhea; Hematochezia; Dysphagia, unspecified type Social History Tobacco Use Types Packs/Day Years [...] EDT documented in this encounter Patient Instructions * Patient Instructions* Angela Pizarro APRN - 06/13/2018 2:00 PM EDT 1. Labs today in 3L 2. Fibroscan 3. Referral to liver team 4. Stool studies at your convenience 5. Dicyclomine 10 mg four times daily as needed for abdominal pain 6. Upper endoscopy and colonoscopy with anesthesia 7. Low-FODMAP diet for 2-4 weeks. Gradually reintroduce one food at a time to identify triggers. ADDITIONAL RESOURCES: *The [facility] has a wonderful kee available for this diet *We also recommend a blog called [email or web address] 8. Follow up appointment 2-3 weeks after upper endoscopy and colonoscopy documented in this encounter Progress Notes * Angela Pizarro APRN - 06/13/2018 2:00 PM EDT HAIR TINTER: Angela Pizarro APRN PCP: Lidia Benson APRN REQUESTING PROVIDER: Lidia Benson APRN REASON FOR CONSULTATION This is a 37 y.o. female with a history significant for DM2. I am seeing her as a new patient todayin consult for chronic diarrhea and fatty liver. [...] LLQ and RUQ first has been an issue for a years, but it has been getting progressively worse especially over the past three weeks. Intermittent. Blood mixed in stool. Dull cramping pains. Has not had stool studies done for this issue.Denies constipation. Denies straining and difficulty emptying. Stools are [place] type 4/5. Denies mucus in stool. Feels feverish, sweating, shortness of breath, weakness. Unintentional weight loss of approximately 10 lbs in one night. This weight has been regained. She was taking small intestine detox and colon detox 2 days. Has also been taking vitamins over the pastseveral weeks. B12, Vitamin C. She was recently taking antibiotics for diverticulitis. This did not improve symptoms. She developed a yeast infection and was taking a medication for this three times a day for one week. Stopped taking. Denies chronic NSAIDs. CT scan done here in 2017. She had another CT scan done in February 2018. Last A1C 6 point something. It was in the good range. She endorses diabetes for approximately 2 years. Dysphagia on a daily basis. Food becomes lodged. Liquids and solids. Reflux and regurgitation. Goodappetite. Denies early satiety. Denies nausea and vomiting. [...] by mouth., Disp: , Rfl: ??? lancets [facility] [facility]Non-Drug; Combo Route) route., Disp: , Rfl: ??? Blood-Glucose Meter [facility], by [facility].(Non-Drug; Combo Route) route., Disp: , Rfl: ??? ARIPiprazole (ABILIFY MAINTENA) 400 mg Suspension,Sust.Release Recon, Inject 2 mLs into the muscle every 30 days., Disp: 1 each, Rfl: 0 ??? topiramate (TOPAMAX) 25 mg Capsule, Sprinkle, Take 25 mg by mouth daily., Disp: , Rfl: ??? levothyroxine (SYNTHROID) 25 mcg Tablet, Take by mouth daily. Indications: unknown dose, Disp: , Rfl: MEDICAL HISTORY Past Medical History: Diagnosis Date ??? Diabetes mellitus ??? Hypothyroidism ??? Schizophrenia SURGICAL HISTORY Non-contributory SOCIAL HISTORY Currently works as a disabled. Single. Has 2 kids. HABITS Denies tobacco use. Occasional alcohol use. Denies using other substances. FAMILY HISTORY Denies family history of celiac disease, esophageal cancer, stomach cancer, colon cancer, pancreatic or liver issues, and IBD. PHYSICAL EXAM: Most [...] and RUQ. No rebound or guarding. Normal activeBS. Soft, non-distended. No bruits. No organomegaly. EXT: [...] Component Value Date TSH 2.33 02/22/2017 06/07/18 ([facility]); Platelets 262 AST 175 ALT 130 [...] the best historian. She has not had st ool studies done for this issue. Recommend fecal calprotectin, stool culture, c. Diff stool antigen, and fecal occult blood. Recommend low-FODMAP diet. Literature reviewed and provided. Recommend limiting fiber to 15-20g per day. Recommend dicyclomine. We reviewed medication indications, administration, and side effects. Consider utility of CTE/MRE. Recommend TTG/IgA, IgA today. Consider role of DM. She is at increased risk of SIBO. Ddx: IBS, [...] 3:01 PM Section of Gastroenterology & Hepatology [facility] documented in this encounter Miscellaneous Notes * Addendum Note - Casper Lima - 06/13/2018 3:34 PM EDTAddended by: CASPER LIMA on: 06/13/2018 03:34 PM Modules accepted: Orders documented in this encounter Plan of Treatment Scheduled Referrals Name Type Priority Associated Diagnoses Order Schedule Referral to Gastroenterology Outpatient Referral Routine Elevated LFTs Upper abdominal pain Irritable bowel syndrome with diarrhea Hematochezia Ordered: 06/13/2018 documented as of this encounter Procedures Procedure Name Priority Date/Time Associated Diagnosis Comments A1AT GENOTYPE Routine 06/13/2018 3:46 PM EDT Elevated LFTs Upper abdominal pain Irritable bowel syndrome with diarrhea Hematochezia A1AT GENOTYPE PROFILE Routine 06/13/2018 3:46 PM EDT Elevated LFTs Upper abdominal pain Irritable bowel syndrome with diarrhea Hematochezia HEMOGRAM Routine 06/13/2018 3:46 PM EDT Upper abdominal pain Elevated LFTs DIFFERENTIAL, AUTOMATED Routine 06/13/2018 3:46 PM EDT Upper abdominal pain Elevated LFTs HEPATITIS C ANTIBODY Routine 06/13/2018 3:46 PM EDT Upper abdominal pain Elevated LFTs IRON AND TIBC Routine 06/13/2018 3:46 PM EDT Upper abdominal pain Elevated LFTs [id number] Routine 06/13/2018 3 :46 PM EDT Elevated LFTs Upper abdominal pain Irritable bowel syndrome with diarrhea Hematochezia HEPATITIS A ANTIBODY, TOTAL Routine 06/13/2018 3:46 PM EDT Upper abdominal pain Elevated LFTs MITOCHONDRIAL ANTIBODY, M2 Routine 06/13/2018 3:46 PM EDT Upper abdominal pain Elevated LFTs TISSUE TRANSGLUTAMINASE, IGA Routine 06/13/2018 3:46 PM EDT Elevated LFTs Upper abdominal pain Irritable bowel syndrome with diarrhea Hematochezia CERULOPLASMIN Routine 06/13/2018 3:46 PM EDT Upper abdominal pain Elevated LFTs HEPATITIS B CORE ANTIBODY, TOTAL Routine 06/13/2018 3:46 PM EDT Upper abdominal pain Elevated LFTs SMOOTH MUSCLE ANTIBODY Routine 8 3:46 PM EDT Upper abdominal pain Elevated LFTs HIV SCREEN, 4TH GENERATION ([facility]/CGP/APD/NLH) Routine 06/13/2018 3:46 PM EDT Upper abdominal pain Elevated LFTs HEPATITIS B SURFACE ANTIBODY Routine 06/13/2018 3:46 PM EDT Upper abdominal pain Elevated LFTs HEPATITIS B SURFACE ANTIGEN Routine 06/13/2018 3:46 PM EDT Upper abdominal pain Elevated LFTs CBC (WITH DIFF) Routine 06/13/2018 3:46 PM EDT Upper abdominal pain Elevated LFTs LUTHER ANTIBODY SCREEN Routine 06/13/2018 3 :46 PM EDT Upper abdominal pain Elevated LFTs PROTEIN ELECTROPHORESIS, SERUM Routine 06/13/2018 3:46 PM EDT Upper abdominal pain Elevated LFTs IGA Routine 06/13/2018 3:46 PM EDT Elevated LFTs Upper abdominal pain Irritable bowel syndrome with diarrhea Hematochezia IGG Routine 06/13/2018 3:46 PM EDT Upper abdominal pain Elevated LFTs FERRITIN Routine 06/13/2018 3:46 PM EDT Upper abdominal pain Elevated LFTs COMPREHENSIVE METABOLIC PANEL Routine 06/13/2018 3:46 PM EDT Upper abdominal pain Elevated LFTs documented in this encounter Results * A1AT Genotype (06/13/2018 3:46 PM EDT) A1AT Genotype A1AT (SERPINA1) GENOTYPING RESULTS: S ALLELE: ??NOT DETECTED Z ALLELE: ??HETEROZYGOUS, ONE COPY OF THE [...] regions of interest in the serpin peptidase inhibitor, clade A (alpha-1 antiproteinase, antitrypsin), member 1 gene (SERPINA1), commonly alpha-1 anti-trypsin or A1AT) that are known to contain variant alleles resulting in the ? S? phenotype ([id number]:c.863 A>T; [id number]) and the ? Z? phenotype (c. 1096G>A; [id number]) are amplified and genotyped by two separate PCR assays each containing two primers for amplification and two probes for detection the normal and variant alleles. ??Genomic DNA used in this testing was isolated from peripheral blood. LIMITATIONS AND DISCLAIMERS: ??Although unlikely, rare variants or polymorphisms (known or unknown) have the potential to interfere with the performance of this test, producing false negative or false positive results. ??When genotyping results are not consistent with other clinical observations or test results, additional testing should be considered. This test was developed and its performance characteristics determined by the [facility] at [facility]. It has not been cleared or approved by the FDA. The laboratory is regulated under CLIA as qualified to perform high-complexity testing. This test is used for clinical purposes. It should not be regarded as investigational or for research. [facility] Comment: [VERIFIED DATE]06.19.18 Verified By:Karlie Abarca (Electronic Signature) Blood specimen (specimen) 06/13/2018 3:46 PM EDT 06/14/2018 9:42 AM EDT Narrative Resulting Agency Comment Spec In Lab Angela Pizarro PARALEGAL SECRETARY CHEMISTRY ORDERA BLES [facility] [place] [address] * (ABNORMAL) A1AT Serum Concentration (06/13/2018 3:46 PM EDT) A1AT 77(L) 90 - 200 mg/dL [facility] Comment: To convert [id number] to SI unit (umol/L), multiply result (mg/dL) by 0.184. Blood specimen (specimen) 06/13/2018 3:46 PM EDT 06/13/2018 3:50 PM EDT Narrative Resulting Agency Comment Spec In Lab Angela Lynch Juarez PARALEGAL SECRETARY CHEMISTRY ORDERA BLES Performing Organization Address City/[facility]/[place] [address] * (ABNORMAL) Differential, Automated (06/13/2018 3:46 PM EDT) Neutrophil % 59.3 % [facility] Neutrophil Absolute 5.29 1.70 - 6.10 x10(3)/mc L [facility] Lymph % 29.7 % [facility] Lymphocytes Abs 2.6 0.9 - 3.2 x10(3)/ L [facility] Monocyte % 7.0 % [facility] Monocyte Abs 0.6 0.3 - 0.9 x10(3)/[facility] Eos % 2.1 % [facility] Eosinophils Abs 0.2 0.0 - 0.4 x10(3)/ L [facility] Basophil % 0.6 % [facility] Baso Absolute 0.0 0.0 - 0.1 x10(3)/ L [facility] Immature Gran % 1.30 % [facility] Comment: Immature granulocytes(IG's)percentage and absolute count will include metamyelocytes, myelocytes, and promyelocytes. Blood smears from CBCs yielding IG's will be scanned manually for concordance. If this scan disagrees with the automated IG or if promyelocytes are noted, a manual differential will be performed. Immature Gran Absolute 0.12(H) 0.00 - 0.04 x10(3)/ L [facility] Blood specimen (specimen) 06/13/2018 3:46 PM EDT 06/13/2018 3:50 PM EDT Narrative Resulting Agency Comment Spec In Lab Angela Lynch Juarez PARALEGAL SECRETARY HEMATOLOGY ORDER MICHEL Performing Organization Address City/[facility]/ZIP Co de Phone Number [facility] [place] [address] * (ABNORMAL) Hemogram (06/13/2018 3:46 PM EDT) White Blood Cell 8.9 4.0 - 9.5 x10(3)/[facility] Red Blood Cell 4.50 4.00 - 5.21 x10(6)/[facility] Hemoglobin 14.9 11.7 - 15.5 gm/dL [facility] Hematocrit 41.8 35.7 - 45.8 % [facility] Mean Cell Volume 92.9 82.6 - 94.4 fL [facility] Mean Cell Hemoglobin 33.1(H) 27.1 - 32.0 pg [facility] Mean Cell Hemoglobin Concentration 35.6(H) 31.7 - 35.0 gm/dL [facility] Platelet 274 145 - 357 x10(3)/[facility] RDW Standard Deviation 41.0 37.0 - 46.0 [facility] RDW coefficient of variation 11.9 11.5 - 14.1 % [facility] Mean Platelet Volume 9.5 7.6 - 12.9 fL [facility] NRBC% auto 0.0 % [facility] NRBC Absolute 0.000 0.000 - 0.000 x10(3)/[facility] Blood specimen (specimen) 06/13/2018 3:46 PM EDT 06/13/2018 3:50 PM EDT Narrative Resulting Agency Comment Spec In Lab Angela Pizarro PARALEGAL SECRETARY HEMATOLOGY ORDER MICHEL [facility] [place] [address] * IgA (06/13/2018 3:46 PM EDT) IgA 287 70 - 400 mg/dL [facility] Blood specimen (specimen) 06/13/2018 3:46 PM EDT 06/13/2018 3:50 PM EDT Narrative Resulting Agency Comment Spec In Lab Angela Braxtonreganteena PARALEGAL SECRETARY CHEMISTRY ORDERA BLES [facility] [place] [address] * Tissue transglutaminase, IgA (06/13/2018 3:46 PM EDT) [facility] TTG IgA Ab <1.2 <4.0 (Negative) unit/mL [facility] Comment: Test Performed by: [address] [address] Blood specimen (specimen) 06/13/2018 3:46 PM EDT 06/14/2018 8:50 AM EDT Narrative Resulting Agency Comment Spec In Lab Angela Braxtonkristine AUGUSTINN IMMUNOLOGY ORDER MICHEL Performing Organization Address [facility]/ZIP Co de Phone Number [facility] [place] [address] * Ceruloplasmin (06/13/2018 3:46 PM EDT) [facility] Ceruloplasmin 25.0 16.0 - 45.0 mg/dL [facility] Blood specimen (specimen) 06/13/2018 3:46 PM EDT 06/13/2018 3:50 PM EDT Narrative Resulting Agency Comment Spec In Lab Angela Braxtonkristine AUGUSTINN CHEMISTRY ORDERA BLES Performing Organization Address City/[facility]/ZIP Co de Phone Number [facility] [place] [address] * (ABNORMAL) Ferritin (06/13/2018 3:46 PM EDT) [facility] Ferritin 220(H) 15 - 150 ng/mL [facility] Comment: Pediatric reference ranges not verified at [facility], interpret with caution. Reference ranges for females greater than 50 years of age approach values for men, i.e., 30-400 ng/mL. Blood specimen (specimen) 06/13/2018 3:46 PM EDT 06/13/2018 3:50 PM EDT Narrative Resulting Agency Comment Spec In Lab Angela Pizarro PARALEGAL SECRETARY CHEMISTRY ORDERA BLES Performing Organization Address [facility] Co de Phone Number [facility] [address] * Iron and TIBC (06/13/2018 3:46 PM EDT) Iron 73 30 - 150 mcg/dL [facility] TIBC 334 250 - 450 mcg/dL [facility] Iron Saturation 22 20 - 50 % [facility] Blood specimen (specimen) 06/13/2018 3:46 PM EDT 06/13/2018 3:50 PM EDT Narrative Resulting Agency Comment Spec In Lab Angela Pizarro PARALEGAL SECRETARY CHEMISTRY ORDERA BLES Performing Organization Address [facility] Co de Phone Number [facility] [place] [address] * Protein Electrophoresis, serum (06/13/2018 3:46 PM EDT) Total Prot Electrophoresis 6.8 6.1 - 8.0 gm/dL [facility] Albumin Electrophoresis 4.29 3.60 - 6.00 gm/dL [facility] Alpha 1 Globulin 0.12 0.10 - 0.30 gm/dL [facility] Alpha 2 Globulin 0.69 0.40 - 0.90 gm/dL [facility] Beta Globulin 1.00 0.50 - 1.00 gm/dL [facility] Gamma Globulin 0.70 0.50 - 1.30 gm/dL [facility] M1 Band None Detected None Detected [facility] Blood specimen (specimen) 06/13/2018 3:46 PM EDT 06/13/2018 3:50 PM EDT Narrative Resulting Agency Comment Spec In Lab Angela Pizarro PARALEGAL SECRETARY CHEMISTRY ORDERA BLES Performing Organization Address [facility] Co de Phone Number [facility] [place] [address] * IgG (06/13/2018 3:46 PM EDT) Immunoglobulin G 838 700 - 1,600 mg/dL [facility] Blood specimen (specimen) 06/13/2018 3:46 PM EDT 06/13/2018 3:50 PM EDT Narrative Resulting Agency Comment Spec In Lab Angela Pizarro APRN CHEMISTRY ORDERA BLES Performing Organization Address [facility] Co de Phone Number [facility] [place] [address] * Mitochondrial Antibody, M2 (06/13/2018 3:46 PM EDT) Mitochon Ab (JANUARY) <0.1 <0.1 (Negative) U [facility] Comment: Test Performed by: [facility] - [address] [address] Blood specimen (specimen) 06/13/2018 3:46 PM EDT 06/14/2018 8:50 AM EDT Narrative Resulting Agency Comment Spec In Lab nAgela Braxtonreganteena SONG LAB SEND OUT ORD ERABLES Performing Organization Address [facility] Co de Phone Number [facility] [place] [address] * Smooth Muscle Antibody (06/13/2018 3:46 PM EDT) Sm Muscle Ab (JANUARY) Negative Negative [facility] Comment: ADDITIONAL INFORMATION This test was developed and its performance characteristics determined by [facility] in a manner consistent with CLIA requirements. This test has not been cleared or approved by the U.S. Food and Drug Administration. Test Performed by: [facility] - [address] [address] Blood specimen (specimen) 06/13/2018 3:46 PM EDT 06/14/2018 8:50 AM EDT Narrative Resulting Agency Comment Spec In Lab Angela Pizarro APRN LAB SEND OUT ORD ERABLES [facility] [place] [address] * LUTHER (06/13/2018 3:46 PM EDT) LUTHER Neg Neg [facility] Blood specimen (specimen) 06/13/2018 3:46 PM EDT 06/14/2018 7:40 AM EDT Narrative Resulting Agency Comment Spec In Lab Angela Pizarro APRN LAB SEND OUT ORD ERABLES Performing Organization Address [facility]/ZIP Co de Phone Number [facility] [place] [address] * HIV Screen, 4th Generation (06/13/2018 3:46 PM EDT) [facility] HIV Ab/Ag Screen Negative Negative [facility] Comment: This 4th Generation HIV test screens for the presence of the HIV-1 p24 antigen as well as antibodies reactive against HIV-1 and HIV-2. A negative screen does not rule out an acute HIV infection. If acute HIV infection is suspected, testing should be repeated in 2 - 3 weeks or HIV nucleic acid testing performed. Blood specimen (specimen) 06/13/2018 3:46 PM EDT 06/13/2018 3:50 PM EDT Narrative Resulting Agency Comment Spec In Lab Angela Pizarro APRN CHEMISTRY ORDERA BLES Performing Organization Address City/[facility]/ZIP Co de Phone Number [facility] [place] [address] * Hepatitis C Antibody (06/13/2018 3:46 PM EDT) Hepatitis C Antibody Negative Negative [facility] Blood specimen (specimen) 06/13/2018 3:46 PM EDT 06/13/2018 3:50 PM EDT Narrative Resulting Agency Comment Spec In Lab Angela Pizarro PARALEGAL SECRETARY CHEMISTRY ORDERA BLES Performing Organization Address City/[facility]/ZIP Co de Phone Number [facility] [place] [address] * Hepatitis B Core Antibody, Total (06/13/2018 3:46 PM EDT) Hepatitis B Core Antibody Negative Negative [facility] Blood specimen (specimen) 06/13/2018 3:46 PM EDT 06/13/2018 3:50 PM EDT Narrative Resulting Agency Comment Spec In Lab Angela Pizarro PARALEGAL SECRETARY CHEMISTRY ORDERA BLES Performing Organization Address City/[facility]/ZIP Co de Phone Number [facility] [place] [address] * Hepatitis B Surface Antigen (06/13/2018 3:46 PM EDT) Hepatitis B Surface Antigen Negative Negative [facility] Blood specimen (specimen) 06/13/2018 3:46 PM EDT 06/13/2018 3:50 PM EDT Narrative Resulting Agency Comment Spec In Lab Angela Pizarro PARALEGAL SECRETARY CHEMISTRY ORDERA BLES Performing Organization Address City/[facility]/ZIP Co de Phone Number [facility] [place] [place] [address] * Hepatitis B Surface Antibody (06/13/2018 3:46 PM EDT) Hepatitis B Surface Antibody, Quantitative 231.5 IU/L [facility] Comment: HepB Surface Ab Quant: Unvaccinated: < 8.5 IU/L Vaccinated: > 11.5 IU/L Hepatitis B Surface Antibody Positive [facility] Comment: Patient is considered to be immune to HBV infection. Expected Results: Vaccinated: Positive Unvaccinated: Negative Blood specimen (specimen) 06/13/2018 3:46 PM EDT 06/13/2018 3:50 PM EDT Narrative Resulting Agency Comment Spec In Lab Angela Pizarro PARALEGAL SECRETARY CHEMISTRY ORDERA BLES Performing Organization Address [facility] Co de Phone Number [facility] [place] [address] * Hepatitis A Antibody, Total (06/13/2018 3:46 PM EDT) Hepatitis A ANTIBODY, TOTAL Negative Negative [facility] Blood specimen (specimen) 06/13/2018 3:46 PM EDT 06/13/2018 3:50 PM EDT Narrative Resulting Agency Comment Spec In Lab Angela Pizarro PARALEGAL SECRETARY CHEMISTRY ORDERA BLES Performing Organization Address [facility] Co de Phone Number [facility] [place] [address] * (ABNORMAL) Comprehensive metabolic panel (non-fasting) (06/13/2018 3:46 PM EDT) Glucose 273(H) 65 - 199 mg/dL [facility] Comment:Diabetes: >=200 mg/d L plus symptoms Blood Urea Nitrogen 10 8 - 18 mg/dL [facility] Creatinine 0.68(L) 0.70 - 1.20 mg/dL [facility] Sodium 136 135 - 145 mmol/L [facility] Potassium 3.8 3.5 - 5.0 mmol/L [facility] Comment: Please note: ??Patients with WBC >100,000 may have falsely elevated Potassium levels. ??For accurate Potassium quantification in these patients send serum separator tube (gold top) for subsequent determinations. ??Contact the Clinical Chemistry Laboratory if there are any questions. Chloride 100 98 - 107 mmol/L [facility] Carbon Dioxide 19(L) 22 - 31 mmol/L [facility] Anion Gap 17(H) 5 - 15 mmol/L [facility] LABORATORY Calcium 9.2 8.5 - 10.5 mg/dL [facility] Protein, Total 6.9 6.1 - 8.0 gm/dL [facility] Albumin 4.0 3.2 - 5.2 gm/dL [facility] Aspartate Aminotransferase 90(H) 0 - 30 unit/L [facility] Alanine Aminotransferase 109(H) 0 - 30 unit/L [facility] Alkaline Phosphatase 190(H) 40 - 104 unit/L [facility] Bilirubin, Total 0.2 0.2 - 1.3 mg/dL [facility] Est Glomerular Filtration Rate 112 >=60 mL/min/1. 73 m?? [facility] Comment: The eGFR was calculated using the CKD-EPI equation. As with all creatinine based estimates of kidney function, eGFR values calculated with the CKD-EPI equation are not accurate in patients with acute kidney failure, extremes of body mass or the acutely ill. http://RigUp/SMICnkf eGFR 130 >=60 mL/min/1. 73 m?? [facility] Comment: The eGFR was calculated using the CKD-EPI equation. As with all creatinine based estimates of kidney function, eGFR values calculated with the CKD-EPI equation are not accurate in patients with acute kidney failure, extremes of body mass or the acutely ill. http://[email or web address]/DHMCnkf Blood specimen (specimen) 06/13/2018 3:46 PM EDT 06/13/2018 3:50 PM EDT Narrative Resulting Agency Comment Spec In Lab Angela Pizarro PARALEGAL SECRETARY CHEMISTRY ORDERA BLES [facility] [place] [address] * [id number] (06/13/2018 3:36 PM EDT) Narrative Jimmy Calvillo PA - 06/13/2018 3:36 PM EDT Jimmy Calvillo PA ? 06/13/2018 ??3:36 PM [facility] Liver Fibrosis Assessment Report Indication: ?? Fatty liver, abnormal LFTs Performed by: ??[facility] Procedure: Vibration Controlled Transient Elastography (VCTE) or Fibroscan [place] Protocol: Patient's identity, procedure and site were verified, confirmatory pause performed. Discussed procedure including risks and potential complications. Questions answered. Patient verbalizes understanding and wishes to proceed with Fibroscan assessment. Patient was placed in the supine position with right arm in maximum abduction to allow optimal exposure of right lateral abdomen. Patient was briefly assessed. Testing was performed in the mid-axillary location. 50Hz Shear Wave pulses were applied and the resulting Shear Wave and Propagation Speed was detected with a 3.5MHz ultrasonic signal, using the Fibroscan probe. Skin to liver capsule distance and liver parenchyma were accessed during the entire examination with the Fibroscan probe. Patient was instructed to breathe normally and abstain from sudden movements during the procedure. At least ten Sheer Waves were produced; individual measurements of each [...] fibrosis and grade 3 steatosis affecting greater than 66% of hepatocytes. In coordination with Tuyet Foxkristine, we will order a full laboratory evaluation for abnormal LFTs and the patient will return for a consultation visit with me in the Hepatology clinic when results have returned. Angela Lynch Juarez ZULETA PROCEDURE/MINOR SURGICAL ORDERABLES documented in this encounter Visit Diagnoses [...] stool documented in this encounter Care Teams Senior Data Quality Analyst Relationship Specialty Start Date End Date Lidia Benson APRN [address] [place] [address] PCP - General Family Medicine 02/28/18 08/23/19 documented as of this encounter
--- OUTSIDE RECORDS SUMMARY | 2024-05-22 19:42 | XMS_ITS | Encounter Summary ---
Author Organization Formerly [facility] [place] [address] Care Team Providers Care Preschool Lead Teacher Name Role Phone None Primary Care Provider Unavailabl e Encounter Details Date Type Department Care Team (Latest Contact Info) Description 03/16/2017 12:00 PM EDT - 03/16/2017 11:59 PM EDT Hospital Encounter XRay at [address] [place] [address] Matthew Andrews MD [facility] [place] [address] Injury of left ankle, initial encounter Discharge Disposition: Home Social History Tobacco Use Types Packs/Day Years [...] Sig Dispensed Refills Start Date End Date lancets Misc by Misc.(Non-Drug; Combo Route) route. Blood-Glucose Meter Misc by Misc.(Non-Drug; Combo Route) route. ARIPiprazole (ABILIFY MAINTENA) 400 mg Suspension,Sust.Release Recon Inject 2 mLs into the muscle every 30 days. 1 each 03/03/2017 levothyroxine (SYNTHROID) 25 mcg TabletIndications:unkno wn dose Take by mouth daily. Indications: unknown dose metFORMIN (GLUCOPHAGE) 500 mg Tablet Take 500 mg by mouth. 06/28/2018 aspirin 81 mg Tablet, Chewable Take 81 mg by mouth 2 times daily for 15 days. 30 tablet 03/03/2017 03/18/2017 topiramate (TOPAMAX) 25 mg Capsule, Sprinkle Take 25 mg by mouth daily. 07/13/2019 documented as of this encounter Plan of Treatment Not on file documented as of this encounter Procedures Procedure Name Priority Date/Time Associated Diagnosis Comments XR ANKLE MIN 3 VIEWS LEFT Routine 03/16/2017 12:43 PM EDT Injury of left ankle, initial encounter documented in this encounter Results * XR Ankle Min 3 views Left (Generic) (03/16/2017 12:43 PM EDT) Anatomical Region Laterality Modality Ankle Left Digital Radiogra phy Impressions 03/16/2017 3:59 PM EDT Unchanged radiographic appearance of a posteriorly displaced vertical fracture through the posterior process of the talus. I have personally reviewed the image(s) and the residents interpretation and agree with the findings, ALMAS OWENS at 03/16/2017 3:59 PM Narrative 03/16/2017 3:59 PM EDT EXAMINATION: XR ANKLE MIN 3 VIEWS LEFT (GENERIC) CLINICAL HISTORY: Left displaced posterior talar process fracture with date of injury 02/19/17 TECHNIQUE: AP, oblique, and lateral views of the left ankle COMPARISON: 02/19/2017 left ankle radiographs FINDINGS: Unchanged appearance of the posteriorly displaced vertical fracture through the posterior process of the talus. Edema throughout Kager's fat pad persists. Bone mineralization is normal. The joint spaces are otherwise normal. Procedure Note Almas Owens MD - 03/16/2017 EXAMINATION: XR ANKLE MIN 3 VIEWS LEFT (GENERIC) CLINICAL HISTORY: Left displaced posterior talar process fracture withdate of injury 02/19/17 TECHNIQUE: AP, oblique, and lateral views of the left ankle COMPARISON: 02/19/2017 left ankle radiographs FINDINGS: Unchanged appearance of the posteriorly displaced vertical fracturethrough the posterior process of the talus. Edema throughout Kager's fat pad persists.Bone mineralization is normal. The joint spaces are otherwise normal. IMPRESSION Unchanged radiographic appearance of a posteriorly displaced verticalfracture through the posterior process of the talus. I have personally reviewed the image(s) and the residents interpretationand agree with the findings, ALMAS OWENS at 03/16/2017 3:59 PM Matthew Andrews MD IMG DX ORDERABLES documented in this encounter Visit Diagnoses Diagnosis Injury of left ankle, initial encounter documented in this encounter Care Teams Preschool Lead Teacher Relationship Specialty Start Date End Date None None PCP - General 12/09/16 02/27/18 documented as of this encounter
--- OUTSIDE RECORDS SUMMARY | 2024-05-22 19:42 | XMS_ITS | Encounter Summary ---
Author Organization [facility] [place] [address] Care Team Providers Care Labor Specialist Name Role Phone Lidia Benson APRN Primary Care Provider [phone] Encounter Details Date Type Department Care Team (Late st Contact Info) Description 01/29/2022 Ancillary Procedure Radiology Library at [facility] [place] [id number] Lidia Benson APRN [address] [place] [address] [place] [address] [place] [address] Social History Tobacco Use Types Packs/Day Years Used Date Smoking Tobacco: Every Day Cigarettes 0.5 1 Smokeless Tobacco: Never Comments:smokes 1-2 cigarett es a day Alcohol Use Standard Drinks/Week Comments [...] Procedure Name Priority Date/Time Associated Diagnosis Comments FILM LIBRARY STORAGE ONLY ULTRASOUND STUDY Routine 01/29/2022 12:00 AM EDT documented in this encounter Results * Film Library- Storage Only Ultrasound Study (01/29/2022 12:00 AM EDT) Narrative RAD - 02/03/2022 4:31 PM EDT This exam is auto-finalizing. It's purpose is for storage only. Lidia MARMOLEJOG FILM LIBRARY ORD ERABLES [facility] RAD [place], [place] documented in this encounter Visit Diagnoses Not on filedocumented in this encounter Care Teams Labor Specialist Relationship Specialty Start Date End Date Lidia Benson APRN [address] [place] [address] PCP - General Family Medicine 09/14/19 documented as of this encounter
--- OUTSIDE RECORDS SUMMARY | 2024-05-22 19:42 | XMS_ITS | Encounter Summary ---
Author Organization [facility] [place] [address] Care Team Providers Care Band Salvager Name Role Phone Lidia Benson APRN Primary Care Provider + [phone] Encounter Details Date Type Department Care Team (Late st Contact Info) Description 10/19/2018 Telephone [facility]enterology at [facility] [place] [phone] Toan Mena Social History Tobacco Use Types [...] * Telephone Encounter - Toan Mena - 10/19/2018 1:21 PM EST Pt called to schedule liver bx. Told pt that Laci Calvillo wants labs done first. Pt said she uses [facility] for lab work so I faxed the orders there @ [phone]. documented in this encounter Plan of Treatment Not on file documented as of this encounter Visit Diagnoses Not on filedocumented in this encounter Care Teams Band Salvager Relationship Specialty Start Date End Date Lidia Benson APRN [address] [place], [place] [id number] PCP - General Family Medicine 02/28/18 08/23/19 documented as of this encounter
--- OUTSIDE RECORDS SUMMARY | 2024-05-22 19:42 | XMS_ITS | Encounter Summary ---
Author Organization [facility] [place] [address] Care Team Providers Care Window Glazier Name Role Phone Lidia Benson APRN Primary Care Provider + [phone] Encounter Details Date Type Department Care Team (Late st Contact Info) Description 01/15/2019 Telephone Gastroenterology at [facility] [place] [phone] Eunice Joyner Social History Tobacco Use Types Packs/Day Years [...] encounter Miscellaneous Notes * Telephone Encounter - Eunice Joyner - 01/15/2019 10:05 AM EDT Shaneka Samano [id number] Diagnosis: hematochezia, abdominal pain 1. Have you ever had an egd/ colonoscopy before? [] YES [x] NO If Yes, Date of Last Bybee: If yes, did you have any problems with the procedure? [] YES [] NO Explain: What type of sedation was used: 2. Do you take any Blood Thinners? [] YES [x] NO If Yes, type: 3. Do you have a Pacemaker or Defibrillator device? [] YES [x] NO If Yes send [employer] message to [employer] ENDO DEVICE CHECK 4. Are you a [...] NO 11. You must have a responsible constitution party stay at the facility during your procedure and drive you home? [x] YES 12. Is there any other information you would like to give us to aid in scheduling? Height: 5'3 Weight: 195 BMI: 34.5 Age:38 y.o. documented in this encounter Plan of Treatment Not on file documented as of this encounter Visit Diagnoses Not on filedocumented in this encounter Care Teams Window Glazier Relationship Specialty Start Date End Date Lidia Benson APRN [address] [place] [address] PCP - General Family Medicine 02/28/18 08/23/19 documented as of this encounter
--- OUTSIDE RECORDS SUMMARY | 2024-05-22 19:42 | XMS_ITS | Encounter Summary ---
Author Organization [facility] [place] [address] Care Team Providers Care Sales Clerk Supervisor Name Role Phone BeverlyLidia humphreys SONG Primary Care Provider + [phone] Encounter Details Date Type Department Care Team (Late st Contact Info) Description 07/10/2018 Telephone Gastroenterology at [facility] [place] [phone] Jimmy Calvillo PA [address] [place] [address] [place] [address] Social History Tobacco Use Types Packs/Day Years [...] encounter Miscellaneous Notes * Telephone Encounter - Sandi Walker - 07/10/2018 2:15 PM EST Pt called back to talk with Laci Calvillo. Laci in with pt. Let her know that I would let him know that she called. She asked that he call the same number he did last time * Telephone Encounter - Jimmy Calvillo PA - 07/10/2018 10:13 AM EST Left voicemail to discuss patient's concerns regarding upcoming procedures. Asked that she call GI office back to speak with me. DG documented in this encounter Plan of Treatment Not on file documented as of this encounter Visit Diagnoses Not on filedocumented in this encounter Care Teams Sales Clerk Supervisor Relationship Specialty Start Date End Date Lidai Benson, PEDIATRIC DIETICIAN [address] [place] [address] PCP - General Family Medicine 02/28/18 08/23/19 documented as of this encounter
--- OUTSIDE RECORDS SUMMARY | 2024-05-22 19:42 | XMS_ITS | Encounter Summary ---
Author Organization [facility]ly [facility] [place] [address] Care Team Providers Care Independent Beauty Consultant Name Role Phone None Primary Care Provider Unavailabl e Encounter Details Date Type Department Care Team (Late st Contact Info) Description 03/03/2017 Orders Only Psychiatry and Behavioral Health at [facility] [place] [address] Sancho Deras Jr., MD [facility] [place] [address] Social History Tobacco Use Types Packs/Day Years [...] documented as of this encounter Progress Notes * Sancho Deras Jr., MD - 03/03/2017 6:23 PM EDT Spoke to caregiver at Shaneka's place of discharge today, who stated that they did not receive the correct dose of synthroid for her. They received 75 mcg tablets, when her discharge documentation stated she should be taking 25 mcg tablets. They also did not receive her senna prescription. I agreed to send these two prescriptions to [facility] in [facility] after reviewing her discharge paperwork and confirming these were discharge medications. documented in this encounter Plan of Treatment Not on file documented as of this encounter Visit Diagnoses Not on filedocumented in this encounter Care Teams Independent Beauty Consultant Relationship Specialty Start Date End Date None None PCP - General 12/09/16 02/27/18 documented as of this encounter
--- OUTSIDE RECORDS SUMMARY | 2024-05-22 19:42 | XMS_ITS | Encounter Summary ---
Author Organization [facility] Poo[address] [place] [address] Care Team Providers Care Cook Chill Technician Name Role Phone Lidia Benson APRN Primary Care Provider + [phone] Reason for Visit * Reason Comments Advice Only breast implant compl ications left breast Encounter Details Date Type Department Care Team (Late st Contact Info) Description 07/13/2019 10:30 AM EST Office [place] [address] Corby Curry MD [facility] [place] [address] Complication of breast implant, initial encounter Social History Tobacco Use Types [...] Weight 89.7 kg (197 lb 12.8 oz) 019 10:30 AM EST Height 163.8 cm (5' 4.5) 07/13/2019 10 :30 AM EST Body Mass Index 33.43 07/13/2019 10:30 AM EST documented in this encounter Patient Instructions * Patient Instructions* Elysia Tracy RN - 07/13/2019 10:30 AM EST You [...] supplements, Ginseng, Fish oil tablets, Ginkgo and Lafontaine's Wort. May resume 48 hours after surgery 3 days before surgery: Do not shave near your surgical site 1 day before surgery: Shower the night before and the morning of your surgery using an antibacterial soap (Dial or Lever 2000) or Hibiclens that was provided Photos Taken: Yes with iPad To prepare for your upcoming surgery, please review the Pre-Operative Instruction brochure that youwere given at today's appointment. Feel free to call our office [phone] if you have any nursingquestions or concerns. We monitor the phones from 8-5 Tuesday through Tuesday. Expect a call from the Same Day Dept the business day before surgery to go over your list of medications and instruct you on arrival time, and when to stop eating and drinking. For questions pertaining to your surgery date or time please call Alannah at [phone]. documented in this encounter Progress Notes * Corby Curry MD - 07/13/2019 10:30 AM [...] she has diabetes and liver disease. She only has one implant in and had it placed [...] file Gets together: Not on file Attends restorationism service: Not on file Active member of [...] mouth 4 times daily as needed. 120 capsule3 ??? lancets Misc by Misc.(Non-Drug; Combo Route) [...] informed consent obtained. We discussed the fact thatshruthie will be asymmetric and that insurance would [...] Left Breast Implant Removal with Caspulectomy CPT: 17551, [address]82 Surgical site: Breast Side: Left Anesthesia: General [...] encounter documented in this encounter Care Teams Cook Chill Technician Relationship Specialty Start Date End Date Lidia Benson, PHOTOENGRAVER APPRENTICE [address] [place] [address] PCP - General Family Medicine 02/28/18 08/23/19 documented as of this encounter
--- OUTSIDE RECORDS SUMMARY | 2024-05-22 19:42 | XMS_ITS | Encounter Summary ---
Author Organization [facility] [place] [address] Care Team Providers Care Chemical Tank Worker Name Role Phone Kelley Lidia SONG Primary Care Provider + [phone] Reason for Visit * Reason Comments Follow Up Surgery s/p left breast impl ant removal Encounter Details Date Type Department Care Team (Late st Contact Info) Description 02/19/2020 11:15 AM EDT Office [place] [address] Corby Curry MD [facility] [place] [address] Surgery follow-up; Complication of breast implant, initial encounter Social [...] as of this encounter Progress Notes * Corby Curry MD - 02/19/2020 11:15 AM [...] was seen today for follow-up after the aboveprocedure. Please see the operative note for details. She is doing well without complaints. I am very pleased with her healing to date. Her incisions are well-healed, no sign of infection. I informedher that Medicaid will not cover another implant [...] Diagnoses Diagnosis Surgery follow-up Follow-up examination, following unspecified surgery Complication of breast implant, initial encounter documented in this encounter Care Teams Chemical Tank Worker Relationship Specialty Start Date End Date Lidia Benson APRN [address] [place] [address] PCP - General Family Medicine 09/14/19 documented as of this encounter
--- OUTSIDE RECORDS SUMMARY | 2024-05-22 19:42 | XMS_ITS | Encounter Summary ---
[place] [address] Care Team Providers Care Labor/Excavator Name Role Phone Lidia Benson APRN Primary Care Provider + [phone] Reason for Referral * Consultation (Routine) - Specialty Diagnoses / Procedures Referred By Mateusz ibarra Referred To Contact Gastroenterology Diagnoses Nonalcoholic steatohepatitis METZGER Marcio Lovelace MD [address] [place] [address] [place] [address] [facility] [place] [address] Referral ID Status Reason Start Date Expiration Date V isits Requested Visits Authorized [id number] Consult, Test & Treat PCP Updated and/or Approved 03/11/2022 03/11/2023 6 6 Encounter Details Date Type Department Care Team (Latest Contact Info) Description 03/11/2022 Transcribe Orders eDH Incoming Referrals [phone] Marcio Lovelace MD [address] [place] [address] [place], [place] [phone] Nonalcoholic steatohepatitis Social History Tobacco Use Types Packs/Day Years [...] Associated Diagnoses Orde r Schedule Referral to Gastroenterology Outpatient Referral Routine Nonalcoholic steatohepatitis Ordered: 03/11/2022 documented as of this encounter Visit Diagnoses Diagnosis Nonalcoholic steatohepatitis Other chronic nonalcoholic liver disease documented in this encounter Care Teams Labor/Excavator Relationship Specialty Start Date End Date Lidia Benson, SONG [address] [place] [address] PCP - General Family Medicine 09/14/19 documented as of this encounter
--- OUTSIDE RECORDS SUMMARY | 2024-05-22 19:42 | XMS_ITS | Encounter Summary ---
Author Organization [facility] [place] [address] Care Team Providers Care Client Portfolio Manager Name Role Phone Lidia Benson APRN Primary Care Provider + [phone] Encounter Details Date Type Department Care Team (Late st Contact Info) Description 10/25/2018 External Results Gastroenterology at [facility] [place] [phone] Jimmy Calvillo PA [address] [place] [address] [place] [address] Social History Tobacco Use Types Packs/Day Years [...] Procedure Name Priority Date/Time Associated Diagnosis Comments EXTERNAL LAB CBC CMP THYROID RESULTS PANEL Routine 10/24/2018 documented in this encounter Results * CBC / CMP / Thyroid External Results (10/24/2018) Protein, Total 7.7 Albumin 3.4 Bilirubin, Total 0.2 Alkaline Phosphatase 148 Aspartate Aminotransferase 41 Alanine Aminotransferase 68 Historical Provider EXTERNAL LAB [facility]SH[facility] VILLARREAL documented in this encounter Visit Diagnoses Not on filedocumented in this encounter Care Teams Client Portfolio Manager Relationship Specialty Start Date End Date Lidia Benson APRN [address] [place] [address] PCP - General Family Medicine 02/28/18 08/23/19 documented as of this encounter
--- OUTSIDE RECORDS SUMMARY | 2024-05-22 19:42 | XMS_ITS | Encounter Summary ---
Author Organization [facility] [place] [address] Care Team Providers Care House Repairer Name Role Phone Lidia Benson APRN Primary Care Provider + [phone] Reason for Referral * Consultation (Routine) - Closed Specialty Diagnoses / Procedures Referred By Contac t Referred To Contact Radiation Oncology Diagnoses Trigeminal neuralgia of left side of face Ankur Galindo MD [facility] [place] [address] Nick Hewitt MD [facility] [place] [address] Referral ID Status Reason Start Date Expiration Date V isits Requested Visits Authorized [id number] Closed Consult, Test & Treat 12/06/2019 12/05/2020 1 1 Reason for Visit * Consultation (Routine) - Specialty Diagnoses / Procedures Referred By Contac t Referred To Contact Neurosurgery Diagnoses Trigeminal neuralgia Jannette Salter MD [facility] [address] [place] [address] [facility] [address] [place] [phone] Referral ID Status Reason Start Date Expiration Date V isits Requested Visits Authorized [id number] Consult, Test & Treat [facility] PCP Updated and/or Approved 11/26/2019 11/25/2020 1 1 Encounter Details Date Type Department Care Team (Latest Contact Info) Description 12/06/2019 10:40 AM EDT TH Visit (TeleHealth) Neurosurgery [place] [address] Ankur Galindo MD [facility] [address] [address] Trigeminal neuralgia of left side of face Social History Tobacco Use Types Packs/Day Years [...] as of this encounter Progress Notes * Ankur Galindo MD - 12/06/2019 10:[address] [facility] Patient Name: Shaneka Samano : 1980 REF: Jannette Salter Date of Service: 12/06/[address] Jannette Salter: I had the pleasure of speaking with Shaneka Samano in a neurosurgery telephone visit today. As you know, she is a 39 y.o. woman with left V2 trigeminal neuralgia referred for possible surgical intervention. Due to the [facility] public health emergency and in person visit was not possible today and so she was offered a telephone office visit in place, and she consented to this. She states she has had approximately 2 years of a dull intense aching pain in her upper left jaw in the V2 region. She describes this as an intense and unbearable aching and denies any sharp or shooting pain. She states that she could have several episodes per day, each lasting approximately 30 minutes. She has put a numbing gel on her jaw when the pain comes on which does help the pain. She has also been managed with Lyrica, which she states also helps her pain. Exacerbating factors include cold food, and she states she has no clear triggers of pain. Of note, she has had no pain for the last few weeks, but she is anxious that the pain will recur and she continues to take Lyrica. She denies any facial numbness and denies any right-sided pain or pain in any other distribution on the left. She states shehad an MRI of her brain at [facility] in [place] about a year ago but we do not have these images available for review. PAST MEDICAL HISTORY Patient Active Problem List Diagnosis Code ??? Schizophrenia F20.9 ??? Fall W19.XXXA ??? Schizoaffective disorder F25.9 ??? Chronic diarrhea K52.9 ??? METZGER (nonalcoholic steatohepatitis) K75.81 ??? Cigarette smoker F17.210 ??? Restless leg syndrome G25.81 ??? Type 2 diabetes mellitus E11.9 ??? Obesity E66.9 ??? Hypothyroidism E03.9 ??? Amenorrhea N91.2 ??? Urinary frequency R35.0 ??? 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 Complication of breast implant, initial encounter T85.49XA Past Medical History: Diagnosis Date ??? Diabetes mellitus ??? Hypothyroidism ??? Schizophrenia Past Surgical History: Procedure Laterality Date ??? PRO REMOVAL OF IMPLANT MATERIAL Bilateral 09/17/2019 REMOVAL OF MAMMARY IMPLANT MATERIAL (WRVU 8.54) performed by Corby Curry MD at [facility] OSC ALLERGIES Allergies Allergen Reactions ??? Codeine ??? Percocet [Oxycodone-Acetaminophen] ??? Percocet [Oxycodone-Acetaminophen] Patient cannot remember reaction, but states it was mild MEDICATIONS Current Outpatient Medications: ??? insulin detemir U-100 (LEVEMIR) Solution, Inject 16 Units subcutaneously nightly., Disp: , Rfl: ??? benztropine (COGENTIN) 1 mg Tablet, TAKE ONE TABLET BY MOUTH EVERY NIGHT, Disp: , Rfl: 3 ??? ARISTADA 882 mg/3.2 mL suspension,extended rel syring, INJECT INTRAMUSCULARLY EVERY 4 WEEKS, Disp: , Rfl: 2 ??? BYDUREON 2 mg/0.65 mL Pen Injector, INJECT 2MG SUBCUTANEOUSLY ONCE A WEEK, Disp: , Rfl: 3 ??? OLANZapine (ZYPREXA) 10 mg Tablet, TAKE ONE TABLET BY MOUTH AT BEDTIME, Disp: , Rfl: 2 ??? gabapentin (NEURONTIN) 300 mg Capsule, Take 300 mg by mouth 3 times daily., Disp: , Rfl: ??? LYRICA 50 mg Capsule, Take 50 mg by mouth 2 times daily., Disp: , Rfl: ??? divalproex (DEPAKOTE) 500 mg Tablet, Delayed Release (E.C.), Take 2,000 mg by mouth daily., Disp: , Rfl: ??? lancets Misc, by Misc.(Non-Drug; Combo Route) route., Disp: , Rfl: ??? Blood-Glucose Meter Misc, by Misc.(Non-Drug; Combo Route) route., Disp: , Rfl: ??? ARIPiprazole (ABILIFY MAINTENA) 400 mg Suspension,Sust.Release Recon, Inject 2 mLs into the muscle every 30 days., Disp: 1 each, Rfl: 0 ??? levothyroxine (SYNTHROID) 25 mcg Tablet, Take by mouth daily. Indications: unknown dose, Disp: , Rfl: PHYSICAL EXAM Deferred due to telephone enounter ASSESSMENT & PLAN Ms. Samano appears to have symptoms consistent with type II trigeminal neuralgia in the left V2 distribution. Her pain has been somewhat controlled with Lyrica, but she is unable to trial many medications for facial pain due to interactions with her various psychiatric medications. Thus, she is seeking possible intervention for her pain. We discussed that she is not currently having any pain, butshe has had other periods where the pain has improved only to return. We discussed options for intervention, including microvascular decompression, percutaneous radiofrequency rhizotomy, and stereotactic radiosurgery. First I would like to review her MRI and we will work on obtaining these images. We also discussed the various interventions and she is disinclined towards a large surgery. Given her type II symptoms of atypical trigeminal neuralgia we also discussed that overall efficacy of theseprocedures is lower compared with patients who have type I pain (more sharp shooting paroxysmal pain). She is most interested in possible stereotactic radiosurgery and we discussed that this was performed in conjunction with Dr. Nick Hewitt in radiation oncology. She expressed desire to obtain referral to discuss this possibility with Dr. Hewitt, but she remains unsure if she would like to and then move forward with SRS. We will provide the referral so that she can discuss the expected benefits and risks of SRS with Dr. Hewitt. Thank you for involving me in the care of your patient. Please do not hesitate to contact me with any questions. With warm regards, Ankur Galindo MD Division of Neurosurgery, [place] [address] Attestation: Patient verbally consents to this telephone visit and understands that this visit may be billed, similar to a clinic office visit. I provided care to the patient today via telephone call, 45 minutes telephone visit was spent in discussion with patient on above. documented in this encounter Plan of Treatment Scheduled Referrals Name Type Priority Associated Diagnoses Orde r Schedule Referral to Radiation Oncology Outpatient Referral Routine Trigeminal neuralgia of left side of face Ordered: 12/06/2019 documented as of this encounter Visit Diagnoses Diagnosis Trigeminal neuralgia of left side of face documented in this encounter Care Teams House Repairer Relationship Specialty Start Date End Date Lidia Benson, SONG [address] [place] [address] PCP - General Family Medicine 09/14/19 documented as of this encounter
--- OUTSIDE RECORDS SUMMARY | 2024-05-22 19:42 | XMS_ITS | Encounter Summary ---
Author Organization [facility] [place] [address] Care Team Providers Care Claims Collector Name Role Phone Lidia Benson APRN Primary Care Provider + [phone] Reason for Visit * Reason Onset Date Comments Hepatic Disease 10/16/2018 Encounter Details Date Type Department Care Team (Late st Contact Info) Description 10/16/2018 [place] [address] Filomena Leyva Hepatic Disease Social History Tobacco Use Types Packs/Day Years [...] encounter Miscellaneous Notes * Telephone Encounter - Latanya Palomo RN - 10/17/2018 3:23 PM EST Called patient, left [facility] that she will need updated HFP prior to scheduling liver biopsy. Asked herto contact us with her blood draw location [...] now. Hien/nurses - can either of you contacther to explain this and send orders? I'll order the liver biopsy once I get her results back. I would then like to see her in clinic 1-2 weeks following the liver biopsy. Thanks! Laci * Telephone Encounter - Filomena Leyva - 10/16/2018 2:15 PM EST The pt called today to see if she can just get the liver biopsy. She does not want to do the EGD and the colo. She did not have the EGD/ EUS and the [place] done on 08/01/18. I am routing to Dr. Calvillo documented in this encounter Plan of Treatment Not on file documented as of this encounter Visit Diagnoses Not on filedocumented in this encounter Care Teams Claims Collector Relationship Specialty Start Date End Date Lidia Benson APRN [address] [place] [address] PCP - General Family Medicine 02/28/18 08/23/19 documented as of this encounter
--- OUTSIDE RECORDS SUMMARY | 2024-05-22 19:42 | XMS_ITS | Encounter Summary ---
[place] [address] Care Team Providers Care Emergency Department Rn Name Role Phone Lidia Benson APRN Primary Care Provider + [phone] Encounter Details Date Type Department Care Team (Late st Contact Info) Description 10/24/2018 Telephone [place] [id number] Hien Rowan Social History Tobacco Use Types Packs/Day Years [...] on filedocumented in this encounter Care Teams Emergency Department Rn Relationship Specialty Start Date End Date Lidia Benson APRN [address] [place], [place] [id number] PCP - General Family Medicine 02/28/18 08/23/19 documented as of this encounter
--- OUTSIDE RECORDS SUMMARY | 2024-05-22 19:42 | XMS_ITS | Encounter Summary ---
Author Organization [facility] [address] Care Team Providers Care Editorial Manager Name Role Phone Lidia Benson APRN Primary Care Provider + [phone] Encounter Details Date Type Department Care Team (Late st Contact Info) Description 12/25/2019 Telephone Radiation Oncology at [address] [phone] Cezar Longo Social History Tobacco Use Types Packs/Day Years [...] encounter Miscellaneous Notes * Telephone Encounter - Cezar Longo - 12/25/2019 8:10 AM EDT Received a call from Shaneka that she was declining her new patient appointment with Dr. Hewitt. She did not want to reschedule. documented in this encounter Plan of Treatment Not on file documented as of this encounter Visit Diagnoses Not on filedocumented in this encounter Care Teams Editorial Manager Relationship Specialty Start Date End Date Lidia Benson APRN [address] [place], [place] [id number] PCP - General Family Medicine 09/14/19 documented as of this encounter
--- OUTSIDE RECORDS SUMMARY | 2024-05-22 19:42 | XMS_ITS | Encounter Summary ---
Author Organization [facility] [place] [address] Care Team Providers Care Woodenware Assembler Name Role Phone Lidia Benson APRN Primary Care Provider + [phone] Reason for Visit * Auth/Cert Specialty Diagnoses / Procedures Referred By Mateusz ibarra Referred To Contact Diagnoses implant deflation left breast Procedures PRO REMOVAL OF BREAST IMPLANT PRO REMOVAL OF BREAST CAPSULE REMOVAL OF INTACT MAMMARY IMPLANT (WRVU 6.48) BREAST, PERIPROSTHETIC CAPSULECTOMY (WRVU 10.62) Referral ID Status Reason Start Date Expiration Date Visits Re quested Visits Authorized [id number] 1 1 Encounter Details Date Type Department Care Team (Late st Contact Info) Description 09/17/2019 8:15 AM EST - 09/17/2019 10:00 AM EST Surgery [place] [address] Corby Curry MD [facility] [place] [address] REMOVAL OF MAMMARY IMPLANT MATERIAL (WRVU 9) Social History Tobacco Use Types Packs/Day Years [...] 35.9 ??C (96.6 ??F) 09/17/2019 9:49 AM ES T Respiratory Rate 16 09/17/2019 10:00 AM EST Oxygen Saturation 97% 09/17/2019 10:00 AM EST Inhaled Oxygen Concentration - - Weight 88.5 kg (195 lb) 09/17/2019 7:14 AM EST Height 160 cm (5' 3) 09/17/2019 7:14 AM EST Body Mass Index 34.54 09/17/2019 7:14 AM EST documented in this encounter Discharge Instructions * Discharge Instructions* Kelsey Hernandez RN - 09/17/2019 10:52 AM EST At 8 15 AM you received 1000 mg of acetaminophen- Your next dose should not be taken before 8 hourshave passed. Next dose not before- 4:15 PM [...] beverages or make any legal decisions after havinggeneral anesthesia. The medications given change your reaction [...] please ask the surgeons office what they recommend for prevention of this. Some non-pharmaceutical means of constipation prevention include increasing intake of fluids, eating more fruits and vegetables as well as fruit juices. If you are uncomfortable and/or unable to urinate within 8 hours of discharge and it is before 5 pm, call your physician. If it is after 5pm go to the closest emergency room or call the hospital extractor and wringer operator at [phone] and ask for physician bonderite operator covering for your physician. Questions or problems after 5pm or on a weekend: Call the [facility] extractor and wringer operator at and ask for the physician bonderite operator covering for your doctor. * Patient Instructions* Braxton, Cheri M, INFORMATION SECURITY SYSTEMS INSTRUCTOR - 09/17/2019 10:37 AM EST Images from the original note were not included. Discharge instructions: ?? The healing process after breast reduction surgery varies with each person. You should expect tofeel tired for the first 2 - 3 weeks due to anesthesia and the healing process. Rest often during the day and get a good night sleep. Pain (short term and i&c tech) ?? With any surgery there is some [...] first few weeks after surgery. The swelling willgradually go down, but it may remain for [...] around your neck and attach the drains tothis to prevent accidental removal. ?? Have someone [...] you get out of bed with minimal use of your arms. Complications: Call your doctor with [...] scheduling, please contact our administrative offices at [phone] ?? For clinical questions, please call our nurses at [phone] ?? Both offices are open Tuesday thru Tuesday 8a - 5p. With emergencies after hours, call the hospital extractor and wringer operator at [phone] and ask for the Plastic Surgery Resident bonderite operator. [facility] DRAIN CARE INSTRUCTIONS General Information: Drains help to keep fluid from collecting by removing the extra blood and fluid from under the skin. A drain is temporary. It stays in place until the drainage has slowed down or stopped. Your doctoror nurse will decide when each drain should be removed: This is usually after each drain has 30cc or less in 24 hours for 2 days in a row. When this happens, you should call the General Surgery Clinic to schedule an appointment with the nurses to have [...] is usually due to clots in the drain. Follow the instructions on how to strip the drain tubing. ??? The tube accidentally falls out- If this happens, place a dry gauze dressing over the drain site and notify your doctor or nurse during business [...] twice a day or any time the bulbis full. Record the total for 24 hours for each drain you have. 6. If you have more than one drain, remember to record the drainage from each drain separately. 7. To prevent infection, do not let the stopper or top of the bottle touch the measuring cup or anyother surface. 8. 9. Use one hand to [...] before and after the procedure to reduce therisk of infection. Stripping the Tube Often the [...] Center 09/25/2019 11:00 AM NURSE, PLASTIC SURGERY [address] documented in this encounter Medications at Time of Discharge Medication Sig Dispensed Refills Start Date End Date insulin detemir U-100 (LEVEMIR) Solution Inject 16 Units subcutaneously nightly. benztropine (COGENTIN) 1 mg Tablet TAKE ONE TABLET BY MOUTH EVERY NIGHT 3 07/05/2019 ARISTADA 882 mg/3.2 mL suspension,extended rel syring INJECT INTRAMUSCULARLY EVERY 4 WEEKS 2 06/22/2019 BYDUREON 2 mg/0.65 mL Pen Injector INJECT 2MG SUBCUTANEOUSLY ONCE A WEEK 3 06/27/2019 OLANZapine (ZYPREXA) 10 mg Tablet TAKE ONE TABLET BY MOUTH AT BEDTIME 2 06/21/2019 gabapentin (NEURONTIN) 300 mg Capsule Take 300 mg by mouth 3 times daily. LYRICA 50 mg Capsule Take 50 mg by mouth 2 times daily. 05/30/2018 divalproex (DEPAKOTE) 500 mg Tablet, Delayed Release (E.C.) Take 2,000 mg by mouth daily. 06/01/2018 lancets Misc by [facility].(Non-Drug; Combo Route) route. Blood-Glucose Meter Misc by [facility].(Non-Drug; Combo Route) route. ARIPiprazole (ABILIFY MAINTENA) 400 mg Suspension,Sust.Relea se Recon Inject 2 mLs into the muscle every 30 days. 1 each 03/03/2017 levothyroxine (SYNTHROID) 25 mcg TabletIndications:unk nown dose Take by mouth daily. Indications: unknown dose documented as of this encounter Progress Notes * Kelsey Hernandez RN - 09/17/2019 11:00 AM EST Discharge instructions and medications reviewed with patient and escort. All questions answered andwritten copy sent home with patient. Pt eating and drinking without difficulty. Voided prior to discharge and was incontinent of urine as well. Patient ambulated to car for discharge accompanied by [facility] staff member. * Shital Lemon RN - 09/17/2019 8:20 AM EST Patient very sleepy pre-op. She states that her medications make her this way. Awakens easily when spoken to. documented in this encounter H&P Notes * Corby Curry MD - 09/17/2019 7:15 AM [...] scar contracture around the implant and I advisedher that surgical intervention and removal of the implant is recommended. Risk, benefits, alternative, complications of the procedure to include anesthesia plan and recovery were discussed with the patient, including but not limited to infection, bleeding, hematoma, seroma, scar formation and need for further and future surgery and informed consent obtained. We discussed the fact that she will beasymmetric and that insurance would not cover the placement of a new implant nor given her history of diabetes and additional medical issues I would not recommend placement of another implant. She understands this and would like to proceed with informed signed consent. ?? 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 The patient had an implant placed in her left breast to improve breast asymmetry and the implant has deflated or decreased in size with capsular contracture. The patient has scarcontracture around the implant and I advised her that surgical intervention and removal of the implant is recommended. Risk, benefits, alternative, complications of the procedure to include anesthesia plan and recovery were discussed with the patient, including but not limited to infection, bleeding, hematoma, seroma, scar formation and need for further and future surgery and informed consent obta ined. We discussed the fact that she will [...] implant rather than going through the area Rankin scar which she had had previously with a mastopexy. We felt that this would decrease the [...] implant was removed copious irrigation was performed. The capsule was soft and therefore not stripped as this was very thin. An open capsulotomy wasperformed. A 10 round drain was placed and brought through separate stab incision. This was closed w ith 4-0 Vicryl followed by 5-0 Vicryl followed by a [...] Procedure Name Priority Date/Time Associated Diagnosis Comments POCT FINGERSTICK GLUCOSE Routine 09/17/2019 11:03 AM EST Removal Of Implant Material (51387) 09/17/2019 8:58 AM EST implant deflation left breast documented in this encounter Results * (ABNORMAL) POCT Fingerstick Glucose (09/17/2019 11:03 AM EST) Glucose, POC 281(A) 60 - 199 mg/dl 09/17/2019 11:0 3 AM EST Corby Curry MD POINT OF CARE TEST O RDERABLES documented in this encounter Visit Diagnoses Not on filedocumented in this encounter Administered Medications Inactive Administered Medications - up to 3 most recent administrations Medication Order MAR Action Action Date Dose Rate Site acetaminophen (Tylenol) (32.02 mg/mL) oral liquid 650 mg 650 mg, Oral, EVERY 4 HOURS PRN, Starting on Tue09/17/19 at 0808, Until Tue09/17/19 at 1336, Fever, Maximum dose of acetaminophen is 4000 mg from all sources in 24 hours. Should be given concomitantly if other Analgesics are ordered., Routine acetaminophen (Tylenol) tablet 1,000 mg 1,000 mg, Oral, EVERY 6 HOURS PRN, Starting on Tue09/17/19 at 0737, Until Tue09/17/19 at 1336, Pain, Maximum dose of acetaminophen is 4000 mg from all sources in 24 hours., Routine Given 09/17/2019 8:12 AM EST 1,000 mg BUpivacaine (PF) (MARCAINE) 0.25 % (2.5 mg/mL) injection ONCE PRN, Starting on Tue09/17/19 at 0930, Until Tue09/17/19 at 1336, Intra-Operative (Intra-Procedure), Routine Given 09/17/2019 9:30 AM EST 101 mLs gabapentin (Neurontin) capsule 300 mg 300 mg, Oral, 3 TIMES DAILY, First dose on Tue09/17/19 at 0900, Until Discontinued, Routine Given 09/17/2019 8:13 AM EST 300 mg lactated ringers infusion 1,000 mL, at 100 mL/hr, Intravenous, CONTINUOUS, Starting on Tue09/17/19 at 0730, Until Tue09/17/19 at 1131, Day of Surgery (Day of Procedure) New Bag 09/17/2019 7:51 AM EST 1,000 mLs 100 mL/hr lidocaine-EPINEPHrine 1 %-1:100,000 injection ONCE PRN, Starting on Tue09/17/19 at 0916, Until Tue09/17/19 at 1336, Intra-Operative (Intra-Procedure), Routine Given 09/17/2019 9:16 AM EST 10 mLs 19- Surgical Site documented in this encounter Active and Recently Administered Medications Times are shown in EST. Scheduled Medication Order 09/15/2019 09/16/2019 09/17/2019 ceFAZolin (ANCEF) 2g in dextrose 5% 100 mL (COMPLETED) 2 g, Intravenous, ONCE, 1 dose, On Tue09/17/19 at 0815, Administer over 30 Minutes, Day of Surgery (Day of Procedure), Indication for (Active or Suspected): Prophylaxis 904 (Given - Provid er: Tayla Hernández CRNA) gabapentin (Neurontin) capsule 300 mg 300 mg, Oral, 3 TIMES DAILY, First dose on Tue09/17/19 at 0900, Until Discontinued, Routine 812 (Given - Provid er: Shital Lemon RN) Continuous Medication Order 09/15/2019 09/16/2019 09/17/2019 lactated ringers infusion (CANCELED) 1,000 mL, at 100 mL/hr, Intravenous, CONTINUOUS, Starting on Tue09/17/19 at 0730, Until Tue09/17/19 at 1131, Day of Surgery (Day of Procedure) 0751 ([facility] ider: Delia Gutierrez RN) PRN Medication Order 09/15/2019 09/16/2019 09/17/2019 acetaminophen (Tylenol) (32.02 mg/mL) oral liquid 650 mg 650 mg, Oral, EVERY 4 HOURS PRN, Starting on Tue09/17/19 at 0808, Until Tue09/17/19 at 1336, Fever, Maximum dose of acetaminophen is 4000 mg from all sources in 24 hours. Should be given concomitantly if other Analgesics are ordered., Routine acetaminophen (Tylenol) tablet 1,000 mg 1,000 mg, Oral, EVERY 6 HOURS PRN, Starting on Tue09/17/19 at 0737, Until Tue09/17/19 at 1336, Pain, Maximum dose of acetaminophen is 4000 mg from all sources in 24 hours., Routine 811 (Given - Provid er: Shital Lemon RN) BUpivacaine (PF) (MARCAINE) 0.25 % (2.5 mg/mL) injection (CANCELED) ONCE PRN, Starting on Tue09/17/19 at 0930, Until Tue09/17/19 at 1336, Intra-Operative (Intra-Procedure), Routine 0930 (Given - Provid er: Corby Curry MD) lidocaine-EPINEPHrine 1 %-1:100,000 injection (CANCELED) ONCE PRN, Starting on Tue09/17/19 at 0916, Until Tue09/17/19 at 1336, Intra-Operative (Intra-Procedure), Routine 0916 (Given - Provid er: Corby Curry MD) documented in this encounter Care Teams Woodenware Assembler Relationship Specialty Start Date End Date Lidia Benson, INFORMATION SECURITY SYSTEMS INSTRUCTOR [address] [place] [address] PCP - General Family Medicine 09/14/19 documented as of this encounter
--- OUTSIDE RECORDS SUMMARY | 2024-05-22 19:42 | XMS_ITS | Encounter Summary ---
Author Organization [facility] [place] [address] Care Team Providers Care Wellfield Technician Name Role Phone Lidia Benson APRN Primary Care Provider + [phone] Reason for Visit * Consultation (Routine) - Closed Specialty Diagnoses / Procedures Referred By Mateusz ibarra Referred To Contact Gastroenterology Diagnoses Elevated LFTs Upper abdominal pain Irritable bowel syndrome with diarrhea Hematochezia Angela Pizarro APRN [address] [place] [address] [facility] [address] [place] [address] Referral ID Status Reason Start Date Expiration Date V isits Requested Visits Authorized [id number] Closed Consult, Test & Treat 06/13/2018 06/13/2019 1 1 Encounter Details Date Type Department Care Team (Late st Contact Info) Description 06/28/2018 3:00 PM EDT Office [place] [address] Jimmy Calvillo PA [address] [place] [address] [place] [address] METZGER (nonalcoholic steatohepatitis) (Primary Dx); Vftan-2-wonvqsfccfw deficiency carrier; Abnormal LFTs Social History Tobacco Use Types Packs/Day Years [...] documented in this encounter Progress Notes * Jimmy Calvillo PA - 06/28/2018 3:00 PM EDT Gastroenterology and Hepatology Follow Up Note Patient: Shaneka Samano Sex: female : 1980 Provider: Jimmy Calvillo PA-C PCP: Lidia Benson APRN LIVER HISTORY Fatty liver, likely METZGER - Pre-existing on patient problem list at PCP office, no imaging available to show this (normal appearing liver on CT w/o 02/2018 @[facility]) - Abnormal LFTs through early 2017, most recent 06/13/18 @ include AST 90, ALT 109, ALP 190, TBIL0.2, ALB 4.0 (PLT 274) - Metabolic risk factors for METZGER: type 2 diabetes, obesity, hypothyroidism - Additional workup 06/13/18: ferritin 220, iron 73, TIBC 334, sat 22%, A1AT 77 (low), A1AT genotypeMZ, negative LUTHER, negative AMA, negative ASMA, negative [...] Amenorrhea N91.2 ??? Urinary frequency R35.0 ??? 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 Shaneka [...] a stool sample although has not done this yet, and is wondering if she can bring this to her local hospital. She was also supposed to arrange upper and lower endoscopies, although has not spoken with a train attendant about this yet. She does not remember much about our visit last time. She does know that she has a fatty liver. Shestates that her weight has been stagnant, no [...] of metformin. She knows she has hypothyroidism, andis wondering if she has sleep apnea. This is because she finds that she loses her breath at nighttime. She sometimes finds it hard to breathe and needs to gasp for air. She does not have any inhalersand denies any wheezing. For her schizoaffective disorder, she has been on multiple medications for several years. She has been on Depakote for about 10 years now. Her dose was recently increased to 2000 mg daily about 1 month ago. She previously was on 1500 mg for about 2 years. She sees a psychiatrist through [facility] (Terrence Jeronimo APRN). She denies any [...] She lives alone in an apartment in [place]. She is on disability. She is . [...] times daily as needed. 120 capsule3 ??? Blood-Glucose Meter Misc by Mis.(Non-Drug; Combo Route) route. ??? ARIPiprazole (ABILIFY MAINTENA) [...] liver function tests and prior history of fatty liver disease, although no imaging studies available to support this. She also has chronic diarrhea and recent issues of hematochezia and dysphagia, all of which she recently met with Angela Pizarro APRN in the GI motility clinic. She was then referred to me for a Fibroscan procedure for evaluation of fatty liver. This suggested moderate, stage 2/4 fibrosis, and high-grade steatosis. She has metabolic risk factors for [...] concentration of 77 mg/dL. On genotyping, she was found to be heterozygous for the Z allele (MZ genotype) for alpha-1 antitrypsin deficiency. Atthis stage, she is likely not to have [...] on this in more detail after liver biopsyis obtained. -Follow-up in GI clinic after endoscopic procedures. She is scheduled to see myself and Angela Pizarro APRN on 08/17/18. 58 of this 60 minute visit was in ilfc-kc-fwvr discussion regarding disease, prognosis and treatment. CECI Morley-C Section of [place]astroenterology [place] [address] Cc: Lidia Benson APRN @PCPADD@ documented in this encounter Plan of Treatment Not on file documented as of this encounter Visit Diagnoses Diagnosis METZGER (nonalcoholic steatohepatitis)- Primary Other chronic nonalcoholic liver disease Bggog-9-qwzfvnqpytw deficiency carrier Other genetic carrier status Abnormal LFTs Other abnormal blood chemistry documented in this encounter Care Teams Wellfield Technician Relationship Specialty Start Date End Date Lidia Benson APRN [address] [place] [address] PCP - General Family Medicine 02/28/18 08/23/19 documented as of this encounter
--- OUTSIDE RECORDS SUMMARY | 2024-05-22 19:42 | XMS_ITS | Encounter Summary ---
Author Organization [facility] [place] [address] Care Team Providers Care Wood Pattern Maker Name Role Phone RitaLidia chino SONG Primary Care Provider + [phone] Encounter Details Date Type Department Care Team (Latest Contact Info) Description 06/13/2018 3:00 PM EDT Procedure [place] [id number] Jimmy Calvillo PA [address] [place] [address] [place] [address] Fatty liver; Abnormal liver enzymes; Elevated LFTs; Upper abdominal pain; Irritable bowel syndrome with diarrhea; Hematochezia Social History Tobacco Use Types Packs/Day [...] EDT documented in this encounter Procedure Notes * Jimmy Calvillo PA - 06/13/2018 3:00 PM EDTAssociated Order(s): FIBROSCAN Procedure(s): FIBROSCAN Pre-Procedure Diagnose(s): Elevated LFTs; Upper abdominal pain; Irritable bowel syndrome with diarrhea; Hematochezia [facility] Liver Fibrosis Assessment Report Indication: Fatty liver, abnormal LFTs Performed by: CECI Mijares Procedure: Vibration Controlled Transient Elastography (VCTE) or Fibroscan [place] Protocol: Patient's identity, procedure and site were [...] 66% of hepatocytes. In coordination with Tuyet Juarez, we will order a full laboratory evaluation for abnormal LFTs and the patient will return for a consultation visit with me in the Hepatology clinic when results have returned. documented in this encounter Plan of Treatment Not on file documented as of this encounter Procedures Procedure Name Priority Date/Time Associated Diagnosis Comments [id number] Routine 06/13/2018 3:36 PM EDT Elevated LFTs Upper abdominal pain Irritable bowel syndrome with diarrhea Hematochezia documented in this encounter Results * [id number] (06/13/2018 3:36 PM EDT) Narrative Jimmy Calvillo PA - 06/13/2018 3:36 PM EDT Jimmy Calvillo PA ? 06/13/2018 ??3:36 PM [facility] Liver Fibrosis Assessment Report Indication: ?? Fatty liver, abnormal LFTs Performed by: ??CECI Mijares Procedure: Vibration Controlled Transient Elastography (VCTE) or Fibroscan [place] Protocol: Patient's identity, procedure and site were [...] than 66% of hepatocytes. In coordination with Ms. Pizarro, we will order a full laboratory evaluation for abnormal LFTs and the patient will return for a consultation visit with me in the Hepatology clinic when results have returned. Angela Pizarro APRN PROCEDURE/MINOR SURGICAL ORDERABLES documented in this encounter Visit Diagnoses Diagnosis Fatty liver Other chronic nonalcoholic liver disease Abnormal liver enzymes Other nonspecific abnormal serum enzyme levels Elevated LFTs Other abnormal blood chemistry Upper abdominal pain Abdominal pain, other specified site Irritable bowel syndrome with diarrhea Irritable bowel syndrome Hematochezia Blood in stool documented in this encounter Care Teams Wood Pattern Maker Relationship Specialty Start Date End Date Lidia Benson, PRODUCTION WEIGHER [address] [place] [address] PCP - General Family Medicine 02/28/18 08/23/19 documented as of this encounter
--- OUTSIDE RECORDS SUMMARY | 2024-05-22 19:42 | XMS_ITS | Encounter Summary ---
Author Organization [facility] [place] [address] Care Team Providers Care Design Engineer Name Role Phone Lidia Benson APRN Primary Care Provider + [phone] Encounter Details Date Type Department Care Team (Late st Contact Info) Description 02/23/2019 [place] [address] Filomena Leyva Social History Tobacco Use Types Packs/Day Years [...] encounter Miscellaneous Notes * Telephone Encounter - Filomena Leyva - 02/23/2019 11:53 AM EDT Shaneka Samano [id number] Diagnosis: EGD/ COLO 1. Have you ever had a EGD/colonoscopy before? [] YES [x] NO If Yes, Date of Last EGD/[employer]: If yes, did you have any problems with the procedure? [] YES [x] NO Explain: What type of sedation was used: 2. Do you take any Blood Thinners? [] YES [x] NO If Yes, type: 3. Do you have a Pacemaker or Defibrillator device? [] YES [x] NO If Yes send inNeolane message to [facility] ENDO DEVICE CHECK 4. [...] NO 11. You must have a responsible republican stay at the facility during your procedure and drive you home? [x] YES 12. Is there any other information you would like to give us to aid in scheduling? Height: __5'3___ Weight:_195__ BMI: _34.5___ Age:38 y.o. documented in this encounter Plan of Treatment Not on file documented as of this encounter Visit Diagnoses Not on filedocumented in this encounter Care Teams Design Engineer Relationship Specialty Start Date End Date Lidia Benson APRN [address] [place] [address] PCP - General Family Medicine 02/28/18 08/23/19 documented as of this encounter
--- OUTSIDE RECORDS SUMMARY | 2024-05-22 19:42 | XMS_ITS | Encounter Summary ---
Author Organization [facility] [place] [address] Care Team Providers Care Head Of Product Name Role Phone Lidia Benson APRN Primary Care Provider + [phone] Encounter Details Date Type Department Care Team (Late st Contact Info) Description 07/04/2018 Telephone Gastroenterology at [facility] [place] [phone] Vishal Majano Social History Tobacco Use Types Packs/Day Years [...] encounter Miscellaneous Notes * Telephone Encounter - Vishal Majano - 07/04/2018 [...] on filedocumented in this encounter Care Teams Head Of Product Relationship Specialty Start Date End Date Lidia Benson APRN [address] [place] [address] PCP - General Family Medicine 02/28/18 08/23/19 documented as of this encounter
--- OUTSIDE RECORDS SUMMARY | 2024-05-22 19:42 | XMS_ITS | Encounter Summary ---
Author Organization [facility] [place] [address] Care Team Providers Care Road Oiler Name Role Phone JarrettLidia silva SONG Primary Care Provider + [phone] Encounter Details Date Type Department Care Team (Late st Contact Info) Description 10/20/2018 External Results Gastroenterology at [facility] [place] [id number] Jimmy Calvillo PA [address] [place] [address] [place] [address] Social History Tobacco Use Types Packs/Day Years [...] LAB CBC CMP THYROID RESULTS PANEL Routine 08/31/2018 documented in this encounter Results * CBC / CMP / Thyroid External Results (08/31/2018) Sodium 136 Potassium 3.7 Chloride 97 Carbon Dioxide 27 Blood Urea Nitrogen 16 Creatinine 0.65 Glucose 277 Calcium 9.1 Protein, Total 7.3 Albumin 3.3 Bilirubin, Total 0.2 Alkaline Phosphatase 229 Aspartate Aminotransferase 36 Alanine Aminotransferase 101 08/31/2018 Historical Provider EXTERNAL LAB MARSHALL VILLARREAL documented in this encounter Visit Diagnoses Not on filedocumented in this encounter Care Teams Road Oiler Relationship Specialty Start Date End Date Lidia Benson, DELI WORKER [address] [facility] [place] [address] PCP - General Family Medicine 02/28/18 08/23/19 documented as of this encounter
--- OUTSIDE RECORDS SUMMARY | 2024-05-22 19:42 | XMS_ITS | Encounter Summary ---
Author Organization [facility] [place] [address] Care Team Providers Care Account Management Specialist Name Role Phone Lidia Benson APRN Primary Care Provider + [phone] Reason for Visit * Auth/Cert Specialty Diagnoses / Procedures Referred By Mateusz ibarra Referred To Contact Diagnoses implant deflation left breast Procedures PRO REMOVAL OF BREAST IMPLANT PRO REMOVAL OF BREAST CAPSULE REMOVAL OF INTACT MAMMARY IMPLANT (WRVU 6.48) BREAST, PERIPROSTHETIC CAPSULECTOMY (WRVU 10.62) Referral ID Status Reason Start Date Expiration Date Visits Re quested Visits Authorized [id number] 1 1 Encounter Details Date Type Department Care Team (Latest Contact Info) Description 09/17/2019 7:02 AM EST - 09/17/2019 11:32 AM EST Hospital Encounter Outpatient [place] [address] Corby Curry MD [facility] [place] [address] Discharge Disposition: Home Social History Tobacco Use [...] AM ES T Respiratory Rate 16 09/17/2019 11:15 AM EST [...] closest emergency room or call the hospital barrel rib matting machine operator at [phone] and ask for physician application support intern covering for your physician. Questions or problems after 5pm or on a weekend: Call the [facility] barrel rib matting machine operator at and ask for the physician application support intern covering for your doctor. * Patient Instructions* Cheri Braxton, VP LEGAL AFFAIRS - 09/17/2019 10:37 AM EST Images from the original note were not included. Discharge instructions: ?? The healing process after breast reduction surgery varies with each person. You should expect tofeel tired for the first 2 - 3 weeks due to anesthesia and the healing process. Rest often during the day and get a good night sleep. Pain (short term and ferry terminal agent) ?? With any surgery there is some [...] scheduling, please contact our administrative offices at [phone] ?? For clinical questions, please call our nurses at [phone] ?? Both offices are open Tuesday thru Tuesday 8a - 5p. With emergencies after hours, call the hospital barrel rib matting machine operator at [phone] and ask for the Plastic Surgery Resident application support intern. DENNIS DRAIN CARE INSTRUCTIONS General Information: Drains [...] 11:00 AM NURSE, PLASTIC SURGERY [facility] [address] [place] [address] documented in this encounter Medications at Time [...] by mouth daily. 06/01/2018 lancets Misc by [facility]Non-Drug; Combo Route) route. Blood-Glucose Meter Misc by [facility]Non-Drug; Combo Route) route. ARIPiprazole (ABILIFY MAINTENA) 400 [...] Operative Note Patient Name: Shaneka Samano : [id number] MR#: [id number] Case Date: 09/17/2019 Surgeon: Surgeon(s) and Role: [...] fitting, review post-op activity restrictions 6 months: halfway f/u with surgeon Future Appointments Date Time Provider Department Center 09/25/2019 11:00 AM NURSE, PLASTIC SURGERY [facility] * Op Note - Corby Curry MD - 09/17/2019 10:12 AM EST [facility] Operative Note Patient Name: Shaneka Samano : [id number] MR#: [id number] Case Date: 09/17/2019 Surgeon: Surgeon(s) and Role: [...] implant rather than going through the area Lee scar which she had had previously with [...] 11:03 AM EST Removal Of Implant Material (30209) 09/17/2019 8:58 AM EST implant deflation left [...] Given 09/17/2019 8:12 AM EST 1,000 mg gabapentin (Neurontin) capsule 300 mg 300 mg, Oral, 3 TIMES DAILY, First dose on Tue09/17/19 at 0900, Until Discontinued, Routine Given 09/17/2019 8:13 AM EST 300 mg lactated ringers infusion 1,000 mL, at 100 mL/hr, Intravenous, CONTINUOUS, Starting on Tue09/17/19 at 0730, Until Tue09/17/19 at 1131, Day of Surgery (Day of Procedure) New Bag 09/17/2019 7:51 AM EST 1,000 mLs 100 mL/hr documented in this encounter Active and Recently [...] on Tue09/17/19 at 0900, Until Discontinued, Routine 0813 (Given - Provid er: Shital Lemon RN) Continuous Medication Order 09/15/2019 09/16/2019 09/17/2019 lactated ringers infusion (CANCELED) 1,000 mL, at 100 mL/hr, Intravenous, CONTINUOUS, Starting on Tue09/17/19 at 0730, Until Tue09/17/19 at 1131, Day of Surgery (Day of Procedure) 0751 (New Bag - Prov ider: Delia Gutierrez RN) PRN Medication Order [...] Until Tue09/17/19 at 1336, Intra-Operative (Intra-Procedure), Routine 929 (Given - Provid er: Corby Curry MD) lidocaine-EPINEPHrine 1 %-1:100,000 injection (CANCELED) ONCE PRN, Starting on Tue09/17/19 at 0916, Until Tue09/17/19 at 1336, Intra-Operative (Intra-Procedure), Routine 915 (Given - Provid er: Corby Curry MD) documented in this encounter Care Teams Account Management Specialist Relationship Specialty Start Date End Date Lidia Benson, VP LEGAL AFFAIRS [address] [place] [address] PCP - General Family Medicine 09/14/19 documented as of this encounter
--- OUTSIDE RECORDS SUMMARY | 2024-05-22 19:42 | XMS_ITS | Clinical Summary ---
Author Organization [facility] Address [facility] [place] [address] Care Team Providers Care Resin Mixer Name Role Phone Kelley Lidia ZULETA Primary Care Provider + [phone] Allergies Active Allergy Reactions Criticality Noted Date Comments Codeine 07/13/2019 Gabapentin Other (See Comments) 02/19/2020 Restless legs Oxycodone-Acetaminophe n 12/09/2016 Oxycodone-Acetaminophe n 02/20/2017 Patient cannot remember reaction, but states it was mild Medications Medication Sig Dispensed Refills Start Date End Date Status levothyroxine (SYNTHROID) 25 mcg TabletIndications: unknown dose Take by mouth daily. Indications: unknown dose Active ARIPiprazole (ABILIFY MAINTENA) 400 mg Suspension,Sust.Re lease Recon Inject 2 mLs into the muscle every 30 days. 1 each 03/03/2017 Active lancets Misc by [facility]Non-Drug; Combo Route) route. Active Blood-Glucose Meter Misc by [facility].(Non-Drug; Combo Route) route. Active LYRICA 50 mg Capsule Take 50 mg by mouth 2 times daily. 05/30/2018 Active divalproex (DEPAKOTE) 500 mg Tablet, Delayed Release (E.C.) Take 2,000 mg by mouth daily. 06/01/2018 Active benztropine (COGENTIN) 1 mg Tablet TAKE ONE TABLET BY MOUTH EVERY NIGHT 3 07/05/2019 Active ARISTADA 882 mg/3.2 mL suspension,extende d rel syring INJECT INTRAMUSCULARLY EVERY 4 WEEKS 2 06/22/2019 Active BYDUREON 2 mg/0.65 mL Pen Injector INJECT 2MG SUBCUTANEOUSLY ONCE A WEEK 3 06/27/2019 Active OLANZapine (ZYPREXA) 10 mg Tablet TAKE ONE TABLET BY MOUTH AT BEDTIME 2 06/21/2019 Active gabapentin (NEURONTIN) 300 mg Capsule Take 300 mg by mouth 3 times daily. Active insulin detemir U-100 (LEVEMIR) Solution Inject 16 Units subcutaneously nightly. 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 Schizoaffective disorder 02/21/2017 Fall 02/19/2017 Schizophrenia 12/09/2016 Social History Tobacco Use Types Packs/Day Years Used Date Smoking Tobacco: Every Day Cigarettes 0.5 1 Smokeless Tobacco: Never Tobacco Cessation:Ready to Q uit: No; Counseling Given: No Comments:smokes 1-2 cigarettes a day Alcohol Use Standard Drinks/Week Comments No 0 (1 standard drink = 0.6 oz pur e alcohol) Sex and Gender Information Value Date Recorded Sex Assigned at Not on file Gender Identity Not on file Sexual Orientation Not on file Last Filed Vital Signs Vital Sign Reading [...] Mass Index 34.54 09/17/2019 7:14 AM EST Plan of Treatment Health Maintenance Due Date Last Done Comments DM Opthalmology Exam 1990 DM Urine Microalbumin yearly 1990 Lipid Screening 1998 Tdap adult 1999 Tetanus vaccine 1999 HPV test 2010 PAP Smear 2010 DM Hemoglobin A1c 05/31/2017 02/28/2017 DM Creatinine yearly 08/31/2019 08/31/2018, 06/13/2018, 02/28/2017, Additional history exists Breast Cancer Share Decision Needed 2020 Breast Cancer screening 2020 Covid-19 Vaccine (1 - 2022-2 4 season) 2024 Influenza (Flu) vaccine (1 o f 1 - Influenza standard series) 05/06/2024 HIV screen Completed 06/13/2018 Hepatitis C Screening Completed 06/13/2018 Procedures Procedure Name Priority Date/Time Associated Diagnosis Comments EXTERNAL LAB CBC CMP THYROID RESULTS PANEL Routine 08/31/2018 HIV SCREEN, 4TH GENERATION ([facility]/CGP/APD/[facility]) Routine 06/13/2018 3:46 PM EDT Upper abdominal pain Elevated LFTs HEPATITIS C ANTIBODY Routine 06/13/2018 3:46 PM EDT Upper abdominal pain Elevated LFTs HEMOGLOBIN A1C Routine 02/28/2017 9:23 PM EDT from Last 3 Months or Most Recently Relevant to Health Maintenance Results * CBC / CMP / Thyroid External Results (08/31/2018) Sodium 136 Potassium 3.7 Chloride 97 Carbon Dioxide 27 Blood Urea Nitrogen 16 Creatinine 0.65 Glucose 277 Calcium 9.1 Protein, Total 7.3 Albumin 3.3 Bilirubin, Total 0.2 Alkaline Phosphatase 229 Aspartate Aminotransferase 36 Alanine Aminotransferase 101 08/31/2018 Historical Provider EXTERNAL LAB MARSHALL VILLARREAL * Hepatitis C Antibody (06/13/2018 3:46 PM EDT) Hepatitis C Antibody Negative Negative [facility] Blood specimen (specimen) 06/13/2018 3:46 PM EDT 06/13/2018 3:50 PM EDT Narrative Resulting Agency Comment Spec In Lab Agnela Pizarro APRN CHEMISTRY ORDERA BLES Performing Organization Address [facility] Co de Phone Number [facility] [place] [address] * HIV Screen, 4th Generation (06/13/2018 3:46 PM EDT) Pathologist [facility] HIV Ab/Ag Screen Negative Negative [facility] Comment: This 4th Generation [...] In Lab Angela Pizarro APRN CHEMISTRY ORDERA TONYS Performing Organization Address [facility] Co de Phone Number [facility] [place] [address] * (ABNORMAL) Hemoglobin A1c (02/28/2017 9:23 PM EDT) [facility] Hemoglobin A1c 5.8(H) 4.3 - 5.6 % [facility] Comment: Reference Range: 4.3 - 5.6% 5.7 - 6.4% - Increased Risk of Developing Diabetes Mellitus >=6.5% - Consistent with diagnosis of Diabetes Mellitus In the absence of hyperglycemia (i.e. plasma glucose > 200 mg/dL) or classic symptoms of hyperglycemia a repeat measurement of HbA1c should be performed on a separate sample to confirm the diagnosis. Diagnosis and Classification of Diabetes Mellitus, Diabetes Care 2013; 36: Suppl. 1, S67-74 Estimated Average Glucose 120 mg/dL [facility] Comment: eAG equivalents for HbA1c percentages: HbA1c(%) ?eAG(mg/dL) 6.0 ?126 6.5 ?140 7.0 ?154 7.5 ?169 8.0 ?183 8.5 ?197 9.0 ?212 9.5 ?226 10.0 ? 240 Limitations: The eAG calculation has not been validated on women, individuals below 18 years old and above 70 years old, and individuals with hemoglobinopathies. Additional resources are available on the ADA website. Jl HOLCOMB, Cem J, Tan R, et al. ??Translating the A1C assay into estimated average glucose values. ??Diabetes Care 2008:31(8):7075-1090. Blood specimen (specimen) 02/28/2017 9:23 PM EDT 02/28/2017 9:32 PM EDT Narrative Resulting Agency Comment Spec In Lab Deshaun Noble MD CHEMISTRY ORDERABLE S [facility] [place] [address] from Last 3 Months or Most Recently Relevant to Health Maintenance Advance Directives * Full Code (Latest Code Status on File) Date Activated Date Inactivated Comments 09/17/2019 7:37 AM 09/17/2019 1:41 PM Question Answer Comments Does patient have capacity to make decision: Yes * Full Code Date Activated Date Inactivated Comments 02/21/2017 4:23 PM 03/03/2017 3:50 PM Question Answer Comments Does patient have capacity to make decision: Yes * Full Code Date Activated Date Inactivated Comments 02/19/2017 11:13 PM 02/21/2017 4:23 PM Question Answer Comments Does patient have capacity to make decision: Yes * Full Code Date Activated Date Inactivated Comments 12/09/2016 6:37 AM 12/10/2016 3:34 PM Question Answer Comments Does patient have capacity to make decision: Yes Care Teams Resin Mixer Relationship Specialty Start Date End Date Lidia Benson APRN [address] [facility] [place] [address] PCP - General Family Medicine 09/14/19
--- OUTSIDE RECORDS SUMMARY | 2024-05-22 19:42 | XMS_ITS | Encounter Summary ---
Author Organization [facility] [place] [address] Care Team Providers Care Colliery Clerk Name Role Phone Lidia Benson APRN Primary Care Provider + [phone] Reason for Visit * Reason Comments Follow Up Surgery s/p left breast impl ant removal with capsulectomy Encounter Details Date Type Department Care Team (Latest Contact Info) Description 09/27/2019 2:00 PM EST Clinical Support [place] [address] Surgery follow-up Social History Tobacco Use Types Packs/Day Years [...] documented as of this encounter Patient Instructions * Patient Instructions* Aurelia Hernández RN - 09/27/2019 2:00 PM [...] symptoms please call our nurse's line at [phone] M - F 8 - 5 For after hours, and on weekends; Call [phone] and ask for our plastic surgeon farm labor contractor documented in this encounter Progress Notes * Aurelia Hernández RN - 09/27/2019 2:00 PM [...] Surgery follow-up Follow-up examination, following unspecified surgery documented in this encounter Care Teams Colliery Clerk Relationship Specialty Start Date End Date Lidia Benson APRN [address] [place] [address] PCP - General Family Medicine 09/14/19 documented as of this encounter
--- OUTSIDE RECORDS SUMMARY | 2024-05-22 19:42 | XMS_ITS | Encounter Summary ---
Author Organization [facility] [place] [address] Care Team Providers Care Veterinary Practice Manager Name Role Phone Kelley Lidia ZULETA Primary Care Provider + [phone] Encounter Details Date Type Department Care Team (Late st Contact Info) Description 12/06/2019 Telephone Neurosurgery at [facility] [place] [phone] Savana White Social History Tobacco Use Types Packs/Day Years [...] encounter Miscellaneous Notes * Telephone Encounter - Savana White - 12/27/2019 8:14 AM EDT Rcvd return 2nd request fax back informing images were sent on 12/19/2019 MRI Head completed 03/06/19 uploaded 12/26/2019 Images are in eDH for JPA review ~~~~~~~~~~~~~~~~~~~~~~~~~~~~~~~~~~~~~~~~~~~~~~ Dr. Galindo, MRI Head completed 03/06/19 at [facility] is in eDH for your review. Pt was scheduled w Dr. Hewitt for a 5/5 appt but has since declined appt. Thank you. Jade * Telephone Encounter - Savana White - 12/26/2019 3:59 PM EDT Faxed 2nd request for MRI Brain to [facility] [[phone]] * Telephone Encounter - Yokasta Hollingsworth - 12/26/2019 10:32 AM EDT Imaging not received, need to refax request. * Telephone Encounter - Yokasta Hollingsworth - 12/19/2019 1:29 PM EDT Faxed image request to [facility] ([phone]). Postponing to allow time for processing. * Telephone Encounter - Savana White - 12/06/2019 3:17 PM EDT ----- Message from Ankur Galindo MD sent at 12/06/2019 12:03 PM EDT ----- Need to obtain MRI images from [facility] (MRI brain), and then has been referred to rad onc. documented in this encounter Plan of Treatment Not on file documented as of this encounter Visit Diagnoses Not on filedocumented in this encounter Care Teams Veterinary Practice Manager Relationship Specialty Start Date End Date Lidia Benson, HOSTEL PARENT [address] [place] [address] PCP - General Family Medicine 09/14/19 documented as of this encounter
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
--- OUTSIDE RECORDS SUMMARY | 2024-05-22 19:42 | XMS_ITS | Encounter Summary ---
Author Organization [facility] [place] [address] Care Team Providers Care Stope Miner Name Role Phone Lidia Benson APRN Primary Care Provider + [phone] Encounter Details Date Type Department Care Team (Late st Contact Info) Description 06/30/2018 Tele[place] [address] Paula Alcala Social History Tobacco Use Types Packs/Day Years [...] encounter Miscellaneous Notes * Telephone Encounter - Paula Alcala - 06/30/2018 3:33 PM EDT Shaneka Samano [id number] Diagnosis: Upper endoscopy /Upper EUS/Liver Biopsy and Colonoscopy 1. Have you ever had a colonoscopy before? [] YES [x] NO If Yes, Date of Last [place]: If yes, did you have any problems with the procedure? [] YES [] NO Explain: What type of sedation was used: 2. Do you take any Blood Thinners? [] YES [x] NO If Yes, type: 3. Do you have a Pacemaker or Defibrillator device? [] YES [x] NO If Yes send inTrempstar Tactical message to [employer] ENDO DEVICE CHECK 4. Are you a [...] on filedocumented in this encounter Care Teams Stope Miner Relationship Specialty Start Date End Date Lidia Benson APRN [address] [place] [address] PCP - General Family Medicine 02/28/18 08/23/19 documented as of this encounter
--- OUTSIDE RECORDS SUMMARY | 2024-05-22 19:42 | XMS_ITS | Encounter Summary ---
Author Organization [facility] [place] [address] Care Team Providers Care Billiard Player Name Role Phone Lidia Benson APRN Primary Care Provider + [phone] Encounter Details Date Type Department Care Team (Late st Contact Info) Description 10/23/2018 Orders Only [facility]ology [facility] [place] [phone] Jimmy Calvillo PA [address] [place] [address] [place] [address] Abnormal LFTs (liver function tests) Social History Tobacco Use Types Packs/Day Years [...] chemistry documented in this encounter Care Teams Billiard Player Relationship Specialty Start Date End Date Lidia Benson APRN [address] [place] [address] PCP - General Family Medicine 02/28/18 08/23/19 documented as of this encounter
--- OUTSIDE RECORDS SUMMARY | 2024-05-22 19:42 | XMS_ITS | Encounter Summary ---
Author Organization [facility] [place] [address] Care Team Providers Care Manager Pricing Name Role Phone Lidia Benson APRN Primary Care Provider + [phone] Encounter Details Date Type Department Care Team (Late st Contact Info) Description 10/16/2018 Orders Only Gastroenterology at [facility] [place] [phone] Jimmy Calvillo PA [address] [place] [address] [place] [address] Abnormal liver function tests Social History Tobacco Use Types Packs/Day Years [...] of this encounter Visit Diagnoses Diagnosis Abnormal liver function tests Other abnormal blood chemistry documented in this encounter Care Teams Manager Pricing Relationship Specialty Start Date End Date Lidia Benson APRN [address] [place] [address] PCP - General Family Medicine 02/28/18 08/23/19 documented as of this encounter
--- OUTSIDE RECORDS SUMMARY | 2024-05-22 19:42 | XMS_ITS | Encounter Summary ---
Author Organization [facility] [place] [address] Care Team Providers Care Director Of Mechanical Engineering Name Role Phone Lidia Benson APRN Primary Care Provider + [phone] Encounter Details Date Type Department Care Team (Late st Contact Info) Description 03/23/2018 Tele[place] [phone] Shruthi Fisher Social History Tobacco Use Types Packs/Day Years [...] encounter Miscellaneous Notes * Telephone Encounter - Shruthi Fisher - 03/23/2018 11:53 AM EDT lvm for pt to plz call back- (need to rearrange the schedule a bit- needs to see Angela at 1 and then Emilia- appts shown are updated & correct- pt needs to confirm) documented in this encounter Plan of Treatment Not on file documented as of this encounter Visit Diagnoses Not on filedocumented in this encounter Care Teams Director Of Mechanical Engineering Relationship Specialty Start Date End Date Lidia Benson APRN [address] [place], [place] [id number] PCP - General Family Medicine 6/26/18 12/19/19 documented as of this encounter
--- OUTSIDE RECORDS SUMMARY | 2024-05-22 19:42 | XMS_ITS | Encounter Summary ---
Author Organization [facility] [place] [address] Care Team Providers Care Saturator Operator Name Role Phone Lidia Benson APRN Primary Care Provider + [phone] Encounter Details Date Type Department Care Team (Late st Contact Info) Description 07/18/2018 Telephone [place] [phone] Toan Mena Social History Tobacco Use Types [...] on filedocumented in this encounter Care Teams Saturator Operator Relationship Specialty Start Date End Date Lidia Benson APRN [address] [place], [place] [id number] PCP - General Family Medicine 02/28/18 08/23/19 documented as of this encounter
--- OUTSIDE RECORDS SUMMARY | 2024-05-22 19:42 | XMS_ITS | Encounter Summary ---
Author Organization [facility] [place] [address] Care Team Providers Care Extruder Operator Name Role Phone Lidia Benson SLIDE FASTENER CHAIN ASSEMBLER Primary Care Provider + [phone] Encounter Details Date Type Department Care Team (Late st Contact Info) Description 12/08/2018 2:15 PM EDT Ancillary Procedure Radiology Library at [facility] [place] [place] [address] Alan Longo III, MD [facility] [place] [address] Social History Tobacco Use Types Packs/Day Years [...] Associated Diagnosis Comments FILM LIBRARY STORAGE ONLY CT SPINE Routine 12/08/2018 2:11 PM EDT documented in this encounter Results * Film Library- Storage Only CT Spine (12/08/2018 2:11 PM EDT) Narrative [facility] - 12/08/2018 2:11 PM EDT This exam is auto-finalizing. It's purpose is for storage only. Alan Longo III, MD IM FILM LIBRARY ORDERABLES DH RAD [place], [place] documented in this encounter Visit Diagnoses Not on filedocumented in this encounter Care Teams Extruder Operator Relationship Specialty Start Date End Date Lidia Benson, SONG [address] [place] [address] PCP - General Family Medicine 02/28/18 08/23/19 documented as of this encounter
--- OUTSIDE RECORDS SUMMARY | 2024-05-22 19:42 | XMS_ITS | Encounter Summary ---
Author Organization [facility] [place] [address] Care Team Providers Care Call Circuit Worker Name Role Phone Lidia Benson APRN Primary Care Provider + [phone] Encounter Details Date Type Department Care Team (Late st Contact Info) Description 06/28/2018 [place] [phone] Paula Alcala Social History Tobacco Use Types [...] * Telephone Encounter - Paula Alcala - 06/28/2018 4:54 PM EDT With patient at my desk, I booked procedures requested by Hanh. I also booked the coordinated office visits in August. Patient given her information at my desk. documented in this encounter Plan of Treatment Not on file documented as of this encounter Visit Diagnoses Not on filedocumented in this encounter Care Teams Call Circuit Worker Relationship Specialty Start Date End Date Lidia Benson APRN [address] [place] [address] PCP - General Family Medicine 02/28/18 08/23/19 documented as of this encounter
--- OUTSIDE RECORDS SUMMARY | 2024-05-22 19:42 | XMS_ITS | Encounter Summary ---
Author Organization [facility] [place] [address] Care Team Providers Care Garbage Collector Supervisor Name Role Phone Lidia Benson APRN Primary Care Provider + [phone] Encounter Details Date Type Department Care Team (Late st Contact Info) Description 03/06/2019 Ancillary Procedure Radiology Library at [facility] [place] [phone] Lidia Benson APRN [address] [place] [address] [place] [address] Social History Tobacco Use Types Packs/Day Years [...] Associated Diagnosis Comments FILM LIBRARY STORAGE ONLY MR HEAD Routine 03/06/2019 12:00 AM EDT documented in this encounter Results * Film Library- Storage Only MR Head (03/06/2019 12:00 AM EDT) Narrative [facility] - 12/26/2019 5:08 PM EDT This exam is auto-finalizing. It's purpose is for storage only. Lidia Benson APRN G FILM LIBRARY ORD ERABLES DH [place], [place] documented in this encounter Visit Diagnoses Not on filedocumented in this encounter Care Teams Garbage Collector Supervisor Relationship Specialty Start Date End Date Lidia Benson, SONG [address] [place] [address] PCP - General Family Medicine 02/28/18 08/23/19 documented as of this encounter
--- OUTSIDE RECORDS SUMMARY | 2024-05-22 19:42 | XMS_ITS | Encounter Summary ---
Author Organization [facility] [place] [address] Care Team Providers Care Mainspring Former Arbor End Name Role Phone Lidia Benson APRN Primary Care Provider + [phone] Encounter Details Date Type Department Care Team (Late st Contact Info) Description 10/05/2019 Telephone Gastroenterology at [facility] [place] [phone] Alannah Bowles Social History Tobacco Use Types Packs/Day Years [...] encounter Miscellaneous Notes * Telephone Encounter - Alannah Bowles - 10/05/2019 2:49 PM EST Called pt because we received a referral for her to be seen, but she is a current pt of Jimmy Calvillo. Offering to help pt schedule a follow up with Dan. Perez for call back. documented in this encounter Plan of Treatment Not on file documented as of this encounter Visit Diagnoses Not on filedocumented in this encounter Care Teams Mainspring Former Arbor End Relationship Specialty Start Date End Date Lidia Benson APRN [address] [place], [place] [id number] PCP - General Family Medicine 09/14/19 documented as of this encounter
--- OUTSIDE RECORDS SUMMARY | 2024-05-22 19:42 | XMS_ITS | Encounter Summary ---
Author Organization [facility] [place] [address] Care Team Providers Care General Service Technician Name Role Phone KelleyLidia SONG Primary Care Provider + [phone] Encounter Details Date Type Department Care Team (Late st Contact Info) Description 12/08/2018 Notes Only [place] [phone] Cher Osman MD [facility] [place] [address] Social History Tobacco Use Types Packs/Day Years [...] as of this encounter Progress Notes * Cher Osman MD - 12/08/2018 3:03 PM EDT Called by transfer center regarding patient who has history of schizophrenia and developmental delay and presented after she thought there was an [...] discharge her on antibiotics such as Augmentin for at least 10 days and the ED will have her follow-up with local ENT on upcoming Tuesday. Noindication for foreign body removal. I reviewed the scan with the on-call attending Dr. Alan Longo. Cher Osman MD documented in this encounter Plan of Treatment Not on file documented as of this encounter Visit Diagnoses Not on filedocumented in this encounter Care Teams General Service Technician Relationship Specialty Start Date End Date Lidia Benson, SONG [address] [place] [address] PCP - General Family Medicine 02/28/18 08/23/19 documented as of this encounter
--- OUTSIDE RECORDS SUMMARY | 2024-05-22 19:42 | XMS_ITS | Encounter Summary ---
Author Organization [facility] [place] [address] Care Team Providers Care Metal Burrer Name Role Phone Kelley Lidia ZULETA Primary Care Provider + [phone] Encounter Details Date Type Department Care Team (Late st Contact Info) Description 12/27/2019 Telephone [place] [address] Ankur Galindo MD [facility] [address] [place] [address] Social History Tobacco Use Types Packs/Day Years [...] encounter Miscellaneous Notes * Telephone Encounter - Ankur Galindo MD - [...] face documented in this encounter Care Teams Metal Burrer Relationship Specialty Start Date End Date Lidia Benson, SONG [address] [place] [address] PCP - General Family Medicine 09/14/19 documented as of this encounter
--- OUTSIDE RECORDS SUMMARY | 2024-05-22 19:43 | XMS_ITS | Encounter Summary ---
Author Organization [facility] Address [address] [place] [address] Care Team Providers Care School Leader Name Role Phone Lidia Benson INFORMATION SERVICES VICE PRESIDENT Primary Care Provider [phone] Adelina Baca INFORMATION SERVICES VICE PRESIDENT Primary Care Provider [phone] Antoni Ohara DO Primary Care Provider [phone] Encounter Details Date Type Department Care Team (Late st Contact Info) Description 01/07/2021 Lab Requisition [facility] Pathology & Laboratory Medicine - [facility] [address], [place] [address] Outr Resulting Lab, Provider Social History Tobacco Use Types Packs/Day Years Used Date Smoking Tobacco: Former Cigarettes 1 5 0 09/05/2009 - 09/05/2014 Alcohol Use Standard Drinks/Week Comments Not Asked 0 (1 standard drink = 0.6 oz pur e alcohol) Interpersonal Safety Answer Date Record ed Physically Hurt Never 04/06/2020 Verbally Threaten Not on file 04/06/2020 Sex and Gender Information Value Date Recorded Sex Assigned at Not on file Gender Identity Not on file Sexual Orientation Not on file documented as of this encounter Plan of Treatment Not on file documented as of this encounter Procedures Procedure Name Priority Date/Time Associated Diagnosis Comments PROLACTIN Routine 01/07/2021 10:00 EDT LH Routine 01/07/2021 10:00 EDT FSH Routine 01/07/2021 10:00 EDT CORTISOL Routine 01/07/2021 10:00 EDT documented in this encounter Results * LH (01/07/2021 10:00 EDT) Pathologist [facility] Luteinizing Hormone 10.9 See Note mIU/mL 01/07/2021 17:45 EDT [facility] Comment: NOTE: Female Reference Ranges: Pre-Pubertal: ?<6.0 mIU/mL Menstruating: Follicular Phase(-12 to -4 days: ??1.9 - 12.5 mIU/mL Midcycle(-3 to +2 days): ?8.7 - 76.3 mIU/mL Luteal Phase(+4 to +12 days): ? 0.5 - 16.9 mIU/mL Post Menopausal: 15.9 - 54.0 mIU/mL Blood VENOUS BLOOD / Unknown 01/07/2021 10:00 EDT 01/07/2021 16:01 EDT Provider Outr Resulting Lab CHEMISTRY & BLOOD GAS ORDERABLES [facility] [address] [place] [address] * FSH (01/07/2021 10:00 EDT) [facility] FSH 4.9 See Note mIU/mL 01/07/2021 17:44 EDT [facility] Blood VENOUS BLOOD / Unknown 01/07/2021 10:00 EDT 01/07/2021 16:01 EDT Narrative [facility] - 01/07/2021 17:44 EDT NOTE: Female FSH Reference Ranges (>= 13 Menstruating): PHYSIOLOGICAL STATUS ? REFERENCE RANGE ? Follicular (-12 to -4 days): ?? 2.5 - 10.2 mIU/mL Midcycle (-3 to +2 days): ?3.4 - 33.4 mIU/mL Luteal (+4 to +12 days): ? 1.5 - 9.1 mIU/mL Postmenopausal: ?23.0 - 116.3 mIU/mL Reference Ranges for female patients <13 years old have not been established. Provider Outr Resulting Lab CHEMISTRY & BLOOD GAS ORDERABLES [facility] [address] [place] [address] * PROLACTIN (01/07/2021 10:00 EDT) [facility] Prolactin 7.5 See Table ng/mL 01/07/2021 17:45 EDT [facility] Comment: NOTE: Female Reference Ranges: PHYSIOLOGICAL STATUS ?EXPECTED RANGE ? Postmenopausal ?1.8 - 20.3 ng/mL ?9.7 - 208.5 ng/mL Non- ?2.8 - 29.2 ng/mL Reference Ranges for Prolactin in female patients <18 years old have not been established. Blood VENOUS BLOOD / Unknown 01/07/2021 10:00 EDT 01/07/2021 16:01 EDT Provider Outr Resulting Lab CHEMISTRY & BLOOD GAS ORDERABLES Performing Organization Address City/[facility]/ZIP Co de Phone Number [facility] [address] [place] [address] * CORTISOL (01/07/2021 10:00 EDT) Cortisol 10 See Note ug/dL 01/07/2021 16:52 EDT [facility] Comment: NOTE: Reference Ranges (from [facility]): Collected Before 10:00 AM: ??4 - 23 ug/dL Collected After 5:00 PM: ?2 - 14 ug/dL The results of this assay can be falsely elevated due to the consumption of Biotin. Blood VENOUS BLOOD / Unknown 01/07/2021 10:00 EDT 01/07/2021 16:01 EDT Provider Outr Resulting Lab CHEMISTRY & BLOOD GAS ORDERABLES Performing Organization Address [facility] Co de Phone Number [facility] [address] [place] [address] documented in this encounter Visit Diagnoses Not on filedocumented in this encounter Care Teams School Leader Relationship Specialty Start Date End Date Lidia Benson NP [address] [place] [address] PCP - General 09/27/17 03/29/22 Adelina Baca NP [address] [place] [address] PCP - General Family Medicine - Primary Care 03/30/22 05/08/24 Antoni [place] [address] [address] PCP - General Family Medicine - Primary Care 05/09/24 documented as of this encounter
--- OUTSIDE RECORDS SUMMARY | 2024-05-22 19:43 | XMS_ITS | Encounter Summary ---
Author Organization [facility] [place] [address] [place] [address] Care Team Providers Care Time Lock Expert Name Role Phone None Primary Care Provider Unavailabl e Encounter Details Date Type Department Care Team (Late st Contact Info) Description 02/28/2017 Telephone [place] [address] Savana Burns RN Social History Tobacco Use Types Packs/Day Years [...] Miscellaneous Notes * Telephone Encounter - Savana Burns RN - 02/28/2017 3:41 PM EDT I received a voicemail from Lissett Blevins regarding the patient's follow up. She states that the patient was scheduled for a follow up visit tomorrow, 03/01/17 for suture removal and assessment of her abrasions. The patient is currently admitted to psychiatry. Kelly is wondering if there is a way for someone to go there to see the patient and remove her sutures. Plan: Discussed with Rosalina Zuniga APRN. When the pt has time tomorrow (date of original appointment), they can page [phone] and a resident to see the patient and remove the sutures. Lissett verbalizes herunderstanding and agrees with the plan. documented in this encounter Plan of Treatment Not on file documented as of this encounter Visit Diagnoses Not on filedocumented in this encounter Care Teams Time Lock Expert Relationship Specialty Start Date End Date None None PCP - General 12/09/16 02/27/18 documented as of this encounter
--- OUTSIDE RECORDS SUMMARY | 2024-05-22 19:43 | XMS_ITS | Encounter Summary ---
Author Organization [facility] [place] [address] Care Team Providers Care Programming Coordinator Name Role Phone None Primary Care Provider Unavailabl e Reason for Visit * Reason Onset Date Comments Prior Authorization 02/22/2017 [facility] rev iew correction 02/28/17 Encounter Details Date Type Department Care Team (Late st Contact Info) Description 02/22/2017 [place] [phone] Teagan Vyas MD [facility] [place] [address] [place] [address] Prior Authorization ([facility] review correction 02/28/17) Social History Tobacco Use Types Packs/Day Years [...] encounter Miscellaneous Notes * Telephone Encounter - Erin Laurent - 02/22/2017 1:58 PM EDT Correction to previous auth note: review due 02/28/17with [facility] per corrected auth. Auth scannedinto chart. Notes - phone note with routing done documented in this encounter Plan of Treatment Not on file documented as of this encounter Visit Diagnoses Not on filedocumented in this encounter Care Teams Programming Coordinator Relationship Specialty Start Date End Date None None PCP - General 4/6/17 6/25/18 documented as of this encounter
--- OUTSIDE RECORDS SUMMARY | 2024-05-22 19:43 | XMS_ITS | Encounter Summary ---
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 (Given - Provider: Yamilka Rivera RN)1832 (Given - Provider: Courtney Obrien, AKASH) 0833 (Given - Provider: Josué Hernandez, AKASH) nicotine (NICODERM CQ) 21 mg/24 hr patch 21 mg(Linked Group 1) 21 mg, Transdermal, DAILY, First dose on Tue02/22/17 at 0900, Until Discontinued, Routine 0832 (Patch Applied - Provider: Yamilka Rivera RN) 0811 (Patch Applied - Provider: Yamilka Rivera RN) 0900 (Not Given - Provider: Josué Hernandez RN - Reason: Patient/family refused) nicotine (NICODERM CQ) 21 mg/24 hr patch Patch Removal(Linked Group 1) Transdermal, DAILY, First dose on Tue02/22/17 at 0900, Until Discontinued, Remove nicotine 21 mg/24 hr patch 0900 (Patch Removed - Provider: Yamilka Rivera RN) 0900 (Patch Removed - Provider: Yamilka Rivera RN) 0900 (Patch Removed - Provider: Josué Hernandez RN) Patch Verification(Linked Group 1) Transdermal, 2 TIMES DAILY, First dose on Tue02/21/17 at 2100, Until Discontinued, Verify nicotine 21 mg/24 hr patch 0900 (Patch (dose and location) verified - Provider: Yamilka Rivera RN)2099 (Patch (dose and location) verified - Provider: Sue Mercado RN) 0900 (Patch (dose and location) verified - Provider: Yamilka Rivera RN)2099 (Patch (dose and location) verified - Provider: Courtney Obrien RN - Comment: pt prefers to leave on a tnite) 0900 (Patch (dose and location) verified - Provider: Josué Hernandez RN) senna-docusate (PERICOLACE) 8.6-50 mg per tablet 2 tablet 2 tablet, Oral, 2 TIMES DAILY, First dose on Tue02/21/17 at 2100, Until Discontinued, Routine 0900 (Not Given - Provider: Yamilka Rivera RN - Reason: Patient/family refused)2100 (Not Given - Provider: Sue Mercado RN - Reason: Patient/family refused) 0812 (Given - Provider: Yamilka Rivera RN)210 (Given - Provider: Courtney Obrien RN) 0900 (Not Given - Provider: Josué Hernandez RN - Reason: Patient/family refused) sulfamethoxazole-trimeth oprim (BACTRIM DS) 800-160 mg per tablet 1 tablet 1 tablet, Oral, EVERY 12 HOURS SCHEDULED (2 times per day), First dose on Tue02/28/17 at 1815, Until Discontinued, STAT, Indication for (Active or Suspected): Skin/Skin Structure / cellulitis 0824 (Given - Provider: Yamilka Rivera RN)214 (Given - Provider: Sue Mercado RN) 08 (Given - Provider: Yamilka Rivera RN)2107 (Given - Provider: Courtney Obrien, AKASH) 0833 (Given - Provider: Josué Hernandez, AKASH) topiramate (TOPAMAX) tablet 100 mg 100 mg, Oral, DAILY, First dose on Tue02/22/17 at 0900, Until Discontinued, Routine 0824 (Given - Provider: Yamilka Rivera RN) 08 (Given - Provider: Yamilka Rivera RN) 0833 (Given - Provider: Josué Hernandez RN) PRN Medication Order 03/01/2017 03/02/2017 03/03/2017 calcium carbonate (TUMS) chewable tablet 500 mg 500 mg, Oral, DAILY PRN, Starting on Tue02/21/17 at 1626, Until Tue03/03/17 at 1550, Heartburn, Routine hydrOXYzine (ATARAX) tablet 25 mg 25 mg, Oral, 3 TIMES DAILY PRN, Starting on Tue02/21/17 at 1626, Until Tue03/03/17 at 1550, Anxiety, Routine ibuprofen (ADVIL;MOTRIN) tablet 600 mg 600 mg, Oral, EVERY 6 HOURS PRN, Starting on Tue02/21/17 at 1626, Until Karla 03/03/17 at 1550, Pain, Fever, +headache, Administer orally with milk or food to minimize GI irritation. Maximum dose of 3200 mg from all sources in 24 hours, Routine 1037 (Given - Provider: Yamilka Rivera RN)1649 (Given - Provider: Sue Mercado RN)2316 (Given - Provider: Sue Mercado RN) 0529 (Given - Provider: Joel Lemos RN)1301 (Given - Provider: Yamilka Rivera RN)2336 (Given - Provider: Courtney Obrien, AKASH) 0756 (Given - Provider: Josué Hernandez, AKASH)1339 (Given - Provider: Josué Hernandez, AKASH) melatonin tablet 3 mg 3 mg, Oral, NIGHTLY PRN, Starting on Tue02/21/17 at 1626, Until Tue03/03/17 at 1550, Sleep, Routine nicotine polacrilex (NICORETTE) gum 2 mg 2 mg, Buccal, EVERY 2 HOURS PRN, Starting on Tue02/21/17 at 2053, Until Tue03/03/17 at 1550, Smoking cessation, Chew gum slowly. Do not swallow. Maximum of 48 mg/day., Routine ondansetron (ZOFRAN) tablet 4 mg 4 mg, Oral, EVERY 8 HOURS PRN, Starting on Tue02/21/17 at 1626, Until Tue03/03/17 at 1550, Nausea, Routine oxyCODONE (ROXICODONE) immediate release tablet 5 mg (CANCELED) 5 mg, Oral, EVERY 8 HOURS PRN, Starting on Tue02/28/17 at 1015, Until Tue03/01/17 at 1057, Pain, moderate to severe pain (pain 6/10 or higher). Give ibuprofen for mild pain (below 6/10), January giv, Routine 0600 (Given - Provider: Shanon Calderon RN) oxyCODONE (ROXICODONE) immediate release tablet 5 mg (CANCELED) 5 mg, Oral, EVERY 6 HOURS PRN, Starting on Tue03/01/17 at 1100, Until Tue03/02/17 at 1157, Pain, moderate to severe pain (pain 6/10 or higher). Give ibuprofen for mild pain (below 6/10), January giv, Routine 1220 (Given - Provider: Yamilka Rivera RN)1851 (Given - Provider: Sue Mercado RN) 0319 (Given - Provider: oJel Lemos RN)1038 (Given - Provider: Yamilka Rivera RN) oxyCODONE (ROXICODONE) immediate release tablet 5 mg 5 mg, Oral, EVERY 8 HOURS PRN, Starting on Tue03/02/17 at 1200, Until Tue03/03/17 at 1550, Pain, moderate to severe pain (pain 6/10 or higher). Give ibuprofen for mild pain (below 6/10), January giv, Routine 1741 (Given - Provider: Courtney Obrien RN) 0146 (Given - Provider: Courtney Anderson RN) traZODone (DESYREL) tablet 50 mg 50 mg, Oral, NIGHTLY PRN, Starting on Tue02/21/17 at 1626, Until Karla 03/03/17 at 1550, Sleep, Routine Linked Groups Order Group 1: nicotine (NICODERM CQ) 21 mg/24 hr patch 21 mgJump to med 21 mg, Transdermal, DAILY, First dose on Tue02/22/17 at 0900, Until Discontinued, Routine And Patch VerificationJump to med Transdermal, 2 TIMES DAILY, First dose on Tue02/21/17 at 2100, Until Discontinued, Verify nicotine 21 mg/24 hr patch And nicotine (NICODERM CQ) 21 mg/24 hr patch Patch RemovalJump to med Transdermal, DAILY, First dose on Tue02/22/17 at 0900, Until Discontinued, Remove nicotine 21 mg/24 hr patch documented in this encounter Care Teams Accounting Reconciliation Clerk Relationship Specialty Start Date End Date None None PCP - General 12/09/16 02/27/18 documented as of this encounter
--- OUTSIDE RECORDS SUMMARY | 2024-05-22 19:43 | XMS_ITS | Encounter Summary ---
Author Organization [facility] Address [address] [place] [address] Care Team Providers Care Bottom Cager Name Role Phone Lidia Benson ELECTRICAL TEST TECHNICIAN Primary Care Provider [phone] Adelina Baca ELECTRICAL TEST TECHNICIAN Primary Care Provider [phone] Antoni Ohara DO Primary Care Provider [phone] Encounter Details Date Type Department Care Team (Late st Contact Info) Description 01/07/2021 Lab Requisition [facility] Pathology & Laboratory Medicine - [facility] [address] [place], [place] [id number] Outr Resulting Lab, Provider Social History Tobacco [...] Procedure Name Priority Date/Time Associated Diagnosis Comments T3 FREE Routine 01/07/2021 10:00 EDT documented in this encounter Results * T3 FREE (01/07/2021 10:00 EDT) T3, Free 3.0 2.8 - 5.3 pg/mL 01/07/2021 16:45 EDT [facility] Blood VENOUS BLOOD / Unknown 01/07/2021 10:00 EDT 01/07/2021 16:01 EDT Provider Outr Resulting Lab CHEMISTRY & BLOOD GAS ORDERABLES [facility] [address] [place] [address] documented in this encounter Visit Diagnoses Not on filedocumented in this encounter Care Teams Bottom Cager Relationship Specialty Start Date End Date Lidia Benson NP [address] [place] [address] PCP - General 09/27/17 03/29/22 Adelina Baca NP [address] [place] [address] PCP - General Family Medicine - Primary Care 03/30/22 05/08/24 Antoni Ohara DO [address] [place] [id number] PCP - General Family Medicine - Primary Care 05/09/24 documented as of this encounter
--- OUTSIDE RECORDS SUMMARY | 2024-05-22 19:43 | XMS_ITS | Encounter Summary ---
Author Organization [facility] Address [address] [place] [address] Care Team Providers Care Endocrinology Physician Name Role Phone Lidia Benson GRINDER HAND Primary Care Provider [phone] Adelina Baca GRINDER HAND Primary Care Provider [phone] Antoni Ohara DO Primary Care Provider [phone] Encounter Details Date Type Department Care Team (Late st Contact Info) Description 06/24/2020 Lab Requisition [facility] Pathology & Laboratory Medicine - [facility] [address] [place], [place] [address] Outr Resulting Lab, Provider Social History Tobacco [...] Procedure Name Priority Date/Time Associated Diagnosis Comments CORTISOL Routine 06/24/2020 11:54 EDT documented in this encounter Results * CORTISOL (06/24/2020 11:54 EDT) Cortisol 6 See Note ug/dL 06/24/2020 21:43 EDT [facility] Comment: NOTE: Reference Ranges (from [facility]): Collected Before 10:00 AM: ??4 - 23 ug/dL Collected After 5:00 PM: ?2 - 14 ug/dL The results of this assay can be falsely elevated due to the consumption of Biotin. Blood VENOUS BLOOD / Unknown 06/24/2020 11:54 EDT 06/24/2020 21:00 EDT Provider Outr Resulting Lab CHEMISTRY & BLOOD GAS ORDERABLES [facility] [address] [place] [address] documented in this encounter Visit Diagnoses Not on filedocumented in this encounter Care Teams Endocrinology Physician Relationship Specialty Start Date End Date Lidia Benson NP [address] [place] [address] PCP - General 09/27/17 03/29/22 Adelina Baca NP [address] [place], [place] [address] PCP - General Family Medicine - Primary Care 03/30/22 05/08/24 Antoni Ohara DO [address] [place] [id number] PCP - General Family Medicine - Primary Care 05/09/24 documented as of this encounter
--- OUTSIDE RECORDS SUMMARY | 2024-05-22 19:43 | XMS_ITS | Referral Summary ---
Author Organization [facility] Address [address] [place] [address] Care Team Providers Care Hack Driver Name Role Phone Mayda Antoni Raymundo DO Primary Care Provider [phone] Encounters Date Type Department Care Team Description 05/09/2024 14:30 EDT Office Visit [facility] Plastic, Reconstructive & Cosmetic Surgery - [place] [address], [address] [place] [address] Sid Lei MD FACS from Last 3 Months Allergies Active Allergy Reactions Criticality Noted Date Comments Codeine Other (See Comments) 11/10/2015 Unable to recall reaction Medications Medication Sig Dispensed Refills Start Date End Date Status topiramate (TOPAMAX) 25 mg tablet Take 1 Tablet by mouth daily. Active divalproex (DEPAKOTE) 500 mg delayed release tablet Take 4 Tablets by mouth at bedtime. Active levothyroxine (SYNTHROID) 75 mcg tablet Take 1 Tablet by mouth daily. Active metFORMIN (GLUCOPHAGE) 500 mg tablet Take 1,000 mg by mouth daily. Active ARIPiprazole (ABILIFY) 10 mg tablet Take 1 Tablet by mouth daily. Active metoprolol TARtrate (LOPRESSOR) 12.5 mg Take 10 mg by mouth 2 times daily. Active Social History Tobacco Use Types Packs/Day Years Used Date Smoking Tobacco: Former Cigarettes 1 5 0 09/05/2009 - 09/05/2014 Tobacco Cessation:Counseling Given: Not Answered Alcohol Use Standard Drinks/Week Comments Not Asked [...] 35.43 11/10/2015 0934 EST Plan of Treatment Not on file Care Teams Hack Driver Relationship Specialty Start Date End Date Antoni Ohara DO [address] [place] [phone] PCP - General Family Medicine - Primary Care 05/09/24
--- OUTSIDE RECORDS SUMMARY | 2024-05-22 19:43 | XMS_ITS | Encounter Summary ---
Author Organization Formerly [facility] [address] [place] [address] Care Team Providers Care Photography Editor Name Role Phone None Primary Care Provider Unavailabl e Reason for Visit * Reason Comments Psychiatric Evaluation Encounter Details Date Type Department Care Team (Late st Contact Info) Description 12/09/2016 3:45 AM EDT - 12/09/2016 6:19 AM EDT Emergency Emergency Department [facility] [place] [address] Tayla Antonio MD [facility] [place] [address] Paranoid schizophrenia Discharge Disposition: Psych Hospital/Distinct Part of Hospital Social History Tobacco Use Types Packs/Day Years [...] 36.6 ??C (97.9 ??F) 12/09/2016 3:48 AM ED T Respiratory Rate 18 12/09/2016 3:48 AM EDT [...] Start Date End Date ARIPiprazole (ABILIFY) 30 mg Tablet Take 1 tablet by mouth nightly. 12/10/2016 03/16/2017 metFORMIN (GLUCOPHAGE) 1,000 mg Tablet Take 1,000 mg by mouth 2 times daily (with meals). 03/16/2017 aripiprazole (ABILIFY) 20 mg tablet 08/06/2009 12/10/2016 topiramate (TOPAMAX) 25 mg tablet 08/06/2009 03/16/2017 divalproex (DEPAKOTE) 250 mg EC tablet 08/06/2009 12/10/2016 benztropine (COGENTIN) 0.5 mg tablet 08/06/2009 03/16/2017 documented as of this encounter ED Notes * Jerrica Sepulveda RN - 12/09/2016 5:40 AM EDT Psychiatry at bedside. * Jerrica Sepulveda RN - 12/09/2016 5:40 AM EDT Patient to be admitted to inpatient psychiatry. * Patricia Islas LNA - 12/09/2016 5:33 AM EDT Pt up to bathroom * Patricia Islas LNA - 12/09/2016 5:00 AM EDT Psych at bedside * Brittney Joshua LNA - 12/09/2016 4:23 AM EDT I was drawing pts labs she stated : I fell into your trap didn't I?. Pt is expressing wanting tot leave. She's agreed to stay until the lab results come back. * Brittney Joshua LNA - 12/09/2016 4:02 AM EDT Resident in with pt. * Harjinder Esteban - 12/09/2016 3:58 AM EDT Chief Complaint Patient presents with ??? Psychiatric Evaluation HPI Shaneka is a 36 yo F with a PMH of DM2 and a PPH of schizophrenia (currently taking abilify, depakote, topamax and metformin) who presents with psychotic delusions for the last 2 weeks. The delusions are getting worse . Was on geodon and was having restless legs, so was switched to abilify about 1 week ago. Is not having any visual or auditory hallucinations. Is also noticing that the air in her apartment is thick and heavy and smells like cleaning solutionand is difficult to breathe. Follows with psychiatrist [...] hallucinations, self-injury and suicidal ideas. The patient isnot nervous/anxious. Physical Exam BP 125/88 (Patient Position: [...] weeks of psychotic delusions with acute worsening tonight;moreover, she desires IP admission. Unclear if there is a precipitating factor: meds were changed 1week ago, so this could be contributing. Have low suspicion for toxic ingestion as patient is forthcoming and denies SI--but this should be proved. Will consult psychiatry and have patient admitted. ED Course: Labs: mild leukocytosis; mildly elevated transaminases and alk phos, otherwise normal CMP. Negativeethanol, tylenol, salicylate. Valproate level <3. Spoke with [...] week. Psych consulted and labs obtained. Psych willadmit for further care and stabilization Final Assessment: paranoid schizophrenia * Brittney Joshua LNA - 12/09/2016 3:51 AM EDT Pt changed into gown. Belongings locked behind garage. documented in this encounter Miscellaneous Notes * ED Triage - Aurelia Loo RN - 12/09/2016 3:56 AM EDT Patient states she is seeking help tonight because the government is trying to kill her. She is also unable to breath the air in her apartment. Denies SI and HI. Respirations even and unlabored. Skinpwd documented in this encounter Plan of Treatment Not on file documented as of this encounter Procedures Procedure Name Priority Date/Time Associated Diagnosis Comments RAPID DRUG SCREEN W/O CONFIRMATION, URINE STAT 12/09/2016 6:00 AM EDT HEMOGRAM STAT 12/09/2016 4:48 AM EDT DIFFERENTIAL, AUTOMATED STAT 12/09/2016 4:48 AM EDT BLUE TUBE HOLD STAT 12/09/2016 4:48 AM EDT CBC (WITH DIFF) STAT 12/09/2016 4:48 AM EDT GREEN TUBE HOLD STAT 12/09/2016 4:15 AM EDT T3, FREE STAT 12/09/2016 4:15 AM EDT TSH STAT 12/09/2016 4:15 AM EDT T4, FREE STAT 12/09/2016 4:15 AM EDT ETHANOL LEVEL STAT 12/09/2016 4:15 AM EDT ACETAMINOPHEN LEVEL STAT 12/09/2016 4 :15 AM EDT SALICYLATE STAT 12/09/2016 4:15 AM EDT VALPROIC ACID LEVEL, TOTAL STAT 12/09/2016 4:15 AM EDT COMPREHENSIVE METABOLIC PANEL STAT 12/09/2016 4:15 AM EDT documented in this encounter Results * Rapid Drug Screen, Urine (12/09/2016 6:00 AM EDT) Pathologist [facility] Marijuana Metabolites Screen None Detected None Detected [facility] Comment: The marijuana metabolites screen detects the THC Metabolite (51-cuv-5-carboxy-delta 9-THC) at concentrations >50 ng/mL. Qualitative Drug screens are reported as ? None Detected? or ? Presumptive Positive? as the results are not routinely confirmed by highly-specific methods. As with any screen occasional false positive results from cross-reacting substances can occur. Not for Medico-Legal Purposes. Phencyclidine Screen, Urine None Detected None Detected [facility] Comment: The phencyclidine screen detects phencyclidine at concentrations >25 ng/mL. Qualitative Drug screens are reported as ? None Detected? or ? Presumptive Positive? as the results are not routinely confirmed by highly-specific methods. As with any screen occasional false positive results from cross-reacting substances can occur. Not for Medico-Legal Purposes. [place] Cocaine Metabolites Screen None Detected None Detected [facility] Comment: The cocaine metabolites screen detects benzoylecgonine (Cocaine Metabolite) at concentrations >150 ng/mL. Qualitative Drug screens are reported as ? None Detected? or ? Presumptive Positive? as the results are not routinely confirmed by highly-specific methods. As with any screen occasional false positive results from cross-reacting substances can occur. Not for Medico-Legal Purposes. Methamphetamines Screen, Urine None Detected None Detected [facility] Comment: The methamphetamine screen detects d-methamphetamine at concentrations >500 ng/mL. Qualitative Drug screens are reported as ? None Detected? or ? Presumptive Positive? as the results are not routinely confirmed by highly-specific methods. As with any screen occasional false positive results from cross-reacting substances can occur. Not for Medico-Legal Purposes. [place] Opiates Screen None Detected None Detected [facility] Comment: The opiates screen detects opiates at a concentration >100 ng/mL and oxymorphone >250 ng/mL. Qualitative Drug screens are reported as ? None Detected? or ? Presumptive Positive? as the results are not routinely confirmed by highly-specific methods. As with any screen occasional false positive results from cross-reacting substances can occur. Not for Medico-Legal Purposes. [place] Amphetamines Screen None Detected None Detected [facility] Comment: The amphetamine screen detects d-amphetamine at concentrations >500 ng/mL. Qualitative Drug screens are reported as ? None Detected? or ? Presumptive Positive? as the results are not routinely confirmed by highly-specific methods. As with any screen occasional false positive results from cross-reacting substances can occur. Not for Medico-Legal Purposes. [place] Benzodiazepines Screen None Detected None Detected [facility] Comment: The benzodiazepines screen detects benzodiazepines at concentrations >150 ng/mL. Not all benzodiazepines cross-react equally with antibody used in this screen. Due to the low dosage of clonazepam, false negatives may be obtained due to low concentration of clonazepam metabolites. Qualitative Drug screens are reported as ? None Detected? or ? Presumptive Positive? as the results are not routinely confirmed by highly-specific methods. As with any screen occasional false positive results from cross-reacting substances can occur. Not for Medico-Legal Purposes. [place] Tricyclics Screen None Detected None Detected [facility] Comment: The tricyclics screen detects tricyclic antidepressants at concentrations >300 ng/mL. Not all tricyclics cross-react equally with the antibody used in this screen. Qualitative Drug screens are reported as ? None Detected? or ? Presumptive Positive? as the results are not routinely confirmed by highly-specific methods. As with any screen occasional false positive results from cross-reacting substances can occur. Not for Medico-Legal Purposes. [place] Methadone Screen None Detected None Detected [facility] Comment: The methadone screen detects methadone at concentrations >200 ng/mL. Qualitative Drug screens are reported as ? None Detected? or ? Presumptive Positive? as the results are not routinely confirmed by highly-specific methods. As with any screen occasional false positive results from cross-reacting substances can occur. Not for Medico-Legal Purposes. [place] Barbiturates Screen None Detected None Detected [facility] Comment: The barbiturates screen detects barbiturate at concentrations >200 ng/mL. Note: Not all barbiturates cross-react equally with antibody used in this screen. Qualitative Drug screens are reported as ? None Detected? or ? Presumptive Positive? as the results are not routinely confirmed by highly-specific methods. As with any screen occasional false positive results from cross-reacting substances can occur. Not for Medico-Legal Purposes. [place] Oxycodone Srceen None Detected None Detected [facility] Comment: The oxycodone screen detects oxycodone at concentrations >100 ng/mL and oxymorphone >250 ng/ml. Qualitative Drug screens are reported as ? None Detected? or ? Presumptive Positive? as the results are not routinely confirmed by highly-specific methods. As with any screen occasional false positive results from cross-reacting substances can occur. Not for Medico-Legal Purposes. Propoxyphene Screen, Urine None Detected None Detected [facility] Comment: The propoxyphene screen detects propoxyphene at concentrations >300 ng/mL. Qualitative Drug screens are reported as ? None Detected? or ? Presumptive Positive? as the results are not routinely confirmed by highly-specific methods. As with any screen occasional false positive results from cross-reacting substances can occur. Not for Medico-Legal Purposes. [place] Buprenorphine Screen None Detected None Detected [facility] Comment: The buprenorphine screen detects buprenorphine at concentrations >10 ng/mL. Qualitative Drug screens are reported as ? None Detected? or ? Presumptive Positive? as the results are not routinely confirmed by highly-specific methods. As with any screen occasional false positive results from cross-reacting substances can occur. Not for Medico-Legal Purposes. [place] Adulterants Screen None Detected None Detected [facility] Comment: No adulteration or dilution of this urine sample was detected. All urine samples submitted for urine drugs of abuse analysis are tested for Creatinine and pH and for the presence of oxidants, nitrites, chromate and aldehydes (glutaraldehyde). Urine specimen (specimen) 12/09/2016 6:00 AM EDT 12/09/2016 6:04 AM EDT Narrative Resulting Agency Comment Spec In Lab Tayla Antonio MD URINE ORDERABLES Performing Organization Address City/[facility]/ZIP Co de Phone Number [facility] [place] [address] * Blue Tube HOLD (12/09/2016 4:48 AM EDT) Blue Hold Sample in lab. [facility] Blood specimen (specimen) Venous Draw / Unknown 12/09/2016 4:48 AM EDT 12/09/2016 4:55 AM EDT Tayla Antonio MD HEMATOLOGY ORDERABLE S Performing Organization Address City/[facility] Co de Phone Number [facility] [place] [address] * (ABNORMAL) Differential, Automated (12/09/2016 4:48 AM EDT) [facility] Neutrophil % 72.3 % [facility] Neutrophil Absolute 9.50(H) 1.70 - 6.10 x10(3)/mc L [facility] Lymph % 20.5 % [facility] Lymphocytes Abs 2.7 0.9 - 3.2 x10(3)/mc L [facility] Monocyte % 5.2 % [facility] Monocyte Abs 0.7 0.3 - 0.9 x10(3)/mc L [facility] Eos % 1.4 % [facility] Eosinophils Abs 0.2 0.0 - 0.4 x10(3)/mc L [facility] Basophil % 0.3 % [facility] Baso Absolute 0.0 0.0 - 0.1 x10(3)/mc L [facility] Immature Gran % 0.30 % [facility] Comment: Immature granulocytes(IG's)percentage and absolute count will include metamyelocytes, myelocytes, and promyelocytes. Blood smears from CBCs yielding IG's will be scanned manually for concordance. If this scan disagrees with the automated IG or if promyelocytes are noted, a manual differential will be performed. Immature Gran Absolute 0.04 0.00 - 0.04 x10(3)/mc L [facility] Blood specimen (specimen) 12/09/2016 4:48 AM EDT 12/09/2016 4:55 AM EDT Narrative Resulting Agency Comment Spec In Lab Tayla Antonio MD HEMATOLOGY ORDERABLE S [facility] [place] [address] * (ABNORMAL) Hemogram (12/09/2016 4:48 AM EDT) White Blood Cell 13.1(H) 4.0 - 9.5 x10(3)/mc L [facility] Red Blood Cell 4.53 4.00 - 5.21 x10(6)/mc L [facility] Hemoglobin 14.2 11.7 - 15.5 gm/dL [facility] Hematocrit 40.7 35.7 - 45.8 % [facility] Mean Cell Volume 89.8 82.6 - 94.4 fL [facility] Mean Cell Hemoglobin 31.3 27.1 - 32.0 pg [facility] Mean Cell Hemoglobin Concentration 34.9 31.7 - 35.0 gm/dL [facility] Platelet 366(H) 145 - 357 x10(3)/mc L [facility] RDW Standard Deviation 43.1 37.0 - 46.0 fL [facility] RDW coefficient of variation 13.1 11.5 - 14.1 % [facility] Mean Platelet Volume 9.4 7.6 - 12.9 fL [facility] NRBC% auto 0.0 % [facility] NRBC Absolute 0.000 0.000 - 0.000 x10(3)/mc L [facility] Blood specimen (specimen) 12/09/2016 4:48 AM EDT 12/09/2016 4:55 AM EDT Narrative Resulting Agency Comment Spec In Lab Tayla Antonio MD HEMATOLOGY ORDERABLE S [facility] [place] [address] * T3, free (12/09/2016 4:15 AM EDT) Free T3 3.0 2.0 - 4.4 pg/mL [facility] Blood specimen (specimen) Venous Draw / Unknown 12/09/2016 4:15 AM EDT 12/09/2016 4:31 AM EDT Narrative Resulting Agency Comment Spec In Lab Tayla Antonio MD CHEMISTRY ORDERABLES Performing Organization Address City/[facility]/ZIP Co de Phone Number [facility] [place] [address] * T4, free (12/09/2016 4:15 AM EDT) Free T4 1.29 0.93 - 1.70 ng/dL [facility] Blood specimen (specimen) Venous Draw / Unknown 12/09/2016 4:15 AM EDT 12/09/2016 4:31 AM EDT Narrative Resulting Agency Comment Spec In Lab Tayla Antonio MD CHEMISTRY ORDERABLES Performing Organization Address City/[facility]/ZIP Co de Phone Number [facility] [place] [address] * TSH (12/09/2016 4:15 AM EDT) Thyroid Stimulating Hormone 2.05 0.27 - 4.20 mcIU/mL [facility] Blood specimen (specimen) Venous Draw / Unknown 12/09/2016 4:15 AM EDT 12/09/2016 4:31 AM EDT Narrative Resulting Agency Comment Spec In Lab Tayla Antonio MD CHEMISTRY ORDERABLES Performing Organization Address City/[facility]/ZIP Co de Phone Number [facility] [place] [address] * Salicylate (12/09/2016 4:15 AM EDT) Salicylate <20 mg/L [facility] Comment: Results rechecked by pmh Therapeutic Range: ??< 200 mg/L Arthritic Therapy: ??150-300 mg/L Toxic: ?> 350 mg/L ??Concentrations > 500 mg/L may be an indication for alkalinization of urine. Concentrations > 800 mg/L are often an indication for hemodialysis. Blood specimen (specimen) Venous Draw / Unknown 12/09/2016 4:15 AM EDT 12/09/2016 4:26 AM EDT Narrative Resulting Agency Comment Spec In Lab Tayla Antonio MD CHEMISTRY ORDERABLES Performing Organization Address [facility] Co de Phone Number [facility] [place] [address] * Acetaminophen level (12/09/2016 4:15 AM EDT) Acetamin Lvl <5 10 - 30 mg/L [facility] Comment: Results rechecked by pmh Levels >150 mg/L at 4 hours post ingestion or >75 mg/L at 8 hours post ingestion are often an indication for N-Acetylcysteine. Blood specimen (specimen) Venous Draw / Unknown 12/09/2016 4:15 AM EDT 12/09/2016 4:26 AM EDT Narrative Resulting Agency Comment Spec In Lab Tayla Antonio MD CHEMISTRY ORDERABLES Performing Organization Address City/[facility]/ZIP Co de Phone Number [facility] [place] [address] * (ABNORMAL) Comprehensive metabolic panel (non-fasting) (12/09/2016 4:15 AM EDT) Glucose 157 65 - 199 mg/dL [facility] Comment:Diabetes: >=200 mg/d L plus symptoms Blood Urea Nitrogen 11 8 - 18 mg/dL [facility] Creatinine 0.72 0.70 - 1.20 mg/dL [facility] Comment: Please note that the pediatric reference intervals supplied above were not validated [place] [facility] Results from pediatric patients should be interpreted in conjunction to the patient's age, height and muscle mass. Sodium 143 135 - 145 mmol/L [facility] Potassium 3.7 3.5 - 5.0 mmol/L [facility] Comment: Please note: ??Patients with WBC >100,000 may have falsely elevated Potassium levels. ??For accurate Potassium quantification in these patients send serum separator tube (gold top) for subsequent determinations. ??Contact the Clinical Chemistry Laboratory if there are any questions. Chloride 102 98 - 107 mmol/L [facility] Carbon Dioxide 22 22 - 31 mmol/L [facility] Anion Gap 19(H) 5 - 15 mmol/L [facility] Calcium 9.7 8.5 - 10.5 mg/dL [facility] Protein, Total 7.2 6.1 - 8.0 gm/dL [facility] Albumin 4.2 3.2 - 5.2 gm/dL [facility] Aspartate Aminotransferase 33(H) 0 - 30 unit/L [facility] Alanine Aminotransferase 55(H) 0 - 30 unit/L [facility] Alkaline Phosphatase 142(H) 40 - 104 unit/L [facility] Bilirubin, Total <0.2(L) 0.2 - 1.3 mg/dL [facility] Bilirubin, Direct <0.1 0.0 - 0.3 mg/dL [facility] Est Glomerular Filtration Rate >60 >=60 [facility] Comment: This estimated GFR [...] the following links into your internet browser. [email or web address] Blood specimen (specimen) Venous Draw / Unknown 12/09/2016 4:15 AM EDT 12/09/2016 4:31 AM EDT Narrative Resulting Agency Comment Spec In Lab Tayla Antonio MD CHEMISTRY ORDERABLES Performing Organization Address [facility] Co de Phone Number [facility] [place] [address] * Green Tube HOLD (12/09/2016 4:15 AM EDT) Green Hold Sample in lab. [facility] Blood specimen (specimen) Venous Draw / Unknown 12/09/2016 4:15 AM EDT 12/09/2016 4:29 AM EDT Tayla Antonio MD CHEMISTRY ORDERABLES Performing Organization Address [facility] de Phone Number [facility] [place] [address] * Valproic Acid Level, Total (12/09/2016 4:15 AM EDT) Valproic Acid <3 [facility] Comment: Results rechecked by [facility] Therapeutic Range: Anticonvulsant Therapy: ??50-100 mg/L Manic Episodes Associated with Bipolar Disorder: ??50-125 mg/L Blood specimen (specimen) 12/09/2016 4:15 AM EDT 12/09/2016 4:26 AM EDT Narrative Resulting Agency Comment Spec In Lab Tayla Antonio MD CHEMISTRY ORDERABLES Performing Organization Address City/[facility] Co de Phone Number [facility] [place] [address] * Ethanol Level (12/09/2016 4:15 AM EDT) Ethanol <100 mg/L [facility] Comment: Greater than 800 mg/L (0.08%) should be considered intoxicated. 3400 to 4500 mg/L (0.34 - 0.45%) is considered severe intoxication. Greater than 5500 mg/L (0.55%) is usually fatal. Blood specimen (specimen) 12/09/2016 4:15 AM EDT 12/09/2016 4:26 AM EDT Narrative Resulting Agency Comment Spec In Lab Tayla Antonio MD CHEMISTRY ORDERABLES [facility] [place] [address] documented in this encounter Visit Diagnoses Diagnosis Paranoid schizophrenia Paranoid schizophrenia, unspecified condition documented in this encounter Administered Medications Inactive Administered Medications - up to 3 most recent administrations Medication Order MAR Action Action Date Dose Rate Site OLANZapine zydis (ZyPREXA) disintegrating tablet 10 mg 10 mg, Oral, ONCE, 1 dose, On Karla 12/09/16 at 0447, STAT Given 12/09/2016 5:10 AM EDT 10 mg documented in this encounter Active and Recently Administered Medications Times are shown in EDT. Scheduled Medication Order 12/07/2016 12/08/2016 12/09/2016 OLANZapine zydis (ZyPREXA) disintegrating tablet 10 mg (COMPLETED) 10 mg, Oral, ONCE, 1 dose, On Karla 12/09/16 at 0447, STAT 0510 (Given - Provid er: Jerrica Sepulveda RN) documented in this encounter Care Teams Photography Editor Relationship Specialty Start Date End Date None None PCP - General 12/09/16 02/27/18 documented as of this encounter
--- OUTSIDE RECORDS SUMMARY | 2024-05-22 19:43 | XMS_ITS | Encounter Summary ---
Author Organization [facility] Address [address] [place] [address] Care Team Providers Care Consular Officer Name Role Phone Lidia Benson RECOVERY OPERATOR Primary Care Provider [phone] Adelina Baca RECOVERY OPERATOR Primary Care Provider [phone] Antoni Ohara DO Primary Care Provider [phone] Encounter Details Date Type Department Care Team (Late st Contact Info) Description 05/02/2020 Lab Requisition [facility] Pathology & Laboratory Medicine - [facility] [address], [place] [address] Outr Resulting Lab, Provider Social History Tobacco [...] Procedure Name Priority Date/Time Associated Diagnosis Comments CHLAMYDIA/N. GONORRHOEAE AMPLIFIED NUCLEIC ACID Routine 05/02/2020 15:35 EDT documented in this encounter Results * CHLAMYDIA/N. GONORRHOEAE AMPLIFIED RNA (05/02/2020 15:35 EDT) Neisseria gonorrhoeae Result Negative Negative 05/05/2020 13:40 EDT [facility] Chlamydia trachomatis Result Negative Negative 05/05/2020 13:40 EDT [facility] Urine URINE / Unknown 05/02/2020 1 5:35 EDT 05/04/2020 16:51 EDT Narrative [facility] - 05/05/2020 13:40 EDT A first catch urine specimen is acceptable for detection of Gonorrhea and Chlamydia, but might detect up to 10% fewer infections when compared with vaginal and endocervical swab samples. Provider Outr Resulting Lab MICROBIOLOGY - GENERAL ORDERABLES [facility] [address] [place] [address] documented in this encounter Visit Diagnoses Not on filedocumented in this encounter Care Teams Consular Officer Relationship Specialty Start Date End Date Lidia Benson NP [address] [place] [address] PCP - General 09/27/17 03/29/22 Adelina Baca NP [address] [place] [address] PCP - General Family Medicine - Primary Care 03/30/22 05/08/24 Antoni Ohara DO [address] [place] [address] PCP - General Family Medicine - Primary Care 05/09/24 documented as of this encounter
--- OUTSIDE RECORDS SUMMARY | 2024-05-22 19:43 | XMS_ITS | Encounter Summary ---
Author Organization [facility] Address [address] [place] [address] Care Team Providers Care Primary Care Physician Name Role Phone Lidia Benson NOC ANALYST Primary Care Provider Adelina Baca NOC ANALYST Primary Care Provider Antoni Ohara DO Primary Care Provider [phone] Encounter Details Date Type Department Care Team (Late st Contact Info) Description 03/16/2022 Lab Requisition [facility] Pathology & Laboratory Medicine - [facility] [address], [place] [id number] Outr Resulting Lab, Provider Social History Tobacco [...] Comments CHLAMYDIA/N. GONORRHOEAE AMPLIFIED NUCLEIC ACID Routine 03/15/2022 15:15 EDT documented in this encounter Results * CHLAMYDIA/N. GONORRHOEAE AMPLIFIED RNA (03/15/2022 15:15 EDT) Neisseria gonorrhoeae Result Negative Negative 03/17/2022 14:54 EDT [facility] Chlamydia trachomatis Result Negative Negative 03/17/2022 14:54 EDT [facility] Urine URINE / Unknown 03/15/2022 1 5:15 EDT 03/16/2022 18:49 EDT Narrative [facility] - 03/17/2022 14:54 EDT A first catch urine specimen is acceptable for detection of Gonorrhea and Chlamydia, but might detect up to 10% fewer infections when compared with vaginal and endocervical swab samples. Provider Outr Resulting Lab MICROBIOLOGY - GENERAL ORDERABLES [facility] [address] [place] [address] documented in this encounter Visit Diagnoses Not on filedocumented in this encounter Care Teams Primary Care Physician Relationship Specialty Start Date End Date Lidia Benson NP [address] [place] [address] PCP - General 09/27/17 03/29/22 Adelina Baca NP [address] [place] [address] PCP - General Family Medicine - Primary Care 03/30/22 05/08/24 Antoni Ohara DO [address] [place] [address] PCP - General Family Medicine - Primary Care 05/09/24 documented as of this encounter
--- OUTSIDE RECORDS SUMMARY | 2024-05-22 19:43 | XMS_ITS | Encounter Summary ---
Author Organization [facility] Address [address] [place] [address] Care Team Providers Care Flap Presser Name Role Phone Lidia Benson SWINE GENETICS RESEARCHER Primary Care Provider [phone] Adelina Baca SWINE GENETICS RESEARCHER Primary Care Provider [phone] Antoni Ohara DO Primary Care Provider [phone] Encounter Details Date Type Department Care Team (Late st Contact Info) Description 10/06/2021 Lab Requisition [facility] Pathology & Laboratory Medicine - [facility] [address], [place] [address] Outr Resulting Lab, Provider Social History Tobacco [...] Procedure Name Priority Date/Time Associated Diagnosis Comments HOLD SST Today 10/05/2021 14:00 EST PROLACTIN Today 10/05/2021 14:00 EST LH Today 10/05/2021 14:00 EST FSH Today 10/05/2021 14:00 EST documented in this encounter Results * HOLD SST (10/05/2021 14:00 EST) Hold Hold 10/06/2021 17:01 EST [facility] Blood VENOUS BLOOD / Unknown 10/05/2021 14:00 EST 10/06/2021 15:48 EST Provider Outr Resulting Lab LAB INFO SER VICE AND SUPPORT & PHONE RESULT Performing Organization Address [facility] Co de Phone Number [facility] [address] [place] [address] * LH (10/05/2021 14:00 EST) [facility] Luteinizing Hormone 12.0 See Note mIU/mL 10/07/2021 14:27 EST [facility] Comment: NOTE: Female Reference Ranges: Pre-Pubertal: ?<6.0 mIU/mL Menstruating: Follicular Phase(-12 to -4 days: ??1.9 - 12.5 mIU/mL Midcycle(-3 to +2 days): ?8.7 - 76.3 mIU/mL Luteal Phase(+4 to +12 days): ? 0.5 - 16.9 mIU/mL Post Menopausal: 15.9 - 54.0 mIU/mL Blood VENOUS BLOOD / Unknown 10/05/2021 14:00 EST 10/06/2021 15:47 EST Provider Outr Resulting Lab CHEMISTRY & BLOOD GAS ORDERABLES Performing Organization Address [facility]/ZIP Co de Phone Number [facility] [address] [place] [address] * FSH (10/05/2021 14:00 EST) FSH 5.6 See Note mIU/mL 10/07/2021 14:27 EST [facility] Blood VENOUS BLOOD / Unknown 10/05/2021 14:00 EST 10/06/2021 15:47 EST Narrative [facility] - 10/07/2021 14:27 EST NOTE: [...] & BLOOD GAS ORDERABLES Performing Organization Address City/State/[facility] Co de Phone Number [facility] [address] [place] [address] * PROLACTIN (10/05/2021 14:00 EST) Prolactin 4.8 See Table ng/mL 10/07/2021 14:27 EST [facility] Comment: NOTE: Female Reference Ranges: PHYSIOLOGICAL STATUS ?EXPECTED RANGE ? Postmenopausal ?1.8 - 20.3 ng/mL ?9.7 - 208.5 ng/mL Non- ?2.8 - 29.2 ng/mL Reference Ranges for Prolactin in female patients <18 years old have not been established. Blood VENOUS BLOOD / Unknown 10/05/2021 14:00 EST 10/06/2021 15:47 EST Provider Outr Resulting Lab CHEMISTRY & BLOOD GAS ORDERABLES Performing Organization Address City/State/[facility] Co de Phone Number [facility] [address] [place] [address] documented in this encounter Visit Diagnoses Not on filedocumented in this encounter Care Teams Flap Presser Relationship Specialty Start Date End Date Lidia Benson NP [address] [place] [address] PCP - General 09/27/17 03/29/22 Adelina Baca NP [address] [place] [address] PCP - General Family Medicine - Primary Care 03/30/22 05/08/24 Antoni Ohara DO [address] [place] [id number] PCP - General Family Medicine - Primary Care 05/09/24 documented as of this encounter
--- OUTSIDE RECORDS SUMMARY | 2024-05-22 19:43 | XMS_ITS | Encounter Summary ---
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 - Provider: Flavio Martin RN - Comment: L upper arm) 0900 (Patch (dose and location) verified - Provider: Christina Longo RN) oxyCODONE (ROXICODONE) immediate release tablet 5 mg (COMPLETED) 5 mg, Oral, ONCE, 1 dose, On Tue02/21/17 at 1330, Routine 1321 (Given - Provid er: Christina Longo RN) polyethylene glycol (MIRALAX) packet 17 g 17 g, Oral, DAILY, First dose on Tue02/21/17 at 0900, Until Discontinued, Administer if needed per patient's routine or if no bowel movement within 48 hours to achieve: 1) One bowel movement at least every 48 hours, AND 2) Without straining. If multiple bowel medications ordered, consider polyethylene glycol(MIRALAX) first., Routine 0820 (Given - Provid er: Christina Longo RN) potassium chloride (K-DUR/KLOR-CON) extended release tablet 40 mEq (COMPLETED) 40 mEq, Oral, ONCE, 1 dose, On Tue02/20/17 at 1030, 20 mEq tablet may be dissolved in water for administration, Routine 1028 (Given - Provider: Shaneka Velazquez RN) senna-docusate (PERICOLACE) 8.6-50 mg per tablet 2 tablet 2 tablet, Oral, 2 TIMES DAILY, First dose on Tue02/21/17 at 0900, Until Discontinued, Routine 0819 (Given - Provid er: Christina Longo RN) sodium chloride 0.9 % flush 5 mL 5 mL, Intravenous, 2 TIMES DAILY, First dose on Tue02/20/17 at 0015, Until Discontinued, Recovery (Recovery-Hospital Unit), Routine 0020 (Given - Provider: Elizabeth Hewitt RN)1005 (Given - Provider: Shaneka Velazquez RN)2036 (Given - Provider: Flavio Martin, AKASH) 0832 (Given - Provider: Christina Longo RN) topiramate (TOPAMAX) sprinkle capsule 25 mg 25 mg, Oral, DAILY, First dose on Tue02/20/17 at 1000, Until Discontinued, Routine 1004 (Given - Provider: Shaneka Velazquez RN) 0819 (Given - Provider: Christina Longo RN) Continuous Medication Order 02/19/2017 02/20/2017 02/21/2017 lactated Ringers infusion (CANCELED) 75 mL/hr, Intravenous, CONTINUOUS, Starting on 02/20/17 at 0015, Until 02/20/17 at 1006, Recovery (Recovery-Hospital Unit) 0019 (New Bag - Provider: Bernardo Hewitt, RN) PRN Medication Order 02/19/2017 02/20/2017 02/21/2017 acetaminophen (TYLENOL) tablet 1,000 mg 1,000 mg, Oral, EVERY 6 HOURS PRN, Starting on 02/19/17 at 2357, Until 02/21/17 at 1623, Pain, for MODERATE pain (4-6), Do not exceed 4,000 mg in 24 hours, Routine 0311 (Given - Provider: Elizabeth Hewitt, AKASH)0913 (Given - Provider: Shaneka Velazquez, AKASH)1825 (Given - Provider: Shaneka Velazquez, AKASH) 0022 (Given - Provider: Flavio Martin, AKASH)0819 (Given - Provider: Christina Longo RN) bisacodyl (DULCOLAX) EC tablet 10 mg 10 [...] Rectal, DAILY PRN, Starting on 02/21/17 at 0717, [...] patient unable to take PO, may give MA if ordered, Routine fentaNYL 50mcg/mL injection (CANCELED) 50 mcg, Intravenous, PER TRAUMA ANALGESIC PROTOCOL, Starting on 02/19/17 at 2036, Until 02/19/17 at 2358, Pain, Every 5-15 minutes PRN, STAT 2132 (Given - Provider: Jerrica Sepulveda, AKASH)2321 (Given - Provider: Jerrica Sepulveda RN) ibuprofen (ADVIL;MOTRIN) tablet 600 mg (CANCELED) 600 mg, Oral, EVERY 6 HOURS PRN, Starting on 02/19/17 at 2357, Until 02/20/17 at 0122, Pain, for MILD pain (1-3), Administer orally with milk or food to minimize GI irritation. Maximum dose of 3200 mg from all sources in 24 hours, Routine 57 (Given - Provider: Elizabeth Hewitt RN) iohexol (OMNIPAQUE) 350 mg/mL solution 42,000 mg (COMPLETED) 42,000 mg (120 mL), Intravenous, ONCE PRN, 1 dose, Starting on 02/19/17 at 2050, Until 02/19/17 at 2051, Per Protocol, Warning Vesicant/Irritant Medication , Routine 2051 (Given - Provider: Jimmy Romeo) lidocaine (XYLOCAINE) 10 mg/mL (1 %) injection 3 mg 3 mg (0.3 mL), Subcutaneous, ONCE PRN, 1 dose, Starting on 02/19/17 at 2357, Until 02/21/17 at 1623, for discomfort with PIV insertion, Recovery (Recovery-Hospital Unit), Routine naloxone (NARCAN) injection 0.2 mg 0.2 mg, Intravenous, EVERY 1 MIN PRN, Starting on 02/19/17 at 2357, Until Tue02/21/17 at 1623, Opioid Reversal, If respiratory rate less than 6 OR the patient is unable to arouse OR SpO2 is declining, Give for respiratory rate of less than or equal to 6 and patient is heavily sedated or unarousable. May repeat every 60 seconds to increase respiratory rate. DO NOT exceed 2 mg total dose., Recovery (Recovery-Hospital Unit), Routine oxyCODONE (ROXICODONE) immediate release tablet 10 mg(Linked Group 2) 10 mg, Oral, EVERY 4 HOURS PRN, Starting on 02/21/17 at 1301, Until Tue02/21/17 at 1623, Pain, severe pain (7-10), May give an additional 5 mg in 30 minutes once if pain not relieved., Routine 1603 (Given - Provider: Christina Longo RN) oxyCODONE (ROXICODONE) immediate release tablet 5 mg (CANCELED) 5 mg, Oral, EVERY 4 HOURS PRN, Starting on 02/20/17 at 1004, Until 02/21/17 at 1302, Pain, Routine 1027 (Given - Provider: Shaneka Velazquez RN)1438 (Given - Provider: Shaneka Velazquez RN)1825 (Given - Provider: Shaneka Velazquez RN)2209 (Given - Provider: Flavio Martin, AKASH) 0517 (Given - Provider: Flavio Martin, AKASH)1004 (Given - Provider: Christina Longo RN) oxyCODONE (ROXICODONE) immediate release tablet 5 mg(Linked Group 2) 5 mg, Oral, EVERY 4 HOURS PRN, Starting on 02/21/17 at 1301, Until 02/21/17 at 1623, Pain, mild to moderate pain (1-6), May give an additional 5 mg in 30 minutes once if pain not relieved., Routine 1603 (See Alternativ e - Provider: Christina Longo RN) simethicone (MYLICON) chewable tablet 80 mg 80 mg, Oral, EVERY 6 HOURS PRN, Starting on 02/21/17 at 0127, Until 02/21/17 at 1623, Cramping, Flatulence, Routine sodium chloride 0.9 % flush 5-20 mL 5-20 mL, Intravenous, EVERY 1 MIN PRN, Starting on 02/19/17 at 2357, Until 02/21/17 at 1623, flush, Flush pertains to all indwelling lines. Flush per protocol found in the job aid using the link provided on this medication record., Recovery (Recovery-Hospital Unit), Routine Linked Groups Order Group 1: nicotine (NICODERM CQ) 21 mg/24 hr patch 21 mgJump to med 21 mg, Transdermal, DAILY, First dose on 02/20/17 at 1145, Until Discontinued, STAT And nicotine (NICODERM CQ) 21 mg/24 hr patch Patch VerificationJump to med Transdermal, 2 TIMES DAILY, First dose on Tue02/20/17 at 2330, Until Discontinued, Verify nicotine 21 mg/24 hr patch And nicotine (NICODERM CQ) 21 mg/24 hr patch Patch RemovalJump to med Transdermal, DAILY, First dose on Tue02/21/17 at 0900, Until Discontinued, Remove nicotine 21 mg/24 hr patch Group 2: oxyCODONE (ROXICODONE) immediate release tablet 5 mgJump to med 5 mg, Oral, EVERY 4 HOURS PRN, Starting on Tue02/21/17 at 1301, Until Tue02/21/17 at 1623, Pain, mild to moderate pain (1-6), May give an additional 5 mg in 30 minutes once if pain not relieved., Routine Or oxyCODONE (ROXICODONE) immediate release tablet 10 mgJump to med 10 mg, Oral, EVERY 4 HOURS PRN, Starting on Tue02/21/17 at 1301, Until Tue02/21/17 at 1623, Pain, severe pain (7-10), May give an additional 5 mg in 30 minutes once if pain not relieved., Routine documented in this encounter Care Teams Sulfonator Operator Relationship Specialty Start Date End Date None None PCP - General 12/09/16 02/27/18 documented as of this encounter
--- OUTSIDE RECORDS SUMMARY | 2024-05-22 19:43 | XMS_ITS | Encounter Summary ---
Author Organization [facility] Address [address] [place] [address] Care Team Providers Care International Guest Coordinator Name Role Phone Adelina Baca NP Primary Care Provider [phone] Antoni Ohara DO Primary Care Provider [phone] Encounter Details Date Type Department Care Team (Late st Contact Info) Description 07/19/2023 Lab Requisition [facility] Pathology & Laboratory Medicine - [facility] [address], [place] [address] Outr Resulting Lab, Provider Social History Tobacco [...] Procedure Name Priority Date/Time Associated Diagnosis Comments LYME AB Routine 07/19/2023 16:20 EST documented in this encounter Results * LYME AB (07/19/2023 16:20 EST) Lyme Ab Negative Negative 07/21/2023 9:50 EST [facility] Blood VENOUS BLOOD / Unknown 07/19/2023 16:20 EST 07/20/2023 17:01 EST Provider Outr Resulting Lab IMMUNOLOGY A ND SEROLOGY ORDERABLES [facility] [address] [place] [address] documented in this encounter Visit Diagnoses Not on filedocumented in this encounter Care Teams International Guest Coordinator Relationship Specialty Start Date End Date Adelina Baca, NYA [address] [place] [address] PCP - General Family Medicine - Primary Care 03/30/22 05/08/24 Antoni Ohara DO [address] [place] [phone] PCP - General Family Medicine - Primary Care 05/09/24 documented as of this encounter
--- OUTSIDE RECORDS SUMMARY | 2024-05-22 19:43 | XMS_ITS | Encounter Summary ---
Author Organization [facility] [place] [address] Care Team Providers Care Computing Services Director Name Role Phone None Primary Care Provider Unavailabl e Reason for Visit * Reason Onset Date Comments Prior Authorization 12/10/2016 12/09/2016 I NPT PSYCH Encounter Details Date Type Department Care Team (Late st Contact Info) Description 12/10/2016 Telephone Psychiatry [place] [phone] Shaila Case MD [facility] [place] [address] Prior Authorization (12/09/2016 INPT PSYCH) Social History Tobacco Use Types Packs/Day Years [...] encounter Miscellaneous Notes * Telephone Encounter - Aidee Frederick - 12/10/2016 12:38 PM EDT PER FAX BACK FROM [facility] AT [facility]: AUTH #[id number] FOR 12/09/2016 INPT PSYCH EFF. 12/09/2016 - 12/14/2016 WITH REVIEW NEEDED ON 12/14/2016 documented in this encounter Plan of Treatment Not on file documented as of this encounter Visit Diagnoses Not on filedocumented in this encounter Care Teams Computing Services Director Relationship Specialty Start Date End Date None None PCP - General 12/09/16 02/27/18 documented as of this encounter
--- OUTSIDE RECORDS SUMMARY | 2024-05-22 19:43 | XMS_ITS | Encounter Summary ---
Author Organization [facility] [place] [address] Care Team Providers Care Maid Supervisor Name Role Phone None Primary Care Provider Unavailabl e Reason for Visit * Reason Onset Date Comments Prior Authorization 02/22/2017 DV 02/21/17 PSY ADMIT Encounter Details Date Type Department Care Team (Late st Contact Info) Description 02/22/2017 [place] [phone] Teagan Vyas MD [facility] [place] [place] [address] Prior Authorization ([facility] 02/21/17 PSY ADMIT) Social History Tobacco Use Types Packs/Day Years [...] Notes * Telephone Encounter - Erin Laurent Verna - 02/22/2017 12:15 PM EDT Insurance Verified: [place] Medicaid under name of SHANEKA LANDON Insurance Effective To/From Dates: 02/19/17 - current Third Green Party Vendor: Authorization number: [id number] Validity Dates: 02/21/17-02/28/17 with review due 02/28/17 Date of Service: 02/21/17 - still in house CPT/Description: NA ICD-10/Description:F20.9 (ICD-10-CM) - Schizophrenia Patient Class: PSY ADMIT How many days approved: 7 Call Reference Number: Spoke With: Phone Number: UR Contact Information UR Name Phone Number Additional Clinical Required Y/N?: review due 02/28/17 by calling Sadia Gee @ [phone], perauth letter. Notes - phone note with routing done documented in this encounter Plan of Treatment Not on file documented as of this encounter Visit Diagnoses Not on filedocumented in this encounter Care Teams Maid Supervisor Relationship Specialty Start Date End Date None None PCP - General 12/09/16 02/27/18 documented as of this encounter
--- OUTSIDE RECORDS SUMMARY | 2024-05-22 19:43 | XMS_ITS | Clinical Summary ---
Author Organization [facility] Address [address] [place] [address] Care Team Providers Care Stacker And Sorter Operator Name Role Phone Armanijohnathan Antoni Raymundo DO Primary Care Provider [phone] Allergies Active Allergy Reactions Criticality Noted Date [...] mg by mouth 2 times daily. Active Encounters Date Type Department Care Team Description 05/09/2024 14:30 EDT Office Visit [facility] Plastic, Reconstructive & Cosmetic Surgery - [place] [address], [address] [place], [place] [address] Sid Lei MD FACS from Last 3 Months Surgical History Surgery Date Site/Laterality Comments BREAST SURGERY 1998 Asymmetry - Dr. Gao ([facility]) Medical History Medical History Date Comments Thyroid disease Schizophrenia ([facility]) Family History Medical History Relation Comments Cardiac [...] on file Sexual Orientation Not on file Obstetrics History Last Filed [...] Last Done Comments Hepatitis C Screen 1980 Hepatitis B Vaccine (1 of 3 - 19+ 3-dose series) 09/03 COVID-19 Vaccine ( season) 2024 Shaneka Samano Personal/Famil y Self [address] [place] [address] Shaneka Samano Personal/Famil y Self [address] [place] [address] Shaneka Samano Personal/Famil y Self [address] [place] [address] Care Teams Stacker And Sorter Operator Relationship Specialty Start Date End Date Antoni Ohara DO [address] [place] [phone] PCP - General Family Medicine - Primary Care 05/09/24
--- OUTSIDE RECORDS SUMMARY | 2024-05-22 19:43 | XMS_ITS | Encounter Summary ---
Author Organization [facility] Address [address] [place] [address] Care Team Providers Care Lab Director Name Role Phone Lidia Benson AXMINSTER WEAVER Primary Care Provider [phone] Adelina Baca AXMINSTER WEAVER Primary Care Provider [phone] Antoni Ohara DO Primary Care Provider [phone] Encounter Details Date Type Department Care Team (Late st Contact Info) Description 03/16/2022 Lab Requisition [facility] Pathology & Laboratory Medicine - [facility] [address] [place] [address] Syeda Bai MD [address] [place] [phone] Contact with and (suspected) exposure to infections with a predominantly sexual mode of transmission Social History Tobacco Use Types Packs/Day Years [...] Procedure Name Priority Date/Time Associated Diagnosis Comments SURGICAL PATHOLOGY Today 03/15/2022 15 :00 EDT Contact with and (suspected) exposure to infections with a predominantly sexual mode of transmission documented in this encounter Results * SURGICAL PATHOLOGY (03/15/2022 15:00 EDT) Note to Patient The following pathology results have been interpreted by your pathologist and may be available to you before your health provider has had the opportunity to review them. Please allow time for your provider to receive these results and explore management options, if applicable. 03/19/2022 16:08 [facility] Final Diagnosis A. ENDOMETRIUM, BIOPSY: - Polypoid fragments proliferative endometrium with focally disordered growth pattern. 03/19/2022 16:08 [facility] Attestation There was significant resident/fellow involvement in the diagnostic evaluation of this case. By the signature below, the attending physician certifies that they have personally conducted a gross and/or microscopic examination of the described specimens and rendered or confirmed the above diagnosis. 03/19/2022 16:08 [facility] at 1608 Clinical History Uterine mass 03/19/2022 16:08 [facility] Gross Description A. Received in formalin labelled with proper patient identification (initials P, E) and endometrium is an aggregate of clotted blood in blood-tinged mucus admixed with red-brown tissue fragments and measuring 1.5 x 1.0 x 0.3 cm. Submitted entirely in A1. CECI DONOVAN(ASCP) 03/16/2022 19:04 03/19/2022 16:08 [facility] Resident/Tony w: Brit Mcneil DO 03/19/2022 16:08 [facility] Performing Lab [facility] 03/19/2022 16:08 [facility] Scanned Images 03/19/2022 16:08 [facility] Tissue ENTIRE ENDOMETRIUM / Unknown 03/15/2022 15:00 EDT 03/16/2022 16:51 EDT Syeda Bai MD PATHOLOGY ORDERABLES [facility] [address] [place] [address] documented in this encounter Visit Diagnoses Diagnosis Contact with and (suspected) exposure to infections with a predominantly sexual mode of transmission documented in this encounter Care Teams Lab Director Relationship Specialty Start Date End Date Lidia Benson NP [address] [place], [place] [address] PCP - General 09/27/17 03/29/22 Adelina Baca NP [address] [place], [place] [phone] PCP - General Family Medicine - Primary Care 03/30/22 05/08/24 Antoni Ohara DO [address] [place] [phone] PCP - General Family Medicine - Primary Care 05/09/24 documented as of this encounter
--- OUTSIDE RECORDS SUMMARY | 2024-05-22 19:43 | XMS_ITS | Encounter Summary ---
Author Organization [facility] [place] [address] Care Team Providers Care Atmospheric Sciences Professor Name Role Phone None Primary Care Provider Unavailabl e Encounter Details Date Type Department Care Team (Late st Contact Info) Description 02/21/2017 Orders [place] [address] Matthew Andrews MD [facility] [place] [address] Injury of left ankle, initial encounter Social History Tobacco Use Types [...] on file documented as of this encounter Results * XR Ankle Min [...] encounter documented in this encounter Care Teams Atmospheric Sciences Professor Relationship Specialty Start Date End Date None None PCP - General 12/09/16 02/27/18 documented as of this encounter
--- OUTSIDE RECORDS SUMMARY | 2024-05-22 19:43 | XMS_ITS | Encounter Summary ---
Author Organization [facility] Address [address] [place] [address] Care Team Providers Care User Experience Manager Name Role Phone Adelina Baca NP Primary Care Provider [phone] Antoni Ohara DO Primary Care Provider [phone] Encounter Details Date Type Department Care Team (Late st Contact Info) Description 05/19/2023 Lab Requisition [facility] Pathology & Laboratory Medicine - [facility] [address] [place], [place] [address] Outr Resulting Lab, Provider Social History Tobacco [...] Procedure Name Priority Date/Time Associated Diagnosis Comments VALPROIC ACID LEVEL Routine 05/19/2023 8:55 EDT documented in this encounter Results * (ABNORMAL) VALPROIC ACID LEVEL (05/19/2023 8:55 EDT) Valproic Acid <10(L) 50 - 100 ug/mL 05/19/2023 18:[address] [facility] Blood VENOUS BLOOD / Unknown 05/19/2023 8:55 EDT 05/19/2023 17:50 EDT Provider Outr Resulting Lab CHEMISTRY & BLOOD GAS ORDERABLES [facility] [address] [place] [address] documented in this encounter Visit Diagnoses Not on filedocumented in this encounter Care Teams User Experience Manager Relationship Specialty Start Date End Date Adelina Baca, AIRPLANE REFUELER [address] [place] [address] PCP - General Family Medicine - Primary Care 03/30/22 05/08/24 Antoni Ohara DO [address] [place] [id number] PCP - General Family Medicine - Primary Care 05/09/24 documented as of this encounter
--- OUTSIDE RECORDS SUMMARY | 2024-05-22 19:43 | XMS_ITS | Encounter Summary ---
Author Organization [facility] Address [address] [place] [address] Care Team Providers Care Airport Ramp Supervisor Name Role Phone Lidia Benson METER SETTER Primary Care Provider [phone] Adelina Baca METER SETTER Primary Care Provider [phone] Antoni Ohara DO Primary Care Provider [phone] Encounter Details Date Type Department Care Team (Late st Contact Info) Description 02/12/2020 Lab Requisition [facility] Pathology & Laboratory Medicine - [facility] [address] [place], [place] [address] Outr Resulting Lab, Provider Social History Tobacco [...] Comments CHLAMYDIA/N. GONORRHOEAE AMPLIFIED NUCLEIC ACID Routine 02/12/2020 14:45 EDT documented in this encounter Results * CHLAMYDIA/N. GONORRHOEAE AMPLIFIED RNA (02/12/2020 14:45 EDT) Neisseria gonorrhoeae Result Negative Negative 02/13/2020 16:10 EDT [facility] Chlamydia trachomatis Result Negative Negative 02/13/2020 16:10 EDT [facility] Swab ENTIRE WALL OF CERVIX / Unknown 02/12/2020 14:45 EDT 02/12/2020 20:57 EDT Provider Outr Resulting Lab MICROBIOLOGY - GENERAL ORDERABLES Performing Organization Address City/State/[facility] Co de Phone Number [facility] [address] [place] [address] documented in this encounter Visit Diagnoses Not on filedocumented in this encounter Care Teams Airport Ramp Supervisor Relationship Specialty Start Date End Date Lidia Benson NP [address] [place] [address] PCP - General 09/27/17 03/29/22 Adelina Baca NP [address] [place] [address] PCP - General Family Medicine - Primary Care 03/30/22 05/08/24 Antoni Ohara DO [address] [place] [id number] PCP - General Family Medicine - Primary Care 05/09/24 documented as of this encounter
--- OUTSIDE RECORDS SUMMARY | 2024-05-22 19:43 | XMS_ITS | Encounter Summary ---
Author Organization [facility] Address [address] [place] [address] Care Team Providers Care Industrial X Ray Operator Name Role Phone Antoni Ohara DO Primary Care Provider [phone] Reason for Visit * Reason Comments New Patient Visit Left breast smaller than the right breast * Referral (Routine) - Receiving Office to Obtain Authorization Specialty Diagnoses / Procedures Referred By Mateusz ibarra Referred To Contact Plastic Surgery Diagnoses Congenital malformation, unspecified Antoni Ohara DO [address] [place] [address] [facility] [address] [place] [id number] Referral ID Status Reason Start Date Expiration Date Visits Requested Visits Authorized [id number] Receiving Office to Obtain Authorization 1 1 Encounter Details Date Type Department Care Team (Late st Contact Info) Description 05/09/2024 14:30 EDT Office Visit [facility] - [address], [address] [address] Sid Lei MD [address] [address] Social History Tobacco Use Types Packs/Day Years [...] Diagnoses Not on filedocumented in this encounter Historical Medications * This list may reflect changes made after this encounter. Medication Sig Dispensed Refills Start Date End Date metoprolol TARtrate (LOPRESSOR) 12.5 mg Take 10 mg by mouth 2 times daily. ARIPiprazole (ABILIFY) 10 mg tablet Take 1 Tablet by mouth daily. added in this encounter Care Teams Industrial X Ray Operator Relationship Specialty Start Date End Date Antoni Ohara DO [address] [place] [address] PCP - General Family Medicine - Primary Care 05/09/24 documented as of this encounter
--- OUTSIDE RECORDS SUMMARY | 2024-05-22 19:43 | XMS_ITS | Encounter Summary ---
Author Organization [facility] Address [place] [address] Care Team Providers Care Guitar Repairer Name Role Phone None Primary Care Provider Unavailabl e Reason for Visit * Auth/Cert Specialty Diagnoses / Procedures Referred By Mateusz t Referred To Contact Diagnoses Schizophrenia, unspecified type SCHIZOPHRENIA UNSPECIFIED TYPE Procedures INPT PSYCH Referral ID Status Reason Start Date Expiration Date Visits Re quested Visits Authorized [id number] 1 1 Encounter Details Date Type Department Care Team (Latest Contact Info) Description 12/09/2016 6:22 AM EDT - 12/10/2016 1:30 PM EDT Hospital Encounter [address] [place] [id number] Shaila Case MD [facility] [place] [address] Teagan Vyas MD [facility] [place] [address] Schizophrenia, unspecified type Discharge Disposition: Home Social History Tobacco Use Types Packs/Day Years Used Date Smoking Tobacco: Former Smokeless Tobacco: Never Tobacco Cessation:Counseling Given: No Alcohol Use Standard Drinks/Week Comments [...] 36.3 ??C (97.3 ??F) 12/10/2016 8:50 AM ED T Respiratory Rate 16 12/10/2016 8:50 AM EDT Oxygen Saturation 92% 12/10/2016 8:50 AM EDT Inhaled Oxygen Concentration - - Weight 78.5 kg (173 lb 1 oz) 12/09/2016 6:30 AM EDT Height 160 cm (5' 3) 12/09/2016 6:30 AM EDT Body Mass Index 30.66 12/09/2016 6:30 AM EDT documented in this encounter Discharge Summaries * Ronak Lacy MD - 12/10/2016 11:10 AM EDT Discharge Summary Patient Name: Shaneka Landon Patient Age: 36 y.o. Language: Singaporean Race: White Ethnicity: Not nor Admit date: [...] your insurance card and plan to arrive 15minutes earlier than the appointment for new patient paperwork. If you have any questions after discharge regarding your discharge plan, please call Jaswinder at [phone]. Primary Care: None None None fax: None [...] a 36 y.o. female who presents to [facility] [place] [facility] with self reported dx of [...] because she says she is quite sure thatthe hospital staff are trying to kill her as well. During my interview, she is quite guarded, but willing to admit these thoughts are scaring her and is willing to take medications to calm her and help her think more clearly. She denies ever having tried olanzapine and after some discussion, agreesto take this and pause the interview. ?? [...] the government, I think they have a vendettaagainst me, but does not want to go into it further. She reports she drove herself down from [facility] because [facility] me, so she does not want to return there. She does not state how or why they tried to do this. ?? She admits she has attempted suicide in the past, but has no thoughts of hurting or killing herselfor anyone else right now. She denies depressive [...] a voluntary admission. She then asked are yougoing to try to kill me? Are you going to kill me? Look me in the eyes and tell me that! Satisfiedwith my answer, she continued to agree to admission. ?? Of note, she reports hypothyroidism but is not sure of Levothyroxine dose, fills her meds at [facility] Course: Shaneka Landon was voluntarily admitted to inpatient psychiatry for safety, stabilization, and medication optimization. Standard admission labs were ordered and pertinent results are located below. Pt exhibited paranoid ideation, but expressed as stress. However pt did not present w/ threat to self and others. After discussion w/ outpt provider and pt, clozapine was offered and pt didn't wantit due to weekly blood draw requirement. Pt [...] HA1C Vit Lvls: No results found for: [id number], SFOLATE UA: Lab Results Component Value Date [...] any other decline in your overall condition. [facility] Emergency Services: [facility] [phone] [facility] Emergency Services: [phone] [facility] Central Access Services: [phone] [facility] Main Line: [phone] Activity level: no restrictions from psychiatry Diet: no restrictions from psychiatry Driving: do not drive if sedated by medications Medications have been reviewed with the patient and the patient understands the use and side effects of these medications as evidenced by discussions on interdisciplinary rounds. Follow up appointments (external or yet-to-be scheduled): Discharge References/Attachments None Discharge to: Home. Discharge Condition/Prognosis: Satisfactory condition. Prognosis is dependent on patient's participation in ongoing treatment and adherence with prescribed medications. Signed: Ronak Lacy 12/10/2016 Inpatient Provider Contact Information: Emergency Services (Crisis Line): [phone] [facility]: [phone] Hospital Main Line: [phone] Associated attestation - Teagan Vyas MD - [...] coordinating discharge for this patient and included [id number] and exam, explanation of after visit instructions and medications to the patient and necessary caregivers, documentation, and prescription management. documented in this encounter Discharge Instructions * Discharge Instructions* Lissett Blevins RN - 12/10/2016 1:08 PM EDT We have made the following appointments for you. Please contact the providers directly if you need to reschedule. If the provider is new to you, please bring your insurance card and plan to arrive 15minutes earlier than the appointment for new patient paperwork. If you have any questions after discharge regarding your discharge plan, please call Jaswinder at [phone]. Primary Care: None None None fax: None Psychiatry: [facility] [address] [facility] [address] Kandace Ruiz December 16 @ 130 Therapy: Gissell Gena Dec 13 @ 130 * Patient Instructions* Ronak Lacy MD - 12/10/2016 11:40 AM EDT [...] HA1C Vit Lvls: No results found for: [id number], SFOLATE UA: Lab Results Component Value Date [...] any other decline in your overall condition. [facility] Emergency Services: [facility] [phone] [facility] Emergency Services: [phone] [facility] Central Access Services: [phone] [facility] Main Line: [phone] Activity level: no restrictions from psychiatry Diet: no restrictions from psychiatry Driving: do not drive if sedated by medications Medications have been reviewed with the patient and the patient understands the use and side effects of these medications as evidenced by discussions on interdisciplinary rounds. Follow up appointments (external or yet-to-be scheduled): documented in this encounter Medications at Time of Discharge Medication Sig Dispensed Refills Start Date End Date levothyroxine (SYNTHROID) 25 mcg TabletIndications:unknow n dose Take by mouth daily. Indications: unknown dose ARIPiprazole (ABILIFY) 30 mg Tablet Take 1 tablet by mouth nightly. 12/10/2016 03/16/2017 metFORMIN (GLUCOPHAGE) 1,000 mg Tablet Take 1,000 mg by mouth 2 times daily (with meals). 03/16/2017 topiramate (TOPAMAX) 25 mg tablet 08/06/2009 03/16/2017 benztropine (COGENTIN) 0.5 mg tablet 08/06/2009 03/16/2017 documented as of this encounter Progress Notes * Josué Hernandez RN - 12/10/2016 1:30 PM EDT Psychiatric Nursing Discharge Note Patient Completed Relapse Prevention Plan: no Patient aware of follow-up appointments: yes Patient evidences understanding of medication use and regime: yes Patient belongings returned: yes Patient left unit with: RN At what time?1315 * Syeda Castelan MHT - 12/10/2016 10:29 AM [...] Calm Notes: see above. LEAH MORALES 12/10/2016 * Ronak Lacy MD - 12/10/2016 9:06 AM [...] -encouraged pt to set an apt w/ manager of case management on Tuesday Review of Systems: (0,1,2) CONST [...] prosody. Volume appropriate for setting. Language: Appropriate, Singaporean-speaking Mood: better Affect: dysthymic, restricted Thought Process: [...] HA1C Vit Lvls: No results found for: [id number], SFOLATE UA: No results found for: GLUCOSEU, [...] Date Contacted By Treatment Team Psychiatric prescriber [facility] Kandace 12/09 Therapist TITA PCP Patient [...] Denies SI/HI or AVH. No paranoia today. Deniessfx to medications. ?? Plan: - contact with MIRTHA to see about follow-up; pt states that she has group therapy @ 130 on , has a manager of case management - cristy Conway - could leave today if team f/u in place, otherwise could benefit from more time on the medication ?? I certify that the patient requires: [X] inpatient care for psychiatric treatment, that could be reasonably expected to improve the patient's condition and/or diagnostic study. * Ronak Lacy MD - 12/09/2016 4:59 PM [...] everyday. Pt agreed w/ 8 mg perphenazine. * Eugenie Thomas MSW - 12/09/2016 3:17 PM EDT O: Patient reviewed and discussed in interdisciplinary treatment team rounds. Patient is actively psychotic and unable to participate in interview process. P: Will continue to follow with team. Complete Psychosocial Assessment as soon as possible. Available to assist with discharge planning. * Ramy Will MS - 12/09/2016 1:16 PM EDT Inpatient Daily Group Note Group: Goals, reviewed daily schedule, patients' progress and goals and read daily text. Notes: Patient did not attend group. RAMY WILL MS 12/09/2016 documented in this encounter H&P Notes * Tremayne King - 12/09/2016 6:03 AM EDT Psychiatry - Admission History & Physical Note Name: Shaneka Landon Age: 36 y.o. Gender: Female Marital Status: single Children: unknown Employment: on disability City of Residence: [address] [place] [address] Guardian/Medical Decision Maker: Outpatient providers: Current Psychiatrist: Mora Gross ([facility]) Current Therapist: PCP: None Chief Complaint: the government is trying to kill me... It's a long story History of Present Illness: (4) Shaneka Landon is a 36 y.o. female who presents to [facility] [place] 12[place]09[place]2016 with self reported dx of [...] because she says she is quite sure thatthe hospital staff are trying to kill her as well. During my interview, she is quite guarded, but willing to admit these thoughts are scaring her and is willing to take medications to calm her and help her think more clearly. She denies ever having tried olanzapine and after some discussion, agreesto take this and pause the interview. When [...] the government, I think they have a vendettaagainst me, but does not want to go into it further. She reports she drove herself down from [facility] because [facility], so she does not want to return there. She does not state how or why they tried to do this. She admits she has attempted suicide in the past, but has no thoughts of hurting or killing herselfor anyone else right now. She denies depressive [...] a voluntary admission. She then asked are yougoing to try to kill me? Are you going to kill me? Look me in the eyes and tell me that! Satisfiedwith my answer, she continued to agree to admission. Of note, she reports hypothyroidism but is not sure of Levothyroxine dose, fills her meds at [facility] in [facility]. Psychiatric Review of Systems: Sustained Depressed [...] response, reason for stopping): geodon - akathisia [place] - that was a long time ago risperdal - wt gain Substance Use History/Treatment: Tobacco: Tobacco Use Status (Tob-1) Have you used tobacco products in the past 30 days? no Tobacco Use Treatment (Tob-2: Medication) Would you like a medication to help with tobacco cessation? 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 Language: Appropriate, non-profane; Singaporean-speaking Mood: I think you are all trying to kill me Affect: Non-labile, blunted to flat, noncongruent with mood. Thought Process: [place] Associations: loose. Thought Content: +paranoid delusions, no suicidal and no homicidal ideation Perception: No visual, or tactile hallucinations. Denies AH, but seen 1-2 times quickly turning herhead and looking at the corner of the [...] y.o. female with schizophrenia who presents to [facility] for worsening psychotic sx including paranoid delusions in the context of recent change in antipsychotic. She is clearlysymptomatic with what appears to be an acute decompensation of her schizophrenic illness, with mental status exam also supportive of this. However without collateral this is purely speculation and therefore, confirmation with her outpatient team at [facility] will be essential. Plan to admitand give olanzapine PRN. Day team will need [...] trying to kill me.States there are specific peopleand people working for those people that are out to harm her. Requesting a medication change. Did take Abilify 30 yesterday morning. Going on for months, years, but it's getting worse. Denies SI/HI. hospice manager, Gissell Villalobos at [facility] Per psychiatrist at [facility], pt long stable on Abilify. Would [...] Miscellaneous Notes * Plan of Care - Lissett Blevins RN - 12/10/2016 8:49 AM EDT MULTIDISCIPLINARY TREATMENT [...] DATE: RESIDENT PHYSICIAN ATTENDING PHYSICIAN NURSING PATIENT LIFE INSURANCE ACTUARY THERAPIST SOCIAL SERVICES ASSISTANT * Plan of Care - Linda Longo RN [...] Feels zyprexa prn received on days has beenhelpful. Patient requesting to be put back on abilify as discussed with MD earlier today. Expresses that shehas changed her mind about trying perphenazine and [...] if applicable: NA CPG GOAL OUTCOME EVALUATION: * Plan of [...] She feels safe here in the hospital. She isolated in her room most of the shift. [...] [X] N/A CPG GOAL OUTCOME EVALUATION: * Initial Assessments - Jaswinder Mullins - 12/09/2016 8:41 AM EDT Initial Patient Assessment JASWINDER MULLINS RN reviewed record and discussed patient with Care Team on 12/09/2016. Introduced/reviewed role; services accepted. Shaneka Landon is a 36 y.o. year old female (1980) presenting to [address] [place] [address] for treatment with Schizophrenia, unspecified type [F20.9] Anticipated Length Of Stay (If known): unknown Patient/Caregiver Goals of Treatment: I need a med change Source of Information: Pt supplied/corraborated REASON for HOSPITALIZATION: 'people are trying to kill me' Medical/Behavioral Health History: has Schizophrenia on her problem list. Current treaters: MIRTHA Hospitalizations Within the Past 30 Days: none known PERTINENT INFO FROM H & P: Shaneka Landon is a 36 y.o. female who presents to [facility] [place] 12[place]2016 with self reported dx of [...] because she says she is quite sure thatthe hospital staff are trying to kill her as well. During my interview, she is quite guarded, but willing to admit these thoughts are scaring her and is willing to take medications to calm her and help her think more clearly. She denies ever having tried olanzapine and after some discussion, agreesto take this and pause the interview. ?? [...] the government, I think they have a vendettaagainst me, but does not want to go into it further. She reports she drove herself down from [facility] because [employer] and [employer] tried to kill me, so she does not want to return there. She does not state how or why they tried to do this. ?? She admits she has attempted suicide in the past, but has no thoughts of hurting or killing herselfor anyone else right now. She denies depressive [...] a voluntary admission. She then asked are yougoing to try to kill me? Are you going to kill me? Look me in the eyes and tell me that! Satisfiedwith my answer, she continued to agree to admission. ADVANCE DIRECTIVES: <no information> Information provided as needed HEALTH /PRESCRIPTION COVERAGE: Current Effective Coverage: Payor/Plan Subscr Sex Relation Sub. Ins. ID Effective Group Num 1. MEDICAID [place] -* SHANEKA LANDON* 1980 Female Self [id number] 12/07/16 [address] 2. [place]ICAID [place] -* SHANEKA LANDON* 1980 Female Self [id number] 12/09/16 [address] Prescription Coverage: see above Confirmed Preferred Pharmacy: [facility] in [facility] HOME ENVIRONMENT / SOCIAL & FAMILY SUPPORTS/COMMUNITY RESOURCES:(living situation, family constellation, Caregivers, current use & knowledge of community resources, etc.) Extended Emergency Contact Information Primary Emergency Contact: None,None [place] Relation: Other Lives alone with cat, [employer]URK[employer] RUBBER PRIMARY CARE PHYSICIAN: None None None MENTAL HEALTH PRESCRIBER: MIRTHA Smith Current Decision-Making Capacity: (Level of Alertness/Orientation, dementia/ cognitive deficit, if patient is a minor - assess parent/guardian, etc.) Able to consent to or refuse care. CURRENT PATIENT & FAMILY EDUCATION, COPING NEEDS: (Address patient/family satisfaction with care to date, understanding of current status and plan of care, need for family meeting, need for compressor service technician, etc.) Coping skills, med education Functional Status Prior to Admission: Able to perform ADLs/IADLs independently and with assistance Current Functional Ability: (use of assistive devices, working with PT/OT, etc.) Able to perform ADLs/IADLs independently and with assistance Anticipated Barriers to Discharge/Special Considerations: (Financial/underinsured, behavioral, lackof needed support/access to community resources, current substance abuse, homelessness, etc.) None identified Potential Needs for Transition of Care: Home Health: na Any special transportation needed at D/C to [address] [place] [address]? no Rehab/SNF: na New community resources referrals needed? no PLAN: PCM will continue to monitor progress, follow for continuity of care and assist with transition of care planning while hospitalized. AKASH ROBLESN [facility] PAGER: [phone] * Plan of Care - Jaswinder Mullins - [...] understanding of illness 2 Work with Patient Plant Care Worker to create and implement aftercare plan 3 [...] ATTENDING PHYSICIAN Teagan Vyas MD NURSING PATIENT LIFE INSURANCE ACTUARY Jaswinder LABOYN [facility] THERAPIST SOCIAL SERVICES ASSISTANT Eugenie Thomas [facility] documented in this encounter Plan of Treatment Scheduled Orders Name Type Priority Associated Diagnoses Orde r Schedule EKG 12 Lead ECG Routine Schizophrenia, unspecified type One Time for 1 Occurrences starting 12/10/2016 until 12/10/2016 documented as of this encounter Procedures Procedure Name Priority Date/Time Associated Diagnosis Comments URINALYSIS WITH REFLEX CULTURE Routine 12/10/2016 10:00 AM EDT URINE, QUALITATIVE Routine 12/09/2016 4:05 PM EDT documented in this encounter Results * (ABNORMAL) Urinalysis with reflex Culture (12/10/2016 10:00 AM EDT) Glucose, Urine Dipstick Negative Negative mg/dL [facility] Protein, Urine Dipstick Negative Negative mg/dL [facility] Bilirubin, Urine Dipstick Negative Negative mg/dL [facility] Comment: Clinical correlation required for positive Urine Bilirubin results as false positive may occur with some drugs and drug related products. If a false positive is suspected a serum total bilirubin should be considered if clinically indicated. Urobilinogen, Urine Dipstick Normal Normal mg/dL [facility] pH, Urn (dipstick) 9.0(H) 5.0 - 8.0 [facility] Blood, Urine Dipstick Negative Negative mg/dL [facility] Ketone, Urine Dipstick Negative Negative mg/dL [facility] Nitrite, Urine Dipstick Negative Negative [facility] Leukocytes, Urine Dipstick Negative Negative [facility] Appearance, Urine Dipstick Clear Clear [facility] Specific [place] Urine Automated 1.009 1.002 - 1.030 [facility] Color, Urine Dipstick Yellow Yellow [facility] RBC, Urine 1 0 - 4 /HPF [facility] WBC, Urine <1 0 - 5 /HPF [facility] Bacteria, Urine Rare(A) None /HPF [facility] Squamous Epithelial Cells Raw Data, Urine <1 <=4 /HPF [facility] Reflex to Culture No [facility] Urine specimen obtained by clean catch procedure (specimen) 12/10/2016 10:00 AM EDT 12/10/2016 10:07 AM EDT Narrative Resulting Agency Comment Spec In Lab Shaila Case MD URINE ORDERABLES Performing Organization Address [facility] Co de Phone Number [facility] [place] [address] * urine, qualitative (12/09/2016 4:05 PM EDT) Specific [place] Urine Non-automated 1.005 1.002 - 1.030 [facility] Human Chorionic Gonadotropin Qualitative, Urine Negative [facility] Comment: If Specific [place] is less than 1.010, a negative result is obtained, and is still suspected, a repeat on a first morning specimen is recommended. Urine specimen (specimen) 12/09/2016 4:05 PM EDT 12/09/2016 4:38 PM EDT Narrative Resulting Agency Comment Spec In Lab Shaila Case MD URINE ORDERABLES Performing Organization Address [facility] Co de Phone Number [facility] [place] [address] documented in this encounter Visit Diagnoses Diagnosis Schizophrenia, unspecified type Schizophrenia Unspecified schizophrenia, unspecified condition documented in this encounter Admitting Diagnoses Diagnosis Schizophrenia Unspecified schizophrenia, unspecified condition documented in this encounter Administered Medications Inactive Administered Medications - up to 3 most recent administrations Medication Order MAR Action Action Date Dose Rate Site ARIPiprazole (ABILIFY) tablet 30 mg 30 mg, Oral, NIGHTLY, First dose on Tue12/09/16 at 2200, Until Discontinued, Routine Given 12/09/2016 10:23 PM EDT 30 mg gabapentin (NEURONTIN) capsule 100 mg 100 mg, Oral, DAILY, First dose on Tue12/10/16 at 0900, Until Discontinued, Routine Given 12/10/2016 8:24 AM EDT 100 mg levothyroxine (SYNTHROID) tablet 75 mcg 75 mcg, Oral, EVERY MORNING, First dose on Tue12/09/16 at 1100, Until Discontinued, Routine Given 12/10/2016 5:11 AM EDT 75 mcg Given 12/09/2016 11:00 AM EDT 75 mcg metFORMIN (GLUCOPHAGE) tablet 500 mg 500 mg, Oral, 2 TIMES DAILY WITH MEALS, First dose on Tue12/09/16 at 1100, Until Discontinued, Routine Given 12/10/2016 8:24 AM EDT 500 mg Given 12/09/2016 5:02 PM EDT 500 mg Given 12/09/2016 11:00 AM EDT 500 mg OLANZapine zydis (ZyPREXA) disintegrating tablet 5 mg 5 mg, Oral, 2 TIMES DAILY PRN, Starting on Tue12/09/16 at 1119, Until Tue12/10/16 at 1534, Agitation, only for acute agitation, Routine Given 12/09/2016 1:27 PM EDT 5 mg topiramate (TOPAMAX) tablet 100 mg 100 mg, Oral, DAILY, First dose on Tue12/09/16 at 1100, Until Discontinued, Routine Given 12/10/2016 8:24 AM EDT 100 mg Given 12/09/2016 11:00 AM EDT 100 mg documented in this encounter Active and Recently Administered Medications Times are shown in EDT. Scheduled Medication Order 12/08/2016 12/09/2016 12/10/2016 ARIPiprazole (ABILIFY) tablet 30 mg 30 mg, Oral, NIGHTLY, First dose on Tue12/09/16 at 2200, Until Discontinued, Routine 2223 (Given - Provider: Joseline Bradford RN) gabapentin (NEURONTIN) capsule 100 mg 100 mg, Oral, DAILY, First dose on Tue12/10/16 at 0900, Until Discontinued, Routine 0824 (Given - Provid er: Josué Hernandez RN) levothyroxine (SYNTHROID) tablet 75 mcg 75 mcg, Oral, EVERY MORNING, First dose on Tue12/09/16 at 1100, Until Discontinued, Routine 1100 (Given - Provider: Josué Hernandez RN) 0511 (Given - Provider: Shanon Calderon RN) metFORMIN (GLUCOPHAGE) tablet 500 mg 500 mg, Oral, 2 TIMES DAILY WITH MEALS, First dose on Tue12/09/16 at 1100, Until Discontinued, Routine 1100 (Given - Provider: Josué Hernandez RN)1702 (Given - Provider: Linda Longo RN) 0824 (Given - Provider: Josué Hernandez, AKASH) topiramate (TOPAMAX) tablet 100 mg 100 mg, Oral, DAILY, First dose on Karla 12/09/16 at 1100, Until Discontinued, Routine 1100 (Given - Provider: Josué Hernandez RN) 0824 (Given - Provider: Josué Hernandez RN) PRN Medication Order 12/08/2016 12/09/2016 12/10/2016 OLANZapine zydis (ZyPREXA) disintegrating tablet 5 mg 5 mg, Oral, 2 TIMES DAILY PRN, Starting on Karla 12/09/16 at 1119, Until 12/10/16 at 1534, Agitation, only for acute agitation, Routine 1327 (Given - Provider: Josué Hernandez RN) documented in this encounter Care Teams Guitar Repairer Relationship Specialty Start Date End Date None None PCP - General 12/09/16 02/27/18 documented as of this encounter
--- OUTSIDE RECORDS SUMMARY | 2024-05-22 19:44 | XMS_ITS | Encounter Summary ---
Author Organization [facility] Address [address] [place] [address] Care Team Providers Care Tool Designer Apprentice Name Role Phone Lidia Benson NP Primary Care Provider [phone] Reason for Referral * Surgery (Routine) - Closed Specialty Diagnoses / Procedures [facility] Referred To Contact Pl[facility] Surgery Diagnoses Ruptured left breast implant, sequela Breast asymmetry Procedures [place] REDUCTION OF LARGE BREAST [place] REMOVAL OF IMPLANT MATERIAL Sid Lei MD [address] [phone] Sid Lei MD [address] [phone] Referral ID Status Reason Start Date Expiration Date V isits Requested Visits Authorized [id number] Closed Specialty Services Required 11/06/2017 1 0 Question Answer Reason for Request: left implant remval, right breast reduction for matching Scheduled Surgery Date: 11/06/2017 Laterality: Bilateral Location of Procedure: [facility] [place] [facility]/ Outpt Anesthesia: General Estimated Length of Procedure: 4h CPT Code: 33636, 1933 Reason for Visit * Reason Comments Follow-up Implant on left side - discuss removal Encounter Details Date Type Department Care Team (Late st Contact Info) Description 10/19/2017 10:15 EST Office Visit [facility] Plastic, Reconstructive & Cosmetic Surgery - [address], [address] [place] [phone] Sid Lei MD [facility] [address] [facility] [address] [place] [address] Breast asymmetry (Primary Dx); Ruptured left breast implant, sequela Discharge Disposition: Auto Discharge Social History Tobacco Use Types Packs/Day Years [...] Discharge documented in this encounter Progress Notes * Sid Lei MD - 10/19/2017 1015 EST Shaneka returns. She has a deflated left saline implant. This was placed for congential breast asymmetry. This was covered by insurance. She continues to have a deflated implant which is uncomfortable. Her interval medical and surgical history were reviewed and have not changed significantly. Herphysical findings are unchanged. We discussed the previous surgical plan of removing the implant and reducing the opposite breast to match which would be a permanent solution to her asymmetry. Her insurance company has previously refused to cover this. We will resubmit and hope that logic prevails. I spent 35 minutes with this patient; 30 minutes was spent in counseling and coordination of care as described in the progress note. documented in this encounter Plan of Treatment Scheduled Referrals Name Type Priority Associated Diagnoses Orde r Schedule AMB CONS/FOLLOW UP SURGERY SCHED ORD Outpatient Referral Routine Ruptured left breast implant, sequela Breast asymmetry Ordered: 11/06/2017 documented as of this encounter Visit Diagnoses Diagnosis Breast asymmetry- Primary Other specified disorders of breast Ruptured left breast implant, sequela documented in this encounter Discontinued Medications Medication Sig Discontinue Reason Start Date End Da te ARIPiprazole (ABILIFY) 20 mg tablet Take 20 mg by mouth daily. Patient Stopped Taking 10/19/2017 benztropine (COGENTIN) 0.5 mg tablet Take 0.5 mg by mouth 2 times daily. Patient Stopped Taking 10/19/2017 MEDROXYPROGESTERONE ACETATE (PROVERA ORAL) Take by mouth Every other month Patient Stopped Taking 10/19/2017 documented as of this encounter Care Teams Tool Designer Apprentice Relationship Specialty Start Date End Date Lidia Benson NP [address] [place] [address] PCP - General 09/27/17 03/29/22 documented as of this encounter
--- OUTSIDE RECORDS SUMMARY | 2024-05-22 19:44 | XMS_ITS | Encounter Summary ---
Author Organization [facility] Address [address] [place] [address] Care Team Providers Care Ethnic Studies Professor Name Role Phone Marie Dixon MD Primary Care Provider [phone] Reason for Visit * Reason Comments Pre-op Exam Encounter Details Date Type Department Care Team (Late st Contact Info) Description 10/17/2015 14:00 EST Office Visit [place] Plastic, Reconstructive & Cosmetic Surgery - [address], [address] [place] [phone] Sid Lei MD [address] [place] [phone] Breast asymmetry (Primary Dx); Ruptured left breast implant, sequela Social History Tobacco Use Types Packs/Day Years [...] as of this encounter Progress Notes * Sid Lei MD - 10/19/2015 6114 EST Shaneka returns to discuss options for [...] this patient; 20 minutes was spent in [id number] counseling for the abovediagnosis. documented in this encounter Plan of Treatment Not on file documented as of this encounter Visit Diagnoses Diagnosis Breast asymmetry- Primary Other specified disorders of breast Ruptured left breast implant, sequela documented in this encounter Discontinued Medications Medication Sig Discontinue Reason Start Date End Da te divalproex (DEPAKOTE) 250 mg delayed release tablet Take 250 mg by mouth daily Dose adjustment 10/17/2015 documented as of this encounter Care Teams Ethnic Studies Professor Relationship Specialty Start Date End Date Marie Dixon MD [address] [place] [phone] PCP - General 12/27/14 09/26/17 documented as of this encounter
--- OUTSIDE RECORDS SUMMARY | 2024-05-22 19:44 | XMS_ITS | Encounter Summary ---
Author Organization [facility] Address [address] [place] [address] Care Team Providers Care Demolition Engineer Name Role Phone Marie Dixon MD Primary Care Provider [phone] Reason for Visit * Reason Comments Breast Problem symmetry Encounter Details Date Type Department Care Team (Late st Contact Info) Description 07/25/2015 11:00 EST Office Visit [facility] Plastic, Reconstructive & Cosmetic Surgery - [address], [address] [place] [phone] Sid Lei MD [address] [place] [phone] Breast asymmetry (Primary Dx) Social History Tobacco Use Types Packs/Day Years [...] - Inhaled Oxygen Concentration - - Weight 88.9 kg (196 lb) 07/25/2015 1103 EST Height 160 cm (5' 2.99) 07/25/2015 1103 EST Body Mass Index 34.73 07/25/2015 1103 EST documented in this encounter Progress Notes * Sid Lei MD - 08/10/2015 2029 EST Shaneka returns to discuss options for treatment following the deflation of her left breast implant. When she was last here I offered her explanation of the left breast with a lift of the right breast. She has seen both Dr. Saab and me previously. Neither of us felt that bilateral augmentation was a reasonable option for her. Shaneka seems content with the re-discussion and has decided to schedule surgery. I spent 30 minutes with this patient; 25 minutes was spent in [id number] counseling for the abovediagnosis. documented in this encounter Plan of Treatment Not on file documented as of this encounter Visit Diagnoses Diagnosis Breast asymmetry- Primary Other specified disorders of breast documented in this encounter Historical Medications * This list may reflect changes made after this encounter. Medication Sig Dispensed Refills Start Date End Date metFORMIN (GLUCOPHAGE) 500 mg tablet Take 1,000 mg by mouth daily. levothyroxine (SYNTHROID) 75 mcg tablet Take 1 Tablet by mouth daily. MEDROXYPROGESTERONE ACETATE (PROVERA ORAL) Take by mouth Every other month 10/19/2017 divalproex (DEPAKOTE) 250 mg delayed release tablet Take 250 mg by mouth daily 10/17/2015 added in this encounter Care Teams Demolition Engineer Relationship Specialty Start Date End Date Marie Dixon MD [address] [place] [phone] PCP - General 12/27/14 09/26/17 documented as of this encounter
--- OUTSIDE RECORDS SUMMARY | 2024-05-22 19:44 | XMS_ITS | Encounter Summary ---
Author Organization [facility] Address [address] [place] [address] Care Team Providers Care Manager File Name Role Phone Marie Dixon MD Primary Care Provider [phone] Reason for Visit * Reason Comments Breast Implant Problem left breast defla jenna. Encounter Details Date Type Department Care Team (Late st Contact Info) Description 01/01/2015 14:30 EDT Office Visit [facility] Plastic, Reconstructive & Cosmetic Surgery - [address], [address] [place] [phone] Sid Lei MD [address] [place] [phone] Breast asymmetry (Primary Dx) Social History [...] Progress Notes * Sid Lei MD - 04/11/2015 7063 EDT Reason for Visit /HPI: Shaneka was [...] right to obtain better symmetry or implant exchangeand right mastopexy if the patient was to stop smoking. Patient Active Problems: There is no problem list on file for this patient. Past Medical History: Past Medical History Diagnosis Date ??? Thyroid disease ??? Schizophrenia Past Surgical History: Past Surgical History Procedure Laterality Date ??? Breast surgery 1998 Asymmetry - Dr. Gao ([facility]) Family History: Family History Problem Relation Age [...] has good shape and is appropriate for herbody habitus. I explained that her right breast does not have good shape and even with re-augmentation of the left breast she would still have significant asymmetry as compared to the right despite similar volumes. I only offered her the option of left explantation and right reduction. She is accept ing of this and she will decide how she wants to proceed. I spent 60 minutes with this patient; 55 minutes was spent in [id number]-[id number] counseling for the abovediagnosis. Sid Lei MD 04/11/2015 18:57 documented in this encounter Plan of Treatment Not on file documented as of this encounter Visit Diagnoses Diagnosis Breast asymmetry- Primary Other specified disorders of breast documented in this encounter Care Teams Manager File Relationship Specialty Start Date End Date Marie Dixon MD [address] [place] [phone] PCP - General 12/27/14 09/26/17 documented as of this encounter
--- OUTSIDE RECORDS SUMMARY | 2024-05-22 19:44 | XMS_ITS | Encounter Summary ---
Author Organization [facility] Address [address] [place] [address] Care Team Providers Care Housekeeping Supervisor Name Role Phone Marie Dixon MD Primary Care Provider [phone] Reason for Visit * Reason Onset Date Comments Other 01/07/2015 questions about breast asymmetry sx Encounter Details Date Type Department Care Team (Late st Contact Info) Description 01/07/2015 Telephone [facility] Plastic, Reconstructive & Cosmetic Surgery - [address], [address] [place] [address] Sid Lei MD [address] [place] [phone] Other (questions about breast asymmetry sx) Social History Tobacco Use Types Packs/Day Years [...] encounter Miscellaneous Notes * Telephone Encounter - Amina De La Garza RN - 01/10/[address] Lei and returned her call and let her know that Dr. Lei states that he would be able to do what he offered her the last time she was here, not both breasts with implants. * Telephone Encounter - Nan Martins - 01/07/2015 1677 EDT Patient wants to know if she can have both breasts implanted? If not she is leaning toward Lt breast implant, RT breast lifted. documented in this encounter Plan of Treatment Not on file documented as of this encounter Visit Diagnoses Not on filedocumented in this encounter Care Teams Housekeeping Supervisor Relationship Specialty Start Date End Date Marie Dixon MD [address] [place] [phone] PCP - General 12/27/14 09/26/17 documented as of this encounter
--- OUTSIDE RECORDS SUMMARY | 2024-05-22 19:44 | XMS_ITS | Encounter Summary ---
Author Organization [facility] Address [address] [place] [address] Care Team Providers Care Tin Dipper Name Role Phone Marie Dixon MD Primary Care Provider [phone] Reason for Visit * Reason Onset Date Comments Other 01/15/2015 Encounter Details Date Type Department Care Team (Late st Contact Info) Description 01/15/2015 Telephone [facility] Plastic, Reconstructive & Cosmetic Surgery - [address], [address] [place], [place] [phone] Sid Lei MD [address] [phone] Other Social History Tobacco Use Types Packs/Day Years [...] encounter Miscellaneous Notes * Telephone Encounter - Lidia Reed - 01/15/2015 0855 EDT Shaneka wants to discuss her options. Dr. Becerra notes are not done. documented in this encounter Plan of Treatment Not on file documented as of this encounter Visit Diagnoses Not on filedocumented in this encounter Care Teams Tin Dipper Relationship Specialty Start Date End Date Marie Dixon MD [address] [place] [phone] PCP - General 12/27/14 09/26/17 documented as of this encounter
--- OUTSIDE RECORDS SUMMARY | 2024-05-22 19:44 | XMS_ITS | Encounter Summary ---
Author Organization [facility] Address [address] [place] [address] Care Team Providers Care Tilt Tray Driver Name Role Phone Violetta Ponce NP Primary Care Provider Reason for Visit * Reason Comments Breast Implant Problem Encounter Details Date Type Department Care Team (Latest Contact Info) Description 01/17/2014 9:00 EDT Office Visit [facility] Plastic, Reconstructive & Cosmetic Surgery - [address], [address] [place] [address] Courtney Elkins MD [address] [facility] [address] [place] [phone] Breast asymmetry (Primary Dx) Discharge Disposition: Auto Discharge Social History Tobacco Use Types Packs/Day Years Used Date Smoking Tobacco: Every Day Cigarettes Alcohol Use Standard Drinks/Week Comments Not Asked [...] - Inhaled Oxygen Concentration - - Weight 87.1 kg (192 lb) 01/17/2014 0912 EDT Height 160 cm (5' 3) 01/17/2014 0912 EDT Body Mass Index 34.01 01/17/2014 0912 EDT documented in this encounter Discharge Diagnoses Diagnosis 611.89 OTHER SPECIFIED DISORDERS OF BREAST[ICD-9-CM] documented in this encounter Discharge Disposition Disposition Code Departure Means Destination Auto Discharge documented in this encounter Progress Notes * Courtney Elkins MD - 01/17/2014 8208 EDT This is a 33-year-old referred in consultation by Violetta Ponce in [facility] for considerationfor breast balancing. The patient relates that in [address] Gao at [facility]. She had a significant breast asymmetry. She reports the implant was placed on the left side, and that she had a lift on the right. Her symmetry was okay, but not great. Quite soon after surgery she reports that she got elbowed and the implant deflated. She has not been back to [facility] recently. She reports that she smokes about a pack a day and she has 2 children, ages 9 and 11. 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 She has a history of schizophrenia. She works with the [employer] and someone there manages her medications and she also sees a counselor. Medications were reviewed in [facility]. She denies allergies. On examination, she is 5 feet 3 inches, 192 pounds. She has significant breast asymmetry. The left side shows a well-healed periareolar incision and the areolar diameter has spread to 6.3 cm. I cannot palpate the implant on that side. On the right side of her areolar diameter has spread to about 7 cm and her breasts at least a full cup size larger than the left side with a little bit of ptosis. No palpable mass. Sternal notch to nipple distance 22 cm left, 24 cm right. ASSESSMENT AND PLAN: This 33-year-old woman has significant breast asymmetry. She was originally treated with an implant on the left, but that was something like 16 years ago and her body has changedand she has gained weight. At this point, my primary recommendation would be for her to quit smoking. If she was able to quit smoking, we could potentially remove the left deflated implant and leave it out and then reduce the right to give her better symmetry. Another option would be to exchange the left implant for a new one and mastopexy on the right, but I think this would give her less long-term symmetry and that removing the implant entirely and keeping her just with her own breast tissue would probably be a better long-term solution and would be simpler. I would like to try to get her records from [facility], so she signed a release for that. I also feel it would be necessary for her to quit smoking entirely prior to proceeding with surgery. She seemed to have a very delayed responsetime, perhaps due to some of her psychiatric medications, and I have asked her to think about whether she would be accepting of reducing the right side in order to improve her symmetry. Once I am able to review her records, we could rediscuss. I spent a total of 25 minutes in [id number]-[id number] time with this patient and 25 minutes of that time was spent in counseling and coordination of care as described above. cc: Violetta Ponce at [facility] documented in this encounter Plan of Treatment Not on file documented as of this encounter Visit Diagnoses Diagnosis Breast asymmetry- Primary Other specified disorders of breast documented in this encounter Historical Medications * This list may reflect changes made after this encounter. Medication Sig Dispensed Refills Start Date End Date divalproex (DEPAKOTE) 500 mg delayed release tablet Take 4 Tablets by mouth at bedtime. topiramate (TOPAMAX) 25 mg tablet Take 1 Tablet by mouth daily. benztropine (COGENTIN) 0.5 mg tablet Take 0.5 mg by mouth 2 times daily. 10/19/2017 ARIPiprazole (ABILIFY) 20 mg tablet Take 20 mg by mouth daily. 10/19/2017 added in this encounter Care Teams Tilt Tray Driver Relationship Specialty Start Date End Date Violetta Ponce NP [address] [place] [phone] PCP - General 09/09/11 12/26/14 documented as of this encounter
--- OUTSIDE RECORDS SUMMARY | 2024-05-22 19:44 | XMS_ITS | Encounter Summary ---
Author Organization [facility] Address [address] [place] [address] Care Team Providers Care Banker Mason Name Role Phone Lidia Benson PROJECT MANAGER INTERIOR DESIGN Primary Care Provider [phone] Adelina Baca PROJECT MANAGER INTERIOR DESIGN Primary Care Provider [phone] Antoni Ohara DO Primary Care Provider [phone] Encounter Details Date Type Department Care Team (Late st Contact Info) Description 12/02/2019 Lab Requisition [facility] Pathology & Laboratory Medicine - [address] [address] Unknown, Provider, Social History Tobacco Use Types Packs/Day Years [...] Procedure Name Priority Date/Time Associated Diagnosis Comments SEX HORMONE BINDING GLOBULIN Routine 12/01/2019 9:25 EDT documented in this encounter Results * SEX HORMONE BINDING GLOBULIN (12/01/2019 9:25 EDT) Sex Hormone Bnd Glob 11.4 See Note nmol/L 12/03/2019 10:17 EDT [facility] Comment: NOTE: ---- Reference Ranges for Females Pre-Menopausal: ?>10.8 nmol/L Post-Menopausal: ?? 23.2 - 159.1 nmol/L Reference ranges for Sex Hormone Binding Globulin in female patients <21 years old have not been established. Blood VENOUS BLOOD / Unknown 12/01/2019 9:25 EDT 12/02/2019 15:58 EDT Narrative [facility] - 12/03/2019 10:17 EDT The results of this assay can be falsely lowered due to the consumption of Biotin. Provider Unknown CHEMISTRY & BLOOD GA S ORDERABLES Performing Organization Address City/State/[facility] Co de Phone Number [facility] [address] [place] [address] documented in this encounter Visit Diagnoses Not on filedocumented in this encounter Care Teams Banker Mason Relationship Specialty Start Date End Date Lidia Benson NP [address] [place] [address] PCP - General 09/27/17 03/29/22 Adelina Baca NP [address] [place] [address] PCP - General Family Medicine - Primary Care 03/30/22 05/08/24 Antoni Ohara DO [address] [place] [phone] PCP - General Family Medicine - Primary Care 05/09/24 documented as of this encounter
--- OUTSIDE RECORDS SUMMARY | 2024-05-22 19:44 | XMS_ITS | Encounter Summary ---
Author Organization [facility] Address [address] [place] [address] Care Team Providers Care Account Manager Trainee Name Role Phone Unknown, Provider Primary Care Provider Encounter Details Date Type Department Care Team (Late st Contact Info) Description 10/16/2010 Results Only [facility] Laboratory Services - [facility] ([facility]) [address] [place], [place] [id number] Violetta Ponce, ORDER PICKER/ASSEMBLER [address] [facility] [address] [place] [phone] Social History Tobacco Use Types Packs/Day Years Used Date Smoking Tobacco: Never Assessed Sex and Gender Information Value Date Recorded Sex Assigned at Not on file Gender Identity Not on file Sexual Orientation Not on file documented as of this encounter Plan of Treatment Not on file documented as of this encounter Procedures Procedure Name Priority Date/Time Associated Diagnosis Comments CYTOPATHOLOGY Routine 10/16/2010 0:00 EST documented in this encounter Results * CYTOPATHOLOGY (10/16/2010 0:00 EST) Pathology Report: CYTOPATHOLOGY REPORT ? Reports generated via electronic interface contain original data; ? however they are lacking the format of the original report. ? Caution should be taken when reading/interpreti ng unformatted reports. ? Name: ? SHANEKA LANDON ? Accession #: ? [id number] ? : ? 1980 (Age: 30) ??F ?Collect Date: ? 10/16/2010 ? Location: ? [facility] ? Receive Date: ? 10/20/2010 ? Provider: ?VIOLETTA W NAT ORDER PICKER/ASSEMBLER ? Copy to: ? Specimen/Source: ?Pap Test, Cervix/Endocervix, ThinPrep Imaging System ? with manual evaluation ? Last Menstrual Period: ? not x 1 yr ? Hormonal/Contracep tive Status: ? Tubal ligation: 2004 ? SPECIMEN ADEQUACY ? Satisfactory for Evaluation ? - transformation zone component present ? GENERAL CATEGORIZATION ? Negative for Intraepithelial Lesion or Malignancy ? INTERPRETATION ? Reactive cellular changes associated with inflammation present (includes ?? repair). ? Shift in chan present suggestive of bacterial vaginosis. ? Document reviewed and electronically signed by: ? Monie J. Palomares, MD PhD ? Report Date: ??10/23/2010 13:16 ? End of Report ? [facility] 10/16/2010 10/20/2010 Violetta Ponce ORDER PICKER/ASSEMBLER PATHOLOGY ORDERABLES [facility] [address] [place] [address] documented in this encounter Visit Diagnoses Not on filedocumented in this encounter Care Teams Account Manager Trainee Relationship Specialty Start Date End Date Unknown, Provider, PCP - General 09/08/09 09/08/11 documented as of this encounter
--- OUTSIDE RECORDS SUMMARY | 2024-05-22 19:44 | XMS_ITS | Encounter Summary ---
Author Organization [facility] Address [address] [place] [address] Care Team Providers Care Water Quality Specialist Name Role Phone Lidia Tinsley NP Primary Care Provider Encounter Details Date Type Department Care Team (Late st Contact Info) Description 02/22/2019 Results Only [facility] [phone] Lidia Tinsley NP [address] [place], [place] [id number] Social History Tobacco Use Types Packs/Day Years [...] Procedure Name Priority Date/Time Associated Diagnosis Comments PAP TEST- RESULT ONLY Routine 02/22/2019 0:00 EDT documented in this encounter Results * PAP TEST- RESULT ONLY (02/22/2019 0:00 EDT) Pathology Report: CYTOPATHOLOGY REPORT Reports generated via electronic interface contain original data; however they are lacking the format of the original report. Caution should be taken when reading/interpreti ng unformatted reports. Name: ? SHANEKA LANDON ? Accession #: ? [id number] ? : ? 1980 (Age: 38) ??F ?Collect Date: ? 02/22/2019 ? Location: ? [facility] ? Receive Date: ? 02/23/2019 ? Provider: LIDIA TINSLEY FRUIT GRADER OPERATOR Copy to: ? Final Report SPECIMEN ADEQUACY [...] ?Date Complete: ? 02/27/2019 ? By: ??System Interface ? Date Reported: ? 02/27/2019 ? Interpretation RESULT: Negative for HPV. No E6 or E7 mRNA is detected from HPV types 16,18,31,33,35, 39,45,51,52,56,58, 59,66, and 68 by installer helper mediated amplification. Comments Document reviewed and electronically signed by: ? System Interface ? Report date: 02/27/2019 By the signature above, the attending physician certifies that he/she has personally conducted a gross and/or microscopic examination of the described specimens and rendered or confirmed the above diagnosis. End of Report [facility] 02/22/2019 02/23/2019 Lidia Tinsley NP PATHOLOGY ORDERABLES Performing Organization Address City/State/[facility] Co de Phone Number [facility] [address] [place] [address] documented in this encounter Visit Diagnoses Not on filedocumented in this encounter Care Teams Water Quality Specialist Relationship Specialty Start Date End Date Lidia [place] [address] [place] [address] PCP - General 09/27/17 03/29/22 documented as of this encounter
--- OUTSIDE RECORDS SUMMARY | 2024-05-22 19:44 | XMS_ITS | Encounter Summary ---
Author Organization [facility] Address [address] [place] [address] Care Team Providers Care Pharmacology Associate Name Role Phone Violetta Ponce MANAGER SUPPORT SERVICES Primary Care Provider Encounter Details Date Type Department Care Team (Late st Contact Info) Description 10/25/2013 Results Only [facility] Laboratory Services - [facility] ([facility] [address] [place], [place] [phone] Violetta Ponce, MANAGER SUPPORT SERVICES [address] [facility] [address] [place] [address] Social History Tobacco Use Types [...] Diagnosis Comments PAP TEST- RESULT ONLY Routine 10/25/2013 0:00 EST documented in this encounter Results * PAP TEST- RESULT ONLY (10/25/2013 0:00 EST) Pathology Report: CYTOPATHOLOGY REPORT Reports generated via electronic interface contain original data; however they are lacking the format of the original report. Caution should be taken when reading/interpreti ng unformatted reports. Name: ? SHANEKA LANDON ? Accession #: ? [id number] ? : ? 1980 (Age: 33) ??F ?Collect Date: ? 10/25/2013 ? Location: ? [facility] ? Receive Date: ? 10/26/2013 ? Provider: VIOLETTA PONCE MANAGER SUPPORT SERVICES Copy to: ? Final Report SPECIMEN ADEQUACY ? Satisfactory for Evaluation - transformation zone component present GENERAL CATEGORIZATION ? Negative for Intraepithelial Lesion or Malignancy INTERPRETATION ? Reactive cellular changes associated with inflammation present (includes repair). Shift in chan present suggestive of bacterial vaginosis. Last Menstrual Period: 10/06/13 Hormonal/Contracep tive status: Provera: Q mouth Specimen/Source: ??Pap Test, Cervix/Endocervix, ThinPrep Imaging System with manual evaluation Document reviewed and electronically signed by: ? INDERJIT CHA MD ? Report ??Date: 11/02/2013 16:29 HPV with Pap Test ? Date Ordered: ? 11/02/2013 ? Status: ?? Signed Out ?Date Complete: ? 11/07/2013 ? By: ??System Interface ? Date Reported: ? 11/07/2013 ? Interpretation RESULT: Negative for HPV. No E6 or E7 mRNA is detected from HPV types 16,18,31,33,35, 39,45,51,52,56,58, 59,66, and 68 by flame annealing machine operator mediated amplification. Comments Document reviewed and electronically signed by: ? System Interface ? Report date: 11/07/2013 By the signature above, the attending physician certifies that he/she has personally conducted a gross and/or microscopic examination of the described specimens and rendered or confirmed the above diagnosis. End of Report [facility] 10/25/2013 10/26/2013 Violetta Ponce NP PATHOLOGY ORDERABLES Performing Organization Address City/State/[facility] Co de Phone Number [facility] [address] [place] [address] documented in this encounter Visit Diagnoses Not on filedocumented in this encounter Care Teams Pharmacology Associate Relationship Specialty Start Date End Date Violetta Ponce, MANAGER SUPPORT SERVICES [address] [place] [phone] PCP - General 09/09/11 12/26/14 documented as of this encounter
--- OUTSIDE RECORDS SUMMARY | 2024-05-22 19:44 | XMS_ITS | Encounter Summary ---
Author Organization [facility] Address [address] [place] [address] Care Team Providers Care Osha Inspector Name Role Phone Unknown, Provider Primary Care Provider [phone] Encounter Details Date Type Department Care Team (Late st Contact Info) Description 09/08/2011 Results Only [facility]- [facility] [phone] Sariah Pulliam, DO [address] [place] [address] Social History Tobacco Use Types Packs/Day Years Used Date Smoking Tobacco: Never Assessed Sex and Gender Information Value Date Recorded Sex Assigned at Not on file Gender Identity Not on file Sexual Orientation Not on file documented as of this encounter Plan of Treatment Not on file documented as of this encounter Procedures Procedure Name Priority Date/Time Associated Diagnosis Comments SURGICAL PATHOLOGY Routine 09/08/2011 0:00 EST documented in this encounter Results * SURGICAL PATHOLOGY (09/08/2011 0:00 EST) Pathology Report: SURGICAL PATHOLOGY REPORT Reports generated via electronic interface contain original data; however they are lacking the format of the original report. Caution should be taken when reading/interpreti ng unformatted reports. Name: ? SHANEKA LANDON ? Accession #: ? [id number] ? : ? 1980 (Age: 31) ??F ? Collect Date: ? 09/08/2011 ? Location: ? [facility] ? Receive Date: ? 09/08/2011 ? Provider: SARIAH PULLIAM DO Copy to: LORY JOHNS PERSONNEL CLERKS SUPERVISOR ? Final Pathologic Diagnosis: ? Pilonidal cyst, resection: - Pilonidal cyst with associated acute and chronic inflammation. Document reviewed and electronically signed by: CLAUDE [...] is a 5.0 x 1.2 cm, unoriented, elliptical excision of stokes skin excised to a depth of 1.7 cm. ??Centrally along the entire length of the skin is a 0.2 cm in width by 0.3 cm in maximum depth, depressed, linear crease and, within this crease near one end, there is a 0.1 cm in diameter defect into the underlying soft tissue. The subcutaneous tissue is stokes-yellow, indurated, and partially fragmented with a dusky cavitary area present at the partially fragmented region at the surface. Also present in the specimen container is an additional, 3.5 x 1.2 x 0.7 cm, irregular fragment of indurated, stokes-yellow, fibrofatty tissue. ??The margins of both pieces of tissue are inked black. ??Upon sectioning the larger piece of tissue, the cut surface is composed of yellow-white and stokes-brown, indurated, fibrofatty tissue with a cystic cavity extending through the subcutaneous tissue, predominantly within the fragmented region. ??The cut surface of the separate fragment is composed of yellow and white, fibrofatty, indurated tissue with no discrete cavitary regions identified. ??Facilities Clerk sections are submitted as follows: BLOCK MENESES A1 ?Section of specimen with skin at fragmented deep tissue A2 ?Additional sections of specimen with skin with indwelling cystic cavitary area A3 ?Facilities Clerk sections of separate fragments of tissue (Jeanette Decker)/[facility] End of Report [facility] 09/08/2011 09/08/2011 16: 13 EST Sariah Pulliam DO PATHOLOGY ORDERABLES [facility] [address] [place] [address] documented in this encounter Visit Diagnoses Not on filedocumented in this encounter Care Teams Osha Inspector Relationship Specialty Start Date End Date Unknown, Provider, PCP - General 09/08/09 09/08/11 documented as of this encounter
--- OUTSIDE RECORDS SUMMARY | 2024-05-22 19:44 | XMS_ITS | Encounter Summary ---
Author Organization [facility] Address [address] [place] [address] Care Team Providers Care Custodial Engineer Name Role Phone Lidia Benson METALSMITH HELPER Primary Care Provider [phone] Encounter Details Date Type Department Care Team (Late st Contact Info) Description 02/23/2019 Results Only [facility] [phone] Unknown, Provider, Social History Tobacco Use Types [...] Pending Results Name Type Priority Associated Diagnoses Date /Time OUTSIDE CD - CT NEURO Imaging 8:13 EDT OUTSIDE CD - CT NEURO Imaging 8:13 EDT documented as of this encounter Visit Diagnoses Not on filedocumented in this encounter Care Teams Custodial Engineer Relationship Specialty Start Date End Date Lidia Benson NP [address] [place], [place] [address] PCP - General 09/27/17 03/29/22 documented as of this encounter
--- OUTSIDE RECORDS SUMMARY | 2024-05-22 19:44 | XMS_ITS | Encounter Summary ---
Author Organization [facility] Address [address] [place] [address] Care Team Providers Care Moisture Conditioner Operator Name Role Phone Unavailable Primary Care Provider Unavailabl e Encounter Details Date Type Department Care Team (Late st Contact Info) Description 07/30/2009 Orders Only [facility] Laboratory Services - [facility] [address] [place], [place] [address] Violetta Ponce, NYA [address] [facility] [address] [place] [address] Social History Tobacco Use Types Packs/Day Years Used Date Smoking Tobacco: Never Assessed Sex and Gender Information Value Date Recorded Sex Assigned at Not on file Gender Identity Not on file Sexual Orientation Not on file documented as of this encounter Plan of Treatment Not on file documented as of this encounter Procedures Procedure Name Priority Date/Time Associated Diagnosis Comments HPV DETECTION, HIGH RISK TYPES Routine 07/30/2009 7:32 EST CYTOPATHOLOGY Routine 07/30/2009 0:00 EST documented in this encounter Results * HUMAN PAPILLOMA VIRUS DNA TEST (07/30/2009 7:32 EST) Specimen Description Cervix, ThinPrep vial [facility] Result Negative for HPV types 16, 18, 31, 33, 35, 39, 45, 51, 52, 56, 58, 59, and 68. [facility] Report Status Final 08/13/2009 [facility] 07/30/2009 7:32 EST 08/12/2009 7:32 EST Violetta Ponce NP MICROBIOLOGY - GENER AL ORDERABLES [facility] [address] [place] [address] * CYTOPATHOLOGY (07/30/2009 0:00 EST) Pathology Report: CYTOPATHOLOGY REPORT ? Reports generated via electronic interface contain original data; ? however they are lacking the format of the original report. ? Caution should be taken when reading/interpreti ng unformatted reports. ? Name: ? SHANEKA LANDON ? Accession #: ? [id number] ? : ? 1980 (Age: 28) ??F ?Collect Date: ? 07/30/2009 ? Location: ? [facility] ? Receive Date: ? 08/05/2009 ? Provider: ?VIOLETTA W BESCH MECHANICAL MAINTENANCE INSTRUCTOR ? Copy to: ? Specimen/Source: ?Pap Test, Cervix/Endocervix, ThinPrep Imaging System ? with manual evaluation ? Last Menstrual Period: ? O X 2 years ? Other: ? HPVDX - HPV testing requested regardless of diagnosis on current ThinPrep Pap ?? test. ? SPECIMEN ADEQUACY ? Satisfactory for Evaluation ? - transformation zone component present ? GENERAL CATEGORIZATION ? Epithelial Cell Abnormality ? INTERPRETATION ? Squamous Cell Abnormality - Atypical squamous cells, undetermined ? significance (ASC-US). ? EDUCATIONAL NOTES/RECOMMENDATI ONS ? [facility] recommends following the 2006 Consensus Guidelines for the Management of Women with Abnormal Cervical Cancer Screening Tests (JLGTD, ? 2007;11(4):201-222 ). ??Consensus guidelines are available online at ? www.ASCCP.org. ? Document reviewed and electronically signed by: ? Brian Sid Edis, MD ? Report Date: ??08/11/2009 10:25 ? End of Report ? [facility] 07/30/2009 08/05/2009 Violetta Ponce MECHANICAL MAINTENANCE INSTRUCTOR PATHOLOGY ORDERABLES [facility] [address] [place] [address] documented in this encounter Visit Diagnoses Not on filedocumented in this encounter
--- OUTSIDE RECORDS SUMMARY | 2024-05-22 19:44 | XMS_ITS | Encounter Summary ---
Author Organization [facility] Address [address] [place] [address] Care Team Providers Care Bumboater Name Role Phone Lidia Benson CATALYTIC CONVERTER OPERATOR HELPER Primary Care Provider [phone] Adelina Baca CATALYTIC CONVERTER OPERATOR HELPER Primary Care Provider [phone] Antoni Ohara DO Primary Care Provider [phone] Encounter Details Date Type Department Care Team (Late st Contact Info) Description 11/08/2019 Lab Requisition [facility] Pathology & Laboratory Medicine - [address] [address] Unknown, Provider, Social History Tobacco Use Types [...] Date/Time Associated Diagnosis Comments HOLD SST Today 11/08/2019 12:40 EST SEX HORMONE BINDING GLOBULIN Today 11/08/2019 12:40 EST DHEA SULFATE Today 11/08/2019 12:40 EST documented in this encounter Results * HOLD SST (11/08/2019 12:40 EST) Hold Hold 11/08/2019 22:01 EST [facility] Blood VENOUS BLOOD / Unknown 11/08/2019 12:40 EST 11/08/2019 20:59 EST Provider Unknown LAB INFO SERVICE AND SUPPORT & PHONE RESULT Performing Organization Address [facility]/ZIP Co de Phone Number [facility] [address] [place] [address] * SEX HORMONE BINDING GLOBULIN (11/08/2019 12:40 EST) Sex Hormone Bnd Glob 8.9 See Note nmol/L 11/09/2019 10:09 EST [facility] Comment: NOTE: ---- Reference Ranges for Females Pre-Menopausal: ?>10.8 nmol/L Post-Menopausal: ?? 23.2 - 159.1 nmol/L Reference ranges for Sex Hormone Binding Globulin in female patients <21 years old have not been established. Blood VENOUS BLOOD / Unknown 11/08/2019 12:40 EST 11/08/2019 20:59 EST Narrative [facility] - 11/09/2019 10:09 EST The results of this assay can be falsely lowered due to the consumption of Biotin. Provider Unknown CHEMISTRY & BLOOD GA S ORDERABLES Performing Organization Address [facility] Co de Phone Number [facility] [address] [place] [address] * DHEA SULFATE (11/08/2019 12:40 EST) DHEA Sulfate 186 75 - 410 ug/dL 11/09/2019 8:46 EST [facility] Blood VENOUS BLOOD / Unknown 11/08/2019 12:40 EST 11/08/2019 20:59 EST Provider Unknown CHEMISTRY & BLOOD GA S ORDERABLES Performing Organization Address [facility] Co de Phone Number [facility] [address] [place] [address] documented in this encounter Visit Diagnoses Not on filedocumented in this encounter Care Teams Bumboater Relationship Specialty Start Date End Date Lidia Benson NP [address] [place] [address] PCP - General 09/27/17 03/29/22 Adelina Baca NP [address] [place] [address] PCP - General Family Medicine - Primary Care 03/30/22 05/08/24 Antoni Ohara DO [address] [place] [address] PCP - General Family Medicine - Primary Care 05/09/24 documented as of this encounter
--- NOTE | 2024-05-22 20:12 | ED.GENADUL_ITS ---
Discharge Plan Disposition Patient Disposition: Home Condition: Stable Discharge Details Clinical Impression: Encounter for test Primary Care Provider: Antoni Ohara ED Provider: Zandra Varghese Home Meds and New Rx's Prescriptions: No Action metoprolol tartrate 50 mg tablet 50 mg PO BID Qty: 30 0RF aripiprazole 10 mg tablet 10 mg PO DAILY levothyroxine 75 mcg tablet See Rx Instructions .ROUTE .COMPLEX Qty: 90 3RF Dose Instruction: TAKE 1 TABLET BY MOUTH DAILY Rx Instructions: TAKE 1 TABLET BY MOUTH DAILY fludrocortisone 0.1 mg tablet 0.2 mg PO DAILY Qty: 90 3RF Rx Instructions: Reported by Terrance [place] 02/23/2024 divalproex 500 mg Tablet,Delayed Release (Dr/Ec) 1,000 mg PO BID topiramate [Topamax] 50 mg tablet 50 mg PO BID Patient Comments: Take 1 tablet by mouth twice a day Aristada 882 mg/3.2 mL suspension,extended rel syring 882 mg IM Q4W Patient Comments: not taking Rx Instructions: every 4 weeks Discharge Instructions Instructions: Tests Additional Instructions: At this time test is negative. Follow up with primary care provider in 3-5 days. Return to ED sooner if any worsening or concerns. Referrals: Antoni Ohara DO [Primary Care Provider] - 5 days Discharge Data Discharge Date/Time-TO BE ENTERED AT DEPARTURE: 05/22/24 20:18 HPI General Mode of arrival: ambulatory . Date/Time Provider Initiated Documentation: 05/22/24 19:36 . Limitations to Documentation: no limitations . Information obtained by: patient, RN notes reviewed and old records reviewed . HPI Narrative: 43-year-old female presents to the ER with chief complaint of vaginal spotting today she is requesting a test she is a couple days late for her normal menstrual period. Denies any other associated symptoms or concerns. Thank Related Data Home Medications ?Medication ?Instructions ?Recorded ?Confirmed aripiprazole lauroxil 882 mg/3.2 882 mg IM Q4W 07/12/21 05/22/24 mL suspension, ext.rel. IM syringe (Aristada) topiramate 50 mg tablet (Topamax) 50 mg PO BID 07/12/21 05/22/24 divalproex 500 mg tablet,delayed 1,000 mg PO BID 09/17/21 05/22/24 release levothyroxine 75 mcg tablet See Rx Instructions .Route 06/28/23 05/22/24 .COMPLEX #90 tabs aripiprazole 10 mg tablet 10 mg PO DAILY 02/22/24 05/22/24 fludrocortisone 0.1 mg tablet 0.2 mg (2 x 0.1 mg) PO DAILY #90 05/10/24 05/22/24 tabs metoprolol tartrate 50 mg tablet 50 mg PO BID #30 tabs 05/10/24 05/22/24 Previous Rx's ?Medication ?Instructions ?Recorded levothyroxine 75 mcg tablet See Rx Instructions .Route 06/28/23 .COMPLEX #90 tabs fludrocortisone 0.1 mg tablet 0.2 mg (2 x 0.1 mg) PO DAILY #90 05/10/24 tabs metoprolol tartrate 50 mg tablet 50 mg PO BID #30 tabs 05/10/24 Allergies Allergy/AdvReac Type Severity Reaction Status Date / Time codeine Allergy Mild unknown Verified 05/22/24 20:02 General Stated Complaint: COMPLAINT SPECIALIST CECILIA: 4 Review of Systems All systems reviewed & are unremarkable except as noted in HPI and below Genitourinary Genitourinary: Reports metrorrhagia Course Vital Signs Vital signs: Vital Signs Temperature 36.7 C 05/22/24 19:28 Pulse 116 H 05/22/24 19:28 Respiratory Rate 18 05/22/24 19:28 Blood Pressure 134/86 05/22/24 19:28 Pulse Oximetry 98 05/22/24 19:28 Temperature 36.7 C 05/22/24 19:28 Temperature Source Oral 05/22/24 19:28 Pulse 116 H 05/22/24 19:28 Respiratory Rate 18 05/22/24 19:28 Respiratory Effort Normal, Non-Labored 05/22/24 20:01 Blood Pressure 134/86 05/22/24 19:28 Blood Pressure Position Sitting 05/22/24 19:28 Pulse Oximetry 98 05/22/24 19:28 Oxygen Delivery Method Room Air 05/22/24 19:28 Oxygen Flow Rate 0 05/22/24 19:28 Pain Level 0 05/22/24 19:28 Lab/Test Results Lab/Test Results: POC- Test(urine) Negative Medical Decision Making Urine negative patient discharged with follow-up care to follow-up with her PCP. This text was generated using [employer] dictation system, please disregard any oddities of phrase or misspellings. 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 Diabetes mellitus type II, controlled (Acute) POTS (postural orthostatic tachycardia syndrome) (Acute) Plantar warts (Acute) Fatigue (Acute) Pelvic pain (Acute) Orthostatic hypotension (Acute) Chronic diarrhea (Acute) Nonalcoholic steatohepatitis (Acute) Hypothyroid (Chronic) Hirsutism (Acute) Dysfunctional uterine bleeding (Acute) Oligomenorrhea (Acute) Schizophrenia (Chronic) Medical History Uterine mass Non compliance w medication regimen Yeast dermatitis RLS (restless legs syndrome) H/O suicide attempt Schizoaffective disorder Deviated nasal septum Trigeminal neuralgia of left side of face (01/03/18) Type 2 diabetes mellitus History of hypothyroidism Drug overdose, intentional Surgical History S/p breast implant removal Sep 2019 S/P breast implant, left H/O pilonidal cyst S/P foot surgery Ligation of fallopian tube Family History Mother Diabetes Father Heart disease Social History (Updated 04/12/24 @ 13:26 by Jasmina Ayala) Smoking/Tobacco Use Status: Current every day Tobacco Type: e-cigarettes Quit status: considering quitting Smoking risk assessment performed?: Yes Alcohol Intake: never Drug use: Current Sobriety Substance use type: does not use Adopted: No Caregiver/Support person: No Foster care: No Household members: none Housing: apartment Number of Children: 2 number of grandchildren: 0 Education Level: college Details: Some classes - no degree Do you need help understanding health information?: Never current occupation: Disabled Pets and animals: No (1) Sexually active: No Do you think of yourself as: straight/heterosexual Current gender identity: female What is your relationship status?: How often do you talk on the phone with friends or family?: once per week How often do you get together with friends or relatives?: never Do you belong to any clubs or organized social groups?: no Panel score (0-1 are the most socially isolated patients): 0 What type of physical activity do you participate in: walking Duration: 15-30 minutes/day Frequency: daily Lauren/Sabianism: Moravian Special lauren needs: No Seatbelt use: always Helmet use: Yes Drive intox or ride w/intox driver license agent: No Do you feel safe at home: Yes Do you feel safe in your relationship?: Yes Female Reproductive History Menstrual Age of Menarche: 16 Duration of menses: other control method: permanent sterilization History History 2 Para 2 Hx # Term Pregnancies Multiple births Hx # Pregnancies Ectopic pregnancies AB induced Hx Number of Living Children AB spontaneous Past Pregnancies Del. Date GA/Weeks # Preg Succ Route Wgt Sex Labor Lgth Anesth esia Location Prov Complic 08/30/01 40 No Yes vaginal Female 03/25/02 40 No Yes vaginal Male Delivery Date: 08/30/01 [facility] Last Updated by: [facility]e [facility]
== END 2024-05-22 20:18 | disposition home or self-care (01) ==
PROVIDERS: Emergency Provider Registered Nurse Emergency; PCP Family Medicine
DX: N92.1 Excessive and frequent menstruation with irregular cycle (principal); E11.9 Type 2 diabetes mellitus without complications; F17.290 Nicotine dependence, other tobacco product, uncomplicated
CPT/HCPCS: 81025; 99283

== ENCOUNTER 2024-06-08 13:40 | Emergency (ER) | payer MEDICAID, SELFPAY ==
--- NOTE | 2024-06-08 13:30 | RT.EKG_ITS ---
APPROVED REPORT Exam: Resting ECG Reason for Exam: syncope Patient Location: E HR:76 bpm ECG Measurements Heart Rate 76 AXIS LA 160 P 51 QRSd 79 QRS 35 QT 405 T 38 QTc 456 Conclusion Sinus rhythm 76 normal axis normal intervals no stemi
[2024-06-08 13:43] VITALS: BP 130/86; PULSE 97; RESP 20; TEMP 36.6; O2SAT 97
--- NOTE | 2024-06-08 14:03 | W.ED.GENAD ---
Discharge Plan Disposition Patient Disposition: Home Condition: Stable Discharge Details Clinical Impression: POTS (postural orthostatic tachycardia syndrome) Primary Care Provider: Antoni Ohraa ED Provider: Ruth Calderon Home Meds and New Rx's Prescriptions: No Action aripiprazole 10 mg tablet 10 mg PO DAILY fludrocortisone 0.1 mg tablet 0.2 mg PO DAILY Qty: 90 3RF Rx Instructions: Reported by Terrance [place] 02/23/2024 metoprolol tartrate 50 mg tablet 50 mg PO BID Qty: 90 3RF levothyroxine 75 mcg tablet See Rx Instructions .ROUTE .COMPLEX Qty: 90 3RF Dose Instruction: TAKE 1 TABLET BY MOUTH DAILY Rx Instructions: TAKE 1 TABLET BY MOUTH DAILY divalproex 500 mg Tablet,Delayed Release (Dr/Ec) 1,000 mg PO BID topiramate [Topamax] 50 mg tablet 50 mg PO BID Patient Comments: Take 1 tablet by mouth twice a day Aristada 882 mg/3.2 mL suspension,extended rel syring 882 mg IM Q4W Patient Comments: not taking Rx Instructions: every 4 weeks Discharge Instructions Additional Instructions: [facility] says that all of your medications are being delivered daily if you feel like there is an error in your medicine, please follow up with you PCP Discharge Data Discharge Date/Time-TO BE ENTERED AT DEPARTURE: 06/08/24 15:28 HPI General Date/Time Provider Initiated Documentation: 06/08/24 13:54. Limitations to Documentation: no limitations. Information obtained by: patient. HPI Narrative: 43-year-old female with past medical history of POTS, diabetes presents for evaluation of fatigue and syncope. She reports that for at least the last 2 days, possibly 3 days, her daily med delivery has not included her fludrocortisone. She states that today she feels very fatigued and weak. She states that she did have an episode where she passed out just prior to arrival. She denies any vomiting. She states that she is eating and drinking well. She states that she has been walking around her house and getting to the bathroom without difficulty. She states that this is the only medication that has not been included in her daily med drop. Related Data Home Medications ?Medication ?Instructions ?Recorded ?Confirmed aripiprazole lauroxil 882 mg/3.2 882 mg IM Q4W 07/12/21 06/08/24 mL suspension, ext.rel. IM syringe (Aristada) topiramate 50 mg tablet (Topamax) 50 mg PO BID 07/12/21 06/08/24 divalproex 500 mg tablet,delayed 1,000 mg PO BID 09/17/21 06/08/24 release aripiprazole 10 mg tablet 10 mg PO DAILY 02/22/24 06/08/24 fludrocortisone 0.1 mg tablet 0.2 mg (2 x 0.1 mg) PO DAILY #90 05/10/24 06/08/24 tabs metoprolol tartrate 50 mg tablet 50 mg PO BID #90 tabs 06/01/24 06/08/24 levothyroxine 75 mcg tablet See Rx Instructions .Route 06/05/24 06/08/24 .COMPLEX #90 tabs Previous Rx's ?Medication ?Instructions ?Recorded fludrocortisone 0.1 mg tablet 0.2 mg (2 x 0.1 mg) PO DAILY #90 05/10/24 tabs metoprolol tartrate 50 mg tablet 50 mg PO BID #90 tabs 06/01/24 levothyroxine 75 mcg tablet See Rx Instructions .Route 06/05/24 .COMPLEX #90 tabs Allergies Allergy/AdvReac Type Severity Reaction Status Date / Time codeine Allergy Mild unknown Verified 06/08/24 15:18 General Stated Complaint: Dizzy/Sync CECILIA: 3 Exam Narrative Exam Narrative: Review of Systems: All systems reviewed & are unremarkable except as noted in HPI and below Well-developed, disheveled, laying flat on her back NCAT PERRL, normal conjunctiva no nystagmus RRR no murmur Unlabored respiratory effort clear bilaterally Nondistended abdomen soft nontender no focal neurologic deficits Course Vital Signs Vital signs: Vital Signs Temperature 36.6 C 06/08/24 13:43 Pulse 97 H 06/08/24 13:43 Respiratory Rate 20 06/08/24 13:43 Blood Pressure 130/86 06/08/24 13:43 Pulse Oximetry 97 06/08/24 13:43 Temperature 36.6 C 06/08/24 13:43 Temperature Source Oral 06/08/24 13:43 Pulse 97 H 06/08/24 13:43 Respiratory Rate 20 06/08/24 13:43 Blood Pressure 130/86 06/08/24 13:43 Blood Pressure Position Sitting 06/08/24 13:43 Pulse Oximetry 97 06/08/24 13:43 Pain Level 0 06/08/24 13:43 Medical Decision Making Emergent evaluation of syncope in the setting of POTS. Patient reports that she has not had her medication for 2 to 3 days. She reports that she did not become symptomatic until today. EKG reviewed and independently interpreted. Sinus rhythm, 76, normal intervals. The patient's vital signs are also normal on arrival. Will give her daily dose today and attempt to investigate why she has not been receiving these doses at home. Will check lab work to evaluate for metabolic derangement, DKA given her diabetes, or abnormality that may be causing the symptoms. I discussed with [facility] and OR RN and they were able to confirm that the patient does get daily medicine drops. She states that she contacted them on Tuesday with concerns that she was not receiving her medication, but the medication was reviewed with the patient and the nurse and seem to be accounted for. So it is unclear why the patient thinks that she may not have been getting her fludrocortisone. Her lab work was reviewed and is unremarkable. No leukocytosis or anemia. No electrolyte derangement. Mild hyperglycemia without any evidence of DKA. Albumin on the low side which is her baseline. The patient maintained normal vital signs throughout her stay in the emergency department, she was observed to independently get out of bed and walk to the bathroom without any difficulty. I do recommend that she resume her medication and that if for some reason she is not receiving her medication appropriately she needs to follow-up immediately with her PCP. She is discharged in good condition. 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 Diabetes mellitus type II, controlled (Acute) POTS (postural orthostatic tachycardia syndrome) (Acute) Plantar warts (Acute) Fatigue (Acute) Pelvic pain (Acute) Orthostatic hypotension (Acute) Chronic diarrhea (Acute) Nonalcoholic steatohepatitis (Acute) Hypothyroid (Chronic) Hirsutism (Acute) Dysfunctional uterine bleeding (Acute) Oligomenorrhea (Acute) Schizophrenia (Chronic) Medical History Uterine mass Non compliance w medication regimen Yeast dermatitis RLS (restless legs syndrome) H/O suicide attempt Schizoaffective disorder Deviated nasal septum Trigeminal neuralgia of left side of face (01/03/18) Type 2 diabetes mellitus History of hypothyroidism Drug overdose, intentional Surgical History S/p breast implant removal Sep 2019 S/P breast implant, left H/O pilonidal cyst S/P foot surgery Ligation of fallopian tube Family History Mother Diabetes Father Heart disease Social History Smoking/Tobacco Use Status: Current every day Tobacco Type: e-cigarettes Quit status: considering quitting Smoking risk assessment performed?: Yes Alcohol Intake: never Drug use: Current Sobriety Substance use type: does not use Adopted: No Caregiver/Support person: No Foster care: No Household members: none Housing: apartment Number of Children: 2 number of grandchildren: 0 Education Level: college Details: Some classes - no degree Do you need help understanding health information?: Never current occupation: Disabled Pets and animals: No (1) Sexually active: No Do you think of yourself as: straight/heterosexual Current gender identity: female What is your relationship status?: How often do you talk on the phone with friends or family?: once per week How often do you get together with friends or relatives?: never Do you belong to any clubs or organized social groups?: no Panel score (0-1 are the most socially isolated patients): 0 What type of physical activity do you participate in: walking Duration: 15-30 minutes/day Frequency: daily Lauren/Gnosticist: Yarsanism Special lauren needs: No Seatbelt use: always Helmet use: Yes Drive intox or ride w/intox local company truck driver: No Do you feel safe at home: Yes Do you feel safe in your relationship?: Yes Female Reproductive History Menstrual Age of Menarche: 16 Duration of menses: other control method: permanent sterilization History History 2 Para 2 Hx # Term Pregnancies Multiple births Hx # Pregnancies Ectopic pregnancies AB induced Hx Number of Living Children AB spontaneous Past Pregnancies Del. Date GA/Weeks # Preg Succ Route Wgt Sex Labor Lgth Anesthesia Location Prov Complic 08/30/01 40 No Yes vaginal Female 03/25/02 40 No Yes vaginal Male Delivery Date: 08/30/01 [facility]: 03/[facility]/02 Last Updated by: [facility]e [facility]
[2024-06-08] MEDS: Fludrocortisone 0.1 MG TAB 0.2 MG PO (14:27)
[2024-06-08 14:31] LABS: Abs Immature Grans 0.09 10^3/uL (0.0-0.06); Absolute Basophil Count 0.04 10^3/uL (0.0-0.2); Absolute Eosinophil Count 0.06 10^3/uL (0.0-0.7); Absolute Lymphocyte Count 2.23 10^3/uL (1.2-3.4); Absolute Monocyte Count 0.51 10^3/uL (0.1-0.8); Absolute Neutrophil Count 3.89 10^3/uL (1.2-6.7); Basophils % 0.6 %; Eosinophils % 0.9 %; HCT 38.9 % (36.0-46.0); HGB 13.6 g/dL (11.2-15.7); Immature Grans % 1.3 %; Lymphocytes % 32.7 %; MCH 33.8 pg (27.0-33.0); MCV 97 fL (80-95); MPV 9.5 fL (8.0-11.0); Monocytes % 7.5 %; Platelet Count 236 10^3/uL (130-400); RBC 4.02 10^6/uL (3.93-5.22); RDW 11.9 % (11.7-14.6); RDW-SD 42.5 fL; WBC 6.82 10^3/uL (4.4-10.8)
[2024-06-08 15:00] LABS: ALT 15 U/L (14-59); AST 11 U/L (15-37); Albumin 3.2 g/dL (3.4-5.0); Alkaline Phosphatase 133 U/L (46-116); Anion Gap 8.3 mmol/L (3-11); BUN 15 mg/dL (7-18); Bilirubin, Total 0.33 mg/dL (0.2-1.0); CO2 27.7 mmol/L (21.0-32.0); CREATININE 0.7 mg/dL (0.55-1.02); Calcium 9.5 mg/dL (8.5-10.1); Chloride 100 mmol/L (98-107); Estimated GFR 109.98 (mL/min/1.73m2); Glucose 272 mg/dL (74-106); Potassium 3.7 mmol/L (3.5-5.1); Sodium 136 mmol/L (136-145); Total Protein 6.9 g/dL (6.4-8.2)
[2024-06-08 15:23] VITALS: BP 139/85; PULSE 75; RESP 18; TEMP 36.8; O2SAT 98
== END 2024-06-08 15:28 | disposition home or self-care (01) ==
PROVIDERS: Emergency Provider Emergency Medicine; PCP Family Medicine
DX: G90.A Postural orthostatic tachycardia syndrome [POTS] (principal)
CPT/HCPCS: 36415; 80053; 93005; 99284; 84443; 85025; 93010

== ENCOUNTER 2024-06-14 16:46 | Emergency (ER) | payer MEDICAID, SELFPAY ==
[2024-06-14] VITALS (16 sets, daily range): BP systolic 115–147; BP diastolic 57–88; PULSE 64–79; RESP 11–20; TEMP 36.9; O2SAT 97–100
--- NOTE | 2024-06-14 16:45 | DI.RAD_ITS ---
Exam(s) XR PORTABLE CHEST AP EXAM: XR PORTABLE CHEST AP CLINICAL HISTORY: chest pain TECHNIQUE: 2D digital imaging was performed. COMPARISON: No exams were available for comparison FINDINGS: LUNGS: Clear. No pleural abnormality seen. HEART: Normal size. AORTA: Normal diameter. BONES: Unremarkable for age. Soft tissues: Unremarkable. IMPRESSION: No acute findings. DATA REPOSITORY: RADIATION DOSE DELIVERED:
--- NOTE | 2024-06-14 16:45 | RT.EKG_ITS ---
APPROVED REPORT Exam: Resting ECG Reason for Exam: Chest Pain Patient Location: E HR:69 bpm ECG Measurements Heart Rate 69 AXIS GA 162 P 36 QRSd 85 QRS 63 QT 411 T 57 QTc 442 Conclusion Sinus rhythm 69 sinus no stemi
--- OUTSIDE RECORDS SUMMARY | 2024-06-14 17:11 | XMS_ITS | Encounter Summary ---
Author Organization [facility] [place] [address] Care Team Providers Care Junior Php Developer Name Role Phone Lidia Benson APRN Primary Care Provider [phone] Encounter Details Date Type Department Care Team (Late st Contact Info) Description 03/06/2019 Ancillary Procedure Radiology Library [facility] [place] [id number] Lidia Benson APRN [address] [place] [address] [place] [address] Social History Tobacco Use Types Packs/Day Years [...] MR Head (03/06/2019 12:00 AM EDT) Narrative [facility] - 12/26/2019 5:08 PM EDT This exam is auto-finalizing. It's purpose is for storage only. Lidia Benson APRN G FILM LIBRARY ORD ERABLES [facility] [place], [place] documented in this encounter Visit Diagnoses Not on filedocumented in this encounter Care Teams Junior Php Developer Relationship Specialty Start Date End Date Lidia Benson, S[address] [facility] [place] [address] PCP - General Family Medicine 02/28/18 08/23/19 documented as of this encounter
--- OUTSIDE RECORDS SUMMARY | 2024-06-14 17:11 | XMS_ITS ---
Author Organization Unknown Address [address] [place] [address] [phone] Phone Care Team Providers Care Patient Transition Specialist Name Role Phone AMARA WARE Registered Nurse UnavailLizeth Gillespie Attending Unavailable JAVON WILLSON Primary Unavailable UNLISTED PROVIDER - REQUESTED Xhandoff Un available Results URINALYSIS WITH REFLEX CULT IF POSITIVE* - Collect Date/Time: 08/04/2022 11:09 [facility] ID: [id number] - [id number] [address] [place], [place], [address] LOINC: 63290-1 Test Value Unit Reference Range Code Code System Flag COLLECTION MODE: CLEAN CATCH 86485-1 LOINC Color YELLOW yellow 5778-6 LOINC Appearance CLEAR clear 5767-9 LOINC Glucose urine >=1000 negative mg/dl 15714-8 LOINC A Bilirubin NEGATIVE negative 5770-3 LOINC Ketones 15 negative mg/dl 2514-8 LOINC A Spec gravity 1.010 1.003 - 1.030 5811-5 LOINC pH urine 6.5 5.0 - 7.0 2756-5 LOINC Protein NEGATIVE negative mg/dl 10265-4 LOINC Urobilinogen 0.2 <or= 1 EU/dl 71636-8 LOINC Nitrite. NEGATIVE negative 5802-4 LOINC Blood NEGATIVE negative 5794-3 LOINC Leukocytes. NEGATIVE negative MICROSCOPIC NOT INDICAT DRUG SCN 13 PANEL (MEDTOX)* - Collect Date/Time: 08/04/2022 11:09 [facility] ID: [id number] - [id number] [address] [place] [address], [id number] LOINC: 36044-7 Test Value Unit Reference Range Code Code System Flag CANNABINOIDS NEGATIVE Cutoff = 50 ng/mL 28074-8 LOINC PHENCYCLIDINE NEGATIVE Cutoff = 25 ng/mL 63139-4 LOINC COCAINE NEGATIVE Cutoff = 150 ng/mL 39735-3 LOINC METHAMPHETAMINES NEGATIVE Cutoff = 50 0 ng/mL 04364-9 LOINC OPIATES NEGATIVE Cutoff = 100 ng/mL 47264-3 LOINC AMPHETAMINES NEGATIVE Cutoff = 500 ng/mL 74167-7 LOINC BENZODIAZEPINES NEGATIVE Cutoff = 150 ng/mL 81730-7 LOINC TRICYCLIC ANTIDEP NEGATIVE Cutoff = 3 00 ng/mL 3533-7 LOINC METHADONE NEGATIVE Cutoff = 200 ng/mL 74827-1 LOINC BARBITURATES NEGATIVE Cutoff = 200 ng/mL 13665-6 LOINC OXYCODONE NEGATIVE Cutoff = 100 ng/mL 00180-9 INC PROPOXYPHENE NEGATIVE Cutoff = 300 ng/mL 39401-8 INC BUPRENORPHINE NEGATIVE Cutoff = 10 mg/mL 3414-0 [facility] GLUCOSE FINGER/HEEL CAPILLAR Y - Collect Date/Time: 08/04/2022 10:44 [facility] ID: [id number] - [id number] [address] [place] [address], [id number] LOINC: 53557-0 Test Value Unit Reference Range Code Code System Flag GLUCOSE CAP 328 mg/dL L=70 H=116 H GLUCOSE FINGER/HEEL CAPILLAR Y - Collect Date/Time: 08/04/2022 10:18 [facility] ID: [id number] [address] [place] [address], [id number] LOINC: 92826-4 Test Value Unit Reference Range Code Code System Flag GLUCOSE CAP 266 mg/dL L=70 H=116 H VALPROIC ACID (DEPAKENE)* - Collect Date/Time: 08/04/2022 09:50 [facility] ID: [id number] - [id number] [address] [place] [address], [address] LOINC: 4086-5 Test Value Unit Reference Range Code Code System Flag VALPROATE 99 ug/mL L=50 H=100 ORDER VENOUS BLOOD GAS* - Co llect Date/Time: 08/04/2022 09:50 [facility] ID: [id number] - [id number] [address] [place], [place], [id number] LOINC: Test Value Unit Reference Range Code [...] ACETAMINOPHEN* - Collect Carlos e/Time: 08/04/2022 09:50 [facility] ID: [id number] - [id number] [address] [place] [address], [address] LOINC: 3298-7 Test Value Unit Reference Range Code Code System Flag ACETAMINOPHEN < 2.0 ug/mL L=10.0 H=20.0 3298-7 LOINC L SALICYLATE SERUM* - Collect Date/Time: 08/04/2022 09:50 [facility] ID: [id number] - [id number] [address] [place] [address], [address] LOINC: 4024-6 Test Value Unit Reference Range Code Code System Flag SALICYLATE 3.5 mg/dL L=15.0 H=30.0 4024-6 LOINC L TROPONIN HIGH SENSITIVITY* - Collect Date/Time: 08/04/2022 09:50 [facility] ID: [id number] - [id number] [address] [place] [address], [address] LOINC: 66859-0 Test Value Unit Reference Range Code Code System Flag TROPONIN HS 5.6 pg/mL L=0.0 H=60.4 Specimen seq. ADM. TEST QUAL (SERUM) - Collect Date/Time: 08/04/2022 09:50 [facility] ID: [id number] - [id number] [address] [place] [address], [address] LOINC: 2118-8 Test Value Unit Reference Range Code Code System Flag TEST NEGATIVE 6-3 LOINC MAGNESIUM SERUM* - Collect D ate/Time: 08/04/2022 09:50 [facility] ID: [id number] - [id number] [address] [place] [address], [address] LOINC: 95701-2 Test Value Unit Reference Range Code Code System Flag MAGNESIUM 1.9 mg/dL L=1.8 H=2.4 84487-7 LOINC CBC W/ DIFFERENTIAL* - Colle ct Date/Time: 08/04/2022 09:50 [facility] ID: [id number] [address] [place] [address], [address] LOINC: 53760-7 Test Value Unit Reference Range Code Code System Flag WBC 6.93 th/cmm L=5.00 H=10.00 6690-2 LOINC NEUT % 31.5 % L=40.0 H=80.0 L LYMPH % 56.4 % L=10.0 H=50.0 H MONO % 9.1 % L=2.0 H=12.0 17013-4 LOINC EOS % 1.9 % L=0.0 H=8.0 BASO % 0.4 % L=0.0 H=3.0 IG % 0.7 % L=0.0 H=1.1 2514-8 LOINC NRBC % 0.0 % L=0.0 H=0.0 00722-0 LOINC NEUT abs count 2.2 th/cmm L=1.6 H=8.4 751-8 LOINC LYMPH abs count 3.9 th/cmm L=1.5 H=4.0 731-0 LOINC MONO abs count 0.6 th/cmm L=0.2 H=1.0 742-7 LOINC EOS abs count 0.1 th/cmm L=0.0 H=0.5 711-2 LOINC BASO abs count 0.0 th/cmm L=0.0 H=0.2 704-7 LOINC IG abs count 0.1 th/cmm L=0.0 H=0.1 88954-9 LOINC NRBC abs count 0.0 mil/cmm L=0.0 H=0.0 96485-6 LOINC RBC 4.46 mil/cmm L=3.90 H=5.40 789-8 [...] L (CMP) - Collect Date/Time: 08/04/2022 09:50 [facility] ID: [id number] - [id number] [address] [place] [address], [address] LOINC: 87954-0 Test Value Unit Reference Range Code Code [...] H=34 2028-9 LOINC ANION GAP 12.6 mmol/L 80719-7 LOINC CALCIUM SERUM 9.3 mg/dL L=8.2 H=10.2 20104-8 LOINC BILIRUBIN TOTAL 0.2 mg/dL L=0.0 H=1.3 1975-2 LOINC ALK. PHOS. 226 U/L L=46 H=116 6768-6 LOINC H SGOT (AST) 27 U/L L=15 H=37 1920-8 LOINC SGPT (ALT) 53 U/L L=12 H=78 1742-6 LOINC TOTAL PROTEIN 7.9 gm/dL L=6.0 H=8.0 2885-2 LOINC ALBUMIN 3.4 gm/dL L=3.4 H=5.0 1751-7 LOINC AGE 41 years eGFR (non-Afr.Amer.) 102 mL/min 25539-9 LOINC eGFR (Afr-Panamanian) > 120 mL/min 96822-3 LOINC ALCOHOL (ETHANOL)* - Collect Date/Time: 08/04/2022 09:50 [facility] ID: [id number] [address] [place] [address], [address] LOINC: 93007-2 Test Value Unit Reference Range Code Code System Flag ALCOHOL (ETHANOL) < 3 mg/dL 06980-[address] HEAD WO CONTRAST - Comple jenna: 08/04/2022 11:24 LOINC: [facility] RADIOLOGY [place], [place] [address] PACS PORCELAIN ENAMEL SPRAYER REPORT Patient Name: BISMARK LANDON MRN: Sex: : Age: [id number] F 1980 41 Account: Accession: Admit: StayType: [id number] 08/04/2022 E/R Ordered: Order ID: Submitted: Ordering Provider: 08/04/2022 10:25 [id number] JENNY RUBIO Completed: Technologist: Resulted: 08/04/2022 11:24 [...] Female Vital Signs Vital Sign Value Unit Belmar Value Belmar Unit Date/Time Recent/Initial? Code Code System Body Mass Index 30.65 kg/m2 08/04/2022 11:32 Initial 91787 -5 LOINC Systolic Blood Pressure 122 mm[Hg] [...] Saturation 99 % 2021 16:03 Most Recent 28744 -5 LOINC O2 Saturation 100 % 2021 11:32 Initial 42166 -5 LOINC Inhaled Oxygen Flow Rate 6.00 [...] 78.47 kg 173.00 lbs 08/04/2022 11:32 Initial 12028 -7 LOINC Hospital Discharge Instructions Should you [...]
--- OUTSIDE RECORDS SUMMARY | 2024-06-14 17:11 | XMS_ITS | Encounter Summary ---
Author Organization [facility] [place] [address] Care Team Providers Care Transit Police Officer Name Role Phone Lidia Benson APRN Primary Care Provider + [phone] Reason for Visit * Reason Comments Follow Up Surgery s/p left breast impl ant removal with capsulectomy Encounter Details Date Type Department Care Team (Latest Contact Info) Description 09/27/2019 2:00 PM EST Clinical Support [place] [address] Surgery follow-up Social History Tobacco Use Types [...] symptoms please call our nurse's line at [phone] M - F 8 - 5 For after hours, and on weekends; Call [phone] and ask for our plastic surgeon demonstrator sewing techniques documented in this encounter Progress Notes * [...] surgery documented in this encounter Care Teams Transit Police Officer Relationship Specialty Start Date End Date Lidia Benson APRN [address] [place] [address] PCP - General Family Medicine 09/14/19 documented as of this encounter
--- OUTSIDE RECORDS SUMMARY | 2024-06-14 17:11 | XMS_ITS | Encounter Summary ---
Author Organization [facility] [place] [address] Care Team Providers Care A Operator Name Role Phone Lidia Benson APRN Primary Care Provider + [phone] Reason for Visit * Reason Comments Advice Only breast implant compl ications left breast Encounter Details Date Type Department Care Team (Late st Contact Info) Description 07/13/2019 10:30 AM EST Office [place] [address] Corby Curry MD [facility] [place] [address] Complication of breast implant, initial encounter Social [...] supplements, Ginseng, Fish oil tablets, Ginkgo and Porum's Wort. May resume 48 hours after surgery [...] appointment. Feel free to call our office [phone] if you have any nursingquestions or concerns. We monitor the phones from 8-5 Tuesday through Tuesday. Expect a call from the Same Day Dept the business day before surgery to go over your list of medications and instruct you on arrival time, and when to stop eating and drinking. For questions pertaining to your surgery date or time please call Alannah at [phone]. documented in this encounter Progress Notes * [...] file Gets together: Not on file Attends confucianist service: Not on file Active member of [...] Left Breast Implant Removal with Caspulectomy CPT: 19977, [address] Surgical site: Breast Side: Left Anesthesia: General [...] encounter documented in this encounter Care Teams A Operator Relationship Specialty Start Date End Date Lidia Benson, DOCK MANAGER [address] [place] [address] PCP - General Family Medicine 02/28/18 08/23/19 documented as of this encounter
--- OUTSIDE RECORDS SUMMARY | 2024-06-14 17:11 | XMS_ITS | Encounter Summary ---
Author Organization [facility] [place] [address] Care Team Providers Care Sap Treasury Consultant Name Role Phone Lidia Benson APRN Primary Care Provider + [phone] Encounter Details Date Type Department Care Team (Late st Contact Info) Description 02/23/2019 Telephone Gastroenterology [place] [address] Filomena Leyva Social History Tobacco Use Types [...] - 02/23/2019 11:53 AM EDT Shaneka Samano [id number] Diagnosis: EGD/ COLO 1. Have you ever had a EGD/colonoscopy before? [] YES [x] NO If Yes, Date of Last EGD/[place]: If yes, did you have any problems with the procedure? [] YES [x] NO Explain: What type of sedation was used: 2. Do you take any Blood Thinners? [] YES [x] NO If Yes, type: 3. Do you have a Pacemaker or Defibrillator device? [] YES [x] NO If Yes send inArtspace message to [facility] END[facility] DEVICE CHECK 4. [...] on filedocumented in this encounter Care Teams Sap Treasury Consultant Relationship Specialty Start Date End Date Lidia Benson APRN [address] [place] [address] PCP - General Family Medicine 02/28/18 08/23/19 documented as of this encounter
--- OUTSIDE RECORDS SUMMARY | 2024-06-14 17:11 | XMS_ITS | Encounter Summary ---
Author Organization [facility] [place] [address] Care Team Providers Care Professor Of Early Childhood Education Name Role Phone Lidia Benson APRN Primary Care Provider + [phone] Encounter Details Date Type Department Care Team (Late st Contact Info) Description 12/08/2018 2:15 PM EDT Ancillary Procedure Radiology Library at [facility] [place] [address] Alan Longo III, MD [facility] [place] [address] Social History Tobacco Use Types Packs/Day Years [...] Spine (12/08/2018 2:11 PM EDT) Narrative [facility] - 12/08/2018 2:11 PM EDT This exam is auto-finalizing. It's purpose is for storage only. Alan Longo III, MD IM FILM LIBRARY ORDERABLES DH RAD [place], [place] documented in this encounter Visit Diagnoses Not on filedocumented in this encounter Care Teams Professor Of Early Childhood Education Relationship Specialty Start Date End Date Lidia Benson, SONG [address] [place] [place] [address] PCP - General Family Medicine 02/28/18 08/23/19 documented as of this encounter
--- OUTSIDE RECORDS SUMMARY | 2024-06-14 17:11 | XMS_ITS | Encounter Summary ---
Author Organization [facility] [place] [address] Care Team Providers Care Canal Tender Name Role Phone Lidia Benson APRN Primary Care Provider + [phone] Reason for Referral * Consultation (Routine) - Closed Specialty Diagnoses / Procedures Referred By Contac t Referred To Contact Radiation Oncology Diagnoses Trigeminal neuralgia of left side of face Ankur Galindo MD [facility] [place] [address] Nick Hewitt MD [facility] [place] [address] Referral ID Status Reason Start Date Expiration Date V isits Requested Visits Authorized [id number] Closed Consult, Test & Treat 12/06/2019 12/05/2020 1 1 Reason for Visit * Consultation (Routine) - Specialty Diagnoses / Procedures Referred By Contac t Referred To Contact Neurosurgery Diagnoses Trigeminal neuralgia Jannette Salter MD [facility] [address] [place] [address] [facility] Neurosurgery [address] [place] [phone] Referral ID Status Reason Start Date Expiration Date V isits Requested Visits Authorized [id number] Consult, Test & Treat [facility] PCP Updated and/or Approved 11/26/2019 11/25/2020 1 1 Encounter Details Date Type Department Care Team (Latest Contact Info) Description 12/06/2019 10:40 AM EDT TH Visit (TeleHealth) Neurosurgery at [facility] [place] [address] Ankur Galindo MD [facility] [address] [address] Trigeminal neuralgia of left side of face [...] Galindo MD - 12/06/2019 10:40 AM EDT [facility] Stereotactic and Functional Neurosurgery Patient Name: Shaneka Samano : 1980 REF: Jannette Salter Date of Service: 12/06/[address] Jannette Salter: I had the pleasure of speaking with Shaneka Samano in a neurosurgery telephone visit today. As you know, she is a 39 y.o. woman with left V2 trigeminal neuralgia referred for possible surgical intervention. Due to the [facility] public health emergency and in person [...] shehad an MRI of her brain at [facility] [place] about a year ago but we do [...] Amenorrhea N91.2 ??? Urinary frequency R35.0 ??? 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 Complication of breast implant, initial encounter T85.49XA Past Medical History: Diagnosis Date ??? Diabetes mellitus ??? Hypothyroidism ??? Schizophrenia Past Surgical History: Procedure Laterality Date ??? PRO REMOVAL OF IMPLANT MATERIAL Bilateral 09/17/2019 REMOVAL OF MAMMARY IMPLANT MATERIAL (WRVU 8.54) performed by Corby Curry MD at [facility] OSC ALLERGIES Allergies Allergen Reactions ??? Codeine [...] MD Division of Neurosurgery, [place] [address] Attestation: Patient verbally consents to this telephone [...] face documented in this encounter Care Teams Canal Tender Relationship Specialty Start Date End Date Lidia Benson, SONG [address] [place] [address] PCP - General Family Medicine 09/14/19 documented as of this encounter
--- OUTSIDE RECORDS SUMMARY | 2024-06-14 17:11 | XMS_ITS | Encounter Summary ---
Author Organization [facility] [place] [address] Care Team Providers Care Shingle Grader Name Role Phone Lidia Benson APRN Primary Care Provider + [phone] Encounter Details Date Type Department Care Team (Late st Contact Info) Description 01/29/2022 Ancillary Procedure Radiology Library at [facility] [place] [address] Lidia Benson APRN [address] [place] [address] [place] [address] Social History Tobacco Use Types Packs/Day Years [...] MARMOLEJOG FILM LIBRARY ORD ERABLES DH RAD [place], [place] documented in this encounter Visit Diagnoses Not on filedocumented in this encounter Care Teams Shingle Grader Relationship Specialty Start Date End Date Lidia Benson APRN [address] [place] [address] PCP - General Family Medicine 09/14/19 documented as of this encounter
--- OUTSIDE RECORDS SUMMARY | 2024-06-14 17:11 | XMS_ITS | Encounter Summary ---
Author Organization [facility] [place] [address] Care Team Providers Care Center Rep Name Role Phone Ritalulú Lidia SONG Primary Care Provider + [phone] Reason for Visit * Reason Comments Follow Up Surgery s/p left breast impl ant removal Encounter Details Date Type Department Care Team (Late st Contact Info) Description 02/19/2020 11:15 AM EDT Office [place] [address] Corby Curry MD [facility] [place] [address] Surgery follow-up; Complication of breast implant, initial [...] encounter documented in this encounter Care Teams Center Rep Relationship Specialty Start Date End Date Lidia Benson APRN [address] [place] [address] PCP - General Family Medicine 09/14/19 documented as of this encounter
--- OUTSIDE RECORDS SUMMARY | 2024-06-14 17:11 | XMS_ITS | Encounter Summary ---
Author Organization [place] [address] Care Team Providers Care Dispensing Audiologist Name Role Phone Kelley Lidia ZULETA Primary Care Provider + [phone] Reason for Visit * Auth/Cert Specialty Diagnoses / Procedures Referred By Mateusz ibarra Referred To Contact Diagnoses implant deflation left breast Procedures PRO REMOVAL OF BREAST IMPLANT PRO REMOVAL OF BREAST CAPSULE REMOVAL OF INTACT MAMMARY IMPLANT (WRVU 6.48) BREAST, PERIPROSTHETIC CAPSULECTOMY (WRVU 10.62) Referral ID Status Reason Start Date Expiration Date Visits Re quested Visits Authorized [id number] 1 1 Encounter Details Date Type Department Care Team (Late st Contact Info) Description 09/17/2019 8:55 AM EST Anesthesia Event [place] [address] Houston Kuhn MD [facility] [place] [address] Tayla Hernández CRNA [facility] [place] [address] Anesthesia Record Procedure Summary Procedure Name Responsible [...] 0750; metacarpal vein (top of hand), right; teux-etf-zvjfjl catheter system; 22 gauge, 3/4 in length; [...] Procedure Summary Date: 09/17/19 Room / Location: [address] Anesthesia Start: 854 Anesthesia Stop: 954 Procedure: REMOVAL OF MAMMARY IMPLANT MATERIAL (WRVU 8.54) (Bilateral Breast) Diagnosis: (implant deflation left breast) Surgeon: Corby Cui MD Responsible Provider: Houston Kuhn MD Anesthesia Type: general ASA Status: 2 All Anesthesia Providers: Anesthesiologist: Houston Kuhn MD EXPLOSIVES OPERATOR: Tayla Hernández CRNA Vitals Value Taken Time BP 110/52 09/17/2019 10:00 AM Temp 35.9 ??C (96.6 ??F) 09/17/2019 9:49 AM Pulse 91 09/17/2019 10:07 AM Resp 16 09/17/2019 10:00 AM SpO2 97 % 09/17/2019 10:07 AM Pain Level Vitals shown include unvalidated device data. Patient Location: PACU/[facility] Level of Consciousness: Awake and Alert Pain [...] Hypothyroidism ??? Amenorrhea ??? Urinary frequency ??? Fvwih-7-eonzgxgzkch deficiency carrier ??? Schizoaffective disorder ??? Fall [...] risks discussed with patient. Plan discussed with EXPLOSIVES OPERATOR and attending. PAT Clinic Note documented in [...] mL/hr documented in this encounter Care Teams Dispensing Audiologist Relationship Specialty Start Date End Date Lidia Benson, WIRER HELPER [address] [place] [address] PCP - General Family Medicine 09/14/19 documented as of this encounter
--- OUTSIDE RECORDS SUMMARY | 2024-06-14 17:11 | XMS_ITS | Encounter Summary ---
[place] [address] Care Team Providers Care Claim Administrator Name Role Phone Lidia Benson APRN Primary Care Provider + [phone] Reason for Referral * Consultation (Routine) - Specialty Diagnoses / Procedures Referred By Mateusz ibarra Referred To Contact Gastroenterology Diagnoses Nonalcoholic steatohepatitis METZGER Marcio Lovelace MD [address] [place] [address] [place] [address] [facility] [place] [address] Referral ID Status Reason Start Date Expiration Date V isits Requested Visits Authorized [id number] Consult, Test & Treat PCP Updated and/or Approved 03/11/2022 03/11/2023 6 6 Encounter Details Date Type Department Care Team (Latest Contact Info) Description 03/11/2022 Transcribe Orders eDH Incoming Referrals [phone] Marcio Lovelace MD [address] [place] [address] [place] [phone] Nonalcoholic steatohepatitis Social History Tobacco Use Types [...] disease documented in this encounter Care Teams Claim Administrator Relationship Specialty Start Date End Date Lidia Benson, SONG [address] [place] [address] PCP - General Family Medicine 09/14/19 documented as of this encounter
--- OUTSIDE RECORDS SUMMARY | 2024-06-14 17:11 | XMS_ITS | Encounter Summary ---
[place] [address] Care Team Providers Care Mgmt Specialist Name Role Phone Lidia Benson APRN Primary Care Provider + [phone] Encounter Details Date Type Department Care Team (Late st Contact Info) Description 10/24/2018 Tele[place] [address] Hien Rwoan Social History Tobacco Use Types Packs/Day Years [...] on filedocumented in this encounter Care Teams Mgmt Specialist Relationship Specialty Start Date End Date Lidia Benson APRN [address] [place] [place], [place] [id number] PCP - General Family Medicine 02/28/18 08/23/19 documented as of this encounter
--- OUTSIDE RECORDS SUMMARY | 2024-06-14 17:11 | XMS_ITS | Encounter Summary ---
Author Organization [facility] [place] [address] Care Team Providers Care Special Police Officer Name Role Phone Kelley Lidia SONG Primary Care Provider + [phone] Encounter Details Date Type Department Care Team (Late st Contact Info) Description 12/27/2019 Tele[place] [address] Ankur Galindo MD [facility] [address] [place] [address] Social History Tobacco Use Types Packs/Day Years [...] face documented in this encounter Care Teams Special Police Officer Relationship Specialty Start Date End Date Lidia Benson, SONG [address] [place] [address] PCP - General Family Medicine 09/14/19 documented as of this encounter
--- OUTSIDE RECORDS SUMMARY | 2024-06-14 17:11 | XMS_ITS | Encounter Summary ---
Author Organization [facility] [place] [address] Care Team Providers Care Window Tinter Name Role Phone Lidia Benson APRN Primary Care Provider + [phone] Encounter Details Date Type Department Care Team (Late st Contact Info) Description 12/25/2019 Telephone Radiation Oncology at [address] [address] Cezar Longo Social History Tobacco [...] filedocumented in this encounter Care Teams Window Tinter Relationship Specialty Start Date End Date Lidia Benson APRN [address] [place], [place] [id number] PCP - General Family Medicine 09/14/19 documented as of this encounter
--- OUTSIDE RECORDS SUMMARY | 2024-06-14 17:11 | XMS_ITS | Encounter Summary ---
Author Organization [facility] [place] [address] Care Team Providers Care Customer Service Driver Name Role Phone Lidia Benson APRN Primary Care Provider + [phone] Reason for Visit * Auth/Cert Specialty Diagnoses / Procedures Referred By Mateusz ibarra Referred To Contact Diagnoses implant deflation left breast Procedures PRO REMOVAL OF BREAST IMPLANT PRO REMOVAL OF BREAST CAPSULE REMOVAL OF INTACT MAMMARY IMPLANT (WRVU 6.48) BREAST, PERIPROSTHETIC CAPSULECTOMY (WRVU 10.62) Referral ID Status Reason Start Date Expiration Date Visits Re quested Visits Authorized [id number] 1 1 Encounter Details Date Type Department Care Team (Latest Contact Info) Description 09/17/2019 7:02 AM EST - 09/17/2019 11:32 AM EST Hospital Encounter Outpatient [place] [address] Corby Curry MD [facility] [place] [address] Discharge Disposition: Home Social History Tobacco Use [...] closest emergency room or call the hospital necktie operator pockets and pieces at [phone] and ask for physician ski production supervisor covering for your physician. Questions or problems after 5pm or on a weekend: Call the [facility] necktie operator pockets and pieces at and ask for the physician ski production supervisor covering for your doctor. * Patient Instructions* Cheri Braxton, AIRCRAFT DE ICER INSTALLER - 09/17/2019 10:37 AM EST Images from the original note were not included. Discharge instructions: ?? The healing process after breast reduction surgery varies with each person. You should expect tofeel tired for the first 2 - 3 weeks due to anesthesia and the healing process. Rest often during the day and get a good night sleep. Pain (short term and skilled nursing) ?? With any surgery there is some [...] scheduling, please contact our administrative offices at [phone] ?? For clinical questions, please call our nurses at [phone] ?? Both offices are open Tuesday thru Tuesday 8a - 5p. With emergencies after hours, call the hospital necktie operator pockets and pieces at [phone] and ask for the Plastic Surgery Resident ski production supervisor. [facility] DRAIN CARE INSTRUCTIONS General Information: Drains [...] Center 09/25/2019 11:00 AM NURSE, PLASTIC SURGERY [facility] PL[facility] [address] [place] [address] documented in this encounter Medications at Time [...] by mouth daily. 06/01/2018 lancets Misc by [facility].(Non-Drug; Combo Route) route. Blood-Glucose Meter Misc by [facility].(Non-Drug; Combo Route) route. 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 Future Appointments Date Time Provider Department Center 09/25/2019 11:00 AM NURSE, PLASTIC SURGERY [facility] * Op Note - Corby Curry MD - 09/17/2019 10:12 AM EST [facility] Operative Note Patient Name: Shaneka Samano : [id number] MR#: [id number] Case Date: 09/17/2019 Surgeon: Surgeon(s) and Role: * Corby Curry MD - Primary * Mac oLrenzo MD - Resident Preoperative diagnosis: implant deflation [...] implant rather than going through the area [place] scar which she had had previously with [...] 11:03 AM EST Removal Of Implant Material ([id number]) 09/17/2019 8:58 AM EST implant deflation left [...] MD) documented in this encounter Care Teams Customer Service Driver Relationship Specialty Start Date End Date Lidia Benson, AIRCRAFT DE ICER INSTALLER [address] [place] [address] PCP - General Family Medicine 09/14/19 documented as of this encounter
--- OUTSIDE RECORDS SUMMARY | 2024-06-14 17:11 | XMS_ITS | Encounter Summary ---
Author Organization [facility] [place] [address] Care Team Providers Care Landscape Architecture Professor Name Role Phone KelleyLidia SONG Primary Care Provider + [phone] Encounter Details Date Type Department Care Team (Late st Contact Info) Description 12/08/2018 Notes [place] [phone] Cher Osman MD [facility] [place] [address] Social History Tobacco Use Types Packs/Day Years [...] on filedocumented in this encounter Care Teams Landscape Architecture Professor Relationship Specialty Start Date End Date Lidia Benson, SONG [address] [place] [address] PCP - General Family Medicine 02/28/18 08/23/19 documented as of this encounter
--- OUTSIDE RECORDS SUMMARY | 2024-06-14 17:11 | XMS_ITS | Encounter Summary ---
Author Organization [facility] [place] [address] Care Team Providers Care Conciliator Name Role Phone Lidia Benson APRN Primary Care Provider + [phone] Encounter Details Date Type Department Care Team (Late st Contact Info) Description 10/25/2018 External Results Gastroenterology at [facility] [place] [address] Jimmy Calvillo PA [address] [place] [address] [place] [address] Social History Tobacco Use Types Packs/Day Years [...] on filedocumented in this encounter Care Teams Conciliator Relationship Specialty Start Date End Date Lidia Benson APRN [address] [place] [address] PCP - General Family Medicine 02/28/18 08/23/19 documented as of this encounter
--- OUTSIDE RECORDS SUMMARY | 2024-06-14 17:11 | XMS_ITS | Encounter Summary ---
Author Organization [facility] [place] [address] Care Team Providers Care Feed Blender Name Role Phone Lidia Benson SONG Primary Care Provider + [phone] Encounter Details Date Type Department Care Team (Late st Contact Info) Description 10/20/2018 External Results Gastroenterology at [facility] [place] [phone] Jimmy Calvillo PA [address] [place] [address] [place] [address] Social History Tobacco Use Types Packs/Day Years [...] on filedocumented in this encounter Care Teams Feed Blender Relationship Specialty Start Date End Date Lidia Benson, PHOTOENGRAVING RETOUCHER [address] [facility] [place] [address] PCP - General Family Medicine 02/28/18 08/23/19 documented as of this encounter
--- OUTSIDE RECORDS SUMMARY | 2024-06-14 17:11 | XMS_ITS | Encounter Summary ---
Author Organization [facility] [place] [address] Care Team Providers Care Extruder Name Role Phone Kelley Lidia ZULETA Primary Care Provider + [phone] Encounter Details Date Type Department Care Team (Late st Contact Info) Description 12/06/2019 Telephone Neurosurgery at [facility] [place] [address] Savana White Social History Tobacco Use Types [...] MRI Head completed 03/06/19 at [facility] is in eDH for your review. Pt was scheduled w Dr. Hewitt for a 5/5 appt but has since declined appt. Thank you. Jade * Telephone Encounter - Savana White - 12/26/2019 3:59 PM EDT Faxed 2nd request for MRI Brain to [facility] [[phone]] * Telephone Encounter - Yokasta Hollingsworth - 12/26/2019 10:32 AM EDT Imaging not received, need to refax request. * Telephone Encounter - Yokasta Hollingsworth - 12/19/2019 1:29 PM EDT Faxed image request to [facility] ([phone]). Postponing to allow time for processing. * Telephone Encounter - Savana White - 12/06/2019 3:17 PM EDT ----- Message from Ankur Galindo MD sent at 12/06/2019 12:03 PM EDT ----- Need to obtain MRI images from [facility] (MRI brain), and then has been referred to rad onc. documented in this encounter Plan of Treatment Not on file documented as of this encounter Visit Diagnoses Not on filedocumented in this encounter Care Teams Extruder Relationship Specialty Start Date End Date Lidia Benson, TYPE MAPPER [address] [place] [address] PCP - General Family Medicine 09/14/19 documented as of this encounter
--- OUTSIDE RECORDS SUMMARY | 2024-06-14 17:11 | XMS_ITS | Clinical Summary ---
Author Organization [facility] Address [facility] [place] [address] Care Team Providers Care Bulk Materials Handling Plant Operator Name Role Phone Kelley Lidia ZULETA Primary Care Provider + [phone] Allergies Active Allergy Reactions Criticality Noted Date [...] 1 each 03/03/2017 Active lancets Misc by [facility]Non-Drug; Combo Route) route. Active Blood-Glucose Meter Misc by [facility].(Non-Drug; Combo Route) route. Active LYRICA 50 mg [...] Hypothyroidism 06/28/2018 Amenorrhea 06/28/2018 Urinary frequency 06/28/2018 Otsup-5-ysyvdwhinbw deficiency carrier 8 Schizoaffective disorder 02/21/2017 Fall [...] Urine Microalbumin yearly 1990 Lipid Screening 1998 Tetanus/Diphtheria/Pertussis Vaccines (1 - Tdap) 1999 HPV test 2010 PAP Smear 2010 [...] PANEL Routine 08/31/2018 HIV SCREEN, 4TH GENERATION ([facility]/APD/[facility]) Routine 06/13/2018 3:46 PM EDT Upper abdominal [...] PM EDT) Hepatitis C Antibody Negative Negative [facility] Blood specimen (specimen) 06/13/2018 3:46 PM EDT 06/13/2018 3:50 PM EDT Narrative Resulting Agency Comment Spec In Lab Angela Pizarro TAX REVENUE OFFICER CHEMISTRY ORDERA BLES Performing Organization Address [facility] Co de Phone Number [facility] [place] [address] * HIV Screen, 4th Generation (06/13/2018 3:46 PM EDT) Pathologist [facility] HIV Ab/Ag Screen Negative Negative [facility] Comment: This 4th Generation [...] Agency Comment Spec In Lab Angela Pizarro TAX REVENUE OFFICER CHEMISTRY ORDERA BLES Performing Organization Address [facility] Co de Phone Number [facility] [place] [address] * (ABNORMAL) Hemoglobin A1c (02/28/2017 9:23 PM EDT) [facility] Hemoglobin A1c 5.8(H) 4.3 - 5.6 % [facility] Comment: Reference Range: 4.3 [...] 1, S67-74 Estimated Average Glucose 120 mg/dL [facility] Comment: eAG equivalents for [...] into estimated average glucose values. ??Diabetes Care 2008:31(8):0294-4591. Blood specimen (specimen) 02/28/2017 9:23 PM EDT 02/28/2017 9:32 PM EDT Narrative Resulting Agency Comment Spec In Lab Deshaun Noble MD CHEMISTRY ORDERABLE S [facility] [place] [address] from Last 3 Months or Most Recently [...] capacity to make decision: Yes Care Teams Bulk Materials Handling Plant Operator Relationship Specialty Start Date End Date Lidia Benson APRN [address] [place] [address] PCP - General Family Medicine 09/14/19
--- OUTSIDE RECORDS SUMMARY | 2024-06-14 17:11 | XMS_ITS | Encounter Summary ---
Author Organization [facility] [place] [address] Care Team Providers Care Lay Out Technician Name Role Phone Lidia Benson APRN Primary Care Provider + [phone] Reason for Visit * Auth/Cert Specialty Diagnoses / Procedures Referred By Mateusz ibarra Referred To Contact Diagnoses implant deflation left breast Procedures PRO REMOVAL OF BREAST IMPLANT PRO REMOVAL OF BREAST CAPSULE REMOVAL OF INTACT MAMMARY IMPLANT (WRVU 6.48) BREAST, PERIPROSTHETIC CAPSULECTOMY (WRVU 10.62) Referral ID Status Reason Start Date Expiration Date Visits Re quested Visits Authorized [id number] 1 1 Encounter Details Date Type Department Care Team (Late st Contact Info) Description 09/17/2019 8:15 AM EST - 09/17/2019 10:00 AM EST Surgery [place] [address] Corby Curry MD [facility] [place] [address] REMOVAL OF MAMMARY IMPLANT MATERIAL (WRVU 9) [...] closest emergency room or call the hospital electrical prospecting operator at [phone] and ask for physician steam plant control room operator covering for your physician. Questions or problems after 5pm or on a weekend: Call the [facility] electrical prospecting operator at and ask for the physician steam plant control room operator covering for your doctor. * Patient Instructions* Braxton, Cheri M, COMPUTER DRAFTER - 09/17/2019 10:37 AM EST Images from the original note were not included. Discharge instructions: ?? The healing process after breast reduction surgery varies with each person. You should expect tofeel tired for the first 2 - 3 weeks due to anesthesia and the healing process. Rest often during the day and get a good night sleep. Pain (short term and prison) ?? With any surgery there is some [...] scheduling, please contact our administrative offices at [phone] ?? For clinical questions, please call our nurses at [phone] ?? Both offices are open Tuesday thru Tuesday 8a - 5p. With emergencies after hours, call the hospital electrical prospecting operator at [phone] and ask for the Plastic Surgery Resident steam plant control room operator. [facility] DRAIN CARE INSTRUCTIONS General Information: [...] Center 09/25/2019 11:00 AM NURSE, PLASTIC SURGERY [address] documented in this encounter Medications at [...] by mouth daily. 06/01/2018 lancets Misc by [facility].(Non-Drug; Combo Route) route. Blood-Glucose Meter Misc by [facility].(Non-Drug; Combo Route) route. 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 Future Appointments Date Time Provider Department Center 09/25/2019 11:00 AM NURSE, PLASTIC SURGERY [facility] 4M [facility] * Op Note - Corby Curry MD - 09/17/2019 10:12 AM EST [facility] Operative Note Patient Name: Shaneka Samano : [id number] MR#: [id number] Case Date: 09/17/2019 Surgeon: Surgeon(s) and Role: [...] 11:03 AM EST Removal Of Implant Material ([id number]) 09/17/2019 8:58 AM EST implant deflation left [...] Day of Surgery (Day of Procedure) 0751 ([facility] ider: Delia Gutierrez RN) PRN Medication Order [...] MD) documented in this encounter Care Teams Lay Out Technician Relationship Specialty Start Date End Date Lidia Benson, COMPUTER DRAFTER [address] [place] [address] PCP - General Family Medicine 09/14/19 documented as of this encounter
--- OUTSIDE RECORDS SUMMARY | 2024-06-14 17:11 | XMS_ITS | Encounter Summary ---
Author Organization [facility] [place] [address] Care Team Providers Care Bookmobile Driver Name Role Phone Lidia Benson APRN Primary Care Provider + [phone] Encounter Details Date Type Department Care Team (Late st Contact Info) Description 10/23/2018 Orders Only Gastroenterology at [facility] [place] [address] Jimmy Calvillo PA [address] [place] [address] [place] [address] Abnormal LFTs (liver function tests) Social History [...] chemistry documented in this encounter Care Teams Bookmobile Driver Relationship Specialty Start Date End Date Lidia Benson APRN [address] [place], [place] [address] PCP - General Family Medicine 02/28/18 08/23/19 documented as of this encounter
--- OUTSIDE RECORDS SUMMARY | 2024-06-14 17:11 | XMS_ITS | Encounter Summary ---
Author Organization [facility] [place] [address] Care Team Providers Care Tonsorial Artist Name Role Phone Lidia Benson APRN Primary Care Provider + [phone] Encounter Details Date Type Department Care Team (Late st Contact Info) Description 10/05/2019 Telephone [facility]ology at [facility] [place] [address] Alannah Bowles Social History Tobacco Use Types [...] on filedocumented in this encounter Care Teams Tonsorial Artist Relationship Specialty Start Date End Date Lidia Benson APRN [address] [place], [place] [address] PCP - General Family Medicine 09/14/19 documented as of this encounter
--- OUTSIDE RECORDS SUMMARY | 2024-06-14 17:11 | XMS_ITS | Encounter Summary ---
Author Organization [facility] [place] [address] Care Team Providers Care Correction Officer Name Role Phone Lidia Benson APRN Primary Care Provider + [phone] Encounter Details Date Type Department Care Team (Late st Contact Info) Description 01/15/2019 Telephone Gastroenterology at [facility] [place] [address] Eunice Joyner Social History Tobacco Use Types [...] - 01/15/2019 10:05 AM EDT Shaneka Samano [id number] Diagnosis: hematochezia, abdominal pain 1. Have you ever had an egd/ colonoscopy before? [] YES [x] NO If Yes, Date of Last [place]: If yes, did you have any problems with the procedure? [] YES [] NO Explain: What type of sedation was used: 2. Do you take any Blood Thinners? [] YES [x] NO If Yes, type: 3. Do you have a Pacemaker or Defibrillator device? [] YES [x] NO If Yes send inLumiant message to [employer] ENDO DEVICE CHECK 4. Are you a [...] on filedocumented in this encounter Care Teams Correction Officer Relationship Specialty Start Date End Date Lidia Benson APRN [address] [place] [address] PCP - General Family Medicine 02/28/18 08/23/19 documented as of this encounter
--- OUTSIDE RECORDS SUMMARY | 2024-06-14 17:12 | XMS_ITS | Encounter Summary ---
Author Organization [facility] [place] [address] Care Team Providers Care Wealth Management Director Name Role Phone RitaLidia chino SONG Primary Care Provider + [phone] Encounter Details Date Type Department Care Team (Latest Contact Info) Description 06/13/2018 3:00 PM EDT Procedure visit [place] [phone] Jimmy Calvillo PA [address] [place] [address] [place] [address] Fatty liver; Abnormal liver enzymes; Elevated LFTs; [...] pain; Irritable bowel syndrome with diarrhea; Hematochezia [facility] Liver Fibrosis Assessment Report Indication: Fatty liver, abnormal LFTs Performed by: CECI Mijares Procedure: Vibration Controlled Transient Elastography (VCTE) or Fibroscan [place] Protocol: Patient's identity, procedure and site were [...] Procedure Name Priority Date/Time Associated Diagnosis Comments [id number] Routine 06/13/2018 3:36 PM EDT Elevated LFTs Upper abdominal pain Irritable bowel syndrome with diarrhea Hematochezia documented in this encounter Results * [id number] (06/13/2018 3:36 PM EDT) Narrative Jimmy Calvillo PA - 06/13/2018 3:36 PM EDT Jimmy Calvillo PA ? 06/13/2018 ??3:36 PM [facility] Liver Fibrosis Assessment Report Indication: ?? Fatty liver, abnormal LFTs Performed by: ??CECI Mijares Procedure: Vibration Controlled Transient Elastography (VCTE) or Fibroscan [place] Protocol: Patient's identity, procedure and site were [...] stool documented in this encounter Care Teams Wealth Management Director Relationship Specialty Start Date End Date Lidia Benson, PLYWOOD AND VENEER REPAIRER [address] [place] [address] PCP - General Family Medicine 02/28/18 08/23/19 documented as of this encounter
--- OUTSIDE RECORDS SUMMARY | 2024-06-14 17:12 | XMS_ITS | Encounter Summary ---
Author Organization [facility] Address [facility] [place] [address] Care Team Providers Care Bi Solutions Architect Name Role Phone None Primary Care Provider Unavailabl e Encounter Details Date Type Department Care Team (Late st Contact Info) Description 03/03/2017 [place] [address] Deshaun Chapman MD [facility] [place] [address] Social History Tobacco Use Types Packs/Day Years [...] on filedocumented in this encounter Care Teams Bi Solutions Architect Relationship Specialty Start Date End Date None None PCP - General 12/09/16 02/27/18 documented as of this encounter
--- OUTSIDE RECORDS SUMMARY | 2024-06-14 17:12 | XMS_ITS | Encounter Summary ---
Author Organization [facility] [place] [address] Care Team Providers Care Dye Reel Operator Helper Name Role Phone None Primary Care Provider Unavailabl e Encounter Details Date Type Department Care Team (Late st Contact Info) Description 02/21/2017 Orders Only [place] [address] Matthew Andrews MD [facility] [place] [address] Injury of left ankle, initial encounter Social [...] encounter documented in this encounter Care Teams Dye Reel Operator Helper Relationship Specialty Start Date End Date None None PCP - General 12/09/16 02/27/18 documented as of this encounter
--- OUTSIDE RECORDS SUMMARY | 2024-06-14 17:12 | XMS_ITS | Encounter Summary ---
Author Organization [facility] [place] [address] Care Team Providers Care Traffic Safety Administrator Name Role Phone None Primary Care Provider Unavailabl e Reason for Visit * Reason Onset Date Comments Prior Authorization 02/22/2017 [facility] PS[facility] rev iew correction 02/28/17 Encounter Details Date Type Department Care Team (Late st Contact Info) Description 02/22/2017 [place] [phone] Teagan Vyas MD [facility] [place] [address] Prior Authorization ([facility] PSY review correction 02/28/17) [...] on filedocumented in this encounter Care Teams Traffic Safety Administrator Relationship Specialty Start Date End Date None None PCP - General 4/6/17 6/25/18 documented as of this encounter
--- OUTSIDE RECORDS SUMMARY | 2024-06-14 17:12 | XMS_ITS | Encounter Summary ---
Author Organization [facility] [place] [address] Care Team Providers Care Legal Administrative Assistant Name Role Phone Lidia Benson APRN Primary Care Provider + [phone] Reason for Visit * Reason Onset Date Comments Hepatic Disease 10/16/2018 Encounter Details Date Type Department Care Team (Late st Contact Info) Description 10/16/2018 Telephone [place]ology [place] [address] Filomena Leyva Hepatic Disease Social History Tobacco [...] 10/17/2018 3:23 PM EST Called patient, left [facility] that she will need updated HFP [...] not have the EGD/ EUS and the Mchen[place] done on 08/01/18. I am routing to Dr. Calvillo documented in this encounter Plan of Treatment Not on file documented as of this encounter Visit Diagnoses Not on filedocumented in this encounter Care Teams Legal Administrative Assistant Relationship Specialty Start Date End Date Lidia Benson APRN [address] [place] [address] PCP - General Family Medicine 02/28/18 08/23/19 documented as of this encounter
--- OUTSIDE RECORDS SUMMARY | 2024-06-14 17:12 | XMS_ITS | Encounter Summary ---
Author Organization [facility] [place] [address] Care Team Providers Care Wood Last Maker Name Role Phone BeverlyLidia humphreys SONG Primary Care Provider + [phone] Encounter Details Date Type Department Care Team (Late st Contact Info) Description 07/10/2018 Telephone Gastroenterology at [facility] [place] [address] Jimmy Calvillo PA [address] [place] [address] [place] [address] Social History Tobacco Use Types Packs/Day Years [...] on filedocumented in this encounter Care Teams Wood Last Maker Relationship Specialty Start Date End Date Lidia Benson, CASE THERAPIST [address] [place] [address] PCP - General Family Medicine 02/28/18 08/23/19 documented as of this encounter
--- OUTSIDE RECORDS SUMMARY | 2024-06-14 17:12 | XMS_ITS | Encounter Summary ---
Author Organization [facility] [place] [address] Care Team Providers Care Handyman Name Role Phone None Primary Care Provider Unavailabl e Reason for Visit * Reason Onset Date Comments Prior Authorization 02/22/2017 DV 02/21/17 PSY ADMIT Encounter Details Date Type Department Care Team (Late st Contact Info) Description 02/22/2017 [place] [phone] Teagan Vyas MD [facility] [place] [place] [address] Prior Authorization (DV 02/21/17 PSY ADMIT) Social History Tobacco Use [...] current Third Green Party Vendor: Authorization number: [id number] Validity Dates: 02/21/17-02/28/17 with review due 02/28/17 Date of Service: 02/21/17 - still in house CPT/Description: NA ICD-10/Description:F20.9 (ICD-10-CM) - Schizophrenia Patient Class: PSY ADMIT How many days approved: 7 Call Reference Number: Spoke With: Phone Number: UR Contact Information UR Name Phone Number Additional Clinical Required Y/N?: review due 02/28/17 by calling Sadia Gee @ [phone], perauth letter. Notes - phone note with routing done documented in this encounter Plan of Treatment Not on file documented as of this encounter Visit Diagnoses Not on filedocumented in this encounter Care Teams Handyman Relationship Specialty Start Date End Date None None PCP - General 12/09/16 02/27/18 documented as of this encounter
--- OUTSIDE RECORDS SUMMARY | 2024-06-14 17:12 | XMS_ITS | Encounter Summary ---
Author Organization [facility] [place] [address] Care Team Providers Care Bridge Teacher Name Role Phone Lidia Benson APRN Primary Care Provider + [phone] Encounter Details Date Type Department Care Team (Late st Contact Info) Description 03/23/2018 Telephone [place] [phone] Shruthi Fisher Social History Tobacco Use Types [...] on filedocumented in this encounter Care Teams Bridge Teacher Relationship Specialty Start Date End Date Lidia Benson APRN [address] [place], [place] [id number] PCP - General Family Medicine 6/26/18 12/19/19 documented as of this encounter
--- OUTSIDE RECORDS SUMMARY | 2024-06-14 17:12 | XMS_ITS | Encounter Summary ---
Author Organization [facility] [place] [address] Care Team Providers Care Retail Pricing Coordinator Name Role Phone Lidia Benson APRN Primary Care Provider + [phone] Encounter Details Date Type Department Care Team (Late st Contact Info) Description 10/19/2018 Telephone Gastroenterology at [facility] [place] [phone] Toan Mena Social History Tobacco Use Types [...] labs done first. Pt said she uses [facility] for lab work so I faxed the orders there @ [phone]. documented in this encounter Plan of Treatment Not on file documented as of this encounter Visit Diagnoses Not on filedocumented in this encounter Care Teams Retail Pricing Coordinator Relationship Specialty Start Date End Date Lidia Benson APRN [address] [place], [place] [id number] PCP - General Family Medicine 02/28/18 08/23/19 documented as of this encounter
--- OUTSIDE RECORDS SUMMARY | 2024-06-14 17:12 | XMS_ITS | Encounter Summary ---
Author Organization [facility] [place] [address] Care Team Providers Care Grease Maker Head Name Role Phone Lidia Benson APRN Primary Care Provider + [phone] Encounter Details Date Type Department Care Team (Late st Contact Info) Description 07/18/[address] [facility] [place] [phone] Toan Mena Social History Tobacco Use Types [...] on filedocumented in this encounter Care Teams Grease Maker Head Relationship Specialty Start Date End Date Lidia Benson APRN [address] [facility] [address] PCP - General Family Medicine 02/28/18 08/23/19 documented as of this encounter
--- OUTSIDE RECORDS SUMMARY | 2024-06-14 17:12 | XMS_ITS | Encounter Summary ---
Author Organization [facility] [place] [address] Care Team Providers Care Facsimile Machine Operator Name Role Phone Lidia Benson APRN Primary Care Provider + [phone] Encounter Details Date Type Department Care Team (Late st Contact Info) Description 06/30/2018 Telephone [place] [address] Paula Alcala Social History Tobacco [...] - 06/30/2018 3:33 PM EDT Shaneka Samano [id number] Diagnosis: Upper endoscopy /Upper EUS/Liver Biopsy and Colonoscopy 1. Have you ever had a colonoscopy before? [] YES [x] NO If Yes, Date of Last [place]: If yes, did you have any problems with the procedure? [] YES [] NO Explain: What type of sedation was used: 2. Do you take any Blood Thinners? [] YES [x] NO If Yes, type: 3. Do you have a Pacemaker or Defibrillator device? [] YES [x] NO If Yes send inCoradiant message to [email or web address] ENDO DEVICE CHECK 4. Are you a [...] on filedocumented in this encounter Care Teams Facsimile Machine Operator Relationship Specialty Start Date End Date Lidia Benson APRN [address] [place] [address] PCP - General Family Medicine 02/28/18 08/23/19 documented as of this encounter
--- OUTSIDE RECORDS SUMMARY | 2024-06-14 17:12 | XMS_ITS | Encounter Summary ---
Author Organization [facility] [place] [address] Care Team Providers Care Revenue Manager Name Role Phone Lidia Benson APRN Primary Care Provider + [phone] Encounter Details Date Type Department Care Team (Late st Contact Info) Description 06/20/2018 Telephone Gastroenterology at [facility] [place] [phone] Shanon Galindo Social History Tobacco Use Types [...] on filedocumented in this encounter Care Teams Revenue Manager Relationship Specialty Start Date End Date Lidia Benson APRN [address] [place], [place] [id number] PCP - General Family Medicine 02/28/18 08/23/19 documented as of this encounter
--- OUTSIDE RECORDS SUMMARY | 2024-06-14 17:12 | XMS_ITS | Encounter Summary ---
Author Organization [facility] [place] [address] Care Team Providers Care Cra Name Role Phone None Primary Care Provider Unavailabl e Reason for Referral * Consultation (Routine) - Closed Specialty Diagnoses / Procedures Referred By Mateusz ibarra Referred To Contact Orthopaedics Diagnoses Post-traumatic wound infection Shaneka Mac APRN [facility] [place] [address] Costa Dorsey D[place] [address] Referral ID Status Reason Start Date Expiration Date V isits Requested Visits Authorized [id number] Closed Consult, Test & Treat 03/16/2017 03/16/2018 1 1 Reason for Visit * Reason Comments Follow Up Fracture L talus fx 02/19/17 Encounter Details Date Type Department Care Team (Late st Contact Info) Description 03/16/2017 1:00 PM EDT Office [place] [address] Matthew Andrews MD [facility] [place] [address] Post-traumatic wound infection; Closed displaced fracture of [...] encounter Progress Notes * Bubba Shaneka SONG Rikcs - 03/16/2017 1:00 PM EDT Name: Shaneka Samano Age:36 y.o. MR#: [id number] Date of Service: 03/16/2017 Staff: Dr. Dorsey [...] encounter documented in this encounter Care Teams Cra Relationship Specialty Start Date End Date None None PCP - General 12/09/16 02/27/18 documented as of this encounter
--- OUTSIDE RECORDS SUMMARY | 2024-06-14 17:12 | XMS_ITS | Encounter Summary ---
Author Organization [facility] [place] [address] Care Team Providers Care Snagger Name Role Phone None Primary Care Provider Unavailabl e Encounter Details Date Type Department Care Team (Late st Contact Info) Description 02/28/2017 Telephone [place] [address] Savana Burns RN Social History Tobacco Use [...] (date of original appointment), they can page [phone] and a resident to see the patient and remove the sutures. Lissett verbalizes herunderstanding and agrees with the plan. documented in this encounter Plan of Treatment Not on file documented as of this encounter Visit Diagnoses Not on filedocumented in this encounter Care Teams Snagger Relationship Specialty Start Date End Date None None PCP - General 12/09/16 02/27/18 documented as of this encounter
--- OUTSIDE RECORDS SUMMARY | 2024-06-14 17:12 | XMS_ITS | Encounter Summary ---
Author Organization [facility] [place] [address] Care Team Providers Care Cash Accounting Clerk Name Role Phone Lidia Benson APRN Primary Care Provider + [phone] Encounter Details Date Type Department Care Team (Late st Contact Info) Description 07/04/2018 Telephone Gastroenterology at [facility] [place] [phone] Vishal Majano Social History Tobacco Use Types [...] patient I would follow up with CECI Calivllo to see what he would like to do and we can go from there. She states her understanding. documented in this encounter Plan of Treatment Not on file documented as of this encounter Visit Diagnoses Not on filedocumented in this encounter Care Teams Cash Accounting Clerk Relationship Specialty Start Date End Date Lidia Benson APRN [address] [place] [address] PCP - General Family Medicine 02/28/18 08/23/19 documented as of this encounter
--- OUTSIDE RECORDS SUMMARY | 2024-06-14 17:12 | XMS_ITS | Encounter Summary ---
Author Organization [facility] [place] [address] Care Team Providers Care Combat Information Center Officer Name Role Phone Lidia Benson APRN Primary Care Provider + [phone] Reason for Visit * Consultation (Routine) - Closed Specialty Diagnoses / Procedures Referred By Mateusz ibarra Referred To Contact Gastroenterology Diagnoses Elevated LFTs Upper abdominal pain Irritable bowel syndrome with diarrhea Hematochezia Angela Pizarro APRN [address] [place] [address] [facility] [address] [place] [address] Referral ID Status Reason Start Date Expiration Date V isits Requested Visits Authorized [id number] Closed Consult, Test & Treat 06/13/2018 06/13/2019 1 1 Encounter Details Date Type Department Care Team (Late st Contact Info) Description 06/28/2018 3:00 PM EDT Office [place] [address] Jimmy Calvillo PA [address] [place] [address] [place] [address] METZGER (nonalcoholic steatohepatitis) (Primary Dx); Yedql-0-vddjrgtwagu deficiency carrier; Abnormal LFTs Social History Tobacco [...] (normal appearing liver on CT w/o 02/2018 @[facility]) - Abnormal LFTs through early 2017, most [...] Amenorrhea N91.2 ??? Urinary frequency R35.0 ??? 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 Shaneka [...] endoscopies, although has not spoken with a terminal block assembler about this yet. She does not remember [...] 2 years. She sees a psychiatrist through [facility] (Terrence Jeronimo APRN). She denies any [...] She lives alone in an apartment in [place]. She is on disability. She is . [...] of this 60 minute visit was in tngs-bz-odby discussion regarding disease, prognosis and treatment. [facility]I Morley-C Section of Gastroenterology [place] [address] Cc: Lidia Benson APRN @PCPADD@ documented in this encounter Plan of Treatment Not on file documented as of this encounter Visit Diagnoses Diagnosis METZGER (nonalcoholic steatohepatitis)- Primary Other chronic nonalcoholic liver disease Rpfvx-6-uoqayhdokab deficiency carrier Other genetic carrier status Abnormal LFTs Other abnormal blood chemistry documented in this encounter Care Teams Combat Information Center Officer Relationship Specialty Start Date End Date Lidia Benson APRN [address] [place] [address] PCP - General Family Medicine 02/28/18 08/23/19 documented as of this encounter
--- OUTSIDE RECORDS SUMMARY | 2024-06-14 17:12 | XMS_ITS | Encounter Summary ---
Author Organization [facility] [place] [address] Care Team Providers Care Furnace Filler Name Role Phone Lidia Benson APRN Primary Care Provider + [phone] Encounter Details Date Type Department Care Team (Late st Contact Info) Description 07/18/2018 Telephone [place] [phone] Toan Mena Social History Tobacco Use Types [...] on filedocumented in this encounter Care Teams Furnace Filler Relationship Specialty Start Date End Date Lidia Benson APRN [address] [place], [place] [id number] PCP - General Family Medicine 02/28/18 08/23/19 documented as of this encounter
--- OUTSIDE RECORDS SUMMARY | 2024-06-14 17:12 | XMS_ITS | Encounter Summary ---
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 variation 13.3 11.5 - 14.1 % [facility] Mean Platelet Volume 9.0 7.6 - 12.9 fL [facility] NRBC% auto 0.0 % [facility] NRBC Absolute 0.000 0.000 - 0.000 x10(3)/ L [facility] Blood specimen (specimen) 03/02/2017 5:51 AM EDT 03/02/2017 5:55 AM EDT Narrative Resulting Agency Comment Spec In Lab Deshaun Noble MD HEMATOLOGY ORDERABL ES [facility] [place] [address] * (ABNORMAL) Differential, Automated (02/28/2017 9:23 PM EDT) Neutrophil % 65.0 % [facility] Neutrophil Absolute 6.89(H) 1.70 - 6.10 x10(3)/mc L [facility] Lymph % 22.6 % [facility] Lymphocytes Abs 2.4 0.9 - 3.2 x10(3)/mc L [facility] Monocyte % 7.1 % [facility] Monocyte Abs 0.8 0.3 - 0.9 x10(3)/ L [facility] Eos % 3.6 % [facility] Eosinophils Abs 0.4 0.0 - 0.4 x10(3)/ L [facility] Basophil % 0.5 % [facility] Baso Absolute 0.0 0.0 - 0.1 x10(3)/mc L [facility] Immature Gran % 1.20 % [facility] Comment: Immature granulocytes(IG's)percentage and absolute count will include metamyelocytes, myelocytes, and promyelocytes. Blood smears from CBCs yielding IG's will be scanned manually for concordance. If this scan disagrees with the automated IG or if promyelocytes are noted, a manual differential will be performed. Immature Gran Absolute 0.13(H) 0.00 - 0.04 x10(3)/[facility] Blood specimen (specimen) 02/28/2017 9:23 PM EDT 02/28/2017 9:32 PM EDT Narrative Resulting Agency Comment Spec In Lab Deshaun Noble MD HEMATOLOGY ORDERABL ES [facility] [place] [address] * (ABNORMAL) Hemogram (02/28/2017 9:23 PM EDT) White Blood Cell 10.6(H) 4.0 - 9.5 x10(3)/[facility] Red Blood Cell 3.50(L) 4.00 - 5.21 x10(6)/[facility] Hemoglobin 11.1(L) 11.7 - 15.5 gm/dL [facility] Hematocrit 32.7(L) 35.7 - 45.8 % [facility] Mean Cell Volume 93.4 82.6 - 94.4 fL [facility] Mean Cell Hemoglobin 31.7 27.1 - 32.0 pg [facility] Mean Cell Hemoglobin Concentration 33.9 31.7 - 35.0 gm/dL [facility] Platelet 420(H) 145 - 357 x10(3)/[facility] RDW Standard Deviation 45.1 37.0 - 46.0 [facility] RDW coefficient of variation 13.3 11.5 - 14.1 % [facility] Mean Platelet Volume 9.2 7.6 - 12.9 [facility] NRBC% auto 0.0 % [facility] NRBC Absolute 0.000 0.000 - 0.000 x10(3)/[facility] Blood specimen (specimen) 02/28/2017 9:23 PM EDT 02/28/2017 9:32 PM EDT Narrative Resulting Agency Comment Spec In Lab Deshaun Noble MD HEMATOLOGY ORDERABL ES [facility] [place] [address] * (ABNORMAL) Hemoglobin A1c (02/28/2017 9:23 PM EDT) Hemoglobin A1c 5.8(H) 4.3 - 5.6 % [facility] Comment: Reference Range: 4.3 [...] Mellitus, Diabetes Care 2013; 36: Suppl. 1, I87-30 Estimated Average Glucose 120 mg/dL [facility] Comment: eAG equivalents for [...] into estimated average glucose values. ??Diabetes Care 2008:31(8):6562-2285. Blood specimen (specimen) 02/28/2017 9:23 PM EDT 02/28/2017 9:32 PM EDT Narrative Resulting Agency Comment Spec In Lab Deshaun Noble MD CHEMISTRY ORDERABLE S [facility] [place] [address] * (ABNORMAL) Basic Metabolic Panel (non-fasting) (02/28/2017 9:23 PM EDT) Glucose 158 65 - 199 mg/dL [facility] Comment:Diabetes: >=200 mg/d L plus symptoms Blood Urea Nitrogen 7(L) 8 - 18 mg/dL [facility] Creatinine 0.70 0.70 - 1.20 mg/dL [facility] Comment: Please note that the pediatric reference intervals supplied above were not validated at [facility]. Results from pediatric patients should be interpreted in conjunction to the patient's age, height and muscle mass. Sodium 139 135 - 145 mmol/L [facility] Potassium 3.9 3.5 - 5.0 mmol/L [facility] Comment: Please note: ??Patients with WBC >100,000 may have falsely elevated Potassium levels. ??For accurate Potassium quantification in these patients send serum separator tube (gold top) for subsequent determinations. ??Contact the Clinical Chemistry Laboratory if there are any questions. Chloride 104 98 - 107 mmol/L [facility] Carbon Dioxide 20(L) 22 - 31 mmol/L [facility] Anion Gap 15 5 - 15 mmol/L [facility] Calcium 9.2 8.5 - 10.5 mg/dL [facility] Est Glomerular Filtration Rate [...] the following links into your internet browser. [email or web address] Blood specimen (specimen) 02/28/2017 9:23 PM EDT 02/28/2017 9:32 PM EDT Narrative Resulting Agency Comment Spec In Lab Deshaun Noble MD CHEMISTRY ORDERABLE S Performing Organization Address [facility] Co de Phone Number [facility] [place] [address] * POCT Glucose (02/25/2017 7:36 AM EDT) Glucose, POC 127 65 - 199 mg/dL [facility] Comment: Supplemental ranges: <140 mg/dL before meals <180 mg/dL all other times of the day Blood specimen (specimen) 02/25/2017 7:36 AM EDT 02/25/2017 7:36 AM EDT Teagan Vyas MD POINT OF CARE TEST O ERIN Performing Organization Address [facility] Co de Phone Number [facility] [place] [address] * POCT Glucose (02/24/2017 7:32 AM EDT) Glucose, POC 148 65 - 199 mg/dL [facility] Comment: Supplemental ranges: <140 mg/dL before meals <180 mg/dL all other times of the day Blood specimen (specimen) 02/24/2017 7:32 AM EDT 02/24/2017 7:32 AM EDT Teagan Vyas MD POINT OF CARE TEST O ERIN Performing Organization Address City/[facility]/ZIP Co de Phone Number [facility] [place] [address] * (ABNORMAL) Hepatic Function Panel (02/22/2017 11:40 AM EDT) [facility] Protein, Total 7.3 6.1 - 8.0 gm/dL [facility] Albumin 3.9 3.2 - 5.2 gm/dL [facility] Aspartate Aminotransferase 31(H) 0 - 30 unit/L [facility] Alanine Aminotransferase 35(H) 0 - 30 unit/L [facility] Alkaline Phosphatase 89 40 - 104 unit/L [facility] Bilirubin, Total Not Perf 0.2 - 1.3 mg/dL [facility] Comment:Analyte stability ex ceeded; test not performed. Bilirubin, Direct Not Perf 0.0 - 0.3 mg/dL [facility] Comment:Analyte stability ex ceeded; test not performed. Blood specimen (specimen) Venous Draw / Unknown 02/22/2017 11:40 AM EDT 02/22/2017 12:10 PM EDT Narrative Resulting Agency Comment Spec In Lab Teagan Vyas MD CHEMISTRY ORDERABLES [facility] [place] [address] * Scan, Peripheral Blood (02/22/2017 11:40 AM EDT) [facility] Plat estimate Increased [facility] RBC Morphology Normal [facility] Plat, Giant Less than 1 /HPF [facility] Blood specimen (specimen) 02/22/2017 11:40 AM EDT 02/22/2017 11:48 AM EDT Narrative Resulting Agency Comment Spec In Lab Teagan Vyas MD HEMATOLOGY ORDERABLE S [facility] [place] [address] * (ABNORMAL) Differential, Automated (02/22/2017 11:40 AM EDT) [facility] Neutrophil % 75.4 % [facility] Neutrophil Absolute 6.80(H) 1.70 - 6.10 x10(3)/[facility] Lymph % 16.9 % [facility] Lymphocytes Abs 1.5 0.9 - 3.2 x10(3)/[facility] Monocyte % 4.5 % [facility] Monocyte Abs 0.4 0.3 - 0.9 x10(3)/[facility] Eos % 2.3 % [facility] Eosinophils Abs 0.2 0.0 - 0.4 x10(3)/[facility] Basophil % 0.3 % [facility] Baso Absolute 0.0 0.0 - 0.1 x10(3)/[facility] Immature Gran % 0.60 % [facility] Comment: Immature granulocytes(IG's)percentage and absolute count will include metamyelocytes, myelocytes, and promyelocytes. Blood smears from CBCs yielding IG's will be scanned manually for concordance. If this scan disagrees with the automated IG or if promyelocytes are noted, a manual differential will be performed. Immature Gran Absolute 0.05(H) 0.00 - 0.04 x10(3)/[facility] Blood specimen (specimen) 02/22/2017 11:40 AM EDT 02/22/2017 11:48 AM EDT Narrative Resulting Agency Comment Spec In Lab Teagan Vyas MD HEMATOLOGY ORDERABLE S [facility] [place] [address] * (ABNORMAL) Hemogram (02/22/2017 11:40 AM EDT) White Blood Cell 9.0 4.0 - 9.5 x10(3)/[facility] Red Blood Cell 3.92(L) 4.00 - 5.21 x10(6)/mc L [facility] Hemoglobin 12.3 11.7 - 15.5 gm/dL [facility] Hematocrit 35.5(L) 35.7 - 45.8 % [facility] Mean Cell Volume 90.6 82.6 - 94.4 fL [facility] Mean Cell Hemoglobin 31.4 27.1 - 32.0 pg [facility] Mean Cell Hemoglobin Concentration 34.6 31.7 - 35.0 gm/dL [facility] Platelet 385(H) 145 - 357 x10(3)/mc L [facility] RDW Standard Deviation 43.3 37.0 - 46.0 fL [facility] RDW coefficient of variation 13.1 11.5 - 14.1 % [facility] Mean Platelet Volume 9.6 7.6 - 12.9 fL [facility] NRBC% auto 0.0 % [facility] NRBC Absolute 0.000 0.000 - 0.000 x10(3)/mc L [facility] Blood specimen (specimen) 02/22/2017 11:40 AM EDT 02/22/2017 11:48 AM EDT Narrative Resulting Agency Comment Spec In Lab Teagan Vyas MD HEMATOLOGY ORDERABLE S [facility] [place] [address] * (ABNORMAL) Basic Metabolic Panel (non-fasting) (02/22/2017 11:40 AM EDT) Glucose 190 65 - 199 mg/dL [facility] Comment:Diabetes: >=200 mg/d L plus symptoms Blood Urea Nitrogen 6(L) 8 - 18 mg/dL [facility] Creatinine 0.74 0.70 - 1.20 mg/dL [facility] Comment: Please note that the pediatric reference intervals supplied above were not validated at [facility]. Results from pediatric patients should be interpreted in conjunction to the patient's age, height and muscle mass. Sodium 141 135 - 145 mmol/L [facility] Potassium 3.8 3.5 - 5.0 mmol/L [facility] Comment: Please note: ??Patients with WBC >100,000 may have falsely elevated Potassium levels. ??For accurate Potassium quantification in these patients send serum separator tube (gold top) for subsequent determinations. ??Contact the Clinical Chemistry Laboratory if there are any questions. Chloride 103 98 - 107 mmol/L [facility] Carbon Dioxide 20(L) 22 - 31 mmol/L [facility] Anion Gap 18(H) 5 - 15 mmol/L [facility] Calcium 9.3 8.5 - 10.5 mg/dL [facility] Est Glomerular Filtration Rate [...] the following links into your internet browser. [email or web address] Blood specimen (specimen) 02/22/2017 11:40 AM EDT 02/22/2017 11:48 AM EDT Narrative Resulting Agency Comment Spec In Lab Teagan Vyas MD CHEMISTRY ORDERABLES [facility] [place] [address] * TSH (02/22/2017 11:40 AM EDT) Thyroid Stimulating Hormone 2.33 0.27 - 4.20 mlU/ML [facility] Blood specimen (specimen) 02/22/2017 11:40 AM EDT 02/22/2017 11:48 AM EDT Narrative Resulting Agency Comment Spec In Lab Teagan Vyas MD CHEMISTRY ORDERABLES [facility] [place] [address] * EKG 12 Lead (02/22/2017 8:41 AM EDT) Ventricular rate 94 BPM MUSE SYSTEM Atrial Rate 94 BPM MUSE SYSTEM P-R Interval 150 ms MUSE SYSTEM QRS Duration 80 ms MUSE SYSTEM Q-T Interval 374 ms MUSE SYSTEM QTC Calculated (Bezet) 467 ms MUSE SYSTEM Calculated P [place] 51 degrees MUSE SYSTEM Calculated R [place] 46 degrees MUSE SYSTEM Calculated T [place] 33 degrees MUSE SYSTEM INTERPRETATION Sinus rhythm [...] Sue Mercado RN)2316 (Given - Provider: Sue Mecrado RN) 0529 (Given - Provider: Joel Lemos [...] patch documented in this encounter Care Teams Hide Shaker Relationship Specialty Start Date End Date None None PCP - General 12/09/16 02/27/18 documented as of this encounter
--- OUTSIDE RECORDS SUMMARY | 2024-06-14 17:12 | XMS_ITS | Encounter Summary ---
Author Organization [facility] [place] [address] Care Team Providers Care Spindle Frame Carver Name Role Phone Lidia Benson APRN Primary Care Provider + [phone] Encounter Details Date Type Department Care Team (Late st Contact Info) Description 06/28/2018 Telephone [place] [phone] Paula Alcala Social History Tobacco Use Types [...] on filedocumented in this encounter Care Teams Spindle Frame Carver Relationship Specialty Start Date End Date Lidia Benson APRN [address] [place] [address] PCP - General Family Medicine 02/28/18 08/23/19 documented as of this encounter
--- OUTSIDE RECORDS SUMMARY | 2024-06-14 17:12 | XMS_ITS | Encounter Summary ---
Author Organization [facility] [address] Care Team Providers Care Sign Erector Name Role Phone Lidia Benson APRN Primary Care Provider + [phone] Encounter Details Date Type Department Care Team (Late st Contact Info) Description 10/16/2018 Orders Only [facility] [place] [id number] Jimmy Calvillo PA [address] [place] [address] [place] [address] Abnormal liver function tests Social History Tobacco [...] chemistry documented in this encounter Care Teams Sign Erector Relationship Specialty Start Date End Date Lidia Benson APRN [address] [place] [address] PCP - General Family Medicine 02/28/18 08/23/19 documented as of this encounter
--- OUTSIDE RECORDS SUMMARY | 2024-06-14 17:12 | XMS_ITS | Encounter Summary ---
Author Organization [facility] [place] [address] Care Team Providers Care Film Spooler Name Role Phone Lidia Benson APRN Primary Care Provider + [phone] Reason for Referral * Consultation (Routine) - Closed Specialty Diagnoses / Procedures Referred By Mateusz ibarra Referred To Contact Gastroenterology Diagnoses Elevated LFTs Upper abdominal pain Irritable bowel syndrome with diarrhea Hematochezia Angela Pizarro APRN [address] [place] [address] [facility] [address] [place] [address] Referral ID Status Reason Start Date Expiration Date V isits Requested Visits Authorized [id number] Closed Consult, Test & Treat 06/13/2018 06/13/2019 1 1 Reason for Visit * Reason Comments GI Problem Encounter Details Date Type Department Care Team (Late st Contact Info) Description 06/13/2018 2:00 PM EDT Office [place] [address] Angela Pizarro APRN [address] [place] [address] Elevated LFTs; Upper abdominal pain; [...] time to identify triggers. ADDITIONAL RESOURCES: *[facility] has a wonderful kee available for this diet *We also recommend a blog called [email or web address]. Follow up appointment 2-3 weeks after upper endoscopy and colonoscopy documented in this encounter Progress Notes * Angeal Pizarro APRN - 06/13/2018 2:00 PM EDT CEMENT DESPATCH OPERATOR: Angela Pizarro APRN PCP: Lidia Benson APRN [...] Denies straining and difficulty emptying. Stools are [place] type 4/5. Denies mucus in stool. Feels [...] by mouth., Disp: , Rfl: ??? lancets [facility] [facility]Non-Drug; Combo Route) route., Disp: , Rfl: ??? Blood-Glucose Meter [facility] [facility]Non-Drug; Combo Route) route., Disp: , Rfl: ??? [...] Component Value Date TSH 2.33 02/22/2017 06/07/18 ([facility]); Platelets 262 AST 175 ALT 130 Alk [...] 3:01 PM Section of Gastroenterology & Hepatology [facility] documented in this encounter Miscellaneous Notes * [...] PM EDT Upper abdominal pain Elevated LFTs [id number] Routine 06/13/2018 3 :46 PM EDT Elevated [...] pain Elevated LFTs HIV SCREEN, 4TH GENERATION ([facility]/CGP/APD/NLH) Routine 06/13/2018 3:46 PM EDT Upper abdominal [...] in the ? S? phenotype ([id number].[id number] A>T; [id number]) and the ? Z? phenotype (c. 1096G>A; [id number]) are amplified and genotyped by two separate [...] [facility] [facility] [employer] (CGAT) Laboratory at [facility]. It has not been cleared or approved by the FDA. The laboratory is regulated under CLIA as qualified to perform high-complexity testing. This test is used for clinical purposes. It should not be regarded as investigational or for research. [facility] Comment: [VERIFIED DATE]06.19.18 Verified By:Karlie Abarca (Electronic Signature) Blood specimen (specimen) 06/13/2018 3:46 PM EDT 06/14/2018 9:42 AM EDT Narrative Resulting Agency Comment Spec In Lab Angela Pizarro LANG PATH THERAPIST CHEMISTRY ORDERA BLES [facility] [place] [address] * (ABNORMAL) A1AT Serum Concentration (06/13/2018 3:46 PM EDT) A1AT 77(L) 90 - 200 mg/dL [facility] Comment: To convert [id number] to SI unit (umol/L), multiply result (mg/dL) by 0.184. Blood specimen (specimen) 06/13/2018 3:46 PM EDT 06/13/2018 3:50 PM EDT Narrative Resulting Agency Comment Spec In Lab Angela Lynch Juarez LANG PATH THERAPIST CHEMISTRY ORDERA BLES Performing Organization Address City/[facility]/[place] [address] * (ABNORMAL) Differential, Automated (06/13/2018 3:46 PM EDT) Neutrophil % 59.3 % [facility] Neutrophil Absolute 5.29 1.70 - 6.10 x10(3)/mc L [facility] Lymph % 29.7 % [facility] Lymphocytes Abs 2.6 0.9 - 3.2 x10(3)/ L [facility] Monocyte % 7.0 % [facility] Monocyte Abs 0.6 0.3 - 0.9 x10(3)/[facility] Eos % 2.1 % [facility] Eosinophils Abs 0.2 0.0 - 0.4 x10(3)/ L [facility] Basophil % 0.6 % [facility] Baso Absolute 0.0 0.0 - 0.1 x10(3)/ L [facility] Immature Gran % 1.30 % [facility] Comment: Immature granulocytes(IG's)percentage and absolute count will include metamyelocytes, myelocytes, and promyelocytes. Blood smears from CBCs yielding IG's will be scanned manually for concordance. If this scan disagrees with the automated IG or if promyelocytes are noted, a manual differential will be performed. Immature Gran Absolute 0.12(H) 0.00 - 0.04 x10(3)/ L [facility] Blood specimen (specimen) 06/13/2018 3:46 PM EDT 06/13/2018 3:50 PM EDT Narrative Resulting Agency Comment Spec In Lab Angela Lynch Juarez LANG PATH THERAPIST HEMATOLOGY ORDER MICHEL Performing Organization Address City/[facility]/ZIP Co de Phone Number [facility] [place] [address] * (ABNORMAL) Hemogram (06/13/2018 3:46 PM EDT) White Blood Cell 8.9 4.0 - 9.5 x10(3)/[facility] Red Blood Cell 4.50 4.00 - 5.21 x10(6)/[facility] Hemoglobin 14.9 11.7 - 15.5 gm/dL [facility] Hematocrit 41.8 35.7 - 45.8 % [facility] Mean Cell Volume 92.9 82.6 - 94.4 fL [facility] Mean Cell Hemoglobin 33.1(H) 27.1 - 32.0 pg [facility] Mean Cell Hemoglobin Concentration 35.6(H) 31.7 - 35.0 gm/dL [facility] Platelet 274 145 - 357 x10(3)/[facility] RDW Standard Deviation 41.0 37.0 - 46.0 [facility] RDW coefficient of variation 11.9 11.5 - 14.1 % [facility] Mean Platelet Volume 9.5 7.6 - 12.9 fL [facility] NRBC% auto 0.0 % [facility] NRBC Absolute 0.000 0.000 - 0.000 x10(3)/[facility] Blood specimen (specimen) 06/13/2018 3:46 PM EDT 06/13/2018 3:50 PM EDT Narrative Resulting Agency Comment Spec In Lab Angela Pizarro LANG PATH THERAPIST HEMATOLOGY ORDER MICHEL [facility] [place] [address] * IgA (06/13/2018 3:46 PM EDT) IgA 287 70 - 400 mg/dL [facility] Blood specimen (specimen) 06/13/2018 3:46 PM EDT 06/13/2018 3:50 PM EDT Narrative Resulting Agency Comment Spec In Lab Angela Braxtonreganteena LANG PATH THERAPIST CHEMISTRY ORDERA BLES [facility] [place] [address] * Tissue transglutaminase, IgA (06/13/2018 3:46 PM EDT) [facility] TTG IgA Ab <1.2 <4.0 (Negative) unit/mL [facility] Comment: Test Performed by: [address] [address] Blood specimen (specimen) 06/13/2018 3:46 PM EDT 06/14/2018 8:50 AM EDT Narrative Resulting Agency Comment Spec In Lab Angela Braxtonkristine AUGUSTINN IMMUNOLOGY ORDER MICHEL Performing Organization Address [facility]/ZIP Co de Phone Number [facility] [place] [address] * Ceruloplasmin (06/13/2018 3:46 PM EDT) [facility] Ceruloplasmin 25.0 16.0 - 45.0 mg/dL [facility] Blood specimen (specimen) 06/13/2018 3:46 PM EDT 06/13/2018 3:50 PM EDT Narrative Resulting Agency Comment Spec In Lab Angela Braxtonkristine AUGUSTINN CHEMISTRY ORDERA BLES Performing Organization Address City/[facility]/ZIP Co de Phone Number [facility] [place] [address] * (ABNORMAL) Ferritin (06/13/2018 3:46 PM EDT) [facility] Ferritin 220(H) 15 - 150 ng/mL [facility] Comment: Pediatric reference ranges not verified at [facility], interpret with caution. Reference ranges for females greater than 50 years of age approach values for men, i.e., 30-400 ng/mL. Blood specimen (specimen) 06/13/2018 3:46 PM EDT 06/13/2018 3:50 PM EDT Narrative Resulting Agency Comment Spec In Lab Angela Pizarro LANG PATH THERAPIST CHEMISTRY ORDERA BLES Performing Organization Address [facility] Co de Phone Number [facility] [place] [address] * Iron and TIBC (06/13/2018 3:46 PM EDT) Iron 73 30 - 150 mcg/dL [facility] TIBC 334 250 - 450 mcg/dL [facility] Iron Saturation 22 20 - 50 % [facility] Blood specimen (specimen) 06/13/2018 3:46 PM EDT 06/13/2018 3:50 PM EDT Narrative Resulting Agency Comment Spec In Lab Angela Pizarro LANG PATH THERAPIST CHEMISTRY ORDERA BLES Performing Organization Address [facility] Co de Phone Number [facility] [place] [address] * Protein Electrophoresis, serum (06/13/2018 3:46 PM EDT) Total Prot Electrophoresis 6.8 6.1 - 8.0 gm/dL [facility] Albumin Electrophoresis 4.29 3.60 - 6.00 gm/dL [facility] Alpha 1 Globulin 0.12 0.10 - 0.30 gm/dL [facility] Alpha 2 Globulin 0.69 0.40 - 0.90 gm/dL [facility] Beta Globulin 1.00 0.50 - 1.00 gm/dL [facility] Gamma Globulin 0.70 0.50 - 1.30 gm/dL [facility] M1 Band None Detected None Detected [facility] Blood specimen (specimen) 06/13/2018 3:46 PM EDT 06/13/2018 3:50 PM EDT Narrative Resulting Agency Comment Spec In Lab Angela Pizarro LANG PATH THERAPIST CHEMISTRY ORDERA BLES Performing Organization Address [facility] Co de Phone Number [facility] [place] [address] * IgG (06/13/2018 3:46 PM EDT) Immunoglobulin G 838 700 - 1,600 mg/dL [facility] Blood specimen (specimen) 06/13/2018 3:46 PM EDT 06/13/2018 3:50 PM EDT Narrative Resulting Agency Comment Spec In Lab Angela Pizarro APRN CHEMISTRY ORDERA BLES Performing Organization Address [facility] Co de Phone Number [facility] [place] [address] * Mitochondrial Antibody, M2 (06/13/2018 3:46 PM EDT) Mitochon Ab (JANUARY) <0.1 <0.1 (Negative) U [facility] Comment: Test Performed by: [facility] - [address] [address] Blood specimen (specimen) 06/13/2018 3:46 PM EDT 06/14/2018 8:50 AM EDT Narrative Resulting Agency Comment Spec In Lab Angela Braxtonreganteena SONG LAB SEND OUT ORD ERABLES Performing Organization Address [facility] Co de Phone Number [facility] [place] [address] * Smooth Muscle Antibody (06/13/2018 3:46 PM EDT) Sm Muscle Ab (JANUARY) Negative Negative M [facility] Comment: ADDITIONAL INFORMATION This test was developed and its performance characteristics determined by [facility] in a manner consistent with CLIA requirements. This test has not been cleared or approved by the U.S. Food and Drug Administration. Test Performed by: [facility] - [address] [address] Blood specimen (specimen) 06/13/2018 3:46 PM EDT 06/14/2018 8:50 AM EDT Narrative Resulting Agency Comment Spec In Lab Angela Pizarro APRN LAB SEND OUT ORD ERABLES [facility] [place] [address] * LUTHER (06/13/2018 3:46 PM EDT) LUTHER Neg Neg [facility] Blood specimen (specimen) 06/13/2018 3:46 PM EDT 06/14/2018 7:40 AM EDT Narrative Resulting Agency Comment Spec In Lab Angela Pizarro APRN LAB SEND OUT ORD ERABLES Performing Organization Address [facility]/ZIP Co de Phone Number [facility] [place] [address] * HIV Screen, 4th Generation (06/13/2018 3:46 PM EDT) [facility] HIV Ab/Ag Screen Negative Negative [facility] Comment: This 4th [...] APRN CHEMISTRY ORDERA BLES Performing Organization Address City/[facility]/ZIP Co de Phone Number [facility] [place] [address] * Hepatitis C Antibody (06/13/2018 3:46 PM EDT) Hepatitis C Antibody Negative Negative [facility] Blood specimen (specimen) 06/13/2018 3:46 PM EDT 06/13/2018 3:50 PM EDT Narrative Resulting Agency Comment Spec In Lab Angela Pizarro LANG PATH THERAPIST CHEMISTRY ORDERA BLES Performing Organization Address City/[facility]/ZIP Co de Phone Number [facility] [place] [address] * Hepatitis B Core Antibody, Total (06/13/2018 3:46 PM EDT) Hepatitis B Core Antibody Negative Negative [facility] Blood specimen (specimen) 06/13/2018 3:46 PM EDT 06/13/2018 3:50 PM EDT Narrative Resulting Agency Comment Spec In Lab Angela Pizarro LANG PATH THERAPIST CHEMISTRY ORDERA BLES Performing Organization Address City/[facility]/ZIP Co de Phone Number [facility] [place] [address] * Hepatitis B Surface Antigen (06/13/2018 3:46 PM EDT) Hepatitis B Surface Antigen Negative Negative [facility] Blood specimen (specimen) 06/13/2018 3:46 PM EDT 06/13/2018 3:50 PM EDT Narrative Resulting Agency Comment Spec In Lab Angela Pizarro LANG PATH THERAPIST CHEMISTRY ORDERA BLES Performing Organization Address City/[facility]/ZIP Co de Phone Number [facility] [place] [address] * Hepatitis B Surface Antibody (06/13/2018 3:46 PM EDT) Hepatitis B Surface Antibody, Quantitative 231.5 IU/L [facility] Comment: HepB Surface Ab Quant: Unvaccinated: < 8.5 IU/L Vaccinated: > 11.5 IU/L Hepatitis B Surface Antibody Positive [facility] Comment: Patient is considered to be immune to HBV infection. Expected Results: Vaccinated: Positive Unvaccinated: Negative Blood specimen (specimen) 06/13/2018 3:46 PM EDT 06/13/2018 3:50 PM EDT Narrative Resulting Agency Comment Spec In Lab Angela Pizarro LANG PATH THERAPIST CHEMISTRY ORDERA BLES Performing Organization Address [facility] Co de Phone Number [facility] [place] [address] * Hepatitis A Antibody, Total (06/13/2018 3:46 PM EDT) Hepatitis A ANTIBODY, TOTAL Negative Negative [facility] Blood specimen (specimen) 06/13/2018 3:46 PM EDT 06/13/2018 3:50 PM EDT Narrative Resulting Agency Comment Spec In Lab Angela Pizarro LANG PATH THERAPIST CHEMISTRY ORDERA BLES Performing Organization Address [facility] Co de Phone Number [facility] [place] [address] * (ABNORMAL) Comprehensive metabolic panel (non-fasting) (06/13/2018 3:46 PM EDT) Glucose 273(H) 65 - 199 mg/dL [facility] Comment:Diabetes: >=200 mg/d L plus symptoms Blood Urea Nitrogen 10 8 - 18 mg/dL [facility] Creatinine 0.68(L) 0.70 - 1.20 mg/dL [facility] Sodium 136 135 - 145 mmol/L [facility] Potassium 3.8 3.5 - 5.0 mmol/L [facility] Comment: Please note: ??Patients with WBC >100,000 may have falsely elevated Potassium levels. ??For accurate Potassium quantification in these patients send serum separator tube (gold top) for subsequent determinations. ??Contact the Clinical Chemistry Laboratory if there are any questions. Chloride 100 98 - 107 mmol/L [facility] Carbon Dioxide 19(L) 22 - 31 mmol/L [facility] Anion Gap 17(H) 5 - 15 mmol/L [facility] Calcium 9.2 8.5 - 10.5 mg/dL [facility] Protein, Total 6.9 6.1 - 8.0 gm/dL [facility] Albumin 4.0 3.2 - 5.2 gm/dL [facility] Aspartate Aminotransferase 90(H) 0 - 30 unit/L [facility] Alanine Aminotransferase 109(H) 0 - 30 unit/L [facility] Alkaline Phosphatase 190(H) 40 - 104 unit/L [facility] Bilirubin, Total 0.2 0.2 - 1.3 mg/dL [facility] Est Glomerular Filtration Rate 112 >=60 mL/min/1. 73 m?? [facility] Comment: The eGFR was calculated using the CKD-EPI equation. As with all creatinine based estimates of kidney function, eGFR values calculated with the CKD-EPI equation are not accurate in patients with acute kidney failure, extremes of body mass or the acutely ill. http://Vineloop/Taamkrunkf eGFR 130 >=60 mL/min/1. 73 m?? [facility] Comment: The eGFR was calculated using the CKD-EPI equation. As with all creatinine based estimates of kidney function, eGFR values calculated with the CKD-EPI equation are not accurate in patients with acute kidney failure, extremes of body mass or the acutely ill. [email or web address]://Vineloop/DHMCnkf Blood specimen (specimen) 06/13/2018 3:46 PM EDT 06/13/2018 3:50 PM EDT Narrative Resulting Agency Comment Spec In Lab Angela Pizarro LANG PATH THERAPIST CHEMISTRY ORDERA BLES [facility] [place] [address] * [id number] (06/13/2018 3:36 PM EDT) Narrative Jimmy Calvillo PA - 06/13/2018 3:36 PM EDT Jimmy Calvillo PA ? 06/13/2018 ??3:36 PM [facility] Liver Fibrosis Assessment Report Indication: ?? Fatty liver, abnormal LFTs Performed by: ??[facility] Procedure: Vibration Controlled Transient Elastography (VCTE) or Fibroscan [place] Protocol: Patient's identity, procedure and site were [...] stool documented in this encounter Care Teams Film Spooler Relationship Specialty Start Date End Date Lidia Benson APRN [address] [place] [address] PCP - General Family Medicine 02/28/18 08/23/19 documented as of this encounter
--- OUTSIDE RECORDS SUMMARY | 2024-06-14 17:12 | XMS_ITS | Encounter Summary ---
Author Organization [facility] [place] [address] Care Team Providers Care Marketing Production Specialist Name Role Phone None Primary Care Provider Unavailabl e Encounter Details Date Type Department Care Team (Late st Contact Info) Description 03/03/2017 Orders Only Psychiatry and Behavioral Health at [facility] [place] [address] Sancho Deras Jr., MD [facility] [place] [address] Social History Tobacco Use Types Packs/Day Years [...] to send these two prescriptions to [facility] after reviewing her discharge paperwork and confirming these were discharge medications. documented in this encounter Plan of Treatment Not on file documented as of this encounter Visit Diagnoses Not on filedocumented in this encounter Care Teams Marketing Production Specialist Relationship Specialty Start Date End Date None None PCP - General 12/09/16 02/27/18 documented as of this encounter
--- OUTSIDE RECORDS SUMMARY | 2024-06-14 17:12 | XMS_ITS | Encounter Summary ---
Author Organization [facility] [place] [address] Care Team Providers Care Production Clerk Name Role Phone None Primary Care Provider Unavailabl e Encounter Details Date Type Department Care Team (Latest Contact Info) Description 03/16/2017 12:00 PM EDT - 03/16/2017 11:59 PM EDT Hospital Encounter XRay at [address] [place] [address] Matthew Andrews MD [facility] [place] [address] Injury of left ankle, initial encounter Discharge [...] encounter documented in this encounter Care Teams Production Clerk Relationship Specialty Start Date End Date None None PCP - General 12/09/16 02/27/18 documented as of this encounter
--- OUTSIDE RECORDS SUMMARY | 2024-06-14 17:12 | XMS_ITS | Encounter Summary ---
Author Organization [facility] [place] [address] Care Team Providers Care Dietitian Chief Name Role Phone KelleyLidia SONG Primary Care Provider + [phone] Encounter Details Date Type Department Care Team (Late st Contact Info) Description 07/10/2018 Telephone [place] [phone] Jimmy Calvillo PA [address] [place] [address] [place] [address] Social History Tobacco Use Types Packs/Day Years [...] [facility]-C Section of Gastroenterology [place] [address] documented in this encounter Plan of Treatment Not on file documented as of this encounter Visit Diagnoses Not on filedocumented in this encounter Care Teams Dietitian Chief Relationship Specialty Start Date End Date Lidia Benson APRN [address] [place] [address] PCP - General Family Medicine 02/28/18 08/23/19 documented as of this encounter
--- OUTSIDE RECORDS SUMMARY | 2024-06-14 17:13 | XMS_ITS | Encounter Summary ---
Author Organization [facility] Address [address] [place] [address] Care Team Providers Care Program Management Professional Name Role Phone Marie Dixon MD Primary Care Provider [phone] Reason for Visit * Reason Onset Date Comments Other 01/07/2015 questions about breast asymmetry sx Encounter Details Date Type Department Care Team (Late st Contact Info) Description 01/07/2015 Telephone [facility] - [address], [address] [place] [address] Sid Lei MD [address] [place] [phone] Other (questions about breast asymmetry sx) [...] Telephone Encounter - Nan Martins - 01/07/2015 3087 EDT Patient wants to know if she can have both breasts implanted? If not she is leaning toward Lt breast implant, RT breast lifted. documented in this encounter Plan of Treatment Not on file documented as of this encounter Visit Diagnoses Not on filedocumented in this encounter Care Teams Program Management Professional Relationship Specialty Start Date End Date Marie Dixon MD [address] [place] [phone] PCP - General 12/27/14 09/26/17 documented as of this encounter
--- OUTSIDE RECORDS SUMMARY | 2024-06-14 17:13 | XMS_ITS | Encounter Summary ---
Author Organization [facility] Address [address] [place] [address] Care Team Providers Care Interpretive Program Coordinator Name Role Phone Lidia Benson REGISTRATION MANAGER Primary Care Provider [phone] Adelina Baca REGISTRATION MANAGER Primary Care Provider [phone] Antoni Ohara DO Primary Care Provider [phone] Encounter Details Date Type Department Care Team (Late st Contact Info) Description 06/24/2020 Lab Requisition [facility] Pathology & Laboratory Medicine - [facility] [address] [place], [place] [address] Outr Resulting Lab, Provider Social History Tobacco [...] 6 See Note ug/dL 06/24/2020 21:43 EDT [facility] Comment: NOTE: Reference Ranges (from OCD IFU): Collected Before 10:00 AM: ??4 - 23 ug/dL Collected After 5:00 PM: ?2 - 14 ug/dL The results of this assay can be falsely elevated due to the consumption of Biotin. Blood VENOUS BLOOD / Unknown 06/24/2020 11:54 EDT 06/24/2020 21:00 EDT Provider Outr Resulting Lab CHEMISTRY & BLOOD GAS ORDERABLES [facility] [address] [place] [address] documented in this encounter Visit Diagnoses Not on filedocumented in this encounter Care Teams Interpretive Program Coordinator Relationship Specialty Start Date End Date Lidia Benson NP [address] [place] [address] PCP - General 09/27/17 03/29/22 Adelina Baca NP [address] [place], [place] [address] PCP - General Family Medicine - Primary Care 03/30/22 05/08/24 Antoni Ohara DO [address] [place] [address] PCP - General Family Medicine - Primary Care 05/09/24 documented as of this encounter
--- OUTSIDE RECORDS SUMMARY | 2024-06-14 17:13 | XMS_ITS | Encounter Summary ---
Author Organization [facility] Address [address] [place] [address] Care Team Providers Care Jewelry Sales Associate Name Role Phone Antoni Ohara DO Primary Care Provider [phone] Reason for Visit * Reason Comments New Patient Visit Left breast smaller than the right breast * Referral (Routine) - Receiving Office to Obtain Authorization Specialty Diagnoses / Procedures Referred By Mateusz ibarra Referred To Contact Plastic Surgery Diagnoses Congenital malformation, unspecified Antoni Ohara DO [address] [place] [address] [facility] [address] [place] [address] Referral ID Status Reason Start Date Expiration Date Visits Requested Visits Authorized [id number] Receiving Office to Obtain Authorization 1 1 Encounter Details Date Type Department Care Team (Late st Contact Info) Description 05/09/2024 14:30 EDT Office Visit [facility] Plastic, Reconstructive & Cosmetic Surgery - [address], [address] [address] Sid Lei MD [address] [address] Social History Tobacco Use Types [...] daily. added in this encounter Care Teams Jewelry Sales Associate Relationship Specialty Start Date End Date Antoni Ohara DO [address] [place] [address] PCP - General Family Medicine - Primary Care 05/09/24 documented as of this encounter
--- OUTSIDE RECORDS SUMMARY | 2024-06-14 17:13 | XMS_ITS | Encounter Summary ---
Author Organization [facility] Address [address] [place] [address] Care Team Providers Care Cost Coordinator Name Role Phone Lidia Benson BUILDING SUPERINTENDENT Primary Care Provider [phone] Adelina Baca BUILDING SUPERINTENDENT Primary Care Provider [phone] Antoni Ohara DO Primary Care Provider [phone] Encounter Details Date Type Department Care Team (Late st Contact Info) Description 10/06/2021 Lab Requisition [facility] Pathology & Laboratory Medicine - [facility] [address] [place], [place] [address] Outr Resulting Lab, Provider Social History Tobacco [...] 14:00 EST) Hold Hold 10/06/2021 17:01 EST [facility] Blood VENOUS BLOOD / Unknown 10/05/2021 14:00 EST 10/06/2021 15:48 EST Provider Outr Resulting Lab LAB INFO SER VICE AND SUPPORT & PHONE RESULT Performing Organization Address [facility] Co de Phone Number [facility] [address] [place] [address] * LH (10/05/2021 14:00 EST) [facility] Luteinizing Hormone 12.0 See Note mIU/mL 10/07/2021 14:27 EST [facility] Comment: NOTE: Female Reference [...] & BLOOD GAS ORDERABLES Performing Organization Address [facility]/ZIP Co de Phone Number [facility] [address] [place] [address] * FSH (10/05/2021 14:00 EST) FSH 5.6 See Note mIU/mL 10/07/2021 14:27 EST [facility] Blood VENOUS BLOOD / Unknown 10/05/2021 14:00 EST 10/06/2021 15:47 EST Narrative [facility] - 10/07/2021 14:27 EST [...] & BLOOD GAS ORDERABLES Performing Organization Address City/State/[facility] Co de Phone Number [facility] [address] [place] [address] * PROLACTIN (10/05/2021 14:00 EST) Prolactin 4.8 See Table ng/mL 10/07/2021 14:27 EST [facility] Comment: NOTE: Female Reference [...] & BLOOD GAS ORDERABLES Performing Organization Address City/State/[facility] Co de Phone Number [facility] [address] [place] [address] documented in this encounter Visit Diagnoses Not on filedocumented in this encounter Care Teams Cost Coordinator Relationship Specialty Start Date End Date Lidia Benson NP [address] [place] [address] PCP - General 09/27/17 03/29/22 Adelina Baca NP [address] [place] [address] PCP - General Family Medicine - Primary Care 03/30/22 05/08/24 Antoni Ohara DO [address] [place] [address] PCP - General Family Medicine - Primary Care 05/09/24 documented as of this encounter
--- OUTSIDE RECORDS SUMMARY | 2024-06-14 17:13 | XMS_ITS | Encounter Summary ---
Author Organization [facility] Address [address] [place] [address] Care Team Providers Care Tie Presser Name Role Phone Lidia Benson BOATSWAIN'S MATE Primary Care Provider [phone] Adelina Baca [employer]WA[employer] MATE Primary Care Provider [phone] Antoni Ohara DO Primary Care Provider [phone] Encounter Details Date Type Department Care Team (Late st Contact Info) Description 02/12/2020 Lab Requisition [facility] Pathology & Laboratory Medicine - [facility] [address] [place], [place] [address] Outr Resulting Lab, Provider Social History Tobacco [...] gonorrhoeae Result Negative Negative 02/13/2020 16:10 EDT [facility] Chlamydia trachomatis Result Negative Negative 02/13/2020 16:10 EDT [facility] Swab ENTIRE WALL OF CERVIX / Unknown 02/12/2020 14:45 EDT 02/12/2020 20:57 EDT Provider Outr Resulting Lab MICROBIOLOGY - GENERAL ORDERABLES Performing Organization Address City/State/[facility] Co de Phone Number [facility] [address] [place] [address] documented in this encounter Visit Diagnoses Not on filedocumented in this encounter Care Teams Tie Presser Relationship Specialty Start Date End Date Lidia Benson NP [address] [place] [address] PCP - General 09/27/17 03/29/22 Adelina Baca NP [address] [place] [address] PCP - General Family Medicine - Primary Care 03/30/22 05/08/24 Antoni Ohara DO [address] [place] [id number] PCP - General Family Medicine - Primary Care 05/09/24 documented as of this encounter
--- OUTSIDE RECORDS SUMMARY | 2024-06-14 17:13 | XMS_ITS | Encounter Summary ---
Author Organization [facility] Address [address] [place] [address] Care Team Providers Care Program Evaluator Name Role Phone Lidia Benson MAIL MANAGER Primary Care Provider [phone] Adelina Baca MAIL MANAGER Primary Care Provider [phone] Antoni Ohara DO Primary Care Provider [phone] Encounter Details Date Type Department Care Team (Late st Contact Info) Description 11/08/[address] [facility] Pathology & Laboratory Medicine - [address] [address] Unknown, Provider, Social History Tobacco Use Types [...] 12:40 EST) Hold Hold 11/08/2019 22:01 EST [facility] Blood VENOUS BLOOD / Unknown 11/08/2019 12:40 EST 11/08/2019 20:59 EST Provider Unknown LAB INFO SERVICE AND SUPPORT & PHONE RESULT Performing Organization Address [facility]/ZIP Co de Phone Number [facility] [address] [place] [address] * SEX HORMONE BINDING GLOBULIN (11/08/2019 12:40 EST) Sex Hormone Bnd Glob 8.9 See Note nmol/L 11/09/2019 10:09 EST [facility] Comment: NOTE: ---- Reference Ranges for Females Pre-Menopausal: ?>10.8 nmol/L Post-Menopausal: ?? 23.2 - 159.1 nmol/L Reference ranges for Sex Hormone Binding Globulin in female patients <21 years old have not been established. Blood VENOUS BLOOD / Unknown 11/08/2019 12:40 EST 11/08/2019 20:59 EST Narrative [facility] - 11/09/2019 10:09 EST The results of this assay can be falsely lowered due to the consumption of Biotin. Provider Unknown CHEMISTRY & BLOOD GA S ORDERABLES Performing Organization Address [facility] Co de Phone Number [facility] [address] [place] [address] * DHEA SULFATE (11/08/2019 12:40 EST) DHEA Sulfate 186 75 - 410 ug/dL 11/09/2019 8:46 EST [facility] Blood VENOUS BLOOD / Unknown 11/08/2019 12:40 EST 11/08/2019 20:59 EST Provider Unknown CHEMISTRY & BLOOD GA S ORDERABLES Performing Organization Address [facility] Co de Phone Number [facility] [address] [place] [address] documented in this encounter Visit Diagnoses Not on filedocumented in this encounter Care Teams Program Evaluator Relationship Specialty Start Date End Date Lidia Benson NP [address] [place] [address] PCP - General 09/27/17 03/29/22 Adelina Baca NP [address] [place] [address] PCP - General Family Medicine - Primary Care 03/30/22 05/08/24 Antoni Ohara DO [address] [place] [address] PCP - General Family Medicine - Primary Care 05/09/24 documented as of this encounter
--- OUTSIDE RECORDS SUMMARY | 2024-06-14 17:13 | XMS_ITS | Encounter Summary ---
Author Organization [facility] Pooja [place] [address] Care Team Providers Care Medical Record Assistant Name Role Phone None Primary Care Provider Unavailabl e Reason for Visit * Reason Comments Psychiatric Evaluation Encounter Details Date Type Department Care Team (Late st Contact Info) Description 12/09/2016 3:45 AM EDT - 12/09/2016 6:19 AM EDT Emergency Emergency Department [facility] [place] [address] Tayla Antonio MD [place] [address] Paranoid schizophrenia Discharge Disposition: Psych Hospital/Distinct Part [...] Screen, Urine (12/09/2016 6:00 AM EDT) Pathologist [facility] Marijuana Metabolites Screen None Detected None Detected [facility] Comment: The marijuana metabolites screen detects the THC Metabolite (86-mtr-3-carboxy-delta 9-THC) at concentrations >50 ng/mL. Qualitative Drug screens are reported as ? None Detected? or ? Presumptive Positive? as the results are not routinely confirmed by highly-specific methods. As with any screen occasional false positive results from cross-reacting substances can occur. Not for Medico-Legal Purposes. Phencyclidine Screen, Urine None Detected None Detected [facility] Comment: The phencyclidine screen detects phencyclidine at concentrations >25 ng/mL. Qualitative Drug screens are reported as ? None Detected? or ? Presumptive Positive? as the results are not routinely confirmed by highly-specific methods. As with any screen occasional false positive results from cross-reacting substances can occur. Not for Medico-Legal Purposes. [place] Cocaine Metabolites Screen None Detected None Detected [facility] Comment: The cocaine metabolites screen detects benzoylecgonine (Cocaine Metabolite) at concentrations >150 ng/mL. Qualitative Drug screens are reported as ? None Detected? or ? Presumptive Positive? as the results are not routinely confirmed by highly-specific methods. As with any screen occasional false positive results from cross-reacting substances can occur. Not for Medico-Legal Purposes. Methamphetamines Screen, Urine None Detected None Detected [facility] Comment: The methamphetamine screen detects d-methamphetamine at concentrations >500 ng/mL. Qualitative Drug screens are reported as ? None Detected? or ? Presumptive Positive? as the results are not routinely confirmed by highly-specific methods. As with any screen occasional false positive results from cross-reacting substances can occur. Not for Medico-Legal Purposes. [place] Opiates Screen None Detected None Detected [facility] Comment: The opiates screen [...] [place] Amphetamines Screen None Detected None Detected [facility] Comment: The amphetamine screen detects d-amphetamine at concentrations >500 ng/mL. Qualitative Drug screens are reported as ? None Detected? or ? Presumptive Positive? as the results are not routinely confirmed by highly-specific methods. As with any screen occasional false positive results from cross-reacting substances can occur. Not for Medico-Legal Purposes. [place] Benzodiazepines Screen None Detected None Detected [facility] Comment: The benzodiazepines screen [...] [place] Tricyclics Screen None Detected None Detected [facility] Comment: The tricyclics screen [...] [place] Methadone Screen None Detected None Detected [facility] Comment: The methadone screen detects methadone at concentrations >200 ng/mL. Qualitative Drug screens are reported as ? None Detected? or ? Presumptive Positive? as the results are not routinely confirmed by highly-specific methods. As with any screen occasional false positive results from cross-reacting substances can occur. Not for Medico-Legal Purposes. [place] Barbiturates Screen None Detected None Detected [facility] Comment: The barbiturates screen [...] [place] Oxycodone Srceen None Detected None Detected [facility] Comment: The oxycodone screen [...] Propoxyphene Screen, Urine None Detected None Detected [facility] Comment: The propoxyphene screen detects propoxyphene at concentrations >300 ng/mL. Qualitative Drug screens are reported as ? None Detected? or ? Presumptive Positive? as the results are not routinely confirmed by highly-specific methods. As with any screen occasional false positive results from cross-reacting substances can occur. Not for Medico-Legal Purposes. [place] Buprenorphine Screen None Detected None Detected [facility] Comment: The buprenorphine screen detects buprenorphine at concentrations >10 ng/mL. Qualitative Drug screens are reported as ? None Detected? or ? Presumptive Positive? as the results are not routinely confirmed by highly-specific methods. As with any screen occasional false positive results from cross-reacting substances can occur. Not for Medico-Legal Purposes. [place] Adulterants Screen None Detected None Detected [facility] Comment: No adulteration or [...] Antonio MD URINE ORDERABLES Performing Organization Address City/[facility]/ZIP Co de Phone Number [facility] [place] [address] * Blue Tube HOLD (12/09/2016 4:48 AM EDT) Blue Hold Sample in lab. [facility] Blood specimen (specimen) Venous Draw / Unknown 12/09/2016 4:48 AM EDT 12/09/2016 4:55 AM EDT Tayla Antonio MD HEMATOLOGY ORDERABLE S Performing Organization Address City/[facility] Co de Phone Number [facility] [place] [address] * (ABNORMAL) Differential, Automated (12/09/2016 4:48 AM EDT) [facility] Neutrophil % 72.3 % [facility] Neutrophil Absolute 9.50(H) 1.70 - 6.10 x10(3)/mc L [facility] Lymph % 20.5 % [facility] Lymphocytes Abs 2.7 0.9 - 3.2 x10(3)/mc L [facility] Monocyte % 5.2 % [facility] Monocyte Abs 0.7 0.3 - 0.9 x10(3)/mc L [facility] Eos % 1.4 % [facility] Eosinophils Abs 0.2 0.0 - 0.4 x10(3)/mc L [facility] Basophil % 0.3 % [facility] Baso Absolute 0.0 0.0 - 0.1 x10(3)/mc L [facility] Immature Gran % 0.30 % [facility] Comment: Immature granulocytes(IG's)percentage and absolute count will include metamyelocytes, myelocytes, and promyelocytes. Blood smears from CBCs yielding IG's will be scanned manually for concordance. If this scan disagrees with the automated IG or if promyelocytes are noted, a manual differential will be performed. Immature Gran Absolute 0.04 0.00 - 0.04 x10(3)/mc L [facility] Blood specimen (specimen) 12/09/2016 4:48 AM EDT 12/09/2016 4:55 AM EDT Narrative Resulting Agency Comment Spec In Lab Tayla Antonio MD HEMATOLOGY ORDERABLE S [facility] [place] [address] * (ABNORMAL) Hemogram (12/09/2016 4:48 AM EDT) White Blood Cell 13.1(H) 4.0 - 9.5 x10(3)/mc L [facility] Red Blood Cell 4.53 4.00 - 5.21 x10(6)/mc L [facility] Hemoglobin 14.2 11.7 - 15.5 gm/dL [facility] Hematocrit 40.7 35.7 - 45.8 % [facility] Mean Cell Volume 89.8 82.6 - 94.4 fL [facility] Mean Cell Hemoglobin 31.3 27.1 - 32.0 pg [facility] Mean Cell Hemoglobin Concentration 34.9 31.7 - 35.0 gm/dL [facility] Platelet 366(H) 145 - 357 x10(3)/mc L [facility] RDW Standard Deviation 43.1 37.0 - 46.0 fL [facility] RDW coefficient of variation 13.1 11.5 - 14.1 % [facility] Mean Platelet Volume 9.4 7.6 - 12.9 fL [facility] NRBC% auto 0.0 % [facility] NRBC Absolute 0.000 0.000 - 0.000 x10(3)/mc L [facility] Blood specimen (specimen) 12/09/2016 4:48 AM EDT 12/09/2016 4:55 AM EDT Narrative Resulting Agency Comment Spec In Lab Tayla Antonio MD HEMATOLOGY ORDERABLE S [facility] [place] [place] [address] * T3, free (12/09/2016 4:15 AM EDT) Free T3 3.0 2.0 - 4.4 pg/mL [facility] Blood specimen (specimen) Venous Draw / Unknown 12/09/2016 4:15 AM EDT 12/09/2016 4:31 AM EDT Narrative Resulting Agency Comment Spec In Lab Tayla Antonio MD CHEMISTRY ORDERABLES Performing Organization Address City/[facility]/ZIP Co de Phone Number [facility] [place] [address] * T4, free (12/09/2016 4:15 AM EDT) Free T4 1.29 0.93 - 1.70 ng/dL [facility] Blood specimen (specimen) Venous Draw / Unknown 12/09/2016 4:15 AM EDT 12/09/2016 4:31 AM EDT Narrative Resulting Agency Comment Spec In Lab Tayla Antonio MD CHEMISTRY ORDERABLES Performing Organization Address City/[facility]/ZIP Co de Phone Number [facility] [place] [address] * TSH (12/09/2016 4:15 AM EDT) Thyroid Stimulating Hormone 2.05 0.27 - 4.20 mcIU/mL [facility] Blood specimen (specimen) Venous Draw / Unknown 12/09/2016 4:15 AM EDT 12/09/2016 4:31 AM EDT Narrative Resulting Agency Comment Spec In Lab Tayla Antonio MD CHEMISTRY ORDERABLES Performing Organization Address City/[facility]/ZIP Co de Phone Number [facility] [place] [address] * Salicylate (12/09/2016 4:15 AM EDT) Salicylate <20 mg/L [facility] Comment: Results rechecked by pmh [...] Antonio MD CHEMISTRY ORDERABLES Performing Organization Address [facility] Co de Phone Number [facility] [place] [address] * Acetaminophen level (12/09/2016 4:15 AM EDT) Acetamin Lvl <5 10 - 30 mg/L [facility] Comment: Results rechecked by pmh Levels >150 mg/L at 4 hours post ingestion or >75 mg/L at 8 hours post ingestion are often an indication for N-Acetylcysteine. Blood specimen (specimen) Venous Draw / Unknown 12/09/2016 4:15 AM EDT 12/09/2016 4:26 AM EDT Narrative Resulting Agency Comment Spec In Lab Tayla Antonio MD CHEMISTRY ORDERABLES Performing Organization Address City/[facility]/ZIP Co de Phone Number [facility] [place] [address] * (ABNORMAL) Comprehensive metabolic panel (non-fasting) (12/09/2016 4:15 AM EDT) Glucose 157 65 - 199 mg/dL [facility] Comment:Diabetes: >=200 mg/d L plus symptoms Blood Urea Nitrogen 11 8 - 18 mg/dL [facility] Creatinine 0.72 0.70 - 1.20 mg/dL [facility] Comment: Please note that the pediatric reference intervals supplied above were not validated at [facility]. Results from pediatric patients should be interpreted in conjunction to the patient's age, height and muscle mass. Sodium 143 135 - 145 mmol/L [facility] Potassium 3.7 3.5 - 5.0 mmol/L [facility] Comment: Please note: ??Patients with WBC >100,000 may have falsely elevated Potassium levels. ??For accurate Potassium quantification in these patients send serum separator tube (gold top) for subsequent determinations. ??Contact the Clinical Chemistry Laboratory if there are any questions. Chloride 102 98 - 107 mmol/L [facility] Carbon Dioxide 22 22 - 31 mmol/L [facility] Anion Gap 19(H) 5 - 15 mmol/L [facility] Calcium 9.7 8.5 - 10.5 mg/dL [facility] Protein, Total 7.2 6.1 - 8.0 gm/dL [facility] Albumin 4.2 3.2 - 5.2 gm/dL [facility] Aspartate Aminotransferase 33(H) 0 - 30 unit/L [facility] Alanine Aminotransferase 55(H) 0 - 30 unit/L [facility] Alkaline Phosphatase 142(H) 40 - 104 unit/L [facility] Bilirubin, Total <0.2(L) 0.2 - 1.3 mg/dL [facility] Bilirubin, Direct <0.1 0.0 - 0.3 mg/dL [facility] Est Glomerular Filtration Rate >60 >=60 [facility] [...] the following links into your internet browser. [email or web address] Blood specimen (specimen) Venous Draw / Unknown 12/09/2016 4:15 AM EDT 12/09/2016 4:31 AM EDT Narrative Resulting Agency Comment Spec In Lab Tayla Antonio MD CHEMISTRY ORDERABLES Performing Organization Address [facility] Co de Phone Number [facility] [place] [place] [address] * Green Tube HOLD (12/09/2016 4:15 AM EDT) Green Hold Sample in lab. [facility] Blood specimen (specimen) Venous Draw / Unknown 12/09/2016 4:15 AM EDT 12/09/2016 4:29 AM EDT Tayla Antonio MD CHEMISTRY ORDERABLES Performing Organization Address [facility] de Phone Number [facility] [place] [address] * Valproic Acid Level, Total (12/09/2016 4:15 AM EDT) Valproic Acid <3 [facility] Comment: Results rechecked by [facility] Therapeutic Range: Anticonvulsant Therapy: ??50-100 mg/L Manic Episodes Associated with Bipolar Disorder: ??50-125 mg/L Blood specimen (specimen) 12/09/2016 4:15 AM EDT 12/09/2016 4:26 AM EDT Narrative Resulting Agency Comment Spec In Lab Tayla Antonio MD CHEMISTRY ORDERABLES Performing Organization Address City/[facility] Co de Phone Number [facility] [place] [address] * Ethanol Level (12/09/2016 4:15 AM EDT) Ethanol <100 mg/L [facility] Comment: Greater than 800 mg/L (0.08%) should be considered intoxicated. 3400 to 4500 mg/L (0.34 - 0.45%) is considered severe intoxication. Greater than 5500 mg/L (0.55%) is usually fatal. Blood specimen (specimen) 12/09/2016 4:15 AM EDT 12/09/2016 4:26 AM EDT Narrative Resulting Agency Comment Spec In Lab Tayla Antonio MD CHEMISTRY ORDERABLES [facility] [place] [address] documented in this encounter Visit Diagnoses Diagnosis [...] RN) documented in this encounter Care Teams Medical Record Assistant Relationship Specialty Start Date End Date None None PCP - General 12/09/16 02/27/18 documented as of this encounter
--- OUTSIDE RECORDS SUMMARY | 2024-06-14 17:13 | XMS_ITS | Encounter Summary ---
Author Organization [facility] Address [address] [place] [address] Care Team Providers Care Director Life Sciences Name Role Phone Lidia Benson NP Primary Care Provider [phone] Reason for Referral * Surgery (Routine) - Closed Specialty Diagnoses / Procedures [facility] Referred To Contact Plastic Surgery Diagnoses Ruptured left breast implant, sequela Breast asymmetry Procedures [place] REDUCTION OF LARGE BREAST [place] REMOVAL OF IMPLANT MATERIAL Sid Lei MD [address] [address] Sid Lei MD [address] [address] Referral ID Status Reason Start Date Expiration Date V isits Requested Visits Authorized [id number] Closed Specialty Services Required 11/06/2017 1 0 Question Answer Reason for Request: left implant remval, right breast reduction for matching Scheduled Surgery Date: 11/06/2017 Laterality: Bilateral Location of Procedure: Main [place] [facility]/ Outpt Anesthesia: General Estimated Length of Procedure: 4h CPT Code: 12418, 1933 Reason for Visit * Reason Comments Follow-up Implant on left side - discuss removal Encounter Details Date Type Department Care Team (Late st Contact Info) Description 10/19/2017 10:15 EST Office Visit [facility] Plastic, Reconstructive & Cosmetic Surgery - [address], [address] [place] [address] Sid Lei MD [facility] [address] [facility] [address] [place] [address] Breast asymmetry (Primary Dx); Ruptured [...] documented as of this encounter Care Teams Director Life Sciences Relationship Specialty Start Date End Date Lidia Benson NP [address] [place] [address] PCP - General 09/27/17 03/29/22 documented as of this encounter
--- OUTSIDE RECORDS SUMMARY | 2024-06-14 17:13 | XMS_ITS | Encounter Summary ---
Author Organization [facility] Address [address] [place] [address] Care Team Providers Care [employer] Name Role Phone Marie Dixon MD Primary Care Provider [phone] Reason for Visit * Reason Onset Date Comments Other 01/15/2015 Encounter Details Date Type Department Care Team (Late st Contact Info) Description 01/15/2015 Telephone [facility] Plastic, Reconstructive & Cosmetic Surgery - [address], [address] [place], [place] [id number] Sid Lei MD [address] [address] Other Social History Tobacco Use [...] on filedocumented in this encounter Care Teams [employer] Relationship Specialty Start Date End Date Marie Dixon MD [address] [place] [phone] PCP - General 12/27/14 09/26/17 documented as of this encounter
--- OUTSIDE RECORDS SUMMARY | 2024-06-14 17:13 | XMS_ITS | Encounter Summary ---
Author Organization [facility] Address [address] [place] [address] Care Team Providers Care Electronics Processing Supervisor Name Role Phone Lidia Benson METEOROLOGIST IN CHARGE Primary Care Provider [phone] Adelina Baca METEOROLOGIST IN CHARGE Primary Care Provider [phone] Antoni Ohara DO Primary Care Provider [phone] Encounter Details Date Type Department Care Team (Late st Contact Info) Description 05/02/2020 Lab Requisition [facility] Pathology & Laboratory Medicine - [facility] [address] [place], [place] [address] Outr Resulting Lab, Provider Social History Tobacco [...] gonorrhoeae Result Negative Negative 05/05/2020 13:40 EDT [facility] Chlamydia trachomatis Result Negative Negative 05/05/2020 13:40 EDT [facility] Urine URINE / Unknown 05/02/2020 1 5:35 EDT 05/04/2020 16:51 EDT Narrative [facility] - 05/05/2020 13:40 EDT A first catch urine specimen is acceptable for detection of Gonorrhea and Chlamydia, but might detect up to 10% fewer infections when compared with vaginal and endocervical swab samples. Provider Outr Resulting Lab MICROBIOLOGY - GENERAL ORDERABLES [facility] [address] [place] [address] documented in this encounter Visit Diagnoses Not on filedocumented in this encounter Care Teams Electronics Processing Supervisor Relationship Specialty Start Date End Date Lidia Benson NP [address] [place] [address] PCP - General 09/27/17 03/29/22 Adelina Baca NP [address] [place] [address] PCP - General Family Medicine - Primary Care 03/30/22 05/08/24 Antoni Ohara DO [address] [place] [address] PCP - General Family Medicine - Primary Care 05/09/24 documented as of this encounter
--- OUTSIDE RECORDS SUMMARY | 2024-06-14 17:13 | XMS_ITS | Encounter Summary ---
Author Organization [facility] Address [address] [place] [address] Care Team Providers Care Lens Grinding Machine Operator Name Role Phone Lidia Benson MATTRESS RENOVATOR Primary Care Provider [phone] Adelina Baca MATTRESS RENOVATOR Primary Care Provider [phone] Antoni Ohara DO Primary Care Provider [phone] Encounter Details Date Type Department Care Team (Late st Contact Info) Description 12/02/2019 Lab Requisition [facility] Pathology & Laboratory Medicine - [address] [address] Unknown, Provider, Social History Tobacco Use Types [...] 11.4 See Note nmol/L 12/03/2019 10:17 EDT [facility] Comment: NOTE: ---- Reference Ranges for Females Pre-Menopausal: ?>10.8 nmol/L Post-Menopausal: ?? 23.2 - 159.1 nmol/L Reference ranges for Sex Hormone Binding Globulin in female patients <21 years old have not been established. Blood VENOUS BLOOD / Unknown 12/01/2019 9:25 EDT 12/02/2019 15:58 EDT Narrative [facility] - 12/03/2019 10:17 EDT The results of this assay can be falsely lowered due to the consumption of Biotin. Provider Unknown CHEMISTRY & BLOOD GA S ORDERABLES Performing Organization Address City/State/[facility] Co de Phone Number [facility] [address] [place] [address] documented in this encounter Visit Diagnoses Not on filedocumented in this encounter Care Teams Lens Grinding Machine Operator Relationship Specialty Start Date End Date Lidia Benson NP [address] [place] [address] PCP - General 09/27/17 03/29/22 Adelina Baca NP [address] [place] [address] PCP - General Family Medicine - Primary Care 03/30/22 05/08/24 Antoni Ohara DO [address] [place] [id number] PCP - General Family Medicine - Primary Care 05/09/24 documented as of this encounter
--- OUTSIDE RECORDS SUMMARY | 2024-06-14 17:13 | XMS_ITS | Encounter Summary ---
Author Organization [facility] Address [address] [place] [address] Care Team Providers Care Sample Case Porter Name Role Phone Antoni Ohara DO Primary Care Provider [phone] Reason for Visit * Reason Onset Date Comments Surgery Scheduling 06/13/2024 Encounter Details Date Type Department Care Team (Late st Contact Info) Description 06/13/2024 Telephone [facility] Plastic, Reconstructive & Cosmetic Surgery - [address], [address] [place] [address] Sid Lei MD [address] [place] [phone] Surgery Scheduling Social History Tobacco Use Types Packs/Day Years [...] encounter Miscellaneous Notes * Telephone Encounter - Gabriela Alvarez - 06/13/2024 1008 EDT Patient states they cannot find the forms Dr Lei provided to her. Asked patient if she requires a new ASPS form, patient states she does not remember what the forms are.. Asking for new forms to be sent to her email. Email provided: Patient is also asking about her PCP giving permission for surgery and how to go about that.. Asked patient if she meant a History and Physical that is due within 30 days of her surgery date, patient replied No, permission for surgery documented in this encounter Plan of Treatment Not on file documented as of this encounter Visit Diagnoses Not on filedocumented in this encounter Care Teams Sample Case Porter Relationship Specialty Start Date End Date Antoni Ohara DO [address] [place] [address] PCP - General Family Medicine - Primary Care 05/09/24 documented as of this encounter
--- OUTSIDE RECORDS SUMMARY | 2024-06-14 17:13 | XMS_ITS | Encounter Summary ---
Author Organization [facility] Address [address] [place] [address] Care Team Providers Care Hull Outfit Supervisor Name Role Phone Lidia Benson CHIEF CONTROLLER STATION Primary Care Provider [phone] Adelina Baca CHIEF CONTROLLER STATION Primary Care Provider [phone] Antoni Ohara DO Primary Care Provider [phone] Encounter Details Date Type Department Care Team (Late st Contact Info) Description 01/07/2021 Lab Requisition [facility] Pathology & Laboratory Medicine - [facility] [address] [place], [place] [address] Outr Resulting Lab, Provider Social History Tobacco [...] 2.8 - 5.3 pg/mL 01/07/2021 16:45 EDT [facility] Blood VENOUS BLOOD / Unknown 01/07/2021 10:00 EDT 01/07/2021 16:01 EDT Provider Outr Resulting Lab CHEMISTRY & BLOOD GAS ORDERABLES [facility] [address] [place] [address] documented in this encounter Visit Diagnoses Not on filedocumented in this encounter Care Teams Hull Outfit Supervisor Relationship Specialty Start Date End Date Lidia Benson NP [address] [place] [address] PCP - General 09/27/17 03/29/22 Adelina Baca NP [address] [place] [address] PCP - General Family Medicine - Primary Care 03/30/22 05/08/24 Antoni Ohara DO [address] [place] [phone] PCP - General Family Medicine - Primary Care 05/09/24 documented as of this encounter
--- OUTSIDE RECORDS SUMMARY | 2024-06-14 17:13 | XMS_ITS | Encounter Summary ---
Author Organization [facility] Address [address] [place] [address] Care Team Providers Care Ethnology Teacher Name Role Phone Lidia Benson WASHCOAT WIPER Primary Care Provider Adelina Baca WASHCOAT WIPER Primary Care Provider [phone] Antoni Ohara DO Primary Care Provider [phone] Encounter Details Date Type Department Care Team (Late st Contact Info) Description 01/07/2021 Lab Requisition [facility] Pathology & Laboratory Medicine - [facility] [address] [place], [place] [address] Outr Resulting Lab, Provider Social History Tobacco [...] Results * LH (01/07/2021 10:00 EDT) Pathologist [facility] Luteinizing Hormone 10.9 See Note mIU/mL 01/07/2021 17:45 EDT [facility] Comment: NOTE: Female Reference [...] Resulting Lab CHEMISTRY & BLOOD GAS ORDERABLES [facility] [address] [place] [address] * FSH (01/07/2021 10:00 EDT) [facility] FSH 4.9 See Note mIU/mL 01/07/2021 17:44 EDT [facility] Blood VENOUS BLOOD / Unknown 01/07/2021 10:00 EDT 01/07/2021 16:01 EDT Narrative [facility] - 01/07/2021 17:44 [...] Resulting Lab CHEMISTRY & BLOOD GAS ORDERABLES [facility] [address] [place] [address] * PROLACTIN (01/07/2021 10:00 EDT) [facility] Prolactin 7.5 See Table ng/mL 01/07/2021 17:45 EDT [facility] Comment: NOTE: Female Reference [...] & BLOOD GAS ORDERABLES Performing Organization Address City/[facility]/ZIP Co de Phone Number [facility] [address] [place] [address] * CORTISOL (01/07/2021 10:00 EDT) Cortisol 10 See Note ug/dL 01/07/2021 16:52 EDT [facility] Comment: NOTE: Reference Ranges [...] & BLOOD GAS ORDERABLES Performing Organization Address [facility] Co de Phone Number [facility] [address] [place] [address] documented in this encounter Visit Diagnoses Not on filedocumented in this encounter Care Teams Ethnology Teacher Relationship Specialty Start Date End Date Lidia Benson NP [address] [place] [address] PCP - General 09/27/17 03/29/22 Adelina Baca NP [address] [place] [address] PCP - General Family Medicine - Primary Care 03/30/22 05/08/24 Antoni Ohara [place] [address] PCP - General Family Medicine - Primary Care 05/09/24 documented as of this encounter
--- OUTSIDE RECORDS SUMMARY | 2024-06-14 17:13 | XMS_ITS | Encounter Summary ---
Author Organization [facility] Address [address] [place] [address] Care Team Providers Care Hay Chopper Name Role Phone Adelina Baca NP Primary Care Provider [phone] Antoni Ohara DO Primary Care Provider [phone] Encounter Details Date Type Department Care Team (Late st Contact Info) Description 05/19/2023 Lab Requisition [facility] Pathology & Laboratory Medicine - [facility] [address] [place], [place] [address] Outr Resulting Lab, Provider Social History Tobacco [...] 50 - 100 ug/mL 05/19/2023 18:26 EDT [facility] Blood VENOUS BLOOD / Unknown 05/19/2023 8:55 EDT 05/19/2023 17:50 EDT Provider Outr Resulting Lab CHEMISTRY & BLOOD GAS ORDERABLES [facility] [address] [place] [address] documented in this encounter Visit Diagnoses Not on filedocumented in this encounter Care Teams Hay Chopper Relationship Specialty Start Date End Date Adelina Baca, WEB OPERATIONS ADMINISTRATOR [address] [place] [address] PCP - General Family Medicine - Primary Care 03/30/22 05/08/24 Antoni Ohara DO [address] [place] [phone] PCP - General Family Medicine - Primary Care 05/09/24 documented as of this encounter
--- OUTSIDE RECORDS SUMMARY | 2024-06-14 17:13 | XMS_ITS | Encounter Summary ---
Author Organization [facility] Address [address] [place] [address] Care Team Providers Care Whizzer Name Role Phone Violetta Ponce ANNEALING TORCH OPERATOR Primary Care Provider [phone] Encounter Details Date Type Department Care Team (Late st Contact Info) Description 10/25/2013 Results Only [facility] Laboratory Services - [facility] ([facility] [address] [place], [place] [address] Violetta Ponce, ANNEALING TORCH OPERATOR [address] [facility] [address] [place] [address] Social History Tobacco Use Types [...] ? SHANEKA LANDON ? Accession #: ? [id number] ? : ? 1980 (Age: 33) ??F ?Collect Date: ? 10/25/2013 ? Location: ? [facility] ? Receive Date: ? 10/26/2013 ? Provider: VIOLETTA PONCE ANNEALING TORCH OPERATOR Copy to: ? Final Report SPECIMEN [...] types 16,18,31,33,35, 39,45,51,52,56,58, 59,66, and 68 by commissioning editor mediated amplification. Comments Document reviewed and electronically signed by: ? System Interface ? Report date: 11/07/2013 By the signature above, the attending physician certifies that he/she has personally conducted a gross and/or microscopic examination of the described specimens and rendered or confirmed the above diagnosis. End of Report CARLY[facility] BELLA 10/25/2013 10/26/2013 Violetta Ponce NP PATHOLOGY ORDERABLES Performing Organization Address City/State/[facility] Co de Phone Number [facility] [address] [place] [address] documented in this encounter Visit Diagnoses Not on filedocumented in this encounter Care Teams Whizzer Relationship Specialty Start Date End Date Violetta Ponce, ANNEALING TORCH OPERATOR [address] [place] [phone] PCP - General 09/09/11 12/26/14 documented as of this encounter
--- OUTSIDE RECORDS SUMMARY | 2024-06-14 17:13 | XMS_ITS | Encounter Summary ---
Author Organization [facility] Address [address] [place] [address] Care Team Providers Care Production Engineer Name Role Phone Unknown, Provider Primary Care Provider [phone] Encounter Details Date Type Department Care Team (Late st Contact Info) Description 09/08/2011 Results Only [facility] [phone] Sariah Pulliam, DO [address] [place] [address] Social History Tobacco Use Types [...] SARIAH PULLIAM DO Copy to: LORY JOHNS MORALE OFFICER ? Final Pathologic Diagnosis: ? Pilonidal cyst, [...] tissue with no discrete cavitary regions identified. ??Exhibit Cleaner sections are submitted as follows: BLOCK MENESES A1 ?Section of specimen with skin at fragmented deep tissue A2 ?Additional sections of specimen with skin with indwelling cystic cavitary area A3 ?Exhibit Cleaner sections of separate fragments of tissue (Jeanette Decker)/[facility] End of Report CARLYN BELLA 09/08/2011 09/08/2011 16: 13 EST Sariah Pulliam DO PATHOLOGY ORDERABLES [facility] [address] [place] [address] documented in this encounter Visit Diagnoses Not on filedocumented in this encounter Care Teams Production Engineer Relationship Specialty Start Date End Date Unknown, Provider, PCP - General 09/08/09 09/08/11 documented as of this encounter
--- OUTSIDE RECORDS SUMMARY | 2024-06-14 17:13 | XMS_ITS | Encounter Summary ---
Author Organization [facility] Address [address] [place] [address] Care Team Providers Care Compounder Helper Name Role Phone Antoni Ohara DO Primary Care Provider [phone] Reason for Visit * Reason Onset Date Comments Imaging 06/08/2024 Diagnostic Imaging Report 06/08/2024 Encounter Details Date Type Department Care Team (Late st Contact Info) Description 06/08/2024 Telephone [facility] Plastic, Reconstructive & Cosmetic Surgery - [address], [address] [place] [address] Sid Lei MD [address] [place] [phone] Imaging; Diagnostic Imaging Report Social History Tobacco Use Types Packs/Day Years [...] encounter Miscellaneous Notes * Telephone Encounter - Sid Zhang - 06/08/2024 1041 EDT Called Gabby who will send most recent CT Abdo/Chest * Telephone Encounter - Radha Gabriel - 06/08/2024 0853 EDT Gabby from [facility] stated she received a release from [facility] for imaging. She needs to know exactly whatimages as she is not going to send everything. She would like a call back today if possible before noon as she is leaving at noon. documented in this encounter Plan of Treatment Not on file documented as of this encounter Visit Diagnoses Not on filedocumented in this encounter Care Teams Compounder Helper Relationship Specialty Start Date End Date Antoni Ohara DO [address] [place] [address] PCP - General Family Medicine - Primary Care 05/09/24 documented as of this encounter
--- OUTSIDE RECORDS SUMMARY | 2024-06-14 17:13 | XMS_ITS | Encounter Summary ---
Author Organization [facility] Address [address] [place] [address] Care Team Providers Care Plodder Operator Name Role Phone Marie Dixon MD Primary Care Provider [phone] Reason for Visit * Reason Comments Breast Implant Problem left breast defla jenna. Encounter Details Date Type Department Care Team (Late st Contact Info) Description 01/01/2015 14:30 EDT Office Visit [facility] Plastic, Reconstructive & Cosmetic Surgery - [address], [address] [place] [phone] Sid Lei MD [address] [place] [phone] Breast asymmetry (Primary Dx) Social History [...] Notes * Sid Lei MD - 04/11/2015 8800 EDT Reason for Visit /HPI: Shaneka was [...] this patient; 55 minutes was spent in [id number] counseling for the abovediagnosis. Sid Lei MD 04/11/2015 18:57 documented in this encounter Plan of Treatment Not on file documented as of this encounter Visit Diagnoses Diagnosis Breast asymmetry- Primary Other specified disorders of breast documented in this encounter Care Teams Plodder Operator Relationship Specialty Start Date End Date Marie Dixon MD [address] [place] [phone] PCP - General 12/27/14 09/26/17 documented as of this encounter
--- OUTSIDE RECORDS SUMMARY | 2024-06-14 17:13 | XMS_ITS | Encounter Summary ---
Author Organization [facility] Address [address] [place] [address] Care Team Providers Care Log Processor Operator Name Role Phone Lidia Benson ROTARY DRIER FEEDER Primary Care Provider [phone] Adelina Baca ROTARY DRIER FEEDER Primary Care Provider [phone] Antoni Ohara DO Primary Care Provider [phone] Encounter Details Date Type Department Care Team (Late st Contact Info) Description 03/16/[address] [facility] Pathology & Laboratory Medicine - [facility] [address] [place], [place] [address] Outr Resulting Lab, Provider Social History Tobacco [...] Result Negative Negative 03/17/2022 14:54 EDT [facility] Chlamydia trachomatis Result Negative Negative 03/17/2022 14:54 EDT [facility] Urine URINE / Unknown 03/15/2022 1 5:15 EDT 03/16/2022 18:49 EDT Narrative [facility] - 03/17/2022 14:54 EDT A first catch urine specimen is acceptable for detection of Gonorrhea and Chlamydia, but might detect up to 10% fewer infections when compared with vaginal and endocervical swab samples. Provider Outr Resulting Lab MICROBIOLOGY - GENERAL ORDERABLES [facility] [address] [place] [address] documented in this encounter Visit Diagnoses Not on filedocumented in this encounter Care Teams Log Processor Operator Relationship Specialty Start Date End Date Lidia Benson NP [address] [place] [address] PCP - General 09/27/17 03/29/22 Adelina Baca NP [address] [place] [address] PCP - General Family Medicine - Primary Care 03/30/22 05/08/24 Antoni Ohara DO [address] [place] [address] PCP - General Family Medicine - Primary Care 05/09/24 documented as of this encounter
--- OUTSIDE RECORDS SUMMARY | 2024-06-14 17:13 | XMS_ITS | Encounter Summary ---
Author Organization [facility] [place] [address] Care Team Providers Care Gear And Spline Grinder Name Role Phone None Primary Care Provider Unavailabl e Reason for Visit * Reason Onset Date Comments Prior Authorization 12/10/2016 12/09/2016 I NPT PSYCH Encounter Details Date Type Department Care Team (Late st Contact Info) Description 12/10/2016 Telephone [facility] [place] [phone] Shaila Case MD [facility] [address] [place] [address] Prior Authorization (12/09/2016 INPT PSYCH) Social History [...] EDT PER [facility]: AUTH #[id number] FOR 12/09/2016 INPT PSYCH EFF. 12/09/2016 - 12/14/2016 WITH REVIEW NEEDED ON 12/14/2016 documented in this encounter Plan of Treatment Not on file documented as of this encounter Visit Diagnoses Not on filedocumented in this encounter Care Teams Gear And Spline Grinder Relationship Specialty Start Date End Date None None PCP - General 12/09/16 02/27/18 documented as of this encounter
--- OUTSIDE RECORDS SUMMARY | 2024-06-14 17:13 | XMS_ITS | Encounter Summary ---
Author Organization [facility] Address [address] [place] [address] Care Team Providers Care Informatics Application Analyst Name Role Phone Unavailable Primary Care Provider Unavailabl e Encounter Details Date Type Department Care Team (Late st Contact Info) Description 07/30/2009 Orders Only [facility] Laboratory Services - [facility] ([facility]) [address] [place], [place] [address] Violetta Ponce, NYA [address] [facility] 1 [place] [address] Social History Tobacco Use Types [...] GENER AL ORDERABLES [facility] [address] [place] [address] * CYTOPATHOLOGY (07/30/2009 0:00 EST) Pathology Report: CYTOPATHOLOGY REPORT ? Reports generated via electronic interface contain original data; ? however they are lacking the format of the original report. ? Caution should be taken when reading/interpreti ng unformatted reports. ? Name: ? SHANEKA LANDON ? Accession #: ? [id number] ? : ? 1980 (Age: 28) ??F ?Collect Date: ? 07/30/2009 ? Location: ? [facility] ? Receive Date: ? 08/05/2009 ? Provider: ?VIOLETTA W BESCH CRITICAL POWER TECHNICIAN ? Copy to: ? Specimen/Source: ?Pap Test, [...] significance (ASC-US). ? EDUCATIONAL NOTES/RECOMMENDATI ONS ? [facility] recommends following the 2006 Consensus Guidelines for the Management of Women with Abnormal Cervical Cancer Screening Tests (JLGTD, ? 2007;11(4):201-222 ). ??Consensus guidelines are available online at ? www.ASCCP.org. ? Document reviewed and electronically signed by: ? Brian Sid Edis, MD ? Report Date: ??08/11/2009 10:25 ? End of Report ? [facility] 07/30/2009 08/05/2009 Violetta Ponce CRITICAL POWER TECHNICIAN PATHOLOGY ORDERABLES [facility] [address] [place] [address] documented in this encounter Visit Diagnoses Not on filedocumented in this encounter
--- OUTSIDE RECORDS SUMMARY | 2024-06-14 17:13 | XMS_ITS | Encounter Summary ---
Author Organization [facility] Address [address] [place] [address] Care Team Providers Care Tie Buyer Name Role Phone Marie Dixon MD Primary Care Provider Reason for Visit * Reason Comments Breast Problem symmetry Encounter Details Date Type Department Care Team (Late st Contact Info) Description 07/25/2015 11:00 EST Office Visit [facility] Plastic, Reconstructive & Cosmetic Surgery - [address], [address] [place] [phone] Sid Lei MD [address] [place] [phone] Breast asymmetry (Primary Dx) Social History [...] Sid Lei MD - 08/10/2015 2029 EST hSaneka returns to discuss options for treatment following [...] this patient; 25 minutes was spent in slii-eg-eysu counseling for the abovediagnosis. documented in this [...] 10/17/2015 added in this encounter Care Teams Tie Buyer Relationship Specialty Start Date End Date Marie Dixon MD [address] [place] [phone] PCP - General 12/27/14 09/26/17 documented as of this encounter
--- OUTSIDE RECORDS SUMMARY | 2024-06-14 17:13 | XMS_ITS | Encounter Summary ---
Author Organization [facility] Address [address] [place] [address] Care Team Providers Care Flat Lock Machine Operator Name Role Phone Lidia Benson [employer] ADVISOR Primary Care Provider [phone] Adelina Baca [employer] ADVISOR Primary Care Provider [phone] Antoni Ohara DO Primary Care Provider [phone] Encounter Details Date Type Department Care Team (Late st Contact Info) Description 03/16/2022 Lab Requisition [facility] Pathology & Laboratory Medicine - [facility] [address] [place] [address] Syeda Bai MD [address] [place] [phone] Contact with and (suspected) exposure to [...] explore management options, if applicable. 03/19/2022 16:08 [facility] Final Diagnosis A. ENDOMETRIUM, BIOPSY: - Polypoid fragments proliferative endometrium with focally disordered growth pattern. 03/19/2022 16:08 [facility] Attestation There was significant resident/fellow involvement in the diagnostic evaluation of this case. By the signature below, the attending physician certifies that they have personally conducted a gross and/or microscopic examination of the described specimens and rendered or confirmed the above diagnosis. 03/19/2022 16:08 [facility] at 1608 Clinical History Uterine mass 03/19/2022 16:08 [facility] Gross Description A. Received in formalin labelled with proper patient identification (initials P, E) and endometrium is an aggregate of clotted blood in blood-tinged mucus admixed with red-brown tissue fragments and measuring 1.5 x 1.0 x 0.3 cm. Submitted entirely in A1. CECI DONOVAN(ASCP) 03/16/2022 19:04 03/19/2022 16:08 [facility] Resident/Tony w: Brit Mcneil DO 03/19/2022 16:08 [facility] Performing Lab [facility] 03/19/2022 16:08 [facility] Scanned Images 03/19/2022 16:08 [facility] Tissue ENTIRE ENDOMETRIUM / Unknown 03/15/2022 15:00 EDT 03/16/2022 16:51 EDT Syeda Bai MD PATHOLOGY ORDERABLES [facility] [address] [place] [address] documented in this encounter Visit Diagnoses Diagnosis Contact with and (suspected) exposure to infections with a predominantly sexual mode of transmission documented in this encounter Care Teams Flat Lock Machine Operator Relationship Specialty Start Date End Date Lidia Bneson NP [address] [place], [place] [phone] PCP - General 09/27/17 03/29/22 Adelina Baca NP [address] [place], [place] [phone] PCP - General Family Medicine - Primary Care 03/30/22 05/08/24 Antoni Ohara DO [address] [place] [phone] PCP - General Family Medicine - Primary Care 05/09/24 documented as of this encounter
--- OUTSIDE RECORDS SUMMARY | 2024-06-14 17:13 | XMS_ITS | Encounter Summary ---
Author Organization [facility] Address [address] [place] [address] Care Team Providers Care Mergers And Acquisitions Manager Name Role Phone Marie Dixon MD Primary Care Provider [phone] Reason for Visit * Reason Comments Pre-op Exam Encounter Details Date Type Department Care Team (Late st Contact Info) Description 10/17/2015 14:00 EST Office Visit [facility] Plastic, Reconstructive & Cosmetic Surgery - [address], [address] [place] [phone] Sid Lei MD [address] [place] [phone] Breast asymmetry (Primary Dx); Ruptured left [...] Notes * Sid Lei MD - 10/19/2015 5117 EST Shaneka returns to discuss options for [...] this patient; 20 minutes was spent in [id number] counseling for the abovediagnosis. documented in this [...] documented as of this encounter Care Teams Mergers And Acquisitions Manager Relationship Specialty Start Date End Date Marie Dixon MD [address] [place] [phone] PCP - General 12/27/14 09/26/17 documented as of this encounter
--- OUTSIDE RECORDS SUMMARY | 2024-06-14 17:13 | XMS_ITS | Encounter Summary ---
Author Organization [facility] Address [address] [place] [address] Care Team Providers Care Automation And Controls Instructor Name Role Phone Lidia Tinsley NP Primary Care Provider Encounter Details Date Type Department Care Team (Late st Contact Info) Description 02/22/2019 Results Only [facility] [phone] Lidia Tinsley NP [address] [place], [place] [id number] Social History Tobacco Use Types Packs/Day Years [...] ? SHANEKA LANDON ? Accession #: ? [id number] ? : ? 1980 (Age: 38) ??F ?Collect Date: ? 02/22/2019 ? Location: ? [facility] ? Receive Date: ? 02/23/2019 ? Provider: LIDIA TINSLEY LAW OFFICE ASSISTANT Copy to: ? Final Report SPECIMEN ADEQUACY [...] types 16,18,31,33,35, 39,45,51,52,56,58, 59,66, and 68 by senior oracle dba mediated amplification. Comments Document reviewed and electronically signed by: ? System Interface ? Report date: 02/27/2019 By the signature above, the attending physician certifies that he/she has personally conducted a gross and/or microscopic examination of the described specimens and rendered or confirmed the above diagnosis. End of Report [facility] 02/22/2019 02/23/2019 Lidia Tinsley NP PATHOLOGY ORDERABLES Performing Organization Address City/State/[facility] Co de Phone Number [facility] [address] [place] [address] documented in this encounter Visit Diagnoses Not on filedocumented in this encounter Care Teams Automation And Controls Instructor Relationship Specialty Start Date End Date Lidia Tins[place] [address] PCP - General 09/27/17 03/29/22 documented as of this encounter
--- OUTSIDE RECORDS SUMMARY | 2024-06-14 17:13 | XMS_ITS | Encounter Summary ---
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 The opiates screen detects [...] [place] Amphetamines Screen None Detected None Detected [facility] Comment: The amphetamine screen detects d-amphetamine at concentrations >500 ng/mL. Qualitative Drug screens are reported as ? None Detected? or ? Presumptive Positive? as the results are not routinely confirmed by highly-specific methods. As with any screen occasional false positive results from cross-reacting substances can occur. Not for Medico-Legal Purposes. [place] Benzodiazepines Screen None Detected None Detected [facility] Comment: The benzodiazepines screen detects [...] [place] Tricyclics Screen None Detected None Detected [facility] Comment: The tricyclics screen detects [...] [place] Methadone Screen None Detected None Detected [facility] Comment: The methadone screen detects methadone at concentrations >200 ng/mL. Qualitative Drug screens are reported as ? None Detected? or ? Presumptive Positive? as the results are not routinely confirmed by highly-specific methods. As with any screen occasional false positive results from cross-reacting substances can occur. Not for Medico-Legal Purposes. [place] Barbiturates Screen None Detected None Detected [facility] Comment: The barbiturates screen detects [...] [place] Oxycodone Srceen None Detected None Detected [facility] Comment: The oxycodone screen detects oxycodone at concentrations >100 ng/mL and oxymorphone >250 ng/ml. Qualitative Drug screens are reported as ? None Detected? or ? Presumptive Positive? as the results are not routinely confirmed by highly-specific methods. As with any screen occasional false positive results from cross-reacting substances can occur. Not for Medico-Legal Purposes. Propoxyphene Screen, Urine None Detected None Detected [facility] Comment: The propoxyphene screen detects propoxyphene at concentrations >300 ng/mL. Qualitative Drug screens are reported as ? None Detected? or ? Presumptive Positive? as the results are not routinely confirmed by highly-specific methods. As with any screen occasional false positive results from cross-reacting substances can occur. Not for Medico-Legal Purposes. [place] Buprenorphine Screen None Detected None Detected [facility] Comment: The buprenorphine screen detects buprenorphine at concentrations >10 ng/mL. Qualitative Drug screens are reported as ? None Detected? or ? Presumptive Positive? as the results are not routinely confirmed by highly-specific methods. As with any screen occasional false positive results from cross-reacting substances can occur. Not for Medico-Legal Purposes. [place] Adulterants Screen None Detected None Detected [facility] Comment: No adulteration or dilution of this urine sample was detected. All urine samples submitted for urine drugs of abuse analysis are tested for Creatinine and pH and for the presence of oxidants, nitrites, chromate and aldehydes (glutaraldehyde). Urine specimen (specimen) 02/19/2017 8:51 PM EDT 02/19/2017 9:01 PM EDT Narrative Resulting Agency Comment Spec In Lab Eva Lal MD URINE ORDERABLES [facility] [place] [address] * XR Chest PA or AP 1 [...] Recheck Status (02/19/2017 8:44 PM EDT) Pathologist [facility] Recheck Order Order Placed [facility] [place] Type Recheck Complete [facility] Blood specimen (specimen) 02/19/2017 8:44 PM EDT 02/19/2017 8:55 PM EDT Narrative Resulting Agency Comment Spec In Lab Eva Lal MD BLOOD BANK LAB ORDER MICHEL [facility] [place] [address] * (ABNORMAL) Differential, Automated (02/19/2017 8:44 PM EDT) Neutrophil % 65.7 % [facility] Neutrophil Absolute 10.73(H) 1.70 - 6.10 x10(3)/mc L [facility] Lymph % 27.2 % [facility] Lymphocytes Abs 4.4(H) 0.9 - 3.2 x10(3)/mc L [facility] Monocyte % 4.7 % [facility] Monocyte Abs 0.8 0.3 - 0.9 x10(3)/mc L [facility] Eos % 1.8 % [facility] Eosinophils Abs 0.3 0.0 - 0.4 x10(3)/[facility] Basophil % 0.2 % [facility] Baso Absolute 0.0 0.0 - 0.1 x10(3)/[facility] Immature Gran % 0.40 % [facility] Comment: Immature granulocytes(IG's)percentage and absolute count will include metamyelocytes, myelocytes, and promyelocytes. Blood smears from CBCs yielding IG's will be scanned manually for concordance. If this scan disagrees with the automated IG or if promyelocytes are noted, a manual differential will be performed. Immature Gran Absolute 0.07(H) 0.00 - 0.04 x10(3)/[facility] Blood specimen (specimen) 02/19/2017 8:44 PM EDT 02/19/2017 8:50 PM EDT Narrative Resulting Agency Comment Spec In Lab Eva Lal MD HEMATOLOGY ORDERABLE S [facility] [place] [address] * (ABNORMAL) Hemogram (02/19/2017 8:44 PM EDT) White Blood Cell 16.3(H) 4.0 - 9.5 x10(3)/[facility] Red Blood Cell 4.38 4.00 - 5.21 x10(6)/[facility] Hemoglobin 14.1 11.7 - 15.5 gm/dL [facility] Hematocrit 39.7 35.7 - 45.8 % [facility] Mean Cell Volume 90.6 82.6 - 94.4 fL [facility] Mean Cell Hemoglobin 32.2(H) 27.1 - 32.0 pg [facility] Mean Cell Hemoglobin Concentration 35.5(H) 31.7 - 35.0 gm/dL [facility] Platelet 412(H) 145 - 357 x10(3)/mc L [facility] RDW Standard Deviation 43.8 37.0 - 46.0 fL [facility] RDW coefficient of variation 13.2 11.5 - 14.1 % [facility] Mean Platelet Volume 9.5 7.6 - 12.9 fL [facility] NRBC% auto 0.0 % [facility] NRBC Absolute 0.000 0.000 - 0.000 x10(3)/mc L [facility] Blood specimen (specimen) 02/19/2017 8:44 PM EDT 02/19/2017 8:50 PM EDT Narrative Resulting Agency Comment Spec In Lab Eva Lal MD HEMATOLOGY ORDERABLE S Performing Organization Address [facility] Co de Phone Number [facility] [place] [address] * Antibody screen (02/19/2017 8:44 PM EDT) Ab Screen Interp Negative [facility] Expires at [id number] on: 02/22/2017 [facility] Blood specimen (specimen) 02/19/2017 8:44 PM EDT 02/19/2017 8:55 PM EDT Narrative Resulting Agency Comment Spec In Lab Eva Lal MD BLOOD BANK LAB ORDER MICHEL Performing Organization Address City/[facility]/ZIP Co de Phone Number [facility] [place] [address] * ABO/Rh Typing (02/19/2017 8:44 PM EDT) [place] Type O Pos [facility] Blood specimen (specimen) 02/19/2017 8:44 PM EDT 02/19/2017 8:55 PM EDT Narrative Resulting Agency Comment Spec In Lab Eva Lal MD BLOOD BANK LAB ORDER MICHEL Performing Organization Address City/State/[facility] Co de Phone Number [facility] [place] [address] * Ethanol Level (02/19/2017 8:44 PM EDT) Ethanol <100 mg/L [facility] Comment: Greater than 800 mg/L (0.08%) should be considered intoxicated. 3400 to 4500 mg/L (0.34 - 0.45%) is considered severe intoxication. Greater than 5500 mg/L (0.55%) is usually fatal. Blood specimen (specimen) 02/19/2017 8:44 PM EDT 02/19/2017 8:50 PM EDT Narrative Resulting Agency Comment Spec In Lab Eva Lal MD CHEMISTRY ORDERABLES Performing Organization Address [facility] de Phone Number [facility] [place] [address] * APTT (02/19/2017 8:44 PM EDT) Partial Thromboplastin Time 25 25 - 35 sec [facility] Comment: The recommended therapeutic range for full dose, unfractionated heparin at [facility] is 80 ? 114 seconds. The use of the anti-Xa (heparin) level rather than the PTT is recommended for monitoring anticoagulation intensity in critically ill patients receiving unfractionated heparin by continuous IV infusion. Blood specimen (specimen) 02/19/2017 8:44 PM EDT 02/19/2017 8:50 PM EDT Narrative Resulting Agency Comment Spec In Lab Eva Lal MD HEMATOLOGY ORDERABLE S Performing Organization Address [facility] Co de Phone Number [facility] [place] [address] * Prothrombin Time (02/19/2017 8:44 PM EDT) Prothrombin Time 12.8 12.0 - 15.0 sec [facility] Comment: An INR <2.0 indicates [...] International Normalization Ratio 0.9 0.9 - 1.1 [facility] Blood specimen (specimen) 02/19/2017 8:44 PM EDT 02/19/2017 8:50 PM EDT Narrative Resulting Agency Comment Spec In Lab Eva Lal MD HEMATOLOGY ORDERABLE S [facility] [place] [address] * (ABNORMAL) Basic Metabolic Panel (non-fasting) (02/19/2017 8:44 PM EDT) Glucose 176 65 - 199 mg/dL [facility] Comment:Diabetes: >=200 mg/d L plus symptoms Blood Urea Nitrogen 9 8 - 18 mg/dL [facility] Creatinine 0.88 0.70 - 1.20 mg/dL [facility] Comment: Please note that the pediatric reference intervals supplied above were not validated at [facility]. Results from pediatric patients should be interpreted in conjunction to the patient's age, height and muscle mass. Sodium 140 135 - 145 mmol/L [facility] Potassium Not Perf 3.5 - 5.0 mmol/L [facility] Comment: Unable to quantitate due to sample hemolysis. ??Sample redraw suggested. Called to Bernice (ED), 02/19/17 21:15 Please note: ??Patients with WBC >100,000 may have falsely elevated Potassium levels. ??For accurate Potassium quantification in these patients send serum separator tube (gold top) for subsequent determinations. ??Contact the Clinical Chemistry Laboratory if there are any questions. Chloride 102 98 - 107 mmol/L [facility] Carbon Dioxide 21(L) 22 - 31 mmol/L [facility] Anion Gap 17(H) 5 - 15 mmol/L [facility] Calcium 8.9 8.5 - 10.5 mg/dL [facility] Est Glomerular Filtration Rate >60 >=60 [facility] Comment: This estimated GFR (eGFR) [...] the following links into your internet browser. [email or web address] Blood specimen (specimen) 02/19/2017 8:44 PM EDT 02/19/2017 8:50 PM EDT Narrative Resulting Agency Comment Spec In Lab Eva Lal MD CHEMISTRY ORDERABLES Performing Organization Address City/[facility]/ZIP Co de Phone Number [facility] [place] [address] * (ABNORMAL) Lactate, whole blood, send to lab (02/19/2017 8:37 PM EDT) Lactate WB 3.3(H) 0.5 - 2.2 mmol/L [facility] Blood specimen (specimen) Venous Draw / Unknown 02/19/2017 8:37 PM EDT 02/19/2017 8:56 PM EDT Narrative Resulting Agency Comment Spec In Lab Kemal Arellano MD CHEMISTRY ORDERABLES [facility] [place] [address] documented in this encounter Visit Diagnoses Diagnosis [...] patient unable to take PO, may give TX if ordered, Routine fentaNYL 50mcg/mL injection 50 [...] patient unable to take PO, may give TX if ordered, Routine fentaNYL 50mcg/mL injection (CANCELED) [...] Routine documented in this encounter Care Teams Supervisor Denture Department Relationship Specialty Start Date End Date None None PCP - General 12/09/16 02/27/18 documented as of this encounter
--- OUTSIDE RECORDS SUMMARY | 2024-06-14 17:13 | XMS_ITS | Encounter Summary ---
Author Organization [facility] Address [address] [place] [address] Care Team Providers Care Market Relationship Manager Name Role Phone Adelina Baca NP Primary Care Provider [phone] Reason for Referral * (Routine/Next Available) - Receiving Office to Obtain Authorization Specialty Diagnoses / Procedures Referred By Contac t Referred To Contact Procedures CT OUTSIDE IMAGES CHEST ABDOMEN PELVIS Imaging, External Referral ID Status Reason Start Date Expiration Date Visits Requested Visits Authorized [id number] Receiving Office to Obtain Authorization 06/08/2024 1 1 Reason for Visit * (Routine/Next Available) - Receiving Office to Obtain Authorization Specialty Diagnoses / Procedures Referred By Contac t Referred To Contact Procedures CT OUTSIDE IMAGES CHEST ABDOMEN PELVIS Imaging, External Referral ID Status Reason Start Date Expiration Date Visits Requested Visits Authorized [id number] Receiving Office to Obtain Authorization 06/08/2024 1 1 Encounter Details Date Type Department Care Team (Latest Contact Info) Description 03/15/2024 - 03/15/2024 23:59 EDT Hospital Encounter [facility] Secondary Reads [place] Discharge Disposition: Home or Self Care Social History Tobacco Use Types Packs/Day Years [...] Take 4 Tablets by mouth at bedtime. levothyroxine (SYNTHROID) 75 mcg tablet Take 1 Tablet by mouth daily. metFORMIN (GLUCOPHAGE) 500 mg tablet Take 1,000 mg by mouth daily. topiramate (TOPAMAX) 25 mg tablet Take 1 Tablet by mouth daily. documented as of this encounter Discharge Disposition Disposition Code Departure Means Destination Home or Self Care documented in this encounter Plan of Treatment Not on file documented as of this encounter Procedures Procedure Name Priority Date/Time Associated Diagnosis Comments CT OUTSIDE IMAGES CHEST ABDOMEN PELVIS Routine 03/15/2024 10:50 EDT documented in this encounter Results * CT OUTSIDE IMAGES CHEST ABDOMEN PELVIS (03/15/2024 10:50 EDT) Narrative 06/08/2024 10:50 EDT This is a non-reportable exam. External Imaging IMG OTHER IMAGING OR DERABLES documented in this encounter Visit Diagnoses Not on filedocumented in this encounter Care Teams Market Relationship Manager Relationship Specialty Start Date End Date Adelina Baca NP [address] [place] [address] PCP - General Family Medicine - Primary Care 03/30/22 05/08/24 documented as of this encounter
--- OUTSIDE RECORDS SUMMARY | 2024-06-14 17:13 | XMS_ITS | Encounter Summary ---
Author Organization [facility] Address [address] [place] [address] Care Team Providers Care Sample Preparation Supervisor Name Role Phone Lidia Benson PLANNING AIDE Primary Care Provider [phone] Encounter Details Date Type Department Care Team (Late st Contact Info) Description 02/23/2019 Results Only Imaging [facility] [phone] Unknown, Provider, Social History Tobacco Use Types [...] filedocumented in this encounter Care Teams Sample Preparation Supervisor Relationship Specialty Start Date End Date Lidia Benson NP [address] [place], [place] [address] PCP - General 09/27/17 03/29/22 documented as of this encounter
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
--- OUTSIDE RECORDS SUMMARY | 2024-06-14 17:13 | XMS_ITS | Clinical Summary ---
Author Organization [facility] Address [address] [place] [address] Care Team Providers Care Tube Closing Machine Operator Name Role Phone Antoni Ohara DO Primary Care Provider [phone] Allergies Active Allergy Reactions Criticality Noted Date [...] Encounters Date Type Department Care Team Description 06/13/2024 Telephone [facility] Plastic, Reconstructive & Cosmetic Surgery [address], [address] [address] Sid Lei MD FACS Surgery Scheduling 06/08/2024 Telephone [facility] Plastic, Reconstructive & Cosmetic Surgery [address] [address] Sid Lei MD FACS Imaging; Diagnostic Imaging Report 05/09/2024 14:30 EDT Office Visit [facility] Plastic, Reconstructive & Cosmetic Surgery [address], [address] [address] Sid Lei MD FACS 03/15/2024 - 03/15/2024 23:59 EDT Hospital Encounter [facility] Secondary Reads [place] Discharge Disposition: Home or Self Care from Last 3 Months Surgical History Surgery Date Site/Laterality Comments BREAST SURGERY 1998 Asymmetry - Dr. Gao ([facility]) Medical History Medical History Date Comments Thyroid disease Schizophrenia ([facility]) Family History Medical History Relation [...] series) 09/03 COVID-19 Vaccine ( season) 2024 Procedures Procedure Name Priority Date/Time Associated Diagnosis Comments CT OUTSIDE IMAGES CHEST ABDOMEN PELVIS Routine 03/15/2024 10:50 EDT from Last 3 Months Results * CT OUTSIDE IMAGES CHEST ABDOMEN PELVIS (03/15/2024 10:50 EDT) Narrative 06/08/2024 10:50 EDT This is a non-reportable exam. External Imaging IMG OTHER IMAGING OR DERABLES from Last 3 Months Care Teams Tube Closing Machine Operator Relationship Specialty Start Date End Date Antoni Ohara DO [address] [place] [address] PCP - General Family Medicine - Primary Care 05/09/24
--- OUTSIDE RECORDS SUMMARY | 2024-06-14 17:13 | XMS_ITS | Encounter Summary ---
Author Organization [facility] Address [address] [place] [address] Care Team Providers Care Pickle Pumper Name Role Phone Adelina Baca NP Primary Care Provider [phone] Antoni Ohara DO Primary Care Provider [phone] Encounter Details Date Type Department Care Team (Late st Contact Info) Description 07/19/2023 [facility] - [facility] [address] [place], [place] [id number] Outr Resulting Lab, Provider Social History Tobacco [...] Lyme Ab Negative Negative 07/21/2023 9:50 EST [facility] Blood VENOUS BLOOD / Unknown 07/19/2023 16:20 EST 07/20/2023 17:01 EST Provider Outr Resulting Lab IMMUNOLOGY A ND SEROLOGY ORDERABLES [facility] [address] [place] [address] documented in this encounter Visit Diagnoses Not on filedocumented in this encounter Care Teams Pickle Pumper Relationship Specialty Start Date End Date Adelina Baca, NYA [address] [place] [address] PCP - General Family Medicine - Primary Care 03/30/22 05/08/24 Antoni Ohara DO [address] [place] [phone] PCP - General Family Medicine - Primary Care 05/09/24 documented as of this encounter
--- OUTSIDE RECORDS SUMMARY | 2024-06-14 17:13 | XMS_ITS | Encounter Summary ---
Author Organization [facility] Address [address] [place] [address] Care Team Providers Care Gun Synchronizer Name Role Phone Unknown, Provider Primary Care Provider [phone] Encounter Details Date Type Department Care Team (Late st Contact Info) Description 10/16/2010 Results Only [facility] Laboratory Services - [facility] ([facility] [address] [place], [place] [address] Violetta Ponce, SUPERVISOR PAINT DEPARTMENT [address] [facility] [address] [place] [phone] Social History Tobacco Use Types Packs/Day Years [...] ? SHANEKA LANDON ? Accession #: ? [id number] ? : ? 1980 (Age: 30) ??F ?Collect Date: ? 10/16/2010 ? Location: ? [facility] ? Receive Date: ? 10/20/2010 ? Provider: ?VIOLETTA W NAT SUPERVISOR PAINT DEPARTMENT ? Copy to: ? Specimen/Source: ?Pap Test, [...] [facility] 10/16/2010 10/20/2010 Violetta Ponce SUPERVISOR PAINT DEPARTMENT PATHOLOGY ORDERABLES [facility] [address] [place] [address] documented in this encounter Visit Diagnoses Not on filedocumented in this encounter Care Teams Gun Synchronizer Relationship Specialty Start Date End Date Unknown, Provider, PCP - General 09/08/09 09/08/11 documented as of this encounter
--- OUTSIDE RECORDS SUMMARY | 2024-06-14 17:13 | XMS_ITS | Encounter Summary ---
Author Organization [facility] Address [address] [place] [address] Care Team Providers Care Furnace Cleaner Name Role Phone Violetta Ponce NP Primary Care Provider [phone] Reason for Visit * Reason Comments Breast Implant Problem Encounter Details Date Type Department Care Team (Latest Contact Info) Description 01/17/2014 9:00 EDT Office Visit [facility] Plastic, Reconstructive & Cosmetic Surgery - [address], [address] [place] [address] Courtney Elkins MD [address] [facility] [address] [place] [address] Breast asymmetry (Primary Dx) Discharge Disposition: Auto [...] Notes * Courtney Elkins MD - 01/17/2014 5991 EDT This is a 33-year-old referred in consultation by Violetta Ponce in [facility] for considerationfor breast balancing. The patient relates that in [address] Gao at [facility]. She had a significant breast asymmetry. She reports the implant was placed on the left side, and that she had a lift on the right. Her symmetry was okay, but not great. Quite soon after surgery she reports that she got elbowed and the implant deflated. She has not been back to [facility] recently. She reports that she smokes about a pack a day and she has 2 children, ages 9 and 11. 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 She has a history of schizophrenia. She works with the [employer] [employer] and someone there manages her medications [...] to try to get her records from [facility], so she signed a release for that. [...] spent a total of 25 minutes in [id number] time with this patient and 25 minutes of that time was spent in counseling and coordination of care as described above. cc: Violetta Ponce at [facility] documented in this encounter Plan of [...] 10/19/2017 added in this encounter Care Teams Furnace Cleaner Relationship Specialty Start Date End Date Violetta Ponce NP [address] [place] [phone] PCP - General 09/09/11 12/26/14 documented as of this encounter
--- OUTSIDE RECORDS SUMMARY | 2024-06-14 17:13 | XMS_ITS | Referral Summary ---
Author Organization [facility] Address [address] [place] [address] Care Team Providers Care Tufter Hand Name Role Phone Antoni Ohara DO Primary Care Provider [phone] Encounters Date Type Department Care Team Description 06/13/2024 Telephone [facility] Plastic, Reconstructive & Cosmetic Surgery [address], [address] [address] Sid Lei MD FACS Surgery Scheduling 06/08/2024 Telephone [facility] Plastic, Reconstructive & Cosmetic Surgery - [address], [address] [address] Sid Lei MD FACS Imaging; Diagnostic Imaging Report 05/09/2024 14:30 EDT Office Visit [facility] Plastic, Reconstructive & Cosmetic Surgery [address], [address] [address] Sid Lei MD FACS 03/15/2024 - 03/15/2024 23:59 EDT Hospital Encounter [facility] Secondary Reads [place] Discharge Disposition: Home or Self Care from Last 3 Months Allergies Active Allergy [...] EST Plan of Treatment Not on file Procedures Procedure Name Priority Date/Time Associated Diagnosis Comments CT OUTSIDE IMAGES CHEST ABDOMEN PELVIS Routine 03/15/2024 10:50 EDT from Last 3 Months Results * CT OUTSIDE IMAGES CHEST ABDOMEN PELVIS (03/15/2024 10:50 EDT) Narrative 06/08/2024 10:50 EDT This is a non-reportable exam. External Imaging IMG OTHER IMAGING OR DERABLES from Last 3 Months Care Teams Tufter Hand Relationship Specialty Start Date End Date Antoni Ohara DO [address] [place] [address] PCP - General Family Medicine - Primary Care 05/09/24
[2024-06-14 17:14] LABS: Abs Immature Grans 0.03 10^3/uL (0.0-0.06); Absolute Basophil Count 0.05 10^3/uL (0.0-0.2); Absolute Eosinophil Count 0.07 10^3/uL (0.0-0.7); Absolute Lymphocyte Count 3.01 10^3/uL (1.2-3.4); Absolute Monocyte Count 0.57 10^3/uL (0.1-0.8); Basophils % 0.6 %; Eosinophils % 0.9 %; HCT 39.8 % (36.0-46.0); HGB 14.1 g/dL (11.2-15.7); Immature Grans % 0.4 %; Lymphocytes % 38.9 %; MCH 33.5 pg (27.0-33.0); MCHC 35.4 % (32.0-36.0); MCV 95 fL (80-95); MPV 9.7 fL (8.0-11.0); Monocytes % 7.4 %; Neutrophils % 51.8 %; Platelet Count 272 10^3/uL (130-400); RBC 4.21 10^6/uL (3.93-5.22); RDW-SD 41.7 fL; WBC 7.73 10^3/uL (4.4-10.8)
--- NOTE | 2024-06-14 17:17 | ED.GENADUL_ITS ---
Discharge Plan Disposition Patient Disposition: Home Condition: Stable Discharge Details Clinical Impression: Chest pain, Hypokalemia, Hypomagnesemia Primary Care Provider: Antoni Ohara ED Provider: Ruth Calderon Home Meds and New Rx's Prescriptions: No Action aripiprazole 10 mg tablet 10 mg PO DAILY fludrocortisone 0.1 mg tablet 0.2 mg PO DAILY Qty: 90 3RF Rx Instructions: Reported by Terrance [place] 02/23/2024 metoprolol tartrate 50 mg tablet 50 mg PO BID Qty: 90 3RF levothyroxine 75 mcg tablet See Rx Instructions .ROUTE .COMPLEX Qty: 90 3RF Dose Instruction: TAKE 1 TABLET BY MOUTH DAILY Rx Instructions: TAKE 1 TABLET BY MOUTH DAILY divalproex 500 mg Tablet,Delayed Release (Dr/Ec) 1,000 mg PO BID topiramate [Topamax] 50 mg tablet 50 mg PO BID Patient Comments: Take 1 tablet by mouth twice a day Aristada 882 mg/3.2 mL suspension,extended rel syring 882 mg IM Q4W Patient Comments: not taking Rx Instructions: every 4 weeks Discharge Instructions Instructions: Chest Pain (DC) Additional Instructions: * Blood work is not indicate a cardiac cause of your chest pain. Your EKG is normal * Your potassium and magnesium levels are slightly low and you were given medica tion to replace these levels. * Please continue your home medications and follow-up with your PCP HPI General Date/Time Provider Initiated Documentation: 06/14/24 16:51 . Limitations to Documentation: no limitations . Information obtained by: patient . HPI Narrative: 43-year-old patient with past medical history of POTS, diabetes, schizophrenia presents for evaluation of left-sided chest pain. She reports that it has been present for the last 3 days. It radiates to her left shoulder. Not associated with shortness of breath, nausea or diaphoresis. She states that she has never had pain like this before. There are no exacerbating relieving factors. Pain is constant, not reproducible. She reports that she is having some mild dizziness and weakness that is consistent with her POTS. Related Data Home Medications ?Medication ?Instructions ?Recorded ?Confirmed aripiprazole lauroxil 882 mg/3.2 882 mg IM Q4W 07/12/21 06/14/24 mL suspension, ext.rel. IM syringe (Aristada) topiramate 50 mg tablet (Topamax) 50 mg PO BID 07/12/21 06/14/24 divalproex 500 mg tablet,delayed 1,000 mg PO BID 09/17/21 06/14/24 release aripiprazole 10 mg tablet 10 mg PO DAILY 02/22/24 06/14/24 fludrocortisone 0.1 mg tablet 0.2 mg (2 x 0.1 mg) PO DAILY #90 05/10/24 06/14/24 tabs metoprolol tartrate 50 mg tablet 50 mg PO BID #90 tabs 06/01/24 06/14/24 levothyroxine 75 mcg tablet See Rx Instructions .Route 06/05/24 06/14/24 .COMPLEX #90 tabs Previous Rx's ?Medication ?Instructions ?Recorded fludrocortisone 0.1 mg tablet 0.2 mg (2 x 0.1 mg) PO DAILY #90 05/10/24 tabs metoprolol tartrate 50 mg tablet 50 mg PO BID #90 tabs 06/01/24 levothyroxine 75 mcg tablet See Rx Instructions .Route 06/05/24 .COMPLEX #90 tabs Allergies Allergy/AdvReac Type Severity Reaction Status Date / Time codeine Allergy Mild unknown Verified 06/14/24 16:54 General Stated Complaint: Chest Pain CECILIA: 3 Exam Narrative Exam Narrative: Review of Systems: All systems reviewed & are unremarkable except as noted in HPI and below Well-developed, no acute distress NCAT RRR, no murmur, no chest wall tenderness Unlabored respiratory effort, clear bilaterally Nondistended abdomen soft nontender Extremities w/o edema no focal neurologic deficits, normal gait, full strength in all extremities Course Vital Signs Vital signs: Vital Signs Temperature 36.9 C 06/14/24 16:47 Pulse 77 06/14/24 16:47 Respiratory Rate 14 06/14/24 16:47 Blood Pressure 147/88 H 06/14/24 16:47 Pulse Oximetry 99 06/14/24 16:47 Temperature 36.9 C 06/14/24 16:47 Pulse 77 06/14/24 16:47 Respiratory Rate 12 06/14/24 17:11 Respiratory Effort Normal, Non-Labored 06/14/24 17:11 Respiratory Depth Normal 06/14/24 17:11 Respiratory Pattern Normal 06/14/24 17:11 Blood Pressure 147/88 H 06/14/24 16:47 Blood Pressure Position Supine 06/14/24 16:47 Pulse Oximetry 99 06/14/24 16:47 Oxygen Delivery Method Room Air 06/14/24 16:47 Oxygen Flow Rate 0 06/14/24 16:47 Pain Level 2 06/14/24 16:47 Medical Decision Making Emergent evaluation of chest pain. Patient's pain has been ongoing for 3 days. She is hemodynamically stable. Her EKG was reviewed and independently interpreted: Sinus 69 normal axis no acute ischemic changes. I have a low hickman spicion for cardiopulmonary etiology, dissection or infectious etiology. The patient's complaints of dizziness and weakness are likely most consistent with her POTS. At this time she is hemodynamically stable and does have preserved to walk to the emergency department without any difficulty. Plan for lab work, cardiac monitoring. Lab work reviewed. There is no leukocytosis or anemia. Her blood chemistry does reveal some mild hypokalemia at 3.4 patient does have some hyperglycemia without evidence of DKA. Her troponin is 4. Given her otherwise low risk factors, normal EKG and the chronicity of her symptoms, do not feel additional emergent workup is indicated. Patient has remained hemodynamically stable and asymptomatic from her POTS. At this time she is discharged home in stable condition with instructions to follow-up for reevaluation of any ongoing chest pain with her PCP. 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 Diabetes mellitus type II, controlled (Acute) POTS (postural orthostatic tachycardia syndrome) (Acute) Plantar warts (Acute) Fatigue (Acute) Pelvic pain (Acute) Orthostatic hypotension (Acute) Chronic diarrhea (Acute) Nonalcoholic steatohepatitis (Acute) Hypothyroid (Chronic) Hirsutism (Acute) Dysfunctional uterine bleeding (Acute) Oligomenorrhea (Acute) Schizophrenia (Chronic) Medical History Uterine mass Non compliance w medication regimen Yeast dermatitis RLS (restless legs syndrome) H/O suicide attempt Schizoaffective disorder Deviated nasal septum Trigeminal neuralgia of left side of face (01/03/18) Type 2 diabetes mellitus History of hypothyroidism Drug overdose, intentional Surgical History S/p breast implant removal Sep 2019 S/P breast implant, left H/O pilonidal cyst S/P foot surgery Ligation of fallopian tube Family History Mother Diabetes Father Heart disease Social History Smoking/Tobacco Use Status: Current every day Tobacco Type: e-cigarettes Quit status: considering quitting Smoking risk assessment performed?: Yes Alcohol Intake: never Drug use: Current Sobriety Substance use type: does not use Adopted: No Caregiver/Support person: No Foster care: No Household members: none Housing: apartment Number of Children: 2 number of grandchildren: 0 Education Level: college Details: Some classes - no degree Do you need help understanding health information?: Never current occupation: Disabled Pets and animals: No (1) Sexually active: No Do you think of yourself as: straight/heterosexual Current gender identity: female What is your relationship status?: How often do you talk on the phone with friends or family?: once per week How often do you get together with friends or relatives?: never Do you belong to any clubs or organized social groups?: no Panel score (0-1 are the most socially isolated patients): 0 What type of physical activity do you participate in: walking Duration: 15-30 minutes/day Frequency: daily Lauren/Holiness: Yazidi Special lauren needs: No Seatbelt use: always Helmet use: Yes Drive intox or ride w/intox bulk truck driver: No Do you feel safe at home: Yes Do you feel safe in your relationship?: Yes Female Reproductive History Menstrual Age of Menarche: 16 Duration of menses: other control method: permanent sterilization History History 2 Para 2 Hx # Term Pregnancies Multiple births Hx # Pregnancies Ectopic pregnancies AB induced Hx Number of Living Children AB spontaneous Past Pregnancies Del. Date GA/Weeks # Preg Succ Route Wgt Sex Labor Lgth Anesth esia Location Prov Complic 08/30/01 40 No Yes vaginal Female 03/25/02 40 No Yes vaginal Male Delivery Date: 08/30/01 [facility] 03/25/02 Last Updated by: Aimee [facility]AD[facility]
[2024-06-14 17:55] LABS: ALT 19 U/L (14-59); AST 15 U/L (15-37); Albumin 3.3 g/dL (3.4-5.0); Alkaline Phosphatase 139 U/L (46-116); Anion Gap 9.9 mmol/L (3-11); BUN 9 mg/dL (7-18); Bilirubin, Total 0.33 mg/dL (0.2-1.0); CO2 27.1 mmol/L (21.0-32.0); CREATININE 0.7 mg/dL (0.55-1.02); Chloride 105 mmol/L (98-107); Estimated GFR 109.98 (mL/min/1.73m2); Glucose 207 mg/dL (74-106); Magnesium 1.9 mg/dL (1.8-2.4); Potassium 3.4 mmol/L (3.5-5.1); Sodium 142 mmol/L (136-145); Total Protein 7.2 g/dL (6.4-8.2); Troponin I 4 ng/L (<or=51)
[2024-06-14] MEDS: Magnesium Oxide 400 MG TAB PO (18:07)
[2024-06-14] MEDS: Potassium Chloride Liquid 20 MEQ PKT 40 MEQ PO (18:08)
== END 2024-06-14 18:18 | disposition home or self-care (01) ==
PROVIDERS: Emergency Provider Emergency Medicine; PCP Family Medicine
DX: R07.9 Chest pain, unspecified (principal); E87.6 Hypokalemia; E83.42 Hypomagnesemia; F17.290 Nicotine dependence, other tobacco product, uncomplicated
CPT/HCPCS: 36415; 80053; 93005; 99285; 71045; 83735; 84484; 85025; 93010; 99284

== ENCOUNTER 2024-06-15 22:14 | Emergency (ER) | payer MEDICAID, SELFPAY ==
[2024-06-15 22:22] VITALS: BP 126/76; PULSE 85; RESP 16; TEMP 36.5; O2SAT 100
--- OUTSIDE RECORDS SUMMARY | 2024-06-15 22:24 | XMS_ITS | Encounter Summary ---
Author Organization [facility] [place] [address] Care Team Providers Care Horseradish Maker Name Role Phone Lidia Benson APRN Primary Care Provider + [phone] Encounter Details Date Type Department Care Team (Late st Contact Info) Description 10/23/2018 Orders Only Gastroenterology at [facility] [place] [phone] Jimmy Calvillo PA [address] [place] [address] [place] [address] Abnormal LFTs (liver function tests) Social History [...] chemistry documented in this encounter Care Teams Horseradish Maker Relationship Specialty Start Date End Date Lidia Benson APRN [address] [place] [address] PCP - General Family Medicine 02/28/18 08/23/19 documented as of this encounter
--- OUTSIDE RECORDS SUMMARY | 2024-06-15 22:24 | XMS_ITS | Encounter Summary ---
Author Organization [facility] [place] [address] Care Team Providers Care Baker Pie Name Role Phone Kelley Lidia ZULETA Primary Care Provider + [phone] Encounter Details Date Type Department Care Team (Late st Contact Info) Description 12/27/2019 [place] [address] Ankur Galindo MD [facility] [address] [place] [address] Social History Tobacco Use Types Packs/Day Years [...] face documented in this encounter Care Teams Baker Pie Relationship Specialty Start Date End Date Lidia Benson, SONG [address] [place] [address] PCP - General Family Medicine 09/14/19 documented as of this encounter
--- OUTSIDE RECORDS SUMMARY | 2024-06-15 22:24 | XMS_ITS | Encounter Summary ---
Author Organization [facility] [place] [address] Care Team Providers Care Photographic Equipment Inspector Name Role Phone Lidia Benson APRN Primary Care Provider + [phone] Reason for Referral * Consultation (Routine) - Closed Specialty Diagnoses / Procedures Referred By Contac t Referred To Contact Radiation Oncology Diagnoses Trigeminal neuralgia of left side of face Ankur Galindo MD [facility] [place] [address] Nick Hewitt MD [facility] [place] [address] Referral ID Status Reason Start Date Expiration Date V isits Requested Visits Authorized [id number] Closed Consult, Test & Treat 12/06/2019 12/05/2020 1 1 Reason for Visit * Consultation (Routine) - Specialty Diagnoses / Procedures Referred By Contac t Referred To Contact Neurosurgery Diagnoses Trigeminal neuralgia Jannette Salter MD [facility] [address] [place] [address] [facility] [address] [place] [phone] Referral ID Status Reason Start Date Expiration Date V isits Requested Visits Authorized [id number] Consult, Test & Treat [facility] PCP Updated and/or Approved 11/26/2019 11/25/2020 1 1 Encounter Details Date Type Department Care Team (Latest Contact Info) Description 12/06/2019 10:40 AM EDT TH Visit (TeleHealth) Neurosurgery [place] [facility] [place] [address] Ankur Galindo MD [facility] [address] [address] Trigeminal neuralgia of left side of face [...] Galindo MD - 12/06/2019 10:40 AM EDT [facility] Stereotactic and Functional Neurosurgery Patient Name: Shaneka Samano : 1980 REF: Jannette Salter Date of Service: 12/06/[address] Jannette Salter: I had the pleasure of speaking with Shaneka Samano in a neurosurgery telephone visit today. As you know, she is a 39 y.o. woman with left V2 trigeminal neuralgia referred for possible surgical intervention. Due to the [facility] public health emergency and in person visit [...] shehad an MRI of her brain at [facility] in [place] about a year ago but we do [...] Amenorrhea N91.2 ??? Urinary frequency R35.0 ??? 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 Complication of breast implant, initial encounter T85.49XA Past Medical History: Diagnosis Date ??? Diabetes mellitus ??? Hypothyroidism ??? Schizophrenia Past Surgical History: Procedure Laterality Date ??? PRO REMOVAL OF IMPLANT MATERIAL Bilateral 09/17/2019 REMOVAL OF MAMMARY IMPLANT MATERIAL (WRVU 8.54) performed by Corby Curry MD at [facility] Allergies Allergen Reactions ??? Codeine [...] MD Division of Neurosurgery, [place] [address] Attestation: Patient verbally consents to this telephone [...] face documented in this encounter Care Teams Photographic Equipment Inspector Relationship Specialty Start Date End Date Lidia Benson, SONG [address] [facility] [place] [address] PCP - General Family Medicine 09/14/19 documented as of this encounter
--- OUTSIDE RECORDS SUMMARY | 2024-06-15 22:24 | XMS_ITS | Encounter Summary ---
Author Organization [facility] [place] [address] Care Team Providers Care Store Deli Manager Name Role Phone Lidia Benson APRN Primary Care Provider + [phone] Encounter Details Date Type Department Care Team (Late st Contact Info) Description 10/25/2018 External Results Gastroenterology at [facility] [place] [phone] Jimmy Calvillo PA [address] [place] [address] [place] [address] Social History Tobacco Use Types Packs/Day Years [...] on filedocumented in this encounter Care Teams Store Deli Manager Relationship Specialty Start Date End Date Lidia Benson APRN [address] [place] [address] PCP - General Family Medicine 02/28/18 08/23/19 documented as of this encounter
--- OUTSIDE RECORDS SUMMARY | 2024-06-15 22:24 | XMS_ITS | Encounter Summary ---
Author Organization [facility] [place] [address] Care Team Providers Care Track Vehicle Repairer Name Role Phone Lidia Benson APRN Primary Care Provider + [phone] Encounter Details Date Type Department Care Team (Late st Contact Info) Description 07/18/2018 Telephone Gastroenterology at [facility] [phone] Toan Mena Social History Tobacco Use Types [...] on filedocumented in this encounter Care Teams Track Vehicle Repairer Relationship Specialty Start Date End Date Lidia Benson APRN [address] [place] [address] PCP - General Family Medicine 02/28/18 08/23/19 documented as of this encounter
--- OUTSIDE RECORDS SUMMARY | 2024-06-15 22:24 | XMS_ITS | Encounter Summary ---
Author Organization [facility] [place] [address] Care Team Providers Care X Ray Service Technician Name Role Phone Lidia Benson APRN Primary Care Provider + [phone] Encounter Details Date Type Department Care Team (Late st Contact Info) Description 12/08/2018 2:15 PM EDT Ancillary Procedure Radiology Library at [facility], [place] [address] Alan Longo III, MD [facility] [place] [address] Social History Tobacco Use Types Packs/Day Years [...] CT Spine (12/08/2018 2:11 PM EDT) Narrative [facility] - 12/08/2018 2:11 PM EDT This exam is auto-finalizing. It's purpose is for storage only. Alan Longo III, MD IM FILM LIBRARY ORDERABLES DH RAD [place], [place] documented in this encounter Visit Diagnoses Not on filedocumented in this encounter Care Teams X Ray Service Technician Relationship Specialty Start Date End Date Lidia Benson, SONG [address] [place] [address] PCP - General Family Medicine 02/28/18 08/23/19 documented as of this encounter
--- OUTSIDE RECORDS SUMMARY | 2024-06-15 22:24 | XMS_ITS | Encounter Summary ---
Author Organization [facility] [place] [address] Care Team Providers Care Laboratory Asst Name Role Phone Kelley Lidia SONG Primary Care Provider + [phone] Reason for Visit * Reason Comments Follow Up Surgery s/p left breast impl ant removal Encounter Details Date Type Department Care Team (Late st Contact Info) Description 02/19/2020 11:15 AM EDT Office [place] [address] Corby Curry MD [facility] [place] [address] Surgery follow-up; Complication of breast implant, initial [...] encounter documented in this encounter Care Teams Laboratory Asst Relationship Specialty Start Date End Date Lidia Benson APRN [address] [place] [address] PCP - General Family Medicine 09/14/19 documented as of this encounter
--- OUTSIDE RECORDS SUMMARY | 2024-06-15 22:24 | XMS_ITS | Encounter Summary ---
Author Organization [facility] [place] [address] Care Team Providers Care Key Account Manager Name Role Phone Lidia Benson APRN Primary Care Provider + [phone] Reason for Visit * Auth/Cert Specialty Diagnoses / Procedures Referred By Mateusz ibarra Referred To Contact Diagnoses implant deflation left breast Procedures PRO REMOVAL OF BREAST IMPLANT PRO REMOVAL OF BREAST CAPSULE REMOVAL OF INTACT MAMMARY IMPLANT (WRVU 6.48) BREAST, PERIPROSTHETIC CAPSULECTOMY (WRVU 10.62) Referral ID Status Reason Start Date Expiration Date Visits Re quested Visits Authorized [id number] 1 1 Encounter Details Date Type Department Care Team (Latest Contact Info) Description 09/17/2019 7:02 AM EST - 09/17/2019 11:32 AM EST Hospital Encounter [place] [address] Corby Curry MD [facility] [place] [address] Discharge Disposition: Home Social History Tobacco Use [...] closest emergency room or call the hospital earth boring machine operator at [phone] and ask for physician software solutions architect covering for your physician. Questions or problems after 5pm or on a weekend: Call the [facility] earth boring machine operator at and ask for the physician software solutions architect covering for your doctor. * Patient Instructions* Cheri Braxton, WEBSPHERE ARCHITECT - 09/17/2019 10:37 AM EST Images from the original note were not included. Discharge instructions: ?? The healing process after breast reduction surgery varies with each person. You should expect tofeel tired for the first 2 - 3 weeks due to anesthesia and the healing process. Rest often during the day and get a good night sleep. Pain (short term and jail) ?? With any surgery there is some [...] scheduling, please contact our administrative offices at [phone] ?? For clinical questions, please call our nurses at [phone] ?? Both offices are open Tuesday thru Tuesday 8a - 5p. With emergencies after hours, call the hospital earth boring machine operator at [phone] and ask for the Plastic Surgery Resident software solutions architect. [facility] DRAIN CARE INSTRUCTIONS General Information: Drains [...] Center 09/25/2019 11:00 AM NURSE, PLASTIC SURGERY [facility] [address] [place] [address] documented in this encounter Medications at Time [...] by mouth daily. 06/01/2018 lancets Misc by [facility].(Non-Drug; Combo Route) route. Blood-Glucose Meter Misc by [facility].(Non-Drug; Combo Route) route. ARIPiprazole (ABILIFY MAINTENA) 400 [...] Operative Note Patient Name: Shaneka Samano : [id number] MR#: [id number] Case Date: 09/17/2019 Surgeon: Surgeon(s) and Role: [...] fitting, review post-op activity restrictions 6 months: chucking machine operator f/u with surgeon Future Appointments Date Time Provider Department Center 09/25/2019 11:00 AM NURSE, PLASTIC SURGERY [facility] * Op Note - Corby Curry MD - 09/17/2019 10:12 AM EST [facility] Operative Note Patient Name: Shaneka Samano : [id number] MR#: [id number] Case Date: 09/17/2019 Surgeon: Surgeon(s) and Role: [...] implant rather than going through the area [place] scar which she had had previously with [...] 11:03 AM EST Removal Of Implant Material (85021) 09/17/2019 8:58 AM EST implant deflation left [...] (Intra-Procedure), Routine 929 (Given - Provid er: Cobry Curry MD) lidocaine-EPINEPHrine 1 %-1:100,000 injection (CANCELED) ONCE PRN, Starting on Tue09/17/19 at 0916, Until Tue09/17/19 at 1336, Intra-Operative (Intra-Procedure), Routine 915 (Given - Provid er: Corby Curry MD) documented in this encounter Care Teams Key Account Manager Relationship Specialty Start Date End Date Lidia Benson, WEBSPHERE ARCHITECT [address] [place] [address] PCP - General Family Medicine 09/14/19 documented as of this encounter
--- OUTSIDE RECORDS SUMMARY | 2024-06-15 22:24 | XMS_ITS | Encounter Summary ---
[place] [address] Care Team Providers Care Marine Fitter Name Role Phone Lidia Benson APRN Primary Care Provider + [phone] Reason for Referral * Consultation (Routine) - Specialty Diagnoses / Procedures Referred By Mateusz ibarra Referred To Contact Gastroenterology Diagnoses Nonalcoholic steatohepatitis METZGER Marcio Lovelace MD [address] [place] [address] [place] [address] [facility] [place] [address] Referral ID Status Reason Start Date Expiration Date V isits Requested Visits Authorized [id number] Consult, Test & Treat PCP Updated and/or Approved 03/11/2022 03/11/2023 6 6 Encounter Details Date Type Department Care Team (Latest Contact Info) Description 03/11/2022 Transcribe Orders eDH Incoming Referrals [phone] Marcio Lovelace MD [address] [place] [address] [place], [place] [id number] Nonalcoholic steatohepatitis Social History Tobacco Use Types [...] disease documented in this encounter Care Teams Marine Fitter Relationship Specialty Start Date End Date Lidia Benson, SONG [address] [place] [address] PCP - General Family Medicine 09/14/19 documented as of this encounter
--- OUTSIDE RECORDS SUMMARY | 2024-06-15 22:24 | XMS_ITS | Encounter Summary ---
Author Organization [facility] [place] [address] Care Team Providers Care Endless Belt Finisher Name Role Phone Lidia Benson APRN Primary Care Provider + [phone] Encounter Details Date Type Department Care Team (Late st Contact Info) Description 03/06/2019 Ancillary Procedure Radiology Library at [facility] [place] [phone] Lidia Benson APRN [address] [place] [address] [place] [address] Social History Tobacco Use Types Packs/Day Years [...] MR Head (03/06/2019 12:00 AM EDT) Narrative [facility] - 12/26/2019 5:08 PM EDT This exam is auto-finalizing. It's purpose is for storage only. Lidia Benson APRN G FILM LIBRARY ORD ERABLES DH [place], [place] documented in this encounter Visit Diagnoses Not on filedocumented in this encounter Care Teams Endless Belt Finisher Relationship Specialty Start Date End Date Lidia Benson, SONG [address] [facility] [place] [address] PCP - General Family Medicine 02/28/18 08/23/19 documented as of this encounter
--- OUTSIDE RECORDS SUMMARY | 2024-06-15 22:24 | XMS_ITS | Encounter Summary ---
Author Organization [facility] [place] [address] Care Team Providers Care Sister Superior Name Role Phone Lidia Benson APRN Primary Care Provider + [phone] Reason for Visit * Reason Onset Date Comments Hepatic Disease 10/16/2018 Encounter Details Date Type Department Care Team (Late st Contact Info) Description 10/16/2018 Telephone [place] [address] Filomena Leyva Hepatic Disease Social History Tobacco [...] 10/17/2018 3:23 PM EST Called patient, left [facility] that she will need updated HFP [...] not have the EGD/ EUS and the [place] done on 08/01/18. I am routing to Dr. Calvillo documented in this encounter Plan of Treatment Not on file documented as of this encounter Visit Diagnoses Not on filedocumented in this encounter Care Teams Sister Superior Relationship Specialty Start Date End Date Lidia Benson APRN [address] [place] [address] PCP - General Family Medicine 02/28/18 08/23/19 documented as of this encounter
--- OUTSIDE RECORDS SUMMARY | 2024-06-15 22:24 | XMS_ITS | Encounter Summary ---
Author Organization [facility] [place] [address] Care Team Providers Care Electrician Supervisor Name Role Phone Lidia Benson APRN Primary Care Provider + [phone] Encounter Details Date Type Department Care Team (Late st Contact Info) Description 02/23/2019 Telephone [place] [address] Filomena Leyva Social History Tobacco Use Types [...] - 02/23/2019 11:53 AM EDT Shaneka Samano [id number] Diagnosis: EGD/ COLO 1. Have you ever had a EGD/colonoscopy before? [] YES [x] NO If Yes, Date of Last EGD/[place]: If yes, did you have any problems with the procedure? [] YES [x] NO Explain: What type of sedation was used: 2. Do you take any Blood Thinners? [] YES [x] NO If Yes, type: 3. Do you have a Pacemaker or Defibrillator device? [] YES [x] NO If Yes send inCortexa message to [facility] ENDO DEVICE CHECK 4. [...] on filedocumented in this encounter Care Teams Electrician Supervisor Relationship Specialty Start Date End Date Lidia Benson APRN [address] [place] [address] PCP - General Family Medicine 02/28/18 08/23/19 documented as of this encounter
--- OUTSIDE RECORDS SUMMARY | 2024-06-15 22:24 | XMS_ITS | Encounter Summary ---
Author Organization [facility] [place] [address] Care Team Providers Care Gas Station Manager Name Role Phone Lidia Benson APRN Primary Care Provider + [phone] Encounter Details Date Type Department Care Team (Late st Contact Info) Description 10/05/2019 Telephone Gastroenterology at [facility] [place] [address] Alannah Bowles Social History Tobacco Use Types [...] on filedocumented in this encounter Care Teams Gas Station Manager Relationship Specialty Start Date End Date Lidia Benson APRN [address] [place], [place] [id number] PCP - General Family Medicine 09/14/19 documented as of this encounter
--- OUTSIDE RECORDS SUMMARY | 2024-06-15 22:24 | XMS_ITS | Encounter Summary ---
Author Organization [facility] [place] [address] Care Team Providers Care Gizzard Skin Remover Name Role Phone Lidia Benson APRN Primary Care Provider + [phone] Encounter Details Date Type Department Care Team (Late st Contact Info) Description 01/15/2019 Telephone Gastroenterology at [facility] [place] [address] Eunice Joyner Social History Tobacco Use Types [...] - 01/15/2019 10:05 AM EDT Shaneka Samano [id number] Diagnosis: hematochezia, abdominal pain 1. Have you ever had an egd/ colonoscopy before? [] YES [x] NO If Yes, Date of Last [place]: If yes, did you have any problems with the procedure? [] YES [] NO Explain: What type of sedation was used: 2. Do you take any Blood Thinners? [] YES [x] NO If Yes, type: 3. Do you have a Pacemaker or Defibrillator device? [] YES [x] NO If Yes send inContur message to [employer] ENDO DEVICE CHECK 4. Are you a [...] NO 11. You must have a responsible libertarian stay at the facility during your procedure and drive you home? [x] YES 12. Is there any other information you would like to give us to aid in scheduling? Height: 5'3 Weight: 195 BMI: 34.5 Age:38 y.o. documented in this encounter Plan of Treatment Not on file documented as of this encounter Visit Diagnoses Not on filedocumented in this encounter Care Teams Gizzard Skin Remover Relationship Specialty Start Date End Date Lidia Benson APRN [address] [place] [address] PCP - General Family Medicine 02/28/18 08/23/19 documented as of this encounter
--- OUTSIDE RECORDS SUMMARY | 2024-06-15 22:24 | XMS_ITS | Encounter Summary ---
Author Organization [facility] [place] [address] Care Team Providers Care Cost Accounting Analyst Name Role Phone Lidia Benson APRN Primary Care Provider + [phone] Encounter Details Date Type Department Care Team (Late st Contact Info) Description 10/16/2018 Orders Only Gastroenterology at [facility] [place] [phone] Jimmy Calvillo PA [address] [place] [address] [place] [address] Abnormal liver function tests Social History Tobacco [...] chemistry documented in this encounter Care Teams Cost Accounting Analyst Relationship Specialty Start Date End Date Lidia Benson APRN [address] [place] [address] PCP - General Family Medicine 02/28/18 08/23/19 documented as of this encounter
--- OUTSIDE RECORDS SUMMARY | 2024-06-15 22:24 | XMS_ITS | Encounter Summary ---
Author Organization [facility] [place] [address] Care Team Providers Care Cap And Stud Machine Operator Name Role Phone Lidia Benson APRN Primary Care Provider + [phone] Reason for Visit * Auth/Cert Specialty Diagnoses / Procedures Referred By Mateusz ibarra Referred To Contact Diagnoses implant deflation left breast Procedures PRO REMOVAL OF BREAST IMPLANT PRO REMOVAL OF BREAST CAPSULE REMOVAL OF INTACT MAMMARY IMPLANT (WRVU 6.48) BREAST, PERIPROSTHETIC CAPSULECTOMY (WRVU 10.62) Referral ID Status Reason Start Date Expiration Date Visits Re quested Visits Authorized [id number] 1 1 Encounter Details Date Type Department Care Team (Late st Contact Info) Description 09/17/2019 8:55 AM EST Anesthesia Event [place] [address] Houston Kuhn MD [facility] [place] [address] Tayla Hernández CRNA [facility] [place] [address] Anesthesia Record Procedure Summary Procedure Name Responsible [...] 0750; metacarpal vein (top of hand), right; hzsj-zzm-vbwopb catheter system; 22 gauge, 3/4 in length; [...] Procedure Summary Date: 09/17/19 Room / Location: [address] Anesthesia Start: 854 Anesthesia Stop: 954 Procedure: REMOVAL OF MAMMARY IMPLANT MATERIAL (WRVU 8.54) (Bilateral Breast) Diagnosis: (implant deflation left breast) Surgeon: Corby Cui MD Responsible Provider: Houston Kuhn MD Anesthesia Type: general ASA Status: 2 All Anesthesia Providers: Anesthesiologist: Houston Kuhn MD CONTRACTS PARALEGAL: Tayla Hernández CRNA Vitals Value Taken Time BP 110/52 09/17/2019 10:00 AM Temp 35.9 ??C (96.6 ??F) 09/17/2019 9:49 AM Pulse 91 09/17/2019 10:07 AM Resp 16 09/17/2019 10:00 AM SpO2 97 % 09/17/2019 10:07 AM Pain Level Vitals shown include unvalidated device data. Patient Location: PACU/[facility] Level of Consciousness: Awake and Alert Pain [...] Hypothyroidism ??? Amenorrhea ??? Urinary frequency ??? 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 Schizoaffective disorder ??? Fall [...] risks discussed with patient. Plan discussed with CONTRACTS PARALEGAL and attending. PAT Clinic Note documented in [...] mL/hr documented in this encounter Care Teams Cap And Stud Machine Operator Relationship Specialty Start Date End Date Lidia Benson, FISHING TOOL OPERATOR [address] [place] [address] PCP - General Family Medicine 09/14/19 documented as of this encounter
--- OUTSIDE RECORDS SUMMARY | 2024-06-15 22:24 | XMS_ITS | Encounter Summary ---
Author Organization [facility] [place] [address] Care Team Providers Care Procurement Assistant Name Role Phone Lidia Benson APRN Primary Care Provider + [phone] Encounter Details Date Type Department Care Team (Late st Contact Info) Description 07/04/2018 Telephone Gastroenterology at [facility] [place] [address] Vishal Majano Social History Tobacco Use Types [...] on filedocumented in this encounter Care Teams Procurement Assistant Relationship Specialty Start Date End Date Lidia Benson APRN [address] [place] [address] PCP - General Family Medicine 02/28/18 08/23/19 documented as of this encounter
--- OUTSIDE RECORDS SUMMARY | 2024-06-15 22:24 | XMS_ITS | Encounter Summary ---
Author Organization [facility] [place] [address] Care Team Providers Care Fire Department Battalion Chief Name Role Phone Lidia Benson APRN Primary Care Provider + [phone] Encounter Details Date Type Department Care Team (Late st Contact Info) Description 12/25/2019 Telephone Radiation Oncology at [address] [address] Cezar Longo Social History Tobacco [...] on filedocumented in this encounter Care Teams Fire Department Battalion Chief Relationship Specialty Start Date End Date Lidia Benson APRN [address] [place], [place] [id number] PCP - General Family Medicine 09/14/19 documented as of this encounter
--- OUTSIDE RECORDS SUMMARY | 2024-06-15 22:24 | XMS_ITS | Encounter Summary ---
Author Organization [facility] [place] [address] Care Team Providers Care Mail Processing Machine Operator Name Role Phone Lidia Benson APRN Primary Care Provider + [phone] Reason for Visit * Reason Comments Follow Up Surgery s/p left breast impl ant removal with capsulectomy Encounter Details Date Type Department Care Team (Latest Contact Info) Description 09/27/2019 2:00 PM EST Clinical Support [place] [address] Surgery follow-up Social History Tobacco Use Types [...] symptoms please call our nurse's line at [phone] M - F 8 - 5 For after hours, and on weekends; Call [phone] and ask for our plastic surgeon senior project controls specialist documented in this encounter Progress Notes * [...] surgery documented in this encounter Care Teams Mail Processing Machine Operator Relationship Specialty Start Date End Date Lidia Benson APRN [address] [place] [address] PCP - General Family Medicine 09/14/19 documented as of this encounter
--- OUTSIDE RECORDS SUMMARY | 2024-06-15 22:24 | XMS_ITS | Encounter Summary ---
[place] [address] Care Team Providers Care Farmer Cash Grain Name Role Phone Lidia Benson APRN Primary Care Provider + [phone] Encounter Details Date Type Department Care Team (Late st Contact Info) Description 10/24/2018 Telephone [place] [address] Hien oRwan Social History Tobacco Use Types Packs/Day Years [...] on filedocumented in this encounter Care Teams Farmer Cash Grain Relationship Specialty Start Date End Date Lidia Benson APRN [address] [place], [place] [id number] PCP - General Family Medicine 02/28/18 08/23/19 documented as of this encounter
--- OUTSIDE RECORDS SUMMARY | 2024-06-15 22:24 | XMS_ITS | Encounter Summary ---
Author Organization [facility] [place] [address] Care Team Providers Care Tamale Machine Feeder Name Role Phone BeverlyLidia humphreys SONG Primary Care Provider + [phone] Encounter Details Date Type Department Care Team (Late st Contact Info) Description 07/10/2018 Telephone Gastroenterology at [facility] [place] [phone] Jimmy Calvillo PA [address] [place] [address] [place] [address] Social History Tobacco Use Types Packs/Day Years [...] on filedocumented in this encounter Care Teams Tamale Machine Feeder Relationship Specialty Start Date End Date Lidia Benson, INFECTIOUS DISEASE PHYSICIAN [address] [place] [address] PCP - General Family Medicine 02/28/18 08/23/19 documented as of this encounter
--- OUTSIDE RECORDS SUMMARY | 2024-06-15 22:24 | XMS_ITS | Encounter Summary ---
Author Organization [facility] [place] [address] Care Team Providers Care Health Safety Instructor Name Role Phone Lidia Benson APRN Primary Care Provider + [phone] Encounter Details Date Type Department Care Team (Late st Contact Info) Description 07/18/2018 Telephone [place] [address] Toan Mena Social History Tobacco Use Types [...] on filedocumented in this encounter Care Teams Health Safety Instructor Relationship Specialty Start Date End Date Lidia Benson APRN [address] [place], [place] [id number] PCP - General Family Medicine 02/28/18 08/23/19 documented as of this encounter
--- OUTSIDE RECORDS SUMMARY | 2024-06-15 22:24 | XMS_ITS | Clinical Summary ---
Author Organization [facility] [place] [address] Care Team Providers Care Tobacco Conditioner Name Role Phone Kelley Lidia ZULETA Primary Care Provider + [phone] Allergies Active Allergy Reactions Criticality Noted Date [...] 1 each 03/03/2017 Active lancets Misc by [facility]Non-Drug; Combo Route) route. Active Blood-Glucose Meter Misc by [facility]Non-Drug; Combo Route) route. Active LYRICA 50 mg [...] Hypothyroidism 06/28/2018 Amenorrhea 06/28/2018 Urinary frequency 06/28/2018 Ctlep-5-fteaqzpzsff deficiency carrier 8 Schizoaffective disorder 02/21/2017 Fall [...] PANEL Routine 08/31/2018 HIV SCREEN, 4TH GENERATION ([facility]) Routine 06/13/2018 3:46 PM EDT Upper abdominal [...] PM EDT) Hepatitis C Antibody Negative Negative [facility] Blood specimen (specimen) 06/13/2018 3:46 PM EDT 06/13/2018 3:50 PM EDT Narrative Resulting Agency Comment Spec In Lab Angela Pizarro CHOIR MEMBER CHEMISTRY ORDERA BLES Performing Organization Address [facility] Co de Phone Number [facility] [place] [address] * HIV Screen, 4th Generation (06/13/2018 3:46 PM EDT) Pathologist [facility] HIV Ab/Ag Screen Negative Negative [facility] Comment: This 4th Generation HIV test [...] Agency Comment Spec In Lab Angela Pizarro CHOIR MEMBER CHEMISTRY ORDERA BLES Performing Organization Address [facility] Co de Phone Number [facility] [place] [address] * (ABNORMAL) Hemoglobin A1c (02/28/2017 9:23 PM EDT) [facility] Hemoglobin A1c 5.8(H) 4.3 - 5.6 % [facility] Comment: Reference Range: 4.3 [...] 1, S67-74 Estimated Average Glucose 120 mg/dL [facility] Comment: eAG equivalents for [...] into estimated average glucose values. ??Diabetes Care 2008:31(8):3042-9020. Blood specimen (specimen) 02/28/2017 9:23 PM EDT 02/28/2017 9:32 PM EDT Narrative Resulting Agency Comment Spec In Lab Deshaun Noble MD CHEMISTRY ORDERABLE S [facility] [place] [address] from Last 3 Months or Most Recently [...] capacity to make decision: Yes Care Teams Tobacco Conditioner Relationship Specialty Start Date End Date Lidia Benson APRN [address] [place] [address] PCP - General Family Medicine 09/14/19
--- OUTSIDE RECORDS SUMMARY | 2024-06-15 22:24 | XMS_ITS | Encounter Summary ---
Author Organization [facility] [place] [address] Care Team Providers Care Student Support Services Director Name Role Phone KelleyLidia SONG Primary Care Provider + [phone] Encounter Details Date Type Department Care Team (Late st Contact Info) Description 12/08/2018 [place] [address] Cher Osman MD [facility] [place] [address] Social History Tobacco Use Types Packs/Day Years [...] on filedocumented in this encounter Care Teams Student Support Services Director Relationship Specialty Start Date End Date Lidia Benson, SONG [address] [place] [address] PCP - General Family Medicine 02/28/18 08/23/19 documented as of this encounter
--- OUTSIDE RECORDS SUMMARY | 2024-06-15 22:24 | XMS_ITS | Encounter Summary ---
Author Organization [facility] [place] [address] Care Team Providers Care Coat Finisher Name Role Phone Lidia Benson APRN Primary Care Provider + [phone] Encounter Details Date Type Department Care Team (Late st Contact Info) Description 10/19/2018 Telephone Gastroenterology at [facility] [place] [address] Toan Mena Social History Tobacco Use Types [...] labs done first. Pt said she uses [facility] for lab work so I faxed the orders there @ [phone]. documented in this encounter Plan of Treatment Not on file documented as of this encounter Visit Diagnoses Not on filedocumented in this encounter Care Teams Coat Finisher Relationship Specialty Start Date End Date Lidia Benson APRN [address] [place], [place] [id number] PCP - General Family Medicine 02/28/18 08/23/19 documented as of this encounter
--- OUTSIDE RECORDS SUMMARY | 2024-06-15 22:24 | XMS_ITS | Encounter Summary ---
Author Organization [facility] [place] [address] Care Team Providers Care Stripper Soft Plastic Name Role Phone Lidia Benson APRN Primary Care Provider + [phone] Reason for Visit * Auth/Cert Specialty Diagnoses / Procedures Referred By Mateusz ibarra Referred To Contact Diagnoses implant deflation left breast Procedures PRO REMOVAL OF BREAST IMPLANT PRO REMOVAL OF BREAST CAPSULE REMOVAL OF INTACT MAMMARY IMPLANT (WRVU 6.48) BREAST, PERIPROSTHETIC CAPSULECTOMY (WRVU 10.62) Referral ID Status Reason Start Date Expiration Date Visits Re quested Visits Authorized [id number] 1 1 Encounter Details Date Type Department Care Team (Late st Contact Info) Description 09/17/2019 8:15 AM EST - 09/17/2019 10:00 AM EST Surgery [place] [address] Corby Curry MD [facility] [place] [address] REMOVAL OF MAMMARY IMPLANT MATERIAL (WRVU 9) [...] closest emergency room or call the hospital breaking machine operator at [phone] and ask for physician fire suppression captain covering for your physician. Questions or problems after 5pm or on a weekend: Call the [facility] breaking machine operator at and ask for the physician fire suppression captain covering for your doctor. * Patient Instructions* Braxton, Cheri M, ROAD MACHINE RUNNER - 09/17/2019 10:37 AM EST Images from the original note were not included. Discharge instructions: ?? The healing process after breast reduction surgery varies with each person. You should expect tofeel tired for the first 2 - 3 weeks due to anesthesia and the healing process. Rest often during the day and get a good night sleep. Pain (short term and long-term) ?? With any surgery there is some [...] scheduling, please contact our administrative offices at [phone] ?? For clinical questions, please call our nurses at [phone] ?? Both offices are open Tuesday thru Tuesday 8a - 5p. With emergencies after hours, call the hospital breaking machine operator at [phone] and ask for the Plastic Surgery Resident fire suppression captain. DENNIS DRAIN CARE INSTRUCTIONS General Information: Drains [...] Center 09/25/2019 11:00 AM NURSE, PLASTIC SURGERY [address] documented in this encounter Medications at [...] by mouth daily. 06/01/2018 lancets Misc by [facility]Non-Drug; Combo Route) route. Blood-Glucose Meter Misc by [facility].(Non-Drug; Combo Route) route. 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 surgeon Future Appointments Date Time Provider Department Center 09/25/2019 11:00 AM NURSE, PLASTIC SURGERY [facility] PLAS 4M [facility] * Op Note - Corby Curry MD - 09/17/2019 10:12 AM EST [facility] Operative Note Patient Name: Shaneka Samano : [id number] MR#: [id number] Case Date: 09/17/2019 Surgeon: Surgeon(s) and Role: [...] 11:03 AM EST Removal Of Implant Material (87492) 09/17/2019 8:58 AM EST implant deflation left [...] of Surgery (Day of Procedure) 0751 ([facility] ider: Delia Gutierrez RN) PRN Medication [...] MD) documented in this encounter Care Teams Stripper Soft Plastic Relationship Specialty Start Date End Date Lidia Benson, ROAD MACHINE RUNNER [address] [place] [address] PCP - General Family Medicine 09/14/19 documented as of this encounter
--- OUTSIDE RECORDS SUMMARY | 2024-06-15 22:24 | XMS_ITS | Encounter Summary ---
Author Organization [facility] [place] [address] Care Team Providers Care Assembler Installer Structures Name Role Phone KelleyLidia SONG Primary Care Provider + [phone] Encounter Details Date Type Department Care Team (Late st Contact Info) Description 07/10/2018 [place] [phone] Jimmy Calvillo PA [address] [place] [address] [place] [address] Social History Tobacco Use Types Packs/Day Years [...] [facility]I [place]-C Section of [place]astroenter[place] [address] documented in this encounter Plan of Treatment Not on file documented as of this encounter Visit Diagnoses Not on filedocumented in this encounter Care Teams Assembler Installer Structures Relationship Specialty Start Date End Date Lidia Benson APRN [address] [place] [address] PCP - General Family Medicine 02/28/18 08/23/19 documented as of this encounter
--- OUTSIDE RECORDS SUMMARY | 2024-06-15 22:24 | XMS_ITS ---
Author Organization Unknown Address [address] [place] [phone] Phone Care Team Providers Care Rental Sales Agent Name Role Phone AMARA WARE Registered Nurse UnavailLizeth Gillespie Attending Unavailable JAVON WILLSON Primary Unavailable UNLISTED PROVIDER - REQUESTED Xhandoff Un available Results URINALYSIS WITH REFLEX CULT IF POSITIVE* - Collect Date/Time: 08/04/2022 11:09 [facility] ID: [id number] [address] [place], [place], [address] LOINC: 87718-6 Test Value Unit Reference Range Code Code System Flag COLLECTION MODE: CLEAN CATCH 57467-5 LOINC Color YELLOW yellow 5778-6 LOINC Appearance CLEAR clear 5767-9 LOINC Glucose urine >=1000 negative mg/dl 51059-9 LOINC A Bilirubin NEGATIVE negative 5770-3 LOINC Ketones 15 negative mg/dl 2514-8 LOINC A Spec gravity 1.010 1.003 - 1.030 5811-5 LOINC pH urine 6.5 5.0 - 7.0 2756-5 LOINC Protein NEGATIVE negative mg/dl 42105-9 LOINC Urobilinogen 0.2 <or= 1 EU/dl 27655-1 LOINC Nitrite. NEGATIVE negative 5802-4 LOINC Blood NEGATIVE negative 5794-3 LOINC Leukocytes. NEGATIVE negative MICROSCOPIC NOT INDICAT DRUG SCN 13 PANEL (MEDTOX)* - Collect Date/Time: 08/04/2022 11:09 [facility] ID: [id number] [address] [place] [address], [id number] LOINC: 10572-8 Test Value Unit Reference Range Code Code System Flag CANNABINOIDS NEGATIVE Cutoff = 50 ng/mL 12867-1 LOINC PHENCYCLIDINE NEGATIVE Cutoff = 25 ng/mL 35164-5 LOINC COCAINE NEGATIVE Cutoff = 150 ng/mL 41957-9 LOINC METHAMPHETAMINES NEGATIVE Cutoff = 50 0 ng/mL 20873-7 LOINC OPIATES NEGATIVE Cutoff = 100 ng/mL 26576-5 LOINC AMPHETAMINES NEGATIVE Cutoff = 500 ng/mL 87021-2 LOINC BENZODIAZEPINES NEGATIVE Cutoff = 150 ng/mL 70936-4 LOINC TRICYCLIC ANTIDEP NEGATIVE Cutoff = 3 00 ng/mL 3533-7 LOINC METHADONE NEGATIVE Cutoff = 200 ng/mL 99411-5 LOINC BARBITURATES NEGATIVE Cutoff = 200 ng/mL 65387-5 LOINC OXYCODONE NEGATIVE Cutoff = 100 ng/mL 03338-0 INC PROPOXYPHENE NEGATIVE Cutoff = 300 ng/mL 17125-2 INC BUPRENORPHINE NEGATIVE Cutoff = 10 mg/mL 3414-0 [facility] GLUCOSE FINGER/HEEL CAPILLAR Y - Collect Date/Time: 08/04/2022 10:44 [facility] ID: [id number] [address] [place] [address], [id number] LOINC: 01050-5 Test Value Unit Reference Range Code Code System Flag GLUCOSE CAP 328 mg/dL L=70 H=116 H GLUCOSE FINGER/HEEL CAPILLAR Y - Collect Date/Time: 08/04/2022 10:18 [facility] ID: [id number] [address] [place] [address], [id number] LOINC: 72700-0 Test Value Unit Reference Range Code Code System Flag GLUCOSE CAP 266 mg/dL L=70 H=116 H VALPROIC ACID (DEPAKENE)* - Collect Date/Time: 08/04/2022 09:50 [facility] ID: [id number] [address] [place] [address], [address] LOINC: 4086-5 Test Value Unit Reference Range Code Code System Flag VALPROATE 99 ug/mL L=50 H=100 ORDER VENOUS BLOOD GAS* - Co llect Date/Time: 08/04/2022 09:50 [facility] ID: [id number] [address] [place], [place], [id number] LOINC: Test Value Unit Reference Range Code [...] ACETAMINOPHEN* - Collect Carlos e/Time: 08/04/2022 09:50 [facility] ID: [id number] [address] [place] [address], [address] LOINC: 3298-7 Test Value Unit Reference Range Code Code System Flag ACETAMINOPHEN < 2.0 ug/mL L=10.0 H=20.0 3298-7 LOINC L SALICYLATE SERUM* - Collect Date/Time: 08/04/2022 09:50 [facility] ID: [id number] [address] [place] [address], [address] LOINC: 4024-6 Test Value Unit Reference Range Code Code System Flag SALICYLATE 3.5 mg/dL L=15.0 H=30.0 4024-6 LOINC L TROPONIN HIGH SENSITIVITY* - Collect Date/Time: 08/04/2022 09:50 [facility] ID: [id number] [address] [place] [address], [address] LOINC: 86808-3 Test Value Unit Reference Range Code Code System Flag TROPONIN HS 5.6 pg/mL L=0.0 H=60.4 Specimen seq. ADM. TEST QUAL (SERUM) - Collect Date/Time: 08/04/2022 09:50 [facility] ID: [id number] [address] [place] [address], 61 LOINC: 2118-8 Test Value Unit Reference Range Code Code System Flag TEST NEGATIVE 6-3 LOINC MAGNESIUM SERUM* - Collect D ate/Time: 08/04/2022 09:50 [facility] ID: [id number] [address] [place] [address], [address] LOINC: 17347-2 Test Value Unit Reference Range Code Code System Flag MAGNESIUM 1.9 mg/dL L=1.8 H=2.4 61869-3 LOINC CBC W/ DIFFERENTIAL* - Colle ct Date/Time: 08/04/2022 09:50 [facility] ID: [id number] [address] [place] [address], [address] LOINC: 98686-4 Test Value Unit Reference Range Code Code System Flag WBC 6.93 th/cmm L=5.00 H=10.00 6690-2 LOINC NEUT % 31.5 % L=40.0 H=80.0 L LYMPH % 56.4 % L=10.0 H=50.0 H MONO % 9.1 % L=2.0 H=12.0 61873-5 LOINC EOS % 1.9 % L=0.0 H=8.0 BASO % 0.4 % L=0.0 H=3.0 IG % 0.7 % L=0.0 H=1.1 2514-8 LOINC NRBC % 0.0 % L=0.0 H=0.0 08277-1 LOINC NEUT abs count 2.2 th/cmm L=1.6 H=8.4 751-8 LOINC LYMPH abs count 3.9 th/cmm L=1.5 H=4.0 731-0 LOINC MONO abs count 0.6 th/cmm L=0.2 H=1.0 742-7 LOINC EOS abs count 0.1 th/cmm L=0.0 H=0.5 711-2 LOINC BASO abs count 0.0 th/cmm L=0.0 H=0.2 704-7 LOINC IG abs count 0.1 th/cmm L=0.0 H=0.1 75128-2 LOINC NRBC abs count 0.0 mil/cmm L=0.0 H=0.0 12513-0 LOINC RBC 4.46 mil/cmm L=3.90 H=5.40 789-8 [...] L (CMP) - Collect Date/Time: 08/04/2022 09:50 [facility] ID: [id number] [address] [place] [address], [address] LOINC: 01541-0 Test Value Unit Reference Range Code Code [...] H=34 2028-9 LOINC ANION GAP 12.6 mmol/L 74583-4 LOINC CALCIUM SERUM 9.3 mg/dL L=8.2 H=10.2 12218-6 LOINC BILIRUBIN TOTAL 0.2 mg/dL L=0.0 H=1.3 1975-2 LOINC ALK. PHOS. 226 U/L L=46 H=116 6768-6 LOINC H SGOT (AST) 27 U/L L=15 H=37 1920-8 LOINC SGPT (ALT) 53 U/L L=12 H=78 1742-6 LOINC TOTAL PROTEIN 7.9 gm/dL L=6.0 H=8.0 2885-2 LOINC ALBUMIN 3.4 gm/dL L=3.4 H=5.0 1751-7 LOINC AGE 41 years eGFR (non-Afr.Amer.) 102 mL/min 81665-1 LOINC eGFR (Afr-Cuban) > 120 mL/min 20682-0 LOINC ALCOHOL (ETHANOL)* - Collect Date/Time: 08/04/2022 09:50 [facility] ID: [id number] [address] [place] [address], [address] LOINC: 68209-4 Test Value Unit Reference Range Code Code System Flag ALCOHOL (ETHANOL) < 3 mg/dL 67577-[address] HEAD WO CONTRAST - Comple jenna: 08/04/2022 11:24 LOINC: [facility] RADIOLOGY [place], [place] [address] PACS GROCERY CADDY REPORT Patient Name: BISMARK LANDON MRN: Sex: : Age: [id number] F 1980 41 Account: Accession: Admit: StayType: [id number] 08/04/2022 E/R Ordered: Order ID: Submitted: Ordering Provider: 08/04/2022 10:25 [id number] JENNY RUBIO Completed: Technologist: Resulted: 08/04/2022 11:24 [...] Female Vital Signs Vital Sign Value Unit Gaylord Value Gaylord Unit Date/Time Recent/Initial? Code Code System Body Mass Index 30.65 kg/m2 08/04/2022 11:32 Initial 07183 -5 LOINC Systolic Blood Pressure 122 mm[Hg] [...] Saturation 99 % 2021 16:03 Most Recent 78382 -5 LOINC O2 Saturation 100 % 2021 11:32 Initial 36274 -5 LOINC Inhaled Oxygen Flow Rate 6.00 [...] 78.47 kg 173.00 lbs 08/04/2022 11:32 Initial 03940 -7 LOINC Hospital Discharge Instructions Should you [...]
--- OUTSIDE RECORDS SUMMARY | 2024-06-15 22:24 | XMS_ITS | Encounter Summary ---
Author Organization [facility] [place] [address] Care Team Providers Care Feeder Tender Name Role Phone Lidia Benson APRN Primary Care Provider + [phone] Encounter Details Date Type Department Care Team (Late st Contact Info) Description 01/29/2022 Ancillary Procedure Radiology Library at [facility] [place] [phone] Lidia Benson APRN [address] [place] [address] [place] [address] Social History Tobacco Use Types Packs/Day Years [...] MARMOLEJOG FILM LIBRARY ORD ERABLES DH RAD [place], [place] documented in this encounter Visit Diagnoses Not on filedocumented in this encounter Care Teams Feeder Tender Relationship Specialty Start Date End Date Lidia Benson APRN [address] [place] [address] PCP - General Family Medicine 09/14/19 documented as of this encounter
--- OUTSIDE RECORDS SUMMARY | 2024-06-15 22:24 | XMS_ITS | Encounter Summary ---
Author Organization [facility] [place] [address] Care Team Providers Care District Plant Supervisor Name Role Phone JarrettLidia silva SONG Primary Care Provider + [phone] Encounter Details Date Type Department Care Team (Late st Contact Info) Description 10/20/2018 External Results [facility]ology at [facility] [place] [phone] Jimmy Calvillo PA [address] [place] [address] [place] [address] Social History Tobacco Use Types Packs/Day Years [...] on filedocumented in this encounter Care Teams District Plant Supervisor Relationship Specialty Start Date End Date Lidia Benson, ANIMAL KILLER [address] [place] [address] PCP - General Family Medicine 02/28/18 08/23/19 documented as of this encounter
--- OUTSIDE RECORDS SUMMARY | 2024-06-15 22:24 | XMS_ITS | Encounter Summary ---
Author Organization [facility] [place] [address] Care Team Providers Care Lightning Rod Erector Name Role Phone Lidia Benson APRN Primary Care Provider + [phone] Reason for Visit * Reason Comments Advice Only breast implant compl ications left breast Encounter Details Date Type Department Care Team (Late st Contact Info) Description 07/13/2019 10:30 AM EST Office [place] [address] Corby Curry MD [facility] [place] [address] Complication of breast implant, initial encounter Social [...] supplements, Ginseng, Fish oil tablets, Ginkgo and Milburn's Wort. May resume 48 hours after surgery [...] appointment. Feel free to call our office [phone] if you have any nursingquestions or concerns. We monitor the phones from 8-5 Tuesday through Tuesday. Expect a call from the Same Day Dept the business day before surgery to go over your list of medications and instruct you on arrival time, and when to stop eating and drinking. For questions pertaining to your surgery date or time please call Alannah at [phone]. documented in this encounter Progress Notes * [...] file Gets together: Not on file Attends buddhist service: Not on file Active member of [...] Left Breast Implant Removal with Caspulectomy CPT: 06223, [address] Surgical site: Breast Side: Left Anesthesia: General [...] encounter documented in this encounter Care Teams Lightning Rod Erector Relationship Specialty Start Date End Date Lidia Benson, CONE PICKER [address] [place] [address] PCP - General Family Medicine 02/28/18 08/23/19 documented as of this encounter
--- OUTSIDE RECORDS SUMMARY | 2024-06-15 22:24 | XMS_ITS | Encounter Summary ---
Author Organization [facility] [place] [address] Care Team Providers Care Internal Controls Manager Name Role Phone Kelley Lidia ZULETA Primary Care Provider + [phone] Encounter Details Date Type Department Care Team (Late st Contact Info) Description 12/06/2019 Telephone [facility]surgery at [facility] [place] [phone] Savana White Social History Tobacco Use Types [...] Dr. Galindo, MRI Head completed 03/06/19 at [facility] is in eDH for your review. Pt was scheduled w Dr. Hewitt for a 5/5 appt but has since declined appt. Thank you. Jade * Telephone Encounter - Savana White - 12/26/2019 3:59 PM EDT Faxed 2nd request for MRI Brain to [facility] [[phone]] * Telephone Encounter - Yokasta Hollingsworth - 12/26/2019 10:32 AM EDT Imaging not received, need to refax request. * Telephone Encounter - Yokasta Hollingsworth - 12/19/2019 1:29 PM EDT Faxed image request to [facility] ([phone]). Postponing to allow time for processing. * [...] on filedocumented in this encounter Care Teams Internal Controls Manager Relationship Specialty Start Date End Date Lidia Benson, APPLICATION DEVELOPMENT TEAM LEAD [address] [facility] [place] [address] PCP - General Family Medicine 09/14/19 documented as of this encounter
[2024-06-15 22:25] VITALS: BP 126/76; PULSE 85; RESP 16; TEMP 36.5; O2SAT 100
--- OUTSIDE RECORDS SUMMARY | 2024-06-15 22:25 | XMS_ITS | Encounter Summary ---
Author Organization [facility] [place] [address] Care Team Providers Care Christmas Tree Farmer Name Role Phone None Primary Care Provider Unavailabl e Reason for Visit * Reason Onset Date Comments Prior Authorization 02/22/2017 [facility] rev iew correction 02/28/17 Encounter Details Date Type Department Care Team (Late st Contact Info) Description 02/22/2017 [place] [phone] Teagan Vyas MD [facility] [place] [address] Prior Authorization ([facility] review correction 02/28/17) [...] to previous auth note: review due 02/28/17with [facility] per corrected auth. Auth scannedinto chart. Notes - phone note with routing done documented in this encounter Plan of Treatment Not on file documented as of this encounter Visit Diagnoses Not on filedocumented in this encounter Care Teams Christmas Tree Farmer Relationship Specialty Start Date End Date None None PCP - General 4/6/17 6/25/18 documented as of this encounter
--- OUTSIDE RECORDS SUMMARY | 2024-06-15 22:25 | XMS_ITS | Encounter Summary ---
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 In Lab Deshaun Noble MD HEMATOLOGY ORDERABL ES [facility] [place] [place] [address] * (ABNORMAL) Differential, Automated (02/28/2017 9:23 PM EDT) Neutrophil % 65.0 % [facility] Neutrophil Absolute 6.89(H) 1.70 - 6.10 x10(3)/mc L [facility] Lymph % 22.6 % [facility] Lymphocytes Abs 2.4 0.9 - 3.2 x10(3)/mc L [facility] Monocyte % 7.1 % [facility] Monocyte Abs 0.8 0.3 - 0.9 x10(3)/ L [facility] Eos % 3.6 % [facility] Eosinophils Abs 0.4 0.0 - 0.4 x10(3)/ L [facility] Basophil % 0.5 % [facility] Baso Absolute 0.0 0.0 - 0.1 x10(3)/mc L [facility] Immature Gran % 1.20 % [facility] Comment: Immature granulocytes(IG's)percentage and absolute count will include metamyelocytes, myelocytes, and promyelocytes. Blood smears from CBCs yielding IG's will be scanned manually for concordance. If this scan disagrees with the automated IG or if promyelocytes are noted, a manual differential will be performed. Immature Gran Absolute 0.13(H) 0.00 - 0.04 x10(3)/[facility] Blood specimen (specimen) 02/28/2017 9:23 PM EDT 02/28/2017 9:32 PM EDT Narrative Resulting Agency Comment Spec In Lab Deshaun Noble MD HEMATOLOGY ORDERABL ES [facility] [place] [address] * (ABNORMAL) Hemogram (02/28/2017 9:23 PM EDT) White Blood Cell 10.6(H) 4.0 - 9.5 x10(3)/[facility] Red Blood Cell 3.50(L) 4.00 - 5.21 x10(6)/[facility] Hemoglobin 11.1(L) 11.7 - 15.5 gm/dL [facility] Hematocrit 32.7(L) 35.7 - 45.8 % [facility] Mean Cell Volume 93.4 82.6 - 94.4 fL [facility] Mean Cell Hemoglobin 31.7 27.1 - 32.0 pg [facility] Mean Cell Hemoglobin Concentration 33.9 31.7 - 35.0 gm/dL [facility] Platelet 420(H) 145 - 357 x10(3)/[facility] RDW Standard Deviation 45.1 37.0 - 46.0 [facility] RDW coefficient of variation 13.3 11.5 - 14.1 % [facility] Mean Platelet Volume 9.2 7.6 - 12.9 [facility] NRBC% auto 0.0 % [facility] NRBC Absolute 0.000 0.000 - 0.000 x10(3)/[facility] Blood specimen (specimen) 02/28/2017 9:23 PM EDT 02/28/2017 9:32 PM EDT Narrative Resulting Agency Comment Spec In Lab Deshaun Noble MD HEMATOLOGY ORDERABL ES [facility] [place] [address] * (ABNORMAL) Hemoglobin A1c (02/28/2017 9:23 PM EDT) Hemoglobin A1c 5.8(H) 4.3 - 5.6 % [facility] Comment: Reference Range: 4.3 [...] Mellitus, Diabetes Care 2013; 36: Suppl. 1, B67-40 Estimated Average Glucose 120 mg/dL [facility] Comment: eAG equivalents for [...] into estimated average glucose values. ??Diabetes Care 2008:31(8):7753-5819. Blood specimen (specimen) 02/28/2017 9:23 PM EDT 02/28/2017 9:32 PM EDT Narrative Resulting Agency Comment Spec In Lab Deshaun Noble MD CHEMISTRY ORDERABLE S [facility] [place] [address] * (ABNORMAL) Basic Metabolic Panel (non-fasting) (02/28/2017 9:23 PM EDT) Glucose 158 65 - 199 mg/dL [facility] Comment:Diabetes: >=200 mg/d L plus symptoms Blood Urea Nitrogen 7(L) 8 - 18 mg/dL [facility] Creatinine 0.70 0.70 - 1.20 mg/dL [facility] Comment: Please note that [...] questions. Chloride 104 98 - 107 mmol/L [facility] Carbon Dioxide 20(L) 22 - 31 mmol/L [facility] Anion Gap 15 5 - 15 mmol/L [facility] Calcium 9.2 8.5 - 10.5 mg/dL [facility] Est Glomerular Filtration Rate >60 >=60 [facility] Comment: This estimated GFR [...] the following links into your internet browser. [email or web address] Blood specimen (specimen) 02/28/2017 9:23 PM EDT 02/28/2017 9:32 PM EDT Narrative Resulting Agency Comment Spec In Lab Deshaun Noble MD CHEMISTRY ORDERABLE S Performing Organization Address [facility] Co de Phone Number [facility] [place] [place] [address] * POCT Glucose (02/25/2017 7:36 AM EDT) Glucose, POC 127 65 - 199 mg/dL [facility] Comment: Supplemental ranges: <140 mg/dL before meals <180 mg/dL all other times of the day Blood specimen (specimen) 02/25/2017 7:36 AM EDT 02/25/2017 7:36 AM EDT Teagan Vyas MD POINT OF CARE TEST O ERIN Performing Organization Address [facility] Co de Phone Number [facility] [place] [address] * POCT Glucose (02/24/2017 7:32 AM EDT) Glucose, POC 148 65 - 199 mg/dL [facility] Comment: Supplemental ranges: <140 mg/dL before meals <180 mg/dL all other times of the day Blood specimen (specimen) 02/24/2017 7:32 AM EDT 02/24/2017 7:32 AM EDT Teagan Vyas MD POINT OF CARE TEST O ERIN Performing Organization Address City/[facility]/ZIP Co de Phone Number [facility] [place] [address] * (ABNORMAL) Hepatic Function Panel (02/22/2017 11:40 AM EDT) [facility] Protein, Total 7.3 6.1 - 8.0 gm/dL [facility] Albumin 3.9 3.2 - 5.2 gm/dL [facility] Aspartate Aminotransferase 31(H) 0 - 30 unit/L [facility] Alanine Aminotransferase 35(H) 0 - 30 unit/L [facility] Alkaline Phosphatase 89 40 - 104 unit/L [facility] Bilirubin, Total Not Perf 0.2 - 1.3 mg/dL [facility] Comment:Analyte stability ex ceeded; test not performed. Bilirubin, Direct Not Perf 0.0 - 0.3 mg/dL [facility] Comment:Analyte stability ex ceeded; test not performed. Blood specimen (specimen) Venous Draw / Unknown 02/22/2017 11:40 AM EDT 02/22/2017 12:10 PM EDT Narrative Resulting Agency Comment Spec In Lab Teagan Vyas MD CHEMISTRY ORDERABLES [facility] [place] [address] * Scan, Peripheral Blood (02/22/2017 11:40 AM EDT) [facility] Plat estimate Increased [facility] RBC Morphology Normal [facility] Plat, Giant Less than 1 /HPF [facility] Blood specimen (specimen) 02/22/2017 11:40 AM EDT 02/22/2017 11:48 AM EDT Narrative Resulting Agency Comment Spec In Lab Teagan Vyas MD HEMATOLOGY ORDERABLE S [facility] [place] [address] * (ABNORMAL) Differential, Automated (02/22/2017 11:40 AM EDT) [facility] Neutrophil % 75.4 % [facility] Neutrophil Absolute 6.80(H) 1.70 - 6.10 x10(3)/[facility] Lymph % 16.9 % [facility] Lymphocytes Abs 1.5 0.9 - 3.2 x10(3)/[facility] Monocyte % 4.5 % [facility] Monocyte Abs 0.4 0.3 - 0.9 x10(3)/[facility] Eos % 2.3 % [facility] Eosinophils Abs 0.2 0.0 - 0.4 x10(3)/[facility] Basophil % 0.3 % [facility] Baso Absolute 0.0 0.0 - 0.1 x10(3)/[facility] Immature Gran % 0.60 % [facility] Comment: Immature granulocytes(IG's)percentage and absolute count will include metamyelocytes, myelocytes, and promyelocytes. Blood smears from CBCs yielding IG's will be scanned manually for concordance. If this scan disagrees with the automated IG or if promyelocytes are noted, a manual differential will be performed. Immature Gran Absolute 0.05(H) 0.00 - 0.04 x10(3)/[facility] Blood specimen (specimen) 02/22/2017 11:40 AM EDT 02/22/2017 11:48 AM EDT Narrative Resulting Agency Comment Spec In Lab Teagan Vyas MD HEMATOLOGY ORDERABLE S [facility] [place] [address] * (ABNORMAL) Hemogram (02/22/2017 11:40 AM EDT) White Blood Cell 9.0 4.0 - 9.5 x10(3)/[facility] Red Blood Cell 3.92(L) 4.00 - 5.21 x10(6)/mc L [facility] Hemoglobin 12.3 11.7 - 15.5 gm/dL [facility] Hematocrit 35.5(L) 35.7 - 45.8 % [facility] Mean Cell Volume 90.6 82.6 - 94.4 fL [facility] Mean Cell Hemoglobin 31.4 27.1 - 32.0 pg [facility] Mean Cell Hemoglobin Concentration 34.6 31.7 - 35.0 gm/dL [facility] Platelet 385(H) 145 - 357 x10(3)/mc L [facility] RDW Standard Deviation 43.3 37.0 - 46.0 fL [facility] RDW coefficient of variation 13.1 11.5 - 14.1 % [facility] Mean Platelet Volume 9.6 7.6 - 12.9 fL [facility] NRBC% auto 0.0 % [facility] NRBC Absolute 0.000 0.000 - 0.000 x10(3)/mc L [facility] Blood specimen (specimen) 02/22/2017 11:40 AM EDT 02/22/2017 11:48 AM EDT Narrative Resulting Agency Comment Spec In Lab Teagan Vyas MD HEMATOLOGY ORDERABLE S [facility] [place] [address] * (ABNORMAL) Basic Metabolic Panel (non-fasting) (02/22/2017 11:40 AM EDT) Glucose 190 65 - 199 mg/dL [facility] Comment:Diabetes: >=200 mg/d L plus symptoms Blood Urea Nitrogen 6(L) 8 - 18 mg/dL [facility] Creatinine 0.74 0.70 - 1.20 mg/dL [facility] Comment: Please note that [...] questions. Chloride 103 98 - 107 mmol/L [facility] Carbon Dioxide 20(L) 22 - 31 mmol/L [facility] Anion Gap 18(H) 5 - 15 mmol/L [facility] Calcium 9.3 8.5 - 10.5 mg/dL [facility] Est Glomerular Filtration Rate >60 >=60 [facility] Comment: This estimated GFR [...] the following links into your internet browser. [email or web address] Blood specimen (specimen) 02/22/2017 11:40 AM EDT 02/22/2017 11:48 AM EDT Narrative Resulting Agency Comment Spec In Lab Teagan Vyas MD CHEMISTRY ORDERABLES [facility] [place] [address] * TSH (02/22/2017 11:40 AM EDT) Thyroid Stimulating Hormone 2.33 0.27 - 4.20 mlU/ML [facility] Blood specimen (specimen) 02/22/2017 11:40 AM EDT 02/22/2017 11:48 AM EDT Narrative Resulting Agency Comment Spec In Lab Teagan Vyas MD CHEMISTRY ORDERABLES [facility] [place] [address] * EKG 12 Lead (02/22/2017 8:41 AM EDT) Ventricular rate 94 BPM MUSE SYSTEM Atrial Rate 94 BPM MUSE SYSTEM P-R Interval 150 ms MUSE SYSTEM QRS Duration 80 ms MUSE SYSTEM Q-T Interval 374 ms MUSE SYSTEM QTC Calculated (Bezet) 467 ms MUSE SYSTEM Calculated P [place] 51 degrees MUSE SYSTEM Calculated R [place] 46 degrees MUSE SYSTEM Calculated T [place] 33 degrees MUSE SYSTEM INTERPRETATION Sinus rhythm [...] patch documented in this encounter Care Teams Food [employer] Beverage Out[employer] Manager Relationship Specialty Start Date End Date None None PCP - General 12/09/16 02/27/18 documented as of this encounter
--- OUTSIDE RECORDS SUMMARY | 2024-06-15 22:25 | XMS_ITS | Encounter Summary ---
Author Organization [facility] [place] [address] Care Team Providers Care Health And Wellness Manager Name Role Phone Lidia Benson APRN Primary Care Provider + [phone] Encounter Details Date Type Department Care Team (Late st Contact Info) Description 06/20/2018 Telephone Gastroenterology at [facility] [place] [phone] Shanon Galindo Social History Tobacco Use Types [...] filedocumented in this encounter Care Teams Health And Wellness Manager Relationship Specialty Start Date End Date Lidia Benson APRN [address] [place], [place] [id number] PCP - General Family Medicine 02/28/18 08/23/19 documented as of this encounter
--- OUTSIDE RECORDS SUMMARY | 2024-06-15 22:25 | XMS_ITS | Encounter Summary ---
Author Organization [facility] [place] [address] Care Team Providers Care [employer] Internship Name Role Phone Lidia Benson APRN Primary Care Provider + [phone] Encounter Details Date Type Department Care Team (Late st Contact Info) Description 06/30/2018 Telephone G[facility]enterology at [facility] [place] [phone] Paula Alcala Social History Tobacco [...] - 06/30/2018 3:33 PM EDT Shaneka Samano [id number] Diagnosis: Upper endoscopy /Upper EUS/Liver Biopsy and Colonoscopy 1. Have you ever had a colonoscopy before? [] YES [x] NO If Yes, Date of Last [place]: If yes, did you have any problems with the procedure? [] YES [] NO Explain: What type of sedation was used: 2. Do you take any Blood Thinners? [] YES [x] NO If Yes, type: 3. Do you have a Pacemaker or Defibrillator device? [] YES [x] NO If Yes send inHope Street Media message to [employer] ENDO DEVICE CHECK 4. Are you a [...] on filedocumented in this encounter Care Teams [employer] Relationship Specialty Start Date End Date Lidia Benson APRN [address] [place] [address] PCP - General Family Medicine 02/28/18 08/23/19 documented as of this encounter
--- OUTSIDE RECORDS SUMMARY | 2024-06-15 22:25 | XMS_ITS | Encounter Summary ---
Author Organization [facility] [place] [address] Care Team Providers Care Field Examiner Name Role Phone Lidia Benson APRN Primary Care Provider + [phone] Reason for Referral * Consultation (Routine) - Closed Specialty Diagnoses / Procedures Referred By Mateusz ibarra Referred To Contact Gastroenterology Diagnoses Elevated LFTs Upper abdominal pain Irritable bowel syndrome with diarrhea Hematochezia Angela Pizarro APRN [address] [place] [address] [facility] [place] [facility] [address] [place] [address] Referral ID Status Reason Start Date Expiration Date V isits Requested Visits Authorized [id number] Closed Consult, Test & Treat 06/13/2018 06/13/2019 1 1 Reason for Visit * Reason Comments GI Problem Encounter Details Date Type Department Care Team (Late st Contact Info) Description 06/13/2018 2:00 PM EDT Office Visit [place] [address] Angela Pizarro APRN [address] [place] [address] Elevated LFTs; Upper abdominal pain; [...] time to identify triggers. ADDITIONAL RESOURCES: *[facility] has a wonderful kee available for this diet *We also recommend a blog called [email or web address]. Follow up appointment 2-3 weeks after upper endoscopy and colonoscopy documented in this encounter Progress Notes * Angela Pizarro APRN - 06/13/2018 2:00 PM EDT BUSINESS LINE MANAGER: Angela Pizarro APRN PCP: Lidia Benson APRN [...] Denies straining and difficulty emptying. Stools are [place] type 4/5. Denies mucus in stool. Feels [...] by mouth., Disp: , Rfl: ??? lancets [facility], by [facility].(Non-Drug; Combo Route) route., Disp: , Rfl: ??? Blood-Glucose Meter [facility], by [facility].(Non-Drug; Combo Route) route., Disp: , Rfl: ??? [...] Component Value Date TSH 2.33 02/22/2017 06/07/18 ([facility]); Platelets 262 AST 175 ALT 130 [...] 3:01 PM Section of Gastroenterology & Hepatology [facility] documented in this encounter Miscellaneous Notes * [...] PM EDT Upper abdominal pain Elevated LFTs [id number] Routine 06/13/2018 3 :46 PM EDT Elevated [...] pain Elevated LFTs HIV SCREEN, 4TH GENERATION ([facility]/CGP/APD/NLH) Routine 06/13/2018 3:46 PM EDT Upper abdominal [...] in the ? S? phenotype ([id number]:c.863 A>T; [id number]) and the ? Z? phenotype (c. 1096G>A; [id number]) are amplified and genotyped by two separate [...] [facility] [facility] [employer] (CGAT) Laboratory at [facility]. It has not been cleared or approved by the FDA. The laboratory is regulated under CLIA as qualified to perform high-complexity testing. This test is used for clinical purposes. It should not be regarded as investigational or for research. [facility] Comment: [VERIFIED DATE]06.19.18 Verified By:Karlie Abarca (Electronic Signature) Blood specimen (specimen) 06/13/2018 3:46 PM EDT 06/14/2018 9:42 AM EDT Narrative Resulting Agency Comment Spec In Lab Angela Pizarro BEAM DOFFER CHEMISTRY ORDERA BLES [facility] [place] [address] * (ABNORMAL) A1AT Serum Concentration (06/13/2018 3:46 PM EDT) A1AT 77(L) 90 - 200 mg/dL [facility] Comment: To convert [id number] to SI unit (umol/L), multiply result (mg/dL) by 0.184. Blood specimen (specimen) 06/13/2018 3:46 PM EDT 06/13/2018 3:50 PM EDT Narrative Resulting Agency Comment Spec In Lab Angela Lynch Juarez BEAM DOFFER CHEMISTRY ORDERA BLES Performing Organization Address City/[facility]/[place] [address] * (ABNORMAL) Differential, Automated (06/13/2018 3:46 PM EDT) Neutrophil % 59.3 % [facility] Neutrophil Absolute 5.29 1.70 - 6.10 x10(3)/mc L [facility] Lymph % 29.7 % [facility] Lymphocytes Abs 2.6 0.9 - 3.2 x10(3)/ L [facility] Monocyte % 7.0 % [facility] Monocyte Abs 0.6 0.3 - 0.9 x10(3)/[facility] Eos % 2.1 % [facility] Eosinophils Abs 0.2 0.0 - 0.4 x10(3)/ L [facility] Basophil % 0.6 % [facility] Baso Absolute 0.0 0.0 - 0.1 x10(3)/ L [facility] Immature Gran % 1.30 % [facility] Comment: Immature granulocytes(IG's)percentage and absolute count will include metamyelocytes, myelocytes, and promyelocytes. Blood smears from CBCs yielding IG's will be scanned manually for concordance. If this scan disagrees with the automated IG or if promyelocytes are noted, a manual differential will be performed. Immature Gran Absolute 0.12(H) 0.00 - 0.04 x10(3)/ L [facility] Blood specimen (specimen) 06/13/2018 3:46 PM EDT 06/13/2018 3:50 PM EDT Narrative Resulting Agency Comment Spec In Lab Angela Lynch Juarez BEAM DOFFER HEMATOLOGY ORDER MICHEL Performing Organization Address City/[facility]/ZIP Co de Phone Number [facility] [place] [address] * (ABNORMAL) Hemogram (06/13/2018 3:46 PM EDT) White Blood Cell 8.9 4.0 - 9.5 x10(3)/[facility] Red Blood Cell 4.50 4.00 - 5.21 x10(6)/[facility] Hemoglobin 14.9 11.7 - 15.5 gm/dL [facility] Hematocrit 41.8 35.7 - 45.8 % [facility] Mean Cell Volume 92.9 82.6 - 94.4 fL [facility] Mean Cell Hemoglobin 33.1(H) 27.1 - 32.0 pg [facility] Mean Cell Hemoglobin Concentration 35.6(H) 31.7 - 35.0 gm/dL [facility] Platelet 274 145 - 357 x10(3)/[facility] RDW Standard Deviation 41.0 37.0 - 46.0 [facility] RDW coefficient of variation 11.9 11.5 - 14.1 % [facility] Mean Platelet Volume 9.5 7.6 - 12.9 fL [facility] NRBC% auto 0.0 % [facility] NRBC Absolute 0.000 0.000 - 0.000 x10(3)/[facility] Blood specimen (specimen) 06/13/2018 3:46 PM EDT 06/13/2018 3:50 PM EDT Narrative Resulting Agency Comment Spec In Lab Angela Pizarro BEAM DOFFER HEMATOLOGY ORDER MICHEL [facility] [place] [address] * IgA (06/13/2018 3:46 PM EDT) IgA 287 70 - 400 mg/dL [facility] Blood specimen (specimen) 06/13/2018 3:46 PM EDT 06/13/2018 3:50 PM EDT Narrative Resulting Agency Comment Spec In Lab Angela Braxtonreganteena BEAM DOFFER CHEMISTRY ORDERA BLES [facility] [place] [address] * Tissue transglutaminase, IgA (06/13/2018 3:46 PM EDT) [facility] TTG IgA Ab <1.2 <4.0 (Negative) unit/mL [facility] Comment: Test Performed by: [address] [address] Blood specimen (specimen) 06/13/2018 3:46 PM EDT 06/14/2018 8:50 AM EDT Narrative Resulting Agency Comment Spec In Lab Angela Braxtonkristine AUGUSTINN IMMUNOLOGY ORDER MICHEL Performing Organization Address [facility]/ZIP Co de Phone Number [facility] [place] [address] * Ceruloplasmin (06/13/2018 3:46 PM EDT) [facility] Ceruloplasmin 25.0 16.0 - 45.0 mg/dL [facility] Blood specimen (specimen) 06/13/2018 3:46 PM EDT 06/13/2018 3:50 PM EDT Narrative Resulting Agency Comment Spec In Lab Angela Braxtonkristine AUGUSTINN CHEMISTRY ORDERA BLES Performing Organization Address City/[facility]/ZIP Co de Phone Number [facility] [place] [address] * (ABNORMAL) Ferritin (06/13/2018 3:46 PM EDT) [facility] Ferritin 220(H) 15 - 150 ng/mL [facility] Comment: Pediatric reference ranges not verified at [facility], interpret with caution. Reference ranges for females greater than 50 years of age approach values for men, i.e., 30-400 ng/mL. Blood specimen (specimen) 06/13/2018 3:46 PM EDT 06/13/2018 3:50 PM EDT Narrative Resulting Agency Comment Spec In Lab Angela Pizarro BEAM DOFFER CHEMISTRY ORDERA BLES Performing Organization Address [facility] Co de Phone Number [facility] [place] [address] * Iron and TIBC (06/13/2018 3:46 PM EDT) Iron 73 30 - 150 mcg/dL [facility] TIBC 334 250 - 450 mcg/dL [facility] Iron Saturation 22 20 - 50 % [facility] Blood specimen (specimen) 06/13/2018 3:46 PM EDT 06/13/2018 3:50 PM EDT Narrative Resulting Agency Comment Spec In Lab Angela Pizarro BEAM DOFFER CHEMISTRY ORDERA BLES Performing Organization Address [facility] Co de Phone Number [facility] [place] [address] * Protein Electrophoresis, serum (06/13/2018 3:46 PM EDT) Total Prot Electrophoresis 6.8 6.1 - 8.0 gm/dL [facility] Albumin Electrophoresis 4.29 3.60 - 6.00 gm/dL [facility] Alpha 1 Globulin 0.12 0.10 - 0.30 gm/dL [facility] Alpha 2 Globulin 0.69 0.40 - 0.90 gm/dL [facility] Beta Globulin 1.00 0.50 - 1.00 gm/dL [facility] Gamma Globulin 0.70 0.50 - 1.30 gm/dL [facility] M1 Band None Detected None Detected [facility] Blood specimen (specimen) 06/13/2018 3:46 PM EDT 06/13/2018 3:50 PM EDT Narrative Resulting Agency Comment Spec In Lab Angela Pizarro BEAM DOFFER CHEMISTRY ORDERA BLES Performing Organization Address [facility] Co de Phone Number [facility] [place] [address] * IgG (06/13/2018 3:46 PM EDT) Immunoglobulin G 838 700 - 1,600 mg/dL [facility] Blood specimen (specimen) 06/13/2018 3:46 PM EDT 06/13/2018 3:50 PM EDT Narrative Resulting Agency Comment Spec In Lab Angela Pizarro APRN CHEMISTRY ORDERA BLES Performing Organization Address [facility] Co de Phone Number [facility] [place] [address] * Mitochondrial Antibody, M2 (06/13/2018 3:46 PM EDT) Mitochon Ab (JANUARY) <0.1 <0.1 (Negative) U [facility] Comment: Test Performed by: [facility] - [address] [address] Blood specimen (specimen) 06/13/2018 3:46 PM EDT 06/14/2018 8:50 AM EDT Narrative Resulting Agency Comment Spec In Lab Angela Braxtonreganteena SONG LAB SEND OUT ORD ERABLES Performing Organization Address [facility] Co de Phone Number [facility] [place] [address] * Smooth Muscle Antibody (06/13/2018 3:46 PM EDT) Sm Muscle Ab (JANUARY) Negative Negative M [facility] Comment: ADDITIONAL INFORMATION This test was developed and its performance characteristics determined by [facility] in a manner consistent with CLIA requirements. This test has not been cleared or approved by the U.S. Food and Drug Administration. Test Performed by: [facility] - [address] [address] Blood specimen (specimen) 06/13/2018 3:46 PM EDT 06/14/2018 8:50 AM EDT Narrative Resulting Agency Comment Spec In Lab Angela Pizarro APRN LAB SEND OUT ORD ERABLES [facility] [place] [address] * LUTHER (06/13/2018 3:46 PM EDT) LUTHER Neg Neg [facility] Blood specimen (specimen) 06/13/2018 3:46 PM EDT 06/14/2018 7:40 AM EDT Narrative Resulting Agency Comment Spec In Lab Angela Pizarro APRN LAB SEND OUT ORD ERABLES Performing Organization Address [facility]/ZIP Co de Phone Number [facility] [address] * HIV Screen, 4th Generation (06/13/2018 3:46 PM EDT) [facility] HIV Ab/Ag Screen Negative Negative [facility] Comment: This 4th Generation HIV [...] APRN CHEMISTRY ORDERA BLES Performing Organization Address City/[facility]/ZIP Co de Phone Number [facility] [address] * Hepatitis C Antibody (06/13/2018 3:46 PM EDT) Hepatitis C Antibody Negative Negative [facility] Blood specimen (specimen) 06/13/2018 3:46 PM EDT 06/13/2018 3:50 PM EDT Narrative Resulting Agency Comment Spec In Lab Angela Pizarro BEAM DOFFER CHEMISTRY ORDERA BLES Performing Organization Address City/[facility]/ZIP Co de Phone Number [facility] [address] * Hepatitis B Core Antibody, Total (06/13/2018 3:46 PM EDT) Hepatitis B Core Antibody Negative Negative [facility] Blood specimen (specimen) 06/13/2018 3:46 PM EDT 06/13/2018 3:50 PM EDT Narrative Resulting Agency Comment Spec In Lab Angela Pizarro BEAM DOFFER CHEMISTRY ORDERA BLES Performing Organization Address City/[facility]/ZIP Co de Phone Number [facility] [place] [address] * Hepatitis B Surface Antigen (06/13/2018 3:46 PM EDT) Hepatitis B Surface Antigen Negative Negative [facility] Blood specimen (specimen) 06/13/2018 3:46 PM EDT 06/13/2018 3:50 PM EDT Narrative Resulting Agency Comment Spec In Lab Angela Pizarro BEAM DOFFER CHEMISTRY ORDERA BLES Performing Organization Address City/[facility]/ZIP Co de Phone Number [facility] [place] [address] * Hepatitis B Surface Antibody (06/13/2018 3:46 PM EDT) Hepatitis B Surface Antibody, Quantitative 231.5 IU/L [facility] Comment: HepB Surface Ab Quant: Unvaccinated: < 8.5 IU/L Vaccinated: > 11.5 IU/L Hepatitis B Surface Antibody Positive [facility] Comment: Patient is considered to be immune to HBV infection. Expected Results: Vaccinated: Positive Unvaccinated: Negative Blood specimen (specimen) 06/13/2018 3:46 PM EDT 06/13/2018 3:50 PM EDT Narrative Resulting Agency Comment Spec In Lab Angela Pizarro BEAM DOFFER CHEMISTRY ORDERA BLES Performing Organization Address [facility] Co de Phone Number [facility] [place] [address] * Hepatitis A Antibody, Total (06/13/2018 3:46 PM EDT) Hepatitis A ANTIBODY, TOTAL Negative Negative [facility] Blood specimen (specimen) 06/13/2018 3:46 PM EDT 06/13/2018 3:50 PM EDT Narrative Resulting Agency Comment Spec In Lab Angela Pizarro BEAM DOFFER CHEMISTRY ORDERA BLES Performing Organization Address [facility] Co de Phone Number [facility] [place] [address] * (ABNORMAL) Comprehensive metabolic panel (non-fasting) (06/13/2018 3:46 PM EDT) Glucose 273(H) 65 - 199 mg/dL [facility] Comment:Diabetes: >=200 mg/d L plus symptoms Blood Urea Nitrogen 10 8 - 18 mg/dL [facility] Creatinine 0.68(L) 0.70 - 1.20 mg/dL [facility] Sodium 136 135 - 145 mmol/L [facility] Potassium 3.8 3.5 - 5.0 mmol/L [facility] Comment: Please note: ??Patients with WBC >100,000 may have falsely elevated Potassium levels. ??For accurate Potassium quantification in these patients send serum separator tube (gold top) for subsequent determinations. ??Contact the Clinical Chemistry Laboratory if there are any questions. Chloride 100 98 - 107 mmol/L [facility] Carbon Dioxide 19(L) 22 - 31 mmol/L [facility] Anion Gap 17(H) 5 - 15 mmol/L [facility] Calcium 9.2 8.5 - 10.5 mg/dL [facility] Protein, Total 6.9 6.1 - 8.0 gm/dL [facility] Albumin 4.0 3.2 - 5.2 gm/dL [facility] Aspartate Aminotransferase 90(H) 0 - 30 unit/L [facility] Alanine Aminotransferase 109(H) 0 - 30 unit/L [facility] Alkaline Phosphatase 190(H) 40 - 104 unit/L [facility] Bilirubin, Total 0.2 0.2 - 1.3 mg/dL [facility] Est Glomerular Filtration Rate 112 >=60 mL/min/1. 73 m?? [facility] Comment: The eGFR was calculated using the CKD-EPI equation. As with all creatinine based estimates of kidney function, eGFR values calculated with the CKD-EPI equation are not accurate in patients with acute kidney failure, extremes of body mass or the acutely ill. http://[employer]co Pol[employer] Projectnkf eGFR 130 >=60 mL/min/1. 73 m?? [facility] Comment: The eGFR was calculated using the CKD-EPI equation. As with all creatinine based estimates of kidney function, eGFR values calculated with the CKD-EPI equation are not accurate in patients with acute kidney failure, extremes of body mass or the acutely ill. http://[employer]/DHMCnkf Blood specimen (specimen) 06/13/2018 3:46 PM EDT 06/13/2018 3:50 PM EDT Narrative Resulting Agency Comment Spec In Lab Angela Pizarro BEAM DOFFER CHEMISTRY ORDERA BLES [facility] [place] [address] * [id number] (06/13/2018 3:36 PM EDT) Narrative Jimmy Calvillo PA - 06/13/2018 3:36 PM EDT Jimmy Calvillo PA ? 06/13/2018 ??3:36 PM [facility] Liver Fibrosis Assessment Report Indication: ?? Fatty liver, abnormal LFTs Performed by: ??[facility] Procedure: Vibration Controlled Transient Elastography (VCTE) or Fibroscan [place] Protocol: Patient's identity, procedure and site were [...] stool documented in this encounter Care Teams Field Examiner Relationship Specialty Start Date End Date Lidia Benson APRN [address] [place] [address] PCP - General Family Medicine 02/28/18 08/23/19 documented as of this encounter
--- OUTSIDE RECORDS SUMMARY | 2024-06-15 22:25 | XMS_ITS | Encounter Summary ---
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 Comment: The cocaine metabolites screen detects benzoylecgonine (Cocaine Metabolite) at concentrations >150 ng/mL. Qualitative Drug screens are reported as ? None Detected? or ? Presumptive Positive? as the results are not routinely confirmed by highly-specific methods. As with any screen occasional false positive results from cross-reacting substances can occur. Not for Medico-Legal Purposes. Methamphetamines Screen, Urine None Detected None Detected [facility] Comment: The methamphetamine screen detects d-methamphetamine at concentrations >500 ng/mL. Qualitative Drug screens are reported as ? None Detected? or ? Presumptive Positive? as the results are not routinely confirmed by highly-specific methods. As with any screen occasional false positive results from cross-reacting substances can occur. Not for Medico-Legal Purposes. [place] Opiates Screen None Detected None Detected [facility] Comment: The opiates screen detects [...] [place] Amphetamines Screen None Detected None Detected [facility] [...] [place] Benzodiazepines Screen None Detected None Detected [facility] Comment: The benzodiazepines screen detects [...] [place] Tricyclics Screen None Detected None Detected [facility] Comment: The tricyclics screen detects [...] [place] Methadone Screen None Detected None Detected [facility] [...] [place] Barbiturates Screen None Detected None Detected [facility] [...] [place] Oxycodone Srceen None Detected None Detected [facility] [...] Propoxyphene Screen, Urine None Detected None Detected [facility] [...] [place] Buprenorphine Screen None Detected None Detected [facility] Comment: The buprenorphine screen detects buprenorphine at concentrations >10 ng/mL. Qualitative Drug screens are reported as ? None Detected? or ? Presumptive Positive? as the results are not routinely confirmed by highly-specific methods. As with any screen occasional false positive results from cross-reacting substances can occur. Not for Medico-Legal Purposes. [place] Adulterants Screen None Detected None Detected [facility] Comment: No adulteration or dilution of this urine sample was detected. All urine samples submitted for urine drugs of abuse analysis are tested for Creatinine and pH and for the presence of oxidants, nitrites, chromate and aldehydes (glutaraldehyde). Urine specimen (specimen) 02/19/2017 8:51 PM EDT 02/19/2017 9:01 PM EDT Narrative Resulting Agency Comment Spec In Lab Eva Lal MD URINE ORDERABLES [facility] [place] [address] * XR Chest PA or AP 1 [...] [facility] Recheck Order Order Placed [facility] AB[facility]H Type Recheck Complete [facility] Blood specimen (specimen) 02/19/2017 8:44 PM EDT 02/19/2017 8:55 PM EDT Narrative Resulting Agency Comment Spec In Lab Eva Lal MD BLOOD BANK LAB ORDER MICHEL [facility] [place] [address] * (ABNORMAL) Differential, Automated (02/19/2017 8:44 PM EDT) Neutrophil % 65.7 % [facility] Neutrophil Absolute 10.73(H) 1.70 - 6.10 x10(3)/mc L [facility] Lymph % 27.2 % [facility] Lymphocytes Abs 4.4(H) 0.9 - 3.2 x10(3)/mc L [facility] Monocyte % 4.7 % [facility] Monocyte Abs 0.8 0.3 - 0.9 x10(3)/mc L [facility] Eos % 1.8 % [facility] Eosinophils Abs 0.3 0.0 - 0.4 x10(3)/[facility] Basophil % 0.2 % [facility] Baso Absolute 0.0 0.0 - 0.1 x10(3)/[facility] Immature Gran % 0.40 % [facility] Comment: Immature granulocytes(IG's)percentage and absolute count will include metamyelocytes, myelocytes, and promyelocytes. Blood smears from CBCs yielding IG's will be scanned manually for concordance. If this scan disagrees with the automated IG or if promyelocytes are noted, a manual differential will be performed. Immature Gran Absolute 0.07(H) 0.00 - 0.04 x10(3)/[facility] Blood specimen (specimen) 02/19/2017 8:44 PM EDT 02/19/2017 8:50 PM EDT Narrative Resulting Agency Comment Spec In Lab Eva Lal MD HEMATOLOGY ORDERABLE S [facility] [place] [address] * (ABNORMAL) Hemogram (02/19/2017 8:44 PM EDT) White Blood Cell 16.3(H) 4.0 - 9.5 x10(3)/[facility] Red Blood Cell 4.38 4.00 - 5.21 x10(6)/[facility] Hemoglobin 14.1 11.7 - 15.5 gm/dL [facility] Hematocrit 39.7 35.7 - 45.8 % [facility] Mean Cell Volume 90.6 82.6 - 94.4 fL [facility] Mean Cell Hemoglobin 32.2(H) 27.1 - 32.0 pg [facility] Mean Cell Hemoglobin Concentration 35.5(H) 31.7 - 35.0 gm/dL [facility] Platelet 412(H) 145 - 357 x10(3)/mc L [facility] RDW Standard Deviation 43.8 37.0 - 46.0 fL [facility] RDW coefficient of variation 13.2 11.5 - 14.1 % [facility] Mean Platelet Volume 9.5 7.6 - 12.9 fL [facility] NRBC% auto 0.0 % [facility] NRBC Absolute 0.000 0.000 - 0.000 x10(3)/mc L [facility] Blood specimen (specimen) 02/19/2017 8:44 PM EDT 02/19/2017 8:50 PM EDT Narrative Resulting Agency Comment Spec In Lab Eva Lal MD HEMATOLOGY ORDERABLE S Performing Organization Address [facility] Co de Phone Number [facility] [place] [address] * Antibody screen (02/19/2017 8:44 PM EDT) Ab Screen Interp Negative [facility] Expires at [id number] on: 02/22/2017 [facility] Blood specimen (specimen) 02/19/2017 8:44 PM EDT 02/19/2017 8:55 PM EDT Narrative Resulting Agency Comment Spec In Lab Eva Lal MD BLOOD BANK LAB ORDER MICHEL Performing Organization Address City/[facility]/ZIP Co de Phone Number [facility] [place] [address] * ABO/Rh Typing (02/19/2017 8:44 PM EDT) ABORH Type O Pos [facility] Blood specimen (specimen) 02/19/2017 8:44 PM EDT 02/19/2017 8:55 PM EDT Narrative Resulting Agency Comment Spec In Lab Eva Lal MD BLOOD BANK LAB ORDER MICHEL Performing Organization Address City/State/[facility] Co de Phone Number [facility] [place] [address] * Ethanol Level (02/19/2017 8:44 PM EDT) Ethanol <100 mg/L [facility] CHEMISTRY ORDERABLES Performing Organization Address [facility] de Phone Number [facility] [place] [address] * APTT (02/19/2017 8:44 PM EDT) Partial Thromboplastin Time 25 25 - 35 sec [facility] Comment: The recommended therapeutic range for full dose, unfractionated heparin at [facility] is 80 ? 114 seconds. The use of the anti-Xa (heparin) level rather than the PTT is recommended for monitoring anticoagulation intensity in critically ill patients receiving unfractionated heparin by continuous IV infusion. Blood specimen (specimen) 02/19/2017 8:44 PM EDT 02/19/2017 8:50 PM EDT Narrative Resulting Agency Comment Spec In Lab Eva Lal MD HEMATOLOGY ORDERABLE S Performing Organization Address [facility] Co de Phone Number [facility] [place] [address] * Prothrombin Time (02/19/2017 8:44 PM EDT) Prothrombin Time 12.8 12.0 - 15.0 sec [facility] Comment: An INR <2.0 indicates [...] International Normalization Ratio 0.9 0.9 - 1.1 [facility] Blood specimen (specimen) 02/19/2017 8:44 PM EDT 02/19/2017 8:50 PM EDT Narrative Resulting Agency Comment Spec In Lab Eva Lal MD HEMATOLOGY ORDERABLE S [facility] [place] [address] * (ABNORMAL) Basic Metabolic Panel (non-fasting) (02/19/2017 8:44 PM EDT) Glucose 176 65 - 199 mg/dL [facility] Comment:Diabetes: >=200 mg/d L plus symptoms Blood Urea Nitrogen 9 8 - 18 mg/dL [facility] Creatinine 0.88 0.70 - 1.20 mg/dL [facility] Comment: Please note that the pediatric reference intervals supplied above were not validated at [facility]. Results from pediatric patients should be interpreted in conjunction to the patient's age, height and muscle mass. Sodium 140 135 - 145 mmol/L [facility] Potassium Not Perf 3.5 - 5.0 mmol/L [facility] Comment: Unable to quantitate due to sample hemolysis. ??Sample redraw suggested. Called to Bernice (ED), 02/19/17 21:15 Please note: ??Patients with WBC >100,000 may have falsely elevated Potassium levels. ??For accurate Potassium quantification in these patients send serum separator tube (gold top) for subsequent determinations. ??Contact the Clinical Chemistry Laboratory if there are any questions. Chloride 102 98 - 107 mmol/L [facility] Carbon Dioxide 21(L) 22 - 31 mmol/L [facility] Anion Gap 17(H) 5 - 15 mmol/L [facility] Calcium 8.9 8.5 - 10.5 mg/dL [facility] Est Glomerular Filtration Rate >60 >=60 [facility] Comment: This estimated GFR (eGFR) [...] the following links into your internet browser. [email or web address] [email or web address] Blood specimen (specimen) 02/19/2017 8:44 PM EDT 02/19/2017 8:50 PM EDT Narrative Resulting Agency Comment Spec In Lab Eva Lal MD CHEMISTRY ORDERABLES Performing Organization Address City/[facility]/ZIP Co de Phone Number [facility] [place] [address] * (ABNORMAL) Lactate, whole blood, send to lab (02/19/2017 8:37 PM EDT) Lactate WB 3.3(H) 0.5 - 2.2 mmol/L [facility] Blood specimen (specimen) Venous Draw / Unknown 02/19/2017 8:37 PM EDT 02/19/2017 8:56 PM EDT Narrative Resulting Agency Comment Spec In Lab Kemal Arellano MD CHEMISTRY ORDERABLES [facility] [place] [address] documented in this encounter Visit Diagnoses Diagnosis [...] patient unable to take PO, may give AR if ordered, Routine fentaNYL 50mcg/mL injection 50 [...] patient unable to take PO, may give AR if ordered, Routine fentaNYL 50mcg/mL injection (CANCELED) [...] Routine documented in this encounter Care Teams Support Worker Relationship Specialty Start Date End Date None None PCP - General 12/09/16 02/27/18 documented as of this encounter
--- OUTSIDE RECORDS SUMMARY | 2024-06-15 22:25 | XMS_ITS | Encounter Summary ---
Author Organization [facility] [place] [address] Care Team Providers Care Medical Social Worker Name Role Phone None Primary Care Provider Unavailabl e Reason for Visit * Reason Onset Date Comments Prior Authorization 12/10/2016 12/09/2016 I NPT PSYCH Encounter Details Date Type Department Care Team (Late st Contact Info) Description 12/10/2016 Telephone Psychiatry [place] [phone] Shaila Case MD [facility] [place] [address] Prior Authorization (12/09/2016 INPT PSYCH) Social History [...] EDT PER FAX BACK FROM [facility] AT REPLACED BY [facility]: AUTH #[id number] FOR 12/09/2016 INPT PSYCH EFF. 12/09/2016 - 12/14/2016 WITH REVIEW NEEDED ON 12/14/2016 documented in this encounter Plan of Treatment Not on file documented as of this encounter Visit Diagnoses Not on filedocumented in this encounter Care Teams Medical Social Worker Relationship Specialty Start Date End Date None None PCP - General 12/09/16 02/27/18 documented as of this encounter
--- OUTSIDE RECORDS SUMMARY | 2024-06-15 22:25 | XMS_ITS | Encounter Summary ---
Author Organization Formerly [facility] [place] [address] Care Team Providers Care Goal Umpire Name Role Phone Lidia Benson APRN Primary Care Provider + [phone] Reason for Visit * Consultation (Routine) - Closed Specialty Diagnoses / Procedures Referred By Mateusz ibarra Referred To Contact Gastroenterology Diagnoses Elevated LFTs Upper abdominal pain Irritable bowel syndrome with diarrhea Hematochezia Angela Pizarro APRN [address] [place] [address] [facility] [address] [place] [address] Referral ID Status Reason Start Date Expiration Date V isits Requested Visits Authorized [id number] Closed Consult, Test & Treat 06/13/2018 06/13/2019 1 1 Encounter Details Date Type Department Care Team (Late st Contact Info) Description 06/28/2018 3:00 PM EDT Office [place] [address] Jimmy Calvillo PA [address] [place] [address] [place] [address] METZGER (nonalcoholic steatohepatitis) (Primary Dx); 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 Urinary frequency R35.0 ??? 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 Shaneka [...] endoscopies, although has not spoken with a maintenance scheduler about this yet. She does not remember [...] 2 years. She sees a psychiatrist through [facility] (Terrence Jeronimo APRN). She denies any current [...] She lives alone in an apartment in [place]. She is on disability. She is . [...] of this 60 minute visit was in cddb-wc-yygw discussion regarding disease, prognosis and treatment. 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
--- OUTSIDE RECORDS SUMMARY | 2024-06-15 22:25 | XMS_ITS | Encounter Summary ---
Author Organization [facility] [place] [address] Care Team Providers Care Oracle Adf Consultant Name Role Phone None Primary Care Provider Unavailabl e Encounter Details Date Type Department Care Team (Latest Contact Info) Description 03/16/2017 12:00 PM EDT - 03/16/2017 11:59 PM EDT Hospital Encounter XRay at [address] [place] [address] Matthew Andrews MD [facility] [place] [address] Injury of left ankle, initial encounter Discharge [...] encounter documented in this encounter Care Teams Oracle Adf Consultant Relationship Specialty Start Date End Date None None PCP - General 12/09/16 02/27/18 documented as of this encounter
--- OUTSIDE RECORDS SUMMARY | 2024-06-15 22:25 | XMS_ITS | Encounter Summary ---
Author Organization [facility] [place] [address] Care Team Providers Care Tank Car Inspector Name Role Phone None Primary Care Provider Unavailabl e Encounter Details Date Type Department Care Team (Late st Contact Info) Description 02/21/2017 Orders [place] [address] Matthew Andrews MD [facility] [place] [address] Injury of left ankle, initial encounter Social [...] residents interpretationand agree with the findings, ALMAS WOENS at 03/16/2017 3:59 PM Matthew Andrews MD IMG DX ORDERABLES documented in this encounter Visit Diagnoses Diagnosis Injury of left ankle, initial encounter Injury of left ankle, initial encounter documented in this encounter Care Teams Tank Car Inspector Relationship Specialty Start Date End Date None None PCP - General 12/09/16 02/27/18 documented as of this encounter
--- OUTSIDE RECORDS SUMMARY | 2024-06-15 22:25 | XMS_ITS | Encounter Summary ---
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 Notes - phone note with routing done documented in this encounter Plan of Treatment Not on file documented as of this encounter Visit Diagnoses Not on filedocumented in this encounter Care Teams Portainer Operator Relationship Specialty Start Date End Date None None PCP - General 12/09/16 02/27/18 documented as of this encounter
--- OUTSIDE RECORDS SUMMARY | 2024-06-15 22:25 | XMS_ITS | Encounter Summary ---
Author Organization [facility] [place] [address] Care Team Providers Care Care Attendant Name Role Phone Lidia Benson APRN Primary Care Provider + [phone] Encounter Details Date Type Department Care Team (Late st Contact Info) Description 06/28/2018 Telephone Gastroenterology at [facility] [place] [phone] Paula Alcala Social History Tobacco Use Types [...] on filedocumented in this encounter Care Teams Care Attendant Relationship Specialty Start Date End Date Lidia Benson APRN [address] [place] [address] PCP - General Family Medicine 02/28/18 08/23/19 documented as of this encounter
--- OUTSIDE RECORDS SUMMARY | 2024-06-15 22:25 | XMS_ITS | Encounter Summary ---
Author Organization [facility] Address [facility] [place] [address] Care Team Providers Care Medical Lab Technician Name Role Phone None Primary Care Provider Unavailabl e Encounter Details Date Type Department Care Team (Late st Contact Info) Description 03/03/2017 [place] [address] Deshaun Chapman MD [facility] [place] [address] Social History Tobacco Use Types Packs/Day Years [...] filedocumented in this encounter Care Teams Medical Lab Technician Relationship Specialty Start Date End Date None None PCP - General 12/09/16 02/27/18 documented as of this encounter
--- OUTSIDE RECORDS SUMMARY | 2024-06-15 22:25 | XMS_ITS | Encounter Summary ---
Author Organization Formerly [facility] [place] [address] Care Team Providers Care General Contractor Name Role Phone None Primary Care Provider Unavailabl e Encounter Details Date Type Department Care Team (Late st Contact Info) Description 03/03/2017 Orders Only Psychiatry and Behavioral Health at [facility] [place] [address] Sancho Deras Jr., MD [facility] [place] [address] Social History Tobacco Use Types Packs/Day Years [...] to send these two prescriptions to Christy VayaFeliz in [facility] after reviewing her discharge paperwork and confirming these were discharge medications. documented in this encounter Plan of Treatment Not on file documented as of this encounter Visit Diagnoses Not on filedocumented in this encounter Care Teams General Contractor Relationship Specialty Start Date End Date None None PCP - General 12/09/16 02/27/18 documented as of this encounter
--- OUTSIDE RECORDS SUMMARY | 2024-06-15 22:25 | XMS_ITS | Encounter Summary ---
Author Organization Formerly [facility] [place] [address] Care Team Providers Care Winding Rack Operator Name Role Phone RitaLidia chino SONG Primary Care Provider + [phone] Encounter Details Date Type Department Care Team (Latest Contact Info) Description 06/13/2018 3:00 PM EDT Procedure visit [place]ology [place] [id number] Jimmy Calvillo PA [address] [place] [address] [place] [address] Fatty liver; Abnormal liver enzymes; Elevated LFTs; [...] pain; Irritable bowel syndrome with diarrhea; Hematochezia [facility] Liver Fibrosis Assessment Report Indication: Fatty liver, abnormal LFTs Performed by: CECI Mijares Procedure: Vibration Controlled Transient Elastography (VCTE) or Fibroscan [place] Protocol: Patient's identity, procedure and site were [...] Procedure Name Priority Date/Time Associated Diagnosis Comments [id number] Routine 06/13/2018 3:36 PM EDT Elevated LFTs Upper abdominal pain Irritable bowel syndrome with diarrhea Hematochezia documented in this encounter Results * [id number] (06/13/2018 3:36 PM EDT) Narrative Jimmy Calvillo PA - 06/13/2018 3:36 PM EDT Jimmy Calvillo PA ? 06/13/2018 ??3:36 PM [facility] Liver Fibrosis Assessment Report Indication: ?? Fatty liver, abnormal LFTs Performed by: ??CECI Mijares Procedure: Vibration Controlled Transient Elastography (VCTE) or Fibroscan [place] Protocol: Patient's identity, procedure and site were [...] stool documented in this encounter Care Teams Winding Rack Operator Relationship Specialty Start Date End Date Lidia Benson, AUTOMOBILE MECHANIC SUPERVISOR [address] [place] [address] PCP - General Family Medicine 02/28/18 08/23/19 documented as of this encounter
--- OUTSIDE RECORDS SUMMARY | 2024-06-15 22:25 | XMS_ITS | Encounter Summary ---
Author Organization [facility] [place] [address] Care Team Providers Care Machine Precision Engraver Name Role Phone Lidia Benson APRN Primary Care Provider + [phone] Encounter Details Date Type Department Care Team (Late st Contact Info) Description 03/23/2018 Telephone [place] [phone] Shruthi Fisher Social History Tobacco Use Types [...] on filedocumented in this encounter Care Teams Machine Precision Engraver Relationship Specialty Start Date End Date Lidia Benson APRN [address] [place], [place] [id number] PCP - General Family Medicine 6/26/18 12/19/19 documented as of this encounter
--- OUTSIDE RECORDS SUMMARY | 2024-06-15 22:25 | XMS_ITS | Encounter Summary ---
Author Organization [facility] [place] [address] Care Team Providers Care Necktie Maker Name Role Phone None Primary Care Provider Unavailabl e Reason for Referral * Consultation (Routine) - Closed Specialty Diagnoses / Procedures Referred By Mateusz ibarra Referred To Contact Orthopaedics Diagnoses Post-traumatic wound infection Shaneka Mac APRN [facility] [place] [address] Costa Dorsey DPM [facility] [place] [address] Referral ID Status Reason Start Date Expiration Date V isits Requested Visits Authorized [id number] Closed Consult, Test & Treat 03/16/2017 03/16/2018 1 1 Reason for Visit * Reason Comments Follow Up Fracture L talus fx 02/19/17 Encounter Details Date Type Department Care Team (Late st Contact Info) Description 03/16/2017 1:00 PM EDT Office [place] [address] Matthew Andrews MD [facility] [place] [address] Post-traumatic wound infection; Closed displaced fracture of [...] EDT Name: Shaneka Samano Age:36 y.o. MR#: [id number] Date of Service: 03/16/2017 Staff: Dr. Dorsey [...] encounter documented in this encounter Care Teams Necktie Maker Relationship Specialty Start Date End Date None None PCP - General 12/09/16 02/27/18 documented as of this encounter
--- OUTSIDE RECORDS SUMMARY | 2024-06-15 22:25 | XMS_ITS | Encounter Summary ---
Author Organization [facility] [place] [address] Care Team Providers Care Lead Applier Name Role Phone None Primary Care Provider Unavailabl e Encounter Details Date Type Department Care Team (Late st Contact Info) Description 02/28/2017 Telephone [place] [address] Savana Burns RN Social History Tobacco Use [...] remove her sutures. Plan: Discussed with Rosalina Zuniag APRN. When the pt has time tomorrow (date of original appointment), they can page [phone] and a resident to see the patient and remove the sutures. Lissett verbalizes herunderstanding and agrees with the plan. documented in this encounter Plan of Treatment Not on file documented as of this encounter Visit Diagnoses Not on filedocumented in this encounter Care Teams Lead Applier Relationship Specialty Start Date End Date None None PCP - General 12/09/16 02/27/18 documented as of this encounter
--- OUTSIDE RECORDS SUMMARY | 2024-06-15 22:26 | XMS_ITS | Encounter Summary ---
Author Organization [facility] [place] [address] Care Team Providers Care Blanket Maker Name Role Phone None Primary Care Provider Unavailabl e Reason for Visit * Reason Comments Psychiatric Evaluation Encounter Details Date Type Department Care Team (Late st Contact Info) Description 12/09/2016 3:45 AM EDT - 12/09/2016 6:19 AM EDT Emergency Emergency Department [facility] [place] [address] Tayla Antonio MD [facility] [place] [address] Paranoid schizophrenia Discharge Disposition: Psych Hospital/Distinct Part [...] Screen, Urine (12/09/2016 6:00 AM EDT) Pathologist [facility] Marijuana Metabolites Screen None Detected None Detected [facility] Comment: The marijuana metabolites screen detects the THC Metabolite (80-uha-7-carboxy-delta 9-THC) at concentrations >50 ng/mL. Qualitative Drug screens are reported as ? None Detected? or ? Presumptive Positive? as the results are not routinely confirmed by highly-specific methods. As with any screen occasional false positive results from cross-reacting substances can occur. Not for Medico-Legal Purposes. Phencyclidine Screen, Urine None Detected None Detected [facility] Comment: The phencyclidine screen detects phencyclidine at concentrations >25 ng/mL. Qualitative Drug screens are reported as ? None Detected? or ? Presumptive Positive? as the results are not routinely confirmed by highly-specific methods. As with any screen occasional false positive results from cross-reacting substances can occur. Not for Medico-Legal Purposes. [place] Cocaine Metabolites Screen None Detected None Detected [facility] Comment: The cocaine metabolites screen detects benzoylecgonine (Cocaine Metabolite) at concentrations >150 ng/mL. Qualitative Drug screens are reported as ? None Detected? or ? Presumptive Positive? as the results are not routinely confirmed by highly-specific methods. As with any screen occasional false positive results from cross-reacting substances can occur. Not for Medico-Legal Purposes. Methamphetamines Screen, Urine None Detected None Detected [facility] Comment: The methamphetamine screen detects d-methamphetamine at concentrations >500 ng/mL. Qualitative Drug screens are reported as ? None Detected? or ? Presumptive Positive? as the results are not routinely confirmed by highly-specific methods. As with any screen occasional false positive results from cross-reacting substances can occur. Not for Medico-Legal Purposes. [place] Opiates Screen None Detected None Detected [facility] [...] [place] Amphetamines Screen None Detected None Detected [facility] Comment: The amphetamine screen detects d-amphetamine at concentrations >500 ng/mL. Qualitative Drug screens are reported as ? None Detected? or ? Presumptive Positive? as the results are not routinely confirmed by highly-specific methods. As with any screen occasional false positive results from cross-reacting substances can occur. Not for Medico-Legal Purposes. [place] Benzodiazepines Screen None Detected None Detected [facility] Comment: The benzodiazepines screen detects [...] [place] Tricyclics Screen None Detected None Detected [facility] Comment: The tricyclics screen detects [...] [place] Methadone Screen None Detected None Detected [facility] Comment: The methadone screen detects methadone at concentrations >200 ng/mL. Qualitative Drug screens are reported as ? None Detected? or ? Presumptive Positive? as the results are not routinely confirmed by highly-specific methods. As with any screen occasional false positive results from cross-reacting substances can occur. Not for Medico-Legal Purposes. [place] Barbiturates Screen None Detected None Detected [facility] Comment: The barbiturates screen detects [...] [place] Oxycodone Srceen None Detected None Detected [facility] Comment: The oxycodone screen detects oxycodone at concentrations >100 ng/mL and oxymorphone >250 ng/ml. Qualitative Drug screens are reported as ? None Detected? or ? Presumptive Positive? as the results are not routinely confirmed by highly-specific methods. As with any screen occasional false positive results from cross-reacting substances can occur. Not for Medico-Legal Purposes. Propoxyphene Screen, Urine None Detected None Detected [facility] Comment: The propoxyphene screen detects propoxyphene at concentrations >300 ng/mL. Qualitative Drug screens are reported as ? None Detected? or ? Presumptive Positive? as the results are not routinely confirmed by highly-specific methods. As with any screen occasional false positive results from cross-reacting substances can occur. Not for Medico-Legal Purposes. [place] Buprenorphine Screen None Detected None Detected [facility] Comment: The buprenorphine screen detects buprenorphine at concentrations >10 ng/mL. Qualitative Drug screens are reported as ? None Detected? or ? Presumptive Positive? as the results are not routinely confirmed by highly-specific methods. As with any screen occasional false positive results from cross-reacting substances can occur. Not for Medico-Legal Purposes. [place] Adulterants Screen None Detected None Detected [facility] Comment: No adulteration or dilution [...] Antonio MD URINE ORDERABLES Performing Organization Address City/[facility]/ZIP Co de Phone Number [facility] [place] [place] [address] * Blue Tube HOLD (12/09/2016 4:48 AM EDT) Blue Hold Sample in lab. [facility] Blood specimen (specimen) Venous Draw / Unknown 12/09/2016 4:48 AM EDT 12/09/2016 4:55 AM EDT Tayla Antonio MD HEMATOLOGY ORDERABLE S Performing Organization Address City/[facility] Co de Phone Number [facility] [place] [address] * (ABNORMAL) Differential, Automated (12/09/2016 4:48 AM EDT) [facility] Neutrophil % 72.3 % [facility] Neutrophil Absolute 9.50(H) 1.70 - 6.10 x10(3)/mc L [facility] Lymph % 20.5 % [facility] Lymphocytes Abs 2.7 0.9 - 3.2 x10(3)/mc L [facility] Monocyte % 5.2 % [facility] Monocyte Abs 0.7 0.3 - 0.9 x10(3)/mc L [facility] Eos % 1.4 % [facility] Eosinophils Abs 0.2 0.0 - 0.4 x10(3)/mc L [facility] Basophil % 0.3 % [facility] Baso Absolute 0.0 0.0 - 0.1 x10(3)/mc L [facility] Immature Gran % 0.30 % [facility] Comment: Immature granulocytes(IG's)percentage and absolute count will include metamyelocytes, myelocytes, and promyelocytes. Blood smears from CBCs yielding IG's will be scanned manually for concordance. If this scan disagrees with the automated IG or if promyelocytes are noted, a manual differential will be performed. Immature Gran Absolute 0.04 0.00 - 0.04 x10(3)/mc L [facility] Blood specimen (specimen) 12/09/2016 4:48 AM EDT 12/09/2016 4:55 AM EDT Narrative Resulting Agency Comment Spec In Lab Tayla Antonio MD HEMATOLOGY ORDERABLE S [facility] [place] [place] [address] * (ABNORMAL) Hemogram (12/09/2016 4:48 AM EDT) White Blood Cell 13.1(H) 4.0 - 9.5 x10(3)/mc L [facility] Red Blood Cell 4.53 4.00 - 5.21 x10(6)/mc L [facility] Hemoglobin 14.2 11.7 - 15.5 gm/dL [facility] Hematocrit 40.7 35.7 - 45.8 % [facility] Mean Cell Volume 89.8 82.6 - 94.4 fL [facility] Mean Cell Hemoglobin 31.3 27.1 - 32.0 pg [facility] Mean Cell Hemoglobin Concentration 34.9 31.7 - 35.0 gm/dL [facility] Platelet 366(H) 145 - 357 x10(3)/mc L [facility] RDW Standard Deviation 43.1 37.0 - 46.0 fL [facility] RDW coefficient of variation 13.1 11.5 - 14.1 % [facility] Mean Platelet Volume 9.4 7.6 - 12.9 fL [facility] NRBC% auto 0.0 % [facility] NRBC Absolute 0.000 0.000 - 0.000 x10(3)/mc L [facility] Blood specimen (specimen) 12/09/2016 4:48 AM EDT 12/09/2016 4:55 AM EDT Narrative Resulting Agency Comment Spec In Lab Tayla Antonio MD HEMATOLOGY ORDERABLE S [facility] [place] [address] * T3, free (12/09/2016 4:15 AM EDT) Free T3 3.0 2.0 - 4.4 pg/mL [facility] Blood specimen (specimen) Venous Draw / Unknown 12/09/2016 4:15 AM EDT 12/09/2016 4:31 AM EDT Narrative Resulting Agency Comment Spec In Lab Tayla Antonio MD CHEMISTRY ORDERABLES Performing Organization Address City/[facility]/ZIP Co de Phone Number [facility] [place] [address] * T4, free (12/09/2016 4:15 AM EDT) Free T4 1.29 0.93 - 1.70 ng/dL [facility] Blood specimen (specimen) Venous Draw / Unknown 12/09/2016 4:15 AM EDT 12/09/2016 4:31 AM EDT Narrative Resulting Agency Comment Spec In Lab Tayla Antonio MD CHEMISTRY ORDERABLES Performing Organization Address City/[facility]/ZIP Co de Phone Number [facility] [place] [address] * TSH (12/09/2016 4:15 AM EDT) Thyroid Stimulating Hormone 2.05 0.27 - 4.20 mcIU/mL [facility] Blood specimen (specimen) Venous Draw / Unknown 12/09/2016 4:15 AM EDT 12/09/2016 4:31 AM EDT Narrative Resulting Agency Comment Spec In Lab Tayla Antonio MD CHEMISTRY ORDERABLES Performing Organization Address City/[facility]/ZIP Co de Phone Number [facility] [place] [address] * Salicylate (12/09/2016 4:15 AM EDT) Salicylate <20 mg/L [facility] Comment: Results rechecked by pmh [...] Antonio MD CHEMISTRY ORDERABLES Performing Organization Address [facility] Co de Phone Number [facility] [place] [address] * Acetaminophen level (12/09/2016 4:15 AM EDT) Acetamin Lvl <5 10 - 30 mg/L [facility] Comment: Results rechecked by pmh Levels >150 mg/L at 4 hours post ingestion or >75 mg/L at 8 hours post ingestion are often an indication for N-Acetylcysteine. Blood specimen (specimen) Venous Draw / Unknown 12/09/2016 4:15 AM EDT 12/09/2016 4:26 AM EDT Narrative Resulting Agency Comment Spec In Lab Tayla Antonio MD CHEMISTRY ORDERABLES Performing Organization Address City/[facility]/ZIP Co de Phone Number [facility] [place] [address] * (ABNORMAL) Comprehensive metabolic panel (non-fasting) (12/09/2016 4:15 AM EDT) Glucose 157 65 - 199 mg/dL [facility] Comment:Diabetes: >=200 mg/d L plus symptoms Blood Urea Nitrogen 11 8 - 18 mg/dL [facility] Creatinine 0.72 0.70 - 1.20 mg/dL [facility] Comment: Please note that the pediatric reference intervals supplied above were not validated at [facility]. Results from pediatric patients should be interpreted in conjunction to the patient's age, height and muscle mass. Sodium 143 135 - 145 mmol/L [facility] Potassium 3.7 3.5 - 5.0 mmol/L [facility] Comment: Please note: ??Patients with WBC >100,000 may have falsely elevated Potassium levels. ??For accurate Potassium quantification in these patients send serum separator tube (gold top) for subsequent determinations. ??Contact the Clinical Chemistry Laboratory if there are any questions. Chloride 102 98 - 107 mmol/L [facility] Carbon Dioxide 22 22 - 31 mmol/L [facility] Anion Gap 19(H) 5 - 15 mmol/L [facility] Calcium 9.7 8.5 - 10.5 mg/dL [facility] Protein, Total 7.2 6.1 - 8.0 gm/dL [facility] Albumin 4.2 3.2 - 5.2 gm/dL [facility] Aspartate Aminotransferase 33(H) 0 - 30 unit/L [facility] Alanine Aminotransferase 55(H) 0 - 30 unit/L [facility] Alkaline Phosphatase 142(H) 40 - 104 unit/L [facility] Bilirubin, Total <0.2(L) 0.2 - 1.3 mg/dL [facility] Bilirubin, Direct <0.1 0.0 - 0.3 mg/dL [facility] Est Glomerular Filtration Rate >60 [...] the following links into your internet browser. [email or web address] Blood specimen (specimen) Venous Draw / Unknown 12/09/2016 4:15 AM EDT 12/09/2016 4:31 AM EDT Narrative Resulting Agency Comment Spec In Lab Tayla Antonio MD CHEMISTRY ORDERABLES Performing Organization Address [facility] Co de Phone Number [facility] [place] [address] * Green Tube HOLD (12/09/2016 4:15 AM EDT) Green Hold Sample in lab. [facility] Blood specimen (specimen) Venous Draw / Unknown 12/09/2016 4:15 AM EDT 12/09/2016 4:29 AM EDT Tayla Antonio MD CHEMISTRY ORDERABLES Performing Organization Address [facility] de Phone Number [facility] [place] [address] * Valproic Acid Level, Total (12/09/2016 4:15 AM EDT) Valproic Acid <3 [facility] Comment: Results rechecked by [facility] Therapeutic Range: Anticonvulsant Therapy: ??50-100 mg/L Manic Episodes Associated with Bipolar Disorder: ??50-125 mg/L Blood specimen (specimen) 12/09/2016 4:15 AM EDT 12/09/2016 4:26 AM EDT Narrative Resulting Agency Comment Spec In Lab Tayla Antonio MD CHEMISTRY ORDERABLES Performing Organization Address City/[facility] Co de Phone Number [facility] [place] [address] * Ethanol Level (12/09/2016 4:15 AM EDT) Ethanol <100 mg/L [facility] Comment: Greater than 800 mg/L (0.08%) should be considered intoxicated. 3400 to 4500 mg/L (0.34 - 0.45%) is considered severe intoxication. Greater than 5500 mg/L (0.55%) is usually fatal. Blood specimen (specimen) 12/09/2016 4:15 AM EDT 12/09/2016 4:26 AM EDT Narrative Resulting Agency Comment Spec In Lab Tayla Antonio MD CHEMISTRY ORDERABLES [facility] [place] [address] documented in this encounter Visit Diagnoses Diagnosis [...] RN) documented in this encounter Care Teams Blanket Maker Relationship Specialty Start Date End Date None None PCP - General 12/09/16 02/27/18 documented as of this encounter
--- OUTSIDE RECORDS SUMMARY | 2024-06-15 22:26 | XMS_ITS | Encounter Summary ---
Author Organization [facility] Address [address] [place] [address] Care Team Providers Care Photo Mask Inspector Name Role Phone Lidia Tinsley NP Primary Care Provider [phone] Encounter Details Date Type Department Care Team (Late st Contact Info) Description 02/22/2019 Results Only [facility] [phone] Lidia Tinsley NP [address] [place], [place] [id number] Social History Tobacco Use Types Packs/Day Years [...] ? SHANEKA LANDON ? Accession #: ? [id number] ? : ? 1980 (Age: 38) ??F ?Collect Date: ? 02/22/2019 ? Location: ? [facility] ? Receive Date: ? 02/23/2019 ? Provider: LIDIA TINSLEY UPHOLSTERY COVERS INSPECTOR Copy to: ? Final Report SPECIMEN [place]QU[place]Y [...] types 16,18,31,33,35, 39,45,51,52,56,58, 59,66, and 68 by rn medical surgical mediated amplification. Comments Document reviewed and electronically signed by: ? System Interface ? Report date: 02/27/2019 By the signature above, the attending physician certifies that he/she has personally conducted a gross and/or microscopic examination of the described specimens and rendered or confirmed the above diagnosis. End of Report [facility] 02/22/2019 02/23/2019 Lidia Tinsley NP PATHOLOGY ORDERABLES Performing Organization Address City/State/[facility] Co de Phone Number [facility] [address] [place] [address] documented in this encounter Visit Diagnoses Not on filedocumented in this encounter Care Teams Photo Mask Inspector Relationship Specialty Start Date End Date Lidia [place]ins[place] [address] [address] PCP - General 09/27/17 03/29/22 documented as of this encounter
--- OUTSIDE RECORDS SUMMARY | 2024-06-15 22:26 | XMS_ITS | Encounter Summary ---
Author Organization [facility] Address [address] [place] [address] Care Team Providers Care Tie Maker Name Role Phone Lidia Benson BLADE SHARPENER Primary Care Provider [phone] Adelina Baca BLADE SHARPENER Primary Care Provider [phone] Antoni Ohara DO Primary Care Provider [phone] Encounter Details Date Type Department Care Team (Late st Contact Info) Description 01/07/2021 Lab Requisition [facility] Pathology & Laboratory Medicine - [facility] [address] [place], [place] [address] Outr Resulting Lab, Provider Social History Tobacco [...] Results * LH (01/07/2021 10:00 EDT) Pathologist [facility] Luteinizing Hormone 10.9 See Note mIU/mL 01/07/2021 17:45 EDT [facility] Comment: NOTE: Female [...] Resulting Lab CHEMISTRY & BLOOD GAS ORDERABLES [facility] [address] [place] [address] * FSH (01/07/2021 10:00 EDT) [facility] FSH 4.9 See Note mIU/mL 01/07/2021 17:44 EDT [facility] Blood VENOUS BLOOD / Unknown 01/07/2021 10:00 EDT 01/07/2021 16:01 EDT Narrative [facility] - 01/07/2021 17:44 EDT NOTE: [...] Resulting Lab CHEMISTRY & BLOOD GAS ORDERABLES [facility] [address] [place] [address] * PROLACTIN (01/07/2021 10:00 EDT) [facility] Prolactin 7.5 See Table ng/mL 01/07/2021 17:45 EDT [facility] Comment: NOTE: Female [...] & BLOOD GAS ORDERABLES Performing Organization Address City/[facility]/ZIP Co de Phone Number [facility] [address] [place] [address] * CORTISOL (01/07/2021 10:00 EDT) Cortisol 10 See Note ug/dL 01/07/2021 16:52 EDT [facility] Comment: NOTE: Reference Ranges [...] & BLOOD GAS ORDERABLES Performing Organization Address [facility] [[email or web address]] Co de Phone Number [facility] [address] [place] [address] documented in this encounter Visit Diagnoses Not on filedocumented in this encounter Care Teams Tie Maker Relationship Specialty Start Date End Date Lidia Benson NP [address] [place] [address] PCP - General 09/27/17 03/29/22 Adelina Baca NP [address] [place] [address] PCP - General Family Medicine - Primary Care 03/30/22 05/08/24 Antoni Ohara DO [place] [address] PCP - General Family Medicine - Primary Care 05/09/24 documented as of this encounter
--- OUTSIDE RECORDS SUMMARY | 2024-06-15 22:26 | XMS_ITS | Encounter Summary ---
Author Organization [facility] Address [address] [place] [address] Care Team Providers Care Loin Puller Name Role Phone Lidia Benson TRANSFORMATION COACH Primary Care Provider [phone] Adelina Baca TRANSFORMATION COACH Primary Care Provider [phone] Antoni Ohara DO Primary Care Provider [phone] Encounter Details Date Type Department Care Team (Late st Contact Info) Description 05/02/2020 Lab Requisition [facility] Pathology & Laboratory Medicine - [facility] [address] [place], [place] [address] Outr Resulting Lab, Provider Social History Tobacco [...] gonorrhoeae Result Negative Negative 05/05/2020 13:40 EDT [facility] Chlamydia trachomatis Result Negative Negative 05/05/2020 13:40 EDT [facility] Urine URINE / Unknown 05/02/2020 1 5:35 EDT 05/04/2020 16:51 EDT Narrative [facility] - 05/05/2020 13:40 EDT A first catch urine specimen is acceptable for detection of Gonorrhea and Chlamydia, but might detect up to 10% fewer infections when compared with vaginal and endocervical swab samples. Provider Outr Resulting Lab MICROBIOLOGY - GENERAL ORDERABLES [facility] [address] [place] [address] documented in this encounter Visit Diagnoses Not on filedocumented in this encounter Care Teams Loin Puller Relationship Specialty Start Date End Date Lidia Benson NP [address] [place] [address] PCP - General 09/27/17 03/29/22 Adelina Baca NP [address] [place] [address] PCP - General Family Medicine - Primary Care 03/30/22 05/08/24 Antoni Ohara DO [address] [place] [address] PCP - General Family Medicine - Primary Care 05/09/24 documented as of this encounter
--- OUTSIDE RECORDS SUMMARY | 2024-06-15 22:26 | XMS_ITS | Clinical Summary ---
Author Organization [facility] Address [address] [place] [address] Care Team Providers Care Hotel Desk Clerk Name Role Phone Antoni Ohara DO Primary Care Provider [phone] Allergies Active Allergy Reactions Criticality Noted Date [...] Type Department Care Team Description 06/13/2024 Telephone [facility] Plastic, Reconstructive & Cosmetic Surgery [address], [address] [address] Sid Lei MD FACS Surgery Scheduling 06/08/2024 Telephone [facility] Plastic, Reconstructive & Cosmetic Surgery [address] [address] Sid Lei MD FACS Imaging; Diagnostic Imaging Report 05/09/2024 14:30 EDT Office Visit [facility] Plastic, Reconstructive & Cosmetic Surgery [address], [address] [address] Sid Lei MD FACS 03/15/2024 - 03/15/2024 23:59 EDT Hospital Encounter [facility] Secondary [place] Discharge Disposition: Home or Self Care from Last 3 Months Surgical History Surgery Date Site/Laterality Comments BREAST SURGERY 1998 Asymmetry - Dr. Gao ([facility]) Medical History Medical History Date Comments Thyroid disease Schizophrenia ([facility]) Family History Medical History Relation Comments Cardiac [...] DERABLES from Last 3 Months Care Teams Hotel Desk Clerk Relationship Specialty Start Date End Date Antoni Ohara DO [address] [place] [address] PCP - General Family Medicine - Primary Care 05/09/24
--- OUTSIDE RECORDS SUMMARY | 2024-06-15 22:26 | XMS_ITS | Encounter Summary ---
Author Organization [facility] Address [address] [place] [address] Care Team Providers Care Printing Equipment Mechanic Name Role Phone Unknown, Provider Primary Care Provider [phone] Encounter Details Date Type Department Care Team (Late st Contact Info) Description 09/08/2011 Results Only [facility] [phone] Sariah Pulliam, DO [address] [place] [address] Social History Tobacco Use Types [...] SARIAH PULLIAM DO Copy to: LORY JOHNS PAPER STEAMER ? Final Pathologic Diagnosis: ? Pilonidal cyst, [...] tissue with no discrete cavitary regions identified. ??Molder Offbearer sections are submitted as follows: BLOCK MENESES A1 ?Section of specimen with skin at fragmented deep tissue A2 ?Additional sections of specimen with skin with indwelling cystic cavitary area A3 ?Molder Offbearer sections of separate fragments of tissue (Jeanette Decker)/[facility] End of Report [facility] 09/08/2011 09/08/2011 16: 13 EST Sariah Pulliam DO PATHOLOGY ORDERABLES [facility] [address] [place] [address] documented in this encounter Visit Diagnoses Not on filedocumented in this encounter Care Teams Printing Equipment Mechanic Relationship Specialty Start Date End Date Unknown, Provider, PCP - General 09/08/09 09/08/11 documented as of this encounter
--- OUTSIDE RECORDS SUMMARY | 2024-06-15 22:26 | XMS_ITS | Encounter Summary ---
Author Organization [facility] Address [address] [place] [address] Care Team Providers Care Bread Distributor Name Role Phone Adelina Baca NP Primary Care Provider [phone] Reason for Referral * (Routine/Next Available) - Receiving Office to Obtain Authorization Specialty Diagnoses / Procedures Referred By Contac t Referred To Contact Procedures CT OUTSIDE IMAGES CHEST ABDOMEN PELVIS Imaging, External Referral ID Status Reason Start Date Expiration Date Visits Requested Visits Authorized [id number] Receiving Office to Obtain Authorization 06/08/2024 1 1 Reason for Visit * (Routine/Next Available) - Receiving Office to Obtain Authorization Specialty Diagnoses / Procedures Referred By Contac t Referred To Contact Procedures CT OUTSIDE IMAGES CHEST ABDOMEN PELVIS Imaging, External Referral ID Status Reason Start Date Expiration Date Visits Requested Visits Authorized [id number] Receiving Office to Obtain Authorization 06/08/2024 1 1 Encounter Details Date Type Department Care Team (Latest Contact Info) Description 03/15/2024 - 03/15/2024 23:59 EDT Hospital Encounter [facility] Secondary [place] Discharge Disposition: Home [...] on filedocumented in this encounter Care Teams Bread Distributor Relationship Specialty Start Date End Date Adelina Baca NP [address] [place] [address] PCP - General Family Medicine - Primary Care 03/30/22 05/08/24 documented as of this encounter
--- OUTSIDE RECORDS SUMMARY | 2024-06-15 22:26 | XMS_ITS | Encounter Summary ---
Author Organization [facility] Address [address] [place] [address] Care Team Providers Care Guide Dog Mobility Instructor Name Role Phone Antoni Ohara DO Primary Care Provider [phone] Reason for Visit * Reason Comments New Patient Visit Left breast smaller than the right breast * Referral (Routine) - Receiving Office to Obtain Authorization Specialty Diagnoses / Procedures Referred By Mateusz ibarra Referred To Contact Plastic Surgery Diagnoses Congenital malformation, unspecified Antoni Ohara DO [address] [place] [address] [facility] Plastics [address] [place] [address] Referral ID Status Reason Start Date Expiration Date Visits Requested Visits Authorized [id number] Receiving Office to Obtain Authorization 1 1 Encounter Details Date Type Department Care Team (Late st Contact Info) Description 05/09/2024 14:30 EDT Office Visit [facility] Plastic, Reconstructive & Cosmetic Surgery - [address], [address] [address] Sid Lei MD [address] [address] Social History Tobacco Use Types [...] daily. added in this encounter Care Teams Guide Dog Mobility Instructor Relationship Specialty Start Date End Date Antoni Ohara DO [address] [place] [address] PCP - General Family Medicine - Primary Care 05/09/24 documented as of this encounter
--- OUTSIDE RECORDS SUMMARY | 2024-06-15 22:26 | XMS_ITS | Encounter Summary ---
Author Organization [facility] Address [address] [place] [address] Care Team Providers Care Accounting Auditor Name Role Phone Marie Dixon MD Primary Care Provider [phone] Reason for Visit * Reason Comments Breast Implant Problem left breast defla jenna. Encounter Details Date Type Department Care Team (Late st Contact Info) Description 01/01/2015 14:30 EDT Office Visit [facility] Plastic, Reconstructive & Cosmetic Surgery - [address], [address] [place] [phone] Sid Lei MD [address] [place] [phone] Breast asymmetry (Primary Dx) Social History [...] Notes * Sid Lei MD - 04/11/2015 2416 EDT Reason for Visit /HPI: Shaneka was [...] Breast surgery 1998 Asymmetry - Dr. Gao ([facility]) Family History: Family History Problem Relation [...] this patient; 55 minutes was spent in [id number] counseling for the abovediagnosis. Sid Lei MD 04/11/2015 18:57 documented in this encounter Plan of Treatment Not on file documented as of this encounter Visit Diagnoses Diagnosis Breast asymmetry- Primary Other specified disorders of breast documented in this encounter Care Teams Accounting Auditor Relationship Specialty Start Date End Date Marie Dixon MD [address] [place] [address] PCP - General 12/27/14 09/26/17 documented as of this encounter
--- OUTSIDE RECORDS SUMMARY | 2024-06-15 22:26 | XMS_ITS | Encounter Summary ---
Author Organization [facility] Address [address] [place] [address] Care Team Providers Care Cloth Tester Name Role Phone Adelina Baca NP Primary Care Provider [phone] Antoni Ohara DO Primary Care Provider [phone] Encounter Details Date Type Department Care Team (Late st Contact Info) Description 07/19/2023 Lab Requisition [facility] Pathology & Laboratory Medicine - [facility] [address] [place], [place] [address] Outr Resulting Lab, Provider Social History Tobacco [...] Lyme Ab Negative Negative 07/21/2023 9:50 EST [facility] Blood VENOUS BLOOD / Unknown 07/19/2023 16:20 EST 07/20/2023 17:01 EST Provider Outr Resulting Lab IMMUNOLOGY A ND SEROLOGY ORDERABLES [facility] [address] [place] [address] documented in this encounter Visit Diagnoses Not on filedocumented in this encounter Care Teams Cloth Tester Relationship Specialty Start Date End Date Adelina Baca, NYA [address] [place] [address] PCP - General Family Medicine - Primary Care 03/30/22 05/08/24 Antoni Ohara DO [address] [place] [address] PCP - General Family Medicine - Primary Care 05/09/24 documented as of this encounter
--- OUTSIDE RECORDS SUMMARY | 2024-06-15 22:26 | XMS_ITS | Encounter Summary ---
Author Organization [facility] Address [address] [place] [address] Care Team Providers Care Market Asset Protection Manager Name Role Phone Lidia Benson DICTATING MACHINE TRANSCRIBER Primary Care Provider [phone] Adelina Baca DICTATING MACHINE TRANSCRIBER Primary Care Provider [phone] Antoni Ohara DO Primary Care Provider [phone] Encounter Details Date Type Department Care Team (Late st Contact Info) Description 12/02/2019 Lab Requisition [facility] Pathology & Laboratory Medicine - [address] [address] Unknown, Provider, Social History Tobacco Use Types [...] 11.4 See Note nmol/L 12/03/2019 10:17 EDT [facility] Comment: NOTE: ---- Reference Ranges for Females Pre-Menopausal: ?>10.8 nmol/L Post-Menopausal: ?? 23.2 - 159.1 nmol/L Reference ranges for Sex Hormone Binding Globulin in female patients <21 years old have not been established. Blood VENOUS BLOOD / Unknown 12/01/2019 9:25 EDT 12/02/2019 15:58 EDT Narrative [facility] - 12/03/2019 10:17 EDT The results of this assay can be falsely lowered due to the consumption of Biotin. Provider Unknown CHEMISTRY & BLOOD GA S ORDERABLES Performing Organization Address City/State/[facility] Co de Phone Number [facility] [address] [place] [address] documented in this encounter Visit Diagnoses Not on filedocumented in this encounter Care Teams Market Asset Protection Manager Relationship Specialty Start Date End Date Lidia Benson NP [address] [place] [address] PCP - General 09/27/17 03/29/22 Adelina Baca NP [address] [place] [address] PCP - General Family Medicine - Primary Care 03/30/22 05/08/24 Antoni Ohara DO [address] [place] [address] PCP - General Family Medicine - Primary Care 05/09/24 documented as of this encounter
--- OUTSIDE RECORDS SUMMARY | 2024-06-15 22:26 | XMS_ITS | Encounter Summary ---
Author Organization [facility] Address [address] [place] [address] Care Team Providers Care Inseminator Name Role Phone Antoni Ohara DO Primary Care Provider [phone] Reason for Visit * Reason Onset Date Comments Surgery Scheduling 06/13/2024 Encounter Details Date Type Department Care Team (Late st Contact Info) Description 06/13/2024 Telephone [facility] Plastic, Reconstructive & Cosmetic Surgery - [address], [address] [place] [address] Sid Lei MD [address] [place] [phone] Surgery Scheduling Social History Tobacco Use [...] be sent to her email. Email provided: [email or web address] Patient is also asking about her PCP [...] on filedocumented in this encounter Care Teams Inseminator Relationship Specialty Start Date End Date Antoni Ohara DO [address] [place] [address] PCP - General Family Medicine - Primary Care 05/09/24 documented as of this encounter
--- OUTSIDE RECORDS SUMMARY | 2024-06-15 22:26 | XMS_ITS | Encounter Summary ---
Author Organization [facility] Address [address] [place] [address] Care Team Providers Care Socket Welder Helper Name Role Phone Unavailable Primary Care Provider Unavailabl e Encounter Details Date Type Department Care Team (Late st Contact Info) Description 07/30/2009 Orders Only [facility] Laboratory Services - [facility] ([facility] [address] [place], [place] [address] Violetta Ponce, NYA [address] [facility] [address] [place] [address] Social History Tobacco Use Types [...] GENER AL ORDERABLES [facility] [address] [place] [address] * CYTOPATHOLOGY (07/30/2009 0:00 EST) Pathology Report: CYTOPATHOLOGY REPORT ? Reports generated via electronic interface contain original data; ? however they are lacking the format of the original report. ? Caution should be taken when reading/interpreti ng unformatted reports. ? Name: ? SHANEKA LANDON ? Accession #: ? [id number] ? : ? 1980 (Age: 28) ??F ?Collect Date: ? 07/30/2009 ? Location: ? [facility] ? Receive Date: ? 08/05/2009 ? Provider: ?VIOLETTA W BESCH WIND TURBINE DESIGN ENGINEER ? Copy to: ? Specimen/Source: ?Pap Test, [...] significance (ASC-US). ? EDUCATIONAL NOTES/RECOMMENDATI ONS ? [facility] recommends following the 2006 Consensus Guidelines for the Management of Women with Abnormal Cervical Cancer Screening Tests (JLGTD, ? 2007;11(4):201-222 ). ??Consensus guidelines are available online at ? www.ASCCP.org. ? Document reviewed and electronically signed by: ? Brian Sid Edis, MD ? Report Date: ??08/11/2009 10:25 ? End of Report ? [facility] 07/30/2009 08/05/2009 Violetta Ponce WIND TURBINE DESIGN ENGINEER PATHOLOGY ORDERABLES [facility] [address] [place] [address] documented in this encounter Visit Diagnoses Not on filedocumented in this encounter
--- OUTSIDE RECORDS SUMMARY | 2024-06-15 22:26 | XMS_ITS | Encounter Summary ---
Author Organization [facility] Address [address] [place] [address] Care Team Providers Care Grain Distributor Name Role Phone Lidia Benson HOME LENDING OFFICER Primary Care Provider [phone] Adelina Baca HOME LENDING OFFICER Primary Care Provider [phone] Antoni Ohara DO Primary Care Provider [phone] Encounter Details Date Type Department Care Team (Late st Contact Info) Description 03/16/2022 Lab Requisition [facility] Pathology & Laboratory Medicine - [facility] [address] [place], [place] [address] Outr Resulting Lab, Provider Social History Tobacco [...] gonorrhoeae Result Negative Negative 03/17/2022 14:54 EDT [facility] Chlamydia trachomatis Result Negative Negative 03/17/2022 14:54 EDT [facility] Urine URINE / Unknown 03/15/2022 1 5:15 EDT 03/16/2022 18:49 EDT Narrative [facility] - 03/17/2022 14:54 EDT A first catch urine specimen is acceptable for detection of Gonorrhea and Chlamydia, but might detect up to 10% fewer infections when compared with vaginal and endocervical swab samples. Provider Outr Resulting Lab MICROBIOLOGY - GENERAL ORDERABLES [facility] [address] [place] [address] documented in this encounter Visit Diagnoses Not on filedocumented in this encounter Care Teams Grain Distributor Relationship Specialty Start Date End Date Lidia Benson NP [address] [place] [address] PCP - General 09/27/17 03/29/22 Adelina Baca NP [address] [place] [address] PCP - General Family Medicine - Primary Care 03/30/22 05/08/24 Antoni Ohara DO [address] [place] [address] PCP - General Family Medicine - Primary Care 05/09/24 documented as of this encounter
--- OUTSIDE RECORDS SUMMARY | 2024-06-15 22:26 | XMS_ITS | Encounter Summary ---
Author Organization [facility] Address [address] [place] [address] Care Team Providers Care Senior Mobile Web Developer Name Role Phone Lidia Benson SHIPPING SUPERVISOR Primary Care Provider [phone] Adelina Baca SHIPPING SUPERVISOR Primary Care Provider [phone] Antoni Ohara DO Primary Care Provider [phone] Encounter Details Date Type Department Care Team (Late st Contact Info) Description 10/06/2021 Lab Requisition [facility] Pathology & Laboratory Medicine - [facility] [address] [place], [place] [address] Outr Resulting Lab, Provider Social History Tobacco [...] Hold Hold 10/06/2021 17:[address] [facility] Blood VENOUS BLOOD / Unknown 10/05/2021 14:00 EST 10/06/2021 15:48 EST Provider Outr Resulting Lab LAB INFO SER VICE AND SUPPORT & PHONE RESULT Performing Organization Address [facility] Co de Phone Number [facility] [address] [place] [address] * LH (10/05/2021 14:00 EST) [facility] Luteinizing Hormone 12.0 See Note mIU/mL 10/07/2021 14:[address] [facility] Comment: NOTE: Female Reference [...] & BLOOD GAS ORDERABLES Performing Organization Address [facility]/ZIP Co de Phone Number [facility] [address] [place] [address] * FSH (10/05/2021 14:00 EST) FSH 5.6 See Note mIU/mL 10/07/2021 14:[address] [facility] Blood VENOUS BLOOD / Unknown 10/05/2021 14:00 EST 10/06/2021 15:47 EST Narrative [facility] - 10/07/2021 14:27 EST [...] & BLOOD GAS ORDERABLES Performing Organization Address City/State/[facility] Co de Phone Number [facility] [address] [place] [address] * PROLACTIN (10/05/2021 14:00 EST) Prolactin 4.8 See Table ng/mL 10/07/2021 14:[address] [facility] Comment: NOTE: Female Reference [...] & BLOOD GAS ORDERABLES Performing Organization Address City/State/[facility] Co de Phone Number [facility] [address] [place] [address] documented in this encounter Visit Diagnoses Not on filedocumented in this encounter Care Teams Senior Mobile Web Developer Relationship Specialty Start Date End Date Ldiia Benson NP [address] [place] [address] PCP - General 09/27/17 03/29/22 Adelina Baca NP [address] [place] [address] PCP - General Family Medicine - Primary Care 03/30/22 05/08/24 Antoni Oahra DO [address] [place] [address] PCP - General Family Medicine - Primary Care 05/09/24 documented as of this encounter
--- OUTSIDE RECORDS SUMMARY | 2024-06-15 22:26 | XMS_ITS | Encounter Summary ---
Author Organization [facility] Address [address] [place] [address] Care Team Providers Care Travel Registered Nurse Pacu Name Role Phone Marie Dixon MD Primary Care Provider [phone] Reason for Visit * Reason Onset Date Comments Other 01/07/2015 questions about breast asymmetry sx Encounter Details Date Type Department Care Team (Late st Contact Info) Description 01/07/2015 Telephone [facility] Plastic, Reconstructive & Cosmetic Surgery - [address], [address] [place] [address] Sid Lei MD [address] [place] [phone] Other (questions about breast asymmetry sx) [...] Telephone Encounter - Nan Martins - 01/07/2015 4217 EDT Patient wants to know if she can have both breasts implanted? If not she is leaning toward Lt breast implant, RT breast lifted. documented in this encounter Plan of Treatment Not on file documented as of this encounter Visit Diagnoses Not on filedocumented in this encounter Care Teams Travel Registered Nurse Pacu Relationship Specialty Start Date End Date Marie Dixon MD [address] [place] [phone] PCP - General 12/27/14 09/26/17 documented as of this encounter
--- OUTSIDE RECORDS SUMMARY | 2024-06-15 22:26 | XMS_ITS | Referral Summary ---
Author Organization [facility] Address [address] [place] [address] Care Team Providers Care Residential Child Care Counselor Name Role Phone Antoni Ohara DO Primary Care Provider [phone] Encounters Date Type Department Care Team Description 06/13/2024 Telephone [facility] Plastic, Reconstructive & Cosmetic Surgery [address], [address] [address] Sid Lei MD FACS Surgery Scheduling 06/08/2024 Telephone [facility] Plastic, Reconstructive & Cosmetic Surgery - [address], [address] [address] Sid Lei MD FACS Imaging; Diagnostic Imaging Report 05/09/2024 14:30 EDT Office Visit [facility] Plastic, Reconstructive & Cosmetic Surgery [address], [address] [address] Sid Lei MD FACS 03/15/2024 - 03/15/2024 23:59 EDT Hospital Encounter [facility] Secondary Reads [place] Discharge Disposition: Home or [...] DERABLES from Last 3 Months Care Teams Residential Child Care Counselor Relationship Specialty Start Date End Date Antoni Ohara DO [address] [place] [address] PCP - General Family Medicine - Primary Care 05/09/24
--- OUTSIDE RECORDS SUMMARY | 2024-06-15 22:26 | XMS_ITS | Encounter Summary ---
Author Organization [facility] Address [address] [place] [address] Care Team Providers Care Fusing Machine Operator Name Role Phone Lidia Benson CABLE WIRER Primary Care Provider [phone] Adelina Baca CABLE WIRER Primary Care Provider [phone] Antoni Ohara DO Primary Care Provider [phone] Encounter Details Date Type Department Care Team (Late st Contact Info) Description 06/24/2020 Lab Requisition [facility] Pathology & Laboratory Medicine - [facility] [address] [place], [place] [address] Outr Resulting Lab, Provider Social History Tobacco [...] 6 See Note ug/dL 06/24/2020 21:43 EDT [facility] Comment: NOTE: Reference Ranges (from OCD IFU): Collected Before 10:00 AM: ??4 - 23 ug/dL Collected After 5:00 PM: ?2 - 14 ug/dL The results of this assay can be falsely elevated due to the consumption of Biotin. Blood VENOUS BLOOD / Unknown 06/24/2020 11:54 EDT 06/24/2020 21:00 EDT Provider Outr Resulting Lab CHEMISTRY & BLOOD GAS ORDERABLES [facility] [address] [place] [address] documented in this encounter Visit Diagnoses Not on filedocumented in this encounter Care Teams Fusing Machine Operator Relationship Specialty Start Date End Date Lidia Benson NP [address] [place] [address] PCP - General 09/27/17 03/29/22 Adelina Baca NP [address] [place], [place] [address] PCP - General Family Medicine - Primary Care 03/30/22 05/08/24 Antoni Ohara DO [address] [place] [address] PCP - General Family Medicine - Primary Care 05/09/24 documented as of this encounter
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
--- OUTSIDE RECORDS SUMMARY | 2024-06-15 22:26 | XMS_ITS | Encounter Summary ---
Author Organization [facility] Address [address] [place] [address] Care Team Providers Care Chili Pepper Grinder Name Role Phone Lidia Benson CABLE MOCK UP ASSEMBLER Primary Care Provider [phone] Adelina Baca CABLE MOCK UP ASSEMBLER Primary Care Provider [phone] Antoni Ohara DO Primary Care Provider [phone] Encounter Details Date Type Department Care Team (Late st Contact Info) Description 03/16/2022 Lab Requisition [facility] Pathology & Laboratory Medicine - [facility] [address] [place] [address] Syeda Bai MD [address] [place] [phone] Contact with and (suspected) exposure to [...] explore management options, if applicable. 03/19/2022 16:08 [facility] Final Diagnosis A. ENDOMETRIUM, BIOPSY: - Polypoid fragments proliferative endometrium with focally disordered growth pattern. 03/19/2022 16:08 [facility] Attestation There was significant resident/fellow involvement in the diagnostic evaluation of this case. By the signature below, the attending physician certifies that they have personally conducted a gross and/or microscopic examination of the described specimens and rendered or confirmed the above diagnosis. 03/19/2022 16:08 [facility] at 1608 Clinical History Uterine mass 03/19/2022 16:08 [facility] Gross Description A. Received in formalin labelled with proper patient identification (initials P, E) and endometrium is an aggregate of clotted blood in blood-tinged mucus admixed with red-brown tissue fragments and measuring 1.5 x 1.0 x 0.3 cm. Submitted entirely in A1. CECI DONOVAN(ASCP) 03/16/2022 19:04 03/19/2022 16:08 [facility] Resident/Tony w: Brit Mcneil DO 03/19/2022 16:08 [facility] Performing Lab [facility] 03/19/2022 16:08 [facility] Scanned Images 03/19/2022 16:08 [facility] Tissue ENTIRE ENDOMETRIUM / Unknown 03/15/2022 15:00 EDT 03/16/2022 16:51 EDT Syeda Bai MD PATHOLOGY ORDERABLES [facility] [address] [place] [address] documented in this encounter Visit Diagnoses Diagnosis Contact with and (suspected) exposure to infections with a predominantly sexual mode of transmission documented in this encounter Care Teams Chili Pepper Grinder Relationship Specialty Start Date End Date Lidia Benson NP [address] [place], [place] [address] PCP - General 09/27/17 03/29/22 Adelina Baca NP [address] [place], [place] [phone] PCP - General Family Medicine - Primary Care 03/30/22 05/08/24 Antoni Ohara DO [address] [place] [phone] PCP - General Family Medicine - Primary Care 05/09/24 documented as of this encounter
--- OUTSIDE RECORDS SUMMARY | 2024-06-15 22:26 | XMS_ITS | Encounter Summary ---
Author Organization [facility] Address [address] [place] [address] Care Team Providers Care Lathe Scalper Operator Name Role Phone Lidia Benson NP Primary Care Provider [phone] Reason for Referral * Surgery (Routine) - Closed Specialty Diagnoses / Procedures [facility] Referred To Contact Plastic Surgery Diagnoses Ruptured left breast implant, sequela Breast asymmetry Procedures AR REDUCTION OF LARGE BREAST AR REMOVAL OF IMPLANT MATERIAL Sid Lei MD [address] [address] Sid Lei MD [address] [address] Referral ID Status Reason Start Date Expiration Date V isits Requested Visits Authorized [id number] Closed Specialty Services Required 11/06/2017 1 0 Question Answer Reason for Request: left implant remval, right breast reduction for matching Scheduled Surgery Date: 11/06/2017 Laterality: Bilateral Location of Procedure: [facility]pt Anesthesia: General Estimated Length of Procedure: 4h CPT Code: 07652, 1933 Reason for Visit * Reason Comments Follow-up Implant on left side - discuss removal Encounter Details Date Type Department Care Team (Late st Contact Info) Description 10/19/2017 10:15 EST Office Visit [facility] Plastic, Reconstructive & Cosmetic Surgery - [address], [address] [place] [address] Sid Lei MD [facility] [address] [facility] [address] [place] [address] Breast asymmetry (Primary Dx); Ruptured [...] documented as of this encounter Care Teams Lathe Scalper Operator Relationship Specialty Start Date End Date Lidia Benson NP [address] [place] [address] PCP - General 09/27/17 03/29/22 documented as of this encounter
--- OUTSIDE RECORDS SUMMARY | 2024-06-15 22:26 | XMS_ITS | Encounter Summary ---
Author Organization [facility] Address [address] [place] [address] Care Team Providers Care Aquatic Centre Manager Name Role Phone Lidia Benson PRESS CLIPPER Primary Care Provider [phone] Adelina Baca PRESS CLIPPER Primary Care Provider [phone] Antoni Ohara DO Primary Care Provider [phone] Encounter Details Date Type Department Care Team (Late st Contact Info) Description 01/07/2021 Lab Requisition [facility] Pathology & Laboratory Medicine - [facility] [address] [place], [place] [address] Outr Resulting Lab, Provider Social History Tobacco [...] 2.8 - 5.3 pg/mL 01/07/2021 16:45 EDT [facility] Blood VENOUS BLOOD / Unknown 01/07/2021 10:00 EDT 01/07/2021 16:01 EDT Provider Outr Resulting Lab CHEMISTRY & BLOOD GAS ORDERABLES [facility] [address] [place] [address] documented in this encounter Visit Diagnoses Not on filedocumented in this encounter Care Teams Aquatic Centre Manager Relationship Specialty Start Date End Date Lidia Benson NP [address] [place] [address] PCP - General 09/27/17 03/29/22 Adelina Baca NP [address] [place] [address] PCP - General Family Medicine - Primary Care 03/30/22 05/08/24 Antoni Ohara DO [address] [place] [phone] PCP - General Family Medicine - Primary Care 05/09/24 documented as of this encounter
--- OUTSIDE RECORDS SUMMARY | 2024-06-15 22:26 | XMS_ITS | Encounter Summary ---
Author Organization [facility] Address [address] [place] [address] Care Team Providers Care Wheel Cleaner Name Role Phone Lidia Benson FLATWORK ASSEMBLER Primary Care Provider Encounter Details Date Type Department Care Team (Late st Contact Info) Description 02/23/2019 Results Only Imaging [facility] [phone] Unknown, Provider, Social History Tobacco Use Types [...] on filedocumented in this encounter Care Teams Wheel Cleaner Relationship Specialty Start Date End Date Lidia Benson NP [address] [place], [place] [address] PCP - General 09/27/17 03/29/22 documented as of this encounter
--- OUTSIDE RECORDS SUMMARY | 2024-06-15 22:26 | XMS_ITS | Encounter Summary ---
Author Organization [facility] Address [address] [place] [address] Care Team Providers Care Filter Tank Tender Name Role Phone Violetta Ponce SUPERVISOR CEMETERY WORKERS Primary Care Provider Encounter Details Date Type Department Care Team (Late st Contact Info) Description 10/25/2013 Results Only [facility] Laboratory Services - [facility] [address] [place], [place] [address] Violetta Ponce, SUPERVISOR CEMETERY WORKERS [address] [facility] [address] [place] [address] Social History Tobacco Use Types [...] ? SHANEKA LANDON ? Accession #: ? [id number] ? : ? 1980 (Age: 33) ??F ?Collect Date: ? 10/25/2013 ? Location: ? [facility] ? Receive Date: ? 10/26/2013 ? Provider: VIOLETTA PONCE SUPERVISOR CEMETERY WORKERS Copy to: ? Final Report SPECIMEN ADEQUACY [...] types 16,18,31,33,35, 39,45,51,52,56,58, 59,66, and 68 by ic design engineer mediated amplification. Comments Document reviewed and electronically signed by: ? System Interface ? Report date: 11/07/2013 By the signature above, the attending physician certifies that he/she has personally conducted a gross and/or microscopic examination of the described specimens and rendered or confirmed the above diagnosis. End of Report [facility] 10/25/2013 10/26/2013 Violetta Ponce NP PATHOLOGY ORDERABLES Performing Organization Address City/State/[facility] Co de Phone Number [facility] [address] [place] [address] documented in this encounter Visit Diagnoses Not on filedocumented in this encounter Care Teams Filter Tank Tender Relationship Specialty Start Date End Date Violetta Ponce, SUPERVISOR CEMETERY WORKERS [address] [place] [phone] PCP - General 09/09/11 12/26/14 documented as of this encounter
--- OUTSIDE RECORDS SUMMARY | 2024-06-15 22:26 | XMS_ITS | Encounter Summary ---
Author Organization Health system Address [address] [place] [address] Care Team Providers Care Mortgage Protection Sales Name Role Phone Lidia Benson ADMINISTRATIVE RECEPTIONIST Primary Care Provider [phone] Adelina Baca ADMINISTRATIVE RECEPTIONIST Primary Care Provider [phone] Antoni Ohara DO Primary Care Provider [phone] Encounter Details Date Type Department Care Team (Late st Contact Info) Description 11/08/2019 Lab Requisition [facility] Pathology & Laboratory Medicine - [address] [address] Unknown, Provider, Social History Tobacco Use Types [...] 12:40 EST) Hold Hold 11/08/2019 22:01 EST [facility] Blood VENOUS BLOOD / Unknown 11/08/2019 12:40 EST 11/08/2019 20:59 EST Provider Unknown LAB INFO SERVICE AND SUPPORT & PHONE RESULT Performing Organization Address [facility]/ZIP Co de Phone Number [facility] [address] [place] [address] * SEX HORMONE BINDING GLOBULIN (11/08/2019 12:40 EST) Sex Hormone Bnd Glob 8.9 See Note nmol/L 11/09/2019 10:09 EST [facility] Comment: NOTE: ---- Reference Ranges for Females Pre-Menopausal: ?>10.8 nmol/L Post-Menopausal: ?? 23.2 - 159.1 nmol/L Reference ranges for Sex Hormone Binding Globulin in female patients <21 years old have not been established. Blood VENOUS BLOOD / Unknown 11/08/2019 12:40 EST 11/08/2019 20:59 EST Narrative [facility] - 11/09/2019 10:09 EST The results of this assay can be falsely lowered due to the consumption of Biotin. Provider Unknown CHEMISTRY & BLOOD GA S ORDERABLES Performing Organization Address [facility] Co de Phone Number [facility] [address] [place] [address] * DHEA SULFATE (11/08/2019 12:40 EST) DHEA Sulfate 186 75 - 410 ug/dL 11/09/2019 8:46 EST [facility] Blood VENOUS BLOOD / Unknown 11/08/2019 12:40 EST 11/08/2019 20:59 EST Provider Unknown CHEMISTRY & BLOOD GA S ORDERABLES Performing Organization Address [facility] Co de Phone Number [facility] [address] [place] [address] documented in this encounter Visit Diagnoses Not on filedocumented in this encounter Care Teams Mortgage Protection Sales Relationship Specialty Start Date End Date Lidia Benson NP [address] [place] [address] PCP - General 09/27/17 03/29/22 Adelina Baca NP [address] [place] [address] PCP - General Family Medicine - Primary Care 03/30/22 05/08/24 Antoni Ohara DO [address] [place] [address] PCP - General Family Medicine - Primary Care 05/09/24 documented as of this encounter
--- OUTSIDE RECORDS SUMMARY | 2024-06-15 22:26 | XMS_ITS | Encounter Summary ---
Author Organization [facility] Address [address] [place] [address] Care Team Providers Care Head Tennis Professional Name Role Phone Marie Dixon MD Primary Care Provider [phone] Reason for Visit * Reason Comments Pre-op Exam Encounter Details Date Type Department Care Team (Late st Contact Info) Description 10/17/2015 14:00 EST Office Visit [facility] Plastic, Reconstructive & Cosmetic Surgery - [address], [address] [place] [phone] Sid Lei MD [address] [place] [phone] Breast asymmetry (Primary Dx); Ruptured left [...] Notes * Sid Lei MD - 10/19/2015 6155 EST Shaneka returns to discuss options for [...] this patient; 20 minutes was spent in gwpb-so-dcwa counseling for the abovediagnosis. documented in this [...] documented as of this encounter Care Teams Head Tennis Professional Relationship Specialty Start Date End Date Marie Dixon MD [address] [place] [phone] PCP - General 12/27/14 09/26/17 documented as of this encounter
--- OUTSIDE RECORDS SUMMARY | 2024-06-15 22:26 | XMS_ITS | Encounter Summary ---
Author Organization [facility] Address [address] [place] [address] Care Team Providers Care Sales Department Supervisor Name Role Phone Marie Dixon MD Primary Care Provider [phone] Reason for Visit * Reason Comments Breast Problem symmetry Encounter Details Date Type Department Care Team (Late st Contact Info) Description 07/25/2015 11:00 EST Office Visit [facility] Plastic, Reconstructive & Cosmetic Surgery - [address], [address] [place] [phone] Sid Lei MD [address] [place] [phone] Breast asymmetry (Primary Dx) Social History [...] this patient; 25 minutes was spent in dxtw-ru-xfww counseling for the abovediagnosis. documented in this [...] 10/17/2015 added in this encounter Care Teams Sales Department Supervisor Relationship Specialty Start Date End Date Marie Dixon MD [address] [place] [phone] PCP - General 12/27/14 09/26/17 documented as of this encounter
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
--- OUTSIDE RECORDS SUMMARY | 2024-06-15 22:26 | XMS_ITS | Encounter Summary ---
Author Organization [facility] Address [address] [place] [address] Care Team Providers Care Underwriting Assistant Name Role Phone Adelina Baca NP Primary Care Provider [phone] Antoni Ohara DO Primary Care Provider [phone] Encounter Details Date Type Department Care Team (Late st Contact Info) Description 05/19/2023 Lab Requisition [facility] Pathology & Laboratory Medicine - [facility] [address] [place], [place] [address] Outr Resulting Lab, Provider Social History Tobacco [...] 50 - 100 ug/mL 05/19/2023 18:26 EDT [facility] Blood VENOUS BLOOD / Unknown 05/19/2023 8:55 EDT 05/19/2023 17:50 EDT Provider Outr Resulting Lab CHEMISTRY & BLOOD GAS ORDERABLES [facility] [address] [place] [address] documented in this encounter Visit Diagnoses Not on filedocumented in this encounter Care Teams Underwriting Assistant Relationship Specialty Start Date End Date Adelina Baca, DISCIPLINARY HEARING OFFICER [address] [place] [address] PCP - General Family Medicine - Primary Care 03/30/22 05/08/24 Antoni Ohara DO [address] [place] [phone] PCP - General Family Medicine - Primary Care 05/09/24 documented as of this encounter
--- OUTSIDE RECORDS SUMMARY | 2024-06-15 22:26 | XMS_ITS | Encounter Summary ---
Author Organization [facility] Address [address] [place] [address] Care Team Providers Care Monitoring Tech Name Role Phone Marie Dixon MD Primary Care Provider [phone] Reason for Visit * Reason Onset Date Comments Other 01/15/2015 Encounter Details Date Type Department Care Team (Late st Contact Info) Description 01/15/2015 Telephone [facility] Plastic, Reconstructive & Cosmetic Surgery - [address], [address] [place], [place] [phone] Sid Lei MD [address] [phone] Other Social History Tobacco Use [...] on filedocumented in this encounter Care Teams Monitoring Tech Relationship Specialty Start Date End Date Marie Dixon MD [address] [place] [phone] PCP - General 12/27/14 09/26/17 documented as of this encounter
--- OUTSIDE RECORDS SUMMARY | 2024-06-15 22:26 | XMS_ITS | Encounter Summary ---
Author Organization [facility] Address [address] [place] [address] Care Team Providers Care Hotel Front Desk Clerk Name Role Phone Antoni Ohara DO Primary Care Provider [phone] Reason for Visit * Reason Onset Date Comments Imaging 06/08/2024 Diagnostic Imaging Report 06/08/2024 Encounter Details Date Type Department Care Team (Late st Contact Info) Description 06/08/2024 Telephone [facility] Plastic, Reconstructive & Cosmetic Surgery - [address], [address] [place] [address] Sid Lei MD [address] [place] [phone] Imaging; Diagnostic Imaging Report Social History [...] Gabriel - 06/08/2024 0853 EDT Gabby from [facility] stated she received a release from Sid for imaging. She needs to know exactly whatimages as she is not going to send everything. She would like a call back today if possible before noon as she is leaving at noon. documented in this encounter Plan of Treatment Not on file documented as of this encounter Visit Diagnoses Not on filedocumented in this encounter Care Teams Hotel Front Desk Clerk Relationship Specialty Start Date End Date Antoni Ohara DO [address] [place] [phone] PCP - General Family Medicine - Primary Care 05/09/24 documented as of this encounter
--- OUTSIDE RECORDS SUMMARY | 2024-06-15 22:26 | XMS_ITS | Encounter Summary ---
Author Organization [facility] Address [address] [place] [address] Care Team Providers Care Accountant Name Role Phone Lidia Benson [employer] Primary Care Provider [phone] Adelina Baca [employer] Primary Care Provider [phone] Antoni Ohara DO Primary Care Provider [phone] Encounter Details Date Type Department Care Team (Late st Contact Info) Description 02/12/2020 Lab Requisition [facility] Pathology & Laboratory Medicine - [facility] [address] [place], [place] [phone] Outr Resulting Lab, Provider Social History Tobacco [...] gonorrhoeae Result Negative Negative 02/13/2020 16:10 EDT [facility] Chlamydia trachomatis Result Negative Negative 02/13/2020 16:10 EDT [facility] Swab ENTIRE WALL OF CERVIX / Unknown 02/12/2020 14:45 EDT 02/12/2020 20:57 EDT Provider Outr Resulting Lab MICROBIOLOGY - GENERAL ORDERABLES Performing Organization Address City/State/[facility] Co de Phone Number [facility] [address] [place] [address] documented in this encounter Visit Diagnoses Not on filedocumented in this encounter Care Teams Accountant Relationship Specialty Start Date End Date Lidia Benson NP [address] [place] [address] PCP - General 09/27/17 03/29/22 Adelina Baca NP [address] [place] [address] PCP - General Family Medicine - Primary Care 03/30/22 05/08/24 Antoni Ohara DO [address] [place] [phone] PCP - General Family Medicine - Primary Care 05/09/24 documented as of this encounter
--- OUTSIDE RECORDS SUMMARY | 2024-06-15 22:26 | XMS_ITS | Encounter Summary ---
Author Organization [facility] Address [address] [place] [address] Care Team Providers Care Film Crew Member Name Role Phone Unknown, Provider Primary Care Provider [phone] Encounter Details Date Type Department Care Team (Late st Contact Info) Description 10/16/2010 Results Only [facility] Laboratory Services - [facility] ([facility] [address] [place], [place] [address] Violetta Ponce, SUPERVISOR ROUGH END [address] [facility] [address] [place] [phone] Social History Tobacco Use Types Packs/Day Years [...] ? SHANEKA LANDON ? Accession #: ? [id number] ? : ? 1980 (Age: 30) ??F ?Collect Date: ? 10/16/2010 ? Location: ? [facility] ? Receive Date: ? 10/20/2010 ? Provider: ?VIOLETTA W NAT SUPERVISOR ROUGH END ? Copy to: ? Specimen/Source: ?Pap Test, [...] [facility] 10/16/2010 10/20/2010 Violetta Ponce SUPERVISOR ROUGH END PATHOLOGY ORDERABLES [facility] [address] [place] [address] documented in this encounter Visit Diagnoses Not on filedocumented in this encounter Care Teams Film Crew Member Relationship Specialty Start Date End Date Unknown, Provider, PCP - General 09/08/09 09/08/11 documented as of this encounter
--- NOTE | 2024-06-15 22:41 | W.ED.GENAD ---
Discharge Plan Disposition Patient Disposition: Home Condition: Good Discharge Details Clinical Impression: Blurred vision, bilateral Primary Care Provider: Antoni Ohara ED Provider: Savana Aranda Home Meds and New Rx's Prescriptions: Continued aripiprazole 10 mg tablet 10 mg PO DAILY fludrocortisone 0.1 mg tablet 0.2 mg PO DAILY Qty: 90 3RF Rx Instructions: Reported by Terrance [facility] 02/23/2024 metoprolol tartrate 50 mg tablet 50 mg PO BID Qty: 90 3RF levothyroxine 75 mcg tablet See Rx Instructions .ROUTE .COMPLEX Qty: 90 3RF Dose Instruction: TAKE 1 TABLET BY MOUTH DAILY Rx Instructions: TAKE 1 TABLET BY MOUTH DAILY divalproex 500 mg Tablet,Delayed Release (Dr/Ec) 1,000 mg PO BID topiramate [Topamax] 50 mg tablet 50 mg PO BID Patient Comments: Take 1 tablet by mouth twice a day Aristada 882 mg/3.2 mL suspension,extended rel syring 882 mg IM Q4W Patient Comments: not taking Rx Instructions: every 4 weeks Discharge Instructions Instructions: Presbyopia and refractive errors Additional Instructions: Follow up with the ophthalmology or optometry practice of your choice. Call tomorrow to schedule an appointment. Return to the emergency department for new or worsening symptoms. HPI General Mode of arrival: ambulatory. Date/Time Provider Initiated Documentation: 06/15/24 22:19. Limitations to Documentation: no limitations. Information obtained by: patient and old records reviewed (ED visit notes 06/14/14, 06/08/24. Annual visit note 04/12/24). HPI Narrative: 43yo F with hx POTS, T2DM, hypothyroid, schizophrenia, presenting for double blurred vision. Symptoms have been persistent and worsening over the past 3 months. No acute worsening today. States that her vision looks fuzzy out of both eyes. Does not see two of things, but everything is doubly blurred. No eye pain, tearing, or redness. No eye injury or trauma. Does not wear contacts. Last saw an eye professional over a year ago and was prescribed eyeglasses but has not been able to get them due to cost. Denies headache, nausea, vomiting, vertigo, numbness, tingling, focal weakness, or other concerns. Related Data Home Medications ?Medication ?Instructions ?Recorded ?Confirmed aripiprazole lauroxil 882 mg/3.2 882 mg IM Q4W 07/12/21 06/15/24 mL suspension, ext.rel. IM syringe (Aristada) topiramate 50 mg tablet (Topamax) 50 mg PO BID 07/12/21 06/15/24 divalproex 500 mg tablet,delayed 1,000 mg PO BID 09/17/21 06/15/24 release aripiprazole 10 mg tablet 10 mg PO DAILY 02/22/24 06/15/24 fludrocortisone 0.1 mg tablet 0.2 mg (2 x 0.1 mg) PO DAILY #90 05/10/24 06/15/24 tabs metoprolol tartrate 50 mg tablet 50 mg PO BID #90 tabs 06/01/24 06/15/24 levothyroxine 75 mcg tablet See Rx Instructions .Route 06/05/24 06/15/24 .COMPLEX #90 tabs Previous Rx's ?Medication ?Instructions ?Recorded fludrocortisone 0.1 mg tablet 0.2 mg (2 x 0.1 mg) PO DAILY #90 05/10/24 tabs metoprolol tartrate 50 mg tablet 50 mg PO BID #90 tabs 06/01/24 levothyroxine 75 mcg tablet See Rx Instructions .Route 06/05/24 .COMPLEX #90 tabs Allergies Allergy/AdvReac Type Severity Reaction Status Date / Time codeine Allergy Mild unknown Verified 06/15/24 22:24 General Stated Complaint: EyeProblem CECILIA: 4 Review of Systems Narrative: see HPI Exam Narrative Exam Narrative: General: Alert, well appearing, well nourished, in no acute distress. Head: Normocephalic, atraumatic. No temporal tenderness. Neck: Trachea midline, ?Neck supple. ENT: ?MMM.? Cardiac: ?No cyanosis. Resp: No respiratory distress. Speaking in full sentences. Abd: ?Nn-distended Extremities: ?No deformities.? Eye: ?PERRL ?EOM full and pain free.? Visual ramirez intact to confrontation bilaterally. No gaze palsy. No change in symptoms with monocular vs binocular vision. No diplopia. R: ? ? VA- 20/40 ??Lids/lashes- nml ?Conjuctiva-white ?Cornea: Clear ? L: ? ? VA- 20/40 ??Lids/lashes- nml ?Conjuctiva-white ?Cornea: Clear ? Neuro: ? GCS 15.? PERRL.? EOMI.? Fluent speech, no dysarthria. No dysmetria on finger to nose CRANIAL NERVES: II: Pupils equal and reactive, III, IV, : EOM intact, no gaze preference or deviation, no nystagmus. V: normal sensation in V1, V2, and V3 segments bilaterally VII: no asymmetry, no nasolabial fold flattening VIII: normal hearing to speech IX, X: normal palatal elevation, no uvular deviation XI: 5/5 head turn and 5/5 shoulder shrug bilaterally XII: midline tongue protrusion Course Vital Signs Vital signs: Vital Signs Temperature 36.5 C 06/15/24 22:22 Pulse 85 06/15/24 22:22 Respiratory Rate 16 06/15/24 22:22 Blood Pressure 126/76 06/15/24 22:22 Pulse Oximetry 100 06/15/24 22:22 Temperature 36.5 C 06/15/24 22:25 Temperature Source Oral 06/15/24 22:25 Pulse 85 06/15/24 22:25 Respiratory Rate 16 06/15/24 22:25 Respiratory Effort Normal, Non-Labored 06/15/24 22:25 Blood Pressure 126/76 06/15/24 22:25 Blood Pressure Position Sitting 06/15/24 22:25 Pulse Oximetry 100 06/15/24 22:25 Oxygen Delivery Method Room Air 06/15/24 22:25 Oxygen Flow Rate 0 06/15/24 22:22 Pain Level 0 06/15/24 22:25 Medical Decision Making 43yo F with hx POTS, T2DM, hypothyroid, schizophrenia, presenting for double blurred vision worsening over the past 3 months. No acute worsening today, no eye trauma, not a contact wearer, no eye pain or redness. Describes fuzzy vision out of both eyes, does not clearly see two of things, but everything is doubly blurred. Last saw an eye professional over a year ago and was prescribed eyeglasses but has not been able to get them due to cost. Vital signs reassuring on arrival. Systemically well. VA 20/40 in both eyes. No visual field defects, gaze palsy, eye redness or discharge. Normal cranial nerve exam. No proptosis. No change in symptoms with one eye closed; persists unchanged whether L, R, or both eyes are open. Unlikely from patient's description that this is true dipolpia; regardless with bilateral monooccular symptoms and otherwise reassuring exam not concerning for intracranial thrombosis/CVA/aneurysm/dissection. Not suggestive of meninigits, MG, GBS, MS, muscular entrapment, giant cell arteritis. Would not get labs or CT/MRI imaging at this time. Advised ophthalmology followup (pt on currently on cancelation list for appt with [facility]); will send referral in attempt to expedite. Discharged home; discharge instructions and return precautions were reviewed with patient who verbalized understanding. All questions were answered and she is in full agreement with the plan. Medical Records Medical records reviewed: Yes I reviewed the patient's medical records. 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 Diabetes mellitus type II, controlled (Acute) POTS (postural orthostatic tachycardia syndrome) (Acute) Plantar warts (Acute) Fatigue (Acute) Pelvic pain (Acute) Orthostatic hypotension (Acute) Chronic diarrhea (Acute) Nonalcoholic steatohepatitis (Acute) Hypothyroid (Chronic) Hirsutism (Acute) Dysfunctional uterine bleeding (Acute) Oligomenorrhea (Acute) Schizophrenia (Chronic) Medical History Uterine mass Non compliance w medication regimen Yeast dermatitis RLS (restless legs syndrome) H/O suicide attempt Schizoaffective disorder Deviated nasal septum Trigeminal neuralgia of left side of face (01/03/18) Type 2 diabetes mellitus History of hypothyroidism Drug overdose, intentional Surgical History S/p breast implant removal Sep 2019 S/P breast implant, left H/O pilonidal cyst S/P foot surgery Ligation of fallopian tube Family History Mother Diabetes Father Heart disease Social History Smoking/Tobacco Use Status: Current every day Tobacco Type: e-cigarettes Quit status: considering quitting Smoking risk assessment performed?: Yes Alcohol Intake: never Drug use: Current Sobriety Substance use type: does not use Adopted: No Caregiver/Support person: No Foster care: No Household members: none Housing: apartment Number of Children: 2 number of grandchildren: 0 Education Level: college Details: Some classes - no degree Do you need help understanding health information?: Never current occupation: Disabled Pets and animals: No (1) Sexually active: No Do you think of yourself as: straight/heterosexual Current gender identity: female What is your relationship status?: How often do you talk on the phone with friends or family?: once per week How often do you get together with friends or relatives?: never Do you belong to any clubs or organized social groups?: no Panel score (0-1 are the most socially isolated patients): 0 What type of physical activity do you participate in: walking Duration: 15-30 minutes/day Frequency: daily Lauren/Hinduism: Restorationism Special lauren needs: No Seatbelt use: always Helmet use: Yes Drive intox or ride w/intox wagon driver salesperson: No Do you feel safe at home: Yes Do you feel safe in your relationship?: Yes Female Reproductive History Menstrual Age of Menarche: 16 Duration of menses: other control method: permanent sterilization History History 2 Para 2 Hx # Term Pregnancies Multiple births Hx # Pregnancies Ectopic pregnancies AB induced Hx Number of Living Children AB spontaneous Past Pregnancies Del. Date GA/Weeks # Preg Succ Route Wgt Sex Labor Lgth Anesthesia Location Prov Complic 08/30/01 40 No Yes vaginal Female 03/25/02 40 No Yes vaginal Male Delivery Date: 08/30/01 Last Updated by: [facility]: 03/25/02 Last Updated by: Aimee EncisoSELECT [facility]
== END 2024-06-15 22:56 | disposition home or self-care (01) ==
PROVIDERS: Emergency Provider Student in an Organized Health Care Education/Training Program; PCP Family Medicine
DX: H53.8 Other visual disturbances (principal); E11.9 Type 2 diabetes mellitus without complications
CPT/HCPCS: 99282

== ENCOUNTER 2024-08-01 00:45 | Emergency (ER) | payer MEDICAID, SELFPAY ==
[2024-08-01 00:44] VITALS: BP 90/69; PULSE 94; RESP 18; TEMP 36.1; O2SAT 97
--- NOTE | 2024-08-01 00:55 | ED.GENADUL_ITS ---
Discharge Plan Disposition Patient Disposition: Home Condition: Good Discharge Details Chief Complaint: GenMedical Clinical Impression: Nerve pain Primary Care Provider: Antoni Ohara ED Provider: Ankur Huffman Home Meds and New Rx's Prescriptions: No Action divalproex 500 mg tablet,delayed release (DR/EC) 1,000 mg PO BID Qty: 360 3RF aripiprazole 10 mg tablet 10 mg PO DAILY Qty: 90 3RF topiramate [Topamax] 50 mg tablet 50 mg PO BID Qty: 180 3RF fludrocortisone 0.1 mg tablet 0.2 mg PO DAILY Qty: 90 3RF Rx Instructions: Reported by Terrance [place] 02/23/2024 metoprolol tartrate 50 mg tablet 50 mg PO BID Qty: 90 3RF levothyroxine 75 mcg tablet See Rx Instructions .ROUTE .COMPLEX Qty: 90 3RF Dose Instruction: TAKE 1 TABLET BY MOUTH DAILY Rx Instructions: TAKE 1 TABLET BY MOUTH DAILY Discharge Instructions Instructions: Neuropathic pain Additional Instructions: At this time you appear to have some mild neuropathic pain around the saphenous nerve. It seems to be originating around the knee. Please apply the anti- inflammatory Voltaren gel to the inside portion of your knee 2-3 times daily. Do this for the next 1 to 2 weeks. If you have no improvement of your symptoms with this you may require a medication like gabapentin to help manage the irritation. If you notice any worsening of your symptoms, or any new symptoms such as vomiting, diarrhea, fever, chills, shortness of breath, chest pain, numbness, weakness, or fainting , please return immediately to the emergency de partment for reevaluation. Please follow up with your primary care provider as soon as possible for reassessment and reevaluation. As always, it was a pleasure participating in your medical care today. Referrals: Antoni Ohara DO [Primary Care Provider] - HPI General Date/Time Provider Initiated Documentation: 08/01/24 00:48 . HPI Narrative: This is a 43-year-old female with a past medical history of insulin controlled diabetes, POTS, schizophrenia, hypothyroidism, chronically low systolic blood pressure, who presents today for evaluation via EMS of right leg medial calf intermittent burning sensation. Patient states that for the last 2 weeks she has had intermittent burning sensation there. It travels from the medial aspect of the knee down distally along the medial calf. Patient states that it last for few seconds and then goes away, and then will come back again. She denies any chest pain or shortness of breath. She denies any trauma. She denies any numbness or tingling in her toes. She denies any medial thigh pain. She denies any pain on the lateral aspects of her leg. She has no other complaints at this time. She denies any chest pain or shortness of breath. No other complaints at this time. No recent long flights surgeries or procedures. Related Data Home Medications ?Medication ?Instructions ?Recorded ?Confirmed fludrocortisone 0.1 mg tablet 0.2 mg (2 x 0.1 mg) PO DAILY #90 05/10/24 08/01/24 tabs metoprolol tartrate 50 mg tablet 50 mg PO BID #90 tabs 06/01/24 08/01/24 levothyroxine 75 mcg tablet See Rx Instructions .Route 06/05/24 08/01/24 .COMPLEX #90 tabs aripiprazole 10 mg tablet 10 mg PO DAILY #90 tabs 07/16/24 08/01/24 divalproex 500 mg tablet,delayed 1,000 mg (2 x 500 mg) PO BID #360 07/16/24 08/01/24 release tabs topiramate 50 mg tablet (Topamax) 50 mg PO BID #180 tabs 07/16/24 08/01/24 Previous Rx's ?Medication ?Instructions ?Recorded fludrocortisone 0.1 mg tablet 0.2 mg (2 x 0.1 mg) PO DAILY #90 05/10/24 tabs metoprolol tartrate 50 mg tablet 50 mg PO BID #90 tabs 06/01/24 levothyroxine 75 mcg tablet See Rx Instructions .Route 06/05/24 .COMPLEX #90 tabs aripiprazole 10 mg tablet 10 mg PO DAILY #90 tabs 07/16/24 divalproex 500 mg tablet,delayed 1,000 mg (2 x 500 mg) PO BID #360 07/16/24 release tabs topiramate 50 mg tablet (Topamax) 50 mg PO BID #180 tabs 07/16/24 Allergies Allergy/AdvReac Type Severity Reaction Status Date / Time codeine Allergy Mild unknown Verified 08/01/24 00:48 General Stated Complaint: GenMedical CECILIA: 4 Review of Systems All systems reviewed & are unremarkable except as noted in HPI and below Exam Narrative Exam Narrative: 1.Const: Well-nourished, Well-developed, appearing stated age 2.Eyes: PERRL, no conjunctival injection, and symmetrical lids. 3.ENT: Atraumatic external nose and ears. Moist MM. Neck: Symmetric, trachea midline, No thyromegaly. 4.CVS: +S1/S2, Peripheral pulses 2+ and equal in all extremities. Brisk capillary refill in all extremities. 5.RESP: Unlabored respiratory effort. Clear to auscultation bilaterally. No wheezes rales or rhonchi 6.GI: Soft, Nontender/Nondistended, No hepatosplenomegaly. No guarding or rebound. 7.MSK: Normocephalic/Atraumatic, Extremities w/o deformity or ttp No cyanosis or clubbing, Normal movement of all extremities. No swelling or tenderness around the knee. No calf pain or calf tenderness. No unilateral calf swelling. No edema or redness or warmth. Normal sensation throughout the right lower extremity in the left lower extremity. Dorsalis pedis and posterior tibial pulse +2 bilaterally. 8.Skin: Warm, Dry. No rashes or lesions. 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 Sensation grossly intact, no focal neurologic deficits. 10.Psych: (AAO) x3. Appropriate mood and affect Course Vital Signs Vital signs: Vital Signs Temperature 36.1 C L 08/01/24 00:44 Pulse 94 H 08/01/24 00:44 Respiratory Rate 18 08/01/24 00:44 Blood Pressure 90/69 L 08/01/24 00:44 Pulse Oximetry 97 08/01/24 00:44 Temperature 36.1 C L 08/01/24 00:44 Pulse 94 H 08/01/24 00:44 Respiratory Rate 18 08/01/24 00:44 Respiratory Effort Normal 08/01/24 00:48 Blood Pressure 90/69 L 08/01/24 00:44 Blood Pressure Position Sitting 08/01/24 00:44 Pulse Oximetry 97 08/01/24 00:44 Oxygen Delivery Method Room Air 08/01/24 00:44 Oxygen Flow Rate 0 08/01/24 00:44 Pain Level 5 08/01/24 00:44 Medical Decision Making This is a 43-year-old female with a past medical history of insulin controlled diabetes, POTS, schizophrenia, hypothyroidism, chronically low systolic blood pressure, who presents today for evaluation via EMS of right leg medial calf intermittent burning sensation. Patient states that for the last 2 weeks she has had intermittent burning sensation there. It travels from the medial aspect of the knee down distally along the medial calf. Patient states that it last for few seconds and then goes away, and then will come back again. She denies any chest pain or shortness of breath. She denies any trauma. She denies any numbness or tingling in her toes. She denies any medial thigh pain. She denies any pain on the lateral aspects of her leg. She has no other complaints at this time. She denies any chest pain or shortness of breath. No other complaints at this time. No recent long flights surgeries or procedures. Exam demonstrates a notably reassuring assessment. No neurologic deficit that can be appreciated. Normal sensation throughout the foot. Normal dorsalis pedis and posterior tibial pulse. No evidence to suggest DVT, PE, cellulitis, or significant proximal nerve compression. I suspect there is mild irritation around the medial aspect of the knee through the path of the saphenous nerve that could be causing the irritation from the medial knee down to the calf and ankle. Symptoms appear consistent with a neuralgia like pain rather than evidence of a vascular or osseous compromise or injury. Will recommend Voltaren gel to the proximal irritation point around the knee to help settle down potential inflammatory components that could be causing the symptoms. If patient has persistent symptoms after 1 to 2 weeks of conservative therapy with Voltaren gel ice and rest, then we would recommend transitioning to gabapentin. Discussed red flags for which to return. I have extensively reviewed the treatment plan and discharge instructions with the patient. I have addressed all patient concerns at this time. The patient was made aware of what symptoms to monitor for that would warrant a return to the emergency department. Discussed the plan with the patient, they demonstrate verbal understanding and agreement with our assessment and plan at this time. The documentation in this chart was dictated using [employer] dictation software. Please excuse any dictation errors. 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 Diabetes mellitus type II, controlled (Acute) POTS (postural orthostatic tachycardia syndrome) (Acute) Plantar warts (Acute) Fatigue (Acute) Pelvic pain (Acute) Orthostatic hypotension (Acute) Chronic diarrhea (Acute) Nonalcoholic steatohepatitis (Acute) Hypothyroid (Chronic) Hirsutism (Acute) Dysfunctional uterine bleeding (Acute) Oligomenorrhea (Acute) Schizophrenia (Chronic) Medical History Uterine mass Non compliance w medication regimen Yeast dermatitis RLS (restless legs syndrome) H/O suicide attempt Schizoaffective disorder Deviated nasal septum Trigeminal neuralgia of left side of face (01/03/18) Type 2 diabetes mellitus History of hypothyroidism Drug overdose, intentional Surgical History S/p breast implant removal Sep 2019 S/P breast implant, left H/O pilonidal cyst S/P foot surgery Ligation of fallopian tube Family History Mother Diabetes Father Heart disease Social History Smoking/Tobacco Use Status: Current every day Tobacco Type: e-cigarettes Quit status: considering quitting Smoking risk assessment performed?: Yes Alcohol Intake: never Drug use: Current Sobriety Substance use type: does not use Adopted: No Caregiver/Support person: No Foster care: No Household members: none Housing: apartment Number of Children: 2 number of grandchildren: 0 Education Level: college Details: Some classes - no degree Do you need help understanding health information?: Never current occupation: Disabled Pets and animals: No (1) Sexually active: No Do you think of yourself as: straight/heterosexual Current gender identity: female What is your relationship status?: How often do you talk on the phone with friends or family?: once per week How often do you get together with friends or relatives?: never Do you belong to any clubs or organized social groups?: no Panel score (0-1 are the most socially isolated patients): 0 What type of physical activity do you participate in: walking Duration: 15-30 minutes/day Frequency: daily Lauren/Zoroastrian: Faith Special lauren needs: No Seatbelt use: always Helmet use: Yes Drive intox or ride w/intox 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 Date GA/Weeks # Preg Succ Route Wgt Sex Labor Lgth Anesth esia Location Prov Complic 08/30/01 40 No Yes vaginal Female 03/25/02 40 No Yes vaginal Male Delivery Date: 08/30/01 [facility] Last Updated by: [facility]
[2024-08-01 00:56] VITALS: RESP 18
[2024-08-01] MEDS: Diclofenac 1% Gel 100 GM TUBE TP (00:59)
== END 2024-08-01 01:03 | disposition home or self-care (01) ==
LOC: ER 02:22
PROVIDERS: Emergency Provider Student in an Organized Health Care Education/Training Program; PCP Family Medicine
DX: E11.42 Type 2 diabetes mellitus with diabetic polyneuropathy (principal); Z79.4 Long term (current) use of insulin; G90.A Postural orthostatic tachycardia syndrome [POTS]
CPT/HCPCS: 99283

== ENCOUNTER 2024-08-08 19:05 | Emergency (ER) | payer MEDICAID, SELFPAY ==
[2024-08-08 19:22] VITALS: BP 149/90; PULSE 98; RESP 16; TEMP 36.1; O2SAT 98
--- NOTE | 2024-08-08 19:45 | ED.GENADUL_ITS ---
Discharge Plan Disposition Patient Disposition: Home Condition: Stable Discharge Details Clinical Impression: Anxiety, Depression Primary Care Provider: Antoni Ohara ED Provider: Zandra Varghese Home Meds and New Rx's Prescriptions: Continued divalproex 500 mg tablet,delayed release (DR/EC) 1,000 mg PO BID Qty: 360 3RF aripiprazole 10 mg tablet 10 mg PO DAILY Qty: 90 3RF topiramate [Topamax] 50 mg tablet 50 mg PO BID Qty: 180 3RF Jardiance 10 mg tablet 10 mg PO DAILY Qty: 30 3RF metformin 750 mg tablet extended release 24 hr 750 mg PO DAILY Qty: 30 3RF Ozempic 0.25 mg or 0.5 mg (2 mg/3 mL) pen injector 0.25 mg subcut QWEEK Qty: 3 0RF Rx Instructions: for 4 weeks fludrocortisone 0.1 mg tablet 0.2 mg PO DAILY Qty: 90 3RF Rx Instructions: Reported by Terrance Adkinseat 02/23/2024 metoprolol tartrate 50 mg tablet 50 mg PO BID Qty: 90 3RF levothyroxine 75 mcg tablet See Rx Instructions .ROUTE .COMPLEX Qty: 90 3RF Dose Instruction: TAKE 1 TABLET BY MOUTH DAILY Rx Instructions: TAKE 1 TABLET BY MOUTH DAILY Discharge Instructions Instructions: Suicide Prevention, Tips to Help You [place] in Uncertain Times, Anxiety, Adult ED Additional Instructions: At this time [facility] as deemed safe for you to go home. Please call their crisis number if you have any recurrent thoughts of harming yourself or others. You also may return to the ER for any worsening. Please follow-up with [facility] as discussed with the psych liaison. Follow up with primary care provider in 3-5 days. Return to ED sooner if any worsening or concerns. Referrals: [facility] [Provider Group] - 1 day (Call for any concerns) Antoni Ohara DO [Primary Care Provider] - 1 week Discharge Data Discharge Date/Time-TO BE ENTERED AT DEPARTURE: 08/08/24 20:37 HPI General Mode of arrival: ambulatory . Date/Time Provider Initiated Documentation: 08/08/24 19:19 . Limitations to Documentation: no limitations . Information obtained by: patient, family (Mother), RN notes reviewed and old records reviewed . HPI Narrative: 43-year-old female with a past medical history of schizoaffective disorder, hypertension, type 2 diabetes mellitus which she reports she was just diagnosed with today, presents with depression, anxiety and states recent stressors she denies any suicidal ideations however she states I do not want to live anymore she denies having a plan. She reports feeling this way for approximately 1 week. Denies any drugs alcohol or smoking. She reports she has been taking her prescribed medications as directed. She does have a history of an intentional drug overdose. She reports that she is requested a increase in her med dose but that has not happened yet. Related Data Home Medications ?Medication ?Instructions ?Recorded ?Confirmed fludrocortisone 0.1 mg tablet 0.2 mg (2 x 0.1 mg) PO DAILY #90 05/10/24 08/08/24 tabs metoprolol tartrate 50 mg tablet 50 mg PO BID #90 tabs 06/01/24 08/08/24 levothyroxine 75 mcg tablet See Rx Instructions .Route 06/05/24 08/08/24 .COMPLEX #90 tabs aripiprazole 10 mg tablet 10 mg PO DAILY #90 tabs 07/16/24 08/08/24 divalproex 500 mg tablet,delayed 1,000 mg (2 x 500 mg) PO BID #360 07/16/24 08/08/24 release tabs topiramate 50 mg tablet (Topamax) 50 mg PO BID #180 tabs 07/16/24 08/08/24 empagliflozin 10 mg tablet 10 mg PO DAILY #30 tabs 08/08/24 08/08/24 (Jardiance) metformin 750 mg tablet,extended 750 mg PO DAILY #30 tabs 08/08/24 08/08/24 release 24 hr semaglutide 0.25 mg or 0.5 mg (2 0.25 mg (0.368 mL) subcut QWEEK #3 08/08/24 08/08/24 mg/3 mL) subcutaneous pen injector mL (Ozempic) Previous Rx's ?Medication ?Instructions ?Recorded fludrocortisone 0.1 mg tablet 0.2 mg (2 x 0.1 mg) PO DAILY #90 05/10/24 tabs metoprolol tartrate 50 mg tablet 50 mg PO BID #90 tabs 06/01/24 levothyroxine 75 mcg tablet See Rx Instructions .Route 06/05/24 .COMPLEX #90 tabs aripiprazole 10 mg tablet 10 mg PO DAILY #90 tabs 07/16/24 divalproex 500 mg tablet,delayed 1,000 mg (2 x 500 mg) PO BID #360 07/16/24 release tabs topiramate 50 mg tablet (Topamax) 50 mg PO BID #180 tabs 07/16/24 empagliflozin 10 mg tablet 10 mg PO DAILY #30 tabs 08/08/24 (Jardiance) metformin 750 mg tablet,extended 750 mg PO DAILY #30 tabs 08/08/24 release 24 hr semaglutide 0.25 mg or 0.5 mg (2 0.25 mg (0.368 mL) subcut QWEEK #3 08/08/24 mg/3 mL) subcutaneous pen injector mL (Ozempic) Allergies Allergy/AdvReac Type Severity Reaction Status Date / Time codeine Allergy Mild unknown Verified 08/08/24 19:27 General Stated Complaint: PsychEval CECILIA: 2 Review of Systems All systems reviewed & are unremarkable except as noted in HPI and below Psychiatric Psychiatric: Reports as per HPI, Reports depression and Reports panic attacks Exam Narrative Exam Narrative: Constitutional: Alert and oriented x3. Appears stated age. Normal body habitus. Head: Normocephalic, no trauma. Eyes: Pupils PERRL, Red reflex noted, EOM's intact. Eyelids symmetrical without lesions, discharge, or swelling. ENT: Bilateral TM's WNL, External ear normal to inspection, no mastoid TTP, swelling, or erythema, Nasal turbinates WNL, no nasal discharge. Normal dentition, Posterior pharynx WNL, no exudate. Chest: RRR, Normal S1, S2, distal pulses intact. Resp: Lungs clear to auscultation bilaterally, no wheezes, rales, or rhonchi. Abdomen: Soft, non-distended, Normoactive bowel sounds all 4 quads. Musculoskeletal: Normal gait, Moves all 4 extremities without difficulty. Skin: No suspicious rashes or lesions. Capillary refill less than 2 sec. Neurologic: Cranial nerves II-XII intact. Alert and oriented x 3. Motor: No deficits noted. Sensory: Intact bilaterally all 4 extremities. Hematologic/Lymphatic: No ecchymosis, no lymphadenopathy. Psychiatric: See below Psych Appearance: well kempt Speech and Movement: delayed speech and slowed movement Mood: anxious mood and irritable mood Affect: irritable affect and blunted Attitude: cooperative and avoids eye contact Thought Process: circumstantial Thought Content: suicidality (States I do not want to live) Insight: fair Judgment: fair Course Vital Signs Vital signs: Vital Signs Temperature 36.1 C L 08/08/24 19:22 Pulse 98 H 08/08/24 19:22 Respiratory Rate 16 08/08/24 19:22 Blood Pressure 149/90 H 08/08/24 19:22 Pulse Oximetry 98 08/08/24 19:22 Temperature 36.1 C L 08/08/24 19:22 Temperature Source Temporal Artery Scan 08/08/24 19:22 Pulse 98 H 08/08/24 19:22 Respiratory Rate 16 08/08/24 19:22 Respiratory Effort Normal, Non-Labored 08/08/24 19:27 Blood Pressure 149/90 H 08/08/24 19:22 Blood Pressure Position Sitting 08/08/24 19:22 Pulse Oximetry 98 08/08/24 19:22 Oxygen Delivery Method Room Air 08/08/24 19:22 Oxygen Flow Rate 0 08/08/24 19:22 Medical Decision Making 43-year-old female with a past medical history of schizoaffective disorder, hypertension, type 2 diabetes mellitus which she reports she was just diagnosed with today, presents with depression, anxiety and states recent stressors she denies any suicidal ideations however she states I do not want to live anymore she denies having a plan. She reports feeling this way for approximately 1 week. Denies any drugs alcohol or smoking. She reports she has been taking her prescribed medications as directed. She does have a history of an intentional drug overdose. She reports that she is requested a increase in her med dose but that has not happened yet. consult ordered. Patient medically. Past medical clearance form. 2023: Spoke with Michelle with [facility] human services with mental health she reports that patient wants to go home, she refuses safety plan, [facility] services will follow-up with her this week. At this time I do feel like this is appropriate as patient has no plan and has good support system with her mother. We will call her family and inform her of the plan of care. Patient discharged in the care of her mother. This text was generated using [employer] system, please disregard any oddities of phrase or misspellings. Medical Records Medical records reviewed: Yes I reviewed the patient's medical records. Lab Data Lab results reviewed: Yes I reviewed the patient's lab results. Labs: Laboratory Tests Range/Units 08/08/24 19:40 Urine Color (Yellow) Yellow Urine Clarity (Clear) Clear Urine pH (5-8) 6.0 Ur Specific Jennings (1.005-1.025) 1.015 Urine Protein (Neg-Trace) mg/dL Negative Urine Ketones (Negative) mg/dL 15 H Urine Blood (Negative) Negative Urine Nitrite (Negative) Negative Urine Bilirubin (Negative) Negative Urine Urobilinogen (Up to 0.2) mg/dL 0.2 Ur Leukocyte Esterase (Negative) Negative Urine Glucose (Negative) mg/dL 500 H Urine Opiates Screen (Negative) Negative Urine Methadone Screen (Negative) Negative Ur Barbiturates Screen (Negative) Negative Ur Tricyclics Screen (Negative) Negative Ur Amphetamines Screen (Negative) Negative U Benzodiazepines Scrn (Negative) Negative Urine Cocaine Screen (Negative) Negative Ur THC Screen (Negative) Negative Quality:SDOH Health Related Social Needs: No Data to Display PFSH All Active Problems (Updated 08/08/24 @ 20:30 by Zandra Varghese NP) Depression (Chronic) Anxiety (Chronic) Nerve pain (Acute) Joint stiffness (Acute) Bipolar disorder (Acute) Right hip pain (Acute) Fullness in ear (Acute) sensation of needing ear canals harness cleaner (but usually clear) defect (Acute) Low back pain (Acute) Shoulder pain (Acute) Macrocytic anemia (Acute) Hypoalbuminemia due to protein-calorie malnutrition (Acute) 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 Diabetes mellitus type II, controlled (Acute) POTS (postural orthostatic tachycardia syndrome) (Acute) Plantar warts (Acute) Fatigue (Acute) Pelvic pain (Acute) Orthostatic hypotension (Acute) Chronic diarrhea (Acute) Nonalcoholic steatohepatitis (Acute) Hypothyroid (Chronic) Hirsutism (Acute) Dysfunctional uterine bleeding (Acute) Oligomenorrhea (Acute) Schizophrenia (Chronic) Medical History Uterine mass Non compliance w medication regimen Yeast dermatitis RLS (restless legs syndrome) H/O suicide attempt Schizoaffective disorder Deviated nasal septum Trigeminal neuralgia of left side of face (01/03/18) Type 2 diabetes mellitus History of hypothyroidism Drug overdose, intentional Surgical History S/p breast implant removal Sep 2019 S/P breast implant, left H/O pilonidal cyst S/P foot surgery Ligation of fallopian tube Family History Mother Diabetes Father Heart disease Social History Smoking/Tobacco Use Status: Current every day Tobacco Type: e-cigarettes Quit status: considering quitting Smoking risk assessment performed?: Yes Alcohol Intake: never Drug use: Current Sobriety Substance use type: does not use Adopted: No Caregiver/Support person: No Foster care: No Household members: none Housing: apartment Number of Children: 2 number of grandchildren: 0 Education Level: college Details: Some classes - no degree Do you need help understanding health information?: Never current occupation: Disabled Pets and animals: No (1) Sexually active: No Do you think of yourself as: straight/heterosexual Current gender identity: female What is your relationship status?: How often do you talk on the phone with friends or family?: once per week How often do you get together with friends or relatives?: never Do you belong to any clubs or organized social groups?: no Panel score (0-1 are the most socially isolated patients): 0 What type of physical activity do you participate in: walking Duration: 15-30 minutes/day Frequency: daily Lauren/Zoroastrian: Mormonism Special lauren needs: No Seatbelt use: always Helmet use: Yes Drive intox or ride w/intox maintenance truck driver: No Do you feel safe at home: Yes Do you feel safe in your relationship?: Yes Female Reproductive History Menstrual Age of Menarche: 16 Duration of menses: other control method: permanent sterilization History History 2 Para 2 Hx # Term Pregnancies Multiple births Hx # Pregnancies Ectopic pregnancies AB induced Hx Number of Living Children AB spontaneous Past Pregnancies Del. Date GA/Weeks # Preg Succ Route Wgt Sex Labor Lgth Anesth esia Location Prov Complic 08/30/01 40 No Yes vaginal Female 03/25/02 40 No Yes vaginal Male Delivery Date: 08/30/01 [facility]: 03/25/02 Last Updated by: [facility]
[2024-08-08 20:15] LABS: Bilirubin Negative (Negative); Blood Negative (Negative); Clarity Clear (Clear); Glucose 500 mg/dL (Negative); Ketones 15 mg/dL (Negative); Leukocyte Esterase Negative (Negative); Nitrite Negative (Negative); Specific Gravity 1.015 (1.005-1.025); Urobilinogen 0.2 mg/dL (Up to 0.2)
--- NOTE | 2024-08-08 20:30 | PDOC.MHCN ---
Date of service: 08/08/24 Time of Service: 20:20 PHQ-9 Over the last 2 weeks, how often have you been bothered by any of the following problems? 1. Little interest or pleasure in doing things: nearly every day 2. Feeling down, depressed, or hopeless: several days 3. Trouble falling or staying asleep, or sleeping too much: nearly every day 4. Feeling tired or having little energy: nearly every day 5. Poor appetite or overeating: nearly every day 6. Feeling bad about yourself - or that you are a failure or have let yourself and your family down: nearly every day 7. Trouble concentrating on things, such as reading the newspaper or watching television: nearly every day 8. Moving or speaking so slowly that other people could have noticed? - Or the opposite - being so fidgety or restless that you have been moving around a lot more than usual: not at all 9. Thoughts that you would be better off or of hurting yourself in some way: not at all Total score: 19 If you checked off any problems, how difficult have these problems made it for you to do your work, take care of things at home, or get along with other people?: somewhat difficult PHQ-9 Results: Positive Source: Developed by Drs. Sid Carter, Elizabeth Solorio, Joel Arias and colleagues, with an educational babatunde from [employer]. Suicide Severity Rate CSSRS Have you wished you were or wished you could go to sleep and not wake up?: No Have you actually had any thoughts of killing yourself?: No CSSRS3 Have you ever done anything, started to do anything or prepared to do anything to end your life?: Yes CSSRS4 Was this within the past three months?: No Screening Score Total Score: 2 Screening: Positive Mental Health Emergency Note Release [facility] release signed:: Yes Reason for Visit Shaneka presented due to her increased anxiety, worry, and paranoia. 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: Yes Non Suicidal Self Injury Current: No History: No Safety Risk/Harm to Self or Others Current Ideation to Harm Self or Others: No Risk: Does risk to harm exist?: No Risk: N/A Duty to warn indicated: No Asssessment/Mental Status Appearance: Disheveled Attitude: Passive Behavior: Unremarkable Speech: Normal Affect: Cogruent with mood Mood: Stressed and Anxious Thought process: Unremarkable Hallucinations: No evidence Delusions: No evidence Attention: Wandering Perception: Not impaired Orientation: Fully orientated Memory: Intact Insight: Fair Judgement: Poor Neurovegetative Symptoms Sleep: Increase Appetitie: Increase Interests: No change Energy: No change Libido: Not applicable Substance Use: Do you use nicotine?: No Have you used substances in the last 7 days?: No Additional Issues: Assaultive/Threatening Behavior: No Medical Concerns: No Client engaged in active self harm w/weapon: No Threatening to run away: No Child reported abuse/neglect: No Voluntarily presenting for services: Yes Domestic violence is a concern: No Extreme Psychosis or extreme behavior is present: No Impression 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 Shaneka reports she has been having a lot of anxiety and worry causing paranoia that has been escalating. Client reports she is in need of a higher dosage of medications but has been taking all of her medications as prescribed. Shaneka reports having a diagnosis of schizophrenia and being in contact with her rn field case manager as recent as today. Shaneka described her mood as on edge, reports increase in both her sleep and appetite. Shaneka disclosed no SI, no HI, and no nSSI. Shaneka reports inpatient treatment could be helpful but she had a bad experience at and does not want to go back. Shaneka disclosed she wants to be discharged and follow-up with her credit card specialist on 08/09. Shaneka denied safety plan. 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 Plan: Shaneka will be discharged home and follow up with her team on 08/09. Person reported agreement to plan: Yes Reports/communication Outcome discussed with: ED/Personnel
[2024-08-08 20:32] LABS: *AMPHETAMINES SCREEN URINE Negative (Negative); *BARBITURATES SCREEN URINE Negative (Negative); *BENZODIAZEPINES SCREEN URINE Negative (Negative); Cannabinoids THC Negative (Negative); Cocaine Screen,Urine Negative (Negative); METHADONE URINE SCREEN Negative (Negative); OPIATES URINE SCREEN Negative (Negative); Tricyclic Antidepressants Negative (Negative)
== END 2024-08-08 20:37 | disposition home or self-care (01) ==
LOC: ER 20:31
PROVIDERS: Emergency Provider Registered Nurse Emergency; PCP Family Medicine
DX: F41.9 Anxiety disorder, unspecified (principal); F32.A Depression, unspecified; I10 Essential (primary) hypertension; F17.290 Nicotine dependence, other tobacco product, uncomplicated; Z79.4 Long term (current) use of insulin; Z79.85 Long-term (current) use of injectable non-insulin antidiabetic drugs
CPT/HCPCS: 00123; 80307; 81025; 82962; 96127; 99284; 81003

== ENCOUNTER 2024-10-16 23:03 | Inpatient (IN) | payer MEDICAID, SELFPAY ==
--- NOTE | 2024-10-16 23:00 | RT.EKG_ITS ---
APPROVED REPORT Exam: Resting ECG Reason for Exam: sob Patient Location: E HR:72 bpm ECG Measurements Heart Rate 72 AXIS WA 172 P 37 QRSd 84 QRS 53 QT 392 T 38 QTc 430 Conclusion Sinus rhythm...normal P axis, V-rate 60- 99 Nonspecific T abnormalities, anterior leads...T <-0.10mV, V2-V4 I have reviewed and interpreted ECG and agree with software generated interpretation.
[2024-10-16 23:02] VITALS: BP 158/95; PULSE 75; RESP 14; TEMP 36.4; O2SAT 97
[2024-10-16 23:11] VITALS: RESP 14
[2024-10-16 23:31] LABS: BE (Venous) 0 mmol/L (-2-3); HCO3 (Venous) 25 mmol/L (23-28); Lactate 1.6 mmol/L (<or=2.0); O2 Sat (Venous) 97 %; TCO2 (Venous) 22 mmol/L (24-29); pCO2 (Venous) 41 mmHg (41-51); pH (Venous) 7.39 (7.31-7.41); pO2 (Venous) 74 mmHg
[2024-10-16 23:32] LABS: Abs Immature Grans 0.09 10^3/uL (0.0-0.06); Absolute Basophil Count 0.05 10^3/uL (0.0-0.2); Absolute Eosinophil Count 0.11 10^3/uL (0.0-0.7); Absolute Lymphocyte Count 2.99 10^3/uL (1.2-3.4); Absolute Monocyte Count 0.65 10^3/uL (0.1-0.8); Absolute Neutrophil Count 4.08 10^3/uL (1.2-6.7); Basophils % 0.6 %; Eosinophils % 1.4 %; HCT 42.5 % (36.0-46.0); HGB 14.7 g/dL (11.2-15.7); Immature Grans % 1.1 %; Lymphocytes % 37.5 %; MCHC 34.6 % (32.0-36.0); MCV 96 fL (80-95); MPV 9.4 fL (8.0-11.0); Monocytes % 8.2 %; Neutrophils % 51.2 %; Platelet Count 268 10^3/uL (130-400); RBC 4.45 10^6/uL (3.93-5.22); RDW 12.2 % (11.7-14.6); RDW-SD 42.5 fL; WBC 7.97 10^3/uL (4.4-10.8)
[2024-10-16 23:46] LABS: PTT Activated 23.7 sec (20.6-30.2); Prothrombin Time 9.8 sec (9.1-11.1)
[2024-10-16 23:47] LABS: Salicylate < 2.8 mg/dL (<2.8)
[2024-10-16 23:48] VITALS: PULSE 76; PULSE 77; RESP 12; O2SAT 97
[2024-10-16 23:49] LABS: Acetaminophen < 2 ug/mL (10-30)
[2024-10-16 23:50] VITALS: PULSE 77; RESP 12; O2SAT 97
[2024-10-16 23:54] VITALS: BP 120/78; PULSE 78; RESP 9; O2SAT 96
[2024-10-16 23:57] LABS: ALT 22 U/L (14-59); AST 10 U/L (15-37); Albumin 3.3 g/dL (3.4-5.0); Alkaline Phosphatase 166 U/L (46-116); Anion Gap 6.9 mmol/L (3-11); BUN 9 mg/dL (7-18); Bilirubin, Total 0.25 mg/dL (0.2-1.0); CO2 27.1 mmol/L (21.0-32.0); CREATININE 0.7 mg/dL (0.55-1.02); Calcium 9.3 mg/dL (8.5-10.1); Chloride 104 mmol/L (98-107); Glucose 203 mg/dL (74-106); Potassium 3.8 mmol/L (3.5-5.1); Sodium 138 mmol/L (136-145); TSH (W/Ref FT4) 5.62 uIU/mL (0.36-3.74); Total Protein 6.9 g/dL (6.4-8.2)
[2024-10-17] VITALS (81 sets, daily range): BP systolic 84–121; BP diastolic 56–86; PULSE 53–100; RESP 9–17; TEMP 36.2–36.7; O2SAT 94–99
[2024-10-17 00:04] LABS: ETHANOL BLOOD < 3.0 mg/dL (<10)
[2024-10-17 00:21] LABS: FREE T4 1.11 ng/dL (0.76-1.46)
[2024-10-17 00:34] LABS: Bilirubin Negative (Negative); Blood Negative (Negative); Clarity Clear (Clear); Glucose 500 mg/dL (Negative); Ketones 15 mg/dL (Negative); Leukocyte Esterase Negative (Negative); Nitrite Negative (Negative); Specific Gravity 1.015 (1.005-1.025); Urobilinogen 0.2 mg/dL (Up to 0.2)
--- NOTE | 2024-10-17 00:49 | ED.GENADUL_ITS ---
Discharge Plan Disposition Patient Disposition: Admit to [facility] Condition: Improving Discharge Details Chief Complaint: OD/Poison Clinical Impression: Accidental metformin overdose, Adverse effect of beta-karina, Accidental overdose of valproate sodium Primary Care Provider: Antoni Ohara ED Provider: Ankur Huffman Home Meds and New Rx's Prescriptions: No Action divalproex 500 mg tablet,delayed release (DR/EC) 1,000 mg PO BID Qty: 360 3RF topiramate [Topamax] 50 mg tablet 50 mg PO BID Qty: 180 3RF Jardiance 10 mg tablet 10 mg PO DAILY Qty: 30 3RF metformin 750 mg tablet extended release 24 hr 750 mg PO DAILY Qty: 30 3RF (DME) blood-glucose meter [FreeStyle Lite Meter] Kit See Rx Instructions .Route Qty: 1 0RF Rx Instructions: Check blood sugars daily. E11.9.Keep A1c below 7 (DME) FreeStyle Lite Strips Strip See Rx Instructions .Route Qty: 100 3RF Rx Instructions: Check blood sugars daily. DX: E11.9. Keep A1c below 7 (DME) lancets [Lancets,Ultra Thin] Misc See Rx Instructions .Route Qty: 100 3RF Rx Instructions: Check blood sugars daily. DX: E11.9.Keep A1c below 7. aripiprazole 20 mg tablet 20 mg PO DAILY Qty: 90 1RF fludrocortisone 0.1 mg tablet 0.2 mg PO DAILY Qty: 90 3RF Rx Instructions: Reported by Terrance Adkinseat 02/23/2024 metoprolol tartrate 50 mg tablet 50 mg PO BID Qty: 90 3RF levothyroxine 75 mcg tablet See Rx Instructions .ROUTE .COMPLEX Qty: 90 3RF Dose Instruction: TAKE 1 TABLET BY MOUTH DAILY Rx Instructions: TAKE 1 TABLET BY MOUTH DAILY semaglutide 0.25 mg or 0.5 mg(2 mg/1.5 mL) pen injector 0.5 mg subcut QWEEK Qty: 1.5 3RF HPI General Date/Time Provider Initiated Documentation: 10/16/24 23:09 . HPI Narrative: This is a 44-year-old female with a past medical history of insulin controlled diabetes, POTS, schizophrenia, hypothyroidism, chronically low systolic blood pressure, who presents today for evaluation of overdose via EMS. Patient states that she felt somewhat sad today, and because of this took extra of her medications hoping that she would not be sad. She has blister packs for her medications, and over the course of about 8 hours took 5 total PACs, 3 bedtime PACs and 2 daytime PACs. She denies any homicidal or suicidal ideations. She states that she does not want to harm herself. Total medications and doses that she took were Depakote 4500 mg, Topamax 150 mg, metoprolol 250 mg, fludrocortisone 0.4 mg, levothyroxine 150 mcg, Jardiance 20 mg, metformin 1500 mg, and aripiprazole 40 mg. A friend contacted EMS because they noticed that the patient was acting more sleepy than normal. Patient has no complaints at this time aside for feeling tired. Related Data Home Medications ?Medication ?Instructions ?Recorded ?Confirmed fludrocortisone 0.1 mg tablet 0.2 mg (2 x 0.1 mg) PO DAILY #90 05/10/24 08/09/24 tabs metoprolol tartrate 50 mg tablet 50 mg PO BID #90 tabs 06/01/24 08/09/24 levothyroxine 75 mcg tablet See Rx Instructions .Route 06/05/24 08/09/24 .COMPLEX #90 tabs divalproex 500 mg tablet,delayed 1,000 mg (2 x 500 mg) PO BID #360 07/16/24 08/09/24 release tabs topiramate 50 mg tablet (Topamax) 50 mg PO BID #180 tabs 07/16/24 08/09/24 empagliflozin 10 mg tablet 10 mg PO DAILY #30 tabs 08/08/24 08/09/24 (Jardiance) metformin 750 mg tablet,extended 750 mg PO DAILY #30 tabs 08/08/24 08/09/24 release 24 hr aripiprazole 20 mg tablet 20 mg PO DAILY #90 tabs 08/09/24 08/09/24 blood sugar diagnostic (FreeStyle #100 ea 08/09/24 08/09/24 Lite Strips) blood-glucose meter (FreeStyle #1 ea 08/09/24 08/09/24 Lite Meter kit) lancets (Lancets,Ultra Thin) #100 ea 08/09/24 08/09/24 semaglutide 0.25 mg or 0.5 mg (2 0.5 mg (0.374 mL) subcut QWEEK 09/13/24 mg/1.5 mL) subcutaneous pen #1.5 mL injector Previous Rx's ?Medication ?Instructions ?Recorded fludrocortisone 0.1 mg tablet 0.2 mg (2 x 0.1 mg) PO DAILY #90 05/10/24 tabs metoprolol tartrate 50 mg tablet 50 mg PO BID #90 tabs 06/01/24 levothyroxine 75 mcg tablet See Rx Instructions .Route 06/05/24 .COMPLEX #90 tabs divalproex 500 mg tablet,delayed 1,000 mg (2 x 500 mg) PO BID #360 07/16/24 release tabs topiramate 50 mg tablet (Topamax) 50 mg PO BID #180 tabs 07/16/24 empagliflozin 10 mg tablet 10 mg PO DAILY #30 tabs 08/08/24 (Jardiance) metformin 750 mg tablet,extended 750 mg PO DAILY #30 tabs 08/08/24 release 24 hr aripiprazole 20 mg tablet 20 mg PO DAILY #90 tabs 08/09/24 blood sugar diagnostic (FreeStyle #100 ea 08/09/24 Lite Strips) blood-glucose meter (FreeStyle #1 ea 08/09/24 Lite Meter kit) lancets (Lancets,Ultra Thin) #100 ea 08/09/24 semaglutide 0.25 mg or 0.5 mg (2 0.5 mg (0.374 mL) subcut QWEEK 09/13/24 mg/1.5 mL) subcutaneous pen #1.5 mL injector Allergies Allergy/AdvReac Type Severity Reaction Status Date / Time codeine Allergy Mild unknown Verified 08/09/24 15:18 General Stated Complaint: OD/Poison CECILIA: 2 Exam Narrative Exam Narrative: 1.Const: Well-nourished, Well-developed, appearing stated age 2.Eyes: PERRL, no conjunctival injection, and symmetrical lids. 3.ENT: Atraumatic external nose and ears. Moist MM. Neck: Symmetric, trachea midline, No thyromegaly. No neck stiffness or managements. Airway is intact, normal gag reflex. 4.CVS: +S1/S2, Peripheral pulses 2+ and equal in all extremities. Brisk capillary refill in all extremities. 5.RESP: Unlabored respiratory effort. Clear to auscultation bilaterally. No wheezes rales or rhonchi 6.GI: Soft, Nontender/Nondistended, No hepatosplenomegaly. No guarding or rebound. 7.MSK: Normocephalic/Atraumatic, Extremities w/o deformity or ttp No cyanosis or clubbing, Normal movement of all extremities. 8.Skin: Warm, Dry. No rashes or lesions. 9.Neuro: research asst II-XII grossly intact. Sensation grossly intact, no focal neurologic deficits. No hyperreflexia. DTRs are slightly diminished. No leadpipe rigidity. GCS is 15 but she does appear mildly sleepy 10.Psych: (AAO) x3. Slightly diminished and affect. Course Vital Signs Vital signs: Vital Signs Temperature 36.4 C 10/16/24 23:02 Pulse 75 10/16/24 23:02 Respiratory Rate 14 10/16/24 23:02 Blood Pressure 158/95 H 10/16/24 23:02 Pulse Oximetry 97 10/16/24 23:02 Temperature 36.4 C 10/16/24 23:02 Temperature Source Temporal Artery Scan 10/16/24 23:02 Pulse 80 10/17/24 00:15 Pulse 82 10/17/24 00:00 Respiratory Rate 14 10/17/24 00:15 Respiratory Effort Normal, Non-Labored 10/17/24 00:15 Respiratory Depth Normal 10/17/24 00:15 Respiratory Pattern Normal 10/17/24 00:15 Blood Pressure 106/70 10/17/24 00:15 Blood Pressure Mean 82 10/17/24 00:15 Blood Pressure Position Supine 10/17/24 00:15 Pulse Oximetry 97 10/17/24 00:15 Oxygen Delivery Method Room Air 10/17/24 00:15 Oxygen Flow Rate 0 10/17/24 00:15 Pain Level 0 10/16/24 23:02 Lab/Test Results Lab/Test Results: Laboratory Tests Range/Units 10/16/24 10/17/24 22:21 00:21 WBC (4.4-10.8) 10^3/uL 7.97 RBC (3.93-5.22) 10^6/uL 4.45 Hgb (11.2-15.7) g/dL 14.7 Hct (36.0-46.0) % 42.5 MCV (80-95) fL 96 H MCH (27.0-33.0) pg 33.0 MCHC (32.0-36.0) % 34.6 RDW (11.7-14.6) % 12.2 Plt Count (130-400) 10^3/uL 268 MPV (8.0-11.0) fL 9.4 Immature Gran % % 1.1 Neutrophils % % 51.2 Lymphocytes % % 37.5 Monocytes % % 8.2 Eosinophils % % 1.4 Basophils % % 0.6 Nucleated RBC % (0.0-0.3) % 0.0 Absolute Neutrophils (1.2-6.7) 10^3/uL 4.08 Absolute Lymphocytes (1.2-3.4) 10^3/uL 2.99 Absolute Monocytes (0.1-0.8) 10^3/uL 0.65 Absolute Eosinophils (0.0-0.7) 10^3/uL 0.11 Absolute Basophils (0.0-0.2) 10^3/uL 0.05 PT (9.1-11.1) sec 9.8 INR (0.9-1.1) 1.0 APTT (20.6-30.2) sec 23.7 VBG pH (7.31-7.41) 7.39 VBG pCO2 (41-51) mmHg 41 VBG pO2 mmHg 74 VBG HCO3 (23-28) mmol/L 25 VBG Total CO2 (24-29) mmol/L 22 L VBG O2 Saturation % 97 VBG Base Excess (-2-3) mmol/L 0 VBG Lactate (<or=2.0) mmol/L 1.6 Sodium (136-145) mmol/L 138 Potassium (3.5-5.1) mmol/L 3.8 Chloride (98-107) mmol/L 104 Carbon Dioxide (21.0-32.0) mmol/L 27.1 Anion Gap (3-11) mmol/L 6.9 BUN (7-18) mg/dL 9 Creatinine (0.55-1.02) mg/dL 0.7 Est GFR (CKD-EPI 2020) (mL/min/1.73m2) 109.30 Glucose (74-106) mg/dL 203 H Calcium (8.5-10.1) mg/dL 9.3 Total Bilirubin (0.2-1.0) mg/dL 0.25 AST (15-37) U/L 10 L ALT (14-59) U/L 22 Alkaline Phosphatase (46-116) U/L 166 H Total Protein (6.4-8.2) g/dL 6.9 Albumin (3.4-5.0) g/dL 3.3 L TSH (0.36-3.74) uIU/mL 5.62 H Free T4 (0.76-1.46) ng/dL 1.11 Urine Color (Yellow) Yellow Urine Clarity (Clear) Clear Urine pH (5-8) 7.0 Ur Specific [place] (1.005-1.025) 1.015 Urine Protein (Neg-Trace) mg/dL Negative Urine Ketones (Negative) mg/dL 15 H Urine Blood (Negative) Negative Urine Nitrite (Negative) Negative Urine Bilirubin (Negative) Negative Urine Urobilinogen (Up to 0.2) mg/dL 0.2 Ur Leukocyte Esterase (Negative) Negative Urine Glucose (Negative) mg/dL 500 H Salicylates (<2.8) mg/dL < 2.8 Acetaminophen (10-30) ug/mL < 2 Ethyl Alcohol (<10) mg/dL < 3.0 POC- Test(urine) Negative Medical Decision Making This is a 44-year-old female with a past medical history of insulin controlled diabetes, POTS, schizophrenia, hypothyroidism, chronically low systolic blood pressure, who presents today for evaluation of overdose via EMS. Patient states that she felt somewhat sad today, and because of this took extra of her medications hoping that she would not be sad. She has blister packs for her medications, and over the course of about 8 hours took 5 total PACs, 3 bedtime PACs and 2 daytime PACs. She denies any homicidal or suicidal ideations. She states that she does not want to harm herself. Total medications and doses that she took were Depakote 4500 mg, Topamax 150 mg, metoprolol 250 mg, fludrocortisone 0.4 mg, levothyroxine 150 mcg, Jardiance 20 mg, metformin 1500 mg, and aripiprazole 40 mg. A friend contacted EMS because they noticed that the patient was acting more sleepy than normal. Patient has no complaints at this time aside for feeling tired. Physical exam demonstrates a fatigued appearing female, but not lethargic. GCS is 15, no hyperreflexia, leadpipe rigidity, neck stiffness, or signs of hemodynamic instability. We will evaluate for EKG abnormalities, electrolyte abnormalities, we will administer supportive care, monitor closely and reassess. Patient denies any homicidal or suicidal ideations whatsoever at this time, do not see an indication for one-to-one. I believe that the patient made this decision at this time based on current history and experience with the patient in an attempt not for self-harm but rather to just feel better. I suspect that her baseline functionality has played a role into this scenario. That being said will monitor her very closely in the meantime. We will monitor for metformin induced lactic acidosis, hemodynamic instability for metoprolol overdose, or sugar discrepancy or abnormality from diabetes medications. 1:40 AM EKG is benign. Laboratory workup has returned, initial Depakote level 131 and is within normal range, ammonia level slightly elevated at 39, salicylates and acetaminophen are negative, TSH high at 5.6, but free T4 is normal. Lactate is normal. No evidence of metformin induced lactic acidosis. Patient remains hemodynamically stable with no significant hypotension or bradycardia. VBG demonstrates a stable pH, electrolytes and CBC are unremarkable. On reassessment patient appears notably more alert awake and continues to be notably oriented. She is sitting up and shows no signs of lethargy. We did contact poison control and they recommend continued supportive care and monit oring for negative effects of the metoprolol, every 4 hour Depakote and ammonia levels to evaluate for worsening of the ammonia or worsening of the Depakote. As well as every 2 hour Accu-Cheks and lactate levels. Discussed the case with the hospitalist Dr. Selby, he agrees with the assessment and plan. I have extensively reviewed the treatment plan with the patient. I have addressed all patient concerns at this time. I have also discussed the plan with the admitting physician and they agree with the current assessment and plan and have agreed to assume responsibility for the patient. All parties demonstrate verbal understanding and agreement with our assessment and plan at this time. The documentation in this chart was dictated using [employer] dictation software. Please excuse any dictation errors. Quality:SDOH Health Related Social Needs: No Data to Display Critical Care Time Critical Care Time Critical Care Time: Yes Total Critical Care Time: 60 Attestation: Upon my evaluation, this patient had a high probability of imminent or life- threatening deterioration, which required my direct attention, intervention, and personal management. I have personally provided 60 minutes of critical care time exclusive of time spent on separately billable procedures. Time includes review of laboratory data, radiology results, discussion with consultants, and monitoring for potential decompensation. Interventions were performed as documented. 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 Diabetes mellitus type II, controlled (Acute) POTS (postural orthostatic tachycardia syndrome) (Acute) Plantar warts (Acute) Fatigue (Acute) Pelvic pain (Acute) Orthostatic hypotension (Acute) Chronic diarrhea (Acute) Nonalcoholic steatohepatitis (Acute) Hypothyroid (Chronic) Hirsutism (Acute) Dysfunctional uterine bleeding (Acute) Oligomenorrhea (Acute) Schizophrenia (Chronic) Medical History Uterine mass Non compliance w medication regimen Yeast dermatitis RLS (restless legs syndrome) H/O suicide attempt Schizoaffective disorder Deviated nasal septum Trigeminal neuralgia of left side of face (01/03/18) Type 2 diabetes mellitus History of hypothyroidism Drug overdose, intentional Surgical History S/p breast implant removal Sep 2019 S/P breast implant, left H/O pilonidal cyst S/P foot surgery Ligation of fallopian tube Family History Mother Diabetes Father Heart disease Social History Smoking/Tobacco Use Status: Current every day Tobacco Type: e-cigarettes Quit status: considering quitting Smoking risk assessment performed?: Yes Alcohol Intake: never Drug use: Current Sobriety Substance use type: does not use Adopted: No Caregiver/Support person: No Foster care: No Household members: none Housing: apartment Number of Children: 2 number of grandchildren: 0 Education Level: college Details: Some classes - no degree Do you need help understanding health information?: Never current occupation: Disabled Pets and animals: No (1) Sexually active: No Do you think of yourself as: straight/heterosexual Current gender identity: female What is your relationship status?: How often do you talk on the phone with friends or family?: once per week How often do you get together with friends or relatives?: never Do you belong to any clubs or organized social groups?: no Panel score (0-1 are the most socially isolated patients): 0 What type of physical activity do you participate in: walking Duration: 15-30 minutes/day Frequency: daily Lauren/Restorationism: Lutheran Special lauren needs: No Seatbelt use: always Helmet use: Yes Drive intox or ride w/intox yard driver: No Do you feel safe at home: Yes Do you feel safe in your relationship?: Yes Female Reproductive History Menstrual Age of Menarche: 16 Duration of menses: other control method: permanent sterilization History History 2 Para 2 Hx # Term Pregnancies Multiple births Hx # Pregnancies Ectopic pregnancies AB induced Hx Number of Living Children AB spontaneous Past Pregnancies Del. Date GA/Weeks # Preg Succ Route Wgt Sex Labor Lgth Anesth esia Location [facility] 08/30/01 40 No Yes vaginal Female 03/25/02 40 No Yes vaginal Male Delivery Date: 08/30/01 Last Updated [facility]: [facility] Delivery Date: 03/25/02 Last Updated by: Aimee EncisoV[facility]
[2024-10-17 01:01] LABS: *AMPHETAMINES SCREEN URINE Negative (Negative); *BARBITURATES SCREEN URINE Negative (Negative); *BENZODIAZEPINES SCREEN URINE Negative (Negative); Cannabinoids THC Negative (Negative); Cocaine Screen,Urine Negative (Negative); METHADONE URINE SCREEN Negative (Negative); OPIATES URINE SCREEN Negative (Negative)
[2024-10-17 01:05] LABS: Tricyclic Antidepressants Negative (Negative)
--- NOTE | 2024-10-17 01:16 | W.PM.HP.N ---
Date of service: 10/17/24 Time of Service: 01:18 Assessment and Plan Assessment and plan (1) Drug overdose: Status: Acute Assessment and plan: Drug OD, unclear to what extent there may have been any true intent to harm. In any case patient seems to be clinically improving and hemodynamics remain stable. Will hydrate, monitor telemetry and trend labs per recommendations of Poison Control. History of Present Illness History of Present Illness Chief Complaint: drug OD Narrative: 44 female with h/o schizophrenia, depression, DM -- has been feeling sad lately and this evening, starting some 6-8 hours ago, took extra doses of various meds. She states clearly that she was not specifically trying to harm herself but it appears she may not quite understand the relation between an overdose and potential for harm. Specifically, she took 5 doses of the following: topamax, metoprolol, depakote, metformin and aripiprazole. A friend noted she seemed lethargic and she was brought to ER. In ER patient has become more alert and responsive over the course of her stay, hemodynamics have been stable, labs unremarkable and EKG normal. Poison control consulted and advised general supportive measures, with monitoring of ammonia and glucose. I was asked to evaluate for admission. 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 Diabetes mellitus type II, controlled (Acute) POTS (postural orthostatic tachycardia syndrome) (Acute) Plantar warts (Acute) Fatigue (Acute) Pelvic pain (Acute) Orthostatic hypotension (Acute) Chronic diarrhea (Acute) Nonalcoholic steatohepatitis (Acute) Hypothyroid (Chronic) Hirsutism (Acute) Dysfunctional uterine bleeding (Acute) Oligomenorrhea (Acute) Schizophrenia (Chronic) Medical History Uterine mass Non compliance w medication regimen Yeast dermatitis RLS (restless legs syndrome) H/O suicide attempt Schizoaffective disorder Deviated nasal septum Trigeminal neuralgia of left side of face (01/03/18) Type 2 diabetes mellitus History of hypothyroidism Drug overdose, intentional Surgical History S/p breast implant removal Sep 2019 S/P breast implant, left H/O pilonidal cyst S/P foot surgery Ligation of fallopian tube Family History Mother Diabetes Father Heart disease Social History Smoking/Tobacco Use Status: Current every day Tobacco Type: e-cigarettes Quit status: considering quitting Smoking risk assessment performed?: Yes Alcohol Intake: never Drug use: Current Sobriety Substance use type: does not use Adopted: No Caregiver/Support person: No Foster care: No Household members: none Housing: apartment Number of Children: 2 number of grandchildren: 0 Education Level: college Details: Some classes - no degree Do you need help understanding health information?: Never current occupation: Disabled Pets and animals: No (1) Sexually active: No Do you think of yourself as: straight/heterosexual Current gender identity: female What is your relationship status?: How often do you talk on the phone with friends or family?: once per week How often do you get together with friends or relatives?: never Do you belong to any clubs or organized social groups?: no Panel score (0-1 are the most socially isolated patients): 0 What type of physical activity do you participate in: walking Duration: 15-30 minutes/day Frequency: daily Lauren/Adventist: Evangelical Special lauren needs: No Seatbelt use: always Helmet use: Yes Drive intox or ride w/intox electric lift truck driver: No Do you feel safe at home: Yes Do you feel safe in your relationship?: Yes Female Reproductive History Menstrual Age of Menarche: 16 Duration of menses: other control method: permanent sterilization History History 2 Para 2 Hx # Term Pregnancies Multiple births Hx # Pregnancies Ectopic pregnancies AB induced Hx Number of Living Children AB spontaneous Past Pregnancies Del. Date GA/Weeks # Preg Succ Route Wgt Sex Labor Lgth Anesthesia Location Prov Complic 08/30/01 40 No Yes vaginal Female 03/25/02 40 No Yes vaginal Male Delivery Date: 08/30/01 [facility]: [facility]02 Last Updated by: [facility] Meds Allergies and Home Medications Allergies Allergy/AdvReac Type Severity Reaction Status Date / Time codeine Allergy Mild unknown Verified 08/09/24 15:18 Home Medications ?Medication ?Instructions ?Recorded ?Confirmed ?Type fludrocortisone 0.1 mg tablet 0.2 mg (2 x 0.1 mg) PO DAILY #90 05/10/24 08/09/24 Rx tabs metoprolol tartrate 50 mg tablet 50 mg PO BID #90 tabs 06/01/24 08/09/24 Rx levothyroxine 75 mcg tablet See Rx Instructions .Route 06/05/24 08/09/24 Rx .COMPLEX #90 tabs divalproex 500 mg tablet,delayed 1,000 mg (2 x 500 mg) PO BID #360 07/16/24 08/09/24 Rx release tabs topiramate 50 mg tablet (Topamax) 50 mg PO BID #180 tabs 07/16/24 08/09/24 Rx empagliflozin 10 mg tablet 10 mg PO DAILY #30 tabs 08/08/24 08/09/24 Rx (Jardiance) metformin 750 mg tablet,extended 750 mg PO DAILY #30 tabs 08/08/24 08/09/24 Rx release 24 hr aripiprazole 20 mg tablet 20 mg PO DAILY #90 tabs 08/09/24 08/09/24 Rx blood sugar diagnostic (FreeStyle #100 ea 08/09/24 08/09/24 Rx Lite Strips) blood-glucose meter (FreeStyle #1 ea 08/09/24 08/09/24 Rx Lite Meter kit) lancets (Lancets,Ultra Thin) #100 ea 08/09/24 08/09/24 Rx semaglutide 0.25 mg or 0.5 mg (2 0.5 mg (0.374 mL) subcut QWEEK 09/13/24 Rx mg/1.5 mL) subcutaneous pen #1.5 mL injector Exam Narrative Exam Narrative: 106/70, 80, 36.4, 14, 97% RA. HEENT atraumatic, neck supple; lungs clear; heart RRR; abdomen +BS, soft and NT; extremities w/o edema; neuro Ox3, conversant, pupils 3 mm/reactive, moves all 4s Results Labs 10/16/24 22:21 10/16/24 22:21 Labs: Laboratory Results - last 24 hr 10/16/24 10/17/24 22:21 00:21 WBC 7.97 RBC 4.45 Hgb 14.7 Hct 42.5 MCV 96 H MCH 33.0 MCHC 34.6 RDW 12.2 Plt Count 268 MPV 9.4 Immature Gran % 1.1 Neutrophils % 51.2 Lymphocytes % 37.5 Monocytes % 8.2 Eosinophils % 1.4 Basophils % 0.6 Nucleated RBC % 0.0 Absolute Neutrophils 4.08 Absolute Lymphocytes 2.99 Absolute Monocytes 0.65 Absolute Eosinophils 0.11 Absolute Basophils 0.05 PT 9.8 INR 1.0 APTT 23.7 VBG pH 7.39 VBG pCO2 41 VBG pO2 74 VBG HCO3 25 VBG Total CO2 22 L VBG O2 Saturation 97 VBG Base Excess 0 VBG Lactate 1.6 Sodium 138 Potassium 3.8 Chloride 104 Carbon Dioxide 27.1 Anion Gap 6.9 BUN 9 Creatinine 0.7 Est GFR (CKD-EPI 2020) 109.30 Glucose 203 H Calcium 9.3 Total Bilirubin 0.25 AST 10 L ALT 22 Alkaline Phosphatase 166 H Total Protein 6.9 Albumin 3.3 L TSH 5.62 H Free T4 1.11 Urine Color Yellow Urine Clarity Clear Urine pH 7.0 Ur Specific [place] 1.015 Urine Protein Negative Urine Ketones 15 H Urine Blood Negative Urine Nitrite Negative Urine Bilirubin Negative Urine Urobilinogen 0.2 Ur Leukocyte Esterase Negative Urine Glucose 500 H Salicylates < 2.8 Urine Opiates Screen Negative Urine Methadone Screen Negative Acetaminophen < 2 Ur Barbiturates Screen Negative Ur Tricyclics Screen Negative Ur Amphetamines Screen Negative U Benzodiazepines Scrn Negative Urine Cocaine Screen Negative Ur THC Screen Negative Ethyl Alcohol < 3.0 Last Vital Signs Temp 36.4 C 10/16/24 23:02 Pulse 80 10/17/24 00:15 Resp 14 10/17/24 00:15 BP 106/70 10/17/24 00:15 Pulse Ox 97 10/17/24 00:15 Time Spent Time spent with Patient: 40-54 minutes Time was spent: preparing to see the patient(eg.review tests), obtaining and/or reviewing separately otained hiistory, ordering medications,tests, procedures, referring, communicating with other health regular senior care provider and indepentently interpreting results
[2024-10-17 01:31] LABS: VALPROIC ACID 131.8 ug/mL
[2024-10-17 01:36] LABS: Ammonia 39 umol/L (11-32)
[2024-10-17] MEDS: Lactated Ringers 1,000 ML 125 ML IV ×2 (01:58→11:45)
[2024-10-17 02:51] LABS: Lactate 2.1 mmol/L (<or=2.0)
[2024-10-17 05:14] LABS: Lactate 1.9 mmol/L (<or=2.0)
[2024-10-17 05:35] LABS: Ammonia 26 umol/L (11-32)
[2024-10-17 06:00] LABS: VALPROIC ACID 152.9 ug/mL
[2024-10-17 07:18] LABS: Lactate 1.3 mmol/L (<or=2.0)
[2024-10-17 07:31] LABS: Anion Gap 7.6 mmol/L (3-11); BUN 8 mg/dL (7-18); CO2 27.4 mmol/L (21.0-32.0); CREATININE 0.6 mg/dL (0.55-1.02); Calcium 8.9 mg/dL (8.5-10.1); Chloride 107 mmol/L (98-107); Estimated GFR 113.44 (mL/min/1.73m2); Glucose 151 mg/dL (74-106); Potassium 3.3 mmol/L (3.5-5.1); Sodium 142 mmol/L (136-145)
[2024-10-17 09:25] LABS: Ammonia 48 umol/L (11-32)
[2024-10-17 09:29] LABS: VALPROIC ACID 141.3 ug/mL
[2024-10-17 10:12] LABS: Lactate 2.1 mmol/L (<or=2.0)
[2024-10-17] MEDS: Potassium Chloride 20 MEQ TABCR 40 MEQ PO (10:52)
[2024-10-17 12:56] LABS: Lactate 1.6 mmol/L (<or=2.0)
[2024-10-17 13:11] LABS: Ammonia 70 umol/L (11-32)
--- NOTE | 2024-10-17 13:16 | PDOC.CMSAFE ---
Date of service: 10/17/24 Time of Service: 13:17 Care Management Safety Plan Status Status: Interim Reason for Wait Reason for Wait: Medical Clearance Safety Plan Safety Plan: CM will respond to ICU to assess patient after patient has been medically cleared and assessed by screener. If screener deems patient meets criteria for psychiatric stabilization CM will facilitate interdepartmental huddle with [facility] screener for safety planning considerations and meet with patient to review [facility] policy and safety plan, establish individual wishes for treatment and maintain patient rights. In the interim; please note safety plan below to guide patient care while awaiting further assessment.? SAFETY PLAN: 1. Will remain on suicide precautions and in paper clothes/hospital gown.? 2. Will remain in room under direct supervision of one-on-one staff at all times provided by LUIS MANUEL, [employer] agriscience instructor. 3. May have paper cups, plates, finger foods as well as a cardboard spoon with which to eat meals. 4. Follow [facility] Management of the Admitted Behavioral Health Patient policy. 5. Comfort bath system or shower permitted, with RN support. 6. No personal belongings . 7. No visitors. 8. Phone contact limited to [facility] phone; supportive incoming/outgoing calls only. 9. Due to VOLUNTARY status, if patient wishes to leave [facility], staff will contact [facility] Crisis Screener ([phone]) and On-Call Judicial Law Clerk ([phone]) as soon as possible. In the event of elopement, notify [facility] Police ([phone]). ? If deemed appropriate for inpatient psychiatric care, safety plan will be established with patient, and care team, to adhere to patient goals, identify restrictions based on behavioral status, address nutrition, and determine allowed personal belongings, tools for hygiene and personal care. As well plan will determine level of activity including ambulation, level of supervision, visitors, and determine privileges based on level of acuity, behaviors and level of engagement by patient.
--- NOTE | 2024-10-17 13:36 | PDOC.CMIN ---
Date of service: 10/17/24 Time of Service: 13:36 Care Management Initial Assmt Initial Assessment Reason for Hospitalization: drug overdose Functional Status/Living Situation Patient Presentation: Shaneka was lying in bed when CM met with her. She reported that she is doing ok; per RN she has been pleasant, cooperative and sleepy throughout the day. Cici stated that she is not feeling suicidal at this time, and that she was feeling sad, lonely and depressed when she took an overdose of her medications. She stated that she was connected to [facility] as a [facility] client, but withdrew from services a couple of months ago. She did not go into detail about why she withdrew from services at [facility], but she did state that she does not want to reconnect with them for outpatient services. CM discussed the process of having her assessed by [facility] after she is medically cleared, which she is agreeable to. CM also discussed community resources, such as [facility] at her PCP office, to connect her with therapy in an accessible way (she stated that she has a PCP appointment at [facility] on Tuesday, 10/19), as well as the [facility], to help with engagement and decrease loneliness. She felt that seeing the [facility] was a good idea, and is happy to have CM assist with that connection. Per RN, Cici will be monitored overnight, and will likely be medically cleared in the morning, at which point CM will contact [facility] for assessment. CM will continue to follow. Town of Residence: [facility] Resides with: Alone Natural Supports: Neighbors, Syed and Richi Employment Status: Unemployed Instrumental Activities of Daily Living (ADLs): Independent Medications Medication Management: No Issues/Barriers identified Advance Directives Advance Directives: Do you have an Advance Directive: N 01/28/23 12:56 AD On File at [facility]: N 01/28/23 12:56 Date Asked 08/08/24 08/08/24 19:08 AD Date Reviewed COLST On File at [facility] No 12/11/23 21:00 COLST Date Scanned Code Status Resuscitation Status Full Code Insurance Coverage/Financial Issues Insurance: [facility] Care Team Visit Care Team Role Provider Type Antoni Ohara, Primary Care Provider OSTEOPATHIC DOCTOR Ankur Huffman DO Emergency Provider [facility] STAFF PHYSICIAN Marcio Lovelace Attending Provider [facility] STAFF PHYSICIAN Samuel Selby MD Admit Provider [facility] STAFF PHYSICIAN Discharge Potential Discharge Needs: PCP F/U Appt and Other ([facility] assessment) Anticipated Barriers to Discharge: Medical Status Patient/Family Education Needs: Review discharge instructions, discuss [facility] Me [employer] Transportation: RCT RCT Transportation: Private vechicle Plan: Shaneka is not yet medically cleared; CM will contact [facility] for a mental health evaluation once she is ready. She will return home with a safety plan vs transfer for inpatient psychiatric treatment, if indicated. She will follow up with her PCP and discharge plan of care. Transportation will depend on disposition; RCT if she returns home. Interim safety plan in place. CM will continue to follow. Social Determinants of Health Screening Will the Patient Participate in the Screening?: Unable to obtain [facility] All Active Problems (Updated 10/17/24 @ 01:45 by Ankur Huffman DO) Accidental overdose of valproate sodium (Acute) Adverse effect of beta-karina (Acute) Accidental metformin overdose (Acute) Drug overdose (Acute) Joint stiffness (Acute) Bipolar disorder (Acute) Right hip pain (Acute) Fullness in ear (Acute) sensation of needing ear canals lens cleaner (but usually clear) defect (Acute) Low back pain (Acute) Shoulder pain (Acute) Macrocytic anemia (Acute) Hypoalbuminemia due to protein-calorie malnutrition (Acute) 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 Diabetes mellitus type II, controlled (Acute) POTS (postural orthostatic tachycardia syndrome) (Acute) Plantar warts (Acute) Fatigue (Acute) Pelvic pain (Acute) Orthostatic hypotension (Acute) Chronic diarrhea (Acute) Nonalcoholic steatohepatitis (Acute) Hypothyroid (Chronic) Hirsutism (Acute) Dysfunctional uterine bleeding (Acute) Oligomenorrhea (Acute) Schizophrenia (Chronic) Medical History Uterine mass Non compliance w medication regimen Yeast dermatitis RLS (restless legs syndrome) H/O suicide attempt Schizoaffective disorder Deviated nasal septum Trigeminal neuralgia of left side of face (01/03/18) Type 2 diabetes mellitus History of hypothyroidism Drug overdose, intentional Surgical History S/p breast implant removal Sep 2019 S/P breast implant, left H/O pilonidal cyst S/P foot surgery Ligation of fallopian tube Family History Mother Diabetes Father Heart disease Social History Smoking/Tobacco Use Status: Current every day Tobacco Type: e-cigarettes Quit status: considering quitting Smoking risk assessment performed?: Yes Alcohol Intake: never Drug use: Current Sobriety Substance use type: does not use Adopted: No Caregiver/Support person: No Foster care: No Household members: none Housing: apartment Number of Children: 2 number of grandchildren: 0 Education Level: college Details: Some classes - no degree Do you need help understanding health information?: Never current occupation: Disabled Pets and animals: No (1) Sexually active: No Do you think of yourself as: straight/heterosexual Current gender identity: female What is your relationship status?: How often do you talk on the phone with friends or family?: once per week How often do you get together with friends or relatives?: never Do you belong to any clubs or organized social groups?: no Panel score (0-1 are the most socially isolated patients): 0 What type of physical activity do you participate in: walking Duration: 15-30 minutes/day Frequency: daily Lauren/Adventist: Nondenominational Special lauren needs: No Seatbelt use: always Helmet use: Yes Drive intox or ride w/intox customer service driver: No Do you feel safe at home: Yes Do you feel safe in your relationship?: Yes Female Reproductive History Menstrual Age of Menarche: 16 Duration of menses: other control method: permanent sterilization History History 2 Para 2 Hx # Term Pregnancies Multiple births Hx # Pregnancies Ectopic pregnancies AB induced Hx Number of Living Children AB spontaneous Past Pregnancies Del. Date GA/Weeks # Preg Succ Route Wgt Sex Labor Lgth Anesthesia Location Prov Complic 08/30/01 40 No Yes vaginal Female 03/25/02 40 No Yes vaginal Male Delivery Date: 08/30/01 [facility]: [facility] Last [facility]
--- NOTE | 2024-10-17 16:26 | PGE_ITS ---
Date of Service Date of service: 10/17/24 Time of Service: 16:26 Assessment and Plan Assessment and plan (1) Drug overdose: Status: Acute Assessment and plan: Drug OD, was intentional, though denies current SI. Pt observer pending MH evaluation once cleared medically. Monitor telemetry and trend labs per recommendations of Poison Control. Valproate trending down, can stop these labs. Ammonia still trending up, follow until trending down Blood sugar and BPs stable. (2) Diabetes mellitus type II, controlled: Status: Acute Assessment and plan: holding metformin, no low sugars. ISS (3) DVT prophylaxis: Status: Resolved Assessment and plan: not high risk, SCDs Subjective Subjective Patient reports: tolerating a regular diet and voiding w/o difficulty; denies diarrhea, nausea, vomiting, shortness of breath or fever Interval history since last seen: Feels okay. No current SI/HI. She was just sad and lonely last night and took extra medications. No chest pain or palpitations Exam Narrative Exam Narrative: A&O x 4, NAD; lungs clear; heart RRR; abdomen +BS, soft and NT; extremities w/o edema; neuro Ox3, conversant, pupils 3 mm/reactive, non focal. no tremor. Objective Last Vital Signs Temp 36.5 C 10/17/24 14:51 Pulse 91 H 10/17/24 16:01 Resp 14 10/17/24 16:01 BP 101/65 10/17/24 16:01 Pulse Ox 96 10/17/24 16:01 Laboratory Results - last 24 hr 10/16/24 10/17/24 10/17/24 22:21 00:21 00:45 WBC 7.97 RBC 4.45 Hgb 14.7 Hct 42.5 MCV 96 H MCH 33.0 MCHC 34.6 RDW 12.2 Plt Count 268 MPV 9.4 Immature Gran % 1.1 Neutrophils % 51.2 Lymphocytes % 37.5 Monocytes % 8.2 Eosinophils % 1.4 Basophils % 0.6 Nucleated RBC % 0.0 Absolute Neutrophils 4.08 Absolute Lymphocytes 2.99 Absolute Monocytes 0.65 Absolute Eosinophils 0.11 Absolute Basophils 0.05 PT 9.8 INR 1.0 APTT 23.7 VBG pH 7.39 VBG pCO2 41 VBG pO2 74 VBG HCO3 25 VBG Total CO2 22 L VBG O2 Saturation 97 VBG Base Excess 0 VBG Lactate 1.6 Cancelled Sodium 138 Potassium 3.8 Chloride 104 Carbon Dioxide 27.1 Anion Gap 6.9 BUN 9 Creatinine 0.7 Est GFR (CKD-EPI 2020) 109.30 Glucose 203 H Calcium 9.3 Total Bilirubin 0.25 AST 10 L ALT 22 Alkaline Phosphatase 166 H Ammonia Total Protein 6.9 Albumin 3.3 L TSH 5.62 H Free T4 1.11 Urine Color Yellow Urine Clarity Clear Urine pH 7.0 Ur Specific [place] 1.015 Urine Protein Negative Urine Ketones 15 H Urine Blood Negative Urine Nitrite Negative Urine Bilirubin Negative Urine Urobilinogen 0.2 Ur Leukocyte Esterase Negative Urine Glucose 500 H Salicylates < 2.8 Urine Opiates Screen Negative Urine Methadone Screen Negative Acetaminophen < 2 Ur Barbiturates Screen Negative Valproic Acid Ur Tricyclics Screen Negative Ur Amphetamines Screen Negative U Benzodiazepines Scrn Negative Urine Cocaine Screen Negative Ur THC Screen Negative Ethyl Alcohol < 3.0 10/17/24 10/17/24 10/17/24 00:59 01:00 01:08 WBC RBC Hgb Hct MCV MCH MCHC RDW Plt Count MPV Immature Gran % Neutrophils % Lymphocytes % Monocytes % Eosinophils % Basophils % Nucleated RBC % Absolute Neutrophils Absolute Lymphocytes Absolute Monocytes Absolute Eosinophils Absolute Basophils PT INR APTT VBG pH VBG pCO2 VBG pO2 VBG HCO3 VBG Total CO2 VBG O2 Saturation VBG Base Excess VBG Lactate Sodium Potassium Chloride Carbon Dioxide Anion Gap BUN Creatinine Est GFR (CKD-EPI 2020) Glucose Calcium Total Bilirubin AST ALT Alkaline Phosphatase Ammonia 39 H Cancelled Total Protein Albumin TSH Free T4 Urine Color Urine Clarity Urine pH Ur Specific [place] Urine Protein Urine Ketones Urine Blood Urine Nitrite Urine Bilirubin Urine Urobilinogen Ur Leukocyte Esterase Urine Glucose Salicylates Urine Opiates Screen Urine Methadone Screen Acetaminophen Ur Barbiturates Screen Valproic Acid Cancelled 131.8 Ur Tricyclics Screen Ur Amphetamines Screen U Benzodiazepines Scrn Urine Cocaine Screen Ur THC Screen Ethyl Alcohol 10/17/24 10/17/24 10/17/24 02:45 05:09 07:10 WBC RBC Hgb Hct MCV MCH MCHC RDW Plt Count MPV Immature Gran % Neutrophils % Lymphocytes % Monocytes % Eosinophils % Basophils % Nucleated RBC % Absolute Neutrophils Absolute Lymphocytes Absolute Monocytes Absolute Eosinophils Absolute Basophils PT INR APTT VBG pH VBG pCO2 VBG pO2 VBG HCO3 VBG Total CO2 VBG O2 Saturation VBG Base Excess VBG Lactate 2.1 H* 1.9 1.3 Sodium 142 Potassium 3.3 L Chloride 107 Carbon Dioxide 27.4 Anion Gap 7.6 BUN 8 Creatinine 0.6 Est GFR (CKD-EPI 2020) 113.44 Glucose 151 H Calcium 8.9 Total Bilirubin AST ALT Alkaline Phosphatase Ammonia 26 Total Protein Albumin TSH Free T4 Urine Color Urine Clarity Urine pH Ur Specific [place] Urine Protein Urine Ketones Urine Blood Urine Nitrite Urine Bilirubin Urine Urobilinogen Ur Leukocyte Esterase Urine Glucose Salicylates Urine Opiates Screen Urine Methadone Screen Acetaminophen Ur Barbiturates Screen Valproic Acid 152.9 H* Ur Tricyclics Screen Ur Amphetamines Screen U Benzodiazepines Scrn Urine Cocaine Screen Ur THC Screen Ethyl Alcohol 10/17/24 10/17/24 10/17/24 08:45 09:00 10:00 WBC RBC Hgb Hct MCV MCH MCHC RDW Plt Count MPV Immature Gran % Neutrophils % Lymphocytes % Monocytes % Eosinophils % Basophils % Nucleated RBC % Absolute Neutrophils Absolute Lymphocytes Absolute Monocytes Absolute Eosinophils Absolute Basophils PT INR APTT VBG pH VBG pCO2 VBG pO2 VBG HCO3 VBG Total CO2 VBG O2 Saturation VBG Base Excess VBG Lactate Cancelled 2.1 H* Sodium Potassium Chloride Carbon Dioxide Anion Gap BUN Creatinine Est GFR (CKD-EPI 2020) Glucose Calcium Total Bilirubin AST ALT Alkaline Phosphatase Ammonia 48 H Total Protein Albumin TSH Free T4 Urine Color Urine Clarity Urine pH Ur Specific [place] Urine Protein Urine Ketones Urine Blood Urine Nitrite Urine Bilirubin Urine Urobilinogen Ur Leukocyte Esterase Urine Glucose Salicylates Urine Opiates Screen Urine Methadone Screen Acetaminophen Ur Barbiturates Screen Valproic Acid 141.3 Ur Tricyclics Screen Ur Amphetamines Screen U Benzodiazepines Scrn Urine Cocaine Screen Ur THC Screen Ethyl Alcohol 10/17/24 10/17/24 10/17/24 10:45 12:45 12:52 WBC RBC Hgb Hct MCV MCH MCHC RDW Plt Count MPV Immature Gran % Neutrophils % Lymphocytes % Monocytes % Eosinophils % Basophils % Nucleated RBC % Absolute Neutrophils Absolute Lymphocytes Absolute Monocytes Absolute Eosinophils Absolute Basophils PT INR APTT VBG pH VBG pCO2 VBG pO2 VBG HCO3 VBG Total CO2 VBG O2 Saturation VBG Base Excess VBG Lactate Cancelled Cancelled 1.6 Sodium Potassium Chloride Carbon Dioxide Anion Gap BUN Creatinine Est GFR (CKD-EPI 2020) Glucose Calcium Total Bilirubin AST ALT Alkaline Phosphatase Ammonia 70 H Total Protein Albumin TSH Free T4 Urine Color Urine Clarity Urine pH Ur Specific [place] Urine Protein Urine Ketones Urine Blood Urine Nitrite Urine Bilirubin Urine Urobilinogen Ur Leukocyte Esterase Urine Glucose Salicylates Urine Opiates Screen Urine Methadone Screen Acetaminophen Ur Barbiturates Screen Valproic Acid Ur Tricyclics Screen Ur Amphetamines Screen U Benzodiazepines Scrn Urine Cocaine Screen Ur THC Screen Ethyl Alcohol 10/17/24 10/17/24 10/17/24 13:00 14:45 16:45 WBC RBC Hgb Hct MCV MCH MCHC RDW Plt Count MPV Immature Gran % Neutrophils % Lymphocytes % Monocytes % Eosinophils % Basophils % Nucleated RBC % Absolute Neutrophils Absolute Lymphocytes Absolute Monocytes Absolute Eosinophils Absolute Basophils PT INR APTT VBG pH VBG pCO2 VBG pO2 VBG HCO3 VBG Total CO2 VBG O2 Saturation VBG Base Excess VBG Lactate Cancelled Cancelled Sodium Potassium Chloride Carbon Dioxide Anion Gap BUN Creatinine Est GFR (CKD-EPI 2020) Glucose Calcium Total Bilirubin AST ALT Alkaline Phosphatase Ammonia Total Protein Albumin TSH Free T4 Urine Color Urine Clarity Urine pH Ur Specific [place] Urine Protein Urine Ketones Urine Blood Urine Nitrite Urine Bilirubin Urine Urobilinogen Ur Leukocyte Esterase Urine Glucose Salicylates Urine Opiates Screen Urine Methadone Screen Acetaminophen Ur Barbiturates Screen Valproic Acid Cancelled Ur Tricyclics Screen Ur Amphetamines Screen U Benzodiazepines Scrn Urine Cocaine Screen Ur THC Screen Ethyl Alcohol 10/17/24 10/17/24 10/17/24 17:00 18:45 20:45 WBC RBC Hgb Hct MCV MCH MCHC RDW Plt Count MPV Immature Gran % Neutrophils % Lymphocytes % Monocytes % Eosinophils % Basophils % Nucleated RBC % Absolute Neutrophils Absolute Lymphocytes Absolute Monocytes Absolute Eosinophils Absolute Basophils PT INR APTT VBG pH VBG pCO2 VBG pO2 VBG HCO3 VBG Total CO2 VBG O2 Saturation VBG Base Excess VBG Lactate Cancelled Cancelled Sodium Potassium Chloride Carbon Dioxide Anion Gap BUN Creatinine Est GFR (CKD-EPI 2020) Glucose Calcium Total Bilirubin AST ALT Alkaline Phosphatase Ammonia Total Protein Albumin TSH Free T4 Urine Color Urine Clarity Urine pH Ur Specific [place] Urine Protein Urine Ketones Urine Blood Urine Nitrite Urine Bilirubin Urine Urobilinogen Ur Leukocyte Esterase Urine Glucose Salicylates Urine Opiates Screen Urine Methadone Screen Acetaminophen Ur Barbiturates Screen Valproic Acid Cancelled Ur Tricyclics Screen Ur Amphetamines Screen U Benzodiazepines Scrn Urine Cocaine Screen Ur THC Screen Ethyl Alcohol 10/17/24 10/17/24 21:00 22:45 WBC RBC Hgb Hct MCV MCH MCHC RDW Plt Count MPV Immature Gran % Neutrophils % Lymphocytes % Monocytes % Eosinophils % Basophils % Nucleated RBC % Absolute Neutrophils Absolute Lymphocytes Absolute Monocytes Absolute Eosinophils Absolute Basophils PT INR APTT VBG pH VBG pCO2 VBG pO2 VBG HCO3 VBG Total CO2 VBG O2 Saturation VBG Base Excess VBG Lactate Cancelled Sodium Potassium Chloride Carbon Dioxide Anion Gap BUN Creatinine Est GFR (CKD-EPI 2020) Glucose Calcium Total Bilirubin AST ALT Alkaline Phosphatase Ammonia Total Protein Albumin TSH Free T4 Urine Color Urine Clarity Urine pH Ur Specific [place] Urine Protein Urine Ketones Urine Blood Urine Nitrite Urine Bilirubin Urine Urobilinogen Ur Leukocyte Esterase Urine Glucose Salicylates Urine Opiates Screen Urine Methadone Screen Acetaminophen Ur Barbiturates Screen Valproic Acid Cancelled Ur Tricyclics Screen Ur Amphetamines Screen U Benzodiazepines Scrn Urine Cocaine Screen Ur THC Screen Ethyl Alcohol Time Spent with Patient Time Spent with Patient: 35-49 minutes Time was spent: preparing to see the patient(eg.review tests), obtaining and/or reviewing separately otained hiistory, ordering medications,tests, procedures, referring, communicating with other health hospice home care coordinator, indepentently interpreting results, counseling the patient and care coordination
[2024-10-17 17:08] LABS: Lactate 1.3 mmol/L (<or=2.0)
[2024-10-17 17:19] LABS: Ammonia 52 umol/L (11-32)
[2024-10-17 18:18] LABS: VALPROIC ACID 153.9 ug/mL
[2024-10-17 21:35] LABS: Ammonia 45 umol/L (11-32)
[2024-10-17 21:50] LABS: VALPROIC ACID 148.6 ug/mL
[2024-10-18] VITALS (20 sets, daily range): BP systolic 81–109; BP diastolic 54–71; PULSE 76–109; RESP 10–24; TEMP 36.4–36.7; O2SAT 94–96
[2024-10-18 01:59] LABS: VALPROIC ACID 124.3 ug/mL
[2024-10-18 06:22] LABS: VALPROIC ACID 101.1 ug/mL
[2024-10-18 10:37] LABS: VALPROIC ACID 93.8 ug/mL
--- NOTE | 2024-10-18 12:30 | DSE_ITS ---
Date of service: 10/18/24 Time of Service: 12:30 DS: Diagnosis Discharge Diagnosis (1) Drug overdose: Status: Acute (2) Diabetes mellitus type II, controlled: Status: Acute (3) DVT prophylaxis: Status: Resolved Discharge Plan Disposition Patient Disposition: Home Condition: Improving Discharge Details Reason For Visit: drug OD Admit Date/Time: 10/17/24 01:39 Admit Provider: Samuel Selby Attending Provider: Sid Lee Primary Care Provider: Antoni Ohara Hospital Course Hospital Course: 44-year-old female who was admitted after a intentional drug overdose but not a suicidal attempt. Patient was feeling sad and thought that the way to improve her mood would be to take her medications over and over. Friends noticed that she was quite somnolent coming to the hospital for further evaluation and treatment. The patient did take valproic acid among other medications and was admitted for monitoring of her Depakote levels. Patient improved to have a value less than 100 and that was the cutoff for her going home. Patient was seen in conjunction with mental health and they agreed with the discharge home. Patient denied any suicidal homicidal ideations at the time of discharge and did not have any auditory or visual hallucinations. Patient will need follow-up with mental health as well as her PCP Home Meds and New Rx's Prescriptions: Continued Jardiance 10 mg tablet 10 mg PO DAILY Qty: 30 3RF metformin 750 mg tablet extended release 24 hr 750 mg PO DAILY Qty: 30 3RF (DME) blood-glucose meter [FreeStyle Lite Meter] Kit See Rx Instructions .Route Qty: 1 0RF Rx Instructions: Check blood sugars daily. E11.9.Keep A1c below 7 (DME) FreeStyle Lite Strips Strip See Rx Instructions .Route Qty: 100 3RF Rx Instructions: Check blood sugars daily. DX: E11.9. Keep A1c below 7 (DME) lancets [Lancets,Ultra Thin] Misc See Rx Instructions .Route Qty: 100 3RF Rx Instructions: Check blood sugars daily. DX: E11.9.Keep A1c below 7. aripiprazole 20 mg tablet 20 mg PO DAILY Qty: 90 1RF fludrocortisone 0.1 mg tablet 0.2 mg PO DAILY Qty: 90 3RF Rx Instructions: Reported by Terrance Haysi 02/23/2024 levothyroxine 75 mcg tablet See Rx Instructions .ROUTE .COMPLEX Qty: 90 3RF Dose Instruction: TAKE 1 TABLET BY MOUTH DAILY Rx Instructions: TAKE 1 TABLET BY MOUTH DAILY semaglutide 0.25 mg or 0.5 mg(2 mg/1.5 mL) pen injector 0.5 mg subcut QWEEK Qty: 1.5 3RF divalproex 500 mg tablet,delayed release (DR/EC) 1,500 mg PO .daily PM topiramate [Topamax] 50 mg tablet 50 mg PO DAILY Held metoprolol tartrate 50 mg tablet 50 mg PO BID Qty: 90 3RF Hold Instructions: Resume on 10/25/24. Discharge Instructions Referrals: Antoni Ohara DO [Primary Care Provider] - (Follow up in 3-5 days. Would consider adding an nigel 2/2 DM but will defer PCP. PT will also need follow up with Mental Health as scheduled) Activity:: Activity as Tolerated Equipment/Supplies:: No Equipment Needed Diet:: As Tolerated Discharge Orders Discharge Orders: Discharge Order (Routine); Ordered 10/18/24 Ordered By: Sid Lee DS: Summary Time Spent with Patient providing and/or coordinating discharge services: Less than 30 minutes Status at Discharge Functional status at discharge: independent ambulation Overall status at discharge: patient is back to baseline Mental Status: mental status grossly normal Speech and Movement: speech and movement normal Mood: congruent mood Affect: normal affect Quality:SDOH Health Related Social Needs: Health related social needs problems related to housin g/economic circumstances (Z59.89), problems with daily activities (Z73.9), feeling lonely/isolated (Z60.8) Exam Narrative Exam Narrative: A&O x 4, NAD; lungs clear; heart RRR; abdomen +BS, soft and NT; extremities w/o edema; neuro Ox3, conversant, pupils 3 mm/reactive, non focal. no tremor. Psych Mental Status: mental status grossly normal Speech and Movement: speech and movement normal Mood: congruent mood Affect: normal affect DS: Data Vitals/I&O Vitals and I&O: Vital Signs Temperature 36.7 C 10/18/24 08:35 Temperature Source Temporal Artery Scan 10/18/24 08:35 Pulse 91 H 10/18/24 09:09 Pulse 107 H 10/18/24 09:09 Respiratory Rate 14 10/18/24 09:09 Respiratory Effort Normal, Non-Labored 10/17/24 06:38 Respiratory Depth Normal 10/17/24 06:38 Respiratory Pattern Normal 10/17/24 06:38 Blood Pressure 105/69 10/18/24 09:09 Blood Pressure Mean 81 10/18/24 09:09 Blood Pressure Position Supine 10/17/24 06:38 Pulse Oximetry 96 10/18/24 08:00 Oxygen Delivery Method Room Air 10/17/24 06:38 Oxygen Flow Rate 0 10/17/24 06:38 Pain Level 0 10/17/24 06:38 Intake & Output 10/17/24 10/18/24 10/18/24 23:59 11:59 23:59 Intake Total 1093 / 2453 240 / 240 Output Total 1000 / 1500 1300 / 1300 Balance 93 / 953 -1060 / -1060 Intake: IV 875 / 1875 0 / 0 Oral 218 / 578 240 / 240 Output: Urine 1000 / 1500 1300 / 1300 Other: Urine Color Pale Yellow Urine Appearance Clear Clear Urine Odor None None Comment shift foreman total Data Completed and Pending Labs on day of discharge: Labs from last 24 hours 10/18/24 10/18/24 10/18/24 13:30 09:27 05:25 VBG Lactate Ammonia Valproic Acid Pending 93.8 101.1 10/18/24 10/17/24 10/17/24 01:32 21:00 19:12 VBG Lactate Ammonia 45 H Valproic Acid 124.3 Cancelled 148.6 10/17/24 10/17/24 10/17/24 17:00 17:00 13:00 VBG Lactate 1.3 Ammonia 52 H Valproic Acid 153.9 H* Cancelled Cancelled 10/17/24 12:52 VBG Lactate 1.6 Ammonia 70 H Valproic Acid PFSH All Active Problems (Updated 10/17/24 @ 01:45 by Ankur Huffman DO) Accidental overdose of valproate sodium (Acute) Adverse effect of beta-karina (Acute) Accidental metformin overdose (Acute) Drug overdose (Acute) Joint stiffness (Acute) Bipolar disorder (Acute) Right hip pain (Acute) Fullness in ear (Acute) sensation of needing ear canals pillowcase cleaner (but usually clear) defect (Acute) Low back pain (Acute) Shoulder pain (Acute) Macrocytic anemia (Acute) Hypoalbuminemia due to protein-calorie malnutrition (Acute) 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 Diabetes mellitus type II, controlled (Acute) POTS (postural orthostatic tachycardia syndrome) (Acute) Plantar warts (Acute) Fatigue (Acute) Pelvic pain (Acute) Orthostatic hypotension (Acute) Chronic diarrhea (Acute) Nonalcoholic steatohepatitis (Acute) Hypothyroid (Chronic) Hirsutism (Acute) Dysfunctional uterine bleeding (Acute) Oligomenorrhea (Acute) Schizophrenia (Chronic) Medical History Uterine mass Non compliance w medication regimen Yeast dermatitis RLS (restless legs syndrome) H/O suicide attempt Schizoaffective disorder Deviated nasal septum Trigeminal neuralgia of left side of face (01/03/18) Type 2 diabetes mellitus History of hypothyroidism Drug overdose, intentional Surgical History S/p breast implant removal Sep 2019 S/P breast implant, left H/O pilonidal cyst S/P foot surgery Ligation of fallopian tube Family History Mother Diabetes Father Heart disease Social History Smoking/Tobacco Use Status: Current every day Tobacco Type: e-cigarettes Quit status: considering quitting Smoking risk assessment performed?: Yes Alcohol Intake: never Drug use: Current Sobriety Substance use type: does not use Adopted: No Caregiver/Support person: No Foster care: No Household members: none Housing: apartment Number of Children: 2 number of grandchildren: 0 Education Level: college Details: Some classes - no degree Do you need help understanding health information?: Never current occupation: Disabled Pets and animals: No (1) Sexually active: No Do you think of yourself as: straight/heterosexual Current gender identity: female What is your relationship status?: How often do you talk on the phone with friends or family?: once per week How often do you get together with friends or relatives?: never Do you belong to any clubs or organized social groups?: no Panel score (0-1 are the most socially isolated patients): 0 What type of physical activity do you participate in: walking Duration: 15-30 minutes/day Frequency: daily Lauren/Judaism: Rastafarian Special lauren needs: No Seatbelt use: always Helmet use: Yes Drive intox or ride w/intox xm1 tank driver: No Do you feel safe at home: Yes Do you feel safe in your relationship?: Yes Female Reproductive History Menstrual Age of Menarche: 16 Duration of menses: other control method: permanent sterilization History History 2 Para 2 Hx # Term Pregnancies Multiple births Hx # Pregnancies Ectopic pregnancies AB induced Hx Number of Living Children AB spontaneous Past Pregnancies Del. Date GA/Weeks # Preg Succ Route Wgt Sex Labor Lgth Anesth esia Location Prov Complic 08/30/01 40 No Yes vaginal Female 03/25/02 40 No Yes vaginal Male Delivery Date: 08/30/01 [facility]: 03/25/02 Last Updated by: Aimee [facility] Time Spent with Patient Time Spent with Patient: <45 minutes Time was spent: preparing to see the patient(eg.review tests), obtaining and/or reviewing separately otained hiistory, ordering medications,tests, procedures, referring, communicating with other health complex care nurse practitioner, indepentently interpreting results, counseling the patient and care coordination
[2024-10-18 14:09] LABS: VALPROIC ACID 73.8 ug/mL
--- NOTE | 2024-10-18 14:41 | MHPN_ITS ---
Date of service: 10/18/24 Time of Service: 11:15 PHQ-9 Over the last 2 weeks, how often have you been bothered by any of the following problems? 1. Little interest or pleasure in doing things: not at all 2. Feeling down, depressed, or hopeless: several days 3. Trouble falling or staying asleep, or sleeping too much: several days 4. Feeling tired or having little energy: not at all 5. Poor appetite or overeating: not at all 6. Feeling bad about yourself - or that you are a failure or have let yourself and your family down: not at all 7. Trouble concentrating on things, such as reading the newspaper or watching television: not at all 8. Moving or speaking so slowly that other people could have noticed? - Or the opposite - being so fidgety or restless that you have been moving around a lot more than usual: not at all 9. Thoughts that you would be better off or of hurting yourself in some way: not at all Total score: 2 Source: Developed by Drs. Sid Carter, Elizabeth Solorio, Joel Arias and colleagues, with an educational babatunde from [employer]. Mental Health Emergency Note Release [facility] release signed:: Yes Reason for Visit In the last 2 weeks has the pt presented for ES prior to today?: No Client Information Client is: Adult Outpatient Non Suicidal Self Injury Current: No History: yes, 10/21/24 Safety Risk/Harm to Self or Others Current Ideation to Harm Self or Others: No Risk: Does risk to harm exist?: yes. Risk: Low Risk Duty to warn indicated: No Asssessment/Mental Status Appearance: Other Attitude: Cooperative and Friendly Behavior: Unremarkable Speech: Normal Affect: Cogruent with mood Mood: Anxious Thought process: Circumstational Hallucinations: No Delusions: No Attention: Unremarkable Perception: Not impaired Orientation: Fully orientated Memory: Intact Insight: Fair Judgement: Poor Neurovegetative Symptoms Sleep: Decrease Appetitie: No change Interests: No change Energy: No change Libido: Not applicable Substance Use: Other (no drinking) Drug Issues: Other (no drug use) Do you use nicotine?: No Have you used substances in the last 7 days?: No Additional Issues: Assaultive/Threatening Behavior: No Medical Concerns: Yes Client engaged in active self harm w/weapon: No Threatening to run away: No Child reported abuse/neglect: No Voluntarily presenting for services: Yes Domestic violence is a concern: No Extreme Psychosis or extreme behavior is present: No Impression Client lives alone and has become depressed, bored, and not sleeping. She suffers from schizophrenia which can interupt her level headed thinking which she becomes mentally dysregulated. Resources Reosurces reviewed and given:: [facility] and [facility] Plan/Disposition Recommended Disposition: Therapy and Med management. Plan: Client is being discharged and with an active Safety Plan with Check In calls Person reported agreement to plan: Yes Reports/communication Outcome discussed with: ED/Personnel
--- NOTE | 2024-10-18 17:22 | PDOC.CMDIS ---
Date of service: 10/18/24 Time of Service: 17:22 LACE Index Scoring Tool Questions: Length of Stay (in days): 1 Was the patient admitted via the E.D.?: Yes Comorbidities: Diabetes w/o Complication E.D. Visits: 6 Answers: Total Score: 9 Risk of Readmission: Low Risk Care Management Discharge Plan Reason for Hospitalization: overdose Discharge Plan: Shaneka was medically cleared this morning, and met with [facility] for a mental health assessment. Together they created a safety plan for her to follow in the community. CM reached out to the behavioral health clinician at [facility] to provide a warm handoff, as Shaneka is agreeable to setting up an appointment for therapy, and that would be convenient for her, as her PCP is also in that office, and it is close to home. She transported home via [facility] private vehicle. She will follow up with her PCP (appt tomorrow), and her discharge plan of care. She is happy to be going home. Patient/Family Education Needs: Review discharge instructions and limitations, discuss ask me three. Services Needed at Discharge: Transportation ([facility] private vehicle) SDOH Health Related Social Needs: Health related social needs problems related to housing/economic circumstances (Z59.89), problems with daily activities (Z73.9), feeling lonely/isolated (Z60.8) Care Management Referrals: Other (PCP [facility] [place] for therapy)
== END 2024-10-18 13:29 | disposition home or self-care (01) | DRG 918 ==
LOC: ER 10-17 03:08 → ICU 10-17 06:08
PROVIDERS: Family Medicine; Student in an Organized Health Care Education/Training Program; Admitting Provider General Practice; Emergency Provider Student in an Organized Health Care Education/Training Program; PCP Family Medicine; Responsible Provider Hospitalist; Visit Provider Hospitalist
DX: T42.6X1A Poisoning by other antiepileptic and sedative-hypnotic drugs, accidental (unintentional), initial encounter (principal); T44.7X1A Poisoning by beta-adrenoreceptor antagonists, accidental (unintentional), initial encounter; R53.83 Other fatigue; E11.9 Type 2 diabetes mellitus without complications; F20.9 Schizophrenia, unspecified; F31.9 Bipolar disorder, unspecified; D53.9 Nutritional anemia, unspecified; E03.9 Hypothyroidism, unspecified; K75.81 Nonalcoholic steatohepatitis (NASH); G90.A Postural orthostatic tachycardia syndrome [POTS]; Z91.148 Patient's other noncompliance with medication regimen for other reason; G25.81 Restless legs syndrome; N91.5 Oligomenorrhea, unspecified; F17.290 Nicotine dependence, other tobacco product, uncomplicated; Z79.84 Long term (current) use of oral hypoglycemic drugs; Z79.85 Long-term (current) use of injectable non-insulin antidiabetic drugs; Z59.89 Other problems related to housing and economic circumstances; Z73.89 Other problems related to life management difficulty; Z60.8 Other problems related to social environment
CPT/HCPCS: 00123; 36415; 36416; 80048; 80053; 80307; 81025; 82805; 82962; 93005; 96127; 96360; 96361; 99291; 80164; 80320; 80329; 81003; 82140; 83605; 84439; 84443; 85025; 85610; 85730; 93010; 94640; 99222; 99238; J1815

== ENCOUNTER 2024-10-26 08:50 | Outpatient (CLI) | payer MEDICAID, SELFPAY ==
[2024-10-26 12:29] LABS: Ammonia 17 umol/L (11-32)
[2024-10-26 13:09] LABS: C-Reactive Protein < 0.50 mg/dL (<or=0.5); TSH (W/Ref FT4) 2.58 uIU/mL (0.36-3.74)
[2024-10-29 12:19] LABS: Cyclic Citrullinated Peptide <2.5 U/mL (<5.0)
[2024-10-29 14:01] LABS: ANA Interpretation Negative (Negative)
== END 2024-10-26 08:51 | disposition home or self-care (01) ==
LOC: LBO 08:56
PROVIDERS: PCP Family Medicine; Visit Provider Family Medicine
DX: E03.9 Hypothyroidism, unspecified; R79.89 Other specified abnormal findings of blood chemistry
CPT/HCPCS: 36415; 86200; 82140; 84443; 86038; 86140

== ENCOUNTER 2024-12-25 02:36 | Outpatient (CLI) | payer MEDICAID, SELFPAY ==
--- NOTE | 2024-12-25 06:45 | DI.US_ITS ---
Exam(s) US ABDOMEN LIMITED EXAM: US ABDOMEN LIMITED CLINICAL HISTORY: assess liver gallbladder please (acute epigastric discomfort),nonalcoholi TECHNIQUE: Ultrasound abdomen performed using standard protocol. COMPARISON: US US ABDOMEN LIMITED from 12/27/[address] ABDOMEN PELVIS W from 12/31/[address] CHEST/ABD/PEL W from 03/15/2024 FINDINGS: PANCREAS: Normal where visualized. LIVER: Slight increased echogenicity of the liver suggesting fatty infiltration. Hepatopetal flow in the Portal Vein. The liver measures in 20 cm length. No evidence of a hepatic mass. GALLBLADDER: No evidence of cholelithiasis. No evidence of wall thickening. No pericholecystic fluid identified. BILIARY SYSTEM: Common bile duct measures < 7 mm. No intrahepatic biliary ductal dilation. ZELAYA'S SIGN: Negative. RIGHT KIDNEY: Kidney is normal in size. No evidence of renal calculi. No evidence of hydronephrosis. No renal mass or cyst identified. ASCITES: None seen. IMPRESSION: Hepatomegaly and hepatic steatosis. DATA REPOSITORY:
== END 2024-12-25 02:56 ==
LOC: DI 02:36
PROVIDERS: PCP Family Medicine; Visit Provider Nurse Practitioner Adult Health
DX: K75.81 Nonalcoholic steatohepatitis (NASH) (principal); R10.13 Epigastric pain
CPT/HCPCS: 76705

== ENCOUNTER 2025-02-03 19:35 | Inpatient (IN) | payer MEDICAID, SELFPAY ==
[2025-02-03] VITALS (36 sets, daily range): BP systolic 93–163; BP diastolic 67–88; PULSE 66–100; RESP 10–27; TEMP 37.1; O2SAT 95–98
--- NOTE | 2025-02-03 19:30 | RT.EKG_ITS ---
APPROVED REPORT Exam: Resting ECG Reason for Exam: OD Patient Location: E HR:70 bpm ECG Measurements Heart Rate 70 AXIS VA 176 P 38 QRSd 85 QRS 26 QT 402 T 37 QTc 436 Conclusion Sinus rhythm at a rate of 70 with normal intervals without acute ischemic change
--- NOTE | 2025-02-03 19:59 | ED.GENADUL_ITS ---
Discharge Plan Discharge Details Chief Complaint: OD/Poison Clinical Impression: Drug overdose, Depression Primary Care Provider: Antoni Ohara ED Provider: Taryn Hamlin Home Meds and New Rx's Prescriptions: No Action (DME) blood-glucose meter [FreeStyle Lite Meter] Kit See Rx Instructions .Route Qty: 1 0RF Rx Instructions: Check blood sugars daily. E11.9.Keep A1c below 7 (DME) FreeStyle Lite Strips Strip See Rx Instructions .Route Qty: 100 3RF Rx Instructions: Check blood sugars daily. DX: E11.9. Keep A1c below 7 (DME) lancets [Lancets,Ultra Thin] Misc See Rx Instructions .Route Qty: 100 3RF Rx Instructions: Check blood sugars daily. DX: E11.9.Keep A1c below 7. turmeric root extract 500 mg tablet 1,000 mg PO BID PRN (Reason: Joint stiffness/soreness) naproxen 500 mg tablet 500 mg PO BID naproxen 500 mg tablet 500 mg PO BID PRN (Reason: pain) Qty: 180 3RF Ozempic 0.25 mg or 0.5 mg (2 mg/3 mL) pen injector 0.25 mg subcut QWEEK Qty: 3 0RF Rx Instructions: for 4 weeks metformin 750 mg tablet extended release 24 hr 750 mg PO BID Qty: 60 3RF Rx Instructions: Take with food levothyroxine 75 mcg tablet See Rx Instructions .ROUTE .COMPLEX Qty: 90 3RF Dose Instruction: TAKE 1 TABLET BY MOUTH DAILY Rx Instructions: TAKE 1 TABLET BY MOUTH DAILY metoprolol tartrate 50 mg tablet 50 mg PO BID Qty: 90 3RF fludrocortisone 0.1 mg tablet 0.2 mg PO DAILY Qty: 90 3RF Rx Instructions: Reported by Terrance Adkinseat 02/23/2024 Jardiance 10 mg tablet 10 mg PO DAILY Qty: 30 3RF aripiprazole 20 mg tablet 20 mg PO DAILY Qty: 90 3RF divalproex 500 mg tablet,delayed release (DR/EC) 1,000 mg PO BID Qty: 360 3RF topiramate [Topamax] 50 mg tablet 50 mg PO DAILY HPI General Date/Time Provider Initiated Documentation: 02/03/25 19:40 . HPI Narrative: Shaneka is a 44-year-old female who presents via EMS with lethargy. Admits to consuming a 4-day supply of prescribed medications, excluding metformin, in the early afternoon and contacted emergency services. She reports she did this because she all of a sudden felt very depressed. Reports weakness and nausea, denies visual disturbances, headaches, dizziness, chest pain, respiratory distress, or abdominal pain. Prior to this, she was in good health with normal bowel and bladder functions. Says that she took these medications because she was feeling depressed. Denies other ingestions such as alcohol, drugs, or tobacco other than vaping. History of similar behavior due to depressive episodes, requiring hospital admissions for mental health issues. Denies inciting incident, HI, or other self-harm behaviors. Past medical history significant for T2DM, POTS, METZGER, hypothyroidism, macrocytic anemia, hypoalbuminemia due to malnutrition, schizophrenia, bipolar disorder. Related Data Home Medications ?Medication ?Instructions ?Recorded ?Confirmed levothyroxine 75 mcg tablet See Rx Instructions .Route 06/05/24 12/12/24 .COMPLEX #90 tabs blood sugar diagnostic (FreeStyle #100 ea 08/09/24 12/12/24 Lite Strips) blood-glucose meter (FreeStyle #1 ea 08/09/24 12/12/24 Lite Meter kit) lancets (Lancets,Ultra Thin) #100 ea 08/09/24 12/12/24 topiramate 50 mg tablet (Topamax) 50 mg PO DAILY 10/17/24 12/12/24 metoprolol tartrate 50 mg tablet 50 mg PO BID #90 tabs 10/22/24 12/12/24 fludrocortisone 0.1 mg tablet 0.2 mg (2 x 0.1 mg) PO DAILY #90 10/25/24 12/12/24 tabs empagliflozin 10 mg tablet 10 mg PO DAILY #30 tabs 11/20/24 12/12/24 (Jardiance) naproxen 500 mg tablet 500 mg PO BID Joint stiffness 11/27/24 12/12/24 naproxen 500 mg tablet 500 mg PO BID PRN pain #180 tabs 11/27/24 12/12/24 semaglutide 0.25 mg or 0.5 mg (2 0.25 mg (0.368 mL) subcut QWEEK #3 03/25/25 04/09/25 mg/3 mL) subcutaneous pen injector mL (Ozempic) turmeric root extract 500 mg tablet 1,000 mg PO BID PRN Joint 11/27/24 12/12/24 stiffness/soreness metformin 750 mg tablet,extended 750 mg PO BID #60 tabs 12/12/24 12/12/24 release 24 hr aripiprazole 20 mg tablet 20 mg PO DAILY #90 tabs 01/17/25 divalproex 500 mg tablet,delayed 1,000 mg (2 x 500 mg) PO BID #360 01/17/25 release tabs Previous Rx's ?Medication ?Instructions ?Recorded levothyroxine 75 mcg tablet See Rx Instructions .Route 06/05/24 .COMPLEX #90 tabs blood sugar diagnostic (FreeStyle #100 ea 08/09/24 Lite Strips) blood-glucose meter (FreeStyle #1 ea 08/09/24 Lite Meter kit) lancets (Lancets,Ultra Thin) #100 ea 08/09/24 metoprolol tartrate 50 mg tablet 50 mg PO BID #90 tabs 10/22/24 fludrocortisone 0.1 mg tablet 0.2 mg (2 x 0.1 mg) PO DAILY #90 10/25/24 tabs empagliflozin 10 mg tablet 10 mg PO DAILY #30 tabs 11/20/24 (Jardiance) naproxen 500 mg tablet 500 mg PO BID PRN pain #180 tabs 11/27/24 semaglutide 0.25 mg or 0.5 mg (2 0.25 mg (0.368 mL) subcut QWEEK #3 11/27/24 mg/3 mL) subcutaneous pen injector mL (Ozempic) metformin 750 mg tablet,extended 750 mg PO BID #60 tabs 12/12/24 release 24 hr aripiprazole 20 mg tablet 20 mg PO DAILY #90 tabs 01/17/25 divalproex 500 mg tablet,delayed 1,000 mg (2 x 500 mg) PO BID #360 01/17/25 release tabs Allergies Allergy/AdvReac Type Severity Reaction Status Date / Time codeine Allergy Mild unknown Verified 12/12/24 16:09 General Stated Complaint: OD/Poison CECILIA: 2 Course Vital Signs Vital signs: Vital Signs Temperature 37.1 C 02/03/25 19:52 Pulse 77 02/03/25 19:52 Respiratory Rate 14 02/03/25 19:52 Blood Pressure 163/88 H 02/03/25 19:52 Pulse Oximetry 98 02/03/25 19:52 Temperature 37.1 C 02/03/25 19:52 Temperature Source Oral 02/03/25 19:52 Pulse 77 02/03/25 19:52 Respiratory Rate 14 02/03/25 19:52 Blood Pressure 163/88 H 02/03/25 19:52 Blood Pressure Position Sitting 02/03/25 19:52 Pulse Oximetry 98 02/03/25 19:52 Oxygen Delivery Method Room Air 02/03/25 19:52 Oxygen Flow Rate 0 02/03/25 19:52 Medical Decision Making Initial Assessment: 44-year-old female with lethargy and nausea following intentional overdose of 4 days' worth of medications, including metoprolol 150 mg. Medications ingested included fludrocortisone, levothyroxine, Jardiance, Abilify, Depakote, metoprolol tartrate. She reports weakness and nausea, denies headache, dizziness, chest pain, or difficulty breathing. Vital signs stable: HR 80, BP 139/78, RR 12, SpO2 97%. ED Course: - Administered Zofran for nausea. 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 Reviewed medications taken by patient. He recommends 12-hour observation on cardiac monitoring with every 4 hour APAP/ASA, every 2 hours lactate, and every 4 hours divalproex levels. Supportive care is indicated, including antiemetics and IV fluids as needed. Advised monitoring for the following symptoms based on ingestion: levothyroxine, risk of thyrotoxicosis/thyroid storm is greatest in 3 to 5 days; less than 2 mg is amenable ingestion. Jardiance may cause increased thirst and nausea. Divalproex may cause respiratory depression, hypotension, hyperthermia, anion gap metabolic acidosis, electrolyte imbalances. Metoprolol may cause bradycardia. Topiramate may cause non-anion gap acidosis, drowsiness/SCRAP PICKER depression. I independently interpreted the following tests: CBC, CMP, TSH, lactate, TSH, EtOH, UDS, and UA all unremarkable. Anion gap of 13.4 noted. VBG largely reassuring, pH 7.38. Initial levels of valproic acid (within range), APAP, ASA all reassuring. 2100: After some rest, Shaneka reports she is feeling significantly improved. Denies any symptoms at this time, says nausea and lethargy have resolved. She has been out of bed to use the commode. 2200: Lactate has increased from 1.5-2.1. 1 L normal saline administered; discussed lab results with Alex at [facility]-he is agreeable with plan for rehydration, recommends continued monitoring as described above Final Assessment: Patient presented with lethargy and nausea after consuming 4 days' worth of medications, including metoprolol. Vital signs stable. Zofran administered for nausea and Allen catheter inserted for urine output monitoring. Clinical Impression: - Medication overdose Handoff report given to Dr. Huffman, overnight attending. Patient to be monitored for 12 hours, after medical clearance to be evaluated by crisis MDM Components Evaluation: - Number of Differential Diagnoses or Management Options: Medication overdose - Amount and Complexity of Data Reviewed: Vital signs, patient history, physical examination - Risk of Complication and Morbidity or Mortality: Moderate risk due to intentional overdose and potential effects of consumed medications. Patient consented to the use of TARUN Quality:SDOH Health Related Social Needs: Health related social needs problems related to housin g/economic circumstances (Z59.89), problems with daily activities (Z73.9), feeling lonely/isolated (Z60.8) COUNT INCLUDES THE [facility] All Active Problems (Updated 02/03/25 @ 23:40 by Taryn Adams) Depression (Chronic) Cataracts, bilateral (Acute) Hypersomnolence (Acute) Increased ammonia level (Acute) Accidental overdose of valproate sodium (Acute) Adverse effect of beta-karina (Acute) Accidental metformin overdose (Acute) Drug overdose (Acute) Joint stiffness (Acute) Bipolar disorder (Acute) Right hip pain (Acute) Fullness in ear (Acute) sensation of needing ear canals 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 industrial (but usually clear) defect (Acute) Low back pain (Acute) Shoulder pain (Acute) Macrocytic anemia (Acute) Hypoalbuminemia due to protein-calorie malnutrition (Acute) 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 Diabetes mellitus type II, controlled (Acute) POTS (postural orthostatic tachycardia syndrome) (Acute) Plantar warts (Acute) Fatigue (Acute) Pelvic pain (Acute) Orthostatic hypotension (Acute) Chronic diarrhea (Acute) Nonalcoholic steatohepatitis (Acute) Hypothyroid (Chronic) Hirsutism (Acute) Dysfunctional uterine bleeding (Acute) Oligomenorrhea (Acute) Schizophrenia (Chronic) Medical History Uterine mass Non compliance w medication regimen Yeast dermatitis RLS (restless legs syndrome) H/O suicide attempt Schizoaffective disorder Deviated nasal septum Trigeminal neuralgia of left side of face (01/03/18) Type 2 diabetes mellitus History of hypothyroidism Drug overdose, intentional Surgical History S/p breast implant removal Sep 2019 S/P breast implant, left H/O pilonidal cyst S/P foot surgery Ligation of fallopian tube Family History Mother Diabetes Father Heart disease Social History Smoking/Tobacco Use Status: Current every day Tobacco Type: e-cigarettes Quit status: considering quitting Smoking risk assessment performed?: Yes Alcohol Intake: never Drug use: Current Sobriety Substance use type: does not use Adopted: No Caregiver/Support person: No Foster care: No Household members: none Housing: apartment Number of Children: 2 number of grandchildren: 0 Education Level: college Details: Some classes - no degree Do you need help understanding health information?: Never current occupation: Disabled Pets and animals: No (1) Sexually active: No Do you think of yourself as: straight/heterosexual Current gender identity: female What is your relationship status?: How often do you talk on the phone with friends or family?: once per week How often do you get together with friends or relatives?: never Do you belong to any clubs or organized social groups?: no Panel score (0-1 are the most socially isolated patients): 0 What type of physical activity do you participate in: walking Duration: 15-30 minutes/day Frequency: daily Lauren/Druze: Syn[employer] Special lauren needs: No Seatbelt use: always Helmet use: Yes Drive intox or ride w/intox recycle driver: No Do you feel safe at home: Yes Do you feel safe in your relationship?: Yes Female Reproductive History Menstrual Age of Menarche: 16 Duration of menses: other control method: permanent sterilization History History 2 Para 2 Hx # Term Pregnancies Multiple births Hx # Pregnancies Ectopic pregnancies AB induced Hx Number of Living Children AB spontaneous Past Pregnancies Del. Date GA/Weeks # Preg Succ Route Wgt Sex Labor Lgth Anesth esia Location Prov Complic 08/30/01 40 No Yes vaginal Female 03/25/02 40 No Yes vaginal Male Delivery Date: 08/30/01 [facility]: [facility]/02 Last Updated by: [facility]
[2025-02-03 20:03] LABS: Absolute Basophil Count 0.05 10^3/uL (0.0-0.2); Absolute Eosinophil Count 0.34 10^3/uL (0.0-0.7); Absolute Monocyte Count 0.58 10^3/uL (0.1-0.8); Absolute Neutrophil Count 5.06 10^3/uL (1.2-6.7); Basophils % 0.6 %; Eosinophils % 3.8 %; HCT 43.5 % (36.0-46.0); HGB 15.1 g/dL (11.2-15.7); Immature Grans % 1.1 %; Lymphocytes % 31.4 %; MCHC 34.7 % (32.0-36.0); MCV 95 fL (80-95); MPV 9.2 fL (8.0-11.0); Monocytes % 6.5 %; Neutrophils % 56.6 %; Platelet Count 319 10^3/uL (130-400); RBC 4.57 10^6/uL (3.93-5.22); RDW 12.2 % (11.7-14.6); RDW-SD 42.6 fL; WBC 8.93 10^3/uL (4.4-10.8)
[2025-02-03] MEDS: Ondansetron 4 MG/2 ML VIAL IVP (20:12)
[2025-02-03 20:19] LABS: BE (Venous) -3 mmol/L (-2-3); HCO3 (Venous) 22 mmol/L (23-28); O2 Sat (Venous) 90 %; TCO2 (Venous) 19 mmol/L (24-29); pCO2 (Venous) 37 mmHg (41-51); pH (Venous) 7.38 (7.31-7.41); pO2 (Venous) 55 mmHg
[2025-02-03 20:21] LABS: Lactate 1.5 mmol/L (<or=2.0)
[2025-02-03 20:23] LABS: Salicylate < 2.8 mg/dL (<2.8)
[2025-02-03 20:25] LABS: Acetaminophen < 2 ug/mL (10-30); ETHANOL BLOOD < 3.0 mg/dL (<10)
[2025-02-03 20:28] LABS: ALT 22 U/L (14-59); AST 14 U/L (15-37); Albumin 3.6 g/dL (3.4-5.0); Alkaline Phosphatase 171 U/L (46-116); Anion Gap 13.4 mmol/L (3-11); BUN 15 mg/dL (7-18); Bilirubin, Total 0.3 mg/dL (0.2-1.0); CO2 24.6 mmol/L (21.0-32.0); CREATININE 0.6 mg/dL (0.55-1.02); Calcium 8.9 mg/dL (8.5-10.1); Chloride 100 mmol/L (98-107); Estimated GFR 113.44 (mL/min/1.73m2); Glucose 201 mg/dL (74-106); Potassium 3.5 mmol/L (3.5-5.1); Sodium 138 mmol/L (136-145); TSH (W/Ref FT4) 1.52 uIU/mL (0.36-3.74); Total Protein 7.6 g/dL (6.4-8.2)
[2025-02-03 20:29] LABS: Bilirubin Negative (Negative); Blood Negative (Negative); Clarity Clear (Clear); Glucose 500 mg/dL (Negative); Ketones 15 mg/dL (Negative); Leukocyte Esterase Negative (Negative); Nitrite Negative (Negative); Specific Gravity 1.015 (1.005-1.025); Urobilinogen 0.2 mg/dL (Up to 0.2); pH 7.5 (5-8)
[2025-02-03 20:34] LABS: VALPROIC ACID 63.1 ug/mL
[2025-02-03 20:41] LABS: *AMPHETAMINES SCREEN URINE Negative (Negative); *BARBITURATES SCREEN URINE Negative (Negative); *BENZODIAZEPINES SCREEN URINE Negative (Negative); Cannabinoids THC Negative (Negative); Cocaine Screen,Urine Negative (Negative); METHADONE URINE SCREEN Negative (Negative); OPIATES URINE SCREEN Negative (Negative)
[2025-02-03 20:42] LABS: Tricyclic Antidepressants Negative (Negative)
[2025-02-03 21:20] LABS: Ammonia 15 umol/L (11-32)
[2025-02-03] MEDS: Normal Saline 500 ML IV (21:20)
[2025-02-03 22:08] LABS: Lactate 2.1 mmol/L (<or=2.0)
[2025-02-03] MEDS: Normal Saline 1,000 ML 1000 ML IV (22:14)
[2025-02-04] VITALS (42 sets, daily range): BP systolic 76–119; BP diastolic 43–76; PULSE 65–94; RESP 10–21; TEMP 36.5–36.8; O2SAT 94–98
[2025-02-04 00:14] LABS: Lactate 2.8 mmol/L (<or=2.0)
[2025-02-04 00:28] LABS: Salicylate < 2.8 mg/dL (<2.8)
[2025-02-04 00:33] LABS: Acetaminophen < 2 ug/mL (10-30)
[2025-02-04 00:52] LABS: VALPROIC ACID 262.2 ug/mL
[2025-02-04] MEDS: Normal Saline 1,000 ML 1000 ML IV (01:07)
[2025-02-04 01:23] LABS: Ammonia 29 umol/L (11-32)
[2025-02-04 01:25] LABS: ALT 18 U/L (14-59); AST 10 U/L (15-37); Albumin 3.1 g/dL (3.4-5.0); Alkaline Phosphatase 112 U/L (46-116); Anion Gap 13.1 mmol/L (3-11); BUN 12 mg/dL (7-18); Bilirubin, Total 0.2 mg/dL (0.2-1.0); CO2 23.9 mmol/L (21.0-32.0); CREATININE 0.7 mg/dL (0.55-1.02); Calcium 8.1 mg/dL (8.5-10.1); Chloride 109 mmol/L (98-107); Glucose 154 mg/dL (74-106); Potassium 3.4 mmol/L (3.5-5.1); Sodium 146 mmol/L (136-145); Total Protein 6.6 g/dL (6.4-8.2)
--- NOTE | 2025-02-04 01:57 | HPE_ITS ---
Date of service: 02/04/25 Time of Service: 01:57 Assessment and Plan Assessment and plan (1) Intentional overdose: Start date: 02/04/25 Status: Acute Assessment and plan: This is a 44-year-old lady who has had previous suicidal attempts who presents to the ED after EMS system was prompted by a friend because of the patient appearing drowsy. She admits to taking several days of all of her day and nighttime medications as the worst case scenario and selectively taking that many days of her medications as the best case scenario. She does appear to have really taken the metformin and Depakote with Depakote level rising but now trending downward and her lactic acidosis rising but now trending downward with IV hydration. She continues to be somnolent. She is on suicide watch. Mental health has been consulted and they will evaluate the patient for possible inpatient treatment once she is medically cleared. Presently she is ICU level care with her close monitoring and frequent labs as well as her unknown amount of overdose in which pills. She is on IV hydration and levocarnitine treating at least the Depakote and metformin overdose. Cardiac monitoring will continue. She is a full code. (2) Acute lactic acidosis: Start date: 02/04/25 Status: Acute Assessment and plan: IV hydration with normal saline and trend labs every 4 hours. Patient appears to be responding to IV hydration and supportive care. (3) Suicidal ideation: Start date: 02/04/25 Status: Acute Assessment and plan: Patient has schizophrenia and bipolar disorder with suicide attempt in the past by overdosing. They are hopeful stated patient will possible inpatient treatment once she is medically cleared. She appeared to have poor control of her psychiatric disease. (4) Bipolar disorder: Status: Chronic Assessment and plan: On multiple medications and poorly controlled. (5) Type 2 diabetes mellitus: Assessment and plan: Holding metformin the patient having, measurements before meals and bedtime and sensitive sliding scale coverage if needed. She continues IV hydration at a high rate (6) Hypothyroidism (acquired): Status: Chronic Assessment and plan: On levothyroxine which may have been overdose as well but is inconsequential. (7) Schizophrenia: Status: Chronic Assessment and plan: On medical therapy with poor control. Mental health to address. History of Present Illness History of Present Illness Chief Complaint: Intentional overdose of multiple medications. Narrative: This is a 44-year-old female patient who has her medications packaged in blister packs for the week and day and night packet is presented to the ED via EMS after taking at least 4 to 5 days worth of her medications intentionally because she was depressed and wanted to not be sad though she stated to an earlier ED physician that she wanted to end her life. She initially was somnolent in the ED regarding her airway and able to give history. By the second ED physicians estimation she took at least 0.5 g of Depakote, 150 mg of Topamax and 200 mg of metoprolol with Jardiance 20 mg, fludrocortisone 0.4 mg, levothyroxine 150 mcg, metformin 1500 mg and aripiprazole 40 mg. EMS was triggered by a friend but notes that the patient was acting more sleepy than her normal. The patient would vary her history to the various providers and patient denied taking metformin specifically, though she was progressing with lactic acidosis which would be consistent with her taking a large dose of this medication. She is unreliable. She most likely is suicidal having done this in the past. She needs medical clearance for mental health to discuss possible inpatient treatment for patient's safety. At this point she is voluntary and will be admitted to the ICU for close monitoring with her various overdoses needing close monitoring of her lactic acidosis with IV hydration for clearance, potassium repletion will be done orally, monitoring ammonia level with her Depakote overdose with Depakote levels. She also was given oral levocarnitine with 100 mg kilogram loading dose advised and then 15 mg dosing every 4 hours to decrease absorption of Depakote. We have only the oral dose and a lower dose to be given for loading with attempting a close dosing of the every 4 hours recommendations. Most of her care is simply supportive but needs close monitoring in the ICU. She is a full code. Review of Systems Narrative: 13 point review of systems otherwise unrevealing or unobtainable with patient being an unreliable historian secondary to her psychiatric disease. PFSH All Active Problems (Updated 02/04/25 @ 02:19 by Samuel Rasmussen) Intentional overdose (Acute) Suicidal ideation (Acute) Hypothyroidism (acquired) (Chronic) Overdose (Acute) Metformin overdose (Acute) Acute lactic acidosis (Acute) Depression (Chronic) Cataracts, bilateral (Acute) Hypersomnolence (Acute) Increased ammonia level (Acute) Accidental overdose of valproate sodium (Acute) Adverse effect of beta-karina (Acute) Accidental metformin overdose (Acute) Drug overdose (Acute) Joint stiffness (Acute) Bipolar disorder (Chronic) Right hip pain (Acute) Fullness in ear (Acute) sensation of needing ear canals domestic cleaner (but usually clear) defect (Acute) Low back pain (Acute) Shoulder pain (Acute) Macrocytic anemia (Acute) Hypoalbuminemia due to protein-calorie malnutrition (Acute) 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 Diabetes mellitus type II, controlled (Acute) POTS (postural orthostatic tachycardia syndrome) (Acute) Plantar warts (Acute) Fatigue (Acute) Pelvic pain (Acute) Orthostatic hypotension (Acute) Chronic diarrhea (Acute) Nonalcoholic steatohepatitis (Acute) Hypothyroid (Chronic) Hirsutism (Acute) Dysfunctional uterine bleeding (Acute) Oligomenorrhea (Acute) Schizophrenia (Chronic) Medical History Uterine mass Non compliance w medication regimen Yeast dermatitis RLS (restless legs syndrome) H/O suicide attempt Schizoaffective disorder Deviated nasal septum Trigeminal neuralgia of left side of face (01/03/18) Type 2 diabetes mellitus History of hypothyroidism Drug overdose, intentional Surgical History S/p breast implant removal Sep 2019 S/P breast implant, left H/O pilonidal cyst S/P foot surgery Ligation of fallopian tube Family History Mother Diabetes Father Heart disease Social History Smoking/Tobacco Use Status: Current every day Tobacco Type: e-cigarettes Quit status: considering quitting Smoking risk assessment performed?: Yes Alcohol Intake: never Drug use: Current Sobriety Substance use type: does not use Adopted: No Caregiver/Support person: No Foster care: No Household members: none Housing: apartment Number of Children: 2 number of grandchildren: 0 Education Level: college Details: Some classes - no degree Do you need help understanding health information?: Never current occupation: Disabled Pets and animals: No (1) Sexually active: No Do you think of yourself as: straight/heterosexual Current gender identity: female What is your relationship status?: How often do you talk on the phone with friends or family?: once per week How often do you get together with friends or relatives?: never Do you belong to any clubs or organized social groups?: no Panel score (0-1 are the most socially isolated patients): 0 What type of physical activity do you participate in: walking Duration: 15-30 minutes/day Frequency: daily Lauren/Holiness: Pentecostal Special lauren needs: No Seatbelt use: always Helmet use: Yes Drive intox or ride w/intox 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 Date GA/Weeks # Preg Succ Route Wgt Sex Labor Lgth Anesth esia Location [facility] 08/30/01 40 No Yes vaginal Female 03/25/02 40 No Yes vaginal Male Delivery Date: 08/30/01 [facility]: [facility]02 Last [facility]: [facility] Meds Allergies and Home Medications Allergies Allergy/AdvReac Type Severity Reaction Status Date / Time codeine Allergy Mild unknown Verified 02/04/25 02:10 Home Medications ?Medication ?Instructions ?Recorded ?Confirmed ?Type levothyroxine 75 mcg tablet See Rx Instructions .Route 06/05/24 02/04/25 Rx .COMPLEX #90 tabs blood sugar diagnostic (FreeStyle #100 ea 08/09/24 02/04/25 Rx Lite Strips) blood-glucose meter (FreeStyle #1 ea 08/09/24 02/04/25 Rx Lite Meter kit) lancets (Lancets,Ultra Thin) #100 ea 08/09/24 02/04/25 Rx topiramate 50 mg tablet (Topamax) 50 mg PO DAILY 10/17/24 02/04/25 History metoprolol tartrate 50 mg tablet 50 mg PO BID #90 tabs 10/22/24 02/04/25 Rx fludrocortisone 0.1 mg tablet 0.2 mg (2 x 0.1 mg) PO DAILY #90 10/25/24 02/04/25 Rx tabs empagliflozin 10 mg tablet 10 mg PO DAILY #30 tabs 11/20/24 02/04/25 Rx (Jardiance) naproxen 500 mg tablet 500 mg PO BID Joint stiffness 11/27/24 02/04/25 History naproxen 500 mg tablet 500 mg PO BID PRN pain #180 tabs 11/27/24 02/04/25 Rx semaglutide 0.25 mg or 0.5 mg (2 0.25 mg (0.368 mL) subcut QWEEK #3 11/27/24 02/04/25 Rx mg/3 mL) subcutaneous pen injector mL (Ozempic) turmeric root extract 500 mg tablet 1,000 mg PO BID PRN Joint 11/27/24 02/04/25 History stiffness/soreness metformin 750 mg tablet,extended 750 mg PO BID #60 tabs 12/12/24 02/04/25 Rx release 24 hr aripiprazole 20 mg tablet 20 mg PO DAILY #90 tabs 01/17/25 02/04/25 Rx divalproex 500 mg tablet,delayed 1,000 mg (2 x 500 mg) PO BID #360 01/17/25 02/04/25 Rx release tabs Exam Narrative Exam Narrative: General: Patient appears appropriate for age, somnolent but opens her eyes in response to verbal stimulation with attempt to reply to questions. She is in no acute distress. Flattened affect but slow monotonous tone to voice. She is awake alert and oriented to person and place. HEENT: Normocephalic, course and facial features, eyes with pupils equal and react to light symmetrically, extraocular movement intact and sclera anicteric. Oropharynx with dry mucosa and poor dentition. Neck: Supple without JVD. Back: Stooped posture without CVA tenderness. Lungs: Aeration clear to oscillation percussion with poor inspiratory effort, no focalizing rales or rhonchi. No expiratory wheeze. Heart: Regular rate and rhythm with no appreciable murmur or gallop. Breast: Exam deferred. Abdomen: Obese contour, soft and nontender to palpation without palpable hepatosplenomegaly. No guarding or rebound. Bowel sounds positive all quadrants. Genitalia/rectal: Exam deferred. Patient does have Allen catheter in place. Extremities: No clubbing, cyanosis or pitting edema. Peripheral pulses intact. Skin: Pale, moist and warm. Neuro: Cranial nerve II through XII grossly intact, no focal motor deficits or tremor. Psych: Pleasant affect and depressed mood. Patient is somnolent. No abnormal thought processes. Remote memory grossly intact when patient is awake and recent memory not testable with patient's somnolence. Results Labs 02/04/25 05:05 02/04/25 05:05 Labs: Laboratory Results - last 24 hr 02/03/25 02/03/25 02/03/25 19:51 19:57 20:07 WBC 8.93 RBC 4.57 Hgb 15.1 Hct 43.5 MCV 95 MCH 33.0 MCHC 34.7 RDW 12.2 Plt Count 319 MPV 9.2 Immature Gran % 1.1 Neutrophils % 56.6 Lymphocytes % 31.4 Monocytes % 6.5 Eosinophils % 3.8 Basophils % 0.6 Nucleated RBC % 0.0 Absolute Neutrophils 5.06 Absolute Lymphocytes 2.80 Absolute Monocytes 0.58 Absolute Eosinophils 0.34 Absolute Basophils 0.05 VBG pH VBG pCO2 VBG pO2 VBG HCO3 VBG Total CO2 VBG O2 Saturation VBG Base Excess VBG Lactate Sodium 138 Potassium 3.5 Chloride 100 Carbon Dioxide 24.6 Anion Gap 13.4 H BUN 15 Creatinine 0.6 Est GFR (CKD-EPI 2020) 113.44 Glucose 201 H Calcium 8.9 Total Bilirubin 0.3 AST 14 L ALT 22 Alkaline Phosphatase 171 H Ammonia Total Protein 7.6 Albumin 3.6 TSH 1.52 Urine Color Yellow Urine Clarity Clear Urine pH 7.5 Ur Specific [place] 1.015 Urine Protein Negative Urine Ketones 15 H Urine Blood Negative Urine Nitrite Negative Urine Bilirubin Negative Urine Urobilinogen 0.2 Ur Leukocyte Esterase Negative Urine Glucose 500 H Salicylates < 2.8 Urine Opiates Screen Negative Urine Methadone Screen Negative Acetaminophen < 2 Ur Barbiturates Screen Negative Valproic Acid 63.1 Ur Tricyclics Screen Negative Ur Amphetamines Screen Negative U Benzodiazepines Scrn Negative Urine Cocaine Screen Negative Ur THC Screen Negative Ethyl Alcohol < 3.0 COVID-19 Source Cancelled SARS-CoV-2 (PCR) Cancelled Influenza Type A (PCR) Cancelled Influenza Type B (PCR) Cancelled RSV (PCR) Cancelled 02/03/25 02/03/25 02/03/25 20:08 20:11 21:00 WBC RBC Hgb Hct MCV MCH MCHC RDW Plt Count MPV Immature Gran % Neutrophils % Lymphocytes % Monocytes % Eosinophils % Basophils % Nucleated RBC % Absolute Neutrophils Absolute Lymphocytes Absolute Monocytes Absolute Eosinophils Absolute Basophils VBG pH 7.38 VBG pCO2 37 L VBG pO2 55 VBG HCO3 22 L VBG Total CO2 19 L VBG O2 Saturation 90 VBG Base Excess -3 L VBG Lactate Cancelled 1.5 Sodium Potassium Chloride Carbon Dioxide Anion Gap BUN Creatinine Est GFR (CKD-EPI 2020) Glucose Calcium Total Bilirubin AST ALT Alkaline Phosphatase Ammonia 15 Total Protein Albumin TSH Urine Color Urine Clarity Urine pH Ur Specific [place] Urine Protein Urine Ketones Urine Blood Urine Nitrite Urine Bilirubin Urine Urobilinogen Ur Leukocyte Esterase Urine Glucose Salicylates Urine Opiates Screen Urine Methadone Screen Acetaminophen Ur Barbiturates Screen Valproic Acid Ur Tricyclics Screen Ur Amphetamines Screen U Benzodiazepines Scrn Urine Cocaine Screen Ur THC Screen Ethyl Alcohol COVID-19 Source SARS-CoV-2 (PCR) Influenza Type A (PCR) Influenza Type B (PCR) RSV (PCR) 02/03/25 02/04/25 02/04/25 22:08 00:00 01:02 WBC RBC Hgb Hct MCV MCH MCHC RDW Plt Count MPV Immature Gran % Neutrophils % Lymphocytes % Monocytes % Eosinophils % Basophils % Nucleated RBC % Absolute Neutrophils Absolute Lymphocytes Absolute Monocytes Absolute Eosinophils Absolute Basophils VBG pH VBG pCO2 VBG pO2 VBG HCO3 VBG Total CO2 VBG O2 Saturation VBG Base Excess VBG Lactate 2.1 2.8 H* Sodium 146 H Potassium 3.4 L Chloride 109 H Carbon Dioxide 23.9 Anion Gap 13.1 H BUN 12 Creatinine 0.7 Est GFR (CKD-EPI 2020) 109.30 Glucose 154 H Calcium 8.1 L Total Bilirubin 0.2 AST 10 L ALT 18 Alkaline Phosphatase 112 Ammonia 29 Total Protein 6.6 Albumin 3.1 L TSH Urine Color Urine Clarity Urine pH Ur Specific [place] Urine Protein Urine Ketones Urine Blood Urine Nitrite Urine Bilirubin Urine Urobilinogen Ur Leukocyte Esterase Urine Glucose Salicylates < 2.8 Urine Opiates Screen Urine Methadone Screen Acetaminophen < 2 Ur Barbiturates Screen Valproic Acid 262.2 H* Ur Tricyclics Screen Ur Amphetamines Screen U Benzodiazepines Scrn Urine Cocaine Screen Ur THC Screen Ethyl Alcohol COVID-19 Source SARS-CoV-2 (PCR) Influenza Type A (PCR) Influenza Type B (PCR) RSV (PCR) Last Vital Signs Temp 37.1 C 02/03/25 19:52 Pulse 84 02/04/25 01:43 Resp 15 02/04/25 01:10 BP 90/52 L 02/04/25 01:43 Pulse Ox 96 02/04/25 01:43 Time Spent Time spent with Patient: >75 minutes Time was spent: preparing to see the patient(eg.review tests), obtaining and/or reviewing separately otained hiistory, ordering medications,tests, procedures, referring, communicating with other health critical care cns, indepentently interpreting results and care coordination
--- NOTE | 2025-02-04 02:05 | W.EDPROG ---
Date of service: 02/04/25 Time of Service: 02:05 Medical Decision Making Patient was received in signout from Taryn. Please refer to her HPI, physical exam, assessment and plan. At time of signout patient was hemodynamically stable, and plan was for continued regular blood draws with expectant clearance in the morning. Unfortunately patient's laboratory workup has transitioned, lactate is trending upwards, her lactate has gone from 1.5, to 2.1, to 2.8. This is in spite of a 1500 cc bolus provided by Taryn. This likely reflects a metformin induced lactic acidosis. I did reengage with the patient and she states she is not certain if she took metformin or not now. Blood sugar remained stable. Metformin related acidosis is high on the differential. Will continue with IV fluids at 150 cc/h, plus an additional liter bolus. Additionally the patient's Depakote level has transitioned from 63-260. Ammonia also seems to be slowly climbing and currently resides at 29 although this is still within normal limits. This certainly also does elicit concern for potential Depakote overdose. We do not have IV dosed L-carnitine, however we do have oral L-carnitine. I did talk to the transfer center, and in regards to the metformin overdose they just read recommend continue supportive care and IV fluids and close monitoring. In regards to the Depakote overdose they recommend L-carnitine 100 mg/kg for an initial loading dose with a max of 6 g, followed by 15 mg/kg every 4 hours, however this is all for the IV medication. The bioavailability of L-carnitine orally is only around 5 to 25% compared to the IV equivalent. We will give 2 g of oral L-carnitine now. This was discussed with the poison center, and they agreed. I do feel that the patient would benefit from ICU admission for continued close monitoring, hydration, and assessment. From a vital sign perspective, the patient is sleeping, however she is easily aroused. She appears to be at her normal baseline when she is awoken. Blood pressures are hovering in the mid 90s systolic. She has no bradycardia though to suggest significant beta-karina overdose. I did review the patient's EKG that was read prior to my arrival. QT is normal, QRS is normal. No signs of prolongation. With no pronounced hypotension, with no pronounced altered mental status or obtundation I do not see an indication for pressors or intubation at this time. I discussed the case with the hospitalist Dr. Rasmussen, he agrees with the assessment and plan. I have extensively reviewed the treatment plan with the patient. I have addressed all patient concerns at this time. I have also discussed the plan with the admitting physician and they agree with the current assessment and plan and have agreed to assume responsibility for the patient. All parties demonstrate verbal understanding and agreement with our assessment and plan at this time. The documentation in this chart was dictated using [employer] dictation software. Please excuse any dictation errors. Quality:SDOH Health Related Social Needs: Health related social needs problems related to housing/economic circumstances (Z59.89), problems with daily activities (Z73.9), feeling lonely/isolated (Z60.8) Critical Care Time Critical Care Time Critical Care Time: Yes Total Critical Care Time: 70 Attestation: Upon my evaluation, this patient had a high probability of imminent or life-threatening deterioration, which required my direct attention, intervention, and personal management. I have personally provided 45 minutes of critical care time exclusive of time spent on separately billable procedures. Time includes review of laboratory data, radiology results, discussion with consultants, and monitoring for potential decompensation. Interventions were performed as documented. Discharge Plan Disposition Patient Disposition: Admit to [facility] Condition: Serious Discharge Details Chief Complaint: OD/Poison Clinical Impression: Drug overdose, Depression, Acute lactic acidosis, Metformin overdose, Overdose Primary Care Provider: Antoni Ohara ED Provider: Ankur Huffman Home Meds and New Rx's Prescriptions: No Action (DME) blood-glucose meter [FreeStyle Lite Meter] Kit See Rx Instructions .Route Qty: 1 0RF Rx Instructions: Check blood sugars daily. E11.9.Keep A1c below 7 (DME) FreeStyle Lite Strips Strip See Rx Instructions .Route Qty: 100 3RF Rx Instructions: Check blood sugars daily. DX: E11.9. Keep A1c below 7 (DME) lancets [Lancets,Ultra Thin] Misc See Rx Instructions .Route Qty: 100 3RF Rx Instructions: Check blood sugars daily. DX: E11.9.Keep A1c below 7. turmeric root extract 500 mg tablet 1,000 mg PO BID PRN (Reason: Joint stiffness/soreness) naproxen 500 mg tablet 500 mg PO BID naproxen 500 mg tablet 500 mg PO BID PRN (Reason: pain) Qty: 180 3RF Ozempic 0.25 mg or 0.5 mg (2 mg/3 mL) pen injector 0.25 mg subcut QWEEK Qty: 3 0RF Rx Instructions: for 4 weeks metformin 750 mg tablet extended release 24 hr 750 mg PO BID Qty: 60 3RF Rx Instructions: Take with food levothyroxine 75 mcg tablet See Rx Instructions .ROUTE .COMPLEX Qty: 90 3RF Dose Instruction: TAKE 1 TABLET BY MOUTH DAILY Rx Instructions: TAKE 1 TABLET BY MOUTH DAILY metoprolol tartrate 50 mg tablet 50 mg PO BID Qty: 90 3RF fludrocortisone 0.1 mg tablet 0.2 mg PO DAILY Qty: 90 3RF Rx Instructions: Reported by Terrance Cleveland 02/23/2024 Jardiance 10 mg tablet 10 mg PO DAILY Qty: 30 3RF aripiprazole 20 mg tablet 20 mg PO DAILY Qty: 90 3RF divalproex 500 mg tablet,delayed release (DR/EC) 1,000 mg PO BID Qty: 360 3RF topiramate [Topamax] 50 mg tablet 50 mg PO DAILY
[2025-02-04 02:17] LABS: Lactate 2.1 mmol/L (<or=2.0)
[2025-02-04 03:22] LABS: Lactate 1.7 mmol/L (<or=2.0)
[2025-02-04] MEDS: Normal Saline 1,000 ML 150 ML IV (03:24)
[2025-02-04 03:40] LABS: Ammonia 31 umol/L (11-32)
[2025-02-04] MEDS: Potassium Chloride 20 MEQ TABCR PO (03:43)
[2025-02-04 04:45] LABS: Salicylate < 2.8 mg/dL (<2.8)
[2025-02-04 04:55] LABS: VALPROIC ACID 179.7 ug/mL
[2025-02-04 04:57] LABS: Acetaminophen < 2 ug/mL (10-30)
--- NOTE | 2025-02-04 05:04 | NUR.NOTE ---
0440-Poison control called. Update given on vital signs, labs, medications given in ICU and the ER.
[2025-02-04 05:15] LABS: HCT 37.7 % (36.0-46.0); MCH 33.2 pg (27.0-33.0); MCHC 34.5 % (32.0-36.0); MCV 96 fL (80-95); MPV 9.2 fL (8.0-11.0); Platelet Count 274 10^3/uL (130-400); RBC 3.91 10^6/uL (3.93-5.22); RDW 12.5 % (11.7-14.6); RDW-SD 44.6 fL
[2025-02-04 05:35] LABS: Ammonia 28 umol/L (11-32)
[2025-02-04 05:37] LABS: ALT 16 U/L (14-59); AST 12 U/L (15-37); Albumin 2.8 g/dL (3.4-5.0); Alkaline Phosphatase 82 U/L (46-116); BUN 11 mg/dL (7-18); Bilirubin, Total 0.3 mg/dL (0.2-1.0); CREATININE 0.5 mg/dL (0.55-1.02); Calcium 7.7 mg/dL (8.5-10.1); Chloride 110 mmol/L (98-107); Estimated GFR 118.53 (mL/min/1.73m2); Glucose 122 mg/dL (74-106); Potassium 3.1 mmol/L (3.5-5.1); Sodium 145 mmol/L (136-145)
[2025-02-04 07:23] LABS: Lactate 0.8 mmol/L (<or=2.0)
[2025-02-04 07:38] LABS: Ammonia 23 umol/L (11-32)
[2025-02-04 07:55] LABS: Acetaminophen 3 ug/mL (10-30); Salicylate < 2.8 mg/dL (<2.8); VALPROIC ACID 112.3 ug/mL
[2025-02-04] MEDS: Normal Saline Flush 10 ML SYR IVP (08:04)
[2025-02-04] MEDS: POTASSIUM CHLORIDE 20 MEQ/100 ML BAG 50 MEQ IV_INF (08:05)
[2025-02-04] MEDS: Enoxaparin 40 MG/0.4 ML SYR SC (08:34)
[2025-02-04 09:38] LABS: Ammonia 53 umol/L (11-32)
--- NOTE | 2025-02-04 09:56 | INITIAL_ITS ---
Date of service: 02/04/25 Time of Service: 09:56 Care Management Initial Assmt Initial Assessment Reason for Hospitalization: Intentional Overdose Functional Status/Living Situation Patient Presentation: Shaneka was awake and lying in bed when CM met with her. She is being closely monitored due to an overdose of her Dilantin. Shaneka is tired, but engages well in conversation. She is worried about her cat and is trying to get ahold of her neighbor to care for it. Shaneka shares that she lives alone in [facility], she is disabled due to schizophrenia and feels that she has supportive friends and family. Shaneka does not drive and transportation is often provided by her friends or family. Interim safety plan was established this morning. Pt was later cleared by [facility] from a standpoint; Shaneka is planning to follow up with [facility] on Tuesday and is encouraged to reach out to behavioral health specialist at her PCP office for follow up. Town of Residence: [facility] Resides with: Alone Significant Other/Family: Local Natural Supports: Neighbors, Syed and Richi Employment Status: Unemployed Instrumental Activities of Daily Living (ADLs): Independent Medications Medication Management: Issues/Barriers with Other (Overdose on Depakote led to this hospitalization) Advance Directives Advance Directives: Do you have an Advance Directive: N 01/28/23 12:56 AD On File at [facility]: N 01/28/23 12:56 Date Asked 02/03/25 02/03/25 19:36 AD Date Reviewed COLST On File at [facility] No 12/11/23 21:00 COLST Date Scanned Code Status Resuscitation Status Full Code Insurance Coverage/Financial Issues Insurance: Medicaid of [place] - [id number] Care Team Visit Care Team Role Provider Type Antoni Ohara DO Primary Care Provider OSTEOPATHIC DOCTOR Ankur Huffman DO Emergency Provider [facility] STAFF PHYSICIAN Samuel Rasmussen Admit Provider NON-[facility] STAFF PHYSICIAN Attending Provider Discharge Potential Discharge Needs: PCP F/U Appt and Other (F/U with Behavioral Health ) Anticipated Barriers to Discharge: Medical Status Patient/Family Education Needs: Review discharge instructions, discuss Ask Me Three Transportation: Private vehicle Plan: [facility] screened Shaneka and she was cleared from a MH standpoint. Shaneka is planning to discharge home when she is medically ready for discharge. She is planning to connect with [facility] on Tuesday and the clinician who screened her today asked that she reach out to the Behavioral Health specialist at her PCP office. CM will continue to follow. Social Determinants of Health Screening Social Determinants of health last assessed in clinic: 02/04/25 Will the Patient Participate in the Screening?: Yes Do you worry about having a steady place to live?: yes What is your living situation today?: I do not have steady housing Problems where you live: no known problems In the past 12 months, have you had to go without electric, gas, oil or water in your home?: no 1. Within the past 12 months, we worried whether our food would run out before we got money to buy more.: Never true 2. Within the past 12 months, the food we bought just didn't last and we didn't have money to get more.: Never true Has lack of transportation kept you from medical appointments or from doing things needed for daily living?: no Has anyone in your life made you feel unsafe or unsupported?: no How hard is it for you to pay for the very basics like food, housing, medical care, and heating? Would you say it is:: Not hard at all Do you want help finding or keeping work or a job?: I do not need or want help If for any reason you need help with day-to-day activities such as bathing, preparing meals, shopping, managing finances, etc., do you get the help you need?: I need a lot more help How often do you feel lonely or isolated from those around you?: Sometimes Do you speak a language other than Kiswahili at home?: No Does the patient want assistance with any of the above?: No Health Related Social Needs Health related social needs: housing instability, housed, with risk of homelessness (Z59.811), problems with daily activities (Z73.9) and feeling lonely/isolated (Z60.8) Health related social needs details: states she has no problems with housing, heating or food. her does problems with depression and mental health [facility] All Active Problems (Updated 02/04/25 @ 02:19 by Samuel Rasmussen) Intentional overdose (Acute) Suicidal ideation (Acute) Hypothyroidism (acquired) (Chronic) Overdose (Acute) Metformin overdose (Acute) Acute lactic acidosis (Acute) Depression (Chronic) Cataracts, bilateral (Acute) Hypersomnolence (Acute) Increased ammonia level (Acute) Accidental overdose of valproate sodium (Acute) Adverse effect of beta-karina (Acute) Accidental metformin overdose (Acute) Drug overdose (Acute) Joint stiffness (Acute) Bipolar disorder (Chronic) Right hip pain (Acute) Fullness in ear (Acute) sensation of needing ear canals assembly cleaner (but usually clear) defect (Acute) Low back pain (Acute) Shoulder pain (Acute) Macrocytic anemia (Acute) Hypoalbuminemia due to protein-calorie malnutrition (Acute) 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 Diabetes mellitus type II, controlled (Acute) POTS (postural orthostatic tachycardia syndrome) (Acute) Plantar warts (Acute) Fatigue (Acute) Pelvic pain (Acute) Orthostatic hypotension (Acute) Chronic diarrhea (Acute) Nonalcoholic steatohepatitis (Acute) Hypothyroid (Chronic) Hirsutism (Acute) Dysfunctional uterine bleeding (Acute) Oligomenorrhea (Acute) Schizophrenia (Chronic) Medical History Uterine mass Non compliance w medication regimen Yeast dermatitis RLS (restless legs syndrome) H/O suicide attempt Schizoaffective disorder Deviated nasal septum Trigeminal neuralgia of left side of face (01/03/18) Type 2 diabetes mellitus History of hypothyroidism Drug overdose, intentional Surgical History S/p breast implant removal Sep 2019 S/P breast implant, left H/O pilonidal cyst S/P foot surgery Ligation of fallopian tube Family History Mother Diabetes Father Heart disease Social History Smoking/Tobacco Use Status: Current every day Tobacco Type: e-cigarettes Quit status: considering quitting Smoking risk assessment performed?: Yes Alcohol Intake: never Drug use: Current Sobriety Substance use type: does not use Adopted: No Caregiver/Support person: No Foster care: No Household members: none Housing: apartment Number of Children: 2 number of grandchildren: 0 Education Level: college Details: Some classes - no degree Do you need help understanding health information?: Never current occupation: Disabled Pets and animals: No (1) Sexually active: No Do you think of yourself as: straight/heterosexual Current gender identity: female What is your relationship status?: How often do you talk on the phone with friends or family?: once per week How often do you get together with friends or relatives?: never Do you belong to any clubs or organized social groups?: no Panel score (0-1 are the most socially isolated patients): 0 What type of physical activity do you participate in: walking Duration: 15-30 minutes/day Frequency: daily Lauren/Tenriism: Jainism Special lauren needs: No Seatbelt use: always Helmet use: Yes Drive intox or ride w/intox 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 Date GA/Weeks # Preg Succ Route Wgt Sex Labor Lgth Anesth esia Location Prov Complic 08/30/01 40 No Yes vaginal Female 03/25/02 40 No Yes vaginal Male Delivery Date: 08/30/01 Last Updated by: [facility]imee [facility] [place] Delivery Date: 03/25/02 Last Updated by: Aimee EncisoSELECT [facility]ICAL [facility] [place]
--- NOTE | 2025-02-04 10:00 | CMSP_ITS ---
Date of service: 02/04/25 Time of Service: 10:01 Care Management Safety Plan Status Status: Interim Reason for Wait Reason for Wait: Inpatient Admission Safety Plan Safety Plan: Care Management Safety Plan Status Status: Interim Reason for Wait Reason for Wait: Medical Clearance Safety Plan Safety Plan: CM will respond to ICU to assess patient after patient has been medically cleared and assessed by screener. If screener deems patient meets criteria for psychiatric stabilization CM will facilitate interdepartmental huddle with [facility] screener for safety planning considerations and meet with patient to review [facility] policy and safety plan, establish individual wishes for treatment and maintain patient rights. In the interim; please note safety plan below to guide patient care while awaiting further assessment.? SAFETY PLAN: 1. Will remain on suicide precautions and in paper clothes/hospital gown.? 2. Will remain in room under direct supervision of one-on-one staff at all times provided by LUIS MANUEL, [place] corrections lieutenant. 3. May have paper cups, plates, finger foods as well as a cardboard spoon with which to eat meals. 4. Follow [facility] Management of the Admitted Behavioral Health Patient policy. 5. Comfort bath system or shower permitted, with RN support. 6. No personal belongings . 7. Visitors limited to family supports if interaction is therapeutic, RN discretion 8. Phone contact limited to [facility] phone; supportive incoming/outgoing calls only, at RN discretion. 9. Due to VOLUNTARY status, if patient wishes to leave [facility], staff will contact [facility] Crisis Screener ([phone]) and On-Call Senior Systems Programmer ([phone]) as soon as possible. In the event of elopement, notify [facility] Police ([phone]). ? If deemed appropriate for inpatient psychiatric care, safety plan will be established with patient, and care team, to adhere to patient goals, identify restrictions based on behavioral status, address nutrition, and determine allowed personal belongings, tools for hygiene and personal care. As well plan will determine level of activity including ambulation, level of supervision, visitors, and determine privileges based on level of acuity, behaviors and level of engagement by patient.
[2025-02-04 11:29] LABS: Ammonia 58 umol/L (11-32)
[2025-02-04] MEDS: Insulin Aspart 300 UNITS/3 ML PEN SC (12:28)
--- NOTE | 2025-02-04 13:29 | PDOC.MHCN ---
Date of service: 02/04/25 Time of Service: 11:48 PHQ-9 Over the last 2 weeks, how often have you been bothered by any of the following problems? 1. Little interest or pleasure in doing things: more than half the days 2. Feeling down, depressed, or hopeless: several days 3. Trouble falling or staying asleep, or sleeping too much: not at all 4. Feeling tired or having little energy: not at all 5. Poor appetite or overeating: not at all 6. Feeling bad about yourself - or that you are a failure or have let yourself and your family down: not at all 7. Trouble concentrating on things, such as reading the newspaper or watching television: not at all 8. Moving or speaking so slowly that other people could have noticed? - Or the opposite - being so fidgety or restless that you have been moving around a lot more than usual: not at all 9. Thoughts that you would be better off or of hurting yourself in some way: not at all Total score: 3 If you checked off any problems, how difficult have these problems made it for you to do your work, take care of things at home, or get along with other people?: not difficult at all Source: Developed by Drs. Sid Carter, Elizabeth Solorio, Joel Arias and colleagues, with an educational babatunde from [employer]. Suicide Severity Rate CSSRS Have you wished you were or wished you could go to sleep and not wake up?: No Have you actually had any thoughts of killing yourself?: No CSSRS2 Have you been thinking about how you might do this?: No Have you had these thoughts and had some intention of acting on them?: No Have you started to work out or worked out the details of how to kill yourself? Do you intend to carry out this plan?: No CSSRS3 Have you ever done anything, started to do anything or prepared to do anything to end your life?: Yes CSSRS4 Was this within the past three months?: Yes Screening Score Total Score: 4 Screening: Positive Mental Health Emergency Note Release [facility] release signed:: No Reason for Visit Ms Samano is a 44 year old single female who resides in an apartment with her cat in [facility]. The client presented as guarded and friendly with poverty of content in her thought process. This client denies intent, plan or ideation and states that she just acted when she was sad and lonely. The client states that she needs human connection and wishes she had more friends. The client states that she does not like using 988 as they do not know her but will outreach to her Sister Luba or Barrera when she feels sad or lonely. The client states her parents can take her to get groceries or go to the doctors but denies that they can take her out to events in the community in order to make more interpersonal interactions occur. The client reports that she The client states that she does have a therapist David at [facility] and agreed to make an appointment with her as part of her safety plan. The client and clinician also discussed making a hope box placed near her medications in order to remind her of what she wants to live for. The client states she does not want in patient treatment as she does not feel that is what she needs right now but did engage in a safety plan with the clinician. In the last 2 weeks has the pt presented for ES prior to today?: No Non Suicidal Self Injury Current: No History: No Safety Risk/Harm to Self or Others Current Ideation to Harm Self or Others: No Risk: Does risk to harm exist?: No Asssessment/Mental Status Appearance: Disheveled Attitude: Guarded and Friendly Behavior: Psychomotor retardation Speech: Soft Affect: Flat Mood: Euthymic Thought process: Poverty of content Hallucinations: No evidence Delusions: No evidence Attention: Unremarkable Perception: Not impaired Orientation: Fully orientated Memory: Intact Insight: Poor Judgement: Poor Neurovegetative Symptoms Sleep: Increase Appetitie: No change Interests: No change Energy: No change Libido: Not applicable Substance Use: Do you use nicotine?: Yes Have you used substances in the last 7 days?: yes, Vape Nicotine Additional Issues: Assaultive/Threatening Behavior: No Medical Concerns: No Client engaged in active self harm w/weapon: No Threatening to run away: No Child reported abuse/neglect: No Voluntarily presenting for services: Yes Domestic violence is a concern: No Extreme Psychosis or extreme behavior is present: No Impression Ms Samano is a 44 year old single female who resides in an apartment with her cat in [facility]. The client presented as guarded and friendly with poverty of content in her thought process. This client denies intent, plan or ideation and states that she just acted when she was sad and lonely. The client states that she needs human connection and wishes she had more friends. The client states that she does not like using 988 as they do not know her but will outreach to her Sister Luba or Barrera when she feels sad or lonely. The client states her parents can take her to get groceries or go to the doctors but denies that they can take her out to events in the community in order to make more interpersonal interactions occur. The client reports that she The client states that she does have a therapist David at [facility] and agreed to make an appointment with her as part of her safety plan. The client and clinician also discussed making a hope box placed near her medications in order to remind her of what she wants to live for. The client states she does not want in patient treatment as she does not feel that is what she needs right now but did engage in a safety plan with the clinician.? Plan/Disposition Recommended Disposition: Therapy (Make an appointment with David from [facility]. ). Plan: Safety planned to the community. Reports/communication Outcome discussed with: ED/Personnel
[2025-02-04 13:37] LABS: Ammonia 35 umol/L (11-32)
--- NOTE | 2025-02-04 15:07 | PHA.REVIEW2 ---
Pharmacy Admission Review Admission Clinical Review Admission Pharmacy Review: Intentional overdose (Acute) Suicidal ideation (Acute) Acute lactic acidosis (Acute) Drug overdose (Acute) codeine Allergy (Mild, Verified 02/04/25 02:10) unknown Resuscitation Status Full Code Height 5 ft 3 in Weight 79.1 kg Pharmacy Admission Review Renal Dosing Renal Dosing: BUN 11 mg/dL (7-18) 02/04/25 05:05 Creatinine 0.5 mg/dL (0.55-1.02) L 02/04/25 05:05 Medications needing adjustments: Reviewed Anticoagulation Anticoagulation: Hgb 13.0 g/dL (11.2-15.7) D 02/04/25 05:05 Hct 37.7 % (36.0-46.0) 02/04/25 05:05 Plt Count 274 10^3/uL (130-400) 02/04/25 05:05 Creatinine 0.5 mg/dL (0.55-1.02) L 02/04/25 05:05 DVT Prophylaxis: Reviewed Medications: Enoxaparin Opiate Usage Evaluate Pain Scale/Pains Meds: N/A Relevant Labs Relevant Labs: Sodium 145 mmol/L (136-145) 02/04/25 05:05 Potassium 3.1 mmol/L (3.5-5.1) L 02/04/25 05:05 Chloride 110 mmol/L (98-107) H 02/04/25 05:05 DM Control DM Control: Reviewed (on sliding scale aspart) Cardiac Review BP, HR, EF%: Reviewed QTc Review QTc: Reviewed List meds needing interventions: [id number] IV to PO Switch IV Medications: Reviewed Home Meds Home Med List reviewed: Reviewed Relevent Home Meds Not ordered & why?: being held due to overdosing on them Current Meds Current Medication Order Review: Reviewed Comments: on levocarnitine for VPA toxicity
--- NOTE | 2025-02-04 15:36 | W.PM.DS.N ---
Date of service: 02/04/25 Time of Service: 15:36 DS: Diagnosis Discharge Diagnosis (1) Intentional overdose: Status: Acute (2) Acute lactic acidosis: Status: Acute (3) Suicidal ideation: Status: Acute (4) Bipolar disorder: Status: Chronic (5) Type 2 diabetes mellitus: (6) Hypothyroidism (acquired): Status: Chronic (7) Schizophrenia: Status: Chronic Discharge Plan Disposition Patient Disposition: Home Condition: Stable Discharge Details Reason For Visit: overdose Admit Date/Time: 02/04/25 00:47 Admit Provider: Samuel Rasmussen Attending Provider: Samuel Rasmussen Primary Care Provider: Antoni Ohara [facility] Course Hospital Course: This is a 44-year-old female who was admitted last night for intentional overdose. Patient was seen by mental health today who cleared her for discharge to home. Our nursing staff reached out to poison control who also cleared her for discharge as her labs were improving. Upon my discussion with the patient she denies any suicidal homicidal ideation denies any audible or visual hallucinations. Patient does appear to be able to make her own decisions. Patient is anxious to be discharged and I will discharge her. In regards to her labs her MCV is mildly elevated this may be worked up in the outpatient setting her potassium was mildly low at 3.1 and I will send over prescription for replacement liver enzymes appear normal. Patient will be discharged in good health. Patient's urine drug screen was negative both opiates and methadone as well as negative for tricyclic antidepressants amphetamines benzos cocaine and THC. EtOH level less than 3. This is a 44-year-old female patient who has her medications packaged in blister packs for the week and day and night packet is presented to the ED via EMS after taking at least 4 to 5 days worth of her medications intentionally because she was depressed and wanted to not be sad though she stated to an earlier ED physician that she wanted to end her life. She initially was somnolent in the ED regarding her airway and able to give history. By the second ED physicians estimation she took at least 0.5 g of Depakote, 150 mg of Topamax and 200 mg of metoprolol with Jardiance 20 mg, fludrocortisone 0.4 mg, levothyroxine 150 mcg, metformin 1500 mg and aripiprazole 40 mg. EMS was triggered by a friend but notes that the patient was acting more sleepy than her normal. The patient would vary her history to the various providers and patient denied taking metformin specifically, though she was progressing with lactic acidosis which would be consistent with her taking a large dose of this medication. She is unreliable. She most likely is suicidal having done this in the past. She needs medical clearance for mental health to discuss possible inpatient treatment for patient's safety. At this point she is voluntary and will be admitted to the ICU for close monitoring with her various overdoses needing close monitoring of her lactic acidosis with IV hydration for clearance, potassium repletion will be done orally, monitoring ammonia level with her Depakote overdose with Depakote levels. She also was given oral levocarnitine with 100 mg kilogram loading dose advised and then 15 mg dosing every 4 hours to decrease absorption of Depakote. We have only the oral dose and a lower dose to be given for loading with attempting a close dosing of the every 4 hours recommendations. Most of her care is simply supportive but needs close monitoring in the ICU. She is a full code. 1) Intentional overdose: Start date: 02/04/25 Status: Acute Assessment and plan: This is a 44-year-old lady who has had previous suicidal attempts who presents to the ED after EMS system was prompted by a friend because of the patient appearing drowsy. She admits to taking several days of all of her day and nighttime medications as the worst case scenario and selectively taking that many days of her medications as the best case scenario. She does appear to have really taken the metformin and Depakote with Depakote level rising but now trending downward and her lactic acidosis rising but now trending downward with IV hydration. She continues to be somnolent. She is on suicide watch. Mental health has been consulted and they will evaluate the patient for possible inpatient treatment once she is medically cleared. Presently she is ICU level care with her close monitoring and frequent labs as well as her unknown amount of overdose in which pills. She is on IV hydration and levocarnitine treating at least the Depakote and metformin overdose. Cardiac monitoring will continue. She is a full code. (2) Acute lactic acidosis: Start date: 02/04/25 Status: Acute Assessment and plan: IV hydration with normal saline and trend labs every 4 hours. Patient appears to be responding to IV hydration and supportive care. (3) Suicidal ideation: Start date: 02/04/25 Status: Acute Assessment and plan: Patient has schizophrenia and bipolar disorder with suicide attempt in the past by overdosing. They are hopeful stated patient will possible inpatient treatment once she is medically cleared. She appeared to have poor control of her psychiatric disease. (4) Bipolar disorder: Status: Chronic Assessment and plan: On multiple medications and poorly controlled. (5) Type 2 diabetes mellitus: Assessment and plan: Holding metformin the patient having, measurements before meals and bedtime and sensitive sliding scale coverage if needed. She continues IV hydration at a high rate (6) Hypothyroidism (acquired): Status: Chronic Assessment and plan: On levothyroxine which may have been overdose as well but is inconsequential. (7) Schizophrenia: Status: Chronic Assessment and plan: On medical therapy with poor control. Mental health to address. Home Meds and New Rx's Prescriptions: Continued turmeric root extract 500 mg tablet 1,000 mg PO BID PRN (Reason: Joint stiffness/soreness) naproxen 500 mg tablet 500 mg PO BID naproxen 500 mg tablet 500 mg PO BID PRN (Reason: pain) Qty: 180 3RF Ozempic 0.25 mg or 0.5 mg (2 mg/3 mL) pen injector 0.25 mg subcut QWEEK Qty: 3 0RF Rx Instructions: for 4 weeks metformin 750 mg tablet extended release 24 hr 750 mg PO BID Qty: 60 3RF Rx Instructions: Take with food levothyroxine 75 mcg tablet See Rx Instructions .ROUTE .COMPLEX Qty: 90 3RF Dose Instruction: TAKE 1 TABLET BY MOUTH DAILY Rx Instructions: TAKE 1 TABLET BY MOUTH DAILY metoprolol tartrate 50 mg tablet 50 mg PO BID Qty: 90 3RF fludrocortisone 0.1 mg tablet 0.2 mg PO DAILY Qty: 90 3RF Rx Instructions: Reported by [facility] 02/23/2024 Jardiance 10 mg tablet 10 mg PO DAILY Qty: 30 3RF aripiprazole 20 mg tablet 20 mg PO DAILY Qty: 90 3RF divalproex 500 mg tablet,delayed release (DR/EC) 1,000 mg PO BID Qty: 360 3RF topiramate [Topamax] 50 mg tablet 50 mg PO DAILY No Action (DME) blood-glucose meter [FreeStyle Lite Meter] Kit See Rx Instructions .Route Qty: 1 0RF Rx Instructions: Check blood sugars daily. E11.9.Keep A1c below 7 (DME) FreeStyle Lite Strips Strip See Rx Instructions .Route Qty: 100 3RF Rx Instructions: Check blood sugars daily. DX: E11.9. Keep A1c below 7 (DME) lancets [Lancets,Ultra Thin] Misc See Rx Instructions .Route Qty: 100 3RF Rx Instructions: Check blood sugars daily. DX: E11.9.Keep A1c below 7. Discharge Instructions Referrals: Antoni Ohara DO [Primary Care Provider] - (follow up with PCP in 5-7 days) Activity:: Activity as Tolerated Equipment/Supplies:: No Equipment Needed Diet:: As Tolerated Discharge Orders Discharge Orders: Discharge Order (Routine); Ordered 02/04/25 Ordered By: Sid Lee DS: Summary Time Spent with Patient providing and/or coordinating discharge services: Less than 30 minutes Status at Discharge Functional status at discharge: independent ambulation Overall status at discharge: patient is back to baseline Mental Status: mental status grossly normal Speech and Movement: speech and movement normal Mood: congruent mood Affect: normal affect Quality:SDOH Health Related Social Needs: Health related social needs housing instability, housed, with risk of homelessness (Z59.811), problems with daily activities (Z73.9), feeling lonely/isolated (Z60.8) Health related social needs details states she has no problems with housing, heating or food. her does problems with depression and mental health Health related social needs details: states she has no problems with housing, heating or food. her does problems with depression and mental health Exam Narrative Exam Narrative: NCAT MMM EOMI PERRLA NO RESPIRATORY DISTRESS CN 2-12 INTACT TESTED NO ACUTE DISTRESS Psych Mental Status: mental status grossly normal Speech and Movement: speech and movement normal Mood: congruent mood Affect: normal affect DS: Data Vitals/I&O Vitals and I&O: Vital Signs Temperature 36.5 C 02/04/25 10:49 Temperature Source Temporal Artery Scan 02/04/25 10:49 Pulse 68 02/04/25 13:01 Pulse 80 02/04/25 13:01 Respiratory Rate 17 02/04/25 13:01 Respiratory Effort Normal 02/04/25 02:15 Respiratory Depth Normal 02/04/25 02:15 Respiratory Pattern Normal 02/04/25 02:15 Blood Pressure 100/73 02/04/25 13:01 Blood Pressure Mean 82 02/04/25 13:01 Blood Pressure Position Supine 02/04/25 02:15 Pulse Oximetry 95 02/04/25 13:01 Oxygen Delivery Method Room Air 02/04/25 02:15 Oxygen Flow Rate 0 02/04/25 02:15 Pain Level 0 02/04/25 02:15 Comment Taken by prior shift 02/04/25 06:30 Intake & Output 02/03/25 02/04/25 02/04/25 23:59 11:59 23:59 Intake Total 1500 / 1500 2575 / 2935 360 / 2935 Output Total 1875 / 2235 360 / 2235 Balance 1500 / 1500 700 / 700 0 / 700 Weight 80.558 kg 79.1 kg Intake: IV 1500 / 1500 1950 / 1950 Oral 625 / 985 360 / 985 Output: Urine 1875 / 2235 360 / 2235 Other: Urine Color Yellow Yellow Urine Appearance Clear Clear Urine Odor None Comment patient refusing landis in the emergency room Stool Size Moderate Stool Characteristics Soft Formed Brown Data Completed and Pending Labs on day of discharge: Labs from last 24 hours 02/04/25 02/04/25 02/04/25 22:51 20:51 18:51 WBC RBC Hgb Hct MCV MCH MCHC RDW Plt Count MPV Immature Gran % Neutrophils % Lymphocytes % Monocytes % Eosinophils % Basophils % Nucleated RBC % Absolute Neutrophils Absolute Lymphocytes Absolute Monocytes Absolute Eosinophils Absolute Basophils VBG pH VBG pCO2 VBG pO2 VBG HCO3 VBG Total CO2 VBG O2 Saturation VBG Base Excess VBG Lactate Sodium Potassium Chloride Carbon Dioxide Anion Gap BUN Creatinine Est GFR (CKD-EPI 2020) Glucose Calcium Total Bilirubin AST ALT Alkaline Phosphatase Ammonia Pending Pending Pending Total Protein Albumin TSH Urine Color Urine Clarity Urine pH Ur Specific [place] Urine Protein Urine Ketones Urine Blood Urine Nitrite Urine Bilirubin Urine Urobilinogen Ur Leukocyte Esterase Urine Glucose Salicylates Urine Opiates Screen Urine Methadone Screen Acetaminophen Ur Barbiturates Screen Valproic Acid Ur Tricyclics Screen Ur Amphetamines Screen U Benzodiazepines Scrn Urine Cocaine Screen Ur THC Screen Ethyl Alcohol COVID-19 Source SARS-CoV-2 (PCR) Influenza Type A (PCR) Influenza Type B (PCR) RSV (PCR) 02/04/25 02/04/25 02/04/25 16:51 13:05 11:00 WBC RBC Hgb Hct MCV MCH MCHC RDW Plt Count MPV Immature Gran % Neutrophils % Lymphocytes % Monocytes % Eosinophils % Basophils % Nucleated RBC % Absolute Neutrophils Absolute Lymphocytes Absolute Monocytes Absolute Eosinophils Absolute Basophils VBG pH VBG pCO2 VBG pO2 VBG HCO3 VBG Total CO2 VBG O2 Saturation VBG Base Excess VBG Lactate Sodium Potassium Chloride Carbon Dioxide Anion Gap BUN Creatinine Est GFR (CKD-EPI 2020) Glucose Calcium Total Bilirubin AST ALT Alkaline Phosphatase Ammonia Pending 35 H 58 H Total Protein Albumin TSH Urine Color Urine Clarity Urine pH Ur Specific [place] Urine Protein Urine Ketones Urine Blood Urine Nitrite Urine Bilirubin Urine Urobilinogen Ur Leukocyte Esterase Urine Glucose Salicylates Urine Opiates Screen Urine Methadone Screen Acetaminophen Ur Barbiturates Screen Valproic Acid Ur Tricyclics Screen Ur Amphetamines Screen U Benzodiazepines Scrn Urine Cocaine Screen Ur THC Screen Ethyl Alcohol COVID-19 Source SARS-CoV-2 (PCR) Influenza Type A (PCR) Influenza Type B (PCR) RSV (PCR) 02/04/25 02/04/25 02/04/25 09:07 07:14 05:20 WBC RBC Hgb Hct MCV MCH MCHC RDW Plt Count MPV Immature Gran % Neutrophils % Lymphocytes % Monocytes % Eosinophils % Basophils % Nucleated RBC % Absolute Neutrophils Absolute Lymphocytes Absolute Monocytes Absolute Eosinophils Absolute Basophils VBG pH VBG pCO2 VBG pO2 VBG HCO3 VBG Total CO2 VBG O2 Saturation VBG Base Excess VBG Lactate 0.8 Sodium Potassium Chloride Carbon Dioxide Anion Gap BUN Creatinine Est GFR (CKD-EPI 2020) Glucose Calcium Total Bilirubin AST ALT Alkaline Phosphatase Ammonia 53 H 23 Pending Total Protein Albumin TSH Urine Color Urine Clarity Urine pH Ur Specific [place] Urine Protein Urine Ketones Urine Blood Urine Nitrite Urine Bilirubin Urine Urobilinogen Ur Leukocyte Esterase Urine Glucose Salicylates < 2.8 Urine Opiates Screen Urine Methadone Screen Acetaminophen 3 Ur Barbiturates Screen Valproic Acid 112.3 Ur Tricyclics Screen Ur Amphetamines Screen U Benzodiazepines Scrn Urine Cocaine Screen Ur THC Screen Ethyl Alcohol COVID-19 Source SARS-CoV-2 (PCR) Influenza Type A (PCR) Influenza Type B (PCR) RSV (PCR) 02/04/25 02/04/25 02/04/25 05:05 03:15 02:05 WBC 8.00 RBC 3.91 L Hgb 13.0 D Hct 37.7 MCV 96 H MCH 33.2 H MCHC 34.5 RDW 12.5 Plt Count 274 MPV 9.2 Immature Gran % Neutrophils % Lymphocytes % Monocytes % Eosinophils % Basophils % Nucleated RBC % Absolute Neutrophils Absolute Lymphocytes Absolute Monocytes Absolute Eosinophils Absolute Basophils VBG pH VBG pCO2 VBG pO2 VBG HCO3 VBG Total CO2 VBG O2 Saturation VBG Base Excess VBG Lactate 1.0 1.7 2.1 Sodium 145 Potassium 3.1 L Chloride 110 H Carbon Dioxide 24.0 Anion Gap 11.0 BUN 11 Creatinine 0.5 L Est GFR (CKD-EPI 2020) 118.53 Glucose 122 H Calcium 7.7 L Total Bilirubin 0.3 AST 12 L ALT 16 Alkaline Phosphatase 82 Ammonia 28 31 Total Protein 6.0 L Albumin 2.8 L TSH Urine Color Urine Clarity Urine pH Ur Specific [place] Urine Protein Urine Ketones Urine Blood Urine Nitrite Urine Bilirubin Urine Urobilinogen Ur Leukocyte Esterase Urine Glucose Salicylates < 2.8 Urine Opiates Screen Urine Methadone Screen Acetaminophen < 2 Ur Barbiturates Screen Valproic Acid 179.7 H* Ur Tricyclics Screen Ur Amphetamines Screen U Benzodiazepines Scrn Urine Cocaine Screen Ur THC Screen Ethyl Alcohol COVID-19 Source SARS-CoV-2 (PCR) Influenza Type A (PCR) Influenza Type B (PCR) RSV (PCR) 02/04/25 02/04/25 02/03/25 01:02 00:00 22:08 WBC RBC Hgb Hct MCV MCH MCHC RDW Plt Count MPV Immature Gran % Neutrophils % Lymphocytes % Monocytes % Eosinophils % Basophils % Nucleated RBC % Absolute Neutrophils Absolute Lymphocytes Absolute Monocytes Absolute Eosinophils Absolute Basophils VBG pH VBG pCO2 VBG pO2 VBG HCO3 VBG Total CO2 VBG O2 Saturation VBG Base Excess VBG Lactate 2.8 H* 2.1 Sodium 146 H Potassium 3.4 L Chloride 109 H Carbon Dioxide 23.9 Anion Gap 13.1 H BUN 12 Creatinine 0.7 Est GFR (CKD-EPI 2020) 109.30 Glucose 154 H Calcium 8.1 L Total Bilirubin 0.2 AST 10 L ALT 18 Alkaline Phosphatase 112 Ammonia 29 Total Protein 6.6 Albumin 3.1 L TSH Urine Color Urine Clarity Urine pH Ur Specific [place] Urine Protein Urine Ketones Urine Blood Urine Nitrite Urine Bilirubin Urine Urobilinogen Ur Leukocyte Esterase Urine Glucose Salicylates < 2.8 Urine Opiates Screen Urine Methadone Screen Acetaminophen < 2 Ur Barbiturates Screen Valproic Acid 262.2 H* Ur Tricyclics Screen Ur Amphetamines Screen U Benzodiazepines Scrn Urine Cocaine Screen Ur THC Screen Ethyl Alcohol COVID-19 Source SARS-CoV-2 (PCR) Influenza Type A (PCR) Influenza Type B (PCR) RSV (PCR) 02/03/25 02/03/25 02/03/25 21:00 20:11 20:08 WBC RBC Hgb Hct MCV MCH MCHC RDW Plt Count MPV Immature Gran % Neutrophils % Lymphocytes % Monocytes % Eosinophils % Basophils % Nucleated RBC % Absolute Neutrophils Absolute Lymphocytes Absolute Monocytes Absolute Eosinophils Absolute Basophils VBG pH 7.38 VBG pCO2 37 L VBG pO2 55 VBG HCO3 22 L VBG Total CO2 19 L VBG O2 Saturation 90 VBG Base Excess -3 L VBG Lactate 1.5 Cancelled Sodium Potassium Chloride Carbon Dioxide Anion Gap BUN Creatinine Est GFR (CKD-EPI 2020) Glucose Calcium Total Bilirubin AST ALT Alkaline Phosphatase Ammonia 15 Total Protein Albumin TSH Urine Color Urine Clarity Urine pH Ur Specific [place] Urine Protein Urine Ketones Urine Blood Urine Nitrite Urine Bilirubin Urine Urobilinogen Ur Leukocyte Esterase Urine Glucose Salicylates Urine Opiates Screen Urine Methadone Screen Acetaminophen Ur Barbiturates Screen Valproic Acid Ur Tricyclics Screen Ur Amphetamines Screen U Benzodiazepines Scrn Urine Cocaine Screen Ur THC Screen Ethyl Alcohol COVID-19 Source SARS-CoV-2 (PCR) Influenza Type A (PCR) Influenza Type B (PCR) RSV (PCR) 02/03/25 02/03/25 02/03/25 20:07 19:57 19:51 WBC 8.93 RBC 4.57 Hgb 15.1 Hct 43.5 MCV 95 MCH 33.0 MCHC 34.7 RDW 12.2 Plt Count 319 MPV 9.2 Immature Gran % 1.1 Neutrophils % 56.6 Lymphocytes % 31.4 Monocytes % 6.5 Eosinophils % 3.8 Basophils % 0.6 Nucleated RBC % 0.0 Absolute Neutrophils 5.06 Absolute Lymphocytes 2.80 Absolute Monocytes 0.58 Absolute Eosinophils 0.34 Absolute Basophils 0.05 VBG pH VBG pCO2 VBG pO2 VBG HCO3 VBG Total CO2 VBG O2 Saturation VBG Base Excess VBG Lactate Sodium 138 Potassium 3.5 Chloride 100 Carbon Dioxide 24.6 Anion Gap 13.4 H BUN 15 Creatinine 0.6 Est GFR (CKD-EPI 2020) 113.44 Glucose 201 H Calcium 8.9 Total Bilirubin 0.3 AST 14 L ALT 22 Alkaline Phosphatase 171 H Ammonia Total Protein 7.6 Albumin 3.6 TSH 1.52 Urine Color Yellow Urine Clarity Clear Urine pH 7.5 Ur Specific [place] 1.015 Urine Protein Negative Urine Ketones 15 H Urine Blood Negative Urine Nitrite Negative Urine Bilirubin Negative Urine Urobilinogen 0.2 Ur Leukocyte Esterase Negative Urine Glucose 500 H Salicylates < 2.8 Urine Opiates Screen Negative Urine Methadone Screen Negative Acetaminophen < 2 Ur Barbiturates Screen Negative Valproic Acid 63.1 Ur Tricyclics Screen Negative Ur Amphetamines Screen Negative U Benzodiazepines Scrn Negative Urine Cocaine Screen Negative Ur THC Screen Negative Ethyl Alcohol < 3.0 COVID-19 Source Cancelled SARS-CoV-2 (PCR) Cancelled Influenza Type A (PCR) Cancelled Influenza Type B (PCR) Cancelled RSV (PCR) Cancelled [facility] All Active Problems (Updated 02/04/25 @ 02:19 by Samuel Rasmussen) Intentional overdose (Acute) Suicidal ideation (Acute) Hypothyroidism (acquired) (Chronic) Overdose (Acute) Metformin overdose (Acute) Acute lactic acidosis (Acute) Depression (Chronic) Cataracts, bilateral (Acute) Hypersomnolence (Acute) Increased ammonia level (Acute) Accidental overdose of valproate sodium (Acute) Adverse effect of beta-karina (Acute) Accidental metformin overdose (Acute) Drug overdose (Acute) Joint stiffness (Acute) Bipolar disorder (Chronic) Right hip pain (Acute) Fullness in ear (Acute) sensation of needing ear canals final cleaner (but usually clear) defect (Acute) Low back pain (Acute) Shoulder pain (Acute) Macrocytic anemia (Acute) Hypoalbuminemia due to protein-calorie malnutrition (Acute) 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 Diabetes mellitus type II, controlled (Acute) POTS (postural orthostatic tachycardia syndrome) (Acute) Plantar warts (Acute) Fatigue (Acute) Pelvic pain (Acute) Orthostatic hypotension (Acute) Chronic diarrhea (Acute) Nonalcoholic steatohepatitis (Acute) Hypothyroid (Chronic) Hirsutism (Acute) Dysfunctional uterine bleeding (Acute) Oligomenorrhea (Acute) Schizophrenia (Chronic) Medical History Uterine mass Non compliance w medication regimen Yeast dermatitis RLS (restless legs syndrome) H/O suicide attempt Schizoaffective disorder Deviated nasal septum Trigeminal neuralgia of left side of face (01/03/18) Type 2 diabetes mellitus History of hypothyroidism Drug overdose, intentional Surgical History S/p breast implant removal Sep 2019 S/P breast implant, left H/O pilonidal cyst S/P foot surgery Ligation of fallopian tube Family History Mother Diabetes Father Heart disease Social History Smoking/Tobacco Use Status: Current every day Tobacco Type: e-cigarettes Quit status: considering quitting Smoking risk assessment performed?: Yes Alcohol Intake: never Drug use: Current Sobriety Substance use type: does not use Adopted: No Caregiver/Support person: No Foster care: No Household members: none Housing: apartment Number of Children: 2 number of grandchildren: 0 Education Level: college Details: Some classes - no degree Do you need help understanding health information?: Never current occupation: Disabled Pets and animals: No (1) Sexually active: No Do you think of yourself as: straight/heterosexual Current gender identity: female What is your relationship status?: How often do you talk on the phone with friends or family?: once per week How often do you get together with friends or relatives?: never Do you belong to any clubs or organized social groups?: no Panel score (0-1 are the most socially isolated patients): 0 What type of physical activity do you participate in: walking Duration: 15-30 minutes/day Frequency: daily Lauren/Nondenominational: Nondenominational Special lauren needs: No Seatbelt use: always Helmet use: Yes Drive intox or ride w/intox 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 Date GA/Weeks # Preg Succ Route Wgt Sex Labor Lgth Anesthesia Location Prov Complic 08/30/01 40 No Yes vaginal Female 03/25/02 40 No Yes vaginal Male Delivery Date: 08/30/01 [facility]: 03/25/02 Last Updated by: [facility] Time Spent with Patient Time Spent with Patient: <45 minutes Time was spent: preparing to see the patient(eg.review tests), obtaining and/or reviewing separately otained hiistory, ordering medications,tests, procedures, referring, communicating with other health manager intensive care, indepentently interpreting results, counseling the patient and care coordination
[2025-02-04 15:46] LABS: Ammonia 53 umol/L (11-32)
--- NOTE | 2025-02-04 18:53 | PDOC.CMDIS ---
Date of service: 02/04/25 Time of Service: 18:53 LACE Index Scoring Tool Questions: Length of Stay (in days): 2 Was the patient admitted via the E.D.?: Yes E.D. Visits: 3 Answers: Total Score: 8 Risk of Readmission: Low Risk Care Management Discharge Plan Reason for Hospitalization: Overdose Discharge Plan: Shaneka discharged home via private vehicle with family. PT will follow up with her community providers as discharge plan of care as discussed. No new services were ordered prior to discharge, pt is asked to follow up with [facility] on Tuesday and contact behavioral health specialist at [facility] . Patient/Family Education Needs: Review discharge instructions, discuss Ask Me Three SDOH Health Related Social Needs: Health related social needs housing instability, housed, with risk of homelessness (Z59.811), problems with daily activities (Z73.9), feeling lonely/isolated (Z60.8) Health related social needs details states she has no problems with housing, heating or food. her does problems with depression and mental health Health related social needs details: states she has no problems with housing, heating or food. her does problems with depression and mental health
== END 2025-02-04 16:00 | disposition home or self-care (01) | DRG 918 ==
LOC: ER 02-04 02:13 → ICU 02-04 02:27
PROVIDERS: Nurse Practitioner Family; Admitting Provider Family Medicine; Emergency Provider Student in an Organized Health Care Education/Training Program; PCP Family Medicine; Visit Provider Family Medicine
DX: T42.6X2A Poisoning by other antiepileptic and sedative-hypnotic drugs, intentional self-harm, initial encounter (principal); F31.63 Bipolar disorder, current episode mixed, severe, without psychotic features; R45.851 Suicidal ideations; E87.21 Acute metabolic acidosis; Z59.811 Housing instability, housed, with risk of homelessness; E03.9 Hypothyroidism, unspecified; F20.9 Schizophrenia, unspecified; Z91.51 Personal history of suicidal behavior; F31.9 Bipolar disorder, unspecified; T38.3X2A Poisoning by insulin and oral hypoglycemic [antidiabetic] drugs, intentional self-harm, initial encounter; R40.0 Somnolence; K75.81 Nonalcoholic steatohepatitis (NASH); E11.9 Type 2 diabetes mellitus without complications; F17.290 Nicotine dependence, other tobacco product, uncomplicated; Z79.85 Long-term (current) use of injectable non-insulin antidiabetic drugs; Z79.84 Long term (current) use of oral hypoglycemic drugs; Z60.8 Other problems related to social environment
CPT/HCPCS: 00123; 36415; 80053; 80307; 82805; 85027; 87637; 93005; 96127; 96361; 96374; 99291; J1650; 80164; 80320; 80329; 81003; 82140; 83605; 84443; 85025; 93010; 99236; J1815; J2405; J3480

== ENCOUNTER 2025-02-13 02:18 | Outpatient (CLI) | payer MEDICAID, SELFPAY ==
--- NOTE | 2025-02-13 12:10 | DI.RAD_ITS ---
Exam(s) XR SHOULDER LT COMPLETE 2+V EXAM: XR SHOULDER LT COMPLETE 2+V CLINICAL HISTORY: Pain and loss of ROM,M25.512. TECHNIQUE: 2D digital imaging was performed of the left shoulder. Five images were obtained. AP, G rashey, Y-view and axillary views were obtained. COMPARISON: CR XR SHOULDER LT COMPLETE 2+V from 12/13/2023 FINDINGS: BONES: No acute fracture is present. No bony destructive lesion is seen. JOINTS: No dislocation present. The glenohumeral and acromioclavicular joints are well maintained. SOFT TISSUE: There are soft tissue calcifications again seen adjacent to the greater tuberosity sugge stive of calcific tendinitis. IMPRESSION: Calcific tendinitis. DATA REPOSITORY: RADIATION DOSE DELIVERED:
== END 2025-02-13 02:38 ==
LOC: DI 02:18
PROVIDERS: PCP Family Medicine; Visit Provider Family Medicine
DX: M25.512 Pain in left shoulder (principal)
CPT/HCPCS: 73030

== ENCOUNTER 2025-03-01 09:02 | Day surgery (SDC) | payer MEDICAID, SELFPAY ==
--- NOTE | 2025-03-01 06:40 | W.ANESPRE ---
General Info Date of Service Date Performed: 03/01/25 Height: 5 ft 3 in Weight: 78.471 kg Body Mass Index (BMI): 30.6 Surgical Procedure: Operation Date: 03/01/25 10:40 Proposed Procedure Side Surgeon p Cataract Extraction with IOL Implant Left Los Greer MD Meds Allergies and Home Medications Allergies Allergy/AdvReac Type Severity Reaction Status Date / Time codeine Allergy Mild unknown Verified 03/01/25 09:24 Home Medication ?Medication ?Instructions ?Recorded levothyroxine 75 mcg tablet See Rx Instructions .Route 06/05/24 .COMPLEX #90 tabs blood sugar diagnostic (FreeStyle #100 ea 08/09/24 Lite Strips) blood-glucose meter (FreeStyle #1 ea 08/09/24 Lite Meter kit) lancets (Lancets,Ultra Thin) #100 ea 08/09/24 topiramate 50 mg tablet (Topamax) 50 mg PO DAILY 10/17/24 naproxen 500 mg tablet 500 mg PO BID PRN pain #180 tabs 11/27/24 metformin 750 mg tablet,extended 750 mg PO BID #60 tabs 12/12/24 release 24 hr aripiprazole 20 mg tablet 20 mg PO DAILY #90 tabs 01/17/25 divalproex 500 mg tablet,delayed 1,000 mg (2 x 500 mg) PO BID #360 01/17/25 release tabs empagliflozin 10 mg tablet 10 mg PO DAILY #30 tabs 02/25/25 (Jardiance) Current Visit Medications: Current Medications Generic Name Dose Route Start Last Admin Trade Name Freq PRN Reason Stop Dose Admin Acetaminophen 1,000 mg 03/01/25 06:00 Acetaminophen 500 Mg Tab PO 03/31/25 05:59 Q4H PRN PRN Balanced Salt Solution 500 ml 03/01/25 06:00 Balanced Salt Soln.-Plus 500 Ml Bag OP 03/31/25 05:59 DIRECTED EDWIGE Miscellaneous Medication 0 ml 03/01/25 06:00 Prednisolone 1%, Moxifloxacin 0.5%, Bromfenac 0.09% 5.6ml Btl OS 03/31/25 05:59 DIRECTED EDWIGE Miscellaneous Medication 0 ml 03/01/25 06:00 Tropicam./Phenyleph. (1/2.5%) 5 Ml Btl OS 03/31/25 05:59 DIRECTED [facility] Tetracaine HCl 0 ml 03/01/25 06:00 Tetracaine 0.5% 4 Ml Btl OS 03/31/25 05:59 DIRECTED [facility] Active Problems Active Problems: Problem Status Onset Code Cortical age-related cataract, left eye Acute H25.012 Nuclear age-related cataract, left eye Acute H25.12 Calcific tendinitis of left shoulder Acute M75.32 Shoulder pain, left Acute M25.512 Hypothyroidism (acquired) Chronic E03.9 Overdose Acute T50.901A Metformin overdose Acute T38.3X1A Depression Chronic F32.A Cataracts, bilateral Acute H26.9 Hypersomnolence Acute G47.10 Increased ammonia level Acute R79.89 Accidental overdose of valproate sodium Acute T42.6X1A Adverse effect of beta-karina Acute T44.7X5A Accidental metformin overdose Acute T38.3X1A Joint stiffness Acute M25.60 Bipolar disorder Chronic F31.9 Right hip pain Acute M25.551 Fullness in ear Acute H93.8X9 defect Acute Q89.9 Low back pain Acute M54.50 Shoulder pain Acute M25.519 Macrocytic anemia Acute D53.9 Hypoalbuminemia due to protein-calorie malnutrition Acute E88.09, E46 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 Acute E11.51, I70.209 Diabetes mellitus type II, controlled Acute E11.9 POTS (postural orthostatic tachycardia syndrome) Acute G90.A Plantar warts Acute B07.0 Fatigue Acute R53.83 Pelvic pain Acute R10.2 Orthostatic hypotension Acute I95.1 Chronic diarrhea Acute K52.9 Nonalcoholic steatohepatitis Acute K75.81 Hypothyroid Chronic E03.9 Hirsutism Acute L68.0 Dysfunctional uterine bleeding Acute N93.8 Oligomenorrhea Acute N91.5 Schizophrenia Chronic F20.9 Medical History Medical History (Updated 02/28/25 @ 18:45 by Los Greer MD) Uterine mass Non compliance w medication regimen Yeast dermatitis RLS (restless legs syndrome) H/O suicide attempt At time of assessment: Pt. states she does not have any thoughts of harming herself or others. Schizoaffective disorder Deviated nasal septum Trigeminal neuralgia of left side of face (01/03/18) Type 2 diabetes mellitus History of hypothyroidism Drug overdose, intentional Surgical History Surgical History S/p breast implant removal Sep 2019 S/P breast implant, left H/O pilonidal cyst S/P foot surgery Ligation of fallopian tube Tobacco Smoking/Tobacco Use Status: Current every day Tobacco Type: e-cigarettes Passive smoking exposure: No Alcohol Alcohol Intake: never Substance Use Substance use: Current Sobriety Substance use type: does not use Prental History History 2 Para 2 Hx # Term Pregnancies Multiple births Hx # Pregnancies Ectopic pregnancies AB induced Hx Number of Living Children AB spontaneous Past Pregnancies Del. Date GA/Weeks # Preg Succ Route Wgt Sex Labor Lgth Anesthesia Location Prov Complic 08/30/01 40 No Yes vaginal Female 03/25/02 40 No Yes vaginal Male Delivery Date: 08/30/01 [facility]: [facility]02 Last Updated by: [facility] Vital Signs and Lab Results Vital Signs Most Recent Vital Signs in EMR: Temp Pulse Resp BP Pulse Ox 36.3 C L 93 H 18 118/77 98 03/01/25 09:27 03/01/25 09:27 03/01/25 09:27 03/01/25 09:27 03/01/25 09:27 Lab Results Complete Blood Count: WBC, (4.4-10.8) 8.00 10^3/uL 02/04/25, 05:05 RBC, (3.93-5.22) 3.91 10^6/uL L 02/04/25, 05:05 Hgb, (11.2-15.7) 13.0 g/dL Δ 02/04/25, 05:05 Hct, (36.0-46.0) 37.7 % 02/04/25, 05:05 Plt Count, (130-400) 274 10^3/uL 02/04/25, 05:05 VBG Lactate, (<or=2.0) 0.8 mmol/L 02/04/25, 07:14 Complete Metabolic Panel: Sodium, (136-145) 145 mmol/L 02/04/25, 05:05 Potassium, (3.5-5.1) 3.1 mmol/L L 02/04/25, 05:05 Chloride, (98-107) 110 mmol/L H 02/04/25, 05:05 Carbon Dioxide, (21.0-32.0) 24.0 mmol/L 02/04/25, 05:05 BUN, (7-18) 11 mg/dL 02/04/25, 05:05 Creatinine, (0.55-1.02) 0.5 mg/dL L 02/04/25, 05:05 Est GFR (CKD-EPI 2020), (mL/min/1.73m2) 118.53 02/04/25, 05:05 Calcium, (8.5-10.1) 7.7 mg/dL L 02/04/25, 05:05 Albumin, (3.4-5.0) 2.8 g/dL L 02/04/25, 05:05 Glucose, (74-106) 122 mg/dL H 02/04/25, 05:05 Hemoglobin A1c, (4.5-5.7) 7.4 % H 02/19/25, 13:34 Liver Function Panel: ALT, (14-59) 16 U/L 02/04/25, 05:05 AST, (15-37) 12 U/L L 02/04/25, 05:05 Venous Blood Gas: VBG pH, (7.31-7.41) 7.38 02/03/25, 20:11 VBG pO2 55 mmHg 02/03/25, 20:11 VBG pCO2, (41-51) 37 mmHg L 02/03/25, 20:11 VBG O2 Saturation 90 % 02/03/25, 20:11 VBG HCO3, (23-28) 22 mmol/L L 02/03/25, 20:11 VBG Base Excess, (-2-3) -3 mmol/L L 02/03/25, 20:11 VBG Total CO2, (24-29) 19 mmol/L L 02/03/25, 20:11 Thyroid Panel: TSH, (0.36-3.74) 1.52 uIU/mL 02/03/25, 19:51 Toxicology Panel: Ethyl Alcohol, (<10) < 3.0 mg/dL 02/03/25, 19:51 Ur Amphetamines Screen, (Negative) Negative 02/03/25, 20:07 U Benzodiazepines Scrn, (Negative) Negative 02/03/25, 20:07 Ur Barbiturates Screen, (Negative) Negative 02/03/25, 20:07 Urine Cocaine Screen, (Negative) Negative 02/03/25, 20:07 Urine Methadone Screen, (Negative) Negative 02/03/25, 20:07 Urine Opiates Screen, (Negative) Negative 02/03/25, 20:07 Ur Tricyclics Screen, (Negative) Negative 02/03/25, 20:07 Ur THC Screen, (Negative) Negative 02/03/25, 20:07 Anesthesia Assessment and Plan Anesthesia History Personal History: No History of Anesthesia Complications Family History: No Family History of Anesthesia Complications Exercise Tolerance Exercise Tolerance: Metabolic Equivalents>4 Cardiac & Pulmonary Exam Cardiac Exam: Normal S1/S2 Heart Sounds Pulmonary Exam: Clear Bilateral Breath Sounds Implantable Cardiac Device Does patient have a Pacemaker or an ICD?: No Airway Exam Known Difficult Airway: No Mallampati Class: 4 Mouth Opening: Narrow (< 3cm) Thyromental Distance: Less than 3 cm Neck Range of Motion: Limited ROM Neck Circumference: Normal Teeth Condition: Normal Dentition ASA Classification ASA Score: ASA 2 Emergency Case?: No NPO Status NPO Status: NPO Clears >2 hours, Solids >8 hours Status Status: Not Per Patient (unable to void. Hasn't had sex in a year, and has a tubal. ) Anesthesia Plan Resuscitation Status: Full Code Anesthesia Technique: MAC Anesthesia Airway Planned: Natural Airway Monitors Used: Standard Monitors Preoperative Comments:: 44 yo female for cataract removal. Sig PMHx: hypothyroid (levothyroxine), DM2 (metformin, jardiance), POTS, schizophrenia, RLS, smoker. ECHO: LVEF 55%, no sig valve issues. ECG: sinus. Carotid: no sig stenosis.
[2025-03-01 09:27] VITALS: BP 118/77; PULSE 93; RESP 18; TEMP 36.3; O2SAT 98
[2025-03-01] MEDS: Tropicam./Phenyleph. (1/2.5%) 5 ML BTL OS ×3 (09:32→09:43)
[2025-03-01 10:01] VITALS: BMI 30.6
[2025-03-01] MEDS: Povidone-Iodine Ophth 30 ML BTL (11:10)
[2025-03-01] MEDS: Tetracaine 0.5% 4 ML BTL OS (11:10)
[2025-03-01] MEDS: Duovisc Viscoelastic System EACH 1 EACH (11:16)
[2025-03-01] MEDS: Lidocaine 1% Pres-Free 5 ML VIAL (11:16)
[2025-03-01] MEDS: Phenylephrine/Lidocaine (15/10) MG/ML 1 ML VIAL (11:17)
[2025-03-01] MEDS: Balanced Salt Soln.-PLUS 500 ML BAG OP (11:18)
[2025-03-01] MEDS: Trypan Blue 0.06% 0.5 ML SYR (11:18)
[2025-03-01] MEDS: Prednisolone 1%, Moxifloxacin 0.5%, Bromfenac 0.09% 5.6ML BTL OS (11:34)
[2025-03-01] MEDS: Moxifloxacin-PF 1 MG/ML VIAL (11:34)
[2025-03-01 11:42] VITALS: BP 119/75; PULSE 90; RESP 16; TEMP 36.6; O2SAT 99
--- NOTE | 2025-03-01 11:43 | W.PM.DSUDISC ---
Date of service: 03/01/25 Discharge Plan Disposition Patient Disposition: Home Discharge Details Attending Provider: Los Greer Primary Care Provider: Antoni Ohara Home Meds and New Rx's Prescriptions: No Action (DME) blood-glucose meter [FreeStyle Lite Meter] Kit See Rx Instructions .Route Qty: 1 0RF Rx Instructions: Check blood sugars daily. E11.9.Keep A1c below 7 (DME) FreeStyle Lite Strips Strip See Rx Instructions .Route Qty: 100 3RF Rx Instructions: Check blood sugars daily. DX: E11.9. Keep A1c below 7 (DME) lancets [Lancets,Ultra Thin] Misc See Rx Instructions .Route Qty: 100 3RF Rx Instructions: Check blood sugars daily. DX: E11.9.Keep A1c below 7. naproxen 500 mg tablet 500 mg PO BID PRN (Reason: pain) Qty: 180 3RF metformin 750 mg tablet extended release 24 hr 750 mg PO BID Qty: 60 3RF Rx Instructions: Take with food levothyroxine 75 mcg tablet See Rx Instructions .ROUTE .COMPLEX Qty: 90 3RF Dose Instruction: TAKE 1 TABLET BY MOUTH DAILY Rx Instructions: TAKE 1 TABLET BY MOUTH DAILY aripiprazole 20 mg tablet 20 mg PO DAILY Qty: 90 3RF divalproex 500 mg tablet,delayed release (DR/EC) 1,000 mg PO BID Qty: 360 3RF Jardiance 10 mg tablet 10 mg PO DAILY Qty: 30 3RF topiramate [Topamax] 50 mg tablet 50 mg PO DAILY Discharge Instructions Stand Alone Forms: DSU Post-Op CataractBrennon (DSU) Discharge Orders Discharge Orders: Discharge Order (Routine); Ordered 03/01/25 Ordered By: Los Greer DS: Diagnosis Discharge Diagnosis (1) Cortical age-related cataract, left eye: Status: Resolved (2) Nuclear age-related cataract, left eye: Status: Resolved
--- NOTE | 2025-03-01 11:44 | W.PM.OP ---
Operative Note Operative Note PRE-OP DIAGNOSIS: Nuclear/cortical cataract, left eye POST-OP DIAGNOSIS: same PROCEDURE: Cataract extraction using phacoemulsification with intraocular lens implant, left eye SURGEON: Los Greer ANESTHESIA TYPE: Local By Surgeon and MAC Refer to Anesthesia Record PATHOLOGY: none sent COMPLICATIONS: None Patient was transported to: same day Patient's condition: stable Implants: Bill Clareon [id number] Indications: Progressive decreased vision due to cataract, left eye Procedure Description: CATARACT SURGERY OPERATIVE REPORT PREOPERATIVE DIAGNOSIS: Nuclear/cortical cataract, left eye POSTOPERATIVE DIAGNOSIS: Same OPERATION: Cataract extraction using phacoemulsification with posterior chamber intraocular lens implant, left eye. IOL: IOL Web Services Developer/Model: Bill Clareon [id number] IOL Power: + 23.0 diopters IOL Serial Number: [id number] Optic Diameter: 6.0mm Haptic/Overall Diameter: 13.0mm PHACO INFO: Bill Centurion Vision System with OZil and Active Fluidics Cumulative Dispersed Energy (CDE): 4.05 seconds SURGEON: Los Greer MD, ISI ANESTHESIA: Monitored Anesthesia Care (MAC), with local sub-tenon's anesthetic infiltration COMPLICATIONS: None SPECIMENS: None INDICATIONS FOR PROCEDURE: The patient is a 44-year-old lady with history of progressive decreased vision in her left eye who was noted to have a dense cortical cataract with more moderate nuclear cataract, almost a complete mature white cataract. The option of cataract surgery was offered to the patient and she wished to proceed. See office notes for detailed information. PROCEDURE: The correct surgical eye was identified and marked as the left eye and the pupil was dilated in the preoperative area using mydriatics and cycloplegics. The dilated pupil size was 8.0 mm. The patient elected to proceed without oral sedation. The patient was brought to the operating room where cardiopulmonary monitoring was instituted and surgical time-out was performed, confirming the correct operative eye and IOL power. Topical anesthesia was administered and ophthalmic povidone-iodine 5% was instilled into the conjunctival fornices. The shailesh-ocular area was prepped with Betadine 10% solution and draped in the usual sterile fashion for intraocular surgery, including an aperture drape. A Tegaderm transparent film dressing was cut in half and used to cover the lashes and lid margins. Care was taken to sequester the lashes and lid margins under the Tegaderm dressing. A lid speculum was placed between the lids of the operative eye and the Bill LuxOR Revalia operating microscope was maneuvered into position. Jazmine scissors were then used to make a conjunctival buttonhole approximately 6mm posterior to the limbus in the inferonasal quadrant. Blunt dissection was carried out to expose bare sclera, and a blunt-tipped sub-tenon?s anesthesia cannula was introduced and passed posteriorly along the globe where non-preserved plain lidocaine was injected into posterior sub-Tenon?s space. A sideport knife was used to make a paracentesis port. VisionBlue was injected into the anterior chamber and allowed to sit for 30 seconds. Intraocular phenylephrine/lidocaine was injected into the anterior chamber. The anterior chamber was then filled with viscoelastic. A keratome knife was used construct a two-plane clear corneal tunnel extending 2.0mm into clear cornea. A flap was raised on the anterior capsule and capsulorhexis forceps were used to complete a continuous curvilinear capsulorhexis of 5.0 mm. Balanced salt solution was then used to perform cortical cleaving hydrodissection and nuclear hydrodelineation until the lens could be freely rotated within the capsular bag. The lens nucleus was then disassembled and removed within the capsular bag and iris plane using phacoemulsification. Residual cortical material was removed using the irrigation/aspiration handpiece. The posterior capsule was carefully polished to remove as much residual lens epithelial cells as safely possible. The capsular bag was then inflated and the anterior chamber deepened with viscoelastic. The lens implant described above was inserted into the capsular bag using the Bill Autonome Injector. A Kuglen hook was used to dial the IOL into position. Residual viscoelastic was then removed first from posterior to the IOL, then from the anterior chamber using the I/A handpiece. The lens implant was noted to center nicely within the capsular bag. The incisions were stromally hydrated, and the anterior chamber was reformed using BSS. Then 0.5cc of moxifloxacin 1.0mg/ml were injected into the capsular bag and anterior chamber. The incisions were checked with a Weck spear and found to be secure. Several drops of ophthalmic povidone-iodine 5% were then applied to the eye followed by two drops of combination steroid/NSAID/antibiotic solution. The drapes were removed and a clear plastic protective eye shield was placed over the eye. The patient was then returned to Same Day Surgery in stable condition. Date of Procedure: 03/01/25
--- NOTE | 2025-03-01 12:05 | W.ANESPOSTOP ---
Postoperative Evaluation Date, Time and Location Date Performed: 03/01/25 Time Performed: 11:50 Patient Location: Day Surgery Unit Vital Signs Most Recent Imported Vital Signs: Most Recent Vital Signs Temp Pulse Resp BP Pulse Ox 36.6 C 90 16 119/75 99 03/01/25 11:42 03/01/25 11:42 03/01/25 11:42 03/01/25 11:42 03/01/25 11:42 Pain Score Most Recent Pain Score: Most Recent Pain Score Pain Level 0 03/01/25 11:42 Assessment Mental Status: Awake (Alert & Oriented to Patient Baseline) Airway and Respiratory Function: Patent airway with normal (patient baseline) respiratory exam Cardiovascular Function: Hemodynamically Stable Hydration Status: Adequately Hydrated Nausea & Vomiting: No Nausea or Vomiting Pain: Pt. Denies Any Pain Peripheral Nerve Block: Patient did not receive a nerve block
== END 2025-03-01 12:08 | disposition home or self-care (01) ==
LOC: SUR 09:02
PROVIDERS: PCP Family Medicine; Visit Provider Ophthalmology
PROC: (CPT 66984; principal; 2025-03-01 10:30)
DX: H25.012 Cortical age-related cataract, left eye (principal); H25.12 Age-related nuclear cataract, left eye; E11.9 Type 2 diabetes mellitus without complications
CPT/HCPCS: 66984; 00123; V2632; J2003

== ENCOUNTER 2025-03-15 12:06 | Day surgery (SDC) | payer MEDICAID, SELFPAY ==
[2025-03-15 12:18] VITALS: BP 111/74; PULSE 90; RESP 16; TEMP 36.2; O2SAT 97
[2025-03-15] MEDS: Tropicam./Phenyleph. (1/2.5%) 5 ML BTL OD ×2 (12:28→12:35)
--- NOTE | 2025-03-15 13:19 | ANES.PREOP_ITS ---
General Info Date of Service Date Performed: 03/15/25 Height: 5 ft 3 in Weight: 77.1 kg Body Mass Index (BMI): 30.1 Surgical Procedure: Operation Date: 03/15/25 14:40 Proposed Procedure Side Surgeon p Cataract Extraction with IOL Implant Right Los Greer MD Meds Allergies and Home Medications Allergies Allergy/AdvReac Type Severity Reaction Status Date / Time codeine Allergy Mild unknown Verified 03/15/25 12:29 Home Medication ?Medication ?Instructions ?Recorded levothyroxine 75 mcg tablet See Rx Instructions .Route 06/05/24 .COMPLEX #90 tabs blood sugar diagnostic (FreeStyle #100 ea 08/09/24 Lite Strips) blood-glucose meter (FreeStyle #1 ea 08/09/24 Lite Meter kit) lancets (Lancets,Ultra Thin) #100 ea 08/09/24 naproxen 500 mg tablet 500 mg PO BID PRN pain #180 tabs 11/27/24 metformin 750 mg tablet,extended 750 mg PO BID #60 tab s 12/12/24 release 24 hr aripiprazole 20 mg tablet 20 mg PO DAILY #90 tabs 01/03 01/27 divalproex 500 mg tablet,delayed 1,000 mg (2 x 500 mg) PO BID #360 01/17/25 release tabs empagliflozin 10 mg tablet 10 mg PO DAILY #30 tabs (Jardiance) topiramate 50 mg tablet See Rx Instructions .Route 0 03/05/25 .COMPLEX #28 tabs dulaglutide 0.75 mg/0.5 mL 0.75 mg (0.5 mL) subcut QWE EK #2 mL 03/11/25 subcutaneous [facility] Current Visit Medications: Current Medications Generic Name Dose Route Start Last Admin Trade Name Freq PRN Reason Stop Dose Admin Acetaminophen 1,000 mg 03/15/25 06:00 Acetaminophen 500 Mg Tab PO 04/14/25 05:59 Q4H PRN PRN Balanced Salt Solution 500 ml 03/15/25 06:00 Balanced Salt Soln.-Plus 500 Ml Bag OP 04/14/25 05:59 DIRECTED EDWIGE Miscellaneous Medication 0 ml 03/15/25 06:00 Prednisolone 1%, Moxifloxacin 0.5%, Bromfenac 0.09% 5.6ml Btl OD 04/14/25 05:59 DIRECTED [facility] Miscellaneous Medication 0 ml 03/15/25 06:00 03/15/25 12:35 Tropicam./Phenyleph. (1/2.5%) 5 Ml Btl OD 04/14/25 05:59 1 drp DIRECTED [facility] Administration Tetracaine HCl 0 ml 03/15/25 06:00 Tetracaine 0.5% 4 Ml Btl OD 04/14/25 05:59 DIRECTED [facility] PFSH Active Problems Active Problems: Problem Status Onset Code Posterior subcapsular age-related cataract, right eye Acute H25.041 Cortical age-related cataract, right eye Acute H25.011 Nuclear age-related cataract, right eye Acute H25.11 Cortical age-related cataract, left eye Resolved H25.012 Nuclear age-related cataract, left eye Resolved H25.12 Calcific tendinitis of left shoulder Acute M75.32 Shoulder pain, left Acute M25.512 Hypothyroidism (acquired) Chronic E03.9 Overdose Acute T50.901A Metformin overdose Acute T38.3X1A Depression Chronic F32.A Cataracts, bilateral Acute H26.9 Hypersomnolence Acute G47.10 Increased ammonia level Acute R79.89 Accidental overdose of valproate sodium Acute T42.6X1A Adverse effect of beta-karina Acute T44.7X5A Accidental metformin overdose Acute T38.3X1A Joint stiffness Acute M25.60 Bipolar disorder Chronic F31.9 Right hip pain Acute M25.551 Fullness in ear Acute H93.8X9 defect Acute Q89.9 Low back pain Acute M54.50 Shoulder pain Acute M25.519 Macrocytic anemia Acute D53.9 Hypoalbuminemia due to protein-calorie malnutrition Acute E88.09, E46 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 Acute E11.51, I70.209 Diabetes mellitus type II, controlled Acute E11.9 POTS (postural orthostatic tachycardia syndrome) Acute G90.A Plantar warts Acute B07.0 Fatigue Acute R53.83 Pelvic pain Acute R10.2 Orthostatic hypotension Acute I95.1 Chronic diarrhea Acute K52.9 Nonalcoholic steatohepatitis Acute K75.81 Hypothyroid Chronic E03.9 Hirsutism Acute L68.0 Dysfunctional uterine bleeding Acute N93.8 Oligomenorrhea Acute N91.5 Schizophrenia Chronic F20.9 Medical History Medical History Uterine mass Non compliance w medication regimen Yeast dermatitis RLS (restless legs syndrome) H/O suicide attempt At time of assessment: Pt. states she does not have any thoughts of harming herself or others. Schizoaffective disorder Deviated nasal septum Trigeminal neuralgia of left side of face (01/03/18) Type 2 diabetes mellitus History of hypothyroidism Drug overdose, intentional Surgical History Surgical History S/p breast implant removal Sep 2019 S/P breast implant, left H/O pilonidal cyst S/P foot surgery Ligation of fallopian tube Tobacco Smoking/Tobacco Use Status: Current every day Tobacco Type: e-cigarettes Passive smoking exposure: No Alcohol Alcohol Intake: never Substance Use Substance use: Current Sobriety Substance use type: does not use Details: no recent use of e-ciggarettes Prental History History 2 Para 2 Hx # Term Pregnancies Multiple births Hx # Pregnancies Ectopic pregnancies AB induced Hx Number of Living Children AB spontaneous Past Pregnancies Del. Date GA/Weeks # Preg Succ Route Wgt Sex Labor Lgth Anesth esia Location Prov Complic 08/30/01 40 No Yes vaginal Female 03/25/02 40 No Yes vaginal Male Delivery Date: 08/30/01 [facility]: 03[facility]25/02 Last Updated by: [facility]e [facility] Vital Signs and Lab Results Vital Signs Most Recent Vital Signs in EMR: Most Recent Vital Signs Temp Pulse Resp BP Pulse Ox 36.2 C L 90 16 111/74 97 03/15/25 12:18 03/15/25 12:18 03/15/25 12:18 03/15/25 12:18 03/15/25 12:18 Point of Care Results Point of Care Results: Finger Stick Blood Glucose 210 03/15/25 12:33 Lab Results Complete Metabolic Panel: Hemoglobin A1c, (4.5-5.7) 7.4 % H 02/19/25, 13:3 4 Anesthesia Assessment and Plan Anesthesia History Personal History: No History of Anesthesia Complications Family History: No Family History of Anesthesia Complications Exercise Tolerance Exercise Tolerance: Metabolic Equivalents>4 Pertinent Negatives Pertinent Negatives: No Symptoms of GERD Cardiac & Pulmonary Exam Cardiac Exam: Normal S1/S2 Heart Sounds Pulmonary Exam: Clear Bilateral Breath Sounds Implantable Cardiac Device Does patient have a Pacemaker or an ICD?: No Airway Exam Known Difficult Airway: No Mallampati Class: 4 Mouth Opening: Narrow (< 3cm) Thyromental Distance: Less than 3 cm Neck Range of Motion: Limited ROM Neck Circumference: Normal Teeth Condition: Normal Dentition ASA Classification ASA Score: ASA 3 Emergency Case?: No NPO Status NPO Status: NPO Clears >2 hours, Solids >8 hours Status Status: Pt. refuses testing, she was counseled on anesthesia risks Anesthesia Plan Resuscitation Status: Full Code Anesthesia Technique: MAC Anesthesia Airway Planned: Natural Airway Monitors Used: Standard Monitors
[2025-03-15 13:20] VITALS: BMI 30.1
[2025-03-15] MEDS: Tetracaine 0.5% 4 ML BTL OD (14:10)
[2025-03-15] MEDS: Povidone-Iodine Ophth 30 ML BTL (14:10)
[2025-03-15] MEDS: Duovisc Viscoelastic System EACH 1 EACH (14:17)
[2025-03-15] MEDS: Lidocaine 1% Pres-Free 5 ML VIAL (14:17)
[2025-03-15] MEDS: Phenylephrine/Lidocaine (15/10) MG/ML 1 ML VIAL (14:18)
[2025-03-15] MEDS: Trypan Blue 0.06% 0.5 ML SYR (14:19)
[2025-03-15] MEDS: Balanced Salt Soln.-PLUS 500 ML BAG OP (14:19)
[2025-03-15] MEDS: Moxifloxacin-PF 1 MG/ML VIAL (14:39)
[2025-03-15] MEDS: Prednisolone 1%, Moxifloxacin 0.5%, Bromfenac 0.09% 5.6ML BTL OD (14:40)
[2025-03-15 14:44] VITALS: BP 111/76; PULSE 85; RESP 16; TEMP 36.6; O2SAT 96
--- NOTE | 2025-03-15 14:46 | W.PM.DSUDISC ---
Date of service: 03/15/25 Discharge Plan Disposition Patient Disposition: Home Discharge Details Attending Provider: Los Greer Primary Care Provider: Antoni Ohara Home Meds and New Rx's Prescriptions: No Action (DME) blood-glucose meter [FreeStyle Lite Meter] Kit See Rx Instructions .Route Qty: 1 0RF Rx Instructions: Check blood sugars daily. E11.9.Keep A1c below 7 (DME) FreeStyle Lite Strips Strip See Rx Instructions .Route Qty: 100 3RF Rx Instructions: Check blood sugars daily. DX: E11.9. Keep A1c below 7 (DME) lancets [Lancets,Ultra Thin] Misc See Rx Instructions .Route Qty: 100 3RF Rx Instructions: Check blood sugars daily. DX: E11.9.Keep A1c below 7. naproxen 500 mg tablet 500 mg PO BID PRN (Reason: pain) Qty: 180 3RF Patient Comments: patient states she doesn't take anymore metformin 750 mg tablet extended release 24 hr 750 mg PO BID Qty: 60 3RF Rx Instructions: Take with food levothyroxine 75 mcg tablet See Rx Instructions .ROUTE .COMPLEX Qty: 90 3RF Dose Instruction: TAKE 1 TABLET BY MOUTH DAILY Rx Instructions: TAKE 1 TABLET BY MOUTH DAILY aripiprazole 20 mg tablet 20 mg PO DAILY Qty: 90 3RF divalproex 500 mg tablet,delayed release (DR/EC) 1,000 mg PO BID Qty: 360 3RF Jardiance 10 mg tablet 10 mg PO DAILY Qty: 30 3RF topiramate 50 mg tablet See Rx Instructions .ROUTE .COMPLEX Qty: 28 0RF Dose Instruction: TAKE 1 TABLET BY MOUTH AT BEDTIME Rx Instructions: TAKE 1 TABLET BY MOUTH AT BEDTIME Trulicity 0.75 mg/0.5 mL pen injector 0.75 mg subcut QWEEK Qty: 2 3RF Discharge Instructions Stand Alone Forms: DSU Post-Op CataractBrennon (DSU) Discharge Orders Discharge Orders: Discharge Order (Routine); Ordered 03/15/25 Ordered By: Los Greer DS: Diagnosis Discharge Diagnosis (1) Posterior subcapsular age-related cataract, right eye: Status: Resolved (2) Cortical age-related cataract, right eye: Status: Resolved (3) Nuclear age-related cataract, right eye: Status: Resolved
--- NOTE | 2025-03-15 14:47 | ROE_ITS ---
Operative Note Operative Note PRE-OP DIAGNOSIS: Mature white cortical/nuclear/posterior subcapsular cataract, right eye POST-OP DIAGNOSIS: same PROCEDURE: Cataract extraction using phacoemulsification with intraocular lens implant, right eye SURGEON: Los Greer ANESTHESIA TYPE: Local By Surgeon and MAC Refer to Anesthesia Record ESTIMATED BLOOD LOSS: 0 PATHOLOGY: none sent COMPLICATIONS: None Patient was transported to: same day Patient's condition: stable Implants: Bill Clareon [id number] Indications: Progressive decreased vision due to cataract, right eye Procedure Description: CATARACT SURGERY OPERATIVE REPORT PREOPERATIVE DIAGNOSIS: Mature white cortical/nuclear/posterior subcapsular tenderness, right eye POSTOPERATIVE DIAGNOSIS: Same OPERATION: Cataract extraction using phacoemulsification with posterior chamber intraocular lens implant, right eye. IOL: IOL Sheet Metal Pattern Cutter/Model: Bill Clareon [id number] IOL Power: + 24.0 diopters IOL Serial Number: [id number] Optic Diameter: 6.0mm Haptic/Overall Diameter: 13.0mm PHACO INFO: Bill Codesign Cooperativeurion Vision System with OZil and Active Fluidics Cumulative Dispersed Energy (CDE): 8.82 seconds SURGEON: Los Greer MD, ISI ANESTHESIA: Monitored Anesthesia Care (MAC), with local sub-tenon's anesthetic infiltration COMPLICATIONS: None SPECIMENS: None INDICATIONS FOR PROCEDURE: The patient is a 44-year-old lady with history of progressive decreased vision in both eyes who developed essentially mature white cataract in both eyes with very poor visual acuity. The option of cataract surgery was after the patient and she wished to proceed. She has already undergone cataract surgery in the left eye and is doing well postoperatively. She now presents for cataract surgery in the right eye. PROCEDURE: The correct surgical eye was identified and marked as the right eye and the pupil was dilated in the preoperative area using mydriatics and cycloplegics. The dilated pupil size was 8.0 mm. The patient elected to proceed without oral sedation. The patient was brought to the operating room where cardiopulmonary monitoring was instituted and surgical time-out was performed, confirming the correct operative eye and IOL power. Topical anesthesia was administered and ophthalmic povidone-iodine 5% was instilled into the conjunctival fornices. The shailesh-ocular area was prepped with Betadine 10% solution and draped in the usual sterile fashion for intraocular surgery, including an aperture drape. A Tegaderm transparent film dressing was cut in half and used to cover the lashes and lid margins. Care was taken to sequester the lashes and lid margins under the Tegaderm dressing. A lid specu lum was placed between the lids of the operative eye and the Bill LuxOR Revalia operating microscope was maneuvered into position. Jazmine scissors were then used to make a conjunctival buttonhole approximately 6mm posterior to the limbus in the inferonasal quadrant. Blunt dissection was carried out to expose bare sclera, and a blunt-tipped sub-tenon?s anesthesia cannula was introduced and passed posteriorly along the globe where non- preserved plain lidocaine was injected into posterior sub-Tenon?s space. A sideport knife was used to make a paracentesis port. VisionBlue was injected into the anterior chamber and left to sit for 30 seconds. Intraocular phenylephrine/lidocaine was injected into the anterior chamber. The anterior chamber was then filled with viscoelastic. A keratome knife was used to construct a two--plane clear corneal tunnel extending 2.0mm into clear cornea. A flap was raised on the anterior capsule and capsulorhexis forceps were used to complete a continuous curvilinear capsulorhexis of 5.0 mm. Balanced salt solution was then used to perform cortical cleaving hydrodissection and nuclear hydrodelineation until the lens could be freely rotated within the capsular bag. The lens nucleus was then disassembled and removed within the capsular bag and iris plane using phacoemulsification. Residual cortical material was removed using the I/A handpiece. The posterior capsule was carefully polished to remove as much residual lens epithelial cells as safely possible. The capsular bag was then inflated and the anterior chamber deepened with cohesive viscoelastic. The lens implant described above was inserted into the capsular bag using the Bill Autonome Injector. A Kuglen hook was used to dial the IOL into position. Residual viscoelastic was then removed first from posterior to the IOL, then from the anterior chamber using the I/A handpiece. The lens implant was noted to center nicely within the capsular bag. The incisions were stromally hydrated, and the anterior chamber was reformed using BSS. Then 0.5cc of moxifloxacin 1.0mg/ml were injected into the capsular bag and anterior chamber. The incisions were checked with a Weck spear and found to be secure. Several drops of ophthalmic povidone-iodine 5% were then applied to the eye followed by two drops of combination steroid/NSAID/antibiotic solution. The drapes were removed and a clear plastic protective eye shield was placed over the eye. The patient was then returned to Same Day Surgery in stable condition. Date of Procedure: 03/15/25
--- NOTE | 2025-03-15 15:33 | W.ANESPOSTOP ---
Postoperative Evaluation Date, Time and Location Date Performed: 03/15/25 Time Performed: 14:50 Patient Location: Day Surgery Unit Vital Signs Most Recent Imported Vital Signs: Most Recent Vital Signs Temp Pulse Resp BP Pulse Ox 36.6 C 85 16 111/76 96 03/15/25 14:44 03/15/25 14:44 03/15/25 14:44 03/15/25 14:44 03/15/25 14:44 Pain Score Most Recent Pain Score: Most Recent Pain Score Pain Level 0 03/15/25 14:44 Assessment Mental Status: Awake (Alert & Oriented to Patient Baseline) Airway and Respiratory Function: Patent airway with normal (patient baseline) respiratory exam Cardiovascular Function: Hemodynamically Stable Hydration Status: Adequately Hydrated Nausea & Vomiting: No Nausea or Vomiting Pain: Pt. Denies Any Pain Peripheral Nerve Block: Patient did not receive a nerve block
== END 2025-03-15 15:10 | disposition home or self-care (01) ==
LOC: SUR 12:06
PROVIDERS: PCP Family Medicine; Visit Provider Ophthalmology
PROC: (CPT 66984; principal; 2025-03-15 14:30)
DX: H25.041 Posterior subcapsular polar age-related cataract, right eye (principal); H25.011 Cortical age-related cataract, right eye; H25.11 Age-related nuclear cataract, right eye; Z98.42 Cataract extraction status, left eye
CPT/HCPCS: 66984; 00123; V2632; J2003

== ENCOUNTER 2025-07-01 16:41 | Emergency (ER) | payer MEDICAID, SELFPAY ==
[2025-07-01] MEDS: diazePAM 5 MG TAB PO (17:13)
[2025-07-01] MEDS: Divalproex Sodium 500 MG TAB.ER.24H 1000 MG PO (18:12)
[2025-07-01 18:20] LABS: Abs Immature Grans 0.18 10^3/uL (0.0-0.06); HCT 38.9 % (36.0-46.0); HGB 13.5 g/dL (11.2-15.7); Immature Grans % 2.1 %; MCH 32.8 pg (27.0-33.0); MCHC 34.7 % (32.0-36.0); MCV 94 fL (80-95); MPV 9.5 fL (8.0-11.0); Platelet Count 246 10^3/uL (130-400); RBC 4.12 10^6/uL (3.93-5.22); RDW 11.9 % (11.7-14.6); RDW-SD 41.3 fL; WBC 8.58 10^3/uL (4.4-10.8)
[2025-07-01 18:35] LABS: Salicylate < 2.8 mg/dL (<2.8)
[2025-07-01 18:45] LABS: ALT 21 U/L (14-59); AST 14 U/L (15-37); Albumin 3.5 g/dL (3.4-5.0); Alkaline Phosphatase 174 U/L (46-116); Anion Gap 16.6 mmol/L (3-11); BUN 5 mg/dL (7-18); Bilirubin, Total 0.2 mg/dL (0.2-1.0); CO2 23.4 mmol/L (21.0-32.0); Calcium 9.1 mg/dL (8.5-10.1); Chloride 100 mmol/L (98-107); Estimated GFR 71.24 (mL/min/1.73m2); Glucose 310 mg/dL (74-106); Potassium 3.9 mmol/L (3.5-5.1); Sodium 140 mmol/L (136-145); TSH (W/Ref FT4) 4.36 uIU/mL (0.36-3.74); Total Protein 7.4 g/dL (6.4-8.2)
[2025-07-01 19:50] LABS: Glucose >=1000 mg/dL (Negative)
[2025-07-01 19:55] LABS: C & S Indicated? Yes; RBC >50 HPF (0-2)
[2025-07-01 19:59] LABS: BE (Venous) -1 mmol/L (-2-3); HCO3 (Venous) 24 mmol/L (23-28); O2 Sat (Venous) 92 %; TCO2 (Venous) 21 mmol/L (24-29); pCO2 (Venous) 37 mmHg (41-51); pO2 (Venous) 58 mmHg
[2025-07-01 20:01] VITALS: BP 131/74; PULSE 98; RESP 18; TEMP 36.6; O2SAT 97
[2025-07-01 20:08] LABS: Cannabinoids THC Negative (Negative); METHADONE URINE SCREEN Negative (Negative)
[2025-07-01 20:14] LABS: Anion Gap 11.9 mmol/L (3-11); BUN 5 mg/dL (7-18); CO2 25.1 mmol/L (21.0-32.0); Calcium 9.0 mg/dL (8.5-10.1); Chloride 101 mmol/L (98-107); Estimated GFR 109.30 (mL/min/1.73m2); Glucose 250 mg/dL (74-106); Potassium 3.8 mmol/L (3.5-5.1); Sodium 138 mmol/L (136-145)
[2025-07-01] MEDS: metFORMIN 850 MG TAB 1000 MG PO (23:28)
--- NOTE | 2025-07-01 23:35 | ED.GENADUL_ITS ---
Discharge Plan Disposition Patient Disposition: Psychiatric Hospital/Unit Specific Psychiatric Facility: [facility] Discharge Details Clinical Impression: Depression with suicidal ideation Primary Care Provider: Antoni Ohara ED Provider: Marcio Horn Home Meds and New Rx's Prescriptions: Continued (DME) blood-glucose meter [FreeStyle Lite Meter] Kit See Rx Instructions .Route Qty: 1 0RF Rx Instructions: Check blood sugars daily. E11.9.Keep A1c below 7 (DME) FreeStyle Lite Strips Strip See Rx Instructions .Route Qty: 100 3RF Rx Instructions: Check blood sugars daily. DX: E11.9. Keep A1c below 7 (DME) lancets [Lancets,Ultra Thin] Misc See Rx Instructions .Route Qty: 100 3RF Rx Instructions: Check blood sugars daily. DX: E11.9.Keep A1c below 7. acetaminophen 500 mg capsule 1,500 mg PO Q6H PRN (Reason: pain) venlafaxine [Effexor XR] 75 mg capsule,extended release 24hr 75 mg PO DAILY Qty: 60 1RF Rybelsus 3 mg tablet 3 mg PO DAILY 30 Days Qty: 30 1RF aripiprazole 20 mg tablet 20 mg PO DAILY Qty: 90 3RF divalproex 500 mg tablet,delayed release (DR/EC) 1,000 mg PO BID Qty: 360 3RF topiramate 50 mg tablet See Rx Instructions .ROUTE .COMPLEX Qty: 28 6RF Dose Instruction: TAKE 1 TABLET BY MOUTH AT BEDTIME Rx Instructions: TAKE 1 TABLET BY MOUTH AT BEDTIME metformin 750 mg tablet extended release 24 hr 750 mg PO BID Qty: 60 6RF Rx Instructions: Take with food levothyroxine 75 mcg tablet See Rx Instructions .ROUTE .COMPLEX Qty: 90 3RF Dose Instruction: TAKE 1 TABLET BY MOUTH DAILY Rx Instructions: TAKE 1 TABLET BY MOUTH DAILY Discharge Instructions Additional Instructions: You were seen in the emergency department for your depression. You were transferred to the [facility]. No medications were changed. Discharge Data Discharge Date/Time-TO BE ENTERED AT DEPARTURE: 07/03/25 16:11 HPI General Date/Time Provider Initiated Documentation: 07/01/25 17:00 . HPI Narrative: This 44-year-old female with history of lba-fyzexba-geyfuupeq diabetes, hypothyroidism, schizoaffective disorder orthostatic hypotension hirsutism macrocytic anemia presents with report of suicidal ideation. Her doctor reportedly increased her Effexor today. She states that she wants to end it all . On my initial assessment, patient states she has no reason to live and wants to take her life. She denies a specific plan. Patient then asks me if I can see the future and tells me that if I can she does not believe that she is in it. She denies any attempts to harm herself today. She is unsure if she took her Effexor today. She denies taking her diabetes meds for the past few days. She denies any current pain complaints or head injuries. She denies any homicidal ideation. She does endorse auditory hallucinations. Related Data Home Medications ?Medication ?Instructions ?Recorded ?Confirmed blood sugar diagnostic (FreeStyle #100 ea 08/09/24 Lite Strips) blood-glucose meter (FreeStyle #1 ea 08/09/24 07/01/25 Lite Meter kit) lancets (Lancets,Ultra Thin) #100 ea 08/09/24 07/01/25 aripiprazole 20 mg tablet 20 mg PO DAILY #90 tabs 01/0307/01/25 divalproex 500 mg tablet,delayed 1,000 mg (2 x 500 mg) PO BID #360 01/17/25 07/01/25 release tabs metformin 750 mg tablet,extended 750 mg PO BID #60 tab s 03/26/25 07/01/25 release 24 hr topiramate 50 mg tablet See Rx Instructions .Route 0 03/26/25 07/01/25 .COMPLEX #28 tabs levothyroxine 75 mcg tablet See Rx Instructions .Route 04/23/25 07/01/25 .COMPLEX #90 tabs acetaminophen 500 mg capsule 1,500 mg PO Q6H PRN pain 05/20/25 07/01/25 semaglutide 3 mg tablet (Rybelsus) 3 mg PO DAILY 30 da ys #30 tabs 07/01/25 07/01/25 venlafaxine 75 mg capsule,extended 75 mg PO DAILY #60 caps 07/01/25 07/01/25 release 24 hr (Effexor XR) Previous Rx's ?Medication ?Instructions ?Recorded blood sugar diagnostic (FreeStyle #100 ea 08/09/24 Lite Strips) blood-glucose meter (FreeStyle #1 ea 08/09/24 Lite Meter kit) lancets (Lancets,Ultra Thin) #100 ea 08/09/24 aripiprazole 20 mg tablet 20 mg PO DAILY #90 tabs 01/03 01/27 divalproex 500 mg tablet,delayed 1,000 mg (2 x 500 mg) PO BID #360 01/17/25 release tabs metformin 750 mg tablet,extended 750 mg PO BID #60 tab s 03/26/25 release 24 hr topiramate 50 mg tablet See Rx Instructions .Route 0 03/26/25 .COMPLEX #28 tabs levothyroxine 75 mcg tablet See Rx Instructions .Route 04/23/25 .COMPLEX #90 tabs semaglutide 3 mg tablet (Rybelsus) 3 mg PO DAILY 30 da ys #30 tabs 07/01/25 venlafaxine 75 mg capsule,extended 75 mg PO DAILY #60 caps 07/01/25 release 24 hr (Effexor XR) Allergies Allergy/AdvReac Type Severity Reaction Status Date / Time codeine Allergy Mild unknown Verified 07/01/25 10:13 General Stated Complaint: PsychEval CECILIA: 2 Exam Narrative Exam Narrative: Disheveled 44-year-old female in acute distress, emotionally labile, screaming that she can see the future, pupils are equal round reactive to light and accommodation, lungs are clear to auscultation cardiac rate rhythm regular no abdominal tenderness no visible sign of trauma alert and oriented x 3 on initial assessment, suicidality without plan very agitated. Course Vital Signs Vital signs: Vital Signs Temperature 36.6 C 07/01/25 20:01 Pulse 98 H 07/01/25 20:01 Respiratory Rate 18 07/01/25 20:01 Blood Pressure 131/74 07/01/25 20:01 Pulse Oximetry 97 07/01/25 20:01 Temperature 36.6 C 07/01/25 20:01 Temperature Source Skin 07/01/25 20:01 Pulse 98 H 07/01/25 20:01 Respiratory Rate 18 07/01/25 20:01 Respiratory Effort Normal, Non-Labored 07/01/25 20:00 Respiratory Depth Normal 07/01/25 20:00 Blood Pressure 131/74 07/01/25 20:01 Blood Pressure Mean 93 07/01/25 20:01 Pulse Oximetry 97 07/01/25 20:01 Oxygen Delivery Method Room Air 07/01/25 20:01 Oxygen Flow Rate 0 07/01/25 20:01 Comment pt refusing VS 07/01/25 16:36 Lab/Test Results Lab/Test Results: 07/01/25 19:40 Urine - Reflex from Ua Urine Culture - Pending Laboratory Tests Range/Units 07/01/25 07/01/25 07/01/25 18:08 19:40 19:55 WBC (4.4-10.8) 10^3/uL 8.58 RBC (3.93-5.22) 10^6/uL 4.12 Hgb (11.2-15.7) g/dL 13.5 Hct (36.0-46.0) % 38.9 MCV (80-95) fL 94 MCH (27.0-33.0) pg 32.8 MCHC (32.0-36.0) % 34.7 RDW (11.7-14.6) % 11.9 Plt Count (130-400) 10^3/uL 246 MPV (8.0-11.0) fL 9.5 Immature Gran % % 2.1 Neutrophils % % 68.2 Lymphocytes % % 21.6 Monocytes % % 6.8 Eosinophils % % 0.8 Basophils % % 0.5 Nucleated RBC % (0.0-0.3) % 0.0 Absolute Neutrophils (1.2-6.7) 10^3/uL 5.86 Absolute Lymphocytes (1.2-3.4) 10^3/uL 1.85 Absolute Monocytes (0.1-0.8) 10^3/uL 0.58 Absolute Eosinophils (0.0-0.7) 10^3/uL 0.07 Absolute Basophils (0.0-0.2) 10^3/uL 0.04 VBG pH (7.31-7.41) 7.41 VBG pCO2 (41-51) mmHg 37 L VBG pO2 mmHg 58 VBG HCO3 (23-28) mmol/L 24 VBG Total CO2 (24-29) mmol/L 21 L VBG O2 Saturation % 92 VBG Base Excess (-2-3) mmol/L -1 Sodium (136-145) mmol/L 140 138 Potassium (3.5-5.1) mmol/L 3.9 3.8 Chloride (98-107) mmol/L 100 101 Carbon Dioxide (21.0-32.0) mmol/L 23.4 25.1 Anion Gap (3-11) mmol/L 16.6 H 11.9 H BUN (7-18) mg/dL 5 L 5 L Creatinine (0.55-1.02) mg/dL 1.0 0.7 Est GFR (CKD-EPI 2020) (mL/min/1.73m2) 71.24 109.30 Glucose (74-106) mg/dL 310 H 250 H Calcium (8.5-10.1) mg/dL 9.1 9.0 Total Bilirubin (0.2-1.0) mg/dL 0.2 AST (15-37) U/L 14 L ALT (14-59) U/L 21 Alkaline Phosphatase (46-116) U/L 174 H Total Protein (6.4-8.2) g/dL 7.4 Albumin (3.4-5.0) g/dL 3.5 TSH (0.36-3.74) uIU/mL 4.36 H Free T4 (0.76-1.46) ng/dL 1.23 Urine Color (Yellow) Red Urine Clarity (Clear) Sl Cloudy Urine pH (5-8) 6.0 Ur Specific Hamilton (1.005-1.025) 1.020 Urine Protein (Neg-Trace) mg/dL Trace Urine Ketones (Negative) mg/dL >=160 H Urine Blood (Negative) Large H Urine Nitrite (Negative) Negative Urine Bilirubin (Negative) Negative Urine Urobilinogen (Up to 0.2) mg/dL 1.0 H Ur Leukocyte Esterase (Negative) Negative Urine RBC (0-2) HPF >50 H Urine WBC Not Applicable Ur Epithelial Cells (Negative) HPF Urine Crystals Not Applicable Urine Bacteria Not Applicable Urine Mucus Not Applicable Ur Culture Indicated? Yes Urine Glucose (Negative) mg/dL >=1000 H Salicylates (<2.8) mg/dL < 2.8 Urine Opiates Screen (Negative) Negative Urine Methadone Screen (Negative) Negative Ur Barbiturates Screen (Negative) Negative Valproic Acid ( - 150) ug/mL 75.2 Ur Tricyclics Screen (Negative) Negative Ur Amphetamines Screen (Negative) Negative U Benzodiazepines Scrn (Negative) Negative Urine Cocaine Screen (Negative) Negative Ur THC Screen (Negative) Negative Ethyl Alcohol (<10) mg/dL < 3.0 POC- Test(urine) Negative Medical Decision Making Results: CBC without acute abnormality VBG pH of 7.4, anion gap initially 16.6, recheck 11.9 creatinine within normal limits glucose of 230 consistent with dehydration and diabetes TSH of 4.36, negative POC red blood cells no jenna in urine, after p.o. fluids as patient refused IV her gap has improved there is no evidence of diabetic ketoacidosis, drug screen negative Assessment and plan: Initially on arrival patient was presenting labile for suicidal ideation and appeared acutely delusional although was alert and oriented x 3. She lifted her arms and was shaking the mom and so he did open the door and allow patient to walk out into the hallway for which she ran into the closets and threw herself on the ground screaming. We are then able to de- escalate and escort patient back to the room and administer Valium immediately which she took orally and was agreeable to to calm her down. There was no trauma noted from the injury after the Valium and receiving her Abilify and divalproex, she actually was alert and oriented calm and cooperative. We melissa blood work at this time. She is requesting discharge home I do not feel like this is appropriate at this time given the episode that just transpired. I do not feel she needs CT head and there was no head trauma and patient is schizoaffective and has had similar episodes in the past. She will be admitted and there is a as needed order for Valium. She has not taken her metformin for 2 days so I will order her metformin and encourage hydration given that she has ketones in urine. She does currently have her menses which explains the blood in her urine. She has no pain complaints noted. She is agreeable to voluntary status at this time. If she is to attempt to leave, she will need reassessment and likely at that time. care transitioned to Dr Huffman as ED observation status. Quality:SDOH Health Related Social Needs: Health related social needs risk of homeless daily act ivities lonely/isolated Health related social needs details states she has no problems with housing, heating or food. her does problems with depression and mental health [facility] All Active Problems (Updated 07/03/25 @ 14:27 by Marcio Horn MD) Depression with suicidal ideation (Acute) Calcific tendinitis of left shoulder (Acute) Shoulder pain, left (Acute) Hypothyroidism (acquired) (Chronic) Overdose (Acute) Metformin overdose (Acute) Depression (Chronic) Cataracts, bilateral (Acute) Hypersomnolence (Acute) Increased ammonia level (Acute) Accidental overdose of valproate sodium (Acute) Adverse effect of beta-karina (Acute) Accidental metformin overdose (Acute) Joint stiffness (Acute) Bipolar disorder (Chronic) Right hip pain (Acute) Fullness in ear (Acute) sensation of needing ear canals aircraft cleaner (but usually clear) defect (Acute) Low back pain (Acute) Shoulder pain (Acute) Macrocytic anemia (Acute) Hypoalbuminemia due to protein-calorie malnutrition (Acute) 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 Diabetes mellitus type II, controlled (Acute) POTS (postural orthostatic tachycardia syndrome) (Acute) Plantar warts (Acute) Fatigue (Acute) Pelvic pain (Acute) Orthostatic hypotension (Acute) Chronic diarrhea (Acute) Nonalcoholic steatohepatitis (Acute) Hypothyroid (Chronic) Hirsutism (Acute) Dysfunctional uterine bleeding (Acute) Oligomenorrhea (Acute) Schizophrenia (Chronic) Medical History (Updated 07/03/25 @ 14:27 by Marcio Horn MD) Uterine mass Non compliance w medication regimen Yeast dermatitis RLS (restless legs syndrome) H/O suicide attempt At time of assessment: Pt. states she does not have any thoughts of harming herself or others. Schizoaffective disorder Deviated nasal septum Trigeminal neuralgia of left side of face (01/03/18) Type 2 diabetes mellitus History of hypothyroidism Drug overdose, intentional Surgical History (Updated 03/15/25 @ 14:47 by Los Greer MD) S/p breast implant removal Sep 2019 S/P breast implant, left H/O pilonidal cyst S/P foot surgery Ligation of fallopian tube Family History Mother Diabetes Father Heart disease Social History Smoking/Tobacco Use Status: Current every day Tobacco Type: e-cigarettes Quit status: considering quitting Smoking risk assessment performed?: Yes Alcohol Intake: never Drug use: Current Sobriety Substance use type: does not use Details: no recent use of e-ciggarettes Adopted: No Caregiver/Support person: No Foster care: No Household members: none Housing: apartment Number of Children: 2 number of grandchildren: 0 Education Level: college Details: Some classes - no degree Do you need help understanding health information?: Never current occupation: Disabled Pets and animals: No (1) Sexually active: No Do you think of yourself as: straight/heterosexual Current gender identity: female What is your relationship status?: How often do you talk on the phone with friends or family?: once per week How often do you get together with friends or relatives?: never Do you belong to any clubs or organized social groups?: no Panel score (0-1 are the most socially isolated patients): 0 What type of physical activity do you participate in: walking Duration: 15-30 minutes/day Frequency: daily Lauren/Restorationism: Sabianist Special lauren needs: No Seatbelt use: always Helmet use: Yes Drive intox or ride w/intox driver courier: No Do you feel safe at home: Yes Do you feel safe in your relationship?: Yes Female Reproductive History Menstrual Age of Menarche: 16 Duration of menses: other control method: permanent sterilization History History 2 Para 2 Hx # Term Pregnancies Multiple births Hx # Pregnancies Ectopic pregnancies AB induced Hx Number of Living Children AB spontaneous Past Pregnancies Del. Date GA/Weeks # Preg Succ Route Wgt Sex Labor Lgth Anesth esia Location [facility] 08/30/01 40 No Yes vaginal Female 03/25/02 40 No Yes vaginal Male Delivery Date: 08/30/01 [facility]: 03/25/02 Last Updated by: [facility]
[2025-07-02] MEDS: Levothyroxine 75 MCG TAB PO (06:27)
[2025-07-02] MEDS: ARIPiprazole 5 MG TAB 20 MG PO (09:07)
[2025-07-02] MEDS: Venlafaxine 75 MG CAPCR PO (09:08)
[2025-07-02 09:09] VITALS: BP 119/65; PULSE 111; TEMP 36.2; O2SAT 98
[2025-07-02] MEDS: Divalproex Sodium 500 MG TAB.ER.24H 1000 MG PO ×2 (09:09→19:40)
--- NOTE | 2025-07-02 09:28 | CMPROGNOTE_ITS ---
Date of service: 07/02/25 Time of Service: 16:09 Care Management Progress Note Progress Note Text Progress Note Text: CM had a deconstructed huddle surrounding Shaneka's plan of care with [facility], Zone B RN, ED charge and communicated to dye house worker. Per RN, Shaneka has been engaging appropriately. Per [facility], she is willing to attend voluntary inpatient treatment and referrals have been sent. Tele psych has been completed. Safety plan is in place. CM will continue to follow. Status Status: Voluntary Social Determinants of Health Screening Will the Patient Participate in the Screening?: Declined to provide
--- NOTE | 2025-07-02 09:28 | CMSP_ITS ---
Date of service: 07/02/25 Time of Service: 09:29 Care Management Safety Plan Status Status: Voluntary Reason for Wait Reason for Wait: Inpatient Admission Safety Plan Safety Plan: VOLUNTARY FOR INPATIENT PSYCHIATRIC STABILIZATION.? Patient is appropriate in all interactions since arriving at [facility]; Pt has demonstrated appropriate coping and communication skills, has articulated his or her needs and concerns and is fully engaged during staff interactions. Safety plan has been established with patient, and care team, to adhere to patient goals, identify restrictions based on behavioral status, address nutrition, and determine allowed personal belongings, tools for hygiene and personal care. Determine level of activity including ambulation, level of supe rvision, visitors, and determine privileges based on behaviors and level of engagement by pt. VOLUNTARY SAFETY PLAN: 1. Will remain on suicide precautions, in paper clothes 2. Will remain in Zone B under direct supervision of one-on-one staff at all times provided by [employer]; LUIS MANUEL, SUSTAINABLE LANDSCAPE ARCHITECT process coordinator. 3. May have paper cups, plates, finger foods as well as a cardboard spoon with which to eat meals. 4. Follow [facility] Management of the Admitted Behavioral Health Patient policy. 5. Shower available in Zone B without restriction. 6. Personal belongings-soft items permitted at RN discretion. 7. Visitors-none at this time. 8. Activities: soft cart items, hospital tablets (Netflix/Stewart+/music) approved per RN discretion. 9.? Bathroom available in Zone B without restriction. 10. Phone: limited to [facility] cordless phone at RN discretion. Due to VOLUNTARY status, if patient wishes to leave [facility], staff will contact [facility] Crisis Screener ([phone]) and [employer] ([phone]) as soon as possible. In the event of elopement, notify [facility] Police ([phone]). Patient is currently voluntarily at [facility] and seeking inpatient admission when a bed becomes available. [facility] Frontline Philosophy And Religion Instructor will continue seeking placement. Please contact the [employer] ([phone]) and [facility] Philosophy And Religion Instructor ([phone]) for any needed changes in the Safety Plan. Safety plan has been provided to interdepartmental care team.
--- NOTE | 2025-07-02 09:28 | PDOC.CMSAFE ---
Date of service: 07/02/25 Time of Service: 09:29 Care Management Safety Plan Status Status: Voluntary Reason for Wait Reason for Wait: Inpatient Admission Safety Plan Safety Plan: VOLUNTARY FOR INPATIENT PSYCHIATRIC STABILIZATION.? Patient is appropriate in all interactions since arriving at [facility]; Pt has demonstrated appropriate coping and communication skills, has articulated his or her needs and concerns and is fully engaged during staff interactions. Safety plan has been established with patient, and care team, to adhere to patient goals, identify restrictions based on behavioral status, address nutrition, and determine allowed personal belongings, tools for hygiene and personal care. Determine level of activity including ambulation, level of supervision, visitors, and determine privileges based on behaviors and level of engagement by pt. VOLUNTARY SAFETY PLAN: 1. Will remain on suicide precautions, in paper clothes 2. Will remain in Zone B under direct supervision of one-on-one staff at all times provided by [employer]; LUIS MANUEL, ATG JAVA DEVELOPER blueprint duplicator. 3. May have paper cups, plates, finger foods as well as a cardboard spoon with which to eat meals. 4. Follow [facility] Management of the Admitted Behavioral Health Patient policy. 5. Shower available in Zone B without restriction. 6. Personal belongings-soft items permitted at RN discretion. 7. Visitors-none at this time. 8. Activities: soft cart items, hospital tablets (Netflix/Jose+/music) approved per RN discretion. 9.? Bathroom available in Zone B without restriction. 10. Phone: limited to [facility] cordless phone at RN discretion. Due to VOLUNTARY status, if patient wishes to leave [facility], staff will contact [facility] Crisis Screener ([phone]) and Publicity Writer ([phone]) as soon as possible. In the event of elopement, notify [facility] Police ([phone]). Patient is currently voluntarily at [facility] and seeking inpatient admission when a bed becomes available. [facility] Frontline Edging Machine Operator will continue seeking placement. Please contact the Publicity Writer ([phone]) and [facility] Edging Machine Operator ([phone]) for any needed changes in the Safety Plan. Safety plan has been provided to interdepartmental care team.
--- NOTE | 2025-07-02 09:28 | PDOC.CMPRO ---
Date of service: 07/02/25 Time of Service: 16:09 Care Management Progress Note Progress Note Text Progress Note Text: CM had a deconstructed huddle surrounding Shaneka's plan of care with [facility], Zone B RN, ED charge and communicated to chief transfer and pumphouse operator. Per RN, Shaneka has been engaging appropriately. Per [facility], she is willing to attend voluntary inpatient treatment and referrals have been sent. Tele psych has been completed. Safety plan is in place. CM will continue to follow. Status Status: Voluntary Social Determinants of Health Screening Will the Patient Participate in the Screening?: Declined to provide
[2025-07-02] MEDS: metFORMIN 500 MG TAB 1000 MG PO ×2 (09:43→22:06)
--- NOTE | 2025-07-02 15:52 | PDOC.MHPN2 ---
Date of service: 07/02/25 Time of Service: 12:41 Mental Health Emergency Note Release [facility] release signed:: Yes Reason for Visit MS prieto is a 44 year old single female who currently resides in [facility]. The client currently denies SI and HI. The client reported feeling safe at this time. This clinician explained that the provider and this clinician were concerned for the client due to the suicide attempt made the previous night. The client agreed to voluntary treatment. The client reports that her medication provider is currently through [facility] and that she sees a therapist through [facility] when needed but not regularly. The client states that she did sleep the previous night and that she has eaten some food. In the last 2 weeks has the pt presented for ES prior to today?: No Plan/Disposition Recommended Disposition: Hospitalization facilities contacted. Plan: The client is currently waiting for in patient treatment in the [facility] zone b. Reports/communication Outcome discussed with: ED/Personnel
--- NOTE | 2025-07-02 16:04 | ED.PSYCHBOAR ---
Date of service: 07/02/25 Time of Service: 16:04 Psychiatric Border Handoff Update Brief Story: I received signout on this 44-year-old female with schizoaffective disorder and diabetes. She is voluntary pending placement. No active behavioral issues on my shift. Patient signed out to Dr. Lyons. Status: voluntary Able to leave: would need physician/GILDARDO and crisis evaluation prior to leaving Mediation Reconciliation performed: Yes Code Status ordered: Yes Diet ordered: Yes Discharge Plan Discharge Details Chief Complaint: PsychEval Primary Care Provider: Antoni Ohara ED Provider: Marcio Horn Home Meds and New Rx's Prescriptions: No Action (DME) blood-glucose meter [FreeStyle Lite Meter] Kit See Rx Instructions .Route Qty: 1 0RF Rx Instructions: Check blood sugars daily. E11.9.Keep A1c below 7 (DME) FreeStyle Lite Strips Strip See Rx Instructions .Route Qty: 100 3RF Rx Instructions: Check blood sugars daily. DX: E11.9. Keep A1c below 7 (DME) lancets [Lancets,Ultra Thin] Misc See Rx Instructions .Route Qty: 100 3RF Rx Instructions: Check blood sugars daily. DX: E11.9.Keep A1c below 7. acetaminophen 500 mg capsule 1,500 mg PO Q6H PRN (Reason: pain) venlafaxine [Effexor XR] 75 mg capsule,extended release 24hr 75 mg PO DAILY Qty: 60 1RF Rybelsus 3 mg tablet 3 mg PO DAILY 30 Days Qty: 30 1RF aripiprazole 20 mg tablet 20 mg PO DAILY Qty: 90 3RF divalproex 500 mg tablet,delayed release (DR/EC) 1,000 mg PO BID Qty: 360 3RF topiramate 50 mg tablet See Rx Instructions .ROUTE .COMPLEX Qty: 28 6RF Dose Instruction: TAKE 1 TABLET BY MOUTH AT BEDTIME Rx Instructions: TAKE 1 TABLET BY MOUTH AT BEDTIME metformin 750 mg tablet extended release 24 hr 750 mg PO BID Qty: 60 6RF Rx Instructions: Take with food levothyroxine 75 mcg tablet See Rx Instructions .ROUTE .COMPLEX Qty: 90 3RF Dose Instruction: TAKE 1 TABLET BY MOUTH DAILY Rx Instructions: TAKE 1 TABLET BY MOUTH DAILY
[2025-07-02 19:15] VITALS: BP 120/73; PULSE 96; TEMP 36.1; O2SAT 97
[2025-07-02] MEDS: Topiramate 50 MG TAB PO (19:40)
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
[2025-07-03] MEDS: Levothyroxine 75 MCG TAB PO (06:26)
--- NOTE | 2025-07-03 07:25 | ED.PSYCHBOAR ---
Date of service: 07/03/25 Time of Service: 07:26 Psychiatric Border Handoff Update Brief Story: I received signout on this 44-year-old female voluntarily in the emergency department in the setting of suicidal thoughts. No active behavioral issues last shift. 2:25 PM I spoke to Latanya Harrison from the [facility] who graciously agreed to accept the patient for hospitalization. 4:09 PM Patient transferred to the [facility]. Status: voluntary Able to leave: would need physician/GILDARDO and crisis evaluation prior to leaving Mediation Reconciliation performed: Yes Code Status ordered: Yes Diet ordered: Yes Discharge Plan Disposition Patient Disposition: Psychiatric Hospital/Unit Specific Psychiatric Facility: [facility] Discharge Details Clinical Impression: Depression with suicidal ideation Primary Care Provider: Antoni Ohara ED Provider: Marcio Horn Home Meds and New Rx's Prescriptions: Continued (DME) blood-glucose meter [FreeStyle Lite Meter] Kit See Rx Instructions .Route Qty: 1 0RF Rx Instructions: Check blood sugars daily. E11.9.Keep A1c below 7 (DME) FreeStyle Lite Strips Strip See Rx Instructions .Route Qty: 100 3RF Rx Instructions: Check blood sugars daily. DX: E11.9. Keep A1c below 7 (DME) lancets [Lancets,Ultra Thin] Misc See Rx Instructions .Route Qty: 100 3RF Rx Instructions: Check blood sugars daily. DX: E11.9.Keep A1c below 7. acetaminophen 500 mg capsule 1,500 mg PO Q6H PRN (Reason: pain) venlafaxine [Effexor XR] 75 mg capsule,extended release 24hr 75 mg PO DAILY Qty: 60 1RF Rybelsus 3 mg tablet 3 mg PO DAILY 30 Days Qty: 30 1RF aripiprazole 20 mg tablet 20 mg PO DAILY Qty: 90 3RF divalproex 500 mg tablet,delayed release (DR/EC) 1,000 mg PO BID Qty: 360 3RF topiramate 50 mg tablet See Rx Instructions .ROUTE .COMPLEX Qty: 28 6RF Dose Instruction: TAKE 1 TABLET BY MOUTH AT BEDTIME Rx Instructions: TAKE 1 TABLET BY MOUTH AT BEDTIME metformin 750 mg tablet extended release 24 hr 750 mg PO BID Qty: 60 6RF Rx Instructions: Take with food levothyroxine 75 mcg tablet See Rx Instructions .ROUTE .COMPLEX Qty: 90 3RF Dose Instruction: TAKE 1 TABLET BY MOUTH DAILY Rx Instructions: TAKE 1 TABLET BY MOUTH DAILY Discharge Instructions Additional Instructions: You were seen in the emergency department for your depression. [facility] No medications were changed.
[2025-07-03] MEDS: Venlafaxine 75 MG CAPCR PO (09:07)
[2025-07-03] MEDS: ARIPiprazole 5 MG TAB 20 MG PO (09:07)
[2025-07-03] MEDS: Divalproex Sodium 500 MG TAB.ER.24H 1000 MG PO (09:08)
[2025-07-03] MEDS: metFORMIN 500 MG TAB 1000 MG PO ×2 (09:12→16:03)
[2025-07-03 09:24] VITALS: BP 112/76; PULSE 101; RESP 16; TEMP 36.5; O2SAT 98
--- NOTE | 2025-07-03 11:58 | CMSP_ITS ---
Date of service: 07/03/25 Time of Service: 12:02 Care Management Safety Plan Status Status: Voluntary Reason for Wait Reason for Wait: Inpatient Admission Safety Plan Safety Plan: VOLUNTARY FOR INPATIENT PSYCHIATRIC STABILIZATION.? Patient is appropriate in all interactions since arriving at [facility]; Pt has demonstrated appropriate coping and communication skills, has articulated his or her needs and concerns and is fully engaged during staff interactions. Safety plan has been established with patient, and care team, to adhere to patient goals, identify restrictions based on behavioral status, address nutrition, and determine allowed personal belongings, tools for hygiene and personal care. Determine level of activity including ambulation, level of supervision, visitors, and determine privileges based on behaviors and level of engagement by pt. VOLUNTARY SAFETY PLAN: 1. Will remain on suicide precautions, in paper clothes 2. Will remain in Zone B under direct supervision of one-on-one staff at all times provided by [employer]; LUIS MANUEL, SKINNER PELTS assembling fabricator. 3. May have paper cups, plates, finger foods as well as a cardboard spoon with which to eat meals. 4. Follow [facility] Management of the Admitted Behavioral Health Patient policy. 5. Shower available in Zone B without restriction. 6. Personal belongings-soft items permitted at RN discretion. 7. Visitors- supportive visitors, at RN discretion. 8. Activities: soft cart items, hospital tablets (Netflix/Jewell+/music) approved per RN discretion. 9.? Bathroom available in Zone B without restriction. 10. Phone: limited to [facility] cordless phone at RN discretion. Due to VOLUNTARY status, if patient wishes to leave [facility], staff will contact [facility] Crisis Screener ([phone]) and Channeling Machine Runner ([phone]) as soon as possible. In the event of elopement, notify [facility] Police ([phone]). Patient is currently voluntarily at [facility] and seeking inpatient admission when a bed becomes available. [facility] Frontline Sports Lawyer will continue seeking placement. Please contact the Channeling Machine Runner ([phone]) and [facility] Sports Lawyer ([phone]) for any needed changes in the Safety Plan. Safety plan has been provided to interdepartmental care team.
--- NOTE | 2025-07-03 11:58 | PDOC.CMSAFE ---
Date of service: 07/03/25 Time of Service: 12:02 Care Management Safety Plan Status Status: Voluntary Reason for Wait Reason for Wait: Inpatient Admission Safety Plan Safety Plan: VOLUNTARY FOR INPATIENT PSYCHIATRIC STABILIZATION.? Patient is appropriate in all interactions since arriving at [facility]; Pt has demonstrated appropriate coping and communication skills, has articulated his or her needs and concerns and is fully engaged during staff interactions. Safety plan has been established with patient, and care team, to adhere to patient goals, identify restrictions based on behavioral status, address nutrition, and determine allowed personal belongings, tools for hygiene and personal care. Determine level of activity including ambulation, level of supervision, visitors, and determine privileges based on behaviors and level of engagement by pt. VOLUNTARY SAFETY PLAN: 1. Will remain on suicide precautions, in paper clothes 2. Will remain in Zone B under direct supervision of one-on-one staff at all times provided by [employer]; LUIS MANUEL, INTERDISCIPLINARY PROFESSOR hot metal mixer operator helper. 3. May have paper cups, plates, finger foods as well as a cardboard spoon with which to eat meals. 4. Follow [facility] Management of the Admitted Behavioral Health Patient policy. 5. Shower available in Zone B without restriction. 6. Personal belongings-soft items permitted at RN discretion. 7. Visitors- supportive visitors, at RN discretion. 8. Activities: soft cart items, hospital tablets (Netflix/Hooksett+/music) approved per RN discretion. 9.? Bathroom available in Zone B without restriction. 10. Phone: limited to [facility] cordless phone at RN discretion. Due to VOLUNTARY status, if patient wishes to leave [facility], staff will contact [facility] Crisis Screener ([phone]) and Consumer Sales Representative ([phone]) as soon as possible. In the event of elopement, notify [facility] Police ([phone]). Patient is currently voluntarily at [facility] and seeking inpatient admission when a bed becomes available. [facility] Frontline Senior Net C Developer will continue seeking placement. Please contact the Consumer Sales Representative ([phone]) and [facility] Senior Net C Developer ([phone]) for any needed changes in the Safety Plan. Safety plan has been provided to interdepartmental care team.
--- NOTE | 2025-07-03 12:30 | CMPROGNOTE_ITS ---
Date of service: 07/03/25 Time of Service: 12:30 Care Management Progress Note Progress Note Text Progress Note Text: CM huddled with [facility] esc Carl, RN Aidee, and also discussed the plan of care with ED propellant charge zone assemblerAKASH Claudio and RN dried yeast supervisor Jaquelin. Per report, Shaneka has been appropriate in interactions today; she ate well and took a shower. She remains voluntary, seeking inpatient psychiatric care. Shaneka was accepted by [facility] this afternoon, and was transported via [facility]. She was agreeable to this plan. CM will continue to follow. Social Determinants of Health Screening Will the Patient Participate in the Screening?: Declined to provide
--- NOTE | 2025-07-03 14:00 | PDOC.MHPN2 ---
Date of service: 07/03/25 Time of Service: 10:01 Mental Health Emergency Note Release [facility] release signed:: Yes Reason for Visit Ms prieto is a 44 year old single female who resides in [place], [place]. The client reports that she slept well and has eaten breakfast. Per previous assessments the client attempted to complete suicide via putting a hair clothes drier assembler in her bathtub on 07/01/25. The client reports that she is not utilizing any coping skills and reports feeling okay. The client is agreeing to go to treatment. The client presents with poor insight into her suicide attempt and minimizes it having stated that she feels fine and safe to go home but cannot identify a sprinkling truck driver for suicide or any changes to be made to prevent this from occurring again. When this was processed and discussed the client reports wanting in patient treatment. In the last 2 weeks has the pt presented for ES prior to today?: No Asssessment/Mental Status Appearance: Disheveled Attitude: Guarded Behavior: Unremarkable Speech: Soft and Slow Affect: Flat Mood: Stressed and Irritable Thought process: Poverty of content Hallucinations: No evidence Delusions: No evidence Attention: Unremarkable Perception: Not impaired Orientation: Fully orientated Memory: Intact Insight: Poor Judgement: Poor Neurovegetative Symptoms Sleep: No change Appetitie: No change Interests: No change Energy: No change Libido: Not applicable Impression Ms prieto is a 44 year old single female who resides in [place], [place]. The client reports that she slept well and has eaten breakfast. Per previous assessments the client attempted to complete suicide via putting a hair clothes drier assembler in her bathtub on 07/01/25. The client reports that she is not utilizing any coping skills and reports feeling okay. The client is agreeing to go to treatment. The client presents with poor insight into her suicide attempt and minimizes it having stated that she feels fine and safe to go home but cannot identify a sprinkling truck driver for suicide or any changes to be made to prevent this from occurring again. When this was processed and discussed the client reports wanting in patient treatment.? Plan/Disposition Recommended Disposition: Hospitalization facilities contacted. Plan: The client will wait for in patient treatment in the [facility] ED. Reports/communication Outcome discussed with: ED/Personnel
== END 2025-07-03 16:11 ==
PROVIDERS: Physician Assistant; Emergency Provider Emergency Medicine; PCP Family Medicine
DX: R45.851 Suicidal ideations (principal); F32.A Depression, unspecified; F17.290 Nicotine dependence, other tobacco product, uncomplicated
CPT/HCPCS: 00123; 80048; 80053; 80307; 82805; 82962; 99285; 80164; 80320; 80329; 81003; 81015; 84439; 84443; 85025; 87086; J3490

== ENCOUNTER 2025-08-16 08:36 | Emergency (ER) | payer MEDICAID, SELFPAY ==
--- NOTE | 2025-08-16 08:30 | RT.EKG_ITS ---
APPROVED REPORT Exam: Resting ECG Reason for Exam: dyspnea Patient Location: E HR:87 bpm ECG Measurements Heart Rate 87 AXIS [place] 143 P 41 QRSd 78 QRS 16 QT 366 T 39 QTc 441 Conclusion Sinus rhythm...normal P axis, V-rate 60- 99
[2025-08-16 08:42] VITALS: BP 146/85; PULSE 97; RESP 18; TEMP 36.5; O2SAT 97
[2025-08-16 08:51] VITALS: RESP 18
--- NOTE | 2025-08-16 09:04 | W.ED.GENAD ---
Discharge Plan Disposition Patient Disposition: Home Condition: Stable Discharge Details Clinical Impression: Shortness of breath, Fatigue Primary Care Provider: Antoni Ohara ED Provider: Dewey High Home Meds and New Rx's Prescriptions: New melatonin 1 mg tablet 1 mg PO HS PRN (Reason: sleep) Qty: 20 0RF Continued (DME) blood-glucose meter [FreeStyle Lite Meter] Kit See Rx Instructions .Route Qty: 1 0RF Rx Instructions: Check blood sugars daily. E11.9.Keep A1c below 7 (DME) FreeStyle Lite Strips Strip See Rx Instructions .Route Qty: 100 3RF Rx Instructions: Check blood sugars daily. DX: E11.9. Keep A1c below 7 (DME) lancets [Lancets,Ultra Thin] Misc See Rx Instructions .Route Qty: 100 3RF Rx Instructions: Check blood sugars daily. DX: E11.9.Keep A1c below 7. acetaminophen 500 mg capsule 1,500 mg PO Q6H PRN (Reason: pain) venlafaxine [Effexor XR] 75 mg capsule,extended release 24hr 75 mg PO DAILY Qty: 60 1RF aripiprazole 20 mg tablet 20 mg PO DAILY Qty: 90 3RF divalproex 500 mg tablet,delayed release (DR/EC) 1,000 mg PO BID Qty: 360 3RF topiramate 50 mg tablet See Rx Instructions .ROUTE .COMPLEX Qty: 28 6RF Dose Instruction: TAKE 1 TABLET BY MOUTH AT BEDTIME Rx Instructions: TAKE 1 TABLET BY MOUTH AT BEDTIME metformin 750 mg tablet extended release 24 hr 750 mg PO BID Qty: 60 6RF Rx Instructions: Take with food levothyroxine 75 mcg tablet See Rx Instructions .ROUTE .COMPLEX Qty: 90 3RF Dose Instruction: TAKE 1 TABLET BY MOUTH DAILY Rx Instructions: TAKE 1 TABLET BY MOUTH DAILY aripiprazole 5 mg tablet See Rx Instructions .ROUTE .COMPLEX Qty: 28 6RF Dose Instruction: TAKE 1 TABLET BY MOUTH DAILY Rx Instructions: TAKE 1 TABLET BY MOUTH DAILY No Action Rybelsus 3 mg tablet 3 mg PO DAILY 30 Days Qty: 30 1RF Discharge Instructions Instructions: Shortness of Breath, Adult ED, Fatigue ED Additional Instructions: Please take your medications as prescribed. Please follow-up with your primary care physician. Return to the emergency department immediately for any worsening or new concerning symptoms. Stand Alone Forms: Portal Information Discharge Data Discharge Date/Time-TO BE ENTERED AT DEPARTURE: 08/16/25 13:11 HPI General Date/Time Provider Initiated Documentation: 08/16/25 08:38. Limitations to Documentation: no limitations. Information obtained by: patient. HPI Narrative: HISTORY OF PRESENT ILLNESS This is a 44-year-old female with a history of hypothyroidism, diabetes, schizoaffective disorder, nonalcoholic steatohepatitis, and POTS presenting with an episode of shortness of breath. The patient reports experiencing shortness of breath after preparing breakfast this morning. She noted hand swelling and heavy breathing. She describes her breathing as heavy and mentions having a dry cough, which she attributes to smoking and exposure to cold weather. Additionally, she reports generalized puffiness in her left hand that subsides when lying down but recurs upon standing. These symptoms have been present since today. The patient experienced two episodes of nausea this morning and reports significant fatigue. She has been experiencing insomnia for the past 2.5 days, the cause of which is unknown to her. Despite attempts to sleep, she has been unsuccessful and does not have melatonin or trazodone at home. She has previously found relief with melatonin. The patient has missed two doses of her medication due to unavailability in her blister pack. Related Data Home Medications ?Medication ?Instructions ?Recorded ?Confirmed blood sugar diagnostic (FreeStyle #100 ea 08/09/24 08/19/25 Lite Strips) blood-glucose meter (FreeStyle #1 ea 08/09/24 08/19/25 Lite Meter kit) lancets (Lancets,Ultra Thin) #100 ea 08/09/24 08/19/25 aripiprazole 20 mg tablet 20 mg PO DAILY #90 tabs 01/17/25 08/19/25 divalproex 500 mg tablet,delayed 1,000 mg (2 x 500 mg) PO BID #360 01/17/25 08/19/25 release tabs metformin 750 mg tablet,extended 750 mg PO BID #60 tabs 03/26/25 08/19/25 release 24 hr topiramate 50 mg tablet See Rx Instructions .Route 03/26/25 08/19/25 .COMPLEX #28 tabs levothyroxine 75 mcg tablet See Rx Instructions .Route 04/23/25 08/19/25 .COMPLEX #90 tabs acetaminophen 500 mg capsule 1,500 mg PO Q6H PRN pain 05/20/25 08/19/25 venlafaxine 75 mg capsule,extended 75 mg PO DAILY #60 caps 07/01/25 08/19/25 release 24 hr (Effexor XR) aripiprazole 5 mg tablet See Rx Instructions .Route 07/30/25 08/19/25 .COMPLEX #28 tabs melatonin 1 mg tablet 1 mg PO HS PRN sleep #20 tabs 08/16/25 08/19/25 semaglutide 3 mg tablet (Rybelsus) 3 mg PO DAILY 30 days #30 tabs 08/22/25 Previous Rx's ?Medication ?Instructions ?Recorded blood sugar diagnostic (FreeStyle #100 ea 08/09/24 Lite Strips) blood-glucose meter (FreeStyle #1 ea 08/09/24 Lite Meter kit) lancets (Lancets,Ultra Thin) #100 ea 08/09/24 aripiprazole 20 mg tablet 20 mg PO DAILY #90 tabs 01/17/25 divalproex 500 mg tablet,delayed 1,000 mg (2 x 500 mg) PO BID #360 01/17/25 release tabs metformin 750 mg tablet,extended 750 mg PO BID #60 tabs 03/26/25 release 24 hr topiramate 50 mg tablet See Rx Instructions .Route 03/26/25 .COMPLEX #28 tabs levothyroxine 75 mcg tablet See Rx Instructions .Route 04/23/25 .COMPLEX #90 tabs venlafaxine 75 mg capsule,extended 75 mg PO DAILY #60 caps 07/01/25 release 24 hr (Effexor XR) aripiprazole 5 mg tablet See Rx Instructions .Route 07/30/25 .COMPLEX #28 tabs melatonin 1 mg tablet 1 mg PO HS PRN sleep #20 tabs 08/16/25 semaglutide 3 mg tablet (Rybelsus) 3 mg PO DAILY 30 days #30 tabs 08/22/25 Allergies Allergy/AdvReac Type Severity Reaction Status Date / Time codeine Allergy Mild unknown Verified 08/19/25 13:19 General Stated Complaint: SOB CECILIA: 3 Review of Systems All systems reviewed & are unremarkable except as noted in HPI and below Constitutional Constitutional: Denies fever(s) Cardiovascular Cardiovascular: Denies chest pain Exam Const General: cooperative Orientation: alert and awake HENWY Head: normocephalic Mouth: moist mucous membranes Eyes Conjunctivae: normal conjunctivae Sclera: normal sclerae Neck Neck: trachea midline and supple Resp Auscultation: clear to auscultation bilaterally, no rales, no rhonchi and no wheezes Cardio Jugular venous pressure: no JVD Rate: regular rate and not tachycardic Rhythm: regular rhythm GI Palpation: soft, not firm, no guarding, no masses, not rigid and nontender Skin General skin exam: no rashes or lesions noted Neuro General: patient alert, patient awake, patient oriented x3 and tone normal Extrem General: no calf tenderness and no edema Left upper extremity: wrist Details: normal to inspection and hand Details: normal to inspection Psych Appearance: grossly normal Mental Status: mental status grossly normal Speech and Movement: speech and movement normal Affect: blunted Course Vital Signs Vital signs: Vital Signs Temperature 36.5 C 08/16/25 08:42 Pulse 97 H 08/16/25 08:42 Respiratory Rate 18 08/16/25 08:42 Blood Pressure 146/85 H 08/16/25 08:42 Pulse Oximetry 97 08/16/25 08:42 Temperature 36.5 C 08/16/25 08:42 Temperature Source Oral 08/16/25 08:42 Pulse 97 H 08/16/25 08:42 Respiratory Rate 18 08/16/25 08:51 Respiratory Effort Normal, Non-Labored, Short of Breath 08/16/25 08:51 Respiratory Depth Normal 08/16/25 08:51 Respiratory Pattern Normal 08/16/25 08:51 Blood Pressure 146/85 H 08/16/25 08:42 Blood Pressure Position Sitting 08/16/25 08:42 Pulse Oximetry 97 08/16/25 08:42 Oxygen Delivery Method Room Air 08/16/25 08:42 Oxygen Flow Rate 0 08/16/25 08:42 Medical Decision Making ASSESSMENT AND PLAN Initial Assessment: 44-year-old female with multiple medical problems including hypothyroidism, diabetes, schizoaffective disorder, nonalcoholic steatohepatitis, and POTS. Chief complaint of shortness of breath after making breakfast, accompanied by heavy breathing, nausea, and fatigue. Noted noncompliance with medication regimen for 2 days. Differential Diagnosis: - Consider pneumonia - Consider pulmonary embolism - Medication noncompliance: Missed 2 doses, not in blister pack. - Consider hypothyroidism - Consider pneumothorax ED Course: - Considered arrhythmia. EKG was reviewed and interpreted by me: Please report, normal axis, sinus rhythm 87 bpm, nondiagnostic. - Labs reviewed: ddimer negative - Chest x-ray reviewed interpreted by radiology: No acute abnormality. - All results discussed with the patient. Patient remained stable. Plan for discharge with outpatient follow-up. Usual and customary discharge instructions reviewed. Clinical Impression: - Shortness of breath - Fatigue - Medication noncompliance Patient Education: Advised to try melatonin for sleep. This document was written with the assistance of TARUN Hansen. The patient consented to its use. Quality:SDOH Health Related Social Needs: Health related social needs risk of homeless daily activities lonely/isolated Health related social needs details states she has no problems with housing, heating or food. her does problems with depression and mental health PFS All Active Problems (Updated 08/16/25 @ 12:54 by Dewey High MD) Fatigue (Acute) Shortness of breath (Acute) Calcific tendinitis of left shoulder (Acute) Shoulder pain, left (Acute) Hypothyroidism (acquired) (Chronic) Overdose (Acute) Metformin overdose (Acute) Depression (Chronic) Cataracts, bilateral (Acute) Hypersomnolence (Acute) Increased ammonia level (Acute) Accidental overdose of valproate sodium (Acute) Adverse effect of beta-karina (Acute) Accidental metformin overdose (Acute) Joint stiffness (Acute) Bipolar disorder (Chronic) Right hip pain (Acute) Fullness in ear (Acute) sensation of needing ear canals stitch cleaner (but usually clear) defect (Acute) Low back pain (Acute) Shoulder pain (Acute) Macrocytic anemia (Acute) Hypoalbuminemia due to protein-calorie malnutrition (Acute) 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 states she does not have any thoughts of harming herself or others. Schizoaffective disorder Deviated nasal septum Trigeminal neuralgia of left side of face (01/03/18) Type 2 diabetes mellitus History of hypothyroidism Drug overdose, intentional Surgical History S/p breast implant removal Sep 2019 S/P breast implant, left H/O pilonidal cyst S/P foot surgery Ligation of fallopian tube Family History Mother Diabetes Father Heart disease Social History Smoking/Tobacco Use Status: Current every day Tobacco Type: e-cigarettes Quit status: considering quitting Smoking risk assessment performed?: Yes Alcohol Intake: never Drug use: Current Sobriety Substance use type: does not use Details: no recent use of e-ciggarettes Adopted: No Caregiver/Support person: No Foster care: No Household members: none Housing: apartment Number of Children: 2 number of grandchildren: 0 Education Level: college Details: Some classes - no degree Do you need help understanding health information?: Never current occupation: Disabled Pets and animals: No (1) Sexually active: No Do you think of yourself as: straight/heterosexual Current gender identity: female What is your relationship status?: How often do you talk on the phone with friends or family?: once per week How often do you get together with friends or relatives?: never Do you belong to any clubs or organized social groups?: no Panel score (0-1 are the most socially isolated patients): 0 What type of physical activity do you participate in: walking Duration: 15-30 minutes/day Frequency: daily Lauren/Jehovah'S Witness: Rastafarian Special lauren needs: No Seatbelt use: always Helmet use: Yes Drive intox or ride w/intox petrol 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 Date GA/Weeks # Preg Succ Route Wgt Sex Labor Lgth Anesthesia Location Prov Complic 08/30/01 40 No Yes vaginal Female 03/25/02 40 No Yes vaginal Male Delivery Date: 08/30/01 Last Updated by: Aimee Parekh- [facility] Delivery Date: 03/25/02 Last Updated by: Aimee Enciso- [facility]
[2025-08-16 09:50] LABS: Abs Immature Grans 0.07 10^3/uL (0.0-0.06); HCT 38.1 % (36.0-46.0); HGB 13.4 g/dL (11.2-15.7); Immature Grans % 1.1 %; MCH 33.0 pg (27.0-33.0); MCHC 35.2 % (32.0-36.0); MCV 94 fL (80-95); MPV 9.9 fL (8.0-11.0); Platelet Count 241 10^3/uL (130-400); RBC 4.06 10^6/uL (3.93-5.22); RDW 11.6 % (11.7-14.6); RDW-SD 39.9 fL; WBC 6.09 10^3/uL (4.4-10.8)
[2025-08-16 09:57] LABS: Magnesium 2.0 mg/dL (1.6-2.6)
[2025-08-16 10:02] LABS: Troponin I < 3 ng/L (<35)
[2025-08-16 10:08] LABS: ALT 26 U/L (10-49); AST 24 U/L (<34); Albumin 4.3 g/dL (3.2-5.0); Alkaline Phosphatase 251 U/L (46-116); Anion Gap 9.2 mmol/L (3-11); BUN 13 mg/dL (9-23); Bilirubin, Total 0.2 mg/dL (0.2-1.2); CO2 24.8 mmol/L (20.0-31.0); Calcium 9.3 mg/dL (8.3-10.6); Chloride 103 mmol/L (98-107); Glucose 436 mg/dL (74-106); Potassium 5.2 mmol/L (3.5-5.1); Sodium 137 mmol/L (136-145); Total Protein 7.2 g/dL (5.7-8.2)
[2025-08-16 10:56] LABS: D-Dimer 341 ng/mlFEU (<500)
--- NOTE | 2025-08-16 11:00 | DI.RAD_ITS ---
Exam(s) XR CHEST 2V PA LATERAL EXAM: XR CHEST 2V PA LATERAL CLINICAL HISTORY: sob TECHNIQUE: 2D digital imaging was performed. Two views. COMPARISON: CR XR PORTABLE CHEST AP from 06/14/2024 FINDINGS: HEART: Normal size. Aorta: Not dilated. PULMONARY VASCULATURE: Normal. MEDIASTINUM: Unremarkable. LUNGS: Clear. PLEURAL SPACE: No pleural effusion or pneumothorax. BONE:Unremarkable for age. SOFT TISSUES: Unremarkable. IMPRESSION: No acute abnormality. DATA REPOSITORY: RADIATION DOSE DELIVERED:
[2025-08-16 11:31] LABS: TSH (W/Ref FT4) 7.68 uIU/mL (0.55-4.78)
[2025-08-16 12:13] LABS: COVID-19 PCR Negative (Negative); RSV PCR Negative (Negative)
[2025-08-16 13:10] VITALS: BP 142/97; PULSE 104; RESP 16; O2SAT 97
== END 2025-08-16 13:11 | disposition home or self-care (01) ==
PROVIDERS: Emergency Provider Student in an Organized Health Care Education/Training Program; PCP Family Medicine
DX: R06.02 Shortness of breath (principal); R53.83 Other fatigue; R11.0 Nausea; Z59.811 Housing instability, housed, with risk of homelessness; Z60.8 Other problems related to social environment
CPT/HCPCS: 99284 ×2; 36415; 80053; 87637; 93005; 71046; 83735; 83880; 84439; 84443; 84484; 85025; 85379; 93010

== ENCOUNTER 2025-08-19 18:23 | Outpatient (REF) | payer MEDICAID, SELFPAY | END 2025-08-19 18:24 | disposition home or self-care (01) | LOC: LBN 18:23 | PROVIDERS: PCP Family Medicine; Visit Provider Family Medicine | DX: Z01.818 Encounter for other preprocedural examination (principal) | CPT/HCPCS: 80323; 82985; 84443 ==